=== PATIENT | female | born 1950 | race Caucasian/White ===

== ENCOUNTER → 2017-10-19 15:05 | Outpatient (CLI) | payer MEDICARE, SELFPAY ==
[2017-10-19 15:20] LABS: HCT 38.1 % (36.0-46.0); HGB 13.3 g/dL (12.0-15.5); Mean Corp. HGB Concentration 34.9 g/dL (32.0-36.0); Mean Corpuscular Volume 94.5 fL (80-95); Mean Platelet Volume 9.6 fL (8.0-11.0); Platelet Count 104 x1000/uL (130-400); RBC 4.03 m/cumm (4.00-5.20); RBC Distribution Width 13.3 % (11.7-14.6); White Blood Cell Count 7.25 k/cumm (4.4-10.8)
[2017-10-19 16:27] LABS: ESR 38 MM/HR (0-30)
[2017-10-19 16:48] LABS: ALT 22 U/L (12-78); AST 25 U/L (15-37); Albumin 3.8 g/dL (3.4-5.0); Alkaline Phosphatase 51 U/L (46-116); Anion Gap 9.6 mmol/L (3-11); BUN 12 mg/dL (7-18); Bilirubin, Total 0.5 mg/dL (0.2-1.0); C-Reactive Protein 0.05 mg/dL (0.0-0.3); CO2 26.4 mmol/L (21.0-32.0); CREATININE 0.92 mg/dL (0.55-1.02); Calcium 9.4 mg/dL (8.5-10.1); Chloride 103 mmol/L (98-107); Glucose 113 mg/dL (70-100); Potassium 3.9 mmol/L (3.5-5.1); Sodium 139 mmol/L (136-145); Total Protein 8.2 g/dL (6.4-8.2)
== END ==
PROVIDERS: PCP Physician Assistant Medical; Visit Provider Internal Medicine Rheumatology
DX: L40.50 Arthropathic psoriasis, unspecified (principal); Z79.899 Other long term (current) drug therapy
CPT/HCPCS: 36415; 80053; 85027; 85652; 86140

== ENCOUNTER 2017-11-02 11:27 | Outpatient (REF) | payer MEDICARE, SELFPAY | END 2017-11-02 11:47 | LOC: NCHCN 11:27 | PROVIDERS: PCP Physician Assistant Medical; Visit Provider Physician Assistant Medical | DX: R35.0 Frequency of micturition (principal) | CPT/HCPCS: 87077; 87086; 87186 ==

== ENCOUNTER 2018-01-27 12:12 | Emergency (ER) | payer MEDICARE, SELFPAY ==
[2018-01-27] VITALS (36 sets, daily range): BP systolic 109–148; BP diastolic 57–112; PULSE 79–99; RESP 10–32; TEMP 36.5; O2SAT 95–99
--- NOTE | 2018-01-27 12:18 | W.ED.GENAD ---
Discharge Plan Disposition Patient Disposition: AGAINST MEDICAL ADVICE Condition: Stable Discharge Details Chief Complaint: Chest Pain Clinical Impression: Chest pain Primary Care Provider: Ester Hu ED Provider: Wilder Ferreira Home Meds and New Rx's Prescriptions: Continue metformin 500 MG tablet 1,000 mg PO DAILY RF: 0 lovastatin 40 MG tablet 40 mg PO DAILY RF: 0 tramadol 50 MG tablet 50 mg PO DIRECTED RF: 0 sennosides-docusate sodium [Senokot-S] 1 EACH tablet 1 tab-cap PO BID RF: 0 blood sugar diagnostic [FreeStyle Lite Strips] 1 EACH strip 1 ea Miscellaneous DIRECTED RF: 0 levothyroxine [Levoxyl] 75 MCG tablet 0.075 mcg PO DAILY RF: 0 paroxetine HCl [Paxil] 20 MG tablet 20 mg PO DAILY RF: 0 lansoprazole 15 MG capsule,delayed release(DR/EC) 30 mg PO BID RF: 0 nitroglycerin [Nitrostat] 0.4 MG tablet, sublingual 0.4 mg Sublingual ONCE RF: 0 aspirin [Aspirin Low-Strength] 81 MG tablet,chewable 81 mg PO DAILY RF: 0 FREESTYLE GLUCOMETER RF: 0 blood sugar diagnostic [FreeStyle Lite Strips] 1 EACH strip 1 ea Miscellaneous TID RF: 0 calcium carbonate-vitamin D3 [Calcium 500 + D] 1 EACH tablet 1 ea PO DAILY RF: 0 cholecalciferol (vitamin D3) 1,000 UNIT capsule 1,000 unit PO DAILY RF: 0 clobetasol-emollient 15 GM cream 15 gm Topical twice a week Qty: 1 RF: 5 levetiracetam [Keppra] 250 MG tablet 250 mg PO BID Qty: 180 RF: 3 gabapentin 100 MG capsule 300 mg PO TID RF: 0 insulin aspart U-100 [Novolog Flexpen U-100 Insulin] 300 UNITS/3 ML insulin pen SQ DIRECTED RF: 0 adalimumab [Humira Pen] 40 MG/0.8 ML pen injector kit 40 mg SQ Q14D RF: 0 Discharge Instructions Instructions: Chest Pain (ED) Additional Instructions: Please return immediately to the emergency department if you develop any new or worsening symptoms or if you become otherwise concerned. You have elected to leave the emergency department AGAINST MEDICAL ADVICE. The risks of doing so upper and permanent disability. If you change your mind, you may return to the emergency department at any time. It is extremely important that you make an appointment to be seen by near eastern archaeology lecturer and by your primary care doctor as soon as possible in follow-up for this visit. Referrals: Ester Hu PA [Primary Care Provider] - Jose Loja MD [MD CONSULTING PHYSICIAN] - Discharge Data Discharge Date/Time-TO BE ENTERED AT DEPARTURE: 01/27/18 16:55 Medical Decision Making <Milly Latham MD - Last Filed: 01/28/18 22:43> Shereen Vega is a 67-year-old woman with history of rheumatoid arthritis, diabetes, hypertension, high cholesterol, hypothyroidism presenting to the emergency department with intermittent exertional chest pain over the past week, currently pain-free. On exam patient is well and nontoxic appearing. Benign cardiopulmonary exam. No peripheral edema. Concern for ACS versus PE versus muscular skeletal versus other. Exam/history not consistent with acute aortic pathology, sepsis. Plan for EKG, chest x-ray, screening labs, telemetry. Patient took aspirin this morning, will hold for now. EKG and chest x-ray okay. Labs show magnesium 1.5. Patient reports that she has chronically low magnesium and does not want to take supplementation at this point. 15:00: Patient has had no episodes of chest pain since being in the emergency department. She reports that she feels in her usual state of health. Given patient with significant risk factors and concerning nature of pain, plan for admission for further evaluation. Patient reports that she does not like to be hospitalized and declines admission. I had a lengthy discussion with patient regarding risks of leaving AGAINST MEDICAL ADVICE including and permanent disability. Patient continues to decline admission. She does agree to second troponin and second EKG. Patient signed out to Viktor Ferreira at time of shift change with second troponin pending, anticipate discharge home AGAINST MEDICAL ADVICE. I had a lengthy discussion with the patient prior to signout regarding return to emergency department precautions, that she may return to the emergency department at any time should she change her mind, and importance of outpatient follow-up with her PCP and cardiology for further evaluation. She continues to wish to leave the emergency department AGAINST MEDICAL ADVICE and verbalized understanding of the risks of and permanent disability. She is amenable to the outpatient follow-up plan. Patient placed on care management list for outpatient follow-up with cardiology and primary care doctor soon as possible. Medical Records Medical records reviewed: Yes I reviewed the patient's medical records. Imaging Data Radiologic Study: Attestation: I personally reviewed and interpreted this imaging study as follows: Radiologist's impression: PA AND LATERAL CHEST: Comparison is made with 09/06/17. The heart size is normal. The aorta is mildly tortuous. The lungs appear clear. No infiltrate, effusion or pneumothorax is seen. The visualized portions of the upper abdomen are unremarkable. The spine shows degenerative disc changes. IMPRESSION: No acute abnormality. Lab Data Lab results reviewed: Yes I reviewed the patient's lab results. Laboratory Tests Range/Units 01/27/18 01/27/18 01/27/18 12:45 12:45 12:45 WBC (4.4-10.8) k/cumm 7.14 RBC (4.00-5.20) m/cumm 4.26 Hgb (12.0-15.5) g/dL 14.1 Hct (36.0-46.0) % 40.8 MCV (80-95) fL 95.8 H MCH (27.0-33.0) pg 33.1 H MCHC (32.0-36.0) g/dL 34.6 RDW (11.7-14.6) % 13.7 Plt Count (130-400) x1000/uL 102 L MPV (8.0-11.0) fL 10.1 Immature Gran % See Differential Neutrophils % 38.0 Lymphocytes % 33.0 Monocytes % 4.0 Eosinophils % 20.0 Basophils % 1.0 Absolute Neutrophils (1.2-6.7) k/cumm 2.78 Band Neutrophils % 1.0 Absolute Lymphocytes (1.2-3.4) k/cumm 2.57 Absolute Monocytes (0.11-0.7) k/cumm 0.29 Absolute Eosinophils (0.0-0.7) k/cumm 1.43 H Absolute Basophils (0.0-0.2) k/cumm 0.07 Differential Comment Manual differential Atypical Lymphocytes 3.0 D-Dimer (<500) ng/mlFEU 266 Sodium (136-145) mmol/L 141 Potassium (3.5-5.1) mmol/L 3.8 Chloride (98-107) mmol/L 102 Carbon Dioxide (21.0-32.0) mmol/L 31.3 Anion Gap (3-11) mmol/L 7.7 BUN (7-18) mg/dL 14 Creatinine (0.55-1.02) mg/dL 0.75 Estimated GFR/1.73 m2 (mL/min/1.73m2) >= 60.00 Glucose (70-100) mg/dL 119 H Calcium (8.5-10.1) mg/dL 9.5 Magnesium (1.8-2.4) mg/dL Total Bilirubin (0.2-1.0) mg/dL 0.4 AST (15-37) U/L 19 ALT (12-78) U/L 23 Alkaline Phosphatase (46-116) U/L 52 Troponin I (0.00-0.06) ng/mL < 0.02 Total Protein (6.4-8.2) g/dL 8.5 H Albumin (3.4-5.0) g/dL 3.9 TSH (0.358-3.74) uIU/mL 3.41 Range/Units 01/27/18 12:45 WBC (4.4-10.8) k/cumm RBC (4.00-5.20) m/cumm Hgb (12.0-15.5) g/dL Hct (36.0-46.0) % MCV (80-95) fL MCH (27.0-33.0) pg MCHC (32.0-36.0) g/dL RDW (11.7-14.6) % Plt Count (130-400) x1000/uL MPV (8.0-11.0) fL Immature Gran % Neutrophils % Lymphocytes % Monocytes % Eosinophils % Basophils % Absolute Neutrophils (1.2-6.7) k/cumm Band Neutrophils % Absolute Lymphocytes (1.2-3.4) k/cumm Absolute Monocytes (0.11-0.7) k/cumm Absolute Eosinophils (0.0-0.7) k/cumm Absolute Basophils (0.0-0.2) k/cumm Differential Comment Atypical Lymphocytes D-Dimer (<500) ng/mlFEU Sodium (136-145) mmol/L Potassium (3.5-5.1) mmol/L Chloride (98-107) mmol/L Carbon Dioxide (21.0-32.0) mmol/L Anion Gap (3-11) mmol/L BUN (7-18) mg/dL Creatinine (0.55-1.02) mg/dL Estimated GFR/1.73 m2 (mL/min/1.73m2) Glucose (70-100) mg/dL Calcium (8.5-10.1) mg/dL Magnesium (1.8-2.4) mg/dL 1.5 L Total Bilirubin (0.2-1.0) mg/dL AST (15-37) U/L ALT (12-78) U/L Alkaline Phosphatase (46-116) U/L Troponin I (0.00-0.06) ng/mL Total Protein (6.4-8.2) g/dL Albumin (3.4-5.0) g/dL TSH (0.358-3.74) uIU/mL ECG Data Attestation: I personally reviewed and interpreted this ECG (s) as follows: Interpretation: Normal sinus rhythm at 93 with left axis, no STEMI, nondiagnostic EKG EKG #2 shows normal sinus rhythm at 86 with borderline left axis, no STEMI, unchanged from prior HPI <Milly Latham MD - Last Filed: 01/28/18 22:43> General Mode of arrival: ambulatory. Date/Time Provider Initiated Documentation: 01/27/18 12:18. Limitations to Documentation: no limitations. Information obtained by: patient, family, RN notes reviewed and old records reviewed. HPI Narrative: Shereen Vega is a 67-year-old woman with history of seizure disorder, rheumatoid arthritis, hyperlipidemia, hypothyroidism, yea-xapuoth-ousmuuksy diabetes, hypertension presenting to the emergency department chest pain. Patient reports that over the past week she has had new exertional chest pain. She reports the pain is a burning sensation over her left chest that does not radiate. It is improved with rest. She reports that she has had a few episodes that began at rest and resolved spontaneously. Exertion consists of walking in her home. Patient reports that she does have some mild shortness of breath that accompanies to chest pain. She does not have shortness of breath or chest pain currently in the emergency department. She reports chronic pain from her rheumatoid arthritis that is unchanged and mild dry cough over the past few days; there are no other new symptoms. Patient reports that she recently drove to [place], but denies any other travel. Has been eating and drinking as usual. No recent illnesses. Patient had a cardiac catheterization in 2009 that showed 80% stenosis of a small vessel that was not stented. She also had a stress test in 2015 showing moderate risk for cardiac disease. Patient scheduled PCP appointment for this chest pain, and was sent from there to the emergency department. Related Data Home Medications Medication Instructions Recorded Confirmed lovastatin 40 mg PO DAILY tab-cap NS 05/16/13 01/27/18 metformin 1,000 mg PO DAILY tab-cap NS 05/16/13 01/27/18 tramadol 50 mg PO DIRECTED NS 05/16/13 01/27/18 gabapentin 300 mg PO TID 06/15/13 01/27/18 Freestyle Glucometer 05/22/14 07/02/14 aspirin [Aspirin Low-Strength] 81 mg PO DAILY tab-cap 05/22/14 01/27/18 blood sugar diagnostic [FreeStyle strip 05/22/14 09/06/17 Lite Strips] lansoprazole 30 mg PO BID tab-cap 05/22/14 01/27/18 levothyroxine [Levoxyl] 0.075 mcg PO DAILY tab-cap 05/22/14 01/27/18 nitroglycerin [Nitrostat] 0.4 mg SUBLINGUAL ONCE tab-cap 05/22/14 01/27/18 paroxetine HCl [Paxil] 20 mg PO DAILY tab-cap 05/22/14 01/27/18 sennosides-docusate sodium 1 tab-cap PO BID tab-cap 05/22/14 01/27/18 [Senokot-S] blood sugar diagnostic [FreeStyle strip 06/12/14 09/06/17 Lite Strips] adalimumab [Humira Pen] 40 mg SQ Q14D 05/03/16 01/27/18 insulin aspart U-100 [Novolog See Protocol SQ DIRECTED 05/03/16 01/27/18 Flexpen U-100 Insulin] calcium carbonate-vitamin D3 1 ea PO DAILY 09/02/16 01/27/18 [Calcium 500 + D] cholecalciferol (vitamin D3) 1,000 unit PO DAILY 10/01/16 01/27/18 clobetasol-emollient 15 gm TOPICAL twice a week #1 tube 01/01/17 01/27/18 levetiracetam [Keppra] 250 mg PO BID #180 tab 07/26/17 01/27/18 Previous Rx's Medication Instructions Recorded clobetasol-emollient 15 gm TOPICAL twice a week #1 tube 01/01/17 levetiracetam [Keppra] 250 mg PO BID #180 tab 07/26/17 Allergies Allergy/AdvReac Type Severity Reaction Status Date / Time Penicillins Allergy Unknown Unverified 09/06/17 14:51 quinine Allergy Unknown Unverified 09/06/17 14:51 sulfasalazine Allergy Unknown Unverified 09/06/17 14:51 erythromycin base AdvReac Intermediate VOMITING Unverified 09/06/17 14:51 hydroxychloroquine sulfate AdvReac Intermediate VOMITING Unverified 09/06/17 14:51 [From Plaquenil] Review of Systems <Milly Latham MD - Last Filed: 01/28/18 22:43> Review of Systems Constitutional: denies fevers Eyes: denies eye pain ENT: denies facial pain, dental pain, sore throat Cardiovascular: denies edema, reports chest pain Respiratory: denies cough, reports SOB GI: denies abdominal pain, vomiting, diarrhea : denies flank pain MSK: denies back pain, neck pain, reports chronic arthralgias Skin: denies rash Neuro: denies headaches, lightheadedness, weakness Exam <Milly Latham MD - Last Filed: 01/28/18 22:43> Narrative Exam Narrative: Constitutional: well and [id number], pleasant, conversing normally HENT: head atraumatic, normocephalic normal inspection, mucous membranes moist Eyes: conjunctiva normal, sclera normal, pupils 3mm b/l Neck: no stridor, normal ROM, trachea midline Chest: normal inspection Resp: normal work of breathing, LCTAB Cardio: normal rate, normal rhythm, no murmur appreciated GI: abdomen soft, non-tender, non-distended Back: normal inspection, no rash Skin: warm, dry, normal color, no rash Neuro: alert, not altered, grossly non-focal, normal tone Ext: no edema Psych: normal mood, normal affect, normal behavior Sign Out <Milly Latham MD - Last Filed: 01/28/18 22:43> Sign Out Data: Sign Out Comment: Patient signed out to delay any with second troponin pending, anticipate discharge to home AGAINST MEDICAL ADVICE based on my repeated discussion with the patient, however patient has verbalized understanding that she may change her mind at any time and decide to stay for admission. Last updated by Milly Latham MD at 01/27/18 15:47 Post-Handoff Eval: Review of second troponin also shows no elevation. Thoroughly discussed with patient recommendation to have her admitted due to high risk cardiac pain which she again stated that she would prefer to go home and follow-up on outpatient basis. Previous provider ordered outpatient stress testing and patient was again informed that she may return at any point for any new or significant worsening of symptoms which she denies any change in her condition in the emergency department here. After thorough discussion of need to return patient stated she was ready to be discharged. Patient signed AMA paperwork. After discussion of diagnosis and plan of care patient has no further needs, questions, or concerns and states clear understanding to return to the emergency department for any worsening symptoms.
--- NOTE | 2018-01-27 12:35 | DI.RAD_ITS ---
SYMPTOM/DIAGNOSIS: CHEST PAIN PA AND LATERAL CHEST: Comparison is made with 09/06/17. The heart size is normal. The aorta is mildly tortuous. The lungs appear clear. No infiltrate, effusion or pneumothorax is seen. The visualized portions of the upper abdomen are unremarkable. The spine shows degenerative disc changes. IMPRESSION: No acute abnormality.
[2018-01-27 13:06] LABS: HCT 40.8 % (36.0-46.0); HGB 14.1 g/dL (12.0-15.5); Mean Corp. HGB Concentration 34.6 g/dL (32.0-36.0); Mean Corpuscular Hemoglobin 33.1 pg (27.0-33.0); Mean Corpuscular Volume 95.8 fL (80-95); Mean Platelet Volume 10.1 fL (8.0-11.0); Platelet Count 102 x1000/uL (130-400); RBC 4.26 m/cumm (4.00-5.20); RBC Distribution Width 13.7 % (11.7-14.6); White Blood Cell Count 7.14 k/cumm (4.4-10.8)
[2018-01-27 13:16] LABS: Magnesium 1.5 mg/dL (1.8-2.4)
[2018-01-27 13:29] LABS: Absolute Basophil Count 0.07 k/cumm (0.0-0.2); Absolute Eosinophil Count 1.43 k/cumm (0.0-0.7); Absolute Lymphocyte Count 2.57 k/cumm (1.2-3.4); Absolute Monocyte Count 0.29 k/cumm (0.11-0.7); Absolute Neutrophil Count 2.78 k/cumm (1.2-6.7); Diff Comment Manual Differential
[2018-01-27 13:34] LABS: ALT 23 U/L (12-78); AST 19 U/L (15-37); Albumin 3.9 g/dL (3.4-5.0); Alkaline Phosphatase 52 U/L (46-116); Anion Gap 7.7 mmol/L (3-11); BUN 14 mg/dL (7-18); Bilirubin, Total 0.4 mg/dL (0.2-1.0); CO2 31.3 mmol/L (21.0-32.0); CREATININE 0.75 mg/dL (0.55-1.02); Calcium 9.5 mg/dL (8.5-10.1); Chloride 102 mmol/L (98-107); Glucose 119 mg/dL (70-100); Potassium 3.8 mmol/L (3.5-5.1); Sodium 141 mmol/L (136-145); TSH (W/Ref FT4) 3.41 uIU/mL (0.358-3.74); Total Protein 8.5 g/dL (6.4-8.2)
[2018-01-27 13:35] LABS: Troponin I < 0.02 ng/mL (0.00-0.06)
[2018-01-27 13:39] LABS: D-Dimer 266 ng/mlFEU (<500)
[2018-01-27 16:17] LABS: Troponin I < 0.02 ng/mL (0.00-0.06)
== END 2018-01-27 16:55 | disposition left against medical advice (07) ==
PROVIDERS: Student in an Organized Health Care Education/Training Program; Emergency Provider Nurse Practitioner Family; PCP Physician Assistant Medical
DX: R07.9 Chest pain, unspecified (principal); I10 Essential (primary) hypertension; E11.9 Type 2 diabetes mellitus without complications; Z79.4 Long term (current) use of insulin; Z53.29 Procedure and treatment not carried out because of patient's decision for other reasons
CPT/HCPCS: 36415; 80053; 93005; 99284; 71046; 83735; 84443; 84484; 85025; 85379; 93010

== ENCOUNTER 2018-01-31 00:08 | Outpatient (CLI) | payer MEDICARE, SELFPAY ==
--- NOTE | 2018-01-31 08:15 | MERGEMPI_ITS ---
*[facility]* *[facility]* [address] [place] [address] Myocardial Perfusion Imaging - SPECT Regadenoson Date of study: 01/31/2018 *PATIENT PRESENTATION* Height: 152.4cm (60in) Blood Pressure: Weight: 53.2kg (117lb) BSA: 1.51m^2 Referring physician: Guanako Stovall MD Ordering physician: Milly Latham Impressions: Normal perfusion by Tc99m Sestamibi Imaging. Summary: 1. Myocardial perfusion imaging: No myocardial perfusion defects noted. 2. The calculated left ventricular ejection fraction after stress: 78%. No left ventricular regional motion abnormality. Indication: R07.9. History: Patient's presenting symptoms: asymptomatic. REASON FOR VISIT: PATIENT PRESENTED TO THE EMERGENCY ROOM ON 01/27/18 WITH COMPLAINTS OF NEW EXERTIONAL CHEST PAIN OVER THE PAST WEEK. PAIN IS DESCRIBED 3/10 NONRADIATING BURNING/TIGHTNESS SENSATION OVER CHEST WHILE WALKING IN HER HOUSE OR LIFTING, RESOLVING WITH REST AFTER 5-10 MINUTES. CHEST PAIN IS ASSOCIATED WITH MILD SHORTNESS OF BREATH. TROPONINS NEGATIVE X 2, EKG DISPLAYING SINUS RHYTHM AND UNCHANGED ON RECHECK. PATIENT DID NOT WISH TO BE ADMITTED TO HOSPITAL FOR FURTHER EVALUATION. PAST MEDICAL HISTORY: ANXIETY, SEIZURE DISORDER, DIABETES MELLITUS, DIABETIC NEUROPATHY, ESSENTIAL HYPERTENSION, HYPERLIPIDEMIA, HYPOTHYROIDISM, PSORIASIS, RHEUMATOID ARTHRITIS, SPINAL STENOSIS IN THE CERVICAL REGION. CARDIAC CATHETERIZATION IN 2009 THAT SHOWED 80% OF STENOSIS OF A SMALL VESSEL, NOT STENTED. 01/06/16 MPI STRESS TEST: NORMAL STUDY AFTER PHARMACOLOGIC STRESS. LVEF AFTER STRESS: 66%. 07/23/14 ECHOCARDIOGRAM: ESTIMATED EF 60%. MILD TO MODERATE REGURGITATION OF AORTIC AND MITRAL VALVES. FAMILY HISTORY: BROTHER - TRIPLE CORONARY BIPASS. MOTHER - FROM MYOCARDIAL INFARCTION. FATHER - DIABETES, FROM MYOCARDIAL INFARCTION. SMOKING STATUS: NEVER SMOKER. EXERCISE ROUTINE: NONE. Risk factors: Family history of coronary artery disease. Hypertension. Diabetes mellitus. Dyslipidemia. Cholesterol: 175mg/dl. HDL: 39mg/dl. LDL: 92mg/dl. Triglycerides: 238mg/dl. ALLERGIES: PENICILLINS, QUININE, SULFASALAZINE, ERYTHROMYCIN BASE, HYDROXYCHLOROQUINE SULFATE. MEDICATIONS: METFORMIN 1,000 MG, DAILY. LOVASTATIN 40 MG, DAILY. TRAMADOL 50 MG, DIRECTED. SENNOSIDES-DOCUSATE SODIUM 1 TAB, BID. LEVOTHYROXINE 75 MCG, DAILY. PAROXETINE 20 MG, DAILY. LANSOPRAZOLE 30 MG, BID. NITROGLYCERIN 0.4 MG, ONCE. ASPIRIN 81 MG, DAILY. CALCIUM CARBONATE - VITAMIN D3, 1 EACH, DAILY. CHOLECALCIFEROL 1,000 UNITS, DAILY. LEVETIRACETAM 250 MG, BID. GABAPENTIN 300 MG, TID. INSULIN ASPART DIRECTED. ADALIMUMAB 40 MG, Q14D. Imaging Technique: Protocol: Regadenoson. Acquisition: Gated SPECT; 1 day - rest/stress. The patient was imaged in the supine position. Attenuation correction used. Isotope administration: - Rest. Tc[99m]-sestamibi. Dose: 10.3mCi. Date: 01/31/2018. Injection time: 08:45 AM. Injection to stress time: 00:45. - Stress. Tc[99m]-sestamibi. Dose: 32.7mCi. Date: 01/31/2018. Injection time: 10:00 AM. 1-2 min before end of exercise Baseline ECG: SINUS RHYTHM WITH OCCASIONAL PREMATURE VENTRICULAR CONTRACTION. HEART RATE 85 BPM. Stress protocol: +--------+---+ + + + + !Stage !HR !BP (mmHg) !Rhythm !Symptoms !Comments ! +--------+---+ + + + + !Baseline!85 !122/74 (90) !Sinus rhythm, ! ! ! ! ! ! !occasional PVC's! ! ! +--------+---+ + + + + !1 min !100!142/86 (105)! !Moderate !Inject ! ! ! ! ! !dyspnea !Regadenoson. ! +--------+---+ + + + + !3 min !111!144/80 (101)! !Mild chest ! ! ! ! ! ! !discomfort, ! ! ! ! ! ! !moderate ! ! ! ! ! ! !dyspnea, ! ! ! ! ! ! !Chest ! ! ! ! ! ! !heaviness ! ! +--------+---+ + + + + !5 min !---! ! !Resolved ! ! +--------+---+ + + + + !6 min !108!136/72 (93) ! ! ! ! +--------+---+ + + + + !7 min !---! !Ventricular ! ! ! ! ! ! !couplets ! ! ! +--------+---+ + + + + !8 min !---! !Ventricular ! ! ! ! ! ! !couplets ! ! ! +--------+---+ + + + + !9 min !103!132/70 (91) ! ! ! ! +--------+---+ + + + + !--------!98 !118/64 (82) ! ! ! ! +--------+---+ + + + + * Stress results: The rate-pressure product for the peak heart rate and blood pressure was 67270go Hg/min. Stress ECG: STRESS TEST ENDED IN 12MIN 29SEC WHEN ALL SYMPTOMS OF REGADENOSON INJECTION SUBSIDED AND VITAL SIGNS RETURNED TO BASELINE. TACHYCARDIC RESPONSE TO REGADENOSON INJECTION (HR MAX 112 BPM). HYPERTENSIVE RESPONSE TO INJECTION (122/74 AT BASELINE, 144/80 AT MAX). OCCASIONAL PVC NOTED AT BASELINE AND THROUGHOUT TESTING. PVC COUPLET DURING MINUTE 7 POST INJECTION, AND AGAIN AT MINUTE 8 POST INJECTION. PATIENT REPORTED CHEST HEAVINESS AT 3 MINUTE POST INJECTION, AFTER REPORTING DYSPNEA. PATIENT REPORTS THE CHEST HEAVINESS IS SIMILAR TO THE INITIAL CHEST PAINS THAT WERE EXPERIENCED AT HOME. NO SIGNIFICANT ST SEGMENT CHANGES NOTED. Myocardial perfusion: Imaging information: gated. No myocardial perfusion defects noted. Ventricular Function (Wall Motion): The calculated left ventricular ejection fraction after stress: 78%. No left ventricular regional motion abnormality. Study data: Guanako Stovall MD supervised and was readily available during the procedure. This study was interpreted by [facility]. Study status: Routine. Consent: The risks, benefits, and alternatives to the procedure were explained to the patient and informed consent was obtained. Procedure: Initial setup. A baseline ECG was recorded. Surface ECG leads and manual cuff blood pressure measurements were monitored. Heart sounds: Normal. Lung sounds: Normal. Regadenoson stress test. Stress testing was performed, with regadenoson by intravenous bolus, for a total dose of 0.4mgover 10.00sec, followed by a 5ml saline flush. The infusion was terminated due to per protocol. Study completion: All catheters inserted during the procedure were removed. The patient tolerated the procedure well and was discharged from the lab. Discharge: The patient left the laboratory in stable condition. Birthdate: Patient birthdate: 1950. Sex: Gender: female. Study date: Study date: 01/31/2018. Study time: 12:30 PM. Electronically signed by Guanako Stovall MD 01/31/2018 11:49
[2018-01-31] MEDS: Regadenoson 0.4 MG/5 ML SYR IVP (10:34)
== END 2018-01-31 00:28 ==
PROVIDERS: PCP Physician Assistant Medical; Visit Provider Student in an Organized Health Care Education/Training Program
DX: R07.9 Chest pain, unspecified (principal); R06.02 Shortness of breath; I10 Essential (primary) hypertension; E11.9 Type 2 diabetes mellitus without complications; E78.5 Hyperlipidemia, unspecified; E03.9 Hypothyroidism, unspecified; Z79.4 Long term (current) use of insulin; Z82.49 Family history of ischemic heart disease and other diseases of the circulatory system
CPT/HCPCS: 78452; 93016; 93018; 93017; J2785

== ENCOUNTER 2018-04-07 17:12 | Outpatient (REF) | payer MEDICARE, SELFPAY ==
[2018-04-07 21:11] LABS: Magnesium 1.4 mg/dL (1.8-2.4)
== END 2018-04-07 17:32 ==
LOC: NCHCN 17:12
PROVIDERS: PCP Physician Assistant Medical; Visit Provider Nurse Practitioner Family
DX: E83.42 Hypomagnesemia (principal)
CPT/HCPCS: 83735

== ENCOUNTER 2018-04-20 10:25 | Outpatient (CLI) | payer MEDICARE, SELFPAY ==
[2018-04-20 14:21] LABS: HCT 38.4 % (36.0-46.0); HGB 13.1 g/dL (12.0-15.5); Mean Corp. HGB Concentration 34.1 g/dL (32.0-36.0); Mean Corpuscular Hemoglobin 32.3 pg (27.0-33.0); Mean Corpuscular Volume 94.8 fL (80-95); Mean Platelet Volume 10.1 fL (8.0-11.0); Platelet Count 116 x1000/uL (130-400); RBC 4.05 m/cumm (4.00-5.20); RBC Distribution Width 13.5 % (11.7-14.6); White Blood Cell Count 7.26 k/cumm (4.4-10.8)
[2018-04-20 14:26] LABS: ALT 18 U/L (12-78); AST 18 U/L (15-37); Albumin 3.4 g/dL (3.4-5.0); Alkaline Phosphatase 57 U/L (46-116); Anion Gap 7.1 mmol/L (3-11); BUN 13 mg/dL (7-18); Bilirubin, Total 0.3 mg/dL (0.2-1.0); C-Reactive Protein 0.41 mg/dL (0.0-0.3); CO2 32.9 mmol/L (21.0-32.0); CREATININE 0.83 mg/dL (0.55-1.02); Calcium 9.4 mg/dL (8.5-10.1); Chloride 101 mmol/L (98-107); Glucose 147 mg/dL (70-100); Potassium 3.9 mmol/L (3.5-5.1); Sodium 141 mmol/L (136-145); Total Protein 8.5 g/dL (6.4-8.2)
[2018-04-20 15:41] LABS: ESR 38 MM/HR (0-30)
[2018-04-21 05:05] LABS: Vitamin D 25 Total 50.9 ng/ml (30-100)
== END 2018-04-20 10:45 ==
PROVIDERS: PCP Physician Assistant Medical; Visit Provider Internal Medicine Rheumatology
DX: L40.50 Arthropathic psoriasis, unspecified (principal); Z79.899 Other long term (current) drug therapy; E55.9 Vitamin D deficiency, unspecified
CPT/HCPCS: 36415; 80053; 82306; 85027; 85652; 86140

== ENCOUNTER 2018-05-10 13:55 | Outpatient (REF) | payer MEDICARE, SELFPAY ==
[2018-05-10 22:17] LABS: BUN 9 mg/dL (7-18); CREATININE 0.72 mg/dL (0.55-1.02); Chloride 102 mmol/L (98-107); Cholesterol 181 mg/dL (50-200); Glucose 136 mg/dL (70-100); HDL Cholesterol 56 mg/dL (40-60); LDL CHOLESTEROL 101 mg/dL (<100); Magnesium 1.6 mg/dL (1.8-2.4); Sodium 141 mmol/L (136-145); Triglyceride 170 mg/dL (30-150)
== END 2018-05-10 14:15 ==
LOC: NCHCN 13:55
PROVIDERS: PCP Physician Assistant Medical; Visit Provider Nurse Practitioner Family
DX: E78.5 Hyperlipidemia, unspecified (principal); E83.42 Hypomagnesemia
CPT/HCPCS: 80048; 80061; 83721; 83735

== ENCOUNTER 2018-07-25 01:05 | Outpatient (CLI) | payer MEDICARE, SELFPAY ==
--- NOTE | 2018-07-25 13:30 | DI.MAMMO_ITS ---
SYMPTOMS/DIAGNOSIS: SCREENING, Z12.39, [facility], Z00.00 MAMMOGRAM: Mammograms were interpreted according to the usual protocol including computer analysis with CAD system, tomosynthesis and C view imaging. The breasts are of moderate density with fairly symmetrical distribution of fibroglandular tissue. No dominant mass or clumped microcalcification is identified in either breast. Current examination is compared with previous examinations including January 2017 and there has been no gross interval change in appearance in comparison with the previous studies. CONCLUSION: No specific evidence of malignancy at this time. Routine screening examinations are suggested at yearly intervals in this age group according to the ACS/ACR guidelines. Category 1, breast density category B. SA ASSESSMENT OF FINDINGS: Negative. Category 1. Patient will receive a letter notifying them of these results. BI-RADS category B. There are scattered areas of fibroglandular density.
== END 2018-07-25 01:25 ==
PROVIDERS: PCP Physician Assistant Medical; Visit Provider Nurse Practitioner Family
DX: Z12.31 Encounter for screening mammogram for malignant neoplasm of breast (principal)
CPT/HCPCS: 77063; 77067

== ENCOUNTER → 2018-10-19 09:55 | Outpatient (BNVA) | payer MEDICARE, SELFPAY | PROVIDERS: PCP Physician Assistant Medical; Referring Provider Nurse Practitioner Family; Visit Provider Nurse Practitioner Adult Health | DX: G56.23 Lesion of ulnar nerve, bilateral upper limbs (principal); R29.6 Repeated falls; M06.9 Rheumatoid arthritis, unspecified; E11.42 Type 2 diabetes mellitus with diabetic polyneuropathy; Z79.4 Long term (current) use of insulin; I10 Essential (primary) hypertension | CPT/HCPCS: 95911; 99203; 99214 ==

== ENCOUNTER 2018-11-08 15:21 | Outpatient (REF) | payer MEDICARE, SELFPAY ==
[2018-11-08 19:27] LABS: Magnesium 1.5 mg/dL (1.8-2.4)
== END 2018-11-08 15:41 ==
LOC: NCHCN 15:21
PROVIDERS: PCP Nurse Practitioner Family; Visit Provider Nurse Practitioner Family
DX: E83.42 Hypomagnesemia (principal); E11.8 Type 2 diabetes mellitus with unspecified complications
CPT/HCPCS: 83735

== ENCOUNTER 2019-01-06 07:54 | Outpatient (CLI) | payer MEDICARE, SELFPAY ==
[2019-01-06] MEDS: Omnipaque 350 MG/ML 100 ML BTL IJ (11:27)
--- NOTE | 2019-01-06 11:30 | DI.CT_ITS ---
EXAM: CT CHEST W CLINICAL HISTORY: COUGH X 7 MONTHS R05 TECHNIQUE: Imaging Protocol: Axial computed tomography images with coronal and sagittal reformatted images were created and reviewed CONTRAST MATERIAL: Intravenous: Omnipaque 350 Contrast volume:70 mL contrast route:IV - Oral: No COMPARISON: CHEST WITH CONTRAST from 01/20/2016 FINDINGS: Tracheobronchial tree: Patent where visualized. Mediastinum and Laila: No dominant adenopathy or fluid collection. Pulmonary parenchyma: No consolidation or dominant measurable mass. There is scarring in the lung bas es. Pleura: No effusion or pneumothorax. Heart/Aorta: There is no change in diameter of the ascending aorta. The heart is not dilated. There are coronary artery calcifications present. No pericardial effusion is present. Upper abdomen: There is diffuse fatty infiltration of the liver. Gastroesophageal varices are noted . Lymph nodes: Within normal limits. Bones: There is again seen a hemangioma in the T10 vertebral body. Degenerative changes are seen in the spine. IMPRESSION: 1. No acute pulmonary process. 2. Coronary artery calcifications. 3. Hepatic cirrhosis and upper abdominal varices. DATA REPOSITORY: All CT scans at this facility are submitted to the National Radiology Data Registry (NRDR) Dose Index Registry (DIR) with the [employer] (A[employer]). RADIATION OPTIMIZATION: All CT scans at this facility use at least one of these dose optimization te chniques: automated exposure control; mA and/or kV adjustment per patient size (includes targeted exa ms where dose is matched to clinical indication); or iterative reconstruction.
== END 2019-01-06 08:14 ==
PROVIDERS: PCP Nurse Practitioner Family; Visit Provider Nurse Practitioner Family
DX: R05 Cough (principal); J98.4 Other disorders of lung; K76.0 Fatty (change of) liver, not elsewhere classified; K74.69 Other cirrhosis of liver; I85.00 Esophageal varices without bleeding
CPT/HCPCS: 71260; J3490

== ENCOUNTER 2019-06-22 09:29 | Outpatient (REF) | payer MEDICARE, SELFPAY ==
[2019-06-22 19:01] LABS: Abs Immature Grans 0.03 k/cumm (0.0-0.09); HCT 40.1 % (36.0-46.0); HGB 13.7 g/dL (12.0-15.5); Mean Corp. HGB Concentration 34.2 g/dL (32.0-36.0); Mean Corpuscular Hemoglobin 32.5 pg (27.0-33.0); Mean Platelet Volume 11.2 fL (8.0-11.0); Platelet Count 117 x1000/uL (130-400); RBC 4.22 m/cumm (4.00-5.20); RBC Distribution Width 13.9 % (11.7-14.6); White Blood Cell Count 10.38 k/cumm (4.4-10.8)
[2019-06-22 19:32] LABS: Absolute Neutrophil Count 1.97 k/cumm (1.2-6.7)
[2019-06-22 19:33] LABS: Absolute Eosinophil Count 5.19 k/cumm (0.0-0.7); Absolute Lymphocyte Count 2.49 k/cumm (1.2-3.4); Absolute Monocyte Count 0.62 k/cumm (0.11-0.7); Atypical Lymphocytes % 1; Diff Comment Manual Differential; RBC Morphology Normal
[2019-06-22 19:38] LABS: ALT 22 U/L (14-59); AST 21 U/L (15-37); Albumin 3.9 g/dL (3.4-5.0); Alkaline Phosphatase 68 U/L (46-116); Anion Gap 6.9 mmol/L (3-11); BUN 14 mg/dL (7-18); Bilirubin, Total 0.6 mg/dL (0.2-1.0); CO2 31.1 mmol/L (21.0-32.0); Calcium 9.5 mg/dL (8.5-10.1); Calculated LDL 84 mg/dL (<100); Chloride 103 mmol/L (98-107); Cholesterol 161 mg/dL (<200); Glucose 182 mg/dL (74-106); HDL Cholesterol 46 mg/dL (40-60); Potassium 4.2 mmol/L (3.5-5.1); Sodium 141 mmol/L (136-145); TSH (W/Ref FT4) 1.16 uIU/mL (0.36-3.74); Total Protein 8.3 g/dL (6.4-8.2); Triglyceride 159 mg/dL (<150); Vitamin B12 280 pg/mL (193-986)
== END 2019-06-22 09:49 ==
LOC: NCHCN 09:29
PROVIDERS: PCP Nurse Practitioner Family; Visit Provider Nurse Practitioner Family
DX: R25.1 Tremor, unspecified (principal); E03.9 Hypothyroidism, unspecified; E78.5 Hyperlipidemia, unspecified
CPT/HCPCS: 80053; 80061; 82607; 84443; 85025

== ENCOUNTER → 2019-06-26 08:12 | Outpatient (BNVA) | payer MEDICARE, SELFPAY | PROVIDERS: PCP Nurse Practitioner Family; Referring Provider Nurse Practitioner Family; Visit Provider Psychiatry & Neurology Neurology | DX: R26.81 Unsteadiness on feet (principal); G25.0 Essential tremor; R56.9 Unspecified convulsions; E11.42 Type 2 diabetes mellitus with diabetic polyneuropathy; Z79.4 Long term (current) use of insulin; I10 Essential (primary) hypertension | CPT/HCPCS: 99214 ==

== ENCOUNTER 2019-07-28 02:28 | Outpatient (CLI) | payer MEDICARE, SELFPAY ==
--- NOTE | 2019-07-28 | DI.US_ITS ---
EXAM: US ABDOMEN CLINICAL HISTORY: CIRRHOSIS, EVALUATE FOR HCC TECHNIQUE: Ultrasound performed using standard protocol. COMPARISON: CT CT CHEST W from 01/06/2019 FINDINGS: The liver is heterogeneous and has a nodular contour consistent with the patient's known diagnosis of cirrhosis. Note is made upper abdominal varices in the portal region and there is recanalization of the umbilical vein. Spleen is grossly unremarkable. Gallbladder appears normal, no cholelithiasis common bile duct is of normal diameter. Pancreas appea rs intact as visualized. The kidneys are unremarkable with no evidence of hydronephrosis or nephrolithiasis. Abdominal aorta and IVC are of normal diameter. IMPRESSION: Hepatic cirrhosis with upper abdominal varices noted consistent with portal hypertension. portal kati ous flow was normal directional. DATA REPOSITORY:
== END 2019-07-28 02:48 ==
PROVIDERS: PCP Nurse Practitioner Family; Visit Provider Nurse Practitioner Adult Health
DX: K74.69 Other cirrhosis of liver (principal); K76.6 Portal hypertension
CPT/HCPCS: 76700

== ENCOUNTER → 2019-09-04 12:27 | Outpatient (BNVA) | payer MEDICARE, SELFPAY | PROVIDERS: PCP Nurse Practitioner Family; Referring Provider Nurse Practitioner Family; Visit Provider Nurse Practitioner Adult Health | DX: R26.81 Unsteadiness on feet (principal); G25.0 Essential tremor; E11.43 Type 2 diabetes mellitus with diabetic autonomic (poly)neuropathy; Z79.84 Long term (current) use of oral hypoglycemic drugs | CPT/HCPCS: 99213 ==

== ENCOUNTER 2019-09-12 14:07 | Outpatient (REF) | payer MEDICARE, SELFPAY ==
[2019-09-12 19:29] LABS: Bilirubin Negative (Negative); Blood Negative (Negative); Clarity Clear (Clear); Glucose 100 mg/dL (Negative); Ketones Negative (Negative); Leukocyte Esterase Trace (Negative); Nitrite Negative (Negative); Specific Gravity >= 1.030 (1.005-1.025); pH 5.5 (5-8)
[2019-09-12 19:34] LABS: Bacteria Rare HPF (Negative); Casts Negative LPF (Negative); Crystals Negative HPF (Negative); Epithelial Cells Moderate HPF (Negative); Mucus Negative (Negative); RBC 0-2 HPF (0-2)
[2019-09-12 19:35] LABS: C & S Indicated? No/Sq. Contamination
== END 2019-09-12 14:27 ==
LOC: NCHCN 14:07
PROVIDERS: PCP Nurse Practitioner Family; Visit Provider Nurse Practitioner Family
DX: E11.8 Type 2 diabetes mellitus with unspecified complications (principal); R35.0 Frequency of micturition
CPT/HCPCS: 81003; 81015

== ENCOUNTER 2019-11-16 13:14 | Outpatient (REF) | payer MEDICARE, SELFPAY ==
[2019-11-16 19:37] LABS: Anion Gap 8.8 mmol/L (3-11); BUN 10 mg/dL (7-18); C-Reactive Protein 0.16 mg/dL (0.0-0.3); CO2 28.2 mmol/L (21.0-32.0); CREATININE 0.77 mg/dL (0.55-1.02); Calcium 9.1 mg/dL (8.5-10.1); Chloride 104 mmol/L (98-107); Glucose 232 mg/dL (74-106); Magnesium 1.6 mg/dL (1.8-2.4); Potassium 3.8 mmol/L (3.5-5.1); Sodium 141 mmol/L (136-145)
[2019-11-16 20:11] LABS: ESR 44 mm/hr (0-30)
== END 2019-11-16 13:34 ==
LOC: NCHCN 13:14
PROVIDERS: PCP Nurse Practitioner Family; Visit Provider Nurse Practitioner Family
DX: E83.42 Hypomagnesemia (principal); E11.8 Type 2 diabetes mellitus with unspecified complications; M62.838 Other muscle spasm; L40.50 Arthropathic psoriasis, unspecified; I10 Essential (primary) hypertension; R79.89 Other specified abnormal findings of blood chemistry
CPT/HCPCS: 80048; 82306; 85652; 83735; 86140

== ENCOUNTER 2020-01-10 01:02 | Outpatient (CLI) | payer MEDICARE, SELFPAY ==
--- NOTE | 2020-01-10 | DI.US_ITS ---
EXAM: US THYROID CLINICAL HISTORY: THYROID DISEASE,E07.9. TECHNIQUE: Ultrasound thyroid performed using standard protocol. COMPARISON: No exams were available for comparison FINDINGS: ISTHMUS: 2 mm RIGHT LOBE: Size: 2.2 x 0.9 x 0.8 cm Echogenicity: Normal. Vascularity: Normal. Nodules: No suspicious thyroid nodules are identified. LEFT LOBE: Size: 1.9 x 0.7 x 0.5 cm Echogenicity: Normal. Vascularity: Normal. Nodules: No suspicious thyroid nodules are identified. OTHER FINDINGS: None. IMPRESSION: No suspicious thyroid nodules. DATA REPOSITORY:
== END 2020-01-10 01:22 ==
PROVIDERS: PCP Nurse Practitioner Family; Visit Provider Otolaryngology Otolaryngology/Facial Plastic Surgery
DX: E07.9 Disorder of thyroid, unspecified (principal)
CPT/HCPCS: 76536

== ENCOUNTER 2020-01-10 01:55 | Outpatient (CLI) | payer MEDICARE, SELFPAY ==
[2020-01-10 17:35] LABS: TSH (W/Ref FT4) 0.77 uIU/mL (0.36-3.74)
== END 2020-01-10 02:15 ==
PROVIDERS: PCP Nurse Practitioner Family; Visit Provider Otolaryngology Otolaryngology/Facial Plastic Surgery
DX: E07.9 Disorder of thyroid, unspecified (principal)
CPT/HCPCS: 36415; 76536; 84443

== ENCOUNTER 2020-02-20 22:39 | Outpatient (REF) | payer MEDICARE, SELFPAY ==
[2020-02-20 18:58] LABS: HCT 38.6 % (36.0-46.0); HGB 12.5 g/dL (11.2-15.7); MCH 29.2 pg (27.0-33.0); MCHC 32.4 % (32.0-36.0); MCV 90.2 fL (80-95); MPV 11.1 fL (8.0-11.0); Platelet Count 112 10^3/uL (130-400); RBC 4.28 10^6/uL (3.93-5.22); RDW 14.7 % (11.7-14.6); RDW-SD 48.3 fL; WBC 8.04 10^3/uL (4.4-10.8)
[2020-02-20 19:09] LABS: Anion Gap 9.4 mmol/L (3-11); BUN 13 mg/dL (7-18); CO2 26.6 mmol/L (21.0-32.0); CREATININE 0.84 mg/dL (0.55-1.02); Calcium 9.8 mg/dL (8.5-10.1); Chloride 103 mmol/L (98-107); Glucose 135 mg/dL (74-106); Potassium 4.1 mmol/L (3.5-5.1); Sodium 139 mmol/L (136-145)
[2020-02-21 11:07] LABS: Hemoglobin A1C 7.8 % (<5.7)
== END 2020-02-20 22:59 ==
LOC: NCHCN 22:39
PROVIDERS: PCP Nurse Practitioner Family; Visit Provider Nurse Practitioner Family
DX: E11.40 Type 2 diabetes mellitus with diabetic neuropathy, unspecified (principal); Z01.818 Encounter for other preprocedural examination
CPT/HCPCS: 80048; 85027; 83036

== ENCOUNTER 2020-02-26 07:04 | Day surgery (SDC) | payer MEDICARE, SELFPAY ==
[2020-02-26 07:09] VITALS: BP 118/74; PULSE 102; RESP 18; TEMP 36; O2SAT 94
[2020-02-26] MEDS: Tropicam./Phenyleph. (1/2.5%) 5 ML BTL OD ×3 (07:31→07:42)
[2020-02-26] MEDS: Povidone-Iodine Ophth 30 ML BTL (08:23)
[2020-02-26] MEDS: Lidocaine 2% Jelly 6 ML SYR (08:24)
[2020-02-26] MEDS: Tetracaine 0.5% 4 ML BTL OD (08:24)
[2020-02-26] MEDS: Lidocaine 1% Pres-Free 5 ML VIAL (08:29)
[2020-02-26] MEDS: Balanced Salt Soln.-PLUS 500 ML BAG (08:35)
[2020-02-26] MEDS: Duovisc Viscoelastic System EACH 1 EACH (08:38)
--- NOTE | 2020-02-26 08:53 | W.PM.DSUDISC ---
Discharge Plan Disposition Patient Disposition: HOME Condition: Good Discharge Details Attending Provider: Marquez Lucas Primary Care Provider: Maricarmen Galvan Home Meds and New Rx's Prescriptions: No Action simethicone [Gas Relief Extra Strength] 125 mg capsule 125 mg PO BID-QID PRNRF: 0 magnesium chloride 64 mg tablet extended release 64 mg PO BID RF: 0 mecobalamin (vitamin B12) 1,000 mcg tablet,chewable 1,000 mcg PO DAILY RF: 0 Januvia 25 mg tablet 25 mg PO DAILY RF: 0 metformin 500 MG tablet 1,000 mg PO DAILY RF: 0 lovastatin 40 MG tablet 40 mg PO DAILY RF: 0 levothyroxine [Levoxyl] 75 MCG tablet 0.075 mcg PO DAILY RF: 0 aspirin [Aspirin Low-Strength] 81 MG tablet,chewable 81 mg PO DAILY RF: 0 FREESTYLE GLUCOMETER RF: 0 (DME) FreeStyle Lite Strips 1 EACH strip 1 ea Miscellaneous TID RF: 0 calcium carbonate-vitamin D3 [Calcium 500 + D] 1 EACH tablet 1 ea PO DAILY RF: 0 cholecalciferol (vitamin D3) 1,000 UNIT capsule 1,000 unit PO DAILY RF: 0 nitroglycerin [Nitrostat] 0.4 mg tablet, sublingual 0.4 mg SL Q5-15M PRNRF: 0 gabapentin 100 mg capsule 600 mg PO TID RF: 0 albuterol sulfate [ProAir HFA] 90 mcg/actuation HFA aerosol inhaler 2 puff IH QID RF: 0 gabapentin 100 mg capsule 100 mg PO QHS RF: 0 Humira 10 mg/0.2 mL syringe kit See Rx Instructions [place] .COMPLEX RF: 0 omeprazole 20 mg capsule,delayed release(DR/EC) 20 mg PO DAILY RF: 0 Flovent HFA 110 mcg/actuation HFA aerosol inhaler 2 puff IH BID RF: 0 paroxetine HCl [Paxil] 20 mg tablet 10 mg PO DAILY RF: 0 Levemir Flexpen 100 unit/mL (3 mL) Insulin Pen 15 unit SUBCUT QAM RF: 0 Discharge Instructions Stand Alone Forms: Post-op Topical Cataract Discharge Orders Discharge Orders: Discharge Order (Routine); Ordered 02/26/20 Ordered By: Marquez Lucas DS: Diagnosis Discharge Diagnosis (1) Cortical cataract of right eye: Status: Resolved (2) Nuclear sclerotic cataract of right eye: Status: Resolved
--- NOTE | 2020-02-26 08:54 | W.PM.OP ---
Date of service: 02/26/20 Time of Service: 08:54 Operative Note Operative Note DATE OF PROCEDURE: 02/26/20 PRE-OP DIAGNOSIS: Nuclear/cortical cataract, right eye POST-OP DIAGNOSIS: same PROCEDURE: Cataract extraction using phacoemulsification with intraocular lens implant, right eye SURGEON: Marquez Lucas ANESTHESIA: MAC and local (sub-tenon's anesthetic infiltration) ESTIMATED BLOOD LOSS: 0 PATHOLOGY: none sent COMPLICATIONS: None Patient was transported to: same day Patient's condition: stable Implants: Alfredo and Alfredo Vision / [employer] Tecnis ZCB00 intraocular lens Indications: Progressive decreased vision due to cataract, right eye Procedure Description: CATARACT SURGERY OPERATIVE REPORT PREOPERATIVE DIAGNOSIS: Nuclear/cortical cataract, right eye POSTOPERATIVE DIAGNOSIS: Same OPERATION: Cataract extraction using phacoemulsification with posterior chamber intraocular lens implant, right eye. IOL: IOL Insurance Actuary/Model: [employer] Vision / KASEY Tecnis [id number] IOL Power: + 11.0 diopters IOL Serial Number: [id number] Optic Diameter: 6.0mm Haptic/Overall Diameter: 13.0mm PHACO INFO: Abdelrahman [employer]ion Vision System with OZil and Active Fluidics Cumulative Dispersed Energy (CDE): 8.01 seconds SURGEON: Marquez Lucas MD, JOE ANESTHESIA: Monitored Anesthesia Care (MAC), with local sub-tenon's anesthetic infiltration COMPLICATIONS: None SPECIMENS: None INDICATIONS FOR PROCEDURE: Patient is a 69-year-old lady with history of myopia who has developed a significant nuclear and cortical cataract of the left eye. She desires cataract surgery and attempt to improve and maximize her vision. PROCEDURE: The correct surgical eye was identified and marked as the right eye and the pupil was dilated in the preoperative area using mydriatics and cycloplegics. The dilated pupil size was 7.0 mm. Oral sedation was administered in the form of an Imprimis MKO Melt (midazolam 3mg/ketamine 25mg/ondansetron 2mg). The patient was brought to the operating room where cardiopulmonary monitoring was instituted and surgical time-out was performed, confirming the correct operative eye and IOL power. Topical anesthesia was administered and ophthalmic povidone-iodine 5% was instilled into the conjunctival fornices. Lidocaine gel was applied to the cornea and the oliverio-ocular area was prepped with Betadine 10% solution and draped in the usual sterile fashion for intraocular surgery, including an aperture drape. A Tegaderm transparent film dressing was cut in half and used to cover the lashes and lid margins. Care was taken to sequester the lashes and lid margins under the Tegaderm dressing. A lid speculum was placed between the lids of the operative eye and the Stefano-Jeff operating microscope was maneuvered into position. Ceasar scissors were then used to make a conjunctival buttonhole approximately 6mm posterior to the limbus in the inferonasal quadrant. Blunt dissection was carried out to expose bare sclera, and a blunt-tipped sub-tenon?s anesthesia cannula was introduced and passed posteriorly along the globe where non-preserved plain lidocaine was injected into posterior sub-Tenon?s space. A sideport knife was used to make a paracentesis port inferiortemporally. Intraocular phenylephrine/lidocaine was injected into the anterior chamber. The anterior chamber was then filled with viscoelastic. A 2.4mm keratome knife was used to create a half-thickness groove at the limbus and then to construct a three-plane near-clear corneal tunnel extending 2.0mm into clear cornea in the superiortemporal position. . A flap was raised on the anterior capsule and capsulorhexis forceps were used to complete a continuous curvilinear capsulorhexis of 5.5 mm. Balanced salt solution was then used to perform cortical cleaving hydrodissection and nuclear hydrodelineation until the lens could be freely rotated within the capsular bag. The lens nucleus was then disassembled and removed within the capsular bag and iris plane using phacoemulsification. Residual cortical material was removed using the I/A handpiece. The posterior capsule was carefully polished to remove as much residual lens epithelial cells as safely possible. The capsular bag was then inflated and the anterior chamber deepened with viscoelastic. The lens implant described above was inserted into the capsular bag using the KASEY [place] Injector. A Kuglen hook was used to dial the IOL into position. Residual viscoelastic was then removed first from posterior to the IOL, then from the anterior chamber using the I/A handpiece. The lens implant was noted to center nicely within the capsular bag. The incisions were stromally hydrated, and the anterior chamber was reformed using BSS. Then 0.1cc of moxifloxacin 5.0mg/ml were injected into the capsular bag and anterior chamber. The incisions were checked with a Weck spear and found to be secure. Several drops of ophthalmic povidone-iodine 5% were then applied to the eye followed by two drops of Imprimis combination prednisolone/moxifloxacin/nepafenac solution. The drapes were removed and a clear plastic protective eye shield was placed over the eye. The patient was then returned to [facility] in stable condition.
[2020-02-26 09:20] VITALS: BP 103/63; PULSE 86; RESP 18; TEMP 36.6; O2SAT 93
== END 2020-02-26 09:42 | disposition home or self-care (01) ==
PROVIDERS: PCP Nurse Practitioner Family; Visit Provider Ophthalmology
PROC: (CPT 66984; principal; 2020-02-26 08:15)
DX: H25.011 Cortical age-related cataract, right eye (principal); H25.11 Age-related nuclear cataract, right eye; I10 Essential (primary) hypertension; K21.9 Gastro-esophageal reflux disease without esophagitis; E11.9 Type 2 diabetes mellitus without complications; Z79.4 Long term (current) use of insulin
CPT/HCPCS: 66984; V2632

== ENCOUNTER → 2020-03-04 12:33 | Outpatient (BNVA) | payer MEDICARE, SELFPAY | PROVIDERS: PCP Nurse Practitioner Family; Referring Provider Nurse Practitioner Family; Visit Provider Nurse Practitioner Adult Health | DX: E11.43 Type 2 diabetes mellitus with diabetic autonomic (poly)neuropathy (principal); R26.81 Unsteadiness on feet; R25.1 Tremor, unspecified; Z79.4 Long term (current) use of insulin | CPT/HCPCS: 99213; 99215 ==

== ENCOUNTER 2020-03-11 09:14 | Day surgery (SDC) | payer MEDICARE, SELFPAY ==
[2020-03-11 09:19] VITALS: BP 117/77; PULSE 88; RESP 16; TEMP 36.2; O2SAT 98
[2020-03-11] MEDS: Tropicam./Phenyleph. (1/2.5%) 5 ML BTL OS ×3 (09:35→09:45)
[2020-03-11] MEDS: Lidocaine 2% Jelly 6 ML SYR (10:20)
[2020-03-11] MEDS: Povidone-Iodine Ophth 30 ML BTL (10:20)
[2020-03-11] MEDS: Tetracaine 0.5% 4 ML BTL OS (10:20)
[2020-03-11] MEDS: Balanced Salt Soln.-PLUS 500 ML BAG (10:24)
[2020-03-11] MEDS: Lidocaine 1% Pres-Free 5 ML VIAL (10:24)
[2020-03-11] MEDS: Duovisc Viscoelastic System EACH 1 EACH (10:24)
--- NOTE | 2020-03-11 10:45 | W.PM.DSUDISC ---
Discharge Plan Discharge Details Attending Provider: Marquez Lucas Primary Care Provider: Maricarmen Galvan Home Meds and New Rx's Prescriptions: No Action simethicone [Gas Relief Extra Strength] 125 mg capsule 125 mg PO BID-QID PRNRF: 0 magnesium chloride 64 mg tablet extended release 64 mg PO BID RF: 0 mecobalamin (vitamin B12) 1,000 mcg tablet,chewable 1,000 mcg PO DAILY RF: 0 lidocaine 5 % cream 1 applic topical QID PRN (Reason: pain) Qty: 30 RF: 3 metformin 500 MG tablet 1,000 mg PO DAILY RF: 0 lovastatin 40 MG tablet 40 mg PO DAILY RF: 0 levothyroxine [Levoxyl] 75 MCG tablet 0.075 mcg PO DAILY RF: 0 aspirin [Aspirin Low-Strength] 81 MG tablet,chewable 81 mg PO DAILY RF: 0 FREESTYLE GLUCOMETER RF: 0 (DME) FreeStyle Lite Strips 1 EACH strip 1 ea Miscellaneous TID RF: 0 calcium carbonate-vitamin D3 [Calcium 500 + D] 1 EACH tablet 1 ea PO DAILY RF: 0 cholecalciferol (vitamin D3) 1,000 UNIT capsule 1,000 unit PO DAILY RF: 0 nitroglycerin [Nitrostat] 0.4 mg tablet, sublingual 0.4 mg SL Q5-15M PRNRF: 0 gabapentin 100 mg capsule 600 mg PO TID RF: 0 albuterol sulfate [ProAir HFA] 90 mcg/actuation HFA aerosol inhaler 2 puff IH QID RF: 0 gabapentin 100 mg capsule 100 mg PO QD-TID RF: 0 omeprazole 20 mg capsule,delayed release(DR/EC) 20 mg PO DAILY RF: 0 Flovent HFA 110 mcg/actuation HFA aerosol inhaler 2 puff IH BID RF: 0 paroxetine HCl [Paxil] 20 mg tablet 20 mg PO DAILY RF: 0 Levemir Flexpen 100 unit/mL (3 mL) Insulin Pen 15 unit SUBCUT QAM RF: 0 Discharge Instructions Stand Alone Forms: Post-op Topical Cataract, Press Ganey (DSU) DS: Diagnosis Discharge Diagnosis (1) Cortical cataract of left eye: Status: Resolved (2) Nuclear sclerotic cataract of left eye: Status: Resolved
--- NOTE | 2020-03-11 10:46 | ROE_ITS ---
Date of service: 03/11/20 Time of Service: 10:46 Operative Note Operative Note DATE OF PROCEDURE: 03/11/20 PRE-OP DIAGNOSIS: Nuclear/cortical cataract, left eye POST-OP DIAGNOSIS: same PROCEDURE: Cataract extraction using phacoemulsification with intraocular lens implant, left eye SURGEON: Marquez Lucas ANESTHESIA: MAC and local (sub-tenon's anesthetic infiltration) PATHOLOGY: none sent COMPLICATIONS: None Patient was transported to: same day Patient's condition: stable Implants: Alfredo and Alfredo Vision / [employer] Tecnis [id number] Indications: Progressive decreased vision due to cataract, left eye Procedure Description: CATARACT SURGERY OPERATIVE REPORT PREOPERATIVE DIAGNOSIS: Nuclear/cortical cataract, left eye POSTOPERATIVE DIAGNOSIS: Same OPERATION: Cataract extraction using phacoemulsification with posterior chamber intraocular lens implant, left eye. IOL: IOL [employer] Dock Attendant/Model: J&J Vision / KASEY Tecnis ZCB00 IOL Power: + 10.50 diopters IOL Serial Number: [id number] Optic Diameter: 6.0mm Haptic/Overall Diameter: 13.0mm PHACO INFO: Abdelrahman [employer] Vision System with OZil and Active Fluidics Cumulative Dispersed Energy (CDE): 6.40 seconds SURGEON: Marquez Lucas MD, JOE ANESTHESIA: Monitored Anesthesia Care (MAC), with local sub-tenon's anesthetic infiltration COMPLICATIONS: None SPECIMENS: None INDICATIONS FOR PROCEDURE: Patient is a 69-year-old lady with history of diminished visual acuity in both eyes secondary to the development of bilateral nuclear and cortical cataract. She has already undergone cataract surgery in her right eye and is doing well postoperatively. She now presents for cataract surgery in the left eye. PROCEDURE: The correct surgical eye was identified and marked as the left eye and the pupil was dilated in the preoperative area using mydriatics and cycloplegics. The dilated pupil size was 8.0 mm. Oral sedation was administered in the form of an Imprimis MKO Melt (midazolam 3mg/ketamine 25mg/ondansetron 2mg). The patient was brought to the operating room where cardiopulmonary monitoring was instituted and surgical time-out was performed, confirming the correct operative eye and IOL power. Topical anesthesia was administered and ophthalmic povidone-iodine 5% was instilled into the conjunctival fornices. Lidocaine gel was applied to the cornea and the oliverio-ocular area was prepped with Betadine 10% solution and draped in the usual sterile fashion for intraocular surgery, including an aperture drape. A Tegaderm transparent film dressing was cut in half and used to cover the lashes and lid margins. Care was taken to sequester the lashes and lid margins under the Tegaderm dressing. A lid speculum was placed between the lids of the operative eye and the Stefano-Jeff operating microscope was maneuvered into position. Ceasar scissors were then used to make a conjunctival buttonhole approximately 6mm posterior to the limbus in the inferonasal quadrant. Blunt dissection was carried out to expose bare sclera, and a blunt-tipped sub-tenon?s anesthesia cannula was introduced and passed posteriorly along the globe where non- preserved plain lidocaine was injected into posterior sub-Tenon?s space. A sideport knife was used to make a paracentesis port superior/superiortemporally. Intraocular phenylephrine/lidocaine was injected into the anterior chamber. The anterior chamber was then filled with viscoelastic. A 2.4mm keratome knife was used to create a half-thickness groove at the limbus and then to construct a three-plane near-clear corneal tunnel extending 2.0mm into clear cornea in the temporal position. . A flap was raised on the anterior capsule and capsulorhexis forceps were used to complete a continuous curvilinear capsulorhexis of 5.8 mm. Balanced salt solution was then used to perform cortical cleaving hydrodissectio n and nuclear hydrodelineation until the lens could be freely rotated within the capsular bag. The lens nucleus was then disassembled and removed within the capsular bag and iris plane using phacoemulsification. Residual cortical material was removed using the 45-degree angled silicone I/A tip with 0.3mm port. The posterior capsule was carefully polished to remove as much residual lens epithelial cells as safely possible. The capsular bag was then inflated and the anterior chamber deepened with viscoelastic. The lens implant described above was inserted into the capsular bag using the KASEY [place] Injector. A Kuglen hook was used to dial the IOL into position. Residual viscoelastic was then removed first from posterior to the IOL, then from the anterior chamber using the I/A handpiece. The lens implant was noted to center nicely within the capsular bag. The incisions were stromally hydrated, and the anterior chamber was reformed using BSS. Then 0.5cc of moxifloxacin 1.0mg/ml were injected into the capsular bag and anterior chamber. The incisions were checked with a Weck spear and found to be secure. Several drops of ophthalmic povidone-iodine 5% were then applied to the eye followed by two drops of Imprimis combination prednisolone/moxifloxacin/nepafenac solution. The drapes were removed and a clear plastic protective eye shield was placed over the eye. The patient was then returned to Same Day Surgery in stable condition.
[2020-03-11 11:16] VITALS: BP 112/69; PULSE 83; RESP 14; TEMP 36.7; O2SAT 93
[2020-03-11 12:15] VITALS: BP 114/71; PULSE 85; RESP 16; TEMP 36.4; O2SAT 97
== END 2020-03-11 12:46 | disposition home or self-care (01) ==
LOC: SUR 09:14
PROVIDERS: PCP Nurse Practitioner Family; Visit Provider Ophthalmology
PROC: (CPT 66984; principal; 2020-03-11 11:30)
DX: H25.012 Cortical age-related cataract, left eye (principal); H25.12 Age-related nuclear cataract, left eye; Z98.41 Cataract extraction status, right eye; Z96.1 Presence of intraocular lens; I10 Essential (primary) hypertension; K21.9 Gastro-esophageal reflux disease without esophagitis; E11.9 Type 2 diabetes mellitus without complications
CPT/HCPCS: 66984; V2632

== ENCOUNTER 2020-04-08 14:57 | Outpatient (REF) | payer MEDICARE, SELFPAY ==
[2020-04-08 19:24] LABS: ALT 21 U/L (14-59); AST 21 U/L (15-37); HDL Cholesterol 44 mg/dL (40-60); LDL CHOLESTEROL 80 mg/dL (<100); Magnesium 1.4 mg/dL (1.8-2.4); Vitamin B12 1986 pg/mL (193-986)
[2020-04-08 21:36] LABS: Creatine Kinase 73 U/L (26-192)
== END 2020-04-08 14:58 | disposition home or self-care (01) ==
LOC: NCHCN 14:57
PROVIDERS: PCP Nurse Practitioner Family; Visit Provider Nurse Practitioner Family
DX: E78.5 Hyperlipidemia, unspecified (principal); E83.42 Hypomagnesemia; R89.9 Unspecified abnormal finding in specimens from other organs, systems and tissues
CPT/HCPCS: 82550; 83721; 82607; 83718; 83735; 84450; 84460

== ENCOUNTER 2020-04-11 02:37 | Outpatient (CLI) | payer MEDICARE, SELFPAY ==
[2020-04-12 15:30] LABS: COVID-19 RT-PCR UVMMC Result Negative (Negative)
== END 2020-04-11 02:38 | disposition home or self-care (01) ==
LOC: LBO 02:37
PROVIDERS: PCP Nurse Practitioner Family; Visit Provider Family Medicine
DX: Z20.822 Contact with and (suspected) exposure to COVID-19 (principal); Z01.818 Encounter for other preprocedural examination
CPT/HCPCS: U0003; U0005

== ENCOUNTER 2020-04-15 01:21 | Outpatient (CLI) | payer MEDICARE, SELFPAY ==
--- NOTE | 2020-04-15 13:59 | ST.MBS_ITS ---
Modified Barium Swallow Date of service: 04/15/20 Study Findings: Videofluoroscopic Swallowing Evaluation / Modified Barium Swallow Study (VFSE/MBSS) Speech Language Pathology Report Patient continues to report the following: coughing with both solids/liquids, globus sensation with solids near larynx area (breads, waffles) which she typically follows with thin liquids but then this does not always help. Reports recently starting inhaler within past year which has been helpful with reducing coughing episodes. Endorses continued hoarseness, phlegm. Denies PNA hx; is currently taking omeprazole DR 20 mg once daily, reports new medication for pain however unable to recall name of medication. Requests written information after study which was provided today for review with spouse, Dionisio. Referring Provider: Leonel Gipson DO HPI: Pt is a 69 year old female referred for VFSE/MBSS given reported difficulties with swallowing as outlined above. Surgical History S/P appendectomy S/P cervical discectomy 12/26/12 S/P tubal ligation Previous Imaging Per available documentation review - ENT visit from 01/17/20: flexible laryngoscopy performed and mild edema of the posterior commissure was noted, with vocal cords very healthy and no lesions; etiologies of laryngeal pharyngeal reflux including dietary and lifestyle factors were discussed and reduction of PPI recommended Social History/Home Situation: Pt lives at home with assist available from [employer] and, Dionisio, and son. Predisposing dysphagia risk factors: Decreased strength Diabetes mellitus Diabetic neuropathy Chronic periodontitis (edentulous) Essential hypertension Generalized anxiety disorder History of closed head injury Rheumatoid arthritis Spinal stenosis in cervical region Partial seizure disorder Clinical signs of possible chronic dysphagia: report of pharyngeal globus, overt s/sx aspiration with po intake Precipitating dysphagia risk factors / triggering event: reports worsening dysphagia Cranial nerve exam / Oral Motor: CN V: facial sensation intact to LT; labial protrusion - symmetrical; labial coordination/ROM - WFL CN IX/X: palatal elevation - symmetrical; VQ WFL CN XII: Intact b/l Dentition/Oral Structures/Hygiene: edentulous, although states she is able to masticate thoroughly, can even eat corn on the cob; oral hygiene appears adequate, reports consistent and appropriate oral care regimen at home including salt rinse and listerine Language: verbal expression/fluency, naming, repetition, and auditory comprehension WFL Hearing: WFL Mental Status: AAOx3, recall of current events intact; states she does have difficulties with memory and lexical retrieval which are also noted during interview today Speech: WFL Laryngeal function exam: Secretions: WFL Vocal quality: somewhat hoarse, strained MPT: 12 secs (reduced relative to sex/age norms) S/Z ratio: 1.25 (WFL) Pitch range: WFL Cough: (volitional) perceptually WF OBJECTIVE: Videofluoroscopic Swallow Study (VFSS) was conducted in the lateral and [id number] projections by Speech-Language Pathologist, in collaboration with Radiologist, to evaluate oropharyngeal swallow function. Anatomic view under fluoroscopy: WFL PO barium contrast trials: Oral barium water soluble contrast was administered. Specifically, Varibar thin liquid IDDSI Level 0 (40% w/v), Varibar nectar thick/mildly thick liquid IDDSI Level 2 (40% w/v), Varibar honey (40% w/v), Varibar pudding/pureed/extremely thick IDDSI Level 4 (40% w/v), yohan cracker coated in 3 mL Varibar pudding; 13 mm barium tablet - IDDSI Level 7 Regular Solid. PHYSIOLOGIC FINDINGS Oral Phase 1 Lip Closure: 0 no labial escape 2 Tongue Control: 1 escape to lateral buccal cavity/floor of mouth 3 Bolus Preparation/Mastication: 1 slow prolonged chewing/mashing with complete recollection 4 Bolus Transport/Lingual Motion: 1 delayed initiation of tongue motion 5 Oral residue: 1 trace residue lining oral structures 6 Initiation of pharyngeal swallow: 3 bolus head in pyriforms (3, thin via cup) Pharyngeal Phase 7 Velar Elevation: 0 no bolus between SP/PW 8 Laryngeal Elevation: 1 partial superior movement of thyroid cartilage / partial approximation of arytenoids to epiglottic petiole 9 Anterior Hyoid Excursion: 1 partial anterior movement (+ reduced superior movement) 10 Epiglottic Movement: 1 partial inversion 11 Laryngeal Vestibule Closure: 1 incomplete; narrow column of contrast in laryngeal vestibule 12 Pharyngeal Stripping Wave: 1 present; diminished 13 Pharyngeal Contraction: 0 complete 14 PES/UES Openin partial distension/duration, partial obstruction of flow 15 Tongue Base Retraction: 2 narrow column of contrast between TB/PW 16 Pharyngeal residue: 2 collection of residue within/on pharyngeal structures (valleculae>pyriform sinuses) [place] Pharyngeal Residue Severity Rating Scale (YPRS) (Susan, et al, 2015) Vallecula Residue Severity IV Moderate 25-50% Epiglottic ligament covered Pyriform Sinus Residue Severity III Mild 5-25% Up wall to quarter full Esophageal Phase (partial) NOTE: This study was performed for interpretation only of the oropharyngeal and pharyngoesophageal domains of swallowing. It is not intended to diagnose any other radiologic abnormalities or substitute for a formal esophagram study. 17 Esophageal Clearance Upright Position: 2 esophageal retention with retrograde flow below pharyngoesophageal segment/PES Overall 8-Point Penetration-Aspiration Scale (PAS) (Jennifer, et al, 1996) 2 - Material enters the airway, remains above the vocal folds, and is ejected from the airway (inconsistent, transient penetration) Clinical Indicator(s) of Prandial/Postprandial Aspiration: [N/A] Trialed Compensatory Swallow Strategies & Outcome: Maneuvers 3-second Preparatory Set - unsuccessful in improving timing/coordination of pharyngeal swallow initiation Secondary saliva swallow x1- successful in clearing residue from vallecular space Bolus Modifications Increased Viscosity - successful (see below) Delivery/Alternating Consistencies - Wash with nectar thick/mildly thick liquid IDDSI Level 2 successful in clearing tablet from vallecular space; unsuccessful in assisting bolus through remainder of esophagus; 5ml IDDSI Level 4 - puree/pudding texture successful in assisting bolus through remainder of esophagus Reduced Volume - successful Dysphagia Outcome and Severity Scale (RADHA) LEVEL 6 - Full PO: normal diet - Within functional limits/modified independence IMPRESSIONS: Swallow safety is preserved; swallow efficiency is impaired. Mild-moderate oropharyngeal, moderate esophageal dysphagia, likely chronic; dysphagia presentation characterized by delayed pharyngeal swallow initiation and reduced tongue base retraction resulting in mild-moderate pharyngeal residue (vallecular>pyriform sinuses), and complicated by esophageal retention with retrograde flow below pharyngoesophageal segment/PES; of note, hypertrophy observed at level of cervical esophagus (C2-C3) during all swallow tasks. Deanna ent benefits from sequential dry swallow to clear vallecular residue from masticated texture, and liquid wash with mildly thick/level 2 liquid to dislodge 13 mm barium tablet from vallecular space. Dysphagia presentation is likely due in part to combination of cervical posture at baseline/spinal stenosis in cervical region, oropharyngeal musculature weakness, and noted esophageal retention with retrograde flow. Please see Radiology report for further comment on esophageal swallowing function. Patient appears to be at low-moderate risk for potential aspiration PNA, related pulmonary compromise, malnutrition, and/or dehydration. Diet modification as outlined below may be beneficial per patient preference. Swallow prognosis is good-fair given cognitive deficits, age, ongoing reflux symptomology; patient/caregiver training in risk management as outlined likely to be beneficial. Patient appears to be a fair candidate for behavioral swallow rehabilitation, recommended to schedule follow up appointment with SENIOR DATA WAREHOUSE ARCHITECT to review study results, develop treatment plan of care, and outlined strategies to address efficiency and comfort with po intake, review additional behavioral reflux management techniques as appropriate. PLAN: Diet recommendation: 6-Soft & Bite-Sized Solids 0-Thin Liquids Diet texture modification per patient's discretion & collaboration with care team. Risk Management: Behavioral reflux precautions, including upright position during + 90 mins after meals. Small bites, approx [id number] Small sips, approx 10-15mL Alternate solids/liquids as able *Recommend following pills/tablets with 5ml pureed solid texture *Multiple swallows per bolus (1-2) to encourage clearance of pharyngeal stasis/residue Control risk factors for aspiration pneumonia via (a) thorough oral hygiene & (b) maintaining physical mobility as tolerated Specialist referrals: May consider GI consult given esophageal retention with retrograde flow/noted hypertrophy Ancillary tests: N/A Therapy: Recommend subsequent outpatient session with SENIOR DATA WAREHOUSE ARCHITECT to review results of today's exam and develop treatment plan as appropriate. Thank you for allowing me to take part in this patient's care. Please feel free to contact me with any questions/concerns. Dinorah Zhao MA [facility]-SENIOR DATA WAREHOUSE ARCHITECT Speech Language Pathologist SENIOR DATA WAREHOUSE ARCHITECT SERVICE CODE(S): Modified Barium Swallow Study 61418
--- NOTE | 2020-04-15 14:58 | DI.RAD_ITS ---
TECHNIQUE: Modified barium swallow was performed in conjunction with speech pathology. CONTRAST MATERIAL: Oral barium Oral water soluble contrast was administered. COMPARISON: No exams were available for comparison FINDINGS: There is no evidence of obvious penetration or aspiration. There is a consistent hypertense upper es ophageal sphincter noted. Possible stricture just below this level. In addition, there was signific ant holdup of the radiopaque barium pill in the distal esophagus just above the GE junction without e vidence of obvious hiatal hernia at this level. IMPRESSION: No evidence of aspiration or penetration. Other findings as above. Recommend endoscopy to rule out m alignant strictures. Total fluoroscopy time 3 minutes 58 seconds.
[2020-04-15] MEDS: Barium Sulfate 40% W/V 240 ML BTL 20 ML PO (15:27)
[2020-04-15] MEDS: Barium Sulfate 81% w/w for Oral Suspension 148 GM BTL PO (15:28)
== END 2020-04-15 01:22 ==
LOC: DI 01:42
PROVIDERS: PCP Nurse Practitioner Family; Visit Provider Speech-Language Pathologist
DX: R13.12 Dysphagia, oropharyngeal phase (principal); R05 Cough; R09.89 Other specified symptoms and signs involving the circulatory and respiratory systems
CPT/HCPCS: 74221

== ENCOUNTER → 2020-04-29 07:56 | Outpatient (BNVA) | payer MEDICARE, SELFPAY | PROVIDERS: PCP Nurse Practitioner Family; Referring Provider Nurse Practitioner Family; Visit Provider Nurse Practitioner Adult Health | DX: R26.81 Unsteadiness on feet (principal); E11.43 Type 2 diabetes mellitus with diabetic autonomic (poly)neuropathy | CPT/HCPCS: 99443 ==

== ENCOUNTER 2020-07-08 17:26 | Outpatient (REF) | payer MEDICARE, SELFPAY ==
[2020-07-08 19:20] LABS: Magnesium 1.6 mg/dL (1.8-2.4)
== END 2020-07-08 17:27 | disposition home or self-care (01) ==
LOC: NCHCN 17:26
PROVIDERS: PCP Nurse Practitioner Family; Visit Provider Nurse Practitioner Family
DX: E83.42 Hypomagnesemia (principal)
CPT/HCPCS: 83735

== ENCOUNTER → 2020-07-29 14:53 | Outpatient (BNVA) | payer MEDICARE, SELFPAY | PROVIDERS: PCP Nurse Practitioner Family; Referring Provider Nurse Practitioner Family; Visit Provider Nurse Practitioner Adult Health | DX: E11.43 Type 2 diabetes mellitus with diabetic autonomic (poly)neuropathy (principal); R26.81 Unsteadiness on feet; R29.6 Repeated falls; G31.84 Mild cognitive impairment of uncertain or unknown etiology | CPT/HCPCS: 99213; 99214 ==

== ENCOUNTER 2020-08-20 01:29 | Outpatient (CLI) | payer MEDICARE, SELFPAY ==
--- NOTE | 2020-08-20 | DI.DEXA_ITS ---
Exam(s) XR DEXA BONE DENSITY W/WO [place] EXAM: XR DEXA BONE DENSITY W/WO [place] CLINICAL HISTORY: OSTEOPENIA, M85.88 TECHNIQUE: Routine DEXA evaluation of the lumbar spine, hip, or forearm. COMPARISON: Prior DEXA scan 2007 FINDINGS: Performed on a [employer] unit. Lateral image: No compression fracture evident. Lumbar Spine total T-score: -1.7. . Prior reading in January 2008 was -2.1 Hip total T-score:-1.7 . prior reading January 2008 was -2.1 Reading at the level of the femoral neck yields a T-score of -0.8 Forearm total T-score: -4.2 IMPRESSION: Bone mineral density measures in the osteopenia-osteoporosis range. Fracture risk is moderate-high. Note: Any spine fracture indicates 5x risk for subsequent spine fracture and 2x risk for subsequent h ip fracture. World Health Organization criteria for BMD interpretation classify patients: Normal...... T- Score at or above -1.0 Osteopenic... T- Score between -1.0 and -2.5 Osteoporosis... T-Score at or below -2.5
== END 2020-08-20 01:49 ==
PROVIDERS: PCP Nurse Practitioner Family; Visit Provider Nurse Practitioner Family
DX: M85.89 Other specified disorders of bone density and structure, multiple sites (principal)
CPT/HCPCS: 77080

== ENCOUNTER → 2020-09-24 09:58 | Outpatient (BNVA) | payer MEDICARE, SELFPAY | PROVIDERS: PCP Nurse Practitioner Family; Referring Provider Nurse Practitioner Family; Visit Provider Nurse Practitioner Adult Health | DX: G31.84 Mild cognitive impairment of uncertain or unknown etiology (principal); E11.42 Type 2 diabetes mellitus with diabetic polyneuropathy; R26.89 Other abnormalities of gait and mobility | CPT/HCPCS: 99213; 99214 ==

== ENCOUNTER 2020-11-21 02:16 | Outpatient (CLI) | payer MEDICARE, SELFPAY ==
--- NOTE | 2020-11-21 | DI.RAD_ITS ---
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 TECHNIQUE: 2D digital imaging was performed of the thoracic spine. Three views were obtained. AP, swimmer's and lateral views were obtained. COMPARISON: CR XR CHEST 2V PA LATERAL from 01/27/2018 CR XR CHEST 2V PA LATERAL from 01/27/2018 FINDINGS: There is again seen a left convex curvature of the upper thoracic spine which is stable. The paraspi nal lines are unremarkable. Multilevel disc space narrowing and endplate delete hypertrophic changes are present throughout the thoracic spine. No acute fracture or subluxation. There is again seen a hemangioma of the T10 vertebral body. Atherosclerosis of the thoracic aorta is noted. IMPRESSION: Moderate degenerative changes in the thoracic spine. DATA REPOSITORY: RADIATION DOSE DELIVERED:
--- NOTE | 2020-11-21 | DI.RAD_ITS ---
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 TECHNIQUE: 2D digital imaging was performed of the lumbar spine. Five images were obtained. AP, la teral, right oblique, left oblique and L5-S1 spot views were obtained. COMPARISON: MR MRI LUMBAR WO from 01/22/2020 MR MRI LUMBAR WO from 01/22/2020 FINDINGS: There are 5 lumbar type vertebral bodies. There is again seen fusion of the L4 and L5 vertebral bodi es. There is no spondylolysis or spondylolisthesis. Disc heights are well maintained. No acute fra ctures or subluxations are seen. The bones are normally mineralized. Mild degenerative changes are seen at the facets at L5-S1. There is atherosclerosis. Mild endplate hypertrophic changes are seen throughout the lumbar spine. IMPRESSION: 1. Degenerative changes of the lumbar spine. 2. No acute abnormality. DATA REPOSITORY: RADIATION DOSE DELIVERED:
== END 2020-11-21 02:36 ==
PROVIDERS: PCP Nurse Practitioner Family; Visit Provider Internal Medicine Endocrinology, Diabetes & Metabolism
DX: M40.55 Lordosis, unspecified, thoracolumbar region (principal); M47.814 Spondylosis without myelopathy or radiculopathy, thoracic region; M47.816 Spondylosis without myelopathy or radiculopathy, lumbar region
CPT/HCPCS: 36415; 80053; 82306; 82523; 72072; 72110; 82977; 82985; 83970; 84100; 84443; 86376; 86800

== ENCOUNTER 2020-11-21 04:01 | Outpatient (CLI) | payer MEDICARE, SELFPAY ==
[2020-11-21 13:48] LABS: ALT 29 U/L (14-59); AST 31 U/L (15-37); Albumin 3.9 g/dL (3.4-5.0); Alkaline Phosphatase 105 U/L (46-116); BUN 11 mg/dL (7-18); Bilirubin, Total 0.5 mg/dL (0.2-1.0); CREATININE 0.7 mg/dL (0.55-1.02); Calcium 9.7 mg/dL (8.5-10.1); Chloride 104 mmol/L (98-107); GGT 32 U/L (5-55); Glucose 119 mg/dL (74-106); PHOSPHORUS 4.4 mg/dL (2.6-4.7); Potassium 4.1 mmol/L (3.5-5.1); Sodium 142 mmol/L (136-145); TSH 0.37 uIU/mL (0.36-3.74); Total Protein 8.4 g/dL (6.4-8.2)
[2020-11-21 14:03] LABS: Vitamin D 25 Total 55.5 ng/mL (30-100)
[2020-11-21 22:16] LABS: Thyroglobulin Antibody <15 U/mL (<=60); Thyroperoxidase Antibody 57 U/mL (<=60)
[2020-11-22 10:25] LABS: Parathyroid Hormone,Intact 21 pg/mL (19-88)
[2020-11-22 11:08] LABS: Beta-CrossLaps (B-CTx) 199 pg/mL
[2020-11-22 12:57] LABS: Fructosamine 313 mcmol/L (200 - 285)
== END 2020-11-21 04:02 | disposition home or self-care (01) ==
LOC: LBO 04:01
PROVIDERS: PCP Nurse Practitioner Family; Visit Provider Internal Medicine Endocrinology, Diabetes & Metabolism
DX: E11.65 Type 2 diabetes mellitus with hyperglycemia (principal); K74.60 Unspecified cirrhosis of liver; E03.9 Hypothyroidism, unspecified
CPT/HCPCS: 36415; 80053; 82306; 82523; 82977; 82985; 83970; 84100; 84443; 86376; 86800

== ENCOUNTER 2020-11-27 14:11 | Outpatient (REF) | payer MEDICARE, SELFPAY ==
[2020-11-28 09:06] LABS: Calcium Urine 24.6 mg/dL (See Note); Calcium Urine 24 hr 98 mg/24hrs (100-300); Timed Urine Volume 400 mL
== END 2020-11-27 14:12 | disposition home or self-care (01) ==
LOC: LBN 14:11
PROVIDERS: PCP Nurse Practitioner Family; Visit Provider Internal Medicine Endocrinology, Diabetes & Metabolism
DX: M81.0 Age-related osteoporosis without current pathological fracture (principal); E11.65 Type 2 diabetes mellitus with hyperglycemia; E03.9 Hypothyroidism, unspecified; K74.60 Unspecified cirrhosis of liver
CPT/HCPCS: 81050; 82340

== ENCOUNTER 2020-12-23 01:01 | Outpatient (CLI) | payer MEDICARE, SELFPAY ==
--- NOTE | 2020-12-23 12:30 | DI.MAMMO_ITS ---
Exam(s) MAMMO SCREENING EXAM: MAMMO SCREENING CLINICAL HISTORY: SCREENING, Z12.39. TECHNIQUE: Bilateral full field digital CC and MLO mammographic images were obtained with 3D tomosyn thesis and utilizing computer aided detection (CAD). COMPARISON: Prior mammograms dating back to 2016, the most recent being July 2018. FINDINGS: There are no CAD designations There are no new spiculated masses nor malignant appearing microcalcification groups. There is no significant architectural distortion nor skin thickening-retraction. IMPRESSION: No radiographic evidence of malignancy. BI-RADS Category 1 - Negative Breast Density - Category B - Scattered areas of fibroglandular density Breast density Category C or D implies that the patient has dense breast tissue. Dense breast tissue can make it harder to find cancer on a mammogram. Dense breast tissue is also associated with an incr eased risk of breast cancer. This information about the result of the mammogram report was provided to the patient to raise their awareness. Use this report when you speak with the patient about their risks for breast cancer, which includes their family history. At that time, you may recommend additional screening tests (Ultrasoun d or MRI) as these tests may add significant information. A negative radiographic report should not delay biopsy if a dominant or clinically suspicious mass is present. Up to ten percent of cancers are not identified on mammography. A negative report may reinforce clinical impression. Adenosis and dense breasts may obscure an underlying neoplasm. False positive reports average 6 to 10%. Patient will receive a letter notifying them of these results.
== END 2020-12-23 01:21 ==
PROVIDERS: PCP Nurse Practitioner Family; Visit Provider Nurse Practitioner Family
DX: Z12.31 Encounter for screening mammogram for malignant neoplasm of breast (principal)
CPT/HCPCS: 77063; 77067

== ENCOUNTER → 2021-03-26 12:24 | Outpatient (BNVA) | payer MEDICARE, SELFPAY | PROVIDERS: PCP Nurse Practitioner Family; Referring Provider Nurse Practitioner Family; Visit Provider Nurse Practitioner Adult Health | DX: E11.42 Type 2 diabetes mellitus with diabetic polyneuropathy (principal); R42 Dizziness and giddiness; I95.1 Orthostatic hypotension; G31.84 Mild cognitive impairment of uncertain or unknown etiology | CPT/HCPCS: 99214 ==

== ENCOUNTER 2021-04-28 18:28 | Outpatient (REF) | payer MEDICARE, SELFPAY ==
[2021-04-28 20:58] LABS: Hemoglobin A1C 9.3 % (<5.7)
[2021-04-28 21:03] LABS: ALT 19 U/L (14-59); AST 17 U/L (15-37); HDL Cholesterol 47 mg/dL (40-60); LDL CHOLESTEROL 93 mg/dL (<100)
[2021-04-28 21:15] LABS: Creatine Kinase 74 U/L (26-192)
== END 2021-04-28 18:29 | disposition home or self-care (01) ==
LOC: NCHCN 18:28
PROVIDERS: PCP Nurse Practitioner Family; Visit Provider Nurse Practitioner Family
DX: E11.49 Type 2 diabetes mellitus with other diabetic neurological complication (principal)
CPT/HCPCS: 82550; 83721; 83036; 83718; 84450; 84460

== ENCOUNTER 2021-06-30 17:47 | Outpatient (REF) | payer MEDICARE, SELFPAY ==
[2021-07-04 11:37] LABS: O-desmethyltramadol 2363 ng/mL (Cutoff:25); Tramadol 10887 ng/mL (Cutoff:25)
== END 2021-06-30 17:48 | disposition home or self-care (01) ==
LOC: NCHCN 17:47
PROVIDERS: PCP Nurse Practitioner Family; Visit Provider Nurse Practitioner Family
DX: N89.8 Other specified noninflammatory disorders of vagina (principal); L29.8 Other pruritus; M48.02 Spinal stenosis, cervical region; M54.2 Cervicalgia; L40.50 Arthropathic psoriasis, unspecified; Z79.899 Other long term (current) drug therapy
CPT/HCPCS: 80373; 87480; 87510; 87660

== ENCOUNTER 2021-07-28 03:52 | Outpatient (CLI) | payer MEDICARE, SELFPAY ==
[2021-07-28 13:59] LABS: ALT 20 U/L (14-59); AST 16 U/L (15-37); Albumin 3.7 g/dL (3.4-5.0); Alkaline Phosphatase 61 U/L (46-116); Anion Gap 11.4 mmol/L (3-11); BUN 15 mg/dL (7-18); Bilirubin, Total 0.4 mg/dL (0.2-1.0); CO2 26.6 mmol/L (21.0-32.0); CREATININE 0.8 mg/dL (0.55-1.02); Calcium 9.4 mg/dL (8.5-10.1); Chloride 105 mmol/L (98-107); GGT 27 U/L (5-55); Glucose 238 mg/dL (74-106); Sodium 143 mmol/L (136-145)
[2021-07-28 14:16] LABS: PHOSPHORUS 4.1 mg/dL (2.6-4.7)
[2021-07-29 14:50] LABS: Fructosamine 412 mcmol/L (200 - 285)
[2021-08-05 12:26] LABS: NTX-Telopeptide 9.6 nM BCE
== END 2021-07-28 03:53 | disposition home or self-care (01) ==
PROVIDERS: PCP Nurse Practitioner Family; Visit Provider Internal Medicine Endocrinology, Diabetes & Metabolism
DX: M81.0 Age-related osteoporosis without current pathological fracture (principal); K74.60 Unspecified cirrhosis of liver; E11.65 Type 2 diabetes mellitus with hyperglycemia
CPT/HCPCS: 36415; 80053; 82523; 82977; 82985; 84100

== ENCOUNTER → 2021-08-07 09:46 | Outpatient (BNVA) | payer MEDICARE, SELFPAY | PROVIDERS: PCP Nurse Practitioner Family; Referring Provider Nurse Practitioner Family; Visit Provider Nurse Practitioner Adult Health | DX: E11.42 Type 2 diabetes mellitus with diabetic polyneuropathy (principal); I95.1 Orthostatic hypotension; M50.01 Cervical disc disorder with myelopathy, high cervical region; G31.84 Mild cognitive impairment of uncertain or unknown etiology | CPT/HCPCS: 99213; 99214 ==

== ENCOUNTER 2021-09-05 01:06 | Outpatient (RCR) | payer MEDICARE, SELFPAY ==
--- OUTSIDE RECORDS SUMMARY | 2021-09-05 01:08 | XMS_ITS | Encounter Summary ---
:1950 Author Organization [facility] [address] [place] [address] Care Team Providers Name Role Phone Maricarmen Galvan JORGE Primary Care Provider Encounter Details Date Type Department Care Team Description 02/06/2020 Laboratory Appointment Lab 3L [facility] Hepatic cirrhosis, [facility] unspecified hepatic [facility] cirrhosis type, Drive unspecified whether [place], [place] ascites present [id number] Social History Tobacco Use Types Packs/Day Years Used Date Never Smoker Smokeless Tobacco: Never Used Alcohol Use Standard Drinks/Week Comments No 0 (1 standard drink = 0.6 oz pure alcoho l) Sex Assigned at Date Recorded Not on file documented as of this encounter Plan of Treatment Upcoming Encounters Date Type Specialty Care Team Description 09/11/2021 Appointment Radiology Tory Willard APRN [facility] [place], [place] [address] (Wo rk) 09/11/2021 Laboratory Appointment Lab 09/11/2021 Office Visit Gastroenterology Tory Willard APRN [facility] [place], [place] [address] (Wo rk) 09/11/2021 Office Visit Rheumatology Lorenzo Hermosillo PA [facility] [place], [place] [address] (Wo rk) Scheduled Procedures Name Priority Associated Diagnoses Date/Time EGD, UPPER GI ENDOSCOPY Hepatic cirrhosis, unspe cified hepatic cirrhosis type, unspecified whet her ascites present documented as of this encounter Procedures Procedure Name Priority Date/Time Associated Diagnosis Comme nts HEMOGRAM Routine 02/06/2020 10:49 Hepatic cirrhosis, Resul ts for this AM EST unspecified hepatic procedur e are in cirrhosis type, the results unspecified whether section. ascites present DIFFERENTIAL, Routine 02/06/2020 10:49 Hepatic cirrhosis, Resu lts for this AUTOMATED AM EST unspecified hepatic procedur e are in cirrhosis type, the results unspecified whether section. ascites present HC VENIPUNCTURE Routine 02/06/2020 10:49 Hepatic cirrhosis, Re sults for this AM EST unspecified hepatic procedur e are in cirrhosis type, the results unspecified whether section. ascites present HC CBC,PLT & AUTO Routine 02/06/2020 10:49 Hepatic cirrhosis, DIFF AM EST unspecified hepatic cirrhosis type, unspecified whether ascites present documented in this encounter Results (ABNORMAL) Differential, Automated (02/06/2020 10:49 AM EST) [facility] Method Time Signature Neutrophils % 23.4 % [facility] Neutr Abs (ANC) 1.38 (L) 1.70 - [facility] 6.10 [facility] x10(3)/[facility] LABORATORY Lymphocytes % 32.3 % [facility] Lymphocytes Abs 1.9 0.9 - 3.2 [facility] x10(3)/[facility] LABORATORY Monocytes % 10.1 % [facility] Monocyte Abs 0.6 0.3 - 0.9 [facility] x10(3)/[facility] LABORATORY Eosinophils % 32.8 % [facility] Eosinophils Abs 1.9 (H) 0.0 - 0.4 [facility] x10(3)/[facility] LABORATORY Basophils % 1.2 % [facility] Basophils Abs 0.1 0.0 - 0.1 [facility] x10(3)/[facility] LABORATORY Immature Gran % 0.20 % [facility] Comment: Immature granulocytes(IG's)percentage an d absolute count will include metamyelocytes, myelocytes, and promyelo cytes. Blood smears from CBCs yielding IG's will be scanned manually for concor dance. If this scan disagrees with the automated IG or if promyelocytes are not ed, a manual differential will be performed. Judy Gran Abs 0.01 0.00 - 0.04 x10(3)/[facility] MAR Y [facility] Specimen Anatomical Collection Method Collection Time Receive d Time (Source) Location / / Volume Laterality Blood specimen 02/06/2020 10:49 0 (specimen) AM EST 11:02 AM EST Resulting Agency Comment Spec In Lab Tory Willard APRN HEMATOLOGY ORDERABLES Performing Organization Address City/State/[place] [address] (ABNORMAL) Hemogram (02/06/2020 10:49 AM EST) Analysis Performed At Patho logist Time Signature WBC 5.9 4.0 - 9.5 [facility] x10(3)/[facility] LABORATORY RBC 3.94 (L) 4.00 - [facility] 5.21 [facility] x10(6)/[facility] LABORATORY Hemoglobin 11.6 (L) 11.7 - [facility] gm/dL [facility] Hematocrit 35.7 35.7 - [facility] 45.8 % [facility] MCV 90.6 82.6 - [facility] 94.4 [facility] MCH 29.4 27.1 - [facility] 32.0 pg [facility] MCHC 32.5 31.7 - [facility] 35.0 gm/dL [facility] Platelets 102 (L) 145 - 357 [facility] x10(3)/[facility] LABORATORY RDWSD 50.1 (H) 37.0 - [facility] 46.0 [facility] LABORATORY RDWCV 15.1 (H) 11.5 - [facility] 14.1 % [facility] MPV 9.9 7.6 - 12.9 [facility] LABORATORY nRBC % Auto 0.0 % [facility] nRBC Abs Auto 0.000 0.000 - [facility] 0.000 [facility] x10(3)/[facility] LABORATORY Specimen Anatomical Collection Method Collection Time Receive d Time (Source) Location / / Volume Laterality Blood specimen 02/06/2020 10:49 0 (specimen) AM EST 11:02 AM EST Resulting Agency Comment Spec In Lab Tory Flood Sudheer PATEL HEMATOLOGY ORDERABLES Performing Organization Address City/[facility]/[place] [address] Prothrombin Time (02/06/2020 10:49 AM EST) P athologist Signature PT 11.7 9.4 - 12.5 [facility] LABORATORY INR 1.0 [facility] Comment: An INR <2.0 indicates adequate procoagul ant activity for hemostasis in most patients without underlying bleeding dis orders, though the INR may not adequately reflect hemostatic capacity i n patients with liver disease and synthetic impairment. The recommended ta rget INR range for therapeutic anticoagulation is 2.0 ? 3.0 for most applications, though lower and higher ranges may be appropriate depending on c linical circumstances. Specimen Anatomical Collection Method Collection Time Receive d Time (Source) Location / / Volume Laterality Blood specimen 02/06/2020 10:49 0 (specimen) AM EST 11:02 AM EST Resulting Agency Comment Spec In Lab Tory Bordensuasna PATEL HEMATOLOGY ORDERABLES Performing Organization Address City/[facility]/[place] [address] documented in this encounter Visit Diagnoses Diagnosis Hepatic cirrhosis, unspecified hepatic c irrhosis type, unspecified whether ascites present documented in this encounter Care Teams Safety Representative Relationship Specialty Start Date End Date Maricarmen Galvan APRN PCP - General Family Medicine 05/10/18 [address] [place] [address] documented as of this encounter
--- OUTSIDE RECORDS SUMMARY | 2021-09-05 01:08 | XMS_ITS | Encounter Summary ---
:1950 [address] Organization [facility] [place] [address] Care Team Providers Name Role Phone Maricarmen Galvan JORGE Primary Care Provider Reason for Visit Reason Comments Specialty Pharmacy Review Apremilast (Otezla) Encounter Details Date Type Department Care Team Description 03/13/2021 Specialty Pharmacy Pharmacy at [facility] Iqra Saleh Specialty Pharmacy [facility] A Review (A premilast Drive (Otezla)) [place] [id number] Social History Tobacco Use Types Packs/Day Years Used Date Never Smoker Smokeless Tobacco: Never Used Alcohol Use Standard Drinks/Week Comments No 0 (1 standard drink = 0.6 oz pure alcoho l) Sex Assigned at Date Recorded Not on file documented as of this encounter Progress Notes Iqra Saleh - 03/13/2021 12:09 PM EST The - Specialty Pharmacy has completed a benefits investigation for Shereen Vega to review their eligibility to fill at [facility]. Per patient's medication list they are prescribed Apremilast (Otezla) and the medication is not able to be filled at the - Specialty Pharmacy. documented in this encounter Plan of Treatment Upcoming Encounters Date Type Specialty Care Team Description 09/11/2021 Appointment Radiology Tory Willard APRN [facility] ER DR GASTROENTEROLOGY [place], [place] [address] (Wo rk) 09/11/2021 Laboratory Appointment Lab 09/11/2021 Office Visit Gastroenterology Tory Willard APRN [facility] ER GASTROENTEROLOGY [place], [place] [address] (Wo rk) 09/11/2021 Office Visit Rheumatology Lorenzo Hermosillo PA [facility] ER RHEUMATOLOGY [place], [place] [address] (Wo rk) Scheduled Procedures Name Priority Associated Diagnoses Date/Time EGD, UPPER GI ENDOSCOPY Hepatic cirrhosis, unspe cified hepatic cirrhosis type, unspecified whet her ascites present documented as of this encounter Visit Diagnoses Not on filedocumented in this encounter Care Teams Reference Assistant Relationship Specialty Start Date End Date Maricarmen Galvan APRN PCP - General Family Medicine 05/10/18 [address] [place] [address] documented as of this encounter
--- OUTSIDE RECORDS SUMMARY | 2021-09-05 01:08 | XMS_ITS | Encounter Summary ---
:1950 Author Organization [facility] Address [address] [place] [address] Care Team Providers Name Role Phone Maricarmen Galvan JORGE Primary Care Provider Reason for Visit Reason Comments Specialty Pharmacy Review adalimumab (Humira,CF, Pen) 40 mg/0.4 mL Encounter Details Date Type Department Care Team Description 04/29/2020 Specialty Pharmacy Pharmacy at [facility] Bashir Oakes Specialty Pharmacy [facility] Review (a dalimumab Drive (Humira,CF, Pen) 40 [place], [place] mg/0.4 mL) [id number] Social History Tobacco Use Types Packs/Day Years Used Date Never Smoker Smokeless Tobacco: Never Used Alcohol Use Standard Drinks/Week Comments No 0 (1 standard drink = 0.6 oz pure alcoho l) Sex Assigned at Date Recorded Not on file documented as of this encounter Progress Notes Bashir Oakes - 04/29/2020 8:37 AM EST The - Specialty Pharmacy has completed a benefits investigation for Shereen Vega to review their eligibility to fill at - Specialty Pharmacy. Per patient's medication list they are prescribed adalimumab (Humira,CF, Pen) 40 mg/0.4 mL and the medication is not able to be filled at the D[facility] Specialty [facility]. documented in this encounter Plan of Treatment Upcoming Encounters Date Type Specialty Care Team Description 09/11/2021 Appointment Radiology Tory Willard APRN [facility] ER GASTROENTEROLOGY [place], [place] [address] (Wo rk) 09/11/2021 Laboratory Appointment Lab 09/11/2021 Office Visit Gastroenterology Tory Willard APRN [facility] GASTROENTEROLOGY [place], [place] [address] (Wo rk) 09/11/2021 Office Visit Rheumatology Lorenzo Hermosillo PA [facility] RHEUMATOLOGY [place], [place] [address] (Wo rk) Scheduled Procedures Name Priority Associated Diagnoses Date/Time EGD, UPPER GI ENDOSCOPY Hepatic cirrhosis, unspe cified hepatic cirrhosis type, unspecified whet her ascites present documented as of this encounter Visit Diagnoses Not on filedocumented in this encounter Care Teams Architectural Drafting Instructor Relationship Specialty Start Date End Date Maricarmen Galvan APRN PCP - General Family Medicine 05/10/18 [address] [place] [address] documented as of this encounter
--- OUTSIDE RECORDS SUMMARY | 2021-09-05 01:08 | XMS_ITS | Encounter Summary ---
:1950 Author Organization [facility] [place] [address] Care Team Providers Name Role Phone Maricarmen Galvan SEARCH MANAGER Primary Care Provider Encounter Details Date Type Department Care Team Description 04/08/2020 Telephone Rheumatology at [facility] Janelle Loya [facility] [place] [address] Social History Tobacco Use Types Packs/Day Years Used Date Never Smoker Smokeless Tobacco: Never Used Alcohol Use Standard Drinks/Week Comments No 0 (1 standard drink = 0.6 oz pure alcoho l) Sex Assigned at Date Recorded Not on file documented as of this encounter Miscellaneous Notes Telephone Encounter - Janelle Loya - 04/08/2020 4:50 PM EST CALLED PT AND PROVIDED CODE FOR HER TO HAVE COME TO APPT REQUESTED BY PCP. documented in this encounter Plan of Treatment Upcoming Encounters Date Type Specialty Care Team Description 09/11/2021 Appointment Radiology Tory Willard APRN [facility] ER GASTROENTEROLOGY [place], [place] [address] (Wo rk) 09/11/2021 Laboratory Appointment Lab 09/11/2021 Office Visit Gastroenterology Tory Willard APRN [facility] GASTROENTERTYRONE [place], [place] [address] (Wo rk) 09/11/2021 Office Visit Rheumatology Lorenzo Hermosillo PA [facility] [address] [place], [place] [address] (Wo rk) Scheduled Procedures Name Priority Associated Diagnoses Date/Time EGD, UPPER GI ENDOSCOPY Hepatic cirrhosis, unspe cified hepatic cirrhosis type, unspecified whet her ascites present documented as of this encounter Visit Diagnoses Not on filedocumented in this encounter Care Teams Bread Supervisor Relationship Specialty Start Date End Date Maricarmen Glavan APRN PCP - General Family Medicine 05/10/18 [address] [place] [address] documented as of this encounter
--- OUTSIDE RECORDS SUMMARY | 2021-09-05 01:08 | XMS_ITS | Encounter Summary ---
:1950 [place] [address] Care Team Providers Name Role Phone Maricarmen Galvan JORGE Primary Care Provider Encounter Details Date Type Department Care Team Description 02/21/2020 Telephone Pharmacy at [facility] Jennifer Judd [facility] [place] [address] Social History Tobacco Use Types Packs/Day Years Used Date Never Smoker Smokeless Tobacco: Never Used Alcohol Use Standard Drinks/Week Comments No 0 (1 standard drink = 0.6 oz pure alcoho l) Sex Assigned at Date Recorded Not on file documented as of this encounter Miscellaneous Notes Telephone Encounter - Jennifer Judd [facility] - 02/21/2020 9:15 AM EST I spoke with Shereen about her Humira application. The [employer] office said they faxed it in yesterday. There was a mix up and never sent the first time. I let Shereen know if she doesn't hear anything from the builder operator by Wednesday or Wednesday that she should call me and I can reach out to [employer]. documented in this encounter Plan of Treatment Upcoming Encounters Date Type Specialty Care Team Description 09/11/2021 Appointment Radiology Tory Willard APRN [facility] GASTROENTEROLOGY [place], [place] [address] (Wo rk) 09/11/2021 Laboratory Appointment Lab 09/11/2021 Office Visit Gastroenterology Tory Willard APRN [facility] GASTROENTEROLOGY [place], [place] [address] (Wo rk) 09/11/2021 Office Visit Rheumatology Lorenzo Hermosillo PA [facility] ER RHEUMATOLOGY [place], [place] [address] (Wo rk) Scheduled Procedures Name Priority Associated Diagnoses Date/Time EGD, UPPER GI ENDOSCOPY Hepatic cirrhosis, unspe cified hepatic cirrhosis type, unspecified whet her ascites present documented as of this encounter Visit Diagnoses Not on filedocumented in this encounter Care Teams Yeast Culture Developer Relationship Specialty Start Date End Date Maricarmen Galvan APRN PCP - General Family Medicine 05/10/18 [address] [place] [address] documented as of this encounter
--- OUTSIDE RECORDS SUMMARY | 2021-09-05 01:08 | XMS_ITS | Encounter Summary ---
:1950 Author Organization [facility] [address] Care Team Providers Name Role Phone Maricarmen Galvan BORDER MACHINE OPERATOR Primary Care Provider Encounter Details Date Type Department Care Team Description 08/05/2020 Office Visit Rheumatology at [facility] Manny Lugo Psoriatic arthritis [facility] [place] [address] [address] [address] [phone] RHEUMATOLOGY [place], [place] [address] Social History Tobacco Use Types Packs/Day Years Used Date Never Smoker Smokeless Tobacco: Never Used Alcohol Use Standard Drinks/Week Comments No 0 (1 standard drink = 0.6 oz pure alcoho l) Sex Assigned at Date Recorded Not on file documented as of this encounter Last Filed Vital Signs Vital Sign Reading Time Taken Comments Blood Pressure 103/61 08/05/2020 3:00 PM EDT Pulse 92 08/05/2020 3:00 PM EDT Temperature 36.1 ??C (96.9 ??F) 08/05/2020 3:00 PM EDT Respiratory Rate - - Oxygen Saturation 98% 08/05/2020 3:00 PM EDT Inhaled Oxygen Concentration - - Weight 50.3 kg (111 lb) 08/05/2020 3:00 PM EDT Height 154.9 cm (5' 1) 08/05/2020 3:00 PM EDT Body Mass Index 20.97 08/05/2020 3:00 PM EDT documented in this encounter Progress Notes Manny Lugo MD - 08/05/2020 3:00 PM EDT Rheumatology Outpatient follow-up note HPI:??Patient??is a 68-year-old female with a PMH of??osteoporosis,??osteoarthritis (cervical spine disc & facet degenerative disease s/p C-spine surgery 2012),??psoriatic arthritis, fibromyalgia, H TN,??HLD, DM, GERD,??hypothyroidism, vitamin D deficiency,??hemorrhoids, and chronic thrombocytopenia. ?? Rheum History: ?? 1) Psoriatic Arthritis - 08/2018 transferred care to [facility] form Dr. Wang -Dx??in [address] Burleson in [facility] -Affected joints: hand, wrist, elbow, shoulder, knee, ankle, neck -Treatment: Enbrel (+MTX 5 mg weekly for part of the course; as per Dr Burleson notes given to Dr. Wang higher doses of MTC caused liver issues) [phone].?? -??Humira since 2011 (20 mg every other week), intermittently on prednisone with flare-ups -X-rays of hands, feet, and sacroiliac joints in 2012 should no erosions or other evidence of psoriatic arthritis; did show OA. Knee X-rays in 2015 showing early osteoarthritis. -Dr. Wang had been trying to get Xeljanz approved for patient given concern that Humira patient felt not working ?? 2)??Osteoporosis -On calcium 600 mg once BID and Vitamin D3 2000 units daily -DEXA 2015 L spine T score -1.4, -1.9 in L spine in L1, z score 0.6 -DEXA 2012 L spine T score -1.5, z score 0.4 -Off Fosamax since 2010 ?? 3) Following with GI for cirrhosis, suspected to be secondary from DILI, negative LEO/ A1AT/ Vizcaino/ TTG IgAb ?? Interval History: -Last visit in April -Stopped Humira in Feb 2020 -Started Otezla starter pack about 4 weeks ago, ,unsure if this is helpful yet -Takes Tylenol about 3 times a week for neck pain/ headaches -Some dry scalp but no other skin psoriasis -Reports having pain in knuckles and knees -L ankle tendinopathy resolved -Compression gloves helpful. She states she has not tried topical diclofenac gel yet. She wears L wrist brace which she reports is also helpful. -AM stiffness 5-10 mins in hands and knees -Denies red, warm, swollen joints. Sometimes swelling lasting 1 to a few days. Resolves on its on. Can happen with sedentary or with activity but patient generally sedentary. -No longer taking Tramadol -No chest pain, pleurisy, shortness of breath, cough -No fevers, no recent infections -No uveitis, cataract surgery recently, doing well. Has diabetic neuropathy. -Patient reports that she has been off Keppra for a long time, and no recent recurrent seizures. ?? ROS: No fevers, chills, chest pain, SOB. Rest as above in HPI. Medical History: Past Medical History: Diagnosis Date ??? 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 Cervical spondylosis 08/18/2011 ??? diabetes 2001 ??? Dysosmia 08/18/2011 ??? Gastroesophageal reflux disease 08/18/2011 ??? Hyperlipidemia 08/18/2011 ??? Hypertension 08/18/2011 ??? Hypothyroidism 08/18/2011 ??? Menopause, premature 08/18/2011 ??? Osteopenia ??? Psoriatic arthritis 08/18/2011 ??? Rheumatoid arthritis(714.0) 2001 ??? Social anxiety disorder 08/18/2011 ??? Transient global amnesia Surgical History: Past Surgical History: Procedure Laterality Date ??? APPENDECTOMY ??? OVARIAN CYST SURGERY right removed ??? PRO UPPER GI ENDOSCOPY, DIAGNOSTIC N/A 07/25/2019 EGD, UPPER GI ENDOSCOPY performed by Azam Dee MD at [facility] ENDOSCOPY ??? TUBAL LIGATION Family Hx: Family History Problem Relation Age of Onset ??? Myocardial Infarction Father ??? Diabetes Father ??? Parkinsonism Brother ??? Heart Surgery Brother ??? Type 1 Diabetes Sister ??? Thyroid Cancer Daughter ??? Type 1 Diabetes Grandchild ??? Myocardial Infarction Mother No family history of RA, SLE, OA, Sjogren's, Scleroderma, or gout Social History: Social History Socioeconomic History ??? Marital status: Spouse name: Not on file ??? Number of children: Not on file ??? Years of education: Not on file ??? Highest education level: Not on file Occupational History ??? 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 Smoking status: Never Smoker ??? Smokeless tobacco: Never Used Vaping Use ??? Vaping Use: Never used Substance and Sexual Activity ??? Alcohol use: No ??? Drug use: No ??? Sexual activity: Not on file Comment: Deferred Other Topics Concern ??? Service Not Asked ??? Blood Transfusions Not Asked ??? Caffeine Concern Not Asked ??? Occupational Exposure Not Asked ??? Hobby Hazards Not Asked ??? Sleep Concern Not Asked ??? Stress Concern Not Asked ??? Weight Concern Not Asked ??? Special Diet Not Asked ??? Back Care Not Asked ??? Exercise Yes Comment: cannot because of her balance problem ??? Bike Helmet Not Asked ??? Seat Belt Not Asked ??? Self-Exams Not Asked Social History Narrative Born in [place], grew up there and went to high school in [place], did not graduate, and her current , 43 years ago. And have three children. She stayed at home to raise her children. Social Determinants of Health Financial Resource Strain: ??? Difficulty of Paying Living Expenses: Food Insecurity: ??? Worried About Running Out of Food in the Last Year: ??? Ran Out of Food in the Last Year: Transportation Needs: ??? Lack of Transportation (Medical): ??? Lack of Transportation (Non-Medical): Physical Activity: ??? Days of Exercise per Week: ??? Minutes of Exercise per Session: Medications: Current Outpatient Medications on File Prior to Visit Medication Sig Dispense Refill ??? fluticasone propionate (FLOVENT) 110 mcg/actuation HFA Aerosol Inhaler Inhale into the lungs. ??? omeprazole (PriLOSEC) 20 mg Capsule, Delayed Release(E.C.) Take by mouth. ??? cyanocobalamin, Vitamin B-12, (Vitamin B-12) 100 mcg Tablet Take 100 mcg by mouth daily. ??? benzonatate (TESSALON) 200 mg Capsule Take 100 mg by mouth 3 times daily as needed for Cough. ??? apremilast (Otezla) 30 mg Tablet Take 30 mg by mouth 2 times daily. 60 tablet 3 ??? freestyle lite strips USE TO TEST BLOOD GLUCOSE ONCE DAILY ??? fluticasone propion-salmeterol (ADVAIR) 100-50 mcg/dose Disk with Device Inhale 1 puff into the lungs every 12 hours. ??? cholecalciferol, Vitamin D3, (VITAMIN D) 1,000 unit Capsule Take by mouth. ??? calcium-vitamin D3 600 mg calcium- 400 unit Tablet Take by mouth. ??? insulin aspart U-100 (NOVOLOG) Insulin Pen Inject subcutaneously daily. ??? magnesium chloride (SLOW-MAG ORAL) Take by mouth. ??? levothyroxine (SYNTHROID) 75 mcg tablet Take 75 mcg by mouth daily. ??? PARoxetine (PAXIL) 40 mg tablet Take 40 mg by mouth every morning. ??? gabapentin (NEURONTIN) 300 mg capsule Take 600 mg by mouth 3 times daily. 700mg 3xdaily ??? aspirin 81 mg EC tablet Take 81 mg by mouth daily. ??? lovastatin (MEVACOR) 40 mg tablet Take 40 mg by mouth every morning. ??? metFORMIN (GLUCOPHAGE) 500 mg tablet Take 1,000 mg by mouth 2 times daily (with meals). ??? apremilast (Otezla Starter) 10 mg (4)-20 mg (4)-30 mg (47) Tablets, Dose Pack Use as directed onpackage. (Patient not taking: Reported on 08/05/2020) 55 tablet 0 ??? folic acid (FOLVITE) 400 mcg Tablet Take 400 mcg by mouth daily. ??? diclofenac (VOLTAREN) 1 % Gel Apply 2 g topically 2 times daily as needed. (Patient not taking: Reported on 03/10/2019) 100 g 3 ??? lansoprazole (PREVACID) 30 mg Capsule, Delayed Release(E.C.) Take 30 mg by mouth daily. ??? docusate sodium (COLACE) 100 mg Capsule Take 100 mg by mouth 2 times daily. ??? TRAMADOL HCL (TRAMADOL ORAL) Take 50 mg by mouth every morning. Takes at bedtime if needed. ??? leveTIRAcetam (KEPPRA) 500 mg tablet Take 250 mg by mouth 2 times daily. Current Facility-Administered Medications on File Prior to Visit Medication Dose Route Frequency Provider Last Rate Last Admin ??? diclofenac (VOLTAREN) 1% topical gel 2 g 2 g Topical (Top) 4 Times Daily Manny Lugo MD Allergies: Allergies Allergen Reactions ??? Erythromycin Base Abdominal pain ??? Penicillins Hives ??? Plaquenil [Hydroxychloroquine] Reaction unknown ??? Quinine Thrombocytopenia ??? Sulfasalazine Patient not sure about reaction. Physical Examination: BP 103/61 Pulse 92 Temp 36.1 ??C (96.9 ??F) (Temporal) Ht 154.9 cm (5' 1) Wt 50.3 kg (111 lb) SpO2 98% BMI 20.97 kg/m?? General:?Thin elderly female sitting in chair in??NAD HEENT: ??Wearing mask, EOMs intact, no conjunctival injection?? Neck: ??Supple, limited rotation particularly to the left 2/2 pain and stiffness Cardiovascular: ??RRR Lungs: ??CTA b/l Abdomen: ??Soft, nontender, nondistended Back: + kyphosis,?limited ROM of cervical spine (cannot touch chin to chest) Neuro: ??Alert and oriented x3. ??Strength 5/5 throughout, Sensation to light touch is grossly normal throughout. Skin: Small patches of psoriasis on arms b/l ?? Extremities: Shoulders: FROM, non-tender to palpation Elbows:FROM Wrists: FROM,??+??slight warmth at left wrist compared to right wrist but no tenderness or swelling b/l Hands: No synovitis, no MCP compression tenderness, full claw and fist. + Ulnar deviation. + Heberden's and Bill's nodes. Hips: ??FROM, no tenderness Knees: FROM, no effusion, no tenderness, + crepitus Ankles: FROM, non-tender, no effusion on R. + Slight tenderness at R Achilles tendon insertion site with palpation and ankle flexion/extension. Feet: no MTP compression tenderness ?? Laboratory Data: ?? 08/05/2020 -WBC 4.4 -Hgb 10.4, MCV 87 -PLT 108 -Cr 0.73 -LFTs WNL -ESR 51, CRP < 3 04/29/20 -CBC wnl except chronic thrombocytopenia, Plt 104 -CMP wnl, Cr 0.62 -ESR 37 -CRP 1.8 ?Feb 2019 -Chronic thrombocytopenia, Plt 103 -Mild AST 32 -Negative hepatitis C and hepatitis B -Negative??TTG IgA ?? 09/14/18 -CBC with no anemia??Hgb 14.1,??Plt 119,??ESR and CRP wnl.?? -CMP wnl. Cr 0.78 and eGFR 78. Total protein and calcium slightly above normal. -HIV neg.?? -Hep B and C panel neg.?? -Vit D wnl, but near lower end.?? -TB Quant Gold pending ?? 03/2018 -CBC WBC7.3, Hgb 13.1, Plt 116K -CMP Cr. 0.38, Ca 9.4, total protein 8.5. LFTs wnl -ESR 38, CRP 0.41 -25-OH vit D 60.9 ?? Labs from 2012 -HLA-B27 neg -SPEP normal? Labs from 01/27/2018 CBC: WBC 7.46 (20% eos), Hgb 14.1, Plt 102 BMP: Cr. 0.75, eGFR > 60 HbA1C: 6.6 TSH 3.41 AST 19 ALT 23 ?? Studies: ?? 09/14/18??Neck X-ray ? FINDINGS: Post laminectomy C3-C5 with posterior fixation brackets. Hardware intact. No complication. Severe lower cervical spine degenerative disc disease and arthropathy. Increased anterior angulation of the cervical spine. Approximate 2 mm anterolisthesis C3 on C4. ?? Impression ? Post laminectomy C3-C5 with posterior fixation brackets. Hardware intact. No complication. Severe lower cervical spine degenerative disc disease and arthropathy. Increased anterior angulation of the cervical spine. Approximate 2 mm anterolisthesis C3 on C4. ?? 09/14/18 Hand Xray ? FINDINGS: BONES : Decreased bone mineralization. No ankylosis or periostitis. SOFT TISSUES: Amorphous calcification around right right third DIP joint represents hydroxyapatite deposition. JOINTS: 2-5 DIP joints- small osteophytes at scattered DIP joints. Solitary marginal radiolucency at right second DIP joint, degenerative cyst versus erosion.. 2-5 PIP joints- scattered small osteophytes and normal joint spaces. 2-5 MCP joints- no erosions and relative preserved joint spaces Thumb (Basal, scaphoid trapezial trapezoid [STT] and 1 MCP &??1 IP joints)-osteophytes and joint space narrowing more pronounced at STT joints. Radial carpal joint- narrowed bilateral scaphoid fossa and left lunate fossa. No erosions. Bilateral ulnar positive variance more prominent on the left. Distal radioulnar joint - osteoarthropathy more prominent on the left. ?? Impression ? 1. ??No ankylosis or periostitis 2. ??Solitary marginal radiolucency at right 2 DIP joint likely represents degenerative cyst rather than erosions. 3. ??Osteoarthropathy at multiple sites ?? Echo 2013: EF 60%, moderate aortic insufficiency, mild mitral insufficiency, mild TR, mild pulmonic insufficiency, normal PAPs PFTs 2012: DLCO 72% of predicted CXR 2013: Normal 02/08 pharm stress test:??normal ?? Assessment:??Patient??is a 68-year-old female with a PMH of??osteoporosis,??osteoarthritis (cervicalspine disc & facet degenerative disease s/p C-spine surgery 2012),??psoriatic arthritis, fibromyalgia, HTN,??HLD, DM, GERD,??hypothyroidism, vitamin D deficiency,??hemorrhoids, and chronic thrombocytopenia.?She restarted??Humira in August 2018,??and had since improved in terms of morning stiffness and fatigue. ??She has stopped Humira over the last 6 months given discomfort with injections, though she denies any injection site reactions. She has not noticed much difference since being off Humira she was started on Otezla in April but is unsure if this is helpful. She has some pain in her knuckles, knees, and neck, which I suspect is 2/2 to degenerative joint disease. No joint synovitis by history or exam, and no prolonged morning stiffness. Overall I suspect that her joint pain is more so secondary to osteoarthritis rather than inflammatory arthritis. Plan as below. She prefers to switch to an oral medication if possible. Her disease activity fortunately seems relatively stable despite being off the TNFi. She has morning stiffness for 30 minutes or less, no recentflareups, and and exam showing possibly very slight left wrist synovitis with some left ankle Achilles tendinopathy. Her neck and back pain is in the setting of DJD, and she is following at the spine center at [facility] for this. I discussed several options for psoriatic arthritis, and we agreed on pursuingOtezla. Plan as below. ?? Recommendations: -Checked labs today: CBC, CMP, ESR, CRP, see results above (CRP negative, ESR may be elevated in thesetting of anemia) -Continue Otezla 30 mg twice daily. If not helpful, can consider stopping at next visit. -Patient following with precision farming specialist regarding neck pain -Continue topical diclofenac gel as needed -Continue??Calcium 600 mg BID and Vit D3 2000 u daily??for osteopenia. Follow-up with PCP for repeatDEXA scan. -Advised patient to please call rheumatology clinic if she has any worsening joint pain or swelling. -Patient understands and agrees with plan -Follow-up in 6 months ?? The patient was discussed with??Dr. Zaldivar ?? Manny Lugo MD Rheumatology Fellow CC: Maricarmen Galvan APRN documented in this encounter Plan of Treatment Upcoming Encounters Date Type Specialty Care Team Description 09/11/2021 Appointment Radiology Tory Willard APRN [facility] GASTROENTEROLOGY [place], [place] [address] (Juhi rk) 09/11/2021 Laboratory Appointment Lab 09/11/2021 Office Visit Gastroenterology Tory Willard APRN [facility] GASTROENTEROLOGY [place], [place] [address] (Wo rk) 09/11/2021 Office Visit Rheumatology Lorenzo Hermosillo PA [facility] RHEUMATOLOGY [place], [place] [address] (Juhi garner) Scheduled Procedures Name Priority Associated Diagnoses Date/Time EGD, UPPER GI ENDOSCOPY Hepatic cirrhosis, unspe cified hepatic cirrhosis type, unspecified whet her ascites present documented as of this encounter Results CRP, acute inflammation (08/05/2020 4:19 PM EDT) P athologist Signature CRP <3.0 <=4.9 mg/L [facility] Specimen Anatomical Collection Method Collection Time Receive d Time (Source) Location / / Volume Laterality Blood 08/05/2020 4:19 PM 4:45 EDT PM EDT Resulting Agency Comment Spec In Lab Elida Israelew CHEMISTRY ORDERABLES Performing Organization Address City/[facility]/ZIP [place] [address] (ABNORMAL) Sedimentation rate (08/05/2020 4:19 PM EDT) P athologist Signature Sed Rate 51 (H) 3 - 46 [facility] mm/hr [facility] Comment: Effective February 01, 2019 new capillar y photometric technology has resulted in a change in reference ranges. It is r ecommended that each ESR result be reviewed with its own age appropriate re ference range. Specimen Anatomical Collection Method Collection Time Receive d Time (Source) Location / / Volume Laterality Blood 08/05/2020 4:19 PM 4:45 EDT PM EDT Resulting Agency Comment Spec In Lab Elida Israelew HEMATOLOGY ORDERABLES Performing Organization Address City/[facility]/ZIP [place] [address] (ABNORMAL) Comprehensive metabolic panel (non-fasting) (08/05/2020 4:19 PM EDT) P athologist Signature Glucose Lvl 322 (H) 65 - 199 [facility] mg/dL [facility] Comment: Diabetes: >=200 mg/dL plus symp toms BUN 8 8 - 18 mg/dL [facility] Creatinine 0.73 0.70 - 1.20 mg/dL [facility] Sodium 141 135 - 145 mmol/L [facility] Potassium 4.0 3.5 - 5.0 mmol/L [facility] Comment: Please note: ??Patients with WBC >100,00 0 may have falsely elevated Potassium levels. ??For accurate Potassium quantif ication in these patients send serum separator tube (gold top) for subsequent determinations. ??Contact the Clinical Chemistry Laboratory if there are any qu estions. Chloride 103 98 - 107 mmol/L [facility] CO2 26 22 - 31 mmol/L [facility] Anion Gap 12 5 - 15 mmol/L [facility] Calcium 9.7 8.5 - 10.5 mg/dL [facility] Total Protein 7.9 6.1 - 8.0 gm/dL [facility] Albumin 4.3 3.2 - 5.2 gm/dL [facility] AST 19 0 - 30 unit/L [facility] ALT 13 0 - 30 unit/L [facility] Alk Phos 68 35 - 105 unit/L [facility] Total Bilirubin 0.2 0.2 - 1.3 mg/dL [facility] Estimated GFR 83 >=60 mL/min/1.73 m?? [facility] Comment: This patient? s estimated glomerular filtration rate (eGFR) is between 83 mL/min/1.73 m2 (patients with less muscl e mass) and 96 mL/min/1.73 m2 (patients with more muscle mass) as determined by the CKD-EPI equation. Assessment of eGFR is not appropriate when creatinine concentrations are rapidly changing. For clinical decisions where creatinine clearance will affect therapy, a 24-hour urine creatinine clearance may b e advised. Assignment of CKD stage 1 - 5 for patien ts with an eGFR near the transition point between stages may be based on cli nical assessment of muscle mass and symptoms in addition to eGFR. Specimen Anatomical Collection Method Collection Time Receive d Time (Source) Location / / Volume Laterality Blood 08/05/2020 4:19 PM 4:45 EDT PM EDT Resulting Agency Comment Spec In Lab Elida Zaldivar DO CHEMISTRY ORDERABLES Performing Organization Address City/State/[place] [address] documented in this encounter Visit Diagnoses Diagnosis Psoriatic arthritis Psoriatic arthropathy documented in this encounter Care Teams Experimental Mechanic Spacecraft Relationship Specialty Start Date End Date Maricarmen Galvan APRN PCP - General Family Medicine 05/10/18 [address] [place] [address] documented as of this encounter
--- OUTSIDE RECORDS SUMMARY | 2021-09-05 01:08 | XMS_ITS | Encounter Summary ---
:1950 Author Organization [facility] Address [facility] [place] [address] Care Team Providers Name Role Phone Maricarmen Galvan JORGE Primary Care Provider Encounter Details Date Type Department Care Team Description 02/06/2020 Office Visit Gastroenterology [place] [facility] [place]uriy Ayers Hepatic cirrhosis, [facility] Robert [place] [address] [facility] cirrhosis type, [facility]ENTER unspecified whether [place]STROENTER[place] [address] Social History Tobacco Use Types Packs/Day Years Used Date Never Smoker Smokeless Tobacco: Never Used Alcohol Use Standard Drinks/Week Comments No 0 (1 standard drink = 0.6 oz pure alcoho l) Sex Assigned at Date Recorded Not on file documented as of this encounter Patient Instructions Patient InstructionsYuriy Ayers APRN - 02/06/2020 11:30 AM EST We had a follow up today for your cirrhosis. We are not completely sure of the cause of your cirrhosis, but it could be due to your having diabetes, something called non-alcoholic steatohepatitis (ALFARO). Your US was done to screen for liver cancer. People with cirrhosis from any cause are at increased risk of developing liver cancer. It is for this reason that we image the liver periodically to look for liver cancer and find it while it is still treatable. I am happy to say there were no lesions in the liver to suggest liver cancer. I suggest repeating an ultrasound in 6 months. Recommend follow up in 6 months with labs, ultrasound and visit. documented in this encounter Progress Notes Yuriy Ayers APRN - 02/06/2020 11:30 AM EST Images from the original note were not included. Hepatology Follow Up Note - Telehealth (via [employer] Patient: Shereen Vega Gender: female : 1950 Provider: Yuriy Ayers NP Referring Physician: Maricarmen Galvan APRN HISTORY OF PRESENT ILLNESS Shereen Vega is a 69 y.o. year old female with history of diabetes, psoriatic arthritis, and cirrhosis. She had an ultrasound today and returns for follow up. She has been feeling well. Her wasn't able to come into the appointment because of COVID so she would like to have things written down because she can't remember things well. PAST MEDICAL/SURGICAL HISTORY Psoriatic arthritis - Took Methotrexate for a short period (under a year). Current taking Humira. Diabetes - past 20 years.. Taking Metformin. Hyperlipidemia Hypothyroid Cirrhosis - first diagnosed 01/2019 with appearance of cirrhotic appearing liver on imaging and intra-abdominal varices. - EGD 07/25/19: no esophogeal or gastric varices - Negative for iron overload, iron overload, AMA neg, negative viral hepatitis MEDICATIONS No outpatient medications have been marked as taking for the 02/06/20 encounter (Office Visit) with Yuriy Ayers APRN. Current Facility-Administered Medications for the 02/06/20 encounter (Office Visit) with Yuriy Ayres APRN Medication Dose Route Frequency Provider Last Rate Last Dose ??? diclofenac (VOLTAREN) 1% topical gel 2 g 2 g Topical (Top) 4 Times Daily Manny Lugo MD ALLERGIES Allergies Allergen Reactions ??? Erythromycin Base Abdominal pain ??? Penicillins Hives ??? Plaquenil [Hydroxychloroquine] Reaction unknown ??? Quinine Thrombocytopenia ??? Sulfasalazine Patient not sure about reaction. SOCIAL HISTORY , has 3 kids, with grandchildren. No significant alcohol use. FAMILY HISTORY No known hx of liver disease. PHYSICAL EXAM There were no vitals filed for this visit. There is no height or weight on file to calculate BMI. Lab Results Component Value Date WBC 5.9 02/06/2020 HGB 11.6 (L) 02/06/2020 HCT 35.7 02/06/2020 MCV 90.6 02/06/2020 PLATELET 102 (L) 02/06/2020 Recent Labs 02/06/20 1049 INR 1.0 Chemistry Component Value Date/Time NA 140 03/10/2019 1544 K 4.0 03/10/2019 1544 CL 100 03/10/2019 1544 CO2 26 03/10/2019 1544 BUN 11 03/10/2019 1544 CREATININE 0.65 (L) 03/10/2019 1544 Component Value Date/Time CALCIUM 10.1 03/10/2019 1544 ALKPHOS 50 03/10/2019 1544 AST 32 (H) 03/10/2019 1544 ALT 21 03/10/2019 1544 BILITOT 0.4 03/10/[address] Chest 01/06/2019: EGD 07/25/19: Impression: ?- Normal esophagus. No varices. ?- Z-line regular, 34 cm from the ?incisors. ?- Normal stomach. ?- Normal examined duodenum. ?- No specimens collected. Recommendation: ?- Discharge patient to home. ?- Follow up with Yuriy Ayers in ?Hepatology clinic as scheduled. Ultrasound 02/06/20: 1. Coarse liver parenchyma with capsular nodularity, consistent with known cirrhosis. No sonographically evident hepatic mass. 2. Recanalized umbilical vein consistent with underlying portal hypertension. No intra-abdominal ascites. 3. Normal gallbladder. No biliary duct dilatation. ASSESSMENT/PLAN Shereen Vega is a 69 y.o. female with history of diabetes, hyperlipidemia, psoriatic arthritis and newly diagnosed cirrhosis, likely due to ALFARO or medication (prior Methotrexate). The etiology of her cirrhosis is likely due to ALFARO. She does have ALFARO risk factors including diabetes and hyperlipidemia. She is not overweight with a current BMI of 23. She does have a history of methotrexate use although states she took this for less than a year and I would not expect cirrhosis todevelop in that short of a time period. It is possible that she has had some drug-induced liver injury in the past and she reports that her platelets dropped to nearly undetectable after a medication. Her liver enzymes are now normal. 1. Cirrhosis. Etiology possibly ALFARO. Her workup for other causes of liver disease was negative, including iron overload, autoimmune hepatitis, celiac disease, and viral hepatitis. She does have diabetes and hyperlipidemia, so could have ALFARO despite her low BMI (23). Her liver enzymes are normal. Disc ussed the importance of good glycemic control. 2. Varices surveillance. EGD 07/2019 with no varices. Can repeat in 2-3 years. 3. HCC surveillance. US today with no lesions, plan to repeat in 6 months. 4. Preventative health. She should be vaccinated to hepatitis a and B. We discussed that she should not take NSAIDs and that it is okay to take up to 2000 mg of Tylenol per day. Plan: - Follow up in 6 months with labs an Yuriy Ayers APRN Section of Gastroenterology [place] [address] Copy: Maricarmen Galvan APRN [address] / [place] [address] 15 minutes of this 20 minute visit in face to face discussion regarding disease, prognosis and treatment documented in this encounter Plan of Treatment Upcoming Encounters Date Type Specialty Care Team Description 09/11/2021 Appointment Radiology Yuriy Ayers APRN [facility] GASTROENTEROLOGY [place], [place] [address] (Wo rk) 09/11/2021 Laboratory Appointment Lab 09/11/2021 Office Visit Gastroenterology Yuriy Ayers APRN [facility] GASTROENTEROLOGY [place], [place] [address] (Wo rk) 09/11/2021 Office Visit Rheumatology Lorenzo Hermosillo PA [facility] RHEUMATOLOGY [place], [place] [address] (Wo rk) Scheduled Orders Name Type Priority Associated Diagnoses Order S chedule Comprehensive metabolic Lab Routine Hepatic cirrhosis , Expected: 08/06/2020 panel (non-fasting) unspecified hepatic ( Approximate), cirrhosis type, Expires: unspecified whether ascites present CBC (with Diff) Lab Routine Hepatic cirrhosis, Expect ed: 08/06/2020 unspecified hepatic (Approxi mate), cirrhosis type, Expires: unspecified whether ascites present Scheduled Procedures Name Priority Associated Diagnoses Date/Time EGD, UPPER GI ENDOSCOPY Hepatic cirrhosis, unspe cified hepatic cirrhosis type, unspecified whet her ascites present documented as of this encounter Results US Abdomen Limited Hepatology Protocol (08/06/2020 9:46 AM EDT) Anatomical Region Laterality Modality Abdomen Ultrasound Specimen (Source) Anatomical Collection Method Collection Time Re ceived Time Location / / Volume Laterality 08/06/2020 9:33 AM EDT Impressions 08/06/2020 9:58 AM EDT ?? Comparison 02/06/2020. 1. ??Stable coarse nodular liver withou t discrete liver lesion identified. No ascites. 2. ??Normal hepatopedal flow in the sallie n portal vein and stable appearance recanalized umbilical vein Thank you for letting us participate in the care of this patient. ??If you are a health care provider and have any quest ions regarding this report, please contact the number below. ??For patient s who have questions please contact the health transitions rn care coordinator that requested your imaging first. Electronically signed by: Jaz velasquez MD, Radiology [place] ([phone]), at 9:51 AM Thank you for letting us participate in the care of this patient. If you are a health care provid er and have any questions regarding this report, please contact the number below. For patients who have ques tions, please contact the [facility] that requested your imaging first. ?Jaz Burk, Kevyn macedo Physician Electronically Signed Final Report ?? 09:57 am Narrative 08/06/2020 9:58 AM EDT Abdominal ? (Signed Final 08/06/2020 09:57 am) PATIENT INFO: ID #: ? [id number] ?: ??[birth year] (70 yrs)(F) Name: ? SHEREEN Kim ? Visit Date: 08/06/2020 09:33 am ? BO PERFORMED BY: Performed By: ? Reagan Garrison RDMS Attending: ?Elvia SHARPE, Kris Rogel Referred By: ?YURIY AYERS Location: ? [place] SERVICE(S) PROVIDED: UABDLIM - Hepatology Protocol - Abdomin al ? [id number] Limited Survey Single Organ or Quadrant - [id number] INDICATIONS: cirrhosis, screen for hcc COMPARISON: US: Hepatology 02/06/20 ------ LIVER: ------ Right Lobe Length: ?? 14.8 ?? cm Echogenicity/Echotexture: ?? Coarse par enchyma with capsular ? nodularity Portal Veins: ?Hepatopetal Comment: ?Recanalized umbilical vei n. No focal lesions seen. GALLBLADDER: Cholelithiasis: ?No stones visua lized Wall Thickness: ?Normal wall thi ckness Focal Tenderness: ?Negative sonogra phic Vee's sign BILIARY TRACT: Intrahepatic Ducts: ?? Normal Extrahepatic Ducts: ?? Normal Common Duct Size: ? 3.0 ? mm FLUID COLLECTIONS: No ascites in the imaged RUQ & RLQ. Procedure Note Jaz Lock MD - 07/23 Abdominal (Signed Final 08/06/2020 09:5 7 am) PATIENT INFO: ID #: [id number] : [birth year] (70 y rs)(F) Name: SHEREEN Kim Visit Date: 08/06/2020 09:33 am BO PERFORMED BY: Performed By: Rhiannon Garrison RDMS Attending: Jaz Gan MD Referred By: YURIY AYERS Location: [place] SERVICE(S) PROVIDED: [facility] Hepatology Protocol - [place] [id number] Limited Survey Single Organ or Quadrant - [id number] INDICATIONS: cirrhosis, screen for hcc COMPARISON: US: Hepatology 02/06/20 ------ LIVER: ------ Right Lobe Length: 14.8 cm Echogenicity/Echotexture: Coarse parenc hyma with capsular nodularity Portal Veins: Hepatopetal Comment: Recanalized umbilical vein. No focal lesions seen. GALLBLADDER: Cholelithiasis: No stones visualized Wall Thickness: Normal wall thickness Focal Tenderness: Negative sonographic Vee's sign BILIARY TRACT: Intrahepatic Ducts: Normal Extrahepatic Ducts: Normal Common Duct Size: 3.0 mm FLUID COLLECTIONS: No ascites in the imaged RUQ & RLQ. IMPRESSION Comparison 02/06/2020. 1. Stable coarse nodular liver without discrete liver lesion identified. No ascites. 2. Normal hepatopedal flow in the main portal vein and stable appearance recanalized umbilical vein Thank you for letting us participate in the care of this patient. If you are a health care provider and have any quest ions regarding this report, please contact the number below. For patients who have questions please contact the health transitions rn care coordinator that requested your imaging first. Electronically signed by: Jaz velasquez MD, Radiology [place] ([phone]), at 9:51 AM Thank you for letting us participate in the care of this patient. If you are a health care provid er and have any questions regarding this report, please contact the number below. For patients who have ques tions, please contact the [facility] professio nal that requested your imaging first. Jaz Burk, Staff Ph ysician Electronically Signed Final Report 08/06 09:57 am Yuriy Ayers APRN IMG US GEN ORDERABLES Prothrombin Time (08/05/2020 4:19 PM EDT) P athologist Signature PT 12.1 9.4 - 12.5 [facility] LABORATORY INR 1.1 [facility]OR[facility] Comment: An INR <2.0 indicates adequate [...] EDT Resulting Agency Comment Spec In Lab Yuriy Ayers APRN HEMATOLOGY ORDERABLES Performing Organization Address City/State/[place] [address] documented in this encounter Visit Diagnoses Diagnosis Hepatic cirrhosis, unspecified hepatic c irrhosis type, unspecified whether ascites present Hepatic cirrhosis, unspecified hepatic c irrhosis type, unspecified whether ascites present documented in this encounter Care Teams Administration Assistant Relationship Specialty Start Date End Date Maricarmen Galvan APRN PCP - General Family Medicine 05/10/18 [address] [place] [address] documented as of this encounter
--- OUTSIDE RECORDS SUMMARY | 2021-09-05 01:08 | XMS_ITS | Encounter Summary ---
:1950 [place] [address] Care Team Providers Name Role Phone Maricarmen Galvan RAMPMAN Primary Care Provider Encounter Details Date Type Department Care Team Description 03/12/2021 Laboratory Appointment Lab 3L [facility] [place] [address] Social History Tobacco Use Types Packs/Day Years Used Date Never Smoker Smokeless Tobacco: Never Used Alcohol Use Standard Drinks/Week Comments No 0 (1 standard drink = 0.6 oz pure alcoho l) Sex Assigned at Date Recorded Not on file documented as of this encounter Plan of Treatment Upcoming Encounters Date Type Specialty Care Team Description 09/11/2021 Appointment Radiology Tory Willard APRN [facility] GASTROENTEROLOGY [place], [place] [address] (Juhi rk) 09/11/2021 Laboratory Appointment Lab 09/11/2021 Office Visit Gastroenterology Tory Willard APRN [facility] GASTROENTEROLOGY [place], [place] [address] (Wo rk) 09/11/2021 Office Visit Rheumatology Lorenzo Hermosillo PA [facility] RHEUMATOLOGY [place], [place] [address] (Wo rk) Scheduled Procedures Name Priority Associated Diagnoses Date/Time EGD, UPPER GI ENDOSCOPY Hepatic cirrhosis, unspe cified hepatic cirrhosis type, unspecified whet her ascites present documented as of this encounter Procedures Procedure Name Priority Date/Time Associated Comments Diagnosis HEMOGRAM Routine 03/12/2021 8:45 AM Liver cirrhosis Result s for this EST secondary to ALFARO procedure are in the results section. DIFFERENTIAL, Routine 03/12/2021 8:45 AM Liver cirrhosis Resul ts for this AUTOMATED EST secondary to ALFARO procedure are in the results section. HC VENIPUNCTURE Routine 03/12/2021 8:45 AM Liver cirrhosis Res ults for this EST secondary to ALFARO procedure are in the results section. HC PROTHROMBIN TIME Routine 03/12/2021 8:45 AM Liver cirrhosis Results for this EST secondary to ALFARO procedure are in the results section. HC CBC,PLT & AUTO DIFF Routine 03/12/2021 8:45 AM Liver cirrho sis EST secondary to ALFARO COMPREHENSIVE Routine 03/12/2021 8:45 AM Liver cirrhosis Resul ts for this METABOLIC PANEL EST secondary to ALFARO procedu re are in (NON-FASTING) the results section. documented in this encounter Results (ABNORMAL) Differential, Automated (03/12/2021 8:45 AM EST) [facility] gist Method Time Signature Neutrophils % 34.2 % [facility] LABOR[facility] Neutr Abs (ANC) 2.37 1.70 - [facility] 6.10 [facility] x10(3)/[facility] LABORATORY Lymphocytes % 28.6 % [facility] Lymphocytes Abs 2.0 0.9 - 3.2 [facility] x10(3)/[facility] LABORATORY Monocytes % 7.8 % [facility] Monocyte Abs 0.5 0.3 - 0.9 [facility] x10(3)/[facility] LABORATORY Eosinophils % 27.8 % [facility] Eosinophils Abs 1.9 (H) 0.0 - 0.4 [facility] x10(3)/[facility] LABORATORY Basophils % 1.3 % [facility] Basophils Abs 0.1 0.0 - 0.1 [facility] x10(3)/[facility] LABORATORY Immature Gran % 0.30 % [facility] Comment: Immature granulocytes(IG's)percentage an d absolute count will include metamyelocytes, myelocytes, and promyelo cytes. Blood smears from CBCs yielding IG's will be scanned manually for concor dance. If this scan disagrees with the automated IG or if promyelocytes are not ed, a manual differential will be performed. Judy Gran Abs 0.02 0.00 - 0.04 x10(3)/[facility] LABORATORY Specimen Anatomical Collection Method Collection Time Receive d Time (Source) Location / / Volume Laterality Blood 03/12/2021 8:45 AM 9:02 EST AM EST Resulting Agency Comment Spec In Lab Joe SHERIFF HEMATOLOGY ORDERABLES Performing Organization Address City/State/[place] [address] (ABNORMAL) Hemogram (03/12/2021 8:45 AM EST) Analysis Performed At Patho logist Time Signature WBC 6.9 4.0 - 9.5 [facility] x10(3)/[facility] LABORATORY RBC 3.77 (L) 4.00 - [facility].21 [facility] x10(6)/[facility] LABORATORY Hemoglobin 10.8 (L) 11.7 - [facility] 15.5 g/dL [facility] Hematocrit 32.6 (L) 35.7 - [facility] 45.8 % [facility] MCV 86.5 82.6 - [facility] 94.4 [facility] LABORATORY MCH 28.6 27.1 - JOSÉ PRISCA 32.0 pg [facility] LABORATORY MCHC 33.1 31.7 - [facility] 35.0 g/dL [facility] Platelets 103 (L) 145 - 357 [facility] x10(3)/[facility] LABORATORY RDWSD 48.8 (H) 37.0 - [facility] PRISCA 46.0 [facility] LABORATORY RDWCV 15.7 (H) 11.5 - [facility] PRISCA 14.1 % [facility] LABORATORY MPV 10.2 7.6 - 12.9 [facility] LABORATORY nRBC % Auto 0.0 % [facility] nRBC Abs Auto 0.000 0.000 - [facility] PRISCA 0.000 [facility] x10(3)/[facility] LABORATORY Specimen Anatomical Collection Method Collection Time Receive d Time (Source) Location / / Volume Laterality Blood 03/12/2021 8:45 AM 2 9:02 EST AM EST Resulting Agency Comment Spec In Lab Joe SHERIFF HEMATOLOGY ORDERABLES Performing Organization Address City/State/[place] [address] Comprehensive metabolic panel (non-fasting) (03/12/2021 8:45 AM EST) P athologist Signature Glucose Lvl 187 65 - 199 [facility] mg/dL [facility] LABOR[facility]ORY Comment: Diabetes: >=200 mg/dL plus symp toms BUN 15 8 - 18 mg/dL [facility] Creatinine 0.71 0.70 - 1.20 mg/dL [facility] LABOR[facility] Sodium 138 135 - 145 mmol/L [facility] LABORATORY Potassium 4.0 3.5 - 5.0 mmol/L [facility] LABORATORY Comment: Please note: ??Patients with WBC >100,00 0 may have falsely elevated Potassium levels. ??For accurate Potassium quantif ication in these patients send serum separator tube (gold top) for subsequent determinations. ??Contact the Clinical Chemistry Laboratory if there are any qu estions. Chloride 102 98 - 107 mmol/L [facility] CO2 27 22 - 31 mmol/L [facility] Anion Gap 9 5 - 15 mmol/L [facility] Calcium 9.9 8.5 - 10.5 mg/dL [facility]OR[facility] Total Protein 7.9 6.1 - 8.0 g/dL [facility] LAB[facility] Albumin 4.4 3.2 - 5.2 g/dL [facility] AST 19 0 - 30 unit/L [facility] ALT 13 0 - 30 unit/L [facility] Alk Phos 67 35 - 105 unit/L [facility] Total Bilirubin 0.4 0.2 - 1.3 mg/dL [facility] LABORAT[facility] Estimated GFR 86 >=60 mL/min/1.73 m?? [facility] Comment: This patient? s estimated glomerular filtration rate (eGFR) is between 86 mL/min/1.73 m2 (patients with less muscl e mass) and 99 mL/min/1.73 m2 (patients with more muscle mass) [...] (Source) Location / / Volume Laterality Blood 03/12/2021 8:45 AM 2 9:02 EST AM EST Resulting Agency Comment Spec In Lab Marika Welch MD CHEMISTRY ORDERABLES Performing Organization Address City/[facility] [place] [address] Prothrombin Time (03/12/2021 8:45 AM EST) P athologist Signature PT 12.0 9.4 - 12.5 [facility] LABORATORY INR 1.1 [facility] Comment: An INR <2.0 indicates [...] (Source) Location / / Volume Laterality Blood 03/12/2021 8:45 AM 2 9:02 EST AM EST Resulting Agency Comment Spec In Lab Marika Welch MD HEMATOLOGY ORDERABLES Performing Organization Address [facility] [place] [address] AFP tumor marker (03/12/2021 8:45 AM EST) P athologist Signature AFP <1.9 <=8.3 ng/mL [facility] Specimen Anatomical Collection Method Collection Time Receive d Time (Source) Location / / Volume Laterality Blood 03/12/2021 8:45 AM 9:02 EST AM EST Resulting Agency Comment Spec In Lab Marika Welch MD CHEMISTRY ORDERABLES Performing Organization Address City/State/[place] [address] documented in this encounter Visit Diagnoses Diagnosis Liver cirrhosis secondary to ALFARO Other chronic nonalcoholic liver disease documented in this encounter Care Teams Acquisition Editor Relationship Specialty Start Date End Date Maricarmen Galvan APRN PCP - General Family Medicine 05/10/18 [address] [place] [address] documented as of this encounter
--- OUTSIDE RECORDS SUMMARY | 2021-09-05 01:08 | XMS_ITS | Encounter Summary ---
:1950 Author Organization [place] [place] [address] Care Team Providers Name Role Phone Maricarmen Galvan APRN Primary Care Provider Encounter Details Date Type Department Care Team Description 05/06/2020 Notes Only Care Management Kaleb Puga [facility] [place] [address] Social History Tobacco Use Types Packs/Day Years Used Date Never Smoker Smokeless Tobacco: Never Used Alcohol Use Standard Drinks/Week Comments No 0 (1 standard drink = 0.6 oz pure alcoho l) Sex Assigned at Date Recorded Not on file documented as of this encounter Progress Notes Kaleb Puga - 05/06/2020 11:37 AM EDT I sent the application for assistance with Otezla to the patient for them to complete, sign and return to the Medication Assistance Program, along with proof of income. I will follow through with the remainder of the application once everything is returned to me. Jennifer Judd RPH - 05/06/2020 11:37 AM EDT [facility], Manager Intr[employer] Assistance Approval Approval Dates: 07/01/2020 to 02/21/2021 Medication: Otezla Manager Intranet: [employer] Patient Notified of Approval: Yes Additional Notes: For any questions relating to this appeal please reach out directly to your section's specialty pharmacist. Jennifer Judd RPH 07/02/20 10:42 AM documented in this encounter Plan of Treatment Upcoming Encounters Date Type Specialty Care Team Description 09/11/2021 Appointment Radiology Tory Willard APRN [facility] [place], [place] [address] (Wo rk) 09/11/2021 Laboratory Appointment Lab 09/11/2021 Office Visit Gastroenterology Tory Willard APRN [facility] [place], [place] [address] (Wo rk) 09/11/2021 Office Visit Rheumatology Lorenzo Hermosillo, SHARITA [facility] [place], [place] [address] (Wo rk) Scheduled Procedures Name Priority Associated Diagnoses Date/Time EGD, UPPER GI ENDOSCOPY Hepatic cirrhosis, unspe cified hepatic cirrhosis type, unspecified whet her ascites present documented as of this encounter Visit Diagnoses Not on filedocumented in this encounter Care Teams Truck Repair Service Estimator Relationship Specialty Start Date End Date Maricarmen Galvan APRN PCP - General Family Medicine 05/10/18 [address] [place] [address] documented as of this encounter
--- OUTSIDE RECORDS SUMMARY | 2021-09-05 01:08 | XMS_ITS | Encounter Summary ---
:1950 Author Organization [place] [address] Care Team Providers Name Role Phone Cole Maricarmen Padilla APRN Primary Care Provider Encounter Details Date Type Department Care Team Description 08/06/2020 Office Visit Gastroenterology at [facility] Joe Hong Liver cirrhosis [facility] SHARITA Waldrop [place] [address] [facility] (Primary Dx) [phone] [place] [address] Social History Tobacco Use Types Packs/Day Years Used Date Never Smoker Smokeless Tobacco: Never Used Alcohol Use Standard Drinks/Week Comments No 0 (1 standard drink = 0.6 oz pure alcoho l) Sex Assigned at Date Recorded Not on file documented as of this encounter Last Filed Vital Signs Vital Sign Reading Time Taken Comments Blood Pressure 110/65 08/06/2020 11:24 AM EDT Pulse 91 08/06/2020 11:24 AM EDT Temperature - - Respiratory Rate - - Oxygen Saturation - - Inhaled Oxygen Concentration - - Weight 50.6 kg (111 lb 8 oz) 08/06/2020 11:24 AM EDT Height 154.9 cm (5' 1) 08/06/2020 11:24 AM EDT Body Mass Index 21.07 08/06/2020 11:24 AM EDT documented in this encounter Progress Notes Joe Hong PA - 08/06/2020 11:30 AM EDT Hepatology Follow Up Note Patient: Shereen Vega Gender: female : 1950 Provider: SHARITA Champagne Referring Physician: Maricarmen Galvan APRN HISTORY OF PRESENT ILLNESS Shereen Vega is a 70 y.o. year old female with history of diabetes, psoriatic arthritis, and cirrhosis. She had an ultrasound today and returns for follow up. She was last seen by Tory Willard APRN in January. She is doing well without any major complaints today. She denies abdominal pain, bloating/swelling, jaundice, edema, or confusion/memory issues. She states he sugars have been up and down, but her qrrdP2b was just above 7%. She was started on Otezla in the last month for Rheumatology. PAST MEDICAL/SURGICAL HISTORY Psoriatic arthritis - Took [...] overload, AMA neg, negative viral hepatitis MEDICATIONS Outpatient Medications Marked as Taking for the 08/06/20 encounter (Office Visit) with Joe Hong PA Medication Sig Dispense Refill ??? fluticasone propionate (FLOVENT) 110 mcg/actuation HFA Aerosol Inhaler Inhale into the lungs. ??? omeprazole (PriLOSEC) 20 mg Capsule, Delayed Release(E.C.) Take by mouth. ??? cyanocobalamin, Vitamin B-12, (Vitamin B-12) 100 mcg Tablet Take 100 mcg by mouth daily. ??? benzonatate (TESSALON) 200 mg Capsule Take 100 mg by mouth 3 times daily as needed for Cough. ??? diclofenac (VOLTAREN) 1 % Gel Apply 2 g topically 2 times daily as needed. 100 g 3 ??? apremilast (Otezla) 30 mg Tablet Take 30 mg by mouth 2 times daily. 60 tablet 3 ??? freestyle lite strips USE TO TEST BLOOD GLUCOSE ONCE DAILY ??? fluticasone propion-salmeterol (ADVAIR) 100-50 mcg/dose Disk with Device Inhale 1 puff into the lungs every 12 hours. ??? folic acid (FOLVITE) 400 mcg Tablet Take 400 mcg by mouth daily. ??? lansoprazole (PREVACID) 30 mg Capsule, Delayed Release(E.C.) Take 30 mg by mouth daily. ??? cholecalciferol, Vitamin D3, (VITAMIN D) 1,000 unit Capsule Take by mouth. ??? calcium-vitamin D3 600 mg calcium- 400 unit Tablet Take by mouth. ??? docusate sodium (COLACE) 100 mg Capsule Take 100 mg by mouth 2 times daily. ??? insulin aspart U-100 (NOVOLOG) Insulin Pen Inject subcutaneously daily. ??? magnesium chloride (SLOW-MAG ORAL) Take by mouth. ??? levothyroxine (SYNTHROID) 75 mcg tablet Take 75 mcg by mouth daily. ??? TRAMADOL HCL (TRAMADOL ORAL) Take 50 mg by mouth every morning. Takes at bedtime if needed. ??? PARoxetine (PAXIL) 40 mg tablet Take 40 mg by mouth every morning. ??? gabapentin (NEURONTIN) 300 mg capsule Take 600 mg by mouth 3 times daily. 700mg 3xdaily ??? leveTIRAcetam (KEPPRA) 500 mg tablet Take 250 mg by mouth 2 times daily. ??? aspirin 81 mg EC tablet Take 81 mg by mouth daily. ??? lovastatin (MEVACOR) 40 mg tablet Take 40 mg by mouth every morning. ??? metFORMIN (GLUCOPHAGE) 500 mg tablet Take 1,000 mg by mouth 2 times daily (with meals). Current Facility-Administered Medications for the 08/06/20 encounter (Office Visit) with Joe Hong PA Medication Dose Route Frequency Provider Last Rate [...] known hx of liver disease. PHYSICAL EXAM Vitals: 08/06/20 1124 BP: 110/65 BP Location (NBP): Right arm Patient Position: Sitting BP Cuff Sizes: Small Adult (20-26 cm) Pulse: 91 Weight: 50.6 kg (111 lb 8 oz) Height: 154.9 cm (5' 1) Body mass index is 21.07 kg/m??. Constitutional: Well appearing, appropriate, no acute distress, petite stature Skin: No cyanosis, no palmar erythema, no jaundice, no spider angiomata Head: Normocephalic, sclerae anicteric Abdomen: Nondistended Neurologic: Alert and oriented x 3, no asterixis or tremor Extremities: No edema, no clubbing, no muscle wasting, no joint swelling Lab Results Component Value Date WBC 4.4 08/05/2020 HGB 10.4 (L) 08/05/2020 HCT 31.9 (L) 08/05/2020 MCV 86.9 08/05/2020 PLATELET 108 (L) 08/05/2020 Recent Labs 08/05/20 1619 INR 1.1 Chemistry Component Value Date/Time NA 141 08/05/2020 1619 K 4.0 08/05/2020 1619 CL 103 08/05/2020 1619 CO2 26 08/05/2020 1619 BUN 8 08/05/2020 1619 CREATININE 0.73 08/05/2020 1619 Component Value Date/Time CALCIUM 9.7 08/05/2020 1619 ALKPHOS 68 08/05/2020 1619 AST 19 08/05/2020 1619 ALT 13 08/05/2020 1619 BILITOT 0.2 08/05/2020 1619 MELD-Na score: 7 at 08/05/2020 4:19 PM MELD score: 7 at 08/05/2020 4:19 PM Calculated from: Serum Creatinine: 0.73 mg/dL (Using min of 1 mg/dL) at 08/05/2020 4:19 PM Serum Sodium: 141 mmol/L (Using max of 137 mmol/L) at 08/05/2020 4:19 PM Total Bilirubin: 0.2 mg/dL (Using min of 1 mg/dL) at 08/05/2020 4:19 PM INR(ratio): 1.1 at 08/05/2020 4:19 PM Age: 70 years Ultrasound today: LIVER: ------ Right Lobe Length: 14.8 cm Echogenicity/Echotexture: Coarse parenchyma with capsular nodularity Portal Veins: Hepatopetal ?? Comment: Recanalized umbilical vein. No focal lesions seen. ?? GALLBLADDER: Cholelithiasis: No stones visualized Wall Thickness: Normal wall thickness Focal Tenderness: Negative sonographic Vee's sign ?? BILIARY TRACT: Intrahepatic Ducts: Normal Extrahepatic Ducts: Normal Common Duct Size: 3.0 mm ?? FLUID COLLECTIONS: No ascites in the imaged RUQ & RLQ. ?? IMPRESSION Comparison 02/06/2020. 1. Stable coarse nodular liver without discrete liver lesion identified. No ascites. 2. Normal hepatopedal flow in the main portal vein and stable appearance recanalized umbilical vein ASSESSMENT/PLAN Shereen Vega is a 70 y.o. female with history of diabetes, hyperlipidemia, psoriatic arthritis and well-compensated cirrhosis, likely due to ALFARO or medication (prior Methotrexate use, though brief). She has been stable from a liver standpoint since her diagnosis. MELD-Na is 7 with yesterday's labs. 1. Cirrhosis. Etiology possibly ALFARO. Her workup for other causes of liver disease was negative, including iron overload, autoimmune hepatitis, celiac disease, and viral hepatitis. She does have diabetes and hyperlipidemia, so could have ALFARO despite her low BMI (21). Her liver enzymes are normal. Again discussed the importance of good glycemic control, as her non-fasting glucose yesterday was > 300. 2. Varices surveillance. EGD 07/2019 with no varices. Can repeat in 1-2 years. 3. HCC surveillance. US today with no lesions, plan to repeat in 6 months. 4. Preventative health. She should be vaccinated to hepatitis A and B, if not done already through PCP office. We discussed that she should not take NSAIDs and that it is okay to take up to 2000 mg of Tylenol per day. Plan: - Follow up in 6 months with labs an US. They request to coordinate on 02/04 with their previously scheduled Rheumatology appointment. Time spent reviewing records prior to this encounter: 5 minutes Time spent during encounter with patient including counselin minutes Time spent documenting encounter on date of service: 10 minutes Approximate total time devoted to this single encounter on date of service: 33 minutes Joe Hong PA-C Section of Gastroenterology [place] [address] Copy: Maricarmen Galvan APRN [address] / [place] [address] documented in this encounter Plan of Treatment Upcoming Encounters Date Type Specialty Care Team Description 09/11/2021 Appointment Radiology Tory Willrad APRN [facility] [place], [place] [address] (Wo rk) 09/11/2021 Laboratory Appointment Lab 09/11/2021 Office Visit Gastroenterology Tory Willard APRN [facility] [place], [place] [address] (Wo rk) 09/11/2021 Office Visit Rheumatology Lorenzo Hermosillo PA [facility] [place], [place] [address] (Wo rk) Scheduled Procedures Name Priority Associated Diagnoses Date/Time EGD, UPPER GI ENDOSCOPY Hepatic cirrhosis, unspe cified hepatic cirrhosis type, unspecified whet her ascites present documented as of this encounter Results US Abdomen Limited Hepatology Protocol (03/12/2021 9:10 AM EST) Anatomical Region Laterality Modality Abdomen Ultrasound Specimen (Source) Anatomical Collection Method Collection Time Re ceived Time Location / / Volume Laterality 03/12/2021 9:08 AM EST Impressions 03/12/2021 9:23 AM EST 1. ??Similar coarse liver parenchyma wi th capsular nodularity consistent with known cirrhosis. No sonographically annie dent hepatic mass. 2. ??No ascites in the imaged right upp er and right lower quadrants of the abdomen. 3. ??Redemonstrated recanalized umbilic al vein consistent with underlying portal hypertension. Electronically signed by: Elida Allen MD, Radiology [place] ([phone]), at 9:15 AM Thank you for letting us participate in the care of this patient. If you are a [facility] er and have any questions regarding this report, please contact the number above. For patients who have ques tions, please contact the [facility] that requested your imaging first. ? Elida Allen, Staff Physician Electronically Signed Final Report ?? 09:22 am Narrative 03/12/2021 9:23 AM EST Abdominal ? (Signed Final 03/12/2021 09:22 am) PATIENT INFO: ID #: ? [id number] ?: ??[birth year] (70 yrs)(F) Name: ? SHEREEN Kim ? Visit Date: 03/12/2021 09:08 am ? BO PERFORMED BY: Performed By: ? Apryl Crockett RDMS Attending: ?Tiffany SHARPE, Elida Casper Referred By: ?MARIKA STEWART Location: ? [place] SERVICE(S) PROVIDED: UABDLIM - Hepatology Protocol - Abdomin al ? [id number] Limited Survey Single Organ or Quadrant - [id number] INDICATIONS: compensated ALFARO cirrhosis, screen for hepatoma COMPARISON: Ultrasound abdomen limited hepatology p rotocol: 08/06/20 ------ LIVER: ------ Right Lobe Length: ?? 16.1 ?? cm Echogenicity/Echotexture: ?? Coarse par enchyma with capsular ? nodularity Comment: ?No focal lesion seen. Rec analized umbilical vein ? redemonstrated. GALLBLADDER: Cholelithiasis: ?No stones visua lized Wall Thickness: ?Normal wall thi ckness Focal Tenderness: ?Negative sonogra phic Vee's sign BILIARY TRACT: Intrahepatic Ducts: ?? Normal Extrahepatic Ducts: ?? Normal where see n Common Duct Size: ? 3.0 ? mm FLUID COLLECTIONS: No ascites in the imaged RUQ & RLQ. Procedure Note Elida Allen MD - 03/12/2021Formatt ing of this note might be different from the original. Abdominal (Signed Final 03/12/2021 09:2 2 am) PATIENT INFO: ID #: [id number] : [birth year] (70 y rs)(F) Name: SHEREEN Kim Visit Date: 03/12/2021 09:08 am VEGA PERFORMED BY: Performed By: Apryl Crockett RDMS Attending: Elida Allen MD Referred By: MARIKA STEWART Location: [place] SERVICE(S) PROVIDED: UABDLIM - Hepatology Protocol - [place]domin [place] [address]262 Limited Survey Single Organ or Quadrant - [id number] INDICATIONS: compensated ALFARO cirrhosis, screen for hepatoma COMPARISON: Ultrasound abdomen limited hepatology p rotocol: 08/06/20 ------ LIVER: ------ Right Lobe Length: 16.1 cm Echogenicity/Echotexture: Coarse parenc hyma with capsular nodularity Comment: No focal lesion seen. Recanali zed umbilical vein redemonstrated. GALLBLADDER: Cholelithiasis: No stones visualized Wall Thickness: Normal wall thickness Focal Tenderness: Negative sonographic Vee's sign BILIARY TRACT: Intrahepatic Ducts: Normal Extrahepatic Ducts: Normal where seen Common Duct Size: 3.0 mm FLUID COLLECTIONS: No ascites in the imaged RUQ & RLQ. IMPRESSION 1. Similar coarse liver parenchyma with capsular nodularity consistent with known cirrhosis. No sonographically annie dent hepatic mass. 2. No ascites in the imaged right upper and right lower quadrants of the abdomen. 3. Redemonstrated recanalized umbilical vein consistent with underlying portal hypertension. Electronically signed by: Elida Allen MD, [facility] ([phone]), at 9:15 AM Thank you for letting us participate in the care of this patient. If you are a [facility] er and have any questions regarding this report, please contact the number above. For patients who have ques tions, please contact the [facility] profess[facility] nal that requested your imaging first. Elida Allen, Staff Physician Electronically Signed Final Report 03/12 09:22 am Marika Stewart MD [facility] GEN ORDERABLES AFP tumor marker (03/12/2021 8:45 AM EST) athologist Signature AFP <1.9 <=8.3 ng/mL [facility] Specimen Anatomical Collection Method Collection Time Receive d Time (Source) Location / / Volume Laterality Blood 03/12/2021 8:45 AM 2 9:02 EST AM EST Resulting Agency Comment Spec In Lab Marika Stewart MD CHEMISTRY ORDERABLES Performing Organization Address City/State/[place] [address] Prothrombin Time (03/12/2021 8:45 AM EST) P athologist Signature PT 12.0 9.4 - 12.5 [facility] LABORATORY INR [address] [facility] Comment: An INR <2.0 indicates [...] Resulting Agency Comment Spec In Lab Marika Stewart MD HEMATOLOGY ORDERABLES Performing Organization Address City/State/[place] [address] Comprehensive metabolic panel (non-fasting) (03/12/2021 8:45 AM EST) P athologist Signature Glucose Lvl 187 65 - 199 [facility] mg/dL [facility] Comment: Diabetes: >=200 mg/dL plus symp toms BUN 15 8 - 18 mg/dL [facility] Creatinine 0.71 0.70 - 1.20 mg/dL [facility] Sodium 138 135 - 145 mmol/L [facility] Potassium 4.0 3.5 - 5.0 mmol/L [facility] Comment: Please note: ??Patients with WBC >100,00 0 may have falsely elevated Potassium levels. ??For accurate Potassium quantif ication in these patients send serum separator tube (gold top) for subsequent determinations. ??Contact the Clinical Chemistry Laboratory if there are any qu estions. Chloride 102 98 - 107 mmol/L [facility] CO2 27 22 - 31 mmol/L [facility] Anion Gap 9 5 - 15 mmol/L [facility] Calcium 9.9 8.5 - 10.5 mg/dL [facility] Total Protein 7.9 6.1 - 8.0 g/dL [facility] Albumin 4.4 3.2 - 5.2 g/dL [facility] AST 19 0 - 30 unit/L [facility] ALT 13 0 - 30 unit/L [facility] Alk Phos 67 35 - 105 unit/L [facility] Total Bilirubin 0.4 0.2 - 1.3 mg/dL [facility] Estimated GFR 86 >=60 mL/min/1.73 m?? [facility] Comment: This patient? s estimated [...] Resulting Agency Comment Spec In Lab Marika Stewart MD CHEMISTRY ORDERABLES Performing Organization Address City/State/[place] [address] documented in this encounter Visit Diagnoses Diagnosis Liver cirrhosis secondary to ALFARO - Prim qing Other chronic nonalcoholic liver disease Liver cirrhosis secondary to ALFARO Other chronic nonalcoholic liver disease documented in this encounter Care Teams Superintendent Pier Relationship Specialty Start Date End Date Maricarmen Galvan APRN PCP - General Family Medicine 05/10/18 [address] [place] [address] documented as of this encounter
--- OUTSIDE RECORDS SUMMARY | 2021-09-05 01:08 | XMS_ITS | Clinical Summary ---
:1950 Author Organization [facility] [place] [address] Care Team Providers Name Role Phone Maricarmen Galvan Valerie PATEL Primary Care Provider Allergies Active Allergy Reactions Severity Noted Date Comments Erythromycin Base Abdominal pain Penicillins Hives Hydroxychloroquine 09/14/2018 Reaction unknown Quinine Thrombocytopeni a Sulfasalazine 09/14/2018 Patient not marin re about reaction. Medications Medication Sig Dispensed Refills Start Date End Date Status aspirin 81 mg EC Take 81 mg by mouth 0 Active tablet daily. lovastatin (MEVACOR) Take 40 mg by mouth 0 Active 40 mg tablet every morning. metFORMIN Take 1,000 mg by 0 Act gee (GLUCOPHAGE) 500 mg mouth 2 times daily tablet (with meals). PARoxetine (PAXIL) Take 20 mg by mouth 0 Active 40 mg tablet every morning. gabapentin Take 600 mg by mouth 0 Active (NEURONTIN) 300 mg 3 times daily. 700mg capsule 3xdaily leveTIRAcetam Take 250 mg by mouth 0 Active (KEPPRA) 500 mg 2 times daily. tablet levothyroxine Take 75 mcg by mouth 0 Active (SYNTHROID) 75 mcg daily. tablet TRAMADOL HCL Take 50 mg by mouth 0 Active (TRAMADOL ORAL) every morning. Takes at bedtime if needed. lansoprazole Take 30 mg by mouth 0 Active (PREVACID) 30 mg daily. Capsule, Delayed Release(E.C.) cholecalciferol, Take by mouth. 0 Active Vitamin D3, (VITAMIN D) 1,000 unit Capsule calcium-vitamin D3 Take by mouth. 0 Active 600 mg calcium- 400 unit Tablet docusate sodium Take 100 mg by mouth 0 Active (COLACE) 100 mg 2 times daily. Capsule insulin aspart U-100 Inject 0 Active (NOVOLOG) Insulin subcutaneously Pen daily. magnesium chloride Take by mouth. 0 Active (SLOW-MAG ORAL) folic acid (FOLVITE) Take 400 mcg by 0 Active 400 mcg Tablet mouth daily. fluticasone Inhale 1 puff into 0 Active propion-salmeterol the lungs every 12 (ADVAIR) 100-50 hours. mcg/dose Disk with Device freestyle lite USE TO TEST BLOOD 0 05/30/2019 Active strips GLUCOSE ONCE DAILY apremilast (Otezla Use as directed on 55 tablet 0 04/29/2020 Active Starter) 10 mg package. (4)-20 mg (4)-30 mg (47) Tablets, Dose Pack Additional Information Patient not taking. Reported on 08/05/2020 apremilast (Otezla) 30 mg Take 30 mg by mouth 2 60 tablet 3 Active Tablet times daily. Additional Information Patient not taking. Reported on 03/13/2021 fluticasone propionate Inhale into the lungs. 0 3 Active (FLOVENT) 110 mcg/actuation HFA Aerosol Inhaler omeprazole (PriLOSEC) 20 mg Take by mouth. 0 020 Active Capsule, Delayed Release(E.C.) cyanocobalamin, Vitamin B-12, Take 100 mcg by mouth 0 Active (Vitamin B-12) 100 mcg Tablet daily. benzonatate (TESSALON) 200 mg Take 100 mg by mouth 3 0 Active Capsule times daily as needed for Cough. diclofenac (VOLTAREN) 1 % Gel Apply 2 g topically 2 100 g 3 08/05/2020 Active times daily as needed. insulin detemir U-100 (Levemir Daily. 0 Active FlexTouch U-100 Insuln) Insulin Pen Hospital, Clinic, or Ordered Dose Route Frequency Start Date End D ate Status Other Facility Administered Medication diclofenac (VOLTAREN) 1% 2 g Top 4 TIMES DAILY 07/06/2019 Active topical gel 2 g Active Problems Problem Noted Date Long-term use of high-risk medication 05/04/2020 Chest pain 07/22/2018 Overview: Images from the original note were not i ncluded. 01/31/2018 MIBI ([place]) Hypertension 08/18/2011 Hyperlipidemia 08/18/2011 Hypothyroidism 08/18/2011 Psoriatic arthritis 08/18/2011 Overview: On methotrexate as well as Humira start ed early 2010 Osteoarthritis 08/18/2011 Cervical spondylosis 08/18/2011 Overview: MRI of the cervical spine without contr ast obtained June 15 2011 prominent disc osteophyte at C2-C3 and to a lesser extent at C3-C4, with central canal stenosis greatest at C2-C3. Cord signal is rep ortedly normal although upon my reading, there certainly relative areas of increased signal intensity surrounding the site of greatest stenosis. Last Assessment & Plan: The emerging picture is that of cervical stenosis with myelopathy. Recommended B12, other myelopathic labs. Recommend referral to neurosurgery for evaluation. Social anxiety disorder 08/18/2011 Overview: History of Menopause, premature 08/18/2011 Overview: At age 34 Chronic constipation 08/18/2011 Dysosmia 08/18/2011 Balance problem 08/12/2011 Overview: Onset 02/2011. Had to stop physical thera py because of transportation problems. Last Assessment & Plan: This is a 61-year-old female with recent onset of balance problems. Differential diagnosis includes the following: ?? Early stage or mild cervical stenosis , or narrowing of the canal spinal cord passes through the level of C2-C3. This is supported by some mild symptoms of hyperreflexia, (crossed adductors R>L). T he exam however is not entirely consiste nt with that (neutral toes), and is not a definite explanation. ?? Another possibility is that she can h ave low vitamin B12 levels. This can also cause balance problems. Will need to followup and confirm the levels of methylmalonic acid, and laboratory tests that Dr. Kilpatrick had previously obtained. ?? A third possibility is autoimmune, marin ch as anti-gliadin antibodies, commonly seen in patients who have gluten sensitivity. There is a laboratory test as well, but I will hold off until we obtain the initial studies. ?? In addition, we should obtain evaluat ion by electrical studies of the spinal cord which I will order today. We will see whether we can do this today as well. 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 Overview: History of , secondary to quinine like 2002 Family History Medical History Relation Comments Parkinsonism Brother 1 Heart Surgery Brother 2 Thyroid Cancer Daughter Diabetes Father Myocardial Infarction Father Type 1 Diabetes Grandchild 1 Myocardial Infarction Mother Type 1 Diabetes Sister 3 Relation Status Comments Brother 1 parkinson's disease for 20 years (cleaned up hazardous waste spills) Brother 2 Alive 60, alcohol and hear t disease Daughter 42, alive Father type I diabetes Grandchild 1 type I diabetes Grandchild 2 2 years old Mother Sister 1 (Age 54) muscular dystrophy, diagnosed late in her 50s Sister 2 Alive 61,lately developed type II Sister 3 Alive 59, diabetes type I Sister 4 Alive 58, thyroid Sister 5 Alive 57, Alive and well Sister 6 Alive 49, Alive and well Son 1 41, good health, ove [facility] Son 2 39 Social History Tobacco Use Types Packs/Day Years Used Date Never Smoker Smokeless Tobacco: Never Used Alcohol Use Standard Drinks/Week Comments No 0 (1 standard drink = 0.6 oz pure alcoho l) Sex Assigned at Date Recorded Not on file Last Filed Vital Signs Vital Sign Reading Time Taken Comments Blood Pressure 123/69 03/13/2021 2:25 PM EST Pulse 92 03/13/2021 2:25 PM EST Temperature 35.7 ??C (96.2 ??F) 03/13/2021 2:25 PM EST Respiratory Rate 20 04/29/2020 3:15 PM EST Oxygen Saturation 98% 03/13/2021 2:25 PM EST Inhaled Oxygen Concentration - - Weight 50.8 kg (112 lb) 03/13/2021 2:25 PM EST Height 154.9 cm (5' 1) 03/13/2021 2:25 PM EST Body Mass Index 21.16 03/13/2021 2:25 PM EST Plan of Treatment Upcoming Encounters Date Type Specialty Care Team Description 09/11/2021 Appointment Radiology Tory Willard APRN [facility] ER DR GASTROENTEROLOGY [place], [place] [address] (Wo rk) 09/11/2021 Laboratory Appointment Lab 09/11/2021 Office Visit Gastroenterology Tory Willard APRN [facility] ER GASTROENTEROLOGY [place], [place] [address] (Wo rk) 09/11/2021 Office Visit Rheumatology Lorenzo Hermosillo, [facility] ER RHEUMATOLOGY [place], [place] [address] (Wo rk) Scheduled Procedures Name Priority Associated Diagnoses Date/Time EGD, UPPER GI ENDOSCOPY Hepatic cirrhosis, unspe cified hepatic cirrhosis type, unspecified whet her ascites present Health Maintenance Due Date Last Done Comments Covid-19 Vaccine (#1) 1954 Tdap adult 1968 Tetanus vaccine 1968 Breast Cancer Share Decision Needed 1989 Colonoscopy 1994 Breast Cancer screening 05/14/1999 Zoster vaccine (1 of 2) 05/14/1999 Advance Directive 2004 Bone Density Scan 2014 Pneumoccocal Vaccine: 65+ (1 - PCV) 2014 Influenza (Flu) vaccine (1 of - 10/23/2021 Influenza standard series) Hepatitis C Screening Completed 03/10/2019, 09/14/2018 Insurance Payer Benefit Plan / Subscriber ID Effective Dates Phone Addre ss Type Group MEDICARE MEDICARE PART A [id number] 2014-Present [id number] [place] [id number] MEDICARE BH MEDICARE [id number] 2016-Presen [id number] [place] [id number] Care Teams District Fire Chief Relationship Specialty Start Date End Date Maricarmen Galvan APRN PCP - General Family Medicine 05/10/18 [address] [place] [address]
--- OUTSIDE RECORDS SUMMARY | 2021-09-05 01:08 | XMS_ITS | Encounter Summary ---
:1950 Author Organization [facility] [place] [address] Care Team Providers Name Role Phone Maricarmen Galvan CONCRETE POLISHER Primary Care Provider Encounter Details Date Type Department Care Team Description 05/15/2021 Telephone Pharmacy at [facility] [place] [address] Social History Tobacco Use Types Packs/Day Years Used Date Never Smoker Smokeless Tobacco: Never Used Alcohol Use Standard Drinks/Week Comments No 0 (1 standard drink = 0.6 oz pure alcoho l) Sex Assigned at Date Recorded Not on file documented as of this encounter Miscellaneous Notes Telephone Encounter - Jennifer Judd RP - 06/06/2021 1:39 PM EDT After investigating this issue further, we learned in order for the patient to qualify for the program, she must be in the process of applying for insurance or they will not consider her application. Ispoke with [facility] and told them they need to at least be in process of applying for insurance and then they will be able to apply. They are aware, but I am not sure if they are going to follow thru with applying. Telephone Encounter - Jennifer Judd RP - 05/15/2021 9:41 AM EDT [facility]- Director Account Management Assistance Update The [facility] has looked into assistance for the following patient, but we have not been able to find any copay cards or foundations with available funding for them. The patient has been provided information to apply for worm farmer assistance program to receive free medication. The [facility] will follow-up with the patient in 7 days to see if they need any additional guidance. Patient: Shereen Vega : 1950 Medication: Otezla Dosin mg po bid Insurance: n/a Medicare Part D?: unknown PA has been approved, current copay is: Full rouse (I don't think patient has Med D) Jennifer Judd RPH 05/15/21 9:41 AM documented in this encounter Plan of Treatment Upcoming Encounters Date Type Specialty Care Team Description 09/11/2021 Appointment Radiology Tory Willard APRN [facility] ER GASTR[place]YRONE [place], [place] [address] (Wo rk) 09/11/2021 Laboratory Appointment Lab 09/11/2021 Office Visit Gastroenterology Tory Willard APRN [facility] ER [place], [place] [address] (Wo rk) 09/11/2021 Office Visit Rheumatology Lorenzo Hermosillo PA [facility] RHEUMATOLOGY [place], [place] [address] (Wo rk) Scheduled Procedures Name Priority Associated Diagnoses Date/Time EGD, UPPER GI ENDOSCOPY Hepatic cirrhosis, unspe cified hepatic cirrhosis type, unspecified whet her ascites present documented as of this encounter Visit Diagnoses Not on filedocumented in this encounter Care Teams Automatic Pinsetter Adjuster Relationship Specialty Start Date End Date Maricarmen Galvan APRN PCP - General Family Medicine 05/10/18 [address] [place], [place] [address] documented as of this encounter
--- OUTSIDE RECORDS SUMMARY | 2021-09-05 01:08 | XMS_ITS | Encounter Summary ---
:1950 Author Organization [facility] [place] [address] Care Team Providers Name Role Phone Maricarmen Galvan JORGE Primary Care Provider Encounter Details Date Type Department Care Team Description 01/31/2021 Telephone Rheumatology at [facility] [place] [address] Social History Tobacco Use Types Packs/Day Years Used Date Never Smoker Smokeless Tobacco: Never Used Alcohol Use Standard Drinks/Week Comments No 0 (1 standard drink = 0.6 oz pure alcoho l) Sex Assigned at Date Recorded Not on file documented as of this encounter Miscellaneous Notes Telephone Encounter - Janelle Loya - 01/31/2021 4:44 PM EST Lm for pt to call back and reschedule bumped visit. Sending letter documented in this encounter Plan of Treatment Upcoming Encounters Date Type Specialty Care Team Description 09/11/2021 Appointment Radiology Tory Willard APRN [facility] ER GASTROENTEROLOGY [place], [place] [address] (Wo rk) 09/11/2021 Laboratory Appointment Lab 09/11/2021 Office Visit Gastroenterology Tory Willard APRN [facility] GASTROENT[facility]YRONE [place], [place] [address] (Wo rk) 09/11/2021 Office Visit Rheumatology Lorenzo Hermosillo PA [facility] [address] [place], [place] [address] (Wo rk) Scheduled Procedures Name Priority Associated Diagnoses Date/Time EGD, UPPER GI ENDOSCOPY Hepatic cirrhosis, unspe cified hepatic cirrhosis type, unspecified whet her ascites present documented as of this encounter Visit Diagnoses Not on filedocumented in this encounter Care Teams [employer] Relationship Specialty Start Date End Date Maricarmen Galvan APRN PCP - General Family Medicine 05/10/18 [address] [place] [address] documented as of this encounter
--- OUTSIDE RECORDS SUMMARY | 2021-09-05 01:08 | XMS_ITS | Encounter Summary ---
:1950 Author Organization [facility] [place] [address] Care Team Providers Name Role Phone Maricarmen Galvan JORGE Primary Care Provider Encounter Details Date Type Department Care Team Description 08/21/2020 Telephone Rheumatology at [facility] Lorenzo Hermosillo PA [facility] [address] [address] RHEUMATOLOGY [phone] [place], [place] [address] (Wo rk) Social History Tobacco Use Types Packs/Day Years Used Date Never Smoker Smokeless Tobacco: Never Used Alcohol Use Standard Drinks/Week Comments No 0 (1 standard drink = 0.6 oz pure alcoho l) Sex Assigned at Date Recorded Not on file documented as of this encounter Miscellaneous Notes Telephone Encounter - Lorenzo Hermosillo PA - 08/21/2020 1:55 PM EDT To discuss dexa documented in this encounter Plan of Treatment Upcoming Encounters Date Type Specialty Care Team Description 09/11/2021 Appointment Radiology Troy Willard APRN [facility] ER GASTROENTEROLOGY [place], [place] [address] (Wo rk) 09/11/2021 Laboratory Appointment Lab 09/11/2021 Office Visit Gastroenterology Tory Willard APRN [facility] ER GASTROENTEROLOGY [place], [place] [address] (Wo rk) 09/11/2021 Office Visit Rheumatology Lorenzo Hermosillo PA [facility] [place] [address] (Wo rk) Scheduled Procedures Name Priority Associated Diagnoses Date/Time EGD, UPPER GI ENDOSCOPY Hepatic cirrhosis, unspe cified hepatic cirrhosis type, unspecified whet her ascites present documented as of this encounter Visit Diagnoses Not on filedocumented in this encounter Care Teams Sand Slinger Relationship Specialty Start Date End Date Maricarmen Galvan APRN PCP - General Family Medicine 05/10/18 [address] [place] [address] documented as of this encounter
--- OUTSIDE RECORDS SUMMARY | 2021-09-05 01:08 | XMS_ITS | Encounter Summary ---
:1950 Author Organization [facility] Address [facility] [address] [place] [address] Care Team Providers Name Role Phone Maricarmen Galvan JORGE Primary Care Provider Encounter Details Date Type Department Care Team Description 03/12/2021 Office Visit Gastroenterology at [facility] Tory Ayers Hepatic cirrhosis, [facility] Robert [place] [address] [facility] type, [facility] unspecified whether [place]OENTER[place] [address] Social History Tobacco Use Types Packs/Day Years Used Date Never Smoker Smokeless Tobacco: Never Used Alcohol Use Standard Drinks/Week Comments No 0 (1 standard drink = 0.6 oz pure alcoho l) Sex Assigned at Date Recorded Not on file documented as of this encounter Last Filed Vital Signs Vital Sign Reading Time Taken Comments Blood Pressure 100/62 03/12/2021 10:59 AM EST Pulse 91 03/12/2021 10:59 AM EST Temperature - - Respiratory Rate - - Oxygen Saturation - - Inhaled Oxygen Concentration - - Weight 50.9 kg (112 lb 3.2 oz) 03/12/2021 10:59 AM EST Height 154.9 cm (5' 1) 03/12/2021 10:59 AM EST Body Mass Index 21.2 03/12/2021 10:59 AM EST documented in this encounter Progress Notes Tory Ayers APRN - 03/12/2021 11:00 AM EST Hepatology Follow Up Note Patient: Shereen Vega Gender: female : 1950 Provider: TORY AYERS APRN Referring Physician: Maricarmen Galvan APRN HISTORY OF PRESENT ILLNESS Shereen Vega is a 70 y.o. year old female with history of diabetes, psoriatic arthritis, and cirrhosis. She had an ultrasound today and returns for follow up. She has been feeling well, no significant changes in her health. She denies any changes in her memory and has had neurocognitive testing showing no significant decline in cognitive function in the past2 years. Denies any ascites or blood in stool. PAST MEDICAL/SURGICAL HISTORY Psoriatic arthritis - Took [...] Outpatient Medications Marked as Taking for the 03/12/21 encounter (Office Visit) with Tory Ayers APRN Medication Sig Dispense Refill ??? insulin detemir U-100 (Levemir FlexTouch U-100 Insuln) Insulin Pen Daily. ??? fluticasone propionate (FLOVENT) 110 mcg/actuation HFA Aerosol Inhaler Inhale into the lungs. ??? diclofenac (VOLTAREN) 1 % Gel Apply [...] 400 unit Tablet Take by mouth. ??? magnesium chloride (SLOW-MAG ORAL) Take by mouth. ??? levothyroxine (SYNTHROID) 75 mcg tablet Take 75 mcg by mouth daily. ??? PARoxetine (PAXIL) 40 mg tablet Take 20 mg by mouth every morning. ??? gabapentin [...] (with meals). Current Facility-Administered Medications for the 03/12/21 encounter (Office Visit) with Tory Ayers APRN Medication Dose Route Frequency Provider Last [...] hx of liver disease. PHYSICAL EXAM Vitals: 03/12/21 1059 BP: 100/62 BP Location (NB): Left arm Patient Position: Sitting BP Cuff Sizes: Small Adult (20-26 cm) Pulse: 91 Weight: 50.9 kg (112 lb 3.2 oz) Height: 154.9 cm (5' 1) Body mass index is 21.2 kg/m??. Constitutional: Well appearing, appropriate, no acute distress, petite stature Skin: No cyanosis, no palmar erythema, no jaundice, no spider angiomata Neurologic: Alert and oriented x 3, no asterixis or tremor Extremities: No edema, no clubbing, no muscle wasting, no joint swelling Lab Results Component Value Date WBC 6.9 03/12/2021 HGB 10.8 (L) 03/12/2021 HCT 32.6 (L) 03/12/2021 MCV 86.5 03/12/2021 PLATELET 103 (L) 03/12/2021 Recent Labs 03/12/21 0845 INR 1.1 Chemistry Component Value Date/Time NA 138 03/12/2021 0845 K 4.0 03/12/2021 0845 CL 102 03/12/2021 0845 CO2 27 03/12/2021 0845 BUN 15 03/12/2021 0845 CREATININE 0.71 03/12/2021 0845 Component Value Date/Time CALCIUM 9.9 03/12/2021 0845 ALKPHOS 67 03/12/2021 0845 AST 19 03/12/2021 0845 ALT 13 03/12/2021 0845 BILITOT 0.4 03/12/2021 0845 MELD-Na score: 7 at 03/12/2021 8:45 AM MELD score: 7 at 03/12/2021 8:45 AM Calculated from: Serum Creatinine: 0.71 mg/dL (Using min of 1 mg/dL) at 03/12/2021 8:45 AM Serum Sodium: 138 mmol/L (Using max of 137 mmol/L) at 03/12/2021 8:45 AM Total Bilirubin: 0.4 mg/dL (Using min of 1 mg/dL) at 03/12/2021 8:45 AM INR(ratio): 1.1 at 03/12/2021 8:45 AM Age: 70 years Ultrasound today: IMPRESSION 1. Similar coarse liver parenchyma with capsular nodularity consistent with known cirrhosis. No sonographically evident hepatic mass. 2. No ascites in the imaged right upper and right lower quadrants of the abdomen. 3. Redemonstrated recanalized umbilical vein consistent with underlying portal hypertension. ASSESSMENT/PLAN Shereen Vega is a 70 y.o. female with history of diabetes, hyperlipidemia, psoriatic arthritis and well-compensated cirrhosis, likely due to ALFARO or medication (prior Methotrexate use, though brief). She has been stable from a liver standpoint since her diagnosis. MELD-Na is 7 with today's blood work. 1. Cirrhosis. Etiology possibly ALFARO. Her workup for other causes of liver disease was negative, including iron overload, autoimmune hepatitis, celiac disease, and viral hepatitis. She does have diabetes and hyperlipidemia, so could have ALFARO despite her low BMI (21). Her liver enzymes are normal. 2. Varices surveillance. EGD 07/2019 with no varices. Her platelets are low. Plan to place order for repeat EGD, as she will be due by 07/2021. 3. HCC surveillance. US today with no [...] in 6 months with labs an US. - Upper endoscopy in next 3-5 months for varices surveillance, orders placed. Time spent reviewing records prior to this encounter: 5 minutes Time spent during encounter with patient including counselin minutes Time spent documenting encounter on date of service: 6 minutes Approximate total time devoted to this single encounter on date of service: 30minutes Tory Ayers APRN [facility] [place] [address] Copy: Maricarmen Galvan APRN [address] / [place] [address] documented in this encounter Plan of Treatment Upcoming Encounters Date Type Specialty Care Team Description 09/11/2021 Appointment Radiology Tory Ayers APRN [facility] GASTROENTEROLOGY [place], [place] [address] (Wo rk) 09/11/2021 Laboratory Appointment Lab 09/11/2021 Office Visit Gastroenterology Tory Ayers APRN [facility] GASTROENTEROLOGY [place], [place] [address] (Wo rk) 09/11/2021 Office Visit Rheumatology Lorenzo Hermosillo PA [facility] RHEUMATOLOGY [place], [place] [address] (Wo rk) Scheduled Orders Name Type Priority Associated Diagnoses Order S chedule US Abdomen Limited Imaging Routine Hepatic cirrhosis, Exp ected: Hepatology Protocol unspecified hepatic 0 09/09/2021 cirrhosis type, (Approximate ), unspecified whether Expires: 03/12/2022 ascites present Comprehensive metabolic Lab Routine Hepatic cirrhosis , Expected: panel (non-fasting) unspecified hepatic 0 09/09/2021 cirrhosis type, (Approximate ), unspecified whether Expires: 03/12/2022 ascites present CBC (with Diff) Lab Routine Hepatic cirrhosis, Expect ed: unspecified hepatic 09/10/19 cirrhosis type, (Approximate ), unspecified whether Expires: 03/12/2022 ascites present Prothrombin Time Lab Routine Hepatic cirrhosis, Expec ryan: unspecified hepatic 09/10/19 22 cirrhosis type, (Approximate ), unspecified whether Expires: 03/12/2022 ascites present AFP tumor marker Lab Routine Hepatic cirrhosis, Expec ryan: unspecified hepatic 09/10/19 22 cirrhosis type, (Approximate ), unspecified whether Expires: 03/11/2022 ascites present ENDOSCOPY CASE REQUEST: Procedures Routine Hepatic cirrhosis , Ordered: 03/13/2021 EGD, UPPER GI ENDOSCOPY unspecified hepat ic cirrhosis type, unspecified whether ascites present Scheduled Procedures Name Priority Associated Diagnoses Date/Time EGD, UPPER GI ENDOSCOPY Hepatic cirrhosis, unspe cified hepatic cirrhosis type, unspecified whet her ascites present documented as of this encounter Visit Diagnoses Diagnosis Hepatic cirrhosis, unspecified hepatic c irrhosis type, unspecified whether ascites present documented in this encounter Care Teams Truck Shop Mechanic Relationship Specialty Start Date End Date Maricarmen Galvan APRN PCP - General Family Medicine 05/10/18 [address] [place] [address] documented as of this encounter
--- OUTSIDE RECORDS SUMMARY | 2021-09-05 01:08 | XMS_ITS | Encounter Summary ---
:1950 Author Organization [facility] [place] [address] Care Team Providers Name Role Phone Maricarmen Galvan JORGE Primary Care Provider Encounter Details Date Type Department Care Team Description 01/22/2020 Ancillary Procedure Radiology at [facility] Courtney Garrido [address] [place] [address] 10 JACKELYN MORRIS DAY [phone] DR NOLEN-DAMION Nguyen [place], [place] [address] Social History Tobacco Use Types Packs/Day Years Used Date Never Smoker Smokeless Tobacco: Never Used Alcohol Use Standard Drinks/Week Comments No 0 (1 standard drink = 0.6 oz pure alcoho l) Sex Assigned at Date Recorded Not on file documented as of this encounter Plan of Treatment Upcoming Encounters Date Type Specialty Care Team Description 09/11/2021 Appointment Radiology Tory Willard APRN [facility] GASTROENTEROLOGY [place], [place] [address] (Wo rk) 09/11/2021 Laboratory Appointment Lab 09/11/2021 Office Visit Gastroenterology Tory Willard APRN [facility] GASTROENTEROLOGY [place], [place] [address] (Wo rk) 09/11/2021 Office Visit Rheumatology Lorenzo Hermosillo PA [facility] RHEUMATOLOGY [place], [place] [address] (Wo rk) Scheduled Procedures Name Priority Associated Diagnoses Date/Time EGD, UPPER GI ENDOSCOPY Hepatic cirrhosis, unspe cified hepatic cirrhosis type, unspecified whet her ascites present documented as of this encounter Procedures Procedure Name Priority Date/Time Associated Diagnosis Comme nts FILM LIBRARY Routine 01/22/2020 12:00 AM Results for this STORAGE ONLY MR EST procedure ar e in SPINE the results section. documented in this encounter Results Film Library- Storage Only MR Spine (01/22/2020 12:00 AM EST) Specimen (Source) Anatomical Location Collection Method / Collectio n Time Received Time / Laterality Volume Narrative GIO FONSECA - 02/06/2020 3:43 PM EST This exam is auto-finalizing. It's purpo se is for storage only. Courtney Garrido MD IMLetty FILM LIBRARY ORDERABLES Performing Organization Address City/State/ZIP Code Phon e Number [facility] [place], [place] documented in this encounter Visit Diagnoses Not on filedocumented in this encounter Care Teams Sld Inclusion Teacher Relationship Specialty Start Date End Date Maricarmen Galvan, CHIEF DISPATCHER PCP - General Family Medicine 05/10/18 [address] [place] [address] documented as of this encounter
--- OUTSIDE RECORDS SUMMARY | 2021-09-05 01:08 | XMS_ITS | Encounter Summary ---
:1950 Author Organization [facility] Address [address] [place] [address] Care Team Providers Name Role Phone Maricarmen Galvan JORGE Primary Care Provider Encounter Details Date Type Department Care Team Description 02/06/2020 Hospital Encounter Ultrasound at [facility] Tory Ayers Hepatic cirrhosis, [facility] AJORGE unspecified hepatic Drive [facility] cirrhosis type, [place], [place] [address] unspecified whether [phone] GASTROENTEROLOGY ascites present [phone] [place] [address] Social History Tobacco Use Types Packs/Day Years Used Date Never Smoker Smokeless Tobacco: Never Used Alcohol Use Standard Drinks/Week Comments No 0 (1 standard drink = 0.6 oz pure alcoho l) Sex Assigned at Date Recorded Not on file documented as of this encounter Medications at Time of Discharge Medication Sig Dispensed Refills Start Date End Date fluticasone propionate Inhale into the lungs. 0 0 06/22/2019 (FLOVENT) 110 mcg/actuation HFA Aerosol Inhaler omeprazole (PriLOSEC) Take by mouth. 0 06/22/2019 20 mg Capsule, Delayed Release(E.C.) freestyle lite strips USE TO TEST BLOOD 0 020 GLUCOSE ONCE DAILY fluticasone Inhale 1 puff into the 0 propion-salmeterol lungs every 12 hours. (ADVAIR) 100-50 mcg/dose Disk with Device folic acid (FOLVITE) Take 400 mcg by mouth 0 400 mcg Tablet daily. lansoprazole Take 30 mg by mouth 0 (PREVACID) 30 mg daily. Capsule, Delayed Release(E.C.) cholecalciferol, Take by mouth. 0 Vitamin D3, (VITAMIN D) 1,000 unit Capsule calcium-vitamin D3 600 Take by mouth. 0 mg calcium- 400 unit Tablet docusate sodium Take 100 mg by mouth 2 0 (COLACE) 100 mg times daily. Capsule insulin aspart U-100 Inject subcutaneously 0 (NOVOLOG) Insulin Pen daily. magnesium chloride Take by mouth. 0 (SLOW-MAG ORAL) levothyroxine Take 75 mcg by mouth 0 (SYNTHROID) 75 mcg daily. tablet TRAMADOL HCL (TRAMADOL Take 50 mg by mouth 0 ORAL) every morning. Takes at bedtime if needed. PARoxetine (PAXIL) 40 Take 20 mg by mouth 0 mg tablet every morning. gabapentin (NEURONTIN) Take 600 mg by mouth 3 0 300 mg capsule times daily. 700mg 3xdaily leveTIRAcetam (KEPPRA) Take 250 mg by mouth 2 0 500 mg tablet times daily. aspirin 81 mg EC Take 81 mg by mouth 0 tablet daily. lovastatin (MEVACOR) Take 40 mg by mouth 0 40 mg tablet every morning. metFORMIN (GLUCOPHAGE) Take 1,000 mg by mouth 0 500 mg tablet 2 times daily (with meals). adalimumab (Humira,CF, Inject 40 mg 1 kit 11 07/06/2019 04/30/2020 Pen) 40 mg/0.4 mL Pen subcutaneously every 14 Injector Kit days. diclofenac (VOLTAREN) Apply 2 g topically 2 100 g 3 12/201808/05/2020 1 % Gel times daily as needed. documented as of this encounter Plan of Treatment Upcoming Encounters Date Type Specialty Care Team Description 09/11/2021 Appointment Radiology Tory Ayers APRN [facility] GASTROENTEROLOGY [place], [place] [address] (Juhi garner) 09/11/2021 Laboratory Appointment Lab 09/11/2021 Office Visit Gastroenterology Tory Ayers APRN [facility] GASTROENTEROLOGY [place], [place] [address] (Juhi garner) 09/11/2021 Office Visit Rheumatology Lorenzo Hermosillo PA [facility] RHEUMATOLOGY [place], [place] [address] (Juhi garner) Scheduled Procedures Name Priority Associated Diagnoses Date/Time EGD, UPPER GI ENDOSCOPY Hepatic cirrhosis, unspe cified hepatic cirrhosis type, unspecified whet her ascites present documented as of this encounter Procedures Procedure Name Priority Date/Time Associated Diagnosis Comme nts US ABDOMEN LIMITED Routine 02/06/2020 9:53 AM Hepatic cirrhosi s, Results for this HEPATOLOGY PROTOCOL EST unspecified hepatic p rocedure are in cirrhosis type, the results unspecified whether section. ascites present documented in this encounter Results US Abdomen Limited Hepatology Protocol (02/06/2020 9:53 AM EST) Anatomical Region Laterality Modality Abdomen Ultrasound Specimen (Source) Anatomical Collection Method Collection Time Re ceived Time Location / / Volume Laterality 02/06/2020 9:51 AM EST Impressions 02/06/2020 10:20 AM EST 1. ??Coarse liver parenchyma with capsu lar nodularity, consistent with known cirrhosis. No sonographically evident h epatic mass. 2. ??Recanalized umbilical vein consist ent with underlying portal hypertension. No intra-abdominal ascites. 3. ??Normal gallbladder. No biliary odilia t dilatation. Thank you for letting us participate in the care of this patient. For questions regarding this report, please contact t kishor number below. Electronically signed by: Elida Allen MD, Radiology [place] ([phone]), at 10:13 AM Prostate Exam Reason^cirrhosis, screen for varices ? Elida Allen, Staff Physician Electronically Signed Final Report ?? 10:19 am Narrative 02/06/2020 10:20 AM EST Abdominal ? (Signed Final 02/06/2020 10:19 am) PATIENT INFO: ID #: ? [id number] ?: ??[birth year] (69 yrs)(F) Name: ? ELEAZAR Kim ? Visit Date: 02/06/2020 09:51 am ? BO PERFORMED BY: Performed By: ? Hongerrol ORDONEZ, Michael miranda Attending: ?Tiffany SHARPE, Elida Casper Referred By: ?TORY AYERS Location: ? [place] SERVICE(S) PROVIDED: ??UABDLIM - Hepatology Protocol - Abdom inal ? 38618 ??Limited Survey Single Organ or Quadra nt - ??[id number] INDICATIONS: ??cirrhosis, screen for varices COMPARISON: Abdominal ultrasound ??07/28/19 from [facility] ------ LIVER: ------ Right Lobe Length: ?? 15.3 ?? cm Echogenicity/Echotexture: ?? Coarse par enchyma with capsular ? nodularity Comment: ?No focal lesion seen. ??R ecanalized umbilical vein GALLBLADDER: Cholelithiasis: ?No stones visua lized Wall Thickness: ?Normal wall thi ckness Focal Tenderness: ?Negative sonogra phic Vee's sign BILIARY TRACT: Intrahepatic Ducts: ?? Normal Extrahepatic Ducts: ?? Normal where see n Common Duct Size: ? 2.0 ? mm FLUID COLLECTIONS: No ascites in all four quadrants of the abdomen. Procedure Note Elida Allen MD - 02/06/2020Formatt ing of this note might be different from the original. Abdominal (Signed Final 02/06/2020 10:1 9 am) PATIENT INFO: ID #: [id number] : [birth year] (69 y rs)(F) Name: ELEAZAR Kim Visit Date: 02/06/2020 09:51 am SORIANO PERFORMED BY: Performed By: Nessa Pitts RDMS Attending: Elida Allen MD Referred By: TORY AYERS Location: [place] SERVICE(S) PROVIDED: UABDLIM - Hepatology Protocol - Abdomin al [id number] Limited Survey Single Organ or Quadrant - [id number] INDICATIONS: cirrhosis, screen for varices COMPARISON: Abdominal ultrasound 07/28/19 from [facility] ------ LIVER: ------ Right Lobe Length: 15.3 cm Echogenicity/Echotexture: Coarse parenc hyma with capsular nodularity Comment: No focal lesion seen. Recanali zed umbilical vein GALLBLADDER: Cholelithiasis: No stones visualized Wall Thickness: Normal wall thickness Focal Tenderness: Negative sonographic Vee's sign BILIARY TRACT: Intrahepatic Ducts: Normal Extrahepatic Ducts: Normal where seen Common Duct Size: 2.0 mm FLUID COLLECTIONS: No ascites in all four quadrants of the abdomen. IMPRESSION 1. Coarse liver parenchyma with capsula r nodularity, consistent with known cirrhosis. No sonographically evident h epatic mass. 2. Recanalized umbilical vein consisten t with underlying portal hypertension. No intra-abdominal ascites. 3. Normal gallbladder. No biliary duct dilatation. Thank you for letting us participate in the care of this patient. For questions regarding this report, please contact t he number below. Electronically signed by: Elida Allen MD, Radiology [place] ([phone]), at 10:13 AM Prostate Exam Reason^cirrhosis, screen for varices Elida Allen, Staff Physician Electronically Signed Final Report 02/05 10:19 am Tory Ayers APRN IMG US GEN ORDERABLES documented in this encounter Visit Diagnoses Diagnosis Hepatic cirrhosis, unspecified hepatic c irrhosis type, unspecified whether ascites present documented in this encounter Care Teams Aerographer Relationship Specialty Start Date End Date Maricarmen Galvan APRN PCP - General Family Medicine 05/10/18 [address] [place] [address] documented as of this encounter
--- OUTSIDE RECORDS SUMMARY | 2021-09-05 01:08 | XMS_ITS | Encounter Summary ---
:1950 Author Organization [facility] [place] [address] Care Team Providers Name Role Phone Maricarmen Galvan RECREATION MANAGER Primary Care Provider Encounter Details Date Type Department Care Team Description 03/13/2021 Office Visit Rheumatology at [facility] Lorenzo Hermosillo Psoriatic arthritis (Primary Dx); [facility] SHARITA Peace Long-term use of high-risk medication; [facility] Osteoarthritis, unspecified osteoarthritis type, [place] [address] CENTER [phone] [place] [address] Social History Tobacco Use Types Packs/Day Years [...] ??F) 03/13/2021 2:25 PM EST Respiratory Rate - - Oxygen Saturation 98% 03/13/2021 2:25 PM EST Inhaled Oxygen Concentration - - Weight 50.8 kg (112 lb) 03/13/2021 2:25 PM EST Height 154.9 cm (5' 1) 03/13/2021 2:25 PM EST Body Mass Index 21.16 03/13/2021 2:25 PM EST documented in this encounter Patient Instructions Patient InstructionsSLorenzo smith PA - 03/13/2021 2:30 PM EST Follow up 6 months No changes for now documented in this encounter Progress Notes Lorenzo Hermosillo PA - 03/13/2021 2:30 PM ESTSummary: PsA. Rheumatology Outpatient Note Chart review conducted prior to the visit includes review of PMHx, medications, allergies, and prioroffice notes. The most pertinent findings are listed below. The Patient History Form was reviewed with the patient, which included review of ROS, social hx, pmhx, famhx, current and prior medications, allergies, IZs, and ADLs. The form is scanned into the patient's chart. History of Present Illness: Shereen Vega is a 70 y.o. female who presents today for evaluation of PsA. 08/05/20: Assessment:??Patient??is a 68-year-old female with a PMH of??osteoporosis,??osteoarthritis (cervicalspine disc & facet degenerative disease s/p C-spine surgery 2012),??psoriatic arthritis, fibromyalgia, HTN,??HLD, DM, GERD,??hypothyroidism, vitamin D deficiency,??hemorrhoids, and chronic thrombocytopenia.?She restarted??Humira in August 2018,??and had??since improved in terms of??morning stiffness and fatigue. ??She has stopped Humira [...] that her joint pain is more so s econdary to osteoarthritis rather than inflammatory arthritis. Plan as below. ?? She prefers to switch to an oral medication if possible. Her disease activity fortunately seems relatively stable despite being off the TNFi. She has??morning stiffness for 30 minutes or less, no recent flareups, and and exam showing possibly??very??slight left wrist synovitis with some left ankle Achilles tendinopathy. ??Her neck and back pain is in the setting of DJD,??and she is following at the spine center at [facility] for this. ??I discussed several options for psoriatic arthritis, and we agreed on pursuing Otezla.?Plan as below. ?? Recommendations: -Checked labs today: CBC, CMP, ESR, CRP, see results above (CRP negative, ESR may be elevated in thesetting of anemia) -Continue Otezla 30 mg twice daily. If not helpful, can consider stopping at next visit. -Patient following with medical information specialist regarding neck pain -Continue topical diclofenac gel??as needed -Continue??Calcium 600 mg BID and Vit D3 2000 u daily??for osteopenia.?Follow-up with PCP for repeat DEXA scan. -Advised patient to please call rheumatology clinic if she has any worsening joint pain or swelling. -Patient understands and agrees with plan -Follow-up in 6 months ?? The patient was discussed with? Zen Interval History: Patient presents today for follow-up she currently isn't has low she is having also patient she is not sure how helpful it is she thinks may be take the edge off but nothing more. Her main complaint ispain in her left knee radiating down her left leg there is been no trauma she denies any americo numbness tingling there is otherwise been no red warm swollen joints or other major changes in her health. Review of Systems Constitutional: Negative for anorexia, diaphoresis and sleep disturbance. Respiratory: Negative for cough, shortness of breath, chest discomfort, hemoptysis, orthopnea and pleuritic pain. Gastrointestinal: Negative for abdominal discomfort, vomiting and trouble swallowing. HENT: Negative. Psychiatric/Behavioral: Negative for physiological symptoms of anxiety and social aversion. Hematologic/Lymphatic: Negative. Allergic/Immunologic: Negative for recurrent infections and immunocompromised state. Musculoskeletal: Negative. Endocrine: Negative for polydipsia, polyphagia, polyuria and Cushingoid appearance. Cardiovascular: Negative for syncope. Neurological: Negative for vertigo. Skin: Negative for dry skin, urticaria, blister, photosensitivity and erythema. Allergies Allergies Allergen Reactions ??? Erythromycin Base Abdominal pain ??? Penicillins Hives ??? Plaquenil [Hydroxychloroquine] Reaction unknown ??? Quinine Thrombocytopenia ??? Sulfasalazine Patient not sure about reaction. Medications Current Outpatient Medications on File Prior to [...] as needed. 100 g 3 ??? apremilast (Otezla Starter) 10 mg (4)-20 mg (4)-30 mg (47) Tablets, Dose Pack Use as directed onpackage. (Patient not taking: Reported on 08/05/2020) 55 tablet 0 ??? apremilast (Otezla) 30 mg Tablet Take [...] times daily (with meals). Current Facility-Administered Medications on File Prior to Visit Medication Dose Route Frequency Provider Last Rate Last Admin ??? diclofenac (VOLTAREN) 1% topical gel 2 g 2 g Topical (Top) 4 Times Daily Manny Lugo MD PMHX Patient Active Problem List Diagnosis Code ??? Balance problem R26.89 ??? Transient global amnesia G45.4 ??? Hypertension I10 ??? Hyperlipidemia E78.5 ??? Hypothyroidism E03.9 ??? Psoriatic arthritis L40.50 ??? Osteoarthritis M19.90 ??? Cervical spondylosis M47.812 ??? Social anxiety disorder F40.10 ??? Menopause, premature E28.319 ??? 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 Chronic constipation K59.09 ??? Dysosmia R43.9 ??? Chest pain R07.9 ??? Long-term use of high-risk medication Z79.899 SurgHX Past Surgical History: Procedure Laterality Date ??? APPENDECTOMY ??? OVARIAN CYST SURGERY right removed ??? PRO UPPER GI ENDOSCOPY, DIAGNOSTIC N/A 07/25/2019 EGD, UPPER GI ENDOSCOPY performed by Azam Dee MD at [facility] ENDOSCOPY ??? TUBAL LIGATION Physical Examination: BP 123/69 Pulse 92 Temp 35.7 ??C (96.2 ??F) (Temporal) Ht 154.9 cm (5' 1) Wt 50.8 kg (112 lb) SpO2 98% BMI 21.16 kg/m?? No peripheral synovitis erythema or warmth noted upper or lower extremities no dactylitis noted osteoarthritic features throughout Physical Exam Constitutional: General: She is not in acute distress. Appearance: She is normal weight. She is not ill-appearing, toxic-appearing or diaphoretic. HENT: Head: Normocephalic and atraumatic. Right Ear: External ear normal. Left Ear: External ear normal. Nose: Nose normal. Eyes: General: No scleral icterus. Right eye: No discharge. Left eye: No discharge. Conjunctiva/sclera: Conjunctivae normal. Cardiovascular: Rate and Rhythm: Regular rhythm. Heart sounds: Normal heart sounds. No friction rub. No gallop. Pulmonary: Effort: Pulmonary effort is normal. No respiratory distress. Breath sounds: Normal breath sounds. No stridor. No wheezing, rhonchi or rales. Chest: Chest wall: No tenderness. Abdominal: General: There is no distension. Palpations: Abdomen is soft. Tenderness: There is no abdominal tenderness. There is no guarding. Musculoskeletal: General: No swelling, tenderness, deformity or signs of injury. Right lower leg: No edema. Left lower leg: No edema. Skin: General: Skin is warm and dry. Capillary Refill: Capillary refill takes less than 2 seconds. Coloration: Skin is not jaundiced or pale. Findings: No bruising, erythema, lesion or rash. Neurological: Mental Status: She is alert. Psychiatric: Mood and Affect: Mood normal. Behavior: Behavior normal. Thought Content: Thought content normal. Judgment: Judgment normal. Impression/Recommendations : Shereen Vega is a 70 y.o. female who presents today with PsA, without obvious disease activity on exam patient with secondary osteoarthritic arthralgias with complaints of ongoing left knee paindiscussed strategies for differentiating this pain from low back pain as the pain radiates down her left leg. We did discuss the possibility of intra-articular injection she declined she prefer not to do that we will have her revisit with pharmacy to see whether or not the Otezla is still available toher as she does find it somewhat helpful and is less likely to cause her any metabolic problems. We will plan on seeing her again in follow-up in 4 to 6 months sooner for any other issues patient in agreement with this plan. documented in this encounter Plan of Treatment Upcoming Encounters Date Type Specialty Care Team Description 09/11/2021 Appointment Radiology Tory Willard APRN [facility] GASTROENTEROLOGY [place], [place] [address] (Wo rk) 09/11/2021 Laboratory Appointment Lab 09/11/2021 Office Visit Gastroenterology Tory Willard APRN [facility] GASTROENTEROLOGY [place], [place] [address] (Wo rk) 09/11/2021 Office Visit Rheumatology Lorenzo Hermosillo, SHARITA [facility] RHEUMATOLOGY [place], [place] [address] (Wo rk) Scheduled Procedures Name Priority Associated Diagnoses Date/Time EGD, UPPER GI ENDOSCOPY Hepatic cirrhosis, unspe cified hepatic cirrhosis type, unspecified whet her ascites present documented as of this encounter Visit Diagnoses Diagnosis Psoriatic arthritis - Primary Psoriatic arthropathy Long-term use of high-risk medication Osteoarthritis, unspecified osteoarthrit is type, unspecified site documented in this encounter Care Teams Monument Letterer Relationship Specialty Start Date End Date Maricarmen Galvan APRN PCP - General Family Medicine 05/10/18 [address] [place] [address] documented as of this encounter
--- OUTSIDE RECORDS SUMMARY | 2021-09-05 01:08 | XMS_ITS | Encounter Summary ---
:1950 Author Organization [facility] [place] [address] Care Team Providers Name Role Phone Maricarmen Galvan JORGE Primary Care Provider Reason for Visit Reason Comments Specialty Pharmacy Review Encounter Details Date Type Department Care Team Description 02/06/2020 Specialty Pharmacy Pharmacy at [facility] Anny Hernadez [facility] [place] [id number] Social History Tobacco Use Types Packs/Day Years Used Date Never Smoker Smokeless Tobacco: Never Used Alcohol Use Standard Drinks/Week Comments No 0 (1 standard drink = 0.6 oz pure alcoho l) Sex Assigned at Date Recorded Not on file documented as of this encounter Progress Notes Anny Hernadez - 02/06/2020 11:59 PM EST The [facility] has completed a benefits investigation for Shereen Vega to review their eligibility to fill at [facility]. Per patient's medication list they are prescribed Humira and the medication is not able to be filled at the [facility]. documented in this encounter Plan of Treatment Upcoming Encounters Date Type Specialty Care Team Description 09/11/2021 Appointment Radiology Tory Willard APRN [facility] GASTROENTEROLOGY [place], [place] [address] (Juhi garner) 09/11/2021 Laboratory Appointment Lab 09/11/2021 Office Visit Gastroenterology Tory Willard APRN [facility] GASTROENTEROLOGY [place], [place] [address] (Wo rk) 09/11/2021 Office Visit Rheumatology Lorenzo Hermosillo PA [facility] [address] [place], [place] [address] (Wo rk) Scheduled Procedures Name Priority Associated Diagnoses Date/Time EGD, UPPER GI ENDOSCOPY Hepatic cirrhosis, unspe cified hepatic cirrhosis type, unspecified whet her ascites present documented as of this encounter Visit Diagnoses Not on filedocumented in this encounter Care Teams Business Development Director Relationship Specialty Start Date End Date Maricarmen Galvan APRN PCP - General Family Medicine 05/10/18 [address] [place] [address] documented as of this encounter
--- OUTSIDE RECORDS SUMMARY | 2021-09-05 01:08 | XMS_ITS | Encounter Summary ---
:1950 Author Organization [facility] [place] [address] Care Team Providers Name Role Phone Maricarmen Galvan JORGE Primary Care Provider Reason for Visit Reason Onset Date Comments Other 02/03/2021 Encounter Details Date Type Department Care Team Description 02/03/2021 Telephone Rheumatology at [facility] [place] [phone] Social History Tobacco Use Types Packs/Day Years Used Date Never Smoker Smokeless Tobacco: Never Used Alcohol Use Standard Drinks/Week Comments No 0 (1 standard drink = 0.6 oz pure alcoho l) Sex Assigned at Date Recorded Not on file documented as of this encounter Miscellaneous Notes Telephone Encounter - Gigi Baeza RN - 02/03/2021 12:58 PM EST Call received from spouse asking about Otezla assistance. documented in this encounter Plan of Treatment Upcoming Encounters Date Type Specialty Care Team Description 09/11/2021 Appointment Radiology Tory Willard APRN [facility] GASTROENTEROLOGY [place], [place] [address] (Wo pascual) 09/11/2021 Laboratory Appointment Lab 09/11/2021 Office Visit Gastroenterology Tory Willard APRN [facility] GASTROENTEROLOGY [place], [place] [address] (Wo p[place]ual) 09/11/2021 Office Visit Rheumatology Lorenzo Hermosillo PA [facility] [address] [place], [place] [address] (Wo rk) Scheduled Procedures Name Priority Associated Diagnoses Date/Time EGD, UPPER GI ENDOSCOPY Hepatic cirrhosis, unspe cified hepatic cirrhosis type, unspecified whet her ascites present documented as of this encounter Visit Diagnoses Not on filedocumented in this encounter Care Teams Fire Department Battalion Chief Relationship Specialty Start Date End Date Maricarmen Galvan, JORGE PCP - General Family Medicine 05/10/18 [address] [place] [address] documented as of this encounter
--- OUTSIDE RECORDS SUMMARY | 2021-09-05 01:08 | XMS_ITS | Encounter Summary ---
:1950 [place] [address] Care Team Providers Name Role Phone Maricarmen Galvan APRN Primary Care Provider Reason for Visit Reason Comments Medication Management Patient Education Encounter Details Date Type Department Care Team Description 04/30/2020 Specialty [facility] Jennifer Kim [facility] Managem ent; [place] [id number] Social History Tobacco Use Types Packs/Day Years Used Date Never Smoker Smokeless Tobacco: Never Used Alcohol Use Standard Drinks/Week Comments No 0 (1 standard drink = 0.6 oz pure alcoho l) Sex Assigned at Date Recorded Not on file documented as of this encounter Progress Notes Jennifer Judd [facility] - 04/30/2020 11:29 AM EST Specialty Pharmacy Consultation; Jennifer Judd [facility] Comprehensive Medication Management (CMM) Shereen Vega Diagnosis: PSA Therapy Start Date: , pending insurance approval Contact in person or via telephone: in person Ms. Shereen Vega is a 69 y.o. (1950) female who was contacted in regard to specialty medication. Spoke with patient regarding Otezla . A review of the medication therapy was performed. The medication will be filled pending insurance approval and all medication related questions and concerns were addressed. Is the patient willing to proceed with the Clinical Assessment? Yes Summary and Recommendations: Shereen Vega was seen in clinic for a review of Otezla for the treatment of psoriatic arthritis. Patient is aware of the prior authorization process and timeline and was given [facility] contact information for any questions. Patient was educated on the dosing schedule, Day 1: 10 mg by mouth in the morning, Day 2: 10 mg twice daily, Day 3: 10 mg in the morning and 20 mg in the evening, Day 4: 20 mg twice daily, Day 5: 20 mgin the morning and 30 mg in the evening, Day 6 and thereafter: 30 mg twice daily . Patient was educated on the Otezla labeled warnings and precautions including GI effects, neuropsychiatric effects, and weight loss. Patient was made aware that the use of Otezla is not recommended during /. Educated patient on the potential side effects of Otezla including diarrhea, nausea, headache, weight loss, and URTI. Clinic follow-up needed: yes-follow up appts Allergies and Drug intolerance: Allergies Allergen Reactions ??? Erythromycin Base Abdominal pain ??? Penicillins Hives ??? Plaquenil [Hydroxychloroquine] Reaction unknown ??? Quinine Thrombocytopenia ??? Sulfasalazine Patient not sure about reaction. Special Dietary or Hydration Requirements: no There is no height or weight on file to calculate BMI. Medication Reconciliation Discrepancies (compared to [facility] med list) -none identified Medication List: Current Outpatient Medications Medication Sig Dispense Refill ??? apremilast (Otezla Starter) 10 mg (4)-20 mg (4)-30 mg (47) Tablets, Dose Pack Use as directed onpackage. 55 tablet 0 ??? apremilast (Otezla) 30 [...] aspart U-100 (NOVOLOG) Insulin Pen Inject subcutaneously 3 times daily (with meals). ??? magnesium chloride (SLOW-MAG ORAL) Take by mouth. ??? levothyroxine (SYNTHROID) 75 mcg tablet Take 75 mcg by mouth daily. ??? TRAMADOL HCL (TRAMADOL ORAL) Take 50 mg by mouth every morning. Takes at bedtime if needed. ??? PARoxetine (PAXIL) 40 mg tablet Take 40 mg by mouth every morning. ??? gabapentin (NEURONTIN) 300 mg capsule Take 700 mg by mouth 3 times daily. Takes 300 mg in the AMand 600 mg in the PM. ??? leveTIRAcetam (KEPPRA) 500 mg tablet Take 250 mg by mouth 2 times daily. ??? aspirin 81 mg EC tablet Take 81 mg by mouth daily. ??? lovastatin (MEVACOR) 40 mg tablet Take 40 mg by mouth every morning. ??? metFORMIN (GLUCOPHAGE) 500 mg tablet Take 1,000 mg by mouth 2 times daily (with meals). Current Facility-Administered Medications Medication Dose Route Frequency Provider Last Rate Last Admin ??? diclofenac (VOLTAREN) 1% topical gel 2 g 2 g Topical (Top) 4 Times Daily Manny Lugo MD Most Recent Vitals: Ht Readings from Last 1 Encounters: 04/29/20 154.9 cm (5' 1) Wt Readings from Last 3 Encounters: 04/29/20 52.3 kg (115 lb 6.4 oz) 07/25/19 52.6 kg (116 lb) 03/10/19 54.1 kg (119 lb 3.2 oz) Temp Readings from Last 3 Encounters: 04/29/20 36.3 ??C (97.3 ??F) (Temporal) 07/25/19 36.7 ??C (98.1 ??F) (Oral) 01/02/19 36.7 ??C (98 ??F) (Oral) BP Readings from Last 3 Encounters: 04/29/20 120/69 07/25/19 115/73 03/10/19 119/76 Pulse Readings from Last 3 Encounters: 04/29/20 100 07/25/19 77 03/10/19 94 Pertinent Lab values: Lab Results Component Value Date NA 142 04/29/2020 K 4.5 04/29/2020 CL 104 04/29/2020 CO2 27 04/29/2020 BUN 12 04/29/2020 CREATININE 0.62 (L) 04/29/2020 GLUCOSE 122 04/29/2020 CALCIUM 10.2 04/29/2020 Lab Results Component Value Date ALT 15 04/29/2020 AST 25 04/29/2020 ALKPHOS 70 04/29/2020 BILITOT 0.3 04/29/2020 ALBUMIN 4.1 04/29/2020 PROT 7.8 04/29/2020 Lab Results Component Value Date WBC 6.6 04/29/2020 HGB 11.9 04/29/2020 HCT 36.2 04/29/2020 MCV 89.6 04/29/2020 PLATELET 104 (L) 04/29/2020 No results found for: HA1C There is no immunization history on file for this patient. Assessment and Recommendations: Title Type of Medication Management: chronic disease management, targeted medication review Referred By: provider Recipient: beneficiary Provider: plan sponsor pharmacist Visit Type: [facility] Method of Contact: face to face Drug Interactions Provided the patient with educational material regarding drug interactions: yes Patient Counseling Counseled the patient on the following: reviewed medication changes since last visit, medication safety precautions education provided, drug interaction education provided to patient, doses and administration discussed, safe handling, storage, and disposal discussed, possible adverse effects and management discussed, possible drug and prescription drug interactions discussed, possible drug and OTC drug and food interactions discussed, lab monitoring and follow-up discussed, therapeutic rationale discussed, cost of medications and cost implications discussed, adherence and missed doses discussed, pharmacy contact information discussed, health goals discussed, monitoring medication discussed, over the counter products discussed, preventative care discussed, recommendations to doctor discussed, reminder to refill or picker operator medication discussed, self-monitoring discussed, start medication discussed, timing of medications discussed, vaccination discussed, lifestyle modification education, referral needs discussed Drug Medication Management Summary Topics discussed: reviewed medication changes since last visit, medication safety precautions education provided, drug interaction education provided to patient, doses and administration discussed, safe handling, storage, and disposal discussed, possible adverse effects and management discussed, possible drug and prescription drug interactions discussed, possible drug and OTC drug and food interactions discussed, lab monitoring and follow-up discussed, therapeutic rationale discussed, cost of medications and cost implications discussed, adherence and missed doses discussed, pharmacy contact information discussed, health goals discussed, monitoring medication discussed, over the counter products discussed, preventative care discussed, recommendations to doctor discussed, reminder to refill or picker operator medication discussed, self-monitoring discussed, start medication discussed, timing of medications discussed, vaccination discussed, lifestyle modification education, referral needs discussed Time spent: 1-15 min Treatment Outcomes 04/30/2020 1130 Disease progression: Moderate Reviewed in detail with patient: Dose appropriateness based on recommended standard dosing Current medication list including OTC medications Medication and disease problems Allergies Comorbid conditions/ Problem List Past adverse events if any Special needs of the patient including physical and cognitive limitations Goals of therapy and management strategies Warnings, precautions, and contraindications Side effects Drug-drug and drug-food interactions Administration instructions including dose, frequency and method Handling, storage, and disposal of the medication Relevant lab data Patient verbalizes understanding and is able to read-back instructions on self-administration/injection, proper storage, drug stability, importance of adherence and management strategies, side effect avoidance and mitigation strategies, and interruptions in therapy: yes Physical Assessment: Functional limitations identified: no Cognitive limitations identified: no Concern regarding orientation/memory: no Concern with reasoning/judgement: no Is patient a fall risk: no Other needed information: no Social Assessment: Does the patient have a primary home health care case manager? no Patient has emergency contact on file: Yes Does patient need referral to psychiatric social worker supervisor: No Does patient need referral to advocacy group: No Physical and Home Health Assessment: Is the patient able to store their medication as directed? Yes Is the patient in a safe home environment? Yes Do you have a support network? Yes Reviewed potential home safety hazards: No Economic Assessment: Patient is agreeable to medication copay: Yes Copay Amount: TBD Day Supply: TBD Date Needed: pending insurance approval Copay assistance required: no Therapy Assessment: Current Medication Dosing/Route/Frequency: Otezla 30mg tablets Take 1 tablet by mouth twice daily. Appropriate Therapy: Yes Current joints affected: hand, wrist, elbow, shoulder, knee, ankle, neck Current pain rating (1-10): none Estimated duration of morning joint stiffness: none Estimated number of recent flares: yes - around knuckles Recent systemic corticosteroid use: no Expected Outcome: decrease swelling in joints/avoid future flares Patient's goals: Patient's specific desired goal: She would like to have increased mobility and less joint involvement. Measured by: steroid usage, pain, morning stiffness Time-frame to meet goal: 3 to 6 months Patient's Problems/Needs: PsA/needs help controlling disease Care Plan Reviewed and Approved by both Pharmacist and Patient: Yes Monitoring requirements for prescribed medication: weight, renal function, signs or symptoms of moodchanges, depression, or suicidal thoughts= Interventions (if applicable): No Educational information or adherence tools provided: Yes Additional equipment/supplies required: no Pharmacist follow-up needed: Yes Informed patient of specialty pharmacy services: Yes -Patient will be provided with welcome packet: Yes Date to be provided: TBD Delivery Method: mail -Patient will be provided with Rights & Responsibilities: Yes Date to be provided: TBD Delivery Method: mail -Patient is aware a licensed pharmacist is available 24 hours a day, 7 days a week to discuss medication-related questions or concerns: Yes -Patient verbalizes understanding of the common side effect profile of their medication. The patientis able to call 911 or seek urgent care if signs/symptoms of allergy or harmful adverse reactions occur: Yes Patient understands no changes to current drug regimen were made at the appointment and that [facility] is providing recommendations (summary located at top of note) for provider review and follow up. Jennifer Judd RPH 04/30/20 11:30 AM Jennifer Judd RP - 04/30/2020 11:29 AM EST [facility] Assistance Referral [facility] has looked into assistance for the following patient, but we have not been able to find any copay cards or foundations with available funding for them. A referral has been sent to the [facility] MAP team. The patient is aware that the [facility] team will be reaching out, and we have provided the number to reach [facility] in case they have any further questions. Patient: Shereen Vega : 1950 Medication: otezla 30 mg Dosin mg bid Insurance: n/a Medicare Part D?: does not have medicare d [place] has been approved, current copay is: n/a Jennifer Judd RP 04/30/20 11:36 AM Jennifer Judd [facility] - 04/30/2020 11:29 AM EST D[facility] Assistance Update [facility] has attempted to reach back out to Shereen Vega to see if they need any further guidance with acquiring corporate controller assistance for their specialty medication, . We left message for patient. At this point, unless the patient requests further assistance we will discontinue any further outreach attempts. Additional Notes: i will follow up in 1 week. Kaleb sent application on 05/06/20 Jennifer Judd [facility] 05/09/20 2:39 PM Jennifer Judd [facility] - 04/30/2020 11:29 AM EST [facility] Assistance Update [facility] has attempted to reach back out to Shereen Kim Vega to see if they need any further guidance with acquiring corporate controller assistance for their specialty medication, . We spoke to patient. At this point, unless the patient requests further assistance we will discontinue anyfurther outreach attempts. Additional Notes: Yes - will follow up in one week Jennifer Judd RPH 05/16/20 12:12 PM Jennifer Judd [facility] - 04/30/2020 11:29 AM EST [facility] Assistance Update [facility] has attempted to reach back out to Shereen Vega to see if they need any further guidance with acquiring corporate controller assistance for their specialty medication, . We spoke to patient. At this point, unless the patient requests further assistance we will discontinue anyfurther outreach attempts. Additional Notes: Otezla application should be coming in the mail soon. Sent out on 06/21/20 Jennifer Judd RPH 06/26/20 1:09 PM Jennifer Judd [facility] - 04/30/2020 11:29 AM EST [facility] Assistance Submitted Medication: Otezla [place]: [employer] Submitted: 06/27/20 via fax Additional Notes: will check in next week For any questions relating to this appeal please reach out directly to your section's specialty pharmacist. Jennifer Judd RPH 06/27/20 2:56 PM documented in this encounter Plan of Treatment Upcoming Encounters Date Type Specialty Care Team Description 09/11/2021 Appointment Radiology Tory Willard APRN [facility] [place], [place] [address] (Wo rk) 09/11/2021 Laboratory Appointment Lab 09/11/2021 Office Visit Gastroenterology Tory Willard APRN [facility] [place], [place] [address] (Wo rk) 09/11/2021 Office Visit Rheumatology Lorenzo Hermosillo PA [facility] RHEUMATOLOGY [place], [place] [address] (Wo rk) Scheduled Procedures Name Priority Associated Diagnoses Date/Time EGD, UPPER GI ENDOSCOPY Hepatic cirrhosis, unspe cified hepatic cirrhosis type, unspecified whet her ascites present documented as of this encounter Visit Diagnoses Not on filedocumented in this encounter Care Teams Cold Food Packer Relationship Specialty Start Date End Date Maricarmen Galvan, FIELD GEOLOGIST PCP - General Family Medicine 05/10/18 [address] [place] [address] documented as of this encounter
--- OUTSIDE RECORDS SUMMARY | 2021-09-05 01:08 | XMS_ITS | Encounter Summary ---
:1950 Author Organization [facility] Address [address] [place] [address] Care Team Providers Name Role Phone Maricarmen Galvan [employer] Primary Care Provider Encounter Details Date Type Department Care Team Description 08/06/2020 Hospital Encounter Ultrasound at [facility] Yuriy Ayers Hepatic cirrhosis, [facility] JORGE Nance unspecified hepatic Drive [facility] cirrhosis type, [place], [place] [address] unspecified whether [phone] GASTROENTEROLOGY ascites present [phone] [place] [address] Social History Tobacco Use Types Packs/Day Years [...] 0 06/22/2019 20 mg Capsule, Delayed Release(E.C.) cyanocobalamin, Vitamin Take 100 mcg by mouth 0 B-12, (Vitamin B-12) daily. 100 mcg Tablet benzonatate (TESSALON) Take 100 mg by mouth 3 0 200 mg Capsule times daily as needed for Cough. diclofenac (VOLTAREN) 1 Apply 2 g topically 2 100 g 3 0 08/05/2020 % Gel times daily as needed. apremilast (Otezla Use as directed on 55 tablet 0 1 Starter) 10 mg (4)-20 package. mg (4)-30 mg (47) Tablets, Dose Pack apremilast (Otezla) 30 Take 30 mg by mouth 2 60 tablet 3 mg Tablet times daily. freestyle lite strips USE TO TEST BLOOD 0 020 GLUCOSE ONCE DAILY fluticasone Inhale 1 puff into the 0 propion-salmeterol lungs every 12 hours. (ADVAIR) 100-50 mcg/dose Disk with Device folic acid (FOLVITE) Take 400 mcg by mouth 0 400 mcg Tablet daily. lansoprazole (PREVACID) Take 30 mg by mouth 0 30 mg Capsule, Delayed daily. Release(E.C.) cholecalciferol, Take by mouth. 0 Vitamin D3, (VITAMIN D) 1,000 unit Capsule calcium-vitamin D3 600 Take by mouth. 0 mg calcium- 400 unit Tablet docusate sodium Take 100 mg by mouth 2 0 (COLACE) 100 mg Capsule times daily. insulin aspart U-100 Inject subcutaneously 0 (NOVOLOG) [...] tablet times daily. aspirin 81 mg EC tablet Take 81 mg by mouth 0 daily. lovastatin (MEVACOR) 40 Take 40 mg by mouth 0 mg tablet every morning. metFORMIN (GLUCOPHAGE) Take 1,000 mg by mouth 2 0 500 mg tablet times daily (with meals). documented as of this encounter Plan of Treatment Upcoming Encounters Date Type Specialty Care Team Description 09/11/2021 Appointment Radiology Yuriy Ayers APRN [facility] [place], [place] [address] (Wo rk) 09/11/2021 Laboratory Appointment Lab 09/11/2021 Office Visit Gastroenterology Yuriy Ayers APRN [facility] [address] [place], [place] [address] (Wo rk) 09/11/2021 Office Visit Rheumatology Lorenzo Hermosillo PA [facility] RHEUMATOLOGY [place], [place] [address] (Wo rk) Scheduled Procedures Name Priority Associated Diagnoses Date/Time EGD, UPPER GI ENDOSCOPY Hepatic cirrhosis, unspe cified hepatic cirrhosis type, unspecified whet her ascites present documented as of this encounter Procedures Procedure Name Priority Date/Time Associated Diagnosis Comme nts US ABDOMEN LIMITED Routine 08/06/2020 9:46 AM Hepatic cirrhosi s, Results for this HEPATOLOGY PROTOCOL EDT unspecified hepatic p rocedure are in cirrhosis [...] who have questions please contact the health child care coordinator that requested your imaging first. Electronically signed by: Jaz velasquez MD, Radiology [place] ([phone]), at 9:51 AM Thank you for letting us participate in the care of this patient. If you are a health care [facility] and have any questions regarding this report, please contact the number below. For patients who have ques tions, please contact the health care professio nal that requested your imaging first. ?Kevyn Arthur ff Physician Electronically Signed Final Report ?? 06 / 09:57 am Narrative 08/06/2020 9:58 AM EDT Abdominal ? (Signed Final 08/06/2020 09:57 am) PATIENT INFO: ID #: ? [id number] ?: ??[birth year] (70 yrs)(F) Name: ? SHEREEN Kim ? Visit Date: 08/06/2020 09:33 am ? BO PERFORMED BY: Performed By: ? Bladimir ORDONEZ, Reagan nance Attending: ?Elvia SHARPE, Kris Rogel Referred By: ?YURIY AYERS Location: ? [place] SERVICE(S) PROVIDED: UABDLIM - Hepatology Protocol - Abdomin al ? 36821 Limited Survey Single Organ or Quadrant - [id number] INDICATIONS: cirrhosis, screen for hcc COMPARISON: US: [...] 09:5 7 am) PATIENT INFO: ID #: [id number] : [birth year] (70 y rs)(F) Name: SHEREEN Kim Visit Date: 08/06/2020 09:33 am VEGA PERFORMED BY: Performed By: Rhiannon Garrison RDMS Attending: Jaz Gan MD Referred By: YURIY AYERS Location: [place] SERVICE(S) PROVIDED: UABDLIM - Hepatology Protocol - Abdomin al 61349 Limited Survey Single Organ or Quadrant - [id number] INDICATIONS: cirrhosis, screen for hcc COMPARISON: US: [...] who have questions please contact the health child care coordinator that requested your imaging first. Electronically signed by: Jaz velasquez MD, Radiology [place] ([phone]), at 9:51 AM Thank you for letting us participate in the care of this patient. If you are a health care provid er and have any questions regarding this report, please contact the number below. For patients who have ques tions, please contact the health care professio [facility] that requested your imaging first. Jaz Burk, Staff Ph ysician Electronically Signed Final Report 08/06 09:57 am Yuriy Ayers APRN [facility] GEN ORDERABLES documented in this encounter Visit Diagnoses Diagnosis Hepatic cirrhosis, unspecified hepatic c irrhosis type, unspecified whether ascites present documented in this encounter Care Teams Stable Helper Relationship Specialty Start Date End Date Maricarmen Galvan APRN PCP - General Family Medicine 05/10/18 [address] [place] [address] documented as of this encounter
--- OUTSIDE RECORDS SUMMARY | 2021-09-05 01:08 | XMS_ITS | Encounter Summary ---
:1950 Author Organization [facility] [place] [address] Care Team Providers Name Role Phone Maricarmen Galvan PROJECT CONSTRUCTION ASSISTANT MANAGER Primary Care Provider Encounter Details Date Type Department Care Team Description 04/30/2020 Orders Only Rheumatology at [facility] Manny Lugo MD [facility] [address] [place] [address] RHEUMATOLOGY DEPT [phone] [place], [place] [address] (Wo rk) Social History Tobacco [...] Description 09/11/2021 Appointment Radiology Tory Willard APRN [facility] ER GASTROENTEROLOGY [place], [place] [address] (Wo rk) 09/11/2021 Laboratory Appointment Lab 09/11/2021 Office Visit Gastroenterology Tory Willard APRN [facility] ER GASTROENTEROLOGY [place], [place] 0[address] (Wo rk) 09/11/2021 Office Visit Rheumatology Lorenzo Hermosillo PA [facility] [address]IAM [place], [place] [address] (Wo rk) Scheduled Procedures Name Priority Associated Diagnoses Date/Time EGD, UPPER GI ENDOSCOPY Hepatic cirrhosis, unspe cified hepatic cirrhosis type, unspecified whet her ascites present documented as of this encounter Visit Diagnoses Not on filedocumented in this encounter Care Teams Physician Scientist Relationship Specialty Start Date End Date Maricarmen Galvan APRN PCP - General Family Medicine 05/10/18 [address] [place] [address] documented as of this encounter
--- OUTSIDE RECORDS SUMMARY | 2021-09-05 01:08 | XMS_ITS | Encounter Summary ---
:1950 Author Organization [facility] Address [address] [facility] [address] [place] [address] Care Team Providers Name Role Phone Maricarmen Galvan JORGE Primary Care Provider Reason for Visit Reason Comments Specialty Pharmacy Review adalimumab (Humira,CF, Pen) 40 mg/0.4 mL Encounter Details Date Type Department Care Team Description 01/15/2020 Specialty Pharmacy Pharmacy at [facility] Bashir O[facility] Review (a dalimumab Drive (Humira,CF, Pen) 40 [place], [place] mg/0.4 mL) [id number] Social History Tobacco Use Types Packs/Day Years Used Date Never Smoker Smokeless Tobacco: Never Used Alcohol Use Standard Drinks/Week Comments No 0 (1 standard drink = 0.6 oz pure alcoho l) Sex Assigned at Date Recorded Not on file documented as of this encounter Progress Notes Bashir Oakes - 01/15/2020 11:59 PM EST [facility] has completed a benefits investigation for Shereen Vega to review their eligibility to fill [facility]. Per patient's medication list they are prescribed adalimumab (Humira,CF, Pen) 40 mg/0.4 mL and the medication is not able to be filled at the [facility]. documented in this encounter Plan of Treatment Upcoming Encounters Date Type Specialty Care Team Description 09/11/2021 Appointment Radiology Tory Willard APRN [facility] ER DR GASTROENTEROLOGY [place], [place] 0375 (Wo rk) 09/11/2021 Laboratory Appointment Lab 09/11/2021 Office Visit Gastroenterology Tory Willard APRN [facility] ER GASTROENTEROLOGY [place], [place] 0375 (Wo rk) 09/11/2021 Office Visit Rheumatology Lorenzo Hermosillo PA [facility] ER RHEUMATOLOGY [place], [place] 0375 (Wo rk) Scheduled Procedures Name Priority Associated Diagnoses Date/Time EGD, UPPER GI ENDOSCOPY Hepatic cirrhosis, unspe cified hepatic cirrhosis type, unspecified whet her ascites present documented as of this encounter Visit Diagnoses Not on filedocumented in this encounter Care Teams Neuroscience Director Na Relationship Specialty Start Date End Date Maricarmen Galvan APRN PCP - General Family Medicine 05/10/18 [address] [place] [address] documented as of this encounter
--- OUTSIDE RECORDS SUMMARY | 2021-09-05 01:08 | XMS_ITS | Encounter Summary ---
:1950 Author Organization [facility] Address [facility] [place] [address] Care Team Providers Name Role Phone Maricarmen Galvan JORGE Primary Care Provider Reason for Visit Reason Comments Specialty Pharmacy Review apremilast (Otezla) 30 mg Ta blet Encounter Details Date Type Department Care Team Description 08/05/2020 Specialty Pharmacy Pharmacy at [facility] Bashir O[facility] Review (a premilast Drive (Otezla) 30 mg [place], [place] Tablet) [id number] Social History Tobacco Use Types Packs/Day Years Used Date Never Smoker Smokeless Tobacco: Never Used Alcohol Use Standard Drinks/Week Comments No 0 (1 standard drink = 0.6 oz pure alcoho l) Sex Assigned at Date Recorded Not on file documented as of this encounter Progress Notes Bashir Oakes - 08/05/2020 12:32 PM EDT The [facility] Specialty Pharmacy has completed a benefits investigation for Shereen Vega to review their eligibility to fill at - Specialty Pharmacy. Per patient's medication list they are prescribed apremilast (Otezla) 30 mg Tablet and the medication is not able to be filled at the - Specialty Pharmacy; patient currently fills with [employer] under MAP. documented in this encounter Plan of Treatment Upcoming Encounters Date Type Specialty Care Team Description 09/11/2021 Appointment Radiology Tory Willard APRN [facility] ER GASTROENTEROLOGY [place], [place] 0375 (Wo rk) 09/11/2021 Laboratory Appointment Lab 09/11/2021 Office Visit Gastroenterology Tory Willard APRN [facility] GASTROENTEROLOGY [place], [place] 0375 (Wo rk) 09/11/2021 Office Visit Rheumatology Lorenzo Hermosillo PA [facility] RHEUMATOLOGY [place], [place] 0[address] (Wo rk) Scheduled Procedures Name Priority Associated Diagnoses Date/Time EGD, UPPER GI ENDOSCOPY Hepatic cirrhosis, unspe cified hepatic cirrhosis type, unspecified whet her ascites present documented as of this encounter Visit Diagnoses Not on filedocumented in this encounter Care Teams Property Underwriter Relationship Specialty Start Date End Date Maricarmen Galvan APRN PCP - General Family Medicine 05/10/18 [address] [place] [address] documented as of this encounter
--- OUTSIDE RECORDS SUMMARY | 2021-09-05 01:08 | XMS_ITS | Encounter Summary ---
:1950 Author Organization [place] [address] Care Team Providers Name Role Phone Maricamren Galvan JORGE Primary Care Provider Encounter Details Date Type Department Care Team Description 03/12/2021 Hospital Encounter Ultrasound at [facility] Anderson Stewart MD Liver cirrhosis [facility] to [facility] [address] [place] GASTRO[place] [address] [place], [place] [phone] [facility] Social History Tobacco Use Types Packs/Day Years Used Date Never Smoker Smokeless Tobacco: Never Used Alcohol Use Standard Drinks/Week Comments No 0 (1 standard drink = 0.6 oz pure alcoho l) Sex Assigned at Date Recorded Not on file documented as of this encounter Medications at Time of Discharge Medication Sig Dispensed Refills Start Date End Date insulin detemir U-100 Daily. 0 (Levemir FlexTouch U-100 Insuln) Insulin Pen fluticasone propionate Inhale into the lungs. 0 [...] Use as directed on 55 tablet 0 Starter) 10 mg (4)-20 package. mg (4)-30 [...] Appointment Radiology Tory Willard APRN [facility] [address] [place], [place] [address] (Wo rk) 09/11/2021 Laboratory Appointment Lab 09/11/2021 Office Visit Gastroenterology Tory Willard APRN [facility] GASTROENTEROLOGY [place], [place] [address] (Wo rk) 09/11/2021 Office Visit Rheumatology Lorenzo Hermosillo PA [facility] RHEUMATOLOGY [place], [place] [address] (Wo rk) Scheduled Procedures Name Priority Associated Diagnoses Date/Time EGD, UPPER GI ENDOSCOPY Hepatic cirrhosis, unspe cified hepatic cirrhosis type, unspecified whet her ascites present documented as of this encounter Procedures Procedure Name Priority Date/Time Associated Comments Diagnosis US ABDOMEN LIMITED Routine 03/12/2021 9:10 AM Liver cirrhosis Results for this HEPATOLOGY PROTOCOL EST secondary to ALFARO pro cedure are in the results section. documented in this encounter Results US Abdomen [...] hypertension. Electronically signed by: Elida Allen MD, [facility] ([phone]), at 9:15 AM Thank you for letting us participate in the care of this patient. If you are a [facility] er and have any questions regarding this report, please contact the number above. For patients who have ques tions, please contact the [facility] professio nal that requested your imaging first. ? Elida Allen, Staff Physician Electronically Signed Final Report ?? 09:22 am Narrative 03/12/2021 9:23 AM EST Abdominal ? (Signed Final 03/12/2021 09:22 am) PATIENT INFO: ID #: ? [id number] ?: ??[birth year] (70 yrs)(F) Name: ? ELEAZAR Kim ? Visit Date: 03/12/2021 09:08 am ? BO PERFORMED BY: Performed By: ? Apryl Crockett RDMS Attending: ?Tiffany SHARPE, Elida Casper Referred By: ?ANDERSON STEWART Location: ? [place] SERVICE(S) PROVIDED: UABDLIM - Hepatology Protocol - Abdomin al ? 10613 Limited Survey Single Organ or Quadrant - [id number] INDICATIONS: compensated ALFARO cirrhosis, screen for hepatoma [...] 09:2 2 am) PATIENT INFO: ID #: [id number] : [birth year] (70 y rs)(F) Name: ELEAZAR Kim Visit Date: 03/12/2021 09:08 am BO PERFORMED BY: Performed By: Apryl Crockett RDMS Attending: Elida Allen MD Referred By: ANDERSON STEWART Location: [place] SERVICE(S) PROVIDED: UABDLIM - Hepatology Protocol - Abdomin al 89602 Limited Survey Single Organ or Quadrant - [id number] INDICATIONS: compensated ALFARO cirrhosis, screen for hepatoma [...] Electronically signed by: Elida Allen MD, Radiology [place] ([phone]), at 9:15 AM Thank you for letting us participate in the care of this patient. If you are a [facility] er and have any questions regarding this report, please contact the number above. For patients who have ques tions, please [facility] that requested your imaging first. 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
--- OUTSIDE RECORDS SUMMARY | 2021-09-05 01:08 | XMS_ITS | Encounter Summary ---
:1950 Author Organization [facility] [place] [place] [address] Care Team Providers Name Role Phone Maricarmen Galvan CAN PUSHER Primary Care Provider Encounter Details Date Type Department Care Team Description 08/05/2020 Laboratory Appointment Lab 3L [facility] Psoriatic arthritis; [facility] Hepatic cirrhosis, unspecifi ed hepatic cirrhosis type, unspecified [place] [id number] Social History Tobacco Use Types Packs/Day Years Used Date Never Smoker Smokeless Tobacco: Never Used Alcohol Use Standard Drinks/Week Comments No 0 (1 standard drink = 0.6 oz pure alcoho l) Sex Assigned at Date Recorded Not on file documented as of this encounter Plan of Treatment Upcoming Encounters Date Type Specialty Care Team Description 09/11/2021 Appointment Radiology Tory Willard APRN [facility] GASTROENTEROLOGY [place], [place] [address] (Wo rk) 09/11/2021 Laboratory Appointment Lab 09/11/2021 Office Visit Gastroenterology Tory Willard APRN [facility] GASTROENTEROLOGY [place], [place] [address] (Wo rk) 09/11/2021 Office Visit Rheumatology Lorenzo Hermosillo PA [facility] RHEUMATOLOGY [place], [place] [address] (Wo rk) Scheduled Procedures Name Priority Associated Diagnoses Date/Time EGD, UPPER GI ENDOSCOPY Hepatic cirrhosis, unspe cified hepatic cirrhosis type, unspecified whet her ascites present documented as of this encounter Procedures Procedure Name Priority Date/Time Associated Comments Diagnosis HC C-REACTIVE PROTEIN Routine 08/05/2020 4:19 PM Psoriatic art hritis Results for this EDT procedure are i n the results section. HEMOGRAM Routine 08/05/2020 4:19 PM Psoriatic arthritis Re sults for this EDT procedure are i n the results section. DIFFERENTIAL, Routine 08/05/2020 4:19 PM Psoriatic arthritis R esults for this AUTOMATED EDT procedure are i n the results section. HC ESR-SEDIMENTATION Routine 08/05/2020 4:19 PM Psoriatic arth ritis Results for this RATE, BLOOD EDT procedure are i n the results section. HC PROTHROMBIN TIME Routine 08/05/2020 4:19 PM Hepatic cirrhos is, Results for this EDT unspecified hepatic procedur e are in cirrhosis type, the results unspecified whether section. ascites present HC CBC,PLT & AUTO DIFF Routine 08/05/2020 4:19 PM Psoriatic ar thritis EDT COMPREHENSIVE Routine 08/05/2020 4:19 PM Psoriatic arthritis R esults for this METABOLIC PANEL EDT procedure ar e in (NON-FASTING) the results section. documented in this encounter Results Differential, Automated (08/05/2020 4:19 PM EDT) athologist Signature Neutrophils % 52.4 % [facility] Neutr Abs (ANC) 2.33 1.70 - [facility] 6.10 [facility] x10(3)/[facility] LABORATORY Lymphocytes % 28.2 % [facility] Lymphocytes Abs 1.2 0.9 - 3.2 [facility] x10(3)/[facility] LABORATORY Monocytes % 10.6 % [facility] Monocyte Abs 0.5 0.3 - 0.9 [facility] x10(3)/[facility] LABORATORY Eosinophils % 7.7 % [facility] Eosinophils Abs 0.3 0.0 - 0.4 [facility] x10(3)/[facility] LABORATORY Basophils % 0.9 % [facility] Basophils Abs 0.0 0.0 - 0.1 [facility] x10(3)/[facility] LABORATORY Immature Gran % 0.20 % [facility] Comment: Immature granulocytes(IG's)percentage an d absolute count will include metamyelocytes, myelocytes, and promyelo cytes. Blood smears from CBCs yielding IG's will be scanned manually for concor dance. If this scan disagrees with the automated IG or if promyelocytes are not ed, a manual differential will be performed. Judy Gran Abs 0.01 0.00 - 0.04 x10(3)/[facility] LABORATORY Specimen Anatomical Collection Method Collection Time Receive d Time (Source) Location / / Volume Laterality Blood 08/05/2020 4:19 PM 4:45 EDT PM EDT Resulting Agency Comment Spec In Lab Manny Lugo MD HEMATOLOGY ORDERABLES Performing Organization Address City/State/[place] [address] (ABNORMAL) Hemogram (08/05/2020 4:19 PM EDT) Analysis Performed At Patho logist Time Signature WBC 4.4 4.0 - 9.5 [facility] x10(3)/[facility] LABORATORY RBC 3.67 (L) 4.00 - [facility] 5.21 [facility] x10(6)/[facility] LABORATORY Hemoglobin 10.4 (L) 11.7 - [facility] gm/dL [facility] Hematocrit 31.9 (L) 35.7 - [facility] 45.8 % [facility] MCV 86.9 82.6 - [facility] 94.4 [facility] LABORATORY MCH 28.3 27.1 - [facility] 32.0 pg [facility] MCHC 32.6 31.7 - [facility] 35.0 gm/dL [facility] Platelets 108 (L) 145 - 357 [facility] x10(3)/[facility] LABORATORY RDWSD 47.7 (H) 37.0 - [facility] 46.0 [facility] LABORATORY RDWCV 15.0 (H) 11.5 - [facility] 14.1 % [facility] LABORATORY MPV 10.6 7.6 - 12.9 [facility] LABORATORY nRBC % Auto 0.0 % [facility]OR[facility] nRBC Abs Auto 0.000 0.000 - [facility] 0.000 [facility] x10(3)/[facility] LABORATORY Specimen Anatomical Collection Method Collection Time Receive d Time (Source) Location / / Volume Laterality Blood 08/05/2020 4:19 PM 4:45 EDT PM EDT Resulting Agency Comment Spec In Lab Manny Lugo MD HEMATOLOGY ORDERABLES Performing Organization Address City/[facility] [address]/[place] [address] Prothrombin Time (08/05/2020 4:19 PM EDT) athologist Signature PT 12.1 9.4 - 12.5 [facility] LABORATORY INR 1.1 [facility] Comment: An INR <2.0 indicates [...] EDT Resulting Agency Comment Spec In Lab Tory Willard APRN HEMATOLOGY ORDERABLES Performing Organization Address City/[facility] [address]/[place] [address] (ABNORMAL) Comprehensive metabolic panel (non-fasting) (08/05/2020 4:19 PM EDT) P athologist Signature Glucose Lvl 322 (H) 65 - 199 [facility] mg/dL [facility] Comment: Diabetes: >=200 mg/dL plus symp toms BUN 8 8 - 18 mg/dL [facility]OR[facility] Creatinine 0.73 0.70 - 1.20 mg/dL [facility] LABORATORY Sodium 141 135 - 145 mmol/L [facility]OR[facility] Potassium 4.0 3.5 - 5.0 mmol/L [facility] Comment: Please note: ??Patients with WBC >100,00 0 may have falsely elevated Potassium levels. ??For accurate Potassium quantif ication in these patients send serum separator tube (gold top) for subsequent determinations. ??Contact the Clinical Chemistry Laboratory if there are any qu estions. Chloride 103 98 - 107 mmol/L [facility] CO2 26 22 - 31 mmol/L [facility] Anion Gap 12 5 - 15 mmol/L [facility] Calcium 9.7 8.5 - 10.5 mg/dL [facility] Total Protein 7.9 6.1 - 8.0 gm/dL [facility]OR[facility] Albumin 4.3 3.2 - 5.2 gm/dL [facility] AST 19 0 - 30 unit/L [facility] ALT 13 0 - 30 unit/L [facility] Alk Phos 68 35 - 105 unit/L [facility] Total Bilirubin 0.2 0.2 - 1.3 mg/dL [facility] Estimated GFR 83 >=60 mL/min/1.73 m?? [facility] Comment: This patient? s estimated [...] Zaldivar DO CHEMISTRY ORDERABLES Performing Organization Address City/[facility] [address]/ZIP [facility] [place] [address] (ABNORMAL) Sedimentation rate (08/05/2020 4:19 PM EDT) P athologist Signature Sed Rate 51 (H) 3 - 46 [facility] mm/hr [facility] Comment: Effective February 01, 2019 [...] Agency Comment Spec In Lab Elida Israelew DO HEMATOLOGY ORDERABLES Performing Organization Address [facility] [address]/[place] [address] CRP, acute inflammation (08/05/2020 4:19 PM EDT) P athologist Signature CRP <3.0 <=4.9 mg/L [facility] Specimen Anatomical Collection Method Collection Time Receive d Time (Source) Location / / Volume Laterality Blood 08/05/2020 4:19 PM 1 4:45 EDT PM EDT Resulting Agency Comment Spec In Lab Elida Zaldivar DO CHEMISTRY ORDERABLES Performing Organization Address City/[facility] [address]/ZIP [place] [address] documented in this encounter Visit Diagnoses Diagnosis Psoriatic arthritis Psoriatic arthropathy Hepatic cirrhosis, unspecified hepatic c irrhosis type, unspecified whether ascites present documented in this encounter Care Teams All Around Gear Machine Operator Relationship Specialty Start Date End Date Maricarmen Galvan APRN PCP - General Family Medicine 05/10/18 [address] [place] [address] documented as of this encounter
--- OUTSIDE RECORDS SUMMARY | 2021-09-05 01:08 | XMS_ITS | Encounter Summary ---
:1950 Author Organization [facility] [place] [address] Care Team Providers Name Role Phone Maricarmen Galvan GINSENG FARMER Primary Care Provider Encounter Details Date Type Department Care Team Description 04/29/2020 Refill Rheumatology at [facility] Manny Lugo MD [facility] [address] [place] [address] RHEUMATOLOGY DEPT [phone] [place], [place] [address] (Wo rk) Social History Tobacco [...] Description 09/11/2021 Appointment Radiology Tory Willard APRN [facility] ER GASTROENTEROLOGY [place], [place] [address] (Wo rk) 09/11/2021 Laboratory Appointment Lab 09/11/2021 Office Visit Gastroenterology Tory Willard APRN [facility] ER GASTROENTEROLOGY [place], [place] [address] (Wo rk) 09/11/2021 Office Visit Rheumatology Lorenzo Hermosillo PA [facility] [address] [place]IAM [place], [place] [address] (Wo rk) Scheduled Procedures Name Priority Associated Diagnoses Date/Time EGD, UPPER GI ENDOSCOPY Hepatic cirrhosis, unspe cified hepatic cirrhosis type, unspecified whet her ascites present documented as of this encounter Visit Diagnoses Not on filedocumented in this encounter Care Teams Plate Corrector Relationship Specialty Start Date End Date Maricarmen Galvan APRN PCP - General Family Medicine 05/10/18 [address] [place] [address] documented as of this encounter
--- OUTSIDE RECORDS SUMMARY | 2021-09-05 01:08 | XMS_ITS | Encounter Summary ---
:1950 Author Organization [facility] [place] [address] Care Team Providers Name Role Phone Maricarmen Galvan DIGITAL DATA ANALYST Primary Care Provider Encounter Details Date Type Department Care Team Description 02/10/2021 Notes Only Care Management [place] [address] Social History Tobacco Use Types Packs/Day Years Used Date Never Smoker Smokeless Tobacco: Never Used Alcohol Use Standard Drinks/Week Comments No 0 (1 standard drink = 0.6 oz pure alcoho l) Sex Assigned at Date Recorded Not on file documented as of this encounter Progress Notes Analia Mccarthy - 02/10/2021 9:46 AM EST I sent the application for assistance with Otezla to Dr. Hermosillo for their signature and prescription. I will follow through with the remainder of the application once everything is returned to me. documented in this encounter Plan of Treatment Upcoming Encounters Date Type Specialty Care Team Description 09/11/2021 Appointment Radiology Tory Willard APRN [facility] GASTROENTEROLOGY [place], [place] [address] (Wo rk) 09/11/2021 Laboratory Appointment Lab 09/11/2021 Office Visit Gastroenterology Tory Willard APRN [facility] GASTROENTEROLOGY [place], [place] [address] (Wo rk) 09/11/2021 Office Visit Rheumatology Lorenzo Hermosillo PA [facility] DR [place], [place] [address] (Wo rk) Scheduled Procedures Name Priority Associated Diagnoses Date/Time EGD, UPPER GI ENDOSCOPY Hepatic cirrhosis, unspe cified hepatic cirrhosis type, unspecified whet her ascites present documented as of this encounter Visit Diagnoses Not on filedocumented in this encounter Care Teams Strawhat Inspector And Packer Relationship Specialty Start Date End Date Maricarmen Galvan, DIGITAL DATA ANALYST PCP - General Family Medicine 05/10/18 [address] [place] [address] documented as of this encounter
--- OUTSIDE RECORDS SUMMARY | 2021-09-05 01:08 | XMS_ITS | Encounter Summary ---
:1950 Author Organization [facility] [place] [address] Care Team Providers Name Role Phone Maricarmen Galvan JORGE Primary Care Provider Encounter Details Date Type Department Care Team Description 02/19/2020 Ancillary Procedure Radiology at [facility] Courtney Garrido [address] [place] [address] 10 JACKELYN MORRIS DAY [phone] DR NOLEN-DAMION Nguyen [place], [place] [address] Social History Tobacco Use Types Packs/Day Years Used Date Never Smoker Smokeless Tobacco: Never Used Alcohol Use Standard Drinks/Week Comments No 0 (1 standard drink = 0.6 oz pure alcoho l) Sex Assigned at Date Recorded Not on file documented as of this encounter Plan of Treatment Upcoming Encounters Date Type Specialty Care Team Description 09/11/2021 Appointment Radiology Tory Willard APRN [facility] GASTROENTEROLOGY [place], [place] [address] (Wo rk) 09/11/2021 Laboratory Appointment Lab 09/11/2021 Office Visit Gastroenterology Tory Willard APRN [facility] GASTROENTEROLOGY [place], [place] [address] (Wo rk) 09/11/2021 Office Visit Rheumatology Lorenzo Hermosillo PA [facility] RHEUMATOLOGY [place], [place] 5 (Wo rk) Scheduled Procedures Name Priority Associated Diagnoses Date/Time EGD, UPPER GI ENDOSCOPY Hepatic cirrhosis, unspe cified hepatic cirrhosis type, unspecified whet her ascites present documented as of this encounter Procedures Procedure Name Priority Date/Time Associated Diagnosis Comme nts FILM LIBRARY Routine 02/19/2020 12:00 AM Results for this STORAGE ONLY MR EST procedure ar e in SPINE the results section. documented in this encounter Results Film Library- Storage Only MR Spine (02/19/2020 12:00 AM EST) Specimen (Source) Anatomical Location Collection Method / Collectio n Time Received Time / Laterality Volume Narrative GIO FONSECA - 03/04/2020 3:51 PM EST This exam is auto-finalizing. It's purpo se is for storage only. Courtney Garrido MD IMLetty FILM LIBRARY ORDERABLES Performing Organization Address City/State/ZIP Code Phon e Number [facility] [place], [place] documented in this encounter Visit Diagnoses Not on filedocumented in this encounter Care Teams Pay Clerk Relationship Specialty Start Date End Date Maricarmen Galvan, TUBE AND ROD STRAIGHTENER PCP - General Family Medicine 05/10/18 [address] [place] [address] documented as of this encounter
--- OUTSIDE RECORDS SUMMARY | 2021-09-05 01:08 | XMS_ITS | Encounter Summary ---
:1950 Author Organization [facility] [place] [address] Care Team Providers Name Role Phone Maricarmen Galvan STRIPPING MACHINE OPERATOR Primary Care Provider Reason for Visit Reason Comments Follow-up Encounter Details Date Type Department Care Team Description 04/29/2020 Office Visit Rheumatology at [facility] Manny Lugo Psoriatic arthritis; [facility] MD Valerie Long-term use of [place] [phone] RHEUMATOLOGY [place], [place] [address] Social History Tobacco Use Types Packs/Day Years Used Date Never Smoker Smokeless Tobacco: Never Used Alcohol Use Standard Drinks/Week Comments No 0 (1 standard drink = 0.6 oz pure alcoho l) Sex Assigned at Date Recorded Not on file documented as of this encounter Last Filed Vital Signs Vital Sign Reading Time Taken Comments Blood Pressure 120/69 04/29/2020 3:15 PM EST Pulse 100 04/29/2020 3:15 PM EST Temperature 36.3 ??C (97.3 ??F) 04/29/2020 3:15 PM EST Respiratory Rate 20 04/29/2020 3:15 PM EST Oxygen Saturation 100% 04/29/2020 3:15 PM EST Inhaled Oxygen Concentration - - Weight 52.3 kg (115 lb 6.4 oz) 04/29/2020 3:15 PM with shoes EST Height 154.9 cm (5' 1) 04/29/2020 3:15 PM EST Body Mass Index 21.8 04/29/2020 3:15 PM EST documented in this encounter Progress Notes Manny Lugo MD - 04/29/2020 3:00 PM EST Rheumatology Outpatient Follow-Up Note Reason: Psoriatic arthritis. ?? HPI: Patient??is a 68-year-old female with a PMH of??osteoporosis,??osteoarthritis (cervical spine disc & facet degenerative disease s/p C-spine surgery 2012),??psoriatic arthritis, fibromyalgia, HT N,??HLD, DM, GERD,??hypothyroidism, vitamin D deficiency,??hemorrhoids, and chronic thrombocytopenia. ?? Rheum History: ?? 1) Psoriatic Arthritis - 08/2018 transferred care to [facility] form Dr. Wang -Dx??in [address] Burleson in [facility] -Affected joints: hand, wrist, elbow, shoulder, knee, ankle, neck -Treatment: Enbrel (+MTX 5 mg weekly for part of the course; as per Dr Burleson notes given to Dr. Wang higher doses of MTC caused liver issues) [id number].?? -??Humira since 2011 (20 mg every other [...] z score 0.4 -Off Fosamax since 2010 3) Following with GI for cirrhosis, suspected to be secondary from DILI, negative LEO/ A1AT/ Vizcaino/ TTG IgAb ?? Interval History: -Patient reports that she was on Humira but stopped this 3 months ago given pain with the injections -Patient prefers not to take any injectable immunomodulators -She reports that she does not feel significantly worse since stopping the Humira -Since stopping Humira, she denies any flare-ups of joint swelling/warmth/redniess nor does she haveany prolonged AM stiffness -AM stiffness is only a few minutes - 30 mins in her hands -She also some psoriasis spots on arms -Complaining of some L ankle pain at Achilles tendon insertion site -She has some chronic knee pain and back pain, worse with activity, better with rest -She has also been having some lower back and neck pain, for which she is following with PCP and Medical Equipment Repair Technician at [facility]. She recently had an open MRI in [place] -Taking tramadol PRN, prescribed by PCP, for las 2 weeks, for back/neck pain -No chest pain, pleurisy, shortness of breath, cough -No fevers, no recent infections -No uveitis, cataracts done recently. Has diabetic neuropathy. -Patient reports that she has been off Keppra for a long time, and no recent recurrent seizures. -COVID vaccine tomorow ROS: No fevers, chills, chest pain, SOB. [...] ENDOSCOPY performed by Azam Dee MD at [facility] ENDOSCOPY ??? TUBAL LIGATION Family Hx: [...] Not on file Occupational History ??? 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 Smoking status: Never Smoker ??? Smokeless tobacco: Never Used Substance and Sexual Activity ??? Alcohol use: [...] Not Asked Social History Narrative Born in [place], grew up there and went to high school in [place], did not graduate, and her current , 43 years ago. And have three children. She stayed at home to raise her children. Social Determinants of Health Financial Resource Strain: ??? Difficulty of Paying Living Expenses: Not on file Food Insecurity: ??? Worried About Running Out of Food in the Last Year: Not on file ??? Ran Out of Food in the Last Year: Not on file Transportation Needs: ??? Lack of Transportation (Medical): Not on file ??? Lack of Transportation (Non-Medical): Not on file Physical Activity: ??? Days of Exercise per Week: Not on file ??? Minutes of Exercise per Session: Not on file Medications: Current Outpatient Medications on File Prior to Visit Medication Sig Dispense Refill ??? freestyle lite strips USE TO TEST [...] mouth 2 times daily (with meals). ??? adalimumab (Humira,CF, Pen) 40 mg/0.4 mL Pen Injector Kit Inject 40 mg subcutaneously every 14 days. (Patient not taking: Reported on 04/29/2020) 1 kit 11 ??? diclofenac (VOLTAREN) 1 % Gel Apply 2 g topically 2 times daily as needed. (Patient not taking: Reported on 03/10/2019) 100 g 3 Current Facility-Administered Medications on File Prior to [...] not sure about reaction. Physical Examination: BP 120/69 (BP Location (NBP): Right arm, Patient Position: Sitting, BP Cuff Sizes: Adult (25-34 cm)) Pulse 100 Temp 36.3 ??C (97.3 ??F) (Temporal) Resp 20 Ht 154.9 cm (5' 1) Wt 52.3 kg (115 lb 6.4 oz) Comment: with shoes SpO2 100% BMI 21.80 kg/m?? General: Thin elderly female sitting in chair in NAD HEENT: Wearing mask, EOMs intact, no conjunctival injection Neck: Supple Cardiovascular: RRR Lungs: CTA b/l Abdomen: Soft, nontender, nondistended Back: + kyphosis, limited ROM of cervical spine (cannot touch chin to chest) Neuro: Alert and oriented x3. Strength 5/5 throughout, Sensation to light touch is grossly normal throughout. Skin: Small patches of psoriasis on arms b/l ?? Extremities: Shoulders: FROM, non-tender to palpation Elbows:FROM Wrists: FROM, + slight warmth at left wrist compared to right wrist but no tenderness or swelling b/l Hands: No synovitis, no MCP compression tenderness, full claw and fist. + Ulnar deviation. Hips: FROM, no tenderness Knees: FROM, no effusion, no tenderness, + crepitus Ankles: FROM, non-tender, no effusion on R. + Slight tenderness at R Achilles tendon insertion site with palpation and ankle flexion/extension. Feet: no MTP compression tenderness Laboratory Data: 04/29/20 -CBC wnl except chronic thrombocytopenia, Plt 104 -CMP wnl, Cr 0.62 -ESR 37 -CRP 1.8 ??Feb 2019 -Chronic thrombocytopenia, Plt 103 -Mild AST 32 -Negative hepatitis C and hepatitis B -Negative TTG IgA ?? 09/14/18 -CBC with no anemia??Hgb [...] 6.6 TSH 3.41 AST 19 ALT 23 Studies: ?? 09/14/18??Neck X-ray ? FINDINGS: Post [...] TR, mild pulmonic insufficiency, normal PAPs PFTs 2013: DLCO 72% of predicted CXR 2013: Normal 02/08 pharm stress test:??normal Assessment:??Patient??is a 68-year-old female with a PMH of??osteoporosis,??osteoarthritis (cervicalspine disc & facet degenerative disease s/p C-spine surgery 2012),??psoriatic arthritis, fibromyalgia, HTN,??HLD, DM, GERD,??hypothyroidism, vitamin D deficiency,??hemorrhoids, and chronic thrombocytopenia. She restarted Humira in August 2018, and had since improved in terms of morning stiffness andfatigue. She has stopped Humira over the last 3 months given discomfort with injections, though she denies any injection site reactions. She prefers to switch to an oral medication if possible. Her disease activity fortunately seems relatively stable despite being off the TNFi. She has morning stiffness for 30 minutes or less, no recent flareups, and and exam showing possibly very slight left wrist synovitis with some left ankle Achilles tendinopathy. Her neck and back pain is in the setting of DJD,and she is following at the spine center at [facility] for this. I discussed several options for psoriatic arthritis, and we agreed on pursuing Otezla. Plan as below. ?? Recommendations: -Check labs: CBC, CMP, ESR, CRP -Start Otezla with initial loading dose titration followed by 30 mg twice daily. Clinic pharmacist and I reviewed potential side effects with patient, and patient understands and agrees to use this DMARD. -Continue topical diclofenac gel as needed -Continue??Calcium 600 mg BID and Vit D3 2000 u daily??for osteopenia. Follow-up with PCP for repeatDEXA scan. -Advised patient to please call rheumatology clinic if she has any worsening joint pain or swelling. -Patient understands and agrees with plan -Follow-up in 3 months ?? The patient was discussed with Dr. Chema Lugo MD Rheumatology Fellow CC: Maricarmen Galvan APRN documented in this encounter Plan of Treatment Upcoming Encounters Date Type Specialty Care Team Description 09/11/2021 Appointment Radiology Tory Willard APRN [facility] GASTROENTEROLOGY [place], [place] [address] (Wo rk) 09/11/2021 Laboratory Appointment Lab 09/11/2021 Office Visit Gastroenterology Tory Willard APRN [facility] GASTROENTEROLOGY [place], [place] [address] (Wo rk) 09/11/2021 Office Visit Rheumatology Lorenzo Hermosillo PA [facility] RHEUMATOLOGY [place], [place] [address] (Wo rk) Scheduled Procedures Name Priority Associated Diagnoses Date/Time EGD, UPPER GI ENDOSCOPY Hepatic cirrhosis, unspe cified hepatic cirrhosis type, unspecified whet her ascites present documented as of this encounter Procedures Procedure Name Priority Date/Time Associated Comments Diagnosis HC VENIPUNCTURE Routine 04/29/2020 5:01 PM Psoriatic arthritis Results for this EST procedure are i n the results section. HEMOGRAM Routine 04/29/2020 5:01 PM Psoriatic arthritis Re sults for this EST procedure are i n the results section. DIFFERENTIAL, Routine 04/29/2020 5:01 PM Psoriatic arthritis R esults for this AUTOMATED EST procedure are i n the results section. HC ESR-SEDIMENTATION Routine 04/29/2020 5:01 PM Psoriatic arth ritis Results for this RATE, BLOOD EST procedure are i n the results section. HC CBC,PLT & AUTO DIFF Routine 04/29/2020 5:01 PM Psoriatic ar thritis EST COMPREHENSIVE Routine 04/29/2020 5:01 PM Psoriatic arthritis R esults for this METABOLIC PANEL EST procedure ar e in (NON-FASTING) the results section. documented in this encounter Results (ABNORMAL) Differential, Automated (04/29/2020 5:01 PM EST) [facility] Method Time Signature Neutrophils % 37.7 % [facility] LABORATORY Neutr Abs (ANC) 2.51 1.70 - [facility] 6.10 [facility] x10(3)/[facility] LABORATORY Lymphocytes % 26.1 % [facility] Lymphocytes Abs 1.7 0.9 - 3.2 [facility] x10(3)/[facility] LABORATORY Monocytes % 8.1 % [facility] Monocyte Abs 0.5 0.3 - 0.9 [facility] x10(3)/[facility] LABORATORY Eosinophils % 26.4 % [facility] Eosinophils Abs 1.8 (H) 0.0 - 0.4 [facility] x10(3)/[facility] LABORATORY Basophils % 1.4 % [facility] Basophils Abs 0.1 0.0 - 0.1 [facility] x10(3)/[facility] LABORATORY Immature Gran % 0.30 % [facility] Comment: Immature granulocytes(IG's)percentage an d absolute count will include metamyelocytes, myelocytes, and promyelo cytes. Blood smears from CBCs yielding IG's will be scanned manually for concor dance. If this scan disagrees with the automated IG or if promyelocytes are not ed, a manual differential will be performed. Judy Gran Abs 0.02 0.00 - 0.04 x10(3)/[facility] LABORATORY Specimen Anatomical Collection Method Collection Time Receive d Time (Source) Location / / Volume Laterality Blood specimen 04/29/2020 5:01 PM 021 5:39 (specimen) EST PM EST Resulting Agency Comment Spec In Lab Manny Lugo MD HEMATOLOGY ORDERABLES Performing Organization Address City/State/[place] [address] (ABNORMAL) Hemogram (04/29/2020 5:01 PM EST) Analysis Performed At Patho logist Time Signature WBC 6.6 4.0 - 9.5 [facility] x10(3)/[facility] LABORATORY RBC 4.04 4.00 - [facility] 5.21 [facility] x10(6)/[facility] LABORATORY Hemoglobin 11.9 11.7 - [facility] 15.5 gm/dL [facility] LABOR[facility]ORY Hematocrit 36.2 35.7 - [facility] 45.8 % [facility] MCV 89.6 82.6 - [facility] 94.4 fL [facility] MCH 29.5 27.1 - [facility] 32.0 pg [facility] MCHC 32.9 31.7 - [facility] 35.0 gm/dL [facility] Platelets 104 (L) 145 - 357 [facility] x10(3)/[facility] LABORATORY RDWSD 48.5 (H) 37.0 - [facility] 46.0 [facility] LABORATORY RDWCV 14.7 (H) 11.5 - [facility] 14.1 % [facility] LABORATORY MPV 10.3 7.6 - 12.9 [facility] LABORATORY nRBC % Auto 0.0 % [facility] LABORATORY nRBC Abs Auto 0.000 0.000 - [place] 0.000 [facility] x10(3)/[facility] LABORATORY Specimen Anatomical Collection Method Collection Time Receive d Time (Source) Location / / Volume Laterality Blood specimen 04/29/2020 5:01 PM 021 5:39 (specimen) EST PM EST Resulting Agency Comment Spec In Lab Manny Lugo MD HEMATOLOGY ORDERABLES Performing Organization Address City/[facility]/[place] [address] CRP, acute inflammation (04/29/2020 5:01 PM EST) P athologist Signature CRP 1.8 <=4.9 mg/L [facility]OR[facility] Specimen Anatomical Collection Method Collection Time Receive d Time (Source) Location / / Volume Laterality Blood specimen 04/29/2020 5:01 PM 021 5:39 (specimen) EST PM EST Resulting Agency Comment Spec In Lab Mamadou Bear II, DO CHEMISTRY ORDERABLES Performing Organization Address City/[facility]/ZIP [facility] [place] [address] Sedimentation rate (04/29/2020 5:01 PM EST) P athologist Signature Sed Rate 37 3 - 46 [facility] mm/hr [facility] Comment: Effective February 01, 2019 new capillar y photometric technology has resulted in a change in reference ranges. It is r ecommended that each ESR result be reviewed with its own age appropriate re ference range. Specimen Anatomical Collection Method Collection Time Receive d Time (Source) Location / / Volume Laterality Blood specimen 04/29/2020 5:01 PM 021 5:39 (specimen) EST PM EST Resulting Agency Comment Spec In Lab Mamadou Bear II, DO HEMATOLOGY ORDERABLES Performing Organization Address City/State/[place] [address] (ABNORMAL) Comprehensive metabolic panel (non-fasting) (04/29/2020 5:01 PM EST) P athologist Signature Glucose Lvl 122 65 - 199 [facility] mg/dL [facility] Comment: Diabetes: >=200 mg/dL plus symp toms BUN 12 8 - 18 mg/dL [facility] LABORATORY Creatinine 0.62 (L) 0.70 - 1.20 mg/dL [facility] LABOR[facility]ORY Sodium 142 135 - 145 mmol/L [facility] LABORATORY Potassium 4.5 3.5 - 5.0 mmol/L [facility]OR[facility] Comment: Please note: ??Patients with WBC >100,00 0 may have falsely elevated Potassium levels. ??For accurate Potassium quantif ication in these patients send serum separator tube (gold top) for subsequent determinations. ??Contact the Clinical Chemistry Laboratory if there are any qu estions. Chloride 104 98 - 107 mmol/L [facility] CO2 27 22 - 31 mmol/L [facility] Anion Gap 11 5 - 15 mmol/L [facility] LABORATORY Calcium 10.2 8.5 - 10.5 mg/dL [facility] LABORATORY Total Protein 7.8 6.1 - 8.0 gm/dL [facility] LABORATORY Albumin 4.1 3.2 - 5.2 gm/dL [facility] AST 25 0 - 30 unit/L [facility] ALT 15 0 - 30 unit/L [facility] Alk Phos 70 35 - 105 unit/L [facility] Total Bilirubin 0.3 0.2 - 1.3 mg/dL [facility] LABORATORY Estimated GFR 91 >=60 mL/min/1.73 m?? [facility] Comment: This patient? s estimated glomerular filtration rate (eGFR) is between 91 mL/min/1.73 m2 (patients with less muscl e mass) and 106 mL/min/1.73 m2 (patients with more muscle mass) as dete rmined by the CKD-EPI equation. Assessment of eGFR is not appropriate wh en creatinine concentrations are rapidly changing. For clinical decisions where creatinine clearance will affect therapy, a 24-hour urine creatinine ronal dejesus may be advised. Assignment of CKD stage 1 - 5 for patien ts with an eGFR near the transition point between stages may be based on cli nical assessment of muscle mass and symptoms in addition to eGFR. Specimen Anatomical Collection Method Collection Time Receive d Time (Source) Location / / Volume Laterality Blood specimen 04/29/2020 5:01 PM 021 5:39 (specimen) EST PM EST Resulting Agency Comment Spec In Lab Mamadou Bear II, CHEMISTRY ORDERABLES Performing Organization Address City/State/ZIP Code Phon e Number [place] [phone] documented in this encounter Visit Diagnoses Diagnosis Psoriatic arthritis Psoriatic arthropathy Long-term use of high-risk medication documented in this encounter Care Teams Shoulder Pad Molder Relationship Specialty Start Date End Date Maricarmen Galvan APRN PCP - General Family Medicine 05/10/18 [address] [place] [address] documented as of this encounter
--- OUTSIDE RECORDS SUMMARY | 2021-09-05 01:08 | XMS_ITS | Encounter Summary ---
:1950 Author Organization [facility] [place] [address] Care Team Providers Name Role Phone Maricarmen Galvan JORGE Primary Care Provider Reason for Visit Reason Onset Date Comments Other 05/10/2020 Encounter Details Date Type Department Care Team Description 05/10/2020 Telephone [place] [facility] [place] Casey, [place] [address] Social History Tobacco Use Types Packs/Day Years Used Date Never Smoker Smokeless Tobacco: Never Used Alcohol Use Standard Drinks/Week Comments No 0 (1 standard drink = 0.6 oz pure alcoho l) Sex Assigned at Date Recorded Not on file documented as of this encounter Miscellaneous Notes Telephone Encounter - Shoaib Casey RN - 05/10/2020 9:02 AM EDT Message routed to this RN patient is RTC. Called patient, unavailable. Left vm with call back number. documented in this encounter Plan of Treatment Upcoming Encounters Date Type Specialty Care Team Description 09/11/2021 Appointment Radiology Tory Willard APRN [facility] GASTROENTEROLOGY [place], [place] [address] (Wo rk) 09/11/2021 Laboratory Appointment Lab 09/11/2021 Office Visit Gastroenterology Tory Willard APRN [facility] GASTROENTEROLOGY [place], [place] [address] (Wo rk) 09/11/2021 Office Visit Rheumatology Lorenzo Hermosillo PA [facility] RHEUMATOLOGY [place], [place] [address] (Wo rk) Scheduled Procedures Name Priority Associated Diagnoses Date/Time EGD, UPPER GI ENDOSCOPY Hepatic cirrhosis, unspe cified hepatic cirrhosis type, unspecified whet her ascites present documented as of this encounter Visit Diagnoses Not on filedocumented in this encounter Care Teams Advisory Services Associate Relationship Specialty Start Date End Date Maricarmen Galvan, JORGE PCP - General Family Medicine 05/10/18 [address] [place] [address] documented as of this encounter
--- OUTSIDE RECORDS SUMMARY | 2021-09-05 01:08 | XMS_ITS | Encounter Summary ---
:1950 Author Organization [facility] [place] [address] Care Team Providers Name Role Phone aMricarmen Galvan RN INTEGRATED Primary Care Provider Reason for Visit Reason Comments Specialty Pharmacy Review [facility] (Otezla) Encounter Details Date Type Department Care Team Description 04/29/2020 Specialty Pharmacy Pharmacy at [facility], Specialty Pharmacy [facility] Jennifer Kim [facility] Review ([address] (Otezla)) [place] [id number] Social History Tobacco Use Types Packs/Day Years Used Date Never Smoker Smokeless Tobacco: Never Used Alcohol Use Standard Drinks/Week Comments No 0 (1 standard drink = 0.6 oz pure alcoho l) Sex Assigned at Date Recorded Not on file documented as of this encounter Plan of Treatment Upcoming Encounters Date Type Specialty Care Team Description 09/11/2021 Appointment Radiology Tory Willard APRN [facility] GASTROENTEROLOGY [place], [place] [address] (Wo rk) 09/11/2021 Laboratory Appointment Lab 09/11/2021 Office Visit Gastroenterology Tory Willard APRN [facility] GASTROENTEROLOGY [place], [place] [address] (Wo rk) 09/11/2021 Office Visit Rheumatology Lorenzo Hermosillo PA [facility] RHEUMATOLOGY [place], [place] [address] (Juhi rk) Scheduled Procedures Name Priority Associated Diagnoses Date/Time EGD, UPPER GI ENDOSCOPY Hepatic cirrhosis, unspe cified hepatic cirrhosis type, unspecified whet her ascites present documented as of this encounter Visit Diagnoses Not on filedocumented in this encounter Care Teams Cement Kiln Operator Relationship Specialty Start Date End Date Maricarmen Galvan APRN PCP - General Family Medicine 05/10/18 [address] [place] [address] documented as of this encounter
--- OUTSIDE RECORDS SUMMARY | 2021-09-05 01:08 | XMS_ITS | Encounter Summary ---
:1950 Author Organization [facility] [address] Care Team Providers Name Role Phone Maricarmen Galvan DATABASES SOFTWARE CONSULTANT Primary Care Provider Encounter Details Date Type Department Care Team Description 01/15/2021 Notes Only Care [place] [address] Social History Tobacco Use Types Packs/Day Years Used Date Never Smoker Smokeless Tobacco: Never Used Alcohol Use Standard Drinks/Week Comments No 0 (1 standard drink = 0.6 oz pure alcoho l) Sex Assigned at Date Recorded Not on file documented as of this encounter Progress Notes Analia Mccarthy - 01/15/2021 2:37 PM EST I sent the application for assistance with Otezla to Manny Lugo for their signature and prescription. I will follow through with the remainder of the application once everything is returned to me. documented in this encounter Plan of Treatment Upcoming Encounters Date Type Specialty Care Team Description 09/11/2021 Appointment Radiology Tory Willard APRN [facility] GASTROENTEROLOGY [place], [place] [address] (Wo rk) 09/11/2021 Laboratory Appointment Lab 09/11/2021 Office Visit Gastroenterology Tory Willard APRN [facility] GASTROENTEROLOGY [place], [place] [address] (Wo rk) 09/11/2021 Office Visit Rheumatology Lorenzo Hermosillo PA [facility] [address] [place], [place] [address] (Wo rk) Scheduled Procedures Name Priority Associated Diagnoses Date/Time EGD, UPPER GI ENDOSCOPY Hepatic cirrhosis, unspe cified hepatic cirrhosis type, unspecified whet her ascites present documented as of this encounter Visit Diagnoses Not on filedocumented in this encounter Care Teams Wind Operations Supervisor Relationship Specialty Start Date End Date Maricarmen Galvan, DATABASES SOFTWARE CONSULTANT PCP - General Family Medicine 05/10/18 [address] [place] [address] documented as of this encounter
--- OUTSIDE RECORDS SUMMARY | 2021-09-05 01:09 | XMS_ITS | Encounter Summary ---
:1950 Author Organization [facility] Address [address] [place] [address] Care Team Providers Name Role Phone Maricarmen Galvan POLICE RADIO DISPATCHER Primary Care Provider Encounter Details Date Type Department Care Team Description 07/21/2019 Orders Only Gastroenterology at [place] Tory Willard Hepatic cirrhosis, [facility] Robert [place] [address] [facility] cirrhosis type, [facility]ENTER unspecified whether GASTROENTEROLOGY ascites present [place] [id number] Social History Tobacco Use Types Packs/Day Years Used Date Never Smoker Smokeless Tobacco: Never Used Alcohol Use Standard Drinks/Week Comments No 0 (1 standard drink = 0.6 oz pure alcoho l) Sex Assigned at Date Recorded Not on file documented as of this encounter Plan of Treatment Upcoming Encounters Date Type Specialty Care Team Description 09/11/2021 Appointment Radiology Tory Willard APRN [facility] GASTROENTEROLOGY [place], [place] [address] (Wo rk) 09/11/2021 Laboratory Appointment Lab 09/11/2021 Office Visit Gastroenterology Tory Willard APRN [facility] GASTROENTEROLOGY [place], [place] [address] (Wo rk) 09/11/2021 Office Visit Rheumatology Lorenzo Hermosillo PA [facility] RHEUMATOLOGY [place], [place] [address] (Wo rk) Scheduled Procedures Name Priority Associated Diagnoses Date/Time EGD, UPPER GI ENDOSCOPY Hepatic cirrhosis, unspe cified hepatic cirrhosis type, unspecified whet her ascites present documented as of this encounter Visit Diagnoses Diagnosis Hepatic cirrhosis, unspecified hepatic c irrhosis type, unspecified whether ascites present documented in this encounter Care Teams Heading Repairer Relationship Specialty Start Date End Date Maricarmen Galvan APRN PCP - General Family Medicine 05/10/18 [address] [place] [address] documented as of this encounter
--- OUTSIDE RECORDS SUMMARY | 2021-09-05 01:09 | XMS_ITS | Encounter Summary ---
:1950 Author Organization [facility] [place] [address] Care Team Providers Name Role Phone Jeanna Smith JORGE Primary Care Provider Encounter Details Date Type Department Care Team Description 03/17/2012 External Results XRay at [facility] Jordan Wagner MD [address] [place] [address] [address] [place] [phone] NEUROSURGERY [phone] [place], [place] [address] (Wo rk) Social History Tobacco [...] Description 09/11/2021 Appointment Radiology Tory Willard APRN [facility] GASTROENTEROLOGY [place], [place] [address] (Wo rk) 09/11/2021 Laboratory Appointment Lab 09/11/2021 Office Visit Gastroenterology Tory Willard APRN [facility] GASTROENTEROLOGY [place], [place] [address] (Wo rk) 09/11/2021 Office Visit Rheumatology Lorenzo Hermosillo PA [facility] RHEUMATOLOGY [place], [place] [address] (Wo rk) Scheduled Procedures Name Priority Associated Diagnoses Date/Time EGD, UPPER GI ENDOSCOPY Hepatic cirrhosis, unspe cified hepatic cirrhosis type, unspecified whet her ascites present documented as of this encounter Procedures Procedure Name Priority Date/Time Associated Diagnosis Comme nts MRI/MRA SCAN Routine 03/15/2012 documented in this encounter Results Scan Doc: MRI/MRA (03/15/2012) Anatomical Region Laterality Modality Other Narrative This result has an attachment that is no t available. Jordan Wagner MD MEDIA MGR SCAN EXT ORDR/RSLT documented in this encounter Visit Diagnoses Not on filedocumented in this encounter Care Teams Plant Machinist Relationship Specialty Start Date End Date Jeanna Smith APRN PCP - General 12/16/11 05/09/18 [address] [place] [address] documented as of this encounter
--- OUTSIDE RECORDS SUMMARY | 2021-09-05 01:09 | XMS_ITS | Encounter Summary ---
:1950 [place] [address] Care Team Providers Name Role Phone Maricarmen Galvan SUPERVISOR GRIPS Primary Care Provider Encounter Details Date Type Department Care Team Description 12/26/2012 Interpretation Only Radiology at [facility] Unkno wn [facility] Ce nter None [address] [place] [address] [address] [address] Social History Tobacco Use Types Packs/Day [...] Tory Willard APRN [facility] GASTROENTEROLOGY [place], [place] [address] (Wo rk) 09/11/2021 Laboratory Appointment Lab 09/11/2021 Office Visit Gastroenterology Tory Willard APRN [facility] GASTROENTEROLOGY [place], [place] [address] (Wo rk) 09/11/2021 Office Visit Rheumatology Lorenzo Hermosillo PA [facility] RHEUMATOLOGY [place], [place] [address] (Wo rk) Scheduled Procedures Name Priority Associated Diagnoses Date/Time EGD, UPPER GI ENDOSCOPY Hepatic cirrhosis, unspe cified hepatic cirrhosis type, unspecified whet her ascites present documented as of this encounter Procedures Procedure Name Priority Date/Time Associated Diagnosis Comme nts XR FLUORO NO RAD Routine 12/26/2012 6:17 AM Resul ts for this <1HR - RADIOLOGY EST procedure a re in USE the results section. documented in this encounter Results XR Fluoro <1Hr - Radiology Use (12/26/2012 6:17 AM EST) Anatomical Region Laterality Modality N/A Radiographic Imaging Specimen (Source) Anatomical Collection Method Collection Time Re ceived Time Location / / Volume Laterality 12/26/2012 6:17 AM EST Narrative 12/26/2012 6:17 AM EST APD Historical Result Principal Informatics Consultant: ??KEREN ??B FLUOROSCOPIC ASSISTANCE: A total of 14.0 seconds of fluoroscopic assistance was provided to Dr Garrido during the performance of a surgical procedure. ??T his results in a cumulative dose of 3.00 mGy. ??Five images record the event. ??No Radiologist was in atten dance during service provision. Keren Orellana MD, FACR [facility] [id number] CC: Procedure Note Unknown - 08/22/2018Formatting of this n ote might be different from the original. APD Historical Result Principal Informatics Consultant: KEREN Greene FLUOROSCOPIC ASSISTANCE: A total of 14.0 seconds of fluoroscopic assistance was provided to Dr Garrido during the performance of a surgical procedure. Thi s results in a cumulative dose of 3.00 mGy. Five images record the event. No Radiologist was in attenda nce during service provision. Keren Orellana MD, FACR [facility] [id number] CC: Unknown IMG FLUORO ORDERABLES documented in this encounter Visit Diagnoses Not on filedocumented in this encounter Care Teams Cab Starter Relationship Specialty Start Date End Date Maricarmen Galvan, SUPERVISOR GRIPS PCP - General Family Medicine 3/19/19 [address] [place] [address] documented as of this encounter
--- OUTSIDE RECORDS SUMMARY | 2021-09-05 01:09 | XMS_ITS | Encounter Summary ---
:1950 [place] [address] Care Team Providers Name Role Phone Maricarmen Galvan TRAFFIC ADMINISTRATOR Primary Care Provider Encounter Details Date Type Department Care Team Description 07/05/2019 Telephone Endocrinology at [facility] [place] [address] Social History Tobacco Use Types Packs/Day Years Used Date Never Smoker Smokeless Tobacco: Never Used Alcohol Use Standard Drinks/Week Comments No 0 (1 standard drink = 0.6 oz pure alcoho l) Sex Assigned at Date Recorded Not on file documented as of this encounter Miscellaneous Notes Telephone Encounter - Addis Mc RMA - 07/05/2019 3:15 PM EDT JOCE Sr. Director Pre-Telemedicine Phone Note [] Patient not reached [x] Patient reached and the following information was reviewed/obtained per protocol: [] Confirmed patient name and date of [] Confirmed telemedicine kristyn (GILUPIo and Virtual Visit) is downloaded and functioning [] Confirmed location of patient - TeleVisit is taking place in [] [place] [] [place] [] If not on [facility], working on signing up for [facility] [] Confirmed has completed any pre-visit questionnaires [] If has not received required pre-visit questionnaires, send via [facility] [] Reviewed patient medications [] Documented self-reported vitals: [] Weight: [] Height [] pulse recorded: [x] Other information or concerns Pt would like to switch to telephone- directed her to the secretaries documented in this encounter Plan of Treatment Upcoming Encounters Date Type Specialty Care Team Description 09/11/2021 Appointment Radiology Tory Willard APRN [facility] GASTROENTEROLOGY [place], [place] [address] (Wo rk) 09/11/2021 Laboratory Appointment Lab 09/11/2021 Office Visit Gastroenterology Tory Willard APRN [facility] GASTROENTEROLOGY [place], [place] [address] (Wo rk) 09/11/2021 Office Visit Rheumatology Lorenoz Hermosillo, SHARITA [facility] ER RHEUMATOLOGY [place], [place] [address] (Wo rk) Scheduled Procedures Name Priority Associated Diagnoses Date/Time EGD, UPPER GI ENDOSCOPY Hepatic cirrhosis, unspe cified hepatic cirrhosis type, unspecified whet her ascites present documented as of this encounter Visit Diagnoses Not on filedocumented in this encounter Care Teams Steam Cleaning Machine Operator Relationship Specialty Start Date End Date Maricarmen Galvan APRN PCP - General Family Medicine 05/10/18 [address] [place] [address] documented as of this encounter
--- OUTSIDE RECORDS SUMMARY | 2021-09-05 01:09 | XMS_ITS | Encounter Summary ---
:1950 Author Organization [facility] [place] [address] Care Team Providers Name Role Phone Maricarmen Galvan JORGE Primary Care Provider Encounter Details Date Type Department Care Team Description 09/14/2018 Hospital Encounter XRay at [facility] Dio Jensen Psoriatic arthritis [address] [place] [address] [place] [address] RHEUMATOLOGY DEPT. [phone] [place], [place] [address] (Wo rk) Social History Tobacco Use Types Packs/Day Years Used Date Never Smoker Smokeless Tobacco: Never Used Alcohol Use Standard Drinks/Week Comments No 0 (1 standard drink = 0.6 oz pure alcoho l) Sex Assigned at Date Recorded Not on file documented as of this encounter Medications at Time of Discharge Medication Sig Dispensed Refills Start Date End Date lansoprazole Take 30 mg by mouth 0 [...] tablet 2 times daily (with meals). adalimumab (HUMIRA,CF, Inject 40 mg 3 kit 3 09/14/2018 09/23/2018 PEN) 40 mg/0.4 mL Pen subcutaneously every 14 Injector Kit days. documented as of this encounter Plan of Treatment Upcoming Encounters Date Type Specialty Care Team Description 09/11/2021 Appointment Radiology Tory Willard APRN [facility] GASTROENTEROLOGY [place], [place] [address] (Wo rk) 09/11/2021 Laboratory Appointment Lab 09/11/2021 Office Visit Gastroenterology Tory Willard APRN [facility] GASTROENTEROLOGY [place], [place] [address] (Wo rk) 09/11/2021 Office Visit Rheumatology Lorenzo Hermosillo PA [facility] RHEUMATOLOGY [place], [place] [address] (Wo rk) Scheduled Procedures Name Priority Associated Diagnoses Date/Time EGD, UPPER GI ENDOSCOPY Hepatic cirrhosis, unspe cified hepatic cirrhosis type, unspecified whet her ascites present documented as of this encounter Procedures Procedure Name Priority Date/Time Associated Diagnosis Comme nts XR CERVICAL SPINE 2 Routine 09/14/2018 3:31 PM Psoriatic arthr itis Results for this OR 3 VIEWS EDT procedure are i n the results section. XR HAND MIN 3 VIEWS Routine 09/14/2018 3:31 PM Psoriatic arthr itis Results for this BILAT EDT procedure are i n the results section. documented in this encounter Results XR Hand Min 3 views Bilat (Generic) (09/14/2018 3:31 PM EDT) Anatomical Region Laterality Modality Hand Bilateral Digital Radiography Specimen (Source) Anatomical Location Collection Method / Collectio n Time Received Time / Laterality Volume Impressions 09/14/2018 5:05 PM EDT 1. ??No ankylosis or periostitis 2. ??Solitary marginal radiolucency at r ight 2 DIP joint likely represents degenerative cyst rather than erosions. 3. ??Osteoarthropathy at multiple sites Thank you for letting us participate in the care of this patient. For questions regarding this report, please contact e number below. ? Electronically signed by: Jenni Toure [facility] ([phone]), at 09/14/2018 5:05 PM Narrative 09/14/2018 5:05 PM EDT EXAMINATION: XR HAND MIN 3 VIEWS BILAT (GENERIC) CLINICAL HISTORY: Psoriatic arthritis, , entered by ordering service TECHNIQUE: 4 views each hand COMPARISON: The 2001 radiographs are no longer available for comparison. FINDINGS: BONES : Decreased bone mineralization. No ankylo sis or periostitis. SOFT TISSUES: Amorphous calcification around right rig ht third DIP joint represents hydroxyapatite deposition. JOINTS: 2-5 DIP joints- small osteophytes at sca ttered DIP joints. Solitary marginal radiolucency at right second DIP joint, degenerative cyst versus erosion.. 2-5 PIP joints- scattered small osteophy angela and normal joint spaces. 2-5 MCP joints- no erosions and relative preserved joint spaces Thumb (Basal, scaphoid trapezial trapezo id [STT] and 1 MCP & 1 IP joints)-osteophytes and joint space narr owing more pronounced at STT joints. Radial carpal joint- narrowed bilateral scaphoid fossa and left lunate fossa. No erosions. Bilateral ulnar positive varia nce more prominent on the left. Distal radioulnar joint - osteoarthropat hy more prominent on the left. Procedure Note Jenni Toure MD - 09/14/2018Formatt ing of this note might be different from the original. EXAMINATION: XR HAND MIN 3 VIEWS BILAT ( GENERIC) CLINICAL HISTORY: Psoriatic arthritis, , entered by ordering service TECHNIQUE: 4 views each hand COMPARISON: The 2001 radiographs are no longer available for comparison. FINDINGS: BONES : Decreased bone mineralization. No ankylo sis or periostitis. SOFT TISSUES: Amorphous calcification around right rig ht third DIP joint represents hydroxyapatite deposition. JOINTS: 2-5 DIP joints- small osteophytes at sca ttered DIP joints. Solitary marginal radiolucency at right second DIP joint, degenerative cyst versus erosion.. 2-5 PIP joints- scattered small osteophy angela and normal joint spaces. 2-5 MCP joints- no erosions and relative preserved joint spaces Thumb (Basal, scaphoid trapezial trapezo id [STT] and 1 MCP & 1 IP joints)-osteophytes and joint space narr owing more pronounced at STT joints. Radial carpal joint- narrowed bilateral scaphoid fossa and left lunate fossa. No erosions. Bilateral ulnar positive varia nce more prominent on the left. Distal radioulnar joint - osteoarthropat hy more prominent on the left. IMPRESSION 1. No ankylosis or periostitis 2. Solitary marginal radiolucency at rig ht 2 DIP joint likely represents degenerative cyst rather than erosions. 3. Osteoarthropathy at multiple sites Thank you for letting us participate in the care of this patient. For questions regarding this report, please contact th e number below. Electronically signed by: Jenni Toure [facility] ([phone]), at 09/14/2018 5:05 PM Dio Jensen MD IMG DX ORDERABLES documented in this encounter Visit Diagnoses Diagnosis Psoriatic arthritis Psoriatic arthropathy documented in this encounter Care Teams Crew Scheduler Relationship Specialty Start Date End Date Maricarmen Galvan APRN PCP - General Family Medicine 05/10/18 [address] [place] [address] documented as of this encounter
--- OUTSIDE RECORDS SUMMARY | 2021-09-05 01:09 | XMS_ITS | Encounter Summary ---
:1950 Author Organization [facility] [place] [address] Care Team Providers Name Role Phone Maricarmen Galvan APRN Primary Care Provider Reason for Visit Reason Onset Date Comments Medication Refill 09/23/2018 Encounter Details Date Type Department Care Team Description 09/23/2018 Refill Rheumatology at [facility] Shoaib Casey, [place] [address] Social History Tobacco Use Types Packs/Day Years Used Date Never Smoker Smokeless Tobacco: Never Used Alcohol Use Standard Drinks/Week Comments No 0 (1 standard drink = 0.6 oz pure alcoho l) Sex Assigned at Date Recorded Not on file documented as of this encounter Miscellaneous Notes Telephone Encounter - Shoaib Casey RN - 09/26/2018 10:31 AM EDT Girish Gary on behalf of patient requests prescription for Humira (non CF) be sent to [facility] in [place], [place]. Telephone Encounter - Shoaib Casey RN - 09/23/2018 11:08 AM EDT Petty from [facility] (PCP office) states patient must fill Humira at [facility] [place], [place] and that cost is significantly higher for the Humira CF as opposed to regular Humira.New prescription routed. Telephone Encounter - Shoaib Casey RN - 09/23/2018 9:20 AM EDT Petty from [facility] leaves message on nurse triage line regarding Humira. Message states Humira issue. Returned call to Petty, unavailable. Message left with call back number provider. Sohan Fabiola Letty ?? 09/23/18 8:55 AM Note Petty calling to verify order for patient. Please call her today. She has tried several times to connect with licensed staff mft. ?? Her phone [phone] documented in this encounter Plan of Treatment Upcoming Encounters Date Type Specialty Care Team Description 09/11/2021 Appointment Radiology Tory Willard APRN [facility] GASTROENTEROLOGY [place], [place] [address] (Wo rk) 09/11/2021 Laboratory Appointment Lab 09/11/2021 Office Visit Gastroenterology Tory Willard APRN [facility] GASTROENTEROLOGY [place], [place] [address] (Wo rk) 09/11/2021 Office Visit Rheumatology Lorenzo Hermosillo PA [facility] RHEUMATOLOGY [place], [place] [address] (Wo rk) Scheduled Procedures Name Priority Associated Diagnoses Date/Time EGD, UPPER GI ENDOSCOPY Hepatic cirrhosis, unspe cified hepatic cirrhosis type, unspecified whet her ascites present documented as of this encounter Visit Diagnoses Not on filedocumented in this encounter Care Teams Customer Service Leader Relationship Specialty Start Date End Date Maricarmen Galvan, TUGBOAT MATE PCP - General Family Medicine 05/10/18 [address] [place] [address] documented as of this encounter
--- OUTSIDE RECORDS SUMMARY | 2021-09-05 01:09 | XMS_ITS | Encounter Summary ---
:1950 Author Organization [facility] [place] [address] Care Team Providers Name Role Phone Jeanna Smith JORGE Primary Care Provider Reason for Visit Reason Comments Low Back Pain follow up to imaging Encounter Details Date Type Department Care Team Description 03/07/2012 Follow-Up Spine Center at [facility] M D Spondylosis (Primary [facility] Dx) [facility] [address] [place] [address] [place] [address] [phone] (Wo rk) Social History Tobacco Use Types Packs/Day Years Used Date Never Smoker Smokeless Tobacco: Never Used Alcohol Use Standard Drinks/Week Comments No 0 (1 standard drink = 0.6 oz pure alcoho l) Sex Assigned at Date Recorded Not on file documented as of this encounter Patient Instructions Patient InstructionsBulfabby Kindra Kim, GLOBAL IMPLEMENTATION MANAGER - 03/07/2012 1:55 PM EST Welcome to [facility], your secure online access to your electronic medical record at [facility]. Using [facility] you will be able to send messages to your providers, view your test results, renew prescriptions, schedule appointments, and much more. Follow these instructions to enter your personal [facility] account for the first time: 1. Start your internet browser and type [email or web address] into the address bar. 2. In the New User box on the right-hand side of the Welcome page click the link that states, ???I have an activation code.?? 3. On the Identification page, follow these steps: a) Enter your [facility] activation code: [email or web address] b) Expires: 04/21/2012 1:55 PM IMPORTANT: This Activation Code will on the above mentioned date. If you do not sign up for [facility] by this date, you will need to request another activation code. c) Enter your date of , using the calendar tool provided. d) Enter your Zip code. e) Select ???submit?? to go to the next page. 4. On the Create Account page, follow these steps: a) Create a [facility] username. This can???t be changed, so choose one you won???t forget. b) Create a password that???s at least six characters long, and that contains at least two numbers. Your password can be changed at any time. Confirm your password by entering it once more. c) Enter your email address. This will be used to alert you to new information. Confirm your email address by entering it once more. d) Enter your security question. This will be used if you forget your password. e) Enter your security answer. Confirm your security answer by entering it once more. f) Select ???submit?? to view your electronic medical record. If you have any questions about [facility] or your Access Code, please call for [place], for [place] or for [place]. If you need technical support, please e-mail [email or web address]. Remember, [facility] is NOT for urgent needs! Always dial 911 for medical emergencies. documented in this encounter Progress Notes Jordan Wagner MD - 03/07/2012 4:20 PM EST Shereen Vega returns to the Spine Center. 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 She says that her symptoms have changed in quality recently and she now has more sense of her lower extremities giving out on her if she stands for any period of time. If she sits then this is relieved. Interestingly, this sounds more like a lumbar spine problem, and we have not imaged her lumbar spine, and I think that would be reasonable to do. I will arrange that for [facility] and I will see her back. documented in this encounter Plan of Treatment Upcoming Encounters Date Type Specialty Care Team Description 09/11/2021 Appointment Radiology Tory Willard APRN [facility] GASTROENTEROLOGY [place], [place] [address] (Wo rk) 09/11/2021 Laboratory Appointment Lab 09/11/2021 Office Visit Gastroenterology Tory Willard APRN [facility] GASTROENTEROLOGY [place], [place] [address] (Wo rk) 09/11/2021 Office Visit Rheumatology Lorenzo Hermosillo PA [facility] RHEUMATOLOGY [place], [place] [address] (Wo rk) Scheduled Procedures Name Priority Associated Diagnoses Date/Time EGD, UPPER GI ENDOSCOPY Hepatic cirrhosis, unspe cified hepatic cirrhosis type, unspecified whet her ascites present documented as of this encounter Visit Diagnoses Diagnosis Spondylosis - Primary Spondylosis of unspecified site without mention of myelopathy documented in this encounter Care Teams Textile Pin Worker Relationship Specialty Start Date End Date Jeanna Smith APRN PCP - General 12/16/11 05/09/18 [address] [place] [address] documented as of this encounter
--- OUTSIDE RECORDS SUMMARY | 2021-09-05 01:09 | XMS_ITS | Encounter Summary ---
:1950 Author Organization [facility] Address [facility] [place] [address] Care Team Providers Name Role Phone Maricarmen Galvan APRN Primary Care Provider Encounter Details Date Type Department Care Team Description 07/12/2019 Telephone Gastroenterology at [facility] Siomara Gaxiola [facility] [place] [address] Social History Tobacco Use Types Packs/Day Years Used Date Never Smoker Smokeless Tobacco: Never Used Alcohol Use Standard Drinks/Week Comments No 0 (1 standard drink = 0.6 oz pure alcoho l) Sex Assigned at Date Recorded Not on file documented as of this encounter Miscellaneous Notes Telephone Encounter - Analia Geronimo - 07/21/2019 2:56 PM EDT Received incoming call back from [facility] Radiology, stating pt called and they did not have the order. I advised them that someone from their office called us stating they could not do the vascular portion of the ultrasound, and that someone from our office had called them back stating it was okay to do without the vascular portion. The secretary to the vice president from [facility] said they need a new order, without the vascular part listed. Unsure why this message was not relayed to us when we called them back on the to let them know it was okay to proceed without the vascular portion. She said someone must have just tossed the order while waiting for the new order. She asked that we have the order changed and re-faxto them, and said they would reach back out to the pt to let them know what happened. Telephone Encounter - Analia Geronimo - 07/21/2019 2:51 PM EDT Pt's Girish called in stating they had not yet heard from [facility] to schedule pt's ultrasound.I advised him that they do have the order, and provided him the phone # to call them to schedule. I asked him to call us back once they had scheduled it, so we could schedule a telehealth or phone visit f/u for sometime after the imaging has been done. Telephone Encounter - Siomara Gaxiola - 07/12/2019 1:00 PM EDT [facility] contact the office to let us know that they received the order but they are not able to complete the vascular portion of this ultrasound. [facility] suggested patient has ultrasound here if that portionof the exam is needed. Telephone Encounter - Siomara Gaxiola - 07/12/2019 12:10 PM EDT US ordered faxed to [facility] Outpatient Imaging per 's request. He will call to schedule a telephone conference when scan is ordered. [facility] Alt: [phone] documented in this encounter Plan of Treatment Upcoming Encounters Date Type Specialty Care Team Description 09/11/2021 Appointment Radiology Tory Willard APRN [facility] GASTROENTEROLOGY [place], [place] [address] (Wo rk) 09/11/2021 Laboratory Appointment Lab 09/11/2021 Office Visit Gastroenterology Tory Willard APRN [facility] GASTROENTERTYRONE [place], [place] [address] (Wo rk) 09/11/2021 Office Visit Rheumatology Lorenzo Hermosillo PA [facility] RHEUMATOLOGY [place], [place] [address] (Wo rk) Scheduled Procedures Name Priority Associated Diagnoses Date/Time EGD, UPPER GI ENDOSCOPY Hepatic cirrhosis, unspe cified hepatic cirrhosis type, unspecified whet her ascites present documented as of this encounter Visit Diagnoses Not on filedocumented in this encounter Care Teams Metalsmith Helper Relationship Specialty Start Date End Date Maricarmen Galvan APRN PCP - General Family Medicine 05/10/18 [address] [place] [address] documented as of this encounter
--- OUTSIDE RECORDS SUMMARY | 2021-09-05 01:09 | XMS_ITS | Encounter Summary ---
:1950 Author Organization [facility] Address [facility] [place] [address] Care Team Providers Name Role Phone Maricarmen Galvan APRN Primary Care Provider Encounter Details Date Type Department Care Team Description 08/01/2019 TH Visit [place]ology [place] [facility] Tory Ayers Hepatic cirrhosis, (TeleHealth) [facility] Robert [place] [address] [facility] cirrhosis type, CENTER unspecified whether [place]STROENTER[place] [address] Social History Tobacco Use Types Packs/Day Years Used Date Never Smoker Smokeless Tobacco: Never Used Alcohol Use Standard Drinks/Week Comments No 0 (1 standard drink = 0.6 oz pure alcoho l) Sex Assigned at Date Recorded Not on file documented as of this encounter Progress Notes Tory Ayers APRN - 08/01/2019 11:30 AM EDT Images from the original note were not included. Hepatology Follow Up Note - Telehealth (via doximity) Patient: Eleazar Vega Gender: female : 1950 Provider: Tory Ayers NP Referring Physician: Maricarmen Galvan APRN HISTORY OF PRESENT ILLNESS Eleazar Vega is a 69 y.o. year old female with history of diabetes, psoriatic arthritis, and cirrhosis. I first met her 6 months and she returns today for follow up via video due to the COVID-19pandemic. Her stomach has been bothering her. Will get sharp pain that lasts about 1 minute. Pain will occur occasionally. She has a bowel movement every 2-5 days. She has a stool softener but hasn't been takingit regularly. She has been otherwise been feeling okay. She has been staying at home mostly with COVID and not going out much. PAST MEDICAL/SURGICAL HISTORY Psoriatic arthritis - Took Methotrexate for a short period (under a year). Current taking Humira. Diabetes - past 20 years.. Taking Metformin. Hyperlipidemia Hypothyroid Cirrhosis - first diagnosed 01/2019 with appearance of cirrhotic appearing liver on imaging and intra-abdominal varices. - EGD 07/25/19: no esophogeal or gastric varices MEDICATIONS Outpatient Medications Marked as Taking for the 08/01/19 encounter (Appointment) with Tory Ayers APRN Medication Sig Dispense Refill ??? adalimumab (Humira,CF, Pen) 40 mg/0.4 mL Pen Injector Kit Inject 40 mg subcutaneously every 14 days. 1 kit 11 ??? fluticasone propion-salmeterol (ADVAIR) 100-50 mcg/dose Disk [...] (with meals). Current Facility-Administered Medications for the 08/01/19 encounter (Appointment) with Tory Ayers APRN Medication Dose Route [...] known hx of liver disease. PHYSICAL EXAM No vitals or exam done over the phone. Lab Results Component Value Date WBC 5.4 03/10/2019 HGB 13.1 03/10/2019 HCT 37.8 03/10/2019 MCV 95.2 (H) 03/10/2019 PLATELET 103 (L) 03/10/2019 No results for input(s): INR in the last 168 hours. Lab Results Component Value Date ALT 21 03/10/2019 AST 32 (H) 03/10/2019 ALKPHOS 50 03/10/2019 BILITOT 0.4 03/10/2019 Chemistry Component Value Date/Time NA 140 03/10/2019 [...] patient to home. ?- Follow up with Tory Ayers in ?Hepatology clinic as scheduled. Ultrasound 07/28/19: ASSESSMENT/PLAN Eleazar Vega is a 69 y.o. female with history of diabetes, hyperlipidemia, psoriatic arthritis and newly diagnosed cirrhosis, likely due to ALFARO or medication (prior Methotrexate). The etiology of her cirrhosis is less clear. She does have ALFARO risk factors including diabetes and hyperlipidemia. She is not overweight with a current BMI of 23. She does have a history of methotrexate use although states she took this for less than a year and I would not expect cirrhosis to developin that short of a time period. It is possible that she has had some drug-induced liver injury in the past and she reports that her platelets dropped to nearly undetectable after a medication. I will check blood work today for other causes of cirrhosis. It is interesting that her liver enzymes are normal. 1. Cirrhosis. Etiology possibly ALFARO. Her [...] in 2-3 years. 3. HCC surveillance. US 07/2019 with no lesions, plan to repeat in 6 months. 4. Preventative health. She should be vaccinated to hepatitis a and B. We discussed that she should not take NSAIDs and that it is okay to take up to 2000 mg of Tylenol per day. Plan: - Follow up in 6 months with labs an US - Recommend vaccination to Hepatitis A and B, which can be done locally through PCP. Tory Ayers APRN Section of Gastroenterology [place] [address] Copy: Maricarmen Galvan APRN [address] / [place] [address] Patient verbally consents to this video visit and understands that this visit may be billed, similarto a clinic office visit. I provided care to the patient today via video call, 15 minutes telephone visit was spent in discussion with patient on above. documented in this encounter Plan of Treatment Upcoming Encounters Date Type Specialty Care Team Description 09/11/2021 Appointment Radiology Tory Ayers APRN [facility] GASTROENTEROLOGY [place], [place] [address] (Wo rk) 09/11/2021 Laboratory Appointment Lab 09/11/2021 Office Visit Gastroenterology Tory Ayers APRN [facility] GASTROENTEROLOGY [place], [place] [address] (Wo rk) 09/11/2021 Office Visit Rheumatology Lorenzo Hermosillo PA [facility] RHEUMATOLOGY [place], [place] [address] (Wo rk) Scheduled Procedures Name Priority Associated Diagnoses Date/Time EGD, UPPER GI ENDOSCOPY Hepatic cirrhosis, unspe cified hepatic cirrhosis type, unspecified whet her ascites present documented as of this encounter Results Prothrombin Time (02/06/2020 10:49 AM EST) P athologist Signature PT 11.7 9.4 - 12.5 [facility] LABORATORY INR 1.0 [facility] Comment: An INR <2.0 indicates [...] Resulting Agency Comment Spec In Lab Tory Ayers JORGE HEMATOLOGY ORDERABLES Performing Organization Address City/State/ZIP Code Phon e Number [place] [phone] US Abdomen Limited Hepatology Protocol (02/06/2020 9:53 [...] Electronically signed by: Elida Allen MD, Radiology [place] ([phone]), at 10:13 AM Prostate Exam Reason^cirrhosis, screen for varices ? Elida Allen, Staff Physician Electronically Signed Final Report ?? 10:19 am Narrative 02/06/2020 10:20 AM EST Abdominal ? (Signed Final 02/06/2020 10:19 am) PATIENT INFO: ID #: ? [id number] ?: ??[birth year] (69 yrs)(F) Name: ? ELEAZAR Kim ? Visit Date: 02/06/2020 09:51 am ? BO PERFORMED BY: Performed By: ? Hong ORDONEZ, Michael miranda Attending: ?Tiffany SHARPE, Elida Casper Referred By: ?TORY AYERS Location: ? [place] SERVICE(S) PROVIDED: ??UABDLIM - Hepatology Protocol - Abdom inal ? [id number] ??Limited Survey Single Organ or Quadra nt - ??[id number] INDICATIONS: ??cirrhosis, screen for varices COMPARISON: Abdominal ultrasound ??07/28/19 from [facility] ------ LIVER: ------ Right Lobe Length: ?? [...] 10:1 9 am) PATIENT INFO: ID #: [id number] : [birth year] (69 y rs)(F) Name: ELEAZAR Kim Visit Date: 02/06/2020 09:51 am BO PERFORMED BY: Performed By: Nessa Pitts RDMS Attending: Elida Allen MD Referred By: TORY AYERS Location: [place] SERVICE(S) PROVIDED: UABDLIM - [place]at[place] [id number] Limited Survey Single Organ or Quadrant - [id number] INDICATIONS: cirrhosis, screen for varices COMPARISON: Abdominal ultrasound 07[facility]28/[facility] from [facility] [...] below. Electronically signed by: Elida Allen MD, [facility] ([phone]), at 10:13 AM Prostate Exam Reason^cirrhosis, screen for varices Elida Allen, Staff Physician Electronically Signed Final Report 02/05 10:19 am Tory Ayers APRN [facility] GEN ORDERABLES documented in this encounter Visit Diagnoses Diagnosis Hepatic cirrhosis, unspecified hepatic c irrhosis type, unspecified whether ascites present Hepatic cirrhosis, unspecified hepatic c irrhosis type, unspecified whether ascites present documented in this encounter Care Teams Remediation Bioanalytics Consultant Relationship Specialty Start Date End Date Maricarmen Galvan APRN PCP - General Family Medicine 05/10/18 [address] [place] [address] documented as of this encounter
--- OUTSIDE RECORDS SUMMARY | 2021-09-05 01:09 | XMS_ITS | Encounter Summary ---
:1950 Author Organization [facility] Address [facility] [place] [address] Care Team Providers Name Role Phone Maricarmen Galvan JORGE Primary Care Provider Encounter Details Date Type Department Care Team Description 03/10/2019 Telephone [place] [facility] Sugey Renoellis Coel [facility] [place] [address] Social History Tobacco Use Types Packs/Day Years Used Date Never Smoker Smokeless Tobacco: Never Used Alcohol Use Standard Drinks/Week Comments No 0 (1 standard drink = 0.6 oz pure alcoho l) Sex Assigned at Date Recorded Not on file documented as of this encounter Miscellaneous Notes Telephone Encounter - Fabiola Reno - 03/10/2019 3:14 PM EST Shereen Vega [id number] Diagnosis/Indication: cirrhosis, screen for varices 1. Have you ever had a/an Upper Endoscopy before? No 2. Do you take any Blood Thinners? No 3. Do you have a Pacemaker or Defibrillator device? No 4. Are you a diabetic? Yes: Controlled by diet or medication? Medication 5. Do you have any Allergies to Eggs, Latex or Medications? Yes: In Chart 6. Do you take any Oral Iron Supplements (Including multi-vitamins)? No 7. Do you have a history of three or more abdominal surgeries? No 8. Have you had a problem with sedation or anesthesia? No 9. Do you have a c-pap machine or oxygen tank? Neither 10. Do you take prescription narcotic pain medications? No 11. Say to patient: You must have a responsible alliance party who will drive you to your procedure, stay on campus for the entire duration of your procedure, and drive you home from your procedure? 12. Is there any other information you would like to give us to aid in scheduling? No BMI 23.28 Weight 119 lb 3.2 oz Height 5' Age:68 y.o. documented in this encounter Plan of Treatment Upcoming Encounters Date Type Specialty Care Team Description 09/11/2021 Appointment Radiology Tory Willard APRN [facility] GASTROENTEROLOGY [place], [place] [address] (Wo rk) 09/11/2021 Laboratory Appointment Lab 09/11/2021 Office Visit Gastroenterology Tory Willard APRN [facility] GASTROENTEROLOGY [place], [place] [address] (Wo rk) 09/11/2021 Office Visit Rheumatology Lorenzo Hermosillo PA [facility] RHEUMATOLOGY [place], [place] [address] (Wo rk) Scheduled Procedures Name Priority Associated Diagnoses Date/Time EGD, UPPER GI ENDOSCOPY Hepatic cirrhosis, unspe cified hepatic cirrhosis type, unspecified whet her ascites present documented as of this encounter Visit Diagnoses Not on filedocumented in this encounter Care Teams Automotive Parts Manager Relationship Specialty Start Date End Date Maricarmen Galvan APRN PCP - General Family Medicine 05/10/18 [address] [place] [address] documented as of this encounter
--- OUTSIDE RECORDS SUMMARY | 2021-09-05 01:09 | XMS_ITS | Encounter Summary ---
:1950 [place] [address] Care Team Providers Name Role Phone Cole Maricarmen Padilla HAND SALTER Primary Care Provider Encounter Details Date Type Department Care Team Description 01/06/2019 Ancillary Procedure Radiology Library at Jerardo Galvan, HAND SALTER [address] [place] [address] [address] [phone] (Wo rk) Social History Tobacco Use Types Packs/Day Years Used Date Never Smoker Smokeless Tobacco: Never Used Alcohol Use Standard Drinks/Week Comments No 0 (1 standard drink = 0.6 oz pure alcoho l) Sex Assigned at Date Recorded Not on file documented as of this encounter Plan of Treatment Upcoming Encounters Date Type Specialty Care Team Description 09/11/2021 Appointment Radiology Tory Willard APRN [facility] ER GASTROENTEROLOGY [place], [place] [address] (Wo rk) 09/11/2021 Laboratory Appointment Lab 09/11/2021 Office Visit Gastroenterology Tory Willard APRN [facility] ER GASTROENTEROLOGY [place], [place] [address] (Wo rk) 09/11/2021 Office Visit Rheumatology Lorenzo Hermosillo PA [facility] ER RHEUMATOLOGY [place], [place] [address] (Wo rk) Scheduled Procedures Name Priority Associated Diagnoses Date/Time EGD, UPPER GI ENDOSCOPY Hepatic cirrhosis, unspe cified hepatic cirrhosis type, unspecified whet her ascites present documented as of this encounter Procedures Procedure Name Priority Date/Time Associated Diagnosis Comme nts FILM LIBRARY Routine 01/06/2019 12:00 AM Results for this STORAGE ONLY CT EST procedure ar e in CHEST the results section. documented in this encounter Results Film Library- Storage Only CT Chest (01/06/2019 12:00 AM EST) Specimen (Source) Anatomical Location Collection Method / Collectio n Time Received Time / Laterality Volume Narrative GIO FONSECA - 01/13/2019 2:14 PM EST This exam is auto-finalizing. It's purpo se is for storage only. Maricarmen Galvan APRN IMLetty FILM LIBRARY ORDERABLES Performing Organization Address City/State/ZIP Code Phon e Number [place], [place] documented in this encounter Visit Diagnoses Not on filedocumented in this encounter Care Teams Watchstander Relationship Specialty Start Date End Date Maricarmen Galvan APRN PCP - General Family Medicine 05/10/18 [address] [place] [address] documented as of this encounter
--- OUTSIDE RECORDS SUMMARY | 2021-09-05 01:09 | XMS_ITS | Encounter Summary ---
:1950 Author Organization [facility] [place] [address] Care Team Providers Name Role Phone Maricarmen Galvan AIR EXPORT OPERATIONS AGENT Primary Care Provider Encounter Details Date Type Department Care Team Description 07/28/2019 Ancillary Procedure [facility]PORT OPERATIONS AGENT [facility] [address] [place] [address] GASTROENTEROLOGY [phone] [place], [place] [address] (Wo rk) Social History Tobacco [...] Appointment Radiology Tory Willard APRN [facility] ER GASTROENTEROLOGY [place], [place] [address] (Wo rk) 09/11/2021 Laboratory Appointment Lab 09/11/2021 Office Visit Gastroenterology Tory Willard APRN [facility] ER GASTROENTEROLOGY [place] [address] (Wo rk) 09/11/2021 Office Visit Rheumatology Lorenzo Hermosillo PA [facility] ER RHEUMATOLOGY [place], [place] [address] (Wo rk) Scheduled Procedures Name Priority Associated Diagnoses Date/Time EGD, UPPER GI ENDOSCOPY Hepatic cirrhosis, unspe cified hepatic cirrhosis type, unspecified whet her ascites present documented as of this encounter Procedures Procedure Name Priority Date/Time Associated Comments Diagnosis FILM LIBRARY STORAGE Routine 07/28/2019 12:22 PM Results for this ONLY ULTRASOUND EDT procedure ar piper in STUDY the results section. documented in this encounter Results Film Library- Storage Only Ultrasound Study (07/28/2019 12:22 PM EDT) Specimen (Source) Anatomical Location Collection Method / Collectio n Time Received Time / Laterality Volume Narrative GIO FONSECA - 07/28/2019 12:22 PM EDT This exam is auto-finalizing. It's purpo se is for storage only. Tory Willard APRN IMLetty FILM LIBRARY ORDERABLES Performing Organization Address City/State/ZIP Code Phon e Number [place], [place] documented in this encounter Visit Diagnoses Not on filedocumented in this encounter Care Teams Oyster Buyer Relationship Specialty Start Date End Date Maricarmen Galvan APRN PCP - General Family Medicine 05/10/18 [address] [place] [address] documented as of this encounter
--- OUTSIDE RECORDS SUMMARY | 2021-09-05 01:09 | XMS_ITS | Encounter Summary ---
:1950 Author Organization [facility] [place] [address] Care Team Providers Name Role Phone Maricarmen Galvan CHEMIST ORGANIC Primary Care Provider Encounter Details Date Type Department Care Team Description 07/06/2019 TH Visit Rheumatology at [facility] Manny Lugo Psoriatic arthritis (TeleHealth) [facility] [place] [address] [phone] RHEUMATOLOGY [place], [place] [address] Social History Tobacco Use Types Packs/Day Years Used Date Never Smoker Smokeless Tobacco: Never Used Alcohol Use Standard Drinks/Week Comments No 0 (1 standard drink = 0.6 oz pure alcoho l) Sex Assigned at Date Recorded Not on file documented as of this encounter Progress Notes Manny Lugo MD - 07/06/2019 11:00 AM EDT Rheumatology Outpatient Telephone Note Reason for Consult: Shereen Vega is a 69 y.o. female who we are seeing at the request of No ref. provider found for evaluation of psoriatic arthritis. HPI: Patient is a 68-year-old female with a PMH of osteoporosis, osteoarthritis (cervical spine disc& facet degenerative disease s/p C-spine surgery 2012), psoriatic arthritis, fibromyalgia, HTN, HLD, DM, GERD, hypothyroidism, vitamin D deficiency, hemorrhoids, and chronic thrombocytopenia. Rheum History: ?? 1) Psoriatic Arthritis - 08/2018 transferred care to [facility] form Dr. Wang -Dx??[place] [address] Burleson in [place] -Affected joints: hand, wrist, elbow, shoulder, knee, ankle, neck -Treatment: Enbrel (+MTX 5 mg weekly for part of the course; as per Dr Burleson notes given to Dr. Wang higher doses of MTC caused liver issues) [id number]. - Humira since 2011 (20 mg every other week), intermittently on prednisone with flare-ups -X-rays of hands, feet, and sacroiliac joints in 2012 should no erosions or other evidence of psoriatic arthritis; did show OA. Knee X-rays in 2015 showing early osteoarthritis. -Dr. Wang had been trying to get Xeljanz approved for patient given concern that Humira patient felt not working ?? 2) Osteoporosis -On calcium 600 mg once BID and Vitamin D3 2000 units daily -DEXA 2015 L spine T score -1.4, -1.9 in L spine in L1, z score 0.6 -DEXA 2012 L spine T score -1.5, z score 0.4 -Off Fosamax since 2010 Interval History: -Some psoriasis on elbows -On Humira, no injection site reactions -AM stiffness: 30 mins only, improves with activity -States that her knuckles were slightly swollen for last 2 weeks, improving with diclofenac gel. No associated warmth or redness. -L knee intermittently swollen with weight bearing -No chest pain, pleurisy, shortness of breath, cough -No fevers, no recent infections -Following with GI for cirrhosis with varices, suspected to be secondary from DILI, negative LEO/ A1AT/ Vizcaino/ TTG IgAb, planning for upper endoscopy ROS (positive in bold): General fevers, chills, night sweats, weight loss/gain HEENT oral ulcers, dry eyes, dry mouth, red/itchy eyes Card chest pain, palpitations Pulm SOB, cough, EVANS GI abd pain, nausea, vomiting, diarrhea, constipation, dysphagia, reflux dysuria, hematuria, genital ulcers, changes to color of urine MS arthritis, arthralgia, muscle aches Neuro weakness, numbness, tingling, REYNA Skin Raynaud's, rash, hair loss, photosensitivity, hair changes Psych depression, anxiety, difficulty sleeping Medical History: Past Medical History: Diagnosis Date [...] ??? OVARIAN CYST SURGERY right removed ??? TUBAL LIGATION Family Hx: Family History [...] Not on file Occupational History ??? 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 Financial resource strain: Not on file ??? Food insecurity Worry: Not on file Inability: Not on file ??? Transportation needs Medical: Not on file Non-medical: Not on file Tobacco Use ??? Smoking status: Never Smoker ??? Smokeless tobacco: Never Used Substance and Sexual Activity ??? Alcohol use: No ??? Drug use: No ??? Sexual activity: Not on file Comment: Deferred Lifestyle ??? Physical activity Days per week: Not on file Minutes per session: Not on file ??? Stress: Not on file Relationships ??? Social connections Talks on phone: Not on file Gets together: Not on file Attends christian service: Not on file Active member of club or organization: Not on file Attends meetings of clubs or organizations: Not on file Relationship status: Not on file ??? Intimate partner violence Fear of current or ex partner: Not on file Emotionally abused: Not on file Physically abused: Not on file Forced sexual activity: Not on file Other Topics Concern ??? Service Not Asked [...] Not Asked Social History Narrative Born in [place], grew up there and went to high school in [place], did not graduate, and her current , 43 years ago. And have three children. She stayed at home to raise her children. Medications: Current Outpatient Medications on File Prior to Visit Medication Sig Dispense Refill ??? fluticasone propion-salmeterol (ADVAIR) 100-50 mcg/dose Disk [...] by mouth 2 times daily (with meals). No current facility-administered medications on file prior to visit. Allergies: Allergies Allergen Reactions ??? Erythromycin Base Abdominal pain ??? Penicillins Hives ??? Plaquenil [Hydroxychloroquine] Reaction unknown ??? Quinine Thrombocytopenia ??? Sulfasalazine Patient not sure about reaction. Physical Examination: N/A Labs: Feb 2019 -Chronic thrombocytopenia, Plt 103 -Mild AST 32 -Negative hepatitis C and hepatitis B -Negative TTG IgA 09/14/18 -CBC with no anemia Hgb 14.1, Plt 119, ESR and CRP wnl. -CMP wnl. Cr 0.78 and eGFR 78. Total protein and calcium slightly above normal. -HIV neg. -Hep B and C panel neg. -Vit D wnl, but near lower end. -TB Quant Gold pending ?? 03/2018 -CBC WBC7.3, Hgb 13.1, Plt 116K -CMP Cr. 0.38, Ca 9.4, total protein 8.5. LFTs wnl -ESR 38, CRP 0.41 -25-OH vit D 60.9 ?? Labs from 2012 -HLA-B27 neg -SPEP normal ? Labs from 01/27/2018 CBC: WBC 7.46 (20% eos), Hgb 14.1, Plt 102 BMP: Cr. 0.75, eGFR > 60 HbA1C: 6.6 TSH 3.41 AST 19 ALT 23 ?? Studies: ?? 09/14/18 Neck X-ray FINDINGS: Post laminectomy C3-C5 with posterior fixation [...] C3 on C4. ?? 09/14/18 Hand Xray FINDINGS: BONES : Decreased bone mineralization. No [...] scaphoid trapezial trapezoid [STT] and 1 MCP & 1 IP joints)-osteophytes and joint space narrowing more [...] predicted CXR 2013: Normal 02/08 pharm stress test: normal ?? Assessment: Patient is a 68-year-old female with a PMH of osteoporosis, osteoarthritis (cervical spine disc & facet degenerative disease s/p C-spine surgery 2012), psoriatic arthritis, fibromyalgia, HTN, HLD, DM, GERD, hypothyroidism, vitamin D deficiency, hemorrhoids, and chronic thrombocytopenia. She restarted Humira in August 2018, and has since improved. She has no prolonged morning stiffness and no excessive fatigue. She does note some swelling around her knuckles since her last injection of Humira 2 weeks ago. I recommended a brief steroid taper, but she reports it is improving and she doesnot want any steroids. I would not classify this as secondary failure yet, as it is unclear if she is truly having a flare of psoriatic arthritis. ?? Recommendations: -Check labs: CBC, CMP, ESR, CRP, phosphorus, magnesium. Asked staff to send to [facility] as per patient request. -Ordered for Humira-CF, continue 40 mg subQ every 2 weeks -Continue topical diclofenac gel. Patient does not want prednisone. Advised topical ice therapy. -Continue Calcium 600 mg BID and Vit D3 2000 u daily for osteopenia. -Advised patient to please call rheumatology clinic if she has any worsening joint pain or swelling,and will discuss again the option of a prednisone taper at that time -Patient understands and agrees with plan -Follow-up in 3 months The patient was seen and discussed with Dr. Zaldivar Patient agreed to telephone visit. Total telephone time: 15 minutes Manny Lugo MD Rheumatology Fellow, PGY-4 CC: Maricarmen Galvan APRN Elida Zaldivar DO - 07/06/2019 11:00 AM EDT ATTENDING ADDENDUM The patient's history was reviewed, the patient with Dr. Lugo I agree with her summary, findings, and plan. documented in this encounter Plan of Treatment Upcoming Encounters Date Type Specialty Care Team Description 09/11/2021 Appointment Radiology Tory Willard APRN [facility] GASTROENTEROLOGY [place], [place] [address] (Juhi garner) 09/11/2021 Laboratory Appointment Lab 09/11/2021 Office Visit Gastroenterology Tory Willard APRN [facility] GASTROENTEROLOGY [place], [place] [address] (Juhi garner) 09/11/2021 Office Visit Rheumatology Lorenzo Hermosillo PA [facility] RHEUMATOLOGY [place], [place] [address] (Juhi garner) Scheduled Procedures Name Priority Associated Diagnoses Date/Time EGD, UPPER GI ENDOSCOPY Hepatic cirrhosis, unspe cified hepatic cirrhosis type, unspecified whet her ascites present documented as of this encounter Visit Diagnoses Diagnosis Psoriatic arthritis Psoriatic arthropathy documented in this encounter Care Teams Canoe Inspector Final Relationship Specialty Start Date End Date Maricarmen Galvan APRN PCP - General Family Medicine 05/10/18 [address] [place] [address] documented as of this encounter
--- OUTSIDE RECORDS SUMMARY | 2021-09-05 01:09 | XMS_ITS | Encounter Summary ---
:1950 Author Organization [facility] [place] [address] Care Team Providers Name Role Phone Jeanna Smith JORGE Primary Care Provider Encounter Details Date Type Department Care Team Description 03/17/2012 Abstract Spine Center at [facility] Katina Patricia [place] [address] Social History Tobacco Use Types Packs/Day [...] Radiology Tory Willard APRN [facility] GASTROENTEROLOGY [place], [place] [address] (Wo rk) 09/11/2021 Laboratory Appointment Lab 09/11/2021 Office Visit Gastroenterology Tory Willard APRN [facility] GASTROENTEROLOGY [place], [place] [address] (Wo rk) 09/11/2021 Office Visit Rheumatology Lorenzo Hermosillo PA [facility] RHEUMATOLOGY [place], [place] [address] (Wo rk) Scheduled Procedures Name Priority Associated Diagnoses Date/Time EGD, UPPER GI ENDOSCOPY Hepatic cirrhosis, unspe cified hepatic cirrhosis type, unspecified whet her ascites present documented as of this encounter Visit Diagnoses Not on filedocumented in this encounter Care Teams Vice President Regulatory Relationship Specialty Start Date End Date Jeanna Smith APRN PCP - General 12/16/11 05/09/18 [address] [place] [address] documented as of this encounter
--- OUTSIDE RECORDS SUMMARY | 2021-09-05 01:09 | XMS_ITS | Encounter Summary ---
:1950 Author Organization [facility] [place] [address] Care Team Providers Name Role Phone Jeanna Smith JORGE Primary Care Provider Encounter Details Date Type Department Care Team Description 03/04/2012 Abstract Spine Center at [facility] [place] [address] Social History Tobacco Use Types Packs/Day Years Used Date Never Smoker Smokeless Tobacco: Never Used Alcohol Use Standard Drinks/Week Comments No 0 (1 standard drink = 0.6 oz pure alcoho l) Sex Assigned at Date Recorded Not on file documented as of this encounter Plan of Treatment Upcoming Encounters Date Type Specialty Care Team Description 09/11/2021 Appointment Radiology Tory Willard APRN [facility] GASTROENTEROLOGY [place], [place] [address] (Wo rk) 09/11/2021 Laboratory Appointment Lab 09/11/2021 Office Visit Gastroenterology Tory Willard APRN [facility] GASTROENTEROLOGY [place], [place] [address] (Wo rk) 09/11/2021 Office Visit Rheumatology Lorenzo Hermosillo PA [facility] RHEUMATOLOGY [place], [place] [address] (Wo rk) Scheduled Procedures Name Priority Associated Diagnoses Date/Time EGD, UPPER GI ENDOSCOPY Hepatic cirrhosis, unspe cified hepatic cirrhosis type, unspecified whet her ascites present documented as of this encounter Visit Diagnoses Not on filedocumented in this encounter Care Teams Egg Processing Supervisor Relationship Specialty Start Date End Date Jeanna Smith APRN PCP - General 12/16/11 05/09/18 [address] [place] [address] documented as of this encounter
--- OUTSIDE RECORDS SUMMARY | 2021-09-05 01:09 | XMS_ITS | Encounter Summary ---
:1950 Author Organization [facility] [place] [address] Care Team Providers Name Role Phone Maricarmen Galvan REPRODUCTION TECHNICIAN Primary Care Provider Encounter Details Date Type Department Care Team Description 09/27/2018 Orders Only Rheumatology at [facility] Manny Lugo, Psoriatic arthritis [place] [address] RHEUMATOLOGY DEP [place], [place] [address] (Wo rk) Social History Tobacco Use Types Packs/Day Years Used Date Never Smoker Smokeless Tobacco: Never Used Alcohol Use Standard Drinks/Week Comments No 0 (1 standard drink = 0.6 oz pure alcoho l) Sex Assigned at Date Recorded Not on file documented as of this encounter Progress Notes Manny Lugo MD - 09/27/2018 1:01 PM EDT Humira-CF too costly for patient. Have ordered Humira. She has used this medication in the past, so does not need teaching. Patient has labs ordered in 4 weeks, and follow-up appt in November. -Dr. Lugo documented in this encounter Plan of Treatment Upcoming Encounters Date Type Specialty Care Team Description 09/11/2021 Appointment Radiology Tory Willard APRN [facility] ER GASTROENTERTYRONE [place], [place] [address] (Wo rk) 09/11/2021 Laboratory Appointment Lab 09/11/2021 Office Visit Gastroenterology Tory Willard APRN [facility] ER GASTROENTEROLOGY [place], [place] [address] (Wo rk) 09/11/2021 Office Visit Rheumatology Lorenzo Hermosillo PA [facility] ER RHEUMATOLOGY [place], [place] [address] (Wo rk) Scheduled Procedures Name Priority Associated Diagnoses Date/Time EGD, UPPER GI ENDOSCOPY Hepatic cirrhosis, unspe cified hepatic cirrhosis type, unspecified whet her ascites present documented as of this encounter Visit Diagnoses Diagnosis Psoriatic arthritis Psoriatic arthropathy documented in this encounter Care Teams Prosthodontist Relationship Specialty Start Date End Date Maricarmen Galvan APRN PCP - General Family Medicine 05/10/18 [address] [place] [address] documented as of this encounter
--- OUTSIDE RECORDS SUMMARY | 2021-09-05 01:09 | XMS_ITS | Encounter Summary ---
:1950 Author Organization [facility] [place] [address] Care Team Providers Name Role Phone Maricarmen Galvan MEAT SCRUBBER Primary Care Provider Encounter Details Date Type Department Care Team Description 12/26/2019 Notes Only Care Management [place] [address] Social History Tobacco Use Types Packs/Day Years Used Date Never Smoker Smokeless Tobacco: Never Used Alcohol Use Standard Drinks/Week Comments No 0 (1 standard drink = 0.6 oz pure alcoho l) Sex Assigned at Date Recorded Not on file documented as of this encounter Progress Notes Kaleb Puga - 12/26/2019 3:31 PM EST I sent the application for assistance with Humira to Manny Lugo for their signature and prescription. I will follow through with the remainder of the application once everything is returned to me. documented in this encounter Plan of Treatment Upcoming Encounters Date Type Specialty Care Team Description 09/11/2021 Appointment Radiology Tory Willard APRN [facility] GASTROENTEROLOGY [place], [place] [address] (Wo rk) 09/11/2021 Laboratory Appointment Lab 09/11/2021 Office Visit Gastroenterology Tory Willard APRN [facility] GASTROENTEROLOGY [place], [place] [address] (Wo rk) 09/11/2021 Office Visit Rheumatology Lorenzo Hermosillo PA [facility] [address] [place], [place] [address] (Wo rk) Scheduled Procedures Name Priority Associated Diagnoses Date/Time EGD, UPPER GI ENDOSCOPY Hepatic cirrhosis, unspe cified hepatic cirrhosis type, unspecified whet her ascites present documented as of this encounter Visit Diagnoses Not on filedocumented in this encounter Care Teams Shrimp Trawler Captain Relationship Specialty Start Date End Date Maricarmen Galvan, MEAT SCRUBBER PCP - General Family Medicine 05/10/18 [address] [place] [address] documented as of this encounter
--- OUTSIDE RECORDS SUMMARY | 2021-09-05 01:09 | XMS_ITS | Encounter Summary ---
:1950 [place] [address] Care Team Providers Name Role Phone Jeanna Smith JORGE Primary Care Provider Encounter Details Date Type Department Care Team Description 01/20/2016 Ancillary Procedure Radiology Library at Jerardo Galvan APRN [address] [place] [address] [address] [phone] (Wo rk) Social History Tobacco Use Types [...] APRN [facility] ER GASTROENTEROLOGY [place], [place] [address] (Wo rk) 09/11/2021 Laboratory Appointment Lab 09/11/2021 Office Visit Gastroenterology Tory Willard APRN [facility] ER GASTROENTEROLOGY [place], [place] [address] (Wo rk) 09/11/2021 Office Visit Rheumatology Lorenzo Hermosillo PA [facility] ER RHEUMATOLOGY [place], [place] [address] (Wo rk) Scheduled Procedures Name Priority Associated Diagnoses Date/Time EGD, UPPER GI ENDOSCOPY Hepatic cirrhosis, unspe cified hepatic cirrhosis type, unspecified whet her ascites present documented as of this encounter Procedures Procedure Name Priority Date/Time Associated Diagnosis Comme nts FILM LIBRARY Routine 01/20/2016 12:00 AM Results for this STORAGE ONLY CT EST procedure ar e in CHEST the results section. documented in this encounter Results Film Library- Storage Only CT Chest (01/20/2016 12:00 AM EST) Specimen (Source) Anatomical Location Collection Method / Collectio n Time Received Time / Laterality Volume Narrative GIO FONSECA - 01/13/2019 2:12 PM EST This exam is auto-finalizing. It's purpo se is for storage only. Maricarmen Galvan APRN IMLetty FILM LIBRARY ORDERABLES Performing Organization Address City/State/ZIP Code Phon e Number [facility] [place], [place] documented in this encounter Visit Diagnoses Not on filedocumented in this encounter Care Teams Unix Administrator Relationship Specialty Start Date End Date Jeanna Smith APRN PCP - General 12/16/11 05/09/18 [address] [place] [address] documented as of this encounter
--- OUTSIDE RECORDS SUMMARY | 2021-09-05 01:09 | XMS_ITS | Encounter Summary ---
:1950 Author Organization [facility] [address] Care Team Providers Name Role Phone Maricarmen Galvan APRN Primary Care Provider Reason for Visit Consultation (Routine) - Specialty Diagnoses / Procedures Referred By Contact Refer red To Contact Cardiology Diagnoses CHEST PAIN Maricarmen Galvan APRN Ahmed, Bina, MD [address] [facility] [place] [address] [place] [address] Fax: Referral ID Status Reason Start Date Expiration Date Visits V isits Requested Authorized [id number] Consult, 05/10/2018 05/10/2019 6 [facility] Encounter Details Date Type Department Care Team Description 07/29/2018 Office Visit Cardiology at [facility] Khadra Bronson MD Hyperlipidemia, unspecified hyperlipidem ia type; [facility] Hypertens ion, unspecified type; [facility] Chest pain, unspecified type [place] [id number] [phone] [phone] Social History Tobacco Use Types Packs/Day Years Used Date Never Smoker Smokeless Tobacco: Never Used Alcohol Use Standard Drinks/Week Comments No 0 (1 standard drink = 0.6 oz pure alcoho l) Sex Assigned at Date Recorded Not on file documented as of this encounter Last Filed Vital Signs Vital Sign Reading Time Taken Comments Blood Pressure 114/67 07/29/2018 1:45 PM EDT Pulse 107 07/29/2018 1:45 PM EDT Temperature - - Respiratory Rate - - Oxygen Saturation 95% 07/29/2018 1:45 PM EDT Inhaled Oxygen Concentration - - Weight 52.6 kg (116 lb) 07/29/2018 1:45 PM EDT Height 154.9 cm (5' 1) 07/29/2018 1:45 PM EDT Body Mass Index 21.92 07/29/2018 1:45 PM EDT documented in this encounter Progress Notes Khadra Bronson MD - 07/29/2018 1:40 PM EDT Images from the original note were not included. Reason for Consultation: Chest Pain Referring Provider: Maricarmen Galvan APRN [address] [place] [address] ?? HPI: Shereen Vega is a 68 y.o. female with multiple medical problems who present for symptomsof atypical chest pain. Shereen is a type II diabetic who also has significant rheumatoid arthritis. She is fairly impaired due to balance issues but is able to ambulate and lives independently. She remains active without limitation as long as she is doing things slowly. She has had recurrent atypical chest pain for many years and in 2009 underwent cardiac catheterization. This showed moderate branch vessel disease which was recommended that it be managed medically. More recently she underwent a nuclear stress test which was normal with preserved LV function. Due to her persistent symptoms, she isreferred for further evaluation. With respect to her symptoms she describes sharp chest pain across the left side of her chest which can come on randomly. She says she could climb 1-2 flights of stairs however would be short of breathwithout necessarily having chest pain. She denies any other associated symptoms. ?? Past Medical History: 1: Atypical Amnestic Epiliepsy 2: Type 2 DM 3: Dyslipidemia 4: HTN 5: Rheumatoid Arthritis 6: Hypothyroidism Past Surgical History: Past Surgical History: Procedure Laterality Date ??? APPENDECTOMY ??? OVARIAN CYST SURGERY right removed ??? TUBAL LIGATION Social History: Lives with her . Does not smoke or drink. Social History Social History Narrative Born in [place], grew up there and went to high school in [place], did not graduate, and her current , 43 years ago. And have three children. She stayed at home to raise her children. Family History: Negative for premature CVD or SCD ALLERGIES: Allergies Allergen Reactions ??? Erythromycin Base Abdominal pain ??? Penicillins Hives ??? Quinine Thrombocytopenia ?? MEDICATIONS: ?? Current Outpatient Medications: ??? UNABLE TO FIND, Take 2.5 mg by mouth once a week. Taking 5 mg of Methotrexin., Disp: , Rfl: ??? levothyroxine (SYNTHROID) 75 mcg tablet, Take 75 mcg by mouth daily., Disp: , Rfl: ??? TRAMADOL HCL (TRAMADOL ORAL), Take 50 mg by mouth every morning. Takes at bedtime if needed. , Disp: , Rfl: ??? PARoxetine (PAXIL) 40 mg tablet, Take 40 mg by mouth every morning., Disp: , Rfl: ??? atenolol (TENORMIN) 25 mg tablet, Take 25 mg by mouth daily., Disp: , Rfl: ??? ADALIMUMAB (HUMIRA PEN SUBQ), Inject 40 mg subcutaneously every 14 days., Disp: , Rfl: ??? gabapentin (NEURONTIN) 300 mg capsule, Take 300 mg by mouth 2 times daily. Takes 300 mg in the AM and 600 mg in the PM., Disp: , Rfl: ??? leveTIRAcetam (KEPPRA) 500 mg tablet, Take 250 mg by mouth 2 times daily., Disp: , Rfl: ??? celecoxib (CELEBREX) 100 mg capsule, Take 100 mg by mouth 2 times daily., Disp: , Rfl: ??? aspirin 81 mg EC tablet, Take 81 mg by mouth daily., Disp: , Rfl: ??? lovastatin (MEVACOR) 40 mg tablet, Take 40 mg by mouth every morning., Disp: , Rfl: ??? metFORMIN (GLUCOPHAGE) 500 mg tablet, Take 1,000 mg by mouth 2 times daily (with meals)., Disp: , Rfl: ?? ROS: CONSTITUTIONAL: No weight loss, fever, chills, ++weakness /fatigue. ?? HEENT: Eyes: No visual loss, blurred vision, double vision or scleral iscterus. No sinus tenderness or palpable thyromegaly. SKIN: No rashes. ?? CARDIOVASCULAR: ++ atypical chest pain. No palpitations No edema. No orthopnea or PND. No syncope RESPIRATORY:++ shortness of breath, ++ cough no sputum. No hemoptysis GASTROINTESTINAL: No anorexia, nausea, vomiting or diarrhea. No abdominal pain. No BRBPR or melena ?? GENITOURINARY: No hematuria or dysuria NEUROLOGICAL: No headache, dizziness, syncope, paralysis, ataxia, numbness or tingling in the extremities. No change in bowel or bladder control. ?? MUSCULOSKELETAL: ++diffuse muscle and joint pains. ?? HEMATOLOGIC: No anemia, bleeding or bruising. ?? LYMPHATICS: No enlarged nodes. No history of splenectomy. ?? PSYCHIATRIC: No history of depression or anxiety. ?? ENDOCRINOLOGIC: No reports of sweating, cold or heat intolerance. No polyuria or polydipsia. ?? ALLERGIES: No history of asthma, hives, eczema or rhinitis. . PHYSICAL EXAM: Vitals Office Visit from 07/29/2018 in Cardiology at [place] Weight 52.6 kg (116 lb) Height 154.9 cm (5' 1) BSA (Calculated - sq m) 1.5 sq meters BMI (Calculated) 21.92 Heart Rate 107 (Abnormal) BP 114/67 SpO2 95 % Constitutional: In general, alert and oriented X 3 Eyes: No scleral icterus or pale conjunctiva; no corneal arcus Ears, Nose, mouth, throat: No sinus tenderness; moist oral mucosa; no epistaxis; no visible thyromegaly Respiratory: Clear to auscultation bilaterally with good air entry bilaterally GI: No abdominal pain; + bowel sounds; no rigidity or guarding Cardiovascular: The heart rate is regular. S1 and S2 are normal and unobscured. There are no audiblemurmurs. Carotid upstroke is normal with no audible carotid bruits MSK: No joint deformity; No evidence of tendon xanthomas Skin: No visible rashes or bruises Neuro: Non-focal. Moves all extremities without limitation. CN nerves not examined. Psych: Mood appropriate Extremity: RLE:No LE edema LLE: No LE edema RUE: 2+ radial pulse LUE: 2+ radial pulse ?? DIAGNOSTIC TESTS: ?? 1: Stress test (02/08) 2: ECG (today): Sinus rhythm with NL axis; NL intervals; No ST changes A/P: Shereen Vega is a 68 y.o. female presents for consultation regarding atypical chest painwith normal stress test 1: Atypical chest pain: I had a detailed discussion with Shereen and her in clinic today, Her symptoms are atypical and the stress test was normal. I offered her the option of undergoing repeat coronary angiography however I think we should reserve this if her symptoms progress to more exertio nal symptoms. She is on a decent medical regimen which she should continue. ?? Recommendations: 1: Monitor symptoms.No additional testing at this time. 2: F/U with PCP Khadra Bronson MD [facility] Interventional Cardiology Pager [phone] documented in this encounter Plan of Treatment Upcoming Encounters Date Type Specialty Care Team Description 09/11/2021 Appointment Radiology Tory Willard, JORGE [facility] GASTROENTEROLOGY [place], [place] [address] (Wo rk) 09/11/2021 Laboratory Appointment Lab 09/11/2021 Office Visit Gastroenterology Tory Willard APRN [facility] GASTROENTEROLOGY [place], [place] [address] (Wo rk) 09/11/2021 Office Visit Rheumatology Lorenzo Hermoslilo PA [facility] RHEUMATOLOGY [place], [place] [address] (Wo rk) Scheduled Procedures Name Priority Associated Diagnoses Date/Time EGD, UPPER GI ENDOSCOPY Hepatic cirrhosis, unspe cified hepatic cirrhosis type, unspecified whet her ascites present documented as of this encounter Procedures Procedure Name Priority Date/Time Associated Diagnosis Comme nts EKG 12-LEAD Routine 07/29/2018 1:55 PM Hyperlipidemia, Result s for this EDT unspecified procedure are i n hyperlipidemia t ype the results Hypertension, section. unspecified type Chest pain, unspecified type documented in this encounter Results EKG 12 Lead (07/29/2018 1:55 PM EDT) [facility] Method Time Signature Ventricular rate 97 BPM MUSE SYSTEM Atrial Rate 97 BPM MUSE SYSTEM P-R Interval 148 ms MUSE SYSTEM QRS Duration 82 ms MUSE SYSTEM Q-T Interval 352 ms MUSE SYSTEM QTC Calculated 447 ms MUSE SYSTEM (Bezet) Calculated P [place] 18 degrees MUSE SYSTEM Calculated R [place] -29 degrees MUSE SYSTEM Calculated T [place] 33 degrees MUSE SYSTEM INTERPRETATION Normal sinus rhythm MUSE SYSTEM Moderate voltage criteria for LVH, may be normal variant Borderline ECG No previous ECGs available Confirmed by MD Audie, Khadra ([id number]) on 07/29/2018 2:40:34 PM Specimen Anatomical Collection Method Collection Time Receive d Time (Source) Location / / Volume Laterality 07/29/2018 1:55 PM 9 2:40 EDT PM EDT Khadra Bronson MD ECG ORDERABLES Performing Organization Address City/State/ZIP Code Phon e Number MUSE SYSTEM documented in this encounter Visit Diagnoses Diagnosis Hyperlipidemia, unspecified hyperlipidem ia type Hypertension, unspecified type Chest pain, unspecified type documented in this encounter Care Teams Quality Assistant Relationship Specialty Start Date End Date Maricarmen Galvan, RN FIELD CASE MANAGER PCP - General Family Medicine 05/10/18 [address] [place] [address] documented as of this encounter
--- OUTSIDE RECORDS SUMMARY | 2021-09-05 01:09 | XMS_ITS | Encounter Summary ---
:1950 [place] [address] Care Team Providers Name Role Phone Maricarmen Galvan OUTBOUND TELEMARKETER Primary Care Provider Reason for Visit Reason Comments Specialty Pharmacy Review Encounter Details Date Type Department Care Team Description 08/01/2019 Specialty Pharmacy Pharmacy at [facility] [place] [address] Social History Tobacco Use Types Packs/Day Years Used Date Never Smoker Smokeless Tobacco: Never Used Alcohol Use Standard Drinks/Week Comments No 0 (1 standard drink = 0.6 oz pure alcoho l) Sex Assigned at Date Recorded Not on file documented as of this encounter Plan of Treatment Upcoming Encounters Date Type Specialty Care Team Description 09/11/2021 Appointment Radiology Tory Willard APRN [facility] GASTROENTEROLOGY [place], [place] [address] (Wo rk) 09/11/2021 Laboratory Appointment Lab 09/11/2021 Office Visit Gastroenterology Tory Willard APRN [facility] GASTROENTEROLOGY [place], [place] [address] (Wo rk) 09/11/2021 Office Visit Rheumatology Lorenzo Hermosillo PA [facility] RHEUMATOLOGY [place], [place] [address] (Wo rk) Scheduled Procedures Name Priority Associated Diagnoses Date/Time EGD, UPPER GI ENDOSCOPY Hepatic cirrhosis, unspe cified hepatic cirrhosis type, unspecified whet her ascites present documented as of this encounter Visit Diagnoses Not on filedocumented in this encounter Care Teams Lacing Presser Relationship Specialty Start Date End Date Maricarmen Galvan, JORGE PCP - General Family Medicine 05/10/18 [address] [place] [address] documented as of this encounter
--- OUTSIDE RECORDS SUMMARY | 2021-09-05 01:09 | XMS_ITS | Encounter Summary ---
:1950 Author Organization [facility] [place] [address] Care Team Providers Name Role Phone Maricarmen Galvan JORGE Primary Care Provider Encounter Details Date Type Department Care Team Description 09/23/2018 Telephone Rheumatology at [facility] Fabiola Parry [facility] [place] [address] Social History Tobacco Use Types Packs/Day Years Used Date Never Smoker Smokeless Tobacco: Never Used Alcohol Use Standard Drinks/Week Comments No 0 (1 standard drink = 0.6 oz pure alcoho l) Sex Assigned at Date Recorded Not on file documented as of this encounter Miscellaneous Notes Telephone Encounter - Fabiola Parry - 09/23/2018 8:55 AM EDT Petty calling to verify order for patient. Please call her today. She has tried several times to connect with medical staff services coordinator. Her phone [phone] documented in this encounter Plan of Treatment Upcoming Encounters Date Type Specialty Care Team Description 09/11/2021 Appointment Radiology Tory Willard APRN [facility] GASTROENTEROLOGY [place], [place] [address] (Wo pascual) 09/11/2021 Laboratory Appointment Lab 09/11/2021 Office Visit Gastroenterology Tory Willard APRN [facility] GASTROENTEROLOGY [place], [place] [address] (Juhi garner) 09/11/2021 Office Visit Rheumatology Lorenzo Hermosillo PA [facility] [address] [place], [place] [address] (Wo rk) Scheduled Procedures Name Priority Associated Diagnoses Date/Time EGD, UPPER GI ENDOSCOPY Hepatic cirrhosis, unspe cified hepatic cirrhosis type, unspecified whet her ascites present documented as of this encounter Visit Diagnoses Not on filedocumented in this encounter Care Teams Lumber Grader Relationship Specialty Start Date End Date Maricarmen Galvan APRN PCP - General Family Medicine 05/10/18 [address] [place] [address] documented as of this encounter
--- OUTSIDE RECORDS SUMMARY | 2021-09-05 01:09 | XMS_ITS | Encounter Summary ---
:1950 Author Organization [facility] [place] [address] Care Team Providers Name Role Phone Maricarmen Galvan [employer] PROF[employer] Primary Care Provider Reason for Visit Consultation (Routine) - Closed Specialty Diagnoses / Procedures Referred By Contact Refer red To Contact Rheumatology Diagnoses Psoriatic arthritis Sarah Wang MD [facility] [address] [place] [address] [place] [address] [place] [address] [place] [address] Referral ID Status Reason Start Date Expiration Date Visits Requ ested Visits Authorized [id number] Closed 05/11/2018 05/11/2019 1 1 Encounter Details Date Type Department Care Team Description 09/14/2018 Office Visit Rhe[facility]ology [place] [facility] Dio Jensen MD [facility] [address] R[place]AT[place] [address] Psoriatic arthritis [facility] Manny Lugo MD [facility] [address] R[place]UMATOLOG[place] [address] [place] [address] Social History Tobacco Use Types Packs/Day Years Used Date Never Smoker Smokeless Tobacco: Never Used Alcohol Use Standard Drinks/Week Comments No 0 (1 standard drink = 0.6 oz pure alcoho l) Sex Assigned at Date Recorded Not on file documented as of this encounter Last Filed Vital Signs Vital Sign Reading Time Taken Comments Blood Pressure 109/64 09/14/2018 1:14 PM EDT Pulse 100 09/14/2018 1:14 PM EDT Temperature 36.5 ??C (97.7 ??F) 09/14/2018 1:14 PM EDT Respiratory Rate 16 09/14/2018 1:14 PM EDT Oxygen Saturation 98% 09/14/2018 1:14 PM EDT Inhaled Oxygen Concentration - - Weight 52.6 kg (116 lb) 09/14/2018 1:14 PM EDT Height 154.9 cm (5' 1) 09/14/2018 1:14 PM EDT Body Mass Index 21.92 09/14/2018 1:14 PM EDT documented in this encounter Patient Instructions Patient InstructionsManny Lugo MD - 09/14/2018 1:00 PM EDT Please complete labwork and X-rays today. Complete labs on day of your next visit (prior to coming to rheum appt if possible). documented in this encounter Progress Notes Manny Lugo MD - 09/14/2018 1:00 PM EDT Rheumatology Outpatient Consultation Note Reason for Consult: Shereen Vega is a 68 y.o. female who we are seeing at the request of Sarah Wang for establishing care for RA. HPI: Patient is a 68-year-old female with a PMH of osteoporosis, osteoarthritis (cervical spine disc& facet degenerative disease s/p C-spine surgery 2012), psoriatic arthritis, fibromyalgia, HTN, HLD, DM, GERD, hypothyroidism, vitamin D deficiency, hemorrhoids, and chronic thrombocytopenia. She presents today to establish care at [facility]. Of note, much of history obtained below is fromnotes kindly provided by Dr. Wang. Today, he reports having pain all over, particularly her knees, given that she ran out of MTX for the last two months. She noticed puffy knuckles). Morning stiffness was previously ~ 30 mins with Humira, but now much longer. She has been taking Tylenol 1-3/d asneeded with some improvement. She has also been experiencing generalized weakness and fatigue. No Recent infections, recent travel, sick contacts. -Bone density scan due this year. Patient unsure if done and so will check at [facility] for repeat DEXA after 2016. -Will make sure patient on vit D supplementation. -She also needs hep B vaccination, while on immunosuppression. Will discuss and administer at next visit. Psoriatic arthritis -[place] [address] Burleson in [facility] -Affected joints: hand, wrist, elbow, shoulder, knee, ankle, neck -Treatment: Enbrel (+MTX 5 mg weekly for part of the course; as per Dr Burleson notes given to Dr. Rodriguez higher doses of MTC caused liver issues) [id number]. Humira since 2011 (20 mg every other week), intermittently on prednisone with flare-ups -X-rays of hands, feet, and sacroiliac joints in 2012 should no erosions or other evidence of psoriatic arthritis; did show OA. Knee X-rays in 2016 showing early osteoarthritis. -Dr. Wang had been trying to get Xeljanz approved for patient given concern that Humira patient felt not working Osteoporosis -On calcium 600 mg once BID and Vitamin D3 2000 units daily -DEXA 2016 L spine T score -1.4, -1.9 in L spine in L1, z score 0.6 -DEXA 2012 L spine T score -1.5, z score 0.4 -Off Fosamax since 2010 ROS (positive in bold): General fevers, chills, night sweats, weight loss/gain, +generalized fatigue HEENT oral ulcers, dry eyes, dry mouth, red/itchy eyes Card chest pain, palpitations Pulm SOB, cough, EVANS GI abd pain, nausea, vomiting, diarrhea, constipation, dysphagia, reflux dysuria, hematuria, genital ulcers, changes to color of urine MS + arthritis, + arthralgia, muscle aches Neuro weakness, numbness, tingling, [...] Not on file Occupational History ??? 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 Financial resource strain: Not on file ??? Food insecurity: Worry: Not on file Inability: Not on file ??? Transportation needs: Medical: Not on file Non-medical: Not on file Tobacco Use ??? Smoking status: Never Smoker ??? Smokeless tobacco: Never Used Substance and Sexual Activity ??? Alcohol use: No ??? Drug use: No ??? Sexual activity: Not on file Comment: Deferred Lifestyle ??? Physical activity: Days per week: Not on file Minutes per session: Not on file ??? Stress: Not on file Relationships ??? Social connections: Talks on phone: Not on file Gets together: Not on file Attends baptism service: Not on file Active member of club or organization: Not on file Attends meetings of clubs or organizations: Not on file Relationship status: Not on file ??? Intimate partner violence: Fear of current or ex partner: Not [...] Not Asked Social History Narrative Born in [place], grew up there and went to high school in [place], did not graduate, and her current , 43 years ago. And have three children. She stayed at home to raise her children. Medications: Current Outpatient Medications on File Prior to Visit Medication Sig Dispense Refill ??? lansoprazole (PREVACID) 30 mg Capsule, Delayed [...] not sure about reaction. Physical Examination: BP 109/64 Pulse 100 Temp 36.5 ??C (97.7 ??F) Resp 16 Ht 154.9 cm (5' 1) Wt 52.6 kg (116 lb) SpO2 98% BMI 21.92 kg/m?? General: Thin elderly female sitting in chair in NAD HEENT: Mucous membranes are moist, no oral mucosal ulcerations. Neck: Supple, no lymphadenopathy, full range of motion Cardiovascular: RRR, no m/r/g, normal S1/S2, 2+ radial pulses Lungs: CTA b/l no w/r/r Abdomen: Soft, nontender, nondistended, normal active bowel sounds, no hepatosplenomegaly Back: Nontender over the spine, + kyphosis, limited ROM of cervical spine (cannot touch chin to chest) Neuro: Alert and oriented x3. Cranial nerves II through XII grossly intact. Strength 5/5 throughout,Sensation to light touch is grossly normal throughout. Skin: no rashes or lesions noted Nails: no nail pitting Extremities: Shoulders: FROM, non-tender to palpation Elbows:FROM Wrists: FROM, + swelling and warmth, non-tender Hands: No synovitis, no MCP compression tenderness, full claw and fist. + Ulnar deviation Hips: FROM, no tenderness Knees: FROM, + effusion and warm, no tenderness Ankles: FROM, non-tender, no effusion Feet: no MTP compression tenderness Laboratory Data: 09/14/18 -CBC with no anemia Hgb 14.1, Plt 119, ESR and CRP wnl. -CMP wnl. Cr 0.78 and eGFR 78. Total protein and calcium slightly above normal. -HIV neg. -Hep B and C panel neg. -Vit D wnl, but near lower end. -TB Quant Gold pending 03/2018 -CBC WBC7.3, Hgb 13.1, Plt 116K -CMP Cr. 0.38, Ca 9.4, total protein 8.5. LFTs wnl -ESR 38, CRP 0.41 -25-OH vit D 60.9 Labs from 2012 -HLA-B27 neg -SPEP normal Labs from 01/27/2018 CBC: WBC 7.46 (20% eos), Hgb 14.1, Plt 102 BMP: Cr. 0.75, eGFR > 60 HbA1C: 6.6 TSH 3.41 AST 19 ALT 23 Studies: 09/14/18 Neck X-ray FINDINGS: Post laminectomy C3-C5 with posterior fixation brackets. Hardware intact. No complication. Severe lower cervical spine degenerative disc disease and arthropathy. Increased anterior angulation of the cervical spine. Approximate 2 mm anterolisthesis C3 on C4. Impression Post laminectomy C3-C5 with posterior fixation brackets. Hardware intact. No complication. Severe lower cervical spine degenerative disc disease and arthropathy. Increased anterior angulation of the cervical spine. Approximate 2 mm anterolisthesis C3 on C4. 09/14/18 Hand Xray FINDINGS: BONES : Decreased [...] - osteoarthropathy more prominent on the left. Impression 1. ??No ankylosis or periostitis 2. ??Solitary marginal radiolucency at right 2 DIP joint likely represents degenerative cyst rather than erosions. 3. ??Osteoarthropathy at multiple sites Echo 2013: EF 60%, moderate aortic insufficiency, mild mitral insufficiency, mild TR, mild pulmonic insufficiency, normal PAPs PFTs 2013: DLCO 72% of predicted CXR 2013: Normal 02/08 pharm stress test: normal Assessment: Patient is a 68-year-old female with a PMH of osteoporosis, osteoarthritis (cervical spine disc & facet degenerative disease s/p C-spine surgery 2012), psoriatic arthritis, fibromyalgia, HTN, HLD, DM, GERD, hypothyroidism, vitamin D deficiency, hemorrhoids, and chronic thrombocytopenia who presents to establish care and restart Humira. Recommendations: -Prescribing citrate free Humira at same dose as pt was previously on (40 mg subQ every other day). Side effects of Humira told to patient and he understands (I.e infections, REYNA, nausea, ISR, cytopenia). -Follow-ut clinic in about 4-6 weeks. Will monitor treatment response with RAPID score and Patient Global Assessment Score -Need baseline TB, HBV, CBC, CMP collected. Patient needs hepatitis B vaccine. -Will monitor labs ESR, CRP, CBC, and CMP every 4 weeks for first 3 months. Then can check every 3 months. -Continue Calcium 600 mg BID and Vit D3 2000 u daily for osteopenia. The patient was seen and discussed with Dr. Mikey Lugo MD Rheumatology Fellow, PGY-4 CC: Maricarmen Galvan APRN Dio Jensen MD - 09/14/2018 1:00 PM EDT ATTENDING ADDENDUM The patient's history was reviewed, and I interviewed and examined the patient with Dr. Lugo. I agree with her summary, findings, and plan. Dio Jensen MD Staff Nitrocellulose Maker documented in this encounter Plan of Treatment Upcoming Encounters Date Type Specialty Care Team Description 09/11/2021 Appointment Radiology Tory Willard APRN [facility] [place] [address] (Juhi garner) 09/11/2021 Laboratory Appointment Lab 09/11/2021 Office Visit Gastroenterology Tory Willard APRN [facility] GASTROENTEROLOGY [place], [place] [address] (Juhi garner) 09/11/2021 Office Visit Rheumatology Lorenzo Hermosillo PA [facility] RHEUMATOLOGY [place] [address] (Juhi garner) Scheduled Procedures Name Priority Associated Diagnoses Date/Time EGD, UPPER GI ENDOSCOPY Hepatic cirrhosis, unspe cified hepatic cirrhosis type, unspecified whet her ascites present documented as of this encounter Procedures Procedure Name Priority Date/Time Associated Comments Diagnosis CRP, ACUTE Routine 09/14/2018 3:59 PM Psoriatic arthritis Re sults for this INFLAMMATION EDT procedure are i n the results section. SCAN, PERIPHERAL BLOOD Routine 09/14/2018 3:59 PM Results for this EDT procedure are i n the results section. QUANTIFERON-TB GOLD Routine 09/14/2018 3:59 PM Psoriatic arthr itis Results for this EDT procedure are i n the results section. HEMOGRAM Routine 09/14/2018 3:59 PM Psoriatic arthritis Re sults for this EDT procedure are i n the results section. DIFFERENTIAL, Routine 09/14/2018 3:59 PM Psoriatic arthritis R esults for this AUTOMATED EDT procedure are i n the results section. HEPATITIS C ANTIBODY Routine 09/14/2018 3:59 PM Psoriatic arth ritis Results for this EDT procedure are i n the results section. HEPATITIS B CORE Routine 09/14/2018 3:59 PM Psoriatic arthriti s Results for this ANTIBODY, TOTAL EDT procedure ar e in the results section. VITAMIN D, 25-HYDROXY Routine 09/14/2018 3:59 PM Psoriatic art hritis Results for this EDT procedure are i n the results section. HIV SCREEN, 4TH Routine 09/14/2018 3:59 PM Psoriatic arthritis Results for this GENERATION EDT procedure are i n ([facility]CGP/APD/NL) the resul ts section. HEPATITIS B SURFACE Routine 09/14/2018 3:59 PM Psoriatic arthr itis Results for this ANTIBODY EDT procedure are i n the results section. HEPATITIS B SURFACE Routine 09/14/2018 3:59 PM Psoriatic arthr itis Results for this ANTIGEN EDT procedure are i n the results section. SEDIMENTATION RATE Routine 09/14/2018 3:59 PM Psoriatic arthri tis Results for this EDT procedure are i n the results section. CBC (WITH DIFF) Routine 09/14/2018 3:59 PM Psoriatic arthritis EDT COMPREHENSIVE Routine 09/14/2018 3:59 PM Psoriatic arthritis R esults for this METABOLIC PANEL EDT procedure ar e in (NON-FASTING) the results section. documented in this encounter Results Scan, Peripheral Blood (09/14/2018 3:59 PM EDT) [facility] gist Method Time Signature Plat Estimate Decreased [facility] RBC Morphology Abnormal [facility] Ovalocytes 1-5 /HPF [facility] Specimen Anatomical Collection Method Collection Time Receive d Time (Source) Location / / Volume Laterality Blood specimen 09/14/2018 3:59 PM 019 4:10 (specimen) EDT PM EDT Resulting Agency Comment Spec In Lab Manny Lugo MD HEMATOLOGY ORDERABLES Performing Organization Address City/State/[place] [address] (ABNORMAL) Differential, Automated (09/14/2018 3:59 PM EDT) [facility] Method Time Signature Neutrophils % 27.2 % [facility] Neutr Abs (ANC) 2.09 1.70 - [facility] 6.10 [facility] x10(3)/[facility] LABORATORY Lymphocytes % 31.2 % [facility] Lymphocytes Abs 2.4 0.9 - 3.2 [facility] x10(3)/[facility] LABORATORY Monocytes % 7.7 % [facility] Monocyte Abs 0.6 0.3 - 0.9 [facility] x10(3)/[facility] LABORATORY Eosinophils % 32.6 % [facility] Eosinophils Abs 2.5 (H) 0.0 - 0.4 [facility] x10(3)/[facility] LABORATORY Basophils % 1.0 % [facility] Basophils Abs 0.1 0.0 - 0.1 [facility] x10(3)/[facility] LABORATORY Immature Gran % 0.30 % [facility] Comment: Immature granulocytes(IG's)percentage an d absolute count will include metamyelocytes, myelocytes, and promyelo cytes. Blood smears from CBCs yielding IG's will be scanned manually for concor dance. If this scan disagrees with the automated IG or if promyelocytes are not ed, a manual differential will be performed. Judy Gran Abs 0.02 0.00 - 0.04 x10(3)/[facility] Y [facility]OR[facility]ORY Specimen Anatomical Collection Method Collection Time Receive d Time (Source) Location / / Volume Laterality Blood specimen 09/14/2018 3:59 PM 019 4:10 (specimen) EDT PM EDT Resulting Agency Comment Spec In Lab Manny Lugo MD HEMATOLOGY ORDERABLES Performing Organization Address City/[facility]/[place] [address] (ABNORMAL) Hemogram (09/14/2018 3:59 PM EDT) Analysis Performed At Patho logist Time Signature WBC 7.7 4.0 - 9.5 [facility] x10(3)/[facility] LABORATORY RBC 4.43 4.00 - [facility] 5.21 [facility] x10(6)/[facility] LABORATORY Hemoglobin 14.4 11.7 - [facility] 15.5 gm/dL [facility] Hematocrit 41.1 35.7 - [facility] 45.8 % [facility] MCV 92.8 82.6 - [facility] 94.4 [facility] LABORATORY MCH 32.5 (H) 27.1 - [facility] 32.0 pg [facility] MCHC 35.0 31.7 - [facility] 35.[facility] gm/dL [facility] Platelets 119 (L) 145 - 357 [facility] x10(3)/[facility] LABORATORY RDWSD 47.5 (H) 37.0 - [facility] 46.0 [facility] LABORATORY RDWCV 14.0 11.5 - [facility] 14.1 % [facility] MPV 10.2 7.6 - 12.9 [facility] LABORATORY nRBC % Auto 0.0 % [facility] nRBC Abs Auto 0.000 0.000 - [facility] 0.000 [facility] x10(3)/[facility] LABORATORY Specimen Anatomical Collection Method Collection Time Receive d Time (Source) Location / / Volume Laterality Blood specimen 09/14/2018 3:59 PM 019 4:10 (specimen) EDT PM EDT Resulting Agency Comment Spec In Lab Manny Lugo MD HEMATOLOGY ORDERABLES Performing Organization Address City/State/[place] [address] (ABNORMAL) Comprehensive metabolic panel (non-fasting) (09/14/2018 3:59 PM EDT) P athologist Signature Glucose Lvl 130 65 - 199 [facility] mg/dL [facility] Comment: Diabetes: >=200 mg/dL plus symp toms BUN 14 8 - 18 mg/dL [facility] Creatinine 0.78 0.70 - 1.20 mg/dL [facility] Sodium 141 135 - 145 mmol/L [facility] Potassium 4.2 3.5 - 5.0 mmol/L [facility] Comment: Please note: ??Patients with WBC >100,00 0 may have falsely elevated Potassium levels. ??For accurate Potassium quantif ication in these patients send serum separator tube (gold top) for subsequent determinations. ??Contact the Clinical Chemistry Laboratory if there are any qu estions. Chloride 100 98 - 107 mmol/L [facility] CO2 28 22 - 31 mmol/L [facility] Anion Gap 13 5 - 15 mmol/L [facility] Calcium 10.7 (H) 8.5 - 10.5 mg/dL [facility] Total Protein 8.8 (H) 6.1 - 8.0 gm/dL [facility] Albumin 4.7 3.2 - 5.2 gm/dL [facility] AST 22 0 - 30 unit/L [facility] ALT 13 0 - 30 unit/L [facility] Alk Phos 56 40 - 104 unit/L [facility] Total Bilirubin 0.4 0.2 - 1.3 mg/dL [facility] Estimated GFR 78 >=60 mL/min/1.73 m?? [facility] Comment: The eGFR was calculated using the CKD-EP I equation. As with all creatinine based estimates of kidney function, eGFR values calculated with the CKD-EPI equation are not accurate in patients wi th acute kidney failure, extremes of body mass or the acutely ill. [email or web address] eGFR 90 >=60 mL/min/1.73 m?? [facility] Comment: The eGFR was calculated using the CKD-EP I equation. As with all creatinine based estimates of kidney function, eGFR values calculated with the CKD-EPI equation are not accurate in patients wi th acute kidney failure, extremes of body mass or the acutely ill. [email or web address]ARK[facility]kf Specimen Anatomical Collection Method Collection Time Receive d Time (Source) Location / / Volume Laterality Blood specimen 09/14/2018 3:59 PM 019 4:10 (specimen) EDT PM EDT Resulting Agency Comment Spec In Lab Dio Jensen MD CHEMISTRY ORDERABLES Performing Organization Address [facility] [place] [address] Sedimentation rate (09/14/2018 3:59 PM EDT) P athologist Signature Sed Rate 17 0 - 20 [facility] mm/hr [facility] Specimen Anatomical Collection Method Collection Time Receive d Time (Source) Location / / Volume Laterality Blood specimen 09/14/2018 3:59 PM 019 4:10 (specimen) EDT PM EDT Resulting Agency Comment Spec In Lab Dio Jensen MD HEMATOLOGY ORDERABLES Performing Organization Address [facility] [place] [address] CRP, acute inflammation (09/14/2018 3:59 PM EDT) P athologist Signature CRP 0.7 <=4.9 mg/L [facility] Specimen Anatomical Collection Method Collection Time Receive d Time (Source) Location / / Volume Laterality Blood specimen 09/14/2018 3:59 PM 019 4:10 (specimen) EDT PM EDT Resulting Agency Comment Spec In Lab Dio Jensen MD CHEMISTRY ORDERABLES Performing Organization Address [facility] Phon e Number JOS[address] Vitamin D, 25-Hydroxy (09/14/2018 3:59 PM EDT) P athologist Signature 25-OH Vit D 33 30 - 100 [facility] Total ng/mL [facility] Comment: Deficient <10 ng/mL Insufficient 10 to 29 ng/mL Sufficient 30 to 100 ng/mL Potential Intoxication >100 ng/mL According to the [place] National Osteoporosi s Foundation, Vitamin D concentrations >30 ng/mL are sufficient to protect bone health. ??The National Kidney Foundation has similarly stated that pat ients with Vitamin D concentrations <30ng/mL should be considered to be insu fficient or deficient. http://[employer]/nkf-guidelines http://[employer]/nejm-VitD The [employer] Vitamin D Immunoassay detec ts both 25-OH Vitamin D2 and 25-OH Vitamin D3, but only a total Vitamin D c oncentration is reported. Specimen Anatomical Collection Method Collection Time Receive d Time (Source) Location / / Volume Laterality Blood specimen 09/14/2018 3:59 PM 019 7:14 (specimen) EDT AM EDT Resulting Agency Comment Spec In Lab Dio Jensen MD CHEMISTRY ORDERABLES Performing Organization Address City/State/ZIP Code Phon e Number [address] HIV Screen, 4th Generation (Leb/CGP/APD) (09/14/2018 3:59 PM EDT) Analysis Performed At Patho logist Time Signature HIV-1/2 Ab and Negative Negative [facility] LABORATORY Comment: This 4th Generation HIV test screens for the presence of the HIV-1 p24 antigen as well as antibodies reactive against H IV-1 and HIV-2. A negative screen does not rule out an acute HIV infection. If acute HIV infection is suspected, testing should be repeated in 2 - 3 week s or HIV nucleic acid testing performed. Specimen Anatomical Collection Method Collection Time Receive d Time (Source) Location / / Volume Laterality Blood specimen 09/14/2018 3:59 PM 019 4:10 (specimen) EDT PM EDT Resulting Agency Comment Spec In Lab Dio Jensen MD IMMUNOLOGY ORDERABLES Performing Organization Address City/State/[place] [address] QuantiFERON-TB Gold (09/14/2018 3:59 PM EDT) [facility] Method Time Signature QFT Nil 0.090 IU/mL [facility] QFT TB Ag1-Nil -0.020 IU/mL [facility] QFT TB Ag2-Nil -0.030 IU/mL [facility] QFT >10.000 IU/mL [facility] Mitogen-Nil [facility] Quantiferon TB Negative Negative [facility] Quantiferon TB M. tuberculosis infection NOT likely JOSÉ Interp A negative specimen should h ave a TB1 Ag minus Nil value and TB2 Ag minus Nil PRISCA value of less than 0.35 IU/mL OR a TB1 Ag minus Nil or TB2 Ag minus Nil value [facility] greater than or equal to 0.35 IU/mL AND a TB Ag minus Nil value from the same HOSPITAL tube of less than 25% of the Nil value. A negative spe cimen must also have a LABORATORY mitogen minus Nil value greater than or equal to 0.5 IU/mL. A negative QFT-Plus result d oes not preclude the possibility of M. tuberculosis infection. False negative re sults can occur due to stage of infection (specimen obtained prior to the development of immune response), co- morbid conditions which affect immune function, or other immunological factors . Comment: The performance of the QFT-Plus assay reyna s not been extensively evaluated with specimens from the following individuals : Individuals who have impaired or altered immune functions, such as those who have HIV infection or AIDS, those who reyna ve transplantation managed with immunosuppressive treatment or others wh o receive immunosuppressive drugs (e.g., corticosteroids, methotrexate, az athioprine, cancer chemotherapy), those who have other clinical conditions, such as diabetes, silicosis, chronic renal failure, and hematological disorders (e. g., leukemia and lymphomas), or those with other specific malignancies (e.g., carcinoma of the head or neck and lung). Individuals younger than age 17 years women. Diagnosis of, or the exclusion of tuberc ulosis disease, and assessment of Latent Tuberculosis Infection (LTBI) req uires a combination of epidemiological, historical, Medical and diagnostic findi ngs that should be taken into account when interpreting QFT-Plus results. Specimen Anatomical Collection Method Collection Time Receive d Time (Source) Location / / Volume Laterality Blood specimen 09/14/2018 3:59 PM 019 (specimen) EDT 11:04 AM EDT Resulting Agency Comment Spec In Lab Dio Jensen MD CHEMISTRY ORDERABLES Performing Organization Address City/[facility] Phon e Number [address] Hepatitis C Antibody (09/14/2018 3:59 PM EDT) Analysis Performed At Patho logist Time Signature Hepatitis C Ab Negative Negative [facility] Specimen Anatomical Collection Method Collection Time Receive d Time (Source) Location / / Volume Laterality Blood specimen 09/14/2018 3:59 PM 019 4:10 (specimen) EDT PM EDT Resulting Agency Comment Spec In Lab Dio Jensen MD IMMUNOLOGY ORDERABLES Performing Organization Address City/[facility] [place] [address] Hepatitis B Surface Antigen (09/14/2018 3:59 PM EDT) Analysis Performed At Patho logist Time Signature HepB Surface Negative Negative [facility] LABORATORY Specimen Anatomical Collection Method Collection Time Receive d Time (Source) Location / / Volume Laterality Blood specimen 09/14/2018 3:59 PM 019 4:10 (specimen) EDT PM EDT Resulting Agency Comment Spec In Lab Dio Jensen MD CHEMISTRY ORDERABLES Performing Organization Address City/[facility] Phon e Number [address] Hepatitis B Surface Antibody (09/14/2018 3:59 PM EDT) P athologist Signature HepB Surface <3.5 IU/L [facility] Ab Quant [facility] Comment: HepB Surface Ab Quant: Unvaccinated: < 8.5 IU/L Vaccinated: > 11.5 IU/L HepB Surface Ab Negative [facility] Comment: Patient is presumed to be not vaccinated or immune to HBV infection. Expected Results: Vaccinated: Positive Unvaccinated: Negative Specimen Anatomical Collection Method Collection Time Receive d Time (Source) Location / / Volume Laterality Blood specimen 09/14/2018 3:59 PM 019 4:10 (specimen) EDT PM EDT Resulting Agency Comment Spec In Lab Dio Jensen MD IMMUNOLOGY ORDERABLES Performing Organization Address City/[facility]/[place] [address] Hepatitis B Core Antibody, Total (09/14/2018 3:59 PM EDT) Analysis Performed At Patho logist Time Signature Hep B Core Ab Negative Negative [facility] Specimen Anatomical Collection Method Collection Time Receive d Time (Source) Location / / Volume Laterality Blood specimen 09/14/2018 3:59 PM 019 4:10 (specimen) EDT PM EDT Resulting Agency Comment Spec In Lab Dio Jensen MD CHEMISTRY ORDERABLES Performing Organization Address City/[facility]/ZIP [facility] [place] [address] XR Cervical Spine 2 Or 3 Views (09/14/2018 3:31 PM EDT) Anatomical Region Laterality Modality C-spine N/A Digital Radiography Specimen (Source) Anatomical Location Collection Method / Collectio n Time Received Time / Laterality Volume Impressions 09/14/2018 5:24 PM EDT Post laminectomy C3-C5 with posterior fixation brackets. Hardware intact. No complication. Severe lower cervical spine degenerative disc disease and arthropathy. Increased anterior angulation of the cer vical spine. Approximate 2 mm anterolisthesis C3 on C 4. Thank you for letting us participate in the care of this patient. For questions regarding this report, please contact e number below. ? Narrative 09/14/2018 5:24 PM EDT EXAMINATION: XR CERVICAL SPINE 2 OR 3 VIEWS CLINICAL HISTORY: Psoriatic Arthritis wi worsening neck pain TECHNIQUE: 2 views of the cervical spine COMPARISON: Mode preoperative studies from 2 FINDINGS: Post laminectomy C3-C5 with posterior fi xation brackets. Hardware intact. No complication. Severe lower cervical spine degenerative disc disease and arthropathy. Increased anterior angulation of the cer vical spine. Approximate 2 mm anterolisthesis C3 on C 4. Procedure Note Guanako Garland MD - 09/14/2018Form atting of this note might be different from the original. EXAMINATION: XR CERVICAL SPINE 2 OR 3 EWS CLINICAL HISTORY: Psoriatic Arthritis [facility] worsening neck pain TECHNIQUE: 2 views of the cervical spine COMPARISON: Mode preoperative studies from 2 FINDINGS: Post laminectomy C3-C5 with posterior fi xation brackets. Hardware intact. No complication. Severe lower cervical spine degenerative disc disease and arthropathy. Increased anterior angulation of the cer vical spine. Approximate 2 mm anterolisthesis C3 on C 4. IMPRESSION Post laminectomy C3-C5 with posterior fi xation brackets. Hardware intact. No complication. Severe lower cervical spine degenerative disc disease and arthropathy. Increased anterior angulation of the cer vical spine. Approximate 2 mm anterolisthesis C3 on C 4. Thank you for letting us participate in the care of this patient. For questions regarding this report, please contact e number below. Dio Jensen MD IMG DX ORDERABLES XR Hand Min 3 views Bilat (Generic) [...] report, please contact e number below. ? Narrative 09/14/2018 5:05 PM EDT EXAMINATION: XR HAND MIN 3 VIEWS BILAT (GENERIC) CLINICAL HISTORY: Psoriatic arthritis, , entered by ordering service TECHNIQUE: 4 views each hand COMPARISON: The 2000 radiographs are no longer available for comparison. [...] this report, please contact e number below. Dio Jensen MD IMG DX ORDERABLES documented in this encounter Visit Diagnoses Diagnosis Psoriatic arthritis Psoriatic arthropathy Psoriatic arthritis Psoriatic arthropathy documented in this encounter Care Teams Superintendent Drivers Relationship Specialty Start Date End Date Maricarmen Galvan, [employer]CIAL [employer] PROFESSIONAL PCP - General Family Medicine 05/10/18 [address] [place] [address] documented as of this encounter
--- OUTSIDE RECORDS SUMMARY | 2021-09-05 01:09 | XMS_ITS | Encounter Summary ---
:1950 [place] [address] Care Team Providers Name Role Phone Maricarmen Galvan [employer] PRESS OPERATOR Primary Care Provider Encounter Details Date Type Department Care Team Description 04/18/2013 Interpretation Only Radiology at [facility] Un[facility]no wn [facility] Ce nter None [address] [place] [address] [address] [place] [phone] Social History Tobacco Use Types Packs/Day [...] Radiology Tory Willard APRN [facility] [place], [place] [address] (Wo rk) 09/11/2021 Laboratory Appointment Lab 09/11/2021 Office Visit Gastroenterology Tory Willard APRN [facility] [place], [place] [address] (Wo rk) 09/11/2021 Office Visit Rheumatology Lorenzo Hermosillo PA [facility] [place], [place] [address] (Wo rk) Scheduled Procedures Name Priority Associated Diagnoses Date/Time EGD, UPPER GI ENDOSCOPY Hepatic cirrhosis, unspe cified hepatic cirrhosis type, unspecified whet her ascites present documented as of this encounter Procedures Procedure Name Priority Date/Time Associated Diagnosis Comme nts XR CERVICAL SPINE 1 Routine 04/18/2013 12:04 PM R esults for this VIEW EST procedure are i n the results section. documented in this encounter Results XR Cervical Spine 1 View (04/18/2013 12:04 PM EST) Anatomical Region Laterality Modality C-spine N/A Radiographic Imaging Specimen (Source) Anatomical Collection Method Collection Time Re ceived Time Location / / Volume Laterality 04/18/2013 12:04 PM EST Narrative 04/18/2013 12:04 PM EST APD Historical Result [employer]: ??KEREN ??Jc CERVICAL SPINE - AP AND LATERAL VIEWS: CLINICAL HISTORY: ??Following dorsal dec ompression with laminoplasties on March 28, 2012. [facility] and screws appea r intact with no interval changes to suggest metal fatigue fracture. ??The posterior-most t hreaded screw at C6 appears to have undergone slight retraction/backing out with more threads seen on this than previous examination. ??No other changes noted. ??Degenerative disc disea se findings continue with disc narrowing and endplate osteophyte formation. IMPRESSION: Possible threaded screw loos ening with slight 'backing out' at C6. Keren Orellana MD, FACR DBH/mn [id number] CC: Procedure Note Unknown - 08/22/2018Formatting of this n ote might be different from the original. APD Historical Result [employer]: KEREN Greene CERVICAL SPINE - AP AND LATERAL VIEWS: CLINICAL HISTORY: Following dorsal decom pression with laminoplasties on March 28, 2012. [facility] [place] [facility] The laminoplasty plates and screws appea r intact with no interval changes to suggest metal fatigue fracture. The posterior-most thr eaded screw at C6 appears to have undergone slight retraction/backing out with more threads seen on this than previous examination. No other changes noted. Degenerative disc disease findings continue with disc narrowing and endplate osteophyte formation. IMPRESSION: Possible threaded screw loos ening with slight 'backing out' at C6. Keren Orellana MD, FACR NAVNEET/juan [id number] CC: Unknown IMG DX ORDERABLES documented in this encounter Visit Diagnoses Not on filedocumented in this encounter Care Teams Lcsw Relationship Specialty Start Date End Date Maricarmen Galvan APRN PCP - General Family Medicine 05/10/18 [address] [place] [address] documented as of this encounter
--- OUTSIDE RECORDS SUMMARY | 2021-09-05 01:09 | XMS_ITS | Encounter Summary ---
:1950 Author Organization [facility] [place] [address] Care Team Providers Name Role Phone Maricarmen Galvan JORGE Primary Care Provider Encounter Details Date Type Department Care Team Description 07/25/2019 Hospital Encounter Gastro[place]ology at [facility] [place]am Dee [facility] [place] [address] [facility] [phone] DR GASTROENTEROLOGY [place], [place] [address] (Wo rk) Social History Tobacco Use Types Packs/Day Years Used Date Never Smoker Smokeless Tobacco: Never Used Alcohol Use Standard Drinks/Week Comments No 0 (1 standard drink = 0.6 oz pure alcoho l) Sex Assigned at Date Recorded Not on file documented as of this encounter Last Filed Vital Signs Vital Sign Reading Time Taken Comments Blood Pressure 115/73 07/25/2019 1:10 PM EDT Pulse 77 07/25/2019 1:10 PM EDT Temperature 36.7 ??C (98.1 ??F) 07/25/2019 10:33 AM EDT Respiratory Rate 16 07/25/2019 1:10 PM EDT Oxygen Saturation 91% 07/25/2019 1:10 PM EDT Inhaled Oxygen Concentration - - Weight 52.6 kg (116 lb) 07/25/2019 10:33 AM EDT Height - - Body Mass Index 22.65 03/10/2019 2:19 PM EST documented in this encounter Discharge Instructions Discharge InstructionsCici Clancy RN - 07/25/2019 12:36 PM EDT Upper GI Endoscopy: What to Expect at Home Your Recovery You will be able to go home after your doctor or nurse checks to make sure you are not having any problems. You may have to stay overnight if you had treatment during the test. You may have a sore throat for a day or two after the test. This care sheet gives you a general idea about what to expect after the test. How can you care for yourself at home? Activity Rest when you feel tired. ?? You can do your normal activities when it feels okay to do so. Diet ?? Follow your doctor's directions for eating. ?? Unless your doctor has told you not to, drink plenty of fluids. This helps to replace the fluidsthat were lost during the prep. ?? Do not drink alcohol. Medicines ?? Your doctor will tell you if and when you can restart your medicines. He or she will also give you instructions about taking any new medicines. ?? If you take blood thinners, such as warfarin (Coumadin), clopidogrel (Plavix), or aspirin, be sure to talk to your doctor. He or she will tell you if and when to start taking those medicines again.Make sure that you understand exactly what your doctor wants you to do. ?? If polyps were removed or a biopsy was done during the test, your doctor may tell you not to take aspirin or other anti-inflammatory medicines for a few days. These include ibuprofen (Advil, Motrin) and naproxen (Aleve). ?? If you have a sore throat the day after the procedure, use an ywko-bxh-zpunyzi spray to numb yourthroat. Sucking on throat lozenges and gargling with warm salt water may also help relieve your symptoms. Other instructions ?? For your safety, do not drive or operate machinery until the medicine wears off and you can think clearly. Your doctor may tell you not to drive or operate machinery until the day after your test. ?? Do not sign legal documents or make major decisions until the medicine wears off and you can think clearly. The anesthesia can make it hard for you to fully understand what you are agreeing to. Additional Information for Sedation Patients For patients who received sedation: ?? You may have received medications before and/or during your procedure which effects your judgement and reaction time. ?? Do not drive, operate machinery, drink alcoholic beverages or make important decisions for 24 hours. ?? Be careful on stairs as you may be unsteady on your feet. ?? You may eat a regular diet as tolerated. ?? Do not smoke if you are alone. ?? IV site: Slight redness or tenderness is normal, you can use a warm compress if you would like. If tenderness and/or redness increase or if foul drainage occurs, please contact your Doctor. Please call [phone] before 8pm Mon-Fri with problems, questions or concerns. If you call after 8pm or on weekends, call the Hospital at [phone] and ask to speak to the Fuel Agent window unit air conditioning mechanic and the movie operator will contact that person for you. When should you call for help? Call [phone] anytime you think you may need emergency care. For example, call if: ?? You passed out (lost consciousness). ?? You pass maroon or bloody stools. ?? You have trouble breathing. Call your doctor now or seek immediate medical care if: ?? You have pain that does not get better after you take pain medicine. ?? You are sick to your stomach or cannot drink fluids. ?? You have new or worse belly pain. ?? You have blood in your stools. ?? You have a fever. ?? You cannot pass stools or gas. Watch closely for changes in your health, and be sure to contact your doctor if you have any problems. Where can you learn more? [facility] View your After Visit Summary and more online at [email or web address] If you would like to provide feedback about your hospital experience, please call the Office of Patient and Family Relations at . If you have received this After Visit Summary in error, please immediately return it in person to the department, or notify the [facility] Privacy Office by calling toll free at between the hours of 8AM and 5PM to arrange for our retrieval of the documents at no cost to you. Content Version: 12.2 ?? [phone] [employer]. Care instructions adapted under license by [facility]. If you have questions about a medical condition or this instruction, always ask your healthcare professional. [employer] disclaims any warranty or liability for your use of this information. documented in this encounter Medications at Time of Discharge [...] as needed. documented as of this encounter H&P Notes Azam Dee MD - 07/25/2019 11:50 AM EDT Patient Name: Shereen Vega Patient Age: 69 y.o. Birthdate: 1950 Admit date: 07/25/2019 Attending Physician: Azam Dee MD Gastroenterology & Hepatology Pre-Procedure History and Physical Planned Procedure: EGD: Indication: screen for varices, Cirrhosis/thrombocytopenia Patient Active Problem List Diagnosis Code ??? Balance problem R26.89 ??? Transient global amnesia G45.4 ??? Hypertension I10 ??? Hyperlipidemia E78.5 ??? Hypothyroidism E03.9 ??? Psoriatic arthritis L40.50 ??? Osteoarthritis M19.90 ??? Cervical spondylosis M47.812 ??? Social anxiety disorder F40.10 ??? Menopause, premature E28.319 ??? 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 Chronic constipation K59.09 ??? Dysosmia R43.9 ??? Chest pain R07.9 Medications: Reviewed in EDH Allergies Allergen Reactions ??? Erythromycin Base Abdominal pain ??? Penicillins Hives ??? Plaquenil [Hydroxychloroquine] Reaction unknown ??? Quinine Thrombocytopenia ??? Sulfasalazine Patient not sure about reaction. Social History/Family History: Reviewed in EDH. No changes Exam: Most Recent Vitals: 07/25/19 1210 BP: 144/75 Pulse: 91 Resp: 18 Temp: SpO2: 97% GEN: NAD, AAOX3 HEENT: NC/AT dryMM, anicteric Chest: CTAB Heart: RRR, nl s1, s2 Abdomen: normal bowel sounds, soft, non tender Assessment and Plan: Proceed with EGD: ASA Grade: ASA 2 - Patient with mild systemic disease with no functional limitations Mallampati: I (soft palate, uvula, fauces, tonsillar pillars visible) Sedation plan: IV Conscious Sedation Risks and benefits of the procedure were discussed with the patient. Risks discussed including bleeding, infection, reaction to anesthesia, perforation or other intraabdominal trauma, pancreatitis (if applicable), missing a cancer (if applicable) and/or other unforseen complication. Informed Consent signed by patient (or route service representative). documented in this encounter Plan of Treatment Upcoming Encounters Date Type Specialty Care Team Description 09/11/2021 Appointment Radiology Tory Willard APRN [facility] GASTROENTEROLOGY [place], [place] [address] (Wo rk) 09/11/2021 Laboratory Appointment Lab 09/11/2021 Office Visit Gastroenterology Tory Willard APRN [facility] GASTROENTEROLOGY [place], [place] [address] (Wo rk) 09/11/2021 Office Visit Rheumatology Lorenzo Hermosillo PA [facility] RHEUMATOLOGY [place], [place] [address] (Wo rk) Scheduled Procedures Name Priority Associated Diagnoses Date/Time EGD, UPPER GI ENDOSCOPY Hepatic cirrhosis, unspe cified hepatic cirrhosis type, unspecified whet her ascites present documented as of this encounter Procedures Procedure Name Priority Date/Time Associated Diagnosis Comme nts EGD, UPPER GI 07/25/2019 12:07 PM Hepatic cirrhosis, ENDOSCOPY EDT unspecified hepatic cirrhosis type, unspecified whether ascites present UPPER GI ENDOSCOPY Routine 07/25/2019 11:05 AM Re sults for this EDT procedure are i n the results section. POCT GLUCOSE Routine 07/25/2019 10:42 AM Results for this EDT procedure are i n the results section. documented in this encounter Results UPPER GI ENDOSCOPY (07/25/2019 11:05 AM EDT) Component Value Ref Test Analysis Performed At [facility] Range Method Time Signature UPPER GI [facility] ENDOSCOPY Endoscopy Procedure Date: 07/25/2019 11:05 AM ? Patient Name: Shereen Vega ? Date of : 1950 ? Age: 69 ? Order #: [id number] ? Instrument Name: [id number] ? Procedure: ? Upper GI endoscopy Indications: ? Cirrhosis rule out esophageal varic es Providers: ? Azam Dee MD, Rigo Montoya ? Isaiah Weaver Shan non J. ? MD Humberto Referring : ?Maricarmen PadillaFlores Cole Medicines: ? Fentanyl 50 micrograms IV, Midazol am ? 2 mg IV Complications: ? No immediate complications. Procedure: ? Pre-Anesthesia Assessment: ? - Prior to the procedure, a H istory ? and Physical was performed, a nd ? patient medications, allergie s and ? sensitivities were reviewed. The ? patient's tolerance of previo us ? anesthesia was reviewed. ? - The risks and benefits of t he ? procedure and the sedation op tions ? and risks were discussed with the ? patient. All questions were a nswered ? and informed consent was obta ined. ? - Patient identification and proposed ? procedure were verified prior to the ? procedure by the physician, t he nurse ? and the cadd technician. The proce herb was ? verified in the pre-procedure area in ? the procedure room in the end oscopy ? suite. ? The procedure, indications, b enefits, ? risks and alternatives were e xplained ? to the patient. Specifically ? discussed were potential ? complications including, but not ? limited to, bleeding, perfora tion, ? infection, missing a cancer, and ? adverse medication reactions. The ? Endoscope was introduced thro ugh the ? mouth, and advanced to the se cond ? part of duodenum. The patient ? tolerated the procedure well. The ? upper GI endoscopy was accomp lished ? without difficulty. The patie nt ? tolerated the procedure well. ? Findings: ? The esophagus was normal. No evidence of varices. ? The Z-line was regular and was found 34 cm from the ? incisors. ? The stomach was normal. ? The examined duodenum was normal. ? Moderate Sedation: ? I was present during the intraservice time as ? documented by the sedation RN. Impression: ?- Normal esophagus. No varices. ? - Z-line regular, 34 cm from the ? incisors. ? - Normal stomach. ? - Normal examined duodenum. ? - No specimens collected. Recommendation: ?- Discharge patient to home. ? - Follow up with Tory quintanilla in ? Hepatology clinic as schedule d. ? Attending Participation: ? I was present and participated during the entire ? procedure, including non-anand portions. ? Dr. Srinath Dee Azam Dee MD 07/25/2019 12:25:56 PM Number of Addenda: 0 Note Initiated On: 07/25/2019 11:05 AM Specimen (Source) Anatomical Collection Method Collection Time Re ceived Time Location / / Volume Laterality 07/25/2019 11:05 AM EDT Maricarmen Galvan COSTUMED CHARACTER ENTERTAINER GENERAL SURGICAL ORDERABLES Performing Organization Address City/[facility]/ZIP Code Phon e Number PROVATION (ABNORMAL) POCT Glucose (07/25/2019 10:42 AM EDT) P athologist Signature POC Glucose 223 (H) 65 - 199 [facility] mg/dL [facility] Comment: Supplemental ranges: <140 mg/dL before meals <180 mg/dL all other times of the day Specimen Anatomical Collection Method Collection Time Receive d Time (Source) Location / / Volume Laterality Blood specimen 07/25/2019 10:42 0 (specimen) AM EDT 10:42 AM EDT Azam Dee MD POINT OF CARE TEST ORDERABLE S Performing Organization Address City/State/[place]IP [place] [address] documented in this encounter Visit Diagnoses Not on filedocumented in this encounter Administered Medications Inactive Administered Medications - up to 3 most recent administrations Medication Order MAR Action Action Date Dose Rate Site lactated ringers infusion New Bag 07/25/2019 10:49 AM 100 mL/hr 100 mL/hr 100 mL/hr, Intravenous, EDT CONTINUOUS, Starting on Tu07/25/19 at 1045, Until Tu07/25/19 at 1327, Endoscopy (Day of Procedure) documented in this encounter Active and Recently Administered Medications Times are shown in EDT. Continuous Medication Order 07/23/2019 07/24/2019 07/25/2019 lactated ringers infusion (CANCELED) 1049 (New Bag - Provider: Brooklyn Coker RN) 100 mL/hr, at 100 mL/hr, Intravenous, CO NTINUOUS, Starting 07/25/19 at 1045, Until Tue 20 at 1327, Endo (Day of Procedure) PRN Medication Order 07/23/2019 07/24/2019 07/25/2019 fentaNYL 50 mcg/mL multi-dose injection (CANCELED) 1212 (Given - Provider: Rigo Weaver, HANNA) ONCE PRN, Starting 07/25/19 at 1212, U ntil Tue //20 at 1547, Intra-Operative (Intra-Procedure), Routine midazolam (PF) (VERSED) multi-dose injection (CANCELED) 1212 (Given - Provider: Rigo Weaver RN)1217 (Given - Provider: Rigo Weaver RN) ONCE PRN, Starting Tue 20 at 1212, U ntil Tue //20 at 1547, Intra-Operative (Intra-Procedure), Routine documented in this encounter Care Teams Commercial Solar Sales Consultant Relationship Specialty Start Date End Date Maricarmen Galvan, COSTUMED CHARACTER ENTERTAINER PCP - General Family Medicine 05/10/18 [address] [place] [address] documented as of this encounter
--- OUTSIDE RECORDS SUMMARY | 2021-09-05 01:09 | XMS_ITS | Encounter Summary ---
:1950 Author Organization [facility] [address] Care Team Providers Name Role Phone Jeanna Smith JROGE Primary Care Provider Reason for Visit Reason Comments Low Back Pain Bilateral Leg Pain L>R Encounter Details Date Type Department Care Team Description 03/21/2012 Follow-Up [facility] at [facility] M D Spondylosis (Primary [facility] Dx) [facility] [address] [place] [address] [place] [address] [phone] (Wo rk) Social History Tobacco Use Types Packs/Day Years Used Date Never Smoker Smokeless Tobacco: Never Used Alcohol Use Standard Drinks/Week Comments No 0 (1 standard drink = 0.6 oz pure alcoho l) Sex Assigned at Date Recorded Not on file documented as of this encounter Progress Notes [facility] MD - 03/21/2012 1:42 PM EST Shereen Vega returns to the Spine Center in follow up of her spondylosis. Since being seen last time, her symptoms are quite static. She has two principle complaints. The first of that is a sense of unbalance when she attempts to walk, and the second is pain in her left leg, which radiates from the upper leg into the knee with some radiation below the knee. There is not much in the way of right lower extremity symptoms. On examination, motor strength in the lower extremities is full. Deep tendon reflexes in the upper and lower extremities are brisk. There is no Hall. Plantar responses are equivocal, but probably flexor. Her gait is halting and unsteady. Review of her images shows a well preserved cervical lordosis. 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 She has no significant thoracic stenosis. In the lumbar spine, she has a well preserved lumbar lordosis. There is some foraminal stenosis, left worse than right at L4-5, and how much of her left leg pain is related to this lateral recess stenosis at 4-5 I think is hard to know for sure. I outlined the options of consideration of a decompressive laminectomy, possibly with a fusion, and that this may help her gait unsteadiness and prevent further worsening of her problem. We also discussed the possibility of an epidural steroid injection to the lumbar spine to see if this would make a difference with her left leg pain, and we discussed some of the risks involved with all of these. She is uncertain as to how she would like to proceed at this point, and would like to think about things. She says she has been living with these problems for quite some time, and she will let me know how she would like to proceed. I did offer her that after considering her options, she could call and we can have another appointment to further discuss things, and she will take things from there. All questions were answered. documented in this encounter Plan of Treatment Upcoming Encounters Date Type Specialty Care Team Description 09/11/2021 Appointment Radiology Tory Willard APRN [facility] GASTROENTEROLOGY [place], [place] [address] (Wo rk) 09/11/2021 Laboratory Appointment Lab 09/11/2021 Office Visit Gastroenterology Tory Willard APRN [facility] GASTROENTERTYRONE [place], [place] [address] (Wo rk) 09/11/2021 Office Visit Rheumatology Lorenzo Hermosillo PA [facility] RHEUMATOLOGY [place], [place] [address] (Wo rk) Scheduled Procedures Name Priority Associated Diagnoses Date/Time EGD, UPPER GI ENDOSCOPY Hepatic cirrhosis, unspe cified hepatic cirrhosis type, unspecified whet her ascites present documented as of this encounter Visit Diagnoses Diagnosis Spondylosis - Primary Spondylosis of unspecified site without mention of myelopathy documented in this encounter Care Teams Carton Filler Relationship Specialty Start Date End Date Jeanna Smith APRN PCP - General 12/16/11 05/09/18 [address] [place] [address] documented as of this encounter
--- OUTSIDE RECORDS SUMMARY | 2021-09-05 01:09 | XMS_ITS | Encounter Summary ---
:1950 Author Organization [facility] [place] [address] Care Team Providers Name Role Phone Maricarmen Galvan JORGE Primary Care Provider Encounter Details Date Type Department Care Team Description 09/14/2018 Hospital Encounter XRay at [facility] Dio Jensen Psoriatic arthritis [address] [place] [address] [place] [address] RHEUMATOLOGY DEPT. [phone] [place], [place] [address] (Wo rk) Social History Tobacco [...] Description 09/11/2021 Appointment Radiology Tory Willard APRN [facility] GASTROENTEROLOGY [place], [place] [address] (Wo rk) 09/11/2021 Laboratory Appointment Lab 09/11/2021 Office Visit Gastroenterology Tory Willard APRN [facility] GASTROENTEROLOGY [place], [place] [address] (Wo rk) 09/11/2021 Office Visit Rheumatology Lorenzo Hermosillo PA [facility] RHEUMATOLOGY [place], [place] [address] (Wo rk) Scheduled Procedures Name [...] in this encounter Results XR Cervical Spine 2 Or 3 Views [...] report, please contact th e number below. ? Electronically signed by: Guanako jefferson [facility] ([phone]), at 09/14/2018 5:24 PM Narrative 09/14/2018 5:24 PM EDT EXAMINATION: XR CERVICAL SPINE 2 OR 3 VIEWS CLINICAL HISTORY: Psoriatic Arthritis wi th worsening neck pain TECHNIQUE: 2 views of [...] OR 3 EWS CLINICAL HISTORY: Psoriatic Arthritis wi th worsening neck pain TECHNIQUE: 2 views of [...] report, please contact th e number below. Dio Jensen MD IMG DX ORDERABLES documented in this encounter Visit Diagnoses Diagnosis Psoriatic arthritis Psoriatic arthropathy Psoriatic arthritis Psoriatic arthropathy documented in this encounter Care Teams Pants Closer Relationship Specialty Start Date End Date Maricarmen Galvan, ASSOCIATE PCP - General Family Medicine 05/10/18 [address] [place] [address] documented as of this encounter
--- OUTSIDE RECORDS SUMMARY | 2021-09-05 01:09 | XMS_ITS | Encounter Summary ---
:1950 [place] [address] Care Team Providers Name Role Phone Maricarmen Galvan CHRISTIAN SCIENCE READER Primary Care Provider Encounter Details Date Type Department Care Team Description 01/31/2013 Interpretation Only Radiology at [facility] Unkno wn [facility] Ce nter None [address] [place] [address] [place] [phone] Social History Tobacco Use Types Packs/Day [...] Willard APRN [facility] GASTROENTEROLOGY [place], [place] [address] (Wo rk) 09/11/2021 Laboratory Appointment Lab 09/11/2021 Office Visit Gastroenterology Tory Willard APRN [facility] GASTROENTEROLOGY [place], [place] [address] (Wo rk) 09/11/2021 Office Visit Rheumatology Lorenzo Hermosillo PA [facility] RHEUMATOLOGY [place], [place] [address] (Wo rk) Scheduled Procedures Name Priority Associated Diagnoses Date/Time EGD, UPPER GI ENDOSCOPY Hepatic cirrhosis, unspe cified hepatic cirrhosis type, unspecified whet her ascites present documented as of this encounter Procedures Procedure Name Priority Date/Time Associated Diagnosis Comme nts XR CERVICAL SPINE 1 Routine 01/31/2013 9:58 AM Re sults for this VIEW EST procedure are i n the results section. documented in this encounter Results XR Cervical Spine 1 View (01/31/2013 9:58 AM EST) Anatomical Region Laterality Modality C-spine N/A Radiographic Imaging Specimen (Source) Anatomical Collection Method Collection Time Re ceived Time Location / / Volume Laterality 01/31/2013 9:58 AM EST Narrative 01/31/2013 9:58 AM EST APD Historical Result Principal First Assistant: ??KEREN ??B LATERAL CERVICAL SPINE - NEUTRAL POSITIO N: CLINICAL HISTORY: ??Following laminoplas ty. Limited comparison is made with preopera tive images. 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 ??The C3 spinous process has been resected. ??A laminoplasty is present at C5 and at C6 with plate and threaded screws securing the decompression event. ??No prevertebral s oft tissue swelling seen. Unchanged degenerative disc disease lies at the C6-7 level. Keren Orellana MD, FACR [facility]/juan [id number] CC: Procedure Note Unknown - 08/22/2018Formatting of this n ote might be different from the original. APD Historical Result Principal First Assistant: KEREN Greene LATERAL CERVICAL SPINE - NEUTRAL POSITIO N: CLINICAL HISTORY: Following laminoplasty . Limited comparison is made with preopera tive images. 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 The C3 spinous process has been resected. A laminoplasty is present at C5 and at C6 with plate and threaded screws securing the decompression event. No prevertebral sof t tissue swelling seen. Unchanged degenerative disc disease lies at the C6-7 level. Keren Orellana MD, FACR [facility]/juan [id number] CC: Unknown IMG DX ORDERABLES documented in this encounter Visit Diagnoses Not on filedocumented in this encounter Care Teams Minister Helper Relationship Specialty Start Date End Date Maricarmen Galvan APRN PCP - General Family Medicine 05/10/18 [address] [place] [address] documented as of this encounter
--- OUTSIDE RECORDS SUMMARY | 2021-09-05 01:09 | XMS_ITS | Encounter Summary ---
:1950 [place] [address] Care Team Providers Name Role Phone Maricarmen Galvan SHOE SHANKER Primary Care Provider Encounter Details Date Type Department Care Team Description 01/02/2019 Laboratory Appointment Lab 3L [facility] [place] [address] Social History Tobacco Use Types Packs/Day Years Used Date Never Smoker Smokeless Tobacco: Never Used Alcohol Use Standard Drinks/Week Comments No 0 (1 standard drink = 0.6 oz pure alcoho l) Sex Assigned at Date Recorded Not on file documented as of this encounter Plan of Treatment Upcoming Encounters Date Type Specialty Care Team Description 09/11/2021 Appointment Radiology Tory Willard APRN [facility] GASTROENTEROLOGY [place], [place] [address] (Wo rk) 09/11/2021 Laboratory Appointment Lab 09/11/2021 Office Visit Gastroenterology Tory Willard APRN [facility] GASTROENTEROLOGY [place], [place] [address] (Wo rk) 09/11/2021 Office Visit Rheumatology Lorenzo Hermosillo PA [facility] RHEUMATOLOGY [place], [place] [address] (Wo rk) Scheduled Procedures Name Priority Associated Diagnoses Date/Time EGD, UPPER GI ENDOSCOPY Hepatic cirrhosis, unspe cified hepatic cirrhosis type, unspecified whet her ascites present documented as of this encounter Procedures Procedure Name Priority Date/Time Associated Comments Diagnosis HC VENIPUNCTURE Routine 01/02/2019 10:39 Psoriatic arthritis R esults for this AM EST procedure are i n the results section. HEMOGRAM Routine 01/02/2019 10:39 Psoriatic arthritis Resu lts for this AM EST procedure are i n the results section. DIFFERENTIAL, Routine 01/02/2019 10:39 Psoriatic arthritis Res ults for this AUTOMATED AM EST procedure are i n the results section. HC ESR-SEDIMENTATION Routine 01/02/2019 10:39 Psoriatic arthri tis Results for this RATE, BLOOD AM EST procedure are i n the results section. HC CBC,PLT & AUTO DIFF Routine 01/02/2019 10:39 Psoriatic arth ritis AM EST COMPREHENSIVE Routine 01/02/2019 10:39 Psoriatic arthritis Res ults for this METABOLIC PANEL AM EST procedure ar e in (NON-FASTING) the results section. documented in this encounter Results (ABNORMAL) Differential, Automated (01/02/2019 10:39 AM EST) [facility] Method Time Signature Neutrophils % 28.4 % [facility] LABORATORY Neutr Abs (ANC) 1.44 (L) 1.70 - [facility] 6.10 [facility] x10(3)/[facility] LABORATORY Lymphocytes % 36.6 % [facility] LABORATORY Lymphocytes Abs 1.9 0.9 - 3.2 [facility] x10(3)/[facility] LABORATORY Monocytes % 10.0 % [facility] LABORATORY Monocyte Abs 0.5 0.3 - 0.9 [facility] x10(3)[facility] LABORATORY Eosinophils % 23.6 % [facility] LABORATORY Eosinophils Abs 1.2 (H) 0.0 - 0.4 [facility] x10(3)/[facility] [place] LABORATORY Basophils % 1.2 % [facility] LABORATORY Basophils Abs 0.1 0.0 - 0.1 [facility] x10(3)/[facility] LABORATORY Immature Gran % 0.20 % [facility] LABORATORY Comment: Immature granulocytes(IG's)percentage an d absolute count will include metamyelocytes, myelocytes, and promyelo cytes. Blood smears from CBCs yielding IG's will be scanned manually for concor dance. If this scan disagrees with the automated IG or if promyelocytes are not ed, a manual differential will be performed. Judy Gran Abs 0.01 0.00 - 0.04 x10(3)/[facility] Y [facility] LABORATORY Specimen Anatomical Collection Method Collection Time Receive d Time (Source) Location / / Volume Laterality Blood specimen 01/02/2019 10:39 9 (specimen) AM EST 10:48 AM EST Resulting Agency Comment Spec In Lab Manny Lugo MD HEMATOLOGY ORDERABLES Performing Organization Address City/State/[place] [address] (ABNORMAL) Hemogram (01/02/2019 10:39 AM EST) Analysis Performed At Patho logist Time Signature WBC 5.1 4.0 - 9.5 [facility] x10(3)/[facility] LABORATORY RBC 4.11 4.00 - [facility]21 [facility] x10(6[facility] LABORATORY Hemoglobin 13.2 11.7 - [facility] gm/dL [facility] LAB[facility]ORY Hematocrit 39.0 35.7 - [facility] 45.8 % [facility] LABORATORY MCV 94.9 (H) 82.6 - [facility] 94[facility]4 [facility] LABORATORY MCH 32.1 (H) 27.1 - [facility] 32.0 pg [facility] LABORATORY MCHC 33.8 31.7 - [facility] 35.0 gm/dL [facility] LABORATORY Platelets 97 (L) 145 - 357 [facility] x10(3)/[facility] LABORATORY RDWSD 46.4 (H) 37.0 - [facility] 46.0 [facility] LABORATORY RDWCV 13.3 11.5 - [facility] 14.1 % [facility] LABORATORY MPV 10.3 7.6 - 12.9 [facility] LABORATORY nRBC % Auto 0.0 % [facility] LABORATORY nRBC Abs Auto 0.000 0.000 - [facility]000 [facility] x10(3)/[facility] LABORATORY Specimen Anatomical Collection Method Collection Time Receive d Time (Source) Location / / Volume Laterality Blood specimen 01/02/2019 10:39 9 (specimen) AM EST 10:48 AM EST Resulting Agency Comment Spec In Lab Manny Lugo MD HEMATOLOGY ORDERABLES Performing Organization Address City/State/[place] [address] (ABNORMAL) Comprehensive metabolic panel (non-fasting) (01/02/2019 10:39 AM EST) P athologist Signature Glucose Lvl 207 (H) 65 - 199 [facility] mg/dL [facility] LABORATORY Comment: Diabetes: >=200 mg/dL plus symp toms BUN 14 8 - 18 mg/dL [facility] LABORATORY Creatinine 0.73 0.70 - 1.20 mg/dL [facility] LABORATORY Sodium 141 135 - 145 mmol/L [facility] LABORATORY Potassium 4.0 3.5 - 5.0 mmol/L [facility] LABORATORY Comment: Please note: ??Patients with WBC >100,00 0 may have falsely elevated Potassium levels. ??For accurate Potassium quantif ication in these patients send serum separator tube (gold top) for subsequent determinations. ??Contact the Clinical Chemistry Laboratory if there are any qu estions. Chloride 102 98 - 107 mmol/L [facility] LABORATORY CO2 24 22 - 31 mmol/L [facility] LABORATORY Anion Gap 15 5 - 15 mmol/L [facility] LABORATORY Calcium 9.8 8.5 - 10.5 mg/dL [facility] LABORATORY Total Protein 8.2 (H) 6.1 - 8.0 gm/dL [facility] LABORATORY Albumin 4.3 3.2 - 5.2 gm/dL [facility] LABORATORY AST 23 0 - 30 unit/L [facility] LABOR[facility] ALT 16 0 - 30 unit/L [facility] LABOR[facility] Alk Phos 55 35 - 105 unit/L [facility] LABORATORY Total Bilirubin 0.5 0.2 - 1.3 mg/dL [facility] LABORATORY Estimated GFR 84 >=60 mL/min/1.73 m?? [facility] LABORATORY Comment: The eGFR was calculated using the CKD-EP I equation. As with all creatinine based estimates of kidney function, eGFR values calculated with the CKD-EPI equation are not accurate in patients wi th acute kidney failure, extremes of body mass or the acutely ill. http://[employer]/[facility]ULSAnkf eGFR 97 >=60 mL/min/1.73 m?? [facility] LABORATORY Comment: The eGFR was calculated using the CKD-EP I equation. As with all creatinine based estimates of kidney function, eGFR values calculated with the CKD-EPI equation are not accurate in patients wi th acute kidney failure, extremes of body mass or the acutely ill. http://[employer]/[facility] TULSAnkf Specimen Anatomical Collection Method Collection Time Receive d Time (Source) Location / / Volume Laterality Blood specimen 01/02/2019 10:39 9 (specimen) AM EST 10:49 AM EST Resulting Agency Comment Spec In Lab Dio Jensen MD CHEMISTRY ORDERABLES Performing Organization Address City/[facility]/[place] [address] (ABNORMAL) Sedimentation rate (01/02/2019 10:39 AM EST) P athologist Signature Sed Rate 21 (H) 0 - 20 [facility] mm/hr [facility] LABORATORY Specimen Anatomical Collection Method Collection Time Receive d Time (Source) Location / / Volume Laterality Blood specimen 01/02/2019 10:39 9 (specimen) AM EST 10:48 AM EST Resulting Agency Comment Spec In Lab Dio Jensen MD HEMATOLOGY ORDERABLES Performing Organization Address City/State/ZIP [facility] [place] [address] CRP, acute inflammation (01/02/2019 10:39 AM EST) P athologist Signature CRP 0.8 <=4.9 mg/L [facility] LABORATORY Specimen Anatomical Collection Method Collection Time Receive d Time (Source) Location / / Volume Laterality Blood specimen 01/02/2019 10:39 9 (specimen) AM EST 10:49 AM EST Resulting Agency Comment Spec In Lab Dio Jensen MD CHEMISTRY ORDERABLES Performing Organization Address City/State/ZIP Code Phon e Number [place] [phone] documented in this encounter Visit Diagnoses Diagnosis Psoriatic arthritis Psoriatic arthropathy documented in this encounter Care Teams Nailhead Puncher Relationship Specialty Start Date End Date Maricarmen Galvan APRN PCP - General Family Medicine 05/10/18 [address] [place] [address] documented as of this encounter
--- OUTSIDE RECORDS SUMMARY | 2021-09-05 01:09 | XMS_ITS | Encounter Summary ---
:1950 Author Organization [facility] Address [facility] [place] [address] Care Team Providers Name Role Phone Maricarmen Galvan APRN Primary Care Provider Encounter Details Date Type Department Care Team Description 03/10/2019 Office Visit Gastroenterology at [facility] Yuriy Ayers Hepatic cirrhosis, [facility] Robert Flood [place] [address] [facility] cirrhosis type, CENTER unspecified whether [place]STROENTER[place] [address] Social History Tobacco Use Types Packs/Day Years Used Date Never Smoker Smokeless Tobacco: Never Used Alcohol Use Standard Drinks/Week Comments No 0 (1 standard drink = 0.6 oz pure alcoho l) Sex Assigned at Date Recorded Not on file documented as of this encounter Last Filed Vital Signs Vital Sign Reading Time Taken Comments Blood Pressure 119/76 03/10/2019 2:19 PM EST Pulse 94 03/10/2019 2:19 PM EST Temperature - - Respiratory Rate - - Oxygen Saturation - - Inhaled Oxygen Concentration - - Weight 54.1 kg (119 lb 3.2 oz) 03/10/2019 2:19 PM EST Height 152.4 cm (5') 03/10/2019 2:19 PM EST Body Mass Index 23.28 03/10/2019 2:19 PM EST documented in this encounter Progress Notes Yuriy Ayers APRN - 03/10/2019 2:00 PM EST Images from the original note were not included. HEPATOLOGY NEW PATIENT CONSULTATION Shereen Vega 1950 VOCATIONAL ADVISER: YURIY AYERS APRN PCP: Maricarmen Galvan APRN Requesting Provider: REASON FOR CONSULTATION Cirrhosis with varices seen on CT scan HISTORY OF PRESENT ILLNESS Shereen Vega is a 68 y.o. year old female with history of diabetes, psoriatic arthritis referred for findings of cirrhosis with varices on her recent CT scan. Weight has been stable at 115-119, has never been much heavier. She had a CT scan due to a cough. Cough is still going on, dry cough. When was was taking a pill from her PCP, the cough would stop. ROS: Constitutional: no fatigue, fever, chills, no change in weight >10lbs in last 6 months Eye: no visual changes ENT: no URI symptoms Cardio: no chest pain, palpitations Resp: occasional cough, no SOB GI: see HPI. No blood in stools, no nausea/vomitting : no dysuria Integumentary: no new rashes, no easy bruising Musculoskeletal: no new joint pains, swelling of ankles or legs Neuro: no new numbness, weakness in extremities PAST MEDICAL/SURGICAL HISTORY Psoriatic arthritis - Took Methotrexate for a short period (under a year). Current taking Humira. Diabetes - past 20 years.. Taking Metformin. Hyperlipidemia Hypothyroid MEDICATIONS Outpatient Medications Marked as Taking for the 03/10/19 encounter (Office Visit) with Yuriy Ayers APRN Medication Sig Dispense Refill ??? fluticasone propion-salmeterol (ADVAIR) 100-50 mcg/dose Disk with Device Inhale 1 puff into the lungs every 12 hours. ??? folic acid (FOLVITE) 400 mcg Tablet Take 400 mcg by mouth daily. ??? Adalimumab (HUMIRA PEN) 40 mg/0.8 mL Pen Injector Kit Inject 0.8 mLs subcutaneously every 14 days. (Patient taking differently: Inject 40 mg subcutaneously every 14 days. No longer on the pens. using vials ONLY.) 4 kit 6 ??? cholecalciferol, Vitamin D3, (VITAMIN D) 1,000 unit Capsule Take by mouth. ??? calcium-vitamin D3 600 mg calcium- 400 unit Tablet Take by mouth. ??? docusate sodium (COLACE) 100 mg Capsule Take 100 mg by mouth 2 times daily. ??? magnesium chloride (SLOW-MAG ORAL) Take by mouth. ??? levothyroxine (SYNTHROID) 75 mcg tablet Take 75 mcg by mouth daily. ??? PARoxetine (PAXIL) 40 mg tablet Take 40 mg by mouth every morning. ??? gabapentin (NEURONTIN) 300 mg capsule Take 700 mg by mouth 3 times daily. Takes 300 mg in the AMand 600 mg in the PM. ??? aspirin 81 mg EC tablet Take 81 mg by mouth daily. ??? lovastatin (MEVACOR) 40 mg tablet Take 40 mg by mouth every morning. ??? metFORMIN (GLUCOPHAGE) 500 mg tablet Take 1,000 mg by mouth 2 times daily (with meals). ALLERGIES Allergies Allergen Reactions ??? Erythromycin Base Abdominal pain ??? Penicillins Hives ??? Plaquenil [Hydroxychloroquine] Reaction unknown ??? Quinine Thrombocytopenia ??? Sulfasalazine Patient not sure about reaction. SOCIAL HISTORY , has 3 kids, with grandchildren. No significant alcohol use. FAMILY HISTORY No known hx of liver disease. PHYSICAL EXAM Vitals: 03/10/19 1419 BP: 119/76 BP Location (NBP): Right arm Patient Position: Sitting BP Cuff Sizes: Adult (25-34 cm) Pulse: 94 Weight: 54.1 kg (119 lb 3.2 oz) Height: 152.4 cm (5') Body mass index is 23.28 kg/m??. Gen: Well appearing, no apparent distress. Skin: no spider angiomata, no palmar erythema, no jaundice. HEENT: Sclerae anicteric, pupils equal, round, react to light. Pharynx unremarkable. Neck is supple,no adenopathy, no thyromegaly. Chest is clear. Heart: Regular rate and rhythm. Normal S1, S2, no murmurs. Abdomen: Normal bowel sounds; soft, non distended. No obvious hepatosplenomegaly. No evidence of ascites Extremities: No edema. Neuro: alert and oriented x3, no asterixis or tremor. Lab Results Component Value Date WBC 5.1 01/02/2019 HGB 13.2 01/02/2019 HCT 39.0 01/02/2019 MCV 94.9 (H) 01/02/2019 PLATELET 97 (L) 01/02/2019 No results for input(s): INR in the last 168 hours. Lab Results Component Value Date ALT 16 01/02/2019 AST 23 01/02/2019 ALKPHOS 55 01/02/2019 BILITOT 0.5 01/02/2019 Chemistry Component Value Date/Time NA 141 01/02/2019 1039 K 4.0 01/02/2019 1039 CL 102 01/02/2019 1039 CO2 24 01/02/2019 1039 BUN 14 01/02/2019 1039 CREATININE 0.73 01/02/2019 1039 Component Value Date/Time CALCIUM 9.8 01/02/2019 1039 ALKPHOS 55 01/02/2019 1039 AST 23 01/02/2019 1039 ALT 16 01/02/2019 1039 BILITOT 0.5 01/02/[address] Chest 01/06/2019: ASSESSMENT/PLAN Shereen Vega is a 68 y.o. female with history of diabetes, hyperlipidemia, psoriatic arthritis and newly diagnosed cirrhosis. Her serum cirrhosis diagnosis is based on CT findings showing cirrhotic appearing liver and intra-abdominal varices. Her platelets are also low. I did not do a FibroScantoday because of the clarity of her cirrhosis diagnosis. The etiology of her cirrhosis is less [...] are normal. 1. Cirrhosis. Etiology possibly ALFARO. Will check MELD labs and blood work today. Child Wallace A. She had questions about prognosis and we discussed that this was difficult to predict, and that she could remain well compensated for many years, especially if the etiology of her cirrhosis (DILI?) is no longer present. She does have signs of portal hypertension with the presence of varices on imaging. 2. Varices surveillance. She should have an upper endoscopy to screen for varices. Plan to schedule today. If large varices are seen would prefer to start nonselective beta-lizzy. 3. HCC surveillance. She should have imaging of her liver every [address] scan in December 2018 did not show any liver lesions. Plan to repeat with ultrasound in June 2019. 4. Preventative health. She should be vaccinated to hepatitis a and B. I will check hepatitis B serologies today. We discussed that she should not take NSAIDs and that it is okay to take up to 2000 mg of Tylenol per day. Plan: - Blood work today - Ultrasound with followup visit in June 2019 - Upper endoscopy next available to screen for varices. IF large varices seen, will start non-selective beta lizzy. Yuriy Ayers APRN Section of Gastroenter[place] [address] Copy: Maricarmen Galvan APRN [address] / [place] [address] documented in this encounter Miscellaneous Notes Addendum Note - Carmen Rodríguez - 03/10/2019 2:00 PM EST Addended by: CARMEN RODRÍGUEZ on: 03/10/2019 03:38 PM Modules accepted: Orders documented in this encounter Plan of Treatment Upcoming Encounters Date Type Specialty Care Team Description 09/11/2021 Appointment Radiology Yuriy Ayers APRN [facility] GASTROENTEROLOGY [place], [place] [address] (Wo rk) 09/11/2021 Laboratory Appointment Lab 09/11/2021 Office Visit Gastroenterology Yuriy Ayers APRN [facility] GASTROENTEROLOG[facility] [place], [place] [address] (Wo rk) 09/11/2021 Office Visit Rheumatology Lorenzo Hermosillo PA [facility] RHEUMATOLOGY [place], [place] [address] (Wo rk) Scheduled Orders Name Type Priority Associated Diagnoses Order S chedule CBC (with Diff) Lab Routine Hepatic cirrhosis, Expect ed: 03/10/2019 unspecified hepatic (Approxi mate), cirrhosis type, Expires: unspecified whether ascites present UPPER GI ENDOSCOPY Procedures Routine Hepatic cirrhosis, Ord ered: 03/10/2019 unspecified hepatic cirrhosis type, unspecified whether ascites present Scheduled Procedures Name Priority Associated Diagnoses Date/Time EGD, UPPER GI ENDOSCOPY Hepatic cirrhosis, unspe cified hepatic cirrhosis type, unspecified whet her ascites present documented as of this encounter Procedures Procedure Name Priority Date/Time Associated Comments Diagnosis HEMOGRAM Routine 03/10/2019 3:44 Hepatic cirrhosis, Result s for this PM EST unspecified hepatic procedur e are in cirrhosis type, the results unspecified whether section. ascites present DIFFERENTIAL, AUTOMATED Routine 03/10/2019 3:44 Hepatic cirrho sis, Results for this PM EST unspecified hepatic procedur e are in cirrhosis type, the results unspecified whether section. ascites present HC HEPATITIS C ANTIBODY Routine 03/10/2019 3:44 Hepatic cirrho sis, Results for this PM EST unspecified hepatic procedur e are in cirrhosis type, the results unspecified whether section. ascites present HC IRON BINDING CAPACITY Routine 03/10/2019 3:44 Hepatic cirrh osis, Results for this PM EST unspecified hepatic procedur e are in cirrhosis type, the results unspecified whether section. ascites present HC A1AT (ALPHA-1 Routine 03/10/2019 3:44 Hepatic cirrhosis, Re sults for this ANTITRYPSIN) PM EST unspecified hepatic procedur e are in cirrhosis type, the results unspecified whether section. ascites present HC PCH MITOCHONDRIAL Routine 03/10/2019 3:44 Hepatic cirrhosis , Results for this ANTIBODY PM EST unspecified hepatic procedur e are in cirrhosis type, the results unspecified whether section. ascites present HC TISSUE Routine 03/10/2019 3:44 Hepatic cirrhosis, Result s for this TRANSGLUTAMINASE AB PM EST unspecified hepatic p rocedure are in cirrhosis type, the results unspecified whether section. ascites present HC ALPHA FETOPROTEIN Routine 03/10/2019 3:44 Hepatic cirrhosis , Results for this TUMOR MARKER PM EST unspecified hepatic procedur e are in cirrhosis type, the results unspecified whether section. ascites present HC PCH SMOOTH MUSCLE AB, Routine 03/10/2019 3:44 Hepatic cirrh osis, Results for this SERUM PM EST unspecified hepatic procedur e are in cirrhosis type, the results unspecified whether section. ascites present HC VENIPUNCTURE Routine 03/10/2019 3:44 Hepatic cirrhosis, Res ults for this PM EST unspecified hepatic procedur e are in cirrhosis type, the results unspecified whether section. ascites present HC HEPATITIS B SURFACE Routine 03/10/2019 3:44 Hepatic cirrhos is, Results for this AG PM EST unspecified hepatic procedur e are in cirrhosis type, the results unspecified whether section. ascites present HC PROTHROMBIN TIME Routine 03/10/2019 3:44 Hepatic cirrhosis, Results for this PM EST unspecified hepatic procedur e are in cirrhosis type, the results unspecified whether section. ascites present HC CBC,PLT & AUTO DIFF Routine 03/10/2019 3:44 Hepatic cirrhos is, PM EST unspecified hepatic cirrhosis type, unspecified whether ascites present HC ANTINUCLEAR Routine 03/10/2019 3:44 Hepatic cirrhosis, Resu lts for this ANTIBODY,SERUM PM EST unspecified hepatic proced ure are in cirrhosis type, the results unspecified whether section. ascites present HC FERRITIN, SERUM Routine 03/10/2019 3:44 Hepatic cirrhosis, Results for this PM EST unspecified hepatic procedur e are in cirrhosis type, the results unspecified whether section. ascites present COMPREHENSIVE METABOLIC Routine 03/10/2019 3:44 Hepatic cirrho sis, Results for this PANEL (NON-FASTING) PM EST unspecified hepatic p rocedure are in cirrhosis type, the results unspecified whether section. ascites present documented in this encounter Results (ABNORMAL) Differential, Automated (03/10/2019 3:44 PM EST) [facility] Method Time Signature Neutrophils % 39.4 % [facility] Neutr Abs (ANC) 2.11 1.70 - [facility] 6.10 [facility] x10(3)/[facility] LABORATORY Lymphocytes % 42.5 % [facility] Lymphocytes Abs 2.3 0.9 - 3.2 [facility] x10(3)/[facility] LABORATORY Monocytes % 8.4 % [facility] Monocyte Abs 0.4 0.3 - 0.9 [facility] x10(3)/[facility] LABORATORY Eosinophils % 8.8 % [facility] Eosinophils Abs 0.5 (H) 0.0 - 0.4 [facility] x10(3)/[facility] LABORATORY Basophils % 0.7 % [facility] Basophils Abs 0.0 0.0 - 0.1 [facility] x10(3)/[facility] LABORATORY Immature Gran % 0.20 % [...] Judy Gran Abs 0.01 0.00 - 0.04 x10(3)/[facility] LABOR[facility] Specimen Anatomical Collection Method Collection Time Receive d Time (Source) Location / / Volume Laterality Blood specimen 03/10/2019 3:44 PM 020 3:59 (specimen) EST PM EST Resulting Agency Comment Spec In Lab Yuriy Ayers APRN HEMATOLOGY ORDERABLES Performing Organization Address City/State/[place] [address] (ABNORMAL) Hemogram (03/10/2019 3:44 PM EST) Analysis Performed At Patho logist Time Signature WBC 5.4 4.0 - 9.5 [facility] x10(3)/[facility] LABORATORY RBC 3.97 (L) 4.00 - [facility] 5.21 [facility] x10(6)/[facility] LABORATORY Hemoglobin 13.1 11.7 - [facility] 15.[facility] gm/dL [facility] Hematocrit 37.8 35.7 - [facility] 45.8 % [facility] MCV 95.2 (H) 82.6 - [facility] 94.4 [facility] LABORATORY MCH 33.0 (H) 27.1 - [facility] 32.0 pg [facility] MCHC 34.7 31.7 - [facility] 35.0 gm/dL [facility] Platelets 103 (L) 145 - 357 [facility] x10(3)/[facility] LABORATORY RDWSD 46.9 (H) 37.0 - [facility] 46.0 [facility] LABORATORY RDWCV 13.3 11.5 - [facility] 14.1 % [facility] MPV 10.4 7.6 - 12.9 [facility] LABORATORY nRBC % Auto 0.0 % [facility] nRBC Abs Auto 0.000 0.000 - [facility] 0.000 [facility] x10(3)/[facility] LABORATORY Specimen Anatomical Collection Method Collection Time Receive d Time (Source) Location / / Volume Laterality Blood specimen 03/10/2019 3:44 PM 020 3:59 (specimen) EST PM EST Resulting Agency Comment Spec In Lab Yuriy Ayers APRN HEMATOLOGY ORDERABLES Performing Organization Address City/[facility] Phon e Number [address] Hepatitis B Surface Antibody (03/10/2019 3:44 PM EST) P athologist Signature HepB Surface <3.5 IU/L [facility] Ab [facility] LABORATORY Comment: HepB Surface Ab Quant: Unvaccinated: < 8.5 IU/L Vaccinated: > 11.5 IU/L HepB Surface Ab Negative [facility] Comment: Patient is presumed to be not vaccinated or immune to HBV infection. Expected Results: Vaccinated: Positive Unvaccinated: Negative Specimen Anatomical Collection Method Collection Time Receive d Time (Source) Location / / Volume Laterality Blood specimen 03/10/2019 3:44 PM 020 3:59 (specimen) EST PM EST Resulting Agency Comment Spec In Lab Yuriy Ayers APRN IMMUNOLOGY ORDERABLES Performing Organization Address City/[facility]/ZIP Code Phon e Number [address] Hepatitis C Antibody (03/10/2019 3:44 PM EST) Analysis Performed At Patho logist Time Signature Hepatitis C Ab Negative Negative [facility] Specimen Anatomical Collection Method Collection Time Receive d Time (Source) Location / / Volume Laterality Blood specimen 03/10/2019 3:44 PM 020 3:59 (specimen) EST PM EST Resulting Agency Comment Spec In Lab Yuriy Ayers APRN IMMUNOLOGY ORDERABLES Performing Organization Address City/State/ZIP Code Phon e Number [place] [phone] Hepatitis B Surface Antigen (03/10/2019 3:44 PM EST) Analysis Performed At Patho logist Time Signature HepB Surface Negative Negative [facility] LABORATORY Specimen Anatomical Collection Method Collection Time Receive d Time (Source) Location / / Volume Laterality Blood specimen 03/10/2019 3:44 PM 020 3:59 (specimen) EST PM EST Resulting Agency Comment Spec In Lab Yuriy Ayers APRN CHEMISTRY ORDERABLES Performing Organization Address City/[facility] Phon e Number [address] Prothrombin Time (03/10/2019 3:44 PM EST) P athologist Signature PT 12.4 9.4 - 12.5 [facility] LABORATORY INR 1.1 [facility] [...] Location / / Volume Laterality Blood specimen 03/10/2019 3:44 PM 020 3:59 (specimen) EST PM EST Resulting Agency Comment Spec In Lab Yuriy Ayers APRN HEMATOLOGY ORDERABLES Performing Organization Address City/[facility] [place] [address] AFP tumor marker (03/10/2019 3:44 PM EST) P athologist Signature AFP <1.9 <=8.3 ng/mL [facility] Specimen Anatomical Collection Method Collection Time Receive d Time (Source) Location / / Volume Laterality Blood specimen 03/10/2019 3:44 PM 020 3:59 (specimen) EST PM EST Resulting Agency Comment Spec In Lab Yuriy Flood Sudheer PATEL CHEMISTRY ORDERABLES Performing Organization Address City/[facility]/ZIP Code Phon e Number [address] Tissue transglutaminase, IgA (03/10/2019 3:44 PM EST) athologist Signature TTG IgA Ab 0.9 0.1 - 10.0 [place] u/ml [facility] Comment: As of 2018, TTG IgA testing perform ed at [facility]. Please note reference range update. Negative = <7 U/mL Equivocal = 7-10 U/mL Positive = >10 U/mL Specimen Anatomical Collection Method Collection Time Receive d Time (Source) Location / / Volume Laterality Blood specimen 03/10/2019 3:44 PM 020 9:18 (specimen) EST AM EST Resulting Agency Comment Spec In Lab Yuriy Flood Sudheer PATEL IMMUNOLOGY ORDERABLES Performing Organization Address City/[facility]/ZIP Code Phon e Number [address] A1AT Serum Concentration (03/10/2019 3:44 PM EST) athologist Signature A1AT 111 90 - 200 [facility] mg/dL [facility] Specimen Anatomical Collection Method Collection Time Receive d Time (Source) Location / / Volume Laterality Blood specimen 03/10/2019 3:44 PM 020 3:59 (specimen) EST PM EST Resulting Agency Comment Spec In Lab Yuriy Flood Sudheer PATEL CHEMISTRY ORDERABLES Performing Organization Address City/[facility]/ZIP Code Phon e Number [address] (ABNORMAL) Ferritin (03/10/2019 3:44 PM EST) athologist Signature Ferritin 23 (L) 30 - 400 [place] ng/mL [facility] Comment: Pediatric reference ranges not verified at [facility], interpret with caution. Reference ranges for females greater diaz n 50 years of age approach values for men, i.e., 30-400 ng/mL. Specimen Anatomical Collection Method Collection Time Receive d Time (Source) Location / / Volume Laterality Blood specimen 03/10/2019 3:44 PM 020 3:59 (specimen) EST PM EST Resulting Agency Comment Spec In Lab Yuriy Bordensusana PATEL CHEMISTRY ORDERABLES Performing Organization Address City/[facility]/ZIP Code Phon e Number [address] Iron and TIBC (03/10/2019 3:44 PM EST) P athologist Signature Iron 108 30 - 150 [facility] mcg/dL [facility] TIBC 329 250 - 450 [facility] mcg/dL [facility] Iron Saturation 33 20 - 50 % [facility] Specimen Anatomical Collection Method Collection Time Receive d Time (Source) Location / / Volume Laterality Blood specimen 03/10/2019 3:44 PM 020 3:59 (specimen) EST PM EST Resulting Agency Comment Spec In Lab Yuriy Aleena Sudheer PATEL CHEMISTRY ORDERABLES Performing Organization Address [facility]/ZIP Code Phon e Number [address] Mitochondrial Antibody, M2 (03/10/2019 3:44 PM EST) P athologist Signature Mitochon Ab <0.1 <0.1 [facility] (Negative) [facility] Comment: Test Performed by: [facility] [address] [place] [address] Custodial Officer: Aris Mcgrath M.D. Ph. D.; CLIA# [id number] Specimen Anatomical Collection Method Collection Time Receive d Time (Source) Location / / Volume Laterality Blood specimen 03/10/2019 3:44 PM 020 9:07 (specimen) EST AM EST Resulting Agency Comment Spec In Lab Yuriy Aleena Sudheer PATEL IMMUNOLOGY ORDERABLES Performing Organization Address City/[facility]/ZIP [facility] Phon e Number [address] LEO ([facility]/CGP) (03/10/2019 3:44 PM EST) athologist Signature LEO Neg Neg [facility] Comment: Anti-nuclear antibodies were te sted using an indirect immunofluorescent assay. Specimen Anatomical Collection Method Collection Time Receive d Time (Source) Location / / Volume Laterality Blood specimen 03/10/2019 3:44 PM 020 9:18 (specimen) EST AM EST Resulting Agency Comment Spec In Lab Yuriy Ayers JORGE IMMUNOLOGY ORDERABLES Performing Organization Address City/[facility]/ZIP Code Phon e Number [place] [phone] [facility] [address] Smooth Muscle Antibody (03/10/2019 3:44 PM EST) athologist Signature Sm Muscle Ab Negative Negative [facility] Comment: ADDITIONAL INFORMATIO N This test was developed and its performa nce characteristics determined by [facility] in a manner co nsistent with CLIA requirements. This test has not been jarret ared or approved by the U.S. Food and Drug Administration. Test Performed by: [facility] [address] [place] [address] Custodial Officer: Aris Mcgrath M.D. Ph. D.; CLIA# [id number] Specimen Anatomical Collection Method Collection Time Receive d Time (Source) Location / / Volume Laterality Blood specimen 03/10/2019 3:44 PM 020 9:07 (specimen) EST AM EST Resulting Agency Comment Spec In Lab Yuriy Flood Sudheer PATEL IMMUNOLOGY ORDERABLES Performing Organization Address City/[facility]/[place] [address] (ABNORMAL) Comprehensive metabolic panel (non-fasting) (03/10/2019 3:44 PM EST) athologist Signature Glucose Lvl 134 65 - 199 [facility] mg/dL [facility] Comment: Diabetes: >=200 mg/dL plus symp toms BUN 11 8 - 18 mg/dL [facility] Creatinine 0.65 (L) 0.70 - 1.20 mg/dL [facility] Sodium 140 135 - 145 mmol/L [facility] Potassium 4.0 3.5 - 5.0 mmol/L [facility] Comment: Please note: ??Patients with WBC >100,00 0 may have falsely elevated Potassium levels. ??For accurate Potassium quantif ication in these patients send serum separator tube (gold top) for subsequent determinations. ??Contact the Clinical Chemistry Laboratory if there are any qu estions. Chloride 100 98 - 107 mmol/L [facility] CO2 26 22 - 31 mmol/L [facility] Anion Gap 14 5 - 15 mmol/L [facility] Calcium 10.1 8.5 - 10.5 mg/dL [facility] Total Protein 8.1 (H) 6.1 - 8.0 gm/dL [facility] Albumin 4.3 3.2 - 5.2 gm/dL [facility] AST 32 (H) 0 - 30 unit/L [facility] ALT 21 0 - 30 unit/L [facility] Alk Phos 50 35 - 105 unit/L [facility] Total Bilirubin 0.4 0.2 - 1.3 mg/dL [facility] Estimated GFR 91 >=60 mL/min/1.73 m?? [facility] Comment: The eGFR was calculated using the CKD-EP I equation. As with all creatinine based estimates of kidney function, eGFR values calculated with the CKD-EPI equation are not accurate in patients wi th acute kidney failure, extremes of body mass or the acutely ill. [email or web address]/[facility] eGFR 105 >=60 mL/min/1.73 m?? [facility] Comment: The eGFR was calculated using the CKD-EP I equation. As with all creatinine based estimates of kidney function, eGFR values calculated with the CKD-EPI equation are not accurate in patients wi th acute kidney failure, extremes of body mass or the acutely ill. [email or web address]/[facility] Specimen Anatomical Collection Method Collection Time Receive d Time (Source) Location / / Volume Laterality Blood specimen 03/10/2019 3:44 PM 020 3:59 (specimen) EST PM EST Resulting Agency Comment Spec In Lab Yuriy Ayers APRN CHEMISTRY ORDERABLES Performing Organization Address City/State/[place] [address] documented in this encounter Visit Diagnoses Diagnosis Hepatic cirrhosis, unspecified hepatic c irrhosis type, unspecified whether ascites present documented in this encounter Care Teams Console Operator Relationship Specialty Start Date End Date Maricarmen Galvan APRN PCP - General Family Medicine 05/10/18 [address] [place] [address] documented as of this encounter
--- OUTSIDE RECORDS SUMMARY | 2021-09-05 01:09 | XMS_ITS | Encounter Summary ---
:1950 Author Organization [facility] [place] [address] Care Team Providers Name Role Phone Maricarmen Galvan JORGE Primary Care Provider Reason for Visit Reason Onset Date Comments Appointment 12/13/2019 Encounter Details Date Type Department Care Team Description 12/13/2019 Telephone Rheumatology at [facility] Shoaib Casey, [place] [address] Social History Tobacco Use Types Packs/Day Years Used Date Never Smoker Smokeless Tobacco: Never Used Alcohol Use Standard Drinks/Week Comments No 0 (1 standard drink = 0.6 oz pure alcoho l) Sex Assigned at Date Recorded Not on file documented as of this encounter Miscellaneous Notes Telephone Encounter - Shoaib Casey RN - 12/13/2019 2:27 PM EDT Patient calls clinic for an appointment. Humira injections are painful and difficult for patient. Patient would like alternate therapy. Transferred to scheduling for appointment needs and will update provider. documented in this encounter Plan of Treatment Upcoming Encounters Date Type Specialty Care Team Description 09/11/2021 Appointment Radiology Tory Willard APRN [facility] GASTROENTEROLOGY [place], [place] [address] (Juhi garner) 09/11/2021 Laboratory Appointment Lab 09/11/2021 Office Visit Gastroenterology Tory Willard APRN [facility] GASTROENTEROLOGY [place], [place] [address] (Wo rk) 09/11/2021 Office Visit Rheumatology Lorenzo Hermosillo PA [facility] DR THOMAS [place], [place] [address] (Wo rk) Scheduled Procedures Name Priority Associated Diagnoses Date/Time EGD, UPPER GI ENDOSCOPY Hepatic cirrhosis, unspe cified hepatic cirrhosis type, unspecified whet her ascites present documented as of this encounter Visit Diagnoses Not on filedocumented in this encounter Care Teams Side Panel Hanger Relationship Specialty Start Date End Date Maricarmen Galvan APRN PCP - General Family Medicine 05/10/18 [address] [place] [address] documented as of this encounter
--- OUTSIDE RECORDS SUMMARY | 2021-09-05 01:09 | XMS_ITS | Encounter Summary ---
:1950 Author Organization [facility] Address [place] [address] Care Team Providers Name Role Phone Maricarmen Galvan CAPONIZER Primary Care Provider Encounter Details Date Type Department Care Team Description 07/25/2019 [place] [facility] [place]am Dee EGD, UPPER GI [facility] [place] [address] [facility] [phone] DR GASTROENTEROLOGY [place] [address] (Wo rk) Social History Tobacco Use Types Packs/Day Years Used Date Never Smoker Smokeless Tobacco: Never Used Alcohol Use Standard Drinks/Week Comments No 0 (1 standard drink = 0.6 oz pure alcoho l) Sex Assigned at Date Recorded Not on file documented as of this encounter Last Filed Vital Signs Vital Sign Reading Time Taken Comments Blood Pressure 129/73 07/25/2019 10:33 AM EDT Pulse 98 07/25/2019 10:33 AM EDT Temperature 36.7 ??C (98.1 ??F) 07/25/2019 10:33 AM EDT Respiratory Rate - - Oxygen Saturation 98% 07/25/2019 10:33 AM EDT Inhaled Oxygen Concentration - - Weight [...] the day after the procedure, use an urfb-rtq-ngyqbcy spray to numb yourthroat. Sucking on throat [...] occurs, please contact your Doctor. Please call [phone] before 8pm Mon-Fri with problems, questions or concerns. If you call after 8pm or on weekends, call the Hospital at [phone] and ask to speak to the Summer Law Clerk instructional technology coordinator and the stretcher drier operator will contact that person for you. When should you call for help? Call [phone] anytime you think you may need emergency [...] any problems. Where can you learn more? [facility] View your After Visit Summary and more online at [email or web address] If you would like to provide feedback about your hospital experience, please call the Office of Patient and Family Relations at . If you have received this After Visit Summary in error, please immediately return it in person to the department, or notify the [facility] Privacy Office by calling toll free at between the hours of 8AM and 5PM to arrange for our retrieval of the documents at no cost to you. Content Version: 12.2 ?? [id number] [employer]. Care instructions adapted under license by [facility]. If you have questions about a medical condition or this instruction, always ask your healthcare professional. [employer] disclaims any warranty or liability for your [...] 2 g topically 2 100 g 3 11/ 12/2018 08/05/2020 1 % Gel times daily as needed. [...] complication. Informed Consent signed by patient (or housing management representative). documented in this encounter Plan of Treatment Upcoming Encounters Date Type Specialty Care Team Description 09/11/2021 Appointment Radiology Tory Willard APRN [facility] GASTROENTEROLOGY [place], [place] [address] (Wo rk) 09/11/2021 Laboratory Appointment Lab 09/11/2021 Office Visit Gastroenterology Tory Willard APRN [facility] GASTROENTEROLOGY [place], [place] [address] (Wo rk) 09/11/2021 Office Visit Rheumatology Lorenzo Hermosillo PA [facility] RHEUMATOLOGY [place], [place] [address] (Wo rk) Scheduled Procedures Name [...] Component Value Ref Test Analysis Performed At [facility] Range Method Time Signature UPPER GI [facility] PROVATION ENDOSCOPY Endoscopy Procedure Date: 07/25/2019 11:05 AM ? Patient Name: Shereen Vega ? Date of : 1950 ? Age: 69 ? Order #: [id number] ? Instrument Name: [id number] ? Procedure: ? Upper GI endoscopy Indications: ? Cirrhosis rule out esophageal varic es Providers: ? Azam Dee MD, Rigo Montoya ? Isaiah Weaver Shan non J. ? MD Humberto Referring : ?Maricarmen Galvan Medicines: ? Fentanyl 50 micrograms IV, Midazol [...] to the ? procedure by the physician, gilberto iverson nurse ? and the sterilisation technician. The proce herb was ? verified [...] Laterality 07/25/2019 11:05 AM EDT Maricarmen Galvan CAPONIZER GENERAL SURGICAL ORDERABLES Performing Organization Address City/[facility]/ZIP Code Phon e Number PROVATION (ABNORMAL) POCT Glucose (07/25/2019 10:42 AM EDT) P athologist Signature POC Glucose 223 (H) 65 - 199 [facility] mg/dL [facility] Comment: Supplemental ranges: <140 mg/dL before meals <180 mg/dL all other times of the day Specimen Anatomical Collection Method Collection Time Receive d Time (Source) Location / / Volume Laterality Blood specimen 07/25/2019 10:42 0 (specimen) AM EDT 10:42 AM EDT Azam Dee MD POINT OF CARE TEST ORDERABLE S Performing Organization Address City/State/[place] [address] documented in this encounter Visit Diagnoses Diagnosis Hepatic cirrhosis, unspecified hepatic c irrhosis type, unspecified whether ascites present documented in this encounter Administered Medications Inactive Administered Medications - up to 3 most recent administrations Medication Order MAR Action Action Date Dose Rate Site fentaNYL 50 mcg/mL multi-dose Given 07/25/2019 12:12 PM EDT 50 m cg injection ONCE PRN, Starting on Wed07/25/19 at 1212, Until Wed07/25/19 at 1547, Intra-Operative (Intra-Procedure), Routine lactated ringers infusion New Bag 07/25/2019 10:49 AM EDT 100 mL/hr 100 mL/hr 100 mL/hr, Intravenous, CONTINUOUS, Starting on 07/25/19 at 1045, Until 07/25/19 at 1327, Endoscopy (Day of Procedure) midazolam (PF) (VERSED) multi-dose injec tion Given 07/25/2019 12:17 PM EDT 1 mg ONCE PRN, Starting on 07/25/19 at 1212, Until 07/25/19 at 1547, Intra-Operative (Intra-Procedure), Routine Given 07/25/2019 12:12 PM EDT 1 mg documented in this encounter Active and Recently Administered Medications Times are shown in EDT. Continuous Medication Order 07/23/2019 07/24/2019 07/25/2019 lactated ringers infusion (CANCELED) 1049 (New Bag - Provider: Brooklyn Coker RN) 100 mL/hr, at 100 mL/hr, Intravenous, CO NTINUOUS, Starting 07/25/19 at 1045, Until 07/25/19 at 1327, Endo (Day of Procedure) PRN Medication Order 07/23/2019 07/24/2019 07/25/2019 fentaNYL 50 mcg/mL multi-dose injection (CANCELED) 1212 (Given - Provider: Rigo Weaver RN) ONCE PRN, Starting Tue 620 at 1212, U ntil Tue //20 at 1547, Intra-Operative (Intra-Procedure), Routine midazolam (PF) (VERSED) multi-dose injection (CANCELED) 1212 (Given - Provider: Rigo Weaver RN)1217 (Given - Provider: Rigo Weaver, RN) ONCE PRN, Starting Tue 620 at 1212, U ntil 6/2/20 at 1547, Intra-Operative (Intra-Procedure), Routine documented in this encounter Care Teams Video Clerk Relationship Specialty Start Date End Date Maricarmen Galvan, CAPONIZER PCP - General Family Medicine 05/10/18 [address] [place] [address] documented as of this encounter
--- OUTSIDE RECORDS SUMMARY | 2021-09-05 01:09 | XMS_ITS | Encounter Summary ---
:1950 Author Organization [facility] [place] [place] [address] Care Team Providers Name Role Phone Maricarmen Galvan ROOFING CONTRACTOR Primary Care Provider Encounter Details Date Type Department Care Team Description 12/15/2019 Specialty Pharmacy Pharmacy at [facility] Marina Garces RPH [facility] [place] [address] Social History Tobacco Use Types Packs/Day Years Used Date Never Smoker Smokeless Tobacco: Never Used Alcohol Use Standard Drinks/Week Comments No 0 (1 standard drink = 0.6 oz pure alcoho l) Sex Assigned at Date Recorded Not on file documented as of this encounter Progress Notes Marina Garces RPH - 12/15/2019 10:01 AM EDT [facility] Assistance Referral [facility] has looked into [...] questions. Patient: Shereen Vega : 1950 Medication: Humira 40 mg pens Dosin mg SQ every 14 days Insurance: No prescription insurance Medicare Part D?: No Marina Garces RPH 12/15/19 10:01 AM documented in this encounter Plan of Treatment Upcoming Encounters Date Type Specialty Care Team Description 09/11/2021 Appointment Radiology Tory Willard APRN [facility] GASTROENTEROLOGY [place], [place] [address] (Wo rk) 09/11/2021 Laboratory Appointment Lab 09/11/2021 Office Visit Gastroenterology Tory Willard APRN [facility] GASTROENTEROLOGY [place], [place] [address] (Wo rk) 09/11/2021 Office Visit Rheumatology Lorenzo Hermosillo, SHARITA [facility] RHEUMATOLOGY [place], [place] [address] (Wo rk) Scheduled Procedures Name Priority Associated Diagnoses Date/Time EGD, UPPER GI ENDOSCOPY Hepatic cirrhosis, unspe cified hepatic cirrhosis type, unspecified whet her ascites present documented as of this encounter Visit Diagnoses Not on filedocumented in this encounter Care Teams Cfo Controller Relationship Specialty Start Date End Date Maricarmen Galvan APRN PCP - General Family Medicine 05/10/18 [address] [place] [address] documented as of this encounter
--- OUTSIDE RECORDS SUMMARY | 2021-09-05 01:09 | XMS_ITS | Encounter Summary ---
:1950 Author Organization [place] [address] Care Team Providers Name Role Phone Maricarmen Galvan OYSTER UNLOADER Primary Care Provider Encounter Details Date Type Department Care Team Description 07/06/2019 Refill Rheumatology at [facility] Manny Lugo, Psoriatic arthritis [facility] [place] [address] [facility] [phone] RHEUMATOLOGY [place]P [place], [place] [address] (Wo rk) Social History Tobacco [...] Tory Willard APRN [facility] [place]ENT[place]YRONE [place], [place] [address] (Wo rk) 09/11/2021 Laboratory Appointment Lab 09/11/2021 Office Visit Gastroenterology Tory Willard APRN [facility] GASTROENTEROLOGY [place], [place] [address] (Wo rk) 09/11/2021 Office Visit Rheumatology Lorenzo Hermosillo PA [facility] DR THOMAS [place], [place] [address] (Wo rk) Scheduled Procedures Name Priority Associated Diagnoses Date/Time EGD, UPPER GI ENDOSCOPY Hepatic cirrhosis, unspe cified hepatic cirrhosis type, unspecified whet her ascites present documented as of this encounter Visit Diagnoses Diagnosis Psoriatic arthritis Psoriatic arthropathy documented in this encounter Care Teams Road Grader Operator Relationship Specialty Start Date End Date Maricarmen Galvan APRN PCP - General Family Medicine 05/10/18 [address] [place] [address] documented as of this encounter
--- OUTSIDE RECORDS SUMMARY | 2021-09-05 01:09 | XMS_ITS | Encounter Summary ---
:1950 [place] [address] Care Team Providers Name Role Phone Maricarmen Galvan JORGE Primary Care Provider Encounter Details Date Type Department Care Team Description 07/06/2019 Specialty Pharmacy Pharmacy at [facility] [place] [address] Social History Tobacco Use Types Packs/Day [...] Radiology Tory Willard APRN [facility] GASTROENTERTYRONE [place], [place] [address] (Wo rk) 09/11/2021 Laboratory Appointment Lab 09/11/2021 Office Visit Gastroenterology Tory Willard APRN [facility] GASTROENTERTYRONE [place], [place] [address] (Wo rk) 09/11/2021 Office Visit Rheumatology Lorenzo Hermosillo PA [facility] RHEUMATOLOGY [place], [place] [address] (Wo rk) Scheduled Procedures Name Priority Associated Diagnoses Date/Time EGD, UPPER GI ENDOSCOPY Hepatic cirrhosis, unspe cified hepatic cirrhosis type, unspecified whet her ascites present documented as of this encounter Visit Diagnoses Not on filedocumented in this encounter Care Teams Corrections Lieutenant Relationship Specialty Start Date End Date Maricarmen Galvan, JORGE PCP - General Family Medicine 05/10/18 [address] [place] [address] documented as of this encounter
--- OUTSIDE RECORDS SUMMARY | 2021-09-05 01:09 | XMS_ITS | Encounter Summary ---
:1950 Author Organization [facility] [place] [address] Care Team Providers Name Role Phone Maricarmen Galvan JORGE Primary Care Provider Encounter Details Date Type Department Care Team Description 06/28/2019 Telephone Gastroenterology at [facility] Analia Geronimo [facility] [place] [address] Social History Tobacco Use Types Packs/Day Years Used Date Never Smoker Smokeless Tobacco: Never Used Alcohol Use Standard Drinks/Week Comments No 0 (1 standard drink = 0.6 oz pure alcoho l) Sex Assigned at Date Recorded Not on file documented as of this encounter Miscellaneous Notes Telephone Encounter - Analia Geronimo - 06/28/2019 11:56 AM EDT Called pt regarding her upcoming 07/10 appts, for an ultrasound and follow up with Tory. Pt states her endoscopy last month was also cancelled, so she would like to wait until that has been rescheduled, then reschedule the follow up with Tory and US. That way Tory will have the results from everything. She doesn't see any point in doing a follow up at this time without any of those results. Advised pt to call us if she needs anything in the meantime and I will put in a recall as a reminder for July/August, post COVID. documented in this encounter Plan of Treatment Upcoming Encounters Date Type Specialty Care Team Description 09/11/2021 Appointment Radiology Tory Willard APRN [facility] ER DR GASTROENTEROLOGY [place], [place] [address] (Wo rk) 09/11/2021 Laboratory Appointment Lab 09/11/2021 Office Visit Gastroenterology Tory Willard APRN [facility] GASTROENTEROLOGY [place], [place] [address] (Wo rk) 09/11/2021 Office Visit Rheumatology Lorenzo Hermosillo PA [facility] RHEUMATOLOGY [place], [place] [address] (Wo rk) Scheduled Procedures Name Priority Associated Diagnoses Date/Time EGD, UPPER GI ENDOSCOPY Hepatic cirrhosis, unspe cified hepatic cirrhosis type, unspecified whet her ascites present documented as of this encounter Visit Diagnoses Not on filedocumented in this encounter Care Teams Internal Review And Audit Compliance Relationship Specialty Start Date End Date Maricarmen Galvan APRN PCP - General Family Medicine 05/10/18 [address] [place] [address] documented as of this encounter
--- OUTSIDE RECORDS SUMMARY | 2021-09-05 01:09 | XMS_ITS | Encounter Summary ---
:1950 [place] [address] Care Team Providers Name Role Phone Maricarmen Galvan JORGE Primary Care Provider Encounter Details Date Type Department Care Team Description 12/29/2018 Specialty Pharmacy Pharmacy at [facility] Jonathan Morris [facility] [place] [address] Social History Tobacco Use Types Packs/Day Years Used Date Never Smoker Smokeless Tobacco: Never Used Alcohol Use Standard Drinks/Week Comments No 0 (1 standard drink = 0.6 oz pure alcoho l) Sex Assigned at Date Recorded Not on file documented as of this encounter Plan of Treatment Upcoming Encounters Date Type Specialty Care Team Description 09/11/2021 Appointment Radiology Tory Willard APRN [facility] GASTROENTEROLOGY [place], [place] [address] (Wo rk) 09/11/2021 Laboratory Appointment Lab 09/11/2021 Office Visit Gastroenterology Tory Willard APRN [facility] GASTROENTERTYRONE [place], [place] [address] (Wo rk) 09/11/2021 Office Visit Rheumatology Lorenzo Hermosillo PA [facility] RHEUMATOLOGY [place], [place] [address] (Wo rk) Scheduled Procedures Name Priority Associated Diagnoses Date/Time EGD, UPPER GI ENDOSCOPY Hepatic cirrhosis, unspe cified hepatic cirrhosis type, unspecified whet her ascites present documented as of this encounter Visit Diagnoses Not on filedocumented in this encounter Care Teams Pick Up Relationship Specialty Start Date End Date Maricarmen Galvan, JORGE PCP - General Family Medicine 05/10/18 [address] [place] [address] documented as of this encounter
--- OUTSIDE RECORDS SUMMARY | 2021-09-05 01:10 | XMS_ITS | Encounter Summary ---
:1950 [place] [address] Care Team Providers Name Role Phone Marina Montague MD Primary Care Provider Encounter Details Date Type Department Care Team Description 06/15/2011 Orders Only Neurology at [facility] Marquez Foley MD [facility] [address] [place] [address] NEUROLOGY DEPT. [phone] [place], [place] [address] (Wo rk) Social History Tobacco Use Types Packs/Day Years Used Date Never Assessed Sex Assigned at Date Recorded Not on file documented as of this encounter Plan of Treatment Upcoming Encounters Date Type Specialty Care Team Description 09/11/2021 Appointment Radiology Tory Willard APRN [facility] GASTROENTEROLOGY [place], [place] [address] (Wo rk) 09/11/2021 Laboratory Appointment Lab 09/11/2021 Office Visit Gastroenterology Tory Willard APRN [facility] GASTROENTEROLOGY [place], [place] [address] (Wo rk) 09/11/2021 Office Visit Rheumatology Lorenzo Hermosillo PA [facility] RHEUMATOLOGY [place], [place] [address] (Wo rk) Scheduled Procedures Name Priority Associated Diagnoses Date/Time EGD, UPPER GI ENDOSCOPY Hepatic cirrhosis, unspe cified hepatic cirrhosis type, unspecified whet her ascites present documented as of this encounter Procedures Procedure Name Priority Date/Time Associated Diagnosis Comme nts FILM LIBRARY Routine 06/15/2011 1:28 PM Results f or this STORAGE ONLY MR EDT procedure ar e in SPINE the results section. documented in this encounter Results FILM LIBRARY- STORAGE ONLY MR [facility] (06/15/2011 1:28 PM EDT) Specimen (Source) Anatomical Collection Method Collection Time Re ceived Time Location / / Volume Laterality 06/15/2011 1:28 PM EDT Narrative RAD - 08/18/2013 1:35 AM EDT This is a non-reportable exam. Procedure Note Jcarlos Mo - 08/18/2013Formatting of t his note might be different from the original. This is a non-reportable exam. Marquez Foley MD IMG FILM LIBRARY ORDERABLES Performing Organization Address City/State/[facility] Code Phon e Number [facility] [address] [facility] [place] [address] documented in this encounter Visit Diagnoses Not on filedocumented in this encounter Care Teams Dive Supervisor Relationship Specialty Start Date End Date Marina Montague MD PCP - General 01/14/10 12/15/11 [address] [place] [address] documented as of this encounter
--- OUTSIDE RECORDS SUMMARY | 2021-09-05 01:10 | XMS_ITS | Encounter Summary ---
:1950 Author Organization [facility] Address [facility] [address] [place] [address] Care Team Providers Name Role Phone Jeanna Smith JORGE Primary Care Provider Reason for Referral Surgical (Routine) - Closed Specialty Diagnoses / Procedures Referred By Contact Refer red To Contact Neurosurgery Diagnoses Cervical spondylosis with myelopathy Marquez Foley MD Ball, Perry A, MD [facility] NEUROLOGY [place] [address] [place] [address] Fax: Referral ID Status Reason Start Date Expiration Date Visits V isits Requested Authorized [id number] Closed Consult, 12/16/2011 06/13/2012 1 1 Test & Treat Encounter Details Date Type Department Care Team Description 12/16/2011 Follow-Up Neurology at [facility] Marquez Foley MD Cervical spondylosis with myelopathy (Pr imary Dx); [facility] [address] [place] [address] NEUROLOGY DEPT. [phone] [place], [place] [address] (Wo rk) Social History Tobacco Use Types Packs/Day Years Used Date Never Smoker Smokeless Tobacco: Never Used Alcohol Use Standard Drinks/Week Comments No 0 (1 standard drink = 0.6 oz pure alcoho l) Sex Assigned at Date Recorded Not on file documented as of this encounter Last Filed Vital Signs Vital Sign Reading Time Taken Comments Blood Pressure 93/51 12/16/2011 9:56 AM EDT Pulse 90 12/16/2011 9:56 AM EDT Temperature - - Respiratory Rate - - Oxygen Saturation - - Inhaled Oxygen Concentration - - Weight 49.9 kg (110 lb) 12/16/2011 9:56 AM EDT Height 154.9 cm (5' 1) 12/16/2011 9:56 AM EDT Body Mass Index 20.78 12/16/2011 9:56 AM EDT documented in this encounter Progress Notes Marquez Foley MD - 12/16/2011 10:17 AM EDT [facility] Note Patient ID: Shereen Vega is a 61 y.o. year old female who presents in follow-up for gait difficulty In the setting of the following problem list: Patient Active Problem List Diagnoses Code ??? Balance problem 781.99BH ??? Transient global amnesia 437.7 ??? Hypertension 401.9AJ ??? Hyperlipidemia 272.4S ??? Hypothyroidism 244.9AP ??? Psoriatic arthritis 696.0G ??? Osteoarthritis 715.90AN ??? Cervical spondylosis 721.0D ??? Social anxiety disorder 300.23A ??? Menopause, premature 256.31E ??? 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 Chronic constipation 564.00E ??? Dysosmia 781.1B Subjective Patient Active Problem List Diagnoses ??? Hypertension ??? Hyperlipidemia ??? Hypothyroidism ??? Psoriatic arthritis On methotrexate as well as Humira started early 2010 ??? Osteoarthritis ??? Cervical spondylosis MRI of the cervical spine without contrast obtained June 15 2011 prominent disc osteophyte at C2-C3 and to a lesser extent at C3-C4, with central canal stenosis greatest at C2-C3. Cord signal is reportedly normal although upon my reading, there certainly relative areas of increased signal intensity surrounding the site of greatest stenosis. ??? Social anxiety disorder History of ??? Menopause, premature At age 34 ??? Chronic constipation ??? Dysosmia ??? Balance problem Onset 02/2011. Had to stop physical therapy because of transportation problems. ??? 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 Differential diagnosis includesthe following: ?? Early stage or mild cervical stenosis, or narrowing of the canal spinal cord passes through the level of C2-C3. This is supported by some mild symptoms of hyperreflexia, (crossed adductors R>L). The exam however is not entirely consistent with that (neutral toes), and is not a definite explanation. ?? Another possibility is that she can have low vitamin B12 levels. This can also cause balance problems. Will need to followup and confirm the levels of methylmalonic acid, and laboratory tests that Dr. Kilpatrick had previously obtained. ?? A third possibility is autoimmune, such as anti-gliadin antibodies, commonly seen in patients whohave gluten sensitivity. There is a laboratory test as well, but I will hold off until we obtain theinitial studies. ?? In addition, we should obtain evaluation by electrical studies of the spinal cord which I will order today. We will see whether we can do this today as well. Cervical spondylosis Last Visit Note 08/12/2011 Office Visit Signed WedAug 18, 2011 4:51 PM by Marquez Foley MD My greatest concern is that this is cervical spondylosis with early signs of myelopathy. Recommend obtaining somatosensory evoked potentials in other neurophysiologic studies to characterize the conduction along the spinal cord. Chronic constipation Dysosmia Hyperlipidemia Hypertension Hypothyroidism Menopause, premature Osteoarthritis Psoriatic arthritis Social anxiety disorder Transient global amnesia Interval history: Here for follow up. She just had her somatosensory evoked potential. Fell off the stairs yesterday, didn't hurt herself. Situation about the same. She trips up the stairs a lot lately. She still has a balance problem. Adverse reactions/allergies: Allergies Allergen Reactions ??? Quinine Thrombocytopenia ??? Penicillins Hives ??? Erythromycin Base Abdominal pain Current medications: Current outpatient prescriptions Medication Sig Dispense Refill ??? UNABLE TO FIND Take 2.5 mg by mouth once a week. Taking 5 mg of Methotrexin. ??? levothyroxine (SYNTHROID) 75 mcg tablet Take 75 mcg by mouth daily. ??? TRAMADOL HCL (TRAMADOL ORAL) Take 50 mg by mouth every morning. Takes at bedtime if needed. ??? PARoxetine (PAXIL) 40 mg tablet Take 40 mg by mouth every morning. ??? atenolol (TENORMIN) 25 mg tablet Take 25 mg by mouth daily. ??? ADALIMUMAB (HUMIRA PEN SUBQ) Inject 40 mg subcutaneously every 14 days. ??? gabapentin (NEURONTIN) 300 mg capsule Take 300 mg by mouth 2 times daily. Takes 300 mg in the AMand 600 mg in the PM. ??? leveTIRAcetam (KEPPRA) 500 mg tablet Take 250 mg by mouth 2 times daily. ??? celecoxib (CELEBREX) 100 mg capsule Take 100 mg by mouth 2 times daily. ??? aspirin 81 mg EC tablet Take 81 mg by mouth daily. ??? lovastatin (MEVACOR) 40 mg tablet Take 40 mg by mouth every morning. ??? metFORMIN (GLUCOPHAGE) 500 mg tablet Take 1,000 mg by mouth 2 times daily (with meals). Interval FHx: reviewed. No changes to note No family history on file. Family Status Relation Status Age ??? Father type I diabetes ??? Sister 54 muscular dystrophy, diagnosed late in her 50s ??? Brother Alive parkinson's disease for 20 years (cleaned up hazardous waste spills) ??? Sister Alive 61,lately developed type II ??? Brother Alive 60, alcohol and heart disease ??? Sister Alive 59, diabetes type I ??? Sister Alive 58, thyroid ??? Sister Alive 57, Alive and well ??? Sister Alive 49, Alive and well ??? Daughter 42, alive ??? Grandchild type I diabetes ??? Son 41, good health, overweight ??? Son 39 ??? Grandchild 2 years old Interval SHx: No significant updates. History Social History ??? Marital Status: Spouse Name: N/A Number of Children: N/A ??? Years of Education: N/A Social History Main Topics ??? Smoking status: Never Smoker ??? Smokeless tobacco: Never Used ??? Alcohol Use: No ??? Drug Use: No ??? Sexually Active: Deferred Other Topics Concern ??? Exercise Yes cannot because of her balance problem Social History Narrative Born in [place], grew up there and went to high school in [place], did not graduate, and her current , 43 years ago. And have three children. She stayed at home to raise her children. Objective: Filed Vitals: 12/16/11 0956 BP: 93/51 Pulse: 90 Height: 154.9 cm (5' 1) Weight: 49.896 kg (110 lb) Petite, pleasant. Intact, conversant. Normal ocular versions. Normal facial sensation and strength Motor examination: Proximally and distally in the upper and lower extremities. Normal tone. No muscle atrophy. No fasciculations. Sensory examination: No sensory level. Deep tendon reflexes: Brisk biceps and patellar. Positive Hall's. Upgoing toes bilaterally. Coordination: Intact finger to nose and [id number]. Gait examination: Ataxic gait. Unable to perform tandem. Imaging and data: MRI reviewed with Dr. Wagner. Congenital fusion with degenerative changes at C2-C3 with moderate to severe stenosis with cord signal. Somatosensory evoked potential was normal. Assessment and Plan: Cervical spondylosis - MARQUEZ FOLEY MD 12/19/11 08:12 AM Signed The emerging picture is that of cervical stenosis with myelopathy. Recommended B12, other myelopathic labs. Recommend referral to neurosurgery for evaluation. documented in this encounter Miscellaneous Notes Assessment & Plan Note - Marquez Foley MD - 12/19/2011 8:12 AM EDTAssociated Problem(s): Cervical spondylosis The emerging picture is that of cervical stenosis with myelopathy. Recommended B12, other myelopathic labs. Recommend referral to neurosurgery for evaluation. documented in this encounter Plan of Treatment Upcoming Encounters Date Type Specialty Care Team Description 09/11/2021 Appointment Radiology Tory Willard, R[facility] GASTROENTEROLOGY [place], [place] [address] (Wo rk) 09/11/2021 Laboratory Appointment Lab 09/11/2021 Office Visit Gastroenterology Tory Willard APRN [facility] GASTROENTEROLOGY [place], [place] [address] (Wo rk) 09/11/2021 Office Visit Rheumatology Lorenzo Hermosillo PA [facility] RHEUMATOLOGY [place], [place] [address] (Wo rk) Scheduled Procedures Name Priority Associated Diagnoses Date/Time EGD, UPPER GI ENDOSCOPY Hepatic cirrhosis, unspe cified hepatic cirrhosis type, unspecified whet her ascites present Scheduled Referrals Name Type Priority Associated Diagnoses Order S chedule Referral to Outpatient Referral Routine Cervical spondylosis Ordered: Neurosurgery with myelopathy 12/16/2011 documented as of this encounter Procedures Procedure Name Priority Date/Time Associated Comments Diagnosis METHYLMALONIC ACID, Routine 12/16/2011 11:11 Cervical Resu lts for this SERUM AM EDT spondylosis with procedure a re in myelopathy the results section. HOMOCYSTEINE TOTAL, Routine 12/16/2011 11:11 Cervical Resu lts for this PLASMA AM EDT spondylosis with procedure a re in myelopathy the results section. VITAMIN B12 Routine 12/16/2011 11:11 Cervical Results for this AM EDT spondylosis with procedure a re in myelopathy the results section. documented in this encounter Results MRI cervical spine with/WO contrast (12/28/2011 2:14 PM EST) Anatomical Region Laterality Modality C-spine Magnetic Resonance Specimen (Source) Anatomical Collection Method Collection Time Re ceived Time Location / / Volume Laterality 12/28/2011 2:14 PM EST Narrative 01/01/2012 10:10 AM EST Examination MR C spine W WO Raul Clinical History C2-C3 cervical stenosis with myelopathic findings Evaluate for progression compared to 02/22 Comparison Outside MR studies dated June 14 and Ap ril 11 are available for comparison. Technique We obtained multi sequence multiplanar v iews of the cervical region both before and after the intravenous injection of 1 0 mL of Magnevist. ?? Findings The current study is compared to the out side studies from [facility]. The cord itself is normal. At the C2-3 level a disc osteophyte complex protrudes posteriorly and compre sses the cord from anterior to posterior (series 4 image 15). The degre e of stenosis is moderate to severe. ?? The C3-4 level is normal. At C4-5 a prim arily right-sided disc osteophyte complex protrudes posteriorly but the co rd is not significantly distorted. ?? At C5-6 disc osteophyte complex protrude s posteriorly and ??causes foraminal encroachment on the right. ?? Impression ?? Disc osteophyte complexes at C2-3 and C4 -5 are exacerbated by hypertrophy of the ligamentum flava posteriorly. Forami nal encroachment is present bilaterally at C4-5. Another disc osteophyte complex is present at C5-6 primarily on the right causing mild foraminal encroachmen t. Procedure Note Carolina Montoya MD - 01/01/2012For matting of this note might be different from the original. Examination MR C spine W WO Raul Clinical History C2-C3 cervical stenosis with myelopathic findings Evaluate for progression compared to 02/22 Comparison Outside MR studies dated June 14 and Ap ril 11 are available for comparison. Technique We obtained multi sequence multiplanar v iews of the cervical region both before and after the intravenous injection of 1 0 mL of Magnevist. Findings The current study is compared to the out side studies from [facility]. The cord itself is normal. At the C2-3 level a disc osteophyte complex protrudes posteriorly and compre sses the cord from anterior to posterior (series 4 image 15). The degre e of stenosis is moderate to severe. The C3-4 level is normal. At C4-5 a prim arily right-sided disc osteophyte complex protrudes posteriorly but the co rd is not significantly distorted. At C5-6 disc osteophyte complex protrude s posteriorly and causes foraminal encroachment on the right. Impression Disc osteophyte complexes at C2-3 and C4 -5 are exacerbated by hypertrophy of the ligamentum flava posteriorly. Forami nal encroachment is present bilaterally at C4-5. Another disc osteophyte complex is present at C5-6 primarily on the right causing mild foraminal encroachmen t. Marquez Foley MD IMG MRI ORDERABLES Homocysteine Total, Plasma (12/16/2011 11:11 AM EDT) athologist Signature Homocyst Tot 5 5 - 12 CERNER mcmol/L MILLENNIUM Comment: Reference Range applies to fast ing specimens only. Specimen Anatomical Collection Method Collection Time Receive d Time (Source) Location / / Volume Laterality Blood specimen 12/16/2011 11:11 2 2:17 (specimen) AM EDT PM EDT Resulting Agency Comment Spec In Lab Marquez Foley MD CHEMISTRY ORDERABLES Performing Organization Address City/State/ZIP Code Phon e Number [address] CERNER MILLENNIUM Methylmalonic acid, serum (12/16/2011 11:11 AM EDT) Patholo gist Method Time Signature Methylmalonic Acid 0.11 <=0.40 CERNER nmol/mL MILLENNIUM Comment: Test Performed by: [place] [id number] Psychology Associate: Elmo hoffman III, M.D. Specimen Anatomical Collection Method Collection Time Receive d Time (Source) Location / / Volume Laterality Blood specimen 12/16/2011 11:11 2 1:18 (specimen) AM EDT PM EDT Resulting Agency Comment Spec In Lab Marquez Foley MD CHEMISTRY ORDERABLES Performing Organization Address City/[facility]/ZIP Code Phon e Number [address] CERNER MILLENNIUM (ABNORMAL) Vitamin B12 (12/16/2011 11:11 AM EDT) Analysis Performed At Patho logist Time Signature Vitamin B-12 >2000 (H) 207 - 974 CERNER pg/mL MILLENNIUM Specimen Anatomical Collection Method Collection Time Receive d Time (Source) Location / / Volume Laterality Blood specimen 12/16/2011 11:11 2 (specimen) AM EDT 11:24 AM EDT Resulting Agency Comment Spec In Lab Marquez Foley MD CHEMISTRY ORDERABLES Performing Organization Address City/[facility]/ZIP Code Phon e Number [address] CERNER MILLENNIUM documented in this encounter Visit Diagnoses Diagnosis Cervical spondylosis with myelopathy - P rimary Cervical spondylosis Cervical spondylosis without myelopathy Cervical spondylosis with myelopathy documented in this encounter Care Teams Beer Maker Relationship Specialty Start Date End Date Jeanna Smith APRN PCP - General 12/16/11 05/09/18 [address] [place] [address] documented as of this encounter
--- OUTSIDE RECORDS SUMMARY | 2021-09-05 01:10 | XMS_ITS | Encounter Summary ---
:1950 [place] [address] Care Team Providers Name Role Phone Marina Montague MD Primary Care Provider Encounter Details Date Type Department Care Team Description 03/11/2011 Orders Only Neurology at [facility] Marquez Foley MD [facility] [address] [place] [address] NEUROLOGY DEPT. [phone] [place], [place] [address] (Wo rk) Social History Tobacco Use Types Packs/Day Years Used Date Never Assessed Sex Assigned at Date Recorded Not on file documented as of this encounter Plan of Treatment Upcoming Encounters Date Type Specialty Care Team Description 09/11/2021 Appointment Radiology Tory Willard APRN [facility] GASTROENTEROLOGY [place], [place] [address] (Wo rk) 09/11/2021 Laboratory Appointment Lab 09/11/2021 Office Visit Gastroenterology Tory Willard APRN [facility] GASTROENTEROLOGY [place], [place] [address] (Wo rk) 09/11/2021 Office Visit Rheumatology Lorenzo Hermosillo PA [facility] RHEUMATOLOGY [place], [place] [address] (Wo rk) Scheduled Procedures Name Priority Associated Diagnoses Date/Time EGD, UPPER GI ENDOSCOPY Hepatic cirrhosis, unspe cified hepatic cirrhosis type, unspecified whet her ascites present documented as of this encounter Procedures Procedure Name Priority Date/Time Associated Diagnosis Comme nts FILM LIBRARY Routine 03/11/2011 1:23 PM Results f or this STORAGE ONLY MR EST procedure ar e in HEAD the results section. documented in this encounter Results FILM LIBRARY- STORAGE ONLY MR HEAD (03/11/2011 1:23 PM EST) Specimen (Source) Anatomical Collection Method Collection Time Re ceived Time Location / / Volume Laterality 03/11/2011 1:23 PM EST Narrative RAD - 08/18/2013 1:35 AM EDT This is a non-reportable exam. Procedure Note Jcarlos Mo - 08/18/2013Formatting of t his note might be different from the original. This is a non-reportable exam. Marquez Foley MD IMG FILM LIBRARY ORDERABLES Performing Organization Address City/State/ZIP Code Phon e Number [facility] RAD [address] [facility] [place] [address] documented in this encounter Visit Diagnoses Not on filedocumented in this encounter Care Teams Electron Beam Welder Setter Relationship Specialty Start Date End Date Marina Montague MD PCP - General 01/14/10 12/15/11 [address] [place] [address] documented as of this encounter
--- OUTSIDE RECORDS SUMMARY | 2021-09-05 01:10 | XMS_ITS | Encounter Summary ---
:1950 Author Organization [facility] [place] [address] Care Team Providers Name Role Phone Marina Montague MD Primary Care Provider Encounter Details Date Type Department Care Team Description 08/10/2011 Abstract Neurology at [facility] [place] Laura Fuentes, RN [facility] [place] [address] Social History Tobacco Use Types Packs/Day Years Used Date Never Assessed Sex Assigned at Date Recorded Not on file documented as of this encounter Plan of Treatment Upcoming Encounters Date Type Specialty Care Team Description 09/11/2021 Appointment Radiology Tory Willard APRN [facility] GASTROENTEROLOGY [place], [place] [address] (Wo rk) 09/11/2021 Laboratory Appointment Lab 09/11/2021 Office Visit Gastroenterology Tory Willard APRN [facility] GASTROENTEROLOGY [place], [place] [address] (Wo rk) 09/11/2021 Office Visit Rheumatology Lorenzo Hermosillo PA [facility] RHEUMATOLOGY [place], [place] [address] (Wo rk) Scheduled Procedures Name Priority Associated Diagnoses Date/Time EGD, UPPER GI ENDOSCOPY Hepatic cirrhosis, unspe cified hepatic cirrhosis type, unspecified whet her ascites present documented as of this encounter Visit Diagnoses Not on filedocumented in this encounter Care Teams English Teacher Relationship Specialty Start Date End Date Marina Montague MD PCP - General 01/14/10 12/15/11 [address] [place] [address] documented as of this encounter
--- OUTSIDE RECORDS SUMMARY | 2021-09-05 01:10 | XMS_ITS | Encounter Summary ---
:1950 Author Organization [facility] [place] [address] Care Team Providers Name Role Phone Marina Montague MD Primary Care Provider Encounter Details Date Type Department Care Team Description 07/16/2011 External Results [place] [facility] [place] Rolo Kilpatrick MD [address] [place] [address] [address] [place] [address] NEUROLOGY DEPT. [phone] [place], [place] [address] (Wo rk) Social History Tobacco Use Types Packs/Day Years Used Date Never Assessed Sex Assigned at Date Recorded Not on file documented as of this encounter Plan of Treatment Upcoming Encounters Date Type Specialty Care Team Description 09/11/2021 Appointment Radiology Tory Willard APRN [facility] GASTROENTEROLOGY [place], [place] [address] (Wo rk) 09/11/2021 Laboratory Appointment Lab 09/11/2021 Office Visit Gastroenterology Tory Willard APRN [facility] GASTROENTEROLOGY [place], [place] [address] (Wo rk) 09/11/2021 Office Visit Rheumatology Lorenzo Hermosillo PA [facility] RHEUMATOLOGY [place], [place] [address] (Wo rk) Scheduled Procedures Name Priority Associated Diagnoses Date/Time EGD, UPPER GI ENDOSCOPY Hepatic cirrhosis, unspe cified hepatic cirrhosis type, unspecified whet her ascites present documented as of this encounter Procedures Procedure Name Priority Date/Time Associated Diagnosis Comme nts MRI/MRA SCAN Routine 06/15/2011 MRI/MRA SCAN Routine 06/03/2011 MRI/MRA SCAN Routine 03/11/2011 documented in this encounter Results Scan Doc: MRI/MRA (06/15/2011) Anatomical Region Laterality Modality Other Narrative This result has an attachment that is no t available. Rolo Kilpatrick MD MEDIA MGR SCAN EXT ORDR/RSLT Scan Doc: MRI/MRA (06/03/2011) Anatomical Region Laterality Modality Other Narrative This result has an attachment that is no t available. Rolo Kilpatrick MD MEDIA MGR SCAN EXT ORDR/RSLT Scan Doc: MRI/MRA (03/11/2011) Anatomical Region Laterality Modality Other Narrative This result has an attachment that is no t available. oRlo Kilpatrick MD MEDIA MGR SCAN EXT ORDR/RSLT documented in this encounter Visit Diagnoses Not on filedocumented in this encounter Care Teams Selenium Plant Operator Relationship Specialty Start Date End Date Marina Montague MD PCP - General 01/14/10 12/15/11 [address] [place] [address] documented as of this encounter
--- OUTSIDE RECORDS SUMMARY | 2021-09-05 01:10 | XMS_ITS | Encounter Summary ---
:1950 Author Organization [facility] [place] [address] Care Team Providers Name Role Phone Jeanna Smith JORGE Primary Care Provider Encounter Details Date Type Department Care Team Description 12/24/2011 Abstract [facility] [place] [address] Social History Tobacco Use Types Packs/Day Years Used Date Never Smoker Smokeless Tobacco: Never Used Alcohol Use Standard Drinks/Week Comments No 0 (1 standard drink = 0.6 oz pure alcoho l) Sex Assigned at Date Recorded Not on file documented as of this encounter Plan of Treatment Upcoming Encounters Date Type Specialty Care Team Description 09/11/2021 Appointment Radiology Tory Willard APRN [facility] GASTROENTEROLOGY [place], [place] [address] (Wo rk) 09/11/2021 Laboratory Appointment Lab 09/11/2021 Office Visit Gastroenterology Tory Willard APRN [facility] GASTROENTEROLOGY [place], [place] [address] (Wo rk) 09/11/2021 Office Visit Rheumatology Lorenzo Hermosillo PA [facility] RHEUMATOLOGY [place], [place] [address] (Wo rk) Scheduled Procedures Name Priority Associated Diagnoses Date/Time EGD, UPPER GI ENDOSCOPY Hepatic cirrhosis, unspe cified hepatic cirrhosis type, unspecified whet her ascites present documented as of this encounter Visit Diagnoses Not on filedocumented in this encounter Care Teams Financial Health Counselor Relationship Specialty Start Date End Date Jeanna Smith APRN PCP - General 12/16/11 05/09/18 [address] [place] [address] documented as of this encounter
--- OUTSIDE RECORDS SUMMARY | 2021-09-05 01:10 | XMS_ITS | Encounter Summary ---
:1950 Author Organization [facility] [place] [address] Care Team Providers Name Role Phone Rolette, Jeanna Saenz APRN Primary Care Provider Encounter Details Date Type Department Care Team Description 12/28/2011 Hospital Encounter MRI [place] [facility] [place] [address] Social History Tobacco Use Types Packs/Day Years Used Date Never Smoker Smokeless Tobacco: Never Used Alcohol Use Standard Drinks/Week Comments No 0 (1 standard drink = 0.6 oz pure alcoho l) Sex Assigned at Date Recorded Not on file documented as of this encounter Last Filed Vital Signs Vital Sign Reading Time Taken Comments Blood Pressure - - Pulse - - Temperature - - Respiratory Rate - - Oxygen Saturation - - Inhaled Oxygen Concentration - - Weight 49.9 kg (110 lb) 12/28/2011 6:19 AM EST Height - - Body Mass Index 20.78 12/16/2011 9:56 AM EDT documented in this encounter Medications at Time of Discharge Medication Sig Dispensed Refills Start Date End Date levothyroxine Take 75 mcg by mouth 0 [...] mg tablet 2 times daily (with meals). UNABLE TO FIND Take 2.5 mg by mouth 0 07/29/2018 once a week. Taking 5 mg of Methotrexin. atenolol (TENORMIN) 25 Take 25 mg by mouth 0 07/29/2018 mg tablet daily. ADALIMUMAB (HUMIRA PEN Inject 40 mg 0 09/14/2018 SUBQ) subcutaneously every 14 days. celecoxib (CELEBREX) Take 100 mg by mouth 2 0 07/29/2018 100 mg capsule times daily. documented as of this encounter Plan of Treatment Upcoming Encounters Date Type Specialty Care Team Description 09/11/2021 Appointment Radiology Tory Willard APRN [facility] GASTROENTEROLOGY [place], [place] [address] (Wo rk) 09/11/2021 Laboratory Appointment Lab 09/11/2021 Office Visit Gastroenterology Tory Willard APRN [facility] GASTROENTEROLOGY [place], [place] [address] (Wo rk) 09/11/2021 Office Visit Rheumatology Lorenzo Hermosillo PA [facility] RHEUMATOLOGY [place], [place] [address] (Wo rk) Scheduled Procedures Name Priority Associated Diagnoses Date/Time EGD, UPPER GI ENDOSCOPY Hepatic cirrhosis, unspe cified hepatic cirrhosis type, unspecified whet her ascites present documented as of this encounter Visit Diagnoses Not on filedocumented in this encounter Care Teams Broom Machine Operator Relationship Specialty Start Date End Date Jeanna Smith APRN PCP - General 12/16/11 05/09/18 [address] [place] [address] documented as of this encounter
--- OUTSIDE RECORDS SUMMARY | 2021-09-05 01:10 | XMS_ITS | Encounter Summary ---
:1950 Author Organization [facility] Address [facility] [place] [address] Care Team Providers Name Role Phone Jeanna Smith JORGE Primary Care Provider Encounter Details Date Type Department Care Team Description 01/18/2012 Hospital Encounter XRay at [facility] [place] Spondylosis [address] [place] [address] Jordan Pereira MD [facility] [address] [place] [address] Social History Tobacco Use Types Packs/Day [...] Description 09/11/2021 Appointment Radiology Tory Willard APRN [facility] GASTROENTEROLOGY [place], [place] [address] (Wo rk) 09/11/2021 Laboratory Appointment Lab 09/11/2021 Office Visit Gastroenterology Tory Willard APRN [facility] GASTROENTEROLOGY [place], [place] [address] (Wo rk) 09/11/2021 Office Visit Rheumatology Lorenzo Hermosillo PA [facility] RHEUMATOLOGY [place], [place] [address] (Wo rk) Scheduled Procedures Name Priority Associated Diagnoses Date/Time EGD, UPPER GI ENDOSCOPY Hepatic cirrhosis, unspe cified hepatic cirrhosis type, unspecified whet her ascites present documented as of this encounter Procedures Procedure Name Priority Date/Time Associated Diagnosis Comme nts XR CERVICAL SPINE 2 Routine 01/18/2012 10:08 AM Spondylosis R esults for this OR 3 VIEWS EST procedure are i n the results section. documented in this encounter Results XR cervical spine diagnostic 2 or 3 views (01/18/2012 10:08 AM EST) Anatomical Region Laterality Modality C-spine N/A Radiographic Imaging Specimen (Source) Anatomical Collection Method Collection Time Re ceived Time Location / / Volume Laterality 01/18/2012 10:08 AM EST Narrative 01/18/2012 10:22 AM EST Examination DIAG CERVICAL SPINE 2 OR 3 VIEWS Clinical History RA and myelopathy; ? instability Comparison There are no prior plain films of the ce rvical spine. Technique Findings There is slight exaggeration of the uppe r cervical lordotic curvature. There is a fusion of C2-3 tiny developmental basi s. There is narrowing of the C6-7 intervertebral disc space. ??There is si gnificant post spondylosis present at C5-C6. Some facet hypertrophic changes n oted at C3-4 with narrowing of the facet joints at the C4-5. Flexion-extens ion views revealed a fairly good range of flexion-extension with most of the fl exion been carried out and the a lower mid cervical region. ?? There is nothing to suggest instability. Do not see any erosion, loss of height of mineralization or facet changes that I would ascribed to rheumatoid arthritis. ?? 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 ??No instability Procedure Note Richard Ford MD - 01/18/2012Formatt ing of this note might be different from the original. Examination DIAG CERVICAL SPINE 2 OR 3 VIEWS Clinical History RA and myelopathy; ? instability Comparison There are no prior plain films of the ce rvical spine. Technique Findings There is slight exaggeration of the uppe r cervical lordotic curvature. There is a fusion of C2-3 tiny developmental basi s. There is narrowing of the C6-7 intervertebral disc space. There is sign ificant post spondylosis present at C5-C6. Some facet hypertrophic changes n oted at C3-4 with narrowing of the facet joints at the C4-5. Flexion-extens ion views revealed a fairly good range of flexion-extension with most of the fl exion been carried out and the a lower mid cervical region. There is nothing to suggest instability. Do not see any erosion, loss of height of mineralization or facet changes that I would ascribed to rheumatoid arthritis. 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 No instability Jordan Wagner MD IMG DX ORDERABLES documented in this encounter Visit Diagnoses Diagnosis Spondylosis Spondylosis of unspecified site without mention of myelopathy documented in this encounter Care Teams Clinical Dental Technician Relationship Specialty Start Date End Date Jeanna Smith APRN PCP - General 12/16/11 05/09/18 [address] [place] [address] documented as of this encounter
--- OUTSIDE RECORDS SUMMARY | 2021-09-05 01:10 | XMS_ITS | Encounter Summary ---
:1950 Author Organization [place] [address] Care Team Providers Name Role Phone Marina Montague MD Primary Care Provider Reason for Visit Reason Comments Procedure SEP Encounter Details Date Type Department Care Team Description 08/18/2011 Procedure visit Neurology at [facility] [place] ELECTROENCEPHALOGRAM, NEURO [facility] [place] [address] Balance problem [facility] Marquez Foley MD [facility] [place] [address] [place] [address] Social History Tobacco Use Types Packs/Day Years Used Date Never Smoker Smokeless Tobacco: Never Used Alcohol Use Standard Drinks/Week Comments No 0 (1 standard drink = 0.6 oz pure alcoho l) Sex Assigned at Date Recorded Not on file documented as of this encounter Procedure Notes Marina Reagan MD - 08/18/2011 10:48 AM EDTAssociated Order(s): SOMATOSENSORY EVOKED POTENTIALS - LOWER LIMBS Procedure(s): SOMATOSENSORY EVOKED POTENTIALS - LOWER LIMBS Pre-Procedure Diagnose(s): Balance problem PTSEP#: 99/12 Posterior Tibial Somatosensory Evoked Potentials (PTSEP) Name: Shereen Vega Date of Study: 08/18/2011 Referring Physician: Marquez Foley M.D. Clinical History: The patient is a 61 year old female with a six month history of gradually progressive worsening balance problem of gradual onset. Procedure: Four-channel somatosensory evoked potentials with stimulation of the posterior tibial nerve at the ankle were recorded over the popliteal fossa, T-12 and the contralateral somatosensory neocortex. Latency (msec) Generator Wave Left Right Left/Right Difference Normal Latency Normal Left/Right Difference Lumbar Spinal Cord N21 22.0 21.8 0.2 < 22.1 < 1.2 Contralateral Neocortex P37 38.6 37.8 0.8 < 46.5 < 1.4 Latency (msec) Interwave Left Right Left/Right Difference Normal Latency Normal L/R Difference Lumbar Cord - Neocortex N21 - P37 16.6 16.0 0.6 < 20.5 < 1.5 NR = Not Reproducible NA = Not Applicable Findings: The waveforms are reproducible, well formed and of normal amplitude. Latencies are within the normal range. Conclusion: Normal study. No conduction delay in the somatosensory pathways of the tibial nerve bilaterally. Cc: documented in this encounter Plan of Treatment Upcoming Encounters Date Type Specialty Care Team Description 09/11/2021 Appointment Radiology Tory Willard APRN [facility] GASTROENTEROLOGY [place], [place] [address] (Juhi garner) 09/11/2021 Laboratory Appointment Lab 09/11/2021 Office Visit Gastroenterology Tory Willard APRN [facility] GASTROENTEROLOGY [place], [place] [address] (Juhi rk) 09/11/2021 Office Visit Rheumatology Lorenzo Hermosillo PA [facility] RHEUMATOLOGY [place], [place] [address] (Juhi garner) Scheduled Procedures Name Priority Associated Diagnoses Date/Time EGD, UPPER GI ENDOSCOPY Hepatic cirrhosis, unspe cified hepatic cirrhosis type, unspecified whet her ascites present documented as of this encounter Procedures Procedure Name Priority Date/Time Associated Comments Diagnosis SOMATOSENSORY EVOKED Routine 08/19/2011 4:05 PM Balance proble m Results for this POTENTIALS - LOWER EDT procedure are in LIMBS the results section. documented in this encounter Results SOMATOSENSORY EVOKED POTENTIALS - LOWER LIMBS (08/19/2011 4:05 PM EDT) Narrative Marina Reagan MD - 08/19/2011 4:05 P M EDT ? PTSEP#: 99/12 Posterior Tibial Somatosensory Evoked Po tentials (PTSEP) Name: ?Shereenmarcella Vega Date of Study: ??08/18/2011 Referring Physician: Marquez Foley M.D. Clinical History: The patient is a 61 ye ar old female with a six month history of gradually progressive worseni ng balance problem ?o f gradual onset. Procedure: ??Four-channel somatosensory evoked potentials with stimulation of the posterior tibial nerve at the ank le were recorded over the popliteal fossa, T-12 and the contralate ral somatosensory neocortex. ?Latency (msec) Generator Wave Left Right Left/Right Difference Normal Latency Normal Left/Right Difference Lumbar Spinal Cord N21 22.0 21.8 0.2 < 22.1 < 1 .2 Contralateral Neocortex ??P37 38.6 37.8 0.8 < 46.5 < 1.4 ? Lat ency (msec) Interwave Left Right Left/Right Difference Normal Latency Normal L/R Difference Lumbar Cord - Neocortex N21 - P37 16.6 1 6.0 0.6 < 20.5 < 1.5 NR = Not Reproducible NA = Not Applicable Findings: The waveforms are reproducible , well formed and of normal amplitude. Latencies are within the norm al range. Conclusion: Normal study. No conduction delay in the somatosensory pathways of the tibial nerve bilaterally . ?? Cc: Procedure Note Marina Reagan MD - 08/18/2011 10:48 AM EDT PTSEP#: Posterior Tibial Somatosensory Evoked Po tentials (PTSEP) Name: Shereen Vega Date of Study: 08/18/2011 Referring Physician: Marquez Foley M.D. Clinical History: The patient is a 61 ye ar old female with a six month history of gradually progressive worsening balance problem of gradual onset. Procedure: Four-channel somatosensory ev oked potentials with stimulation of the posterior tibial nerve at the ankle were recorded over the popliteal fossa, T-12 and the contralateral somatosensory neocortex. Latency (msec) Generator Wave Left Right Left/Right Difference Normal Latency Normal Left/Right Difference Lumbar Spinal Cord N21 22.0 21.8 0.2 < 22.1 < 1 .2 Contralateral Neocortex P37 38.6 37.8 0.8 < 46.5 < 1.4 Latency (msec) Interwave Left Right Left/Right Difference Normal Latency Normal L/R Difference Lumbar Cord - Neocortex N21 - P37 16.6 1 6.0 0.6 < 20.5 < 1.5 NR = Not Reproducible NA = Not Applicable Findings: The waveforms are reproducible , well formed and of normal amplitude. Latencies are within the normal range. Conclusion: Normal study. No conduction delay in the somatosensory pathways of the tibial nerve bilaterally. Cc: Marquez Foley MD NEUROLOGY ORDERABLES documented in this encounter Visit Diagnoses Diagnosis Balance problem Other symptoms involving nervous and mus culoskeletal systems documented in this encounter Care Teams Automotive Sales Executive Relationship Specialty Start Date End Date Marina Montague MD PCP - General 01/14/10 12/15/11 [address] [place] [address] documented as of this encounter
--- OUTSIDE RECORDS SUMMARY | 2021-09-05 01:10 | XMS_ITS | Encounter Summary ---
:1950 Author Organization [facility] [place] [address] Care Team Providers Name Role Phone Jeanna Smith JORGE Primary Care Provider Encounter Details Date Type Department Care Team Description 12/28/2011 Hospital Encounter MRI at [facility] [place] Marquez Foley MD [facility] [place] [address] Cervical spondylosis [facility]IC, [facility] with myelopathy [facility] Jordan Wagner MD [facility] [place] [address] [place] [id number] Social History Tobacco Use Types Packs/Day Years [...] times daily. documented as of this encounter Miscellaneous Notes Miscellaneous - Provider, Scanning - 01/11/2012 11:41 AM EST documented in this encounter Plan of Treatment Upcoming Encounters Date Type Specialty Care Team Description 09/11/2021 Appointment Radiology Tory Willard APRN [facility] GASTR[facility]ONE [place], [place] [address] (Wo rk) 09/11/2021 Laboratory Appointment Lab 09/11/2021 Office Visit Gastroenterology Tory Willard APRN [facility] GASTROENTEROLOGY [place], [place] [address] (Wo rk) 09/11/2021 Office Visit Rheumatology Lorenzo Hermosillo PA [facility] RHEUMATOLOGY [place], [place] [address] (Juhi rk) Scheduled Procedures Name Priority Associated Diagnoses Date/Time EGD, UPPER GI ENDOSCOPY Hepatic cirrhosis, unspe cified hepatic cirrhosis type, unspecified whet her ascites present documented as of this encounter Procedures Procedure Name Priority Date/Time Associated Diagnosis Comme nts MRI CERVICAL SPINE Routine 12/28/2011 2:14 PM Cervical spondyl osis Results for this WITH/WO CONTRAST EST with myelopathy procedur e are in the results section. documented in [...] compared to the out side studies from [facility]. The cord itself is normal. At the [...] compared to the out side studies from [facility]. The cord itself is normal. At the [...] t. Marquez Foley MD IMG MRI ORDERABLES documented in this encounter Visit Diagnoses Diagnosis Cervical spondylosis with myelopathy documented in this encounter Administered Medications Inactive Administered Medications - up to 3 most recent administrations Medication Order MAR Action Action Date Dose Rate Site gadopentetate dimeglumine Given 12/28/2011 2:01 PM EST 10 mLs (MAGNEVIST) injection 0.2 mL/kg 0.2 mL/kg/dose, Intravenous, ONCE PRN, 1 dose, Starting on Wed12/28/11 at 1400, Until Wed12/28/11 at 1401, Per Protocol, Routine documented in this encounter Care Teams Programming Intern Relationship Specialty Start Date End Date Jeanna Smith APRN PCP - General 12/16/11 05/09/18 [address] [place] [address] documented as of this encounter
--- OUTSIDE RECORDS SUMMARY | 2021-09-05 01:10 | XMS_ITS | Encounter Summary ---
:1950 [place] [address] Care Team Providers Name Role Phone Jeanna Smith JORGE Primary Care Provider Encounter Details Date Type Department Care Team Description 01/28/2012 Orders Only Spine Center at [facility] Jordan Wagner MD [facility] [address] [place] [address] NEUROSURGERY [phone] [place], [place] [address] (Wo rk) Social History Tobacco [...] Description 09/11/2021 Appointment Radiology Tory Willard APRN [facility] GASTROENTEROLOGY [place], [place] [address] (Wo rk) 09/11/2021 Laboratory Appointment Lab 09/11/2021 Office Visit Gastroenterology Tory Willard APRN [facility] GASTROENTEROLOGY [place], [place] [address] (Wo rk) 09/11/2021 Office Visit Rheumatology Lorenzo Hermosillo PA [facility] RHEUMATOLOGY [place], [place] [address] (Wo rk) Scheduled Procedures Name Priority Associated Diagnoses Date/Time EGD, UPPER GI ENDOSCOPY Hepatic cirrhosis, unspe cified hepatic cirrhosis type, unspecified whet her ascites present documented as of this encounter Procedures Procedure Name Priority Date/Time Associated Diagnosis Comme nts FILM LIBRARY Routine 01/28/2012 4:00 PM Results f or this STORAGE ONLY MR EST procedure ar e in SPINE the results section. documented in this encounter Results Film Library- Storage only MR Spine (01/28/2012 4:00 PM EST) Specimen (Source) Anatomical Collection Method Collection Time Re ceived Time Location / / Volume Laterality 01/28/2012 4:00 PM EST Narrative RAD - 09/11/2013 7:04 PM EDT This is a non-reportable exam. Procedure Note Abhilash Mo - 09/11/2013Formatti ng of this note might be different from the original. This is a non-reportable exam. Jordan Wagner MD Letty FILM LIBRARY ORDERABLES Performing Organization Address City/State/ZIP Code Phon e Number [facility] [address] [facility] [place] [address] documented in this encounter Visit Diagnoses Not on filedocumented in this encounter Care Teams Fuel Oil Clerk Relationship Specialty Start Date End Date Jeanna Smith APRN PCP - General 12/16/11 05/09/18 [address] [place] [address] documented as of this encounter
--- OUTSIDE RECORDS SUMMARY | 2021-09-05 01:10 | XMS_ITS | Encounter Summary ---
:1950 [place] [address] Care Team Providers Name Role Phone Marina Montague MD Primary Care Provider Encounter Details Date Type Department Care Team Description 06/03/2011 Orders Only [place] [facility] Marquez Foley MD [facility] [address] [place] [address] NEUROLOGY DEPT. [phone] [place], [place] [address] (Wo rk) Social History Tobacco Use Types Packs/Day Years Used Date Never Assessed Sex Assigned at Date Recorded Not on file documented as of this encounter Plan of Treatment Upcoming Encounters Date Type Specialty Care Team Description 09/11/2021 Appointment Radiology Tory Willard APRN [facility] GASTROENTEROLOGY [place], [place] [address] (Wo rk) 09/11/2021 Laboratory Appointment Lab 09/11/2021 Office Visit Gastroenterology Tory Willard APRN [facility] GASTROENTEROLOGY [place], [place] [address] (Wo rk) 09/11/2021 Office Visit Rheumatology Lorenzo Hermosillo PA [facility] RHEUMATOLOGY [place], [place] [address] (Wo rk) Scheduled Procedures Name Priority Associated Diagnoses Date/Time EGD, UPPER GI ENDOSCOPY Hepatic cirrhosis, unspe cified hepatic cirrhosis type, unspecified whet her ascites present documented as of this encounter Procedures Procedure Name Priority Date/Time Associated Diagnosis Comme nts FILM LIBRARY Routine 06/03/2011 1:24 PM Results f or this STORAGE ONLY MR EDT procedure ar e in SPINE the results section. documented in this encounter Results FILM LIBRARY- STORAGE ONLY MR SPINE (06/03/2011 1:24 PM EDT) Specimen (Source) Anatomical Collection Method Collection Time Re ceived Time Location / / Volume Laterality 06/03/2011 1:24 PM EDT Narrative RAD - 08/18/2013 1:35 AM EDT This is a non-reportable exam. Procedure Note Jcarlos Mo - 08/18/2013Formatting of t his note might be different from the original. This is a non-reportable exam. Marquez Foley MD IMG FILM LIBRARY ORDERABLES Performing Organization Address City/State/[facility] Code Phon e Number [facility] RAD [address] [facility] [place] [address] documented in this encounter Visit Diagnoses Not on filedocumented in this encounter Care Teams Windows Deployment Technician Relationship Specialty Start Date End Date Marina Montague MD PCP - General 01/14/10 12/15/11 [address] [place] [address] documented as of this encounter
--- OUTSIDE RECORDS SUMMARY | 2021-09-05 01:10 | XMS_ITS | Encounter Summary ---
:1950 Author Organization [facility] [place] [address] Care Team Providers Name Role Phone Jeanna Smith JORGE Primary Care Provider Reason for Visit Reason Comments Back And Neck Pain bilateral leg pain; weakness Encounter Details Date Type Department Care Team Description 01/18/2012 Office Visit [facility] M D Spondylosis (Primary [facility] Dx) [facility] DR Awad NEUROSURGERY [place] [phone] Social History Tobacco Use Types Packs/Day Years [...] - Inhaled Oxygen Concentration - - Weight 49.4 kg (109 lb) 01/18/2012 8:36 AM EST Height 154.9 cm (5' 1) 01/18/2012 8:36 AM EST Body Mass Index 20.6 01/18/2012 8:36 AM EST documented in this encounter Progress Notes Jordan Wagner MD - 01/18/2012 11:11 AM EST Shereen Vega is a 61-year-old woman seen in referral from Marquez Foley for cervical spondylosis. Her chief complaint is that her balance is off. She feels that she has trouble walking. She needs to have a banister available when going up or down stairs, and she will bump into the wall when she tries to walk. She feels that intermittently her left leg is weak and gives out on her. There is no bowel or bladder dysfunction. She does have some left hand numbness to a greater extent than the right hand and has some difficulty with holding things, but for the most part she is able to do buttons on her shirt. Her past medical history is significant for diabetes, rheumatoid arthritis, elevated cholesterol, and peripheral neuropathy apparently thought secondary to her diabetes and depression. She is allergic to QUININE, PENICILLIN, and ERYTHROMYCIN. Her medications are methotrexate, levothyroxine, tramadol, atenolol, Humira, Neurontin, Celebrex, aspirin, lovastatin, and Glucophage. 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 On examination, this is a woman who appears somewhat frail. Range of motion of her cervical spine in flexion and extension is performed without provocation of symptoms. There is some ulnar deviation of the right wrist, but motor strength in the upper and lower extremities is full. Deep tendon reflexes are 2+ in the upper extremities, 3+ in the lower extremities. Plantar responses are equivocal. Proprioception is intact, as is light touch. Her gait is wide-based and slow. Review of her cervical MRI shows a well-preserved cervical lordosis. 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 There is also posterior ligamentous hypertrophy at C5-6. Flexion/extension views obtained today show no evidence of C1-2 instability or, to my view, significant instability in her cervical spine. I had a discussion with Ms. Vega and her , who accompanied her this visit, on the options in this situation. She certainly does have cervical spondylosis. I think one of the main questions here would be how much this is contributing to her symptoms. She also does have diabetic neuropathy, and some of her gait dysfunction could be secondary to that. The other issue is that her lower extremity symptoms in terms of gait dysfunction are out of proportion to her upper extremity symptoms and her lower extremity reflexes are brisker than her upper extremity reflexes and I think under these circumstances we should get an MRI scan of her thoracic spine to make sure that we are not dealing with a problem there. They would prefer to have that done up in [facility], and then I will see them back following that. We did discuss, in general, the nature of cervical decompression surgery and some of the risks inclusive of anesthesia, bleeding, infection, injury to the spinal cord, failure to improve her symptoms; but I think the first step would be to make sure that there is not a thoracic component here. All of this was discussed, and all questions were answered. documented in this encounter Plan of Treatment Upcoming Encounters Date Type Specialty Care Team Description 09/11/2021 Appointment Radiology Tory Willard APRN [facility] GASTROENTEROLOGY [place], [place] [address] (Wo rk) 09/11/2021 Laboratory Appointment Lab 09/11/2021 Office Visit Gastroenterology Tory Willard APRN [facility] GASTROENTEROLOGY [place], [place] [address] (Wo rk) 09/11/2021 Office Visit Rheumatology Lorenzo Hermsoillo PA [facility] RHEUMATOLOGY [place], [place] [address] (Wo rk) Scheduled Procedures Name Priority Associated Diagnoses Date/Time EGD, UPPER GI ENDOSCOPY Hepatic cirrhosis, unspe cified hepatic cirrhosis type, unspecified whet her ascites present documented as of this encounter Results XR cervical spine diagnostic [...] in this encounter Visit Diagnoses Diagnosis Spondylosis - Primary Spondylosis of unspecified site without mention of myelopathy Spondylosis Spondylosis of unspecified site without mention of myelopathy documented in this encounter Care Teams Multiple Spindle Router Operator Relationship Specialty Start Date End Date Jeanna Smith APRN PCP - General 12/16/11 05/09/18 [address] [place] [address] documented as of this encounter
--- OUTSIDE RECORDS SUMMARY | 2021-09-05 01:10 | XMS_ITS | Encounter Summary ---
:1950 Author Organization [facility] Address [address] [place] [address] Care Team Providers Name Role Phone Marina Montague MD Primary Care Provider Encounter Details Date Type Department Care Team Description 09/04/2011 Office Visit Physical Therapy at [facility] Keren Sheridan, PT [facility] PHYSICAL MEDICINE & [place] [address] Balance problem [facility] Marina Hayward MD [address] [place] [address] [place] [address] Social History Tobacco Use Types Packs/Day Years Used Date Never Smoker Smokeless Tobacco: Never Used Alcohol Use Standard Drinks/Week Comments No 0 (1 standard drink = 0.6 oz pure alcoho l) Sex Assigned at Date Recorded Not on file documented as of this encounter Progress Notes Keren Sheridan - 09/07/2011 1:40 PM EDT Physical Therapy Initial Evaluation Note: Outpatient Date of Exam/First treatment: 09/04/2011 Date of Onset: Worse over last 6 months Referring Provider: Marquez Foley MD Diagnosis: 1. Balance problem (781.99BH) Medicare Cert Period: 09/04/2011 - 11/22/2011 HISTORY: Shereen Vega is a 61 y.o. female referred to physical therapy for gait instability and falling. Patient reports that she was seen by Dr. Foley recently for complaints of worsening balance. She has fallen a couple times, all within the home, without injury. She has more difficulty on uneven ground and in low light. Patient reports occasional dizziness described as lightheaded. She deniesvertigo or spontaneous dizziness. Symptoms last a few mins but do not persist. Patient does get headaches but denies migraines. She denies ear symptoms. She reports falling to the left when standing upat times. Patient does not use assistive device though she feels like she walks better with a cart like in the grocery store. Medical history includes RA, diabetes, painful neuropathy in feet. Social/work history: does not work. Lives with , Dionisio, in [place], [place] Number of Falls in last year: 2 Medical/Surgical History: refer to electronic medical record Medications: refer to electronic medical record Functional Limitations: Patient reports difficulty arising from a chair and stabilizing, getting up to go to the bathroom at night, walking long distances, walking on uneven ground. Previous Level of Function: active - less recently Pain: Burning in feet and legs OBJECTIVE FINDINGS: Strength/Flexibility screen: 30 SECOND SIT TO STAND TEST Score: Number of Repetitions: 5 Below normal Age 60-64 65-69 70-74 75-79 80-84 85-89 90-94 Normal Range for Men 14-19 12-18 12-17 11-17 10-15 8-14 7-12 Normal Range for Women 12-17 11-16 10-15 10-15 9-14 8-13 4-11 Heel Raise: Unilateral (L) 2 (R)2 (B) 10 repetitions (B) Toe Raises 10 repetitions Gastroc Length (degrees): (L) 5 (R) 5 Knee extension ROM (Degrees) (L) 0 (R) 0 Outcome measures: Dynamic Gait Index (DGI): 14 /24 (19 or less considered fall risk); assistive device: None.; Scores(0-3): Gait level surface 2, Change in gait speed 2, Gait with horizontal head turns 1, Gait with vertical head turns 1, Gait and pivot turn 2, Step over obstacle 2, Step around obstacles 2, Steps 2 Pereira Balance Scale:45/56 (45 or less considered fall risk); Scores (0-4): Sitting to standing 4, standing unsupported 4, sitting unsupported 4, standing to sitting 4, transfers 4, standing with eyes closed 3, standing with feet together 3, reaching forward with outstretched arm 3, retrieving object from floor 3, turning to look behind 3, turning 360 degrees 2, placing alternating foot on stool 4, standing with one foot in front 3, standing on one foot 1 Timed Up & Go (TUG) Average of two trials (seconds): 15 seconds > 13.5 seconds = fall risk, assistive device None. (MDC = 2.9 for chronic stroke) Timed Up & Go (TUG) Average of two trials (seconds): 13 seconds > 13.5 seconds = fall risk, assistive device Cane. (MDC = 2.9 for chronic stroke) Patient has decreased sensation to vibration (B) feet to ankle. CLINICAL EVALUATION AND DIAGNOSIS: These findings are consistent with multifactorial unsteadiness including decreased LE strength, decreased flexibility , altered gait, decreased balance and neuropathy. Shereen Vega tests at a (+) risk to fall on the DGI , Pereira and TUG Physical therapy is indicated to: increase strength, increase flexibility, improve balance and improve gait FUNCTIONAL GOALS: Therapy Short Term Goals (3 weeks) 1. (I) home exercise program 2. SLS 3 seconds each LE to improve ability to step over/onto objects during ADL 3. Walk down hallway with head turn and tilt using a cane without slowing to improve ability to lookaround during ambulatory ADLs without LOB 4. 30 second sit to stand: 8 reps to improve ability to come to stand from low surfaces, ascend/descend stairs, and ambulate during ADLs Therapy Concrete Carpenter Goals (6 weeks) 1. Patient able to stand (I) and stabilize without falling to left INITIAL TREATMENT INCLUDED: initial evaluation The patient is not eligible for the R.A.C.E. Study due to her age. PLAN: Frequency and duration: 2x/week x 6 weeks tapering as appropriate. Patient would like to attend PT closer to her home near [facility]. Treatment: Therapeutic exercise, Home Exercise Program and Balance and Gait Training Informed Consent: The patient consented to the physical therapy evaluation. The patient agrees to and understands the physical therapy treatment plan and goals. Total treatment time: 75 minutes Total Timed Coded Treatment: 0 minutes KEREN SHERIDAN PT documented in this encounter Plan of Treatment Upcoming Encounters Date Type Specialty Care Team Description 09/11/2021 Appointment Radiology Tory Willard, EXPERIMENTAL TECHNICIAN [facility] DR GASTROENTEROLOGY [place], [place] [address] (Wo rk) 09/11/2021 Laboratory Appointment Lab 09/11/2021 Office Visit Gastroenterology Tory Willard APRN [facility] GASTROENTEROLOGY [place], [place] [address] (Wo rk) 09/11/2021 Office Visit Rheumatology Lorenzo Hermosillo PA [facility] RHEUMATOLOGY [place], [place] [address] (Wo rk) Scheduled Procedures Name Priority Associated Diagnoses Date/Time EGD, UPPER GI ENDOSCOPY Hepatic cirrhosis, unspe cified hepatic cirrhosis type, unspecified whet her ascites present documented as of this encounter Visit Diagnoses Diagnosis Balance problem Other symptoms involving nervous and mus culoskeletal systems documented in this encounter Care Teams Ice Cream Vendor Relationship Specialty Start Date End Date Marina Montague MD PCP - General 01/14/10 12/15/11 [address] [place] [address] documented as of this encounter
--- OUTSIDE RECORDS SUMMARY | 2021-09-05 01:12 | XMS_ITS | Encounter Summary ---
:1950 Author Organization [facility] Address [address] [place] [address] Care Team Providers Name Role Phone Jeanna Smith NP Primary Care Provider Encounter Details Date Type Department Care Team Description 02/06/2011 Results Only [facility] Sridhar Foley MD Gastroenterology - [facility] [address], [place] [id number] Social History Tobacco Use Types Packs/Day Years Used Date Never Smoker Smokeless Tobacco: Never Used Alcohol Use Standard Drinks/Week Comments No 0 (1 standard drink = 0.6 oz pure alcoho l) Sex Assigned at Date Recorded Not on file documented as of this encounter Plan of Treatment Not on filedocumented as of this encounter Procedures Procedure Name Priority Date/Time Associated Diagnosis Comme nts MULTIPLE DOC ORDERS Routine 02/06/2011 15:35 Resu lts for this EST procedure are i n the results section. SED RATE Routine 02/06/2011 15:35 Results for this EST procedure are i n the results section. documented in this encounter Results (ABNORMAL) SED. RATE:WESTERGREN (02/06/2011 15:35 EST) Pathologist Sig nature Sed. Rate Westergren 35 (H) 0 - 30 mm/hr [facility] Specimen Performing Organization Address City/State/ZIP Code Phon e Number [facility] [address] [place] [address] SERVICES [facility] [address] [place] [address] MULTIPLE DOC ORDERS (02/06/2011 15:35 EST) Multiple Doc This report contains lab results ordered [facility] Comment: LAB by another provider which were collected and processed simultaneously with the orders you requested. If you have any questions, please call Customer Service at [phone]. Specimen Performing Organization Address City/State/ZIP Code Phon e Number [facility] [address] [place] [address] SERVICES [facility] [address] [place] [address] documented in this encounter Visit Diagnoses Not on filedocumented in this encounter Care Teams Pumper Helper Relationship Specialty Start Date End Date Jeanna Smith NP PCP - General 06/14/08 [facility] [address] [place], [place] [address] documented as of this encounter
--- OUTSIDE RECORDS SUMMARY | 2021-09-05 01:12 | XMS_ITS | Encounter Summary ---
:1950 Author Organization [facility] Address [address] [place] [address] Care Team Providers Name Role Phone Jeanna Smith [employer] SUPERINTENDENT Primary Care Provider Encounter Details Date Type Department Care Team Description 08/29/2009 Abstract Used for ABSTRACTING Data Jeanna Smith NP [phone] [facility] [address] [place] [address] (Wo rk) Social History Tobacco Use Types Packs/Day Years Used Date Never Assessed Sex Assigned at Date Recorded Not on file documented as of this encounter Plan of Treatment Not on filedocumented as of this encounter Visit Diagnoses Not on filedocumented in this encounter Historical Medications This list may reflect changes made after this encounter. Medication Sig Dispensed Refills Start Date End Date magnesium oxide (MAG-OX) Take 1 Tab by mouth 0 400 mg tablet daily. paroxetine (PAXIL) 40 mg Take 1 Tab by mouth 0 tablet daily. alendronate (FOSAMAX) 70 Take 1 Tab by mouth 0 mg tablet once a week. lovastatin (MEVACOR) 40 mg Take 1 Tab by mouth 0 tablet daily. aspirin chewable (BABY Take 1 Tab by mouth 0 ASPIRIN) 81 mg tablet daily. celecoxib (CELEBREX) 100 Take 1 Cap by mouth 0 09/02/2009 mg capsule daily. Etanercept (ENBREL Inject 50 mg into 0 09/02/2009 SURECLICK) 50 mg/mL (0.98 the skin once a mL) PnIj week. metformin (GLUCOPHAGE) 500 Take 1 Tab by mouth 0 09/02/2009 mg tablet 2 times daily. levothyroxine (SYNTHROID) Take 1 Tab by mouth 0 04/07/2010 112 mcg tablet daily. added in this encounter Care Teams Rib Cutter Relationship Specialty Start Date End Date Jeanna Smith [employer] SUPERINTENDENT PCP - General 06/14/08 [facility] [address] [place] [address] documented as of this encounter
--- OUTSIDE RECORDS SUMMARY | 2021-09-05 01:12 | XMS_ITS | Encounter Summary ---
:1950 Author Organization [facility] Address [address] [place] [address] Care Team Providers Name Role Phone Jeanna Smith EXPEDITIONARY FIGHTING VEHICLE CREWMAN Primary Care Provider Reason for Visit Reason Onset Date Comments Other 08/05/2009 Wants to confirm lab s needed for 08/06 draw in [place], [place] Encounter Details Date Type Department Care Team Description 08/05/2009 Telephone [facility] Jimmy Burleson Chi, MD Other (Wants to Rheumatology & [address] [place] confirm lab s needed Immunology - [address] for 08/06 draw in [facility], [place], [place]) [address] [facility], [address] [place] [address] [place] [phone] (Wo rk) Social History Tobacco Use Types Packs/Day Years Used Date Never Assessed Sex Assigned at Date Recorded Not on file documented as of this encounter Miscellaneous Notes Telephone Encounter - Anny Huff RN - 08/05/2009 9006 EDT Lab orders faxed to [facility]. documented in this encounter Plan of Treatment Not on filedocumented as of this encounter Visit Diagnoses Not on filedocumented in this encounter Care Teams Wash Oil Pump Operator Helper Relationship Specialty Start Date End Date Jeanna Smith, EXPEDITIONARY FIGHTING VEHICLE CREWMAN PCP - General 06/14/[address] [facility] [address] [place], [place] [id number] documented as of this encounter
--- OUTSIDE RECORDS SUMMARY | 2021-09-05 01:12 | XMS_ITS | Encounter Summary ---
:1950 Author Organization [facility] Address [address] [place] [address] Care Team Providers Name Role Phone Jeanna Smith CURER FOAM RUBBER Primary Care Provider Encounter Details Date Type Department Care Team Description 03/24/2010 Results Only [facility] Jeanna Smith, CURER FOAM RUBBER Laboratory Services - [facility] [address] [place] [address] [phone] [facility] [place] [address] [phone] Social History Tobacco Use Types Packs/Day Years Used Date Never Assessed Sex Assigned at Date Recorded Not on file documented as of this encounter Plan of Treatment Not on filedocumented as of this encounter Procedures Procedure Name Priority Date/Time Associated Diagnosis Comme nts CYTOPATHOLOGY Routine 03/24/2010 0:00 EST Results for this procedure are i n the results section . documented in this encounter Results CYTOPATHOLOGY (03/24/2010 0:00 EST) Pathology Report: CYTOPATHOLOGY REPORT ? [facility] ? LAB Reports generated via electr onic interface contain original data; ? however they are lacking the format of the original report. ? Caution should be taken when reading/interpreting unformatted reports. ? Name: ? SUBHASH SORIANO ? Accession #: ? [id number] ? : ? 1950 (Age: 59) ??F ?Collect Date: ? 03/24/2010 ? Location: ? [facility] ? Receive Date: ? 03/25/2010 ? Provider: ?JEANNA G TA CYNDY CURER FOAM RUBBER ? Copy to: ? Specimen/Source: ? Pap Test, Cervix/Endocervix, ThinPrep Imaging System ? with manual evaluation ? Last Menstrual Period: ? at age 34 ? SPECIMEN ADEQUACY ? Satisfactory for Eval uation ? - assessment of transformati on zone component not applicable ( e.g. atrophy, ? vaginal sample, hysterectomy ) ? GENERAL CATEGORIZATION ? Negative for Intraepi thelial Lesion or Malignancy ? Document reviewed and electr onically signed by: ? Harley Bone, CT( CP) ? Report Date: ??02/07/ 2011 14:44 ? End of Report ? Specimen Performing Organization Address City/State/ZIP Code Phon e Number [facility] [address] [place] [address] SERVICES [facility] [address] [place] [address] documented in this encounter Visit Diagnoses Not on filedocumented in this encounter Care Teams Rn Clinical Trials Relationship Specialty Start Date End Date Jeanna Smith, LUIS PCP - General 06/14/08 [facility] [address] [place], [place] [address] documented as of this encounter
--- OUTSIDE RECORDS SUMMARY | 2021-09-05 01:12 | XMS_ITS | Encounter Summary ---
:1950 Author Organization [facility] Address [address] [place] [address] Care Team Providers Name Role Phone Jeanna Iglesias PRESIDENT SALES AND MARKETING Primary Care Provider Encounter Details Date Type Department Care Team Description 2004 Results Only [facility] - Jeanna Lnicoln, PRESIDENT SALES AND MARKETING conversion [facility] [address] [place] [address] [place] [address] [phone] Social History Tobacco Use Types Packs/Day Years Used Date Never Assessed Sex Assigned at Date Recorded Not on file documented as of this encounter Plan of Treatment Not on filedocumented as of this encounter Procedures Procedure Name Priority Date/Time Associated Diagnosis Comme nts CYTOPATHOLOGY Routine 2004 0:00 EST Results for this procedure are i n the results section . documented in this encounter Results CYTOPATHOLOGY (2004 0:00 EST) Pathology Report: CYTOPATHOLOGY REPORT [facility] Reports generated via electronic interface contain erika ginal data; however they are lacking the format of the original re port. Caution should be taken when reading/interpreting unfo rmatted reports. Name: ? ELEAZAR SORIANO ? Accession #: ? [id number] : ? 1950 (Age: 54) ??F ?Collect Date: ? 04/23 Location: ? [facility] ? Receive Date : ? 05/15/2004 Provider: ?JEANNA IGLESIAS PRESIDENT SALES AND MARKETING Copy to: ? Specimen/Source: ?ThinPrep Pap Test, Cervix/ Endocervix Last Menstrual Period: ? 20 years ago ? SPECIMEN ADEQUACY ? Satisfactory for Evaluation - transformation zone component present GENERAL CATEGORIZATION ? Negative for Intraepithelial Lesion or Malignan cy ? Document reviewed and electronically signed by: ? Le Adkins, RADHA(ASCP)(IAC) ? Report Date: ??05/19/2004 10:55 End of Report Specimen Performing Organization Address City/State/ZIP Code Phon e Number [facility] [address] [place] [address] SERVICES [facility] [address] [place] [address] documented in this encounter Visit Diagnoses Not on filedocumented in this encounter Care Teams Oracle Database Administrator Relationship Specialty Start Date End Date Jeanna Iglesias NP PCP - General 06/14/08 [facility] [address] [place], [place] [address] documented as of this encounter
--- OUTSIDE RECORDS SUMMARY | 2021-09-05 01:12 | XMS_ITS | Encounter Summary ---
:1950 Author Organization [facility] Address [address] [place] [address] Care Team Providers Name Role Phone Jeanna Smith NP Primary Care Provider Encounter Details Date Type Department Care Team Description 11/27/2020 Lab Requisition [facility] Outr Resulting Lab, Pathology & Laboratory Provider [facility] [address] [place] [address] Social History Tobacco Use Types Packs/Day Years Used Date Never Smoker Smokeless Tobacco: Never Used Alcohol Use Standard Drinks/Week Comments No 0 (1 standard drink = 0.6 oz pure alcoho l) Sex Assigned at Date Recorded Not on file documented as of this encounter Plan of Treatment Not on filedocumented as of this encounter Procedures Procedure Name Priority Date/Time Associated Diagnosis Comme nts CALCIUM, URINE 24HR Routine 11/27/2020 12:30 Resu lts for this EDT procedure are i n the results section. documented in this encounter Results (ABNORMAL) CALCIUM, URINE 24HR (11/27/2020 12:30 EDT) Calcium, Urine 24.6 See Note [facility] Comment: mg/dL [facility] NOTE: SERVICES Reference range not established Calcium, Urine 24 98 (L)Comment: 100 - 300 [facility] hr Reference range mg/24hrs [facility] assumes a normal SERVICES daily intake of calcium between 600 - 800 mg/day. Urine Volume 400 mL [facility] Urine Collection 24.0 Hours [facility] LABORATORY SERVICES Specimen Urine - 24 hour urine sample (specimen) Performing Organization Address City/State/ZIP Code Phon e Number [facility] [address] [place] [address] SERVICES documented in this encounter Visit Diagnoses Not on filedocumented in this encounter Care Teams Research Food Technologist Relationship Specialty Start Date End Date Jeanna Smith NP PCP - General 06/14/08 [facility] [address] [place] [address] documented as of this encounter
--- OUTSIDE RECORDS SUMMARY | 2021-09-05 01:12 | XMS_ITS | Clinical Summary ---
:1950 Author Organization [facility] Address [address] [place] [address] Care Team Providers Name Role Phone Jeanna Smith NP Primary Care Provider Allergies Active Allergy Reactions Severity Noted Date Comments Erythromycin 08/29/2009 Upset stomach Penicillins Hives 08/29/2009 Quinine Other (See Comments) High 09/02/2009 Medications Medication Sig Dispensed Refills Start Date End Date Status aspirin chewable (BABY Take 1 Tab by 0 Active ASPIRIN) 81 mg tablet mouth daily. lovastatin (MEVACOR) 40 Take 1 Tab by 0 Active mg tablet mouth daily. alendronate (FOSAMAX) 70 Take 1 Tab by 0 Active mg tablet mouth once a week. paroxetine (PAXIL) 40 mg Take 1 Tab by 0 Active tablet mouth daily. magnesium oxide (MAG-OX) Take 1 Tab by 0 Active 400 mg tablet mouth daily. atenolol (TENORMIN) 25 Take 1 Tab by 0 04/07/2010 Active mg tablet mouth daily. calcium carbonate Take 1 Tab by 0 Active (OS-MANDI) 500 mg (1,250 mouth 2 times mg) tablet daily. levothyroxine Take 75 mcg by 0 A ctive (SYNTHROID) 75 mcg mouth daily. tablet metformin (GLUCOPHAGE) Take 1,000 mg by 0 09/17/2010 Active 1,000 mg tablet mouth 2 times daily. DOCUSATE CALCIUM (STOOL Take by mouth 0 09/17/2010 Active SOFTENER ORAL) daily. levetiracetam (KEPPRA) Take 500 mg by 0 Active 500 mg tablet mouth 2 times daily. 1/2 tab twice a day glipiZIDE (GLUCOTROL) 5 Take 5 mg by 0 Active mg tablet mouth daily. methotrexate 2.5 mg Take 2 Tabs by 24 Tab 1 08/17/2011 Active tabletIndications: mouth once a Psoriatic arthritis week. Need labs ([facility]) ([facility]) every 3 mos. adalimumab (HUMIRA PEN) Inject 0.8 mL 6 Pen 3 11/04/2011 Active 40 mg/0.8 mL PnKt into the skin every 14 days. Every two weeks. celecoxib (CELEBREX) 100 Take 1 Cap by 60 Cap 5 02/29/2012 Active mg capsuleIndications: mouth 2 times Psoriatic arthritis daily. ([facility]) ([facility]), Osteoarthritis cervical spine Active Problems Problem Noted Date Osteopenia 04/05/2010 Psoriasis 08/29/2009 Hypothyroidism 08/29/2009 Cervical spondylosis 03/18/2009 Overview: And Fingers Hypercholesterolemia 03/18/2009 Diabetes mellitus 03/18/2009 Overview: Adult-onset diabetes mellitus Psoriasis with arthropathy ([facility]) 11/22/2004 Overview: failed etanercept; On mtx, switched enbr el to humira. Helicobacter pylori (H. pylori) infection 10/02/2002 Overview: H. Pylori positive ICD10 Update Auto Replacement Depression 09/04/2002 Surgical History Surgery Date Site/Laterality Comments APPENDECTOMY OVARY REMOVAL Right Medical History Medical History Date Comments Plantar fasciitis bilateral Thrombocytopenia ([facility]) ([facility]) 03/18/2009 Quinine -induced thrombocytopenia in 07/2002 Family History Medical History Relation Name Comments Arthritis-Osteo Father Arthritis Diabetes Heart Disease Osteoporosis Relation Name Status Comments Father Social History Tobacco Use Types Packs/Day Years Used Date Never Smoker Smokeless Tobacco: Never Used Alcohol Use Standard Drinks/Week Comments No 0 (1 standard drink = 0.6 oz pure alcoho l) Sex Assigned at Date Recorded Not on file Last Filed Vital Signs Vital Sign Reading Time Taken Comments Blood Pressure 90/60 08/17/2011 1310 EDT Pulse 66 08/17/2011 1310 EDT Temperature - - Respiratory Rate 18 08/17/2011 1310 EDT Oxygen Saturation - - Inhaled Oxygen Concentration - - Weight 54.9 kg (121 lb) 08/17/2011 1310 EDT Height 156.2 cm (5' 1.5) 08/17/2011 1310 EDT Body Mass Index 22.49 08/17/2011 1310 EDT Plan of Treatment Health Maintenance Due Date Last Done Comments Hepatitis C Screen 1950 COVID-19 Vaccine (1) 1961 Fall Risk Screening 2014 Care Teams Fishing Line Winding Machine Operator Relationship Specialty Start Date End Date Jeanna Smith CAPONIZER PCP - General 06/14/08 [facility] [address] [place] [address]
--- OUTSIDE RECORDS SUMMARY | 2021-09-05 01:12 | XMS_ITS | Encounter Summary ---
:1950 Author Organization [facility] Address [address] [place] [address] Care Team Providers Name Role Phone Jeanna Smith NP Primary Care Provider Encounter Details Date Type Department Care Team Description 03/18/2009 Hospital Encounter [facility] Jimmy Burleson MD Rheumatology & [address] [place] [address], [address] [place] [address] [place], [place] [phone] (Wo rk) Social History Tobacco Use Types Packs/Day Years Used Date Never Assessed Sex Assigned at Date Recorded Not on file documented as of this encounter Discharge Disposition Disposition Code Departure Means Destination Auto Discharge Home documented in this encounter Progress Notes InpatientPhysician MD - 03/27/2009 1146 EST Jimmy Santana Chi, MD - 03/18/2009 0000 EST DIVISION OF RHEUMATOLOGY PROGRESS/FOLLOWUP NOTE - 03/18/2009 PROBLEM: Psoriatic arthritis/psoriasis. CHIEF COMPLAINT: Increased neck and low back pains. HISTORY OF PRESENT ILLNESS: We had sent a letter to the patient in October informing her of persistent elevation in liver enzymes and she was advised to decrease methotrexate from 3 to 2 tablets or 5mg once a week, which she did. She has had intermittent chest pains and tightness for which she underwent a stress test and then underwent cardiac catheterization, which showed 80% blockage of one small vessel which did not warrant surgery. She has had achiness in her neck for several months and thishas increased on the right side of her neck over several weeks so that she has trouble rotating her head to the right due to stiffness and pain. She has also had increased right-sided low back pain exac erbated by prolonged sitting and prolonged weightbearing over the past several weeks. She denies dysuria. She denies repetitive bending or heavy lifting. She denies flares of peripheral joint swelling. She is having trouble sleeping due to her neck pain. A 10-point review of systems is as documented in the rheumatology clinic form and is negative except for chronic fatigue, atypical chest pains with negative workup as mentioned above, occasional palpitations, dyspnea on exertion, joint pains as described above with muscle pains in her back and neck, a.m. stiffness lasting one-half to one hour, occasional paresthesias in the hands, episodic headaches associated with neck pains, muscle weakness in the legs, trouble sleeping because of neck discomfort, skin rash around the Enbrel injection sites which is localized, pruritus of dry skin psoriasis has been controlled. PAST MEDICAL HISTORY: Psoriatic arthritis; psoriasis; osteoarthritis of fingers and cervical spine; hypercholesterolemia; low bone mass; hypothyroidism; adult- onset diabetes mellitus; quinine-induced thrombocytopenia in 2002; history of plantar fasciitis. MEDICATIONS: Synthroid 75 mcg daily. Glucophage 500 mg b.i.d. Baby Aspirin 81 mg daily. Lovastatin 40 mg daily. Methotrexate 5 mg weekly. Atenolol 25 mg b.i.d. Enbrel 50 mg subcutaneous once a week. Fosamax 70 mg weekly. Paroxetine 40 mg daily Magnesium oxide 400 mg daily. Celebrex 100 mg daily. OBJECTIVE: Fatigued-appearing, middle-aged female accompanied by her . Height 5 feet 1-1/2 inches, weight 130 pounds, blood pressure 100/76. General exam is as documented in the rheumatology clinic form and is negative except for dry skin. Complete musculoskeletal exam was performed and revealed no peripheral joint effusions. Tenderness at the right trapezius muscle and right side of her neck with decreased rotation to the right by 40 degrees due to stiffness. Intact range of motion at the right shoulder, which triggered right neck pain. Right- sided paraspinal muscle tenderness in the lumbarregion. Diffuse bony enlargements of the PIP and DIP joints as well as right second and third MCP yaniv nts without focal tenderness. No effusions in the lower extremity joints. LABS: November 2008 hemoglobin A1c 7.3. Hemoglobin 13.7, hematocrit 40.1, creatinine 0.7, AST 50 (greater than 37), ALT 54 (less than 65), albumin 4.0. August 2008 AST was 70 and ALT 68. January 2009 labs are being forwarded from her PCP. ASSESSMENT: 1. Psoriatic arthritis - no active inflammation in her joints today on current regimen. 2. Psoriasis - well controlled on Enbrel. 3. Moderately elevated liver enzymes - most likely secondary to a combination of diabetes with possible fatty liver in conjunction with medications she is currently on; liver enzymes are improved sincemethotrexate dose was decreased in October. 4. Increased right-sided neck and low back pain over the past several months - most likely secondaryto underlying degenerative disk disease and osteoarthritis flaring. Will get updated x-rays. Underlying diabetes - under better control than in the past according to the patient. PLAN: 1. Will obtain x-rays of the cervical, lumbar and thoracic spine today to assess for degenerative disk disease, osteoarthritis and rule out compression fractures or bone lesions. 2. Continue Celebrex, Enbrel and methotrexate at current dosages. 3. Continue ever 2 to 3 months CBC, LFTs and creatinine monitoring for methotrexate toxicity. 4. For her neck and back pain the patient did want to try methocarbamol, which is a mild muscle relaxant at a dose of 750 mg 1 to 2 at bedtime as needed and she was given a quantity of 30 with 2 refills. 5. Follow up 5 months. P.S. L-spine: normal except T10-11 disc space narrowing; C-spine: spondylosis; facet jt hypertrophy. Electronically Signed by Jimmy Burleson MD 03/21/2009 14:34 Jimmy Burleson MD - Jimmy Burleson MD - RASHAWN Job ID: Doc ID: [id number] Ext Doc ID: [id number] cc: Jeanna Smith NP documented in this encounter Miscellaneous Notes Scanned Note-Null - Inpatient, PhysicianMD - 03/27/2009 1145 EST documented in this encounter Plan of Treatment Not on filedocumented as of this encounter Procedures Procedure Name Priority Date/Time Associated Diagnosis Comme nts L SPINE 2-3 VIEWS 03/18/2009 11:56 Result s for this EST procedure are i n the results section. THORACIC SPINE 2-3 03/18/2009 11:55 Resul ts for this VIEWS EST procedure are i n the results section. CERVICAL SPINE 2-3 03/18/2009 11:55 Resul ts for this VIEWS EST procedure are i n the results section. documented in this encounter Results L SPINE 2-3 VIEWS (03/18/2009 11:56 EST) Anatomical Region Laterality Modality Other Specimen Narrative [facility] - 03/18/2009 13:57 EST L SPINE 2-3 VIEWS ??Mar 18, 2009 11:56:0 0 AM Signs and Symptoms/Comments: ??Chronic n lizzy and low and mid back pains. Findings: Two views of the lumbosacral s pine demonstrate intact pedicles and sacroiliac joints. Femoral joint spaces are normal. There is mild aortic vascular calcificat ion. There is T10-T11 disc space narrowing and calcification with a nterior osteophyte formation. ?? Impression colon fairly unremarkable exa mination of the lumbosacral spine. Procedure Note 03/18/2009 L SPINE 2-3 VIEWS Mar 18, 2009 11:56:00 AM Signs and Symptoms/Comments: Chronic nec k and low and mid back pains. Findings: Two views of the lumbosacral s pine demonstrate intact pedicles and sacroiliac joints. Femoral joint spaces are normal. There is mild aortic vascular calcificat ion. There is T10-T11 disc space narrowing and calcification with a nterior osteophyte formation. Impression colon fairly unremarkable exa mination of the lumbosacral spine. Performing Organization Address City/State/ZIP Code Phon e Number [facility] THORACIC SPINE 2-3 VIEWS (03/18/2009 11:55 EST) Anatomical Region Laterality Modality Other Specimen Narrative [facility] - 03/18/2009 13:06 EST THORACIC SPINE 2-3 VIEWS ??Mar 18, 2009 11:55:00 AM Signs and Symptoms/Comments: < Chronic n lizzy and low and mid back pains. > Comparison: May 18, 2007 Findings: AP and lateral views of the th oracic spine were obtained. There is mild kyphosis in the thoracic s pine unchanged from the comparison study. Mild scoliosis convex to the left is present in the upper thoracic spine, also stable. There is multilevel degenerative disc disease with disc space narrowing a nd osteophyte formation. The vertebral body heights are preserved. Th ere is no significant change noted since comparison imaging. Impression: No significant change in deg enerative changes in the thoracic spine. Procedure Note 03/18/2009 THORACIC SPINE 2-3 VIEWS Mar 18, 2009 11 :55:00 AM Signs and Symptoms/Comments: < Chronic n lizzy and low and mid back pains. > Comparison: May 18, 2007 Findings: AP and lateral views of the th oracic spine were obtained. There is mild kyphosis in the thoracic s pine unchanged from the comparison study. Mild scoliosis convex to the left is present in the upper thoracic spine, also stable. There is multilevel degenerative disc disease with disc space narrowing a nd osteophyte formation. The vertebral body heights are preserved. Th ere is no significant change noted since comparison imaging. Impression: No significant change in deg enerative changes in the thoracic spine. Performing Organization Address City/State/ZIP Code Phon e Number [facility] CERVICAL SPINE 2-3 VIEWS (03/18/2009 11:55 EST) Anatomical Region Laterality Modality Other Specimen Narrative [facility] - 03/18/2009 15:55 EST CERVICAL SPINE SERIES March 18, 2009 11:55:00 AM Signs and Symptoms: ?? Chronic neck and low and mid back pains. Comparison: May 18, 2007. Findings: Open mouth odontoid, AP and lateral (inc luding swimmer's) views of the cervical spine were obtained. Craniocervical and atlantoaxial alignmen t are anatomic. No maria esther or retrolisthesis is identified. Spondyloti c changes are demonstrated throughout the cervical spine, most sanju re at C5-C6. This have progressed slightly since the prior stud y. Facet joint hypertrophy is demonstrated at several levels, most pro minently at C2-C3 and C3-C4 as seen on the AP films. There are small calcifications in the so ft tissues lateral to the cervical spine on the AP view. These lik anil reflect mild carotid bifurcation atherosclerosis. Procedure Note 03/18/2009 CERVICAL SPINE SERIES March 18, 2009 11:55:00 AM Signs and Symptoms: Chronic neck and low and mid back pains. Comparison: May 18, 2007. Findings: Open mouth odontoid, AP and lateral (inc luding swimmer's) views of the cervical spine were obtained. Craniocervical and atlantoaxial alignmen t are anatomic. No mariae sther or retrolisthesis is identified. Spondyloti c changes are demonstrated throughout the cervical spine, most sanju re at C5-C6. This have progressed slightly since the prior stud y. Facet joint hypertrophy is demonstrated at several levels, most pro minently at C2-C3 and C3-C4 as seen on the AP films. There are small calcifications in the so ft tissues lateral to the cervical spine on the AP view. These lik anil reflect mild carotid bifurcation atherosclerosis. Performing Organization Address City/State/ZIP Code Phon e Number [facility] documented in this encounter Visit Diagnoses Not on filedocumented in this encounter Care Teams Mobile Ui/Ux Designer Relationship Specialty Start Date End Date Jeanna Smith NP PCP - General 06/14/08 [facility] [address] [place] [address] documented as of this encounter
--- OUTSIDE RECORDS SUMMARY | 2021-09-05 01:12 | XMS_ITS | Encounter Summary ---
:1950 Author Organization [facility] Address [address] [place] [address] Care Team Providers Name Role Phone Jeanna Smith PERFORMANCE ARCHITECT Primary Care Provider Reason for Visit Reason Onset Date Comments Medications Refill 05/21/2011 Encounter Details Date Type Department Care Team Description 05/21/2011 Refill [facility] Jimmy Burleson Chi, MD Medications Refill Rheumatology & Immunology [address] [place] [address], [address] [place], [place] [id number] [place] [address] [phone] (Wo rk) Social History Tobacco Use Types Packs/Day Years Used Date Never Smoker Smokeless Tobacco: Never Used Alcohol Use Standard Drinks/Week Comments No 0 (1 standard drink = 0.6 oz pure alcoho l) Sex Assigned at Date Recorded Not on file documented as of this encounter Ordered Prescriptions Prescription Sig Dispensed Refills Start Date End Date methotrexate 2.5 mg tablet Take 2 Tabs by 24 Tab 1 05/2008/17/2011 mouth once a week. Need labs every 3 mos. documented in this encounter Plan of Treatment Not on filedocumented as of this encounter Visit Diagnoses Not on filedocumented in this encounter Discontinued Medications Medication Sig Discontinue Reason Start Date End Date methotrexate 2.5 mg tablet Take 2 Tabs by Reorder 11/05/2010 05/21/2011 mouth once a week. documented as of this encounter Care Teams Flatbed Press Operator Relationship Specialty Start Date End Date Jaenna Smith, PERFORMANCE ARCHITECT PCP - General 06/14/08 [facility] [address] [place] [address] documented as of this encounter
--- OUTSIDE RECORDS SUMMARY | 2021-09-05 01:12 | XMS_ITS | Encounter Summary ---
:1950 Author Organization [facility] Address [address] [place] [address] Care Team Providers Name Role Phone Jeanna Smith SIGNAL PERSON Primary Care Provider Encounter Details Date Type Department Care Team Description 06/18/2008 Hospital Encounter [facility] - Jimmy Burleson Chi, MD [facility] [phone] [place] [address], [place] [phone] (Wo rk) Social History Tobacco Use Types Packs/Day Years Used Date Never Assessed Sex Assigned at Date Recorded Not on file documented as of this encounter Discharge Disposition Disposition Code Departure Means Destination Home documented in this encounter Plan of Treatment Not on filedocumented as of this encounter Visit Diagnoses Not on filedocumented in this encounter Care Teams Vp Ad [employer] Relationship Specialty Start Date End Date Jeanna Smith, SIGNAL PERSON PCP - General 06/14/08 [facility] [address] [place], [place] [address] documented as of this encounter
--- OUTSIDE RECORDS SUMMARY | 2021-09-05 01:12 | XMS_ITS | Encounter Summary ---
:1950 Author Organization [facility] Address [address] [place] [address] Care Team Providers Name Role Phone Jeanna Smith UNLOADER Primary Care Provider Reason for Visit Reason Onset Date Comments Other 05/07/2010 OPEN BY MISTAKE Encounter Details Date Type Department Care Team Description 05/07/2010 Telephone [facility] Jimmy Burleson Chi, MD Other (OPEN BY [facility] & [facility], [address], [address] [place] [address] [place], [place] [phone] (Wo rk) Social History Tobacco Use Types Packs/Day Years Used Date Never Smoker Alcohol Use Standard Drinks/Week Comments No 0 (1 standard drink = 0.6 oz pure alcoho l) Sex Assigned at Date Recorded Not on file documented as of this encounter Miscellaneous Notes Telephone Encounter - Rosemary Guerra - 05/07/2010 1022 EDT OPEN IN ERROR documented in this encounter Plan of Treatment Not on filedocumented as of this encounter Visit Diagnoses Not on filedocumented in this encounter Care Teams Deportation Officer Relationship Specialty Start Date End Date Jeanna Smith, UNLOADER PCP - General 06/14/08 [facility] [address] [place], [place] [id number] documented as of this encounter
--- OUTSIDE RECORDS SUMMARY | 2021-09-05 01:12 | XMS_ITS | Encounter Summary ---
:1950 Author Organization [facility] Address [address] [place] [address] Care Team Providers Name Role Phone Jeanna Smith NP Primary Care Provider Reason for Visit Reason Onset Date Comments Medications Refill 09/02/2009 Enbrel sureclick 50 mg/ml. Inject into skin once weekly Encounter Details Date Type Department Care Team Description 09/02/2009 Refill [facility] Jimmy Burleson Chi, MD Medications Refill Rheumatology & [address] (Enbrel sureclick 50 Immunology - Main [facility] mg/ml. Inject into [address], [address] skin once weekly) [place] [address] [place], [place] [phone] (Wo rk) Social History Tobacco Use Types Packs/Day Years Used Date Never Assessed Sex Assigned at Date Recorded Not on file documented as of this encounter Ordered Prescriptions Prescription Sig Dispensed Refills Start Date End Date Etanercept (ENBREL Inject 50 mg into 12 Each 1 09/10/2009 05/14/2010 SURECLICK) 50 mg/mL (0.98 the skin once a mL) PnIj week. Etanercept (ENBREL Inject 50 mg into 4 Syringe 6 09/02/2009 09/10/2009 SURECLICK) 50 mg/mL (0.98 the skin once a mL) PnIj week. documented in this encounter Plan of Treatment Not on filedocumented as of this encounter Visit Diagnoses Not on filedocumented in this encounter Discontinued Medications Medication Sig Discontinue Reason Start Date End Date Etanercept (ENBREL Inject 50 mg into Reorder 08/22 SURECLICK) 50 mg/mL the skin once a (0.98 mL) PnIj week. Etanercept (ENBREL Inject 50 mg into Reorder 09/02/200908/23 SURECLICK) 50 mg/mL the skin once a (0.98 mL) PnIj week. documented as of this encounter Care Teams Tie Buyer Relationship Specialty Start Date End Date Jeanna Smith NP PCP - General 06/14/08 [facility] [address] [place] [address] documented as of this encounter
--- OUTSIDE RECORDS SUMMARY | 2021-09-05 01:12 | XMS_ITS | Encounter Summary ---
:1950 Author Organization Address [address] [place] [address] Care Team Providers Name Role Phone Jeanna Smith NP Primary Care Provider Encounter Details Date Type Department Care Team Description 05/18/2007 Before [facility] - Jimmy Burleson Ch, i, MD Converted Visit Maple conversion [address] [facility] ([facility]) [address] [place] [address] [address], [place] [phone] (Wo rk) Social History Tobacco Use Types Packs/Day Years Used Date Never Assessed Sex Assigned at Date Recorded Not on file documented as of this encounter Progress Notes Jimmy Burleson Chi, MD - 11/19/2008 0504 EDT DIVISION OF RHEUMATOLOGY PROGRESS/FOLLOWUP NOTE - 05/18/2007 PROBLEM Psoriatic arthritis/psoriasis. CHIEF COMPLAINT Ongoing diffuse joint pains; Methotrexate not helpful. HISTORY OF PRESENT ILLNESS At the last Rheumatology visit October 2006, the patient was started on a low dose of injectable Methotrexate at 0.3 ml or 7.5 mg weekly which she did for 1 month and did not feel any improvement and, therefore, stopped the Methotrexate. Patient also never started the low dose of Prednisone of 2.5 or 5 mg daily to ease her joint pains. Over the past 6 months, the patient has had chronic low back pain, as well as midback and neck pains which are with herall the time. She has an upcoming bone density scan to see if she has osteoporosis. She does have episodes of her legs getting weak as she stands at the sink doing dishes and episodic shooting pains from the left buttock into the left thigh. Shealsogets shooting pains throughout both hands and wrists which she tries to keep flexible by crocheting. She has chronic deformities in the hands and chronic MCP swelling which has not worsened. Feet are painful at the heels and insteps with prolonged weightbearing. Neck is frequently sore and stiff and triggers headaches. Shoulders are frequently sore. She denied pain or swelling at the knees. Patient is off diclofenac because of increased dysphagia and she has pending upper endoscopy and lower colonscopy for hem-positive stool. She is currently using Tylenol as needed for pain with some benefit. REVIEW OF SYSTEMS A 10-point review of systems is as documented on the Rheumatology Clinic Followup Form - Negative except for chronic fatigue, dysphagia for which she has upcoming endoscopic studies scheduled, also to work up hemoccult -positive stools; diabetes has been good with hemoglobin A1c reportedly at 6.1. Joint pains as noted above, morning stiffness lasting 30 minutes, occasional paresthesias in the fingers, headaches triggered by her neck pain, active psoriasis in the scalp, but quiescent elsewhere. 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 MEDICATIONS 1. Paxil 20 mg daily. 2. Synthroid 112 mcg daily. 3. Glucophage 500 mg b.i.d. 4. Baby aspirin 81 mg daily. 5. Lovastatin 40 mg daily. 6. Atenolol 25 mg daily. 7. Paxil 10 mg daily. 8. Omeprazole 20 mg daily. EXAM Pleasant, petite, middle-aged female in no distress. Height 5'2-14, weight 121 pounds, blood pressure 118/70, pulse 16 and regular, respiratory rate 12. Skin revealed thick, scaly plaques in the scalp concentrated around the occipital area. No nail pitting or scales noted elsewhere. HEENT exam revealed clear sclerae. No nasopharyngeal lesions. No adenopathy. Lungs clear. Cardiac normal S1, S2, no murmurs, rubs or gallops. [place], stiff. Neurologic exam revealed the patient to be oriented X3. Joint Exam: Cervical spine with decreased range of motion in all directions. Pain at both shoulders with active internal range rotation. Right shoulder crepitus on passive range of motion. Left shoulder had pain with passive external rotation which was otherwise intact. Thoracic and upper lumbar spines were tender to deep palpation. Elbows with no swelling or tenderness. Slight synovial thickening atthe left wrist which was tender with decreased flexion and extension. Right wrist had no swelling ortenderness. There was synovial thickening and bony enlargements at bilateral second and third MCP joints. There were also diffuse bony enlargements of the PIP and DIP joints of both hands, along with thickening of the flexor tendons at numerous fingers at both hands. Hips, knees, ankles all had intact range of motion without effusions at the knees or ankles. MTP joints were without acute swelling or tenderness. LABS 12/31/2006: Urine protein electrophoresis was unremarkable. WBC 8.4, hemoglobin 14.5, hematocrit 42.9, platelets 225,000, creatinine 0.7, AST 21, ALT 38, albumin 4.2, alk-phos 72. ASSESSMENT 1. Psoriatic arthritis - Overall status quo with chronic synovial changes mostly in the hands. Patient has ongoing diffuse joint pains. 2. Psoriasis - Most active in the scalp. 3. Ongoing back pain with possible radicular component, most likely secondary to lumbar and thoracicspine degenerative disk disease, but cannot rule out compression fractures. 4. Underlying osteoarthritis in the spine attributing to chronic pain. PLAN Patient did not want to retry a higher dose of injectable Methotrexate. Patient states she currentlyhas insurance coverage for Enbrel whichwe will retry her on since she had formerly been on it with good results. We will get an updated PPD test through her primary care provider and this request was given to the patient. We will get updated x-rays today of the cervical, thoracic and lumbarspines looking for occult fracture, as well as to gauge the degree of osteoarthritis. Patient advised to use Advil 2 tablets t.i.d. as needed for joint pains after her endoscopy studies. Patient has an upcoming bone density scan scheduled. We will contact her to restart Enbrel once we get insurance approval. Routine followup in 4-5 months. P.S. Xrays show DJD, no fractures. Letter sent to pt. re: results. Signed by Jimmy Burleson MD 05/26/2007 13:29 Jimmy Burleson MD - Jimmy Burleson MD - [facility] Job ID: [id number] Doc ID: [id number] cc: Jeanna Smith NP documented in this encounter Plan of Treatment Not on filedocumented as of this encounter Visit Diagnoses Not on filedocumented in this encounter Care Teams Shank Tapper Relationship Specialty Start Date End Date Jeanna Smith NP PCP - General 06/14/08 [facility] [address] [place] [address] documented as of this encounter
--- OUTSIDE RECORDS SUMMARY | 2021-09-05 01:12 | XMS_ITS | Encounter Summary ---
:1950 Author Organization [facility] Address [address] [place] [address] Care Team Providers Name Role Phone Jeanna Smith COMPOSITE LAMINATOR Primary Care Provider Reason for Visit Reason Onset Date Comments Medications Refill 08/30/2009 Encounter Details Date Type Department Care Team Description 08/30/2009 Refill [facility] Jimmy Burleson Chi, MD Medications Refill Rheumatology & Immunology [address] [place] [address], [address] [place], [place] [id number] [place] [phone] (Wo rk) Social History Tobacco Use Types Packs/Day Years Used Date Never Assessed Sex Assigned at Date Recorded Not on file documented as of this encounter Plan of Treatment Not on filedocumented as of this encounter Visit Diagnoses Not on filedocumented in this encounter Care Teams Soda Room Operator Relationship Specialty Start Date End Date Jeanna Smith, LUIS PCP - General 06/14/08 [facility] [address] [place], [place] [phone] documented as of this encounter
--- OUTSIDE RECORDS SUMMARY | 2021-09-05 01:12 | XMS_ITS | Encounter Summary ---
:1950 Author Organization [facility] Address [address] [place] [address] Care Team Providers Name Role Phone Jeanna Smith MATHEMATICAL TECHNICIAN Primary Care Provider Reason for Visit Reason Onset Date Comments Prior Auth, Medication 08/27/2011 Encounter Details Date Type Department Care Team Description 08/27/2011 Telephone [facility] Jimmy Burleson Chi, MD Prior Auth, Rheumatology & [address] [place] [address] Immunology - [facility], [address], [address] [place], [place] [address] [place] [address] [phone] (Wo rk) Social History Tobacco Use Types Packs/Day Years Used Date Never Smoker Smokeless Tobacco: Never Used Alcohol Use Standard Drinks/Week Comments No 0 (1 standard drink = 0.6 oz pure alcoho l) Sex Assigned at Date Recorded Not on file documented as of this encounter Miscellaneous Notes Telephone Encounter - Jeanna Nova - 08/27/2011 1317 EDT The patient has been re-authorized for Humira under her [employer] policy. This authorization is validfrom 08/23/11-09/21/12. documented in this encounter Plan of Treatment Not on filedocumented as of this encounter Visit Diagnoses Not on filedocumented in this encounter Care Teams Halal Meat Packer Relationship Specialty Start Date End Date Jeanna Smith, MATHEMATICAL TECHNICIAN PCP - General 06/14/08 [facility] [address] [place] [address] documented as of this encounter
--- OUTSIDE RECORDS SUMMARY | 2021-09-05 01:12 | XMS_ITS | Encounter Summary ---
:1950 Author Organization [facility] Address [address] [place] [address] Care Team Providers Name Role Phone Jeanna Smith SOAKER HIDES Primary Care Provider Encounter Details Date Type Department Care Team Description 08/30/2009 Abstract Used for ABSTRACTING Data Jeanna Smith NP [phone] [facility] [address] [place] [address] (Wo rk) Social History Tobacco [...] Sig Dispensed Refills Start Date End Date atenolol (TENORMIN) 25 mg Take 1 Tab by mouth 0 0 04/07/2010 tablet daily. added in this encounter Care Teams Soap Worker Relationship Specialty Start Date End Date Jeanna Smith NP PCP - General 06/14/08 [facility] [address] [place], [place] [id number] documented as of this encounter
--- OUTSIDE RECORDS SUMMARY | 2021-09-05 01:12 | XMS_ITS | Encounter Summary ---
:1950 Author Organization [facility] Address [address] [place] [address] Care Team Providers Name Role Phone Jeanna Smith NP Primary Care Provider Encounter Details Date Type Department Care Team Description 10/22/2008 Hospital Encounter [facility] - Jimmy Burleson Chi, MD [address] [address] [address], [place] [phone] (Wo rk) Social History Tobacco Use Types Packs/Day Years Used Date Never Assessed Sex Assigned at Date Recorded Not on file documented as of this encounter Discharge Disposition Disposition Code Departure Means Destination Auto Discharge Home documented in this encounter Progress Notes Jimmy Burleson Chi, MD - 10/22/2008 0000 EDT DIVISION OF RHEUMATOLOGY PROGRESS/FOLLOWUP NOTE - 10/22/2008 PROBLEM Psoriatic arthritis/psoriasis. CHIEF COMPLAINT Here for followup, severe right foot pain due to fractures. HISTORY OF PRESENT ILLNESS The patient was visiting friends in [place] and fell down their spiral stairs several weeks ago suffering fracture of the metatarsal bones of the right fourth and fifth toes. The patient started methotrexate at the last visit which has improved the bilateral hand pain and swelling. Finger joints are still stiff. She has chronic aching in the lower aspect of her rib cage and over the anterior costochondral junctions which she has had for months. Over the past several days she has had aching in both thigh muscle when sitting. The bottom of the left foot is sore with prolonged weight-bearing. Currently she has pain at night in the right foot where she fractured her toes keeping her from sleeping well but otherwise the rest of the joints are not keeping her up at night. Diabetes is not well controlled with recent hemoglobin A1c reportedly greater than 9. A 10 point review of systems is as documented on the rheumatology clinic followup form - negative except for chronic fatigue, dyspnea on exertion, occasional dyspepsia, joint pains as mentioned above with a.m. stiffness lasting 30 minutes, trouble sleeping because of the right foot pain, psoriasis is o verall much improved with only a few small plaques in the scalp. PAST MEDICAL HISTORY Psoriatic arthritis; psoriasis; osteoarthritis of fingers and cervical spine; hypercholesterolemia; low bone mass; hypothyroidism; adult onset diabetes mellitus; quinine induced thrombocytopenia in 2002; bilateral plantar fasciitis. MEDICATIONS 1. Synthroid 75 mcg daily. 2. Glucophage 500 mg b.i.d. 3. Baby aspirin 81 mg daily. 4. Lovastatin 40 mg daily. 5. Methotrexate 7.5 mg once a week. 6. Atenolol 25 mg daily. 7. Enbrel 50 mg subcutaneous once a week. 8. Fosamax 70 mg weekly. 9. Paroxetine 40 mg daily. 10. Mag Oxide 400 mg daily. PHYSICAL EXAMINATION Quiet middle-aged female in no distress. Height 5 feet 1-1/2 inches, weight 125- 1/2 pounds, blood pressure 112/76. General: Documented in the rheumatology clinic followup form and was negative except for one psoriatic plaque in the scalp; antalgic gait. Complete musculoskeletal exam was performed and was significant for mild enlargement of the right second and third MCP joints of the right hand with minimal tenderness. Diffuse bony enlargements of the PIP and DIP joints of both hands. No effusions in the knees or ankles. Tenderness of the right fourth and fifth metatarsal bones of the foot. No acute swelling in the MTP joints. LABORATORY 06/18/2008 - WBC 8, hemoglobin 14.3, platelets 206, AST 54, ALT 29, albumin 4.9. We had sent a letter to the patient regarding obtaining repeat LFTs and serum protein electrophoresis since total protein was elevated at 8.7. The patient did so through her local lab with normal LFTs found. ASSESSMENT 1. Psoriatic arthritis - improved MCP inflammation and pain since addition of methotrexate to Enbrel. The patient tolerating the methotrexate tablets. 2. Psoriasis - minimal and isolated to the scalp at this time. 3. Recent right fourth and fifth metatarsal fractures after a fall. 4. Poorly controlled diabetes according to patient report - patient has followup with PCP. 5. Underlying osteoarthritis contributing to stiffness in her joints. PLAN 1. Will add Celebrex 100 mg daily to patient's regimen to see if this will control some of her current aches and pains. The patient was informed of potential risks and benefits of the use of Celebrex. 2. Patient advised to use a stiff soled shoe on the right foot to minimize flexion of the metatarsals which will ease pain until the fractures heal. 3. Patient requested that we apply to Medicaid to help cover the patient's co- pay for Enbrel which is provided by [employer]. 4. The patient was instructed to increase calcium and vitamin D intake by taking two to three calcium with vitamin D tablets daily. She is already on Fosamax for low bone mass. 5. Continue every three month CBC and chemistries monitoring for methotrexate toxicity. 6. Routine followup in four to five months. P.S. Labs from PCP- 10/23/08 glucose 157, AST 70 (>37), ALT 68 (>65), Albumin 3.9. Hgb A1c 6.9. SPEP neg. Will notify pt of lab results and to decrease MTX to 2 tabs weekly. Electronically Signed by Jimmy Burleson MD 10/24/2008 09:15 Jimmy Burleson MD - Jimmy Burleson MD - [facility] Job ID: [id number] Doc ID: [id number] cc: Jeanna Smith NP documented in this encounter Plan of Treatment Not on filedocumented as of this encounter Visit Diagnoses Not on filedocumented in this encounter Care Teams Informatics Specialist Relationship Specialty Start Date End Date Jeanna Smith NP PCP - General 06/14/08 [facility] [address] [place] [address] documented as of this encounter
--- OUTSIDE RECORDS SUMMARY | 2021-09-05 01:12 | XMS_ITS | Encounter Summary ---
:1950 Author Organization [facility] Address [address] [place] [address] Care Team Providers Name Role Phone Jeanna Smith NP Primary Care Provider Encounter Details Date Type Department Care Team Description 11/21/2020 Lab Requisition [facility] Outr Resulting Lab, Pathology & Laboratory Provider [facility] [address] [place] [address] Social History Tobacco Use Types [...] Procedure Name Priority Date/Time Associated Comments Diagnosis THYROPEROXIDASE ANTIBODY Routine 11/21/2020 11:38 Results for this EDT procedure are i n the results section. PTH INTACT Routine 11/21/2020 11:38 Results for this EDT procedure are i n the results section. ANTI THYROGLOBULIN Routine 11/21/2020 11:38 Resul ts for this EDT procedure are i n the results section. documented in this encounter Results THYROPEROXIDASE ANTIBODY (11/21/2020 11:38 EDT) Pathologist Sig nature Thyroperoxidase Ab 57 <=60 U/mL [facility] Specimen Blood - Venous blood (substance) Performing Organization Address City/State/ZIP Code Phon e Number [facility] [address] [place] [address] SERVICES ANTI THYROGLOBULIN (11/21/2020 11:38 EDT) Pathologist Sig nature Anti-Thyroglobulin <15 <=60 U/mL [facility] Specimen Blood - Venous blood (substance) Performing Organization Address City/[facility]/ZIP Code Phon e Number [facility] [address] [place] [address] SERVICES PTH INTACT (11/21/2020 11:38 EDT) Pathologist Sig nature Intact PTH 21 19 - 88 pg/mL [facility] Specimen Blood - Venous blood (substance) Performing Organization Address City/[facility] Code Phon e Number [facility] [address] [place] [address] SERVICES documented in this encounter Visit Diagnoses Not on filedocumented in this encounter Care Teams Mail Handlers Supervisor Relationship Specialty Start Date End Date Jeanna Smith NP PCP - General 06/14/08 [facility] [address] [place] [address] documented as of this encounter
--- OUTSIDE RECORDS SUMMARY | 2021-09-05 01:12 | XMS_ITS | Encounter Summary ---
:1950 Author Organization [facility] Address [address] [place] [address] Care Team Providers Name Role Phone Jeanna Smith NP Primary Care Provider Reason for Visit Reason Comments Joint Pain legs, and numb in right leg from knee down Encounter Details Date Type Department Care Team Description 08/17/2011 Office Visit [facility] [place] Jimmy Burleson Chi, MD P[place]iatic [place] Rheumatology & [address] [place] [address] Osteoarthri tis cervical spine; Immunology - [facility] Diabetes mellitus ([facility] [facility], [facility]; [address] [place] [address] Pavilion, Level 5 Amnesia; [place], [place] [id number] [place] [address] Encounter for long-term (cur rent) use of other medications [phone] Social History Tobacco Use Types Packs/Day Years [...] Body Mass Index 22.49 08/17/2011 1310 EDT documented in this encounter Ordered Prescriptions Prescription Sig Dispensed Refills Start Date End Date methotrexate 2.5 mg Take 2 Tabs by 24 Tab 1 08/17/2011 tabletIndications: mouth once a week. Psoriatic arthritis Need labs every 3 ([facility]) ([facility]) mos. celecoxib (CELEBREX) 100 mg Take 1 Cap by 60 Cap 5 08/1602/29/2012 capsuleIndications: mouth 2 times Psoriatic arthritis daily. ([facility]) ([facility]), Osteoarthritis cervical spine documented in this encounter Progress Notes Jimmy Burleson Chi, MD - 08/17/2011 1316 EDT Images from the original note were not included. Subjective: Patient ID: Shereen Vega is an 61 y.o. female. Chief Complaint Patient presents with ??? Joint Pain legs, and numb in right leg from knee down HPI Comments: Has had 3 episodes of amnesia lasting several hrs each time since Mar. MRI scans done at [facility] in Mar,May 2011- were unremarkable per Dr Foley (neuro) at [facility]. First episode of amnesia 3 yrs ago before starting Enbrel per pt. Numbness of R leg around the R knee for 3 weeks. Stairs are difficult due to leg weakness. Does have diabetic neuropathy- Diabetes is all over the place, ranges from 59 to 179 to 289. Denies jts swelling. Feels imbalance with standing, walking- has fallen 3 weeks ago. Denies any other joint pains or swelling. AM stiffness: 30 min Physical activity: House chores, visits with daughter. Cannot exercise. Patient Active Problem List Diagnoses ??? Psoriatic arthritis ??? Psoriasis ??? Osteoarthritis cervical spine ??? Hypercholesterolemia ??? Hypothyroidism ??? Diabetes mellitus ??? Helicobacter pylori (H. pylori) ??? Depression ??? Osteopenia Past Medical History Diagnosis Date ??? Plantar fasciitis bilateral ??? Thrombocytopenia 03/18/2009 Quinine-induced thrombocytopenia in 07/2002 Current Outpatient Prescriptions on File Prior to Visit Medication Sig Dispense Refill ??? methotrexate 2.5 mg tablet Take 2 Tabs by mouth once a week. Need labs every 3 mos. 24 Tab 1 ??? celecoxib (CELEBREX) 100 mg capsule Take 1 Cap by mouth 2 times daily. 60 Cap 5 ??? adalimumab (HUMIRA PEN) 40 mg/0.8 mL PnKt Inject 0.8 mL into the skin every 14 days. Every two weeks. 6 Pen 3 ??? levothyroxine (SYNTHROID) 75 mcg tablet Take 75 mcg by mouth daily. ??? metformin (GLUCOPHAGE) 1,000 mg tablet Take 1,000 mg by mouth 2 times daily. ??? DOCUSATE CALCIUM (STOOL SOFTENER ORAL) Take by mouth daily. ??? calcium carbonate (OS-MANDI) 500 mg (1,250 mg) tablet Take 1 Tab by mouth 2 times daily. ??? atenolol (TENORMIN) 25 mg tablet Take 1 Tab by mouth daily. ??? aspirin chewable (BABY ASPIRIN) 81 mg tablet Take 1 Tab by mouth daily. ??? lovastatin (MEVACOR) 40 mg tablet Take 1 Tab by mouth daily. ??? alendronate (FOSAMAX) 70 mg tablet Take 1 Tab by mouth once a week. ??? paroxetine (PAXIL) 40 mg tablet Take 1 Tab by mouth daily. ??? magnesium oxide (MAG-OX) 400 mg tablet Take 1 Tab by mouth daily. - levetiracetam (KEPPRA) 500 mg tablet; Take 500 mg by mouth 2 times daily. 1/2 tab twice a day - glipiZIDE (GLUCOTROL) 5 mg tablet; Take 5 mg by mouth daily. Review of Systems HENT: Positive for neck pain. Musculoskeletal: Positive for back pain and joint pain. - See HPI REVIEW OF SYSTEMS: Yes No Yes No Fever x Joint pain x Fatigue x Muscle pain x Night sweats x Morning stiffness x Weight change x If yes, duration Gain or loss? Loss 5 lbs Numbness/tingling x Hand and right leg Eye discomfort x Headaches x Mouth/Nose sores x Muscle weakness x Chest pain x Burning on urination x Palpitations x Dark/bloody urine x Shortness of breath x From stairs Frequent urination x Cough x Trouble sleeping x Nausea/vomiting x Change in mood x Stomach pains/cramps x Nervous or anxious x Blood in stools x Sad or depressed x Diarrhea x Skin rash/changes x Constipation x Sun induced rash x Itching x Hand/Foot color change w/cold x Hair Loss x Objective: BP 90/60 Pulse 66 Resp 18 Ht 156.2 cm (61.5) Wt 54.885 kg (121 lb) BMI 22.49 kg/m2 Physical Exam Vitals reviewed. Constitutional: She is oriented to person, place, and time. She appears well- nourished. No distress. Fatigued appearing petite older female, accompanied by VERONIQUE: Head: Normocephalic and atraumatic. Mouth/Throat: Oropharynx is clear and moist. edentulous Eyes: Conjunctivae and EOM are normal. Pupils are equal, round, and reactive to light. Neck: No thyromegaly present. Cardiovascular: Normal rate, regular rhythm and normal heart sounds. No murmur heard. Pulmonary/Chest: Breath sounds normal. No respiratory distress. She has no wheezes. She has no rales. Abdominal: Soft. There is no hepatomegaly. There is no tenderness. Musculoskeletal: A complete msk exam including bilateral upper and lower extremities was done and was normal except for abnormal findings shown on homonculus. Neurological: She is alert and oriented to person, place, and time. No cranial nerve deficit. Gait (unsteady) abnormal. Skin: No rash noted. There is pallor. Psychiatric: She has a normal mood and affect. Her behavior is normal. [facility] labs January 2011 CMP, CBC normal. Hemoglobin A1c 6.5. ESR 35;TtTG antibody negative. Assessment: Plan: Shereen was seen today for joint pain. Diagnoses and associated orders for this visit: Psoriatic arthritis No active inflammation on current regimen; con't low dose methotrexate and Celebrex, with q 3 to 4 mo. CBC, CMP monitoring for toxicity. Reauthorize [employer]. - Comprehensive Metabolic Panel (CMP); Future - C-Reactive Protein; Future - Hemagram & Differential; Future - Sed. Rate:Westergren; Future - celecoxib (CELEBREX) 100 mg capsule; Take 1 Cap by mouth 2 times daily. - methotrexate 2.5 mg tablet; Take 2 Tabs by mouth once a week. Need labs every 3 mos. Osteoarthritis cervical spine Contributes to neck pains and shoulder paresthesias. - celecoxib (CELEBREX) 100 mg capsule; Take 1 Cap by mouth 2 times daily. Diabetes mellitus Questionable control; pt has neuropathy; unclear if amnesia is related to TIA's? 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 Pt is undergoing w/u at [facility]. Amnesia Unclear etiology- undergoing w/u by neuro at [facility]. Doubt related to chronic TNF inhibition- though must keep in mind possibility of PML. Encounter for long-term (current) use of other medications - Comprehensive Metabolic Panel (CMP); Future - C-Reactive Protein; Future - Hemagram & Differential; Future - Sed. Rate:Westergren; Future Barriers to learning identified: No Patient verbalizes understanding and agrees with plan Yes F/u 6 mos. Jimmy Burleson MD Connie Matthews - 08/17/2011 1311 EDT REVIEW OF SYSTEMS: Yes No Yes No Fever x Joint pain x Fatigue x Muscle pain x Night sweats x Morning stiffness x Weight change x If yes, duration Gain or loss? Loss 5 lbs Numbness/tingling x Hand and right leg Eye discomfort x Headaches x Mouth/Nose sores x Muscle weakness x Chest pain x Burning on urination x Palpitations x Dark/bloody urine x Shortness of breath x From stairs Frequent urination x Cough x Trouble sleeping x Nausea/vomiting x Change in mood x Stomach pains/cramps x Nervous or anxious x Blood in stools x Sad or depressed x Diarrhea x Skin rash/changes x Constipation x Sun induced rash x Itching x Hand/Foot color change w/cold x Hair Loss x documented in this encounter Plan of Treatment Not on filedocumented as of this encounter Results C-REACTIVE PROTEIN (08/17/2011 13:52 EDT) Pathologist Sig nature C-Reactive Protein <0.7 <1.0 mg/dl [facility] Specimen Blood specimen (specimen) Performing Organization Address City/State/ZIP Code Phon e Number [facility] [address] [place] [address] SERVICES [facility] [address] [place] [address] documented in this encounter Visit Diagnoses Diagnosis Psoriatic arthritis (HCC-CMS) (HCC) Psoriatic arthropathy Osteoarthritis cervical spine Cervical spondylosis without myelopathy Diabetes mellitus (HCC) Type II or unspecified type diabetes amy litus without mention of complication, not stated as uncontrolled Imbalance Abnormality of gait Amnesia Memory loss Encounter for long-term (current) use of other medications documented in this encounter Discontinued Medications Medication Sig Discontinue Reason Start Date End Date celecoxib (CELEBREX) 100 mg Take 1 Cap by Reorder 02/03/2011 08/17/2011 capsuleIndications: mouth 2 times Psoriatic arthritis daily. ([facility]) ([facility]), Osteoarthritis cervical spine methotrexate 2.5 mg tablet Take 2 Tabs by Reorder 05/21/2011 08/17/2011 mouth once a week. Need labs every 3 mos. documented as of this encounter Historical Medications This list may reflect changes made after this encounter. Medication Sig Dispensed Refills Start Date End Date glipiZIDE (GLUCOTROL) 5 mg Take 5 mg by mouth 0 tablet daily. levetiracetam (KEPPRA) 500 Take 500 mg by 0 mg tablet mouth 2 times daily. 1/2 tab twice a day added in this encounter Orders Lab Orders Without Results Count Last Ordered Date Fir st Ordered Date COMPREHENSIVE METABOLIC PANEL (CMP) 1 08/17/2011 HEMAGRAM AND DIFFERENTIAL 1 08/17/2011 SED. RATE:WESTERGREN 1 08/17/2011 documented in this encounter Care Teams Miter Saw Operator Relationship Specialty Start Date End Date Jeanna Smith NP PCP - General 06/14/08 [facility] [address] [place] [address] documented as of this encounter
--- OUTSIDE RECORDS SUMMARY | 2021-09-05 01:12 | XMS_ITS | Encounter Summary ---
:1950 Author Organization [facility] Address [address] [place] [address] Care Team Providers Name Role Phone Jeanna Smith CRITICAL CARE PHYSICIAN Primary Care Provider Encounter Details Date Type Department Care Team Description 05/14/2010 Orders Only [facility] Marina Dunn Psori atic arthropathy Rheumatology & RN ([facility] (Pr imary Immunology - Main Dx) [place] [address] [place] [address] Social History Tobacco Use Types Packs/Day Years Used Date Never Smoker Alcohol Use Standard Drinks/Week Comments No 0 (1 standard drink = 0.6 oz pure alcoho l) Sex Assigned at Date Recorded Not on file documented as of this encounter Ordered Prescriptions Prescription Sig Dispensed Refills Start Date End Date adalimumab (HUMIRA PEN) 40 Inject 0.8 mL into 6 mL 1 0 05/14/2010 11/05/2010 mg/0.8 mL PnKt the skin every 14 days. Every two weeks. documented in this encounter Plan of Treatment Not on filedocumented as of this encounter Visit Diagnoses Diagnosis Psoriatic arthropathy ([facility]) ([facility]) - Primary Psoriatic arthropathy documented in this encounter Discontinued Medications Medication Sig Discontinue Reason Start Date End Date adalimumab (HUMIRA PEN) Inject 0.8 mL into Reorder 05/14/2010 05/14/2010 40 mg/0.8 mL PnKt the skin every 14 days. Every two weeks. documented as of this encounter Care Teams Cull Grader Relationship Specialty Start Date End Date Jeanna Smith, CRITICAL CARE PHYSICIAN PCP - General 06/14/08 [facility] [address] [place], [place] [id number] documented as of this encounter
--- OUTSIDE RECORDS SUMMARY | 2021-09-05 01:12 | XMS_ITS | Encounter Summary ---
:1950 Author Organization [facility] Address [address] [place] [address] Care Team Providers Name Role Phone Jeanna Smith NP Primary Care Provider Encounter Details Date Type Department Care Team Description 11/01/2006 Results Only [facility] Jimmy Burleson Chi, MD Rheumatology & Immunology [address], [address] [place] [address] [place], [place] [phone] (Wo rk) Social History Tobacco Use Types Packs/Day Years Used Date Never Assessed Sex Assigned at Date Recorded Not on file documented as of this encounter Plan of Treatment Not on filedocumented as of this encounter Procedures Procedure Name Priority Date/Time Associated Comments Diagnosis SED RATE Routine 11/01/2006 12:50 Results for this EDT procedure are i n the results section. COMPLETE BLOOD COUNT Routine 11/01/2006 12:50 Res ults for this AND DIFFERENTIAL EDT procedure a re in the results section. C REACTIVE PROTEIN Routine 11/01/2006 12:50 Resul ts for this EDT procedure are i n the results section. HEPATIC FUNCTION Routine 11/01/2006 12:50 Results for this PANEL (ALB,ALK EDT procedure are in PHOS,ALT,AST,DBIL,TOT the re sults ANA,TOT PROT) section. BASIC METABOLIC PANEL Routine 11/01/2006 12:50 Re sults for this (BMP) EDT procedure are i n the results section. documented in this encounter Results (ABNORMAL) SED. RATE:WESTERGREN (11/01/2006 12:50 EDT) Pathologist Sig nature Sed. Rate Westergren 33 (H) 0 - 30 mm/hr [facility] Specimen Performing Organization Address City/[facility]/ZIP Code Phon e Number [facility] [address] [place] [address] SERVICES [facility] [address] [place] [address] (ABNORMAL) LIVER FUNCTION TESTS (11/01/2006 12:50 EDT) Pathologist Sig nature Albumin 4.7 3.4 - 4.9 g/dl [facility] Total Protein 8.6 (H) 6.5 - 8.3 g/dl [facility] Total Alkaline 76 38 - 126 U/L [facility] Phosphatase ALT 21 9 - 52 U/L [facility] AST 24 15 - 46 U/L [facility] Unconjugated Bilirubin 0.3 0.1 - 1.1 mg/dl [facility] Conjugated Bilirubin 0.0 0.0 - 0.3 mg/dl [facility] B Bilirubin, Total <0.5 0.2 - 1.3 mg/dl [facility] Specimen Performing Organization Address City/[facility]/ZIP Code Phon e Number [facility] [address] [place] [address] SERVICES [facility] [address] [place] [address] (ABNORMAL) C-REACTIVE PROTEIN (11/01/2006 12:50 EDT) Pathologist Sig nature C-Reactive Protein 1.1 (H) <1.0 mg/dl [facility] Specimen Performing Organization Address City/[facility]/ZIP Code Phon e Number [facility] [address] [place] [address] SERVICES [facility] [address] [place] [address] HEMAGRAM AND DIFFERENTIAL (11/01/2006 12:50 EDT) Pathologist Sig nature WBC 9.48 4.0 - 12.4 K/cmm [facility] RBC 4.56 3.86 - 5.04 M/cmm [facility] Hemoglobin 14.3 11.6 - 15.2 gm/dl [facility] HCT 41.2 34.9 - 44.4 % [facility] MCV 90 81 - 98 fl [facility] MCH 31.3 26.7 - 33.3 pg [facility] MCHC 34.6 32.1 - 35.9 gm/dl [facility] PLT 227 141 - 320 K/cmm [facility] RDW-CV 13.7 11.7 - 14.6 % [facility] Neutrophils 63.5 45.5 - 79.7 % [facility] Lymphocytes 24.1 15.0 - 46.8 % [facility] Monocytes 8.0 1.8 - 12.0 % [facility] Eosinophils 4.0 0.6 - 6.9 % [facility] Basophils 0.4 0.2 - 1.4 % [facility] ABS Neutrophils 6.03 2.20 - 8.85 K/cmm [facility] ABS Lymphs 2.28 1.09 - 3.30 K/cmm [facility] ABS Monocytes 0.75 0.1 - 0.8 K/cmm [facility] ABS Eosinophils 0.38 0.03 - 0.61 K/cmm [facility] ABS Basophils 0.03 0.01 - 0.11 K/cmm [facility] Type of Diff: Automated [facility] Specimen Performing Organization Address City/State/ZIP Code Phon e Number [facility] [address] [place] [address] SERVICES [facility] [address] [place] [address] (ABNORMAL) BASIC METABOLIC PANEL (11/01/2006 12:50 EDT) [facility] nature Sodium 141 136 - 145 mEq/L [facility] Potassium 4.3 3.5 - 5.0 mEq/L [facility] Chloride 104 96 - 110 mEq/L [facility] CO2 25 24 - 32 mEq/L [facility] BUN 17 10 - 26 mg/dl [facility] Creatinine 0.65 (L) 0.7 - 1.5 mg/dl [facility] GFR, Calculated >60 ml/min/1.73m2 [facility] Calcium 9.9 8.5 - 10.5 mg/dl [facility] Calculated Calcium 9.6 8.5 - 10.5 mg/dl [facility] Glucose, Serum 88 70 - 100 mg/dl [facility] Fasting? No [facility] Specimen Performing Organization Address City/State/ZIP Code Phon e Number [facility] [address] [place] [address] SERVICES [facility] [address] [place] [address] documented in this encounter Visit Diagnoses Not on filedocumented in this encounter Care Teams Waiter/Waitress Second Class Relationship Specialty Start Date End Date Jeanna Smith NP PCP - General 06/14/08 [facility] [address] [place] [address] documented as of this encounter
--- OUTSIDE RECORDS SUMMARY | 2021-09-05 01:12 | XMS_ITS | Encounter Summary ---
:1950 Author Organization [facility] Address [address] [place] [address] Care Team Providers Name Role Phone Jeanna Smith COOKING TEACHER Primary Care Provider Reason for Visit Reason Onset Date Comments Medications Refill 07/31/2009 Encounter Details Date Type Department Care Team Description 07/31/2009 Refill [facility] Jimmy Burleson Chi, MD Medications Refill Rheumatology & Immunology [address] [place] [address], [address] [place], [place] [address] [place] [address] [phone] (Wo rk) Social History Tobacco Use Types Packs/Day Years Used Date Never Assessed Sex Assigned at Date Recorded Not on file documented as of this encounter Ordered Prescriptions Prescription Sig Dispensed Refills Start Date End Date methotrexate (TREXALL) 2.5 Take 2 Tabs by 8 Tab 0 08/0209/02/2009 mg tablet mouth once a week. documented in this encounter Miscellaneous Notes Telephone Encounter - Shanta Orlando RN - 08/02/2009 5908 EDT Calling in one month supply of medication, pt aware that needs to have labs drawn within the month. Will call once labs drawn and if WNL can add refills to RX. documented in this encounter Plan of Treatment Not on filedocumented as of this encounter Visit Diagnoses Not on filedocumented in this encounter Care Teams Physical Therapy Teacher Relationship Specialty Start Date End Date Jeanna Smith NP PCP - General 06/14/[address] [facility] [address] [place] [address] documented as of this encounter
--- OUTSIDE RECORDS SUMMARY | 2021-09-05 01:12 | XMS_ITS | Encounter Summary ---
:1950 Author Organization [facility] Address [address] [place] [address] Care Team Providers Name Role Phone Jeanna Smith NP Primary Care Provider Encounter Details Date Type Department Care Team Description 12/17/2003 Results Only [facility] Jimmy Burleson Chi, MD Rheumatology & Immunology [address] [place] [address], [address] [place], [place] [address] [place] [address] [phone] (Wo rk) Social History Tobacco Use Types Packs/Day Years Used Date Never Assessed Sex Assigned at Date Recorded Not on file documented as of this encounter Plan of Treatment Not on filedocumented as of this encounter Procedures Procedure Name Priority Date/Time Associated Comments Diagnosis DMARD PROFILE Routine 12/17/2003 11:10 Results fo r this EDT procedure are i n the results section. COMPLETE BLOOD COUNT Routine 12/17/2003 11:10 Res ults for this AND DIFFERENTIAL EDT procedure a re in the results section. documented in this encounter Results DMARD PROFILE (12/17/2003 11:10 EDT) Pathologist Sig nature Total Alkaline 82 38 - 126 U/L [facility] Phosphatase AST 34 15 - 46 U/L [facility] ALT 32 9 - 52 U/L [facility] Albumin 4.2 3.4 - 4.9 g/dl [facility] Creatinine 0.7 0.7 - 1.5 mg/dl [facility] Specimen Performing Organization Address City/State/ZIP Code Phon e Number [facility] [address] [place] [address] SERVICES [facility] [address] [place] [address] HEMAGRAM AND DIFFERENTIAL (12/17/2003 11:10 EDT) Pathologist Sig nature WBC 6.21 4.0 - 12.4 K/cmm [facility] RBC 4.46 3.86 - 5.04 M/cmm [facility] Hemoglobin 14.4 11.6 - 15.2 gm/dl [facility] HCT 41.8 34.9 - 44.4 % [facility] MCV 94 81 - 98 fl [facility] MCH 32.4 26.7 - 33.3 pg [facility] MCHC 34.5 32.1 - 35.9 gm/dl [facility] PLT 196 141 - 320 K/cmm [facility] RDW-CV 13.5 11.7 - 14.6 % [facility] Neutrophils 47.0 45.5 - 79.7 % [facility] Lymphocytes 38.9 15.0 - 46.8 % [facility] Monocytes 10.4 1.8 - 12.0 % [facility] Eosinophils 3.1 0.6 - 6.9 % [facility] Basophils 0.6 0.2 - 1.4 % [facility] ABS Neutrophils 2.92 2.20 - 8.85 K/cmm [facility] ABS Lymphs 2.42 1.09 - 3.30 K/cmm [facility] ABS Monocytes 0.64 0.1 - 0.8 K/cmm [facility] ABS Eosinophils 0.19 0.03 - 0.61 K/cmm [facility] ABS Basophils 0.04 0.01 - 0.11 K/cmm [facility] Type of Diff: Automated [facility] Specimen Performing Organization Address City/State/ZIP Code Phon e Number [facility] [address] [place] [address] SERVICES [facility] [address] [place] [address] documented in this encounter Visit Diagnoses Not on filedocumented in this encounter Care Teams Annealing Furnace Operator Relationship Specialty Start Date End Date Jeanna Smith NP PCP - General 06/14/08 [facility] [address] [place] [address] documented as of this encounter
--- OUTSIDE RECORDS SUMMARY | 2021-09-05 01:12 | XMS_ITS | Encounter Summary ---
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 use of other medications COMPLETE BLOOD COUNT Routine 08/17/2011 13:52 Psoriatic arthri tis Results for this AND DIFFERENTIAL EDT ([facility]) procedure are in Encounter for the results long-term (current) section. use of other medications C REACTIVE PROTEIN Routine 08/17/2011 13:52 Psoriatic arthriti s Results for this EDT ([facility]) procedure are in Encounter for the results long-term (current) section. use of other medications COMPREHENSIVE Routine 08/17/2011 13:52 Psoriatic arthritis Res ults for this METABOLIC PANEL (CMP) EDT ([facility]) procedure are in Encounter for the results long-term (current) section. use of other medications documented in this encounter Results C-REACTIVE PROTEIN (08/17/2011 13:52 EDT) Pathologist Sig nature C-Reactive Protein <0.7 <1.0 mg/dl [facility] Specimen Blood specimen (specimen) Performing Organization Address City/[facility]/ZIP [facility] Phon e Number [facility] [address] [place] [address] SERVICES [facility] [address] [place] [address] (ABNORMAL) SED. RATE:WESTERGREN (08/17/2011 13:52 EDT) Pathologist Sig [facility] Sed. Rate Westergren 32 (H) 0 - 30 mm/hr [facility] Specimen Blood specimen (specimen) Performing Organization Address City/[facility] Phon e Number [facility] [address] [place] [address] SERVICES [facility] [address] [place] [address] (ABNORMAL) COMPREHENSIVE METABOLIC PANEL (CMP) (08/17/2011 13:52 EDT) Pathologist Sig [facility] Potassium 4.5 3.5 - 5.0 mEq/L [facility] Sodium 143 136 - 145 mEq/L [facility] Chloride 103 96 - 110 mEq/L [facility] CO2 26 24 - 32 mEq/L [facility] Total Alkaline 46 38 - 126 U/L [facility] Phosphatase Bilirubin, Total 0.6 0.2 - 1.3 mg/dl [facility] AST 26 15 - 46 U/L [facility] ALT 26 9 - 52 U/L [facility] Albumin 4.4 3.4 - 4.9 g/dl [facility] Total Protein 7.6 6.5 - 8.3 g/dl [facility] Creatinine 0.62 0.52 - 1.04 [facility] mg/dl GFR, Calculated >60 >60 [facility] ml/min/1.73m2 BUN 17 10 - 26 mg/dl [facility] Calcium 9.3 8.5 - 10.5 [facility] mg/dl Calculated Calcium 9.3 8.5 - 10.5 [facility] mg/dl Glucose, Serum 105 (H) 70 - 100 mg/dl [facility] Fasting? NO [facility] Specimen Blood specimen (specimen) Performing Organization Address City/[facility] Phon e Number [facility] [address] [place] [address] SERVICES [facility] [address] [place] [address] (ABNORMAL) HEMAGRAM AND DIFFERENTIAL (08/17/2011 13:52 EDT) WBC 5.13 4.0 - 12.4 [facility] RBC 3.65 (L) 3.86 - 5.04 [facility] Hemoglobin 11.2 (L) 11.6 - 15.2 [facility] gm/dl LAB HCT 33.2 (L) 34.9 - 44.4 % [facility] MCV 91 81 - 98 fl [facility] MCH 30.6 26.7 - 33.3 [facility] pg LAB MCHC 33.7 32.1 - 35.9 [facility] gm/dl LAB PLT 126 (L) 141 - 320 [facility] RDW-CV 16.6 (H) 11.7 - 14.6 % [facility] Neutrophils 53.0 45.5 - 79.7 % [facility] Lymphocytes 40.0 15.0 - 46.8 % [facility] Monocytes 1.0 (L) 1.8 - 12.0 % [facility] Eosinophils 6.0 0.6 - 6.9 % [facility] ABS Neutrophils 2.72 2.20 - 8.85 [facility] ABS Lymphs 2.05 1.09 - 3.30 [facility] ABS Monocytes 0.05 (L) 0.1 - 0.8 [facility] ABS Eosinophils 0.31 0.03 - 0.61 [facility] RBC Morphology 1+Comment: [facility] Type of Diff: Manual [facility] Specimen Blood specimen (specimen) Performing Organization Address City/[facility]/ZIP Code Phon e Number [facility] [address] [place] [address] SERVICES [facility] [address] [place] [address] documented in this encounter Visit Diagnoses Diagnosis Psoriatic arthritis (HCC-CMS) (HCC) Psoriatic arthropathy Encounter for long-term (current) use of other medications documented in this encounter Care Teams Job Boss Relationship Specialty Start Date End Date Jeanna Smith NP PCP - General 06/14/08 [facility] [address] [place] [address] documented as of this encounter
--- OUTSIDE RECORDS SUMMARY | 2021-09-05 01:12 | XMS_ITS | Encounter Summary ---
:1950 Author Organization [facility] Address [address] [place] [address] Care Team Providers Name Role Phone Jeanna Smith NP Primary Care Provider Reason for Visit Reason Onset Date Comments Other 05/08/2010 APPROVED FOR HUMIRA Encounter Details Date Type Department Care Team Description 05/08/2010 Telephone [facility] Jimmy Burleson Chi, MD Other (APPROVED FOR Rheumatology & [address] [place] [address]) Immunology - [address], [address] [place], [place] [address] [place] [address] [phone] (Wo rk) Social History Tobacco Use Types [...] mL into 6 mL 1 0 05/14/2010 05/14/2010 mg/0.8 mL PnKt the skin every 14 days. Every two weeks. documented in this encounter Miscellaneous Notes Telephone Encounter - Connie Lorenzo RN - 05/19/2010 1121 EDT Pt still hasn't received Humira PEN. I called [facility] and they said that medication was ready and theywere just waiting for pt to call and set up delivery. I notified pt. documented in this encounter Plan of Treatment Not on filedocumented as of this encounter Visit Diagnoses Not on filedocumented in this encounter Discontinued Medications Medication Sig Discontinue Reason Start Date End Date Etanercept (ENBREL Inject 50 mg into Alternate therapy 09/10/2009 05/14/2010 SURECLICK) 50 mg/mL the skin once a (0.98 mL) PnIj week. documented as of this encounter Care Teams Log Manager Relationship Specialty Start Date End Date Jeanna Smith NP PCP - General 06/14/08 [facility] [address] [place] [address] documented as of this encounter
--- OUTSIDE RECORDS SUMMARY | 2021-09-05 01:12 | XMS_ITS | Encounter Summary ---
:1950 Author Organization [facility] Address [address] [place] [address] Care Team Providers Name Role Phone Unavailable Primary Care Provider Unavailable Encounter Details Date Type Department Care Team Description 06/16/2004 Hospital Encounter [facility] - Jimmy Burleson Chi, MD Other [address] [place] [address] [address], [place] [phone] (Wo rk) Social History Tobacco Use Types Packs/Day Years Used Date Never Assessed Sex Assigned at Date Recorded Not on file documented as of this encounter Discharge Disposition Disposition Code Departure Means Destination Auto Discharge documented in this encounter Plan of Treatment Not on filedocumented as of this encounter Procedures Procedure Name Priority Date/Time Associated Diagnosis Comme nts CERVICAL SPINE Routine 06/16/2004 10:13 Results f or this AP&LAT EDT procedure are i n the results section. 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 The facet joints at C3-4 and C4-5 show degen erative changes. The C7-T1 disc space is obscured by the high shoul ders. AP view shows that the facet joint arthropathy is predominantly on the left side. 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 The facet joints at C3-4 and C4-5 show degen erative changes. The C7-T1 disc space is obscured by the high shoul ders. AP view shows that the facet joint arthropathy is predominantly on the left side. /marii Performing Organization Address City/State/ZIP Code Phon e Number [facility] [address] [facility] [address] [facility] [address] [place], [place] [address] documented in this encounter Visit Diagnoses Not on filedocumented in this encounter
--- OUTSIDE RECORDS SUMMARY | 2021-09-05 01:12 | XMS_ITS | Encounter Summary ---
:1950 Author Organization [facility] Address [address] [place] [address] Care Team Providers Name Role Phone Jeanna Smith HIDE CLEANER Primary Care Provider Encounter Details Date Type Department Care Team Description 06/18/2008 Hospital Encounter [facility] Jimmy Burleson MD Rheumatology & [address] [place] [address], [address] [place], [place] [id number] [place] [address] [phone] (Wo rk) Social History Tobacco Use Types Packs/Day Years Used Date Never Assessed Sex Assigned at Date Recorded Not on file documented as of this encounter Discharge Disposition Disposition Code Departure Means Destination Home or Self Group Home documented in this encounter Plan of Treatment Not on filedocumented as of this encounter Visit Diagnoses Not on filedocumented in this encounter Care Teams Estate Tax Examiner Relationship Specialty Start Date End Date Jeanna Smith NP PCP - General 06/14/08 [facility] [address] [place], [place] [address] documented as of this encounter
--- OUTSIDE RECORDS SUMMARY | 2021-09-05 01:12 | XMS_ITS | Encounter Summary ---
:1950 Author Organization [facility] Address [address] [place] [address] Care Team Providers Name Role Phone Sarah Jeanna Saenz NP Primary Care Provider Reason for Visit Reason Onset Date Comments Labs Only 08/24/2011 Encounter Details Date Type Department Care Team Description 08/24/2011 Telephone [facility] Jimmy Burleson Chi, MD Labs Only Rheumatology & Immunology - [address] [place] [address], [address], [address] [place], [place] [address] [place] [phone] (Wo rk) Social History Tobacco Use Types Packs/Day Years Used Date Never Smoker Smokeless Tobacco: Never Used Alcohol Use Standard Drinks/Week Comments No 0 (1 standard drink = 0.6 oz pure alcoho l) Sex Assigned at Date Recorded Not on file documented as of this encounter Miscellaneous Notes Telephone Encounter - Connie Lorenzo RN - 08/24/2011 1521 EDT Labs faxed. Pt was notified. elephone Encounter - Jimmy Burleson Chi, MD - 08/24/2011 1500 EDT Have signed for arthritis labs that can be drawn at the same time; please fax to them. elephone Encounter - Connie Lorenzo RN - 08/24/2011 1435 EDT Standing lab orders faxed over to [facility] at [phone] per pt request. Anything youwant him to do before his next set of labs are done based on labs last week? elephone Encounter - Izzy Montejo - 08/24/2011 1047 EDT Patient received a letter stating that she is to come [facility] for labs and patient was wondering if shecould get her labs done at the [facility] in [facility]. [phone] phone for [facility]. Patient is suppose to get her labs done on 10/18/11. Please call patient. documented in this encounter Plan of Treatment Not on filedocumented as of this encounter Visit Diagnoses Diagnosis Psoriatic arthritis (HCC-CMS) (HCC) Psoriatic arthropathy Encounter for long-term (current) use of other medications Inflammatory arthritis Unspecified inflammatory polyarthropathy documented in this encounter Care Teams Patient Accounting Representative Relationship Specialty Start Date End Date Jeanna Smith NP PCP - General 06/14/08 [facility] [address] [place] [address] documented as of this encounter
--- OUTSIDE RECORDS SUMMARY | 2021-09-05 01:12 | XMS_ITS | Encounter Summary ---
:1950 Author Organization [facility] Address [address] [place] [address] Care Team Providers Name Role Phone Jeanna Smith NP Primary Care Provider Encounter Details Date Type Department Care Team Description 04/11/2020 Lab Requisition [facility] Outr Resulting Lab, Pathology & Laboratory Provider [facility] [address] [place] [address] Social History Tobacco Use Types Packs/Day Years Used Date Never Assessed Sex Assigned at Date Recorded Not on file documented as of this encounter Plan of Treatment Not on filedocumented as of this encounter Procedures Procedure Name Priority Date/Time Associated Diagnosis Comme nts COVID-19 TEST [facility] Today 04/11/2020 9:33 EST LAB PCR COVID-19 TESTING Routine 04/11/2020 9:33 EST Resu lts for this procedure are i n the results section. documented in this encounter Results COVID-19 TEST [facility] LAB PCR (04/11/2020 9:33 EST) Specimen Swab - Entire nasopharynx (body structur e) Performing Organization Address City/State/ZIP Code Phon e Number [facility] [address] [place] [address] SERVICES COVID-19 TESTING (04/11/2020 9:33 EST) COVID-19 rt-PCR Negative Negative [facility] Result Comment: [facility] This test was developed and its performance characteristics determined by [facility]. It has not been cleared or approved by the US Food and Drug Administration. FDA does not require this test to go through SERVICES premarket FDA review. This t est is used for clinical purposes. It should not be regarded as investigational or for research. This laboratory is certified under the Clinical Laboratory Improvement Amendm ents (CLIA) as qualified to perform high complexity clinical laboratory testing. This test is based on the CD C COVID-19 Emergency Use Authorization (EUA) assay, with minor modification as defined by the FDA Performed on the Cisivo 7 Pro RT-PCR System. This test has not been FDA c leared or approved. This test has been authorized by FDA under an EUA for use by authorized laboratories. This test has been authorized only for detection of nucleic acid fro m 2019-nCoV, not for any oth er viruses or pathogens. This test is only authorized for the duration of the declaration that circumstances exist justifying the authorization of emergency use of in vitro d iagnostic tests for detectio n and/or diagnosis of 2019-nCoV under section 564(b)(1) of Act, 21 U.S.C ?? 360bbb-3(b) (1), unless the authorization is terminated or revoked sooner. Negative results do not prec lude 2019-nCoV infection and should not be used as the sole basis for treatment or other patient management decisions. Negative results must be combined with clinical observa tions, patient history, and epidemiological informatio n. Performing Lab [facility] Lab [facility] SERVICES Specimen Swab Performing Organization Address City/State/ZIP Code Phon e Number [facility] [address] [place] [address] SERVICES documented in this encounter Visit Diagnoses Not on filedocumented in this encounter Care Teams Midwife Relationship Specialty Start Date End Date Jeanna Smith NP PCP - General 06/14/08 [facility] [address] [place], [place] [address] documented as of this encounter
--- OUTSIDE RECORDS SUMMARY | 2021-09-05 01:12 | XMS_ITS | Encounter Summary ---
:1950 Author Organization [facility] Address [address] [place] [address] Care Team Providers Name Role Phone Jeanna Smith POST ACUTE CARE REGISTERED NURSE Primary Care Provider Encounter Details Date Type Department Care Team Description 12/17/2003 Hospital Encounter [facility] - Jimmy Burleson Chi, MD Other [address] [address] [address], [place] [phone] (Wo rk) Social History Tobacco Use Types [...] on filedocumented in this encounter Care Teams Access Control Officer Relationship Specialty Start Date End Date Jeanna Smith, LUIS PCP - General 06/14/08 [facility] [address] [place], [place] [address] documented as of this encounter
--- OUTSIDE RECORDS SUMMARY | 2021-09-05 01:12 | XMS_ITS | Encounter Summary ---
:1950 Author Organization [facility] Address [address] [place] [address] Care Team Providers Name Role Phone Jeanna Smith NP Primary Care Provider Encounter Details Date Type Department Care Team Description 02/06/2011 Phlebotomy Only [facility] Stablehand, Weigh t loss; - [facility] Outpatient Nausea; [address] Abdominal pain, unspecified site; [place], [place] Diabetes marco antonio itus ([facility]); [address] Psoriatic arthritis ([facility] ); [phone] Encounter for l mikayla-term (current) use of other medications Social History Tobacco Use Types Packs/Day Years Used Date Never Smoker Smokeless Tobacco: Never Used Alcohol Use Standard Drinks/Week Comments No 0 (1 standard drink = 0.6 oz pure alcoho l) Sex Assigned at Date Recorded Not on file documented as of this encounter Plan of Treatment Not on filedocumented as of this encounter Procedures Procedure Name Priority Date/Time Associated Comments Diagnosis TISSUE TRANSGLUTAMINASE Routine 02/06/2011 15:35 Weight loss Results for this AB EST procedure are i n the results section. COMPLETE BLOOD COUNT AND Routine 02/06/2011 15:35 Weight loss Results for this DIFFERENTIAL EST Nausea procedure are in Abdominal pain, the results unspecified site section. HEMOGLOBIN A1C Routine 02/06/2011 15:35 Diabetes mellitus Resu lts for this EST ([facility]) procedure are i n the results section. COMPREHENSIVE METABOLIC Routine 02/06/2011 15:35 Nausea Results for this PANEL (CMP) EST Abdominal pain, procedure ar e in unspecified site the results section. documented in this encounter Results HEMOGLOBIN A1C (02/06/2011 15:35 EST) Hemoglobin A1C 6.5 % [facility] Comment: Reference Range: <5.7% Normal 5.7-6.4% Increased risk for diabetes =>6.5% Diagnostic for diabetes (if confirmed) The A1c goal for non adults in general is <7%. The A1c goal for selected patients may be significantly lower than 7% if this can be achieved without significant hypoglycemia or other adverse effects of treatment. Est Avg Glucose 140 mg/dl [facility] Comment: eAG represents the A1c result expressed as average glucose in mg/dl. Specimen Blood specimen (specimen) Performing Organization Address City/State/ZIP Code Phon e Number [facility] [address] [place] [address] SERVICES [facility] [address] [place] [address] TTG AB, IGA, S (02/06/2011 15:35 EST) tTG Ab, IgA, S <1.2 <4.0 [facility] Comment: (Negative) Performed or Referred by: [facility] Dp t of Lab Med and Path, [address] U/[place] [address], Lab Dir: Elmo garcia III, MD Specimen Blood specimen (specimen) Performing Organization Address City/[facility] Phon e Number [facility] [address] [place] [address] SERVICES [facility] [address] [place] [address] COMPREHENSIVE METABOLIC PANEL (CMP) (02/06/2011 15:35 EST) Pathologist Sig nature Potassium 4.0 3.5 - 5.0 mEq/L [facility] Sodium 141 136 - 145 mEq/L [facility] Chloride 104 96 - 110 mEq/L [facility] CO2 27 24 - 32 mEq/L [facility] Total Alkaline 53 38 - 126 U/L [facility] Phosphatase Bilirubin, Total 0.7 0.2 - 1.3 mg/dl [facility] AST 26 15 - 46 U/L [facility] ALT 25 9 - 52 U/L [facility] Albumin 4.4 3.4 - 4.9 g/dl [facility] Total Protein 8.2 6.5 - 8.3 g/dl [facility] Creatinine 0.70 0.7 - 1.5 mg/dl [facility] GFR, Calculated >60 >60 [facility] ml/min/1.73m2 BUN 14 10 - 26 mg/dl [facility] Calcium 9.5 8.5 - 10.5 mg/dl [facility] Calculated Calcium 9.5 8.5 - 10.5 mg/dl [facility] Glucose, Serum 84 70 - 100 mg/dl [facility] Fasting? No [facility] Specimen Blood specimen (specimen) Performing Organization Address City/State/ZIP Code Phon e Number [facility] [address] [place] [address] SERVICES [facility] [address] [place] [address] (ABNORMAL) HEMAGRAM AND DIFFERENTIAL (02/06/2011 15:35 EST) Pathologist Sig nature WBC 6.39 4.0 - 12.4 K/cmm [facility] RBC 3.78 (L) 3.86 - 5.04 M/cmm [facility] Hemoglobin 12.4 11.6 - 15.2 gm/dl [facility] HCT 36.1 34.9 - 44.4 % [facility] MCV 95 81 - 98 fl [facility] MCH 32.7 26.7 - 33.3 pg [facility] MCHC 34.3 32.1 - 35.9 gm/dl [facility] PLT 140 (L) 141 - 320 K/cmm [facility] RDW-CV 14.1 11.7 - 14.6 % [facility] Neutrophils 42.2 (L) 45.5 - 79.7 % [facility] Lymphocytes 36.5 15.0 - 46.8 % [facility] Monocytes 9.2 1.8 - 12.0 % [facility] Eosinophils 11.4 (H) 0.6 - 6.9 % [facility] Basophils 0.7 0.2 - 1.4 % [facility] ABS Neutrophils 2.70 2.20 - 8.85 K/cmm [facility] ABS Lymphs 2.33 1.09 - 3.30 K/cmm [facility] ABS Monocytes 0.59 0.1 - 0.8 K/cmm [facility] ABS Eosinophils 0.73 (H) 0.03 - 0.61 K/cmm [facility] ABS Basophils 0.05 0.01 - 0.11 K/cmm [facility] Type of Diff: Automated [facility] Specimen Blood specimen (specimen) Performing Organization Address City/State/ZIP Code Phon e Number [facility] [address] [place] [address] SERVICES [facility] [address] [place] [address] documented in this encounter Visit Diagnoses Diagnosis Weight loss Loss of weight Nausea Nausea alone Abdominal pain, unspecified site Diabetes mellitus (HCC) Type II or unspecified type diabetes amy litus without mention of complication, not stated as uncontrolled Psoriatic arthritis (HCC-CMS) (HCC) Psoriatic arthropathy Encounter for long-term (current) use of other medications documented in this encounter Care Teams Grinder Gear Relationship Specialty Start Date End Date Jeanna Smith NP PCP - General 06/14/08 [facility] [address] [place], [place] [address] documented as of this encounter
--- OUTSIDE RECORDS SUMMARY | 2021-09-05 01:12 | XMS_ITS | Encounter Summary ---
:[address] [facility] Address [address] [place] [address] Care Team Providers Name Role Phone Sarah Jeanna Saenz NP Primary Care Provider Encounter Details Date Type Department Care Team Description 12/21/2007 Before [facility] - Jimmy Burleson Ch, i, MD Converted Visit [facility] conversion [facility] ([facility]) [address] [place] [address] [address], [place] [phone] (Wo rk) Social History Tobacco Use Types Packs/Day Years Used Date Never Assessed Sex Assigned at Date Recorded Not on file documented as of this encounter Progress Notes Jimmy Burleson Chi, MD - 09/13/2008 8877 EDT DIVISION OF RHEUMATOLOGY PROGRESS/FOLLOWUP NOTE - 12/21/2007 PROBLEM Psoriatic arthritis / psoriasis. CHIEF COMPLAINT Psoriasis better, continues to have chronic pain. HISTORY OF PRESENT ILLNESS Patient started Enbrel in May of 2007, and notes improvement in her scalp psoriasis with the Enbrel. Back and neck pains remain about the same. MCP swelling in the hands might beslightly less. Continues to have pain at the heels and insteps. Neck pains trigger headaches. Wearing sneakers increases the heel pains, whereas wearing slippers relieves it. Several weeks ago, she noted a nontender bump appearing on the left side of her neck which has gradually decreased and the bump was not associated with any fever, sore throat, or symptoms of viral infection. Tylenol has not been helpful for the back or neck pains. She has not tried Advil, as was suggested seven months ago. She did have nerve conduction studies for the shooting pains in the hands and wrists, and was told that she may have some ulnar neuropathy. REVIEW OF SYSTEMS A 10-point review of systems is as documented in the Rheumatology Clinic followup form - negative except for chronic fatigue, occasional dyspnea on exertion, joint pains as described above, with musclepains in the back and neck, a.m. stiffness that can last all day, headaches associated with her neckpains, trouble sleeping, due to her neck or back discomfort, scalp psoriasis has improved. PAST MEDICAL HISTORY Psoriatic arthritis; psoriasis; osteoarthritis of fingers, and C-spine; hypercholesterolemia; low bone mass; hypothyroidism; adult onset diabetes mellitus; quinine-induced thrombocytopenia, August,. MEDICATIONS Synthroid 112 mcg daily. 2. Glucophage 500 mg b.i.d. 3. Baby aspirin 81 mg daily. 4. Lovastatin 40 mg daily. 5. Atenolol 25 mg daily. 6. Paxil 30 mg daily. 7. Enbrel SureClick 50 mg subcutaneously weekly. EXAM Pleasant, quiet middle-aged female in no distress. Blood pressure 108/64, pulse 60 and regular, respiratory rate 14. Skin - pale, a few scaly plaques on her scalp, otherwise no lesions elsewhere. HEENTexam revealed clear sclerae, no nasopharyngeal lesions, moist mucous membranes. Lymph node exam revealed shoddy 1.5 cm mobile nontender lymph nodes in both left and right cervical chains. No adenopathypalpable elsewhere. Lungs clear. Cardiac: Normal S1, S2, no murmurs, or gallops. Gait: Slow, not antalgic. Neurological exam revealed no focal deficits. Joint Exam: Tender at the base of the cervical spine. Mild discomfort on rotation and extension of the C-spine. Bilateral shoulders and elbows had good range of motion without effusions. Mild tenderness and fullness at the left wrist, right wrist had no swelling or tenderness. Mild thickening of the left second and third MCP joints, without acute swelling in the other MCPs. Diffuse bony enlargements of the PIP and DIP joints of both hands. Hips, knees, ankles all had intact range of motion. Bilateral heels were tender at the insteps and at the calcaneus to deep palpation. Bilateral third MTP joints were tender without swelling. Labs from December of 2006: serum protein electrophoresis negative, creatinine 0.7, albumin 4.2, AST21, ALT 38, alk. phos. 72, WBCs 8.4, hemoglobin 14.5, hematocrit 42.9, platelet count 225,000. ASSESSMENT Psoriatic arthritis. No active synovitis on today's exam. Unclear how much Enbrel is helping her chronic symptoms, most of which are degenerative in nature. 2. Scalp psoriasis improved on Enbrel. 3. 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 4. Bilateral plantar fasciitis. 5. Cervical lymphadenopathy. No infectious etiology identified. Will monitor. Patient will notify usif adenopathy increases in severity. PLAN We will recheck labs today, consisting of serum protein electrophoresis, CBC, comprehensive metabolic panel, as well as CRP and ESR.Continue Enbrel. Patient advised to take Advil one to two tablets three times a day with food, for her current symptoms. Patient was also advised to wear better cushionedsneakers for her feet, to relieve foot pains. Routine followup in six months. P.S. Labs normal. Signed by Jimmy Burleson MD 12/29/2007 13:37 Jimmy Burleson MD - Jimmy Burleson MD - ZAINAB Job ID: [id number] Doc ID: [id number] cc: Jeanna Smith NP documented in this encounter Plan of Treatment Not on filedocumented as of this encounter Visit Diagnoses Not on filedocumented in this encounter Care Teams Treating Inspector Relationship Specialty Start Date End Date Jeanna Smith NP PCP - General 06/14/08 [facility] [address] [place] [address] documented as of this encounter
--- OUTSIDE RECORDS SUMMARY | 2021-09-05 01:12 | XMS_ITS | Encounter Summary ---
:1950 Author Organization [facility] Address [address] [place] [address] Care Team Providers Name Role Phone Unavailable Primary Care Provider Unavailable Encounter Details Date Type Department Care Team Description 05/18/2007 Hospital Encounter [facility] - Jimmy Burleson Chi, MD [address] [address] [address], [place] [address] (Wo rk) Social History Tobacco [...] Diagnosis Comme nts L SPINE 2-3 VIEWS 05/18/2007 15:14 Result s for this EDT procedure are i n the results section. CERVICAL SPINE 2-3 05/18/2007 15:14 Resul ts for this VIEWS EDT procedure are i n the results section. THORACIC SPINE 2-3 05/18/2007 15:09 Resul ts for this VIEWS EDT procedure are i n the results section. documented in this encounter Results L SPINE 2-3 VIEWS (05/18/2007 15:14 EDT) Anatomical Region Laterality Modality Other Specimen Narrative [facility] - 08/05/2008 12 :29 EDT chronic thoracic, cervical, and lumbar pain, h/o psoriatic arthritis Cervical spine, thoracic spine and the l umbar spine 05/18/2007 History: Chronic cervical, thoracic and lumbar pain, history of psoriatic arthritis, rule out compressio n fractures, DJD C-spine: Three views were obtained. There is dextroscoliosis of the cervical spine. There is reversal of the lordotic curve from C3 through C7. 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 This makes evaluati on in the upper cervical spine difficult, the odontoid views are suboptimal. There is disc space narrowing with osteophyte formatio n at all levels. There is moderate facet spondylosis at all levels . The prevertebral soft tissues are normal. 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 There is scoliosis and mild to moderate degenerative disc disease and spondylosi s. T-spine: AP and lateral views were obtai rodney. There is levoscoliosis of the upper thor acic spine and there is kyphosis of the entire thoracic spine. N o compression fracture is seen. There is diffuse disc space narrow ing with anterior osteophyte formation, most severely involving T8-T1 1. Impression: Kyphoscoliosis with moderate degenerative disc disease and spondylosis Lumbar spine: AP and lateral views were obtained. Alignment is normal. No compression frac ture is seen. Vertebral body heights and disc spaces are maintained. There is minimal osteophyte formation at L2-L3, L3-L4 and L4-L5. The re is mild facet spondylosis most significantly involving L5-S1. Impression: Mild spondylosis Procedure Note Ismael Johnson MD - 08/05/2008 chronic thoracic, cervical, and lumbar pain, h/o psoriatic arthritis Cervical spine, thoracic spine and the l umbar spine 05/18/2007 History: Chronic cervical, thoracic and lumbar pain, history of psoriatic arthritis, rule out compressio n fractures, DJD C-spine: Three views were obtained. There is dextroscoliosis of the cervical spine. There is reversal of the lordotic curve from C3 through C7. 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 This makes evaluati on in the upper cervical spine difficult, the odontoid views are suboptimal. There is disc space narrowing with osteophyte formatio n at all levels. There is moderate facet spondylosis at all levels . The prevertebral soft tissues are normal. 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 There is scoliosis and mild to moderate degenerative disc disease and spondylosi s. T-spine: AP and lateral views were obtai rodney. There is levoscoliosis of the upper thor acic spine and there is kyphosis of the entire thoracic spine. N o compression fracture is seen. There is diffuse disc space narrow ing with anterior osteophyte formation, most severely involving T8-T1 1. Impression: Kyphoscoliosis with moderate degenerative disc disease and spondylosis Lumbar spine: AP and lateral views were obtained. Alignment is normal. No compression frac ture is seen. Vertebral body heights and disc spaces are maintained. There is minimal osteophyte formation at L2-L3, L3-L4 and L4-L5. The re is mild facet spondylosis most significantly involving L5-S1. Impression: Mild spondylosis Performing Organization Address City/State/ZIP Code Phon e Number [facility] [address] [facility] [place] [address] [facility] [address] [place], [place] [address] CERVICAL SPINE 2-3 VIEWS (05/18/2007 15:14 EDT) Anatomical Region Laterality Modality Other Specimen Narrative [facility] - 08/05/2008 12 :29 EDT chronic thoracic, cervical, and lumbar pain, h/o psoriatic arthritis Cervical spine, thoracic spine and the l umbar spine 05/18/2007 History: Chronic cervical, thoracic and lumbar pain, history of psoriatic arthritis, rule out compressio n fractures, DJD C-spine: Three views were obtained. There is dextroscoliosis of the cervical spine. There is reversal of the lordotic curve from C3 through C7. 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 This makes evaluati on in the upper cervical spine difficult, the odontoid views are suboptimal. There is disc space narrowing with osteophyte formatio n at all levels. There is moderate facet spondylosis at all levels . The prevertebral soft tissues are normal. 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 There is scoliosis and mild to moderate degenerative disc disease and spondylosi s. T-spine: AP and lateral views were obtai rodney. There is levoscoliosis of the upper thor acic spine and there is kyphosis of the entire thoracic spine. N o compression fracture is seen. There is diffuse disc space narrow ing with anterior osteophyte formation, most severely involving T8-T1 1. Impression: Kyphoscoliosis with moderate degenerative disc disease and spondylosis Lumbar spine: AP and lateral views were obtained. Alignment is normal. No compression frac ture is seen. Vertebral body heights and disc spaces are maintained. There is minimal osteophyte formation at L2-L3, L3-L4 and L4-L5. The re is mild facet spondylosis most significantly involving L5-S1. Impression: Mild spondylosis Procedure Note Ismael Johnson MD - 08/05/2008 chronic thoracic, cervical, and lumbar pain, h/o psoriatic arthritis Cervical spine, thoracic spine and the l umbar spine 05/18/2007 History: Chronic cervical, thoracic and lumbar pain, history of psoriatic arthritis, rule out compressio n fractures, DJD C-spine: Three views were obtained. There is dextroscoliosis of the cervical spine. There is reversal of the lordotic curve from C3 through C7. 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 This makes evaluati on in the upper cervical spine difficult, the odontoid views are suboptimal. There is disc space narrowing with osteophyte formatio n at all levels. There is moderate facet spondylosis at all levels . The prevertebral soft tissues are normal. 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 There is scoliosis and mild to moderate degenerative disc disease and spondylosi s. T-spine: AP and lateral views were obtai rodney. There is levoscoliosis of the upper thor acic spine and there is kyphosis of the entire thoracic spine. N o compression fracture is seen. There is diffuse disc space narrow ing with anterior osteophyte formation, most severely involving T8-T1 1. Impression: Kyphoscoliosis with moderate degenerative disc disease and spondylosis Lumbar spine: AP and lateral views were obtained. Alignment is normal. No compression frac ture is seen. Vertebral body heights and disc spaces are maintained. There is minimal osteophyte formation at L2-L3, L3-L4 and L4-L5. The re is mild facet spondylosis most significantly involving L5-S1. Impression: Mild spondylosis Performing Organization Address City/State/ZIP Code Phon e Number [facility] [address] [place] [address] [facility] [address] [place], [place] [address] THORACIC SPINE 2-3 VIEWS (05/18/2007 15:09 EDT) Anatomical Region Laterality Modality Other Specimen Narrative [facility] - 08/05/2008 12 :29 EDT chronic thoracic, cervical, and lumbar pain, h/o psoriatic arthritis Cervical spine, thoracic spine and the l umbar spine 05/18/2007 History: Chronic cervical, thoracic and lumbar pain, history of psoriatic arthritis, rule out compressio n fractures, DJD C-spine: Three views were obtained. There is dextroscoliosis of the cervical spine. There is reversal of the lordotic curve from C3 through C7. 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 This makes evaluati on in the upper cervical spine difficult, the odontoid views are suboptimal. There is disc space narrowing with osteophyte formatio n at all levels. There is moderate facet spondylosis at all levels . The prevertebral soft tissues are normal. 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 There is scoliosis and mild to moderate degenerative disc disease and spondylosi s. T-spine: AP and lateral views were obtai rodney. There is levoscoliosis of the upper thor acic spine and there is kyphosis of the entire thoracic spine. N o compression fracture is seen. There is diffuse disc space narrow ing with anterior osteophyte formation, most severely involving T8-T1 1. Impression: Kyphoscoliosis with moderate degenerative disc disease and spondylosis Lumbar spine: AP and lateral views were obtained. Alignment is normal. No compression frac ture is seen. Vertebral body heights and disc spaces are maintained. There is minimal osteophyte formation at L2-L3, L3-L4 and L4-L5. The re is mild facet spondylosis most significantly involving L5-S1. Impression: Mild spondylosis Procedure Note Ismael Johnson MD - 08/05/2008 chronic thoracic, cervical, and lumbar pain, h/o psoriatic arthritis Cervical spine, thoracic spine and the l umbar spine 05/18/2007 History: Chronic cervical, thoracic and lumbar pain, history of psoriatic arthritis, rule out compressio n fractures, DJD C-spine: Three views were obtained. There is dextroscoliosis of the cervical spine. There is reversal of the lordotic curve from C3 through C7. 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 This makes evaluati on in the upper cervical spine difficult, the odontoid views are suboptimal. There is disc space narrowing with osteophyte formatio n at all levels. There is moderate facet spondylosis at all levels . The prevertebral soft tissues are normal. 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 There is scoliosis and mild to moderate degenerative disc disease and spondylosi s. T-spine: AP and lateral views were obtai rodney. There is levoscoliosis of the upper thor acic spine and there is kyphosis of the entire thoracic spine. N o compression fracture is seen. There is diffuse disc space narrow ing with anterior osteophyte formation, most severely involving T8-T1 1. Impression: Kyphoscoliosis with moderate degenerative disc disease and spondylosis Lumbar spine: AP and lateral views were obtained. Alignment is normal. No compression frac ture is seen. Vertebral body heights and disc spaces are maintained. There is minimal osteophyte formation at L2-L3, L3-L4 and L4-L5. The re is mild facet spondylosis most significantly involving L5-S1. Impression: Mild spondylosis Performing Organization Address City/State/ZIP Code Phon e Number [facility] [address] [facility] [address] [facility] [address] [place], [place] [address] documented in this encounter Visit Diagnoses Not on filedocumented in this encounter
--- OUTSIDE RECORDS SUMMARY | 2021-09-05 01:12 | XMS_ITS | Encounter Summary ---
:1950 Author Organization [facility] Address [address] [place] [address] Care Team Providers Name Role Phone Unavailable Primary Care Provider Unavailable Encounter Details Date Type Department Care Team Description 11/01/2006 Hospital Encounter [facility] - Jimmy Burleson Chi, MD [address] [address] [place], [place] [phone] (Wo rk) Social History Tobacco Use Types [...]
--- OUTSIDE RECORDS SUMMARY | 2021-09-05 01:12 | XMS_ITS | Encounter Summary ---
:1950 Author Organization [facility] Address [address] [place] [address] Care Team Providers Name Role Phone Jeanna Smith PATTERN CHAIN BUILDER Primary Care Provider Encounter Details Date Type Department Care Team Description 08/23/2006 Results Only [facility] Criss Núñez, PATTERN CHAIN BUILDER Care [facility] - [address] [phone] (Wo rk) Social History Tobacco Use Types Packs/Day Years Used Date Never Assessed Sex Assigned at Date Recorded Not on file documented as of this encounter Plan of Treatment Not on filedocumented as of this encounter Procedures Procedure Name Priority Date/Time Associated Diagnosis Comme nts CYTOPATHOLOGY Routine 08/23/2006 0:00 EDT Results for this procedure are i n the results section . documented in this encounter Results CYTOPATHOLOGY (08/23/2006 0:00 EDT) Pathology Report: CYTOPATHOLOGY REPORT [facility] Reports generated via electronic interface contain erika ginal data; however they are lacking the format of the original re port. Caution should be taken when reading/interpreting unfo rmatted reports. Name: ? ELEAZAR SORIANO ? Accession #: ? [id number] : ? 1950 (Age: 56) ??F ?Collect Date: ? 03/2006 Location: ? [facility] ? Receive Date : ? 08/26/2006 Provider: ?CRISS EVARISTO PLASTER MIXER Copy to: ? Specimen/Source: ? ThinPrep Pap Test, Cervix/Endocervix, processed on [employer] ThinPrep Imaging System, with manual evaluation Last Menstrual Period: ? 30 + years Hormonal/Contraceptive Status: ? Tubal ligation: at age 22 ? SPECIMEN ADEQUACY ? Satisfactory for Evaluation - transformation zone component present GENERAL CATEGORIZATION ? Negative for Intraepithelial Lesion or Malignan cy ? Document reviewed and electronically signed by: ? RADHA Swanson(ASCP) ? Report Date: ??09/01/2006 15:57 End of Report Specimen Performing Organization Address City/State/ZIP Code Phon e Number [facility] [address] [place] [address] [facility] [address] [place] [address] documented in this encounter Visit Diagnoses Not on filedocumented in this encounter Care Teams Stock Shipper Relationship Specialty Start Date End Date Jeanna Smith NP PCP - General 06/14/08 [facility] [address] [place], [place] [address] documented as of this encounter
--- OUTSIDE RECORDS SUMMARY | 2021-09-05 01:12 | XMS_ITS | Encounter Summary ---
:1950 Author Organization [facility] Address [address] [place] [address] Care Team Providers Name Role Phone Unavailable Primary Care Provider Unavailable Encounter Details Date Type Department Care Team Description 06/11/2003 Hospital Encounter [facility] - Jimmy Burleson Chi, MD Other [address] [place] [id number] [place] [address], [place] [phone] (Wo rk) Social History Tobacco Use Types [...]
--- OUTSIDE RECORDS SUMMARY | 2021-09-05 01:12 | XMS_ITS | Encounter Summary ---
:1950 Author Organization [facility] Address [address] [place] [address] Care Team Providers Name Role Phone Jeanna Smith NP Primary Care Provider Reason for Visit Reason Onset Date Comments Medications Refill 02/29/2012 Encounter Details Date Type Department Care Team Description 02/29/2012 Refill [facility] Jimmy Burleson Chi, MD Medications Refill Rheumatology & Immunology [address] [place] [address], [address] [place], [place] [id number] [place] [phone] (Wo rk) Social History Tobacco Use Types Packs/Day Years Used Date Never Smoker Smokeless Tobacco: Never Used Alcohol Use Standard Drinks/Week Comments No 0 (1 standard drink = 0.6 oz pure alcoho l) Sex Assigned at Date Recorded Not on file documented as of this encounter Ordered Prescriptions Prescription Sig Dispensed Refills Start Date End Date celecoxib (CELEBREX) 100 mg Take 1 Cap by mouth 60 Cap 5 02/29/2012 capsuleIndications: 2 times daily. Psoriatic arthritis (HCC-CMS) ([facility]), Osteoarthritis cervical spine documented in this encounter Miscellaneous Notes Telephone Encounter - [facility] - 02/29/2012 1039 EST Pt is scheduled for 05/03/[address] Burleson, is out of celebrex documented in this encounter Plan of Treatment Not on filedocumented as of this encounter Visit Diagnoses Diagnosis Psoriatic arthritis (HCC-CMS) ([facility]) - Pr imary Psoriatic arthropathy Osteoarthritis cervical spine Cervical spondylosis without myelopathy documented in this encounter Discontinued Medications Medication Sig Discontinue Reason Start Date End Date celecoxib (CELEBREX) 100 mg Take 1 Cap by Reorder 08/17/2011 02/29/2012 capsuleIndications: mouth 2 times Psoriatic arthritis daily. ([facility]) ([facility]), Osteoarthritis cervical spine documented as of this encounter Care Teams Storage Specialist Relationship Specialty Start Date End Date Jeanna Smith NP PCP - General 06/14/08 [facility] [address] [place] [address] documented as of this encounter
--- OUTSIDE RECORDS SUMMARY | 2021-09-05 01:12 | XMS_ITS | Encounter Summary ---
:1950 Author Organization [facility] Address [address] [place] [address] Care Team Providers Name Role Phone Jeanna Smith NP Primary Care Provider Reason for Visit Reason Comments Joint Pain here for follow up Encounter Details Date Type Department Care Team Description 09/17/2010 Office Visit [facility] Jimmy Burleosn Chi, MD Psoriatic arthritis ([facility]); Rheumatology & [address] Psoriasis; Immunology - [facility] Osteoarthritis cervical spine; [facility] Plantar fasciitis; [address] [place] [address] Pavilion, Level 5 Encounter for long-term (current) use of other medications [place], [place] [id number] [place] [address] [phone] Social History Tobacco Use Types Packs/Day Years Used Date Never Smoker Smokeless Tobacco: Never Used Alcohol Use Standard Drinks/Week Comments No 0 (1 standard drink = 0.6 oz pure alcoho l) Sex Assigned at Date Recorded Not on file documented as of this encounter Last Filed Vital Signs Vital Sign Reading Time Taken Comments Blood Pressure 106/68 09/17/2010 1005 EDT Pulse 80 09/17/2010 1005 EDT Temperature - - Respiratory Rate 14 09/17/2010 1005 EDT Oxygen Saturation - - Inhaled Oxygen Concentration - - Weight 50.1 kg (110 lb 6.4 oz) 09/17/2010 1005 EDT Height 156.9 cm (5' 1.77) 09/17/2010 1005 EDT Body Mass Index 20.34 09/17/2010 1005 EDT documented in this encounter Progress Notes Jimmy Burleson Chi, MD - 09/17/2010 1020 EDT Images from the original note were not included. Subjective: Patient ID: Sheeren Vega is an 60 y.o. female. Chief Complaint Patient presents with ??? Joint Pain here for follow up HPI Comments: Has lost 10 lbs over 5 months, attributed to increased physical activity. Has chronic poor appetite; denies eating less than usual. 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 Has increased bilat hand numbness. Had ncv on hands and feet 1 yr ago- not surewhat this showed. On humira q 14 days and feels the humira is helping arthritis more than Enbrel did; has less stiffness; can't tell if humira has helped jt swelling. Joint pains are less severe; L knee and hands bother the most. Chronic low back pain; assoc with gas. Neck is always sore. Feet are pain ful on bottoms if she stands too long in sandals. Patient Active Problem List Diagnoses Code ??? Psoriatic arthritis 696.0G ??? Psoriasis 696.1U ??? Osteoarthritis cervical spine 721.0K ??? Hypercholesterolemia 272.0L ??? Hypothyroidism 244.9AP ??? Diabetes mellitus 250.00A ??? Helicobacter pylori (H. pylori) 041.86 ??? Depression 311L ??? Osteopenia 733.90X Past Medical History Diagnosis Date ??? Plantar fasciitis bilateral ??? Thrombocytopenia 03/18/2009 Quinine-induced thrombocytopenia in 07/2002 No past surgical history on file. Family History Problem Relation Age of Onset ??? Arthritis ??? Arthritis-Osteo Father ??? Osteoporosis ??? Diabetes ??? Heart Disease Social History Substance Use Topics ??? Smoking status: Never Smoker ??? Smokeless tobacco: Never Used ??? Alcohol Use: No Current outpatient prescriptions ordered prior to encounter Medication Sig Dispense Refill ??? adalimumab (HUMIRA PEN) 40 mg/0.8 mL PnKt Inject 0.8 mL into the skin every 14 days. Every two weeks. 6 mL 1 ??? celecoxib (CELEBREX) 100 mg capsule Take 1 Cap by mouth 2 times daily. 60 Cap 5 ??? calcium carbonate (OS-MANDI) 500 mg (1,250 [...] tablet Take 1 Tab by mouth daily. methotrexate 2.5 mg tablet; Take 5 mg by mouth once a week. 2 tabs - levothyroxine (SYNTHROID) 75 mcg tablet; Take 75 mcg by mouth daily. - metformin (GLUCOPHAGE) 1,000 mg tablet; Take 1,000 mg by mouth 2 times daily. - DOCUSATE CALCIUM (STOOL SOFTENER ORAL); Take by mouth daily. Allergies Allergen Reactions ??? Quinine Other (See Comments) ??? Penicillins Hives ??? Erythromycin Upset stomach Review of Systems Constitutional: Positive for weight loss and malaise/fatigue. Negative for fever, chills and diaphoresis. HENT: Positive for neck pain. No oral ulcers No dry mouth Eyes: Negative for pain. No dry eyes Respiratory: Positive for shortness of breath (with exertion). Negative for cough. Cardiovascular: Negative for chest pain and palpitations. No raynauds Gastrointestinal: Negative for heartburn, nausea, abdominal pain, diarrhea, constipation and blood in stool. Genitourinary: Negative for dysuria, frequency and hematuria. Musculoskeletal: Positive for myalgias, back pain and joint pain. 1 hr Am stiffness Skin: Positive for itching. Negative for rash. No sun sensitive rashes Post scalp psoriasis- some improvement Neurological: Positive for tingling (hands), focal weakness and headaches. Endo/Heme/Allergies: Does not bruise/bleed easily. Psychiatric/Behavioral: Negative for depression. The patient has insomnia. The patient is not nervous/anxious. All other systems reviewed and are negative. - See HPI Objective: BP 106/68 Pulse 80 Resp 14 Ht 156.9 cm (61.77) Wt 50.077 kg (110 lb 6.4 oz) BMI 20.34 kg/m2 Physical Exam Vitals reviewed. Constitutional: She is oriented to person, place, and time. No distress. Slender, older female accompanied by JIMMIET: Head: Normocephalic and atraumatic. Mouth/Throat: Oropharynx is clear and moist. edentulous Eyes: Conjunctivae and extraocular motions are normal. Pupils are equal, round, and reactive to light. Neck: No thyromegaly present. Cardiovascular: Normal rate and regular rhythm. Murmur (1/6 early systolic) heard. Pulmonary/Chest: Breath sounds normal. No respiratory distress. She has no wheezes. She has no rales. Abdominal: Soft. There is no hepatomegaly. No tenderness. Musculoskeletal: A complete msk exam was done and significant findings shown on homonculus. Neurological: She is alert and oriented to person, place, and time. No cranial nerve deficit. Gait normal. Skin: Rash (small psoriatic plaques at occiput) noted. There is pallor. Psychiatric: She has a normal mood and affect. Her behavior is normal. 01/31 outside labs: CBC normal except plts 120 K. BMP normal Vit D 25 OH- 22 Assessment: Plan: Shereen was seen today for joint pain. Diagnoses and associated orders for this visit: Psoriatic arthritis Improved on humira; con't mtx + humira with q 3 to 4 mo. CBC, CMP monitoring for toxicity. - Hemagram & Differential; Standing - Comprehensive Metabolic Panel (CMP); Standing - Sed. Rate:Westergren; Standing Psoriasis Minimal on humira. Osteoarthritis cervical spine Contributing to chronic neck pain. Plantar fasciitis Use related and also may be manifestation of Psoriatic arthritis. Wear more supportive shoes at work. Encounter for long-term (current) use of other medications - Hemagram & Differential; Standing - Comprehensive Metabolic Panel (CMP); Standing - Sed. Rate:Westergren; Standing Barriers to learning identified: No Patient verbalizes understanding and agrees with plan Yes F/u 6 mos. documented in this encounter Plan of Treatment Not on filedocumented as of this encounter Visit Diagnoses Diagnosis Psoriatic arthritis (HCC-CMS) (HCC) Psoriatic arthropathy Psoriasis Other psoriasis Osteoarthritis cervical spine Cervical spondylosis without myelopathy Plantar fasciitis Plantar fascial fibromatosis Encounter for long-term (current) use of other medications documented in this encounter Discontinued Medications Medication Sig Discontinue Reason Start Date End Date levothyroxine (SYNTHROID) Take 100 mcg by Dose adjustment 09/17/2010 100 mcg tablet mouth daily. metformin (GLUCOPHAGE) 850 Take 850 mg by Dose adjustment 09/17/2010 mg tablet mouth 2 times daily. methotrexate 2.5 mg Take 3 Tabs by Dose adjustment 04/07/2010 tabletIndications: mouth once a week. Psoriatic arthritis ([facility]), Psoriasis documented as of this encounter Historical Medications This list may reflect changes made after this encounter. Medication Sig Dispensed Refills Start Date End Date DOCUSATE CALCIUM (STOOL Take by mouth 0 1 SOFTENER ORAL) daily. metformin (GLUCOPHAGE) Take 1,000 mg by 0 011 1,000 mg tablet mouth 2 times daily. levothyroxine (SYNTHROID) Take 75 mcg by 0 75 mcg tablet mouth daily. methotrexate 2.5 mg tablet Take 5 mg by mouth 0 0 09/17/2010 11/05/2010 once a week. 2 tabs added in this encounter Care Teams Crime Lab Technician Relationship Specialty Start Date End Date Jeanna Smith NP PCP - General 06/14/08 [facility] [address] [place] [address] documented as of this encounter
--- OUTSIDE RECORDS SUMMARY | 2021-09-05 01:12 | XMS_ITS | Encounter Summary ---
:1950 Author Organization [facility] Address [address] [place] [id number] Care Team Providers Name Role Phone Jeanna Smith NP Primary Care Provider Reason for Visit Reason Onset Date Comments Medications Refill 02/03/2011 Encounter Details Date Type Department Care Team Description 02/03/2011 Refill [facility] Jimmy Burleson Chi, MD Medications Refill Rheumatology & Immunology [address] [place] [address], [address] [place], [place] [id number] [place] [address] [phone] (Wo rk) Social History Tobacco Use Types [...] Take 1 Cap by 60 Cap 5 02/0308/17/2011 capsuleIndications: mouth 2 times Psoriatic arthritis daily. ([facility] ([facility]), Osteoarthritis cervical spine documented in this encounter Plan of Treatment Not on filedocumented as of this encounter Visit Diagnoses Diagnosis Psoriatic arthritis ([facility]) ([facility]) Psoriatic arthropathy Osteoarthritis cervical spine Cervical spondylosis without myelopathy documented in this encounter Discontinued Medications Medication Sig Discontinue Reason Start Date End Date celecoxib (CELEBREX) 100 mg Take 1 Cap by Reorder 04/07/2010 02/03/2011 capsuleIndications: mouth 2 times Psoriatic arthritis daily. ([facility] ([facility]), Osteoarthritis cervical spine documented as of this encounter Care Teams Epilepsy Physician Relationship Specialty Start Date End Date Jeanna Smith NP PCP - General 06/14/08 [facility] [address] [place], [place] [address] documented as of this encounter
--- OUTSIDE RECORDS SUMMARY | 2021-09-05 01:12 | XMS_ITS | Encounter Summary ---
:1950 Author Organization [facility] Address [address] [place] [address] Care Team Providers Name Role Phone Jeanna Smith CAN CRIMPER Primary Care Provider Encounter Details Date Type Department Care Team Description 03/03/2010 Orders Only [facility] Minal Lorenzo tic arthritis (CMS-HCC); Rheumatology & HANNA Rosales Encounter for long-term (current) use of other medications; Immunology - [facility] Other abnormal clinical find ing [address], [place] [id number] Social History Tobacco Use Types Packs/Day Years Used Date Never Assessed Sex Assigned at Date Recorded Not on file documented as of this encounter Plan of Treatment Not on filedocumented as of this encounter Visit Diagnoses Diagnosis Psoriatic arthritis ([facility]) (HCC) Psoriatic arthropathy Encounter for long-term (current) use of other medications Other abnormal clinical finding documented in this encounter Care Teams Metal Wire Technician Relationship Specialty Start Date End Date Jeanna Smith, CAN CRIMPER PCP - General 06/14/08 [facility] [address] [place], [place] [address] documented as of this encounter
--- OUTSIDE RECORDS SUMMARY | 2021-09-05 01:12 | XMS_ITS | Encounter Summary ---
:1950 Author Organization [facility] Address [address] [place] [address] Care Team Providers Name Role Phone Jeanna Smith NP Primary Care Provider Reason for Visit Reason Onset Date Comments Medications Refill 11/05/2010 Encounter Details Date Type Department Care Team Description 11/05/2010 Refill [facility] Anu Hernandez RN In dications Refill Rheumatology & Immunology - [facility] [address] [place] [address] Social History Tobacco Use Types [...] tablet Take 2 Tabs by 24 Tab 3 11/0505/21/2011 mouth once a week. adalimumab (HUMIRA PEN) 40 Inject 0.8 mL into 6 Pen 3 0 11/05/2010 11/04/2011 mg/0.8 mL PnKt the skin every 14 days. Every two weeks. documented in this encounter Plan of Treatment Not on filedocumented as of this encounter Visit Diagnoses Not on filedocumented in this encounter Discontinued Medications Medication Sig Discontinue Reason Start Date End Date adalimumab (HUMIRA PEN) Inject 0.8 mL into Reorder 05/14/2010 11/05/2010 40 mg/0.8 mL PnKt the skin every 14 days. Every two weeks. methotrexate 2.5 mg Take 5 mg by mouth Reorder 09/17/2010 tablet once a week. 2 tabs documented as of this encounter Care Teams Clothes Model Relationship Specialty Start Date End Date Jeanna Smith, GAS MAKER PCP - General 06/14/08 [facility] [address] [place] [address] documented as of this encounter
--- OUTSIDE RECORDS SUMMARY | 2021-09-05 01:12 | XMS_ITS | Encounter Summary ---
:[address] [facility] Address [address] [place] [address] Care Team Providers Name Role Phone Jeanna Smith NP Primary Care Provider Reason for Visit Reason Onset Date Comments Medications Refill 11/13/2010 Encounter Details Date Type Department Care Team Description 11/13/2010 Refill [facility] Anu Hernandez RN Va dications Refill Rheumatology & Immunology - [facility] [address] [place] [address] Social History Tobacco Use Types [...] on filedocumented in this encounter Care Teams Psychology Intern Relationship Specialty Start Date End Date Jeanna Smith NP PCP - General 06/14/08 [facility] [address] [place], [place] [phone] documented as of this encounter
--- OUTSIDE RECORDS SUMMARY | 2021-09-05 01:12 | XMS_ITS | Encounter Summary ---
:1950 Author Organization [facility] Address [address] [place] [address] Care Team Providers Name Role Phone Jeanna Iglesias SCHOOL BUS MECHANIC Primary Care Provider Encounter Details Date Type Department Care Team Description 01/16/2003 Results Only [facility] - Jeanna Lincoln, SCHOOL BUS MECHANIC conversion [facility] [address] [place] [address] [place], [place] [address] [phone] Social History Tobacco Use Types Packs/Day Years Used Date Never Assessed Sex Assigned at Date Recorded Not on file documented as of this encounter Plan of Treatment Not on filedocumented as of this encounter Procedures Procedure Name Priority Date/Time Associated Diagnosis Comme nts CYTOPATHOLOGY Routine 01/16/2003 0:00 EST Results for this procedure are i n the results section . documented in this encounter Results CYTOPATHOLOGY (01/16/2003 0:00 EST) Pathology Report: CYTOPATHOLOGY REPORT [facility] Reports generated via electronic interface contain erika ginal data; however they are lacking the format of the original re port. Caution should be taken when reading/interpreting unfo rmatted reports. Name: ? ELEAZAR SORIANO ? Accession #: ? [id number] : ? 1950 (Age: 52) ??F ?Collect Date: ? 12/24 Location: ? [facility] ? Receive Date : ? 01/19/2003 Provider: ?JEANNA IGLESIAS SCHOOL BUS MECHANIC Copy to: ? Specimen/Source: ?ThinPrep Pap Test, Cervix/ Endocervix Last Menstrual Period: ? 15 + years ? SPECIMEN ADEQUACY ? Satisfactory for Evaluation - assessment of transformation zone component not appl icable ( e.g. atrophy, vaginal sample, hysterectomy) GENERAL CATEGORIZATION ? Negative for Intraepithelial Lesion or Malignan cy ? Document reviewed and electronically signed by: ? RADHA Ennis(ASCP)(IAC) ? Report Date: ??01/23/2003 15:44 End of Report Specimen Performing Organization Address City/State/ZIP Code Phon e Number [facility] [address] [place] [address] SERVICES [facility] [address] [place] [address] documented in this encounter Visit Diagnoses Not on filedocumented in this encounter Care Teams Internet Designer Relationship Specialty Start Date End Date Jeanna Iglesias NP PCP - General 06/14/08 [facility] [address] [place], [place] [address] documented as of this encounter
--- OUTSIDE RECORDS SUMMARY | 2021-09-05 01:12 | XMS_ITS | Encounter Summary ---
:1950 Author Organization [facility] Address [address] [place] [address] Care Team Providers Name Role Phone Jeanna Smith STOCK CLERK Primary Care Provider Encounter Details Date Type Department Care Team Description 12/15/2004 Hospital Encounter [facility] - Jimmy Burleson Chi, MD [address] [address] [address], [place] [phone] (Wo rk) Social History Tobacco Use Types [...] on filedocumented in this encounter Care Teams Canned Food Reconditioning Inspector Relationship Specialty Start Date End Date Jeanna Smith, STOCK CLERK PCP - General 06/14/08 [facility] [address] [place], [place] [address] documented as of this encounter
--- OUTSIDE RECORDS SUMMARY | 2021-09-05 01:13 | XMS_ITS | Encounter Summary ---
:1950 Author Organization [facility] Address [address] [place] [address] Care Team Providers Name Role Phone Jeanna Smith COMPUTER CONSOLE OPERATOR Primary Care Provider Encounter Details Date Type Department Care Team Description 10/02/2002 Hospital Encounter [facility] - Lisy Farah, Other MD [address] [place] [address] [address] [phone] [place] [phone] (Wo rk) Social History Tobacco Use Types [...] on filedocumented in this encounter Care Teams Control Systems Developer Relationship Specialty Start Date End Date Jeanna Smith, COMPUTER CONSOLE OPERATOR PCP - General 06/14/08 [facility] [address] [place], [place] [phone] documented as of this encounter
--- OUTSIDE RECORDS SUMMARY | 2021-09-05 01:13 | XMS_ITS | Encounter Summary ---
:1950 Author Organization [facility] Address [address] [place] [address] Care Team Providers Name Role Phone Unavailable Primary Care Provider Unavailable Encounter Details Date Type Department Care Team Description 08/26/2002 - Hospital Encounter [facility] Fabiola Farah 08/29/2002 Hematology & Oncology MD [facility] [address] [place] [address] [place] [address] [phone] Social History Tobacco Use Types Packs/Day Years Used Date Never Assessed Sex Assigned at Date Recorded Not on file documented as of this encounter Discharge Disposition Disposition Code Departure Means Destination Home or Self Care documented in this encounter Plan of Treatment Not on filedocumented as of this encounter Procedures Procedure Name Priority Date/Time Associated Comments Diagnosis GLUCOSE, GLUCOMETER Routine 08/29/2002 11:17 Resu lts for this EDT procedure are i n the results section. GLUCOSE, GLUCOMETER Routine 08/29/2002 7:04 Resul ts for this EDT procedure are i n the results section. COMPLETE BLOOD COUNT Routine 08/29/2002 6:45 Resu lts for this EDT procedure are i n the results section. GLUCOSE, GLUCOMETER Routine 08/28/2002 22:02 Resu lts for this EDT procedure are i n the results section. GLUCOSE, GLUCOMETER Routine 08/28/2002 17:27 Resu lts for this EDT procedure are i n the results section. MISCELLANEOUS TEST, Routine 08/28/2002 14:00 Resu lts for this DRYDEN EDT procedure are i n the results section. MISCELLANEOUS TEST, Routine 08/28/2002 14:00 Resu lts for this DRYDEN EDT procedure are i n the results section. COMPLETE BLOOD COUNT Routine 08/28/2002 13:38 Res ults for this EDT procedure are i n the results section. GLUCOSE, GLUCOMETER Routine 08/28/2002 11:26 Resu lts for this EDT procedure are i n the results section. COMPLETE BLOOD COUNT Routine 08/28/2002 6:00 Resu lts for this EDT procedure are i n the results section. GLUCOSE, GLUCOMETER Routine 08/28/2002 5:51 Resul ts for this EDT procedure are i n the results section. GLUCOSE, GLUCOMETER Routine 08/27/2002 22:04 Resu lts for this EDT procedure are i n the results section. GLUCOSE, GLUCOMETER Routine 08/27/2002 17:10 Resu lts for this EDT procedure are i n the results section. LUPUS ANTICOAGULANT Routine 08/27/2002 16:20 Resu lts for this WORKUP EDT procedure are i n the results section. LDH Routine 08/27/2002 16:20 Results for this EDT procedure are i n the results section. GLUCOSE, GLUCOMETER Routine 08/27/2002 11:33 Resu lts for this EDT procedure are i n the results section. LUPUS ANTICOAGULANT Routine 08/27/2002 5:40 Resul ts for this WORKUP EDT procedure are i n the results section. COMPLETE BLOOD COUNT Routine 08/27/2002 5:40 Resu lts for this EDT procedure are i n the results section. HELICOBACTER PYLORI Routine 08/26/2002 23:59 Resu lts for this EDT procedure are i n the results section. PTT Routine 08/26/2002 23:59 Results for this EDT procedure are i n the results section. PROTIME Routine 08/26/2002 23:59 Results for this EDT procedure are i n the results section. FIBRINOGEN Routine 08/26/2002 23:59 Results for this EDT procedure are i n the results section. D-DIMER Routine 08/26/2002 23:59 Results for this EDT procedure are i n the results section. COMPLETE BLOOD COUNT Routine 08/26/2002 23:59 Res ults for this AND DIFFERENTIAL EDT procedure a re in the results section. HEPATIC FUNCTION PANEL Routine 08/26/2002 23:59 R esults for this (ALB,ALK EDT procedure are i n PHOS,ALT,AST,DBIL,TOT the re sults ANA,TOT PROT) section. BASIC METABOLIC PANEL Routine 08/26/2002 23:59 Re sults for this (BMP) EDT procedure are i n the results section. documented in this encounter Results (ABNORMAL) GLUCOSE, GLUCOMETER (08/29/2002 11:17 EDT) Glucose, 242 (H) 70 - 110 [facility] Fingerstick MG/DL LAB Hearing Consultant ID [id number] [facility] Test Performed by Nursing Services LAB Specimen Performing Organization Address [facility] Phon e Number [facility] [address] [place] [address] SERVICES [facility] [address] [place] [address] (ABNORMAL) GLUCOSE, GLUCOMETER (08/29/2002 7:04 EDT) Glucose, 233 (H) 70 - 110 [facility] Fingerstick MG/DL LAB Hearing Consultant ID [id number] [facility] Test Performed by Nursing Services LAB Specimen Performing Organization Address [facility] Phon e Number [facility] [address] [place] [address] SERVICES [facility] [address] [place] [address] (ABNORMAL) HEMAGRAM (08/29/2002 6:45 EDT) Pathologist Sig nature WBC 8.88 4.0 - 12.4 K/cmm [facility] RBC 4.02 3.86 - 5.04 M/cmm [facility] Hemoglobin 13.0 11.6 - 15.2 gm/dl [facility] HCT 37.1 34.9 - 44.4 % [facility] MCV 93 81 - 98 fl [facility] MCH 32.5 26.7 - 33.3 pg [facility] MCHC 35.1 32.1 - 35.9 gm/dl [facility] PLT 51 (L) 141 - 320 K/cmm [facility] RDW-CV 12.7 11.7 - 14.6 % [facility] Specimen Performing Organization Address [facility] Phon e Number [facility] [address] [place] [address] SERVICES [facility] [address] [place] [address] (ABNORMAL) GLUCOSE, GLUCOMETER (08/28/2002 22:02 EDT) Glucose, 278 (H) 70 - 110 [facility] Fingerstick MG/DL LAB Hearing Consultant ID [id number] [facility] Test Performed by Nursing Services LAB Specimen Performing Organization Address [facility] Phon e Number [facility] [address] [place] [address] SERVICES [facility] [address] [place] [address] (ABNORMAL) GLUCOSE, GLUCOMETER (08/28/2002 17:27 EDT) Glucose, 278 (H) 70 - 110 [facility] Fingerstick MG/DL LAB Hearing Consultant ID [id number] [facility] Test Performed by Nursing Services LAB Specimen Performing Organization Address [facility] Code Phon e Number [facility] [address] [place] [address] SERVICES [facility] [address] [place] [address] MISCELLANEOUS TEST (08/28/2002 14:00 EDT) Pathologist Sig nature Test Name [employer] [facility] Ref Lab [facility] BLOOD [facility] Specimen Performing Organization Address [facility] Phon e Number [facility] [address] [place] [address] SERVICES [facility] [address] [place] [address] MISCELLANEOUS TEST (08/28/2002 14:00 EDT) Pathologist Sig nature Test Name ANTI QUININE PLATELET [facility] ANTIBODY Result (Note) [facility] DRUG -DEPENDENT PLATELET ANT IBODY ? PATIENT'S SERUM WITHOUT DRUG ? 7/7/03 2:00:00 PM ? NON DRUG ?IgG RESULT ?IgM RESULT ? POSITIVE ? NEGATIVE ? PATIENT'S SERUM WITH DRUG ? 7/7/03 2:00:00 PM ? QUININE ? IgG RESULT ?IgM RESULT ?POSITIVE ?NEGATIVE ? POSITVE REACTIONS DETECTED B Y FLOW CYTOMETRY IN THE ABSENCE OF DRUG ? WHICH WERE POTENTIATED IN TH E PRESENCE OF DRUG. THESE RESULTS ? INDICATE THE PRESENCE OF JONAS NINE-DEPENDENT AND NON-DRUG DEPENDENT ? PLATELET-REACTIVE ANTIBODIES . THESE RESULTS WOULD SUPPORT A DIAGNOSIS ? OF QUININE-INDUCED THROMBOCY TOPENIA. ? SEE SUPPLEMENTAL R EPORT ? TEST DONE ? [facility] ? [id number] ? [place] [address] ? Ref Lab [facility] BLOOD [facility] Specimen Performing Organization Address City/[facility]/ZIP Code Phon e Number [facility] [address] [place] [address] SERVICES [facility] [address] [place] [address] (ABNORMAL) HEMAGRAM (08/28/2002 13:38 EDT) [facility] WBC 8.16 4.0 - 12.4 K/cmm [facility] RBC 3.60 (L) 3.86 - 5.04 M/cmm [facility] Hemoglobin 11.6 11.6 - 15.2 gm/dl [facility] HCT 33.7 (L) 34.9 - 44.4 % [facility] MCV 94 81 - 98 fl [facility] MCH 32.3 26.7 - 33.3 pg [facility] MCHC 34.5 32.1 - 35.9 gm/dl [facility] PLT 33 (L) 141 - 320 K/cmm [facility] RDW-CV 13.0 11.7 - 14.6 % [facility] Specimen Performing Organization Address [facility] Code Phon e Number [facility] [address] [place] [address] SERVICES [facility] [address] [place] [address] (ABNORMAL) GLUCOSE, GLUCOMETER (08/28/2002 11:26 EDT) Pathologist [facility] Glucose, 208 (H) 70 - 110 [facility] Fingerstick MG/DL LAB Hearing Consultant ID [id number] [facility] Test Performed by Nursing Services LAB Specimen Performing Organization Address [facility] Phon e Number [facility] [address] [place] [address] SERVICES [facility] [address] [place] [address] (ABNORMAL) HEMAGRAM (08/28/2002 6:00 EDT) Pathologist [facility] zoila WBC 9.48 4.0 - 12.4 K/cmm [facility] RBC 4.01 3.86 - 5.04 M/cmm [facility] Hemoglobin 12.8 11.6 - 15.2 gm/dl [facility] HCT 37.4 34.9 - 44.4 % [facility] MCV 93 81 - 98 fl [facility] MCH 31.9 26.7 - 33.3 pg [facility] MCHC 34.2 32.1 - 35.9 gm/dl [facility] PLT 30 (L) 141 - 320 K/cmm [facility] RDW-CV 12.9 11.7 - 14.6 % [facility] Specimen Performing Organization Address [facility]/[place] [facility] Phon e Number [facility] [address] [place] [address] SERVICES [facility] [address] [place] [address] (ABNORMAL) GLUCOSE, GLUCOMETER (08/28/2002 5:51 EDT) Glucose, 219 (H) 70 - 110 [facility] Fingerstick MG/DL LAB Hearing Consultant ID [id number] [facility] Test Performed by Nursing Services LAB Specimen Performing Organization Address [facility] Phon e Number [facility] [address] [place] [address] SERVICES [facility] [address] [place] [address] (ABNORMAL) GLUCOSE, GLUCOMETER (08/27/2002 22:04 EDT) Glucose, 258 (H) 70 - 110 [facility] Fingerstick MG/DL LAB Hearing Consultant ID [id number] [facility] Test Performed by Nursing Services LAB Specimen Performing Organization Address [facility] Phon e Number [facility] [address] [place] [address] SERVICES [facility] [address] [place] [address] (ABNORMAL) GLUCOSE, GLUCOMETER (08/27/2002 17:10 EDT) Glucose, 278 (H) 70 - 110 [facility] Fingerstick MG/DL LAB Hearing Consultant ID [id number] [facility] Test Performed by Nursing Services LAB Specimen Performing Organization Address [facility] Phon e Number [facility] [address] [place] [address] SERVICES [facility] [address] [place] [address] LDH (08/27/2002 16:20 EDT) Pathologist Sig nature LDH 433 313 - 618 U/L [facility] Specimen Performing Organization Address [facility] Phon e Number [facility] [address] [place] [address] SERVICES [facility] [address] [place] [address] LUPUS WORK-UP (08/27/2002 16:20 EDT) Dilute Viper 29.3 24.5 - 33.7 [facility] [place] Comment: secs LAB Results must be interpreted with caution if the patien t is on oral anticoagulant, direct thrombin inhibitors or heparin. PTT 23Comment: 23 - 33 secs [facility] Therapeutic Heparin LAB range: 58-100 seconds Patient PTT50 Test cancelled, 23 - 33 secs [facility] normal APTT LAB CTRL 50/50 PTT Test cancelled, secs [facility] normal APTT LAB Mix 50/50 PTT Test cancelled, secs [facility] normal APTT LAB Specimen Performing Organization Address City/[facility]/ZIP Code Phon e Number [facility] [address] [place] [address] SERVICES [facility] [address] [place] [address] (ABNORMAL) GLUCOSE, GLUCOMETER (08/27/2002 11:33 EDT) Glucose, 241 (H) 70 - 110 [facility] Fingerstick MG/DL LAB Hearing Consultant ID [id number] [facility] Test Performed by Nursing Services LAB Specimen Performing Organization Address [facility]/ZIP Code Phon e Number [facility] [address] [place] [address] SERVICES [facility] [address] [place] [address] LUPUS WORK-UP (08/27/2002 5:40 EDT) PTT 26Comment: 23 - 33 secs [facility] Therapeutic Heparin range: 58-100 seconds Patient PTT50 Test cancelled, 23 - 33 secs [facility] normal APTT Specimen Performing Organization Address [facility]/[place] [facility] Phon e Number [facility] [address] [place] [address] SERVICES [facility] [address] [place] [address] (ABNORMAL) HEMAGRAM (08/27/2002 5:40 EDT) Pathologist Sig nature WBC 4.65 4.0 - 12.4 K/cmm [facility] RBC 4.07 3.86 - 5.04 M/cmm [facility] Hemoglobin 13.0 11.6 - 15.2 gm/dl [facility] HCT 37.6 34.9 - 44.4 % [facility] MCV 92 81 - 98 fl [facility] MCH 32.1 26.7 - 33.3 pg [facility] MCHC 34.7 32.1 - 35.9 gm/dl [facility] PLT 30 (L) 141 - 320 K/cmm [facility] RDW-CV 12.6 11.7 - 14.6 % [facility] Specimen Performing Organization Address [facility]/ZIP Code Phon e Number [facility] [address] [place] [address] SERVICES [facility] [address] [place] [address] PTT (08/26/2002 23:59 EDT) Pathologist Sig nature PTT 25Comment: Therapeutic 23 - 33 secs [facility] Heparin range: 58-100 seconds Specimen Performing Organization Address [facility]/[place] [facility] Phon e Number [facility] [address] [place] [address] SERVICES [facility] [address] [place] [address] PROTIME (08/26/2002 23:59 EDT) Pro Time 12.6 10.9 - 13.9 [facility] secs I.N.R. 1.0 0.9 - 1.1 [facility] Comment: Ratio Moderate Intensity Coumadin INR = 2.0-3.0 Adjustments in anticoagulant therapy dose should be based upon the INR and NOT the Pro Time. Specimen Performing Organization Address [facility] Phon e Number [facility] [address] [place] [address] SERVICES [facility] [address] [place] [address] LIVER FUNCTION TESTS (08/26/2002 23:59 EDT) Pathologist Sig nature Albumin 4.1 3.0 - 5.5 g/dl [facility] Total Protein 7.6 6.0 - 8.5 g/dl [facility] Total Alkaline 59 38 - 126 U/L [facility] Phosphatase ALT 34 15 - 75 U/L [facility] AST 43 8 - 50 U/L [facility] Unconjugated Bilirubin 0.5 0.1 - 1.1 mg/dl [facility] Conjugated Bilirubin 0.0 0.0 - 0.3 mg/dl [facility] Bilirubin, Total 0.6 0.2 - 1.3 mg/dl [facility] Specimen Performing Organization Address [facility]/Z[facility] Phon e Number [facility] [address] [place] [address] SERVICES [facility] [address] [place] [address] HELICOBACTER PYLORI (08/26/2002 23:59 EDT) Pathologist Sig nature H Pylori IgG 2.48 EIA Value [facility] Comment: <0.91 = Negative 0.91 - 1.09 ??= Equivocal >1.09 = Positive. Specimen Performing Organization Address City/[facility]/ZIP Code Phon e Number [facility] [address] [place] [address] SERVICES [facility] [address] [place] [address] FIBRINOGEN (08/26/2002 23:59 EDT) Pathologist Sig nature Fibrinogen 264 180 - 433 mg/dl [facility] Specimen Performing Organization Address [facility]/Z[place] [facility] Ph[facility] e Number [facility] [address] [place] [address] SERVICES [facility] [address] [place] [address] D-DIMER (08/26/2002 23:59 EDT) Pathologist Sig nature D-Dimer 0.08 <0.50 ug FEU/ml [facility] Specimen Performing Organization Address [facility]/ZIP Code Phon e Number [facility] [address] [place] [address] SERVICES [facility] [address] [place] [address] (ABNORMAL) HEMAGRAM AND DIFFERENTIAL (08/26/2002 23:59 EDT) WBC 5.35 4.0 - 12.4 [facility] K/cmm RBC 4.18 3.86 - 5.04 [facility] M/cmm Hemoglobin 13.3 11.6 - 15.2 [facility] gm/dl HCT 38.8 34.9 - 44.4 % [facility] MCV 93 81 - 98 fl [facility] MCH 31.7 26.7 - 33.3 pg [facility] MCHC 34.3 32.1 - 35.9 [facility] gm/dl PLT 2 (LL) 141 - 320 [facility] K/cmm RDW-CV 12.5 11.7 - 14.6 % [facility] Neutrophils 80 (H) 45.5 - 79.7 % [facility] Lymphocytes 19 15.0 - 46.8 % [facility] Monocytes 1 (L) 1.8 - 12.0 % [facility] ABS Neutrophils 4.28 2.20 - 8.85 [facility] K/cmm ABS Lymphs 1.02 (L) 1.09 - 3.30 [facility] K/cmm ABS Monocytes 0.05 (L) 0.1 - 0.8 [facility] K/cmm RBC Morphology [place] body [facility] 1+ Anisocytosis 1+ Polychromasia Type of Diff: Manual [facility] Specimen Performing Organization Address City/[facility]/ZIP Code Phon e Number [facility] [address] [place] [address] SERVICES [facility] [address] [place] [address] (ABNORMAL) BASIC METABOLIC PANEL (08/26/2002 23:59 EDT) Pathologist [facility] nature Sodium 139 136 - 145 mEq/L [facility] Potassium 4.0 3.5 - 5.0 mEq/L [facility] Chloride 107 96 - 110 mEq/L [facility] CO2 18 (L) 24 - 30 mEq/L [facility] BUN 16 10 - 26 mg/dl [facility] Creatinine 0.7 0.7 - 1.5 mg/dl [facility] Calcium 9.3 8.5 - 10.5 mg/dl [facility] Calculated Calcium 9.6 8.5 - 10.5 mg/dl [facility] Glucose, Serum 232 (H) 70 - 110 mg/dl [facility] Specimen Performing Organization Address [facility]/ZIP Code Phon e Number [facility] [address] [place] [address] SERVICES [facility] [address] [place] [address] documented in this encounter Visit Diagnoses Not on filedocumented in this encounter
--- OUTSIDE RECORDS SUMMARY | 2021-09-05 01:13 | XMS_ITS | Encounter Summary ---
:1950 Author Organization [facility] Address [address] [place] [address] Care Team Providers Name Role Phone Unavailable Primary Care Provider Unavailable Encounter Details Date Type Department Care Team Description 03/30/2001 Hospital Encounter [facility] - Jimmy Burleson Chi, MD Other [address] [address] [address], [place] [address] (Wo rk) Social History Tobacco Use Types Packs/Day Years Used Date Never Assessed Sex Assigned at Date Recorded Not on file documented as of this encounter Discharge Disposition Disposition Code Departure Means Destination Auto Discharge documented in this encounter Plan of Treatment Not on filedocumented as of this encounter Procedures Procedure Name Priority Date/Time Associated Comments Diagnosis HEMAGRAM & DIFF Routine 03/30/2001 13:59 Results for this EST procedure are i n the results section. ARTHRITIS 1 Routine 03/30/2001 13:59 Results for this EST procedure are i n the results section. IMMUNOTYPING, SERUM Routine 03/30/2001 13:59 Resu lts for this EST procedure are i n the results section. DMARD PROFILE Routine 03/30/2001 13:59 Results fo r this EST procedure are i n the results section. HLA B27 SCREEN, DNA Routine 03/30/2001 13:59 Resu lts for this EST procedure are i n the results section. SED RATE Routine 03/30/2001 13:59 Results for this EST procedure are i n the results section. C REACTIVE PROTEIN Routine 03/30/2001 13:59 Resul ts for this EST procedure are i n the results section. SPEP, INCLUDES Routine 03/30/2001 13:59 Results f or this QUANTITATION OF EST procedure ar e in MONOCLONAL SPIKE the results section. KNEES STANDING Routine 03/30/2001 13:57 Results f or this BILATERAL AP EST procedure are i n the results section. HAND 2 VIEWS Routine 03/30/2001 13:56 Results for this BILATERAL EST procedure are i n the results section. documented in this encounter Results (ABNORMAL) SED. RATE:WESTERGREN (03/30/2001 13:59 EST) Pathologist Sig nature Sed. Rate Westergren 33 (H) 0 - 30 mm/hr [facility] Specimen Performing Organization Address [facility] Phon e Number [facility] [address] [place] [address] SERVICES [facility] [address] [place] [address] (ABNORMAL) ELECTROPHORESIS, SERUM (03/30/2001 13:59 EST) Total Protein 7.7 6.0 - 8.5 [facility] g/dl LAB Albumin, SPEP 44.5 (L) 49.0 - 61.0 % [facility] Alpha 1, SPEP 4.1 2.4 - 4.9 % [facility] Alpha 2, SPEP 13.1 10.0 - 19.0 % [facility] Beta, SPEP 15.2 (H) 9.0 - 14.0 % [facility] Gamma, SPEP 23.2 (H) 11.0 - 21.0 % [facility] Comments, SPEP Copy of electrophoretic [facility] scan to follow LAB Specimen Performing Organization Address [facility]/ZIP [facility] Phon e Number [facility] [address] [place] [address] SERVICES [facility] [address] [place] [address] DMARD PROFILE (03/30/2001 13:59 EST) Pathologist Sig nature Total Alkaline 64 38 - 126 U/L [facility] Phosphatase AST 39 8 - 50 U/L [facility] ALT 26 15 - 75 U/L [facility] Albumin 3.7 3.0 - 5.5 g/dl [facility] Creatinine 0.7 0.7 - 1.5 mg/dl [facility] Specimen Performing Organization Address City/State/ZIP Code Phon e Number [facility] [address] [place] [address] SERVICES [facility] [address] [place] [address] IMMUNOFIXATION (03/30/2001 13:59 EST) Immunofixation,ser Negative for [facility] um monoclonal immunoglobulins. Specimen Performing Organization Address City/[facility]/ZIP Code Phon e Number [facility] [address] [place] [address] SERVICES [facility] [address] [place] [address] (ABNORMAL) C-REACTIVE PROTEIN (03/30/2001 13:59 EST) Pathologist Sig nature C-Reactive Protein 1.8 (H) <1.0 mg/dl [facility] Specimen Performing Organization Address City/[facility]/ZIP Code Phon e Number [facility] [address] [place] [address] SERVICES [facility] [address] [place] [address] HEMAGRAM & DIFF (03/30/2001 13:59 EST) Pathologist Sig nature WBC 8.22 4.0 - 12.4 K/cmm [facility] RBC 4.50 3.86 - 5.04 M/cmm [facility] Hemoglobin 14.1 11.6 - 15.2 gm/dl [facility] HCT 40.5 34.9 - 44.4 % [facility] MCV 90 81 - 98 fl [facility] MCH 31.3 26.7 - 33.3 pg [facility] MCHC 34.8 32.1 - 35.9 gm/dl [facility] PLT 273 141 - 320 K/cmm [facility] RDW-CV 12.8 11.7 - 14.6 % [facility] Neutrophils 55.8 45.5 - 79.7 % [facility] Lymphocytes 31.3 15.0 - 46.8 % [facility] Monocytes 8.8 1.8 - 12.0 % [facility] Eosinophils 3.6 0.6 - 6.9 % [facility] Basophils 0.5 0.2 - 1.4 % [facility] ABS Neutrophils 4.59 2.20 - 8.85 K/cmm [facility] ABS Lymphs 2.57 1.09 - 3.30 K/cmm [facility] ABS Monocytes 0.72 0.1 - 0.8 K/cmm [facility] ABS Eosinophils 0.30 0.03 - 0.61 K/cmm [facility] ABS Basophils 0.04 0.01 - 0.11 K/cmm [facility] Type of Diff: Automated [facility] Specimen Performing Organization Address [facility] Phon e Number [facility] [address] [place] [address] SERVICES [facility] [address] [place] [address] HLA B27 (03/30/2001 13:59 EST) Pathologist Sig nature HLA B27 HLA B27 not identified [facility] Crossreactive antigen B7 present Specimen Performing Organization Address [facility] Phon e Number [facility] [address] [place] [phone] SERVICES [facility] [address] [place] [address] ARTHRITIS 1 (03/30/2001 13:59 EST) Pathologist Sig nature Anti Nuclear Ab <40 0 - 40 Dils [facility] Rheumatoid Factor <20 <20 IU/ml [facility] Specimen Performing Organization Address [facility] Phon e Number [facility] [address] [place] [address] SERVICES [facility] [address] [place] [address] KNEES STANDING BILATERAL AP (03/30/2001 13:57 EST) Anatomical Region Laterality Modality Other Specimen Impressions [facility] - 01/02/2009 5: 07 EST IMPRESSION: #1: Bony demineralization with mild sugg estion of rheumatoid arthritis, findings suggestive of osteoa rthritis. #2: There is collapse of the left lunate as described above. KNEES: AP view of both knees demonstrates bilat eral medial femoral tibial joint space loss. There is slight loss o f the normal valgus alignment. No significant bony proliferative rod e or erosive change is seen. D: 04-05-01 T: 04-05-01 /am Narrative [facility] - 01/02/2009 5: 07 EST CHRONIC JOINT PAINS WITH SWELLING, HISTORY OF PSORIACIS R/O RHEUMATOID ARTHRITIS, PSORIATIC ARTH RITIS 03-30-01 BILATERAL HANDS AND BILATERAL KNE ES: AP and lateral views of the hands were o btained. There are no comparisons. FINDINGS: There is bony demineralization of the carpus. There is bilateral left greater than right radioc arpal joint space loss. There is collapse of the left lunate, and slig ht sclerosis which may be secondary to chronic trauma. Kienbock's disease cannot be excluded. There is cystic change within the lunate . There is deformity of the left ulnar sty loid with slight positive ulnar variance. This may be secondary to erosive change. There is bilateral advanced degenerative change of the trapezium trapezoid metacarpal joints, right great er than left. Mild bilateral distal interphalangeal bayron int space loss is noted. There is no evidence of joint subluxatio n or dislocation. Procedure Note Baldo Johnson, PT - 01/02/2009 CHRONIC JOINT PAINS WITH SWELLING, HISTO RY OF PSORIACIS R/O RHEUMATOID ARTHRITIS, PSORIATIC ARTH RITIS 03-30-01 BILATERAL HANDS AND BILATERAL KNE ES: AP and lateral views of the hands were o btained. There are no comparisons. FINDINGS: There is bony demineralization of the carpus. There is bilateral left greater than right radioc arpal joint space loss. There is collapse of the left lunate, and slig ht sclerosis which may be secondary to chronic trauma. Kienbock's disease cannot be excluded. There is cystic change within the lunate . There is deformity of the left ulnar sty loid with slight positive ulnar variance. This may be secondary to erosive change. There is bilateral advanced degenerative change of the trapezium trapezoid metacarpal joints, right great er than left. Mild bilateral distal interphalangeal bayron int space loss is noted. There is no evidence of joint subluxatio n or dislocation. IMPRESSION IMPRESSION: #1: Bony demineralization with mild sugg estion of rheumatoid arthritis, findings suggestive of osteoa rthritis. #2: There is collapse of the left lunate as described above. KNEES: AP view of both knees demonstrates bilat eral medial femoral tibial joint space loss. There is slight loss o f the normal valgus alignment. No significant bony proliferative rod e or erosive change is seen. D: 04-05-01 T: 04-05-01 /am Performing Organization Address [facility] Phon e Number [facility] [address] [facility] [address] [facility] [address] [place] [address] HAND 2 VIEWS BILATERAL (03/30/2001 13:56 EST) Anatomical Region Laterality Modality Other Specimen Narrative [facility] - 01/02/2009 5: 07 EST CHRONIC JOINT PAINS WITH SWELLING, HISTORY OF PSORIACIS R/O RHEUMATOID ARTHRITIS, PSORIATIC ARTH RITIS Procedure Note Baldo Johnson, PT - 01/02/2009 CHRONIC JOINT PAINS WITH SWELLING, HISTO RY OF PSORIACIS R/O RHEUMATOID ARTHRITIS, PSORIATIC ARTH RITIS Performing Organization Address [facility] Phon e Number [facility] [address] [facility] [place] [facility] [address] [facility] [address] [place] [phone] documented in this encounter Visit Diagnoses Not on filedocumented in this encounter
--- OUTSIDE RECORDS SUMMARY | 2021-09-05 01:13 | XMS_ITS | Encounter Summary ---
:1950 Author Organization [facility] system Address [address] [place] [address] Care Team Providers Name Role Phone Jeanna Iglesias FLOORWORKER LASTING Primary Care Provider Encounter Details Date Type Department Care Team Description 01/10/2002 Results Only [facility] - Jeanna Lincoln, FLOORWORKER LASTING conversion [facility] [address] [place] [address] [place], [place] [address] [phone] Social History Tobacco Use Types Packs/Day Years Used Date Never Assessed Sex Assigned at Date Recorded Not on file documented as of this encounter Plan of Treatment Not on filedocumented as of this encounter Procedures Procedure Name Priority Date/Time Associated Diagnosis Comme nts CYTOPATHOLOGY Routine 01/10/2002 0:00 EST Results for this procedure are i n the results section . documented in this encounter Results CYTOPATHOLOGY (01/10/2002 0:00 EST) Pathology Report: CYTOPATHOLOGY REPORT [facility] Reports generated via electronic interface contain erika ginal data; however they are lacking the format of the original re port. Caution should be taken when reading/interpreting unfo rmatted reports. Name: ? ELEAZAR SORIANO ? Accession #: ? [id number] : ? 1950 (Age: 51) ??F ?Collect Date: ? 12/23 Location: ? [facility] ? Receive Date : ? 01/12/2002 Provider: ?JEANNA IGLESIAS FLOORWORKER LASTING Copy to: ? Specimen/Source: ?ThinPrep Pap Test, Cervix/ Endocervix Last Menstrual Period: ? 18 yrs ago ? SPECIMEN ADEQUACY ? Satisfactory for Evaluation - assessment of transformation zone component not appl icable ( e.g. atrophy, vaginal sample, hysterectomy) GENERAL CATEGORIZATION ? Negative for Intraepithelial Lesion or Malignan cy ? Document reviewed and electronically signed by: ? RADHA Ennis(ASCP)(IAC) ? Report Date: ??01/17/2002 16:23 End of Report Specimen Performing Organization Address City/State/ZIP Code Phon e Number [facility] [address] [place] [address] [facility] [address] [place] [address] documented in this encounter Visit Diagnoses Not on filedocumented in this encounter Care Teams Chief Digital Media Officer Relationship Specialty Start Date End Date Jeanna Iglesias NP PCP - General 06/14/08 [facility] [address] [place], [place] [phone] documented as of this encounter
--- OUTSIDE RECORDS SUMMARY | 2021-09-05 01:13 | XMS_ITS | Encounter Summary ---
:1950 Author Organization [facility] Address [address] [place] [address] Care Team Providers Name Role Phone Jeanna Smith DATA MANAGEMENT Primary Care Provider Encounter Details Date Type Department Care Team Description 09/04/2002 Hospital Encounter [facility] - Nicanor Henderson MD Other [address] [facility] [place], [place] [address] [place] [phone] Social History Tobacco Use Types Packs/Day Years [...] on filedocumented in this encounter Care Teams Diamond Mounter Relationship Specialty Start Date End Date Jeanna Smith, LUIS PCP - General 06/14/08 [facility] [address] [place], [place] [phone] documented as of this encounter
[2021-09-05] MEDS: ZOLEDRONIC ACID/MANNITOL/WATER 5 MG/100 ML BTL 300 MG IVPB (12:57)
[2021-09-05] MEDS: Normal Saline Flush 10 ML SYR IVP (12:58)
== END 2021-09-21 23:59 | disposition home or self-care (01) ==
LOC: INF 01:06
PROVIDERS: PCP Nurse Practitioner Family; Visit Provider Nurse Practitioner Acute Care
DX: M81.0 Age-related osteoporosis without current pathological fracture (principal)
CPT/HCPCS: 96365; J3489

== ENCOUNTER → 2021-09-15 01:33 | Outpatient (CLI) | payer MEDICARE, SELFPAY ==
--- NOTE | 2021-09-15 09:15 | DI.NM_ITS ---
APPROVED REPORT Exam: Pharmacologic Patient Location: Out-Patient Room/Bed: Stress Nurse: Kala Hogue RN Ordering Provider:MADAY GUTIÉRREZ, Contact Number: [phone] BMI: 22.45 Baseline Rhythm: Sinus Rhythm Indications: Chest Pain Medical History Medical History: HTN, HLD, DM II, diabetic retinopathy, tremors, unsteady gait, balance issues, seizu re disorder, memory deficit, hx of head injury, thrombocyopenia, degenerative joint disease, anxiety Cardiac Medications: Nitroglycerin, metformin, lovastatin, levothyroxine, insuline detemire, gabapent in, fluticasone, propionate, aspirin, albuterol sulfate Allergies: Penicillin, sulfa salazine, quinine, erythromycin, hydroxychloroquine sulfate Cardiac Risk Factors: Hypertension, hyperlipidemia, diabetes type II, family hx Previous Cardiac Procedures: None Pretest Chest Pain Characteristics: None Exercise History: Indeterminate Physical Disabilities: Balance issues, unsteady gait, tremors Lung Sounds: LCTA Heart Sounds: S1/S2 Stress Test Details Test: Pharmacologic stress was paired with low level exercise. Reason for pharmacologic stress test: physical limitation. Nuclear Acquisition: Rest Tc-99m/Stress Tc-99m 1 day Rest Isotope: Tc-99m Sestamibi. Dose: 9.5 Date: 09/15/2021 Injection Time: 0920 Stress Isotope: Tc-99m Sestamibi. Dose: 31.0 Date: 09/15/2021 Injection Time: 1126 HR Resting HR Supine: 78 bpm Max Heart Rate (APMHR): 148.988083 bpm Resting HR Standin bpm Target HR (85% APMHR): 125.987237 bpm Max HR Achieved: 103 bpm % of APMHR: 69.59 Recovery HR: 92 bpm BP Resting BP Supine: 124/72 mmHg Resting BP Standin/54 mmHg Max BP: 150/90 mmHg Recovery BP: 138/70 mmHg ECG Resting ECG: Sinus Rhythm Ectopy: None Stress ECG: Sinus Tachycardia ST Change: No significant ST segment changes noted, Nondiagnostic low heart rate Arrhythmia: None Recovery ECG: Sinus Rhythm Recovery ST Change: No significant ST segment changes noted, Nondiagnostic low heart rate Recovery Arrhythmia: Occasional PVCs Clinical Stress Symptoms: General Fatigue, Dyspnea Angina Score: None Rate Pressure Product: 51874 Stress ECG Conclusion 1. Resting electrocardiogram showed poor R wave progression 2. Patient underwent testing using combination of low-level exercise and pharmacologic stress with re gadenoson 3. Peak heart rate achieved was 69% of predicted for age 4. The electrocardiographic portion of the test was nondiagnostic due to inadequate heart rate 5. There were occasional premature ventricular contractions 6. See MPI report Stress Test Summary STAGE HR BP SpO2 Symptoms NOTES Supine 78 124/72 SpO2 93% Standing 85 98/54 SpO2 93% 1 min post Lexiscan injection 93 108/62 SpO2 89% Moderate SOB, fatigue 3 min post Lexiscan injection 100 150/90 SpO2 96% SOB improving 6 min post Lexiscan injection 98 148/92 SpO2 96% SOB resolved 9 min post Lexiscan injection 92 138/70 SpO2 96% Pharmacologic stress was paired with low level exercise. Pt ambulated on treadmill at 0.2-0.3 mph, gr jorge 0% during Lexiscan administration. Pt tolerated testing well. MPI Conclusion Myocardial perfusion is normal without evidence of ischemia or prior infarction EF 50% Wall motion is normal Radiologist Interpretation Radiologist agrees with Transactional Attorney's Interpretation. Radiologist Interpretation by: Wilton Huber MD Interpretation Date/Time: 09/15/2021 17:27:33
[2021-09-15] MEDS: Regadenoson 0.4 MG/5 ML SYR IVP (14:09)
== END ==
PROVIDERS: PCP Nurse Practitioner Family; Visit Provider Nurse Practitioner Family
DX: R07.89 Other chest pain (principal)
CPT/HCPCS: 78452; 93016; 93018; 93017; J2785

== ENCOUNTER 2021-09-16 15:05 | Outpatient (REF) | payer MEDICARE, SELFPAY ==
--- NOTE | 2021-09-16 13:20 | VUL_PTH ---
PATIENT: Shereen Vega LOC: [facility] U#:[id number] AGE/SX: 71/F ROOM: RE09/16/[address]: Solange Fuentes DO : 1950 BED: DIS: 09/16/2021 SPEC #: [id number] RECD: 09/16/21 16:58 STATUS: JANESSA REQ #: [id number] MARY KATE: 09/16/21 13:[address]: Solange Fuentes DEPT: Surgical Specimen RECD BY: Nikole Medina ENTERED: 09/16/21 16:58 SP TYPE: VUL OTHR DR: Maricarmen Galvan Tissues: 1 - VULVA BIOPSY Procedures: GROSS AND MICRO LEVEL 4 Comments: [id number]
== END 2021-09-16 15:06 | disposition home or self-care (01) ==
LOC: LBN 15:05
PROVIDERS: PCP Nurse Practitioner Family; Visit Provider Obstetrics & Gynecology
DX: C51.9 Malignant neoplasm of vulva, unspecified (principal)
CPT/HCPCS: 88305

== ENCOUNTER → 2021-09-17 14:03 | Outpatient (CLI) | payer MEDICARE, SELFPAY ==
--- NOTE | 2021-09-17 | DI.RAD_ITS ---
Exam(s) XR SHOULDER RT COMPLETE 2+V EXAM: XR SHOULDER RT COMPLETE 2+V CLINICAL HISTORY: RT SHOULDER PAIN, M25.511. TECHNIQUE: 2D digital imaging was performed of the right shoulder. Five images were obtained. AP, Grashey, Y-view and axillary views were obtained. COMPARISON: No exams were available for comparison FINDINGS: BONES: No acute fracture is present. No bony destructive lesion is seen. JOINTS: No dislocation present. Mild degenerative changes of the acromioclavicular joint. SOFT TISSUE: There is a soft tissue calcification adjacent to the greater tuberosity likely reflectin g calcific tendinitis. IMPRESSION: 1. Degenerative changes of the right shoulder. 2. No acute abnormality. DATA REPOSITORY: RADIATION DOSE DELIVERED:
--- NOTE | 2021-09-17 | DI.CT_ITS ---
Exam(s) CT HEAD WO EXAM: CT HEAD WO CLINICAL HISTORY: H/O HEAD INJURY, Z87.828, S/P FALL OUT OF BED, ECCHYMOSIS RT FRONTAL AREA. TECHNIQUE: Imaging Protocol: Axial computed tomography images with coronal and sagittal reformatted images were created and reviewed COMPARISON: CT HEAD WITHOUT CONTRAST from 01/03/2011 FINDINGS: Ventricles and Extra axial spaces: Normal in size and morphology for the patient's age. Hemorrhage: None. Cerebral parenchyma: No acute territorial infarct is present. There are areas of decreased attenuati on in the white matter consistent with small vessel ischemic disease. Midline shift: None. Brainstem/Cerebellum: Normal. Calvarium: Normal. Visualized Paranasal sinuses/Mastoids: Clear. Soft Tissues: Unremarkable. IMPRESSION: No acute intracranial process. RADIATION DOSE DELIVERED: 630.53mGy.cm Total DLP DATA REPOSITORY: All CT scans at this facility are submitted to the National Radiology Data Registry (NRDR) Dose Index Registry (DIR) with the [employer] (ACR). RADIATION OPTIMIZATION: All CT scans at this facility use at least one of these dose optimization te chniques: automated exposure control; mA and/or kV adjustment per patient size (includes targeted exa ms where dose is matched to clinical indication); or iterative reconstruction.
== END ==
PROVIDERS: PCP Nurse Practitioner Family; Visit Provider Nurse Practitioner Family
DX: M19.011 Primary osteoarthritis, right shoulder (principal); S00.83XA Contusion of other part of head, initial encounter; W06.XXXA Fall from bed, initial encounter
CPT/HCPCS: 70450; 73030

== ENCOUNTER → 2021-10-09 13:55 | Outpatient (BNVA) | payer MEDICARE, SELFPAY | PROVIDERS: PCP Nurse Practitioner Family; Referring Provider Nurse Practitioner Family; Visit Provider Nurse Practitioner Adult Health | DX: E11.42 Type 2 diabetes mellitus with diabetic polyneuropathy (principal); I95.1 Orthostatic hypotension; G31.84 Mild cognitive impairment of uncertain or unknown etiology | CPT/HCPCS: 99214 ==

== ENCOUNTER → 2021-10-17 00:08 | Outpatient (CLI) | payer MEDICARE, SELFPAY ==
--- NOTE | 2021-10-17 | DI.CT_ITS ---
Exam(s) CT ABDOMEN PELVIS W EXAM: CT ABDOMEN PELVIS W CLINICAL HISTORY: VULVAR CA,C51.9,METASTATIC DISEASE EVALUATION. TECHNIQUE: Imaging Protocol: Axial computed tomography images with coronal and sagittal reformatted images were created and reviewed CONTRAST MATERIAL: Intravenous: Omnipaque 100cc Oral: Yes. Oral contrast was also administered for bowel opacification. COMPARISON: CT,NM,TMT NM MPI REST STRESS GRP from 09/15/[address] HEAD WO from 09/17/2021 FINDINGS: VISUALIZED LUNG BASES: No nodules nor pleural effusions evident. ABDOMEN: There is no ascites. LIVER: There are 3 very subtle hypodensities in the right hepatic lobe, all measuring less than 1 cm. These are denser than cysts. Possible fibroadenomas or other pathology. No dilated intrahepatic d ucts. Recanalized umbilical vein noted GALLBLADDER/BILIARY: No obvious gallbladder pathology. CBD is not dilated. PANCREAS: No evidence of pancreatic mass nor dilatation of the pancreatic duct. SPLEEN: Mild splenomegaly. No intrasplenic lesions collateral varices noted including lower esophage al varices. ADRENALS: There are no significant adrenal masses. KIDNEYS:No cysts evident. No solid renal masses. No calculi nor hydronephrosis.. ABDOMINAL AORTA: Abdominal aorta is not enlarged. LYMPH NODES:There is no retroperitoneal nor paraaortic adenopathy. ABDOMINAL WALL: No evidence of significant anterior abdominal wall nor inguinal hernia. GI: There is no evidence of bowel obstruction, free air, nor abscess. PELVIS: GI: No evidence of appendicitis.No evidence of sigmoid diverticulitis. LYMPH NODES: There is no intrapelvic nor inguinal adenopathy. REPRODUCTIVE: Uterus and adnexal regions appear age-appropriate. No adnexal masses. No free fluid URINARY BLADDER: No calculi nor obvious masses evident OSSEOUS: T10 vertebral body exhibits corduroy intraosseous pattern, consistent with prominent intraos seous hemangioma at this level. No true lytic osseous lesions. There is partial fusion of L4 and L5 vertebral bodies anteriorly. Mild degenerative anterolisthesis L5 upon S1. No pars defects at this level. IMPRESSION: 1. There is mild splenomegaly and collateralization including esophageal varices and recanalized umbi lical vein, these findings consistent with portal venous hypertension. There is no ascites. The willie er does not appear typically cirrhotic, exhibiting normal size and without obvious surface nodularity . However, there are few subtle hypodensities in the right hepatic lobe which are not typical cysts. Require follow-up. These all measure less than 1 cm. 2. No lytic nor blastic osseous lesions. The T10 vertebral artery contains a prominent nonexpansile benign intraosseous hemangioma. 3. 4. RADIATION DOSE DELIVERED: 709.83mGy.cm Total DLP DATA REPOSITORY: All CT scans at this facility are submitted to the National Radiology Data Registry (NRDR) Dose Index Registry (DIR) with the [employer] (ACR). RADIATION OPTIMIZATION: All CT scans at this facility use at least one of these dose optimization te chniques: automated exposure control; mA and/or kV adjustment per patient size (includes targeted exa ms where dose is matched to clinical indication); or iterative reconstruction.
[2021-10-17] MEDS: Omnipaque 350 MG/ML 100 ML BTL 83 ML IJ (10:07)
== END ==
PROVIDERS: PCP Nurse Practitioner Family; Visit Provider Obstetrics & Gynecology
DX: C51.9 Malignant neoplasm of vulva, unspecified (principal); Z12.89 Encounter for screening for malignant neoplasm of other sites; K76.89 Other specified diseases of liver; R16.1 Splenomegaly, not elsewhere classified; K76.6 Portal hypertension
CPT/HCPCS: 74177; J3490

== ENCOUNTER 2021-11-13 04:04 | Outpatient (CLI) | payer MEDICARE, SELFPAY ==
--- NOTE | 2021-11-13 08:45 | RT.EKG_ITS ---
APPROVED REPORT Exam: Resting ECG Reason for Exam: Pre-op Vulvar Cancer Patient Location: O HR:84 bpm ECG Measurements Heart Rate 84 AXIS NE [id number] P [id number] QRSd 98 QRS -22 QT 387 T 51 QTc 458 Conclusion Normal sinus rhythm Normal EKG
== END 2021-11-13 04:05 | disposition home or self-care (01) ==
LOC: RT 04:04
PROVIDERS: PCP Nurse Practitioner Family; Visit Provider Nurse Practitioner Family
DX: C51.9 Malignant neoplasm of vulva, unspecified (principal); Z01.810 Encounter for preprocedural cardiovascular examination
CPT/HCPCS: 93005; 93010

== ENCOUNTER 2021-12-15 14:46 | Outpatient (REF) | payer MEDICARE, SELFPAY | END 2021-12-15 14:47 | disposition home or self-care (01) | LOC: NCHCN 14:46 | PROVIDERS: PCP Nurse Practitioner Family; Visit Provider Nurse Practitioner Family | DX: R35.0 Frequency of micturition (principal); N39.0 Urinary tract infection, site not specified | CPT/HCPCS: 87086 ==

== ENCOUNTER 2022-01-13 20:36 | Outpatient (REF) | payer MEDICARE, SELFPAY ==
[2022-01-13 15:46] LABS: FREE T4 0.72 ng/dL (0.76-1.46); TSH 1.65 uIU/mL (0.36-3.74)
[2022-01-13 15:56] LABS: HCT 36.9 % (36.0-46.0); HGB 12.1 g/dL (11.2-15.7); MCHC 32.8 % (32.0-36.0); MCV 92 fL (80-95); MPV 10.6 fL (8.0-11.0); Platelet Count 105 10^3/uL (130-400); RBC 4.03 10^6/uL (3.93-5.22); RDW 14.4 % (11.7-14.6); RDW-SD 48.5 fL; WBC 3.99 10^3/uL (4.4-10.8)
[2022-01-13 16:36] LABS: Hemoglobin A1C 7.9 % (<5.7)
== END 2022-01-13 20:37 | disposition home or self-care (01) ==
LOC: NCHCN 20:36
PROVIDERS: PCP Nurse Practitioner Family; Visit Provider Nurse Practitioner Family
DX: E11.40 Type 2 diabetes mellitus with diabetic neuropathy, unspecified (principal); E03.9 Hypothyroidism, unspecified; R42 Dizziness and giddiness; R26.81 Unsteadiness on feet
CPT/HCPCS: 85027; 83036; 84439; 84443

== ENCOUNTER 2022-02-23 20:13 | Emergency (ER) | payer MEDICARE, SELFPAY ==
[2022-02-23 20:19] VITALS: BP 144/77; PULSE 94; RESP 14; TEMP 36.6; O2SAT 98
--- NOTE | 2022-02-23 20:50 | ED.GENADUL_ITS ---
Discharge Plan Disposition Patient Disposition: Home Condition: Improving Discharge Details Clinical Impression: Bleeding external hemorrhoids Primary Care Provider: Maricarmen Galvan ED Provider: Yessy Ramirez Home Meds and New Rx's Prescriptions: Continued simethicone [Gas Relief Extra Strength] 125 mg capsule 125 mg PO BID-QID PRN magnesium chloride 64 mg tablet extended release 64 mg PO BID gabapentin 600 mg tablet 600 mg PO TID tramadol 50 mg tablet 50 mg PO DAILY metformin 500 MG tablet 1,000 mg PO DAILY Label Comments: 12/14/16 Now taking 1000mg BID. DM lovastatin 40 MG tablet 40 mg PO DAILY levothyroxine [Levoxyl] 75 MCG tablet 0.075 mcg PO DAILY aspirin [Aspirin Low-Strength] 81 MG tablet,chewable 81 mg PO DAILY FREESTYLE GLUCOMETER (DME) FreeStyle Lite Strips 1 EACH strip 1 ea Miscellaneous TID calcium carbonate-vitamin D3 [Calcium 500 + D] 1 EACH tablet 1 ea PO DAILY cholecalciferol (vitamin D3) 1,000 UNIT capsule 1,000 unit PO DAILY nitroglycerin [Nitrostat] 0.4 mg tablet, sublingual 0.4 mg SL Q5-15M PRN albuterol sulfate [ProAir HFA] 90 mcg/actuation HFA aerosol inhaler 2 puff IH QID paroxetine HCl [Paxil] 20 mg tablet 20 mg PO DAILY Label Comments: PER PT. TAKES 40 MG QD. gabapentin 100 mg capsule 100 mg PO TID Label Comments: 05/03/17 PT. STATES SHE TAKES 600 MG TID. 12/14/16 Pt states she is now taking 600mg TID. DM omeprazole 20 mg capsule,delayed release(DR/EC) 20 mg PO DAILY diclofenac sodium [Arthritis Pain (diclofenac)] 1 % gel 2 g topical QID Rx Instructions: apply to single elbow, wrist or hand; for hand includes palm/fingers/back of hand fluticasone propion-salmeterol [Advair Diskus] 100-50 mcg/dose blister with device 1 inh inhalation BID levetiracetam 250 mg tablet 250 mg PO BID insulin detemir U-100 100 unit/mL (3 mL) insulin pen 30 unit SUBCUT QAM Discharge Instructions Instructions: Hemorrhoids (ED), Rectal Bleeding (ED) Additional Instructions: Exam of the rectum shows an open external hemorrhoid which is no longer bleeding. He did not have any blood internally so I believe all the blood that you saw on the toilet was associated with the bleeding external hemorrhoid. Please perform warm sits baths as we discussed. Encourage hydration to help soften your stool and prevent further straining. You may also try a stool softener such as Colace to help prevent further bleeding associated with straining for bowel movement. Please keep your upcoming appointments for reevaluation. If you develop abdominal pain, lightheadedness, increased bleeding or other new/worsening symptom please seek care urgently once again. Referrals: Maricarmen Galvan [Primary Care Provider] - Medical Decision Making Patient is a pleasant 71-year-old female, accompanied by significant other, with complex past medical history, presenting today with chief complaint of bright red blood per rectum. She reports that prior to tonight's evening she was straining for bowel movement when she noted bright red blood in the toilet. Denies easy bleeding or bruising. States this is resolved after the 1 episode. Denies feeling lightheaded, woozy, having shortness of breath or chest pain. Has had hemorrhoids in the past but states that typically she feels the external hemorrhoids and was not able to palpate that today. On exam, she appears nontoxic. She is hemodynamically stable. She was initially slightly tachycardic and hypertensive but sounds like this likely associated with anxiety. With the at bedside, her heart rate is now down to 88 and her blood pressure systolic is 117. Exam of the rectum reveals 2 small, soft nonthrombosed hemorrhoids. 1 of these has an opening with dried blood around it. No active bleeding. Internal rectal exam shows no blood or stool in the rectal vault. Patient's not having significant symptoms of anemia, is hemodynamically stable, and bleeding has completely subsided., I do not feel that further evaluation is warranted at this time. Rather, I advised her on how to prevent this from recurring in the future. Encourage hydration. I encouraged stool softeners. Encourage sitz bath's. She does have upcoming appointment with [facility] as well as primary care. Return precautions were discussed. All of her questions and concerns were addressed and she is in agreement this plan. HPI General Date/Time Provider Initiated Documentation: 02/23/22 20:13 . Limitations to Documentation: no limitations . Information obtained by: patient, family (), RN notes reviewed and old records reviewed . History of Present Illness 71 year old F presents to the emergency department with the chief complaint of bright red rectal bleeding, currently resolved, described as mild (denies any pain), and is localized to the buttocks. Patient started experiencing this minute(s) and it has been now resolved. No relieving factors improve symptom(s), Other factors that worsen symptoms (straining during BM) . Patient notes no other symptoms.. Patient did receive the following treatments prior to arrival, none Related Data Home Medications Medication Instructions Recorded Confirmed lovastatin 40 mg tablet 40 mg PO DAILY 05/16/13 02/23/22 metformin 500 mg tablet 1,000 mg PO DAILY 05/16/13 02/23/22 Freestyle Glucometer 05/22/14 10/09/21 aspirin 81 mg chewable tablet 81 mg PO DAILY 05/22/14 02/23/22 (Aspirin Low-Strength) levothyroxine 75 mcg tablet 0.075 mcg PO DAILY 05/22/14 02/23/22 (Levoxyl) blood sugar diagnostic (FreeStyle 06/12/14 02/23/22 Lite Strips) calcium carbonate 500 mg-vitamin 1 ea PO DAILY 09/02/16 02/23/22 D3 10 mcg (400 unit) tablet (Calcium 500 + D) cholecalciferol (vitamin D3) 25 1,000 unit PO DAILY 10/01/16 02/23/22 mcg (1,000 unit) capsule albuterol sulfate 90 mcg/actuation 2 puff inhalation QID 06/08/18 02/23/22 aerosol inhaler (ProAir HFA) nitroglycerin 0.4 mg sublingual 0.4 mg sublingual Q5-15M PRN 06/08/18 02/23/22 tablet (Nitrostat) magnesium chloride 64 mg 64 mg PO BID 10/19/18 02/23/22 tablet,extended release simethicone 125 mg capsule (Gas 125 mg PO BID-QID PRN 10/19/18 02/23/22 Relief Extra Strength) paroxetine HCl 20 mg tablet (Paxil) 20 mg PO DAILY 09/04/19 02/23/22 gabapentin 100 mg capsule 100 mg PO TID 07/29/20 02/23/22 gabapentin 600 mg tablet 600 mg PO TID 07/30/20 02/23/22 insulin detemir U-100 100 unit/mL 30 unit subcut QAM 03/26/21 02/23/22 (3 mL) subcutaneous pen tramadol 50 mg tablet 50 mg PO DAILY 08/07/21 02/23/22 diclofenac sodium 1 % topical gel 2 g topical QID 01/22/22 02/23/22 (Arthritis Pain (diclofenac)) fluticasone 100 mcg-salmeterol 50 1 inh inhalation BID 01/22/22 02/23/22 mcg/dose blistr powdr for inhalation (Advair Diskus) omeprazole 20 mg capsule,delayed 20 mg PO DAILY 01/22/22 02/23/22 release levetiracetam 250 mg tablet 250 mg PO BID 02/12/22 02/23/22 Allergies Allergy/AdvReac Type Severity Reaction Status Date / Time Penicillins Allergy Intermediate Hives Verified 02/23/22 20:30 sulfasalazine Allergy Unknown Verified 02/23/22 20:30 quinine AdvReac Severe Thrombocyto Verified 02/23/22 20:30 penia erythromycin base AdvReac Intermediate VOMITING Verified 02/23/22 20:30 hydroxychloroquine sulfate AdvReac Intermediate VOMITING Verified 02/23/22 20:30 [From Plaquenil] amoxicillin AdvReac Hives Verified 02/23/22 20:31 General Stated Complaint: GenMedical KODY: 4 Review of Systems Constitutional Constitutional: Reports as per HPI and Denies fever(s) ENT Ears, Nose, Mouth, and Throat: Denies dizziness Cardiovascular Cardiovascular: Reports as per HPI, Denies chest pain, Denies syncope and Denies dyspnea Respiratory Respiratory: Reports as per HPI, Denies cough and Denies dyspnea Gastrointestinal Gastrointestinal: Reports as per HPI Musculoskeletal Musculoskeletal: Reports as per HPI and Denies back pain Integumentary/Breasts Skin/Breast: Reports as per HPI and Denies rash Neurologic Neurologic: Reports as per HPI, Denies dizziness and Denies syncope PFSH All Active Problems (Updated 02/23/22 @ 21:11 by SHARITA Hutchison) Bleeding external hemorrhoids (Acute) Varices of other sites (Acute) Cirrhosis of liver (Acute) DJD (degenerative joint disease) (Chronic) Thrombocytopenia (Chronic) Seizure disorder (Chronic) Low blood pressure (Acute) Vitreous degeneration (Acute) Abnormal laboratory test (Acute) Paresthesia of both hands (Acute) Lumbar spondylolysis (Acute) Difficulty swallowing (Acute) Word finding difficulty (Acute) Squamous cell carcinoma of vulva (Acute) Vulvar lesion (Acute) Orthostatic hypotension (Acute) Vertigo (Acute) Peripheral neuropathy (Acute) Mild cognitive impairment (Acute) Diabetic autonomic neuropathy associated with type 2 diabetes mellitus (Acute 11/04/16) Gait instability (Acute 05/03/17) Lichen sclerosus et atrophicus of the vulva (Acute 01/01/17) Rx for Clobetasol. Pt did not refill after intial Rx ran out. 06/2017 Recommended that she have PCP refill Rx for [facility]. 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 Chronic idiopathic thrombocytopenia Chronic periodontitis Closed head injury Cough Decreased strength Diabetes mellitus Diabetic neuropathy Dizziness Dysosmia Essential hypertension Frequent falls Generalized anxiety disorder Hand paresthesia Hemorrhoids History of anemia History of closed head injury HTN (hypertension) Hx of head injury Hyperlipidemia Hypomagnesemia Hypothyroidism Knee pain, left Left leg weakness Left-sided chest pain Long-term use of high-risk medication Lumbar spondylitis Memory impairment Muscle spasm Neuropathy Osteopenia Osteoporosis Other specified disorders of bone density and structure, other site Partial seizure disorder 2+ years ago Premature menopause Psoriasis Psoriatic arthritis Rheumatoid arthritis SCC (squamous cell carcinoma) Shoulder pain, right SOB (shortness of breath) Social anxiety disorder Spinal stenosis Spinal stenosis in cervical region Transient global amnesia 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 Unsteadiness on feet Urinary frequency UTI (urinary tract infection) Vaginal adhesion Vaginal atrophy Vitreous degeneration, bilateral Surgical History (Updated 01/22/22 @ 15:33 by Yesenia Davies) H/O cystoscopy H/O endoscopy History of tubal ligation Hx of cataract surgery S/P appendectomy S/P cervical discectomy S/P tubal ligation Family History Brother Parkinson disease Sister Multiple sclerosis Mother Heart disease Brother Heart disease Other Diabetes Social History Smoking/Tobacco Use Status: Never Smoking risk assessment performed?: Yes Alcohol Intake: current Alcohol Intake frequency: holidays/special occasions only Drug use: Never Substance use type: does not use Household members: spouse Number of Children: 3 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; 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 What is your relationship status?: Panel score (0-1 are the most socially isolated patients): 1 Seatbelt use: always Do you feel safe at home: Yes Do you feel safe in your relationship?: Yes Female Reproductive History Menstrual Menopause type: natural History History 3 Para Hx # Term Pregnancies 3 Multiple births Hx # Pregnancies Ectopic pregnancies AB induced Hx Number of Living Children AB spontaneous Exam Const General: cooperative, healthy appearing, comfortable, no acute distress and well developed Nutritional Appearance: average body habitus and well nourished Orientation: alert and awake HENMT Head: normal to inspection Mouth: moist mucous membranes Resp Effort & Inspection: normal respiratory effort, able to speak in complete sentences and no respiratory distress Auscultation: clear to auscultation bilaterally, no rales, no rhonchi and no wheezes Cardio Rate: regular rate Rhythm: regular rhythm Heart Sounds: S1 normal and S2 normal GI Rectal Exam - female: normal sphincter tone, No abnormal stool, No fecal impaction, No fissure, hemorrhoids (2 external hemorrhoids noted, one with defect and surrounding dried blood) and No tenderness Back/Spine/Pelvis Back: no CVA tenderness Skin General skin exam: no rashes or lesions noted Trauma: no lacerations or abrasions Neuro General: patient alert and patient awake Cognition: normal cognition Speech: speech normal Gait: normal gait Psych Appearance: grossly normal and well kempt Mental Status: mental status grossly normal Speech and Movement: speech and movement normal Course Vital Signs Vital signs: Vital Signs Temperature 36.6 C 02/23/22 20:19 Pulse 94 H 02/23/22 20:19 Respiratory Rate 14 02/23/22 20:19 Blood Pressure 144/77 H 02/23/22 20:19 Pulse Oximetry 98 02/23/22 20:19 Temperature 36.6 C 02/23/22 20:19 Temperature Source Oral 02/23/22 20:19 Pulse 94 H 02/23/22 20:19 Respiratory Rate 14 02/23/22 20:19 Respiratory Effort 02/23/22 20:38 Respiratory Depth Normal 02/23/22 20:38 Respiratory Pattern Normal 02/23/22 20:38 Blood Pressure 144/77 H 02/23/22 20:19 Blood Pressure Position Sitting 02/23/22 20:19 Pulse Oximetry 98 02/23/22 20:19 Oxygen Delivery Method Room Air 02/23/22 20:19 Oxygen Flow Rate 0 02/23/22 20:19 Pain Level 0 02/23/22 20:19
== END 2022-02-23 21:25 | disposition home or self-care (01) ==
PROVIDERS: Emergency Provider Physician Assistant; PCP Nurse Practitioner Family
DX: K64.4 Residual hemorrhoidal skin tags (principal)
CPT/HCPCS: 99283

== ENCOUNTER 2022-05-19 17:17 | Outpatient (REF) | payer MEDICARE, SELFPAY ==
[2022-05-19 16:26] LABS: Hemoglobin A1C 8.3 % (<5.7)
[2022-05-19 17:33] LABS: Anion Gap 10.7 mmol/L (3-11); BUN 15 mg/dL (7-18); CO2 26.3 mmol/L (21.0-32.0); Calcium 9.2 mg/dL (8.5-10.1); Chloride 107 mmol/L (98-107); Estimated GFR 59.49 (mL/min/1.73m2); Glucose 214 mg/dL (74-106); Potassium 4.2 mmol/L (3.5-5.1); Sodium 144 mmol/L (136-145)
== END 2022-05-19 17:18 | disposition home or self-care (01) ==
LOC: NCHCN 17:17
PROVIDERS: PCP Nurse Practitioner Family; Visit Provider Nurse Practitioner Family
DX: E11.40 Type 2 diabetes mellitus with diabetic neuropathy, unspecified (principal); M48.00 Spinal stenosis, site unspecified; M47.816 Spondylosis without myelopathy or radiculopathy, lumbar region; M25.562 Pain in left knee; G83.10 Monoplegia of lower limb affecting unspecified side
CPT/HCPCS: 80048; 83036

== ENCOUNTER → 2022-07-07 09:19 | Outpatient (BNVA) | payer MEDICARE, SELFPAY | PROVIDERS: PCP Nurse Practitioner Family; Referring Provider Nurse Practitioner Family; Visit Provider Surgery | DX: R13.10 Dysphagia, unspecified (principal); K74.60 Unspecified cirrhosis of liver | CPT/HCPCS: 99212; 99214 ==

== ENCOUNTER 2022-07-08 11:41 | Outpatient (CLI) | payer MEDICARE, SELFPAY ==
[2022-07-08 15:43] LABS: ALT 18 U/L (14-59); AST 17 U/L (15-37); Albumin 3.7 g/dL (3.4-5.0); Alkaline Phosphatase 67 U/L (46-116); Anion Gap 4.9 mmol/L (3-11); BUN 13 mg/dL (7-18); Bilirubin, Total 0.5 mg/dL (0.2-1.0); CO2 30.1 mmol/L (21.0-32.0); CREATININE 0.9 mg/dL (0.55-1.02); Calcium 9.9 mg/dL (8.5-10.1); Chloride 102 mmol/L (98-107); GGT 19 U/L (5-55); Glucose 260 mg/dL (74-106); PHOSPHORUS 4.1 mg/dL (2.6-4.7); Potassium 3.9 mmol/L (3.5-5.1); Sodium 137 mmol/L (136-145); TSH 0.72 uIU/mL (0.36-3.74); Total Protein 8.6 g/dL (6.4-8.2)
[2022-07-12 13:18] LABS: Fructosamine 443 mcmol/L (200 - 285)
== END 2022-07-08 11:42 | disposition home or self-care (01) ==
LOC: LBO 11:58
PROVIDERS: PCP Nurse Practitioner Family; Visit Provider Internal Medicine Endocrinology, Diabetes & Metabolism
DX: E03.9 Hypothyroidism, unspecified (principal); E11.65 Type 2 diabetes mellitus with hyperglycemia; M81.0 Age-related osteoporosis without current pathological fracture; K74.60 Unspecified cirrhosis of liver
CPT/HCPCS: 36415; 80053; 82523; 82977; 82985; 84100; 84443

== ENCOUNTER 2022-07-17 15:11 | Inpatient (IN) | payer MEDICARE, SELFPAY ==
[2022-07-17] VITALS (23 sets, daily range): BP systolic 100–128; BP diastolic 52–63; PULSE 93–117; RESP 16–28; TEMP 37.2–39.8; O2SAT 93–96
--- NOTE | 2022-07-17 15:15 | RT.EKG_ITS ---
APPROVED REPORT Exam: Resting ECG Reason for Exam: dizzines Patient Location: E HR:113 bpm ECG Measurements Heart Rate 113 AXIS NC 173 P -11 QRSd 82 QRS -28 QT 316 T -18 QTc 433 Conclusion Sinus tachycardia...rate> 99 Left ventricular hypertrophy...multiple voltage criteria Narrow complex sinus tachycardia at a rate of 113. Left axis deviation LVH based on voltage criteria in aVL. No ST segment abnormalities. T wave inversion in lead III. New compared to prior. Prior dated last year. No QRS complexes in lead II.
[2022-07-17 16:03] LABS: Absolute Eosinophil Count 0.05 10^3/uL (0.0-0.7); Eosinophils % 0.4; MCV 77 fL (80-95)
[2022-07-17 16:12] LABS: Ammonia < 10 umol/L (11-32)
[2022-07-17 16:18] LABS: ALT 18 U/L (14-59); AST 20 U/L (15-37); Alkaline Phosphatase 74 U/L (46-116); Anion Gap 12.6 mmol/L (3-11); BUN 18 mg/dL (7-18); Bilirubin, Total 0.8 mg/dL (0.2-1.0); CO2 23.4 mmol/L (21.0-32.0); CREATININE 1.2 mg/dL (0.55-1.02); Calcium 9.2 mg/dL (8.5-10.1); Chloride 100 mmol/L (98-107); Glucose 252 mg/dL (74-106); Magnesium 1.5 mg/dL (1.8-2.4); Potassium 4.1 mmol/L (3.5-5.1); Sodium 136 mmol/L (136-145); Total Protein 9.3 g/dL (6.4-8.2); Troponin I < 50 ng/L (<or=60)
[2022-07-17 16:26] LABS: TSH 0.39 uIU/mL (0.36-3.74)
[2022-07-17 16:46] LABS: Abs Immature Grans 0.09 10^3/uL (0.0-0.06); Absolute Basophil Count 0.04 10^3/uL (0.0-0.2); Absolute Lymphocyte Count 1.15 10^3/uL (1.2-3.4); Basophils % 0.3; HGB 10.2 g/dL (11.2-15.7); Immature Grans % 0.7; Lymphocytes % 8.6; MCH 23.7 pg (27.0-33.0); MCHC 30.9 % (32.0-36.0); MPV 10.2 fL (8.0-11.0); Platelet Count 106 10^3/uL (130-400); RBC 4.31 10^6/uL (3.93-5.22); RDW 16.8 % (11.7-14.6); RDW-SD 45.9 fL; WBC 13.35 10^3/uL (4.4-10.8)
[2022-07-17 16:47] LABS: Absolute Neutrophil Count 11.21 10^3/uL (1.2-6.7)
--- NOTE | 2022-07-17 16:57 | DI.RAD_ITS ---
Exam(s) XR CHEST 2V PA LATERAL EXAM: XR CHEST 2V PA LATERAL CLINICAL HISTORY: altered mental status. TECHNIQUE: 2D digital imaging was performed. COMPARISON: CT CT ABDOMEN PELVIS W from 10/17/2021 FINDINGS: 2 views: Mislabeled Heart size is normal. The mediastinum is not widened. Lungs are clear. No infiltrates nor pleural effusions. IMPRESSION: No acute pulmonary findings. DATA REPOSITORY: RADIATION DOSE DELIVERED:
[2022-07-17] MEDS: Normal Saline 1,000 ML 1000 ML IV ×2 (16:58→18:44)
--- NOTE | 2022-07-17 17:15 | DI.VRAD_ITS ---
PROCEDURE INFORMATION: Exam: XR Chest Exam date and time: 07/17/2022 4:27 PM Age: 72 years old Clinical indication: Other: Altered mental status TECHNIQUE: Imaging protocol: Radiologic exam of the chest. Views: 2 views. COMPARISON: CT CHEST W 01/06/2019 11:21 AM FINDINGS: Tubes, catheters and devices: There are electrocardiographic leads on the thorax. . Lungs: Lungs are normally aerated. Examination negative for airspace disease or pulmonary edema. Pleural spaces: Unremarkable. No pleural effusion. No pneumothorax. Heart/Mediastinum: The heart is borderline enlarged and has a ventricular configuration. The aorta is normal in diameter Bones/joints: Unremarkable. IMPRESSION: No acute cardiopulmonary disease. Dictated and Authenticated by: Vicente Sprague MD. Ordering:MINERVA Bowen MD
--- NOTE | 2022-07-17 17:40 | W.ED.GENAD ---
Discharge Plan Disposition Patient Disposition: Admit to [facility] Condition: Stable Discharge Details Clinical Impression: Altered mental status, Acute UTI Admit Date/Time: 07/17/22 19:25 Admit Provider: Mamadou Tran Attending Provider: Mamadou Tran Primary Care Provider: Maricarmen Galvan ED Provider: Jessi Rivero Discharge Data Discharge Date/Time-TO BE ENTERED AT DEPARTURE: 07/17/22 21:08 HPI <Jessi Rivero NP - Last Filed: 07/17/22 19:00> General Mode of arrival: ambulatory. Date/Time Provider Initiated Documentation: 07/17/22 15:12. Limitations to Documentation: altered mental status. Information obtained by: family (.). HPI Narrative: This is a 72-year-old female patient followed by palliative medicine with a complex medical history including cirrhosis of the liver seizure disorder, diabetes mellitus type 2 cognitive impairment who was reportedly in her usual state of health when noted today blood sugars to be poorly controlled and altered mental status. He noted that she was weak and unable to ambulate unassisted or get up. He states she has had no cough no fever no vomiting states he believes her bowels and bladders have been functioning normally her p.o. intake today has been poor. He denies any rashes or lesions. This been no sick contacts with similar symptoms. Related Data Home Medications Medication Instructions Recorded Confirmed lovastatin 40 mg tablet 40 mg PO DAILY 05/16/13 11/13/22 Freestyle Glucometer 05/22/14 11/13/22 aspirin 81 mg chewable tablet 81 mg PO DAILY 05/22/14 11/13/22 (Aspirin Low-Strength) levothyroxine 75 mcg tablet 75 mcg PO DAILY 05/22/14 11/13/22 (Levoxyl) blood sugar diagnostic (FreeStyle 06/12/14 11/13/22 Lite Strips) calcium carbonate 500 mg-vitamin 1 ea PO DAILY 09/02/16 11/13/22 D3 10 mcg (400 unit) tablet (Calcium 500 + D) cholecalciferol (vitamin D3) 25 1,000 unit PO DAILY 10/01/16 11/13/22 mcg (1,000 unit) capsule albuterol sulfate 90 mcg/actuation 2 puff inhalation QID 06/08/18 11/13/22 aerosol inhaler (ProAir HFA) nitroglycerin 0.4 mg sublingual 0.4 mg sublingual Q5-15M PRN 06/08/18 11/13/22 tablet (Nitrostat) magnesium chloride 64 mg 64 mg PO BID 10/19/18 11/13/22 tablet,extended release simethicone 125 mg capsule (Gas 125 mg PO BID-QID PRN 10/19/18 11/13/22 Relief Extra Strength) paroxetine HCl 20 mg tablet (Paxil) 20 mg PO DAILY 09/04/19 11/13/22 gabapentin 600 mg tablet 600 mg PO TID 07/30/20 11/13/22 diclofenac sodium 1 % topical gel 2 g topical QID 01/22/22 11/13/22 (Arthritis Pain (diclofenac)) tramadol 50 mg tablet 50 mg PO DAILY 07/03/22 11/13/22 acetaminophen 325 mg capsule 650 mg PO Q6H PRN 11/13/22 11/13/22 canagliflozin 100 mg tablet 100 mg PO DAILY 11/13/22 11/13/22 duloxetine 30 mg capsule,delayed 30 mg PO DAILY 11/13/22 11/13/22 release famotidine 40 mg tablet (Pepcid) 40 mg PO BID 11/13/22 11/13/22 insulin detemir U-100 100 unit/mL See Rx Instructions subcut .COMPLEX 11/13/22 11/13/22 (3 mL) subcutaneous pen metformin 500 mg tablet 1,000 mg PO BID 11/13/22 11/13/22 trazodone 50 mg tablet 25 mg PO DAILY 11/13/22 11/13/22 carbidopa 25 mg-levodopa 100 mg 1 tab PO TID 02/09/23 tablet (Sinemet) cefpodoxime 200 mg tablet 200 mg PO BID 02/09/23 fluticasone propionate 110 2 puff inhalation BID 02/09/23 mcg/actuation HFA aerosol inhaler (Flovent HFA) fluticasone propionate 50 2 inh inhalation DAILY 02/09/23 mcg/actuation blister powder for inhalation Allergies Allergy/AdvReac Type Severity Reaction Status Date / Time Penicillins Allergy Intermediate Hives Verified 02/09/23 09:43 sulfasalazine Allergy Unknown Verified 02/09/23 09:43 amoxicillin Allergy Hives Verified 02/09/23 09:43 quinine AdvReac Severe Thrombocyto Verified 02/09/23 09:43 penia erythromycin base AdvReac Intermediate VOMITING Verified 02/09/23 09:43 hydroxychloroquine sulfate AdvReac Intermediate VOMITING Verified 02/09/23 09:43 [From Plaquenil] General Stated Complaint: Dizzy/Sync KODY: 3 Review of Systems <Jessi Rivero NP - Last Filed: 07/17/22 19:00> Unobtainable due to mental status (obtained from ) Exam <Jessi Rivero NP - Last Filed: 07/17/22 19:00> Const General: comfortable, no acute distress and frail appearing Nutritional Appearance: average body habitus Orientation: confused (not following commands) HENMT Head: normal to inspection and normocephalic Mouth: moist mucous membranes abnormal (dry) Neck Neck: normal visual inspection Resp Effort & Inspection: normal respiratory effort Auscultation: clear to auscultation bilaterally Cardio Rate: regular rate Rhythm: regular rhythm GI Inspection: normal to inspection Palpation: soft Skin General skin exam: no rashes or lesions noted Neuro General: patient confused Extrem General: no pedal edema Psych Appearance: grossly normal Mental Status: other Mood: other Affect: blunted Course <Jessi Rivero NP - Last Filed: 07/17/22 19:00> Vital Signs Vital signs: Vital Signs Temperature 37.2 C 07/17/22 15:13 Pulse 117 H 07/17/22 15:13 Respiratory Rate 17 07/17/22 15:13 Blood Pressure 100/52 L 07/17/22 15:13 Pulse Oximetry 96 07/17/22 15:13 Temperature 39.3 C H 07/17/22 17:37 Temperature Source Rectal 07/17/22 17:37 Pulse 109 H 07/17/22 17:33 Respiratory Rate 26 H 07/17/22 17:33 Respiratory Effort Normal 07/17/22 15:19 Blood Pressure 107/58 L 07/17/22 17:33 Blood Pressure Position Sitting 07/17/22 15:13 Pulse Oximetry 94 07/17/22 17:33 Oxygen Delivery Method Room Air 07/17/22 17:33 Oxygen Flow Rate 0 07/17/22 17:33 Pain Level 0 07/17/22 15:13 Lab/Test Results Lab/Test Results: Laboratory Tests Range/Units 07/17/22 07/17/22 07/17/22 15:50 15:50 15:50 WBC (4.4-10.8) 10^3/uL 13.35 H RBC (3.93-5.22) 10^6/uL 4.31 Hgb (11.2-15.7) g/dL 10.2 L Hct (36.0-46.0) % 33.0 L MCV (80-95) fL 77 L MCH (27.0-33.0) pg 23.7 L MCHC (32.0-36.0) % 30.9 L RDW (11.7-14.6) % 16.8 H Plt Count (130-400) 10^3/uL 106 L MPV (8.0-11.0) fL 10.2 Immature Gran % 0.7 Neutrophils % 84.0 Lymphocytes % 8.6 Monocytes % 6.0 Eosinophils % 0.4 Basophils % 0.3 Nucleated RBC % (0.0-0.3) % 0.0 Absolute Neutrophils (1.2-6.7) 10^3/uL 11.21 H Absolute Lymphocytes (1.2-3.4) 10^3/uL 1.15 L Absolute Monocytes (0.1-0.8) 10^3/uL 0.80 Absolute Eosinophils (0.0-0.7) 10^3/uL 0.05 Absolute Basophils (0.0-0.2) 10^3/uL 0.04 Sodium (136-145) mmol/L 136 Potassium (3.5-5.1) mmol/L 4.1 Chloride (98-107) mmol/L 100 Carbon Dioxide (21.0-32.0) mmol/L 23.4 Anion Gap (3-11) mmol/L 12.6 H BUN (7-18) mg/dL 18 Creatinine (0.55-1.02) mg/dL 1.2 H Est GFR (CKD-EPI 2020) (mL/min/1.73m2) 47.80 Glucose (74-106) mg/dL 252 H Calcium (8.5-10.1) mg/dL 9.2 Magnesium (1.8-2.4) mg/dL 1.5 L Total Bilirubin (0.2-1.0) mg/dL 0.8 AST (15-37) U/L 20 ALT (14-59) U/L 18 Alkaline Phosphatase (46-116) U/L 74 Ammonia (11-32) umol/L Troponin I (<or=60) ng/L < 50 Total Protein (6.4-8.2) g/dL 9.3 H Albumin (3.4-5.0) g/dL 4.0 TSH (0.36-3.74) uIU/mL 0.39 Range/Units 07/17/22 15:50 WBC (4.4-10.8) 10^3/uL RBC (3.93-5.22) 10^6/uL Hgb (11.2-15.7) g/dL Hct (36.0-46.0) % MCV (80-95) fL MCH (27.0-33.0) pg MCHC (32.0-36.0) % RDW (11.7-14.6) % Plt Count (130-400) 10^3/uL MPV (8.0-11.0) fL Immature Gran % Neutrophils % Lymphocytes % Monocytes % Eosinophils % Basophils % Nucleated RBC % (0.0-0.3) % Absolute Neutrophils (1.2-6.7) 10^3/uL Absolute Lymphocytes (1.2-3.4) 10^3/uL Absolute Monocytes (0.1-0.8) 10^3/uL Absolute Eosinophils (0.0-0.7) 10^3/uL Absolute Basophils (0.0-0.2) 10^3/uL Sodium (136-145) mmol/L Potassium (3.5-5.1) mmol/L Chloride (98-107) mmol/L Carbon Dioxide (21.0-32.0) mmol/L Anion Gap (3-11) mmol/L BUN (7-18) mg/dL Creatinine (0.55-1.02) mg/dL Est GFR (CKD-EPI 2020) (mL/min/1.73m2) Glucose (74-106) mg/dL Calcium (8.5-10.1) mg/dL Magnesium (1.8-2.4) mg/dL Total Bilirubin (0.2-1.0) mg/dL AST (15-37) U/L ALT (14-59) U/L Alkaline Phosphatase (46-116) U/L Ammonia (11-32) umol/L < 10 L Troponin I (<or=60) ng/L Total Protein (6.4-8.2) g/dL Albumin (3.4-5.0) g/dL TSH (0.36-3.74) uIU/mL Medical Decision Making <Jessi Rviero ADMINISTRATIVE INTERN - Last Filed: 07/17/22 19:00> 72-year-old chronically ill female diabetic presents with altered mental status and elevated blood sugars in the 200s. Will obtain IV access give 1 L of normal saline and obtain routine labs to rule out source of infection. With no obvious source highly suspect UTI. Patient did become febrile with a temp of 39.8. She was given acetaminophen 1000 mg IV push as she is not awake enough to take p.o. Blood cultures and lactic acid have been added. Urine source. will give ceftriaxone 2 gm IVPB while awaiting culture report. hospitalist services contacted for admission Medical Records Medical records reviewed: Yes I reviewed the patient's medical records. Lab Data Lab results reviewed: Yes I reviewed the patient's lab results. Lab results narrative: Laboratory Results - last 24 hr 07/17/22 07/17/22 07/17/22 15:50 15:50 15:50 WBC 13.35 H RBC 4.31 Hgb 10.2 L Hct 33.0 L MCV 77 L MCH 23.7 L MCHC 30.9 L RDW 16.8 H Plt Count 106 L MPV 10.2 Immature Gran % 0.7 Neutrophils % 84.0 Lymphocytes % 8.6 Monocytes % 6.0 Eosinophils % 0.4 Basophils % 0.3 Nucleated RBC % 0.0 Absolute Neutrophils 11.21 H Absolute Lymphocytes 1.15 L Absolute Monocytes 0.80 Absolute Eosinophils 0.05 Absolute Basophils 0.04 Sodium 136 Potassium 4.1 Chloride 100 Carbon Dioxide 23.4 Anion Gap 12.6 H BUN 18 Creatinine 1.2 H Est GFR (CKD-EPI 2020) 47.80 Glucose 252 H Calcium 9.2 Magnesium 1.5 L Total Bilirubin 0.8 AST 20 ALT 18 Alkaline Phosphatase 74 Ammonia Troponin I < 50 Total Protein 9.3 H Albumin 4.0 Procalcitonin TSH 0.39 Urine Color Urine Clarity Urine pH Ur Specific [place] Urine Protein Urine Ketones Urine Blood Urine Nitrite Urine Bilirubin Urine Urobilinogen Ur Leukocyte Esterase Urine RBC Urine WBC Ur Epithelial Cells Urine Crystals Urine Bacteria Urine Mucus Ur Culture Indicated? Urine Glucose 07/17/22 07/17/22 07/17/22 15:50 15:50 18:12 WBC RBC Hgb Hct MCV MCH MCHC RDW Plt Count MPV Immature Gran % Neutrophils % Lymphocytes % Monocytes % Eosinophils % Basophils % Nucleated RBC % Absolute Neutrophils Absolute Lymphocytes Absolute Monocytes Absolute Eosinophils Absolute Basophils Sodium Potassium Chloride Carbon Dioxide Anion Gap BUN Creatinine Est GFR (CKD-EPI 2020) Glucose Calcium Magnesium Total Bilirubin AST ALT Alkaline Phosphatase Ammonia < 10 L Troponin I Total Protein Albumin Procalcitonin 0.1 TSH Urine Color Yellow Urine Clarity Cloudy Urine pH 5.5 Ur Specific [place] 1.020 Urine Protein 30 H Urine Ketones Negative Urine Blood Small H Urine Nitrite Positive H Urine Bilirubin Negative Urine Urobilinogen 0.2 Ur Leukocyte Esterase Moderate H Urine RBC Not Applicable Urine WBC >50 H Ur Epithelial Cells Not Applicable Urine Crystals Not Applicable Urine Bacteria Many Urine Mucus Not Applicable Ur Culture Indicated? Yes Urine Glucose 250 H <Mamadou Tolentino MD - Last Filed: 05/25/23 01:18> Medical Records Medical records narrative: I did not see this patient nor participate in her care. Mamadou Tolentino MD [facility] <Jessi Rivero NP - Last Filed: 07/17/22 19:00> All Active Problems (Updated 02/09/23 @ 09:42 by Delano Whitlock RN) Iron deficiency anemia (Acute) GERD (gastroesophageal reflux disease) (Chronic) Diabetic autonomic neuropathy associated with type 2 diabetes mellitus (Acute 11/04/16) Gait instability (Acute 05/03/17) Lichen sclerosus et atrophicus of the vulva (Acute 01/01/17) Rx for Clobetasol. Pt did not refill after intial Rx ran out. 06/2017 Recommended that she have PCP refill Rx for [facility]. Mild neurocognitive disorder (Acute 12/09/16) Seizures (Acute 07/19/14) Episodes transient global amnesia 2011, normal EEG head imaging at that time. Because of possibility of partial seizures, started on seizure medication at that time. Psoriatic arthritis (Acute) Varices of other sites (Acute) Essential tremor (Acute) Globus sensation (Acute) Acquired hypothyroidism (Acute) Mild cognitive impairment (Acute) Peripheral neuropathy (Acute) Vertigo (Acute) Orthostatic hypotension (Acute) Squamous cell carcinoma of vulva (Acute) Word finding difficulty (Acute) Difficulty swallowing (Acute) Lumbar spondylolysis (Acute) Paresthesia of both hands (Acute) Vitreous degeneration (Acute) Low blood pressure (Acute) Seizure disorder (Chronic) Thrombocytopenia (Chronic) DJD (degenerative joint disease) (Chronic) Type 2 diabetes mellitus (Acute) Generalized anxiety disorder (Acute) Chronic pain (Chronic) Prescribed meds from PCP Frail elderly (Acute) Advanced care planning/counseling discussion (Acute) Altered mental status (Acute) Acute UTI (Acute) Medical History (Updated 02/09/23 @ 09:42 by Delano Whitlock RN) Foot pain Parkinson disease Cirrhosis of liver Palliative care encounter Dysosmia Social anxiety disorder Cervical spondylosis HTN (hypertension) Transient global amnesia Long-term use of high-risk medication Shoulder pain, right Psoriasis Ulnar neuropathy Action tremor Dizziness Muscle spasm Left leg weakness Vitreous degeneration, bilateral Cataract, bilateral Other specified disorders of bone density and structure, other site Osteoporosis Unsteadiness on feet Hand paresthesia Left-sided chest pain Hx of head injury Lumbar spondylitis Spinal stenosis UTI (urinary tract infection) Aortic insufficiency SOB (shortness of breath) Frequent falls Anemia Closed head injury Abnormal laboratory test SCC (squamous cell carcinoma) Neuropathy Vulvar lesion Tremor Anxiety Thyroid disease Sore throat Cervicalgia Premature menopause Generalized anxiety disorder Bursitis Osteopenia Candidiasis of vulva and vagina Chronic idiopathic thrombocytopenia 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 states she has seizure 3 years ago Cough Ulnar neuropathy at elbow Knee pain, left Chronic periodontitis History of anemia Balance problem uses cane Vaginal adhesion Hypomagnesemia Urinary frequency Hemorrhoids Decreased strength Hypothyroidism Hyperlipidemia Diabetes mellitus Diabetic neuropathy Spinal stenosis in cervical region Rheumatoid arthritis Essential hypertension Surgical History History of tubal ligation H/O endoscopy H/O cystoscopy Hx of cataract surgery S/P appendectomy S/P tubal ligation S/P cervical discectomy Family History Brother Parkinson disease Sister Multiple sclerosis Mother Heart disease Brother Heart disease Other Diabetes Social History Smoking/Tobacco Use Status: Never Smoking risk assessment performed?: Yes Alcohol Intake: never Drug use: Never Substance use type: does not use Household members: spouse Number of Children: 3 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
[2022-07-17 17:46] LABS: Procalcitonin 0.1 ng/mL
[2022-07-17 18:16] LABS: Bilirubin Negative (Negative); Blood Small (Negative); Clarity Cloudy (Clear); Glucose 250 mg/dL (Negative); Ketones Negative (Negative); Leukocyte Esterase Moderate (Negative); Nitrite Positive (Negative); Urobilinogen 0.2 mg/dL (Up to 0.2); pH 5.5 (5-8)
[2022-07-17 18:32] LABS: Bacteria Many HPF (Negative); C & S Indicated? Yes; WBC >50 HPF (0-5)
[2022-07-17] MEDS: ACETAMINOPHEN 1,000 MG/100 ML BTL 400 MG IVPB (18:43)
[2022-07-17] MEDS: MAGNESIUM SULFATE 2 GM/50 ML BAG IVPB (18:43)
[2022-07-17 19:11] LABS: Lactate 1.6 mmol/L (0.6-1.4)
[2022-07-17] MEDS: cefTRIAXone 2 GM/50 ML BAG IVPB (20:03)
--- NOTE | 2022-07-17 21:27 | HPE_ITS ---
Date of service: 07/17/22 Time of Service: 22:07 Assessment and Plan Assessment and plan (1) Acute UTI: Status: Acute Assessment and plan: WBC elevation in blood and WBC in the urine both suggest this is truly an acute UTI, which is likely the cause of the acute general weakness and mental status change. She had signs of early sepsis on admission with fever, elevated WBC, tachycardia, and mild lactate elevation. I agree with cephtriaxone (PCN allergy but she tolerates this). (2) Type 2 diabetes mellitus: Status: Acute Assessment and plan: A1c 8.3 in April, will repeat with morning labs. Continue out patient medicaitons (even metformin okay at this GFR) sliding scale prn (3) Cirrhosis of liver: Status: Acute Assessment and plan: Compensated with a Child [place] Wallace score of 6. Monitor (4) Seizures: Status: Acute Assessment and plan: I don't think this is related to her presentaiton. It isn't clear she is having actual seizures. (5) Anemia: Assessment and plan: previously decumentation showed iron deficiu. COntinues with microcytic anemia. She has EGD scheduled , consider colonsocpy as well if none recent. (6) Hypomagnesemia: Assessment and plan: Replaced 2 grams in ED, follow in the morning (7) Acquired hypothyroidism: Status: Acute Assessment and plan: TSH wnl, though running slightly low for age. COuld consider cutting dose of f/u with PCP (8) DVT prophylaxis: Status: Acute Assessment and plan: LMWH as she is minimally mobile (9) Discharge planning issues: Status: Acute Assessment and plan: She can go home to finish a course of antibiotcs when she is improving and taking oral medication. History of Present Illness History of Present Illness Chief Complaint: mental status depression, fever Narrative: 72 yo F with history of type 2 DM with A1c 8.3%, compesated hepatic cirrhosis, and mild cognitive impairment who was brought in by her after he found her confused and later febrile. She states she was feeling a little bit tired and dizzy starting yesterday. Her stated he couldn't get her off the couch this afternoon. She has not had any respiratory symptoms, abdominal pain, or bowel changes. She has not changed her medication recently. She does note urinary frequency but no pain. Upon arrival to the emergency room she was febrile to 39.8. Review of Systems Constitutional Constitutional: Reports anorexia, Denies chills, Reports daytime sleepiness, Reports fatigue, Denies headache(s), Reports lethargy, Denies weakness and Denies weight loss Eyes Eyes: Denies change in vision and Denies irritation ENT Ears, Nose, Mouth, and Throat: Reports dysphagia (has EGD pending), Denies vertigo, Denies otalgia, Denies headache(s), Denies mouth lesions, Denies nasal congestion, Denies nasal discharge and Denies sore throat Cardiovascular Cardiovascular: Denies chest pain, Denies leg edema, Denies palpitations and Denies orthopnea Respiratory Respiratory: Denies cough, Denies excessive phlegm production and Denies whee zing Gastrointestinal Gastrointestinal: Denies abdominal pain, Denies melena, Denies hematochezia, Denies change in bowel habits, Reports constipation (when taking iron), Reports dysphagia (has EGD pending), Denies heartburn, Denies diarrhea, Denies nausea and Denies vomiting Genitourinary Genitourinary: Denies hematuria, Denies dysuria and Denies urinary incontinence Integumentary/Breasts Skin/Breast: Denies rash and Denies skin ulcer Neurologic Neurologic: Denies vertigo, Denies headache(s), Reports memory loss, Denies sensory deficit and Denies weakness Comments: she states she is having a lot of seizures, which she describes as shaking with no LOC. 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 Psychiatric Psychiatric: Reports memory loss and Denies mood swings Endocrine Endocrine: Reports fatigue and Denies palpitations Hematologic/Lymphatic Hematologic/Lymphatic: Denies easy bleeding Allergic/Immunologic Allergic/Immunologic: Denies wheezing PFSH All Active Problems Discharge planning issues (Acute) DVT prophylaxis (Acute) Altered mental status (Acute) Acute UTI (Acute) Advanced care planning/counseling discussion (Acute) Frail elderly (Acute) Chronic pain (Chronic) Prescribed meds from PCP Generalized anxiety disorder (Acute) Type 2 diabetes mellitus (Acute) Psoriatic arthritis (Acute) Palliative care encounter (Acute) Varices of other sites (Acute) Cirrhosis of liver (Acute) DJD (degenerative joint disease) (Chronic) Thrombocytopenia (Chronic) Seizure disorder (Chronic) Low blood pressure (Acute) Vitreous degeneration (Acute) Paresthesia of both hands (Acute) Lumbar spondylolysis (Acute) Difficulty swallowing (Acute) Word finding difficulty (Acute) Squamous cell carcinoma of vulva (Acute) Orthostatic hypotension (Acute) Vertigo (Acute) Peripheral neuropathy (Acute) Mild cognitive impairment (Acute) Diabetic autonomic neuropathy associated with type 2 diabetes mellitus (Acute 11/04/16) Gait instability (Acute 05/03/17) Lichen sclerosus et atrophicus of the vulva (Acute 01/01/17) Rx for Clobetasol. Pt did not refill after intial Rx ran out. 06/2017 Recommended that she have PCP refill Rx for [facility]. Mild neurocognitive disorder (Acute 12/09/16) Seizures (Acute 07/19/14) Episodes transient global amnesia 2011, normal EEG head imaging at that time. Because of possibility of partial seizures, started on seizure medication at that time. 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 Chronic idiopathic thrombocytopenia Chronic periodontitis Closed head injury Cough Decreased strength Diabetes mellitus Diabetic neuropathy Dizziness Dysosmia Essential hypertension Frequent falls Generalized anxiety disorder Hand paresthesia Hemorrhoids History of anemia History of closed head injury HTN (hypertension) Hx of head injury Hyperlipidemia Hypomagnesemia Hypothyroidism Knee pain, left Left leg weakness Left-sided chest pain Long-term use of high-risk medication Lumbar spondylitis Memory impairment Muscle spasm Neuropathy Osteopenia Osteoporosis Other specified disorders of bone density and structure, other site Partial seizure disorder 2+ years ago Premature menopause Psoriasis Rheumatoid arthritis SCC (squamous cell carcinoma) Shoulder pain, right SOB (shortness of breath) Social anxiety disorder Sore throat Spinal stenosis Spinal stenosis in cervical region Thyroid disease Transient global amnesia Tremor 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 Unsteadiness on feet Urinary frequency UTI (urinary tract infection) Vaginal adhesion Vaginal atrophy Vitreous degeneration, bilateral Vulvar lesion Surgical History H/O cystoscopy H/O endoscopy History of tubal ligation Hx of cataract surgery S/P appendectomy S/P cervical discectomy S/P tubal ligation Family History Brother Parkinson disease Sister Multiple sclerosis Mother Heart disease Brother Heart disease Other Diabetes Social History (Updated 07/17/22 @ 22:13 by Mamadou Tran) Smoking/Tobacco Use Status: Never Smoking risk assessment performed?: Yes Alcohol Intake: current Alcohol Intake frequency: holidays/special occasions o nly Drug use: Never Substance use type: does not use Household members: spouse Number of Children: 3 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; 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 Current gender identity: female What is your relationship status?: Panel score (0-1 are the most socially isolated patients): 1 Seatbelt use: always Do you feel safe at home: Yes Do you feel safe in your relationship?: Yes Additional Social history: lives with Dionisio of 50+ years and son Girish in [facility] Female Reproductive History Menstrual Menopause type: natural History History 3 Para Hx # Term Pregnancies 3 Multiple births Hx # Pregnancies Ectopic pregnancies AB induced Hx Number of Living Children AB spontaneous Meds Allergies and Home Medications Allergies Allergy/AdvReac Type Severity Reaction Status Date / Time Penicillins Allergy Intermediate Hives Verified 07/17/22 15:20 sulfasalazine Allergy Unknown Verified 07/17/22 15:20 quinine AdvReac Severe Thrombocyto Verified 07/17/22 15:20 penia erythromycin base AdvReac Intermediate VOMITING Verified 07/17/22 15:20 hydroxychloroquine sulfate AdvReac Intermediate VOMITING Verified 07/17/22 15:20 [From Plaquenil] amoxicillin AdvReac Hives Verified 07/17/22 15:20 Home Medications Medication Instructions Recorded Confirmed Type lovastatin 40 mg tablet 40 mg PO DAILY 05/16/13 07/17/22 History metformin 500 mg tablet 1,000 mg PO DAILY 05/16/13 07/17/22 History Freestyle Glucometer 05/22/14 07/07/22 History aspirin 81 mg chewable tablet 81 mg PO DAILY 05/22/14 07/17/22 History (Aspirin Low-Strength) levothyroxine 75 mcg tablet 0.075 mcg PO DAILY 05/22/14 07/17/22 History (Levoxyl) blood sugar diagnostic (FreeStyle 06/12/14 07/17/22 History Lite Strips) calcium carbonate 500 mg-vitamin 1 ea PO DAILY 09/02/16 07/17/22 History D3 10 mcg (400 unit) tablet (Calcium 500 + D) cholecalciferol (vitamin D3) 25 1,000 unit PO DAILY 10/01/16 07/17/22 History mcg (1,000 unit) capsule albuterol sulfate 90 mcg/actuation 2 puff inhalation QID 06/08/18 07/17/22 History aerosol inhaler (ProAir HFA) nitroglycerin 0.4 mg sublingual 0.4 mg sublingual Q5-15M PRN 06/08/18 07/17/22 History tablet (Nitrostat) magnesium chloride 64 mg 64 mg PO BID 10/19/18 07/17/22 History tablet,extended release simethicone 125 mg capsule (Gas 125 mg PO BID-QID PRN 10/19/18 07/17/22 History Relief Extra Strength) paroxetine HCl 20 mg tablet (Paxil) 20 mg PO DAILY 09/04/19 07/17/22 History gabapentin 100 mg capsule 100 mg PO TID 07/29/20 07/17/22 History gabapentin 600 mg tablet 600 mg PO TID 07/30/20 07/17/22 History diclofenac sodium 1 % topical gel 2 g topical QID 01/22/22 07/17/22 History (Arthritis Pain (diclofenac)) fluticasone 100 mcg-salmeterol 50 1 inh inhalation BID 01/22/22 07/17/22 History mcg/dose blistr powdr for inhalation (Advair Diskus) insulin detemir U-100 100 unit/mL See Rx Instructions subcut .COMPLEX 07/03/22 07/17/22 History (3 mL) subcutaneous pen tramadol 50 mg tablet 50 mg PO DAILY 07/03/22 07/17/22 History Exam Narrative Exam Narrative: GEN: Alert and oriented x 3 (except date), pleasant and cooperative, gives [place] ear history but can't remember details, states ask my .. No acute distress at rest. HEENT: Head atraumatic. Conjunctiva clear, no icterus. PEERL, EOMI. no rhinorrhea. MMM, OP benign. Neck is supple with no masses or lymphadenopathy, trachea midline LUNGS: CTAB with normal effort, course at bases but this resolves with deep breath. CV: RRR with 1/6 systolic murmur at LSB, no gallops, or rubs. ABD: +BS, soft, NT/ND with no masses or organomegaly EXT: no cyanosis, clubbing, or edema MSK: No joint redness or swelling NEURO: CN 2-12 grossly intact. Normal movement of 4 extremities, symmetric strength. Normal speech and coordination, slight tremor in hands holding out strait, not at rest. SKIN: No rashes or open wounds. PSYCH: normal mood and affect Results Imaging Chest x-ray: report reviewed (no acute pulmonary disease, dextrocardia) and image reviewed EKG: report reviewed and image reviewed (Sinus tachy, borderline L axis, no ischemic ST changes. LVH) Labs 07/17/22 15:50 07/17/22 15:50 Labs: Laboratory Results - last 24 hr 07/17/22 07/17/22 07/17/22 15:50 15:50 15:50 WBC 13.35 H RBC 4.31 Hgb 10.2 L Hct 33.0 L MCV 77 L MCH 23.7 L MCHC 30.9 L RDW 16.8 H Plt Count 106 L MPV 10.2 Immature Gran % 0.7 Neutrophils % 84.0 Lymphocytes % 8.6 Monocytes % 6.0 Eosinophils % 0.4 Basophils % 0.3 Nucleated RBC % 0.0 Absolute Neutrophils 11.21 H Absolute Lymphocytes 1.15 L Absolute Monocytes 0.80 Absolute Eosinophils 0.05 Absolute Basophils 0.04 VBG Lactate Sodium 136 Potassium 4.1 Chloride 100 Carbon Dioxide 23.4 Anion Gap 12.6 H BUN 18 Creatinine 1.2 H Est GFR (CKD-EPI 2020) 47.80 Glucose 252 H Calcium 9.2 Magnesium 1.5 L Total Bilirubin 0.8 AST 20 ALT 18 Alkaline Phosphatase 74 Ammonia Troponin I < 50 Total Protein 9.3 H Albumin 4.0 Procalcitonin TSH 0.39 Urine Color Urine Clarity Urine pH Ur Specific [place] Urine Protein Urine Ketones Urine Blood Urine Nitrite Urine Bilirubin Urine Urobilinogen Ur Leukocyte Esterase Urine RBC Urine WBC Ur Epithelial Cells Urine Crystals Urine Bacteria Urine Mucus Ur Culture Indicated? Urine Glucose 07/17/22 07/17/22 07/17/22 15:50 15:50 18:12 WBC RBC Hgb Hct MCV MCH MCHC RDW Plt Count MPV Immature Gran % Neutrophils % Lymphocytes % Monocytes % Eosinophils % Basophils % Nucleated RBC % Absolute Neutrophils Absolute Lymphocytes Absolute Monocytes Absolute Eosinophils Absolute Basophils VBG Lactate Sodium Potassium Chloride Carbon Dioxide Anion Gap BUN Creatinine Est GFR (CKD-EPI 2020) Glucose Calcium Magnesium Total Bilirubin AST ALT Alkaline Phosphatase Ammonia < 10 L Troponin I Total Protein Albumin Procalcitonin 0.1 TSH Urine Color Yellow Urine Clarity Cloudy Urine pH 5.5 Ur Specific [place] 1.020 Urine Protein 30 H Urine Ketones Negative Urine Blood Small H Urine Nitrite Positive H Urine Bilirubin Negative Urine Urobilinogen 0.2 Ur Leukocyte Esterase Moderate H Urine RBC Not Applicable Urine WBC >50 H Ur Epithelial Cells Not Applicable Urine Crystals Not Applicable Urine Bacteria Many Urine Mucus Not Applicable Ur Culture Indicated? Yes Urine Glucose 250 H 07/17/22 19:05 WBC RBC Hgb Hct MCV MCH MCHC RDW Plt Count MPV Immature Gran % Neutrophils % Lymphocytes % Monocytes % Eosinophils % Basophils % Nucleated RBC % Absolute Neutrophils Absolute Lymphocytes Absolute Monocytes Absolute Eosinophils Absolute Basophils VBG Lactate 1.6 H Sodium Potassium Chloride Carbon Dioxide Anion Gap BUN Creatinine Est GFR (CKD-EPI 2020) Glucose Calcium Magnesium Total Bilirubin AST ALT Alkaline Phosphatase Ammonia Troponin I Total Protein Albumin Procalcitonin TSH Urine Color Urine Clarity Urine pH Ur Specific [place] Urine Protein Urine Ketones Urine Blood Urine Nitrite Urine Bilirubin Urine Urobilinogen Ur Leukocyte Esterase Urine RBC Urine WBC Ur Epithelial Cells Urine Crystals Urine Bacteria Urine Mucus Ur Culture Indicated? Urine Glucose Last Vital Signs Temp 37.3 C 07/17/22 21:01 Pulse 93 H 07/17/22 21:02 Resp 16 07/17/22 19:02 BP 118/61 07/17/22 21:02 Pulse Ox 93 07/17/22 21:02 Time Spent Time spent with Patient: 55-74 minutes Time was spent: preparing to see the patient(eg.review tests), obtaining and/or reviewing separately otained hiistory, ordering medications,tests, procedures, referring, communicating with other health farm or ranch animal caretaker, indepentently interpreting results and counseling the patient
[2022-07-17] MEDS: Enoxaparin 40 MG/0.4 ML SYR SC (21:35)
[2022-07-17] MEDS: Insulin Glargine 300 UNITS/3 ML PEN 12 UNITS SC (22:33)
[2022-07-18] MEDS: Acetaminophen 325 MG TAB PO ×2 (01:17→13:04)
[2022-07-18 06:15] VITALS: BP 121/68; PULSE 93; RESP 16; TEMP 36.5; O2SAT 97
[2022-07-18 06:44] LABS: Anion Gap 6.7 mmol/L (3-11); BUN 13 mg/dL (7-18); CO2 23.3 mmol/L (21.0-32.0); CREATININE 0.9 mg/dL (0.55-1.02); Calcium 8.5 mg/dL (8.5-10.1); Chloride 105 mmol/L (98-107); Glucose 194 mg/dL (74-106); Potassium 3.8 mmol/L (3.5-5.1); Sodium 135 mmol/L (136-145)
[2022-07-18 06:45] LABS: INR 1.1 (0.9-1.1); Prothrombin Time 10.8 sec (9.3-11.0)
[2022-07-18 06:50] LABS: Hemoglobin A1C 9.4 % (<5.7)
[2022-07-18] MEDS: Albuterol HFA 8 GM 60 PUFF INH IH ×2 (08:01→12:57)
[2022-07-18] MEDS: Budesonide/Formoterol 80/4.5 6.9 GM 60 PUFF INH IH (08:02)
[2022-07-18] MEDS: Magnesium Chloride 64 MG TABCR PO (08:18)
[2022-07-18] MEDS: metFORMIN 500 MG TAB 1000 MG PO (08:18)
[2022-07-18] MEDS: Aspirin 81 MG CHEW PO (08:18)
[2022-07-18] MEDS: traMADol 50 MG TAB PO (08:18)
[2022-07-18] MEDS: Cholecalciferol (Vitamin D3) 1,000 UNIT TAB 1000 UNITS PO (08:18)
[2022-07-18] MEDS: Calcium 600mg/Vit D 200U TAB 1 TAB PO (08:18)
[2022-07-18] MEDS: Insulin Glargine 300 UNITS/3 ML PEN 15 UNITS SC (08:31)
[2022-07-18] MEDS: Insulin Aspart 300 UNITS/3 ML PEN SC (08:32)
[2022-07-18] MEDS: Diclofenac 1% Gel 100 GM TUBE TP (08:33)
[2022-07-18] MEDS: PARoxetine 20 MG TAB PO (08:33)
[2022-07-18] MEDS: Levothyroxine 75 MCG TAB PO (09:48)
[2022-07-18] MEDS: Gabapentin 600 MG TAB PO (09:48)
--- NOTE | 2022-07-18 11:22 | DSE_ITS ---
Date of service: 07/18/22 Time of Service: 11:22 DS: Diagnosis Discharge Diagnosis (1) Acute UTI: Status: Acute (2) Type 2 diabetes mellitus: Status: Acute (3) Cirrhosis of liver: Status: Acute (4) Hypomagnesemia: (5) Acquired hypothyroidism: Status: Acute Discharge Plan Disposition Patient Disposition: Home Condition: Stable Discharge Details Reason For Visit: UTI Admit Date/Time: 07/17/22 19:25 Admit Provider: Mamadou Tarn Attending Provider: Mamadou Tran Primary Care Provider: Maricarmen Galvan Hospital Course Hospital Course: This is a 72 year old female with history of type 2 DM with A1c 8.3%, compensated hepatic cirrhosis, and mild cognitive impairment who presented to the ED by private vehicle with her after he found her confused and profoundly weak. He reports that she had previously been in her usual state of health but noted this morning when she woke up she was more lethargic/weak and that her blood sugar was found to be in the 200s which is unusual. He brought her to the emergency department for evaluation. While in the emergency department she did spike a fever to 102. Her work-up did reveal urinary tract infection. She was given IV fluids 2 g IV ceftriaxone. White count was elevated she was also found to be slightly tachycardic in the 1 teens with a blood pressure systolic of 100. She was admitted to the medical surgical unit under hospitalist services and overnight her confusion resolved. She remained hemodynamically stable with her pulse normalizing. In the a.m. she was awake alert oriented and at her baseline. She was eating and drinking. Requesting discharged home urine cultures not available yet but she is responding well to the cephalosporin so we will discharge her home on cefpodoxime while final culture report is available. She will follow-up with her primary care provider outpatient or return here sooner for new or worsening symptoms. She is discharged to home with no new services discharge as discussed with Dr. Stephen Home Meds and New Rx's Prescriptions: New cefpodoxime 200 mg tablet 200 mg PO BID Qty: 10 0RF Rx Instructions: must administer with a meal/food Continued simethicone [Gas Relief Extra Strength] 125 mg capsule 125 mg PO BID-QID PRN magnesium chloride 64 mg tablet extended release 64 mg PO BID gabapentin 600 mg tablet 600 mg PO TID insulin detemir U-100 100 unit/mL (3 mL) insulin pen See Rx Instructions SUBCUT .COMPLEX Rx Instructions: 15 U QAM 12 U QPM subcutaneously; tramadol 50 mg tablet 50 mg PO DAILY metformin 500 MG tablet 1,000 mg PO DAILY Patient Comments: 12/14/16 Now taking 1000mg BID. DM lovastatin 40 MG tablet 40 mg PO DAILY levothyroxine [Levoxyl] 75 MCG tablet 75 mcg PO DAILY aspirin [Aspirin Low-Strength] 81 MG tablet,chewable 81 mg PO DAILY FREESTYLE GLUCOMETER (DME) FreeStyle Lite Strips 1 EACH strip 1 ea Miscellaneous TID calcium carbonate-vitamin D3 [Calcium 500 + D] 1 EACH tablet 1 ea PO DAILY cholecalciferol (vitamin D3) 1,000 UNIT capsule 1,000 unit PO DAILY nitroglycerin [Nitrostat] 0.4 mg tablet, sublingual 0.4 mg SL Q5-15M PRN albuterol sulfate [ProAir HFA] 90 mcg/actuation HFA aerosol inhaler 2 puff IH QID paroxetine HCl [Paxil] 20 mg tablet 20 mg PO DAILY Patient Comments: PER PT. TAKES 40 MG QD. gabapentin 100 mg capsule 100 mg PO TID Patient Comments: 05/03/17 PT. STATES SHE TAKES 600 MG TID. 12/14/16 Pt states she is now taking 600mg TID. DM diclofenac sodium [Arthritis Pain (diclofenac)] 1 % gel 2 g topical QID Rx Instructions: apply to single elbow, wrist or hand; for hand includes palm/fingers/back of hand fluticasone propion-salmeterol [Advair Diskus] 100-50 mcg/dose blister with device 1 inh inhalation BID Discharge Instructions Instructions: Urinary Tract Infection in Women (DC) Additional Instructions: take antibiotics as prescribed even if you feel better. Stand Alone Forms: Nursing Discharge Form Referrals: Maricarmen Galvan [Primary Care Provider] - (Please call Wednesday to make a follow up appointment for 1-2 weeks) Activity:: Activity as Tolerated Equipment/Supplies:: No Equipment Needed Diet:: As Tolerated Discharge Orders Discharge Orders: Discharge Order (Routine); Ordered 07/18/22 Ordered By: Jessi Rivero DS: Summary Time Spent with Patient providing and/or coordinating discharge services: Less than 30 minutes Status at Discharge Functional status at discharge: independent ambulation Overall status at discharge: patient is back to baseline Mental Status: mental status grossly normal Speech and Movement: speech and movement normal Mood: congruent mood Affect: normal affect Exam Const General: cooperative, comfortable, no acute distress and frail appearing Nutritional Appearance: average body habitus Orientation: alert, awake and oriented x3 (some memory deficit but at baseline per ) HENMT Head: normal to inspection, normocephalic and atraumatic Neck Neck: normal visual inspection Resp Effort & Inspection: normal respiratory effort Auscultation: clear to auscultation bilaterally Cardio Rate: regular rate Rhythm: regular rhythm GI Inspection: normal to inspection Palpation: soft Skin General skin exam: no rashes or lesions noted Neuro General: patient confused Extrem General: no pedal edema Psych Appearance: grossly normal Mental Status: mental status grossly normal Speech and Movement: speech and movement normal Mood: congruent mood Affect: normal affect DS: Data Vitals/I&O Vitals and I&O: Vital Signs Temperature 36.5 C 07/18/22 06:15 Temperature Source Tympanic 07/18/22 06:15 Pulse 93 H 07/18/22 06:15 Pulse Rhythm Regular 07/18/22 07:45 Pulse 111 H 07/17/22 18:00 Respiratory Rate 16 07/18/22 06:15 Respiratory Effort Normal, Non-Labored 07/18/22 07:45 Respiratory Depth Normal 07/18/22 07:45 Respiratory Pattern Normal 07/18/22 07:45 Blood Pressure 121/68 07/18/22 06:15 Blood Pressure Position Sitting 07/17/22 15:13 Pulse Oximetry 97 07/18/22 06:15 Oxygen Delivery Method Room Air 07/18/22 06:15 Oxygen Flow Rate 0 07/18/22 06:15 Pain Level 0 07/17/22 15:13 Intake & Output 07/17/22 07/17/22 07/18/22 11:59 23:59 11:59 Output Total 150 / 150 650 / 650 Balance -150 / -150 -650 / -650 Weight 52.163 kg 50.2 kg Output: Urine 150 / 150 650 / 650 Other: Urine Color Yellow Yellow Urine Appearance Cloudy Clear Urine Odor Normal Normal Comment 550 in periwick, 100 in commode Voiding Methods Toilet Bedside Commode Data Completed and Pending Labs on day of discharge: Labs from last 24 hours 07/18/22 07/18/22 07/18/22 06:13 06:13 06:13 WBC RBC Hgb Hct MCV MCH MCHC RDW Plt Count MPV Immature Gran % Neutrophils % Lymphocytes % Monocytes % Eosinophils % Basophils % Nucleated RBC % Absolute Neutrophils Absolute Lymphocytes Absolute Monocytes Absolute Eosinophils Absolute Basophils PT 10.8 INR 1.1 VBG Lactate Sodium 135 L Potassium 3.8 Chloride 105 Carbon Dioxide 23.3 Anion Gap 6.7 BUN 13 Creatinine 0.9 Est GFR (CKD-EPI 2020) 67.50 Glucose 194 H Hemoglobin A1c 9.4 H Calcium 8.5 Magnesium 2.0 Total Bilirubin AST ALT Alkaline Phosphatase Ammonia Troponin I Total Protein Albumin Procalcitonin TSH Urine Color Urine Clarity Urine pH Ur Specific [place] Urine Protein Urine Ketones Urine Blood Urine Nitrite Urine Bilirubin Urine Urobilinogen Ur Leukocyte Esterase Urine RBC Urine WBC Ur Epithelial Cells Urine Crystals Urine Bacteria Urine Mucus Ur Culture Indicated? Urine Glucose 07/17/22 07/17/22 07/17/22 19:05 18:12 15:50 WBC RBC Hgb Hct MCV MCH MCHC RDW Plt Count MPV Immature Gran % Neutrophils % Lymphocytes % Monocytes % Eosinophils % Basophils % Nucleated RBC % Absolute Neutrophils Absolute Lymphocytes Absolute Monocytes Absolute Eosinophils Absolute Basophils PT INR VBG Lactate 1.6 H Sodium Potassium Chloride Carbon Dioxide Anion Gap BUN Creatinine Est GFR (CKD-EPI 2020) Glucose Hemoglobin A1c Calcium Magnesium Total Bilirubin AST ALT Alkaline Phosphatase Ammonia Troponin I Total Protein Albumin Procalcitonin 0.1 TSH Urine Color Yellow Urine Clarity Cloudy Urine pH 5.5 Ur Specific [place] 1.020 Urine Protein 30 H Urine Ketones Negative Urine Blood Small H Urine Nitrite Positive H Urine Bilirubin Negative Urine Urobilinogen 0.2 Ur Leukocyte Esterase Moderate H Urine RBC Not Applicable Urine WBC >50 H Ur Epithelial Cells Not Applicable Urine Crystals Not Applicable Urine Bacteria Many Urine Mucus Not Applicable Ur Culture Indicated? Yes Urine Glucose 250 H 07/17/22 07/17/22 07/17/22 15:50 15:50 15:50 WBC 13.35 H RBC 4.31 Hgb 10.2 L Hct 33.0 L MCV 77 L MCH 23.7 L MCHC 30.9 L RDW 16.8 H Plt Count 106 L MPV 10.2 Immature Gran % 0.7 Neutrophils % 84.0 Lymphocytes % 8.6 Monocytes % 6.0 Eosinophils % 0.4 Basophils % 0.3 Nucleated RBC % 0.0 Absolute Neutrophils 11.21 H Absolute Lymphocytes 1.15 L Absolute Monocytes 0.80 Absolute Eosinophils 0.05 Absolute Basophils 0.04 PT INR VBG Lactate Sodium Potassium Chloride Carbon Dioxide Anion Gap BUN Creatinine Est GFR (CKD-EPI 2020) Glucose Hemoglobin A1c Calcium Magnesium Total Bilirubin AST ALT Alkaline Phosphatase Ammonia < 10 L Troponin I Total Protein Albumin Procalcitonin TSH 0.39 Urine Color Urine Clarity Urine pH Ur Specific Sart[place] Urine Protein Urine Ketones Urine Blood Urine Nitrite Urine Bilirubin Urine Urobilinogen Ur Leukocyte Esterase Urine RBC Urine WBC Ur Epithelial Cells Urine Crystals Urine Bacteria Urine Mucus Ur Culture Indicated? Urine Glucose 07/17/22 15:50 WBC RBC Hgb Hct MCV MCH MCHC RDW Plt Count MPV Immature Gran % Neutrophils % Lymphocytes % Monocytes % Eosinophils % Basophils % Nucleated RBC % Absolute Neutrophils Absolute Lymphocytes Absolute Monocytes Absolute Eosinophils Absolute Basophils PT INR VBG Lactate Sodium 136 Potassium 4.1 Chloride 100 Carbon Dioxide 23.4 Anion Gap 12.6 H BUN 18 Creatinine 1.2 H Est GFR (CKD-EPI 2020) 47.80 Glucose 252 H Hemoglobin A1c Calcium 9.2 Magnesium 1.5 L Total Bilirubin 0.8 AST 20 ALT 18 Alkaline Phosphatase 74 Ammonia Troponin I < 50 Total Protein 9.3 H Albumin 4.0 Procalcitonin TSH Urine Color Urine Clarity Urine pH Ur Specific [place] Urine Protein Urine Ketones Urine Blood Urine Nitrite Urine Bilirubin Urine Urobilinogen Ur Leukocyte Esterase Urine RBC Urine WBC Ur Epithelial Cells Urine Crystals Urine Bacteria Urine Mucus Ur Culture Indicated? Urine Glucose 07/17/22 19:20 Blood Blood Culture - Pending 07/17/22 19:05 Blood Blood Culture - Pending 07/17/22 18:12 Urine - Clean Catch Urine Culture - Pending Preliminary micro results at discharge 07/17/22 19:20 Blood Culture - Pending Blood 07/17/22 19:05 Blood Culture - Pending Blood 07/17/22 18:12 Urine Culture - Pending Urine - Clean Catch PFSH All Active Problems Discharge planning issues (Acute) DVT prophylaxis (Acute) Altered mental status (Acute) Acute UTI (Acute) Advanced care planning/counseling discussion (Acute) Frail elderly (Acute) Chronic pain (Chronic) Prescribed meds from PCP Generalized anxiety disorder (Acute) Type 2 diabetes mellitus (Acute) Psoriatic arthritis (Acute) Palliative care encounter (Acute) Varices of other sites (Acute) Cirrhosis of liver (Acute) DJD (degenerative joint disease) (Chronic) Thrombocytopenia (Chronic) Seizure disorder (Chronic) Low blood pressure (Acute) Vitreous degeneration (Acute) Paresthesia of both hands (Acute) Lumbar spondylolysis (Acute) Difficulty swallowing (Acute) Word finding difficulty (Acute) Squamous cell carcinoma of vulva (Acute) Orthostatic hypotension (Acute) Vertigo (Acute) Peripheral neuropathy (Acute) Mild cognitive impairment (Acute) Diabetic autonomic neuropathy associated with type 2 diabetes mellitus (Acute 11/04/16) Gait instability (Acute 05/03/17) Lichen sclerosus et atrophicus of the vulva (Acute 01/01/17) Rx for Clobetasol. Pt did not refill after intial Rx ran out. 06/2017 Recommended that she have PCP refill Rx for [facility]. Mild neurocognitive disorder (Acute 12/09/16) Seizures (Acute 07/19/14) Episodes transient global amnesia 2011, normal EEG head imaging at that time. Because of possibility of partial seizures, started on seizure medication at that time. 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 Chronic idiopathic thrombocytopenia Chronic periodontitis Closed head injury Cough Decreased strength Diabetes mellitus Diabetic neuropathy Dizziness Dysosmia Essential hypertension Frequent falls Generalized anxiety disorder Hand paresthesia Hemorrhoids History of anemia History of closed head injury HTN (hypertension) Hx of head injury Hyperlipidemia Hypomagnesemia Hypothyroidism Knee pain, left Left leg weakness Left-sided chest pain Long-term use of high-risk medication Lumbar spondylitis Memory impairment Muscle spasm Neuropathy Osteopenia Osteoporosis Other specified disorders of bone density and structure, other site Partial seizure disorder 2+ years ago Premature menopause Psoriasis Rheumatoid arthritis SCC (squamous cell carcinoma) Shoulder pain, right SOB (shortness of breath) Social anxiety disorder Sore throat Spinal stenosis Spinal stenosis in cervical region Thyroid disease Transient global amnesia Tremor 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 Unsteadiness on feet Urinary frequency UTI (urinary tract infection) Vaginal adhesion Vaginal atrophy Vitreous degeneration, bilateral Vulvar lesion Surgical History H/O cystoscopy H/O endoscopy History of tubal ligation Hx of cataract surgery S/P appendectomy S/P cervical discectomy S/P tubal ligation Family History Brother Parkinson disease Sister Multiple sclerosis Mother Heart disease Brother Heart disease Other Diabetes Social History (Updated 07/17/22 @ 22:13 by Mamadou Tran) Smoking/Tobacco Use Status: Never Smoking risk assessment performed?: Yes Alcohol Intake: current Alcohol Intake frequency: holidays/special occasions only Drug use: Never Substance use type: does not use Household members: spouse Number of Children: 3 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; 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 Current gender identity: female What is your relationship status?: Panel score (0-1 are the most socially isolated patients): 1 Seatbelt use: always Do you feel safe at home: Yes Do you feel safe in your relationship?: Yes Additional Social history: lives with Dionisio of 50+ years and son Girish in [facility] Female Reproductive History Menstrual Menopause type: natural History History 3 Para Hx # Term Pregnancies 3 Multiple births Hx # Pregnancies Ectopic pregnancies AB induced Hx Number of Living Children AB spontaneous Time Spent with Patient Time Spent with Patient: <45 minutes Time was spent: preparing to see the patient(eg.review tests), ordering medications,tests, procedures, indepentently interpreting results and counseling the patient
[2022-07-18] MEDS: cefTRIAXone 2 GM/50 ML BAG IVPB (13:03)
== END 2022-07-18 13:54 | disposition home or self-care (01) | DRG 872 ==
LOC: ER 19:00 → MS 21:11
PROVIDERS: Admitting Provider Family Medicine; Emergency Provider Nurse Practitioner Acute Care; PCP Nurse Practitioner Family; Visit Provider Family Medicine
DX: N39.0 Urinary tract infection, site not specified (principal); R53.1 Weakness; E11.42 Type 2 diabetes mellitus with diabetic polyneuropathy; K74.60 Unspecified cirrhosis of liver; G40.909 Epilepsy, unspecified, not intractable, without status epilepticus; D50.9 Iron deficiency anemia, unspecified; E83.42 Hypomagnesemia; G31.84 Mild cognitive impairment of uncertain or unknown etiology; F41.1 Generalized anxiety disorder; D69.6 Thrombocytopenia, unspecified; R13.10 Dysphagia, unspecified; I95.1 Orthostatic hypotension; R26.9 Unspecified abnormalities of gait and mobility; E03.9 Hypothyroidism, unspecified; M48.02 Spinal stenosis, cervical region; R25.1 Tremor, unspecified; M06.9 Rheumatoid arthritis, unspecified; L40.50 Arthropathic psoriasis, unspecified; Z79.4 Long term (current) use of insulin; A41.9 Sepsis, unspecified organism
CPT/HCPCS: 36415; 80048; 80053; 84145; 87040; 87077; 93005; 94640; 96374; 99285; J1650; 71046; 81003; 81015; 82140; 83036; 83605; 83735; 84443; 84484; 85025; 85610; 87086; 87186; 93010; 94664; 99238; J0131

== ENCOUNTER 2022-07-22 01:47 | Outpatient (CLI) | payer MEDICARE, SELFPAY ==
--- NOTE | 2022-07-22 15:12 | DI.US_ITS ---
APPROVED REPORT EXAM: Comprehensive 2D, Doppler, and color-flow Echocardiogram Patient Location: Out-Patient Administrative Appeals Tribunal Member: Annabella Fernandes RDCS (AE) Indications: Aortic Insufficiency, SOB Other Information Study Quality: Adequate Conclusion Normal left ventricular wall thickness and chamber size. Ejection fraction is 60%. Wall motion is n ormal Normal right ventricular size and systolic function Both atria are normal in size The aortic valve is mildly sclerotic and trileaflet with mild regurgitation Mildly thickened mitral leaflets, mild mitral regurgitation Normal tricuspid valve with trace to mild regurgitation. Estimated right ventricular systolic pressu re is 22 mmHg Og dilated ascending aorta measuring 3.87 cm Wall motion Left Ventricle The left ventricle is normal size. The left ventricular systolic function is normal. The left ventric ular ejection fraction is within the normal range. There is normal left ventricular wall thickness. T here is normal LV segmental wall motion. There is no ventricular septal defect visualized. LVEF is 60 %. Right Ventricle Right ventricle is grossly normal in size. Right ventricular systolic function is grossly normal. The RVSP is 21.8 mmHg. Atria The left atrium size is normal. The right atrium size is normal. The interatrial septum is intact wit h no evidence for an atrial septal defect. Aortic Valve The Aortic valve is mildly sclerotic. Aortic valve is trileaflet. There is no aortic valvular stenosi s. Mild aortic regurgitation. Mitral Valve Mildly thickened mitral leaflets No evidence of mitral valve stenosis. Mild mitral regurgitation. Tricuspid Valve The tricuspid valve is normal in structure. There is no tricuspid valve stenosis. Trace to mild tric uspid regurgitation. Pulmonic Valve The pulmonary valve is normal in structure. There is no pulmonic valvular stenosis. Trace pulmonic re gurgitation. Great Vessels The aortic root is normal in size. The ascending aorta is mildly dilated. Aortic arch is normal in ca liber. IVC is normal in size and collapses >50% with inspiration. Pericardium There is no pericardial effusion. 2D Dimensions IVSD d PLAX 0.86 cm F: 0.6-1.0 LV Vol A2C d MOD 67.0 mL LVPW d PLAX 0.94 cm F: 0.6 - 1.0 LV Vol A4C d MOD 66.3 mL LVID d PLAX 3.77 cm F: 3.8 - 5.2 LA vol/ BSA A4C s A-L 20.7 mL/m2 LVDs 2.65 cm F: 2.2 - 3.5 LA Area A4C s MOD 13.62 cm2 Ao Root d 3.10 cm F: 2.7 - 3.3 LV EF A4C MOD 59.0 % Ao Asc Diam d 3.87 cm F: 2.3 - 3.1 LV EF A2C MOD 58.0 % LV EF Teichholz 55.5 % LV EF Biplane MOD 59.5 % LVEF (Dupree's) 59.52 % F: 54 - 74 SV 40.75 mL LV Volume 57.25 mL F: 46 - 106 SV Index 27.39 mL/m2 LV Volume Index 38.42 mL/m2 F: 29 - 61 LV Vol Biplane MOD 68.5 mL FS 28.35 % M-Mode TAPSE 2.24 cm (M/F) >1.7 LV Diastology MV E' medial 0.066 (>0.07 m/s) E/A Ratio 0.6 LV E/e MED 9.20 (<14) MV E Vmax 0.61 (0.4-1.3 m/s) MV E' lateral 0.086 (>0.1 m/s) MV A Vmax 0.95 (0.4-1.3 m/s) LV E/e LAT 7.10 (<14) MV E/A Ratio 0.62 MV E/E' medial 9.24 MV E/E' lateral 7.13 Aortic Valve LVOT Area 2.88 cm2 AoV Area Vmax 1.51 cm2 LVOT Vmax 0.84 m/s AoV Area/ BSA (Vmax) 1.01 cm2/m2 LVOT Mean Alok. 0.60 m/s GONZALES Mean Alok. 1.44 cm2 LVOT Peak Grad 2.8 mmHg GONZALES Mean Alok. Index 0.97 cm2/m2 LVOT Mean Grad 1.6 mmHg AR DT 1039 msec LVOT VTI 0.155 m AR PHT 301 msec LVOT Diam s 1.90 cm AoV Vmax 1.61 m/s Velocity Ratio 0.52 AoV Mean Alok. 1.19 m/s AoV Peak Grad 10.3 mmHg LVOT SV 44.75 mL AoV Mean Grad 6.1 mmHg AoV VTI 0.300 m AoV Area VTI 1.49 cm2 AoV Area/ BSA (VTI) 1.00 cm/m2 Mitral Valve MV DT 294 (160-240 msec) MV PHT 85 msec MV Area PHT 2.58 cm2 Pulmonary Valve PV Vmax 0.97 (0.5-1.5 m/s) RVOT Peak Gr. 2.26 mmHg PV Peak Grad 3.8 mmHg RVOT Mean Gr. 1.15 mmHg PV Mean Grad 2.0 mmHg RVOT VTI 0.136 m PV VTI 0.183 m RVOT Vmax 0.75 m/s Tricuspid Valve TR Peak Grad 18.8 mmHg TR Vmax 2.17 m/s RA Pressure 3.00 mmHg RVSP (TR) 21.8 mmHg
== END 2022-07-22 02:07 ==
PROVIDERS: PCP Nurse Practitioner Family; Visit Provider Nurse Practitioner Family
DX: R06.02 Shortness of breath (principal)
CPT/HCPCS: 93306

== ENCOUNTER 2022-07-29 07:08 | Day surgery (SDC) | payer MEDICARE, SELFPAY ==
--- NOTE | 2022-07-29 06:52 | W.PM.PROGNOT ---
Date of Service Date of service: 07/29/22 Time of Service: 08:11 Assessment and Plan Assessment and plan (1) Cirrhosis of liver: Status: Acute Assessment and plan: Mrs Vega is a pleasant 72-year-old female who is here today at request of hepatology and GI regarding an upper endoscopy for dysphagia.? They would also like me to look for varices.? She did not have any varices back in 2019.? She has never had hematemesis.? I did discuss the procedure in detail with Ms. Vega and her again today in SDS.? Risks, benefits and complications have been reviewed. Complications include but are not limited to bleeding, pain, perforation, sore throat, aspiration, and adverse reaction to the medications.? Questions were entertained and answered to their satisfaction.? The patient had a good understanding of the risks, complications and they wished to proceed. No guarantees were given or implied. Subjective Subjective Interval history since last seen: I am seeing Shereen in same-day surgery today. I saw that she was admitted to the hospital overnight for and urinary tract infection. She had no upper respiratory symptoms. She has recovered from this. She denies any more urinary symptoms or fevers. She has not had any new symptoms regarding her reflux. We again reviewed the procedure as well as the risks, benefits and complications. Shereen understood the complications especially the increased risk of bleeding if she does have varices now. She wishes to proceed. Exam Const General: comfortable and no acute distress HENMT Head: normocephalic and atraumatic Resp Effort & Inspection: normal respiratory effort Time Spent with Patient Time Spent with Patient: <25 minutes Time was spent: other
--- NOTE | 2022-07-29 06:58 | PDOC.DSDIS_ITS ---
Date of service: 07/29/22 Time of Service: 09:20 Discharge Plan Disposition Patient Disposition: Home Condition: Stable Discharge Details Reason For Visit: egd Attending Provider: Shelley Mike Primary Care Provider: Maricarmen Galvan Home Meds and New Rx's Prescriptions: New famotidine [Pepcid] 40 mg tablet 40 mg PO QHS Qty: 30 0RF Continued simethicone [Gas Relief Extra Strength] 125 mg capsule 125 mg PO BID-QID PRN magnesium chloride 64 mg tablet extended release 64 mg PO BID gabapentin 600 mg tablet 600 mg PO TID insulin detemir U-100 100 unit/mL (3 mL) insulin pen See Rx Instructions SUBCUT .COMPLEX Rx Instructions: 15 U QAM 12 U QPM subcutaneously; tramadol 50 mg tablet 50 mg PO DAILY metformin 500 MG tablet 1,000 mg PO DAILY Patient Comments: 12/14/16 Now taking 1000mg BID. DM lovastatin 40 MG tablet 40 mg PO DAILY levothyroxine [Levoxyl] 75 MCG tablet 75 mcg PO DAILY aspirin [Aspirin Low-Strength] 81 MG tablet,chewable 81 mg PO DAILY FREESTYLE GLUCOMETER (DME) FreeStyle Lite Strips 1 EACH strip 1 ea Miscellaneous TID calcium carbonate-vitamin D3 [Calcium 500 + D] 1 EACH tablet 1 ea PO DAILY cholecalciferol (vitamin D3) 1,000 UNIT capsule 1,000 unit PO DAILY nitroglycerin [Nitrostat] 0.4 mg tablet, sublingual 0.4 mg SL Q5-15M PRN albuterol sulfate [ProAir HFA] 90 mcg/actuation HFA aerosol inhaler 2 puff IH QID paroxetine HCl [Paxil] 20 mg tablet 20 mg PO DAILY Patient Comments: PER PT. TAKES 40 MG QD. diclofenac sodium [Arthritis Pain (diclofenac)] 1 % gel 2 g topical QID Rx Instructions: apply to single elbow, wrist or hand; for hand includes palm/fingers/back of hand fluticasone propion-salmeterol [Advair Diskus] 100-50 mcg/dose blister with device 1 inh inhalation BID Discontinued gabapentin 100 mg capsule 100 mg PO TID Patient Comments: 05/03/17 PT. STATES SHE TAKES 600 MG TID. 12/14/16 Pt states she is now taking 600mg TID. DM Discharge Instructions Instructions: Esophagitis (DC) Additional Instructions: Findings: Mild inflammation of the stomach and esophagus. Biopsies done Food in the stomach- ? gastroparesis ( slowing of your stomach emptying food) Follow up: with your Cellophaner Medication: Please fruit or nut picker Pepcid 40 mg and take every night to help with inflammation and swallowing issues Other: I will send results of the biopsies to your Primary Care Physician and your Cellophaner and I will send a letter to you. if there are any concerns I will call you Please call if you develop: fevers >101.5 Nausea or Vomiting Abdominal pain that is not transient Rectal bleeding that is more then a tbsp A hard abdomen and inability to pass gas DAY SURGERY UNIT POST ENDOSCOPY INSTRUCTIONS Instructions for everyone who is given Anesthesia: For your safety, please do the following for the next 24 Hours: a. Do not drive or operate dangerous equipment b. Do not drink alcohol beverages or use any recreational drugs for the first 24 hours or while taking pain medications. The medications in your body may have a reaction that can be dangerous. c. Do not make any important decisions or sign any important papers 1. Generally there are no restrictions on your activity after a day or so has gone by, but you may feel a bit fatigued for a few days. 2. After you arrive home you may have a light meal and return to a normal diet as you can tolerate it without feeling sick to your stomach. 3. After surgery, you may feel pain or discomfort. This should be only transient, but if it persists please contact your doctor. 4. If there are any questions regarding the findings of your procedure, please feel free to contact your doctor. 6. If you are unable to contact your doctor with a problem, contact the hospital at [phone]. 7. Continue all your regular medications unless directed otherwise. I understand the above instructions and have no questions. Signature of Patient or Responsible Adult Escort Date/Time Name of Responsible Adult Escort Signature of Nurse Date/Time Stand Alone Forms: Anesthesia Discharge Jono Vazquez (DSU) Activity:: Activity as Tolerated Diet:: As Tolerated Discharge Orders Discharge Orders: Discharge Order (Routine); Ordered 07/29/22 Ordered By: Shelley Mike DS: Diagnosis Discharge Diagnosis (1) Cirrhosis of liver: Status: Acute Asessment and Plan: Patient is seen and examined after their endoscopy. Patient has minimal sore throat. They have been able to tolerate liquids. They do not have any Nausea or Vomiting. They are not having any chest pain or shortness of breath. They have been able to pass gas and are not having any abdominal pain or distention. they have not vomited any blood. The vital signs have been stable-see nursing notes. We discussed findings on their endoscopy We reviewed the importance of lifestyle modifications- see diet recommendations We reviewed any new medications that the patient may be prescribed- see medicine reconciliation. Patient will either be sent a letter with the biopsy results or follow up in the office- see discharge instructions Patient was given explicit instructions for emergency follow up post endoscopy- see discharge instructions Patient verbalized understanding and was discharged in stable and satisfactory condition. See nursing notes.
--- NOTE | 2022-07-29 06:59 | W.PM.ENDDOP ---
Date of service: 07/29/22 Time of Service: 08:54 Endoscopy Report DATE OF PROCEDURE: 07/29/22 PRE-OP DIAGNOSIS: cirrhosis of the liver, dysphagia POST-OP DIAGNOSIS: same PROCEDURE: egd with biopsies SURGEON: Shelley Mike ANESTHESIA TYPE: General:No Airway ESTIMATED BLOOD LOSS: 2 PATHOLOGY: other (Bx of antrum, body and GE junction) COMPLICATIONS: None DISPOSITION: same day INDICATIONS: Mrs Vega is a pleasant 72-year-old female who is here today at request of hepatology and GI regarding an upper endoscopy for dysphagia.? They would also like me to look for varices.? She did not have any varices back in 2019.? She has never had hematemesis.? She does not have a cardiac history or pulmonary history but she does have an echo ordered for the end of July.? I will try to get the notes from her primary care physician as to the reason for the echocardiogram.? If there is any concerns then we may not be able to do this procedure until after the echocardiogram is done. I did discuss the procedure in detail with Ms. Vega and her .? Risks, benefits and complications have been reviewed. Complications include but are not limited to bleeding, pain, perforation, sore throat, aspiration, and adverse reaction to the medications.? Questions were entertained and answered to their satisfaction.? The patient had a good understanding of the risks, complications and they wished to proceed. No guarantees were given or implied. FINDINGS: mild inflammation of the stomach and esophagus Food within the stomach concerning for possible gastroparesis No varices PROCEDURE DESCRIPTION: After informed consent was obtained the patient was take to the operating room and placed in a supine position. Monitors were applied and a time out was done. The patients name, date of , procedure type, allergies to medications and metal in their body was reviewed. A bite block was placed and the patient was sedated. Once sedated and comfortable the gastroscope was advanced through the oropharynx which was grossly normal into the esophagus. The proximal and mid-esophagus were normal. In the distal esophagus there was mild noted. The scope was advanced into the stomach and through the pylorus into the 3rd portion of the duodenum. The duodenum was noted to be normal. The scope was retracted back into the stomach. There was food within the stomach. Biopsies were done to rule out H. pylori. There were no ulcers. The scope was retroflexed. The cardia and fundus were noted to be normal. There was no hiatal hernia noted. The scope was retracted back into the esophagus and biopsies were done of the GE junction to rule out Robins's. The Z line was regular. The GE junction was at 32 cm. There were no varices noted in the stomach or esophagus. The scope was removed and the patient was woken up and taken back to [facility] in stable condition. 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
[2022-07-29 07:23] VITALS: BP 124/84; PULSE 86; RESP 16; TEMP 35.9; O2SAT 98
[2022-07-29] MEDS: Lactated Ringers 1,000 ML 80 ML IV (07:43)
--- NOTE | 2022-07-29 08:07 | W.ANESPRE ---
General Info Date of Service Date Performed: 07/29/22 Height: 5 ft 1 in Weight: 52.8 kg Body Mass Index (BMI): 21.9 Surgical Procedure: Operation Date: 07/29/22 08:20 Proposed Procedure Side Surgeon p Gastroscopy with possible Balloon Dilation Shelley Mike MD Meds Allergies and Home Medications Allergies Allergy/AdvReac Type Severity Reaction Status Date / Time Penicillins Allergy Intermediate Hives Verified 07/29/22 07:44 sulfasalazine Allergy Unknown Verified 07/29/22 07:44 amoxicillin Allergy Hives Verified 07/29/22 08:03 quinine AdvReac Severe Thrombocyto Verified 07/29/22 07:44 penia erythromycin base AdvReac Intermediate VOMITING Verified 07/29/22 07:44 hydroxychloroquine sulfate AdvReac Intermediate VOMITING Verified 07/29/22 07:44 [From Plaquenil] Home Medication Medication Instructions Recorded lovastatin 40 mg tablet 40 mg PO DAILY 05/16/13 metformin 500 mg tablet 1,000 mg PO DAILY 05/16/13 Freestyle Glucometer 05/22/14 aspirin 81 mg chewable tablet 81 mg PO DAILY 05/22/14 (Aspirin Low-Strength) levothyroxine 75 mcg tablet 75 mcg PO DAILY 05/22/14 (Levoxyl) blood sugar diagnostic (FreeStyle 06/12/14 Lite Strips) calcium carbonate 500 mg-vitamin 1 ea PO DAILY 09/02/16 D3 10 mcg (400 unit) tablet (Calcium 500 + D) cholecalciferol (vitamin D3) 25 1,000 unit PO DAILY 10/01/16 mcg (1,000 unit) capsule albuterol sulfate 90 mcg/actuation 2 puff inhalation QID 06/08/18 aerosol inhaler (ProAir HFA) nitroglycerin 0.4 mg sublingual 0.4 mg sublingual Q5-15M PRN 06/08/18 tablet (Nitrostat) magnesium chloride 64 mg 64 mg PO BID 10/19/18 tablet,extended release simethicone 125 mg capsule (Gas 125 mg PO BID-QID PRN 10/19/18 Relief Extra Strength) paroxetine HCl 20 mg tablet (Paxil) 20 mg PO DAILY 09/04/19 gabapentin 100 mg capsule 100 mg PO TID 07/29/20 gabapentin 600 mg tablet 600 mg PO TID 06/08/21 diclofenac sodium 1 % topical gel 2 g topical QID 01/22/22 (Arthritis Pain (diclofenac)) fluticasone 100 mcg-salmeterol 50 1 inh inhalation BID 01/22/22 mcg/dose blistr powdr for inhalation (Advair Diskus) insulin detemir U-100 100 unit/mL See Rx Instructions subcut .COMPLEX 07/03/22 (3 mL) subcutaneous pen tramadol 50 mg tablet 50 mg PO DAILY 07/03/22 Current Visit Medications: Current Medications Generic Name Dose Route Start Last Admin Trade Name Freq PRN Reason Stop Dose Admin Ringer's Solution 1,000 mls @ 80 mls/hr 07/29/22 06:00 07/29/22 07:43 IV 08/27/22 23:59 80 mls/hr INFUSION [facility]ISH Administration IV Miscellaneous Supplies 1 each 07/29/22 06:00 Iv Access IV 08/27/22 23:59 DIRECTED PARISH Ondansetron HCl 4 mg 07/29/22 07:02 Ondansetron 4 Mg/2 Ml Vial IVP 08/28/22 07:01 Q4H PRN PRN Nausea / Vomiting Sodium Chloride 0 ml 07/29/22 06:00 Normal Saline Flush 10 Ml Syr IV 08/27/22 23:59 PRN PRN Sodium Chloride 0 ml 07/29/22 06:00 Normal Saline 10 Ml Vial IJ 08/27/22 23:59 DIRECTED PRN Sterile Water 0 ml 07/29/22 06:00 Water,Injection,Sterile 10 Ml Vial IJ 08/27/22 23:59 DIRECTED PRN PFSH Active Problems Active Problems: Problem Status Onset Code Diabetic autonomic neuropathy associated with type 2 diabetes mellitus 11/04/16 E11.43 Gait instability 05/03/17 R26.81 Lichen sclerosus et atrophicus of the vulva 01/01/17 N90.4 Mild neurocognitive disorder 12/09/16 G31.84 Seizures 07/19/14 R56.9 Psoriatic arthritis L40.50 Varices of other sites I86.8 Cirrhosis of liver K74.60 Essential tremor G25.0 Globus sensation R09.89 Acquired hypothyroidism E03.9 Cortical cataract of right eye H26.9 Nuclear sclerotic cataract of right eye H25.11 Cortical cataract of left eye H26.9 Nuclear sclerotic cataract of left eye H25.12 Mild cognitive impairment G31.84 Peripheral neuropathy G62.9 Vertigo R42 Orthostatic hypotension I95.1 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 Word finding difficulty R47.89 Difficulty swallowing R13.10 Lumbar spondylolysis M43.06 Paresthesia of both hands R20.2 Vitreous degeneration H43.819 Low blood pressure I95.9 Seizure disorder G40.909 Thrombocytopenia D69.6 DJD (degenerative joint disease) M19.90 Palliative care encounter Z51.5 Type 2 diabetes mellitus E11.9 Generalized anxiety disorder F41.1 Chronic pain G89.29 Frail elderly R54 Advanced care planning/counseling discussion Z71.89 Altered mental status R41.82 Acute UTI N39.0 Medical History Medical History Abnormal laboratory test Action tremor Anemia Anxiety Aortic insufficiency Ascending aorta dilation Balance problem uses cane Bursitis Candidiasis of vulva and vagina Cataract, bilateral Cervical spondylosis Cervicalgia 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/u with 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 Chronic idiopathic thrombocytopenia Chronic periodontitis Closed head injury Cough Decreased strength Diabetes mellitus Diabetic neuropathy Dizziness Dysosmia Essential hypertension Frequent falls Generalized anxiety disorder Hand paresthesia Hemorrhoids History of anemia History of closed head injury HTN (hypertension) Hx of head injury Hyperlipidemia Hypomagnesemia Hypothyroidism Knee pain, left Left leg weakness Left-sided chest pain Long-term use of high-risk medication Lumbar spondylitis Memory impairment Muscle spasm Neuropathy Osteopenia Osteoporosis Other specified disorders of bone density and structure, other site Partial seizure disorder Pt. 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 Unsteadiness on feet Urinary frequency UTI (urinary tract infection) Vaginal adhesion Vaginal atrophy Vitreous degeneration, bilateral Vulvar lesion Surgical History Surgical History H/O cystoscopy H/O endoscopy History of tubal ligation Hx of cataract surgery S/P appendectomy S/P cervical discectomy S/P tubal ligation Tobacco Smoking/Tobacco Use Status: Former Tobacco Use Alcohol Alcohol Intake: current Alcohol intake frequency: holidays/special occasions only Substance Use Substance use: Never Substance use type: does not use Prental History History 3 Para Hx # Term Pregnancies 3 Multiple births Hx # Pregnancies Ectopic pregnancies AB induced Hx Number of Living Children AB spontaneous Vital Signs and Lab Results Vital Signs Most Recent Vital Signs in EMR: Most Recent Vital Signs Temp Pulse Resp BP Pulse Ox 35.9 C L 86 16 124/84 98 07/29/22 07:23 07/29/22 07:23 07/29/22 07:23 07/29/22 07:23 07/29/22 07:23 Point of Care Results Point of Care Results: Finger Stick Blood Glucose 163 07/29/22 07:25 Lab Results Blood Type / Crossmatch: No Data to Display Complete Blood Count: White Blood Count 13.35 10^3/uL (4.4-10.8) H 07/17/22 15:50 Red Blood Count 4.31 10^6/uL (3.93-5.22) 07/17/22 15:50 Hemoglobin 10.2 g/dL (11.2-15.7) L 07/17/22 15:50 Hematocrit 33.0 % (36.0-46.0) L 07/17/22 15:50 Platelet Count 106 10^3/uL (130-400) L 07/17/22 15:50 Venous Blood Lactate 1.6 mmol/L (0.6-1.4) H 07/17/22 19:05 Complete Metabolic Panel: Sodium 135 mmol/L (136-145) L 07/18/22 06:13 Potassium 3.8 mmol/L (3.5-5.1) 07/18/22 06:13 Chloride 105 mmol/L (98-107) 07/18/22 06:13 Carbon Dioxide 23.3 mmol/L (21.0-32.0) 07/18/22 06:13 BUN 13 mg/dL (7-18) 07/18/22 06:13 Creatinine 0.9 mg/dL (0.55-1.02) 07/18/22 06:13 Est GFR (CKD-EPI 2020) 67.50 (mL/min/1.73m2) 07/18/22 06:13 Magnesium 2.0 mg/dL (1.8-2.4) 07/18/22 06:13 Calcium 8.5 mg/dL (8.5-10.1) 07/18/22 06:13 Albumin 4.0 g/dL (3.4-5.0) 07/17/22 15:50 Glucose 194 mg/dL (74-106) H 07/18/22 06:13 Hemoglobin A1c 9.4 % (<5.7) H 07/18/22 06:13 Liver Function Panel: Alanine Aminotransferase (ALT/SGPT) 18 U/L (14-59) 07/17/22 15:50 Aspartate Amino Transf (AST/SGOT) 20 U/L (15-37) 07/17/22 15:50 Gamma Glutamyl Transpeptidase 19 U/L (5-55) 07/08/22 14:35 Coagulation Panel: INR International Normalized Ratio 1.1 (0.9-1.1) 07/18/22 06:13 Prothrombin Time 10.8 sec (9.3-11.0) 07/18/22 06:13 Cardiac Panel: Troponin I < 50 ng/L (<or=60) 07/17/22 Arterial Blood Gas: No Data to Display Venous Blood Gas: No Data to Display Pancreas Panel: No Data to Display Thyroid Panel: Thyroid Stimulating Hormone (TSH) 0.39 uIU/mL (0.36-3.74) 07/17/22 15:50 Infectious Disease: No Data to Display Blood Cultures: No Data to Display Toxicology Panel: No Data to Display Anesthesia Assessment and Plan Anesthesia History Personal History: No History of Anesthesia Complications Family History: No Family History of Anesthesia Complications Exercise Tolerance Exercise Tolerance: Metabolic Equivalents<4 Pertinent Negatives Pertinent Negatives: No Symptoms of GERD Cardiac & Pulmonary Exam Cardiac Exam: Normal S1/S2 Heart Sounds Pulmonary Exam: Clear Bilateral Breath Sounds Implantable Cardiac Device Does patient have a Pacemaker or an ICD?: No Airway Exam Known Difficult Airway: No Mallampati Class: 2 Mouth Opening: Narrow (< 3cm) Thyromental Distance: Less than 3 cm Neck Range of Motion: Full ROM Neck Circumference: Normal Teeth Condition: Normal Dentition ASA Classification ASA Score: ASA 3 Emergency Case?: No NPO Status NPO Status: NPO Clears >2 hours, Solids >8 hours Anesthesia Plan Resuscitation Status: Full Code Anesthesia Technique: General Anesthesia Airway Planned: Natural Airway Monitors Used: Standard Monitors
[2022-07-29 08:08] VITALS: BMI 21.9
--- NOTE | 2022-07-29 08:25 | STOM_PTH ---
PATIENT: Shereen Vega LOC: [facility] U#:[id number] AGE/SX: 72/F ROOM: RE07/29/[address]: Shelley Mike MD : [id number] BED: DIS: 07/29/2022 SPEC #: [id number] RECD: 07/29/22 10:50 STATUS: JANESSA REQ #: [id number] MARY KATE: 07/29/22 08:[address]: Shelley Mike DEPT: Surgical Specimen RECD BY: Nikole Medina ENTERED: 07/29/22 10:50 SP TYPE: STOMACH OTHR DR: Maricarmen Galvan Tissues: 1 - STOMACH BIOPSY 2 - STOMACH BIOPSY 3 - ESOPHAGUS BIOPSY Procedures: GROSS AND MICRO LEVEL 4 Comments:
[2022-07-29 08:33] VITALS: BP 89/55; PULSE 75; RESP 16; TEMP 36.2; O2SAT 95
[2022-07-29 08:40] VITALS: BP 93/55; PULSE 76; O2SAT 96
[2022-07-29 08:45] VITALS: BP 106/65; PULSE 78; O2SAT 96
--- NOTE | 2022-07-29 08:47 | W.ANESPOSTOP ---
Postoperative Evaluation Date, Time and Location Date Performed: 07/29/22 Time Performed: 08:47 Patient Location: Day Surgery Unit Vital Signs Most Recent Imported Vital Signs: Most Recent Vital Signs Temp Pulse Resp BP Pulse Ox 35.9 C L 86 16 124/84 98 07/29/22 07:23 07/29/22 07:23 07/29/22 07:23 07/29/22 07:23 07/29/22 07:23 Pain Score Most Recent Pain Score: Most Recent Pain Score Pain Level 0 07/29/22 07:23 Assessment Mental Status: Awake (Alert & Oriented to Patient Baseline) Airway and Respiratory Function: Patent airway with normal (patient baseline) respiratory exam Cardiovascular Function: Hemodynamically Stable Hydration Status: Adequately Hydrated Nausea & Vomiting: No Nausea or Vomiting Pain: Pt. Denies Any Pain Peripheral Nerve Block: Patient did not receive a nerve block
[2022-07-29 08:55] VITALS: BP 126/72; PULSE 80; RESP 16; TEMP 36.4; O2SAT 96
== END 2022-07-29 09:35 | disposition home or self-care (01) ==
PROVIDERS: PCP Nurse Practitioner Family; Visit Provider Surgery
PROC: 0D758ZZ Dilation of Esophagus, Via Natural or Artificial Opening Endoscopic (ICD-10-PCS; CPT 43239; principal; 2022-07-29 08:15)
DX: R13.10 Dysphagia, unspecified (principal); K74.60 Unspecified cirrhosis of liver; E11.43 Type 2 diabetes mellitus with diabetic autonomic (poly)neuropathy; K22.89 Other specified disease of esophagus; K31.89 Other diseases of stomach and duodenum
CPT/HCPCS: 43239; 88305

== ENCOUNTER → 2022-08-11 10:50 | Outpatient (BNVA) | payer MEDICARE, SELFPAY | PROVIDERS: PCP Nurse Practitioner Family; Referring Provider Nurse Practitioner Family; Visit Provider Surgery | DX: R13.10 Dysphagia, unspecified (principal); K21.9 Gastro-esophageal reflux disease without esophagitis | CPT/HCPCS: 99212; 99213 ==

== ENCOUNTER 2022-10-05 18:55 | Outpatient (REF) | payer MEDICARE, SELFPAY ==
[2022-10-06 14:28] LABS: HGB 9.3 g/dL (11.2-15.7); MCH 23.7 pg (27.0-33.0); MCV 79 fL (80-95); MPV 11.2 fL (8.0-11.0); RBC 3.92 10^6/uL (3.93-5.22); RDW 17.7 % (11.7-14.6); RDW-SD 50.4 fL; WBC 5.64 10^3/uL (4.4-10.8)
[2022-10-06 14:30] LABS: Platelet Count 94 10^3/uL (130-400)
[2022-10-06 14:47] LABS: Iron 29 ug/dL (50-170); Total Iron Binding Capacity 413 ug/dL (250-450)
[2022-10-06 14:48] LABS: FREE T4 0.57 ng/dL (0.76-1.46); TSH (W/Ref FT4) 4.45 uIU/mL (0.36-3.74)
== END 2022-10-05 18:56 | disposition home or self-care (01) ==
LOC: NCHCN 18:55
PROVIDERS: PCP Family Medicine; Visit Provider Family Medicine
DX: R10.31 Right lower quadrant pain (principal); Z86.2 Personal history of diseases of the blood and blood-forming organs and certain disorders involving the immune mechanism; E03.9 Hypothyroidism, unspecified
CPT/HCPCS: 85027; 83540; 83550; 84439; 84443

== ENCOUNTER 2022-12-23 16:15 | Outpatient (REF) | payer MEDICARE, SELFPAY ==
--- OUTSIDE RECORDS SUMMARY | 2022-12-23 16:19 | XMS_ITS | Continuity of Care Document ---
Author Name Unknown Organization [facility] Address [address] [place] [address] Care Team Providers Care Travel Guide Name Role Phone MADAY GUTIÉRREZ Primary Care Physician Encounter [facility] [facility] NBR [id number] Date(s): 11/09/22 - 11/09/22 [facility] [address] [place], [place] [address] Discharge Disposition: Home Allergies, Adverse Reactions, Alerts Substance Reaction Severity Status erythromycin Unknown Unknown Active hydroxychloroquine Unknown Unknown Active penicillin G benzathine Unknown Unknown Acti ve quiNINE severe thrombocytopenia Unknown Acti ve Assessment and Plan Future Scheduled Tests Radiology* MRI Brain w/o Contrast 10/29/22 Medications aspirin 81 mg oral capsule 81 mg = 1 cap, Oral, Daily Start Date: 09/28/22 Status: Ordered calcium (as carbonate)-vitamin D3 600 mg-10 mcg (400 intl units) oral capsule 1 cap, Oral, Daily Start Date: 09/28/22 Status: Ordered famotidine 40 mg oral tablet 40 mg = 1 tab, Oral, TAKE ONE TABLET BY MOUTH TWICE A DAY WITH MEALS, 0 Refill(s) Start Date: 09/28/22 Status: Ordered Flovent HFA 110 mcg/inh inhalation aerosol 2 puffs, Inhale, BID, twice a day by mouth Start Date: 09/28/22 Status: Ordered fluticasone propionate 50 mcg =, Nostril-Both, Daily Start Date: 09/28/22 Status: Ordered Freestyle InsuLinx Test Strips Supply, See instructions, # 1 EA, 0 Refill(s) Start Date: 09/28/22 Status: Ordered Glucometer Glucometer, Please provide glucometer that is covered by insurance Test blood glucose twice daily, Supply, See instructions, # 1 EA, 0 Refill(s) Start Date: 09/28/22 Status: Ordered High Potency Vitamin D3 25 mcg (1000 intl units) oral capsule 0 Refill(s) Start Date: 09/28/22 Status: Ordered Januvia 100 mg oral tablet 100 mg 1 tab, Oral, Daily Start Date: 09/28/22 Status: Ordered Levemir FlexTouch 100 units/mL subcutaneous solution See Instructions, inject 15 units in the AM and 12 units in the PM, 0 Refill(s) Start Date: 09/28/22 Status: Ordered levothyroxine 50 mcg (0.05 mg) oral capsule 50 mcg = 1 cap, Oral, Daily Start Date: 09/28/22 Status: Ordered lovastatin 40 mg oral tablet 40 mg = 1 tab, Oral, Daily, take at night Start Date: 09/28/22 Status: Ordered Mag-Tab SR 84 mg oral tablet, extended release 84 mg = 1 tab, Oral, twice a day 84 mg at noon 84 mg at bedtime Start Date: 09/28/22 Status: Ordered metFORMIN 1000 mg oral tablet 1,000 mg = 1 tab, Oral, twice a day Start Date: 09/28/22 Status: Ordered Neurontin 100 mg oral capsule 100 mg = 1 cap, Oral, 3 x a day, 0 Refill(s) Start Date: 09/28/22 Status: Ordered Neurontin 600 mg oral tablet 600 mg = 1 tab, Oral, 3 x a day, # 90 tab Start Date: 09/28/22 Status: Ordered Nitrostat 0.4 mg sublingual tablet 0.4 mg = 1 tab, SL, PRN as needed for chest pain, UNDER TONGUE Call 911 after first dose 3X MAX DOSAGE, # 100 tab, 0 Refill(s) Start Date: 09/28/22 Status: Ordered PARoxetine 20 mg oral tablet 3 EA, 0 Refill(s), TAKE ONE TABLET BY MOUTH EVERY DAY, 0 Refill(s) Start Date: 09/28/22 Status: Ordered Paxil 20 mg oral tablet 20 mg = 1 tab, Oral, Daily, BY MOUTH Start Date: 09/28/22 Status: Ordered ProAir HFA 90 mcg/inh inhalation aerosol 2 puffs, Inhale, every 4 hr, PRN as needed for wheezing, # 8.5 g, 0 Refill(s) Start Date: 09/28/22 Status: Ordered Sinemet 25 mg-100 mg oral tablet 1 tab, Oral, TID, # 270 tab, 0 Refill(s) Start Date: 10/13/22 Status: Ordered Sinemet 25 mg-100 mg oral tablet 1 tab, Oral, TID, # 90 tab, 1 Refill(s) Start Date: 10/01/22 Status: Ordered traMADol 50 mg oral tablet 50 mg = 1 tab, Oral, every 12 hr, PRN as needed for pain, twice a day DO NOT EXCEED 2 TABS Start Date: 09/28/22 Status: Ordered traZODone 50 mg oral tablet 25 mg = 0.5 tab, Oral, As Directed, PRN insomnia, Insomnia and/or severe anxiety, # 90 tab, 0 Refill(s) Start Date: 10/01/22 Status: Ordered Problem List Condition Confirmation Course Effective Dates Status H ealth Status Informant Acquired hypothyroidism Confirmed Active Amnesia Confirmed Active Anemia Confirmed Active Anemia due to unknown mechanism Confirmed Active Aortic insufficiency Confirmed Active Ascending aorta dilation Confirmed Active Atrophy of vagina Confirmed Active Diabetic autonomic neuropathy Confirmed Active Bilateral cataracts Confirmed Active Vitreous degeneration, bilateral Confirmed Active Bursitis Confirmed Active Periodontitis chronic, apical Confirmed Active Liver cirrhosis Confirmed Active Closed head injury Confirmed Active Other specified disorders of bone density and structure, other site Confirmed Active Disorder of thyroid gland Confirmed Active Dizziness Confirmed Active Drug therapy finding Confirmed Active Difficulty swallowing Confirmed Active Shortness of breath Confirmed Active Feeling of lump in throat Confirmed Active Globus sensation Confirmed Active Fibromyositis Confirmed Active Foot arch pain Confirmed Active Generally unsteady Confirmed Active EARLENE (generalized anxiety disorder) Confirmed Active History of head injury Confirmed Active Hemorrhoids Confirmed Active Hyperlipidemia Confirmed Active Hypomagnesemia Confirmed Active Balance problems Confirmed Active Urinary frequency Confirmed Active Action tremor Confirmed Active Left-sided chest pain Confirmed Active Low blood pressure Confirmed Active Memory deficit Confirmed Active Decreased strength Confirmed Active Left leg weakness Confirmed Active Cervicalgia Confirmed Active Neuropathy Confirmed Active Degenerative joint disease Confirmed Active Osteoarthritis of multiple joints Confirmed Active Osteoporosis Confirmed Active Left knee pain Confirmed Active Right shoulder pain Confirmed Active Paresthesia of hand Confirmed Active Pill rolling tremors Confirmed Active Psoriasis Confirmed Active Psoriatic arthritis Confirmed Active Psoriatic arthritis Confirmed Active Frequent falls Confirmed Active Seizure disorder Confirmed Active Senile osteopenia Confirmed Active Slow transit constipation Confirmed Active Sore throat symptom Confirmed Active Muscle spasm Confirmed Active Spinal stenosis Confirmed Active Lumbar spondylolysis Confirmed Active Squamous cell carcinoma of vulva Confirmed Active Thrombocytopenia Confirmed Active Type 2 diabetes mellitus Confirmed Active 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 Started age 15.0 Years. Stopped age 15 Years. Sex Patient Care team information Care Team Personnel Name: MADAY GUTIÉRREZ Position: No Access Member Role: Primary Care Physician Address: Address: [address] [place] [address]- Care Team Related Persons Name: VENUS SORIANO
--- OUTSIDE RECORDS SUMMARY | 2022-12-23 16:19 | XMS_ITS | Continuity of Care Document ---
Author Name Unknown Organization [facility] Address [address] [place] [address] Care Team Providers Care Caregiver Services Home Name Role Phone MADAY GUTIÉRREZ Primary Care Physician Encounter [facility] FIN NBR [id number] Date(s): 10/30/22 - 10/30/22 [facility] [address] [place], [place] [address] Discharge Disposition: Home Allergies, Adverse Reactions, [...] Member Role: Primary Care Physician Address: Address: [address] [place] [address]- Care Team Related Persons Name: VENUS SORIANO
--- OUTSIDE RECORDS SUMMARY | 2022-12-23 16:20 | XMS_ITS | Continuity of Care Document ---
Author Name Unknown Organization [facility] Address [address] [place] [address] Care Team Providers Care Waste Salvager Name Role Phone MARTÍNEZMADAY Padilla Primary Care Physician [phone] Encounter [facility] NBR [id number] Date(s): 10/15/22 - 10/15/22 [facility] [address] [place], [place] [address] Discharge Disposition: Home or Self Care Attending Physician: NORM CASTILLO Admitting Physician: NORM CASTILLO Referring Physician: NORM CASTILLO Allergies, Adverse Reactions, Alerts Substance Reaction Severity Status erythromycin Unknown Unknown Active hydroxychloroquine Unknown Unknown Active penicillin G benzathine Unknown Unknown Acti ve quiNINE severe thrombocytopenia Unknown Acti ve Medications aspirin 81 mg oral capsule 81 [...] tab, Oral, TID, # 270 tab, 0 Refill(s), Pharmacy: [facility] Start Date: 10/13/22 Status: Ordered Sinemet 25 mg-100 mg oral tablet 1 tab, Oral, TID, # 90 tab, 1 Refill(s), Pharmacy: [facility] Start Date: 10/01/22 Status: Ordered traMADol 50 mg oral tablet 50 mg = 1 tab, Oral, every 12 hr, PRN as needed for pain, twice a day DO NOT EXCEED 2 TABS Start Date: 09/28/22 Status: Ordered traZODone 50 mg oral tablet 25 mg = 0.5 tab, Oral, As Directed, PRN insomnia, Insomnia and/or severe anxiety, # 90 tab, 0 Refill(s), Pharmacy: [facility] Start Date: 10/01/22 Status: Ordered Problem List [...] Member Role: Primary Care Physician Address: Address: [address] [place] [id number] [place] [address] Care Team Related Persons Name: VENUS SORIANO
--- OUTSIDE RECORDS SUMMARY | 2022-12-23 16:20 | XMS_ITS | Continuity of Care Document ---
Author Name Unknown Organization [facility] Ambulatory Clinics Address [address] [place] [address] Care Team Providers Care Metal Expediter Name Role Phone MADAY GUTIÉRREZ Primary Care Physician [phone] Encounter [facility] NBR [id number] Date(s): 10/01/22 - 10/01/22 [facility] Amb[facility] [address], [place] [address] Encounter Diagnosis Parkinsonism(Discharge Diagnosis) - 10/01/22 Mild cognitive impairment(Discharge Diagnosis) - 10/01/22 Discharge Disposition: Home or Self Care Attending Physician: Lex Schofield MD Referring Physician: MADAY GUTIÉRREZ Allergies, Adverse Reactions, Alerts Substance Reaction Severity Status erythromycin Unknown Unknown Active hydroxychloroquine Unknown Unknown Active penicillin G benzathine Unknown Unknown Acti ve quiNINE severe thrombocytopenia Unknown Acti ve Assessment and Plan Future Scheduled Tests Radiology* MRI Brain w/o Contrast 10/01/22 Medications aspirin 81 mg oral capsule 81 [...] Confirmed Active Vitamin D deficiency Confirmed Active Vital Signs Most recent to oldest [Reference Range]: 1 Peripheral Pulse Rate [60-100 bpm] 96 bp m (10/01/22 12:54 PM) Blood Pressure [90-140/60-90 mmHg] 130/8 2mmHg (10/01/22 12:54 PM) Weight 52.98 kg (10/01/22 12:54 PM) Weight Measured (lbs) 116.801 lb (10/01/22 12:54 PM) [place] Body Weight Calculated 47.8 kg (10/01/22 12:54 PM) Height 154.94 cm (10/01/22 12:54 PM) Height/Length Measured (inches) 61 inch (10/01/22 12:54 PM) BSA Measured 1.51 m2 (10/01/22 12:54 PM) Body Mass Index 22.07 kg/m2 (10/01/22 12:54 PM) Social History Social History Type Response Tobacco Former tobacco user Tobacco Use:. Started age 15.0 Years. Stopped age 15 Years. Sex Physician Outpatient Note * Lex Schofield MD: PERFORM, MODIFY, MODIFY, MODIFY, MODIFY, MODIFY, MODIFY, MODIFY Event Display: Office Clinic Note Physician Authored Date: [id number] ELEAZAR SORIANO :1950 Age:72 years Sex:Female Visit Date:10/01/2022 Primary Care Physician: MADAY GUTIÉRREZ Chief Complaint Additional Information 72-year-old, right-handed??woman??with?? past medical history diabetic peripheral neuropathy, hyperlipidemia, aortic insufficiency, EARLENE,??who presents to Neurology clinic at [facility] of concerns related to tremor and memory loss. Patient was??accompanied by Mr. Girish ross??. Additional information is obtained by reviewing available medical records.?? History of Present Illness ?? Patient mentioned that developed left hand tremor about a year ago that is progressively getting worse, she said that tremor happens at rest but also during action. She has not noticed that tremor isworse in any particular position. 6 months ago tremor also affected left leg. She has noticed that d ressing herself and feeding herself is difficult because of the tremor. She is walking slower and tends to fall, usually forward after tripping, and can hit her head without losing consciousness. Last fall was about a month ago.??Speech has changed,??it is softer and sometimes has word finding difficulties.??She has trouble swallowing both liquids and solids. She saw a speech therapist??but??onlyhad two sessions and intervention was discontinued for unknown reasons. She feels??constantly fatigued.??She feels stiff in occasions.? She thinks that her memory is getting worse for also a year, she forgets very easily. She forgets recent conversations and tend to ask same questions. agrees that also memory is progressively??getting worse. She also noticed having trouble concentrating,??especially??having trouble carryinga??long conversation. No trouble recognizing faces or objects.?? As said she has word finding with no paraphasic errors. Patient has had several MMSEs, last one per records scored 24/30 in Nov, 2021.? Few months ago, saw her once talking to someone when there is nobody in her house besides him. However, patient mentioned that she is not having any visual hallucinations. No presence, auditory??or passage hallucinations. No apparent delusions. She usually feel anxious, especially when is outside of home. No depression. She does not have a psychiatrist. PCP manages??psychotropics. ?? She sleeps about 6 hours,??however feels tired. Sleep is interrupted due to nocturia. She has daytime sleepiness and dozes off frequently.No apparent symptoms suggestive of RBD. ?? mentioned that over 10 years ago, she had an episode that she was confused and did not knowwhere she was and had??anterograde amnesia. Hours later??symptoms improved. No abnormal movements. Workup was unremarkable apparently.? She has never driven. ??has always managed finances.??He is??assisting with medications in the past year because she can forget to take them. She can still??do some cooking, laundry and cleaning. Per??patient and there is nothing that she has stopped doing completely because of??memory loss. Basic ADLs are intact. ? Review of Systems ?? The patient has no additional neurologic, psychiatric, head, ears, eyes, nose, throat, pulmonary, cardiovascular, gastrointestinal, musculoskeletal, skin, endocrine, renal, immunological, allergic, lymphoid, rheumatologic??and hematological symptoms other than those noted above Physical Exam General Physical Examination: ?? General:??well nourished, in no acute distress, appropriately groomed and dressed?? Skin: No rashes or lesions (full gowned exam not performed) Pulm:??Breathing comfortably on room air Cardiac:??RRR Abdomen:??soft, non-distended? Neurological Examination: ? Language/speech: Naming and repetition intact, fluent, follows 3-step commands??across midline?? Mental status: See below? Cranial Nerves: II: Pupils equal and reactive, no RAPD, no VF deficits III, IV, : EOM intact, no gaze preference or deviation, no nystagmus. V: normal sensation in V1, V2, and V3 segments bilaterally VII: no asymmetry, no nasolabial fold flattening,?? masked facies VIII: normal hearing to speech IX, X: normal palatal elevation, no uvular deviation XI: 5/5 head turn and 5/5 shoulder shrug bilaterally XII: midline tongue protrusion Motor: 5/5 muscle power in Rt shoulder abductors/adductors, elbow flexors/extensors, wrist flexors/extensors, finger abductors/adductors.?5/5 in Rt hipflexors/extensors, knee flexors/extensors, ankle dorsiflexors and planter flexors. ?? 5/5 muscle power in Lt shoulder abductors/adductors, elbow flexors/extensors, wrist flexors/extensors, finger abductors/adductors.?5/5 in Lt hipflexors/extensors, knee flexors/extensors, ankle dorsiflexors and planter flexors. ?? Bradykinesia??especially in left hand and leg. Mild rigidity in both upper extremities. ?? Reflexes:??2/4 throughout, bilateral flexor planter response, no Hall's, no clonus Sensory: Normal to light touch??in 4 extremities ?? No hemineglect, no extinction to double sided stimulation (visual & tactile) Romberg absent Coordination: Normal finger to nose and heel to choi,??mild??resting and action??tremor in left hand, no dysmetria Station:??Shuffling with decreased arm swing mostly in left hand. En bloc turning. Pull test was negative. ? Patient did not bring reading glasses so part of the cognitive testing was challenging for her. Dwarf Cognitive Assessment (MoCA):??12+03/23.?? ( One extra point added as less than 12 years of education) Trails-B?0/1 Cube Copy?0/1 Clock draw?0/3 Naming animals - 3/3 Memory registration? 2/5 and 4/5?? Memory recall? 0/5 -?additional correct with category cue 2 -?additional correct with multiple choice??3 Digit span forward of 5?1/1 Digit span backwards of 3?0/1 Continual Performance Task?1/1 with 0 errors of omission and 0 errors of commission?? Serial 7s?0/3 Sentence repetition?2/2 Generative fluency - 0/1,??5??F-words in 60 seconds Similarities?1/2 Orientation?5/6??( disoriented to date) ? Category Fluency Test:6 ??animals in 60 seconds ?? [employer] Accurately described all aspects of picture in a fluent and accurate manner. ?? Assessment/Plan 72-year-old, right-handed??woman??with?? past medical history diabetic peripheral neuropathy, hyperlipidemia, aortic insufficiency, EARLENE,??who presents to Neurology clinic at [facility] with possible idiopathic Parkinson's disease complicated by mild cognitive impairment ( howeverwith concerns progressing to dementia) manifested as progressive left hand and leg??resting and action tremor, bradykinesia, rigidity, mild postural instability (with recurrent falls), and shuffling gait as also evident on clinical exam. As mentioned she has progressive episodic memory loss but also executive dysfunction that yet has not affected completely her instrumental or basic ADLs, then isstill at mild cognitive impairment level still. Given the presentation of cognitive impairment within the same year of Parkinsonism with one event suggestive of visual hallucination, this is concerning for Lewy body disease which patholligically is the same as PD. Discuss starting a trial of Sinement to evaluate response, however importantly mentioned that may lead to hallucinations in case this is more LBD. ? 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 2) Parkinson's disease mild cognitive impairment ? Plan: ?? Start a trial of ??Sinemet 25/100 mg three times a day, educated on side effects especially nausea but also hallucinations. Obtain brain MRI without contrast to determine any pattern of atrophy, microvascular disease burdenor other lesion that can explain cognitive changes. Continue gabapentin 700 mg TID for now,??PCP may consider to??switch to duloxetine. Recommend?? PCP taper off paroxetine given anticholinergic properties than can worsen cognitive impairment, may consider to switch to escitalopram or duloxetine as described above. Recommend limit use of tramadol for pain as can worsen cognitive impairment Start trazodone 50 mg PRN for insomnia and worsening anxiety. ?? Referral to speech therapy for SPEAK OUT therapy and management of swallowing difficulties Referral to PT/OT for fall prevention Recommend limit use of tramadol for pain as can worsen cognitive impairment ? Return to clinic in??2 months Problem List/Past Medical History Ongoing Acquired hypothyroidism Action tremor Adhesions of vagina Amnesia Anemia Anemia due to unknown mechanism Aortic insufficiency Ascending aorta dilation Atrophy of vagina Balance problems Bilateral cataracts Bursitis Cervicalgia Closed head injury Decreased strength Degenerative joint disease Diabetic autonomic neuropathy Difficulty swallowing Disorder of thyroid gland Dizziness Drug therapy finding Feeling of lump in throat Fibromyositis Foot arch pain Frequent falls EARLENE (generalized anxiety disorder) Generally unsteady Globus sensation Hemorrhoids History of head injury Hyperlipidemia Hypomagnesemia Left knee pain Left leg weakness Left-sided chest pain Liver cirrhosis Low blood pressure Lumbar spondylolysis Memory deficit Muscle spasm Neuropathy Osteoarthritis of multiple joints Osteoporosis Other specified disorders of bone density and structure, other site Paresthesia of hand Periodontitis chronic, apical Pill rolling tremors Psoriasis Psoriatic arthritis Psoriatic arthritis Right shoulder pain Seizure disorder Senile osteopenia Shortness of breath Slow transit constipation Sore throat symptom Spinal stenosis Squamous cell carcinoma of vulva Thrombocytopenia Type 2 diabetes mellitus Ulnar neuropathy at elbow Urinary frequency UTI symptoms Vertigo Vitamin D deficiency Vitreous degeneration, bilateral Historical No qualifying data Medications aspirin 81 mg oral capsule, 81 mg= 1 cap, Oral, Daily calcium (as carbonate)-vitamin D3 600 mg-10 mcg (400 intl units) oral capsule, 1 cap, Oral, Daily famotidine 40 mg oral tablet, 40 mg= 1 tab, Oral Flovent HFA 110 mcg/inh inhalation aerosol, 2 puffs, Inhale, BID fluticasone propionate, 50 mcg, Nostril-Both, Daily Freestyle [employer] Test Strips, See instructions Glucometer, See instructions High Potency Vitamin D3 25 mcg (1000 intl units) oral capsule Januvia 100 mg oral tablet, 100 mg= 1 tab, Oral, Daily Levemir FlexTouch 100 units/mL subcutaneous solution, See Instructions levothyroxine 50 mcg (0.05 mg) oral capsule, 50 mcg= 1 cap, Oral, Daily lovastatin 40 mg oral tablet, 40 mg= 1 tab, Oral, Daily Mag-Tab SR 84 mg oral tablet, extended release, 84 mg= 1 tab, Oral metFORMIN 1000 mg oral tablet, 1000 mg= 1 tab, Oral Neurontin 100 mg oral capsule, 100 mg= 1 cap, Oral Neurontin 600 mg oral tablet, 600 mg= 1 tab, Oral Nitrostat 0.4 mg sublingual tablet, 0.4 mg= 1 tab, SL, PRN PARoxetine 20 mg oral tablet Paxil 20 mg oral tablet, 20 mg= 1 tab, Oral, Daily ProAir HFA 90 mcg/inh inhalation aerosol, 2 puffs, Inhale, every 4 hr, PRN traMADol 50 mg oral tablet, 50 mg= 1 tab, Oral, every 12 hr, PRN Allergies erythromycin??(Unknown) hydroxychloroquine??(Unknown) penicillin G benzathine??(Unknown) quiNINE??(severe thrombocytopenia) Social History Alcohol Past, Wine- Comments: once a year Electronic Cigarette/Vaping Electronic Cigarette Use: Never. Tobacco Former tobacco user Tobacco Use:. Started age 15.0 Years. Stopped age 15 Years. She was born and [place] in [place]. She lives with Mr. Girish Soriano and son Mr. Girish Soriano. is HCP and POA. She has 3 children. She has 5 grandchildren. 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 Highest academic achievement was 10th grade. She had some learning di fficulties at the time she was at school, however was not formally diagnosed. No history of developmental delay. She enjoys spending time with her grandchildren and walk in the nature. No history of recreational drugs. Family History Brother??had Parkinson's disease. ?? Attending Attestation Lex Lima MD Neurologist?? [facility]? I personally spent a total of 90 minutes??providing direct??care for this patient on the date of the encounter. Electronically Signed on 10/01/22 03:32 PM Lex Schofield MD Outpatient Summary note * Yoly Leiva: PERFORM Event Display: Ambulatory Patient Summary Authored Date: [id number] ELEAZAR SORIANO :1950 Age:72 years Sex:Female Visit Date:10/01/2022 Primary Care Physician: MADAY GUTIÉRREZ Ambulatory Visit Instructions We would like to thank you for allowing us to assist you with your healthcare needs. The following includes patient education materials and information regarding your injury/illness. Your Next Steps Instructions From Your Care Team It was a pleasure seeing you today Ms. Soriano. I suspect you may have Parkinson's disease and cognitive impairment from this condition as well. Here are my recommendations: ? Start a trial of ??Sinemet 25/100 mg three times a day ( Please take 1 hour before meals, do not take it with high protein content meals) Obtain brain MRI without contrast?? Continue gabapentin 700 mg TID for now,??PCP may consider to??switch to duloxetine. Recommend?? PCP taper off paroxetine??as can worsen cognitive impairment, may consider to switch escitalopram or duloxetine as described above. Recommend limit use of tramadol for pain as can worsen cognitive impairment Start trazodone 50 mg??as needed??for insomnia and worsening anxiety. ?? Referral to speech therapy Referral to PT/OT for fall prevention Recommend limit use of tramadol for pain as can worsen cognitive impairment ?? Return to clinic in??2 months ?? Please call me if you have any questions or concerns. Medications What How Much When Why Instructions New carbidopa-levodopa (Sinemet 25 mg-100 mg oral tablet) 1 tab Oral (given by mouth) 3 times a day Parkinsonism Mild cognitive impairment Refills: 1 Printed Prescription Unchanged albuterol (ProAir HFA 90 mcg/ inh inhalation aerosol) 2 Puffs Inhale (breathe in) Every 4 hours as needed for as needed for wheezing Unchanged aspirin (aspirin 81 mg oral capsule) 1 Capsules Oral (given by mouth) Every day Unchanged calcium-vitamin D (calcium (as carbonate)-vitamin D3 600 mg-10 mcg (400 intl units) oral capsule) 1 Capsules Oral (given by mouth) Every day Unchanged cholecalciferol (High Potency Vitamin D3 25 mcg (1000 intl units) oral capsule) Unchanged Durable Medical Equipment for Prescription (Glucometer) See instructions Please provide glucometer that is covered by insurance ?Test blood glucosetwice daily ?? Unchanged famotidine (famotidine 40 mg oral tablet) 1 tab Oral (given by mouth) TAKE ONE TABLET BY MOUTH TWICE A DAY WITH MEALS ?? Unchanged fluticasone (Flovent HFA 110 mcg/ inh inhalation aerosol) 2 Puffs Inhale (breathe in) 2 times a day twice a day by mouth ?? Unchanged fluticasone (fluticasone propionate) 50 Micrograms Nostril-Both Every day Unchanged Freestyle [employer]x Test Strips See instructions Unchanged gabapentin (Neurontin 100 mg oral capsule) 1 Capsules Oral (given by mouth) 3 x a day ?? Unchanged gabapentin (Neurontin 600 mg oral tablet) 1 tab Oral (given by mouth) 3 x a day ?? Unchanged insulin detemir (Levemir FlexTouch 100 units/ mL subcutaneous solution) See instructions inject 15 units in the AM and 12 units in the PM ?? Unchanged levothyroxine (levothyroxine 50 mcg (0.05 mg) oral capsule) 1 Capsules Oral (given by mouth) Every day Unchanged lovastatin (lovastatin 40 mg oral tablet) 1 tab Oral (given by mouth) Every day take at night ?? Unchanged magnesium lactate (Mag-Tab SR 84 mg oral tablet, extended release) 1 tab Oral (given by mouth) twice a day 84 mg at noon 84 mg at bedtime ?? Unchanged metFORMIN (metFORMIN 1000 mg oral tablet) 1 tab Oral (given by mouth) twice a day ?? Unchanged nitroglycerin (Nitrostat 0.4 mg sublingual tablet) 1 tab Sublingual (dissolve under the tongue) As needed for as needed for chest pain UNDER TONGUE Call 911 after first dose 3X MAX DOSAGE ?? Unchanged PARoxetine (PARoxetine 20 mg oral tablet) 3 EA, 0 Refill(s), TAKE ONE TABLET BY MOUTH EVERY DAY ?? Unchanged PARoxetine (Paxil 20 mg oral tablet) 1 tab Oral (given by mouth) Every day BY MOUTH ?? Unchanged SITagliptin (Januvia 100 mg oral tablet) 1 tab Oral (given by mouth) Every day Unchanged traMADol (traMADol 50 mg oral tablet) 1 tab Oral (given by mouth) Every 12 hours as needed for as needed for pain twice a day DO NOT EXCEED 2 TABS ?? Your Summary Your Diagnosis Parkinsonism Mild cognitive impairment Problems Ongoing - Any problem that you are currently receiving treatment for. Acquired hypothyroidism Action tremor Adhesions of vagina Amnesia Anemia Anemia due to unknown mechanism Aortic insufficiency Ascending aorta dilation Atrophy of vagina Balance problems Bilateral cataracts Bursitis Cervicalgia Closed head injury Decreased strength Degenerative joint disease Diabetic autonomic neuropathy Difficulty swallowing Disorder of thyroid gland Dizziness Drug therapy finding Feeling of lump in throat Fibromyositis Foot arch pain Frequent falls EARLENE (generalized anxiety disorder) Generally unsteady Globus sensation Hemorrhoids History of head injury Hyperlipidemia Hypomagnesemia Left knee pain Left leg weakness Left-sided chest pain Liver cirrhosis Low blood pressure Lumbar spondylolysis Memory deficit Muscle spasm Neuropathy Osteoarthritis of multiple joints Osteoporosis Other specified disorders of bone density and structure, other site Paresthesia of hand Periodontitis chronic, apical Pill rolling tremors Psoriasis Psoriatic arthritis Psoriatic arthritis Right shoulder pain Seizure disorder Senile osteopenia Shortness of breath Slow transit constipation Sore throat symptom Spinal stenosis Squamous cell carcinoma of vulva Thrombocytopenia Type 2 diabetes mellitus Ulnar neuropathy at elbow Urinary frequency UTI symptoms Vertigo Vitamin D deficiency Vitreous degeneration, bilateral Your Care Team Attending Physician - Lex Schofield MD Primary Care Physician - MADAY GUTIÉRREZ Referring Physician - MADAY GUTIÉRREZ Discharge Vitals Heart Rate??(Peripheral) 96 Blood Pressure?? 130/82?? Height?? 61.00 in (154.94 cm) Weight?? 116.82 lb (52.98 kg) BMI?? 22.07 Allergies erythromycin??(Unknown) hydroxychloroquine??(Unknown) penicillin G benzathine??(Unknown) quiNINE??(severe thrombocytopenia) Electronically Signed on: 10/01/2022 14:53 EDTSigned by:ADY Patient Care team information Care Team Personnel Name: MADAY GUTIÉRREZ Position: No Access Member Role: Primary Care Physician Address: Address: [address] [place] [address]- [place]
--- OUTSIDE RECORDS SUMMARY | 2022-12-23 16:20 | XMS_ITS | Continuity of Care Document ---
Author Name Unknown Address [address] [place] [address] Phone [facility] Pract[facility] Address [address] [place] [address] Phone Care Team Providers Care Shearer Helper Name Role Phone LUIS Galvan Primary Care Provider [phone] JAMA Greenwood Attending Provider FLEX Jovel Attending Provider [phone] Care Teams Patient Care Team Team Status: Active Member Role Status Varinder Galvan NP Primary Care Provider Active Patient Care Team Team Status: Active Member Role Status Varinder Galvan NP Primary Care Provider Active Nessa Greenwood CMA Attending Provider Active Patient Care Team Team Status: Inactive Member Role Status Varinder Galvan NP Primary Care Provider, Referring Provid er Active Annalisa Narvaez DPM Attending Provider Active Chief Complaint and Reason for Visit Chief Complaint Amb Documentation pain in unspecified foot Allergies, Adverse Reactions, Alerts Allergen Type Severity Reaction Last Updated Verified Status quinine Allergy Severe Unknown October 3:00pm Yes Active erythromycin base Allergy Mild Unknown Sept er 2022 3:00pm Yes Active hydroxychloroquine Allergy Mild Unknown Septem mike 2022 3:00pm Yes Active Penicillins Allergy Mild Unknown October 3:00pm Yes Active sulfasalazine Allergy Mild Unknown October 232022 3:00pm Yes Active Social History Smoking Status Unknown if ever smoked Additional Data Assigned Sex Female Problems Active Problems Medical Problem Onset Date Status Cataracts, bilateral Active Foot pain Active Vitreous degeneration, bilateral Active Diabetic peripheral neuropat hy associated with type 2 diabetes mellitus 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 Diabetic neuropathy Active Onychomycosis Active SOB (shortness of breath) Active Dizziness Active Acquired deformity joint foot Ac tive Osteoporosis Active Lumbar spondylitis Active Anxiety Active Aortic insufficiency Active Psoriatic arthritis Active Gait difficulty Active Hypothyroid Active Cirrhosis of liver Active Paresthesia of both hands Active Leg weakness Active Neuropathy Active Spinal stenosis Active Tremor Active Squamous cell carcinoma of vulva Active Pain in toes of both feet Active Frequent falls Active Knee pain Active Inactive/Resolved Problems Medical Problem Onset Date Status Hx of head injury Resolved Difficulty swallowing Resolved Hx: UTI (urinary tract infection) Resolved Chest pain Resolved Medications Medication Status Dose Units Route Directions Qty Days St art Date End Date Instructions Cholecalcifero l (Vitamin D3) (Vitamin D3) 25 mcg (1,000 unit) capsule Active 25 MCG PO daily September 09, 2022 12:00a m Albuterol Sulfate (Proair Hfa) 90 mcg/actuation HFA aerosol inhaler Active 2 PUFF INHALATIO N Q6H September 09, 2022 12:00a m Fluticasone Propionate Active 2 SPRAY NASALLY daily September 09, 2022 12:00a m administer into each nostril Aspirin Active 81 MG PO daily September 09, 2022 12:00a m Fluticasone Propionate (Flovent Hfa) 110 mcg/actuation HFA aerosol inhaler Active 2 PUFF INHALATIO N 2 times per day September 09, 2022 12:00a m Nitroglycerin (Nitrostat) 0.4 mg tablet, sublingual Active 0.4 MG SL Once September 09, 2022 12:00a m as a single dose; administer 5-10 minutes before situation known to precipitate angina attack Paroxetine Hcl (Paxil) 20 mg tablet Active 20 MG PO daily September 09, 2022 12:00a m Gabapentin (Neurontin) 600 mg tablet Active 600 MG PO 3 times per day September 09, 2022 12:00a m Lovastatin Active 40 MG PO Daily in the Evening September 09, 2022 12:00a m Magnesium L-Lactate (Magtab) 84 mg tablet extended release Active 84 MG PO 2 times per day September 09, 2022 12:00a m Calcium Carb-Vitamin D3-Vit K2 Active TAB PO September 09, 2022 12:00a m Gabapentin (Neurontin) 100 mg capsule Active 100 MG PO 3 times per day September 09, 2022 12:00a m Metformin Active 1000 MG PO 2 times pe r day September 09, 2022 12:00a m Levothyroxine Active 50 MCG PO daily Aug 12:00a m Tramadol Active 50 MG PO 2 times pe r day September 09, 2022 12:00a m Famotidine Active 40 MG PO 2 times p er day September 09, 2022 12:00a m Insulin Detemir U-100 (Levemir Flexpen) 100 unit/mL (3 mL) insulin pen Active 15 UNIT SC .QAM, QPM September 09, 2022 12:00a m Sitagliptin Phosphate (Januvia) 100 mg tablet Active 100 MG PO daily September 09, 2022 12:00a m Vital Signs Vital Reading Result Reference Range Collection Date/Time Height 61 [in_i] November 03, 2022 3:02pm Weight 114.00 [lb_av] October 3:02pm Heart Rate 91 /min 60-100 November 03, 2022 3:02pm Respiratory rate 16 /min -October 232022 3:02pm Oxygen saturation by Pulse oximetry 94 % 92-100 November 03, 2022 3:02pm BP Systolic 102 mm[Hg] 90-130 November 03, 2022 3:02pm BP Diastolic 66 mm[Hg] 70-80 November 03, 2022 3:02pm BMI (Body Mass Index) 21.5 kg/m2 2022 3:02pm Insurance Providers Guarantor ELEAZAR SORIANO Address [address] [place] [id number] Contact Info. Home Phone: Payer Policy Id Coverage Id Subscriber's Name Subscriber Id Effective Date Expiration Date MEDICARE [id number] ELEAZAR SORIANO [id number] Encounters Encounter Location(s) Arrival/Admit Date Discharge/Depart Date Provider(s) Non-patient / Non-visit [facility] Practices-[facility] Nonvisit September 09, 2022 11:15am null Departed Physician/Prov ider Office Visit [facility] Podiatry [facility] November 03, 2022 2:49pm November 03, 2022 3:23pm Jared Narvaez DPM
--- OUTSIDE RECORDS SUMMARY | 2022-12-23 16:20 | XMS_ITS | Continuity of Care Document ---
Author Name Unknown Organization [facility] Address [address] [place] [address] Care Team Providers Care Pharmacy Helper Name Role Phone MADAY GUTIÉRREZ Primary Care Physician Encounter [facility] NBR [id number] Date(s): 12/02/22 - 12/02/22 [facility] [address] [place] [address] Encounter Diagnosis Parkinsonism(Discharge Diagnosis) - 12/02/22 MCI (mild cognitive impairment)(Discharge Diagnosis) - 12/02/22 Discharge Disposition: Home or Self Care Attending Physician: Lex Schofield MD Referring Physician: MADAY GUTIÉRREZ Allergies, Adverse Reactions, Alerts Substance Reaction Severity Status erythromycin Unknown Unknown Active hydroxychloroquine Unknown Unknown Active quiNINE severe thrombocytopenia Unknown Acti ve penicillin G benzathine Unknown Unknown Acti ve Assessment and Plan Future [...] Range]: 1 Peripheral Pulse Rate [60-100 bpm] 94 bp m (12/02/22 11: AM) Blood Pressure [90-140/60-90 mmHg] 99/59 mmHg (12/02/22 AM) Weight 51.44 kg (12/02/22 AM) Weight Measured (lbs) 113.406 lb (12/02/22 AM) [place] Body Weight Calculated 47.8 kg (12/02/22 AM) Height 154.94 cm (12/02/22 AM) Height/Length Measured (inches) 61 inch (12/02/22 AM) BSA Measured 1.49 m2 (12/02/22 AM) Body Mass Index 21.43 kg/m2 (12/02/22 AM) Social History Social History Type Response Tobacco Former tobacco user Tobacco Use:. Started age 15.0 Years. Stopped age 15 Years. Sex Physician Outpatient Note * Lex Schofield MD: PERFORM Event Display: Office Clinic Note Physician Authored Date: [id number] ELEAZAR SORIANO :1950 Age:72 years Sex:Female Visit Date:12/02/2022 Primary Care Physician: MADAY GUTIÉRREZ Chief Complaint Additional Information Follow-up of parkinsonism/MCI History of Present Illness ?? Interval history: ? Patient?? is with grandson Mr. Bryan Soriano. ?? Cognitive: No changes, she still thinks that forgets easily. Had only one visit with speech therapy. ? Neuropsychiatry: Better. Apparently paroxetine was switched to another antidepressant but is unsure. No visuall hallucinations. No delusions. ?? Motor: She thinks Sinemet has been helpful, apparently balance is better. She did some PT but stopped as felt that was not necessary. ?? Sleep: Improved after trazodone. ?? No changes in ADLs. ? Physical Exam Vitals & Measurements HR:??94??(Peripheral)?? BP:??99/59?? HT:??154.94??cm?? WT:??51.44??kg?? BMI:??21.43?? BSA:??1.49?? General Physical Examination: ?? General:??well nourished, in [...] with decreased arm swing mostly in left hand ( Improved compared to last visit). En bloc turning. Pull test was negative. ?? Assessment/Plan Impression: ?? 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 2) Parkinson's disease mild cognitive impairment ?? Motor symptoms have improved after starting Sinemet, no side effects so far. Memory with no furtherdecline. No changes in ADLs.?? Sleep after starting trazodone. ?? Plan: ?? Continue??Sinemet 25/100 mg three times a day, educated on side effects especially nausea but also hallucinations. Continue gabapentin 700 mg TID for now,??PCP may consider to??switch to duloxetine. Recommend?? PCP taper off paroxetine given anticholinergic properties than can worsen cognitive impairment, may consider to switch to escitalopram or duloxetine as described above. Recommend limit use of tramadol for pain as can worsen cognitive impairment Continue trazodone 50 mg PRN for insomnia and worsening anxiety.? Continue speech therapy for SPEAK OUT therapy and management of swallowing difficulties Continue ??PT/OT for fall prevention Recommend limit use of tramadol for pain as can worsen cognitive impairment ? Return to clinic in??4 months Problem List/Past Medical History Ongoing Acquired [...] 2 puffs, Inhale, every 4 hr, PRN Sinemet 25 mg-100 mg oral tablet, 1 tab, Oral, TID Sinemet 25 mg-100 mg oral tablet, 1 tab, Oral, TID, 1 refills traMADol 50 mg oral tablet, 50 mg= 1 tab, Oral, every 12 hr, PRN traZODone 50 mg oral tablet, 25 mg= 0.5 tab, Oral, As Directed, PRN Allergies erythromycin??(Unknown) hydroxychloroquine??(Unknown) penicillin G benzathine??(Unknown) quiNINE??(severe thrombocytopenia) Social History Alcohol Past, Wine- Comments: once a year Electronic Cigarette/Vaping Electronic Cigarette Use: Never. Tobacco Former tobacco user Tobacco Use:. Started age 15.0 Years. Stopped age 15 Years. Attending Attestation Lex Lima MD Neurologist?? [facility]? I personally spent a total of??45 minutes??providing direct??care for this patient on the date of the encounter.?? Electronically Signed on 12/02/22 12:26 PM Lex Schofield MD Patient Care team information Care Team Personnel Name: MADAY GUTIÉRREZ Position: No Access Member Role: Primary Care Physician Address: Address: [address] [place] [address]- Care Team Related Persons Name: VENUS SORIANO
--- OUTSIDE RECORDS SUMMARY | 2022-12-23 16:20 | XMS_ITS | Continuity of Care Document ---
Author Name Unknown Organization [facility] Address [address] [place] [address] Care Team Providers Care Poultry Inspector Name Role Phone MADAY GUTIÉRREZ Primary Care Physician Encounter [facility] NBR [id number] Date(s): 10/12/22 - 10/12/22 [facility] [address] [place], [place] [address] Discharge Disposition: Home Allergies, Adverse Reactions, Alerts Substance Reaction Severity Status erythromycin Unknown Unknown Active hydroxychloroquine Unknown Unknown Active penicillin G benzathine Unknown Unknown Acti ve quiNINE severe thrombocytopenia Unknown Acti ve Assessment and Plan Future Appointments Future Scheduled Tests Radiology* MRI Brain w/o Contrast 10/15/22 Medications aspirin 81 mg oral capsule 81 [...] 270 tab, 0 Refill(s), Pharmacy: [facility] Start Date: 10/13/22 Status: Ordered Sinemet 25 mg-100 mg oral tablet 1 tab, Oral, TID, # 90 tab, 1 Refill(s), Pharmacy: [facility] Start Date: 10/01/22 Status: Ordered traMADol 50 mg oral tablet 50 mg = 1 tab, Oral, every 12 hr, PRN as needed for pain, twice a day DO NOT EXCEED 2 TABS Start Date: 09/28/22 Status: Ordered traZODone 50 mg oral tablet 25 mg = 0.5 tab, Oral, As Directed, PRN insomnia, Insomnia and/or severe anxiety, # 90 tab, 0 Refill(s), Pharmacy: [facility] Start Date: 10/01/22 Status: Ordered Problem List [...] Care team information Care Team Personnel Name: MARTÍNEZValerieMADAY Position: No Access Member Role: Primary Care Physician Address: Address: [facility] [place] [place] [address]- [place]
--- OUTSIDE RECORDS SUMMARY | 2022-12-23 16:20 | XMS_ITS | Continuity of Care Document ---
Author Name Unknown Organization [facility] Address [address] [place] [address] Care Team Providers Care Key Account Representative Name Role Phone MADAY GUTIÉRREZ Primary Care Physician Encounter [facility] NBR [id number] Date(s): 10/01/22 - 10/01/22 [facility] [address] [place], [place] [address] Discharge Disposition: Home Allergies, Adverse [...] TID, # 90 tab, 1 Refill(s), Pharmacy: [facility] Start Date: 10/01/22 Status: Ordered traMADol 50 mg oral tablet 50 mg = 1 tab, Oral, every 12 hr, PRN as needed for pain, twice a day DO NOT EXCEED 2 TABS Start Date: 09/28/22 Status: Ordered traZODone 50 mg oral tablet 25 mg = 0.5 tab, Oral, As Directed, PRN insomnia, Insomnia and/or severe anxiety, # 90 tab, 0 Refill(s), Pharmacy: [facility] Start Date: 10/01/22 Status: Ordered Problem List [...] Member Role: Primary Care Physician Address: Address: [address] [place] [address]
--- OUTSIDE RECORDS SUMMARY | 2022-12-23 16:20 | XMS_ITS | Continuity of Care Document ---
Author Name Unknown Organization [facility] Address [address] [place] [address] Care Team Providers Care Heel Seam Rubber Name Role Phone MADAY GUTIÉRREZ Primary Care Physician Encounter [facility] NBR [id number] Date(s): 10/19/22 - 10/19/22 [facility] Clin[facility] [address] [place], [place] [address] Discharge Disposition: Home Allergies, Adverse [...] TID, # 270 tab, 0 Refill(s), Pharmacy: [facility] Start Date: 10/13/22 Status: Ordered Sinemet 25 mg-100 mg oral tablet 1 tab, Oral, TID, # 90 tab, 1 Refill(s), Pharmacy: [facility] Start Date: 10/01/22 Status: Ordered traMADol 50 mg oral tablet 50 mg = 1 tab, Oral, every 12 hr, PRN as needed for pain, twice a day DO NOT EXCEED 2 TABS Start Date: 09/28/22 Status: Ordered traZODone 50 mg oral tablet 25 mg = 0.5 tab, Oral, As Directed, PRN insomnia, Insomnia and/or severe anxiety, # 90 tab, 0 Refill(s), Pharmacy: [facility] Start Date: 10/01/22 Status: Ordered Problem List [...] Member Role: Primary Care Physician Address: Address: [address] [place] [address]- Care Team Related Persons Name: VENUS SORIANO
[2022-12-23 20:39] LABS: Anion Gap 13.2 mmol/L (3-11); BUN 14 mg/dL (7-18); CO2 23.8 mmol/L (21.0-32.0); CREATININE 0.8 mg/dL (0.55-1.02); Calcium 10.4 mg/dL (8.5-10.1); Chloride 104 mmol/L (98-107); Estimated GFR 77.75 (mL/min/1.73m2); Ferritin 9 ng/mL (8-252); Glucose 151 mg/dL (74-106); Potassium 4.3 mmol/L (3.5-5.1); Sodium 141 mmol/L (136-145)
== END 2022-12-23 16:16 | disposition home or self-care (01) ==
LOC: NCHCN 16:15
PROVIDERS: PCP Family Medicine; Visit Provider Nurse Practitioner Family
DX: E11.40 Type 2 diabetes mellitus with diabetic neuropathy, unspecified (principal); G20.C Parkinsonism, unspecified
CPT/HCPCS: 80048; 82728; 83735

== ENCOUNTER 2023-02-10 04:46 | Outpatient (CLI) | payer MEDICARE, SELFPAY ==
[2023-02-10 12:44] LABS: Abs Immature Grans 0.03 10^3/uL (0.0-0.06); Absolute Basophil Count 0.08 10^3/uL (0.0-0.2); Absolute Eosinophil Count 0.52 10^3/uL (0.0-0.7); Absolute Lymphocyte Count 1.16 10^3/uL (1.2-3.4); Absolute Monocyte Count 0.46 10^3/uL (0.1-0.8); Absolute Neutrophil Count 3.33 10^3/uL (1.2-6.7); Basophils % 1.4; Eosinophils % 9.3; HCT 38.4 % (36.0-46.0); HGB 11.3 g/dL (11.2-15.7); Immature Grans % 0.5; Lymphocytes % 20.8; MCH 23.6 pg (27.0-33.0); MCHC 29.4 % (32.0-36.0); MCV 80 fL (80-95); MPV 9.6 fL (8.0-11.0); Monocytes % 8.2; Neutrophils % 59.8; Platelet Count 104 10^3/uL (130-400); RBC 4.78 10^6/uL (3.93-5.22); RDW 19.8 % (11.7-14.6); RDW-SD 49.8 fL; WBC 5.58 10^3/uL (4.4-10.8)
[2023-02-10 13:11] LABS: INR 1.1 (0.9-1.1); Prothrombin Time 10.8 sec (9.1-11.1)
[2023-02-10 13:48] LABS: ALT 13 U/L (14-59); AST 27 U/L (15-37); Albumin 4.3 g/dL (3.4-5.0); Alkaline Phosphatase 63 U/L (46-116); Anion Gap 10.6 mmol/L (3-11); BUN 10 mg/dL (7-18); Bilirubin, Total 0.3 mg/dL (0.2-1.0); CO2 26.4 mmol/L (21.0-32.0); CREATININE 0.8 mg/dL (0.55-1.02); Calcium 9.9 mg/dL (8.5-10.1); Chloride 103 mmol/L (98-107); Estimated GFR 77.75 (mL/min/1.73m2); Glucose 167 mg/dL (74-106); Potassium 3.7 mmol/L (3.5-5.1); Sodium 140 mmol/L (136-145); Total Protein 9.3 g/dL (6.4-8.2)
[2023-02-11 19:20] LABS: Beta-CrossLaps (B-CTx) 154 pg/mL
== END 2023-02-10 04:47 | disposition home or self-care (01) ==
LOC: LBO 04:46
PROVIDERS: PCP Family Medicine; Visit Provider Nurse Practitioner Adult Health
DX: K74.60 Unspecified cirrhosis of liver (principal); M81.0 Age-related osteoporosis without current pathological fracture
CPT/HCPCS: 36415; 80053; 82523; 85025; 85610

== ENCOUNTER → 2023-02-12 00:51 | Outpatient (CLI) | payer MEDICARE, SELFPAY ==
--- NOTE | 2023-02-12 | DI.US_ITS ---
Exam(s) US ABDOMEN LIMITED EXAM: US ABDOMEN LIMITED CLINICAL HISTORY: HEPATIC CIRRHOSIS K74.60 TECHNIQUE: Ultrasound abdomen performed using standard protocol. COMPARISON: US US ABDOMEN from 07/28/2019 US US ABDOMEN LIMITED HEPATOLOGY PROTOCOL from 09/11/2021 FINDINGS: PANCREAS: Normal where visualized. LIVER: The liver has a coarsened echotexture. No discrete mass is identified. Hepatopetal flow in t he Portal Vein. The liver has a nodular contour. The liver measures in 17.1 cm length. GALLBLADDER: No evidence of cholelithiasis. No evidence of wall thickening. No pericholecystic fluid identified. BILIARY SYSTEM: Common bile duct measures < 7 mm. No intrahepatic biliary ductal dilation. GRUBER'S SIGN: Negative. RIGHT KIDNEY: Kidney is normal in size. There is a 6 mm echogenic focus in the right kidney consiste nt with a nonobstructing stone. No evidence of hydronephrosis. No renal mass or cyst identified. ASCITES: None seen. IMPRESSION: 1. Coarsened echotexture of the liver with a nodular contour consistent with hepatic cirrhosis. 2. No ascites. DATA REPOSITORY:
--- OUTSIDE RECORDS SUMMARY | 2023-02-12 00:53 | XMS_ITS | Continuity of Care Document ---
Author Name Unknown Address [address] [place] [address] Phone [facility] Pract[facility] Address [address] [place] [address] Phone Care Team Providers Care Rn Transport Name Role Phone LUIS Galvan Primary Care Provider [phone] FLEX Narvaez Attending Provider Care Teams Patient Care Team Team Status: Active Member Role Status Varinder Galvan NP Primary Care Provider Active Patient Care Team Team Status: Inactive Member Role Status Dates Maricarmen Galvan NP Primary Care Provide r, Referring Provider Active Start: February 10, 2023 End: February 10, 2023 Annalisa Narvaez DPM Attending Provider Active St art: February 10, 2023 End: February 10, 2023 Chief Complaint and Reason for Visit Chief Complaint 3 MO FOLLOW UP Allergies, Adverse Reactions, Alerts Allergen Type Severity Reaction Last Updated Verified Status quinine Allergy Severe Unknown February 10, 2023 2:44pm Yes Active erythromycin base Allergy Mild Unknown Decembe r 2022 2:44pm Yes Active hydroxychloroquine Allergy Mild Unknown Dece er 2022 2:44pm Yes Active Penicillins Allergy Mild Unknown January 2:44pm Yes Active sulfasalazine Allergy Mild Unknown February 102022 2:44pm Yes Active Social History Smoking Status Unknown [...] capsule Active 25 MCG PO daily September 08, 2022 11:00p m Albuterol Sulfate (Proair Hfa) 90 mcg/actuation HFA aerosol inhaler Active 2 PUFF INHALATIO N Q6H September 08, 2022 11:00p m Fluticasone Propionate Active 2 SPRAY NASALLY daily September 08, 2022 11:00p m administer into each nostril Aspirin Active 81 MG PO daily September 08, 2022 11:00p m Fluticasone Propionate (Flovent Hfa) 110 mcg/actuation HFA aerosol inhaler Active 2 PUFF INHALATIO N 2 times per day September 08, 2022 11:00p m Nitroglycerin (Nitrostat) 0.4 mg tablet, sublingual Active 0.4 MG SL Once September 08, 2022 11:00p m as a single dose; administer 5-10 minutes before situation known to precipitate angina attack Paroxetine Hcl (Paxil) 20 mg tablet Active 20 MG PO daily September 08, 2022 11:00p m Gabapentin (Neurontin) 600 mg tablet Active 600 MG PO 3 times per day September 08, 2022 11:00p m Lovastatin Active 40 MG PO Daily in the Evening September 08, 2022 11:00p m Magnesium L-Lactate (Magtab) 84 mg tablet extended release Active 84 MG PO 2 times per day September 08, 2022 11:00p m Calcium Carb-Vitamin D3-Vit K2 Active TAB PO September 08, 2022 11:00p m Gabapentin (Neurontin) 100 mg capsule Active 100 MG PO 3 times per day September 08, 2022 11:00p m Metformin Active 1000 MG PO 2 times pe r day September 08, 2022 11:00p m Levothyroxine Active 50 MCG PO daily Mohinder y 2022 11:00p m Tramadol Active 50 MG PO 2 times pe r day September 08, 2022 11:00p m Famotidine Active 40 MG PO 2 times p er day September 08, 2022 11:00p m Insulin Detemir U-100 (Levemir Flexpen) 100 unit/mL (3 mL) insulin pen Active 15 UNIT SC .QAM, QPM September 08, 2022 11:00p m Sitagliptin Phosphate (Januvia) 100 mg tablet Active 100 MG PO daily September 08, 2022 11:00p m Vital Signs Vital Reading Result Reference Range Collection Date/Time Height 61 [in_i] February 10, 2023 2:45pm Weight 114.00 [lb_av] January 2:45pm Body Temperature 98 [degF] 97.6-99.6 February 102022 2:45pm Heart Rate 69 /min 60-100 February 10, 2023 2:45pm Respiratory rate 18 /min 12-18 February 102022 2:45pm BP Systolic 110 mm[Hg] 90-130 February 10, 2023 2:45pm BP Diastolic 74 mm[Hg] 70-80 February 10, 2023 2:45pm BMI (Body Mass Index) 21.5 kg/m2 [facility] 2022 2:45pm Insurance Providers Guarantor ELEAZAR SORIANO Address [address] [facility] [address] Contact Info. Home Phone: Payer Policy Id Coverage Id Subscriber's Name Subscriber Id Effective Date Expiration Date MEDICARE [id number] ELEAZAR SORIANO [id number] Encounters Encounter Location(s) Arrival/Admit Date Discharge/Depart Date Provider(s) Departed Physician/Prov ider Office Visit [facility] Pod[facility] February 10, 2023 2:40pm February 10, 2023 3:05pm Jared Narvaez DPM
== END ==
PROVIDERS: PCP Nurse Practitioner Family; Visit Provider Nurse Practitioner Adult Health
DX: K74.60 Unspecified cirrhosis of liver (principal)
CPT/HCPCS: 76705

== ENCOUNTER 2023-04-01 02:09 | Outpatient (CLI) | payer MEDICARE, SELFPAY ==
[2023-04-01 12:29] LABS: Abs Immature Grans 0.01 10^3/uL (0.0-0.06); Absolute Basophil Count 0.07 10^3/uL (0.0-0.2); Absolute Eosinophil Count 1.25 10^3/uL (0.0-0.7); Absolute Lymphocyte Count 1.67 10^3/uL (1.2-3.4); Absolute Monocyte Count 0.52 10^3/uL (0.1-0.8); Absolute Neutrophil Count 2.34 10^3/uL (1.2-6.7); Basophils % 1.2; Eosinophils % 21.3; HCT 42.5 % (36.0-46.0); Immature Grans % 0.2; Lymphocytes % 28.5; MCH 28.9 pg (27.0-33.0); MCHC 32.9 % (32.0-36.0); MCV 88 fL (80-95); MPV 9.7 fL (8.0-11.0); Monocytes % 8.9; Neutrophils % 39.9; RBC 4.84 10^6/uL (3.93-5.22); RDW 21.7 % (11.7-14.6); RDW-SD 68.2 fL; WBC 5.86 10^3/uL (4.4-10.8)
[2023-04-01 12:44] LABS: INR 1.1 (0.9-1.1); Prothrombin Time 11.1 sec (9.1-11.1)
[2023-04-01 12:45] LABS: Anisocytosis 1+; Platelet Count 78 10^3/uL (130-400)
[2023-04-01 13:21] LABS: ALT 14 U/L (14-59); AST 20 U/L (15-37); Albumin 3.9 g/dL (3.4-5.0); Alkaline Phosphatase 45 U/L (46-116); Anion Gap 9.6 mmol/L (3-11); BUN 15 mg/dL (7-18); Bilirubin, Total 0.5 mg/dL (0.2-1.0); CO2 28.4 mmol/L (21.0-32.0); CREATININE 0.9 mg/dL (0.55-1.02); Calcium 10.4 mg/dL (8.5-10.1); Chloride 103 mmol/L (98-107); Ferritin 58 ng/mL (8-252); Glucose 196 mg/dL (74-106); Potassium 3.7 mmol/L (3.5-5.1); Sodium 141 mmol/L (136-145); Total Protein 8.2 g/dL (6.4-8.2)
== END 2023-04-01 02:10 | disposition home or self-care (01) ==
PROVIDERS: PCP Family Medicine; Visit Provider Nurse Practitioner Adult Health
DX: K74.60 Unspecified cirrhosis of liver (principal); D50.9 Iron deficiency anemia, unspecified
CPT/HCPCS: 36415; 80053; 82728; 85025; 85610

== ENCOUNTER → 2023-06-30 01:51 | Outpatient (CLI) | payer MEDICARE, SELFPAY ==
--- NOTE | 2023-06-30 15:05 | DI.RAD_ITS ---
Exam(s) RF MODIFIED SPEECH BA SWALLOW TECHNIQUE: Modified barium swallow was performed in conjunction with speech pathology. CONTRAST MATERIAL: Multiple consistencies of oral barium contrast were administered. COMPARISON: No exams were available for comparison FINDINGS: Flash laryngeal penetration with thin barium. No penetration or aspiration with other consistencies. Prominent cricopharyngeus impression. Mild piriform residue. Barium tablet became briefly lodged in the piriform sinuses but passed into stomach on 2nd swallow. Tertiary contractions noted in the distal esophagus. Speech pathology report to follow. IMPRESSION: Flash laryngeal penetration with thin barium. RADIATION DOSE DELIVERED: evan Alanis=7.84 mGy
[2023-06-30] MEDS: Barium Sulfate 40% W/V 240 ML BTL PO (15:09)
[2023-06-30] MEDS: Barium Sulfate 81% w/w for Oral Suspension 148 GM BTL PO (15:10)
[2023-06-30] MEDS: Barium Sulfate Oral Paste 40% W/V 230 ML TUBE PO (15:11)
[2023-06-30] MEDS: Barium Sulfate 700 MG TAB PO (15:12)
--- NOTE | 2023-06-30 16:39 | ST.MBS_ITS ---
Date of Service Date of service: 06/30/23 Time of Service: 16:39 Modified Barium Swallow Study Findings: Video fluoroscopic Swallowing Evaluation (VFSE) / Modified Barium Swallow Study (MBSS) Speech Language Pathology Report Patient referred for VFSE/MBSS from Maricarmen Galvan given difficulty swallowing. HPI & Patient report of function: Patient is a 73 y/o F year old Parkinson's Disease, MCI, Diabetes, spinal stenosis, followed by this clinician for speech therapy (hypokinetic dysarthria) and recently reporting increased gagging and funny noises when swallowing. MANAGER ACADEMIC completed clinical swallow evaluation and recommended subsequent MBSS especially in context of Parkinson's Disease. MBSS was completed in 2020 (prior to Parkinson's Dx) with impressions as follows: Mild-moderate oropharyngeal, moderate esophageal dysphagia, likely chronic; dysphagia presentation characterized by delayed pharyngeal swallow initiation and reduced tongue base retraction resulting in mild-moderate pharyngeal residue (vallecular>pyriform sinuses), and complicated by esophageal retention with retrograde flow below pharyngoesophageal segment/PES; of note, hypertrophy observed at level of cervical esophagus (C2-C3) during all swallow tasks. IMPRESSIONS: Swallow safety is preserved; swallow efficiency is impaired. Moderate pharyngo-esophageal>oral-pharyngeal dysphagia. Characterized primarily by reduced bolus flow through UES for liquids>solids some retrograde flow thro ugh/within UES noted) due to prominent CP prominence/hypertrophy. Also noting esophageal phase impairments, see radiologist's note/findings. Mild oral- pharyngeal impairments include mildly weak/delayed oral transit and pharyngeal initiation, reduced tongue base retraction, and reduced epiglottic inversion with small volumes. Mildly reduced hyo-laryngeal movement did not pose significant airway threat. Mild-moderate residue of valleculae and pyriforms. Barium tablet was suspended at the valleculae and required liquid wash to clear but then transited to stomach without difficulty. Patient appears to be at low risk for potential aspiration PNA and/or pulmonary compromise and low risk for malnutrition, low risk for dehydration. Diet modification is indicated; non-oral nutrition is not indicated. Swallow prognosis is fair given: Positive prognostic factors: Severity, Effectiveness of trialed compensatory strategies, Negative prognostic factors: Cognitive status, Surgical/anatomical factors, neurodegenerative diagnosis and pending patient/caregiver training in risk management as outlined, including use of trialed compensatory strategies. Patient appears to be a fair candidate for behavioral swallow rehabilitation. Specialist referrals:? Evaluate/consider dilation of cricopharyngeus RECOMMENDATIONS: Diet Texture Recommendation:? IDDSI LEVEL SOLIDS 6-Soft & Bite-Sized Solids LIQUIDS 0-Thin Liquids Please see further details at?www.iddsi.org http://www.iddsi.org/ MEDICATIONS Whole with 0-Thin Liquids Diet texture modification is per patient's preference; please adjust diet textures at patient's discretion & collaboration with care team. Do not alter medications (e.g., cut)? without advice from your MD or pharmacist. Risk Management Strategies:? Behavioral reflux precautions, including upright position during + 90 mins after meals. Small bites, approx [id number] Small sips Alternate solids/liquids as able Multiple swallows per bolus to encourage clearance of pharyngeal stasis/residue Control risk factors for aspiration pneumonia via (a) thorough oral hygiene & (b) maintaining physical mobility as tolerated PLAN: Therapy: Recommend subsequent outpatient session with MANAGER ACADEMIC to review results of today's exam and develop treatment plan as appropriate. Goals: Defer to treating clinician Follow-up exam: 12 months or as indicated ----- OBJECTIVE Videofluoroscopic Swallow Evaluation (VFSE/MBSS) was conducted in the lateral and [id number] projection by Speech-Language Pathologist, in collaboration with Radiologist, to evaluate oropharyngeal swallow function. Anatomic view under fluoroscopy: Cervical hardware. Kyphotic posture. PO Barium Contrast Trials Oral barium water-soluble contrast was administered as follows: IDDSI Level 0 Varibar thin liquid (40% w/v) IDDSI Level 2 Varibar nectar thick/mildly thick liquid (40% w/v) IDDSI Level 4 Varibar pudding/pureed/extremely thick (40% w/v) IDDSI Level 7 Regular Solid: 1/2 yohan cracker coated in 3 mL Varibar pudding 13 mm barium tablet taken with ThinMildly thickExtremely Thick] Liquids. MBSImP Component Scores: COMPONENT Scale SCORE 1 Lip closure (0-4) 1 Resulted in interlabial escape, without progression to anterior lip 2 Hold Position (0-3) 1 Allowed bolus escape to lateral buccal cavity/floor of mouth 3 Bolus Preparation (0-4) 1 Resulted in slow prolonged chewing/ mashing with complete re-collection 4 Bolus Transport (0-4) 1 Demonstrated delayed initiation of tongue motion 5 Oral Residue (0-4) 2 Was a collection on oral structures 6 Swallow Initiation (0-4) 3 Occurred when the bolus head was in the pyriform sinuses 7 Soft Palate Elevation (0-4) 0 Resulted in no bolus between soft palate and the pharyngeal wall 8 Laryngeal Elevation (0-3) 1 Was decreased with partial superior movement of thyroid cartilage/partial approximation of arytenoids to epiglottic petiole 9 Anterior Hyoid Motion (0-2) 1 Demonstrated partial anterior movement 10 Epiglottic Movement (0-2) 1 Resulted in partial inversion 11 Laryngeal Closure (0-2) 1 Was incomplete with narrow a column of air/contrast in laryngeal vestibule 12 Pharyngeal Stripping Wave (0-2) 0 Was present and complete 13 Pharyngeal Contraction (0-3) 0 Was complete 14 PES Opening (0-3) 1 Demonstrated partial distension/partial duration, with partial obstruction of flow 15 Tongue Base Retraction (0-4) 2 Allowed a narrow column of contrast or air between the retracted tongue base and the posterior pharyngeal wall 16 Pharyngeal Residue (0-4) 2 Was a collection of residue within or on pharyngeal structures 17 Esophageal Clearance (0-4) 2 Resulted in esophageal retention with retrograde flow below pharyngoesophageal segment Results: COMPONENT Scale SCORE 1 Oral Score (0-18) 8 2 Pharyngeal Score (0-29) 9 3 Esophageal Score (0-4) 2 Penetration-Aspiration Scale: COMPONENT Scale SCORE 1 Thin liquid (1-8) 2 Contrast entered the airway, remained above the vocal folds, and was ejected from the airway. 2 [place] thick (1-8) 1 Contrast did not enter the airway 3 Honey thick (1-8) NA 4 Pudding thick (1-8) 1 Contrast did not enter the airway 5 Cookie (1-8) 1 Contrast did not enter the airway Trialed Compensatory Strategies & Outcome: Maneuvers Successful(+) Unsuccessful(-) Postures Successful(+) Unsuccessful(-) 3 second Preparatory Set? ?+/- Chin Tuck Posture? ? Cough? ? Posterior Head tilt? Reflexive? Cued? Throat Clear? ? Head Tilt to? Reflexive? Left? Cued? Right? ? Saliva swallow? ?+ Head Turn/ Rotate to? ? Supraglottic Swallow? Left? ? Super-supraglottic Swallow? Right? ? Bolus Modifications Successful (+) Unsuccessful (-) Delivery/Alternating Consistencies ? Follow with Liquid Wash + ? Follow with Solid Bolus? Delivery/Via Straw? ? Reduced Volume? ? Reduced Rate of Intake? ?+ Increased Viscosity? ? Other:?? ? Thank you for allowing us to take part in this patient's care. Please feel free to contact the [facility] Speech Language Pathology Department with any questions/concerns.
== END ==
PROVIDERS: PCP Family Medicine; Visit Provider Nurse Practitioner Family
DX: R47.9 Unspecified speech disturbances (principal); G20.C Parkinsonism, unspecified; R13.12 Dysphagia, oropharyngeal phase
CPT/HCPCS: 92526; 74221

== ENCOUNTER 2023-07-01 13:38 | Outpatient (CLI) | payer MEDICARE, SELFPAY ==
[2023-07-01 13:59] LABS: Abs Immature Grans 0.04 10^3/uL (0.0-0.06); Absolute Basophil Count 0.09 10^3/uL (0.0-0.2); Absolute Eosinophil Count 2.08 10^3/uL (0.0-0.7); Absolute Monocyte Count 0.61 10^3/uL (0.1-0.8); Absolute Neutrophil Count 2.73 10^3/uL (1.2-6.7); Basophils % 1.2 %; Eosinophils % 27.9 %; HCT 45.2 % (36.0-46.0); HGB 15.3 g/dL (11.2-15.7); Immature Grans % 0.5 %; Lymphocytes % 25.5 %; MCH 32.3 pg (27.0-33.0); MCHC 33.8 % (32.0-36.0); MCV 96 fL (80-95); MPV 9.5 fL (8.0-11.0); Monocytes % 8.2 %; Neutrophils % 36.7 %; Platelet Count 103 10^3/uL (130-400); RBC 4.73 10^6/uL (3.93-5.22); RDW 13.7 % (11.7-14.6); RDW-SD 48.5 fL; WBC 7.45 10^3/uL (4.4-10.8)
[2023-07-01 14:15] LABS: Diff Comment Diff Reviewed; RBC Morphology Normal
[2023-07-01 14:23] LABS: Ferritin 34 ng/mL (8-252)
== END 2023-07-01 13:39 | disposition home or self-care (01) ==
LOC: LBO 13:38
PROVIDERS: PCP Family Medicine; Visit Provider Nurse Practitioner Family
DX: D50.9 Iron deficiency anemia, unspecified (principal)
CPT/HCPCS: 36415; 82728; 85025

== ENCOUNTER 2023-07-27 05:22 | Outpatient (CLI) | payer MEDICARE, SELFPAY ==
[2023-07-27 13:19] LABS: Abs Immature Grans 0.02 10^3/uL (0.0-0.06); Absolute Basophil Count 0.06 10^3/uL (0.0-0.2); Absolute Eosinophil Count 1.72 10^3/uL (0.0-0.7); Absolute Monocyte Count 0.55 10^3/uL (0.1-0.8); Absolute Neutrophil Count 2.24 10^3/uL (1.2-6.7); Basophils % 0.9 %; Eosinophils % 25.7 %; HCT 43.7 % (36.0-46.0); HGB 15.2 g/dL (11.2-15.7); Immature Grans % 0.3 %; Lymphocytes % 31.4 %; MCH 32.1 pg (27.0-33.0); MCHC 34.8 % (32.0-36.0); MCV 92 fL (80-95); MPV 9.8 fL (8.0-11.0); Monocytes % 8.2 %; Neutrophils % 33.5 %; RBC 4.73 10^6/uL (3.93-5.22); RDW 13.4 % (11.7-14.6); RDW-SD 45.4 fL; WBC 6.69 10^3/uL (4.4-10.8)
[2023-07-27 13:43] LABS: Diff Comment Diff Reviewed; Platelet Count 85 10^3/uL (130-400); RBC Morphology Normal
[2023-07-27 14:03] LABS: Ferritin 24 ng/mL (8-252)
== END 2023-07-27 05:23 | disposition home or self-care (01) ==
LOC: LBO 05:22
PROVIDERS: PCP Family Medicine; Visit Provider Family Medicine
DX: D50.9 Iron deficiency anemia, unspecified (principal)
CPT/HCPCS: 36415; 82728; 85025

== ENCOUNTER → 2023-09-13 00:37 | Outpatient (CLI) | payer MEDICARE, SELFPAY ==
--- NOTE | 2023-09-13 | DI.US_ITS ---
Exam(s) US ABDOMEN LIMITED EXAM: US ABDOMEN LIMITED CLINICAL HISTORY: HEPATIC CIRRHOSIS K74.60 SCREEN FOR HCC TECHNIQUE: Ultrasound abdomen performed using standard protocol. COMPARISON: CT CT ABDOMEN PELVIS W from 10/17/2021 US US ABDOMEN LIMITED from 02/12/2023 FINDINGS: PANCREAS: Normal where visualized. LIVER: There is a coarsened echotexture of the liver. The liver also has a nodular contour. The fin dings are suggestive of hepatic cirrhosis. Hepatopetal flow in the Portal Vein. The liver measures i n 14.8 cm length. No evidence of a hepatic mass. GALLBLADDER: No evidence of cholelithiasis. No evidence of wall thickening. No pericholecystic fluid identified. BILIARY SYSTEM: Common bile duct measures < 7 mm. No intrahepatic biliary ductal dilation. GRUBER'S SIGN: Negative. RIGHT KIDNEY: Kidney is normal in size. No evidence of renal calculi. No evidence of hydronephrosis. No renal mass or cyst identified. ASCITES: None seen. Vasculature: There is a venous structure seen anterior to the liver consistent with the patient's kno wn recanalized umbilical vein. This is present on the CT scan of the abdomen and pelvis from 10/18/19. IMPRESSION: Finding sonographically suspicious for hepatic cirrhosis. No evidence of a hepatic mass. DATA REPOSITORY:
== END ==
PROVIDERS: PCP Family Medicine; Visit Provider Nurse Practitioner Adult Health
DX: K74.60 Unspecified cirrhosis of liver (principal)
CPT/HCPCS: 76705

== ENCOUNTER 2023-09-13 02:20 | Outpatient (CLI) | payer MEDICARE, SELFPAY ==
[2023-09-13 10:24] LABS: INR 1.1 (0.9-1.1)
[2023-09-13 10:56] LABS: ALT 11 U/L (14-59); AST 23 U/L (15-37); Albumin 3.8 g/dL (3.4-5.0); Alkaline Phosphatase 50 U/L (46-116); Anion Gap 7.6 mmol/L (3-11); BUN 15 mg/dL (7-18); Bilirubin, Total 0.85 mg/dL (0.2-1.0); CO2 30.4 mmol/L (21.0-32.0); CREATININE 0.8 mg/dL (0.55-1.02); Calcium 9.3 mg/dL (8.5-10.1); Chloride 105 mmol/L (98-107); Estimated GFR 77.27 (mL/min/1.73m2); Glucose 125 mg/dL (74-106); Potassium 3.8 mmol/L (3.5-5.1); Sodium 143 mmol/L (136-145)
== END 2023-09-13 02:21 | disposition home or self-care (01) ==
LOC: LBO 02:20
PROVIDERS: PCP Family Medicine; Visit Provider Nurse Practitioner Adult Health
DX: K74.60 Unspecified cirrhosis of liver (principal)
CPT/HCPCS: 36415; 80053; 76705; 85610

== ENCOUNTER 2024-02-21 01:33 | Outpatient (CLI) | payer MEDICARE, SELFPAY ==
--- NOTE | 2024-02-21 | DI.US_ITS ---
Exam(s) US ABDOMEN LIMITED EXAM: US ABDOMEN LIMITED CLINICAL HISTORY: Hepatic cirrhosis, unspecified whether ascites present, K74.60, TECHNIQUE: Ultrasound abdomen performed using standard protocol. COMPARISON: US US ABDOMEN LIMITED from 09/13/2023 FINDINGS: There is no ascites evident. LIVER: Liver is again noted to exhibit coarse echotexture and nodular surface pattern, these findings consistent with element of hepatic cirrhosis. No focal hepatic lesions evident Recanalized umbilica l vein is again noted, consistent with portal venous hypertension. GALLBLADDER/BILIARY: There are no gallstones. No gallbladder wall edema nor pericholecystic fluid. The common hepatic duct isnot dilated, measuring 2mm at the level of zeke hepatis. PANCREAS: There is no evidence of pancreatic mass nor dilatation of the pancreatic duct. RIGHT KIDNEY:No evidence of solid mass, calculus, nor hydronephrosis. No cortical cysts evident. IMPRESSION: 1. No evidence of cholelithiasis nor dilatation of the biliary tree. 2. Hepatic cirrhosis again noted. Recanalized umbilical vein again noted. 3. There is no ascites. DATA REPOSITORY:
== END 2024-02-21 01:53 ==
PROVIDERS: PCP Family Medicine; Visit Provider Nurse Practitioner Adult Health
DX: K74.60 Unspecified cirrhosis of liver (principal)
CPT/HCPCS: 76705

== ENCOUNTER 2024-02-21 13:20 | Outpatient (CLI) | payer MEDICARE, SELFPAY ==
[2024-02-21 09:50] LABS: Abs Immature Grans 0.01 10^3/uL (0.0-0.06); Absolute Basophil Count 0.04 10^3/uL (0.0-0.2); Absolute Eosinophil Count 0.45 10^3/uL (0.0-0.7); Absolute Lymphocyte Count 1.35 10^3/uL (1.2-3.4); Absolute Monocyte Count 0.52 10^3/uL (0.1-0.8); Absolute Neutrophil Count 1.99 10^3/uL (1.2-6.7); Basophils % 0.9 %; Eosinophils % 10.3 %; HCT 43.5 % (36.0-46.0); Immature Grans % 0.2 %; MCH 33.3 pg (27.0-33.0); MCHC 34.5 % (32.0-36.0); MCV 97 fL (80-95); MPV 10.3 fL (8.0-11.0); Monocytes % 11.9 %; Neutrophils % 45.7 %; RDW 13.2 % (11.7-14.6); RDW-SD 47.7 fL; WBC 4.36 10^3/uL (4.4-10.8)
[2024-02-21 10:00] LABS: INR 1.1 (0.9-1.1); Prothrombin Time 10.9 sec (9.1-11.1)
[2024-02-21 10:05] LABS: ALT 14 U/L (14-59); AST 29 U/L (15-37); Alkaline Phosphatase 48 U/L (46-116); Anion Gap 7.2 mmol/L (3-11); BUN 16 mg/dL (7-18); Bilirubin, Total 0.92 mg/dL (0.2-1.0); CO2 32.8 mmol/L (21.0-32.0); CREATININE 0.8 mg/dL (0.55-1.02); Calcium 9.7 mg/dL (8.5-10.1); Chloride 106 mmol/L (98-107); Estimated GFR 77.27 (mL/min/1.73m2); Glucose 130 mg/dL (74-106); Potassium 3.9 mmol/L (3.5-5.1); Sodium 146 mmol/L (136-145)
[2024-02-21 10:14] LABS: Platelet Count 69 10^3/uL (130-400)
--- OUTSIDE RECORDS SUMMARY | 2024-02-21 13:23 | XMS_ITS | Continuity of Care Document ---
Author Organization [facility] Address [address] [place] [address] Care Team Providers Care Under Water Assistant Name Role Phone MADAY GUTIÉRREZ Primary Care Physician Encounter [facility] NBR [id number] Date(s): 11/03/23 - 11/03/23 [facility] [address], [place] [address] Encounter Diagnosis Parkinson disease(Discharge Diagnosis) - 11/03/23 Discharge Disposition: Home or Self Care Attending Physician: Lex Schofield MD Referring Physician: MADAY GUTIÉRREZ Allergies, Adverse Reactions, Alerts Substance Criticality Severity Reaction Reaction Severity Status erythromycin Unable to assess criticality Unknown Unknown Active hydroxychloroquine Unable to assess criticality Unknown Unknown Active penicillin G benzathine Unable to assess criticality Unknown Unknown Active quiNINE Unable to assess criticality Unknown severe thrombocytopenia Active Assessment and Plan Future Appointments Medications aspirin 81 mg oral capsule 81 mg = 1 cap, Oral, Daily Start Date: 09/28/22 Status: Ordered calcium (as carbonate)-vitamin D3 600 mg-10 mcg (400 intl units) oral capsule 1 cap, Oral, Daily Start Date: 09/28/22 Status: Ordered Cymbalta 30 mg oral delayed release capsule 30 mg = 1 cap, Oral, Daily, do not crush or chew, 0 Refill(s) Start Date: 11/03/23 Status: Ordered famotidine 40 mg oral tablet [...] 0 Refill(s) Start Date: 09/28/22 Status: Ordered Invokana 100 mg oral tablet 0 Refill(s) Start Date: 11/03/23 Status: Ordered Levemir FlexTouch 100 units/mL subcutaneous [...] Confirmed Active Vitamin D deficiency Confirmed Active Procedures Procedure Date Related Diagnosis Body Site Status Colonoscopy Completed Vital Signs Most recent to oldest [Reference Range]: 1 Apical Heart Rate [60-100 bpm] 87 bpm (11/03/23 1:53 PM) Blood Pressure [90-140/60-90 mmHg] 117/7 8mmHg (11/03/23 1:53 PM) Mean Arterial Pressure, Cuff [65-140 mmH g] 91 mmHg (11/03/23 1:53 PM) Weight 47.45 kg (11/03/23 1:53 PM) Weight Measured (lbs) 104.609 lb (11/03/23 1:53 PM) Weight Dosing 47.450 kg (11/03/23 1:53 PM) [place] Body Weight Calculated 47.8 kg (11/03/23 1:53 PM) Height 154.94 cm (11/03/23 1:53 PM) Height/Length Measured (inches) 61 inch (11/03/23 1:53 PM) BSA Measured 1.43 m2 (11/03/23 1:53 PM) Body Mass Index 19.77 kg/m2 (11/03/23 1:53 PM) Social History Social History Type Response Tobacco Former tobacco user Tobacco Use:. Started age 15.0 Years. Stopped age 15 Years. Sex Sex Representation Female (finding) Physician Outpatient Note * Lex Schofield MD: MODIFY, PERFORM Event Display: Office Clinic Note Physician Authored Date: [id number] ELEAZAR SORIANO :1950 Age:73 years Sex:Female Visit Date:11/03/2023 Primary Care Physician: MADAY GUTIÉRREZ Chief Complaint pt presents today with Dionisio. Pt states she was putting towels away and fell, stated she doesnt remember how she fell but she landed in her tub and hit her head.Pt did not present to ED for evaluation Additional Information pt stated she has been going to PT for a few months and feels it has been beneficial. Pt states left leg is very weak and her right leg falls behind . pt also expresses concern of lost of balance, dizziness, and severe pain in her left leg. History of Present Illness Interval History: ?? Follow-up of parkinsonism and cognitive impairment. ?? Patient is accompanied by Mr. Venus Soriano. ?? Cognitive: ?? Occasional word finding difficulties. No progressive episodic memory loss. ?? Neuropsychiatry: ?? Mood has been good. No constant anxiety or depression.??No hallucinations or delusions. ?? Sleep: ?? She feels that trazodone has been very helpful. ?? Motor: ?? Eleazar had a fall about 2 weeks ago, she does not remember all the details exactly but was in herbathroom, tripped and hit her head. Apparently did not lose consciousness. She is not having recurrent falls. She feels that slowness has improved. She feels that tremor is still present but?? improved. She feels that stiffens also improved but happens more frequently in the evening. She found SPEAK LOUD helpful. ?? Autonomic: ?? Said still has some dysphagia, however per patient passed swallowing evaluation. No constipation. No urinary or fecal incontinence. No syncope. ?? ADLs: No further decline. ?? Physical Exam ?Vitals & Measurements ?HT:??154.94??cm?WT:??54.88??kg?BMI:??22.86?BSA:??1.54?? General Physical Examination: ?? General:??well nourished, in no acute distress, appropriately groomed and dressed?? Skin: No rashes or lesions (full gowned exam not performed) Pulm:??Breathing comfortably on room air Cardiac:??RRR Abdomen:??soft, non-distended? Neurological Examination: ? Language/speech: Naming and repetition intact, fluent, follows 3-step commands??across midline?? Mental status: See??scanned cognitive testing. ? Cranial Nerves: II: Pupils equal and reactive, no RAPD, no VF deficits III, IV, : EOM intact, no gaze preference or deviation, no nystagmus. V: normal sensation in V1, V2, and V3 segments bilaterally VII: no asymmetry, no nasolabial fold flattening,?mild masked facies VIII: normal hearing to speech [...] flexors. ?? Bradykinesia??especially in left hand and leg, similar to last visit. Mild rigidity in both upper extremities. ?? Reflexes:??2/4 throughout, bilateral flexor planter response, no Hall's, no clonus Sensory: Normal to light touch??in 4 extremities ?? No hemineglect, no extinction to double sided stimulation (visual & tactile) Romberg absent Coordination: Normal finger to nose and heel to choi,??mild??resting and action??tremor in left hand, no dysmetria Station:??Shuffling with decreased arm swing mostly in left hand, slightly worse compared to last visit En bloc turning .? Assessment/Plan ?? Impression: ?? 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 2) Parkinson's disease mild cognitive impairment ?? Motor symptoms have remained stable, she prefers not to be make any medication adjustments but continue working with physical therapy. I recommended to implement more exercise in her routine and possible another sessions with PT. ?? Plan: ?? Continue??Sinemet 25/100 mg three times a day. Continue trazodone??25 mg PRN for insomnia and worsening anxiety.? Continue ??PT/OT for fall prevention Return to clinic in??6 months Physical Exam Vitals & Measurements HR:??87??(Apical)?? BP:??117/78?? SpO2:??95%?? HT:??154.94??cm?? WT:??47.45??kg?? BMI:??19.77?? BSA:??1.43?? Problem List/Past Medical History Ongoing Acquired hypothyroidism [...] Vitreous degeneration, bilateral Historical No qualifying data Procedure/Surgical History ???Colonoscopy Medications aspirin 81 mg oral capsule, 81 mg= 1 cap, Oral, Daily calcium (as carbonate)-vitamin D3 600 mg-10 mcg (400 intl units) oral capsule, 1 cap, Oral, Daily Cymbalta 30 mg oral delayed release capsule, 30 mg= 1 cap, Oral, Daily famotidine 40 mg oral tablet, 40 mg= 1 tab, Oral Flovent HFA 110 mcg/inh inhalation aerosol, 2 puffs, Inhale, BID fluticasone propionate, 50 mcg, !-Nostril-Both, Daily Freestyle InsuLinx Test Strips, See instructions Glucometer, See instructions High Potency Vitamin D3 25 mcg (1000 intl units) oral capsule Levemir FlexTouch 100 units/mL subcutaneous solution, See [...] mg sublingual tablet, 0.4 mg= 1 tab, Sublingual, PRN PARoxetine 20 mg oral tablet Paxil [...] 15 Years. Attending Attestation Lex Lima MD [facility]? I personally spent a total of 46 minutes??providing direct??care for this patient, reviewing records and providing education/counseling on Parkinson's disease??on the date of the encounter.?? Electronically Signed on 11/03/2023 14:47 EDT Lex Schofield MD Patient Care team information Care Team Personnel Name: MADAY GUTIÉRREZ Position: No Access Member Role: Primary Care Physician Address: [address] [id number]- Care Team Related Persons Name: VENUS SORIANO Insurance Providers Guarantor name: ELEAZAR SORIANO Health Plan Information #: 1 Payer: MEDICARE CRITICAL ACCESS [facility] Member Number: [id number] Policy Number: NA Health Plan Information #: 2 Payer: [facility] Member Number: [id number] Policy Number: NA
--- OUTSIDE RECORDS SUMMARY | 2024-02-21 13:23 | XMS_ITS | Continuity of Care Document ---
Author Organization [facility] Address [address] [place] [address] Care Team Providers Care Edi Consultant Name Role Phone MADAY GUTIÉRREZ Primary Care Physician Encounter [facility] [id number] Date(s): 06/21/23 - 06/21/23 [facility] [address], [place] [address] Discharge Disposition: Home Allergies, Adverse Reactions, [...] 0 Refill(s) Start Date: 09/28/22 Status: Ordered Levemir FlexTouch [...] Member Role: Primary Care Physician Address: Address: [address] [place] [id number]- Care Team Related Persons Name: VENUS SORIANO
--- OUTSIDE RECORDS SUMMARY | 2024-02-21 13:24 | XMS_ITS | Encounter Summary ---
Author Organization [facility] Address [facility] [address] Care Team Providers Care Clinical Law Professor Name Role Phone ColeMaricarmen Valerie PATEL Primary Care Provider Reason for Visit * Consultation (Routine) - Closed Specialty Diagnoses / Procedures Referred By Contac t Referred To Contact Hematology and Oncology Diagnoses Iron deficiency anemia, unspecified iron deficiency anemia type Thrombocytopenia, unspecified Kaci Vasquez MD [address] [place] [address] [facility] [address] [place] [address] Referral ID Status Reason Start Date Expiration Date V isits Requested Visits Authorized [id number] Closed Consult, Test & Treat PCP Updated and/or Approved 10/14/2022 10/14/2023 12 12 Encounter Details Date Type Department Care Team (Late st Contact Info) Description 02/04/2023 11:00 AM EST Office Visit Hematology/Oncology at [address] [phone] Imer Baker MD [facility] [address] [place] [address] Etelvina Stark APRN [facility] [place] [address] Iron deficiency anemia, unspecified iron deficiency anemia type Social History Tobacco Use Types Packs/Day Years Used Date Smoking Tobacco: Never Smokeless Tobacco: Never Alcohol Use Standard Drinks/Week Comments No 0 (1 standard drink = 0.6 oz pur e alcohol) [facility] Utilities Answer Date Recorded In the past 12 months has th e electric, gas, oil, or water company threatened to shut off services in your home? No 02/04/2023 Overall Financial Resource Strain (CARDIA) Answe r Date Recorded How hard is it for you to pa y for the very basics like food, housing, medical care, and heating? Patient declined 02/04/2023 Hunger Vital Sign Answer Date Recorded Within the past 12 months, y ou worried that your food would run out before you got the money to buy more. Never true 02/05/20 Within the past 12 months, t he food you bought just didn't last and you didn't have money to get more. Never true 02/04/2023 PRAPARE - Transportation Answer Date Re corded In the past 12 months, has l ack of transportation kept you from medical appointments or from getting medications? No 01/22 In the past 12 months, has l ack of transportation kept you from meetings, work, or from getting things needed for daily living? No 02/04/2023 Housing Stability Vital Sign Answer Chirag e Recorded In the last 12 months, was t here a time when you were not able to pay the mortgage or rent on time? No 02/04/2023 In the last 12 months, how many places have you lived? 1 02/04/2023 In the last 12 months, was t here a time when you did not have a steady place to sleep or slept in a snf (including now)? No 02/04/2023 Sex and Gender Information Value Date Recorded Sex Assigned at Not on file Gender Identity Not on file Sexual Orientation Not on file documented as of this encounter Last Filed Vital Signs Vital Sign Reading Time Taken Comments Blood Pressure 124/65 02/04/2023 11:23 AM EST Pulse 87 02/04/2023 11:23 AM EST Temperature 36.4 ??C (97.5 ??F) 02/04/2023 11:[address] Respiratory Rate 20 02/04/2023 11:23 AM EST Oxygen Saturation 100% 02/04/2023 11:23 AM EST Inhaled Oxygen Concentration - - Weight 50.3 kg (111 lb) 02/04/2023 11:23 AM EST Height 155 cm (5' 1.02) 02/04/2023 11:23 AM EST Body Mass Index 20.96 02/04/2023 11:23 AM EST documented in this encounter Progress Notes * Imer Baker MD - 02/04/2023 11:00 AM EST Subjective Patient ID: Shereen Vega is a 72 y.o. female. HPI The patient is a 72-year-old female that I am seeing in the [facility]. She is referredby Maricarmen Galvan APRN in consultation for persistent iron deficiency anemia. I have had a chance to review the available records. The patient is a very pleasant 72-year-old female. She does have documented cirrhosis. No evidence of GI bleeding but she has had documented persistent iron deficiency going back a few years. Her ferritin has been followed but she has been intolerant of oral iron. Typically she can maintain her hemoglobin but occasionally I will dip into the anemic range. She does have thrombocytopenia which is felt to be due to her liver disease. This has been stable for many years. She actually feels okay. She does feel tired. She does have pica for ice which has been persistent for many years. 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 Per pt, Disp: , Rfl: albuteroL 90 mcg/actuation HFA Aerosol Inhaler, Inhale 1 puff into the lungs every 4 hours as needed for Wheezing. Use with spacer, Disp: , Rfl: famotidine (Pepcid) 40 mg tablet, Take 40 mg by mouth nightly., Disp: , Rfl: gabapentin (Neurontin) 300 mg Capsule, Take 2 capsules by mouth 3 times daily., Disp: 90 capsule, Rfl: 12 insulin detemir U-100 (Levemir FlexTouch U-100 Insuln) Insulin Pen, Daily. 15 units in am 12 units in pm, Disp: , Rfl: fluticasone propionate (FLOVENT) 110 mcg/actuation HFA Aerosol Inhaler, Inhale into the lungs., Disp: , Rfl: freestyle lite strips, USE TO TEST BLOOD GLUCOSE ONCE DAILY, Disp: , Rfl: fluticasone propion-salmeterol (ADVAIR) 100-50 mcg/dose Disk with Device, Inhale 1 puff into the lungs every 12 hours., Disp: , Rfl: cholecalciferol, Vitamin D3, 25 mcg (1,000 unit) Capsule, Take by mouth., Disp: , Rfl: calcium-vitamin D3 600 mg calcium- 400 unit Tablet, Take by mouth., Disp: , Rfl: magnesium chloride (SLOW-MAG ORAL), Take 64 mg by mouth., Disp: , Rfl: levothyroxine (SYNTHROID) 75 mcg tablet, Take 75 mcg by mouth daily., Disp: , Rfl: TRAMADOL HCL (TRAMADOL ORAL), Take 50 mg by mouth every morning. Takes at bedtime if needed. , Disp: , Rfl: PARoxetine (PAXIL) 40 mg tablet, Take 20 mg by mouth every morning., Disp: , Rfl: aspirin 81 mg EC tablet, Take 81 mg by mouth daily., Disp: , Rfl: lovastatin (MEVACOR) 40 mg tablet, Take 40 mg by mouth nightly., Disp: , Rfl: metFORMIN (GLUCOPHAGE) 500 mg tablet, Take 1,000 mg by mouth 2 times daily (with meals)., Disp: , Rfl: Current Facility-Administered Medications: diclofenac (VOLTAREN) 1% topical gel 2 g, 2 g, Topical (Top), 4 Times Daily, Manny Lugo MD Allergies Allergen Reactions Erythromycin Base Abdominal pain Penicillins Hives Plaquenil [Hydroxychloroquine] Reaction unknown Quinine Thrombocytopenia Sulfasalazine Patient not sure about reaction. 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 stopped 2/2 arthritis Tobacco Use Smoking status: Never Smokeless tobacco: Never Vaping Use Vaping Use: Never used Substance and Sexual Activity Alcohol use: No Drug use: No Sexual activity: Not on file Comment: Deferred Other Topics Concern Service Not Asked Blood Transfusions Not Asked Caffeine Concern Not Asked Occupational Exposure Not Asked Hobby Hazards Not Asked Sleep Concern Not Asked Stress Concern Not Asked Weight Concern Not Asked Special Diet Not Asked Back Care Not Asked Exercise Yes Comment: cannot because of her balance problem Bike Helmet Not Asked Seat Belt Not Asked Self-Exams Not Asked Social History Narrative Born in [place], grew up there and went to high school in [place], did not graduate, and her current , 43 years ago. And have three children. She stayed at home to raise her children. Social Determinants of Health Financial Resource Strain: Unknown (02/04/2023) Overall Financial Resource Strain (CARDIA) Difficulty of Paying Living Expenses: Patient refused Food Insecurity: No Food Insecurity (02/04/2023) Hunger Vital Sign Worried About Running Out of Food in the Last Year: Never true Ran Out of Food in the Last Year: Never true Transportation Needs: No Transportation Needs (02/04/2023) PRAPARE - Transportation Lack of Transportation (Medical): No Lack of Transportation (Non-Medical): No Physical Activity: Not on file Intimate Partner Violence: Not on file Housing Stability: Low Risk (02/04/2023) Housing Stability Vital Sign Unable to Pay for Housing in the Last Year: No Number of Places Lived in the Last Year: 1 Unstable Housing in the Last Year: No Family History Problem Relation Age of Onset Myocardial Infarction Father Diabetes Father Parkinsonism Brother Heart Surgery Brother Type 1 Diabetes Sister Thyroid Cancer Daughter Type 1 Diabetes Grandchild Myocardial Infarction Mother Review of Systems Constitutional: Negative for fatigue, fever and unexpected weight change. HENT: Negative for nosebleeds. Respiratory: Negative for cough and shortness of breath. Cardiovascular: Negative for chest pain and palpitations. Gastrointestinal: Negative for abdominal pain and diarrhea. Musculoskeletal: Negative for back pain. Skin: Negative for rash. Neurological: Negative for speech difficulty. Hematological: Negative for adenopathy. Does not bruise/bleed easily. All other systems reviewed and are negative. Objective There were no vitals taken for this visit. Physical Exam Constitutional: Appearance: Normal appearance. She is not ill-appearing. HENT: Mouth/Throat: Mouth: Mucous membranes are moist. Eyes: General: No scleral icterus. Pulmonary: Effort: Pulmonary effort is normal. Musculoskeletal: General: No swelling. Skin: Findings: No rash. Neurological: Mental Status: She is oriented to person, place, and time. Lab Results Component Value Date WBC 5.1 06/24/2022 RBC 4.31 06/24/2022 HGB 10.0 (L) 06/24/2022 HCT 33.5 (L) 06/24/2022 MCV 77.7 (L) 06/24/2022 MCH 23.2 (L) 06/24/2022 MCHC 29.9 (L) 06/24/2022 PLATELET 98 (L) 06/24/2022 RDWCV 16.5 (H) 06/24/2022 Latest Reference Range & Units 01/02/19 10:39 03/10/19 15:44 02/06/20 10:49 04/29/20 17:01 08/05/20 16:19 03/12/21 08:45 09/11/21 09:37 10/01/21 17:07 11/14/21 20:35 06/24/22 11:14 Platelets 145 - 357 x10(3)/mcL 97 (L) 103 (L) 102 (L) 104 (L) 108 (L) 103 (L) 112 (L) 96 (L) 81 (L)98 (L) (L): Data is abnormally low Latest Reference Range & Units 03/10/19 15:44 Iron 30 - 150 mcg/dL 108 TIBC 250 - 450 mcg/dL 329 Iron Saturation 20 - 50 % 33 Ferritin 30 - 400 ng/mL 23 (L) (L): Data is abnormally low Ferritin 12/23/22 =9 Assessment and Plan 72-year-old female with documented iron deficiency anemia. She is intolerant of oral iron. She doeshave chronic liver disease and may well have some increased GI blood losses. I did recommend intravenous iron to replace her iron stores at this point. I would expect her hemoglobin to get back to normal and hopefully she will still have some residual storage iron after she normalizes her hemoglobin. I recommended Monoferric at 1000 mg intravenously today. She is willing to have that. I would like to see her back in about 8 weeks to repeat a CBC and ferritin to make sure she has normalized her hemoglobin at that point. documented in this encounter Plan of Treatment Upcoming Encounters Date Type Department Care Team (Late st Contact Info) Description 03/01/2024 1:30 PM EST Office Visit Hematology/Oncology at [address] [phone] Imer Baker MD [facility] DR [place] [address] Heidi Cruz APRN [address] [place] [address] [place] [address] 03/01/2024 2:00 PM EST Infusion Hematology Oncology at [address] [phone] 03/23/2024 11:30 AM EST TH Visit (TeleHealth) [place] [address] Tory Willard APRN [facility] [place] [address] documented as of this encounter Visit Diagnoses Diagnosis Iron deficiency anemia, unspecified iron deficiency anemia type documented in this encounter Care Teams Clinical Law Professor Relationship Specialty Start Date End Date Maricarmen Galvan APRN PCP - General Family Medicine 05/10/18 07/28/23 documented as of this encounter
--- OUTSIDE RECORDS SUMMARY | 2024-02-21 13:24 | XMS_ITS | Encounter Summary ---
Author Organization [facility] [place] [address] Care Team Providers Care Printing Supervisor Name Role Phone ChagoMaricarmen luo JORGE Primary Care Provider [phone] Encounter Details Date Type Department Care Team (Late st Contact Info) Description 11/03/2022 [place] [address] Chandni Da Silva Social History Tobacco Use Types Packs/Day Years Used Date Smoking Tobacco: Never Smokeless Tobacco: Never Alcohol Use Standard Drinks/Week Comments No 0 (1 standard drink = 0.6 oz pur e alcohol) Sex and Gender Information Value Date Recorded Sex Assigned at Not on file Gender Identity Not on file Sexual Orientation Not on file documented as of this encounter Plan of Treatment Upcoming Encounters Date Type Department Care Team (Late st Contact Info) Description 03/01/2024 1:30 PM EST Office Visit Hematology/Oncology at [address] [phone] Imer Baker MD [facility] DR [place] [address] Heidi Cruz APRN [address] [place] [address] [place] [address] 03/01/2024 2:00 PM EST Infusion Hematology Oncology at [address] [phone] 03/23/2024 11:30 AM EST TH Visit (TeleHealth) [place] [address] Tory Willard APRN [facility] [place] [address] documented as of this encounter Visit Diagnoses Not on filedocumented in this encounter Care Teams Printing Supervisor Relationship Specialty Start Date End Date Maricarmen Galvan APRN PCP - General Family Medicine 05/10/18 07/28/23 documented as of this encounter
--- OUTSIDE RECORDS SUMMARY | 2024-02-21 13:24 | XMS_ITS | Encounter Summary ---
Author Organization [facility] [place] [address] Care Team Providers Care Bullet Maker Name Role Phone Maricarmen Galvan JORGE Primary Care Provider [phone] Encounter Details Date Type Department Care Team (Late st Contact Info) Description 06/24/2022 11:30 AM EDT Office [place] [phone] Tory Ayers APRN [facility] [place] [address] Hepatic cirrhosis, unspecified hepatic cirrhosis type, unspecified whether ascites present Social History Tobacco Use Types Packs/Day Years [...] Sign Reading Time Taken Comments Blood Pressure 119/58 06/24/2022 11:36 AM EDT Pulse 89 06/24/2022 11:36 AM EDT Temperature - - Respiratory Rate - - Oxygen Saturation - - Inhaled Oxygen Concentration - - Weight 52.1 kg (114 lb 12.8 oz) 023 11:36 AM EDT Height 153.7 cm (5' 0.51) 06/24/2022 1 1:36 AM EDT Body Mass Index 22.04 06/24/2022 11:36 AM EDT documented in this encounter Progress Notes * Tory Ayers APRN - 06/24/2022 11:30 AM EDT Hepatology Follow Up Note Patient: Shereen Vega Gender: female : 1950 Provider: TORY AYERS APRN Referring Physician: Maricarmen Galvan APRN HISTORY OF PRESENT ILLNESS Shereen Vega is a 72 y.o. year old female with history of diabetes, psoriatic arthritis, andcirrhosis. She had an ultrasound today and returns for follow up. She is going to twice a week, has a hard time walking. She was scheduled for an EGD at [facility] but then had to cancel due to bad weather. Would prefer to do upper endoscopy at [facility] when she needs to have that done. No blood in stools, no melena, no edema. Has been getting liam horses. PAST MEDICAL/SURGICAL HISTORY Psoriatic arthritis - Took [...] Outpatient Medications Marked as Taking for the 06/24/22 encounter (Office Visit) with Tory Ayers APRN Medication Sig Dispense Refill ??? cephALEXin (Keflex) 250 mg Capsule Take 1 capsule by mouth 2 times daily. 40 capsule 0 ??? ibuprofen (Advil) 200 mg Tablet Take 1 tablet by mouth every 6 hours as needed for Pain (every 4 to 6 hours as needed for pain). 30 tablet 1 ??? gabapentin (Neurontin) 300 mg Capsule Take 2 capsules by mouth 3 times daily. 90 capsule 12 ??? insulin detemir U-100 (Levemir FlexTouch U-100 Insuln) Insulin Pen Daily. 15 units in am 12 units in pm ??? fluticasone propionate (FLOVENT) 110 mcg/actuation HFA Aerosol Inhaler Inhale into the lungs. ??? omeprazole (PriLOSEC) 20 mg Capsule, Delayed Release(E.C.) Take by mouth. ??? freestyle lite strips USE TO TEST BLOOD GLUCOSE ONCE DAILY ??? fluticasone propion-salmeterol (ADVAIR) 100-50 mcg/dose Disk with Device Inhale 1 puff into thelungs every 12 hours. ??? folic acid (FOLVITE) 400 mcg Tablet Take 400 mcg by mouth daily. ??? cholecalciferol, Vitamin D3, 25 mcg (1,000 unit) Capsule Take by mouth. ??? calcium-vitamin D3 [...] 20 mg by mouth every morning. ??? aspirin 81 mg EC tablet Take 81 mg by mouth daily. ??? lovastatin (MEVACOR) 40 mg tablet Take 40 mg by mouth every morning. ??? metFORMIN (GLUCOPHAGE) 500 mg tablet Take 1,000 mg by mouth 2 times daily (with meals). Current Facility-Administered Medications for the 06/24/22 encounter (Office Visit) with Tory Ayers APRN [...] hx of liver disease. PHYSICAL EXAM Vitals: 06/24/22 1136 BP: 119/58 BP Location (NBP): Left arm Patient Position: Sitting BP Cuff Sizes: Small Adult (20-26 cm) Pulse: 89 Weight: 52.1 kg (114 lb 12.8 oz) Height: 153.7 cm (5' 0.51) Body mass index is 22.04 kg/m??. Constitutional: Well appearing, appropriate, no acute distress, petite stature Skin: No cyanosis, no palmar erythema, no jaundice, no spider angiomata Neurologic: Alert and oriented x 3, no asterixis or tremor Extremities: No edema, no clubbing, no muscle wasting, no joint swelling Lab Results Component Value Date WBC 5.1 06/24/2022 HGB 10.0 (L) 06/24/2022 HCT 33.5 (L) 06/24/2022 MCV 77.7 (L) 06/24/2022 PLATELET 98 (L) 06/24/2022 Recent Labs 06/24/22 1114 INR 1.0 Chemistry Component Value Date/Time NA 140 06/24/2022 1114 K 3.9 06/24/2022 1114 CL 103 06/24/2022 1114 CO2 25 06/24/2022 1114 BUN 13 06/24/2022 1114 CREATININE 0.66 (L) 06/24/2022 1114 Component Value Date/Time CALCIUM 9.4 06/24/2022 1114 ALKPHOS 63 06/24/2022 1114 AST 23 06/24/2022 1114 ALT 14 06/24/2022 1114 BILITOT 0.4 06/24/2022 1114 MELD-Na score: 6 at 06/24/2022 11:14 AM MELD score: 6 at 06/24/2022 11:14 AM Calculated from: Serum Creatinine: 0.66 mg/dL (Using min of 1 mg/dL) at 06/24/2022 11:14 AM Serum Sodium: 140 mmol/L (Using max of 137 mmol/L) at 06/24/2022 11:14 AM Total Bilirubin: 0.4 mg/dL (Using min of 1 mg/dL) at 06/24/2022 11:14 AM INR(ratio): 1.0 at 06/24/2022 11:14 AM Age: 72 years Ultrasound 06/24/2022: IMPRESSION Coarse parenchymal echotexture, capsular nodularity, and recannulized umbilical vein consistent with known cirrhosis. No sonographic evidence of mass. No ascites. Hepatopetal flow of the main portal vein with focal dilation up to 2.2 cm, which appears similar to prior. ASSESSMENT/PLAN Shereen Vega is a 72 y.o. female with history of diabetes, hyperlipidemia, psoriatic arthritis and well-compensated cirrhosis, likely due to ALFARO or medication (prior Methotrexate use, though brief). She has been stable from a liver standpoint since her diagnosis. MELD-Na is 6 with today's bl ood work. 1. Cirrhosis. Etiology possibly ALFARO. Her workup for other causes of liver disease was negative, including iron overload, autoimmune hepatitis, celiac disease, and viral hepatitis. She does have diabetes and hyperlipidemia, so could have ALFARO despite her low BMI (21). Her liver enzymes are normal. 2. Varices surveillance. EGD 07/2019 with no varices. Her platelets are low and she has signs of portal hypertension, including a recanalized umbilical vein on ultrasound imaging. She is overdue for arepeat upper endoscopy ,which she would like to do at [facility]. This was scheduled for this winter but she had to cancel. Gave her number for [facility] to reschedule and she will call. Her hemoglobin is slightly lower today, will also evaluate for any GI blodo loss. 3. HCC surveillance. US today with no [...] with labs an US. - Upper endoscopy next available at [facility] to evaluate for varices. If large varices are seen would recommend banding given her slightly low BP and that she may not tolerate a non-selective beta lizzy. Time spent reviewing records prior to this encounter: 5 minutes Time spent during encounter with patient including counselin minutes Time spent documenting encounter on date of service: 5 minutes Approximate total time devoted to this single encounter on date of service: 30minutes Tory Ayers APRN Section of Gastroenterology [place] [address] Copy: Maricarmen Galvan APRN [address] / [place] [address] documented in this encounter Plan of Treatment Upcoming Encounters Date Type Department Care Team (Late st Contact Info) Description 03/01/2024 1:30 PM EST Office Visit Hematology/Oncology at [address] [phone] Imer Baker MD [facility] DR [place] [address] MEDICAL ONCOLOGY [place], [place] [id number] 03/01/2024 2:00 PM EST Infusion Hematology Oncology at [address] [phone] 03/23/2024 11:30 AM EST TH Visit (TeleHealth) [place] [phone] Tory Ayers APRN [facility] [place] [address] documented as of this encounter Results * AFP tumor marker (06/24/2022 11:14 AM EDT) [facility] Alpha Fetoprotein <1.9 <=8.3 ng/mL [facility] Comment: This result was generated using a Cliff Divina immunoassay. ??Results obtained from other methods or manufacturers cannot be used interchangeably with this method. Blood 06/24/2022 11:1 4 AM EDT 06/24/2022 11:18 AM EDT Narrative Resulting Agency Comment Spec In Lab Tory Ayers APRN CHEMISTRY ORDERABL ES [facility] [address] * Prothrombin Time (06/24/2022 11:14 AM EDT) Pathologist [facility] Prothrombin Time 11.8 9.4 - 12.5 sec [facility] International Normalization Ratio 1.0 [facility] Comment: An INR <2.0 indicates adequate procoagulant activity for hemostasis in most patients without underlying bleeding disorders, though the INR may not adequately reflect hemostatic capacity in patients with liver disease and synthetic impairment. The recommended target INR range for therapeutic anticoagulation is 2.0 ? 3.0 for most applications, though lower and higher ranges may be appropriate depending on clinical circumstances. Blood 06/24/2022 11:1 4 AM EDT 06/24/2022 11:18 AM EDT Narrative Resulting Agency Comment Spec In Lab Tory Ayers APRN HEMATOLOGY ORDERAB LES [facility] [address] [place] [address] * (ABNORMAL) Comprehensive metabolic panel (non-fasting) (06/24/2022 11:14 AM EDT) Glucose 189 65 - 199 mg/dL [facility] Comment:Diabetes: >=200 mg/d L plus symptoms Blood Urea Nitrogen 13 8 - 18 mg/dL [facility] Creatinine 0.66(L) 0.70 - 1.20 mg/dL [facility] Sodium 140 135 - 145 mmol/L [facility] Potassium 3.9 3.5 - 5.0 mmol/L [facility] Comment: Please note: ??Patients with WBC >100,000 may have falsely elevated Potassium levels. ??For accurate Potassium quantification in these patients send serum separator tube (gold top) for subsequent determinations. ??Contact the Clinical Chemistry Laboratory if there are any questions. Chloride 103 98 - 107 mmol/L [facility] Carbon Dioxide 25 22 - 31 mmol/L [facility] Anion Gap 12 5 - 15 mmol/L [facility] Calcium 9.4 8.5 - 10.5 mg/dL [facility] Protein, Total 8.6(H) 6.1 - 8.0 g/dL [facility] Albumin 4.6 3.2 - 5.2 g/dL [facility] Aspartate Aminotransferase 23 0 - 30 unit/L [facility] Alanine Aminotransferase 14 0 - 30 unit/L [facility] Alkaline Phosphatase 63 35 - 105 unit/L [facility] Bilirubin, Total 0.4 0.2 - 1.3 mg/dL [facility] Est Glomerular Filtration Rate 93 >=60 mL/min/1. 73 m?? [facility] Comment: This patient's estimated GFR was calculated using the 2020 CKD-EPI equation. The estimated GFR can vary from the measured GFR by up to 30% in the absence of rapidly changing kidney function. Assessment of the estimated GFR is not appropriate when creatinine concentrations are rapidly changing. For clinical situations in which a more precise estimate of GFR is necessary, consider alternative methods of GFR estimation such as a 24-hour urine creatinine clearance. Assignment of CKD stage 1-5 for patients with an eGFR near the transition point between stages may be based on clinical assessment of muscle mass and symptoms in addition to eGFR. Blood 06/24/2022 11:1 4 AM EDT 06/24/2022 11:18 AM EDT Narrative Resulting Agency Comment Spec In Lab Tory Ayers APRN CHEMISTRY ORDERABL ES [facility] [address] documented in this encounter Visit Diagnoses Diagnosis Hepatic cirrhosis, unspecified hepatic cirrhosis type, unspecified whether ascites present documented in this encounter Care Teams Bullet Maker Relationship Specialty Start Date End Date Maricarmen Galvan APRN PCP - General Family Medicine 05/10/18 07/28/23 documented as of this encounter
--- OUTSIDE RECORDS SUMMARY | 2024-02-21 13:24 | XMS_ITS | Encounter Summary ---
Author Organization [facility] [place] [address] Care Team Providers Care Dental Lab Technician Name Role Phone Maricarmen Galvan JORGE Primary Care Provider [phone] Encounter Details Date Type Department Care Team (Late Contact Info) Description 01/06/2023 Telephone [place] [phone] Ese Queen Social History Tobacco Use Types Packs/Day Years Used Date Smoking Tobacco: Never Smokeless Tobacco: Never Alcohol Use Standard Drinks/Week Comments No 0 (1 standard drink = 0.6 oz pur e alcohol) Sex and Gender Information Value Date Recorded Sex Assigned at Not on file Gender Identity Not on file Sexual Orientation Not on file documented as of this encounter Miscellaneous Notes * Telephone Encounter - Ese Queen - 01/06/2023 9:28 AM EST Caller: pts spouse, Call for: scheduling/CERTIFIED ART THERAPIST Reason for call: not feeling well today, can't make visits today (Labs, US, GIF) - would like Labs and US orders sent to [facility] Call back urgency: only if needed Preferred method of communication: phone call documented in this encounter Plan of Treatment Upcoming Encounters Date Type Department Care Team (Late Contact Info) Description 03/01/2024 1:30 PM EST Office Visit Hematology/Oncology at [address] [phone] Imer Baker MD [facility] [place] [address] Heidi Cruz APRN [address] [place] [address] [place] [address] 03/01/2024 2:00 PM EST Infusion Hematology Oncology at [address] [phone] 03/23/2024 11:30 AM EST TH Visit (TeleHealth) [place] [phone] Tory Willard [facility] [place] [address] documented as of this encounter Visit Diagnoses Not on filedocumented in this encounter Care Teams Dental Lab Technician Relationship Specialty Start Date End Date Maricarmen Galvan APRN PCP - General Family Medicine 05/10/18 07/28/23 documented as of this encounter
--- OUTSIDE RECORDS SUMMARY | 2024-02-21 13:24 | XMS_ITS | Encounter Summary ---
Author Organization [facility] [place] [address] Care Team Providers Care Program And Research Coordinator Name Role Phone Maricarmen Galvan JORGE Primary Care Provider [phone] Encounter Details Date Type Department Care Team (Late Contact Info) Description 01/06/2023 Orders [place] [phone] Tory Willard [facility] [place] [address] Hepatic cirrhosis, unspecified hepatic cirrhosis type, unspecified [...] 1:30 PM EST Office Visit Hematology/Oncology at [address] [phone] Imer Baker MD [facility] DR [place] [address] Heidi Cruz [address] [address] 03/01/2024 2:00 PM EST Infusion Hematology Oncology at [address] [phone] 03/23/2024 11:30 AM EST TH Visit (TeleHealth) [place] [address] Tory Willard APRN [facility] [place] [address] documented as of this encounter Visit Diagnoses Diagnosis Hepatic cirrhosis, unspecified hepatic cirrhosis type, unspecified whether ascites present documented in this encounter Care Teams Program And Research Coordinator Relationship Specialty Start Date End Date Maricarmen Galvan APRN PCP - General Family Medicine 05/10/18 07/28/23 documented as of this encounter
--- OUTSIDE RECORDS SUMMARY | 2024-02-21 13:24 | XMS_ITS | Encounter Summary ---
[place] [address] Care Team Providers Care Practice Professional Name Role Phone Maricarmen Galvan APRN Primary Care Provider [phone] Encounter Details Date Type Department Care Team (Latest Contact Info) Description 09/24/2022 4:00 PM EDT [place] [phone] Lorenzo Hermosillo PA Psoriatic arthritis (Primary Dx); Long-term use of high-risk medication; Osteoarthritis, unspecified osteoarthritis type, unspecified site Social History Tobacco Use Types Packs/Day Years Used Date Smoking Tobacco: Never Smokeless Tobacco: Never Tobacco Cessation:Counseling Given: Not Answered Alcohol Use Standard Drinks/Week Comments No 0 (1 standard drink = 0.6 oz pur e alcohol) Sex and Gender Information Value Date Recorded Sex Assigned at Not on file Gender Identity Not on file Sexual Orientation Not on file documented as of this encounter Last Filed Vital Signs Vital Sign Reading Time Taken Comments Blood Pressure 107/64 09/24/2022 4:24 PM EDT Pulse 87 09/24/2022 4:24 PM EDT Temperature 36.1 ??C (97 ??F) 09/24/2022 4:24 PM EDT Respiratory Rate 18 09/24/2022 4:24 PM EDT Oxygen Saturation 97% 09/24/2022 4:24 PM EDT Inhaled Oxygen Concentration - - Weight 53.2 kg (117 lb 3.2 oz) 09/24/2022 4:24 P M EDT Height - - Body Mass Index 22.5 06/24/2022 11:36 AM EDT documented in this encounter Patient Instructions * Patient Instructions* Lorenzo Hermosillo PA - 09/24/2022 4:00 PM EDT Follow up PRN documented in this encounter Progress Notes * Lorenzo Hermosillo PA - 09/24/2022 4:00 PM EDT Rheumatology Outpatient Note Chart review conducted prior to the visit includes review of PMHx, medications, allergies, and prior office notes. The most pertinent findings are listed below. The Patient History Form was reviewed with the patient, which included review of ROS, social hx, pmhx, famhx, current and prior medications, allergies, IZs, and ADLs. The form is scanned into the patient's chart. History of Present Illness: Shereen Vega is a 72 y.o. female who presents today for evaluation of PsA/OA 22:Impression/Recommendations : Shereen Vega is a 71 y.o. female who presents today with PsA and OA patient with no findingson exam suggestive of disease activity she feels symptomatically she is doing well there is no specific intervention today she is no longer on Otezla she will remain off of it as she does not seem toneed it and is uncertain as to whether or not it conferred a significant benefit we will see her again in follow-up in a year as well as as needed if indicated patient and in agreement. Interval History: Patient presents today for follow-up. She cannot seem to afford medications so she no longer takes Otezla. In general she feels okay there is been no fevers infectious-like symptoms red warm swollen joints. She feels gradually over time she has lost some level of function in her hands. There is been no B symptoms she otherwise denies any other major changes in her health. Review of Systems Constitutional: Negative for diaphoresis, malaise/fatigue and chills. Respiratory: Negative for shortness of breath, chest discomfort, wheezing, hemoptysis and orthopnea. Gastrointestinal: Negative for GERD, diarrhea and trouble swallowing. HENT: Negative. Psychiatric/Behavioral: Negative for social aversion. Hematologic/Lymphatic: Negative. Allergic/Immunologic: Negative for recurrent infections. Musculoskeletal: Positive for joint pain (minor hand pain). Endocrine: Negative for polydipsia, polyphagia and polyuria. Cardiovascular: Negative for palpitations, near-syncope and syncope. Neurological: Negative for vertigo. Skin: Negative for dry skin, urticaria, blister, photosensitivity and erythema. Allergies Allergies Allergen Reactions Erythromycin Base Abdominal pain Penicillins Hives Plaquenil [Hydroxychloroquine] Reaction unknown Quinine Thrombocytopenia Sulfasalazine Patient not sure about reaction. Medications Current Outpatient Medications on File Prior to Visit Medication Sig Dispense Refill cephALEXin (Keflex) 250 mg Capsule Take 1 capsule by mouth 2 times daily. 40 capsule 0 ibuprofen (Advil) 200 mg Tablet Take 1 tablet by mouth every 6 hours as needed for Pain (every 4 to6 hours as needed for pain). 30 tablet 1 gabapentin (Neurontin) 300 mg Capsule Take 2 capsules by mouth 3 times daily. 90 capsule 12 insulin detemir U-100 (Levemir FlexTouch U-100 Insuln) Insulin Pen Daily. 15 units in am 12 units in pm fluticasone propionate (FLOVENT) 110 mcg/actuation HFA Aerosol Inhaler Inhale into the lungs. omeprazole (PriLOSEC) 20 mg Capsule, Delayed Release(E.C.) Take by mouth. freestyle lite strips USE TO TEST BLOOD GLUCOSE ONCE DAILY fluticasone propion-salmeterol (ADVAIR) 100-50 mcg/dose Disk with Device Inhale 1 puff into the lungs every 12 hours. folic acid (FOLVITE) 400 mcg Tablet Take 400 mcg by mouth daily. cholecalciferol, Vitamin D3, 25 mcg (1,000 unit) Capsule Take by mouth. calcium-vitamin D3 600 mg calcium- 400 unit Tablet Take by mouth. magnesium chloride (SLOW-MAG ORAL) Take by mouth. levothyroxine (SYNTHROID) 75 mcg tablet Take 75 mcg by mouth daily. TRAMADOL HCL (TRAMADOL ORAL) Take 50 mg by mouth every morning. Takes at bedtime if needed. PARoxetine (PAXIL) 40 mg tablet Take 20 mg by mouth every morning. aspirin 81 mg EC tablet Take 81 mg by mouth daily. lovastatin (MEVACOR) 40 mg tablet Take 40 mg by mouth every morning. metFORMIN (GLUCOPHAGE) 500 mg tablet Take 1,000 mg by mouth 2 times daily (with meals). 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 Chronic constipation K59.09 Dysosmia R43.9 Chest pain R07.9 Long-term use of high-risk medication Z79.899 Vulvar cancer C51.9 SurgHX Past Surgical History: Procedure Laterality Date APPENDECTOMY OVARIAN CYST SURGERY right removed PRO INTRAOP SENTINEL LYMPH ID W/DYE INJECTION N/A 11/14/2021 INTRAOPERATIVE ID (MAPPING) SENTINEL LYMPH NODE,INCLUDES INJECTION (WRVU 2.5) performed by Miladys Anderson MD at [facility] MAIN OR PRO UPPER GI ENDOSCOPY, DIAGNOSTIC N/A 07/25/2019 EGD, UPPER GI ENDOSCOPY performed by Azam Dee MD at [facility] ENDOSCOPY PRO VULVA RESECT, RAD, PART, BILAT NODES Right 11/14/2021 @VULVECTOMY, RAD,PARTIAL WITH LYMPHADENECTOMY-ANA (WRVU 21.86) [facility] TUBAL [facility]IG[facility] Physical Examination: BP 107/64 (BP Location (NBP): Left arm, Patient Position: Sitting, BP Cuff Sizes: Small Adult (20-26 cm)) Pulse 87 Temp 36.1 ??C (97 ??F) (Temporal) Resp 18 Wt 53.2 kg (117 lb 3.2 oz) SpO2 97% BMI 22.50 kg/m?? Musculoskeletal: No peripheral synovitis erythema or warmth noted incomplete extension of the digits positive prayer sign no specific joint tenderness. Physical Exam Constitutional: General: She is not in acute distress. Appearance: She is not toxic-appearing. HENT: Head: Normocephalic and atraumatic. Right Ear: External ear normal. Left Ear: External ear normal. Nose: Nose normal. Eyes: General: No scleral icterus. Right eye: No discharge. Left eye: No discharge. Conjunctiva/sclera: Conjunctivae normal. Pulmonary: Effort: Pulmonary effort is normal. No respiratory distress. Breath sounds: Normal breath sounds. No stridor. No wheezing, rhonchi or rales. Chest: Chest wall: No tenderness. Abdominal: Palpations: Abdomen is soft. Tenderness: There is no abdominal tenderness. There is no guarding or rebound. Musculoskeletal: General: Deformity present. No swelling, tenderness or signs of injury. Skin: Coloration: Skin is not jaundiced or pale. Findings: No bruising, erythema, lesion or rash. Neurological: Mental Status: She is alert and oriented to person, place, and time. Psychiatric: Mood and Affect: Mood normal. Behavior: Behavior normal. Thought Content: Thought content normal. Judgment: Judgment normal. Impression/Recommendations : Shereen Vega is a 72 y.o. female who presents today with PsA and OA with stable symptomologypatient does not feel she needs any medical intervention in any event she also does not feel she can afford it. We will make no pharmaceutical changes today per her preference and see her again on a as needed basis patient in agreement. documented in this encounter Plan of Treatment Upcoming Encounters Date Type Department Care Team (Late st Contact Info) Description 03/01/2024 1:30 PM EST Office Visit Hematology/Oncology at [address] [phone] Imer Baker MD [facility] [place] [address] Heidi Cruz APRN [address] [place] [address] [place] [address] 03/01/2024 2:00 PM EST Infusion Hematology Oncology at [address] [phone] 03/23/2024 11:30 AM EST TH Visit (TeleHealth) [place] [address] Tory Willard APRN [facility] [place] [address] documented as of this encounter Visit Diagnoses Diagnosis Psoriatic arthritis- Primary Psoriatic arthropathy Long-term use of high-risk medication Osteoarthritis, unspecified osteoarthritis type, unspecified site documented in this encounter Care Teams Practice Professional Relationship Specialty Start Date End Date Maricarmen Galvan APRN PCP - General Family Medicine 05/10/18 07/28/23 documented as of this encounter
--- OUTSIDE RECORDS SUMMARY | 2024-02-21 13:24 | XMS_ITS | Encounter Summary ---
Author Organization [facility] Address [facility] [address] [address] Care Team Providers Care Race Relations Adviser Name Role Phone Maricarmen Galvan PUBLIC AFFAIRS MANAGER Primary Care Provider [phone] Encounter Details Date Type Department Care Team (Late st Contact Info) Description 02/12/2023 2:05 PM EST Ancillary Procedure Radiology Library at [facility] [address] [phone] Maricarmen Galvan APRN [address] [place], [place] [address] Social History Tobacco Use Types Packs/Day Years Used Date Smoking Tobacco: Never Smokeless Tobacco: Never Alcohol Use Standard Drinks/Week Comments No 0 (1 standard drink = 0.6 oz pur e alcohol) [facility] Utilities Answer Date Recorded In the past [...] money to buy more. Never true 02/05/20 23 Within the past 12 months, t he [...] place to sleep or slept in a chcf (including now)? No 02/04/2023 Sex and Gender Information Value Date Recorded Sex Assigned at Not on file Gender Identity Not on file Sexual Orientation Not on file documented as of this encounter Plan of Treatment Upcoming Encounters Date Type Department Care Team (Late st Contact Info) Description 03/01/2024 1:30 PM EST Office Visit Hematology/Oncology at [address] [phone] [facility] [place] [address] Heidi Cruz [address] [place] [address] 03/01/2024 2:00 PM EST Infusion Hematology Oncology at [address] [phone] 03/23/2024 11:30 AM EST TH Visit (TeleHealth) [place] [address] Tory Willard [facility] [place] [address] documented as of this encounter Procedures Procedure Name Priority Date/Time Associated Diagnosis Comments FILM LIBRARY STORAGE ONLY ULTRASOUND STUDY Routine 02/12/2023 2:01 PM EST documented in this encounter Results * Film Library- Storage Only Ultrasound Study (02/12/2023 2:01 PM EST) Narrative GIO FONSECA - 02/12/2023 2:01 PM EST This exam is auto-finalizing. It's purpose is for storage only. Maricarmen Galvan APRN IMG FILM LIBRARY ORD ERABLES RAY[place]DO [place], [place] documented in this encounter Visit Diagnoses Not on filedocumented in this encounter Care Teams Race Relations Adviser Relationship Specialty Start Date End Date Maricarmen Galvan, JORGE PCP - General Family Medicine 05/10/18 07/28/23 documented as of this encounter
--- OUTSIDE RECORDS SUMMARY | 2024-02-21 13:24 | XMS_ITS | Encounter Summary ---
Author Organization [facility] [place] [address] Care Team Providers Care Draw End Hand Name Role Phone Maricarmen Galvan JORGE Primary Care Provider [phone] Encounter Details Date Type Department Care Team (Late st Contact Info) Description 11/12/2022 [place] [address] Michelle Lanier Social History Tobacco Use Types Packs/Day Years [...] 1:30 PM EST Office Visit Hematology/Oncology at [address] [phone] Imer Baker MD [facility] DR [place] [address] Heidi Cruz APRN [address] [place] [address] DR MEDICAL ONCOLOGY [place], [place] [address] 03/01/2024 2:00 PM EST Infusion Hematology Oncology at [address] [phone] 03/23/2024 11:30 AM EST TH Visit (TeleHealth) [place] [address] Tory Willard APRN [facility] [place] [address] documented as of this encounter Visit Diagnoses Not on filedocumented in this encounter Care Teams Draw End Hand Relationship Specialty Start Date End Date Maricarmen Galvan APRN PCP - General Family Medicine 05/10/18 07/28/23 documented as of this encounter
--- OUTSIDE RECORDS SUMMARY | 2024-02-21 13:24 | XMS_ITS | Encounter Summary ---
Author Organization [facility] [place] [address] Care Team Providers Care Syrup Filterer Name Role Phone Maricarmen Galvan JORGE Primary Care Provider [phone] Encounter Details Date Type Department Care Team (Latest Contact Info) Description 06/24/2022 9:30 AM EDT Laboratory Appointment Lab [address] [place] [phone] Hepatic cirrhosis, unspecified hepatic cirrhosis type, unspecified [...] 1:30 PM EST Office Visit Hematology/Oncology at [address] [phone] Imer Baker MD [facility] DR [place] [address] Heidi Cruz APRN [address] [place] [address] DR MEDICAL ONCOLOGY [place], [place] [address] 03/01/2024 2:00 PM EST Infusion Hematology Oncology at [address] [phone] 03/23/2024 11:30 AM EST TH Visit (TeleHealth) [place] [phone] Tory Willard APRN [facility] [place] [address] documented as of this encounter Procedures Procedure Name Priority Date/Time Associated Diagnosis Comments HEMOGRAM Routine 06/24/2022 11:14 AM EDT Hepatic cirrhosis, unspecified hepatic cirrhosis type, unspecified whether ascites present DIFFERENTIAL, AUTOMATED Routine 06/24/2022 11:14 AM EDT Hepatic cirrhosis, unspecified hepatic cirrhosis type, unspecified whether ascites present AFP TUMOR MARKER Routine 06/24/2022 11:1 4 AM EDT Hepatic cirrhosis, unspecified hepatic cirrhosis type, unspecified whether ascites present PROTHROMBIN TIME Routine 06/24/2022 11:1 4 AM EDT Hepatic cirrhosis, unspecified hepatic cirrhosis type, unspecified whether ascites present HC CBC,PLT & AUTO DIFF Routine 11:14 AM EDT Hepatic cirrhosis, unspecified hepatic cirrhosis type, unspecified whether ascites present COMPREHENSIVE METABOLIC PANEL Routine 06/24/2022 11:14 AM EDT Hepatic cirrhosis, unspecified hepatic cirrhosis type, unspecified whether ascites present documented in this encounter Results * (ABNORMAL) Differential, Automated (06/24/2022 11:14 AM EDT) Neutrophil % 44.9 % [facility] Neutrophil Absolute 2.31 1.70 - 6.10 x10(3)/mc L [facility] Lymph % 32.6 % [facility] Lymphocytes Abs 1.7 0.9 - 3.2 x10(3)/mc L [facility] Monocyte % 8.6 % [facility] Monocyte Abs 0.4 0.3 - 0.9 x10(3)/mc L [facility] Eos % 12.3 % [facility] Eosinophils Abs 0.6(H) 0.0 - 0.4 x10(3)/mc L [facility] Basophil % 1.2 % [facility] Baso Absolute 0.1 0.0 - 0.1 x10(3)/ L [facility] Immature Gran % 0.40 % [facility] Comment: Immature granulocytes(IG's)percentage and absolute count will include metamyelocytes, myelocytes, and promyelocytes. Blood smears from CBCs yielding IG's will be scanned manually for concordance. If this scan disagrees with the automated IG or if promyelocytes are noted, a manual differential will be performed. Immature Gran Absolute 0.02 0.00 - 0.04 x10(3)/ L [facility] Blood 06/24/2022 11:1 4 AM EDT 06/24/2022 11:18 AM EDT Narrative Resulting Agency Comment Spec In Lab Tory Willard APRN HEMATOLOGY ORDERAB LES Performing Organization Address City/State/[facility] Co de Phone Number [facility] [place] [address] * (ABNORMAL) Hemogram (06/24/2022 11:14 AM EDT) White Blood Cell 5.1 4.0 - 9.5 x10(3)/ L [facility] Red Blood Cell 4.31 4.00 - 5.21 x10(6)/[facility] Hemoglobin 10.0(L) 11.7 - 15.5 g/dL [facility] Hematocrit 33.5(L) 35.7 - 45.8 % [facility] Mean Cell Volume 77.7(L) 82.6 - 94.4 fL [facility] Mean Cell Hemoglobin 23.2(L) 27.1 - 32.0 pg [facility] Mean Cell Hemoglobin Concentration 29.9(L) 31.7 - 35.0 g/dL [facility] Platelet 98(L) 145 - 357 x10(3)/[facility] LAB[facility]AT[facility] RDW Standard Deviation 46.5(H) 37.0 - 46.0 fL [facility] RDW coefficient of variation 16.5(H) 11.5 - 14.1 % [facility] Mean Platelet Volume 9.5 7.6 - 12.9 fL [facility] NRBC% auto 0.0 % [facility] NRBC Absolute 0.000 0.000 - 0.000 x10(3)/mc L [facility] Blood 06/24/2022 11:1 4 AM EDT 06/24/2022 11:18 AM EDT Narrative Resulting Agency Comment Spec In Lab Tory A [place] DYNAMIC ETCHING PROCESSOR HEMATOLOGY ORDERAB LES [facility] [address] [place] [address] * (ABNORMAL) Comprehensive metabolic panel (non-fasting) (06/24/2022 11:14 AM EDT) Glucose 189 65 - 199 mg/dL [facility] Comment:Diabetes: >=200 mg/d L plus symptoms Blood Urea Nitrogen 13 8 - 18 mg/dL [facility] Creatinine 0.66(L) 0.70 - 1.20 mg/dL [facility] Sodium 140 135 - 145 mmol/L [facility] Potassium 3.9 3.5 - 5.0 mmol/L [facility] Comment: Please note: ??Patients with WBC >100,000 may have falsely elevated Potassium levels. ??For accurate Potassium quantification in these patients send serum separator tube (gold top) for subsequent determinations. ??Contact the Clinical Chemistry Laboratory if there are any questions. Chloride 103 98 - 107 mmol/L [facility] Carbon Dioxide 25 22 - 31 mmol/L [facility] Anion Gap 12 5 - 15 mmol/L [facility] Calcium 9.4 8.5 - 10.5 mg/dL [facility] Protein, Total 8.6(H) 6.1 - 8.0 g/dL [facility] Albumin 4.6 3.2 - 5.2 g/dL [facility] Aspartate Aminotransferase 23 0 - 30 unit/L [facility] Alanine Aminotransferase 14 0 - 30 unit/L [facility] Alkaline Phosphatase 63 35 - 105 unit/L [facility] Bilirubin, Total 0.4 0.2 - 1.3 mg/dL [facility] Est Glomerular Filtration Rate 93 >=60 mL/min/1. 73 m?? [facility] Comment: This patient's estimated GFR was [...] Comment Spec In Lab Tory Willard APRN CHEMISTRY ORDERABL ES Performing Organization Address [facility] Co de Phone Number [facility] [place] [address] * Prothrombin Time (06/24/2022 11:14 AM EDT) Prothrombin Time 11.8 9.4 - 12.5 sec [facility] International Normalization Ratio 1.0 [facility] Comment: An INR <2.0 indicates adequate [...] Spec In Lab Tory Willard APRN HEMATOLOGY ORDERAB LES Performing Organization Address [facility] Co de Phone Number [facility] [place] [address] * AFP tumor marker (06/24/2022 11:14 AM EDT) Alpha Fetoprotein <1.9 <=8.3 ng/mL [facility] Comment: This result was generated using a Cliff Divina immunoassay. ??Results obtained from other methods or manufacturers cannot be used interchangeably with this method. Blood 06/24/2022 11:1 4 AM EDT 06/24/2022 11:18 AM EDT Narrative Resulting Agency Comment Spec In Lab Tory Willard APRN CHEMISTRY ORDERABL ES Performing Organization Address City/State/[facility] Co de Phone Number [facility] [place] [address] documented in this encounter Visit Diagnoses Diagnosis Hepatic cirrhosis, unspecified hepatic cirrhosis type, unspecified whether ascites present documented in this encounter Care Teams Syrup Filterer Relationship Specialty Start Date End Date Maricarmen Galvan APRN PCP - General Family Medicine 05/10/18 07/28/23 documented as of this encounter
--- OUTSIDE RECORDS SUMMARY | 2024-02-21 13:24 | XMS_ITS | Encounter Summary ---
Author Organization [facility] Address [facility] [place] [address] Care Team Providers Care Laboratory Clerk Name Role Phone Kaci Vasquez MD Primary Care Provider [phone] Reason for Visit * Reason Comments IV Medication Ferritin * Treatment/Therapy Plan Authorization (Routine) - Authorized Specialty Diagnoses / Procedures Referred By Contac t Referred To Contact Hematology and Oncology Diagnoses Iron deficiency anemia, unspecified iron deficiency anemia type Procedures Ferric Derisomaltose (Monoferric) Infusion ([facility] [place], [place], [facility], [facility], [facility]) Iron Deficiency Anemia - As of 02/04/2023 11:58 AM Imer Baker MD [facility] [address] [place] [address] Stj Hem Onc Infusion [address] [place] [id number] Referral ID Status Reason Start Date Expiration Date V isits Requested Visits Authorized [id number] Authorized 02/04/2023 02/25/2024 99 101 Encounter Details Date Type Department Care Team (Late st Contact Info) Description 07/29/2023 12:00 PM EDT Infusion Hematology Oncology at [address] [phone] Iron deficiency anemia, unspecified iron deficiency anemia type Social History Tobacco Use Types Packs/Day Years Used Date Smoking Tobacco: Never Smokeless Tobacco: Never Alcohol Use Standard Drinks/Week Comments No 0 (1 standard drink = 0.6 oz pur e alcohol) [facility] Utilities Answer Date Recorded In the [...] place to sleep or slept in a fci (including now)? No 02/04/2023 Sex and Gender Information Value Date Recorded Sex Assigned at Not on file Gender Identity Not on file Sexual Orientation Not on file documented as of this encounter Progress Notes * Phyllis Kirby RN - 07/29/2023 12:00 PM EDT INFUSION THERAPY ADMINISTRATION NOTES DIAGNOSIS: NISHA REASON FOR VISIT: Monoferric SUBJECTIVE Shereen Judy Gary offers no complaints. OBJECTIVE LAB DATA: Ferritin 24 on 07/27/23 at [facility] IV ACCESS: PIV REACTIONS (DESCRIPTION, TIME, INTERVENTION AND EFFECTIVENESS) none ASSESSMENT Sharri was awake, alert and tolerated treatment well. She states she has had this previously and didnot want to wait the 30 minute observation period today. PLAN Return to clinic per routine. documented in this encounter Plan of Treatment Upcoming Encounters Date Type Department Care Team (Late st Contact Info) Description 03/01/2024 1:30 PM EST Office Visit Hematology/Oncology at [address] [phone] Imer Baker MD [facility] DR [place] [address] Heidi Cruz, [address] [place] [address] 03/01/2024 2:00 PM EST Infusion Hematology Oncology at [address] [phone] 03/23/2024 11:30 AM EST TH Visit (TeleHealth) [place] [address] [facility] [place] [address] documented as of this encounter Visit Diagnoses Diagnosis Iron deficiency anemia, unspecified iron deficiency anemia type documented in this encounter Administered Medications Inactive Administered Medications - up to 3 most recent administrations Medication Order MAR Action Action Date Dose Rate Site ferric derisomaltose (Monoferric) 1,000 mg in sodium chloride 0.9% 110 mL infusion 1,000 mg, Intravenous, ONCE, 1 dose, On Janessa 07/29/23 at 1300, Administer over 20 Minutes, Administer over at least 20 minutes. Monitor for 30 minutes after infusion for hypersensitivity reactions. Compatible only in sodium chloride 0.9%, This agent is restricted to outpatient use. Is this drug being given as an outpatient? Yes New Bag 07/29/2023 12:42 PM EDT 1,000 mg 330 mL/hr documented in this encounter Care Teams Laboratory Clerk Relationship Specialty Start Date End Date Kaci Vasquez MD [address] [place] [address] PCP - General Family Medicine 07/29/23 documented as of this encounter
--- OUTSIDE RECORDS SUMMARY | 2024-02-21 13:24 | XMS_ITS | Encounter Summary ---
Author Organization [facility] Address [facility] [place] [address] Care Team Providers Care Senior Private Client Advisor Name Role Phone Maricarmen Galvan JORGE Primary Care Provider [phone] Encounter Details Date Type Department Care Team (Late st Contact Info) Description 03/11/2023 Telephone Hematology/Oncology at [address] [phone] Merissa Cardona Social History Tobacco Use Types Packs/Day Years Used Date Smoking Tobacco: Never Smokeless Tobacco: Never Alcohol Use Standard Drinks/Week Comments No 0 (1 standard drink = 0.6 oz pur e alcohol) [facility] Utilities Answer Date Recorded In the past 12 months has e electric, gas, oil, or water company [...] place to sleep or slept in a senior care (including now)? No 02/04/2023 Sex and Gender Information Value Date Recorded Sex Assigned at Not on file Gender Identity Not on file Sexual Orientation Not on file documented as of this encounter Miscellaneous Notes * Telephone Encounter - Merissa Cardona - 03/11/2023 10:07 AM EST Shereen's called and asked for her appt to be rescheduled due to transportation. I rescheduled the appt on 03/25/23,, They are aware of the new day and time will mail out a new reminder documented in this encounter Plan of Treatment Upcoming Encounters Date Type Department Care Team (Late st Contact Info) Description 03/01/2024 1:30 PM EST Office Visit Hematology/Oncology at [address] [phone] Imer Baker MD [facility] [place]ATOLOGY [place] [address] Heidi Cruz [employer] [facility] [address] [place] [address] [place] [address] 03/01/2024 2:00 PM EST Infusion Hematology Oncology at [address] [phone] 03/23/2024 11:30 AM EST TH Visit (TeleHealth) [place] [address] Tory Willard APRN [facility] [place] [address] documented as of this encounter Visit Diagnoses Not on filedocumented in this encounter Care Teams Senior Private Client Advisor Relationship Specialty Start Date End Date Maricarmen Galvan APRN PCP - General Family Medicine 05/10/18 07/28/23 documented as of this encounter
--- OUTSIDE RECORDS SUMMARY | 2024-02-21 13:24 | XMS_ITS | Encounter Summary ---
[place] [address] Care Team Providers Care Care Information Associate Name Role Phone Maricarmen Galvan JORGE Primary Care Provider [phone] Reason for Referral * Consultation (Routine) - Closed Specialty Diagnoses / Procedures Referred By Contac t Referred To Contact Hematology and Oncology Diagnoses Iron deficiency anemia, unspecified iron deficiency anemia type Thrombocytopenia, unspecified Kaci Vasquez MD [address] [place] [address] [facility] Hem Onc [address] [place] [address] Referral ID Status Reason Start Date Expiration Date V isits Requested Visits Authorized [id number] Closed Consult, Test & Treat PCP Updated and/or Approved 10/14/2022 10/14/2023 12 12 Encounter Details Date Type Department Care Team (Latest Contact Info) Description 10/14/2022 Transcribe Orders eDH Incoming Referrals [phone] Kaci Vasquez MD [address] [place] [address] Iron deficiency anemia, unspecified iron deficiency anemia type; Thrombocytopenia, unspecified Social History Tobacco Use Types Packs/Day Years [...] 1:30 PM EST Office Visit Hematology/Oncology at [address] [phone] Imer Baker MD [facility] DR HEMATOLOGY [place] [address] Heidi Cruz [address] [place] [address] 03/01/2024 2:00 PM EST Infusion Hematology Oncology at [address] [phone] 03/23/2024 11:30 AM EST TH Visit (TeleHealth) [place] [address] Tory [address]ard [facility] [place] [address] Scheduled Referrals Name Type Priority Associated Diagnoses Orde r Schedule Referral to Hematology and Oncology Outpatient Referral Routine Iron deficiency anemia, unspecified iron deficiency anemia type Thrombocytopenia, unspecified Ordered: 10/14/2022 documented as of this encounter Visit Diagnoses Diagnosis Iron deficiency anemia, unspecified iron deficiency anemia type Thrombocytopenia, unspecified documented in this encounter Care Teams Care Information Associate Relationship Specialty Start Date End Date Maricarmen Galvan APRN PCP - General Family Medicine 05/10/18 07/28/23 documented as of this encounter
--- OUTSIDE RECORDS SUMMARY | 2024-02-21 13:24 | XMS_ITS | Continuity of Care Document ---
Author Organization [facility] Ambulatory Clinics Address [address] [place] [address] Care Team Providers Care Top Stop Attacher Name Role Phone MADAY GUTIÉRREZ Primary Care Physician [phone] Encounter [facility] NBR [id number] Date(s): 06/11/23 - 06/11/23 [facility] [address] [place], [place] [address] Encounter Diagnosis Parkinson disease(Discharge Diagnosis) - 06/11/23 Parkinsonism(Discharge Diagnosis) - 06/11/23 Discharge Disposition: Home or Self Care Attending Physician: Lex Schofield MD Referring Physician: MADAY GUTIÉRREZ Allergies, Adverse Reactions, Alerts Substance Reaction Severity Status erythromycin Unknown Unknown Active hydroxychloroquine Unknown Unknown Active penicillin G benzathine Unknown Unknown Acti ve quiNINE severe thrombocytopenia Unknown Acti ve Assessment and Plan Extracted from: Title:Neuro Office Visit Note Author:Lex Schofield MD Date:06/11/23 Impression: ?? 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 2) Parkinson's disease mild cognitive impairment ? Motor symptoms have improved after starting Sinemet, no side effects so far. Memory with no further decline. No changes in ADLs.?? Sleep after starting trazodone. ? Plan: ? Continue??Sinemet 25/100 mg three times a day. ?? Continue gabapentin 700 mg TID for now,??PCP may consider to??switch to duloxetine. ?? Continue trazodone??25 mg PRN for insomnia and worsening anxiety.? Continue speech therapy for SPEAK OUT therapy and management of swallowing difficulties ?? Continue ??PT/OT for fall prevention ? Return to clinic in??4 months ? Future Appointments Future Scheduled Tests Radiology* MRI Brain w/o Contrast 10/29/22 Functional Status 06/11/23 Recent Travel History No recent travel Medications aspirin 81 mg oral capsule 81 [...] Most recent to oldest [Reference Range]: 1 2 Weight 54.88 kg (06/11/23 12:40 PM) 51.44 kg (06/11/23 12:35 PM) Weight Measured (lbs) 120.99 lb (06/11/23 12:40 PM) 113.406 lb (06/11/23 12:35 PM) Weight Dosing 51.440 kg (06/11/23 12:35 PM) [place] Body Weight Calculated 47.8 kg (06/11/23 12:40 PM) 47.8 kg (06/11/23 12:35 PM) Height 154.94 cm (06/11/23 12:40 PM) 154.94 cm (06/11/23 12:35 PM) Height/Length Measured (inches) 61 inch (06/11/23 12:40 PM) 61 inch (06/11/23 12:35 PM) BSA Measured 1.54 m2 (06/11/23 12:40 PM) 1.49 m2 (06/11/23 12:35 PM) Body Mass Index 22.86 kg/m2 (06/11/23 12:40 PM) 21.43 kg/m2 (06/11/23 12:35 PM) Social History Social History Type Response Tobacco Former tobacco user Tobacco Use:. Started age 15.0 Years. Stopped age 15 Years. Sex Physician Outpatient Note * Lex Schofield MD: PERFORM, MODIFY, MODIFY Event Display: Office Clinic Note Physician Authored Date: [id number] ELEAZAR SORIANO :1950 Age:73 years Sex:Female Visit Date:06/11/2023 Primary Care Physician: MADAY GUTIÉRREZ History of Present Illness Interval History: ?? Follow-up of parkinsonism and cognitive impairment. ?? Patient is accompanied by Mr. Girish Soriano. ?? Cognitive: ?? They mentioned that is still having some word finding difficulties but is not getting worse. They met with speech therapy, had few sessions and found it helpful however stopped them for some time and is planning to restart them soon. She has some concentration difficulties but still able to complete tasks. Paroxetine and tramadol were discontinued ?? Neuropsychiatry: ?? Mood has been stable. No hallucinations or delusions. ?? Sleep: ?? She feels that trazodone 25 mg at bedtime has been very helpful. ?? Motor: ?? She feels that slowness has improved. She feels that tremor is still present but slightly improved. She feels that stiffens also improved but happens more frequently in the evening. No falls. ?? Autonomic: ?? No constipation. No urinary or fecal incontinence. No syncope. ?? ADLs: No decline. ?? Physical Exam Vitals & Measurements HT:??154.94??cm?? WT:??54.88??kg?? BMI:??22.86?? BSA:??1.54?? General Physical Examination: ?? General:??well nourished, in [...] Improved compared to last visit). En bloc turning (improved).??Pull test was negative. ?? Assessment/Plan Impression: ?? 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 2) Parkinson's disease mild cognitive impairment ?? Motor symptoms have improved after starting Sinemet, no side effects so far. Memory with no furtherdecline. No changes in ADLs.?? Sleep after starting trazodone. ?? Plan: ?? Continue??Sinemet 25/100 mg three times a day. Continue gabapentin 700 mg TID for now,??PCP may consider to??switch to duloxetine. Continue trazodone??25 mg PRN for insomnia and worsening anxiety.? Continue speech therapy for SPEAK OUT therapy and management of swallowing difficulties Continue ??PT/OT for fall prevention ?? Return to clinic in??4 months Problem List/Past [...] 15 Years. Attending Attestation Lex Lima MD [facility]? I personally spent a total of 40 minutes??providing direct??care for this patient on the date of the encounter.?? Electronically Signed on 06/11/23 03:49 PM Lex Schofield MD Patient Care team information Care Team Personnel Name: MADAY GUTIÉRREZ Position: No Access Member Role: Primary Care Physician Address: Address: [address] [place] [address]- Care Team Related Persons Name: GIRISH SORIANO
--- OUTSIDE RECORDS SUMMARY | 2024-02-21 13:24 | XMS_ITS | Encounter Summary ---
Author Organization [facility] Address [facility] [place] [address] Care Team Providers Care Flight Software Test Engineer Name Role Phone Kaci Vasquez MD Primary Care Provider [phone] Encounter Details Date Type Department Care Team (Late st Contact Info) Description 09/13/2023 1:45 PM EDT Ancillary Procedure Radiology Library at [facility] [address] [phone] Kaci Vasquez MD [address] [place], [place] [id number] Social History Tobacco Use Types Packs/Day Years Used Date Smoking Tobacco: Never Smokeless Tobacco: Never Alcohol Use Standard Drinks/Week Comments No 0 (1 standard drink = 0.6 oz pur e alcohol) [facility] Utilities Answer Date Recorded In the past [...] place to sleep or slept in a prison (including now)? No 02/04/2023 Sex and Gender Information Value Date Recorded Sex Assigned at Not on file Gender Identity Not on file Sexual Orientation Not on file documented as of this encounter Plan of Treatment Upcoming Encounters Date Type Department Care Team (Late st Contact Info) Description 03/01/2024 1:30 PM EST Office Visit Hematology/Oncology at [address] [phone] Imer Baker MD [facility] DR [place] [address] Heidi Cruz [address] [place] [address] 03/01/2024 2:00 PM EST Infusion Hematology Oncology at [address] [phone] 03/23/2024 11:30 AM EST TH Visit (TeleHealth) [place] [address] Tory Willard APRN [facility] [place] [address] documented as of this encounter Procedures Procedure Name Priority Date/Time Associated Diagnosis Comments FILM LIBRARY STORAGE ONLY ULTRASOUND STUDY Routine 09/13/2023 1:41 PM EDT documented in this encounter Results * Film Library- Storage Only Ultrasound Study (09/13/2023 1:41 PM EDT) Narrative RAYMUNDO - 09/13/2023 1:41 PM EDT This exam is auto-finalizing. It's purpose is for storage only. Kaci Vasquez MD G FILM LIBRARY ORD ERABLES Performing Organization Address City/State/[facility] Co de Phone Number [place], [place] documented in this encounter Visit Diagnoses Not on filedocumented in this encounter Care Teams Flight Software Test Engineer Relationship Specialty Start Date End Date Kaci Vasquez MD [address] [place] [address] PCP - General Family Medicine 07/29/23 documented as of this encounter
--- OUTSIDE RECORDS SUMMARY | 2024-02-21 13:24 | XMS_ITS | Encounter Summary ---
Author Organization [facility] [place] [address] Care Team Providers Care Occupational Ther Name Role Phone Maricarmen Galvan APRN Primary Care Provider [phone] Encounter Details Date Type Department Care Team (Late st Contact Info) Description 01/06/2022 Notes Only Gastroenterology at [facility] [place] [phone] Sharri Oconnor RN Social History Tobacco Use Types Packs/Day Years Used Date Smoking Tobacco: Never Smokeless Tobacco: Never Alcohol Use Standard Drinks/Week Comments No 0 (1 standard drink = 0.6 oz pur e alcohol) Sex and Gender Information Value Date Recorded Sex Assigned at Not on file Gender Identity Not on file Sexual Orientation Not on file documented as of this encounter Progress Notes * Sharri Oconnor RN - 01/06/2022 11:59 AM EST Call paced to PCP office to follow-up on request to help arrange EGD locally. Re-faxed requisition and liver nurse contact information. Pending response from PCP. * Sharri Oconnor RN - 01/06/2022 11:59 AM EST Confirmed with PCP office that EGD order placed and sent to [facility]. Pending scheduling. * Sharri Oconnor RN - 01/06/2022 11:59 AM EST Lvmm for scheduling at [facility] requesting update on scheduling EGD. Unable to reach patient to discuss as her listed telephone number is not accepting calls. documented in this encounter Plan of Treatment Upcoming Encounters Date Type Department Care Team (Late st Contact Info) Description 03/01/2024 1:30 PM EST Office Visit Hematology/Oncology at [address] [phone] Imer Baker MD [facility] DR [place] [address] Heidi Crzu [employer] [address] [place] [address] [place] [address] 03/01/2024 2:00 PM EST Infusion Hematology Oncology at [address] [phone] 03/23/2024 11:30 AM EST TH Visit (TeleHealth) [place] [address] Tory Willard APRN [facility] [place] [address] documented as of this encounter Visit Diagnoses Not on filedocumented in this encounter Care Teams Occupational Ther Relationship Specialty Start Date End Date Maricarmen Galvan APRN PCP - General Family Medicine 05/10/18 07/28/23 documented as of this encounter
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
--- OUTSIDE RECORDS SUMMARY | 2024-02-21 13:24 | XMS_ITS | Encounter Summary ---
Author Organization Formerly [facility] [place] [address] Care Team Providers Care Stem Cutter Name Role Phone Maricarmen Galvan APRN Primary Care Provider [phone] Encounter Details Date Type Department Care Team (Late Contact Info) Description 12/24/2021 Telephone [place] [phone] Ajay Montiel Social History Tobacco Use Types Packs/Day Years [...] encounter Miscellaneous Notes * Telephone Encounter - Ajay Montiel - 12/24/2021 4:07 PM EDT I called patient to schedule, patient asked to be transferred to Tory Willard office. She wants to ask her to request this be done at [facility] instead of here. I transferred call to the Hepatology nurses line documented in this encounter Plan of Treatment Upcoming Encounters Date Type Department Care Team (Late Contact Info) Description 03/01/2024 1:30 PM EST Office Visit Hematology/Oncology at [address] [phone] Imer Baker MD [facility] DR HEMATOLOGY [place] [address] Heidi Cruz APRN [address] [place] [address] [place] [address] 03/01/2024 2:00 PM EST Infusion Hematology Oncology at [address] [phone] 03/23/2024 11:30 AM EST TH Visit (TeleHealth) [place] [address] Tory Willard BRAND MARKETING SPECIALIST [facility] [place] [address] documented as of this encounter Visit Diagnoses Not on filedocumented in this encounter Care Teams Stem Cutter Relationship Specialty Start Date End Date Maricarmen Galvan APRN PCP - General Family Medicine 05/10/18 07/28/23 documented as of this encounter
--- OUTSIDE RECORDS SUMMARY | 2024-02-21 13:24 | XMS_ITS | Encounter Summary ---
Author Organization [facility] Address [facility] [place] [address] Care Team Providers Care Senior Environmental Consultant Name Role Phone Kaci Vasquez MD Primary Care Provider [phone] Encounter Details Date Type Department Care Team (Late st Contact Info) Description 07/29/2023 11:30 AM EDT Office Visit Hematology/Oncology at [address] [phone] Imer Baker MD [facility] DR HEMATOLOGY [place] [address] Heidi Cruz APARTMENT RENTAL AGENT [address] [place] [address] [place] [address] Iron deficiency anemia, unspecified iron deficiency anemia type Social History Tobacco Use Types Packs/Day Years Used Date Smoking Tobacco: Never Smokeless Tobacco: Never Alcohol Use Standard Drinks/Week Comments No 0 (1 standard drink = 0.6 oz pur e alcohol) [facility] Utilities Answer Date Recorded In the past 12 months has [employer], gas, oil, or water [employer] threatened to shut off services in your [...] Sign Reading Time Taken Comments Blood Pressure 118/70 07/29/2023 11:32 AM EDT Pulse 99 07/29/2023 11:32 AM EDT Temperature 36.7 ??C (98.1 ??F) 07/29/2023 1 1:32 AM EDT Respiratory Rate 16 07/29/2023 11:3 2 AM EDT Oxygen Saturation 97% 07/29/2023 11: 32 AM EDT Inhaled Oxygen Concentration - - Weight 49.4 kg (108 lb 12.8 oz) 024 11:32 AM EDT Height 153.7 cm (5' 0.51) 07/29/2023 1 1:32 AM EDT Body Mass Index 20.89 07/29/2023 11:32 AM EDT documented in this encounter Progress Notes * Heidi Cruz APRN - 07/29/2023 11:30 AM EDT Subjective Patient ID: Shereen Vega is a 73 y.o. female. HPI Sharri is here with her to follow up on her iron deficiency after being treated with IV monoferric 1000mg nearly 6 months ago. She reports she felt quite a bit better after the infusion. She had more energy and was no longer eating ice. Ice craving has not returned since. She denies any bleeding or bruising. No recent illnesses. Her energy has been ok although she has been quite tired over the past few weeks. The warmer weather slows her down. She is able to clean their home and do all ADLs independently. She does take breaks. No signifcant SOB. They had to move fairly recently which was stressful but they are settling now. She is intolerant of oral iron as it causes significant constipation. She would like to focus on increasing iron in her diet and is curious about sources. Patient Active Problem List Diagnosis Code Balance [...] I77.810 Atrophic vaginitis N95.2 Bilateral cataracts H26.9 Anemia, iron deficiency D50.9 Current Outpatient Medications: cefPODOXime (Vantin) 200 mg tablet, Take 200 mg by mouth 2 times daily., Disp: , Rfl: nitroGLYcerin (Nitrostat) 0.4 mg sublingual tablet, Place 0.4 mg under the tongue every 5 minutes as needed for Chest pain., Disp: , Rfl: SITagliptin phosphate (Januvia) 100 mg tablet, Take 100 mg by mouth daily., Disp: , Rfl: carbidopa-levodopa CR (Sinemet CR) 25-100 mg ER tablet, Take 1 tablet by mouth 2 times daily., Disp: , Rfl: traZODone (Desyrel) 50 mg tablet, Take 25 mg by mouth as needed for Sleep. new, Disp: , Rfl: canagliflozin (Invokana) 100 mg tablet, Take 100 mg by mouth daily., Disp: , Rfl: gabapentin (Neurontin) 100 mg capsule, Take 100 mg by mouth 3 times daily., Disp: , Rfl: albuteroL 90 mcg/actuation HFA [...] U-100 (Levemir FlexTouch U-100 Insuln) Insulin Pen, 20 Units 2 times daily., Disp: , Rfl: fluticasone propionate (FLOVENT) 110 [...] chloride (SLOW-MAG ORAL), Take 64 mg by mouth 2 times daily., Disp: , Rfl: levothyroxine (SYNTHROID) 75 mcg tablet, Take 50 mcg by mouth daily., Disp: , Rfl: aspirin 81 mg EC tablet, Take 81 mg by mouth daily., Disp: , Rfl: lovastatin (MEVACOR) 40 mg tablet, Take 40 mg by mouth nightly., Disp: , Rfl: metFORMIN (GLUCOPHAGE) 500 mg tablet, Take 1,000 mg by mouth daily., Disp: , Rfl: Current Facility-Administered Medications: diclofenac (VOLTAREN) 1% topical gel 2 g, 2 g, Topical (Top), 4 Times Daily, Manny Lugo MD Allergies Allergen Reactions Erythromycin Base Abdominal pain Penicillins Hives Plaquenil [Hydroxychloroquine] Reaction unknown Quinine Thrombocytopenia Sulfasalazine Patient not sure about reaction. Review of Systems Constitutional: Negative for activity change, appetite change, chills, fatigue, fever and unexpected weight change. HENT: Negative for nosebleeds. Respiratory: Negative for cough and shortness of breath. Cardiovascular: Negative for chest pain and palpitations. Gastrointestinal: Negative for abdominal pain and diarrhea. Musculoskeletal: Negative for back pain. Skin: Negative for rash. Neurological: Positive for tremors (Parkinson's). Negative for speech difficulty. Hematological: Negative for adenopathy. Does not bruise/bleed easily. Objective BP 118/70 (Patient Position: Sitting) Pulse 99 Temp 36.7 ??C (98.1 ??F) (Temporal) Resp 16 Ht 153.7 cm (5' 0.51) Wt 49.4 kg (108 lb 12.8 oz) SpO2 97% BMI 20.89 kg/m?? Physical Exam Vitals reviewed. Constitutional: General: She is not in acute distress. Appearance: Normal appearance. She is not ill-appearing. HENT: Mouth/Throat: Mouth: Mucous membranes are moist. Eyes: General: No scleral icterus. Cardiovascular: Rate and Rhythm: Normal rate. Pulmonary: Effort: Pulmonary effort is normal. Breath sounds: Normal breath sounds. No wheezing. Abdominal: General: Abdomen is flat. Palpations: Abdomen is soft. Musculoskeletal: General: No swelling. Cervical back: Normal range of motion and neck supple. Right lower leg: No edema. Left lower leg: No edema. Skin: General: Skin is warm and dry. Findings: No bruising or rash. Neurological: Mental Status: She is alert and oriented to person, place, and time. Mental status is at baseline. Gait: Gait abnormal (uses cane). 07/27/23 00:00 WBC 6.69 (E) RBC 4.73 (E) Hemoglobin 15.2 (E) Hematocrit 43.7 (E) Platelets 85 (L) (E) Neutr Abs (ANC) 2.24 (E) Ferritin 24 (E) (L): Data is abnormally low (E): External lab result Assessment and Plan 73-year-old female with documented iron deficiency anemia. She is intolerant of oral iron. She had Monoferric 1000mg IV 6mos ago which seems to be a good time frame for her. Hemoglobin today 15.2 with a ferritin of 24. No evidence of GI bleeding. She had endoscopy at [facility] 07/14 with no evidence of varices. She has a long history of cirrhosis and is followed by [facility] with labs and US every 6mos. Most recent visit 03/17. She does have thrombocytopenia which is likely due to her liver disease. This has been relatively stable for many years. No bruising or bleeding. Will continue to monitor. She will continue with regular follow up with PCP as she has multiple chronic conditions. She is inthe process of transitioning PCPs and has a new patient visit scheduled in the next several weeks. Plan: - 1000mg Monoferric infusion today - Follow up in 6mo with repeat CBC and ferritin. Anticipate she will need an iron infusion at that point. - Call with any concerns or questions prior to that - Follow up with PCP for multiple chronic conditions - Follow up with GI as planned for 09/14 and televisit documented in this encounter Plan of Treatment Upcoming Encounters Date Type Department Care Team (Late st Contact Info) Description 03/01/2024 1:30 PM EST Office Visit Hematology/Oncology at [address] [phone] Imer Baker MD [facility] DR HEMATOLOGY [place] [address] Heidi Cruz APRN [address] [place] [address] [place] [address] 03/01/2024 2:00 PM EST Infusion Hematology Oncology at [address] [phone] 03/23/2024 11:30 AM EST TH Visit (TeleHealth) [place] [address] Tory Willard APRN [facility] [place] [address] documented as of this encounter Procedures Procedure Name Priority Date/Time Associated Diagnosis Comments CBC (WITH DIFF) Routine 07/27/2023 FERRITIN Routine 07/27/2023 documented in this encounter Results * (ABNORMAL) CBC (with Diff) (07/27/2023) White Blood Cell 6.69 Red Blood Cell 4.73 Hemoglobin 15.2 Hematocrit 43.7 Platelet 85(L) Neutrophil Absolute (ANC) - Automated 2.24 Blood 07/27/2023 Historical Provider HEMATOLOGY ORDERA BLES * Ferritin (07/27/2023) Ferritin 24 Blood 07/27/2023 Historical Provider CHEMISTRY ORDERAB LES documented in this encounter Visit Diagnoses Diagnosis Iron deficiency anemia, unspecified iron deficiency anemia type documented in this encounter Care Teams Senior Environmental Consultant Relationship Specialty Start Date End Date Kaci Vasquez MD [address] [place] [address] PCP - General Family Medicine 07/29/23 documented as of this encounter
--- OUTSIDE RECORDS SUMMARY | 2024-02-21 13:24 | XMS_ITS | Encounter Summary ---
Author Organization [facility] Address [facility] [place] [address] Care Team Providers Care Nursery Laborer Name Role Phone Maricarmen Galvna APRN Primary Care Provider [phone] Reason for Visit * Reason Comments IV Medication Monoferric * Treatment/Therapy Plan Authorization (Routine) - Authorized Specialty Diagnoses / Procedures Referred By Contac t Referred To Contact Hematology and Oncology Diagnoses Iron deficiency anemia, unspecified iron deficiency anemia type Procedures Ferric Derisomaltose (Monoferric) Infusion ([facility], [place], [place], [facility], [facility], [facility]) Iron Deficiency Anemia - As of 02/04/2023 11:58 AM Imer Baker MD [facility] DR [place] [address] St Hem Onc Infusion [address] [place] [phone] Referral ID Status Reason Start Date Expiration Date V isits Requested Visits Authorized [id number] Authorized 02/04/2023 02/25/2024 99 101 Encounter Details Date Type Department Care Team (Late st Contact Info) Description 02/04/2023 2:00 PM EST Infusion Hematology Oncology at [address] [phone] Iron deficiency anemia, unspecified iron deficiency anemia type Social History Tobacco Use Types Packs/Day Years Used Date Smoking Tobacco: Never Smokeless Tobacco: Never Alcohol Use Standard Drinks/Week Comments No 0 (1 standard drink = 0.6 oz pur e alcohol) [facility] Utilities Answer Date Recorded In the past [...] place to sleep or slept in a long term (including now)? No 02/04/2023 Sex and Gender Information Value Date Recorded Sex Assigned at Not on file Gender Identity Not on file Sexual Orientation Not on file documented as of this encounter Progress Notes * Marion Mclaughlin RN - 02/04/2023 2:00 PM EST INFUSION THERAPY ADMINISTRATION NOTES DIAGNOSIS: NISHA REASON FOR VISIT: Monoferric SUBJECTIVE Shereen Vega offers no complaints. OBJECTIVE LAB DATA: Ferritin 9 on 12/23/22 at [facility] IV ACCESS: Right AC per pt request REACTIONS (DESCRIPTION, TIME, INTERVENTION AND EFFECTIVENESS) none ASSESSMENT Sharri was awake, alert and tolerated treatment well. She waited the 30 min observation period with no issues. PLAN Return to clinic per routine. documented in this encounter Plan of Treatment Upcoming Encounters Date Type Department Care Team (Late st Contact Info) Description 03/01/2024 1:30 PM EST Office Visit Hematology/Oncology at [address] [phone] Imer Baker MD [facility] DR [place] [address] Heidi Cruz, [address] [place] [address] 03/01/2024 2:00 PM EST Infusion Hematology Oncology at [address] [phone] 03/23/2024 11:30 AM EST TH Visit (TeleHealth) [place] [address] Tory Willard [facility] [place] [address] documented as of this encounter Visit Diagnoses Diagnosis Iron deficiency anemia, unspecified iron deficiency anemia type documented in this encounter Administered Medications Inactive Administered Medications - up to 3 most recent administrations Medication Order MAR Action Action Date Dose Rate Site ferric derisomaltose (Monoferric) 1,000 mg in sodium chloride 0.9% 110 mL infusion 1,000 mg, Intravenous, ONCE, 1 dose, On Janessa 02/04/23 at 1500, Administer over 20 Minutes, Administer over at least 20 minutes. Monitor for 30 minutes after infusion for hypersensitivity reactions. Compatible only in sodium chloride 0.9%, This agent is restricted to outpatient use. Is this drug being given as an outpatient? Yes New Bag 02/04/2023 2:35 PM EST 1,000 mg 330 mL/hr documented in this encounter Care Teams Nursery Laborer Relationship Specialty Start Date End Date Maricarmen Galvan APRN PCP - General Family Medicine 05/10/18 07/28/23 documented as of this encounter
--- OUTSIDE RECORDS SUMMARY | 2024-02-21 13:24 | XMS_ITS | Encounter Summary ---
Author Organization [facility] [place] [address] Care Team Providers Care Lean Six Sigma Senior Specialist Name Role Phone Maricarmen Galvan JORGE Primary Care Provider [phone] Encounter Details Date Type Department Care Team (Late Contact Info) Description 06/24/2022 Orders Only [place] [address] Tory Willard [facility] [place] [address] Social History Tobacco Use Types Packs/Day Years [...] 1:30 PM EST Office Visit Hematology/Oncology at [address] [phone] Imer Baker MD [facility] DR [place] [address] Heidi Cruz, [address] [place] [address] 03/01/2024 2:00 PM EST Infusion Hematology Oncology at [address] [phone] 03/23/2024 11:30 AM EST TH Visit (TeleHealth) [place] [address] Tory Willard APRN [facility] [address] documented as of this encounter Visit Diagnoses Not on filedocumented in this encounter Care Teams Le[employer] Senior Specialist Relationship Specialty Start Date End Date Maricarmen Galvan APRN PCP - General Family Medicine 05/10/18 07/28/23 documented as of this encounter
--- OUTSIDE RECORDS SUMMARY | 2024-02-21 13:24 | XMS_ITS | Encounter Summary ---
Author Organization [facility] [place] [address] Care Team Providers Care Daytime Caregiver Name Role Phone Maricarmen Galvan JORGE Primary Care Provider [phone] Encounter Details Date Type Department Care Team (Latest Contact Info) Description 09/24/2022 Travel Social History Tobacco Use Types Packs/Day Years [...] 1:30 PM EST Office Visit Hematology/Oncology at [address] [phone] Imer Baker MD [facility] DR [place] [address] Heidi Cruz APRN [address] [place] [address] [place] [address] 03/01/2024 2:00 PM EST Infusion Hematology Oncology at [address] [phone] 03/23/2024 11:30 AM EST TH Visit (TeleHealth) [place] [phone] Tory Willard APRN [facility] [place] [address] documented as of this encounter Visit Diagnoses Not on filedocumented in this encounter Care Teams Daytime Caregiver Relationship Specialty Start Date End Date Maricarmen Galvan APRN PCP - General Family Medicine 05/10/18 07/28/23 documented as of this encounter
--- OUTSIDE RECORDS SUMMARY | 2024-02-21 13:24 | XMS_ITS | Encounter Summary ---
Author Organization [facility] Address [facility] [place] [address] Care Team Providers Care Technical Product Manager Name Role Phone ChagoMaricarmen luo JORGE Primary Care Provider [phone] Encounter Details Date Type Department Care Team (Late st Contact Info) Description 07/01/2023 1:00 PM EDT Office Visit Hematology/Oncology at [address] [phone] Imer Baker MD [facility] DR HEMATOLOGY [place] [address] Heidi Cruz APRN [address] [place] [address] DR MEDICAL ONCOLOGY [place], [place] [id number] Iron deficiency anemia, unspecified iron deficiency anemia type Social History Tobacco Use Types Packs/Day Years Used Date Smoking Tobacco: Never Smokeless Tobacco: Never Alcohol Use Standard Drinks/Week Comments No 0 (1 standard drink = 0.6 oz pur e alcohol) [facility] Utilities Answer Date Recorded In the past 12 months has [employer], gas, oil, or water [employer] threatened to shut off services in your [...] place to sleep or slept in a usp (including now)? No 02/04/2023 Sex and Gender Information Value Date Recorded Sex Assigned at Not on file Gender Identity Not on file Sexual Orientation Not on file documented as of this encounter Last Filed Vital Signs Vital Sign Reading Time Taken Comments Blood Pressure 122/69 07/01/2023 1:04 PM EDT Pulse 91 07/01/2023 1:04 PM EDT Temperature 36.6 ??C (97.8 ??F) 07/01/2023 1:04 PM ED T Respiratory Rate 18 07/01/2023 1:04 PM EDT Oxygen Saturation 98% 07/01/2023 1:04 PM EDT Inhaled Oxygen Concentration - - Weight 49.4 kg (108 lb 12.8 oz) 07/01/2023 1:04 PM EDT Height 153.7 cm (5' 0.51) 07/01/2023 1:04 PM ED T Body Mass Index 20.89 07/01/2023 1:04 PM EDT documented in this encounter Progress Notes * Heidi Cruz APRN - 07/01/2023 1:00 PM EDT Subjective Patient ID: Shereen Vega is a 73 y.o. female. HPI Sharri is here with her to follow up on her iron deficiency after being treated with IV monoferric 1000mg 5 months ago. She reports she felt quite a bit better after the infusion. She has more energy and is no longer eating ice. No bleeding. No bruising. No recent illnesses. Her energy has been ok. They recently had to move which was stressful but they are settling now. She is intolerant of oral iron as it causes significant constipation. Patient Active Problem List Diagnosis Code Balance [...] Anemia, iron deficiency D50.9 Current Outpatient Medications: SITagliptin phosphate (Januvia) 100 mg tablet, Take [...] Inhale into the lungs., Disp: , Rfl: fluticasone propion-salmeterol (ADVAIR) 100-50 [...] mg by mouth daily., Disp: , Rfl: cefPODOXime (Vantin) 200 mg tablet, Take 200 mg by mouth 2 times daily., Disp: , Rfl: nitroGLYcerin (Nitrostat) 0.4 mg sublingual tablet, Place 0.4 mg under the tongue every 5 minutes as needed for Chest pain., Disp: , Rfl: freestyle lite strips, USE TO TEST BLOOD GLUCOSE ONCE DAILY, Disp: , Rfl: Current Facility-Administered Medications: diclofenac [...] Skin: Negative for rash. Neurological: Positive for tremors. Negative for speech difficulty. Parkinson's Hematological: Negative for adenopathy. Does not bruise/bleed easily. All other systems reviewed and are negative. Objective BP 122/69 (Patient Position: Sitting) Pulse 91 Temp 36.6 ??C (97.8 ??F) (Temporal) Resp 18 Ht 153.7 cm (5' 0.51) Wt 49.4 kg (108 lb 12.8 oz) SpO2 98% BMI 20.89 kg/m?? Physical Exam Constitutional: Appearance: Normal appearance. She is not ill-appearing. HENT: Mouth/Throat: Mouth: Mucous membranes are moist. Eyes: General: No scleral icterus. Pulmonary: Effort: Pulmonary effort is normal. Musculoskeletal: General: No swelling. Skin: General: Skin is warm and dry. Findings: No bruising or rash. Neurological: Mental Status: She is oriented to person, place, and time. Mental status is at baseline. 07/01/23 00:00 WBC 7.45 (E) RBC 4.73 (E) Hemoglobin 15.3 (E) Hematocrit 45.2 (E) Platelets 103 (E) Neutr Abs (ANC) 2.73 (E) Ferritin 34 (E) (E): External lab result Assessment and Plan 72-year-old female with documented iron deficiency anemia. She is intolerant of oral iron. She had Monoferric 1000mg IV 12 weeks ago with a ferritin of 9. Hemoglobin today is 15.3 and Ferritin is now34. No evidence of GI bleeding. She had endoscopy at [facility] 07/14 with no evidence of varices. She has a long history of cirrhosis and is followed by [facility] with labs and US every 6mos. Most recent visit 03/17. She does have thrombocytopenia which is likely due to her liver disease. This has been stable for many years. Platelets today were 103. No bruising or bleeding. Will continue to monitor. She will continue with regular follow up with PCP as she has multiple chronic conditions. Plan: - Follow up in 1mo with repeat CBC and ferritin. Anticipate she will need an iron infusion at that point and then can resume 3mo visits. - IV monoferric as needed with ferritin <30 - Follow up with PCP for multiple chronic conditions - Follow up with GI as planned for US 09/14 and televisit documented in this encounter Plan of Treatment Upcoming Encounters Date Type Department Care Team (Nakul hickman Contact Info) Description 03/01/2024 1:30 PM EST Office Visit Hematology/Oncology at [address] [phone] Imer Baker MD [facility] DR HEMATOLOGY [place] [address] Heidi Cruz [address] MEDICAL ONCOLOGY [place], [place] [address] 03/01/2024 2:00 PM EST Infusion Hematology Oncology at [address] [phone] 03/23/2024 11:30 AM EST TH Visit (TeleHealth) [place] [address] Tory Willard [facility] [place] [address] documented as of this encounter Procedures Procedure Name Priority Date/Time Associated Diagnosis Comments CBC (WITH DIFF) Routine 07/01/2023 FERRITIN Routine 07/01/2023 documented in this encounter Results * Ferritin (07/01/2023) Ferritin 34 Blood 07/01/2023 Historical Provider CHEMISTRY ORDERAB LES * CBC (with Diff) (07/01/2023) White Blood Cell 7.45 Red Blood Cell 4.73 Hemoglobin 15.3 Hematocrit 45.2 Platelet 103 Neutrophil Absolute (ANC) - Automated 2.73 Blood 07/01/2023 Historical Provider HEMATOLOGY ORDERA BLES documented in this encounter Visit Diagnoses Diagnosis Iron deficiency anemia, unspecified iron deficiency anemia type documented in this encounter Care Teams Technical Product Manager Relationship Specialty Start Date End Date Maricarmen Galvan APRN PCP - General Family Medicine 05/10/18 07/28/23 documented as of this encounter
--- OUTSIDE RECORDS SUMMARY | 2024-02-21 13:24 | XMS_ITS | Encounter Summary ---
Author Organization [facility] Address [facility] [place] [address] Care Team Providers Care Packing Tractor Machine Operator Name Role Phone Maricarmen Galvan APRN Primary Care Provider [phone] Encounter Details Date Type Department Care Team (Late st Contact Info) Description 04/01/2023 1:00 PM EST Office Visit Hematology/Oncology at [address] [phone] Imer Baker MD [facility] [address] [place] [address] Iron deficiency anemia, unspecified iron deficiency anemia type (Primary Dx) Social History Tobacco Use Types Packs/Day Years Used Date Smoking Tobacco: Never Smokeless Tobacco: Never Alcohol Use Standard Drinks/Week Comments No 0 (1 standard drink = 0.6 oz pur e alcohol) [facility] Utilities Answer Date Recorded In the past 12 months has e [employer], gas, oil, or water [employer] threatened to shut off services in your [...] place to sleep or slept in a skilled nursing (including now)? No 02/04/2023 Sex and Gender Information Value Date Recorded Sex Assigned at Not on file Gender Identity Not on file Sexual Orientation Not on file documented as of this encounter Last Filed Vital Signs Vital Sign Reading Time Taken Comments Blood Pressure 123/65 04/01/2023 12:59 PM EST Pulse 89 04/01/2023 12:59 PM EST Temperature 36.3 ??C (97.3 ??F) 04/01/2023 12:[address] Respiratory Rate 16 04/01/2023 12:59 PM EST Oxygen Saturation 100% 04/01/2023 12:59 PM EST Inhaled Oxygen Concentration - - Weight 48.2 kg (106 lb 4.8 oz) 04/01/2023 12:59 PM EST Height 153.7 cm (5' 0.51) 04/01/2023 12:[address] Body Mass Index 20.41 04/01/2023 12:59 PM EST documented in this encounter Progress Notes * Heidi Cruz APRN - 04/01/2023 1:00 PM EST Subjective Patient ID: Shereen Vega is a 72 y.o. female. MATTHEW Harrell is here with her to follow up on her iron deficiency after being treated with IV monoferric 1000mg 8 weeks ago. She reports she felt quite a bit better after the infusion. She has more energy and is no longer eating ice. She is intolerant of oral iron as it causes significant constipation. She denies any bleeding. Patient Active Problem List Diagnosis Code Balance [...] mouth 2 times daily., Disp: , Rfl: canagliflozin (Invokana) 100 mg [...] times daily (with meals)., Disp: , Rfl: traZODone (Desyrel) 50 mg tablet, Take 25 mg by mouth as needed for Sleep. new, Disp: , Rfl: Current Facility-Administered Medications: diclofenac (VOLTAREN) 1% topical gel 2 g, 2 g, Topical (Top), 4 Times Daily, Manny Lugo MD Allergies Allergen Reactions Erythromycin Base Abdominal pain Penicillins Hives Plaquenil [Hydroxychloroquine] Reaction unknown Quinine Thrombocytopenia Sulfasalazine Patient not sure about reaction. Review of Systems Constitutional: Negative for fatigue, [...] systems reviewed and are negative. Objective BP 123/65 (Patient Position: Sitting) Pulse 89 Temp 36.3 ??C (97.3 ??F) (Temporal) Resp 16 Ht 153.7 cm (5' 0.51) Wt 48.2 kg (106 lb 4.8 oz) SpO2 100% BMI 20.41 kg/m?? Physical Exam Constitutional: Appearance: Normal appearance. She is not ill-appearing. HENT: Mouth/Throat: Mouth: Mucous membranes are moist. Eyes: General: No scleral icterus. Pulmonary: Effort: Pulmonary effort is normal. Musculoskeletal: General: No swelling. Skin: Findings: No rash. Neurological: Mental Status: She is oriented to person, place, and time. 04/01/23 00:00 WBC 5.86 (E) RBC 4.84 (E) Hemoglobin 14.0 (E) Hematocrit 42.5 (E) Platelets 78 (L) (E) Ferritin 58 (E) (L): Data is abnormally low (E): External lab result Assessment and Plan 72-year-old female with documented iron deficiency anemia. She is intolerant of oral iron. She had Monoferric 1000mg IV 8 weeks ago with a ferritin of 9. Hemoglobin today is 14.0 and Ferritin is now 58. No evidence of GI bleeding. She had endoscopy at [facility] 07/14 with no evidence of varices. She reportscolonoscopy within the past year although I do not see this report. She has a long history of cirrhosis and is followed by [facility] with labs and US every 6mos. Most recent visit 03/17. She does have thrombocytopenia which is felt to be due to her liver disease. This has been stable for many years. Pl atelets today were 78. No bruising or bleeding. Will continue to monitor. She has regular follow up with her PCP as she has multiple chronic conditions. She will ensure she is up to date on colonoscopy. She will follow up in 3mos for repeat CBC and ferritin to ensure stability. Will give IV monoferricsupport as needed with ferritin less than 30. She will call before then with any concerns. documented in this encounter Plan of Treatment Upcoming Encounters Date Type Department Care Team (Late st Contact Info) Description 03/01/2024 1:30 PM EST Office Visit Hematology/Oncology at [address] [phone] Imer Baker MD [facility] [address] [place] [address] Heidi Cruz APRN [address] [place] [address] 03/01/2024 2:00 PM EST Infusion Hematology Oncology at [address] [phone] 03/23/2024 11:30 AM EST TH Visit (TeleHealth) [place] [address] [facility] [address] Scheduled Orders Name Type Priority Associated Diagnoses Orde r Schedule CBC (with Diff) Lab Routine Iron deficiency anemia, unspecified iron deficiency anemia type Expected: 06/30/2023, Expires: 12/30/2023 Ferritin Lab Routine Iron deficiency anemia, unspecified iron deficiency anemia type Expected: 06/30/2023, Expires: 12/30/2023 documented as of this encounter Procedures Procedure Name Priority Date/Time Associated Diagnosis Comments CBC (WITH DIFF) Routine 04/01/2023 FERRITIN Routine 04/01/2023 COMPREHENSIVE METABOLIC PANEL Routine 04/01/2023 FERRITIN Routine 12/23/2022 documented in this encounter Results * (ABNORMAL) Comprehensive metabolic panel (non-fasting) (04/01/2023) Glucose 196(H) Blood Urea Nitrogen 15 Creatinine 0.9 Sodium 141 Potassium 3.7 Calcium 10.4(H) Protein, Total 8.2 Albumin 3.9 Bilirubin, Total 0.5 Alkaline Phosphatase 45(L) Aspartate Aminotransferase 20 Alanine Aminotransferase 14 Blood 04/01/2023 Historical Provider CHEMISTRY ORDERAB LES * Ferritin (04/01/2023) Ferritin 58 Blood 04/01/2023 Historical Provider CHEMISTRY ORDERAB LES * (ABNORMAL) CBC (with Diff) (04/01/2023) White Blood Cell 5.86 Red Blood Cell 4.84 Hemoglobin 14.0 Hematocrit 42.5 Platelet 78(L) Neutrophil Absolute (ANC) - Automated 2.34 Blood 04/01/2023 Historical Provider HEMATOLOGY ORDERA BLES * Ferritin (12/23/2022) Ferritin 9 Blood 12/23/2022 Historical Provider CHEMISTRY ORDERAB LES documented in this encounter Visit Diagnoses Diagnosis Iron deficiency anemia, unspecified iron deficiency anemia type- Primary documented in this encounter Care Teams Packing Tractor Machine Operator Relationship Specialty Start Date End Date Maricarmen Galvan, JORGE PCP - General Family Medicine 05/10/18 07/28/23 documented as of this encounter
--- OUTSIDE RECORDS SUMMARY | 2024-02-21 13:24 | XMS_ITS | Encounter Summary ---
Author Organization [facility] Address [facility] [place] [address] Care Team Providers Care Lighthouse Keeper Name Role Phone Kaci Vasquez MD Primary Care Provider [phone] Encounter Details Date Type Department Care Team (Latest Contact Info) Description 09/15/2023 1:00 PM EDT TH Visit (TeleHealth) [place] [phone] Tory Ayers APRN [facility] [place] [address] Hepatic cirrhosis, unspecified hepatic cirrhosis type, unspecified whether ascites present Social History Tobacco Use Types Packs/Day Years Used Date Smoking Tobacco: Never Smokeless Tobacco: Never Alcohol Use Standard Drinks/Week Comments No 0 (1 standard drink = 0.6 oz pur e alcohol) [facility] Utilities Answer Date Recorded In the [...] as of this encounter Progress Notes * Tory Ayers APRN - 09/15/2023 1:00 PM EDT Images from the original note were not included. Hepatology Follow Up Note Patient: Shereen Vega Gender: female : 1950 Provider: TORY AYERS APRN Referring Physician: Kaci Vasquez MD HISTORY OF PRESENT ILLNESS Shereen Vega is a 73 y.o. year old female with history of diabetes, psoriatic arthritis, andcirrhosis. We followed up today via telephone (she changed her visit to telephone due to weather). She had an ultrasound and blood work done locally. She has been feeling okay. Has been going to PT twice a week because her leg [place] on her, feels like that is helpful. She notes that she forgets things. Was diagnosed with Parkinsons 1 year ago, doesn't feel like memory is an issue now. She has been seeing hematology and gets iron infusions occasionally. Last saw them in July 2023. PAST MEDICAL/SURGICAL HISTORY Psoriatic arthritis - Took Methotrexate for a short period (under a year). Current taking Humira. Diabetes - past 20 years.. Taking Metformin. Hyperlipidemia Hypothyroid Parkinsons - diagnosed 10/2022 Cirrhosis - first diagnosed 01/2019 with appearance of cirrhotic appearing liver on imaging and intra-abdominal varices. - EGD 07/25/19: no esophogeal or gastric varices - Negative for iron overload, iron overload, AMA neg, negative viral hepatitis - EGD 07/07/2022: (done at [facility]), no reports of varices. MEDICATIONS No outpatient medications have been marked as taking for the 09/15/23 encounter (Appointment) with Tory Ayers APRN. Current Facility-Administered Medications for the 09/15/23 encounter (Appointment) with Tory Ayers APRN Medication Dose Route Frequency Provider Last Rate Last Admin diclofenac (VOLTAREN) 1% topical gel 2 g 2 g Topical (Top) 4 Times Daily Manny Lugo MD ALLERGIES Allergies Allergen Reactions Erythromycin Base Abdominal pain Penicillins Hives Plaquenil [Hydroxychloroquine] Reaction unknown Quinine Thrombocytopenia Sulfasalazine Patient not sure about reaction. SOCIAL HISTORY , has 3 kids, with grandchildren. No significant alcohol use. FAMILY HISTORY No known hx of liver disease. PHYSICAL EXAM No vitals or exam over telephone. Ultrasound 09/13/2023: 09/13/2023: ASSESSMENT/PLAN Shreeen Vega is a 73 y.o. female with history of diabetes, hyperlipidemia, psoriatic arthritis and well-compensated cirrhosis, likely due to ALFARO or medication (prior Methotrexate use, though brief). She has been stable from a liver standpoint since her diagnosis with a low MELD. 1. Cirrhosis. Etiology possibly ALFARO. Her workup for other causes of liver disease was negative, including iron overload, autoimmune hepatitis, celiac disease, and viral hepatitis. She does have diabetes and hyperlipidemia, so could have ALFARO despite her low BMI (21). Her liver enzymes are normal. 2. Varices surveillance. EGD 07/2019 with no varices and she had a repeat EGD done in 06/2022 locally, and from the report I can see it does not appear she has any varices. 3. HCC surveillance. US last weeks appears to have no lesions, can repeat in 6 months. 4. Preventative health. She should be vaccinated to hepatitis A and B, if not done already through PCP office. We discussed that she should not take NSAIDs and that it is okay to take up to 2000 mg of Tylenol per day. Plan: - Follow up in 6 months with labs an US- this can be done locally with follow up via [facility]. Time spent reviewing records prior to this encounter: 5 minutes Time spent during encounter with patient including counselin minutes Time spent documenting encounter on date of service: 6 minutes Approximate total time devoted to this single encounter on date of service: 21 minutes Tory Ayers APRN Section of [place]astroenter[place] [address] Copy: Kaci Vasquez MD [address] [facility] [id number] documented in this encounter Plan of Treatment Upcoming Encounters Date Type Department Care Team (Late st Contact Info) Description 03/01/2024 1:30 PM EST Office Visit Hematology/Oncology at [address] [phone] Imer Baker MD [facility] DR HEMATOLOGY [place] [address] Heidi Cruz APRN [address] [place] [address] [place] [address] 03/01/2024 2:00 PM EST Infusion Hematology Oncology at [address] [phone] 03/23/2024 11:30 AM EST TH Visit (TeleHealth) [place] [address] Tory Ayers APRN [facility] [place] [address] Scheduled Orders Name Type Priority Associated Diagnoses Orde r Schedule US Abdomen Limited Imaging Routine Hepatic cirrhosis, unspecified hepatic cirrhosis type, unspecified whether ascites present Expected: 01/25/2024 (Approximate), Expires: 09/15/2024 Comprehensive metabolic panel (non-fasting) Lab Routine Hepatic cirrhosis, unspecified hepatic cirrhosis type, unspecified whether ascites present Expected: 03/17/2024 (Approximate), Expires: 09/14/2024 CBC (with Diff) Lab Routine Hepatic cirrhosis, unspecified hepatic cirrhosis type, unspecified whether ascites present Expected: 03/17/2024 (Approximate), Expires: 09/14/2024 Prothrombin Time Lab Routine Hepatic cirrhosis, unspecified hepatic cirrhosis type, unspecified whether ascites present Expected: 03/17/2024 (Approximate), Expires: 09/14/2024 AFP tumor marker Lab Routine Hepatic cirrhosis, unspecified hepatic cirrhosis type, unspecified whether ascites present Expected: 03/17/2024 (Approximate), Expires: 09/16/2024 documented as of this encounter Visit Diagnoses Diagnosis Hepatic cirrhosis, unspecified hepatic cirrhosis type, unspecified whether ascites present documented in this encounter Care Teams Lighthouse Keeper Relationship Specialty Start Date End Date Kaci Vasquez MD [address] [place] [address] PCP - General Family Medicine 07/29/23 documented as of this encounter
--- OUTSIDE RECORDS SUMMARY | 2024-02-21 13:24 | XMS_ITS | Encounter Summary ---
Author Organization [facility] [place] [address] Care Team Providers Care Wildlife Management Professor Name Role Phone Maricarmen Galvan JORGE Primary Care Provider Encounter Details Date Type Department Care Team (Late st Contact Info) Description 09/01/2022 Telephone [place] [phone] Carly Del Rio Social History Tobacco Use Types Packs/Day Years [...] encounter Miscellaneous Notes * Telephone Encounter - Carly Del Rio - 09/01/2022 1:33 PM EDT Called pt to try and kelvin a bumped follow up, left message, sending letter documented in this encounter Plan of Treatment Upcoming Encounters Date Type Department Care Team (Late st Contact Info) Description 03/01/2024 1:30 PM EST Office Visit Hematology/Oncology at [address] [phone] Imer Baker MD [facility] DR HEMATOLOGY [place] [address] Heidi Cruz APRN [address] [place] [address] [place] [address] 03/01/2024 2:00 PM EST Infusion Hematology Oncology at [address] [phone] 03/23/2024 11:30 AM EST TH Visit (TeleHealth) [place] [address] Tory Willard APRN [facility] [place] [address] documented as of this encounter Visit Diagnoses Not on filedocumented in this encounter Care Teams Wildlife Management Professor Relationship Specialty Start Date End Date Maricarmen Galvan APRN PCP - General Family Medicine 05/10/18 07/28/23 documented as of this encounter
--- OUTSIDE RECORDS SUMMARY | 2024-02-21 13:24 | XMS_ITS | Encounter Summary ---
Author Organization [facility] Address [facility] [place] [address] Care Team Providers Care Blood Tester Name Role Phone Maricarmen Galvan APRN Primary Care Provider [phone] Encounter Details Date Type Department Care Team (Latest Contact Info) Description 03/25/2023 Travel Social History Tobacco Use Types Packs/Day Years Used Date Smoking Tobacco: Never Smokeless Tobacco: Never Alcohol Use Standard Drinks/Week Comments No 0 (1 standard drink = 0.6 oz pur e alcohol) [facility] Utilities Answer Date Recorded In the past 12 months has th e [employer], gas, oil, or water [employer] threatened to shut off services in your [...] place to sleep or slept in a fpc (including now)? No 02/04/2023 Sex and Gender Information Value Date Recorded Sex Assigned at Not on file Gender Identity Not on file Sexual Orientation Not on file documented as of this encounter Plan of Treatment Upcoming Encounters Date Type Department Care Team (Late st Contact Info) Description 03/01/2024 1:30 PM EST Office Visit Hematology/Oncology at [address] [phone] Imer Baker MD [facility] DR HEMATOLOGY [place] [address] Hiedi Cruz APRN [address] [place] [address] MEDICAL ONCOLOGY [place], [place] [address] 03/01/2024 2:00 PM EST Infusion Hematology Oncology at [address] [phone] 03/23/2024 11:30 AM EST TH Visit (TeleHealth) [place] [address] Tory Willard APRN [facility] [place] [address] documented as of this encounter Visit Diagnoses Not on filedocumented in this encounter Care Teams Blood Tester Relationship Specialty Start Date End Date Maricarmen Galvan APRN PCP - General Family Medicine 05/10/18 07/28/23 documented as of this encounter
--- OUTSIDE RECORDS SUMMARY | 2024-02-21 13:24 | XMS_ITS | Encounter Summary ---
Author Organization [facility] Address [facility] [place] [address] Care Team Providers Care Billing Checker Name Role Phone ChagoMaricarmen luo JORGE Primary Care Provider [phone] Encounter Details Date Type Department Care Team (Latest Contact Info) Description 03/17/2023 1:00 PM EST TH Visit (TeleHealth) [place] [phone] Tory Ayers APRN [facility] [place] [address] Hepatic cirrhosis, unspecified hepatic cirrhosis type, unspecified whether ascites present Social History Tobacco Use Types Packs/Day Years Used Date Smoking Tobacco: Never Smokeless Tobacco: Never Alcohol Use Standard Drinks/Week Comments No 0 (1 standard drink = 0.6 oz pur e alcohol) [facility] Utilities Answer Date Recorded In the [...] place to sleep or slept in a retirement (including now)? No 02/04/2023 Sex and Gender Information Value Date Recorded Sex Assigned at Not on file Gender Identity Not on file Sexual Orientation Not on file documented as of this encounter Progress Notes * Tory Ayers APRN - 03/17/2023 1:00 PM EST Hepatology Follow Up Note Patient: Shereen [...] had an ultrasound and blood work done locally at the end of January. She was diagnosed with Parkinsons 6 months ago, that has been impacting her ability to get around. She has otherwise been feeling fine. Had an EGD at [facility] on 07/07/2022. PAST MEDICAL/SURGICAL HISTORY Psoriatic arthritis - Took [...] viral hepatitis - EGD 07/07/2022: (done at [facility]), no reports of varices. MEDICATIONS No outpatient medications have been marked as taking for the 03/17/23 encounter (TH Visit (TeleHealth)) with Tory Ayers APRN. Current Facility-Administered Medications for the 03/17/23 encounter (TH Visit (TeleHealth)) with Tory Ayers APRN Medication Dose Route [...] EXAM No vitals or exam over telephone. Lab Results Component Value Date WBC 5.58 02/10/2023 HGB 11.3 02/10/2023 HCT 38.4 02/10/2023 MCV 77.7 (L) 06/24/2022 PLATELET 104 (L) 02/10/2023 No results for input(s): INR in the last 168 hours. Chemistry Component Value Date/Time NA 140 02/10/2023 0000 K 3.7 02/10/2023 0000 CL 103 06/24/2022 1114 CO2 25 06/24/2022 1114 BUN 10 02/10/2023 0000 CREATININE 0.8 02/10/2023 0000 Component Value Date/Time CALCIUM 9.9 02/10/2023 0000 ALKPHOS 63 02/10/2023 0000 AST 27 02/10/2023 0000 ALT 13 (L) 02/10/2023 0000 BILITOT 0.3 02/10/2023 0000 MELD 3.0: 7 at 06/24/2022 11:14 AM MELD-Na: 6 at 06/24/2022 11:14 AM Calculated from: Serum Creatinine: 0.66 mg/dL (Using min of 1 mg/dL) at 06/24/2022 11:14 AM Serum Sodium: 140 mmol/L (Using max of 137 mmol/L) at 06/24/2022 11:14 AM Total Bilirubin: 0.4 mg/dL (Using min of 1 mg/dL) at 06/24/2022 11:14 AM Serum Albumin: 4.6 g/dL (Using max of 3.5 g/dL) at 06/24/2022 11:14 AM INR(ratio): 1.0 at 06/24/2022 11:14 AM Age at listing (hypothetical): 72 years Sex: Female at 06/24/2022 11:14 AM Ultrasound 02/12/2023: images reviewed in PACs system, preliminary report does not show any signs of liver lesions. ASSESSMENT/PLAN Shereen Vega is a 72 y.o. [...] any varices. 3. HCC surveillance. US last month appears to have no lesions, can repeat [...] [facility] Time spent reviewing records prior to this encounter: 5 minutes Time spent during encounter with patient including counselin minutes Time spent documenting encounter on date of service: 7 minutes Approximate total time devoted to this single encounter on date of service: 22 minutes Tory Ayers APRN Section of Gastroenterology [place] [address] Copy: Maricarmen Galvan APRN [address] / [place] [address] documented in this encounter Plan of Treatment Upcoming Encounters Date Type Department Care Team (Late st Contact Info) Description 03/01/2024 1:30 PM EST Office Visit Hematology/Oncology at [address] [phone] Imer Baker MD [facility] DR HEMATOLOGY [place] [address] Heidi Cruz, POSTING SPECIALIST [address] [place] [address] [place] [address] 03/01/2024 2:00 PM EST Infusion Hematology Oncology at [address] [phone] 03/23/2024 11:30 AM EST TH Visit (TeleHealth) [place] [address] Tory Ayers POSTING SPECIALIST [facility] [place] [address] Scheduled Orders Name Type Priority Associated Diagnoses Orde r Schedule US Abdomen Limited Imaging Routine Hepatic cirrhosis, unspecified hepatic cirrhosis type, unspecified whether ascites present Expected: 09/15/2023 (Approximate), Expires: 03/17/2024 Comprehensive metabolic panel (non-fasting) Lab Routine Hepatic cirrhosis, unspecified hepatic cirrhosis type, unspecified whether ascites present Expected: 09/15/2023 (Approximate), Expires: 03/17/2024 CBC (with Diff) Lab Routine Hepatic cirrhosis, unspecified hepatic cirrhosis type, unspecified whether ascites present Expected: 09/15/2023 (Approximate), Expires: 03/17/2024 Prothrombin Time Lab Routine Hepatic cirrhosis, unspecified hepatic cirrhosis type, unspecified whether ascites present Expected: 09/15/2023 (Approximate), Expires: 03/17/2024 documented as of this encounter Visit Diagnoses Diagnosis Hepatic cirrhosis, unspecified hepatic cirrhosis type, unspecified whether ascites present documented in this encounter Care Teams Billing Checker Relationship Specialty Start Date End Date Maricarmen Galvan, JORGE PCP - General Family Medicine 05/10/18 07/28/23 documented as of this encounter
--- OUTSIDE RECORDS SUMMARY | 2024-02-21 13:24 | XMS_ITS | Encounter Summary ---
Author Organization [facility] Address [facility] [place] [address] Care Team Providers Care Cable Strander Name Role Phone Maricarmen Galvan APRN Primary Care Provider [phone] Encounter Details Date Type Department Care Team (Latest Contact Info) Description 04/01/2023 Travel Social History Tobacco Use Types Packs/Day Years Used Date Smoking Tobacco: Never Smokeless Tobacco: Never Alcohol Use Standard Drinks/Week Comments No 0 (1 standard drink = 0.6 oz pur e alcohol) [facility] Utilities Answer Date Recorded In the past 12 months has th e [employer], gas, oil, or water [employer] threatened to shut off services in your [...] place to sleep or slept in a residential (including now)? No 02/04/2023 Sex and Gender Information Value Date Recorded Sex Assigned at Not on file Gender Identity Not on file Sexual Orientation Not on file documented as of this encounter Plan of Treatment Upcoming Encounters Date Type Department Care Team (Late st Contact Info) Description 03/01/2024 1:30 PM EST Office Visit Hematology/Oncology at [address] [phone] Imer Baker MD [facility] [place] [address] Heidi Cruz APRN [address] [place] [address] MEDICAL ONCOLOGY [place], [place] [address] 03/01/2024 2:00 PM EST Infusion Hematology Oncology at [address] [phone] 03/23/2024 11:30 AM EST TH Visit (TeleHealth) [place] [address] Tory Willard APRN [facility] [place] [place] [address] documented as of this encounter Visit Diagnoses Not on filedocumented in this encounter Care Teams Cable Strander Relationship Specialty Start Date End Date Maricarmen Galvan APRN PCP - General Family Medicine 05/10/18 07/28/23 documented as of this encounter
--- OUTSIDE RECORDS SUMMARY | 2024-02-21 13:24 | XMS_ITS | Encounter Summary ---
Author Organization [facility] Address [facility] [place] [address] Care Team Providers Care City Dispatcher Name Role Phone Maricarmen Galvan JORGE Primary Care Provider [phone] Encounter Details Date Type Department Care Team (Latest Contact Info) Description 06/24/2022 8:30 AM EDT - 06/24/2022 11:59 PM EDT Hospital En[place] [phone] Tory Ayers DIPLOMATIC OFFICER [facility] [place] [address] Hepatic cirrhosis, unspecified hepatic cirrhosis type, unspecified whether ascites present Discharge Disposition: Home Social History Tobacco Use Types Packs/Day Years [...] Sig Dispensed Refills Start Date End Date gabapentin (Neurontin) 300 mg Capsule Take 2 capsules by mouth 3 times daily. 90 capsule 12 11/16/2021 insulin detemir U-100 (Levemir FlexTouch U-100 Insuln) Insulin Pen 20 Units 2 times daily. fluticasone propionate (FLOVENT) 110 mcg/actuation HFA Aerosol Inhaler Inhale into the lungs. 06/22/2019 freestyle lite strips USE TO TEST BLOOD GLUCOSE ONCE DAILY 05/30/2019 fluticasone propion-salmeterol (ADVAIR) 100-50 mcg/dose Disk with Device Inhale 1 puff into the lungs every 12 hours. cholecalciferol, Vitamin D3, 25 mcg (1,000 unit) Capsule Take by mouth. calcium-vitamin D3 600 mg calcium- 400 unit Tablet Take by mouth. magnesium chloride (SLOW-MAG ORAL) Take 64 mg by mouth 2 times daily. levothyroxine (SYNTHROID) 75 mcg tablet Take 50 mcg by mouth daily. aspirin 81 mg EC tablet Take 81 mg by mouth daily. lovastatin (MEVACOR) 40 mg tablet Take 40 mg by mouth nightly. metFORMIN (GLUCOPHAGE) 500 mg tablet Take 1,000 mg by mouth daily. cephALEXin (Keflex) 250 mg Capsule Take 1 capsule by mouth 2 times daily. 40 capsule 11/16/2021 09/24/2022 ibuprofen (Advil) 200 mg Tablet Take 1 tablet by mouth every 6 hours as needed for Pain (every 4 to 6 hours as needed for pain). 30 tablet 1 11/16/2021 09/24/2022 omeprazole (PriLOSEC) 20 mg Capsule, Delayed Release(E.C.) Take by mouth. 06/22/2019 09/24/2022 folic acid (FOLVITE) 400 mcg Tablet Take 400 mcg by mouth daily. 09/24/2022 TRAMADOL HCL (TRAMADOL ORAL) Take 50 mg by mouth every morning. Takes at bedtime if needed. 02/04/2023 PARoxetine (PAXIL) 40 mg tablet Take 20 mg by mouth every morning. 02/04/2023 documented as of this encounter Plan of Treatment Upcoming Encounters Date Type Department Care Team (Late st Contact Info) Description 03/01/2024 1:30 PM EST Office Visit Hematology/Oncology at [address] [phone] Imer Baker MD [facility] DR HEMATOLOGY AND ONCOLOGY [place], [place] [id number] Heidi Cruz APRN [address] [place] [address] DR MEDICAL ONCOLOGY [place], [place] [id number] 03/01/2024 2:00 PM EST Infusion Hematology Oncology at [address] [phone] 03/23/2024 11:30 AM EST TH Visit (TeleHealth) [place] [address] Tory Ayers APRN [facility] [place] [address] documented as of this encounter Procedures Procedure Name Priority Date/Time Associated Diagnosis Comments US ABDOMEN LIMITED HEPATOLOGY PROTOCOL Routine 06/24/2022 9:25 AM EDT Hepatic cirrhosis, unspecified hepatic cirrhosis type, unspecified whether ascites present documented in this encounter Results * US Abdomen Limited Hepatology Protocol (06/24/2022 9:25 AM EDT) Anatomical Region Laterality Modality Abdomen Ultrasound 06/24/2022 9:22 AM EDT Impressions 06/24/2022 11:23 AM EDT Coarse parenchymal echotexture, capsular nodularity, and recannulized umbilical vein consistent with known cirrhosis. No sonographic evidence of mass. No ascites. Hepatopetal flow of the main portal vein with focal dilation up to 2.2 cm, which appears similar to prior. I have personally reviewed the image(s) and the resident's interpretation and agree with the findings, Minda Box MD at 06/24/2022 11:16 AM Thank you for letting us participate in the care of this patient. If you are a health care provider and have any questions regarding this report, please contact the number above. For patients who have questions, please contact the health medicare sales representative that requested your imaging first. ? Minda Box, Staff Physician Electronically Signed Final Report ?? 06/24/2022 11:23 am Narrative 06/24/2022 11:23 AM EDT Abdominal ? (Signed Final 06/24/2022 11:23 am) PATIENT INFO: ID #: ? [id number] ?: ??[birth year] (72 yrs)(F) Name: ? ELEAZAR Judy ? Visit Date: 06/24/2022 09:22 am ? BO PERFORMED BY: Attending: ?Isauro SHARPE, Minda Castellanos Performed By: ? Beena Millan RDMS Referred By: ?TORY AYERS Location: ? [place] [facility] Protocol - Abdominal ?[id number] Limited Survey Single Organ or Quadrant - [id number] INDICATIONS: cirrhosis, screen for hcc ------ LIVER: ------ Right Lobe Length: ?? 15.3 ?? cm Echogenicity/Echotexture: ?? Coarse parenchyma with capsular ? nodularity Portal Veins: ?Hepatopetal Comment: ?Prominent main portal vein. GALLBLADDER: Cholelithiasis: ?No stones visualized Wall Thickness: ?2.6 mm Focal Tenderness: ?Negative sonographic Vee's sign BILIARY TRACT: Intrahepatic Ducts: ?? Normal Extrahepatic Ducts: ?? Normal Common Duct: ?Visualized Common Duct Size: ? 2.2 ? mm FLUID COLLECTIONS: Ascites not present on 4 quadrant evaluation. Procedure Note Minda Box MD - 06/24/2022 Abdominal (Signed Final 06/24/2022 11:23 am) PATIENT INFO: ID #: [id number] : [birth year] (72 yrs)(F) Name: ELEAZAR Kim Visit Date: 06/24/2022 09:22 am BO PERFORMED BY: Attending: Minda Box MD Performed By: Beena Millan RDMS Referred By: TORY AYERS Location: [place] SERVICE(S) PROVIDED: [facility] - Hepatology Protocol - Abdominal [id number] Limited Survey Single Organ or Quadrant - [id number] INDICATIONS: cirrhosis, screen for hcc ------ LIVER: ------ Right Lobe Length: 15.3 cm Echogenicity/Echotexture: Coarse parenchyma with capsular nodularity Portal Veins: Hepatopetal Comment: Prominent main portal vein. GALLBLADDER: Cholelithiasis: No stones visualized Wall Thickness: 2.6 mm Focal Tenderness: Negative sonographic Vee's sign BILIARY TRACT: Intrahepatic Ducts: Normal Extrahepatic Ducts: Normal Common Duct: Visualized Common Duct Size: 2.2 mm FLUID COLLECTIONS: Ascites not present on 4 quadrant evaluation. IMPRESSION Coarse parenchymal echotexture, capsular nodularity, and recannulized umbilical vein consistent with known cirrhosis. No sonographic evidence of mass. No ascites. Hepatopetal flow of the main portal vein with focal dilation up to 2.2 cm, which appears similar to prior. I have personally reviewed the image(s) and the resident's interpretation and agree with the findings, Minda Box MD at 06/24/2022 11:16 AM Thank you for letting us participate in the care of this patient. If you are a health care provider and have any questions regarding this report, please contact the number above. For patients who have questions, please contact the health medicare sales representative that requested your imaging first. Minda Box, Staff Physician Electronically Signed Final Report 06/24/2022 11:23 am Tory Ayers APRN [facility] documented in this encounter Visit Diagnoses Diagnosis Hepatic cirrhosis, unspecified hepatic cirrhosis type, unspecified whether ascites present documented in this encounter Care Teams City Dispatcher Relationship Specialty Start Date End Date Maricarmen Galvan APRN PCP - General Family Medicine 05/10/18 07/28/23 documented as of this encounter
--- OUTSIDE RECORDS SUMMARY | 2024-02-21 13:24 | XMS_ITS | Clinical Summary ---
Author Organization [facility] Address [facility] [place] [address] Care Team Providers Care Bull Gang Worker Name Role Phone Kaci Vasquez MD Primary Care Provider [phone] Allergies Active Allergy Reactions Criticality Noted Date Comments Erythromycin Base Abdominal pain Penicillins Hives Hydroxychloroquine 09/14/2018 Reaction unknown Quinine Thrombocytopenia Sulfasalazine 09/14/2018 Patient not sure about reaction. Medications Medication Sig Dispensed Refills Start Date End Date Status aspirin 81 mg EC tablet Take 81 mg by mouth daily. Active lovastatin (MEVACOR) 40 mg tablet Take 40 mg by mouth nightly. Active metFORMIN (GLUCOPHAGE) 500 mg tablet Take 1,000 mg by mouth daily. Active levothyroxine (SYNTHROID) 75 mcg tablet Take 50 mcg by mouth daily. Active cholecalciferol, Vitamin D3, 25 mcg (1,000 unit) Capsule Take by mouth. Active calcium-vitamin D3 600 mg calcium- 400 unit Tablet Take by mouth. Active magnesium chloride (SLOW-MAG ORAL) Take 64 mg by mouth 2 times daily. Active fluticasone propion-salmeterol (ADVAIR) 100-50 mcg/dose Disk with Device Inhale 1 puff into the lungs every 12 hours. Active freestyle lite strips USE TO TEST BLOOD GLUCOSE ONCE DAILY 05/30/2019 Active fluticasone propionate (FLOVENT) 110 mcg/actuation HFA Aerosol Inhaler Inhale into the lungs. 06/22/2019 Active insulin detemir U-100 (Levemir FlexTouch U-100 Insuln) Insulin Pen 20 Units 2 times daily. Active gabapentin (Neurontin) 300 mg Capsule Take 2 capsules by mouth 3 times daily. 90 capsule 12 11/16/2021 Active gabapentin (Neurontin) 100 mg capsule Take 100 mg by mouth 3 times daily. Active albuteroL 90 mcg/actuation HFA Aerosol Inhaler Inhale 1 puff into the lungs every 4 hours as needed for Wheezing. Use with spacer Active famotidine (Pepcid) 40 mg tablet Take 40 mg by mouth nightly. 07/29/2022 Active carbidopa-levodopa CR (Sinemet CR) 25-100 mg ER tablet Take 1 tablet by mouth 2 times daily. Active traZODone (Desyrel) 50 mg tablet Take 25 mg by mouth as needed for Sleep. new Active canagliflozin (Invokana) 100 mg tablet Take 100 mg by mouth daily. Active cefPODOXime (Vantin) 200 mg tablet Take 200 mg by mouth 2 times daily. Active nitroGLYcerin (Nitrostat) 0.[address] 0.4 mg under the tongue every 5 minutes as needed for Chest pain. Active SITagliptin phosphate (Januvia) 100 mg tablet Take 100 mg by mouth daily. Active Hospital, Clinic, or Other Facility Administered Medication Ordered Dose Route Frequency Start Date End Date Status diclofenac (VOLTAREN) 1% topical gel 2 g 2 g Top 4 TIMES DAILY 07/06/2019 Active Active Problems Problem Noted Date Diagnosed Date Anemia, iron deficiency 02/04/2023 Anxiety 09/24/2022 Ascending aorta dilatation 09/24/2022 Atrophic vaginitis 09/24/2022 Bilateral cataracts 09/24/2022 Vulvar cancer 10/17/2021 Long-term use of high-risk medication 05/04/2020 Chest pain 07/22/2018 Overview (07/22/2018): Images from the original note were not included. 01/31/2018 MIBI (Fordyce) Hypertension 08/18/2011 Hyperlipidemia 08/18/2011 Hypothyroidism 08/18/2011 Psoriatic arthritis 08/18/2011 Overview (08/18/2011): On methotrexate as well as Humira started early 2010 Osteoarthritis 08/18/2011 Cervical spondylosis 08/18/2011 Overview (12/19/2011): MRI of the cervical spine without contrast obtained June 15 2011 prominent disc osteophyte at C2-C3 and to a lesser extent at C3-C4, with central canal stenosis greatest at C2-C3. Cord signal is reportedly normal although upon my reading, there certainly relative areas of increased signal intensity surrounding the site of greatest stenosis. Assessment & Plan (12/19/2011 8:12 AM EDT): The emerging picture is that of cervical stenosis with myelopathy. Recommended B12, other myelopathic labs. Recommend referral to neurosurgery for evaluation. Assessment & Plan (08/18/2011 4:51 PM EDT): My greatest concern is that this is cervical spondylosis with early signs of myelopathy. Recommend obtaining somatosensory evoked potentials in other neurophysiologic studies to characterize the conduction along the spinal cord. Social anxiety disorder 08/18/2011 Overview (08/18/2011): History of Menopause, premature 08/18/2011 Overview (08/18/2011): At age 34 Chronic constipation 08/18/2011 Dysosmia 08/18/2011 Balance problem 08/12/2011 Overview (08/12/2011): Onset 02/2011. Had to stop physical therapy because of transportation problems. Assessment & Plan (08/13/2011 7:30 AM EDT): This is a 61-year-old female with recent [...] today as well. 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 Overview (08/18/2011): History of , secondary to quinine like 2002 Immunizations Name Administration Dates Next Due Covid-19, Unknown Formulation 05/28/2020, 021,03/17/2020 Influenza (Fluzone HD) Quadr ivalent High Dose, Preservative Free 11/16/2021 Family History Medical History Relation Comments Parkinsonism Brother 1 Heart Surgery Brother 2 Thyroid Cancer Daughter Diabetes Father Myocardial Infarction Father Type 1 Diabetes Grandchild 1 Myocardial Infarction Mother Type 1 Diabetes Sister 3 Relation Status Comments Brother 1 parkinson's dise ase for 20 years (cleaned up hazardous waste spills) Brother 2 Alive 60, alcohol and heart disease Daughter 42, alive Father type I diabetes Grandchild 1 type I diabetes Grandchild 2 2 years old Mother Sister 1 (Age 54) muscular dystr ophy, diagnosed late in her 50s Sister 2 Alive 61,lately develo ped type II Sister 3 Alive 59, diabetes typ e I Sister 4 Alive 58, thyroid Sister 5 Alive 57, Alive and we ll Sister 6 Alive 49, Alive and we ll Son 1 41, good health, overweight Son 2 39 Social History Tobacco Use Types Packs/Day Years Used Date Smoking Tobacco: Never Smokeless Tobacco: Never Tobacco Cessation:Counseling Given: Not Answered Alcohol Use Standard Drinks/Week Comments No 0 (1 standard drink = 0.6 oz pur e alcohol) [facility] Utilities Answer Date Recorded In [...] on file Sexual Orientation Not on file Last Filed Vital Signs [...] Mass Index 20.89 07/29/2023 11:32 AM EDT Plan of Treatment Upcoming Encounters Date Type Department Care Team (Late st Contact Info) Description 03/01/2024 1:30 PM EST Office Visit Hematology/Oncology at [address] [phone] Imer Baker MD [facility] DR HEMATOLOGY [place] [address] [place] [address] 03/01/2024 2:00 PM EST Infusion Hematology Oncology at [address] [phone] 03/23/2024 11:30 AM EST TH Visit (TeleHealth) [place] [phone] Tory Willard CAR FERRIER [facility] [place] [address] Health Maintenance Due Date Last Done Comments CT Colonography 1949 Colonoscopy 1949 Colorectal Cancer Screening 1949 FIT DNA 1949 FIT 1949 Sigmoidoscopy (10 year) with FIT yearly 1949 Sigmoidoscopy 1949 Tetanus/Diphtheria/Pertussis Vaccines (1 - Tdap) 1968 Breast Cancer Share Decision Needed 1989 Breast Cancer screening 1989 Pneumoccocal Vaccine: 65+ (1 of 1 - PCV) 05/14/1999 Zoster vaccine (1 of 2) 05/14/1999 Advance Directive 2004 Bone Density Scan 2014 Covid-19 Vaccine (4 - 2023-2 5 season) 2023 05/28/2020, 04/30/2020, 03/17/2020 Influenza (Flu) vaccine (1 o f 1 - Influenza standard series) 10/24/2023 11/16/2021 Hepatitis C Screening Completed 03/10/2019, 019 HPV test Discontinued 10/01/2021 PAP Smear Discontinued 10/01/2021 Procedures Procedure Name Priority Date/Time Associated Diagnosis Comments ULTRASOUND SCAN (SCAN) 02/21/2024 12:00 AM EST HPV Routine 10/01/2021 3:45 PM EDT CONCRETE POURER CYTOLOGY FINAL REPORT Routine 10/01/2021 3:45 PM EDT HC HEPATITIS C ANTIBODY Routine 03/10/2019 3:44 PM EST Hepatic cirrhosis, unspecified hepatic cirrhosis type, unspecified whether ascites present from Last 3 Months or Most Recently Relevant to Health Maintenance Results * Scan Doc: Ultrasound (02/21/2024 12:00 AM EST) Anatomical Region Laterality Modality Other Narrative 02/21/2024 12:00 AM EST Ordered by an unspecified provider. Scanning Provider MEDIA MGR SCAN EXT O RDR/RSLT * HPV (10/01/2021 3:45 PM EDT) HPV16 NEGATIVE NEGATIVE [facility] HPV 18 NEGATIVE NEGATIVE [facility] HPV Other HR NEGATIVE NEGATIVE [facility] HPV Interpretation See Comment [facility] Comment: NEGATIVE for high-risk HPV *. ?? *Testing negative for high risk HPV means that high risk HPV DNA is not detected in the specimen for the following 14 types tested: types 16, 18, 31, 33, 35, 39, 45, 51, 52, 56, 58, 59, 66, and 68. The test is not intended to detect low risk HPV types. ?? Method: Cliff jules HPV test (FDA-approved for clinical use) Specimen: HPV Testing ? Cytology Liquid Based Prep This test is validated for cervical specimens only for use in cervical cancer screening. ??Other uses or specimen types are not validated/recommended. Cervical 10/01/2021 3:45 PM EDT 10/02/2021 10:24 AM EDT Narrative Resulting Agency Comment Spec In Lab Miladys Anderson MD PATHOLOGY/CYTOLOGY O RDERABLES [facility] [place] [address] * Briar Cutter Cytology Final Report (10/01/2021 3:45 PM EDT) Briar Cutter Cytology Final Report [id number] ? Location: The signing pathologist has (i) examined the relevant preparation(s) for the specimen(s) and (ii) rendered or confirmed the diagnosis(es). . ? Briar Cutter Final DIAGNOSIS Normal Negative for intraepithelial lesion or malignancy (NILM). For consensus guidelines for the management of cervical cancer screening test results, please see: ?? http://www.asccp.o rg . Electronically signed by: ?Sharita GARCIA(ASCP), Hailey E Verified: ??10/09/2021 10:56 ??Engineer Sergeant Performed at: ??-[facility] [place], [place], [place] DISCUSSION Atrophic pattern sample. HPV RESULTS HPV16 (Result) ?Negative HPV18 (Result) ?Negative HPVOHR (Result) ? Negative HPV (Interpretation) ?See Below HPV (Interpretation) Text: NEGATIVE for high-risk HPV *. *Testing negative for high risk HPV means that high risk HPV DNA is not detected in the specimen for the following 14 types tested: types 16, 18, 31, 33, 35, 39, 45, 51, 52, 56, 58, 59, 66, and 68. The test is not intended to detect low risk HPV types. Method: Cliff jules HPV test (FDA-approved for clinical use) Specimen: HPV Testing ?? - Cytology Liquid Based Prep This test is validated for cervical specimens only for use in cervical cancer screening. ??Other uses or specimen types are not validated/rec ommended. The Cliff jules ? HPV test was validated, performed and results reported through the [facility] ([facility]) at [facility] [place] ? - Ron Sam, PhD, [facility], Director-[facility] STATEMENT OF ADEQUACY Specimen submitted is satisfactory. Endocervical component present. CLINICAL INFORMATION HPV Option: ?Concurrent HPV and Pap CT/NG Option: ?No Preparation: ? Liquid based Pap Specimen Source: ? Cervical/Endocervi adiel LMP: ? n/a Hysterectomy: ?No : ?No : ?No I.U.D.: ?No Pelvic Radiation: ?No Hist Abnl Pap/Biopsy: ?No Prior [employer]CR[employer]E POURER Therapy: ? No Hist of HPV Vaccine: ? No . CLINICAL INFORMATION ICD Diagnosis: ? Z85.40 Personal history of malignant neoplasm of unspecified female genital organ Clinical Data, Significant Therapy and Clinical Impression ?? : ?_ This Pap Test has been evaluated with the assistance of the [employer] Pap Test Imaging System. Note: The Pap test is a screening test for cervical cancer with an inherent false-negative rate dependent upon several variables. For further information please contact the [facility] [place]. Reference: David CHAPA. Diabetes Physician of Pap Smear Results. In: Lucia BS, Judd HH, ed. The Pap Smear. [place]: Antonio, 2002: 71-77. [facility] 10/01/2021 3:45 PM EDT Miladys Anderson MD PATHOLOGY/CYTOLOGY O MAIA [facility] [place] [address] * Hepatitis C Antibody (03/10/2019 3:44 PM EST) Hepatitis C Antibody Negative Negative [facility] Blood specimen (specimen) 03/10/2019 3:44 PM EST 03/10/2019 3:59 PM EST Narrative Resulting Agency Comment Spec In Lab Tory Willard CAR FERRIER CHEMISTRY ORDERABL ES [facility] [place] [address] from Last 3 Months or Most Recently Relevant to Health Maintenance Advance Directives * Attempt Cardiopulmonary Resuscitation - Inpatient (Latest Code Status on File) Date Activated Date Inactivated Comments 11/14/2021 5:54 PM 11/16/2021 5:25 PM Question Answer Comments Code Status decision made by: Patient Care Teams Bull Gang Worker Relationship Specialty Start Date End Date Kaci Vasquez MD [address] [place], [place] [id number] PCP - General Family Medicine 07/29/23
--- OUTSIDE RECORDS SUMMARY | 2024-02-21 13:24 | XMS_ITS | Encounter Summary ---
Author Organization [facility] Address [facility] [place] [address] Care Team Providers Care Print Developer Automatic Name Role Phone Maricarmen Galvan APRN Primary Care Provider [phone] Encounter Details Date Type Department Care Team (Latest Contact Info) Description 07/01/2023 Travel Social History Tobacco Use Types Packs/Day Years Used Date Smoking Tobacco: Never Smokeless Tobacco: Never Alcohol Use Standard Drinks/Week Comments No 0 (1 standard drink = 0.6 oz pur e alcohol) [facility] Utilities Answer Date Recorded In the past 12 months has th e [employer], gas, oil, or water [employer] threatened to shut off services in your [...] place to sleep or slept in a alf (including now)? No 02/04/2023 Sex and Gender Information Value Date Recorded Sex Assigned at Not on file Gender Identity Not on file Sexual Orientation Not on file documented as of this encounter Plan of Treatment Upcoming Encounters Date Type Department Care Team (Late st Contact Info) Description 03/01/2024 1:30 PM EST Office Visit Hematology/Oncology at [address] [phone] Imer Baker MD [facility] DR [place] [address] Heidi Cruz APRN [address] [place] [address] MEDICAL ONCOLOGY [place], [place] [address] 03/01/2024 2:00 PM EST Infusion Hematology Oncology at [address] [phone] 03/23/2024 11:30 AM EST TH Visit (TeleHealth) [place] [address] Tory Willard APRN [facility] [place] [address] documented as of this encounter Visit Diagnoses Not on filedocumented in this encounter Care Teams Print Developer Automatic Relationship Specialty Start Date End Date Maricarmen Galvan APRN PCP - General Family Medicine 05/10/18 07/28/23 documented as of this encounter
--- OUTSIDE RECORDS SUMMARY | 2024-02-21 13:24 | XMS_ITS | Encounter Summary ---
Author Organization [facility] [place] [address] Care Team Providers Care Sheet Metal Roofer Name Role Phone Maricarmen Galvan JORGE Primary Care Provider [phone] Encounter Details Date Type Department Care Team (Late Contact Info) Description 08/14/2022 Telephone [place] [phone] Jesusita Romero Social History Tobacco Use Types Packs/Day Years [...] * Telephone Encounter - Jesusita Romero - 08/14/2022 9:47 AM EDT Called pt and LVM pt needs Follow up in 6 months with labs, US and visit. Per Leif RECALL IN documented in this encounter Plan of Treatment Upcoming Encounters Date Type Department Care Team (Late st Contact Info) Description 03/01/2024 1:30 PM EST Office Visit Hematology/Oncology at [address] [phone] Imer Baker MD [facility] [place] [address] Heidi Cruz APRN [address] [place] [address] [place] [address] 03/01/2024 2:00 PM EST Infusion Hematology Oncology at [address] [phone] 03/23/2024 11:30 AM EST TH Visit (TeleHealth) [place] [address] Tory Willard, JORGE [facility] [place] [address] documented as of this encounter Visit Diagnoses Not on filedocumented in this encounter Care Teams Sheet Metal Roofer Relationship Specialty Start Date End Date Maricarmen Galvan APRN PCP - General Family Medicine 05/10/18 07/28/23 documented as of this encounter
--- OUTSIDE RECORDS SUMMARY | 2024-02-21 13:24 | XMS_ITS | Encounter Summary ---
Author Organization [facility] Address [facility] [place] [address] Care Team Providers Care Loading Dock Hand Name Role Phone Kaci Vasquez MD Primary Care Provider [phone] Encounter Details Date Type Department Care Team (Latest Contact Info) Description 07/29/2023 Travel Social History Tobacco Use Types Packs/Day Years Used Date Smoking Tobacco: Never Smokeless Tobacco: Never Alcohol Use Standard Drinks/Week Comments No 0 (1 standard drink = 0.6 oz pur e alcohol) [facility] Utilities Answer Date Recorded In the past 12 months has th e [employer], gas, oil, or water [employer] threatened to shut off services in your [...] place to sleep or slept in a half-way (including now)? No 02/04/2023 Sex and Gender Information Value Date Recorded Sex Assigned at Not on file Gender Identity Not on file Sexual Orientation Not on file documented as of this encounter Plan of Treatment Upcoming Encounters Date Type Department Care Team (Late st Contact Info) Description 03/01/2024 1:30 PM EST Office Visit Hematology/Oncology at [address] [phone] Imer Baker MD [facility] DR HEMATOLOGY [place] [address] [address] Cruz [address] MEDICAL ONCOLOGY [place], [place] [address] 03/01/2024 2:00 PM EST Infusion Hematology Oncology at [address] [phone] 03/23/2024 11:30 AM EST TH Visit (TeleHealth) [place] [address] Tory Willard APRN [facility] [place] [address] documented as of this encounter Visit Diagnoses Not on filedocumented in this encounter Care Teams Loading Dock Hand Relationship Specialty Start Date End Date Kaci Vasquez MD [address] [place], [place] [address] PCP - General Family Medicine 07/29/23 documented as of this encounter
--- OUTSIDE RECORDS SUMMARY | 2024-02-21 13:24 | XMS_ITS | Encounter Summary ---
Author Organization [facility] [place] [address] Care Team Providers Care Plant Biology Professor Name Role Phone Maricarmen Galvan JORGE Primary Care Provider [phone] Encounter Details Date Type Department Care Team (Latest Contact Info) Description 06/24/2022 Travel Social History Tobacco Use Types Packs/Day [...] 1:30 PM EST Office Visit Hematology/Oncology at [address] [phone] Imer Baker MD [facility] DR [place] [address] Heidi Cruz APRN [address] [place] [address] [place] [address] 03/01/2024 2:00 PM EST Infusion Hematology Oncology at [address] [phone] 03/23/2024 11:30 AM EST TH Visit (TeleHealth) [place] [phone] Tory Willard APRN [facility] [place] [address] documented as of this encounter Visit Diagnoses Not on filedocumented in this encounter Care Teams Plant Biology Professor Relationship Specialty Start Date End Date Maricarmen Galvan APRN PCP - General Family Medicine 05/10/18 07/28/23 documented as of this encounter
--- OUTSIDE RECORDS SUMMARY | 2024-02-21 13:24 | XMS_ITS | Encounter Summary ---
Author Organization [facility] Address [facility] [place] [address] Care Team Providers Care Automobile Mechanic Motor Name Role Phone Maricarmen Galvan JORGE Primary Care Provider [phone] Encounter Details Date Type Department Care Team (Late st Contact Info) Description 07/01/2023 1:30 PM EDT Infusion Hematology Oncology at [address] [phone] Social History Tobacco Use Types Packs/Day Years Used Date Smoking Tobacco: Never Smokeless Tobacco: Never Alcohol Use Standard Drinks/Week Comments No 0 (1 standard drink = 0.6 oz pur e alcohol) [facility] Utilities Answer Date Recorded In [...] PM EST Office Visit Hematology/Oncology at [address] [phone] Imer Baker MD [facility] DR HEMATOLOGY [place] [address] Heidi Cruz MARKETING ACCOUNT EXECUTIVE [address] [place] [address] [place] [address] 03/01/2024 2:00 PM EST Infusion Hematology Oncology at [address] [phone] 03/23/2024 11:30 AM EST TH Visit (TeleHealth) [place] [address] Tory Willard MARKETING ACCOUNT EXECUTIVE [facility] [place] [address] documented as of this encounter Visit Diagnoses Not on filedocumented in this encounter Care Teams Automobile Mechanic Motor Relationship Specialty Start Date End Date Maricarmen Galvan APRN PCP - General Family Medicine 05/10/18 07/28/23 documented as of this encounter
--- OUTSIDE RECORDS SUMMARY | 2024-02-21 13:24 | XMS_ITS | Encounter Summary ---
Author Organization [facility] Address [facility] [address] Care Team Providers Care Field Representatives Director Name Role Phone Maricarmen Galvan APRN Primary Care Provider [phone] Encounter Details Date Type Department Care Team (Latest Contact Info) Description 02/04/2023 Travel Social History Tobacco Use Types Packs/Day Years Used Date Smoking Tobacco: Never Smokeless Tobacco: Never Alcohol Use Standard Drinks/Week Comments No 0 (1 standard drink = 0.6 oz pur e alcohol) [facility] Utilities Answer Date Recorded In the past 12 months has th e [employer], gas, oil, or water [employer] threatened to shut off services in your [...] place to sleep or slept in a nursing home (including now)? No 02/04/2023 Sex and Gender Information Value Date Recorded Sex Assigned at Not on file Gender Identity Not on file Sexual Orientation Not on file documented as of this encounter Plan of Treatment Upcoming Encounters Date Type Department Care Team (Late st Contact Info) Description 03/01/2024 1:30 PM EST Office Visit Hematology/Oncology at [address] [phone] Imer Baker MD [facility] DR [place] [address] Heidi Cruz APRN [address] [place] [address] MEDICAL ONCOLOGY [place], [place] [address] 03/01/2024 2:00 PM EST Infusion Hematology Oncology at [address] [phone] 03/23/2024 11:30 AM EST TH Visit (TeleHealth) [place] [address] Tory Willard APRN [facility] [place] [address] documented as of this encounter Visit Diagnoses Not on filedocumented in this encounter Care Teams Field Representatives Director Relationship Specialty Start Date End Date Maricarmen Galvan APRN PCP - General Family Medicine 05/10/18 07/28/23 documented as of this encounter
--- OUTSIDE RECORDS SUMMARY | 2024-02-21 13:25 | XMS_ITS | Encounter Summary ---
Author Organization [facility] [address] Care Team Providers Care Warehouse Traffic Supervisor Name Role Phone Maricarmen Galvan APRN Primary Care Provider [phone] Reason for Visit * Reason Comments Follow-up Encounter Details Date Type Department Care Team (Late st Contact Info) Description 11/24/2021 10:00 AM EDT Office Visit [place] [phone] Miladys Anderson MD [facility] DR OBSTETRICS [place] [address] Vulvar cancer; Post-operative state Social History Tobacco Use Types Packs/Day Years [...] Sign Reading Time Taken Comments Blood Pressure 119/75 11/24/2021 10:29 AM EDT Pulse 95 11/24/2021 10:29 AM EDT Temperature 36.2 ??C (97.2 ??F) 11/24/2021 10:29 AM E DT Respiratory Rate 16 11/24/2021 10:29 AM EDT Oxygen Saturation 98% 11/24/2021 10:29 AM EDT Inhaled Oxygen Concentration - - Weight 52.3 kg (115 lb 4.8 oz) 11/24/2021 10:29 AM EDT Height 153.7 cm (5' 0.51) 11/24/2021 10:29 AM E DT Body Mass Index 22.14 11/24/2021 10:29 AM EDT documented in this encounter Progress Notes * Gabriela Serrano LNA - 11/24/2021 10:00 AM EDT Examination chaperoned by TAMMY Bustillo. * Miladys Anderson MD - 11/24/2021 10:00 AM EDT Images from the original note were not included. GYNECOLOGIC ONCOLOGY OUT PATIENT FOLLOW UP Date: 11/24/21 Name: Shereen Vega : 1950 CSN: [id number] Patient Care Team: Patient Care Team: Maricarmen Galvan APRN as PCP - General (Family Medicine) Dr Solange Fuentes, [facility] [facility] HISTORY OF PRESENT ILLNESS Shereen Vega is a 71 y.o. old para 3 woman, seen at the request of Dr Solange Fuentes in consultation for recommendations evaluation and assessment regarding her primary diagnosis of squamous cellcarcinoma vulva. Patient endorses vulvar itching for most of her life. Saw MD Dr Fuentes for evaluation for lesion with biopsy performed as noted below. Patient counseled to start topical steroids Associated symptoms some urge incontinence, rarely has accidents Not sexually active, no bleeding. No regular mid level practitioner care. No other weight loss, change in appetite or change in energy. Last visit: surgery 11/14/21 Interval history: patient recovering well from surgery. She has completed antibiotic and continues on lovenox. She has not needed oxy and relied upon Tylenol. FS have been well controlled. Visiting nurse came daily to look at drain output, but reportedly has not been changing the dressings. Patient wants HAILE out today if possible. Urinating well, no bleeding, ambulating in house well. brings log of HAILE output < 20 cc daily for past couple days. Performance Status: 1 Oncology History She denies abnormal vaginal bleeding, discharge or unusual pelvic pain, no dysuria, frequency or hematuria. no trouble urinating, blood in urine, pain with urination, urinary incontinence Review of Systems Review of Systems Pertinent positives and negatives noted in HPI. All others reviewed and negative. Health Care Maintenance LMP: 30 Last Pap: Last Mammogram: 2020 Last Colorectal Screen: never had IMAGING AND LAB REVIEW I personally reviewed labs/radiology reports/pathology tests and other supporting records as part of my consultation today with the patient. CT 10/17/21 [facility] ABD/PELVIS Mild splenomegaly, collateralization esophageal varices and recanalized umbilical vein c/w portal hypertension. No ascites. hypodentisties in right hepatic lobe, < 1 cm. Require follow up. No sign of mets, portal changes [facility] Vulva, 10 o'clock, biopsy: Invasive keratinizing squamous cell carcinoma, well-moderately differentiated, extending to deep and peripheral edges Vulvar biopsy 09/16/21 PAST HISTORY Past Medical History Patient Active Problem List Diagnosis Code ??? [...] ??? Long-term use of high-risk medication Z79.899 ??? 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 APPENDECTOMY ??? OVARIAN CYST SURGERY right removed ??? PRO UPPER GI ENDOSCOPY, DIAGNOSTIC had hoarse throat N/A 07/25/2019 EGD, UPPER GI ENDOSCOPY performed by Azam Dee MD at [facility] ENDOSCOPY ??? 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 Family History family history includes Diabetes in her father; Heart Surgery in her brother; Myocardial Infarctionin her father and mother; Parkinsonism in her brother; Thyroid Cancer in her daughter; Type 1 Diabetes in her grandchild and sister. CURRENT MEDICATIONS Current Outpatient Medications Medication Sig Dispense Refill ??? enoxaparin (Lovenox) 40 mg/0.4 mL Syringe Inject 0.4 mLs subcutaneously daily for 12 days. 4.8 mL 0 ??? cephALEXin (Keflex) 250 mg Capsule Take [...] (Top) 4 Times Daily Manny Lugo MD PHYSICAL EXAM BP 119/75 (Patient Position: Sitting) Pulse 95 Temp 36.2 ??C (97.2 ??F) (Tympanic) Resp 16 Ht 153.7 cm (5' 0.51) Wt 52.3 kg (115 lb 4.8 oz) SpO2 98% BMI 22.14 kg/m?? Constitutional: Patient is in no acute distress Psychiatric: Affect is appropriate Neurologic: Exam is non-focal Eyes: Sclera are anicteric ENMT: Mucous membranes are moist Cardiovascular: Regular rate and rhythm Respiratory: Normal effort Gastrointestinal: Abdomen is soft, non-tender, no masses Musculoskeletal: Calves are non-tender, equal in size Groins: well healing left groin incision, HAILE removed. Induration at site incision, skin flap intactand well perfused. Skin: Warm to the touch PELVIC Vulva: Normal female external genitalia. Vagina: Normal pink mucosa. No discharge. Cervix: palpable normal Uterus: Mobile normal size Adnexa: No palpable masses. Rectal: Rectovaginal septum smooth. Physical Exam Genitourinary: Advance Directives none ASSESSMENT/PLAN I have reviewed old records and notes from [facility] and Care Everywhere, as appropriate, in summarizing the patient's prior relevant history to make my assessment and to formalize my recommended plan of care. Post op Vulvar cancer Awaiting path. D/w patient and rationale for pathology to guide decision making about need for future treatment. The patient and her 's questions were answered. HAILE out. Stop antibiotics tomorrow and plan complete lovenox course. Psoriatic arthritis hypothyroid Diabetes type 2 Anxiety hyperlipidemia Cirrhosis Liver hypodensities Stable under care primary care provider Patient does not follow her glucose due to bruising from her fingerstick device. Per patient, her cirrhosis has been stable with CT evidence to support portal hypertension. Patientmay require follow up liver hypodenisties, I d/w patient I will defer to her primary care provider. Return to Clinic: 3 months Plan to call patient with pathology once available I personally spent a total of 30 minute visit in counseling and coordinating care for Shereen Vega. We discussed the plan and rationale for ongoing surveillance. Signed, Miladys Anderson MD 11/24/21 documented in this encounter Plan of Treatment Upcoming Encounters Date Type Department Care Team (Late st Contact Info) Description 03/01/2024 1:30 PM EST Office Visit Hematology/Oncology at [address] [phone] Imer Baker MD [facility] DR HEMATOLOGY [place] [address] Heidi Cruz APRN [address] [place] [address] [place] [address] 03/01/2024 2:00 PM EST Infusion Hematology Oncology at [address] [phone] 03/23/2024 11:30 AM EST TH Visit (TeleHealth) [place] [address] Tory Willard APRN [facility] [place] [address] documented as of this encounter Visit Diagnoses Diagnosis Vulvar cancer Malignant neoplasm of vulva, unspecified site Post-operative state Other postprocedural status documented in this encounter Care Teams Warehouse Traffic Supervisor Relationship Specialty Start Date End Date Maricarmen Galvan APRN PCP - General Family Medicine 05/10/18 07/28/23 documented as of this encounter
--- OUTSIDE RECORDS SUMMARY | 2024-02-21 13:25 | XMS_ITS | Encounter Summary ---
Author Organization [facility] [address] Care Team Providers Care After School Tutor Name Role Phone Maricarmen Galvan APRN Primary Care Provider [phone] Encounter Details Date Type Department Care Team (Late st Contact Info) Description 10/31/2021 11:59 PM EDT [place]est[place] [phone] Rhiannon Vivar MD [facility] DR ANESTHESIOLOGY [place] [address] Anesthesia Record Procedure Summary Procedure Name Responsible Anesthesiologist Anesthesia Start Time Anesthesia Stop Time MYD-H VIDEO VISIT NEW Events No events on file. Meds * Agents No agents on file. * Blood No blood administrations on file. Lines, Drains, and Airways No LDAs on file. documented in this encounter Social History Tobacco Use Types Packs/Day Years Used Date Smoking Tobacco: Never Smokeless Tobacco: Never Alcohol Use Standard Drinks/Week Comments No 0 (1 standard drink = 0.6 oz pur e alcohol) Sex and Gender Information Value Date Recorded Sex Assigned at Not on file Gender Identity Not on file Sexual Orientation Not on file documented as of this encounter OR Notes * Anesthesia Preprocedure Evaluation - Rhiannon Vivar MD - 10/31/2021 10:14 AM EDT Images from the original note were not included. Pre-Anesthesia Evaluation for: Shereen Kim Gary a 71 y.o. female. Patient Active Problem List Diagnosis Date Noted ??? Vulvar cancer 10/17/2021 ??? Long-term use of high-risk medication 05/04/2020 ??? Chest pain 07/22/2018 ??? Hypertension 08/18/2011 ??? Hyperlipidemia 08/18/2011 ??? Hypothyroidism 08/18/2011 ??? Psoriatic arthritis 08/18/2011 ??? Osteoarthritis 08/18/2011 ??? Cervical spondylosis 08/18/2011 ??? Social anxiety disorder 08/18/2011 ??? Menopause, premature 08/18/2011 ??? Chronic constipation 08/18/2011 ??? Dysosmia 08/18/2011 ??? Balance problem 08/12/2011 ??? Transient global amnesia 02/22/2007 ??? thrombocytopenia secondary to quinine 08/22/2002 Past Medical History: Diagnosis Date ??? 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 Cervical spondylosis 08/18/2011 ??? diabetes 2001 ??? Dysosmia 08/18/2011 ??? Gastroesophageal reflux disease 08/18/2011 ??? Hyperlipidemia 08/18/2011 ??? Hypertension 08/18/2011 ??? Hypothyroidism 08/18/2011 ??? Menopause, premature 08/18/2011 ??? Osteopenia ??? Psoriatic arthritis 08/18/2011 ??? Rheumatoid arthritis(714.0) 2001 ??? Social anxiety disorder 08/18/2011 ??? Transient global amnesia Past Surgical History: Procedure Laterality Date ??? APPENDECTOMY ??? OVARIAN CYST SURGERY right removed ??? PRO UPPER GI ENDOSCOPY, DIAGNOSTIC N/A 07/25/2019 EGD, UPPER GI ENDOSCOPY performed by Azam Dee MD at [facility] ENDOSCOPY ??? TUBAL LIGATION Social History Tobacco Use ??? Smoking status: Never Smoker ??? Smokeless tobacco: Never Used Substance Use Topics ??? Alcohol use: No Social History Substance and Sexual Activity Drug Use No Allergies Allergen Reactions ??? Erythromycin Base Abdominal pain ??? Penicillins Hives ??? Plaquenil [Hydroxychloroquine] Reaction unknown ??? Quinine Thrombocytopenia ??? Sulfasalazine Patient not sure about reaction. Medications: MAR and/or home medications have been reviewed. Physical Exam: Preprocedure Vitals Current as of 10/31/21 1014 No BP, pulse, respiration, SpO2, or temperature recorded. Height: Weight: BMI: IBW: Anesthesia Physical Exam Last Filed Perioperative Cognitive Screening Value Time User AD8 Total Score: 2 10/31/2021 10:44 AM Alpesh Guan MD AD8 Informant: Other Informant 10/31/2021 10:44 AM Alpesh Guan MD Anesthesia Plan Anesthesia Screening Note: Date and Time of Entry: 10/31/2021 10:14 AM Entered By: Rhiannon Vivar MD Reason for Evaluation: Surgeon Request Other Reason: Comorbidities including HTN, psoriatic arthritis, hypothyroidism Screening Visit Type: Video Conference Findings, Assessment and Plan: 71 y.o. female with PMH significant for HTN, T2DM, hypothyroidism, psoriatic arthritis, cervical spondylosis, transient global amnesia, cirrhosis (attributed to MTX), and vulvar squamous cell carcinoma scheduled for radical vulvectomy and lymph node biopsy w/ Dr. Anderson. 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 female with PMH significant for HTN, T2DM, hypothyroidism, psoriatic arthritis, cervical spondylosis, transient global amnesia, cirrhosis (attributed to MTX), and vulvar squamous cell carcinoma scheduled for radical vulvectomy and lymph node biopsy w/ Dr. Anderson. Patient has not had any issues with bleeding or complications from anesthesia during her prior surgeries. 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 Of note, patient had 80% stenosis of the LAD documented in 2009; however, revascularization was delayed in favor of medical management. A nuclear stress test in 2019 revealed lack of perfusion defect with normal LVEF function. Therefore, will recommend EKG prior to surgery but no need for further stress testing as patient remains asymptomatic. D/t her age and AD8 screen >2, patient is at slightly increased risk of delirium. Major plan as outlined below. PLAN + RECOMMENDATIONS: -Order EKG prior to surgery -Avoid delirium-inducing medications -Consider intraoperative sed monitor to minimize anesthetic exposure Rhiannon Vivar MD 10/31/2021 Perioperative Care Clinic phone extension: [phone] documented in this encounter Plan of Treatment Upcoming Encounters Date Type Department Care Team (Late st Contact Info) Description 03/01/2024 1:30 PM EST Office Visit Hematology/Oncology at [address] [phone] Imer Baker MD [facility] DR HEMATOLOGY [place] [address] Heidi Cruz APRN [address] [place] [address] [place] [address] 03/01/2024 2:00 PM EST Infusion Hematology Oncology at [address] [phone] 03/23/2024 11:30 AM EST TH Visit (TeleHealth) [place] [phone] Tory Willard APRN [facility] [place] [address] documented as of this encounter Visit Diagnoses Not on filedocumented in this encounter Care Teams After School Tutor Relationship Specialty Start Date End Date Maricarmen Galvan, PERCUSSION TUNER PCP - General Family Medicine 05/10/18 07/28/23 documented as of this encounter
--- OUTSIDE RECORDS SUMMARY | 2024-02-21 13:25 | XMS_ITS | Encounter Summary ---
[place] [address] Care Team Providers Care Return To Vendor Name Role Phone Maricarmen Galvan APRN Primary Care Provider [phone] Reason for Referral * Home Health Care (Routine) - Closed Specialty Diagnoses / Procedures Referred By Anna macias Referred To Contact Diagnoses Vulvar cancer Miladys Anderson MD [facility] [place] [address] [place] [address] [facility] [address] [place] [address] Referral ID Status Reason Start Date Expiration Date V isits Requested Visits Authorized [id number] Closed Consult, Test & Treat 11/16/2021 05/15/2022 999 999 Reason for Visit * Auth/Cert Specialty Diagnoses / Procedures Referred By Anna macias Referred To Contact Diagnoses Vulvar cancer VULVAR CANCER . Procedures PRO VULVA RESECT, RAD, PART, BILAT NODES PRO INTRAOP SENTINEL LYMPH ID W/DYE INJECTION @VULVECTOMY, RAD,PARTIAL WITH LYMPHADENECTOMY-ANA (WRVU 21.86) INTRAOPERATIVE ID (MAPPING) SENTINEL LYMPH NODE,INCLUDES INJECTION (WRVU 2.5) Miladys Anderson MD [facility] [place] [address] [place] [address] [facility] Referral ID Status Reason Start Date Expiration Date Visits Re quested Visits Authorized [id number] 1 1 Encounter Details Date Type Department Care Team (Latest Contact Info) Description 11/14/2021 12:41 PM EDT - 11/16/2021 3:25 PM EDT Hospital Encounter Hematology [place] [address] Miladys Anderson MD [facility] [address] [place] [address] Vulvar cancer Discharge Disposition: Home with VNA Social History Tobacco Use Types Packs/Day Years [...] Sign Reading Time Taken Comments Blood Pressure 124/70 11/16/2021 11:29 AM EDT Pulse 90 11/15/2021 12:00 PM EDT Temperature 36.4 ??C (97.6 ??F) 11/16/2021 11:29 AM E DT Respiratory Rate 20 11/16/2021 11:29 AM EDT Oxygen Saturation 92% 11/16/2021 11:29 AM EDT Inhaled Oxygen Concentration - - Weight 52.6 kg (116 lb) 11/14/2021 1:15 PM EDT Height 153.7 cm (5' 0.51) 11/14/2021 1:15 PM ED T Body Mass Index 22.27 11/14/2021 1:15 PM EDT documented in this encounter Discharge Summaries * Carlos A Strauss MD - 11/16/2021 11:05 AM EDT Discharge Summary Patient Name: Shereen Vega Patient Age: 71 y.o. Language: Arabic Race: White Ethnicity: Not nor Admit date: 11/14/2021 Discharge date and time: 11/16/2021 Attending Physician: Miladys Anderson MD Discharge Physician: Zulma Deluna MD Follow-up Recommendations for Providers: -VNA services for incision and drain care -Follow-up with Dr. Anderson on 11/24/21 at 10:00AM; 12/01/21 at 9:00AM; 12/08/21 at 11:00AM Inpatient Provider Contact Information: Dr. Miladys Anderson, [facility] Gynecologic Oncology, Discharge Diagnoses (Hospital Problems) and Secondary Diagnoses (Chronic Problems): Active Hospital Problems Diagnosis ??? Vulvar cancer Resolved Hospital Problems No resolved problems to display. Active Non-Hospital Problems Diagnosis ??? Long-term use of high-risk medication ??? Chest pain ??? Hypertension ??? Hyperlipidemia ??? Hypothyroidism ??? Psoriatic arthritis ??? Osteoarthritis ??? Cervical spondylosis ??? Social anxiety disorder ??? Menopause, premature ??? Chronic constipation ??? Dysosmia ??? Balance problem ??? Transient global amnesia ??? thrombocytopenia secondary to quinine Operations/Major Procedures: 11/14/2021 Radical vulvectomy with right sentinel lymph node dissection History of Presentation: Shereen Vega is a 71 y.o. old para 3 woman whom endorses vulvar itching for most of her life. Saw Dr Fuentes for evaluation for lesion with biopsy performed which demonstrated squamous cell carcinoma vulva. ?? CT 10/17/21: Mild splenomegaly, collateralization esophageal varices and recanalized umbilical vein c/w portal hypertension. No ascites. hypodentisties in right hepatic lobe, < 1 cm. -No sign of mets, portal changes She now presents for definitive surgical management. Hospital Course: Shereen Vega was admitted through Same Day Surgery and underwent the above procedures without complication. EBL was 100mL. Findings were notable for: EUA: right vulvar cancer 2 x 1.5 cm lateral lesion involving right labia majora, mobile with associated leukoplakia up to clitoral veloz and inferiorly to edge labia majora, cervix in situ and vagina smooth No enlarged lymph node, sentinel lymph node RIGHT identified and negative Postoperatively the patient was taken to PACU. Her post-operative course was complicated by hypotension requiring a Jaimei-Synephrine drip, likely 2/2 vasoplegia from anesthesia. Her physical exam was reassuring, with a STAT CBC demonstrating a Hgb of 11. She received an additional 500mL fluid bolus for additional resuscitation. She was seen and evaluated by Critical Care, who agreed that there was low suspicion for any acute pathological process and on POD #0 was transferred to the step down unitfor additional titration off Jaimie-Synephrine. On POD#1, she was transferred back to the floor given stability of her blood pressures off any additional medications. The patient was additionally continued on 2g Ancef q8hr, which was transitioned to PO Keflex 250mg BID on discharge, to be taken while right groin drain was in place. The patient was able to tolerate a regular diet and ambulate without difficulty. Davis catheter was removed on POD#1 and pt was able to void without issue. Their pain was well-controlled on oral medications by thetime of discharge and she was recommended to take 200mg ibuprofen q4-6 PRN for pain. The patient was discharged home on POD #2 in stable condition with follow-up in place. We discussed discharge instructions, including drain log and teaching, and plan of care, all questions answered. She was recommended to take subQ Lovenox for two weeks post-operatively. . Vital signs at Discharge: BP: 100/57, Heart Rate: 90, Temp: 36.8 ??C (98.2 ??F), Resp: 16, BMI (Calculated): 22.27 Height: 153.7 cm (5' 0.51) (11/14/21 1315) Weight: 52.6 kg (116 lb) (11/14/21 1315) Functional and Cognitive status: Cognitively intact and stable Important Studies and Lab Data: Labs: Last 3 wbc, hgb, hct plt Recent Labs 11/14/21203410/01/21 1707 09/11/21 0937 WBC 8.0 5.8 6.1 HGB 11.1* 13.1 12.2 HCT 33.0* 38.5 36.9 PLATELET 81* 96* 112* Last 3 Lytes Recent Labs 11/15/21 0502 10/01/21 1707 09/11/21 0937 NA 139 142 141 K 3.8 4.1 4.2 CL 107 105 104 CO2 24 28 27 BUN 9 12 16 CREATININE 0.80 0.95 1.17 Last Ca, Mg, Phos Recent Labs 11/15/21 0502 CALCIUM 8.2* PHOS 3.7 MAGNESIUM 0.63* Studies: NA Pending Studies and Lab Data: Final pathology PENDING Discharge Conditions/Prognosis: stable Discharge to: Home Updated Allergies/ADRs: Allergies Allergen Reactions ??? Erythromycin Base Abdominal pain ??? Penicillins Hives ??? Plaquenil [Hydroxychloroquine] Reaction unknown ??? Quinine Thrombocytopenia ??? Sulfasalazine Patient not sure about reaction. Immunizations Given this Hospitalization: There is no immunization history for the selected administration types on file for this patient. Discharge Medications: Your Medications New Medications Dose Details cephALEXin 250 mg Cap Commonly known as: Keflex Take 1 capsule by mouth 2 times daily. 250 mg Quantity: 40 capsule Refills: 0 enoxaparin 40 mg/0.4 mL Syrg Commonly known as: Lovenox Inject 0.4 mLs subcutaneously daily for 13 days. 40 mg Quantity: 5.2 mL Refills: 0 ibuprofen 200 mg Tab Commonly known as: Advil Take 1 tablet by mouth every 6 hours as needed for Pain (every 4 to 6 hours as needed for pain). 200 mg Quantity: 30 tablet Refills: 1 Continued medications with new dosing Dose Details gabapentin 300 mg Cap Commonly known as: Neurontin Take 2 capsules by mouth 3 times daily. What changed: ?? additional instructions ?? Another medication with the same name was removed. Continue taking this medication, and follow the directions you see here. 600 mg Quantity: 90 capsule Refills: 12 Continued medications, unchanged Dose Details aspirin EC 81 mg Tbec Take 81 mg by mouth daily. 81 mg Refills: 0 calcium-vitamin D3 600 mg calcium- 400 unit Tab Take by mouth. Refills: 0 cholecalciferol (Vitamin D3) 25 mcg (1,000 unit) Cap Take by mouth. Refills: 0 fluticasone propion-salmeteroL 100-50 mcg/dose Dsdv Commonly known as: ADVAIR Inhale 1 puff into the lungs every 12 hours. 1 puff Refills: 0 fluticasone propionate 110 mcg/actuation Hfaa Commonly known as: Flovent HFA Inhale into the lungs. Refills: 0 folic acid 400 mcg Tab Commonly known as: Folvite Take 400 mcg by mouth daily. 400 mcg Refills: 0 freestyle lite strips Strp USE TO TEST BLOOD GLUCOSE ONCE DAILY Generic drug: blood sugar diagnostic strips Refills: 0 Levemir FlexTouch U-100 Insuln 100 unit/mL (3 mL) Inpn Daily. Generic drug: insulin detemir U-100 Refills: 0 levothyroxine 75 mcg Tab Commonly known as: Synthroid Take 75 mcg by mouth daily. 75 mcg Refills: 0 lovastatin 40 mg Tab Commonly known as: MEVACOR Take 40 mg by mouth every morning. 40 mg Refills: 0 metFORMIN 500 mg Tab Commonly known as: Glucophage Take 1,000 mg by mouth 2 times daily (with meals). 1,000 mg Refills: 0 omeprazole 20 mg Cpdr Commonly known as: PriLOSEC Take by mouth. Refills: 0 PARoxetine 40 mg Tab Commonly known as: Paxil Take 20 mg by mouth every morning. 20 mg Refills: 0 SLOW-MAG ORAL Take by mouth. Refills: 0 TRAMADOL ORAL Take 50 mg by mouth every morning. Takes at bedtime if needed. 50 mg Refills: 0 STOPPED Medications diclofenac 1 % Gel Commonly known as: Voltaren lansoprazole 30 mg Cpdr Commonly known as: PREVACID levETIRAcetam 500 mg Tab Commonly known as: Keppra Smoking Status at Discharge: Social History Tobacco Use Smoking Status Never Smoker Smokeless Tobacco Never Used Instructions Given to Patient at Discharge: Patient Instructions PATIENT DISCHARGE INSTRUCTIONS-- Vulvar Surgery Gynecologic Oncology phone number: [phone] (Nurse ext 4 then 4; appointment ext 1 then 4). After hours and on weekends please call hospital interlocking machine operator at [phone] and ask for Gynecologic Oncologist scrap iron loader. Call your doctor if you develop: --A fever over 101 degrees --Severe pain --Increasing pain, redness, or discharge at your incision -VNA for assistance with drain and incision care -Follow-up with Dr. Anderson on 11/24/21 at 10:00AM; 12/01/21 at 9:00AM; 12/08/21 at 11:00AM -Please continue on enoxaparin (Lovenox) for 2 weeks after surgery to prevent blood clots -Please continue cephalexin (Keflex) 250mg twice a day while your drains are in place to prevent infection Activity Restrictions and Hygiene For the first several days after your surgery it is best to avoid putting direct pressure on the stitches. This means avoid the sitting position. Lying down, on your back, sides, or even stomach, or reclining, such as in a La-Z boy recliner, with your back part way down and your legs up, will help keep the pressure of your body???s weight off the sutured area. This will have two benefits - less pain and swelling, and a lower likelihood of popping or tearing your stitches. Limited walking is fine, but most of your time at home for the first 7-14 days should be either spent lying down or reclining, not sitting. Squatting, and other activities that put a lot of strain on your stitches should be particularly avoided. Great care must be taken to avoid the sutures pulling through. That being said, being overly sedentary can be dangerous. You should gently walk every 1-2 hours around the houseduring the day for the first few weeks. Infection can be a problem because of the large number of bacteria that everyone has in the genitalarea. Good hygiene is especially important after surgery to prevent an infection from setting in. Use the rinse bottle (oliverio-bottle) each time you use the restroom and pat yourself gently dry with a soft towel or tissue. Patting is less painful than rubbing or wiping and less likely to hurt your incision. Shower at least once a day and rinse the vulvar area with warm soapy water (no baths/hot tubs/swimming). Do not scrub this area as that could disrupt the stitches. You may use a hand held shower sprayer to rinse the area. After the vulvar area is patted dry, a generous amount of bacitracin ointment should be applied over the incision. Please do NOT use bacitracin on the inguinal areas (where the lymph nodes were removed). - Fluff Kerlix (gauze) and place in mesh panties to absorb discharge and use ice frequently for swelling and pain control, especially in the first 1-2 days. Be sure to keep this area as dry and cleanas possible. Please empty drain(s) at least daily and/or when they are half full and document daily output in log. Comfort Measures Most patients prefer to wear loose-fitting clothing during the healing phase. Avoid tight, occlusive pants that may chafe. Robes or skirts, without underwear, are fine around the house. When to Call It is normal to have a edlbul-wv-xqpnerxz amount of discharge after vulvar surgery. This can range in color from yellow to blood tinged. On days of high activity, you may have bright red spotting. This is OK. What is NOT normal is heaving bleeding, or discharge with foul odor, especially if it is associated with increasing pain, redness, or fever. These symptoms should be reported immediately. Glucose Control Please check your glucose (blood sugar) a few times a day at home and keep a log. Bring that log when you follow-up with your Primary Care Provider. If your fasting glucose is consistently over 140 and/or your post-prandial glucose if consistently over 180 please call your Primary Care Provider to discuss better glucose management. If your glucose is below 70 please drink 4-6 oz fruit juice or soda (regular, not diet) and recheck in 15 minutes. If still low repeat 4-6oz juice/soda and call [facility] Care Provider. Pain Control: For your post-operative pain please use ibuprofen. Your goal is to be able to take several short walks every day (increase the duration each day) and to be able to sleep at night. 1. Please use ibuprofen (Advil/Motrin) 200mg every 4-6 hours around the clock for the next 5-7 days. After that, use as needed. General Instructions None Future Appointments and Orders Future Appointments and Orders Future Appointments Provider Department Dept Phone 11/24/2021 10:00 AM Miladys Anderson MD Gynecology Oncology at [facility] Arrive at: Lubrication Servicer Area [phone] 12/01/2021 9:00 AM Miladys Anderson MD Gynecology Oncology at [facility] Arrive at: Lubrication Servicer Area [phone] 12/08/2021 11:00 AM Miladys Anderson MD Gynecology Oncology at [facility] Arrive at: Lubrication Servicer Area [phone] Future Orders Complete By Expires Discontinue IV or Saline Lock [SZR404 Custom] As directed Process Instructions: Scheduling Instructions: Comments: IV or saline lock when patient discharged. Questions: Referral to Home Health [REF34 Custom] As directed Process Instructions: If no progress note charted, please enter Clinical details in comments. Scheduling Instructions: Comments: Please evaluate Shereen Vega for admission to Home Health. [address] [facility] [address] [facility] [address] Phone Number: [phone] (home) Date of : 1950 Inpatient DOCUMENTATION FOR VNA SERVICES (INCLUDING THOSE PATIENTS WITH MEDICARE COVERAGE REQUIRINGHOME VNA SERVICES AND/OR HOSPICE SERVICES) PATIENT'S LOCATION: Shereen Vega [address] [facility] [address] [facility] [address] [phone] (home) Cell: Telephone Information: Radio Talk Show Host's Name: self In discussion with the attending physician, it is certified that this patient is under their care and that they, or a Nurse Practitioner,Clinical Nurse specialist or Physician Poultry Cleaner who is working directly with them, had a face to face encounter that meets the physician face to face encounter requirements with this patient on 11/16/2021. The encounter with the patient was in whole, or in part, for the following medical condition, whichis the primary reason for home health care services: vulvar incision check, right groin drain care In discussion with the provider, it is certified that, based on their findings, the following services are medically necessary for home health services. To provide the following care/treatments with the clinical findings supporting the need for services as follows: HOME CARE ORDERS: RN ORDERS:Assess wound or incision, vital signs, cardiopulmonary status, nutrition, hydration, elimination, meds effectiveness and management; reinforce education re health issues HOME HEALTH CARE AGENCY: [facility] [address] [place] [id number] Start of care: 24-48hrs after discharge FOR MEDICARE ONLY: In discussion with the attending physician, it is certified that the clinical findings support thatthis patient is homebound because absences from home require considerable and taxing effort due to:Patient is unable to leave home without assistance and ambulation is severely limited by pain, decreased strength and/or endurance. Please note that any additional orders needs or changes will need to be obtained from this patient's PCP: Maricarmen Galvan APRN [address] / [place] [address] All VNA agencies which cover the area of patient's residence have been reviewed, either verbally kimberli writing, and patient/family have chosen the home health care agency noted Questions: Disciplines Requested: Nursing Discharge References/Attachments None Provider Contact Information: Maricarmen Galvan APRN [phone] documented in this encounter Discharge Instructions * Patient Instructions* Carlos A Strauss MD - 11/14/2021 1:00 PM EDT PATIENT DISCHARGE INSTRUCTIONS-- Vulvar Surgery Gynecologic Oncology phone number: [phone] (Nurse ext 4 then 4; appointment ext 1 then 4). After hours and on weekends please call hospital interlocking machine operator at [phone] and ask for Gynecologic Oncologist scrap iron loader. Call your doctor if you develop: --A fever over 101 degrees --Severe pain --Increasing pain, redness, or discharge at your incision -VNA for assistance with drain and incision care -Follow-up with Dr. Anderson on 11/24/21 at 10:00AM; 12/01/21 at 9:00AM; 12/08/21 at 11:00AM -Please continue on enoxaparin (Lovenox) for 2 weeks after surgery to prevent blood clots -Please continue cephalexin (Keflex) 250mg twice a day while your drains are in place to prevent infection Activity Restrictions and Hygiene For the first several days after your surgery it is best to avoid putting direct pressure on the stitches. This means avoid the sitting position. Lying down, on your back, sides, or even stomach, or reclining, such as in a La-Z boy recliner, with your back part way down and your legs up, will help keep the pressure of your body???s weight off the sutured area. This will have two benefits - less pa in and swelling, and a lower likelihood of popping or tearing your stitches. Limited walking is fine, but most of your time at home for the first 7-14 days should be either spent lying down or reclining, not sitting. Squatting, and other activities that put a lot of strain on your stitches should be particularly avoided. Great care must be taken to avoid the sutures pulling through. That being said, being overly sedentary can be dangerous. You should gently walk every 1-2 hours around the houseduring the day for the first few weeks. Infection can be a problem because of the large number of bacteria that everyone has in the genitalarea. Good hygiene is especially important after surgery to prevent an infection from setting in. Use the rinse bottle (oliverio-bottle) each time you use the restroom and pat yourself gently dry with a soft towel or tissue. Patting is less painful than rubbing or wiping and less likely to hurt your incision. Shower at least once a day and rinse the vulvar area with warm soapy water (no baths/hot tubs/swimming). Do not scrub this area as that could disrupt the stitches. You may use a hand held shower sprayer to rinse the area. After the vulvar area is patted dry, a generous amount of bacitracin ointment should be applied over the incision. Please do NOT use bacitracin on the inguinal areas (where the lymph nodes were removed). - Fluff Kerlix (gauze) and place in mesh panties to absorb discharge and use ice frequently for swelling and pain control, especially in the first 1-2 days. Be sure to keep this area as dry and cleanas possible. Please empty drain(s) at least daily and/or when they are half full and document daily output in log. Comfort Measures Most patients prefer to wear loose-fitting clothing during the healing phase. Avoid tight, occlusive pants that may chafe. Robes or skirts, without underwear, are fine around the house. When to Call It is normal to have a toxuud-yc-negdulio amount of discharge after vulvar surgery. This can range in color from yellow to blood tinged. On days of high activity, you may have bright red spotting. This is OK. What is NOT normal is heaving bleeding, or discharge with foul odor, especially if it is associated with increasing pain, redness, or fever. These symptoms should be reported immediately. Glucose Control Please check your glucose (blood sugar) a few times a day at home and keep a log. Bring that log when you follow-up with your Primary Care Provider. If your fasting glucose is consistently over 140 and/or your post-prandial glucose if consistently over 180 please call your Primary Care Provider to discuss better glucose management. If your glucose is below 70 please drink 4-6 oz fruit juice or soda (regular, not diet) and recheck in 15 minutes. If still low repeat 4-6oz juice/soda and call yourPrimary Care Provider. Pain Control: For your post-operative pain please use ibuprofen. Your goal is to be able to take several short walks every day (increase the duration each day) and to be able to sleep at night. Please use ibuprofen (Advil/Motrin) 200mg every 4-6 hours around the clock for the next 5-7 days. After that, use as needed. documented in this encounter Medications at Time [...] for pain). 30 tablet 1 11/16/2021 09/24/2022 enoxaparin (Lovenox) 40 mg/0.4 mL Syringe Inject 0.4 mLs subcutaneously daily for 13 days. 5.2 mL 11/16/2021 11/17/2021 omeprazole (PriLOSEC) 20 mg Capsule, Delayed Release(E.C.) Take by mouth. 06/22/2019 09/24/2022 folic acid (FOLVITE) 400 mcg Tablet Take 400 mcg by mouth daily. 09/24/2022 TRAMADOL HCL (TRAMADOL ORAL) Take 50 mg by mouth every morning. Takes at bedtime if needed. 02/04/2023 PARoxetine (PAXIL) 40 mg tablet Take 20 mg by mouth every morning. 02/04/2023 documented as of this encounter Progress Notes * Brooklyn Sales RN - 11/16/2021 2:06 PM EDT Shereen Vega discharged per provider order to home w/VNA services via car, ride with spouse.All IV???s removed. Discharge instructions reviewed with patient and spouse. All questions or concerns answered at this time. DC instructions for emptying HAILE drain and administering Lovenox was givento patient and spouse. Patient encouraged to call with any further questions or concerns. Copy of After Visit Summary given to patient at time of discharge. All personal belongings returned to patient. Patient assisted to personal vehicle via staff member and wheelchair. Brooklyn Sales RN, 11/16/2021 * Asiya Boyle RN - 11/16/2021 6:51 AM EDT Illness Severity [x] Stable [] Watcher [] Unstable Patient Summary Reason for admission: Radical vulvectomy with SLN dissection Relevant PMH: Vulvar Cancer, DM2, HLD, Anxiety, Hypothyroidism, walks with cane Significant 24 hour events: 11/15 AM: [facility] Pt arrived to unit around 1430. VSS onRA. Endorsing up to 5/10 incisional pain in R side groin/abdomen, scheduled meds given with good effect. Davis backfilled with 250ml and removed. Pt up to BSC, 175ml clear output. MD notified. Pt back to bed and resting between nursing care. 11/15 PM: OOB to BSC w/walker and 1 assist. Dressing changed x 2 @ vaginal incision (bacitracin, small ice pack, peach pad, mesh panties). R HAILE drain draining sanguinous fluid - 30 ml total overnight.Patient denies pain, cont's scheduled Tylenol as ordered. Mag 0.63 from 11/15, Mag 2 gms IV given once per MD orders. Baseline Weight: 52.6 kg Action List Pain management Encourage ambulation Monitor HAILE drain site/drainage Monitor vaginal incision/swelling Discharge Plan: D/C with HAILE in place PO Keflex Lovenox SQ teaching w/ at bedside Home health nurse * Lurdes Zurita MD - 11/16/2021 5:34 AM EDT Gynecologic Oncology Postoperative Progress Note ID: Shereen Vega is an 71 y.o. woman with PMHx of T2DM, HLD, hypothyroidism, ?HTN who is post operative day #2 s/p partial radical right vulvectomy and right SLND for vulvar SCC. Interval Events: -[facility] -Passed backfill yesterday -Transitioned from IV pain medication to entirely oral regimen without issue Subjective: Shereen Vega is doing well. She was able to sleep overnight. She notes some pain at the siteof her incisions, but feels that it is tolerable and declines any pain medications at this time. She has been able to get up with assistance in her room and ambulate, but only within her room. She tolerated chicken pot pie for dinner last night. She denies any pain or burning with urination. ROS: in addition to above, denies fever, chills, leg pain Objective: Last value Range last 24 hrs Temperature Temp: 37.2 ??C (99 ??F) Temp: [36.7 ??C (98.1 ??F)-37.3 ??C (99.1 ??F)] Heart Rate Heart Rate: 90 Heart Rate: [85-94] Blood Pressure BP: 100/55 BP: (97-125)/(53-68) Respiratory Rate Resp: 20 Resp: [16-21] SpO2 SpO2: 94 % SpO2: [90 %-96 %] Art BP BP (Arterial Line): -- I/O last 3 completed shifts: In: 4478.3 [P.O.:760; I.V.:3168.3; Other:250; IV Piggyback:300] Out: 4510 [Urine:4300; Other:160; Blood:50] I/O this shift: In: 253 [I.V.:5; IV Piggyback:248] Out: 405 [Urine:375; Other:30] UOP: One recorded void overnight; 375mL over the last 12 hours. Drain output: 30mL Physical Exam Gen: sleeping upon entry, easily wakes Cardio: RRR, no murmurs appreciated Pulm: CTAB, no wheezes or crackles appreciated Abd: soft, nondistended, nontender Incision: right groin incision covered with overlying dressing, C/D/I, right groin drain in place and clipped to gown with very scant serosanguinous fluid; minimal edema surrounding incision. Ext: warm, well-perfused, no edema bilaterally, SCDs in place and running. Cap refill normal : Ice pack in place; minimal edema Laboratory (Last 24 Hours): No new labs overnight Last 3 wbc, hgb, hct plt Recent Labs 11/14/21203410/01/21 17009/11/21 0937 WBC 8.0 5.8 6.1 HGB 11.1* 13.1 12.2 HCT 33.0* 38.5 36.9 PLATELET 81* 96* 112* Last 3 Lytes Recent Labs 11/15/21 0502 10/01/21 1707 09/11/21 0937 NA 139 142 141 K 3.8 4.1 4.2 CL 107 105 104 CO2 24 28 27 BUN 9 12 16 CREATININE 0.80 0.95 1.17 Last 3 LFTs Recent Labs 09/11/21 0937 03/12/21 0845 AST 25 19 ALT 12 13 ALKPHOS 64 67 BILITOT 0.5 0.4 Assessment and Plan: Shereen Vega is an 71 y.o. woman s/p above procedure. Post-operative course was complicated by now-resolved hypotension requiring additional support with phenylephrine in immediate postoperative setting. Patient transitioned to 1W without issue yesterday afternoon. Please see systems-based assessment below. Pain Control: Adequate pain control; Ordered for Tylenol, ibuprofen IV, and oxycodone. Patient onlytaking Tylenol. Ordered for home gabapentin -- ordered for home gabapentin Cardiac/Heme: Resolved hypotension without any concern for acute blood loss anemia, baseline BPs [id number]/[id number], possibly 2/2 recovery from anesthesia. Incisions remain clean, dry intact without evidence of bleeding. Blood pressures much improved yesterday and pt transferred to floor without issue. -- Hgb 11.1 from 11/14, no concerns for bleed -- h/o HTN per EMR review, however not currently on any antihypertensives. Holding home lovastatin Pulmonary: Adequate O2 sats on RA. -- wean to maintain saturation >92%, supplemental O2 PRN -- encourage incentive spirometry. Gastrointestinal: Tolerating PO diet without N/V. -- Regular diet -- Zofran PRN for nausea. -- Pericolace BID and Miralax PRN for constipation. Genitourinary: One 375mL void overnight; passed backfill without issue -- strict I/Os. Fluid/ Electrolytes: Fluids now off as pt tolerating regular diet -- Magnesium repleted ID: Received Ancef preoperatively, continued post-operatively x 24 hours. Will transition to Keflexto. Afebrile. -- no current concerns -- will discharge on PO Keflex 250mg BID while drains are still in place Endocrine: -- hypothyroidism: ordered for home levothyroxine (75mcg) -- T2DM: ordered for home metformin. Ordered for FS QID, sliding scale. Takes 16 U Levemir daily athome. Will restart home Levemir today as patient now tolerating regular diet. Psychiatry: -- ordered for home paroxetine Gynecology: s/p above procedure for vulvar squamous cell carcinoma. -- Kerlex fluff and ice packs to vulvar incision, bacitracin ointment on Kerlex for wound care -- Postoperative follow-up with Dr. Anderson scheduled for 11/24/2021 at 10am -- Will dc with right groin drain in place, will provide drain log and teaching Prophylaxis: Received 5000u subq Heparin preoperatively. -- lovenox 40mg sq daily, plan to continue upon discharge (sent to [facility]) -- incentive spirometry. -- encourage ambulation. -- SCDs. Disposition: --Continues to require inpatient hospitalization, anticipate dc on POD#2. Code Status: Full Code To be discussed with Dr. Deluna, attending Gynecologic Oncologist. Lurdes Zurita MD PGY-3 Obstetrics and Gynecology 11/16/2021 Associated attestation - Zulma Deluna MD - 11/17/2021 9:17 AM EDT Patient seen and examined with the resident. I agree with their assessment and plan with the following additions: Feeling well, ready for discharge. She is awaiting drain teaching. * Gabriela Coker RN - 11/15/2021 6:00 PM EDT Illness Severity [x] Stable [] Watcher [] Unstable Patient Summary Reason for admission: Radical vulvectomy with SLN dissection Relevant PMH: Vulvar Cancer, DM2, HLD, Anxiety, Hypothyroidism, walks with cane Significant 24 hour events: 11/15 AM: Received report from ISCU RN at approximately 1245. Pt arrived to unit around 1430. VSS onRA. Endorsing up to 5/10 incisional pain in R side groin/abdomen, scheduled meds given with good effect. Davis backfilled with 250ml and removed. Pt up to BSC, 175ml clear output. notified. Pt later w/ another 100ml urine output. HAILE drain in place w/ sanguinous output. Pt back to bed and restingbetween nursing care. Action List Pain management Encourage ambulation Monitor urine output post-voiding trial * Miladys Anderson MD - 11/15/2021 5:44 AM EDT Images from the original note were not included. Gynecologic Oncology Postoperative Progress Note ID: Shereen Vega is an 71 y.o. woman with PMHx of T2DM, HLD, hypothyroidism, ?HTN who is post operative day #1 s/p partial radical right vulvectomy and right SLND for vulvar SCC. Interval Events: -Per anesthesia, jaimie gtt initiated at 6:40pm for post-op hypotension, downtitrated to 5mcg/min and discontined, off pressors since ~11:30 -UOP adequate at ~100 mL/hr, asymptomatic, and exam reassuring Subjective: Shereen Vega is doing ok. She was able to sleep overnight. She denies pain at any of her incisions and has not needed any additional pain medications other than Tylenol. No lightheadedness, dizziness, chest pain, or SOB. She is bothered only by the Davis catheter which remains in place. She was able to eat a pudding and has had three cups of water and tatum mal without any nausea/vomiting. No ROS: in addition to above, denies fever, chills, leg pain Objective: Last value Range last 24 hrs Temperature Temp: 36.8 ??C (98.2 ??F) Temp: [36.3 ??C (97.3 ??F)-37 ??C (98.6 ??F)] Heart Rate Heart Rate: 85 Heart Rate: [82-97] Blood Pressure BP: 106/60 BP: (65-143)/(45-81) Respiratory Rate Resp: 16 Resp: [12-26] SpO2 SpO2: 98 % SpO2: [87 %-99 %] Art BP BP (Arterial Line): -- I/O last 3 completed shifts: In: 800 [I.V.:800] Out: 650 [Urine:600; Blood:50] I/O this shift: In: 1320 [P.O.:120; I.V.:1000; IV Piggyback:200] Out: 1335 [Urine:1275; Other:60] UOP: 106 mL/hr over the last 12 recorded hours Net since admission: +885 mL Physical Exam Gen: resting in bed comfortably ,sitting up Cardio: RRR, no MRG Pulm: clear to auscultation b/l, no wheezes or crackles Abd: soft, nondistended, nontender Incision: right groin incision covered with overlying dressing, C/D/I, right groin drain in place and clipped to gown with ~20 cc of serosang fluid Ext: warm, well-perfused, no edema bilaterally, SCDs in place and running. Cap refill normal : Davis catheter in place draining clear blue-dye stained urine. Vaginal bleeding noted to be minimal on oliverio-pad. Ice pack and Laboratory (Last 24 Hours): Latest Reference Range & Units 11/14/21 20:35 WBC 4.0 - 9.5 x10(3)/mcL 8.0 RBC 4.00 - 5.21 x10(6)/mcL 3.64 (L) Hemoglobin 11.7 - 15.5 g/dL 11.1 (L) Hematocrit 35.7 - 45.8 % 33.0 (L) MCV 82.6 - 94.4 fL 90.7 MCH 27.1 - 32.0 pg 30.5 MCHC 31.7 - 35.0 g/dL 33.6 RDWSD 37.0 - 46.0 fL 50.4 (H) RDWCV 11.5 - 14.1 % 15.2 (H) Platelets 145 - 357 x10(3)/mcL 81 (L) MPV 7.6 - 12.9 fL 9.8 nRBC % Auto % 0.0 nRBC Abs Auto 0.000 - 0.000 x10(3)/mcL 0.000 Neutr Abs (ANC) 1.70 - 6.10 x10(3)/mcL 5.73 Assessment and Plan: Shereen Vega is an 71 y.o. woman s/p above procedure. Post-operative course was complicated by now-resolved hypotension requiring additional support with phenylephrine in immediate postoperative setting. She has been off pressors for ~6 hours and has been in minimal pain. Physical exam continues to be reassuring against acute blood loss anemia, including STAT post-op CBC with Hgb of 11.1 from 13.1 one month ago. Hypotension resolved with time as well as fluid resustication, with 250mL bolus x2. Sheremains is otherwise stable, mentating appropriately, no signs of acute pathological process. Critical Care fellow evaluated patient at bedside with [employer] Associate Onc team Drs. Strauss and Charity, felt hypotension was most likely vasoplegia due to medication administration in OR. She was observed in ISCU after pressor administration and will be transferred to floor status this AM. Please see systems-based assessment below. Pain Control: Adequate pain control; Tylenol, ibuprofen IV Dilaudid PRN, ordered for home gabapentin -- Transition to PO oxycodone today -- transition to PO pain meds when able to take adequate PO -- ordered for home gabapentin Cardiac/Heme: Resolved hypotension without any concern for acute blood loss anemia, baseline BPs [id number], possibly 2/2 recovery from anesthesia. Incisions remain clean, dry intact without evidence of bleeding. Suspected this is vasoplegia in setting of anesthetic administration and under resucitaiton due to prolonged period of NPO and minimal IVF intraoperatively. S/p 250 mL bolus x2, now maintaining MAPs off pressors over 6 hours without issue. Will transfer to floor. -- STAT post-op CBC Hgb of 11, from 13 pre-operatively one month ago. AM CBC pending -- h/o HTN per EMR review, however not currently on any antihypertensives. Holding home lovastatin Pulmonary: Adequate O2 sats on RA. -- wean to maintain saturation >92%, supplemental O2 PRN -- encourage incentive spirometry. Gastrointestinal: Tolerating PO diet without N/V. -- advance diet as tolerated, regular diet ordered. -- Zofran PRN for nausea. -- Pericolace BID and Miralax PRN for constipation. Genitourinary: Adequate UOP, draining clear blue-dye tinged urine. -- strict I/Os. -- discontinue davis catheter when ambulatory, plan for backfill voiding trial this AM once able tostand Fluid/ Electrolytes: -- BMP, Mag, Phos pending for AM. -- mIVF LR at 100cc/hour. S/p now total 500mL bolus -- discontinue intravenous fluid when taking adequate PO. ID: Received Ancef preoperatively, will continue 2g q8hrs and transition to Keflex. Afebrile. -- no current concerns -- Continue IV Ancef x ~24-48 hrs postoperatively then transition to Keflex -- will discharge on PO Keflex 500mg BID while drains are still in place Endocrine: -- hypothyroidism: ordered for home levothyroxine (75mcg) -- T2DM: ordered for home metformin. Ordered for FS QID, sliding scale. Takes 16 U Levemir daily athome, will hold at this time as has not been eating x24+ hours but restart once able to eat breakfast. Psychiatry: -- ordered for home paroxetine Gynecology: s/p above procedure for vulvar squamous cell carcinoma. -- Kerlex fluff and ice packs to vulvar incision, bacitracin ointment on Kerlex for wound care -- Postoperative follow-up with Dr. Anderson scheduled for 11/24/2021 at 10am -- Will dc with right groin drain in place, will provide drain log and teaching Prophylaxis: Received 5000u subq Heparin preoperatively. -- lovenox 40mg sq daily, plan to continue upon discharge (sent to [facility]) -- incentive spirometry. -- encourage ambulation. -- SCDs. Disposition: --Continues to require inpatient hospitalization, anticipate dc on POD#1. Will transfer to step down unit per Critical Care recommendations (see below) Code Status: Full Code Discussed with Dr. Anderson, attending Gynecologic Oncologist. Meredith Nash MD PGY-4 Obstetrics and Gynecology 11/15/2021 I have reviewed and concur with the resident's note, exam, and assessment. The patient was seen andexamined by Dr. Anderson and all pertinent portions of the history, exam and decision-making for this patient encounter were performed by Dr Anderson. Patient hungry, tolerated breakfast and comfortable withpain medications. Davis and right groin HAILE in place. right groin minimal erythema HAILE sero-sanguinous drainage Vulva intact no bleeding DATA: cbc hgb 11.1 platelets 81K, lytes normal Imp: stabel post op, hypotension overnight necessitating step down unit for observation, agree transfer to floor and davis out Advance diet, d/c planning for tomorrow if patient able to void and comfortable with oral pain medications Miladys Anderson MD * Carlos A Strauss MD - 11/14/2021 8:17 PM EDT Gynecologic Oncology Post operative Progress Note ID: Shereen Vega is an 71 y.o. woman with PMHx of T2DM, HLD, hypothyroidism, ?HTN who is post operative day #0 s/p partial radical right vulvectomy and right SLND for vulvar SCC. Intraoperative Events: -EBL 50mL -Findings: EUA: right vulvar cancer 2 x 1.5 cm lateral lesion involving right labia majora, mobile with associated leukoplakia up to clitoral veloz and inferiorly to edge labia majora, cervix in situ and vagina smooth No enlarged lymph node, sentinel lymph node RIGHT identified and negative Interval events: -Per anesthesia, jaimie gtt initiated at 6:40pm for post-op hypotension, now downtitrated to 5mcg/min Subjective: Shereen Vega has no acute complaints at this time. She says she is not currently in pain. Nolightheadedness, dizziness, chest pain, or SOB. Has not gotten OOB yet. Davis catheter remains in place. Ate a pudding and has had half a cup of water without any nausea/vomiting. ROS: in addition to above, denies fever, chills, leg pain Objective: Last value Range last 24 hrs Temperature Temp: 36.6 ??C (97.9 ??F) Temp: [36.3 ??C (97.3 ??F)-36.6 ??C (97.9 ??F)] Heart Rate Heart Rate: 89 Heart Rate: [82-96] Blood Pressure BP: (!) 87/55 BP: (77-143)/(47-81) Respiratory Rate Resp: 19 Resp: [13-19] SpO2 SpO2: 97 % SpO2: [92 %-99 %] Art BP BP (Arterial Line): -- I/O last 3 completed shifts: In: 800 [I.V.:800] Out: 650 [Urine:600; Blood:50] I/O this shift: In: 250 [I.V.:250] Out: 500 [Urine:500] UOP: 500cc charted between 1900 and 1999, 250mL/hr Net since admission: -100mL Physical Exam Gen: resting in bed comfortably, surrounded by blankets Cardio: RRR, no MRG Pulm: clear to auscultation b/l, no wheezes or crackles Abd: soft, nondistended, nontender Incision: right groin incision covered with overlying dressing, c/d/i, right groin drain in place and clipped to gown draining ~30-40cc of serosang fluid Ext: warm, well-perfused, no edema bilaterally, SCDs in place and running. Cap refill with 1 seconddelay : Davis catheter in place draining clear yellow urine. Vaginal bleeding noted to be minimal on oliverio-pad Laboratory (Last 24 Hours): STAT CBC ordered given hypotension: Latest Reference Range & Units 11/14/21 20:35 WBC 4.0 - 9.5 x10(3)/mcL 8.0 RBC 4.00 - 5.21 x10(6)/mcL 3.64 (L) Hemoglobin 11.7 - 15.5 g/dL 11.1 (L) Hematocrit 35.7 - 45.8 % 33.0 (L) MCV 82.6 - 94.4 fL 90.7 MCH 27.1 - 32.0 pg 30.5 MCHC 31.7 - 35.0 g/dL 33.6 RDWSD 37.0 - 46.0 fL 50.4 (H) RDWCV 11.5 - 14.1 % 15.2 (H) Platelets 145 - 357 x10(3)/mcL 81 (L) MPV 7.6 - 12.9 fL 9.8 nRBC % Auto % 0.0 nRBC Abs Auto 0.000 - 0.000 x10(3)/mcL 0.000 Neutr Abs (ANC) 1.70 - 6.10 x10(3)/mcL 5.73 (L): Data is abnormally low (H): Data is abnormally high Assessment and Plan: Shereen Vega is an 71 y.o. woman s/p above procedure. Post-operative course c/b hypotension requiring additional support with Jaimie-Synephrine. Physical exam reassuring against acute blood loss anemia, including STAT post-op CBC with Hgb of 11.1 from 13.1 one month ago. Hypotension most likely d/t fluid under-resustication, as patient was last case of the day and had been kept NPO up until that point, with 600mL fluids documented during the case and mIVF administered until now. Will give 250mL bolus x2 in attempt to wean down Jaimie-Synephrine. Pt is otherwise stable, mentating appropriately, no signs of acute pathological process. Will contact Critical Care Fellow for additional evaluation and recommendations. Blood pressures documented in clinic additionally reviewed, ranging from 100s-120s/50s-60s. Please see systems-based assessment below. Pain Control: Adequate pain control; Tylenol, IV Dilaudid PRN -- will hold ibuprofen for now given hypotension -- transition to PO pain meds when able to take adequate PO -- ordered for home gabapentin Cardiac/Heme: Currently hypotensive without any concern for acute blood loss anemia, baseline BPs of 100s-120s/50s-60s, possibly 2/2 recovery from anesthesia -- STAT post-op CBC Hgb of 11, from 13 pre-operatively one month ago -- h/o HTN per EMR review, however not currently on any antihypertensives. Holding home lovastatin Pulmonary: Adequate O2 sats on RA -- wean to maintain saturation >92%, supplemental O2 PRN -- encourage incentive spirometry. Gastrointestinal: Tolerating PO diet without N/V -- advance diet as tolerated, regular diet ordered. -- Zofran PRN for nausea. -- Pericolace BID and Miralax PRN for constipation. Genitourinary: Adequate UOP, draining clear yellow urine. -- strict I/Os. -- discontinue davis catheter when ambulatory, plan for backfill voiding trial tomorrow AM Fluid/ Electrolytes: -- BMP, Mag, Phos pending for AM. -- mIVF LR at 100cc/hour. S/p now total 500mL bolus -- discontinue intravenous fluid when taking adequate PO. ID: Received Ancef preoperatively, will continue 2g q8hrs and transition to Keflex . Afebrile. -- no current concerns -- will discharge on PO Keflex 500mg BID while drains are still in place Endocrine: -- hypothyroidism: ordered for home levothyroxine (75mcg) -- T2DM: ordered for home metformin. 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 -- Postoperative follow-up with Dr. Anderson scheduled for 11/24/2021 at 10am -- Will dc with right groin drain in place, will provide drain log and teaching Prophylaxis: Received 5000u subq Heparin preoperatively. -- lovenox 40mg sq daily, plan to transition to [facility] upon discharge (sent to [facility]) -- incentive spirometry. -- encourage ambulation. -- SCDs. Disposition: --Continues to require inpatient hospitalization, anticipate dc on POD#1. Will transfer to step down unit per Critical Care recommendations (see below) Code Status: Full Code 9:45PM UPDATE: Patient evaluated at bedside with Critical Care fellow Justin Alanismarlen, who agrees she has been adequately fluid resuscitated, no acute pathological process given stable CBC post-op, suspect post-operative anesthetic vasoplegia contributing to hypotension. Will place transfer order to step down unit with weaning down Jaimie drip as tolerated. Pt was seen and discussed with Dr. Meredith Nash, PGY-4. Pt to be discussed with Dr. Anderson, attending gynecologic oncologist. Carlos A Strauss MD, PGY2 Obstetrics and Gynecology 11/14/2021 * Simi Johnson RN - 11/14/2021 6:55 PM EDT 18:55 Break coverage * Brooklyn Meraz RN - 11/14/2021 6:12 PM EDT Pt arrived to [facility], placed on monitor and received report. 2030: labs drawn and sent. documented in this encounter H&P Notes * Meredith Nash MD - 11/14/2021 1:29 PM EDT Inpatient Gynecologic Oncology - Admission Interval Note ID: Shereen Vega is a 71 y.o. woman with SCC vulvar cancer who presents for radical vulvectomy, bilateral inguinal sentinel lymph node dissection. I have reviewed the pre-procedure H&P completed by Dr. Miladys Anderson on 10/22/21. (X) Condition unchanged since H&P originally performed. Interval Note: Shereen is doing well today, reports no interval change in her medical history or medications, and is ready to proceed with surgery. She denies fever, cough, shortness of breath, chest pain, nausea, vomiting. Physical Exam: BP 143/81 (BP Location (NBP): Left arm) Pulse 83 Temp 36.3 ??C (97.3 ??F) (Temporal) Resp 16 Ht 153.7 cm (5' 0.51) Wt 52.6 kg (116 lb) SpO2 99% BMI 22.27 kg/m?? General: NAD CV: RRR Pulm: CTAB Abdomen: soft, non-tender Fasting glucose 183 A/P: Shereen Vega is a 71 y.o. woman with SCC vulvar cancer who presents for radical vulvectomy, bilateral sentinel lymph node dissection via inguinal lymphadenectomy. --The risks, benefits and alternatives of the above procedures were reviewed in detail, all of her questions were answered to her satisfaction. Written consent verifed. --We discussed short-term opioid use to manage her post operative pain. I discussed that it is reasonable to use opioids in the correct and recommended way to control pain in the days following her surgery and that she should not need more than a few days total. If her pain is severe, unremitting to the point that she feels she needs additional medication, I suggested she call for further evaluation. We discussed the risks of hyperalgesia, dependence, tolerance to these medications. An opioid risk tool (low risk) was used to assess risk of abuse and dependence. The patient expressed verbal understanding and agreement to proceed. Written consent obtained. --Preop Abx: N/A --VTE ppx: Heparin 5000U SC, SCDs --To OR when ready Discussed with Dr. Anderson, attending Gynecologic Oncologist Meredith Nash MD PGY-4 11/13/2021 documented in this encounter Miscellaneous Notes * Initial Assessments - Elizabeth Bruce RN - 11/15/2021 3:32 PM EDT Office of Care Management Initial Assessment Elizabeth Bruce RN reviewed record and discussed patient with Care Team. Patient is post op day 1 s/p partial radical right vulvectomy and right SLND for vulvar SCC. Patient has a drain. Source of Information: Team, bedside nurse, medical record, and Patient Introduced self/reviewed role; services accepted. Reason for Hospitalization: Radical Vulvectomy Covid Vaccination Status: 1st, 2nd & booster (Moderna x3) Past medical History: Past Medical History: Diagnosis Date ??? 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 Cervical spondylosis 08/18/2011 ??? diabetes 2001 ??? Dysosmia 08/18/2011 ??? Gastroesophageal reflux disease 08/18/2011 ??? Hyperlipidemia 08/18/2011 ??? Hypertension 08/18/2011 ??? Hypothyroidism 08/18/2011 ??? Menopause, premature 08/18/2011 ??? Osteopenia ??? Psoriatic arthritis 08/18/2011 ??? Rheumatoid arthritis(714.0) 2001 ??? Social anxiety disorder 08/18/2011 ??? Transient global amnesia Hospitalizations Within the Past 30 Days: no previous admission in last 30 days Current Decision-Making Capacity: Self If AD's have not been completed the following surrogate would be surrogate decision maker per [place] surrogate decision making law. (Only good for 180 days) Any patient receiving care in [place] must abide by [place] law. The hierarchy for surrogate decision making is: (a) Patient???s spouse, or civil union partner or common law spouse unless there is a divorce proceeding, separation agreement, or restraining order limiting that person???s relationship with the patient. (b) Any adult son or daughter of the patient. (c) Either parent of the patient. (d) Any adult brother or sister of the patient. (e) Any adult grandchild of the patient. (f) Any grandparent of the patient. (g) Any adult aunt, uncle, niece, or nephew of the patient. (h) A close friend of the patient. (i) The agent with financial power of regulatory attorney or a conservator appointed in accordance with RSA 464-A. (j) The guardian of the patient???s estate. Advance Care Planning: Attempt Cardiopulmonary Resuscitation - Inpatient <no information> -Advanced Directive: No, declines Current Coping/Education/Information Needs: good Current Functional Ability: Assistive Equipment, Independent Functional Status Prior to Admission: Independent, Assistive Equipment Prior ADLs & IADLs: Assistance Needed with ADLs & IADLs Cooking / Eating: Family / Friends Provide Meals Cleaning: Assists with Cleaning Laundry: Has Assistance Dressing: Family / Friends do Dressing Home Environment: Others in the home: spouse, child(leonel), adult, pet(s). Current Living Arrangements: home/apartment/condo. Accessibility Concerns:No stairs on outside, lives on first level. Resource / Environmental Concerns: Resource/Environmental Concerns: none Current DME: cane - straight Home Address listed as: [address] [facility] [address] [facility] [address] Social & Family Supports: Extended Emergency Contact Information Primary Emergency Contact: Girish Vega Mobile Relation: Spouse Current Care Provided by: self Provides Primary Care For: no one Caregiver if needed: spouse Quality of Family relationships: helpful, involved Community Resources being provided currently: homecare agency Behavioral Health History: Denies Substance Use/Abuse confirmed: Social History Tobacco Use Smoking Status Never Smoker Smokeless Tobacco Never Used In the past year have you used an illegal drug or used a prescription medication for non-medical reasons?: No 0 No problems reported 1-2 Low level 3-5 Moderate level 6-8 Substantial level 9- 10 Severe level 0 to 7 points: Low risk 8 to 15 points: Medium risk 16 to 19 points: High risk 20 to 40 points: Addiction likely Other Pertinent/Service Specific Information: n/a Health/Prescription Coverage: Primary Insurance: MEDICARE Payor: MEDICARE / Plan: MEDICARE PART A & B / Product Type: *No Product type* / Secondary Insurance: N/A Secondary Insurance? (Only Medicare A&B): No ; Why not?: n.a Prescription Coverage: Yes Preferred Pharmacy: [facility] [address] [place] [address] [address] [facility] [address] [facility] [address] [facility] [place], [place] [address] [facility] [address] [facility] [address] [facility] [address] [facility] Home Delivery - [place] [address] [facility] [address] [facility] [address] [place], [place] - [address] [facility] [address] [facility] [address] [facility] [address] Status: Patient is a : No Primary Care Provider: Maricarmen Galvan, MACHINE SWEEPER BRUSH MAKER [phone] Patient/Caregiver Goals of Treatment: surgery and go home Potential Needs for Transition of Care: home health care Agency Referrals: I have met with the patient to: ?? discuss discharge planning needs. ?? provide the [facility], Office of Care Management letter from the Polysomnography Technologist pertaining to rehabreferrals. ?? provide a letter describing our affiliations within the [facility] and educate about their right to choose where referrals are sent. ?? provide a list of Home Health Agencies / Durable Medical Equipment vendors which serve their preferred geographic area. ?? provided patient with [facility] Star Quality Rating handout. They have requested referrals to: [facility] [address] [place] [address] Note routed to a Bicycle Service Technician who will communicate referrals to facilities and provide any required information. Transportation: no concerns Transportation Anticipated: family or friend will provide Assessment: Patient is admitted to director of business continuity service for surgery Plan: Patient will go home with and assistance from home health when medically ready. A member of the Care Management team will continue to monitor progress, follow for continuity of care and assist with transition of care planning. Elizabeth Bruce RN, BSN Case Management * Plan of Care - Araceli Green RN - 11/15/2021 12:46 PM EDT Report given to Gabriela FERREIRA. Pt assigned to bed [facility], in process of cleaning. Awaiting transport to med/surg unit. * Brief Op Note - Miladys Anderson MD - 11/14/2021 5:29 PM EDT Brief Operative Note Patient Name: Shereen Vega : [id number] MR#: [id number] Case Date: 11/14/2021 Surgeon: Surgeon(s) and Role: * Miladys Anderson MD - Primary * Meredith Nash MD - Resident Preoperative diagnosis: VULVAR CANCER Postoperative diagnosis: VULVAR CANCER Procedure(s) (LRB): @VULVECTOMY, RAD,PARTIAL WITH LYMPHADENECTOMY-ANA (WRVU 21.86) (N/A) INTRAOPERATIVE ID (MAPPING) SENTINEL LYMPH NODE,INCLUDES INJECTION (WRVU 2.5) (N/A) Anesthesia: General Findings: EUA: right vulvar cancer 2 x 1.5 cm lateral lesion involving right labia majora, mobile with associated leukoplakia up to clitoral veloz and inferiorly to edge labia majora, cervix in situ and vagina smooth No enlarged lymph node, sentinel lymph node RIGHT identified and negative Complications: none Intake: Intraprocedure Crystalloid Total Intake lactated ringers infusion 600.00 mL Total Intake 600 mL Output Urine Output 600 mL Blood Loss 50 mL Total Output 650 mL Net Net Volume -50 mL Transfusion No data found in the last 1 encounters. Output: Estimated Blood Loss: * No values recorded between 11/14/2021 2:59 PM and 11/14/2021 5:19 PM * Urine Output:: 600 mL Other Output: (no other output recorded) Drains: Davis Specimens removed during surgery: Order Name Source Comment Collection Info Order Time SPECIMEN TO PATHOLOGY Please perform frozen section VULVAR CANCER Right [place] Lymph Node excision YES, Please perform frozen section No 11/14/2021 3:42 PM Time specimen removed from patient: 3:41 PM Number of tissue samples (in container) 1 Biospecimen to store? No [place] 6 [id number] VULVAR CANCER Right Superficial Inguinal Lymph Node excision No 11/14/2021 3:58 PM Time specimen removed from patient: 3:57 PM Number of tissue samples (in container) 1 Biospecimen to store? No SPECIMEN [place] 6 [id number] 2 bunny ears @ 12 O'clock 1 bunny ear Medial VULVAR CANCER Vulva excision No 11/14/2021 4:53 PM Time specimen removed from patient: 4:39 PM Number of tissue samples (in container) 1 Biospecimen to store? No Disposition: awakened from anesthesia, extubated and taken to the recovery room in a stable condition, having suffered no apparent untoward event. Condition: doing well without problems Attestation: Case Date: 11/14/2021 I was present and I participated during the entire procedure (does not need to include opening and closing). (Please see the Surgical Encounter Summary for any Implant and Specimen details pertinent to this patient.) Surgical Infection Prevention Bundle Used? N/A * Op Note - Miladys Anderson MD - 11/14/2021 2:59 PM EDT [facility] Operative Note Patient Name: Shereen Vega : [id number] MR#: [id number] Case Date: 11/14/2021 Surgeon: Surgeon(s) and Role: * Miladys Anderson MD - Primary * Meredith Nash MD - Resident Preoperative diagnosis: VULVAR CANCER Postoperative diagnosis: VULVAR CANCER Procedure(s) (LRB): @VULVECTOMY, RAD,PARTIAL WITH LYMPHADENECTOMY-ANA (WRVU 21.86) (Right) INTRAOPERATIVE ID (MAPPING) SENTINEL LYMPH NODE,INCLUDES INJECTION (WRVU 2.5) (N/A) Anesthesia: General Estimated Blood Loss: * No values recorded between 11/14/2021 2:59 PM and 11/14/2021 5:19 PM * Specimens removed during surgery: Order Name Source Comment Collection Info Order Time SPECIMEN TO PATHOLOGY Please perform frozen section VULVAR CANCER Right [place] Lymph Node excision YES, Please perform frozen section No 11/14/2021 3:42 PM Time specimen removed from patient: 3:41 PM Number of tissue samples (in container) 1 Biospecimen to store? No [place] 6 [id number] VULVAR CANCER Right Superficial Inguinal Lymph Node excision No 11/14/2021 3:58 PM Time specimen removed from patient: 3:57 PM Number of tissue samples (in container) 1 Biospecimen to store? No SPE[place]IMEN [place] 6 [id number] 2 bunny ears @ 12 O'clock 1 bunny ear Medial VULVAR CANCER Vulva excision No 11/14/2021 4:53 PM Time specimen removed from patient: 4:39 PM Number of tissue samples (in container) 1 Biospecimen to store? No Drains: Drain/Device Site 11/14/21 1614 Right anterior hip collapsible closed device (Active) HAILE drain right groin, Davis Surgical Closure: Primary Closure - skin incision is completely closed without any wires, ko, drains or other devices Disposition: awakened from anesthesia, extubated and taken to the recovery room in a stable condition, having suffered no apparent untoward event. Condition: doing well without problems (Please see the Surgical Encounter Summary for any Implant and Specimen details pertinent to this patient.) HPI/Surgical Indications: 71 year old with vulvar pain and lesion noted on exam. Patient has biopsyconfirming squamous cell carcinoma at least 1.1 mm depth. Patient had imaging noting no obvious abnormal masses or enlarged lymph node. Patient taken for definitive management with partial radical vulvectomy RIGHT and sentinel lymph node assessment. Procedure Description: Patient was taken to the operating room where general anesthesia was administered without issue. SCDs were placed for VTE prophylaxis and the patient was placed in the dorsal lithotomy position. A timeout was performed with all members of the team in agreement. Ancef 2 gm and flagyl 500 mg antibiotics were administered due to some odor from the vulvar cancer. Heparin thromboprophylaxis was given. We started with the inguinal lymph node assessment by infiltrating the right groin 1.5 cm below theskin crease from the anterior superior iliac spine to the pubic tubercle. An incision was carried down through Jennifer's fascia with great care to preserve the skin flap above this inferiorly and superiorly. The incision was then carried down to the inguinal ligament and the lymph node bearing tissue was exposed. At this point, I went below between the legs and infiltrated the lateral aspect of the vulvar cancer with 2 ml lymphazurin superficially in the dermis. I massaged the area for a minute and returned to the right groin where we could clearly track and identify the green lymphatic channels to a medial fatty lymph node. We gently elevated and dissected this tissue free from the underlying pectineus tendon and adductor using cautery and surgical clips and sent it to Pathology for a frozen section. We proceeded to dissect the superficial lymph node bearing tissue as the sentinel tissue felt largely fatty and we were unsure there was a lymph node in the specimen. In a similar fashion, we elevated this tissue off the underlying inguinal ligament using cautery and clips and resected palpable lymph node, not significantly enlarged, and sent these for pathology. The frozen section now returned negative and we concluded the right groin lymph node dissection. The bed of dissection was hemostatic and a HAILE drain was placed into the groin and sutured to the skin. Jennifer's fascia was re approximated and the skin was closed with Monocryl. Attention was then turned to the partial radical vulvectomy to include the entire area of pathologyfrom the clitoral veloz to include the entire right labia majora. The area of excision was instilledwith lidocaine with epi and then outlined with a marking pen. A scalpel was used to incise the epidermis down to the level of the dermis along the perimeter of the outlined area. The incision was extended deeper to the fatty tissue over the pubic ramus under the tumor with a margin measured on 1.5 cm circumferentially. . Once the full specimen was excised, electrocautery was used to achieve adequate hemostasis. The subcutaneous space was reapproximated using interrupted sutures of 2-0 and 3-0 Vicryl. The skin was then reapproximated in a subcuticular fashion using 4-0 Monocryl. The incision was then covered with bacitracin. Patient tolerated the procedure well and was awoken from anesthesia without issue. Counts were correct x2 at case close. Patient taken to recovery room in stable condition. Surgical Infection Prevention Bundle Used? See brief op note Attestation: Case Date: 11/14/2021 I was present and I participated during the entire procedure (does not need to include opening and closing). Miladys Anderson MD 11/14/2021 documented in this encounter Plan of Treatment Upcoming Encounters Date Type Department Care Team (Late st Contact Info) Description 03/01/2024 1:30 PM EST Office Visit Hematology/Oncology at [address] [phone] Imer Baker MD [facility] [place] [address] [facility], [place] [id number] 03/01/2024 2:00 PM EST Infusion Hematology Oncology at [address] [phone] 03/23/2024 11:30 AM EST TH Visit (TeleHealth) [place] [address] Tory Willard [facility] [place] [place] [address] Scheduled Referrals Name Type Priority Associated Diagnoses Orde r Schedule Referral to Home Health Outpatient Referral Routine Vulvar cancer Ordered: 11/16/2021 documented as of this encounter Procedures Procedure Name Priority Date/Time Associated Diagnosis Comments POCT GLUCOSE Routine 11/16/2021 12:26 PM EDT POCT GLUCOSE Routine 11/16/2021 7:55 AM EDT POCT GLUCOSE Routine 11/15/2021 7:38 PM EDT POCT GLUCOSE Routine 11/15/2021 5:44 PM EDT POCT GLUCOSE Routine 11/15/2021 12:29 PM EDT HC PHOSPHORUS, SERUM Routine 11/15/2021 5:02 AM EDT HC MAGNESIUM, SERUM Routine 11/15/2021 5 :02 AM EDT HC VENIPUNCTURE Routine 11/15/2021 5:02 AM EDT POCT GLUCOSE Routine 11/14/2021 11:11 PM EDT HEMOGRAM STAT 11/14/2021 8:35 PM EDT DIFFERENTIAL, AUTOMATED STAT 11/14/2021 8:35 PM EDT HC CBC,PLT & AUTO DIFF STAT 11/14/2021 8:35 PM EDT POCT GLUCOSE Routine 11/14/2021 6:04 PM EDT SPECIMEN TO PATHOLOGY Routine 11/14/2021 4:53 PM EDT SPECIMEN TO PATHOLOGY Routine 11/14/2021 3:58 PM EDT SURGICAL PATHOLOGY REPORT Routine 11/14/2021 3:42 PM EDT SPECIMEN TO PATHOLOGY Routine 11/14/2021 3:42 PM EDT Intraop [place] Lymph Id W/Dye Injection ([id number]) 11/14/2021 2:03 PM EDT VULVAR CANCER Vulva Resect, Rad, Part, Bilat Nodes ([id number]) 11/14/2021 2:03 PM EDT VULVAR CANCER POCT GLUCOSE Routine 11/14/2021 1:20 PM EDT TYPE AND SCREEN VALIDITY STAT 11/14/2021 12:57 PM EDT HC ANTIBODY DETECTION,CAPTURE-R STAT 11/14/2021 12:57 PM EDT ABO/RH TYPING STAT 11/14/2021 12:57 PM EDT ANTIBODY SCREEN STAT 11/14/2021 12:57 PM EDT documented in this encounter Results * POCT Glucose (11/16/2021 12:26 PM EDT) Glucose, POC 189 65 - 199 mg/dL [facility] Comment: Supplemental ranges: <140 mg/dL before meals <180 mg/dL all other times of the day Blood 11/16/2021 12:2 6 PM EDT 11/16/2021 12:26 PM EDT Miladys Anderson MD POINT OF CARE TEST O RDERAANURAG Performing Organization Address [facility] de Phone Number [facility] [place] [address] * (ABNORMAL) POCT Glucose (11/16/2021 7:55 AM EDT) Glucose, POC 222(H) 65 - 199 mg/dL [facility] Comment: Supplemental ranges: <140 mg/dL before meals <180 mg/dL all other times of the day Blood 11/16/2021 7:55 AM EDT 11/16/2021 7:55 AM EDT Miladys Anderson MD POINT OF CARE TEST O MAIA Performing Organization Address [facility] Co de Phone Number [facility] [place] [address] * POCT Glucose (11/15/2021 7:38 PM EDT) Glucose, POC 192 65 - 199 mg/dL [facility] Comment: Supplemental ranges: <140 mg/dL before meals <180 mg/dL all other times of the day Blood 11/15/2021 7:38 PM EDT 11/15/2021 7:38 PM EDT Miladys Anderson MD POINT OF CARE TEST O RDERAANURAG Performing Organization Address [facility] Co de Phone Number [facility] [place] [address] * (ABNORMAL) POCT Glucose (11/15/2021 5:44 PM EDT) Glucose, POC 227(H) 65 - 199 mg/dL [facility] Comment: Supplemental ranges: <140 mg/dL before meals <180 mg/dL all other times of the day Blood 11/15/2021 5:44 PM EDT 11/15/2021 5:44 PM EDT Miladys Anderson MD POINT OF CARE TEST O RDERAANURAG Performing Organization Address [facility] Co de Phone Number [facility] [place] [address] * (ABNORMAL) POCT Glucose (11/15/2021 12:29 PM EDT) Glucose, POC 209(H) 65 - 199 mg/dL [facility] Comment: Supplemental ranges: <140 mg/dL before meals <180 mg/dL all other times of the day Blood 11/15/2021 12:2 9 PM EDT 11/15/2021 12:29 PM EDT Miladys Anderson MD POINT OF CARE TEST O RDGERSON Performing Organization Address [facility] Co de Phone Number [facility] [place] [address] * Phosphorus (11/15/2021 5:02 AM EDT) Phosphorus 3.7 2.5 - 4.5 mg/dL [facility] Blood 11/15/2021 5:02 AM EDT 11/15/2021 5:30 AM EDT Narrative Resulting Agency Comment Spec In Lab Miladys Anderson MD CHEMISTRY ORDERABLES Performing Organization Address [facility] de Phone Number [facility] [place] [address] * (ABNORMAL) Magnesium (11/15/2021 5:02 AM EDT) Magnesium 0.63(L) 0.69 - 1.07 mmol/L [facility] Blood 11/15/2021 5:02 AM EDT 11/15/2021 5:30 AM EDT Narrative Resulting Agency Comment Spec In Lab Miladys Anderson MD CHEMISTRY ORDERABLES [facility] [place] [address] * (ABNORMAL) Basic Metabolic Panel (non-fasting) (11/15/2021 5:02 AM EDT) Glucose 157 65 - 199 mg/dL [facility] Comment:Diabetes: >=200 mg/d L plus symptoms Blood Urea Nitrogen 9 8 - 18 mg/dL [facility] Creatinine 0.80 0.70 - 1.20 mg/dL [facility] Sodium 139 135 - 145 mmol/L [facility] Potassium 3.8 3.5 - 5.0 mmol/L [facility] Comment: Please note: ??Patients with WBC >100,000 may have falsely elevated Potassium levels. ??For accurate Potassium quantification in these patients send serum separator tube (gold top) for subsequent determinations. ??Contact the Clinical Chemistry Laboratory if there are any questions. Chloride 107 98 - 107 mmol/L [facility] Carbon Dioxide 24 22 - 31 mmol/L [facility] Anion Gap 8 5 - 15 mmol/L [facility] Calcium 8.2(L) 8.5 - 10.5 mg/dL [facility] Est Glomerular Filtration Rate 78 >=60 mL/min/1. 73 m?? [facility] Comment: This patient's estimated GFR was [...] and symptoms in addition to eGFR. Blood 11/15/2021 5:02 AM EDT 11/15/2021 5:30 AM EDT Narrative Resulting Agency Comment Spec In Lab Miladys Anderson MD CHEMISTRY ORDERABLES Performing Organization Address City/[facility]/ZIP Co de Phone Number [facility] [place] [address] * POCT Glucose (11/14/2021 11:11 PM EDT) Pathologist [facility] Glucose, POC 161 65 - 199 mg/dL [facility] Comment: Supplemental ranges: <140 mg/dL before meals <180 mg/dL all other times of the day Blood 11/14/2021 11:1 1 PM EDT 11/14/2021 11:11 PM EDT Miladys Anderson MD POINT OF CARE TEST O RDERABLES Performing Organization Address City/[facility]/ZIP Co de Phone Number [facility] [place] [address] * (ABNORMAL) Differential, Automated (11/14/2021 8:35 PM EDT) [facility] Neutrophil % 72.0 % [facility] Neutrophil Absolute 5.73 1.70 - 6.10 x10(3)/mc L [facility] Lymph % 14.8 % [facility] Lymphocytes Abs 1.2 0.9 - 3.2 x10(3)/mc L [facility] Monocyte % 8.8 % [facility] Monocyte Abs 0.7 0.3 - 0.9 x10(3)/mc L [facility] Eos % 3.4 % [facility] Eosinophils Abs 0.3 0.0 - 0.4 x10(3)/mc L [facility] Basophil % 0.4 % [facility] Baso Absolute 0.0 0.0 - 0.1 x10(3)/mc L [facility] Immature Gran % 0.60 % [facility] Comment: Immature granulocytes(IG's)percentage and absolute count will include metamyelocytes, myelocytes, and promyelocytes. Blood smears from CBCs yielding IG's will be scanned manually for concordance. If this scan disagrees with the automated IG or if promyelocytes are noted, a manual differential will be performed. Immature Gran Absolute 0.05(H) 0.00 - 0.04 x10(3)/mc L [facility] Blood 11/14/2021 8:35 PM EDT 11/14/2021 8:35 PM EDT Narrative Resulting Agency Comment Spec In Lab Meredith Nash MD HEMATOLOGY ORDERABLE S [facility] [place] [address] * (ABNORMAL) Hemogram (11/14/2021 8:35 PM EDT) White Blood Cell 8.0 4.0 - 9.5 x10(3)/mc L [facility] Red Blood Cell 3.64(L) 4.00 - 5.21 x10(6)/mc L [facility] Hemoglobin 11.1(L) 11.7 - 15.5 g/dL [facility] Hematocrit 33.0(L) 35.7 - 45.8 % [facility] Mean Cell Volume 90.7 82.6 - 94.[address] [facility] Mean Cell Hemoglobin 30.5 27.1 - 32.[address] [facility] Mean Cell Hemoglobin Concentration 33.6 31.7 - 35.0 g/dL [facility] Platelet 81(L) 145 - 357 x10(3)/mc L [facility] RDW Standard Deviation 50.4(H) 37.0 - 46.[address] [facility] RDW coefficient of variation 15.2(H) 11.5 - 14.1 % [facility] Mean Platelet Volume 9.8 7.6 - 12.[address] [facility] NRBC% auto 0.0 % [facility] NRBC Absolute 0.000 0.000 - 0.000 x10(3)/mc L [facility] Blood 11/14/2021 8:35 PM EDT 11/14/2021 8:35 PM EDT Narrative Resulting Agency Comment Spec In Lab Meredith Nash MD HEMATOLOGY ORDERABLE S [facility] [place] [address] * POCT Glucose (11/14/2021 6:04 PM EDT) Glucose, POC 129 65 - 199 mg/dL [facility] Comment: Supplemental ranges: <140 mg/dL before meals <180 mg/dL all other times of the day Blood 11/14/2021 6:04 PM EDT 11/14/2021 6:04 PM EDT Miladys Anderson MD POINT OF CARE TEST O RDERAANURAG Performing Organization Address City/[facility]/ZIP Co de Phone Number [facility] [place] [address] * Specimen to Pathology (11/14/2021 4:53 PM EDT) AP Specimen 11/14/2021 4:53 PM EDT 11/14/2021 4:[address] [facility] - 11/14/2021 4:53 PM EDT Specimen requisition ordered. ??Separate Pathology report to follow Miladys Anderson MD PATHOLOGY/CYTOLOGY O RDERABLES Performing Organization Address City/[facility]/ZIP Co de Phone Number [facility] [place] [address] * Specimen to Pathology (11/14/2021 3:58 PM EDT) AP Specimen 11/14/2021 3:58 PM EDT 11/14/2021 3:[address] [facility] - 11/14/2021 3:58 PM EDT Specimen requisition ordered. ??Separate Pathology report to follow Miladys Anderson MD PATHOLOGY/CYTOLOGY Edi CARVALHO [facility] [place] [address] * Surgical Pathology Report (11/14/2021 3:42 PM EDT) Final Diagnosis [id number] ? Location: [facility]; [facility]; The signing pathologist has (i) examined the relevant preparation(s) for the specimen(s) and (ii) rendered or confirmed the diagnosis(es). . 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 Electronically signed by: ?Kenn SHARPE, Winifred Peace Verified: ??12/04/2021 13:26 ??Pathologist Performed at: ??-[facility] Dept. of Pathology, [place], [place] SYNOPTIC Specimen ? Procedure: ??Partial vulvectomy Tumor ? Tumor Focality: ??Unifocal ? Tumor Site: ??Right vulva ?Subsite of Right Vulva: ??Labium minus ? Tumor Size: ??2.0 Centimeters (cm) ? Histologic Type: ??Squamous cell carcinoma, HPV-independent ? Histologic Grade: ??G2, moderately differentiated ? Depth of Tumor Invasion: ??7 mm ? Tumor Border: ??Pushing ? Other Tissue / Organ Involvement: ??Not applicable ? Lymphovascular Invasion: ??Not identified ? Tumor Comment: ??Perineural invasion is present (C15) Margins ? Margin Status for Invasive Carcinoma: ??All margins negative for invasive ?carcinoma ?Closest Margin(s) to Invasive Carcinoma: ??Peripheral - 12:00 tip (C2) ?Distance from Invasive Carcinoma to Closest Margin: ??12 mm ? Margin Status for HSIL (VIN2-3) or dVIN: ??Atypical lichen sclerosus extends ?to the lateral and 12:00 tip margin; no definite dVIN is at the margins ? Margin Comment: ??Lichen sclerosus is also present at the medial margin. Regional Lymph Nodes ? Regional Lymph Node Status: ??All regional lymph nodes negative for tumor ?cells ? Total Number of Lymph Nodes Examined: ??4 ?Jas Site(s) Examined: ??Right inguinal ? Number of [place] Nodes Examined: ??1 Pathologic Stage Classification (pTNM, AJCC 8th ed.) ? pT Category: ??pT1b ? pN Modifier: ??(sn) ? pN Category: ??pN0 FIGO Stage ? FIGO Stage: ??IB Additional Findings . SYNOPTIC ? Additional Findings: ??Differentiated vulvar intraepithelial neoplasia (dVIN); ? Lichen sclerosus Best Tumor Blocks for Future Studies ? Tumor Block(s): ??C15 ? Normal Block(s): ??C7 ? CAP eCC 2021 Q1 Release SPECIMEN(S) SUBMITTED A - Right [place] Lymph Node, excision (1) ?for frozen section B - Right Superficial Inguinal Lymph Node, excision (1) C - Vulva, excision (1) CLINICAL INFORMATION Vulvar cancer SPECIMEN PROCESSING A - Labeled/Fixative: Right sentinel lymph node, fresh. Quantity/Size: Single, 4.5 x 2.5 x 2.0 cm. Tissue Description: Adipose tissue with one, up to 0.6 cm. Sections/Processin g: The following tissue is submitted for frozen section: One node, bisected (FS1). Desktop Support Specialist sections in 1 cassettes as follows: ?A1: ??FS1 remnant B - Labeled/Fixative: Right superficial inguinal lymph node, fresh. Quantity/Size: Two, 6.7 x 5.3 x 1.5 cm. Tissue Description: Adipose tissue with three, up to 3.5 x 2.0 x 1.5 cm. Sections/Processin g: Desktop Support Specialist sections in 15 cassettes as follows: ?B1-B6: ??Single candidate lymph node, serially sectioned and entirely submitted ?B7-B9: ??Single candidate lymph node, serially sectioned and entirely submitted ?B10-B15: ??Single lymph node, serially sectioned and entirely submitted C - Labeled/Fixative: Vulva, fresh. Quantity/Size: Single, 6.0 x 5.6 x 2.0 cm. Orientation: 2 bunny ears at 12 o'clock and 1 bunny ear medial. Tissue Description: Partial, 5.0 x 3.1 cm beebe skin ellipse with a central 2.0 x 1.6 cm partially exophytic and partially ulcerating beebe white lesion, extending 0.8 cm from the 3 o'clock margin (medial), 2.0 cm from 12 o'clock margin (tip), 1.6 cm from the 6 o'clock tip and 1.0 cm from the lateral tip (9 o'clock). Attached to the skin ellipse is moderate amount of subcutaneous soft tissue, predominantly located to the 3 o'clock margin. Sections/Processin g: ??The specimen is inked as follows: The 12-3-6 o'clock skin and soft tissue margin is inked blue (medial) and the 6-9-12 o'clock skin and soft tissue margin is inked black (lateral). The specimen, excluding the tips, is serially sectioned perpendicularly to the long axis and submitted sequentially from the 12 o'clock tip to the 6 o'clock tip. in 23 cassettes as follows: ?C1-C4: ??12 o'clock tip, perpendicularly sectioned submitted entirely ?C5-C7: ??6 o'clock tip, perpendicularly sectioned and submitted entirely ?C8-C22: ??Body of specimen, serially sectioned and sequentially submitted from ? the 12 o'clock tip to the 6 o'clock tip (C9-CD10, C11-C12, C13-C14, C15-C16 are ? bisected slices, C17-C19 is one trisected slice, CD20 is detached soft tissue) ?C23: ??Detached soft tissue ??op ?Frozen Section FROZEN SECTION DIAGNOSIS AFS1: Lymph node, right sentinel, excision: . FROZEN SECTION DIAGNOSIS - One lymph node, negative for tumor. 11/14/21 16:07 Electronically signed by: ?Devyn Bradley MD Verified: ??11/14/2021 16:11 ??Pathologist Performed at: ??-[facility] Dept. of Pathology, [place], [place] This intraoperative consultation should be interpreted as a preliminary diagnosis pending review of the entire specimen and special studies, if any. A final Surgical Pathology report will follow this preliminary Frozen Section report(s). 12/04/2021 1:[address] [facility] VULVAL STRUCTURE / Unknown 11/14/2021 3:42 PM EDT 11/14/2021 3:42 PM EDT LYMPH NODE SPECIMEN / Unknown 11/14/2021 3:42 PM EDT 11/14/2021 3:42 PM EDT VULVAL STRUCTURE / Unknown 11/14/2021 3:42 PM EDT 11/14/2021 3:42 PM EDT Miladys Anderson MD PATHOLOGY/CYTOLOGY O RDGERSON Performing Organization Address [facility] Co de Phone Number [facility] [place] [address] * Specimen to Pathology (11/14/2021 3:42 PM EDT) AP Specimen 11/14/2021 3:42 PM EDT 11/14/2021 3:[address] [facility] - 11/14/2021 3:42 PM EDT Specimen requisition ordered. ??Separate Pathology report to follow Miladys Anderson MD PATHOLOGY/CYTOLOGY O MAIA Performing Organization Address [facility] Co de Phone Number [facility] [place] [address] * POCT Glucose (11/14/2021 1:20 PM EDT) Glucose, POC 189 65 - 199 mg/dL [facility] Comment: Supplemental ranges: <140 mg/dL before meals <180 mg/dL all other times of the day Blood 11/14/2021 1:20 PM EDT 11/14/2021 1:20 PM EDT Miladys Anderson MD POINT OF CARE TEST O RDERAANURAG Performing Organization Address [facility] Co de Phone Number [facility] [place] [address] * Type and Screen Validity (11/14/2021 12:57 PM EDT) T&S only valid at [facility] LABORATORY Comment:This Type and Screen result is only valid at the [facility] Blood 11/14/2021 12:5 7 PM EDT 11/14/2021 12:57 PM EDT Narrative Resulting Agency Comment Spec In Lab Miladys Anderson MD BLOOD BANK LAB ORDER RANI [facility] [place] [address] * Antibody screen (11/14/2021 12:57 PM EDT) Ab Screen Interp Negative [facility] Expires at 2359 on: 11/17/2021 [facility] Blood 11/14/2021 12:5 7 PM EDT 11/14/2021 12:57 PM EDT Narrative Resulting Agency Comment Spec In Lab Miladys Anderson MD BLOOD BANK LAB ORDER RANI Performing Organization Address City/[facility]/ZIP Co de Phone Number [facility] [place] [address] * ABO/Rh Typing (11/14/2021 12:57 PM EDT) ABORH Type A Pos [facility] Blood 11/14/2021 12:5 7 PM EDT 11/14/2021 12:57 PM EDT Narrative Resulting Agency Comment Spec In Lab Miladys Anderson MD BLOOD BANK LAB ORDER RANI Performing Organization Address City/[facility] Co de Phone Number [facility] [place] [address] documented in this encounter Visit Diagnoses Diagnosis Vulvar cancer Malignant neoplasm of vulva, unspecified site Vulvar cancer Malignant neoplasm of vulva, unspecified site documented in this encounter Admitting Diagnoses Diagnosis Vulvar cancer Malignant neoplasm of vulva, unspecified site documented in this encounter Administered Medications Inactive Administered Medications - up to 3 most recent administrations Medication Order MAR Action Action Date Dose Rate Site acetaminophen (Tylenol) tablet 1,000 mg 1,000 mg, Oral, ONCE, 1 dose, On Wed11/14/21 at 1330, Maximum dose of acetaminophen is 4000 mg from all sources in 24 hours. When ordered for pain, acetaminophen should be given even when other ordered pain medications are indicated. , Day of Surgery (Day of Procedure), Routine Given 11/14/2021 1:45 PM EDT 1,000 mg acetaminophen (Tylenol) tablet 650 mg 650 mg, Oral, EVERY 6 HOURS PRN, Starting on Wed11/14/21 at 2327, Until 11/15/21 at 1035, Pain, Maximum dose of acetaminophen is 4,000 mg from all sources in 24 hours. Both acetaminophen and ibuprofen, if ordered, should be given even when other ordered pain medications are indicated., Routine Given 11/15/2021 7:47 AM EDT 650 mg Given 11/14/2021 11:57 PM EDT 650 mg acetaminophen (Tylenol) tablet 650 mg 650 mg, Oral, EVERY 6 HOURS SCHEDULED, First dose (after last modification) on 11/15/21 at 1200, Until Discontinued, Maximum dose of acetaminophen is 4,000 mg from all sources in 24 hours. Both acetaminophen and ibuprofen, if ordered, should be given even when other ordered pain medications are indicated., Routine Given 11/16/2021 12:25 PM EDT 650 mg Given 11/16/2021 6:16 AM EDT 650 mg Given 11/15/2021 11:48 PM EDT 650 mg ceFAZolin (Ancef) 2 g vial attach to sodium chloride 0.9% 100 mL Mini-Bag Plus 2 g, Intravenous, EVERY 8 HOURS, First dose on Wed11/14/21 at 1830, Until Discontinued, Administer over 30 Minutes, Redose after 4 hours., Recovery (Recovery-Hospital Unit), Indication for (Active or Suspected): Other (See comment) New Bag 11/16/2021 2:15 AM EDT 2 g 200 mL/hr New Bag 11/15/2021 6:58 PM EDT 2 g 200 mL/hr New Bag 11/15/2021 10:25 AM EDT 2 g 200 mL/hr cephALEXin (Keflex) capsule 250 mg 250 mg, Oral, 2 TIMES DAILY, First dose on 11/16/21 at 0900, Until Discontinued, Routine, Indication for (Active or Suspected): Skin/Skin Structure Given 11/16/2021 1:33 PM EDT 250 mg dextrose 10% infusion 250 mL, at 1,000 mL/hr, Intravenous, EVERY 30 MIN PRN, Starting on Wed11/14/21 at 2327, Until 11/16/21 at 1725, For BG 50-70 mg/dL: Oral treatment preferred: If able to drink, give 120 mL Juice or Regular (not diet) soda OR If NPO, give 15 gram glucose 40% oral gel massaged into buccal mucosa OR if unconscious or uncooperative, give 25 gram (250 mL) Dextrose 10% IV over 15 minutes per protocol OR, if no IV access, 1 mg Glucagon IM. For BG less than 50 mg/dL: Oral treatment preferred: If able to drink, give 240 mL Juice or Regular (not diet) soda OR If NPO, give 30 gram glucose 40% oral gel massaged in buccal mucosa OR if unconscious or uncooperative, give 25 gram (250 mL) Dextrose 10% IV over 15 minutes per protocol OR, if no IV access, 1 mg Glucagon IM. Recheck BG in 30 minutes. May repeat juice/soda, gel, dextrose or glucagon once per episode. For persistent hypoglycemia, consider longer-acting treatment for the duration of the active insulin. enoxaparin (Lovenox) (40 mg/0.4 mL) subcutaneous injection 40 mg 40 mg, Subcutaneous, NIGHTLY, First dose on 11/15/21 at 0015, Until Discontinued, Routine Given 11/15/2021 8:27 PM EDT 40 mg Abdom inal Tissue Given 11/14/2021 11:57 PM EDT 40 mg gabapentin (Neurontin) capsule 600 mg 600 mg, Oral, 3 TIMES DAILY, First dose on 11/15/21 at 0900, Until Discontinued, Routine Given 11/16/2021 8:41 AM EDT 600 mg Given 11/15/2021 8:27 PM EDT 600 mg Given 11/15/2021 3:25 PM EDT 600 mg glucagon (Glucagen) (1 mg/mL) injection solution 1 mg 1 mg, Intramuscular, EVERY 30 MIN PRN, Starting on Wed11/14/21 at 2327, Until 11/16/21 at 1725, Low blood sugar, For BG 50-70 mg/dL: Oral treatment preferred: If able to drink, give 120 mL Juice or Regular (not diet) soda OR If NPO, give 15 gram glucose 40% oral gel massaged into buccal mucosa OR if unconscious or uncooperative, give 25 gram (250 mL) Dextrose 10% IV over 15 minutes per protocol OR, if no IV access, 1 mg Glucagon IM. For BG less than 50 mg/dL: Oral treatment preferred: If able to drink, give 240 mL Juice or Regular (not diet) soda OR If NPO, give 30 gram glucose 40% oral gel massaged in buccal mucosa OR if unconscious or uncooperative, give 25 gram (250 mL) Dextrose 10% IV over 15 minutes per protocol OR, if no IV access, 1 mg Glucagon IM. Recheck BG in 30 minutes. May repeat juice/soda, gel, dextrose or glucagon once per episode. For persistent hypoglycemia, consider longer-acting treatment for the duration of the active insulin., Routine glucose (Glutose) 40% oral geL 15-30 g of glucose, Buccal, EVERY 30 MIN PRN, Starting on Wed11/14/21 at 2327, Until Wed11/16/21 at 1725, Low blood sugar, For BG 50-70 mg/dL: Oral treatment preferred: If able to drink, give 120 mL Juice or Regular (not diet) soda OR If NPO, give 15 gram glucose 40% oral gel massaged into buccal mucosa OR if unconscious or uncooperative, give 25 gram (250 mL) Dextrose 10% IV over 15 minutes per protocol OR, if no IV access, 1 mg Glucagon IM. For BG less than 50 mg/dL: Oral treatment preferred: If able to drink, give 240 mL Juice or Regular (not diet) soda OR If NPO, give 30 gram glucose 40% oral gel massaged in buccal mucosa OR if unconscious or uncooperative, give 25 gram (250 mL) Dextrose 10% IV over 15 minutes per protocol OR, if no IV access, 1 mg Glucagon IM. Recheck BG in 30 minutes. May repeat juice/soda, gel, dextrose or glucagon once per episode. For persistent hypoglycemia, consider longer-acting treatment for the duration of the active insulin. 1 tube of Glutose-15 contains 15 grams of glucose (net weight of tube = 37.5 grams.), Routine heparin (porcine) (5,000 units/1 mL) subcutaneous injection 5,000 Units 5,000 Units, Subcutaneous, ONCE, 1 dose, On Wed11/14/21 at 1330, Day of Surgery (Day of Procedure), Routine Given 11/14/2021 1:45 PM EDT 5,000 Units Abdominal Tissue ibuprofen (Advil) tablet 600 mg 600 mg, Oral, EVERY 6 HOURS PRN, Starting on 11/15/21 at 0608, Until 11/16/21 at 1725, Pain, Administer orally with milk or food to minimize GI irritation. Maximum dose of 3,200 mg from all sources in 24 hours, Routine insulin detemir (Levemir) (100 unit/mL) subcutaneous injection vial 16 Units 16 Units, Subcutaneous, DAILY, First dose on Wed11/16/21 at 0900, Until Discontinued Given 11/16/2021 8:43 AM EDT 16 Units insulin lispro (HumaLOG;Admelog) (100 unit/mL) subcutaneous injection vial 1-4 Units 1-4 Units, Subcutaneous, 3 TIMES DAILY BEFORE MEALS, First dose on Wed11/15/21 at 0730, Until Discontinued, CORRECTION BOLUS [1-4 Units] Sensitive Sliding Scale (BG in mg/dL): Correction factor 40 (1 unit of insulin is expected to drop the glucose 40 mg/dL) BG 160 - 200 Give 1 unit BG 201 - 240 Give 2 units BG 241 - 280 Give 3 units BG greater than 280, give 4 units and recheck BG in 2 hours. - If recheck BG is LESS than 280, give no insulin and resume schedule - If recheck BG is GREATER than 280, give 4 units and repeat BG in 2 hours (no more than 3 times) & call for new insulin orders. DO NOT hold if NPO, unless specifically directed to do so by written order. Per Blood Glucose Monitoring Policy, re-check a BG of > 240 mg/dL in 2 hours., Routine Given 11/16/2021 12:37 PM EDT 1 Units Given 11/16/2021 8:40 AM EDT 2 Units Given 11/15/2021 5:44 PM EDT 2 Units lactated Ringers 250 mL IV bolus Intravenous, ONCE, 1 dose, On Wed11/14/21 at 2015 New Bag 11/14/2021 7:51 PM EDT lactated Ringers 250 mL IV bolus Intravenous, ONCE, 1 dose, On Wed11/14/21 at 204 New Bag 11/14/2021 10:09 PM EDT lactated ringers infusion 1,000 mL, at 100 mL/hr, Intravenous, CONTINUOUS, Starting on Wed11/14/21 at 1845, Until Wed11/15/21 at 1211, Recovery (Recovery-Hospital Unit) New Bag 11/15/2021 10:26 AM EDT 1,000 mLs 100 m L/hr New Bag 11/15/2021 12:11 AM EDT 1,000 mLs 100 mL/hr New Bag 11/14/2021 6:20 PM EDT 1,000 mLs 100 mL/hr levothyroxine (Synthroid) tablet 75 mcg 75 mcg, Oral, DAILY, First dose on 11/15/21 at 0600, Until Discontinued, Routine Given 11/16/2021 6:16 AM EDT 75 mcg Given 11/15/2021 5:25 AM EDT 75 mcg magnesium sulfate 2 g in sterile water 50 mL infusion 2 g, Intravenous, ONCE, 1 dose, On 11/16/21 at 0645, Administer over 120 Minutes New Bag 11/16/2021 6:15 AM EDT 2 g 25 mL/hr metFORMIN (Glucophage) tablet 1,000 mg 1,000 mg, Oral, 2 TIMES DAILY WITH MEALS, First dose on 11/15/21 at 0800, Until Discontinued, Routine Given 11/16/2021 8:41 AM EDT 1,000 mg Given 11/15/2021 5:26 PM EDT 1,000 mg Given 11/15/2021 8:04 AM EDT 1,000 mg naloxone (Narcan) (0.4 mg/mL) injection 0.04 mg 0.04 mg, Intravenous, EVERY 5 MIN PRN, 3 doses, Starting on Wed11/14/21 at 1745, Until Wed11/16/21 at 1725, Opioid Reversal, for respiratory rate less than 6 or unresponsive., May repeat every 5 minutes to increase respiratory rate. DO NOT exceed 0.12 mg total dose. Notify anesthesia immediately if administered., Routine ondansetron (pf) (Zofran) (2 mg/mL) injection 4 mg 4 mg, Intravenous, EVERY 30 MIN PRN, 2 doses, Starting on Wed11/14/21 at 1745, Until Wed11/16/21 at 1725, Nausea, Maximum total dose of 8 mg (including OR administration). If multiple antiemetics ordered, use ondansetron first and if ineffective use prochlorperazine second and if ineffective use promethazine ondansetron (pf) (Zofran) (2 mg/mL) injection 4 mg 4 mg, Intravenous, EVERY 8 HOURS PRN, Starting on Wed11/14/21 at 2327, Until 11/16/21 at 1725, Nausea, May repeat times one in 30 minutes if ineffective. If multiple antiemetics are ordered, use ondansetron first, Recovery (Recovery-Hospital Unit) ondansetron (Zofran) tablet 4 mg 4 mg, Oral, EVERY 8 HOURS PRN, Starting on Wed11/14/21 at 2327, Until 11/16/21 at 1725, Nausea, Vomiting, If multiple antiemetics are ordered, use ondansetron first. PO Preferred. If patient unable to take PO, may give IV if ordered. May repeat times one in 45 minutes if ineffective., Recovery (Recovery-Hospital Unit), Routine oxyCODONE (Roxicodone) tablet 5 mg 5 mg, Oral, EVERY 4 HOURS PRN, Starting on 11/15/21 at 1032, Until 11/16/21 at 1725, Pain, Routine PARoxetine (Paxil) tablet 20 mg 20 mg, Oral, EVERY MORNING, First dose on 11/15/21 at 0700, Until Discontinued, Routine Given 11/16/2021 8:41 AM EDT 20 mg Given 11/15/2021 8:06 AM EDT 20 mg PHENYLephrine (Jaimie-Synephrine) (80 mcg/mL) in sodium chloride 0.9% 250 mL infusion 0-180 mcg/min (0-135 mL/hr), Intravenous, CONTINUOUS, Starting on Wed11/14/21 at 1900, Until 11/15/21 at 0736, Titrate to maintain mean arterial pressure (MAP) greater than 65 mmHg. Start at 50 mcg/min and adjust dose by 25 mcg/min every 10 minutes. Do not exceed 180 mcg/min. Warning Vesicant/Irritant Medication Per the Vasopressor Administration Policy, [place] [address]: A central line must be placed for the administration of vasopressor infusions lasting longer than 8 hours. Warning Vesicant/Irritant Medication Restarted 11/14/2021 9:15 PM EDT 5 mcg/min 3.8 mL/hr Restarted 11/14/2021 8:10 PM EDT 5 mcg/min 3.8 mL/hr Rate/Dose Change 11/14/2021 7:01 PM EDT 5 mcg/min 3.8 mL/ hr polyethylene glycoL (Miralax) packet 17 g 17 g, Oral, DAILY, First dose on 11/15/21 at 0900, Until Discontinued, Routine Given 11/16/2021 8:41 AM EDT 17 g prochlorperazine (Compazine) (5 mg/mL) injection 10 mg 10 mg, Intravenous, EVERY 6 HOURS PRN, Starting on Wed11/14/21 at 2327, Until 11/16/21 at 1725, Nausea, Vomiting, If multiple antiemetics are ordered, use ondansetron first. If ondansetron ineffective use prochlorperazine. , Recovery (Recovery-Hospital Unit), Routine prochlorperazine (Compazine) tablet 10 mg 10 mg, Oral, EVERY 6 HOURS PRN, Starting on Wed11/14/21 at 2327, Until 11/16/21 at 1725, Nausea, Vomiting, If multiple antiemetics are ordered, use ondansetron first. If ondansetron ineffective use prochlorperazine. PO Preferred. If patient unable to take PO, may give IV if ordered., Recovery (Recovery-Hospital Unit), Routine senna-docusate (Pericolace) 8.6-50 mg per tablet 2 tablet 2 tablet, Oral, 2 TIMES DAILY, First dose on 11/15/21 at 0015, Until Discontinued, Routine Given 11/16/2021 8:42 AM EDT 2 tablets Given 11/15/2021 8:27 PM EDT 2 tablets Given 11/15/2021 8:05 AM EDT 2 tablets sodium chloride 0.9 % (flush) (BD PosiFlush Normal Saline 0.9) flush 5 mL 5 mL, Intravenous, 2 TIMES DAILY, First dose on 11/15/21 at 0015, Until Discontinued, Recovery (Recovery-Hospital Unit), Routine Given 11/16/2021 8:42 AM EDT 5 mLs Given 11/15/2021 8:27 PM EDT 5 mLs Given 11/15/2021 8:07 AM EDT 5 mLs documented in this encounter Active and Recently Administered Medications Times are shown in EDT. Scheduled Medication Order 11/14/2021 11/15/2021 11/16/2021 acetaminophen (Tylenol) tablet 1,000 mg (COMPLETED) 1,000 mg, Oral, ONCE, 1 dose, On Wed11/14/21 at 1330, Maximum dose of acetaminophen is 4000 mg from all sources in 24 hours. When ordered for pain, acetaminophen should be given even when other ordered pain medications are indicated. , Day of Surgery (Day of Procedure), Routine 1345 (Given - Provider: Conchis Vazquez, HANNA) acetaminophen (Tylenol) tablet 650 mg 650 mg, Oral, EVERY 6 HOURS SCHEDULED, First dose (after last modification) on Wed11/15/21 at 1200, Until Discontinued, Maximum dose of acetaminophen is 4,000 mg from all sources in 24 hours. Both acetaminophen and ibuprofen, if ordered, should be given even when other ordered pain medications are indicated., Routine 1200 (Not Given - Provider: Araceli Green RN - Reason: See comment - Comment: Last given at 0747, pt stated that she does not feel she needs tylenol at this time)1726 (Given - Provider: Gabriela Coker RN)2348 (Given - Provider: Asiya Boyle, HANNA) 0616 (Given - Provider: Asiya Boyle RN)1225 (Given - Provider: Brooklyn Sales RN) ceFAZolin (Ancef) 2 g vial attach to sodium chloride 0.9% 100 mL Mini-Bag Plus (CANCELED) 2 g, Intravenous, EVERY 8 HOURS, First dose on Wed11/14/21 at 1830, Until Discontinued, Administer over 30 Minutes, Redose after 4 hours., Recovery (Recovery-Hospital Unit), Indication for (Active or Suspected): Other (See comment) 1955 (New Bag - Provider: Brooklyn Meraz RN)2025 (Stopped - Provider: Araceli Green RN - Comment: Stopped per nightshift RN) 0141 (New Bag - Provider: Stella Kunz, HANNA)0211 (Stopped - Provider: Stella Kunz, RN)1025 (New Bag - Provider: Araceli Green, HANNA)1055 (Stopped - Provider: Araceli Green RN)1858 (New Bag - Provider: Gabriela Coker RN)2012 (Stopped - Provider: Asiya Boyle, HANNA) 021 (New Bag - Provider: Asiya Boyle, HANNA)030 (Stopped - Provider: Asiya Boyle RN) cephALEXin (Keflex) capsule 250 mg 250 mg, Oral, 2 TIMES DAILY, First dose on 11/16/21 at 0900, Until Discontinued, Routine, Indication for (Active or Suspected): Skin/Skin Structure 1333 (Given - Provider: Brooklyn Sales, HANNA) enoxaparin (Lovenox) (40 mg/0.4 mL) subcutaneous injection 40 mg 40 mg, Subcutaneous, NIGHTLY, First dose on 11/15/21 at 0015, Until Discontinued, Routine 2357 (Given - Provider: Stella Kunz RN) 2026 (Given - Provider: Asiya Boyle, HANNA) gabapentin (Neurontin) capsule 600 mg 600 mg, Oral, 3 TIMES DAILY, First dose on 11/15/21 at 0900, Until Discontinued, Routine 0806 (Given - Provider: Araceli Green RN)1525 (Given - Provider: Gabriela Coker, HANNA)202 (Given - Provider: Asiya Boyle, HANNA) 0841 (Given - Provider: Brooklyn Sales, HANNA)1500 (Due) heparin (porcine) (5,000 units/1 mL) subcutaneous injection 5,000 Units (COMPLETED) 5,000 Units, Subcutaneous, ONCE, 1 dose, On Wed11/14/21 at 1330, Day of Surgery (Day of Procedure), Routine 1345 (Given - Provider: Conchis Vazquez, HANNA) insulin detemir (Levemir) (100 unit/mL) subcutaneous injection vial 16 Units 16 Units, Subcutaneous, DAILY, First dose on 11/16/21 at 0900, Until Discontinued 0843 (Given - Provider: Brooklyn Sales, HANNA) insulin lispro (HumaLOG;Admelog) (100 unit/mL) subcutaneous injection vial 1-4 Units(Linked Group 1) 1-4 Units, Subcutaneous, 3 TIMES DAILY BEFORE MEALS, First dose on 11/15/21 at 0730, Until Discontinued, CORRECTION BOLUS [1-4 Units] Sensitive Sliding Scale (BG in mg/dL): Correction factor 40 (1 unit of insulin is expected to drop the glucose 40 mg/dL) BG 160 - 200 Give 1 unit BG 201 - 240 Give 2 units BG 241 - 280 Give 3 units BG greater than 280, give 4 units and recheck BG in 2 hours. - If recheck BG is LESS than 280, give no insulin and resume schedule - If recheck BG is GREATER than 280, give 4 units and repeat BG in 2 hours (no more than 3 times) & call for new insulin orders. DO NOT hold if NPO, unless specifically directed to do so by written order. Per Blood Glucose Monitoring Policy, re-check a BG of > 240 mg/dL in 2 hours., Routine 0730 (Not Given - Provider: Stella Kunz RN - Reason: Order parameters not met)1230 (Given - Provider: Araceli Green RN - Comment: BG 209)1744 (Given - Provider: Gabriela Coker RN) 0840 (Given - Provider: Brooklyn aSles, RN)1237 (Given - Provider: Brooklyn Sales, HANNA) lactated Ringers 250 mL IV bolus (COMPLETED) Intravenous, ONCE, 1 dose, On Wed11/14/21 at 2015 1951 (New Bag - Provider: Brooklyn Meraz, RN) lactated Ringers 250 mL IV bolus (COMPLETED) Intravenous, ONCE, 1 dose, On Wed11/14/21 at 2045 2209 (New Bag - Provider: Brooklyn Meraz, HANNA) levothyroxine (Synthroid) tablet 75 mcg 75 mcg, Oral, DAILY, First dose on Wed11/15/21 at 0600, Until Discontinued, Routine 0525 (Given - Provider: Stella Kunz, HANNA) 0616 (Given - Provider: Asiya Boyle, HANNA) magnesium sulfate 2 g in sterile water 50 mL infusion (COMPLETED) 2 g, Intravenous, ONCE, 1 dose, On Wed11/16/21 at 0645, Administer over 120 Minutes 0615 (New Bag - Provider: Asiya Boyle, RN)0845 (Stopped - Provider: Brooklyn Sales, HANNA) metFORMIN (Glucophage) tablet 1,000 mg 1,000 mg, Oral, 2 TIMES DAILY WITH MEALS, First dose on 11/15/21 at 0800, Until Discontinued, Routine 0804 (Given - Provider: Araceli Green RN)1726 (Given - Provider: Gabriela Coker RN) 0841 (Given - Provider: Brooklyn Sales, RN) PARoxetine (Paxil) tablet 20 mg 20 mg, Oral, EVERY MORNING, First dose on 11/15/21 at 0700, Until Discontinued, Routine 0806 (Given - Provider: Araceli Green RN) 0841 (Given - Provider: Brooklyn Sales, RN) polyethylene glycoL (Miralax) packet 17 g 17 g, Oral, DAILY, First dose on 11/15/21 at 0900, Until Discontinued, Routine 0900 (Not Given - Provider: Araceli Green RN - Reason: Patient/family refused) 0841 (Given - Provider: Brooklyn Sales, RN) senna-docusate (Pericolace) 8.6-50 mg per tablet 2 tablet 2 tablet, Oral, 2 TIMES DAILY, First dose on 11/15/21 at 0015, Until Discontinued, Routine 2358 (Given - Provider: Stella Kunz RN) 0805 (Given - Provider: Araceli Green RN)202 (Given - Provider: Asiya Boyle, HANNA) 0842 (Given - Provider: Brooklyn Sales, HANNA) sodium chloride 0.9 % (flush) (BD PosiFlush Normal Saline 0.9) flush 5 mL 5 mL, Intravenous, 2 TIMES DAILY, First dose on 11/15/21 at 0015, Until Discontinued, Recovery (Recovery-Hospital Unit), Routine 2357 (Given - Provider: Stella Kunz, HANNA) 0807 (Given - Provider: Araceli Green RN)202 (Given - Provider: Asiya Boyle, HANNA) 0842 (Given - Provider: Brooklyn Sales, RN) Continuous Medication Order 11/14/2021 11/15/2021 11/16/2021 lactated ringers infusion (CANCELED) 1,000 mL, at 100 mL/hr, Intravenous, CONTINUOUS, Starting on Wed11/14/21 at 1330, Until Wed11/14/21 at 2305, Day of Surgery (Day of Procedure) 1402 (New Bag - Provider: Betsy Sequeira CRNA)1430 (Anesthesia Volume Adjustment - Provider: Betsy Sequeira CRNA)1533 (Anesthesia Volume Adjustment - Provider: Betsy Sequeira CRNA)1614 (Anesthesia Volume Adjustment - Provider: Betsy Sequeira CRNA)1746 (Anesthesia Volume Adjustment - Provider: Terese Gray CRNA)2305 (Stopped - Provider: Stella Kunz, RN) lactated ringers infusion (CANCELED) 1,000 mL, at 100 mL/hr, Intravenous, CONTINUOUS, Starting on Wed11/14/21 at 1845, Until 11/15/21 at 1211, Recovery (Recovery-Hospital Unit) 1820 (New Bag - Provider: Brooklyn Meraz RN) 0011 (New Bag - Provider: Stella Kunz, RN)1026 (New Bag - Provider: Araceli Green, HANNA)1211 (Stopped - Provider: Araceli Green RN) PHENYLephrine (Jaimie-Synephrine) (80 mcg/mL) in sodium chloride 0.9% 250 mL infusion (CANCELED) 0-180 mcg/min (0-135 mL/hr), Intravenous, CONTINUOUS, Starting on Wed11/14/21 at 1900, Until 11/15/21 at 0736, Titrate to maintain mean arterial pressure (MAP) greater than 65 mmHg. Start at 50 mcg/min and adjust dose by 25 mcg/min every 10 minutes. Do not exceed 180 mcg/min. Warning Vesicant/Irritant Medication Per the Vasopressor Administration Policy, [place] 265[address]: A central line must be placed for the administration of vasopressor infusions lasting longer than 8 hours. Warning Vesicant/Irritant Medication 1843 (New Bag - Provider: Brooklyn Meraz RN)1856 (Rate/Dose Change - Provider: Simi Johnson, HANNA)1901 (Rate/Dose Change - Provider: Simi Johnson, RN)1999 (Hold - Provider: Brooklyn Meraz RN - Reason: Order parameters not met)2009 (Restarted - Provider: Brooklyn Meraz RN)2049 (Hold - Provider: Brooklyn Meraz RN - Reason: Order parameters not met)2114 (Restarted - Provider: Brooklyn Meraz RN)2139 (Hold - Provider: Brooklyn Meraz RN - Reason: Order parameters not met) 0736 (Canceled Entry - Provider: Araceli Green RN - Reason: Medication Discontinued - Comment: Med previously stopped, see MAR) PRN Medication Order 11/14/2021 11/15/2021 11/16/2021 acetaminophen (Tylenol) tablet 650 mg (CANCELED) 650 mg, Oral, EVERY 6 HOURS PRN, Starting on 11/14/21 at 2327, Until 11/15/21 at 1035, Pain, Maximum dose of acetaminophen is 4,000 mg from all sources in 24 hours. Both acetaminophen and ibuprofen, if ordered, should be given even when other ordered pain medications are indicated., Routine 2357 (Given - Provider: Stella Kunz RN) 0747 (Given - Provider: Araceli Green RN) dextrose 10% infusion(Linked Group 2) 250 mL, at 1,000 mL/hr, Intravenous, EVERY 30 MIN PRN, Starting on Wed11/14/21 at 2327, Until 11/16/21 at 1725, For BG 50-70 mg/dL: Oral treatment preferred: If able to drink, give 120 mL Juice or Regular (not diet) soda OR If NPO, give 15 gram glucose 40% oral gel massaged into buccal mucosa OR if unconscious or uncooperative, give 25 gram (250 mL) Dextrose 10% IV over 15 minutes per protocol OR, if no IV access, 1 mg Glucagon IM. For BG less than 50 mg/dL: Oral treatment preferred: If able to drink, give 240 mL Juice or Regular (not diet) soda OR If NPO, give 30 gram glucose 40% oral gel massaged in buccal mucosa OR if unconscious or uncooperative, give 25 gram (250 mL) Dextrose 10% IV over 15 minutes per protocol OR, if no IV access, 1 mg Glucagon IM. Recheck BG in 30 minutes. May repeat juice/soda, gel, dextrose or glucagon once per episode. For persistent hypoglycemia, consider longer-acting treatment for the duration of the active insulin. glucagon (Glucagen) (1 mg/mL) injection solution 1 mg(Linked Group 2) 1 mg, Intramuscular, EVERY 30 MIN PRN, Starting on Wed11/14/21 at 2327, Until 11/16/21 at 1725, Low blood sugar, For BG 50-70 mg/dL: Oral treatment preferred: If able to drink, give 120 mL Juice or Regular (not diet) soda OR If NPO, give 15 gram glucose 40% oral gel massaged into buccal mucosa OR if unconscious or uncooperative, give 25 gram (250 mL) Dextrose 10% IV over 15 minutes per protocol OR, if no IV access, 1 mg Glucagon IM. For BG less than 50 mg/dL: Oral treatment preferred: If able to drink, give 240 mL Juice or Regular (not diet) soda OR If NPO, give 30 gram glucose 40% oral gel massaged in buccal mucosa OR if unconscious or uncooperative, give 25 gram (250 mL) Dextrose 10% IV over 15 minutes per protocol OR, if no IV access, 1 mg Glucagon IM. Recheck BG in 30 minutes. May repeat juice/soda, gel, dextrose or glucagon once per episode. For persistent hypoglycemia, consider longer-acting treatment for the duration of the active insulin., Routine glucose (Glutose) 40% oral geL(Linked Group 2) 15-30 g of glucose, Buccal, EVERY 30 MIN PRN, Starting on Wed11/14/21 at 2327, Until Wed11/16/21 at 1725, Low blood sugar, For BG 50-70 mg/dL: Oral treatment preferred: If able to drink, give 120 mL Juice or Regular (not diet) soda OR If NPO, give 15 gram glucose 40% oral gel massaged into buccal mucosa OR if unconscious or uncooperative, give 25 gram (250 mL) Dextrose 10% IV over 15 minutes per protocol OR, if no IV access, 1 mg Glucagon IM. For BG less than 50 mg/dL: Oral treatment preferred: If able to drink, give 240 mL Juice or Regular (not diet) soda OR If NPO, give 30 gram glucose 40% oral gel massaged in buccal mucosa OR if unconscious or uncooperative, give 25 gram (250 mL) Dextrose 10% IV over 15 minutes per protocol OR, if no IV access, 1 mg Glucagon IM. Recheck BG in 30 minutes. May repeat juice/soda, gel, dextrose or glucagon once per episode. For persistent hypoglycemia, consider longer-acting treatment for the duration of the active insulin. 1 tube of Glutose-15 contains 15 grams of glucose (net weight of tube = 37.5 grams.), Routine ibuprofen (Advil) tablet 600 mg 600 mg, Oral, EVERY 6 HOURS PRN, Starting on Wed11/15/21 at 0608, Until Wed11/16/21 at 1725, Pain, Administer orally with milk or food to minimize GI irritation. Maximum dose of 3,200 mg from all sources in 24 hours, Routine isosulfan blue (Lymphazurin) 10 mg/mL subcutaneous injection (CANCELED) ONCE PRN, Starting on Wed11/14/21 at 1644, Until Wed11/16/21 at 1725, Intra-Operative (Intra-Procedure), Routine 164 (Given - Provider: Miladys Anderson MD - Comment: injected into vulva) lidocaine (Xylocaine) 1% (10 mg/mL) injection 3 mg (COMPLETED) 3 mg (0.3 mL), Subcutaneous, ONCE PRN, 1 dose, Starting on Wed11/14/21 at 1310, Until Wed11/14/21 at 1643, for discomfort with PIV insertion, Day of Surgery (Day of Procedure), Routine 164 (Given - Provider: Miladys Anderson MD - Comment: injected into vagina) lidocaine (Xylocaine) 1% (10 mg/mL) injection 3 mg 3 mg (0.3 mL), Subcutaneous, ONCE PRN, 1 dose, Starting on Wed11/14/21 at 2327, Until Wed11/16/21 at 1725, for discomfort with PIV insertion, Recovery (Recovery-Hospital Unit), Routine naloxone (Narcan) (0.4 mg/mL) injection 0.04 mg 0.04 mg, Intravenous, EVERY 5 MIN PRN, 3 doses, Starting on Wed11/14/21 at 1745, Until Wed11/16/21 at 1725, Opioid Reversal, for respiratory rate less than 6 or unresponsive., May repeat every 5 minutes to increase respiratory rate. DO NOT exceed 0.12 mg total dose. Notify anesthesia immediately if administered., Routine ondansetron (pf) (Zofran) (2 mg/mL) injection 4 mg 4 mg, Intravenous, EVERY 30 MIN PRN, 2 doses, Starting on Wed11/14/21 at 1745, Until Wed11/16/21 at 1725, Nausea, Maximum total dose of 8 mg (including OR administration). If multiple antiemetics ordered, use ondansetron first and if ineffective use prochlorperazine second and if ineffective use promethazine ondansetron (pf) (Zofran) (2 mg/mL) injection 4 mg(Linked Group 3) 4 mg, Intravenous, EVERY 8 HOURS PRN, Starting on 11/14/21 at 2327, Until 11/16/21 at 1725, Nausea, May repeat times one in 30 minutes if ineffective. If multiple antiemetics are ordered, use ondansetron first, Recovery (Recovery-Hospital Unit) ondansetron (Zofran) tablet 4 mg(Linked Group 3) 4 mg, Oral, EVERY 8 HOURS PRN, Starting on 11/14/21 at 2327, Until 11/16/21 at 1725, Nausea, Vomiting, If multiple antiemetics are ordered, use ondansetron first. PO Preferred. If patient unable to take PO, may give IV if ordered. May repeat times one in 45 minutes if ineffective., Recovery (Recovery-Hospital Unit), Routine oxyCODONE (Roxicodone) tablet 5 mg 5 mg, Oral, EVERY 4 HOURS PRN, Starting on 11/15/21 at 1032, Until 11/16/21 at 1725, Pain, Routine prochlorperazine (Compazine) (5 mg/mL) injection 10 mg(Linked Group 4) 10 mg, Intravenous, EVERY 6 HOURS PRN, Starting on Wed11/14/21 at 2327, Until 11/16/21 at 1725, Nausea, Vomiting, If multiple antiemetics are ordered, use ondansetron first. If ondansetron ineffective use prochlorperazine. , Recovery (Recovery-Hospital Unit), Routine prochlorperazine (Compazine) tablet 10 mg(Linked Group 4) 10 mg, Oral, EVERY 6 HOURS PRN, Starting on 11/14/21 at 2327, Until 11/16/21 at 1725, Nausea, Vomiting, If multiple antiemetics are ordered, use ondansetron first. If ondansetron ineffective use prochlorperazine. PO Preferred. If patient unable to take PO, may give IV if ordered., Recovery (Recovery-Hospital Unit), Routine sodium chloride 0.9 % (flush) (BD PosiFlush Normal Saline 0.9) flush 5-20 mL 5-20 mL, Intravenous, EVERY 1 MIN PRN, Starting on Wed11/14/21 at 2327, Until 11/16/21 at 1725, flush, Flush pertains to all indwelling lines. Flush per protocol found in the job aid using the link provided on this medication record., Recovery (Recovery-Hospital Unit), Routine Linked Groups Order Group 1: POCT Fingerstick Glucose (CANCELED) Routine, 4 TIMES DAILY BEFORE MEALS & AT BEDTIME, First occurrence on 11/15/21 at 0700, Until Specified, Consider choosing FOUR TIMES A DAY BEFORE MEALS AND AT BEDTIME as frequency for: Patients who have good hypoglycemia awareness: -Patients who are eating meals during the day and sleeping at night -Patient who are otherwise stable And insulin lispro (HumaLOG;Admelog) (100 unit/mL) subcutaneous injection vial 1-4 UnitsJump to med 1-4 Units, Subcutaneous, 3 TIMES DAILY BEFORE MEALS, First dose on 11/15/21 at 0730, Until Discontinued, CORRECTION BOLUS [1-4 Units] Sensitive Sliding Scale (BG in mg/dL): Correction factor 40 (1 unit of insulin is expected to drop the glucose 40 mg/dL) BG 160 - 200 Give 1 unit BG 201 - 240 Give 2 units BG 241 - 280 Give 3 units BG greater than 280, give 4 units and recheck BG in 2 hours. - If recheck BG is LESS than 280, give no insulin and resume schedule - If recheck BG is GREATER than 280, give 4 units and repeat BG in 2 hours (no more than 3 times) & call for new insulin orders. DO NOT hold if NPO, unless specifically directed to do so by written order. Per Blood Glucose Monitoring Policy, re-check a BG of > 240 mg/dL in 2 hours., Routine Group 2: glucose (Glutose) 40% oral geLJump to med 15-30 g of glucose, Buccal, EVERY 30 MIN PRN, Starting on Wed11/14/21 at 2327, Until 11/16/21 at 1725, Low blood sugar, For BG 50-70 mg/dL: Oral treatment preferred: If able to drink, give 120 mL Juice or Regular (not diet) soda OR If NPO, give 15 gram glucose 40% oral gel massaged into buccal mucosa OR if unconscious or uncooperative, give 25 gram (250 mL) Dextrose 10% IV over 15 minutes per protocol OR, if no IV access, 1 mg Glucagon IM. For BG less than 50 mg/dL: Oral treatment preferred: If able to drink, give 240 mL Juice or Regular (not diet) soda OR If NPO, give 30 gram glucose 40% oral gel massaged in buccal mucosa OR if unconscious or uncooperative, give 25 gram (250 mL) Dextrose 10% IV over 15 minutes per protocol OR, if no IV access, 1 mg Glucagon IM. Recheck BG in 30 minutes. May repeat juice/soda, gel, dextrose or glucagon once per episode. For persistent hypoglycemia, consider longer-acting treatment for the duration of the active insulin. 1 tube of Glutose-15 contains 15 grams of glucose (net weight of tube = 37.5 grams.), Routine Or dextrose 10% infusionJump to med 250 mL, at 1,000 mL/hr, Intravenous, EVERY 30 MIN PRN, Starting on Wed11/14/21 at 2327, Until Wed11/16/21 at 1725, For BG 50-70 mg/dL: Oral treatment preferred: If able to drink, give 120 mL Juice or Regular (not diet) soda OR If NPO, give 15 gram glucose 40% oral gel massaged into buccal mucosa OR if unconscious or uncooperative, give 25 gram (250 mL) Dextrose 10% IV over 15 minutes per protocol OR, if no IV access, 1 mg Glucagon IM. For BG less than 50 mg/dL: Oral treatment preferred: If able to drink, give 240 mL Juice or Regular (not diet) soda OR If NPO, give 30 gram glucose 40% oral gel massaged in buccal mucosa OR if unconscious or uncooperative, give 25 gram (250 mL) Dextrose 10% IV over 15 minutes per protocol OR, if no IV access, 1 mg Glucagon IM. Recheck BG in 30 minutes. May repeat juice/soda, gel, dextrose or glucagon once per episode. For persistent hypoglycemia, consider longer-acting treatment for the duration of the active insulin. Or glucagon (Glucagen) (1 mg/mL) injection solution 1 mgJump to med 1 mg, Intramuscular, EVERY 30 MIN PRN, Starting on Wed11/14/21 at 2327, Until Wed11/16/21 at 1725, Low blood sugar, For BG 50-70 mg/dL: Oral treatment preferred: If able to drink, give 120 mL Juice or Regular (not diet) soda OR If NPO, give 15 gram glucose 40% oral gel massaged into buccal mucosa OR if unconscious or uncooperative, give 25 gram (250 mL) Dextrose 10% IV over 15 minutes per protocol OR, if no IV access, 1 mg Glucagon IM. For BG less than 50 mg/dL: Oral treatment preferred: If able to drink, give 240 mL Juice or Regular (not diet) soda OR If NPO, give 30 gram glucose 40% oral gel massaged in buccal mucosa OR if unconscious or uncooperative, give 25 gram (250 mL) Dextrose 10% IV over 15 minutes per protocol OR, if no IV access, 1 mg Glucagon IM. Recheck BG in 30 minutes. May repeat juice/soda, gel, dextrose or glucagon once per episode. For persistent hypoglycemia, consider longer-acting treatment for the duration of the active insulin., Routine Group 3: ondansetron (Zofran) tablet 4 mgJump to med 4 mg, Oral, EVERY 8 HOURS PRN, Starting on Wed11/14/21 at 2327, Until Wed11/16/21 at 1725, Nausea, Vomiting, If multiple antiemetics are ordered, use ondansetron first. PO Preferred. If patient unable to take PO, may give IV if ordered. May repeat times one in 45 minutes if ineffective., Recovery (Recovery-Hospital Unit), Routine Or ondansetron (pf) (Zofran) (2 mg/mL) injection 4 mgJump to med 4 mg, Intravenous, EVERY 8 HOURS PRN, Starting on Wed11/14/21 at 2327, Until Wed11/16/21 at 1725, Nausea, May repeat times one in 30 minutes if ineffective. If multiple antiemetics are ordered, use ondansetron first, Recovery (Recovery-Hospital Unit) Group 4: prochlorperazine (Compazine) tablet 10 mgJump to med 10 mg, Oral, EVERY 6 HOURS PRN, Starting on Wed11/14/21 at 2327, Until 11/16/21 at 1725, Nausea, Vomiting, If multiple antiemetics are ordered, use ondansetron first. If ondansetron ineffective use prochlorperazine. PO Preferred. If patient unable to take PO, may give IV if ordered., Recovery (Recovery-Hospital Unit), Routine Or prochlorperazine (Compazine) (5 mg/mL) injection 10 mgJump to med 10 mg, Intravenous, EVERY 6 HOURS PRN, Starting on Wed11/14/21 at 2327, Until 11/16/21 at 1725, Nausea, Vomiting, If multiple antiemetics are ordered, use ondansetron first. If ondansetron ineffective use prochlorperazine. , Recovery (Recovery-Hospital Unit), Routine documented in this encounter Care Teams Return To Vendor Relationship Specialty Start Date End Date Maricarmen Galvan APRN PCP - General Family Medicine 05/10/18 07/28/23 documented as of this encounter
--- OUTSIDE RECORDS SUMMARY | 2024-02-21 13:25 | XMS_ITS | Encounter Summary ---
Author Organization [facility] Address [facility] [place] [address] Care Team Providers Care Insurance Advisor Name Role Phone Maricarmen Galvan JORGE Primary Care Provider [phone] Encounter Details Date Type Department Care Team (Late st Contact Info) Description 10/14/2021 Telephone Gynecology [place] [address] Geraldine Thompson Social History Tobacco Use Types Packs/Day Years [...] 1:30 PM EST Office Visit Hematology/Oncology at [address] [phone] Imer Baker MD [facility] DR HEMATOLOGY [place] [address] Heidi Cruz APRN [address] [place] [address] DR MEDICAL ONCOLOGY [place], [place] [id number] 03/01/2024 2:00 PM EST Infusion Hematology Oncology at [address] [phone] 03/23/2024 11:30 AM EST TH Visit (TeleHealth) [place] [phone] Tory Willard APRN [facility] [place] [address] documented as of this encounter Visit Diagnoses Not on filedocumented in this encounter Care Teams Insurance Advisor Relationship Specialty Start Date End Date Maricarmen Galvan APRN PCP - General Family Medicine 05/10/18 07/28/23 documented as of this encounter
--- OUTSIDE RECORDS SUMMARY | 2024-02-21 13:25 | XMS_ITS | Encounter Summary ---
Author Organization Formerly [facility] [place] [address] Care Team Providers Care High [employer] Learning Support Teacher Name Role Phone Maricarmen Galvan APRN Primary Care Provider [phone] Encounter Details Date Type Department Care Team (Latest Contact Info) Description 10/02/2021 4:29 PM EDT - 10/02/2021 11:59 PM EDT Hospital [place] [phone] Discharge Disposition: Home Social History Tobacco Use [...] Start Date End Date insulin detemir U-100 (Levemir FlexTouch U-100 Insuln) [...] tablet Take 1,000 mg by mouth daily. gabapentin (NEURONTIN) 600 mg Tablet Every 8 hours. 11/16/2021 omeprazole (PriLOSEC) 20 mg Capsule, Delayed Release(E.C.) Take by mouth. 06/22/2019 09/24/2022 diclofenac (VOLTAREN) 1 % Gel Apply 2 g topically 2 times daily as needed. 100 g 3 08/05/2020 11/16/2021 folic acid (FOLVITE) 400 mcg Tablet Take 400 mcg by mouth daily. 09/24/2022 lansoprazole (PREVACID) 30 mg Capsule, Delayed Release(E.C.) Take 30 mg by mouth daily. 11/14/2021 TRAMADOL HCL (TRAMADOL ORAL) Take 50 mg by mouth every morning. Takes at bedtime if needed. 02/04/2023 PARoxetine (PAXIL) 40 mg tablet Take 20 mg by mouth every morning. 02/04/2023 gabapentin (NEURONTIN) 300 mg capsule Take 600 mg by mouth 3 times daily. 700mg 3xdaily 11/14/2021 leveTIRAcetam (KEPPRA) 500 mg tablet Take 250 mg by mouth 2 times daily. 11/14/2021 documented as of this encounter Plan of Treatment Upcoming Encounters Date Type Department Care Team (Late st Contact Info) Description 03/01/2024 1:30 PM EST Office Visit Hematology/Oncology at [address] [phone] Imer Baker MD [facility] DR [place] [address] Heidi Cruz APRN [address] [place] [address] [place] [address] 03/01/2024 2:00 PM EST Infusion Hematology Oncology at [address] [phone] 03/23/2024 11:30 AM EST TH Visit (TeleHealth) [place] [address] Tory Willard APRN [facility] [place] [address] documented as of this encounter Procedures Procedure Name Priority Date/Time Associated Diagnosis Comments SURGICAL PATHOLOGY REPORT Routine 10/02/2021 4:29 PM EDT documented in this encounter Results * Surgical Pathology Report (10/02/2021 4:29 PM EDT) Final Diagnosis [id number] ? Location: OPW The signing pathologist has (i) examined the relevant preparation(s) for the specimen(s) and (ii) rendered or confirmed the diagnosis(es). . ?Surgical Pathology DIAGNOSIS CONSULTATION CASE Outside slide(s) labeled [id number], collection date 09/16/2021. 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 Dept. of Pathology, [place], [place] SPECIMEN(S) SUBMITTED CONSULTATION CASE A - 1 slide(s) labeled [id number], collection date 09/16/2021. [id number] Report to: [facility] Surgical Pathology Department [facility], [facility], 2nd Floor [address] [place], [place] ??[address] CLINICAL INFORMATION RATE ENGINEER SPECIMEN PROCESSING [facility] ([facility]) pathology slide(s) are reviewed. ??Refer to Diagnosis and Specimen Submitted for specific case information. For the full text of the [facility] report(s) please refer to Non- Documentation Pathology in the electronic health record (eDH). 10/20/2021 4:12 PM EDT [facility] Consult Case 10/02/2021 4:29 PM EDT 10/02/2021 4:29 PM EDT Miladys Anderson MD PATHOLOGY/CYTOLOGY O RDERABLES [facility] [place] [address] documented in this encounter Visit Diagnoses Not on filedocumented in this encounter Care Teams High School Learning Support Teacher Relationship Specialty Start Date End Date Maricarmen Galvan APRN PCP - General Family Medicine 05/10/18 07/28/23 documented as of this encounter
--- OUTSIDE RECORDS SUMMARY | 2024-02-21 13:25 | XMS_ITS | Encounter Summary ---
[place] [address] Care Team Providers Care Grooving Machine Operator Name Role Phone Maricarmen Galvan APRN Primary Care Provider [phone] Reason for Visit * Reason Onset Date Comments Other 10/08/2021 ? If patient has been scheduled for her CT Abdomen & Pelvis Encounter Details Date Type Department Care Team (Late Contact Info) Description 10/08/2021 Telephone Gynecology [place] [phone] Virginia Flores RN Other (? If patient has been scheduled for her CT Abdomen & Pelvis ) Social History Tobacco Use Types Packs/Day Years [...] encounter Miscellaneous Notes * Telephone Encounter - Virginia Flores RN - 10/08/2021 12:44 PM EDT TC to NRV - Diagnostic Brush Sander - Message left on voicemail Patient called asking when she will be scheduled to have a CT. Order and documentation from the Medical Record faxed to [facility] on 10/06/2021 Awaiting return call. documented in this encounter Plan of Treatment Upcoming Encounters Date Type Department Care Team (Late Contact Info) Description 03/01/2024 1:30 PM EST Office Visit Hematology/Oncology at [address] [phone] Imer Baker MD [facility] DR [place] [address] Heidi Cruz APRN [address] [place] [address] [place] [address] 03/01/2024 2:00 PM EST Infusion Hematology Oncology at [address] [phone] 03/23/2024 11:30 AM EST TH Visit (TeleHealth) [place] [address] Tory Willard APRN [facility] [place] [address] documented as of this encounter Visit Diagnoses Not on filedocumented in this encounter Care Teams Grooving Machine Operator Relationship Specialty Start Date End Date Maricarmen Galvan APRN PCP - General Family Medicine 05/10/18 07/28/23 documented as of this encounter
--- OUTSIDE RECORDS SUMMARY | 2024-02-21 13:25 | XMS_ITS | Encounter Summary ---
Author Organization [facility] Address [facility] [place] [address] Care Team Providers Care Laboratory Sampler Name Role Phone Maricarmen Galvan JORGE Primary Care Provider [phone] Encounter Details Date Type Department Care Team (Late Contact Info) Description 10/17/2021 Ancillary Procedure Radiology Library at [facility] [address] [place] [address] Miladys Anderson MD [facility] OBSTETRICS [place] [address] Social History Tobacco Use Types Packs/Day Years [...] 1:30 PM EST Office Visit Hematology/Oncology at [address] [phone] Imer aBker MD [facility] HEMATOLOGY [place] [address] Heidi Cruz APRN [address] [place] [address] DR MEDICAL ONCOLOGY [place], [place] [id number] 03/01/2024 2:00 PM EST Infusion Hematology Oncology at [address] [phone] 03/23/2024 11:30 AM EST TH Visit (TeleHealth) [place] [address] Tory Willard APRN [facility] [place] [address] documented as of this encounter Procedures Procedure Name Priority Date/Time Associated Diagnosis Comments FILM LIBRARY STORAGE ONLY CT ABDOMEN AND PELVIS Routine 10/17/2021 12:00 AM EDT documented in this encounter Results * Film Library- Storage Only CT Abdomen & Pelvis (10/17/2021 12:00 AM EDT) Narrative [facility] - 10/21/2021 3:01 PM EDT This exam is auto-finalizing. It's purpose is for storage only. Miladys Anderson MD IMG FILM LIBRARY ORD ERABLES [place], [place] documented in this encounter Visit Diagnoses Not on filedocumented in this encounter Care Teams Laboratory Sampler Relationship Specialty Start Date End Date Maricarmen Galvan APRN PCP - General Family Medicine 05/10/18 07/28/23 documented as of this encounter
--- OUTSIDE RECORDS SUMMARY | 2024-02-21 13:25 | XMS_ITS | Encounter Summary ---
[place] [address] Care Team Providers Care Washer And Crusher Tender Name Role Phone Maricarmen Galvan APRN Primary Care Provider [phone] Reason for Visit * Reason Onset Date Comments Other 10/06/2021 Order for Tail Board Worker al CT Abd & Pelvis with Contrast - to be done at [facility] Encounter Details Date Type Department Care Team (Late st Contact Info) Description 10/06/2021 Telephone [place] [phone] Virginia Flores V RN Other (Order for External CT Abd & Pelvis with Contrast - to be done at [facility]) Social History Tobacco Use Types Packs/Day Years [...] Telephone Encounter - Virginia Flores RN - 10/06/2021 4:55 PM EDT Order for CT Abdomen & Pelvis with contrast to be done externally at [facility] written by Dr Anderson. Order for CT faxed to [facility] along with demographics and Insurance cards - faxed to [facility] Radiology - CT Dept. documented in this encounter Plan of Treatment Upcoming Encounters Date Type Department Care Team (Late st Contact Info) Description 03/01/2024 1:30 PM EST Office Visit Hematology/Oncology at [address] [phone] Imer Baker MD [facility] DR HEMATOLOGY [place] [address] Heidi Cruz APRN [address] [place] [address] MEDICAL ONCOLOGY [place], [place] [address] 03/01/2024 2:00 PM EST Infusion Hematology Oncology at [address] [phone] 03/23/2024 11:30 AM EST TH Visit (TeleHealth) [place] [address] Tory Willard APRN [facility] DR [place] [address] documented as of this encounter Visit Diagnoses Not on filedocumented in this encounter Care Teams Washer And Crusher Tender Relationship Specialty Start Date End Date Maricarmen Galvan APRN PCP - General Family Medicine 05/10/18 07/28/23 documented as of this encounter
--- OUTSIDE RECORDS SUMMARY | 2024-02-21 13:25 | XMS_ITS | Encounter Summary ---
Author Organization Formerly [facility] [place] [address] Care Team Providers Care Electronics Technician Name Role Phone Maricarmen Galvan JORGE Primary Care Provider [phone] Encounter Details Date Type Department Care Team (Late st Contact Info) Description 12/16/2021 Telephone [place] [address] Ele Moya Social History Tobacco Use Types Packs/Day Years [...] PM EST Office Visit Hematology/Oncology at [address] [phone] Imer Baker MD [facility] [address] HEMATOLOGY [place] [address] Heidi Cruz APRN [address] [place] [address] DR MEDICAL ONCOLOGY [place], [place] [address] 03/01/2024 2:00 PM EST Infusion Hematology Oncology at [address] [phone] 03/23/2024 11:30 AM EST TH Visit (TeleHealth) [place] [address] Tory Willard APRN [facility] [place] [address] documented as of this encounter Visit Diagnoses Not on filedocumented in this encounter Care Teams Electronics Technician Relationship Specialty Start Date End Date Maricarmen Galvan APRN PCP - General Family Medicine 05/10/18 07/28/23 documented as of this encounter
--- OUTSIDE RECORDS SUMMARY | 2024-02-21 13:25 | XMS_ITS | Encounter Summary ---
Author Organization [facility] [place] [address] Care Team Providers Care Packing And Final Assembly Supervisor Name Role Phone Maricarmen Galvan APRN Primary Care Provider [phone] Encounter Details Date Type Department Care Team (Late st Contact Info) Description 11/12/2021 Telephone Gynecology [place] [phone] Stella Blanca RN Social History Tobacco Use Types Packs/Day [...] encounter Miscellaneous Notes * Telephone Encounter - Stella Blanca RN - 11/13/2021 3:28 PM EDT Called and spoke with [facility] Specialty clinics. They are faxing the EKG result from this morning. * Telephone Encounter - Stella Blanca RN - 11/12/2021 2:11 PM EDT Called and spoke with patient. She would like to have the EKG done at [facility]. Called [facility]. They can see the patient anytime tomorrow. Faxed the order to the Multispecialty clinic at [phone]. Sent a note that we need the results faxed to us at [phone] before her surgery on 11/14. They will call the patient to schedule the patient for tomorrow. * Telephone Encounter - Stella Blanca RN - 11/12/2021 1:02 PM EDT ----- Message from Meredith Nash MD sent at 11/08/2021 10:50 AM EDT ----- Regarding: Patient needs preop EKG Can you please call this patient to make sure she gets an EKG done prior to her surgery with Dr. Anderson this coming Tuesday 11/14? Thanks! Meredith documented in this encounter Plan of Treatment Upcoming Encounters Date Type Department Care Team (Late st Contact Info) Description 03/01/2024 1:30 PM EST Office Visit Hematology/Oncology at [address] [phone] Imer Baker MD [facility] DR [place] [address] Heidi Cruz INDUSTRIAL PSYCHOLOGY TEACHER [address] [place] [address] [place] [address] 03/01/2024 2:00 PM EST Infusion Hematology Oncology at [address] [phone] 03/23/2024 11:30 AM EST TH Visit (TeleHealth) [place] [address] Tory Willard APRN [facility] [place] [address] documented as of this encounter Visit Diagnoses Not on filedocumented in this encounter Care Teams Packing And Final Assembly Supervisor Relationship Specialty Start Date End Date Maricarmen Galvan, JORGE PCP - General Family Medicine 05/10/18 07/28/23 documented as of this encounter
--- OUTSIDE RECORDS SUMMARY | 2024-02-21 13:25 | XMS_ITS | Encounter Summary ---
Author Organization [facility] [place] [address] Care Team Providers Care Technical Applications Scientist Name Role Phone Maricarmen Galvan APRN Primary Care Provider [phone] Encounter Details Date Type Department Care Team (Late Contact Info) Description 12/15/2021 Telephone [place] [phone] Ajay Montiel Social History Tobacco Use Types [...] * Telephone Encounter - Ajay Montiel - 12/15/2021 3:59 PM EDT Called patient to schedule EGD, needs to be coordinated with an ultrasound, if possible please jordyn Moss for my learning ( I am working with Mitali on it) documented in this encounter Plan of Treatment Upcoming Encounters Date Type Department Care Team (Late Contact Info) Description 03/01/2024 1:30 PM EST Office Visit Hematology/Oncology at [address] [phone] Imer aBker MD [facility] DR HEMATOLOGY [place] [address] Heidi Cruz, [address] [place] [address] 03/01/2024 2:00 PM EST Infusion Hematology Oncology at [address] [phone] 03/23/2024 11:30 AM EST TH Visit (TeleHealth) [place] [address] Tory Willard CHOKER SETTER [facility] [place] [address] documented as of this encounter Visit Diagnoses Not on filedocumented in this encounter Care Teams Technical Applications Scientist Relationship Specialty Start Date End Date Maricarmen Galvan APRN PCP - General Family Medicine 05/10/18 07/28/23 documented as of this encounter
--- OUTSIDE RECORDS SUMMARY | 2024-02-21 13:25 | XMS_ITS | Encounter Summary ---
Author Organization Formerly [facility] Address [facility] [place] [address] Care Team Providers Care Cream Maker Name Role Phone Maricarmen Galvan GAME ARTIST Primary Care Provider [phone] Reason for Visit * Reason Comments Establish Care Malignant neoplasm * Consultation (Routine) - Closed Specialty Diagnoses / Procedures Referred By Anna macias Referred To Contact Gynecology Oncology Diagnoses Malignant neoplasm of vulva Solange Fuentes DO [address] [place] [address] [place] [address] [facility] [place] Billing Clerk [address] [place] [address] Referral ID Status Reason Start Date Expiration Date V isits Requested Visits Authorized [id number] Closed Consult, Test & Treat PCP Updated and/or Approved 09/25/2021 09/25/2022 1 1 Encounter Details Date Type Department Care Team (Late st Contact Info) Description 10/01/2021 3:45 PM EDT Office Visit Gy[place] [address] Miladys Anderson MD [facility] OBSTETRICS [place] [address] Vulvar cancer; Transient global amnesia; Psoriatic arthritis; Type 2 diabetes mellitus without complication, without long-term current use of insulin; Vulvar lesion; Pre-op evaluation; Social anxiety disorder Social History Tobacco Use Types Packs/Day Years [...] Sign Reading Time Taken Comments Blood Pressure 124/69 10/01/2021 3:47 PM EDT Pulse 86 10/01/2021 3:47 PM EDT Temperature 36.4 ??C (97.6 ??F) 10/01/2021 3:47 PM ED T Respiratory Rate 16 10/01/2021 3:47 PM EDT Oxygen Saturation 99% 10/01/2021 3:47 PM EDT Inhaled Oxygen Concentration - - Weight 52.1 kg (114 lb 13.8 oz) 10/01/2021 3:47 PM EDT Height 153.7 cm (5' 0.5) 10/01/2021 3:47 PM EDT Body Mass Index 22.06 10/01/2021 3:47 PM EDT documented in this encounter Progress Notes * Miladys Anderson MD - 10/01/2021 4:00 PM EDT Images from the original note were not included. GYNECOLOGIC ONCOLOGY NEW PATIENT CONSULTATION Date: 09/30/2021 Name: Shereen Vega : 1950 CSN: [id number] Patient Care Team: Patient Care Team: Maricarmen Galvan APRN as PCP - General (Family Medicine) Dr Solange Fuentes, Ship Rigger Apprentice [facility] ASSESSMENT/PLAN Assessment Vulvar lesion Vulvar cancer Pre op evaluation - CT, labs in PAT The patient and her and I discussed the significance of her physical exam findings with a less than 2 cm lesion of the right vulva with associated colposcopic abnormalities involving the midline structures of the vulva. We discussed the need for a radical excision of this area likely involving resection of the clitoris, with assessment of the lymph nodes which I have recommended to be performed via a sentinel lymph node approach. I discussed with the patient and her the rationale for sentinel lymph node assessment, and the importance of information gained from lymph node evaluation with regards to prognosis and the need for further treatment including possible chemotherapy and radiation. We discussed the surgical procedure anticipated length of hospitalization and recovery with an inpatient stay anticipated for 1-2 nights. Further we discussed the impact of the patient's diabetes, psoriatic arthritis and limited mobility on tissue healing and possible risk of complication. Specifically we discussed the risks of infection bleeding recurrence wound separation lymphedema and blood clots. I will have the patient return for discussion either in person or via video, after the results of her CAT scan to better plan for the next step in her management of her vulvar cancer. I anticipate this will include a radical vulvectomy and bilateral sentinel lymph node assessment via inguinofemoral dissection. The patient and her 's questions were answered. Psoriatic arthritis hypothyroid Diabetes type 2 Anxiety hyperlipidemia Stable under care primary care provider Return to Clinic: For discussion of CT results, and to plan surgery anticipated radical vulvectomy,bilateral sentinel lymph node assessment Admission into hospital FULL NOTE CHIEF COMPLAINT Vulvar cancer HISTORY OF PRESENT ILLNESS Shereen Vega is [...] Not sexually active, no bleeding. 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 No other weight loss, change in appetite or change in energy. Performance Status: 1 Oncology History She denies [...] of my consultation today with the patient. Vulvar biopsy 09/16/21 PAST HISTORY Past Medical [...] ??? Long-term use of high-risk medication Z79.899 on MTX in past for psoriatic arthritis Past Surgical History Past Surgical History: Procedure Laterality Date ??? APPENDECTOMY ??? OVARIAN CYST SURGERY right removed ??? PRO UPPER GI ENDOSCOPY, DIAGNOSTIC had hoarse throat N/A 07/25/2019 EGD, UPPER GI ENDOSCOPY performed by Azam Dee MD at [facility] ENDOSCOPY ??? 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 insulin detemir [...] daily as needed. 100 g 3 ??? freestyle lite strips USE TO [...] insulin aspart U-100 (NOVOLOG) Insulin Pen Inject 30 Units subcutaneously daily. ??? magnesium chloride (SLOW-MAG ORAL) [...] Daily Manny Lugo MD PHYSICAL EXAM BP 124/69 (Patient Position: Sitting) Pulse 86 Temp 36.4 ??C (97.6 ??F) (Tympanic) Resp 16 Ht 153.7 cm (5' 0.5) Wt 52.1 kg (114 lb 13.8 oz) SpO2 99% BMI 22.06 kg/m?? Exam: GENERAL: Well-appearing, female in no acute distress. HENT: Moist mucous membranes. No adenopathy. NECK: NO masses of thyroid or assymetry. EVERETT SURVEY: NO masses or asymmetry or tenderness. CARDIOVASCULAR: Chest expands symmetrically without any labored breathing. BREASTS: No masses, adenopathy or asymmetry AXILLA: No masses or adnoepathy ABDOMEN: Soft, nontender, nondistended. No HSM, tenderness or ascites. No masses or rebound. Well-healed scar. EXTREMITIES: Warm, well perfused. No edema. SKIN: NO rashes or excoriations NEURO: CN 2-12 grossly intact and the patient responds to questions appropriately in [place]. PELVIC EXAM: Vulva: Normal female external genitalia. Normal urethra. Vagina: Normal pink mucosa. No discharge. Cervix: No lesions, non-tender. Pap smear done today Uterus: Mobile, non-tender. Adnexa: No palpable masses. Rectal: Rectovaginal septum smooth. No masses. Normal rectal tone.. Physical Exam Genitourinary: PROCEDURES Colposcopy: Patient was counseled regarding colposcopy and biopsies. The risks, benefits and alternatives were discussed and informed consent was signed. The vulva/vagina was visualized and swabbed with dilute acetic acid and visualized under colposcopic magnification. The exam was adequate. Findings: Raised area left vulva see diagram Biopsies: none The patient tolerated the procedure well. There were no complications. Genetic Testing n/a Advance Directives none ASSESSMENT/PLAN I have reviewed old records and notes from [facility] and Care Everywhere, as appropriate, in summarizing the patient's prior relevant history to make my assessment and to formalize my recommended plan of care. See full assessment and plan summary at top of note. Signed, Miladys Anderson MD 09/30/2021 * Diana Bello LNA - 10/01/2021 3:45 PM EDT Examination chaperoned by TAMMY CHOW. documented in this encounter Plan of Treatment Upcoming Encounters Date Type Department Care Team (Late st Contact Info) Description 03/01/2024 1:30 PM EST Office Visit Hematology/Oncology at [address] [phone] Imer Baker MD [facility] DR HEMATOLOGY [place] [address] [place] [address] 03/01/2024 2:00 PM EST Infusion Hematology Oncology at [address] [phone] 03/23/2024 11:30 AM EST TH Visit (TeleHealth) [place] [address] Tory Willard [facility] [place] [address] documented as of this encounter Procedures Procedure Name Priority Date/Time Associated Diagnosis Comments HEMOGRAM Routine 10/01/2021 5:07 PM EDT Vulvar cancer DIFFERENTIAL, AUTOMATED Routine 10/02/19 5:07 PM EDT Vulvar cancer HC VENIPUNCTURE Routine 10/01/2021 5:07 PM EDT Vulvar cancer HC CBC,PLT & AUTO DIFF Routine 5:07 PM EDT Vulvar cancer HC UREA NITROGEN, SERUM Routine 10/02/19 5:07 PM EDT Vulvar cancer ELECTROLYTES PANEL Routine 10/01/2021 5: 07 PM EDT Vulvar cancer CYTOPATHOLOGY GYNECOLOGICAL Routine 10/01/2021 4:57 PM EDT Vulvar cancer HPV Routine 10/01/2021 3:45 PM EDT FORESTRY EXTENSION SPECIALIST CYTOLOGY INTERPRETATION Routine 10/01/2021 3:45 PM EDT FORESTRY EXTENSION SPECIALIST CYTOLOGY FINAL REPORT Routine 10/01/2021 3:45 PM EDT documented in this encounter Results * (ABNORMAL) Differential, Automated (10/01/2021 5:07 PM EDT) Pathologist [facility] Neutrophil % 51.3 % [facility] Neutrophil Absolute 2.98 1.70 - 6.10 x10(3)/ L [facility] Lymph % 28.1 % [facility] Lymphocytes Abs 1.6 0.9 - 3.2 x10(3)/ L [facility] Monocyte % 10.2 % [facility] Monocyte Abs 0.6 0.3 - 0.9 x10(3)/[facility] Eos % 9.1 % [facility] Eosinophils Abs 0.5(H) 0.0 - 0.4 x10(3)/[facility] Basophil % 1.0 % [facility] Baso Absolute 0.1 0.0 - 0.1 x10(3)/ L [facility] Immature Gran % 0.30 % [facility] Comment: Immature granulocytes(IG's)percentage and absolute count will include metamyelocytes, myelocytes, and promyelocytes. Blood smears from CBCs yielding IG's will be scanned manually for concordance. If this scan disagrees with the automated IG or if promyelocytes are noted, a manual differential will be performed. Immature Gran Absolute 0.02 0.00 - 0.04 x10(3)/ L [facility] Blood 10/01/2021 5:07 PM EDT 10/01/2021 5:16 PM EDT Narrative Resulting Agency Comment Spec In Lab Miladys Anderson MD HEMATOLOGY ORDERABLE S [facility] [place] [address] * (ABNORMAL) Hemogram (10/01/2021 5:07 PM EDT) [facility] White Blood Cell 5.8 4.0 - 9.5 x10(3)/mc L [facility] Red Blood Cell 4.40 4.00 - 5.21 x10(6)/mc L [facility] Hemoglobin 13.1 11.7 - 15.5 g/dL [facility] Hematocrit 38.5 35.7 - 45.8 % [facility] Mean Cell Volume 87.5 82.6 - 94.4 fL [facility] Mean Cell Hemoglobin 29.8 27.1 - 32.0 pg [facility] Mean Cell Hemoglobin Concentration 34.0 31.7 - 35.0 g/dL [facility] Platelet 96(L) 145 - 357 x10(3)/ L [facility] RDW Standard Deviation 49.8(H) 37.0 - 46.0 fL [facility] RDW coefficient of variation 15.8(H) 11.5 - 14.1 % [facility] Mean Platelet Volume 10.5 7.6 - 12.9 fL [facility] NRBC% auto 0.0 % [facility] NRBC Absolute 0.000 0.000 - 0.000 x10(3)/[facility] Blood 10/01/2021 5:07 PM EDT 10/01/2021 5:16 PM EDT Narrative Resulting Agency Comment Spec In Lab Miladys Anderson MD HEMATOLOGY ORDERABLE S [facility] [place] [address] * Creatinine (10/01/2021 5:07 PM EDT) Creatinine 0.95 0.70 - 1.20 mg/dL [facility] Est Glomerular Filtration Rate 64 >=60 mL/min/1. 73 m?? [facility] Comment: This patient's estimated GFR [...] and symptoms in addition to eGFR. Blood 10/01/2021 5:07 PM EDT 10/01/2021 5:16 PM EDT Narrative Resulting Agency Comment Spec In Lab Miladys Anderson MD CHEMISTRY ORDERABLES Performing Organization Address [facility]/ZIP Co de Phone Number [facility] [place] [address] * BUN (10/01/2021 5:07 PM EDT) Blood Urea Nitrogen 12 8 - 18 mg/dL [facility] Blood 10/01/2021 5:07 PM EDT 10/01/2021 5:16 PM EDT Narrative Resulting Agency Comment Spec In Lab Miladys Anderson MD CHEMISTRY ORDERABLES Performing Organization Address [facility] Co de Phone Number [facility] [place] [address] * Electrolytes panel (10/01/2021 5:07 PM EDT) Sodium 142 135 - 145 mmol/L [facility] Potassium 4.1 3.5 - 5.0 mmol/L [facility] Comment: Please note: ??Patients with WBC >100,000 may have falsely elevated Potassium levels. ??For accurate Potassium quantification in these patients send serum separator tube (gold top) for subsequent determinations. ??Contact the Clinical Chemistry Laboratory if there are any questions. Chloride 105 98 - 107 mmol/L [facility] Carbon Dioxide 28 22 - 31 mmol/L [facility] Anion Gap 9 5 - 15 mmol/L [facility] Blood 10/01/2021 5:07 PM EDT 10/01/2021 5:16 PM EDT Narrative Resulting Agency Comment Spec In Lab Miladys Anderson MD CHEMISTRY ORDERABLES Performing Organization Address [facility]/ZIP Co de Phone Number [facility] [place] [address] * Cytopathology Gynecological (10/01/2021 4:57 PM EDT) AP Specimen 10/01/2021 4:57 PM EDT 10/01/2021 4:57 PM EDT Narrative [facility] - 10/01/2021 4:57 PM EDT Specimen requisition ordered. ??Separate Pathology report to follow Miladys Anderson MD PATHOLOGY/CYTOLOGY O RDERABLES Performing Organization Address City/[facility] Co de Phone Number [facility] [place] [address] * Ship Rigger Apprentice Cytology Final Report (10/01/2021 3:45 PM EDT) Ship Rigger Apprentice Cytology Final Report [id number] ? Location: 3K The signing pathologist has (i) examined the relevant preparation(s) for the specimen(s) and (ii) rendered or confirmed the diagnosis(es). . ? Ship Rigger Apprentice Final DIAGNOSIS Normal Negative for intraepithelial lesion or malignancy (NILM). For consensus guidelines for the management of cervical cancer screening test results, please see: ?? http://www.asccp.o rg . Electronically signed by: ?Sharita CT(ASCP), Hailey E Verified: ??10/09/2021 10:56 ??Educational Administration Teacher Performed at: ??-[facility] [place], [place], [place] DISCUSSION Atrophic pattern sample. HPV RESULTS [...] Clinical Genomics and Advanced Technology (CGAT) at [facility]. ? - Ron Sam, PhD, [facility], Director-CGAT STATEMENT OF ADEQUACY Specimen submitted is satisfactory. Endocervical component present. CLINICAL INFORMATION HPV Option: ?Concurrent HPV and Pap CT/NG Option: ?No Preparation: ? Liquid based Pap Specimen Source: ? Cervical/Endocervi adiel LMP: ? n/a Hysterectomy: ?No : ?No : ?No I.U.D.: ?No Pelvic Radiation: ?No Hist Abnl Pap/Biopsy: ?No Prior FORESTRY EXTENSION SPECIALIST Therapy: ? No Hist of HPV Vaccine: ? No . CLINICAL INFORMATION ICD Diagnosis: ? Z85.40 Personal history of malignant neoplasm of unspecified female genital organ Clinical Data, Significant Therapy and Clinical Impression ?? : ?_ This Pap Test has been evaluated with the assistance of the InsideTrackPrep Pap Test Imaging System. Note: The Pap test is a screening test for cervical cancer with an inherent false-negative rate dependent upon several variables. For further information please contact the [facility]. Reference: David CHAPA. Denitrator of Pap Smear Results. In: Lucia BS, Judd HEATH, ed. The Pap Smear. [facility]: Antonio, 2002: 71-77. [facility] 10/01/2021 3:45 PM EDT Miladys Anderson MD PATHOLOGY/CYTOLOGY O MAIA Performing Organization Address [facility] Co de Phone Number [facility] [place] [address] * FORESTRY EXTENSION SPECIALIST Cytology Interpretation (10/01/2021 3:45 PM EDT) Ship Rigger Apprentice Cytology Interpretation [facility] Comment:Ship Rigger Apprentice Cytology Final R eport Ship Rigger Apprentice Cytology Comment Present [facility] Endocervical Component Present [facility] AP Specimen 10/01/2021 3:45 PM EDT 10/09/2021 10:56 AM EDT Miladys Anderson MD PATHOLOGY/CYTOLOGY O RDERAANURAG Performing Organization Address City/[facility] Co de Phone Number [facility] [place] [address] * HPV (10/01/2021 3:45 PM EDT) HPV16 NEGATIVE NEGATIVE [facility] HPV 18 NEGATIVE NEGATIVE [facility] HPV Other HR NEGATIVE NEGATIVE [facility] HPV Interpretation See Comment [facility] Comment: NEGATIVE for high-risk HPV [...] Resulting Agency Comment Spec In Lab Miladys Andesron MD PATHOLOGY/CYTOLOGY O RDERAANURAG Performing Organization Address City/State/[facility] Co de Phone Number [facility] [place] [address] documented in this encounter Visit Diagnoses Diagnosis Vulvar cancer Malignant neoplasm of vulva, unspecified site Transient global amnesia Psoriatic arthritis Psoriatic arthropathy Type 2 diabetes mellitus without complication, without long-term current use of insulin Vulvar lesion Other specified noninflammatory disorder of vulva and perineum Pre-op evaluation Preoperative examination, unspecified Social anxiety disorder Social phobia documented in this encounter Care Teams Cream Maker Relationship Specialty Start Date End Date Maricarmen Galvan APRN PCP - General Family Medicine 05/10/18 07/28/23 documented as of this encounter
--- OUTSIDE RECORDS SUMMARY | 2024-02-21 13:25 | XMS_ITS | Encounter Summary ---
Author Organization [facility] [place] [address] Care Team Providers Care Supervisor Logging Name Role Phone Maricarmen Galvan JORGE Primary Care Provider [phone] Encounter Details Date Type Department Care Team (Late Contact Info) Description 12/21/2021 Orders [place] [address] Tory Willard [facility] [place] [address] Hepatic cirrhosis, unspecified hepatic cirrhosis type, unspecified [...] 1:30 PM EST Office Visit Hematology/Oncology at [address] [phone] Imer Baker MD [facility] DR HEMATOLOGY [place] [address] Heidi Cruz [address] [place] [address] 03/01/2024 2:00 PM EST Infusion Hematology Oncology at [address] [phone] 03/23/2024 11:30 AM EST TH Visit (TeleHealth) [place] [address] Tory Willard APRN [facility] [place] [address] documented as of this encounter Visit Diagnoses Diagnosis Hepatic cirrhosis, unspecified hepatic cirrhosis type, unspecified whether ascites present documented in this encounter Care Teams Supervisor Logging Relationship Specialty Start Date End Date Maricarmen Galvan APRN PCP - General Family Medicine 05/10/18 07/28/23 documented as of this encounter
--- OUTSIDE RECORDS SUMMARY | 2024-02-21 13:25 | XMS_ITS | Encounter Summary ---
Author Organization [facility] Address [facility] [place] [address] Care Team Providers Care Special Order Jeweler Name Role Phone Maricarmen Galvan APRN Primary Care Provider [phone] Encounter Details Date Type Department Care Team (Latest Contact Info) Description 12/17/2021 Multidisciplinary Ca re Committee [place] [address] Zulma Deluna MD [facility] DR [place] [address] Social History Tobacco Use Types Packs/Day Years Used Date Smoking Tobacco: Never Smokeless Tobacco: Never Alcohol Use Standard Drinks/Week Comments No 0 (1 standard drink = 0.6 oz pur e alcohol) Sex and Gender Information Value Date Recorded Sex Assigned at Not on file Gender Identity Not on file Sexual Orientation Not on file documented as of this encounter Progress Notes * Zulma Deluna MD - 12/17/2021 1:29 PM EDT Presenting symptoms: vulvar itching, OSH biopsy 08/2021 demonstrates invasive squamous cell carcinoma with depth of invasion at least 1.1mm. 1x1.5cm raised irregular lesion on the right labia, colposcopy performed in office demonstrated peripheral acetowhite epithelium extending to midline Imaging: Preop CT scan without any metastasis however hypodensities in right hepatic lobe Labs: NA Preop path: as above Surgery performed: 11/14/2021 partial RIGHT radical vulvectomy, sentinel lymph node dissection Findings: 2 x 1.5 cm lateral lesion involving right labia majora, mobile with associated leukoplakia up to clitoral veloz and inferiorly to edge labia majora, cervix in situ and vagina smooth No enlarged lymph node, sentinel lymph node RIGHT identified and negative on frozen section. Path: ??? Invasive keratinizing SCC, moderately differentiated (G2), 2.0cm tumor. 7mm depth of tumor invasion. Margins negative for carcinoma. Closest margin 12mm away from invasive carcinoma. 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 No LVI ??? 0/1 right sentinel lymph node, 0/3 right superficial inguinal lymph node Recommendation (including any genetics recs): 71yo with FIGO Stage IB vulvar squamous cell carcinoma. Observation. documented in this encounter Plan of Treatment Upcoming Encounters Date Type Department Care Team (Late st Contact Info) Description 03/01/2024 1:30 PM EST Office Visit Hematology/Oncology at [address] [phone] Imer Baker MD [facility] DR HEMATOLOGY [place] [address] Heidi Cruz ACCESS COORDINATOR [address] [place] [address] [place] [address] 03/01/2024 2:00 PM EST Infusion Hematology Oncology at [address] [address] 03/23/2024 11:30 AM EST TH Visit (TeleHealth) [place] [address] Tory iWllard APRN [facility] [place] [address] documented as of this encounter Visit Diagnoses Not on filedocumented in this encounter Care Teams Special Order Jeweler Relationship Specialty Start Date End Date Maricarmen Galvan APRN PCP - General Family Medicine 05/10/18 07/28/23 documented as of this encounter
--- OUTSIDE RECORDS SUMMARY | 2024-02-21 13:25 | XMS_ITS | Encounter Summary ---
Author Organization [facility] Address [facility] [place] [address] Care Team Providers Care Top Loader Name Role Phone Maricarmen Galvan JORGE Primary Care Provider [phone] Encounter Details Date Type Department Care Team (Late st Contact Info) Description 10/31/2021 10:30 AM EDT TH Visit (TeleHealth) [place] [phone] Social History Tobacco Use Types Packs/Day Years [...] PM EST Office Visit Hematology/Oncology at [address] [phone] Imer Baker MD [facility] DR HEMATOLOGY [place] [address] Heidi Cruz APRN [address] [place] [address] DR MEDICAL ONCOLOGY [place], [place] [address] 03/01/2024 2:00 PM EST Infusion Hematology Oncology at [address] [phone] 03/23/2024 11:30 AM EST TH Visit (TeleHealth) [place] [address] Tory Willard APRN [facility] [place] [address] documented as of this encounter Visit Diagnoses Not on filedocumented in this encounter Care Teams Top Loader Relationship Specialty Start Date End Date Maricarmen Galvan APRN PCP - General Family Medicine 05/10/18 07/28/23 documented as of this encounter
--- OUTSIDE RECORDS SUMMARY | 2024-02-21 13:25 | XMS_ITS | Encounter Summary ---
[place] [address] Care Team Providers Care Automotive Service Director Name Role Phone Maricarmen Galvan APRN Primary Care Provider [phone] Reason for Visit * Auth/Cert Specialty Diagnoses / Procedures Referred By Anna macias Referred To Contact Diagnoses Vulvar cancer VULVAR CANCER . Procedures PRO VULVA RESECT, RAD, PART, BILAT NODES PRO INTRAOP SENTINEL LYMPH ID W/DYE INJECTION @VULVECTOMY, RAD,PARTIAL WITH LYMPHADENECTOMY-ANA (WRVU 21.86) INTRAOPERATIVE ID (MAPPING) SENTINEL LYMPH NODE,INCLUDES INJECTION (WRVU 2.5) Miladys Anderson MD [facility] [address] [place] [address] [facility] Referral ID Status Reason Start Date Expiration Date Visits Re quested Visits Authorized [id number] 1 1 Encounter Details Date Type Department Care Team (Late st Contact Info) Description 11/14/2021 2:03 PM EDT Anesthesia Event [place] [address] Lu Nuno MD [facility] [place] [address] Alpesh Guan MD [facility] [place] [address] Anesthesia Record Procedure Summary Procedure Name Responsible Anesthesiologist Anesthesia Start Time Anesthesia Stop Time @VULVECTOMY, RAD,PARTIAL WITH LYMPHADENECTOMY-ANA (WRVU 21.86) (Right: Perineum) Lu Nuno MD 11/14/21 1403 11/14/21 1758 Events Date Time Event Comment 11/14/2021 1403 1403 Start 1404 AN Verify 1404 An Start Data 1412 An Induction 1420 An Intubation 1421 Anesthesia Ready 1509 Break/Relief In I assumed ca re for Break Relief before which we: 1. Identified the patient 2. Identified the responsible provider(s) 3. Reviewed the pertinent medical history 4. Discussed the surgical plan and course 5. Reviewed intra-op anesthesia management and issues during anesthesia 6. Set expectations for the relief (and/or post-procedure) period 7. Allowed opportunity for questions and acknowledgement of understanding JOEY Nance 1526 Break/Relief Out 1706 Handoff Intra-procedure anesthesia care was transferred after review of the patient's history, current anesthetic/surgical status and procedural plan, anticipated issues and expected post-operative course (including disposition.) Betsy Sequeira CRNA 1741 Extubation/LMA Out 1758 an stop data 1758 Recovery or ICU Handoff Deanna ent care was transferred to the destination unit staff after review of the patient's medical history, current anesthetic/surgical status and plan, according to the Provider Handoff Checklist. 1758 Stop Meds Name Total fentaNYL 100 mcg Propofol 160 mg Rocuronium 40 mg PHENYLephrine 560 mcg ePHEDrine 15 mg Ondansetron 4 mg Neostigmine 3 mg Glycopyrrolate 0.4 mg Dexmedetomidine 12 mcg Esmolol 30 mg ceFAZolin 2 g metroNIDAZOLE 500 mg PHENYLephrine INF 1,950 mcg lactated ringers infusion 800 mL * Agents Name O2 Air N2O Sevoflurane (et) * Blood No blood administrations on file. Lines, Drains, and Airways Type Details Placement Removal Incision 11/14/21; 1506; midl ine; lower quadrant; horizontal; lymphadenectomy 11/14/21 1506 by Marquez Romero, HANNA Incision 11/14/21; 1508; midl ine; vagina; other (see comments); partial radical vulvectomy 11/14/21 1508 by Marquez Romero, RN Drain/Device Site 11/14/21; 1614; Righ t; anterior; hip; collapsible closed device (19 Fr Ruddy Drain with Bulb Suction Device); Dr Anderson 11/14/21 1614 by Marquez Romero, RN (RETIRED) Peripheral IV Line - Single Lumen 11/14/21; 1336; cephalic vein (lateral side of arm), right; qbeq-lnd-oswagu catheter system; 20 gauge, 1 in length; Henny RN; distraction, intradermal injection, tolerated well, appears comfortable; 1; cephalic vein (lateral side of arm), left; 11/16/21; 1441 11/14/21 1336 by Conchis Vazquez RN 11/16/21 1441 by Brooklyn Sales, RN ETT Mask Ventilation: Ea sy (1); ETT Type: Cuffed; ETT Size: 7 mm; Mac Blade: 3; Notes: Asleep, Pre-O2, Stylette; Attempts: 1; Laryngoscopy Grade: 2; ETT Placement Verified By: Auscultation, Capnometry; Secured at Teeth: 20 cm; Inserted by: Lyndon SHARPE (visiting airway learner); Removal Date: 11/14/21; Removal Time: 17411/14/21 1420 by Betsy Sequeira, COLOR CONTROL OPERATOR 11/14/21 1741 by Terese Gray CRNA Urethral Catheter 11/14/21; 1600; 10/24 06/13; 1659 11/14/21 1600 by Brooklyn Meraz, HANNA 11/15/21 1659 by Gabriela Coker RN documented in this encounter Social History Tobacco [...] of this encounter OR Notes * Anesthesia Postprocedure Evaluation - Lu Nuno MD - 11/14/2021 6:37 PM EDT Department of Anesthesiology Post-procedure Note Patient: Shereen Vega Procedure Summary Date: 11/14/21 Room / Location: [facility] OR [facility] MAIN OR Anesthesia Start: 1403 Anesthesia Stop: 1757 Procedures: @VULVECTOMY, RAD,PARTIAL WITH LYMPHADENECTOMY-ANA (WRVU 21.86) (Right Perineum) INTRAOPERATIVE ID (MAPPING) SENTINEL LYMPH NODE,INCLUDES INJECTION (WRVU 2.5) (N/A Pelvis) Diagnosis: (VULVAR CANCER) Surgeons: Miladys Anderson MD Responsible Provider: Lu Nuno MD Anesthesia Type: general ASA Status: 3 All Anesthesia Providers: Anesthesiologist: Lu Nuno MD COLOR CONTROL OPERATOR: Betsy Sequeira CRNA; Terese Gray CRNA Vitals Value Taken Time BP 87/60 11/14/21 1830 Temp 36.6 ??C (97.9 ??F) 11/14/21 1800 Pulse 96 11/14/21 1836 Resp 17 11/14/21 1836 SpO2 94 % 11/14/21 183 Pain Level Vitals shown include unvalidated device data. Patient Location: PACU/[facility] Level of Consciousness: Conscious but Sleepy Pain Management: Satisfactory Analgesia PONV: None Cardiovascular Status: Hemodynamically Stable and Hypotension (received treatment) Respiratory Status: Stable Respiratory Status and Supplemental O2 (NC or FM) Postoperative Fluid Status: Intravascular EUvolemia Possible Anesthetic Complications: NONE apparent at time of evaluation Final Primary Anesthesia Type: General (The anesthetic type performed was the same as planned.) Comments: MAP around 60, will start low dose jaimie infusion given this is a significant decline from preop. S/p 1 L IVF intraop, but due to bibasilar crackles on preop exam, want to avoid aggressive fluid resuscitation. Expect pressure to improve as patient wakes. Will monitor Lu Nuno MD * Anesthesia Preprocedure Evaluation - Lu Nuno MD - 10/31/2021 10:49 AM EDT Images from the original note were not included. Pre-Anesthesia Evaluation for: Shereen Vega a 71 y.o. female. Procedure(s): @VULVECTOMY, RAD,PARTIAL WITH LYMPHADENECTOMY-ANA (WRVU 21.86) INTRAOPERATIVE ID (MAPPING) SENTINEL LYMPH NODE,INCLUDES INJECTION (WRVU 2.5) Patient Active Problem List Diagnosis Date Noted [...] 08/22/2002 ??? Cervical spondylosis 08/18/2011 ??? diabetes 2002 ??? Dysosmia 08/18/2011 ??? Gastroesophageal reflux disease [...] ENDOSCOPY performed by Azam Dee MD at [facility] ENDOSCOPY ??? TUBAL LIGATION Social History Tobacco [...] Exam: Preprocedure Vitals Current as of 10/31/21 1049 No BP, pulse, respiration, SpO2, or temperature recorded. Height: Weight: BMI: IBW: Airway Assessment: Mallampati: III TM distance: >3 FB Neck ROM: full Small mouth opening Cardiovascular Assessment: Rhythm: regular Rate: normal Pulmonary Assessment: (+) rales (Bibasilar) Dental Assessment: (+) edentulous Misc Assessment: IV access: Peripheral line Last Filed Perioperative Cognitive Screening Value Time User AD8 Total Score: 2 10/31/2021 10:44 AM Alpesh Guan MD AD8 Informant: Other Informant 10/31/2021 10:44 AM Alpesh Guan MD Anesthesia Plan: ASA 3 general, Patient interviewed and examined. Shereen is a 71 y.o. patient who presents for radical vulvectomyand sentinel lymph node dissection for vulvar cancer. See PCC note below Appropriately NPO. No history of anesthetic complications or family history of major anesthetic complications. No recent respiratory infections, fevers. Labs reviewed Plan for general anesthesia with endotracheal intubation, standard ASA monitors, to PACU following procedure. All patient questions answered and anesthesia consent obtained with discussion of indications, benefits, risks, and alternatives. Lu Nuno MD Attending Anesthesiologist Pager [phone] 11/14/21 Informed Consent: Anesthetic plan and risks discussed with patient. Plan discussed with COLOR CONTROL OPERATOR and attending. Anesthesia Screening Note: Date and Time of Entry: 10/31/2021 4:06 PM Reason for Evaluation: Surgeon Request Screening Visit Type: Video Conference Additional/Outside Records Requested? Did not request medical information from outside organization. Findings, Assessment and Plan: 71 y.o. female with PMH significant for HTN, T2DM, hypothyroidism, psoriatic arthritis, cervical spondylosis, transient global amnesia, cirrhosis (attributed to MTX), and vulvar squamous cell carcinoma scheduled for radical vulvectomy and lymph node biopsy w/ Dr. Anderson. ?? 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 SURGICAL HISTORY: -Appendectomy -Ovarian cyst surgery -Upper GI endoscopy -Tubal ligation ?? ANESTHETIC HISTORY: No reported prior problems with anesthesia ?? PRIOR CARDIOPULMONARY TESTING: -EKG on 07/29/2018: NSR, moderate voltage criteria for LVH ?? Allergies reviewed Labs reviewed Meds reviewed ?? FUNCTIONAL EXERCISE TOLLERANCE: >4 METs ? ASSESSMENT: 71 y.o. female with PMH significant for HTN, T2DM, hypothyroidism, psoriatic arthritis, cervical spondylosis, transient global amnesia, cirrhosis (attributed to MTX), and vulvar squamous cell carcinoma scheduled for radical vulvectomy and lymph node biopsy w/ Dr. Anderson. ?? Patient has not had any issues with bleeding or complications from anesthesia during her prior surgeries. 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 Of note, patient had 80% stenosis of the LAD documented in 2009; however, revascularization was delayed in favor of medical management. A nuclear stress test in 2019 revealed lack of perfusion defect with normal LVEF function. Therefore, will recommend EKG prior to surgery butno need for further stress testing as patient remains asymptomatic. D/t her age and AD8 screen 2, patient is at slightly increased risk of delirium. CONSIDERATIONS -preop EKG (ordered) -Avoid delirium-inducing medications -Consider intraoperative sed monitor to minimize anesthetic exposure ? Rhiannon Vivar MD 10/31/2021 Perioperative Care Clinic phone extension: [phone] Attending Assessment: I personally reviewed the patient's EMR and discussed the history, current clinical status, and perioperative management with the resident, and patient . Alpesh Guan MD 11/08/2021 ?? Preoperative Geriatric Vulnerability Screen: Surgery Details: Surgeon: Miladys Anderson MD Planned Procedure: @VULVECTOMY, RAD,PARTIAL WITH LYMPHADENECTOMY-ANA (WRVU 21.86), INTRAOPERATIVE ID (MAPPING) SENTINEL LYMPH NODE,INCLUDES INJECTION (WRVU 2.5) Date of Planned Procedure: 11/14/2021 Final Risk Assessment: Is the patient high risk?: Yes Screening Results: Age >= 85: No Impaired Cognition per Mini-Cog: Not assessed Impaired Cognition per AD8: Yes Frailty Screen: Not assessed Impaired Mobility: : phoneinterview. Delirium Risk: Cognitive Impairment / Frailty Screen Positive in Clinic Impaired Functional Status: No impairment/totally independent Malnutrition: No Difficulty Swallowing: No Palliative Care Consult may be indicated: Not assessed Additional Notes/Comments: Patient would like to speak with surgeon again: @[email or web address]@@NOTEBPA([id number])@ documented in this encounter Plan of Treatment Upcoming Encounters Date Type Department Care Team (Late st Contact Info) Description 03/01/2024 1:30 PM EST Office Visit Hematology/Oncology at [address] [phone] Imer Baker MD [facility] [address] [place] [address] Heidi Cruz, [address] [place] [address] 03/01/2024 2:00 PM EST Infusion Hematology Oncology at [address] [phone] 03/23/2024 11:30 AM EST TH Visit (TeleHealth) [place] [address] Tory Willard [facility] [place] [address] documented as of this encounter Visit Diagnoses Not on filedocumented in this encounter Administered Medications Inactive Administered Medications - up to 3 most recent administrations Medication Order MAR Action Action Date Dose Rate Site ceFAZolin (Ancef) 1 g in dextrose 5% 50 mL infusion Intravenous, PRN, Starting on Wed11/14/21 at 1434, Until Wed11/14/21 at 1758, Administer over 30 Minutes, Anesthesia Intra-op Given 11/14/2021 2:34 PM EDT 2 g dexmedeTOMIDine (Precedex) (4 mcg/mL) bolus injection (Anesthsia) Intravenous, PRN, Starting on Wed11/14/21 at 1410, Until Wed11/14/21 at 1758, Anesthesia Intra-op, Routine Given 11/14/2021 2:10 PM EDT 12 mcg ePHEDrine sulfate (5 mg/mL) multi-dose injection Intravenous, PRN, Starting on Wed11/14/21 at 1450, Until Wed11/14/21 at 1758, Anesthesia Intra-op, Routine Given 11/14/2021 3:47 PM EDT 5 mg Given 11/14/2021 2:53 PM EDT 5 mg Given 11/14/2021 2:50 PM EDT 5 mg esmoloL (Brevibloc) (10 mg/mL) injection Intravenous, PRN, Starting on Wed11/14/21 at 1419, Until Wed11/14/21 at 1758, Anesthesia Intra-op, Routine Given 11/14/2021 2:19 PM EDT 30 mg fentaNYL (pf) (50 mcg/mL) multi-dose injection Intravenous, PRN, Starting on Wed11/14/21 at 1637, Until Wed11/14/21 at 1758, Anesthesia Intra-op, Routine Given 11/14/2021 5:04 PM EDT 50 mcg Given 11/14/2021 4:37 PM EDT 50 mcg glycopyrrolate (Robinul) (0.2 mg/mL) multi-dose injection Intravenous, PRN, Starting on Wed11/14/21 at 1713, Until Wed11/14/21 at 1758, Anesthesia Intra-op, Routine Given 11/14/2021 5:13 PM EDT 0.4 mg lactated ringers infusion 1,000 mL, at 100 mL/hr, Intravenous, CONTINUOUS, Starting on Wed11/14/21 at 1330, Until Wed11/14/21 at 2305, Day of Surgery (Day of Procedure) New Bag 11/14/2021 2:02 PM EDT metroNIDAZOLE (Flagyl) 500 mg in sodium chloride 0.9% 100 mL infusion Intravenous, PRN, Starting on Wed11/14/21 at 1436, Until Wed11/14/21 at 1758, Administer over 30 Minutes, Anesthesia Intra-op Given 11/14/2021 2:36 PM EDT 500 mg neostigmine (Bloxiver) (1 mg/mL) injection Intravenous, PRN, Starting on Wed11/14/21 at 1713, Until Wed11/14/21 at 1758, Anesthesia Intra-op, Routine Given 11/14/2021 5:13 PM EDT 3 mg ondansetron (pf) (Zofran) (2 mg/mL) injection Intravenous, PRN, Starting on Wed11/14/21 at 1710, Until Wed11/14/21 at 1758, Anesthesia Intra-op, Routine Given 11/14/2021 5:10 PM EDT 4 mg PHENYLephrine (Jaimie-Synephrine) (80 mcg/mL) in sodium chloride 0.9% 250 mL infusion Intravenous, CONTINUOUS PRN, Starting on Wed11/14/21 at 1541, Until Wed11/14/21 at 1758, Anesthesia Intra-op, Routine Rate/Dose Change 11/14/2021 4:14 PM EDT 20 mcg/min 15 mL/hr Rate/Dose Change 11/14/2021 4:02 PM EDT 25 mcg/min 18.75 m L/hr Rate/Dose Change 11/14/2021 3:47 PM EDT 30 mcg/min 22.5 mL /hr PHENYLephrine in NS (PF) (JAIMIE-SYNEPHRINE) 0.8 mg/10 mL (80 mcg/mL) multi-dose injection Syrg Intravenous, PRN, Starting on Wed11/14/21 at 1415, Until Wed11/14/21 at 1758, Anesthesia Intra-op, Routine Given 11/14/2021 5:29 PM EDT 160 mcg Given 11/14/2021 3:40 PM EDT 80 mcg Given 11/14/2021 3:29 PM EDT 80 mcg propofoL (Diprivan) 10 mg/mL bolus injection (Anesthesia) Intravenous, PRN, Starting on Wed11/14/21 at 1412, Until Wed11/14/21 at 1758, Anesthesia Intra-op Given 11/14/2021 4:33 PM EDT 50 mg Given 11/14/2021 3:18 PM EDT 40 mg Given 11/14/2021 2:14 PM EDT 20 mg rocuronium (Zemuron) (10 mg/mL) multi-dose injection Intravenous, PRN, Starting on Wed11/14/21 at 1416, Until Wed11/14/21 at 1758, Anesthesia Intra-op, Routine Given 11/14/2021 3:21 PM EDT 10 mg Given 11/14/2021 2:16 PM EDT 30 mg documented in this encounter Care Teams Automotive Service Director Relationship Specialty Start Date End Date Maricarmen Galvan, JORGE PCP - General Family Medicine 05/10/18 07/28/23 documented as of this encounter
--- OUTSIDE RECORDS SUMMARY | 2024-02-21 13:25 | XMS_ITS | Encounter Summary ---
Author Organization [facility] [place] [address] Care Team Providers Care Metal Rivet Machine Operator Name Role Phone Maricarmen Galvan APRN Primary Care Provider [phone] Encounter Details Date Type Department Care Team (Latest Contact Info) Description 10/22/2021 3:00 PM EDT TH Visit (TeleHealth) Gy[place] [phone] Miladys Anderson MD [facility] DR OBSTETRICS [place] [address] Vulvar cancer; Type 2 diabetes mellitus without complication, without long-term current use of insulin; thrombocytopenia secondary to quinine; Cirrhosis of liver without ascites, unspecified hepatic cirrhosis type Social History Tobacco Use Types Packs/Day Years Used Date Smoking Tobacco: Never Smokeless Tobacco: Never Alcohol Use Standard Drinks/Week Comments No 0 (1 standard drink = 0.6 oz pur e alcohol) Sex and Gender Information Value Date Recorded Sex Assigned at Not on file Gender Identity Not on file Sexual Orientation Not on file documented as of this encounter Progress Notes * Miladys Anderson MD - 10/22/2021 3:00 PM EDT Images from the original note were not included. Division of [place] [address] Gynecologic Oncology-Telehealth Encounter. Reason/purpose for telehealth encounter: Patient's physical location at the time of this telehealth/telephone visit: Home, in [place]. The patient voiced an understanding of the reason and intent of the televisit/phone call, verified her date of , and provided verbal consent to discuss clinical issues by phone. Additionally, the patient acknowledged that a telephone consultation is potentially a billable encounter, and that the patient or their medical insurance carrier could be billed for this service, and provided verbal consent for the encounter. Summary of conversation, decision making, and plan: See below I spent a total of 30 minutes on this visit,including time with the patient and pre-/post-visit planning for the management of vulvar cancer Items to Complete - (To-Do List): 1. See below GYNECOLOGIC ONCOLOGY OUT PATIENT FOLLOW UP Date: 10/22/2021 Name: Shereen Vega : 1950 CSN: [id number] Patient Care Team: Patient Care Team: Maricarmen Galvan APRN as PCP - General (Family Medicine) Dr Solange Fuentes, Digital Photographer [facility] HISTORY OF PRESENT ILLNESS Shereen Vega [...] Not sexually active, no bleeding. No regular obgyn specialist care. No other weight loss, change in appetite or change in energy. Last visit: 09/12 Interval history: patient had CT scan Reports some anxiety related to diagnosis and plans for surgery Performance Status: 1 Oncology History She denies [...] consultation today with the patient. CT 10/17/21 [facility] ABD/PELVIS Mild splenomegaly, collateralization esophageal varices and recanalized umbilical vein c/w portal hypertension. No ascites. hypodentisties in right hepatic lobe, < 1 cm. Require follow up. No sign of mets, portal changes [facility] Vulva, 10 o'clock, biopsy: Invasive keratinizing squamous [...] ENDOSCOPY performed by Azam Dee MD at [facility] ENDOSCOPY ??? TUBAL LIGATION Past ASSEMBLY HAND History x 3 Menstrual History: 12 Dysplasia [...] Outpatient Medications Medication Sig Dispense Refill ??? gabapentin (NEURONTIN) 600 mg Tablet Every 8 hours. ??? insulin detemir U-100 (Levemir FlexTouch U-100 Insuln) Insulin Pen Daily. ??? fluticasone propionate (FLOVENT) 110 mcg/actuation HFA Aerosol Inhaler Inhale into the lungs. ??? omeprazole (PriLOSEC) 20 mg Capsule, Delayed Release(E.C.) Take by mouth. ??? diclofenac (VOLTAREN) 1 % Gel Apply [...] Times Daily Manny Lugo MD PHYSICAL EXAM From prior exam 10/13 Physical Exam Genitourinary: Advance Directives none ASSESSMENT/PLAN I have reviewed old records and notes from [facility] and Care Everywhere, as appropriate, in summarizing the patient's prior relevant history to make my assessment and to formalize my recommended plan of care. Vulvar lesion Vulvar cancer The patient and her and I discussed the significance of her physical exam findings with a less than 2 cm lesion of the right vulva with associated colposcopic abnormalities involving the midline structures of the vulva. We discussed the need for a radical excision of this area involving resection of the clitoris, with assessment [...] radiation. We discussed the surgical procedure anticipated procedure with separate incisions of the vulva and the groins. We reviewed the length of hospitalization and recovery with an inpatient stay anticipated for 1-2 nights. Further we discussed the impact of the patient's diabetes, psoriatic arthritis andlimited mobility on tissue healing and possible risk of complication. Specifically we discussed therisks of infection bleeding recurrence wound separation lymphedema and blood clots. We discussed the need for drains in her groin and how these will be cared for. The patient and her 's questions were answered. I advise a Anesthesia pre-op consultation, which can be done as televideo visit. Patient advised to stop baby ASA Psoriatic arthritis hypothyroid Diabetes type 2 Anxiety [...] her primary care provider. Return to Clinic: Radical vulvectomy, bilateral sentinel lymph node assessment Admission into hospital Miladys Flores MD 10/22/2021 documented in this encounter Plan of Treatment Upcoming Encounters Date Type Department Care Team (Late st Contact Info) Description 03/01/2024 1:30 PM EST Office Visit Hematology/Oncology at [address] [phone] Imer Baker MD [facility] HEMATOLOGY AND ONCOLOGY [place] [phone] Heidi Cruz, [address] [place] [address] 03/01/2024 2:00 PM EST Infusion Hematology Oncology at [address] [phone] 03/23/2024 11:30 AM EST TH Visit (TeleHealth) [place] [phone] Tory Willard, [facility] [place] [address] documented as of this encounter Visit Diagnoses Diagnosis Vulvar cancer Malignant neoplasm of vulva, unspecified site Type 2 diabetes mellitus without complication, without long-term current use of insulin thrombocytopenia secondary to quinine Other secondary thrombocytopenia Cirrhosis of liver without ascites, unspecified hepatic cirrhosis type documented in this encounter Care Teams Metal Rivet Machine Operator Relationship Specialty Start Date End Date Maricarmen Galvna APRN PCP - General Family Medicine 05/10/18 07/28/23 documented as of this encounter
--- OUTSIDE RECORDS SUMMARY | 2024-02-21 13:25 | XMS_ITS | Encounter Summary ---
[place] [address] Care Team Providers Care Retail Brand Ambassador Name Role Phone Maricarmen Galvan APRN Primary Care Provider Reason for Visit * Reason Comments Specialty Pharmacy Review Otezla 30mg ta blet Encounter Details Date Type Department Care Team (Late st Contact Info) Description 09/11/2021 Specialty [place] [address] Araceli Larson, [facility] Social History Tobacco Use Types Packs/Day Years Used Date Smoking Tobacco: Never Smokeless Tobacco: Never Alcohol Use Standard Drinks/Week Comments No 0 (1 standard drink = 0.6 oz pur e alcohol) Sex and Gender Information Value Date Recorded Sex Assigned at Not on file Gender Identity Not on file Sexual Orientation Not on file documented as of this encounter Progress Notes * Araceli Larson - 09/11/2021 11:59 PM EDT [facility] has completed a benefits investigation for Shereen Vega to reviewtheir eligibility to fill at [facility]. Per patient's medication list they are prescribed Otezla 30mg tablet (not taking) and the medication is not able to be filled at the [facility]. documented in this encounter Plan of Treatment Upcoming Encounters Date Type Department Care Team (Late st Contact Info) Description 03/01/2024 1:30 PM EST Office Visit Hematology/Oncology at [address] [phone] Imer Baker MD [facility] [address] [place] [address] Heidi Cruz, CLINIC ASSISTANT [address] [place] [address] [place] [address] 03/01/2024 2:00 PM EST Infusion Hematology Oncology at [address] [phone] 03/23/2024 11:30 AM EST TH Visit (TeleHealth) [place] [address] Tory Willard APRN [facility] [place] [address] documented as of this encounter Visit Diagnoses Not on filedocumented in this encounter Care Teams Retail Brand Ambassador Relationship Specialty Start Date End Date Maricarmen Galvan APRN PCP - General Family Medicine 05/10/18 07/28/23 documented as of this encounter
--- OUTSIDE RECORDS SUMMARY | 2024-02-21 13:25 | XMS_ITS | Encounter Summary ---
Author Organization [facility] [place] [address] Care Team Providers Care Diet Consultant Name Role Phone Maricarmen Galvan JORGE Primary Care Provider [phone] Encounter Details Date Type Department Care Team (Late st Contact Info) Description 12/24/2021 Telephone [place] [address] Ajay Montiel Social History Tobacco Use Types [...] 1:30 PM EST Office Visit Hematology/Oncology at [address] [phone] Imer Baker MD [facility] DR HEMATOLOGY [place] [address] Heidi Cruz APRN [address] [place] [address] DR MEDICAL ONCOLOGY [place], [place] [address] 03/01/2024 2:00 PM EST Infusion Hematology Oncology at [address] [phone] 03/23/2024 11:30 AM EST TH Visit (TeleHealth) [place] [address] Tory Willard APRN [facility] [place] [address] documented as of this encounter Visit Diagnoses Not on filedocumented in this encounter Care Teams Diet Consultant Relationship Specialty Start Date End Date Maricarmen Galvan APRN PCP - General Family Medicine 05/10/18 07/28/23 documented as of this encounter
--- OUTSIDE RECORDS SUMMARY | 2024-02-21 13:25 | XMS_ITS | Encounter Summary ---
Author Organization [facility] Address [facility] [place] [address] Care Team Providers Care Receiving Weigher Name Role Phone Maricarmen Galvan JORGE Primary Care Provider [phone] Encounter Details Date Type Department Care Team (Late st Contact Info) Description 11/17/2021 Orders Only Gynecology [place] [address] Stella Blanca RN Social History Tobacco Use [...] PM EST Office Visit Hematology/Oncology at [address] [phone] Imer Baker MD [facility] DR HEMATOLOGY [place] [address] Heidi Cruz APRN [address] [place] [address] DR MEDICAL ONCOLOGY [place], [place] [address] 03/01/2024 2:00 PM EST Infusion Hematology Oncology at [address] [phone] 03/23/2024 11:30 AM EST TH Visit (TeleHealth) [place] [address] Tory Willard APRN [facility] [place] [address] documented as of this encounter Visit Diagnoses Not on filedocumented in this encounter Care Teams Receiving Weigher Relationship Specialty Start Date End Date Maricarmen Galvan APRN PCP - General Family Medicine 05/10/18 07/28/23 documented as of this encounter
--- OUTSIDE RECORDS SUMMARY | 2024-02-21 13:25 | XMS_ITS | Encounter Summary ---
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 Contact Info) Description 09/25/2021 Transcribe Orders eDH Incoming Referrals [phone] Solange Fuentes DO [address] [place] [address] [place] [address] Malignant neoplasm of vulva Social History Tobacco Use Types Packs/Day Years [...] 1:30 PM EST Office Visit Hematology/Oncology at [address] [phone] Imer Baker MD [facility] DR [place] [address] Heidi Cruz [address] [place] [address] 03/01/2024 2:00 PM EST Infusion Hematology Oncology at [address] [phone] 03/23/2024 11:30 AM EST TH Visit (TeleHealth) [place] [address] Tory Willard DIE BAKER [facility] [place] [address] Scheduled Referrals Name Type Priority Associated Diagnoses Order Schedule Referral to Gynecologic Oncology Outpatient Referral Routine Malignant neoplasm of vulva Ordered: 09/25/2021 documented as of this encounter Visit Diagnoses Diagnosis Malignant neoplasm of vulva Malignant neoplasm of vulva, unspecified site documented in this encounter Care Teams Equine Manager Relationship Specialty Start Date End Date Maricarmen Galvan APRN PCP - General Family Medicine 05/10/18 07/28/23 documented as of this encounter
--- OUTSIDE RECORDS SUMMARY | 2024-02-21 13:25 | XMS_ITS | Encounter Summary ---
Author Organization [facility] [place] [address] Care Team Providers Care Reclamation Supervisor Name Role Phone Maricarmen Galvan APRN Primary Care Provider [phone] Reason for Visit * Auth/Cert Specialty Diagnoses / Procedures Referred By Anna macias Referred To Contact Diagnoses Vulvar cancer VULVAR CANCER . Procedures PRO VULVA RESECT, RAD, PART, BILAT NODES PRO INTRAOP SENTINEL LYMPH ID W/DYE INJECTION @VULVECTOMY, RAD,PARTIAL WITH LYMPHADENECTOMY-ANA (WRVU 21.86) INTRAOPERATIVE ID (MAPPING) SENTINEL LYMPH NODE,INCLUDES INJECTION (WRVU 2.5) Miladys Anderson MD [facility] [place] [address] [facility] Referral ID Status Reason Start Date Expiration Date Visits Re quested Visits Authorized [id number] 1 1 Encounter Details Date Type Department Care Team (Late st Contact Info) Description 11/14/2021 1:49 PM EDT - 11/14/2021 5:34 PM EDT [place] [address] Miladys Anderson MD [facility] [place] [address] @VULVECTOMY, RAD,PARTIAL WITH LYMPHADENECTOMY-ANA (WRVU 21.86) Social History Tobacco Use Types Packs/Day Years [...] Sign Reading Time Taken Comments Blood Pressure 143/81 11/14/2021 1:15 PM EDT Pulse 83 11/14/2021 1:15 PM EDT Temperature 36.3 ??C (97.3 ??F) 11/14/2021 1:15 PM ED T Respiratory Rate 16 11/14/2021 1:15 PM EDT Oxygen Saturation 99% 11/14/2021 1:15 PM EDT Inhaled Oxygen Concentration - - Weight 52.6 kg (116 lb) 11/14/2021 1:15 PM EDT Height 153.7 cm (5' 0.51) 11/14/2021 1:15 PM ED T Body Mass Index 22.27 11/14/2021 1:15 PM EDT documented in this encounter Discharge Summaries * Carlos A Strauss MD - 11/16/2021 11:05 AM EDT Discharge Summary Patient Name: Shereen Vega Patient Age: 71 y.o. Language: Mosotho Race: White Ethnicity: Not nor Admit date: 11/14/2021 Discharge date and time: 11/16/2021 Attending Physician: Miladys Anderson MD Discharge Physician: Zulma Deluna MD Follow-up Recommendations for Providers: -VNA services for incision and drain care -Follow-up with Dr. Anderson on 11/24/21 at 10:00AM; 12/01/21 at 9:00AM; 12/08/21 at 11:00AM Inpatient Provider Contact Information: Dr. Miladys Anderson, [facility] Gynecologic Oncology, Discharge Diagnoses (Hospital Problems) and [...] demonstrated squamous cell carcinoma vulva. ?? CT 10/17/: Mild splenomegaly, collateralization esophageal varices and recanalized [...] course was complicated by hypotension requiring a Jaimie-Synephrine drip, likely 2/2 vasoplegia from anesthesia. Her [...] (Calculated): 22.27 Height: 153.7 cm (5' 0.51) (11/14/ 1315) Weight: 52.6 kg (116 lb) (11/14/21 1315) Functional and Cognitive status: Cognitively intact and stable Important Studies and Lab Data: Labs: Last 3 wbc, hgb, hct plt Recent Labs 11/14/ 2035 10/01/21 1707 09/11/21 0937 WBC 8.0 5.8 6.1 HGB 11.1* 13.1 12.2 HCT 33.0* 38.5 36.9 PLATELET 81* 96* 112* Last 3 Lytes Recent Labs 24/ 0502 10/01/21 1707 09/11/21 0937 NA 139 [...] INSTRUCTIONS-- Vulvar Surgery Gynecologic Oncology phone number: [phone] (Nurse ext 4 then 4; appointment ext 1 then 4). After hours and on weekends please call hospital railroad crane operator at [phone] and ask for Gynecologic Oncologist production department supervisor. Call your doctor if you develop: --A [...] Call It is normal to have a dexbpy-cx-mnqiywfz amount of discharge after vulvar surgery. This [...] AM Miladys Anderson MD Gynecology Oncology at [facility] Arrive at: [employer] Work[employer] Area [phone] 12/01/2021 9:00 AM Miladys Anderson MD Gynecology Oncology at [facility] Arrive at: [employer] [facility] [phone] 12/08/2021 11:00 AM Miladys Anderson MD Gynecology Oncology at [facility] Arrive at: [employer] [phone] Future Orders Complete By Expires Discontinue IV or Saline Lock [GUV898 Custom] As directed Process Instructions: Scheduling Instructions: Comments: IV or saline lock when patient discharged. Questions: Referral to Home Health [REF34 Custom] As directed Process Instructions: If no progress note charted, please enter Clinical details in comments. Scheduling Instructions: Comments: Please evaluate Shereen Vega for admission to Home Health. [address] [facility] [address] [facility] [place] [facility] [address] Phone Number: [phone] (home) Date of : 1950 Inpatient DOCUMENTATION FOR VNA SERVICES (INCLUDING THOSE PATIENTS WITH MEDICARE COVERAGE REQUIRINGHOME VNA SERVICES AND/OR HOSPICE SERVICES) PATIENT'S LOCATION: Shereen Vega [address] [facility] [address] [facility] [place] [facility] [address] [phone] (home) Cell: Telephone Information: Chief Concierge's Name: self In discussion with the attending physician, it is certified that this patient is under their care and that they, or a Nurse Practitioner,Clinical Nurse specialist or Physician Customer Success Associate who is working directly with them, had [...] re health issues HOME HEALTH CARE AGENCY: [facility]. [address] [place] [address] Start of care: 24-48hrs after discharge FOR [...] Galvan APRN [address] / [place] [phone] All A agencies which cover the area of patient's residence have been reviewed, either verbally kimberli writing, and patient/family have chosen the home health care agency noted Questions: Disciplines Requested: Nursing Discharge References/Attachments None Provider Contact Information: Maricarmen Galvan APRN [phone] documented in this encounter Discharge Instructions * Patient Instructions* Carlos A Strauss MD - 11/14/2021 1:00 PM EDT PATIENT DISCHARGE INSTRUCTIONS-- Vulvar Surgery Gynecologic Oncology phone number: [phone] (Nurse ext 4 then 4; appointment ext 1 then 4). After hours and on weekends please call hospital railroad crane operator at [phone] and ask for Gynecologic Oncologist production department supervisor. Call your doctor if you develop: --A [...] Call It is normal to have a ftkwyw-vc-ocaqwxsq amount of discharge after vulvar surgery. This [...] of this encounter Progress Notes * Brooklyn Sales, RN - 11/16/2021 2:06 PM EDT Shereen [...] for vulvar SCC. Interval Events: -[facility] to [facility] -Passed [...] 3 wbc, hgb, hct plt Recent Labs 11/14/21 2035 10/01/21 1707 09/11/21 0937 WBC 8.0 5.8 6.1 [...] for acute blood loss anemia, baseline BPs [id number]/50s-60s, possibly 2/2 recovery from anesthesia. Incisions remain [...] plan to continue upon discharge (sent to [facility]) -- incentive spirometry. -- encourage ambulation. -- SCDs. Disposition: --Continues to require inpatient hospitalization, anticipate dc on POD#2. Code Status: Full Code To be discussed with Dr. Deluna, attending Gynecologic Oncologist. Lurdes Zurita MD PGY-3 Obstetrics and Gynecology 11/16/2021 Associated attestation - Henriquez-Zulma Adams MD - 11/17/2021 9:17 AM EDT Patient [...] as fluid resustication, with 250mL bolus x2. Cathyins is otherwise stable, mentating appropriately, no signs of acute pathological process. Critical Care fellow evaluated patient at bedside with Low Altitude Air Defense Officer Onc team Drs. Strauss and Charity, felt [...] for acute blood loss anemia, baseline BPs [id number]/50s-60s, possibly 2/2 recovery from anesthesia. Incisions remain [...] plan to continue upon discharge (sent to [facility]) -- incentive spirometry. -- encourage ambulation. -- [...] Out: 500 [Urine:500] UOP: 500cc charted between 1899 and 1999, 250mL/hr Net since admission: -100mL [...] 40mg sq daily, plan to transition to [facility] upon discharge (sent to [facility]) -- incentive spirometry. -- encourage ambulation. -- SCDs. Disposition: --Continues to require inpatient hospitalization, anticipate dc on POD#1. Will transfer to step down unit per Critical Care recommendations (see below) Code Status: Full Code 9:45PM UPDATE: Patient evaluated at bedside with Critical Care fellow Justin Newton, who agrees she has been adequately fluid [...] Office of Care Management Initial Assessment Elizabeth Burce RN reviewed record and discussed patient with [...] surrogate would be surrogate decision maker per [place] surrogate decision making law. (Only good for 180 days) Any patient receiving care in [place] must abide by [place] law. The hierarchy for surrogate decision making [...] (i) The agent with financial power of baker biscuit or a conservator appointed in accordance with [...] cane - straight Home Address listed as: [address] [place] [address] Social & Family Supports: Extended Emergency Contact Information Primary Emergency Contact: Girish Vega Relation: Spouse Current Care Provided by: self [...] not?: n.a Prescription Coverage: Yes Preferred Pharmacy: [facility] [address] [place] [address] [place] [address] [place], [place] - [address] [place] [address] [facility] Home Delivery - [facility] [address] [facility] [address] [facility] [address] [facility] [address] [facility] [address] [facility] [address] [facility] [address] Status: Patient is a : No Primary Care Provider: Maricarmen Galvan, JORGE [phone] Patient/Caregiver Goals of Treatment: surgery and go home Potential Needs for Transition of Care: home health care Agency Referrals: I have met with the patient to: ?? discuss discharge planning needs. ?? provide the [facility], Office of Care Management letter from the Gel Coat Sprayer pertaining to rehabreferrals. ?? provide a letter describing our affiliations within the [facility] and educate about their right to choose where referrals are sent. ?? provide a list of Home Health Agencies / Durable Medical Equipment vendors which serve their preferred geographic area. ?? provided patient with [facility] Star Quality Rating handout. They have requested referrals to: [facility] [employer]. [address] [place] [address] Note routed to a Final Expense Agent who will communicate referrals to facilities and provide any required information. Transportation: no concerns Transportation Anticipated: family or friend will provide Assessment: Patient is admitted to outsole splicer service for surgery Plan: Patient will go [...] to Gabriela FERREIRA. Pt assigned to bed H124-A, in process of cleaning. Awaiting transport to med/surg unit. * Brief Op Note - Miladys Anderson MD - 11/14/2021 5:29 PM EDT Brief Operative Note Patient Name: Shereen Vega : [id number] MR#: [id number] Case Date: 11/14/2021 Surgeon: Surgeon(s) and Role: [...] Please perform frozen section VULVAR CANCER Right Clay Lymph Node excision YES, Please perform frozen section No 11/14/2021 3:42 PM Time specimen removed from patient: 3:41 PM Number of tissue samples (in container) 1 Biospecimen to store? No [place] 6 [id number] VULVAR CANCER Right Superficial Inguinal Lymph Node excision No 11/14/2021 3:58 PM Time specimen removed from patient: 3:57 PM Number of tissue samples (in container) 1 Biospecimen to store? No SPECIMEN [place] 6 [id number] 2 bunny ears @ 12 O'clock 1 [...] Anderson MD - 11/14/2021 2:59 PM EDT [facility] Operative Note Patient Name: Shereen Vega : [id number] MR#: [id number] Case Date: 11/14/2021 Surgeon: Surgeon(s) and Role: [...] Please perform frozen section VULVAR CANCER Right Clay Lymph Node excision YES, Please perform frozen section No 11/14/2021 3:42 PM Time specimen removed from patient: 3:41 PM Number of tissue samples (in container) 1 Biospecimen to store? No [place] 6 [id number] VULVAR CANCER Right Superficial Inguinal Lymph Node excision No 11/14/2021 3:58 PM Time specimen removed from patient: 3:57 PM Number of tissue samples (in container) 1 Biospecimen to store? No [place]IM[place] 6 [id number] 2 bunny ears @ 12 O'clock 1 [...] PM EST Office Visit Hematology/Oncology at [address] [phone] Imer Baker MD [facility] [place] [address] Heidi Cruz APRN [address] [place] [address] DR MEDICAL ONCOLOGY [place], [place] [address] 03/01/2024 2:00 PM EST Infusion Hematology Oncology at [address] [phone] 03/23/2024 11:30 AM EST TH Visit (TeleHealth) [place] [address] Tory Willard APRN [facility] [place] [address] Scheduled Referrals Name Type Priority Associated Diagnoses [...] PATHOLOGY Routine 11/14/2021 3:42 PM EDT Intraop Clay Lymph Id W/Dye Injection (40885) 11/14/2021 2:03 PM EDT VULVAR CANCER Vulva Resect, Rad, Part, Bilat Nodes (35210) 11/14/2021 2:03 PM EDT VULVAR CANCER POCT GLUCOSE Routine 11/14/2021 1:20 PM EDT TYPE AND SCREEN VALIDITY STAT 11/14/2021 12:57 PM EDT HC ANTIBODY DETECTION,CAPTURE-R STAT 11/14/2021 12:57 PM EDT ABO/RH TYPING STAT 11/14/2021 12:57 PM EDT ANTIBODY SCREEN STAT 11/14/2021 12:57 PM EDT documented in this encounter Results * POCT Glucose (11/16/2021 12:26 PM EDT) Glucose, POC 189 65 - 199 mg/dL [facility] Comment: Supplemental ranges: <140 mg/dL before meals <180 mg/dL all other times of the day Blood 11/16/2021 12:2 6 PM EDT 11/16/2021 12:26 PM EDT Miladys Anderson MD POINT OF CARE TEST O RDERABLES [facility] [place] [address] * (ABNORMAL) POCT Glucose (11/16/2021 7:55 AM EDT) Glucose, POC 222(H) 65 - 199 mg/dL [facility] Comment: Supplemental ranges: <140 mg/dL before meals <180 mg/dL all other times of the day Blood 11/16/2021 7:55 AM EDT 11/16/2021 7:55 AM EDT Miladys Anderson MD POINT OF CARE TEST O RDERAANURAG Performing Organization Address City/[facility]/ZIP Co de Phone Number [facility] [place] [address] * POCT Glucose (11/15/2021 7:38 PM EDT) Glucose, POC 192 65 - 199 mg/dL [facility] Comment: Supplemental ranges: <140 mg/dL before meals <180 mg/dL all other times of the day Blood 11/15/2021 7:38 PM EDT 11/15/2021 7:38 PM EDT Miladys Anderson MD POINT OF CARE TEST O MAIA Performing Organization Address [facility] Co de Phone Number [facility] [place] [address] * (ABNORMAL) POCT Glucose (11/15/2021 5:44 PM EDT) Glucose, POC 227(H) 65 - 199 mg/dL [facility] Comment: Supplemental ranges: <140 mg/dL before meals <180 mg/dL all other times of the day Blood 11/15/2021 5:44 PM EDT 11/15/2021 5:44 PM EDT Miladys Anderson MD POINT OF CARE TEST O RDERAANURAG Performing Organization Address [facility] Co de Phone Number [facility] [place] [address] * (ABNORMAL) POCT Glucose (11/15/2021 12:29 PM EDT) Glucose, POC 209(H) 65 - 199 mg/dL [facility] Comment: Supplemental ranges: <140 mg/dL before meals <180 mg/dL all other times of the day Blood 11/15/2021 12:2 9 PM EDT 11/15/2021 12:29 PM EDT Miladys Anderson MD POINT OF CARE TEST O RDERABLES Performing Organization Address [facility]/ZIP Co de Phone Number [facility] [place] [address] * Phosphorus (11/15/2021 5:02 AM EDT) Phosphorus 3.7 2.5 - 4.5 mg/dL [facility] Blood 11/15/2021 5:02 AM EDT 11/15/2021 5:30 AM EDT Narrative Resulting Agency Comment Spec In Lab Miladys Anderson MD CHEMISTRY ORDERABLES Performing Organization Address [facility] Co de Phone Number [facility] [place] [address] * (ABNORMAL) Magnesium (11/15/2021 5:02 AM EDT) Magnesium 0.63(L) 0.69 - 1.07 mmol/L [facility] Blood 11/15/2021 5:02 AM EDT 11/15/2021 5:30 AM EDT Narrative Resulting Agency Comment Spec In Lab Miladys Anderson MD CHEMISTRY ORDERABLES Performing Organization Address [facility] Co de Phone Number [facility] [place] [address] * (ABNORMAL) Basic Metabolic Panel (non-fasting) (11/15/2021 5:02 AM EDT) Glucose 157 65 - 199 mg/dL [facility] Comment:Diabetes: >=200 mg/d L plus symptoms Blood Urea Nitrogen 9 8 - 18 mg/dL [facility] Creatinine 0.80 0.70 - 1.20 mg/dL [facility] Sodium 139 135 - 145 mmol/L [facility] Potassium 3.8 3.5 - 5.0 mmol/L [facility] Comment: Please note: ??Patients with WBC >100,000 may have falsely elevated Potassium levels. ??For accurate Potassium quantification in these patients send serum separator tube (gold top) for subsequent determinations. ??Contact the Clinical Chemistry Laboratory if there are any questions. Chloride 107 98 - 107 mmol/L [facility] Carbon Dioxide 24 22 - 31 mmol/L [facility] Anion Gap 8 5 - 15 mmol/L [facility] Calcium 8.2(L) 8.5 - 10.5 mg/dL [facility] Est Glomerular Filtration Rate 78 >=60 mL/min/1. 73 m?? [facility] Comment: This patient's estimated GFR [...] In Lab Miladys Anderson MD CHEMISTRY ORDERABLES [facility] [place] [address] * POCT Glucose (11/14/2021 11:11 PM EDT) Glucose, POC 161 65 - 199 mg/dL [facility] Comment: Supplemental ranges: <140 mg/dL before meals <180 mg/dL all other times of the day Blood 11/14/2021 11:1 1 PM EDT 11/14/2021 11:11 PM EDT Miladys Anderson MD POINT OF CARE TEST O RDERABLES Performing Organization Address City/[facility]/ZIP Co de Phone Number [facility] [place] [address] * (ABNORMAL) Differential, Automated (11/14/2021 8:35 PM EDT) Neutrophil % 72.0 % [facility] Neutrophil Absolute 5.73 1.70 - 6.10 x10(3)/ L [facility] Lymph % 14.8 % [facility] Lymphocytes Abs 1.2 0.9 - 3.2 x10(3)/[facility] Monocyte % 8.8 % [facility] Monocyte Abs 0.7 0.3 - 0.9 x10(3)/[facility] Eos % 3.4 % [facility] Eosinophils Abs 0.3 0.0 - 0.4 x10(3)/[facility] Basophil % 0.4 % [facility] Baso Absolute 0.0 0.0 - 0.1 x10(3)/ L [facility] Immature Gran % 0.60 % [facility] Comment: Immature granulocytes(IG's)percentage and absolute count will include metamyelocytes, myelocytes, and promyelocytes. Blood smears from CBCs yielding IG's will be scanned manually for concordance. If this scan disagrees with the automated IG or if promyelocytes are noted, a manual differential will be performed. Immature Gran Absolute 0.05(H) 0.00 - 0.04 x10(3)/ L [facility] Blood 11/14/2021 8:35 PM EDT 11/14/2021 8:35 PM EDT Narrative Resulting Agency Comment Spec In Lab Meredith Nash MD HEMATOLOGY ORDERABLE S [facility] [place] [address] * (ABNORMAL) Hemogram (11/14/2021 8:35 PM EDT) [facility] White Blood Cell 8.0 4.0 - 9.5 x10(3)/mc L [facility] Red Blood Cell 3.64(L) 4.00 - 5.21 x10(6)/mc L [facility] Hemoglobin 11.1(L) 11.7 - 15.5 g/dL [facility] Hematocrit 33.0(L) 35.7 - 45.8 % [facility] Mean Cell Volume 90.7 82.6 - 94.4 fL [facility] Mean Cell Hemoglobin 30.5 27.1 - 32.0 pg [facility] Mean Cell Hemoglobin Concentration 33.6 31.7 - 35.0 g/dL [facility] Platelet 81(L) 145 - 357 x10(3)/mc L [facility] RDW Standard Deviation 50.4(H) 37.0 - 46.0 fL [facility] RDW coefficient of variation 15.2(H) 11.5 - 14.1 % [facility] Mean Platelet Volume 9.8 7.6 - 12.9 fL [facility] NRBC% auto 0.0 % [facility] NRBC Absolute 0.000 0.000 - 0.000 x10(3)/mc L [facility] Blood 11/14/2021 8:35 PM EDT 11/14/2021 8:35 PM EDT Narrative Resulting Agency Comment Spec In Lab Meredith Nash MD HEMATOLOGY ORDERABLE S [facility] [place] [address] * POCT Glucose (11/14/2021 6:04 PM EDT) Glucose, POC 129 65 - 199 mg/dL [facility] Comment: Supplemental ranges: <140 mg/dL before meals <180 mg/dL all other times of the day Blood 11/14/2021 6:04 PM EDT 11/14/2021 6:04 PM EDT Miladys Anderson MD POINT OF CARE TEST O MAIA Performing Organization Address [facility] Co de Phone Number [facility] [place] [address] * Specimen to Pathology (11/14/2021 4:53 PM EDT) AP Specimen 11/14/2021 4:53 PM EDT 11/14/2021 4:53 PM EDT Narrative [facility] - 11/14/2021 4:53 PM EDT Specimen requisition ordered. ??Separate Pathology report to follow Miladys Anderson MD PATHOLOGY/CYTOLOGY O MAIA Performing Organization Address [facility] Co de Phone Number [facility] [place] [address] * Specimen to Pathology (11/14/2021 3:58 PM EDT) AP Specimen 11/14/2021 3:58 PM EDT 11/14/2021 3:58 PM EDT Narrative [facility] - 11/14/2021 3:58 PM EDT Specimen requisition ordered. ??Separate Pathology report to follow Miladys Anderson MD PATHOLOGY/CYTOLOGY O RDGERSON Performing Organization Address [facility] de Phone Number [facility] [place] [address] * Surgical Pathology Report (11/14/2021 3:42 PM EDT) Final Diagnosis [id number] ? Location: [facility]; [facility]; A The signing pathologist has (i) examined the [...] Peace Verified: ??12/04/2021 13:26 ??Pathologist Performed at: ??-[facility] Dept. of Pathology, [place], [place] SYNOPTIC Specimen ? Procedure: ??Partial vulvectomy [...] Site(s) Examined: ??Right inguinal ? Number of Clay Nodes Examined: ??1 Pathologic Stage Classification (pTNM, AJCC 8th ed.) ? pT Category: ??pT1b ? pN Modifier: ??(sn) ? pN Category: ??pN0 FIGO Stage ? FIGO Stage: ??IB Additional Findings . SYNOPTIC ? Additional Findings: ??Differentiated vulvar intraepithelial neoplasia (dVIN); ? Lichen sclerosus Best Tumor Blocks for Future Studies ? Tumor Block(s): ??C15 ? Normal Block(s): ??C7 ? CAP [facility] 2021 Q1 Release SPECIMEN(S) SUBMITTED A - Right Clay Lymph Node, excision (1) ?for frozen section [...] for frozen section: One node, bisected (FS1). Rehabilitation Manager sections in 1 cassettes as follows: ?A1: ??FS1 remnant B - Labeled/Fixative: Right superficial inguinal lymph node, fresh. Quantity/Size: Two, 6.7 x 5.3 x 1.5 cm. Tissue Description: Adipose tissue with three, up to 3.5 x 2.0 x 1.5 cm. Sections/Processin g: Rehabilitation Manager sections in 15 cassettes as follows: ?B1-B6: [...] for tumor. 11/14/21 16:07 Electronically signed by: ?Mirna SHARPE, Devyn Verified: ??11/14/2021 16:11 ??Pathologist Performed at: ??-[facility] Dept. of Pathology, [place], [place] This intraoperative consultation should be interpreted as a preliminary diagnosis pending review of the entire specimen and special studies, if any. A final Surgical Pathology report will follow this preliminary Frozen Section report(s). 12/04/2021 1:26 PM EDT [facility] VULVAL STRUCTURE / Unknown 11/14/2021 3:42 PM EDT 11/14/2021 3:42 PM EDT LYMPH NODE SPECIMEN / Unknown 11/14/2021 3:42 PM EDT 11/14/2021 3:42 PM EDT VULVAL STRUCTURE / Unknown 11/14/2021 3:42 PM EDT 11/14/2021 3:42 PM EDT Miladys Anderson MD PATHOLOGY/CYTOLOGY O RDERABLES [facility] [place] [address] * Specimen to Pathology (11/14/2021 3:42 PM EDT) AP Specimen 11/14/2021 3:42 PM EDT 11/14/2021 3:42 PM EDT Narrative [facility] - 11/14/2021 3:42 PM EDT Specimen requisition ordered. ??Separate Pathology report to follow Miladys Anderson MD PATHOLOGY/CYTOLOGY O MAIA Performing Organization Address [facility]/ZIP Co de Phone Number [facility] [place] [address] * POCT Glucose (11/14/2021 1:20 PM EDT) Glucose, POC 189 65 - 199 mg/dL [facility] Comment: Supplemental ranges: <140 mg/dL before meals <180 mg/dL all other times of the day Blood 11/14/2021 1:20 PM EDT 11/14/2021 1:20 PM EDT Miladys Anderson MD POINT OF CARE TEST O MAIA Performing Organization Address [facility] Co de Phone Number [facility] [place] [address] * Type and Screen Validity (11/14/2021 12:57 PM EDT) T&S only valid at [facility] Comment:This Type and Screen result is only valid at the [facility] Blood 11/14/2021 12:5 7 PM EDT 11/14/2021 12:57 PM EDT Narrative Resulting Agency Comment Spec In Lab Miladys Anderson MD BLOOD BANK LAB ORDER RANI Performing Organization Address [facility] Co de Phone Number [facility] [place] [address] * Antibody screen (11/14/2021 12:57 PM EDT) Ab Screen Interp Negative [facility] Expires at 2359 on: 11/17/2021 [facility] Blood 11/14/2021 12:5 7 PM EDT 11/14/2021 12:57 PM EDT Narrative Resulting Agency Comment Spec In Lab Miladys Anderson MD BLOOD BANK LAB ORDER RANI [facility] [place] [address] * ABO/Rh Typing (11/14/2021 12:57 PM EDT) ABORH Type A Pos [facility] Blood 11/14/2021 12:5 7 PM EDT 11/14/2021 12:57 PM EDT Narrative Resulting Agency Comment Spec In Lab Miladys Anderson MD BLOOD BANK LAB ORDER RANI Performing Organization Address [facility] Co de Phone Number [facility] [place] [address] documented in this encounter Visit Diagnoses Not on filedocumented in this encounter Admitting Diagnoses Diagnosis Vulvar cancer Malignant neoplasm of vulva, unspecified site documented in this encounter Administered Medications Inactive Administered Medications - up to 3 most recent administrations Medication Order MAR Action Action Date Dose Rate Site acetaminophen (Tylenol) tablet 650 mg 650 mg, [...] Given 11/15/2021 11:48 PM EDT 650 mg cephALEXin (Keflex) capsule 250 mg 250 mg, [...] dose on 11/16/21 at 0900, Until Discontinued Given 11/16/2021 8:43 A M EDT 16 Units insulin lispro (HumaLOG;Admelog) (100 [...] Given 11/15/2021 5:44 PM EDT 2 Units isosulfan blue (Lymphazurin) 10 mg/mL subcutaneous injection ONCE PRN, Starting on Wed11/14/21 at 1644, Until Wed11/16/21 at 1725, Intra-Operative (Intra-Procedure), Routine Given 11/14/2021 4:44 PM EDT 2 mLs 19- Surgical Site levothyroxine (Synthroid) tablet 75 mcg 75 mcg, Oral, DAILY, First dose on 11/15/21 at 0600, Until Discontinued, Routine Given 11/16/2021 6:16 AM EDT 75 mcg Given 11/15/2021 5:25 AM EDT 75 mcg lidocaine (Xylocaine) 1% (10 mg/mL) injection 3 mg 3 mg (0.3 mL), Subcutaneous, ONCE PRN, 1 dose, Starting on Wed11/14/21 at 1310, Until Wed11/14/21 at 1643, for discomfort with PIV insertion, Day of Surgery (Day of Procedure), Routine Given 11/14/2021 4:43 PM EDT 20 mLs 19- Surgical Site metFORMIN (Glucophage) tablet 1,000 mg 1,000 mg, [...] doses, Starting on Wed11/14/21 at 1745, Until 11/16/21 at 1725, Opioid Reversal, for respiratory rate less than 6 or unresponsive., May repeat every 5 minutes to increase respiratory rate. DO NOT exceed 0.12 mg total dose. Notify anesthesia immediately if administered., Routine ondansetron (pf) (Zofran) (2 mg/mL) injection 4 mg 4 mg, Intravenous, EVERY 30 MIN PRN, 2 doses, Starting on Wed11/14/21 at 1745, Until 11/16/21 at 1725, Nausea, Maximum total dose of [...] Given 11/15/2021 8:06 AM EDT 20 mg polyethylene glycoL (Miralax) packet 17 g 17 [...] Procedure), Routine 1345 (Given - Provider: Conchis Vazquez RN) acetaminophen (Tylenol) tablet 650 mg 650 mg, [...] Gabriela Coker RN)2348 (Given - Provider: Asiya Boyle RN) 0616 (Given - Provider: Asiya Boyle RN)1225 [...] (See comment) 1955 (New Bag - Provider: Brokolyn Meraz RN)2025 (Stopped - Provider: Araceli Green RN - Comment: Stopped per nightshift RN) 0141 (New Bag - Provider: Stella Kunz RN)0211 (Stopped - Provider: Stella Kunz RN)1025 (New Bag - Provider: Araceli Green RN)1055 (Stopped - Provider: Araceli Green RN)1858 (New Bag - Provider: Gabriela Coker, RN)2012 (Stopped - Provider: Asiya Boyle, HANNA) 0215 (New Bag - Provider: Asiya Boyle RN)0300 (Stopped - Provider: Asiya Boyle RN) cephALEXin [...] 2357 (Given - Provider: Stella Kunz RN) 202 (Given - Provider: Asiya Boyle, HANNA) gabapentin (Neurontin) capsule 600 mg 600 mg, Oral, 3 TIMES DAILY, First dose on 11/15/21 at 0900, Until Discontinued, Routine 0806 (Given - Provider: Araceli Green RN)1525 (Given - Provider: Gabriela Coker, HANNA)2027 (Given - Provider: Asiya Boyle RN) 0841 (Given - Provider: Brooklyn Sales, HANNA)1500 (Due) heparin (porcine) (5,000 units/1 mL) subcutaneous injection 5,000 Units (COMPLETED) 5,000 Units, Subcutaneous, ONCE, 1 dose, On Wed11/14/21 at 1330, Day of Surgery (Day of Procedure), Routine 1345 (Given - Provider: Conchis Vazquez RN) insulin detemir (Levemir) (100 unit/mL) subcutaneous injection vial 16 Units 16 Units, Subcutaneous, DAILY, First dose on 11/16/21 at 0900, Until Discontinued 0843 (Given - Provider: Brooklyn Sales RN) insulin lispro (HumaLOG;Admelog) (100 unit/mL) subcutaneous injection [...] Coker RN) 0840 (Given - Provider: Brooklyn Sales, HANNA)1237 (Given - Provider: Brooklyn Sales, HANNA) lactated Ringers 250 mL IV bolus (COMPLETED) Intravenous, ONCE, 1 dose, On Wed11/14/21 at 2015 1951 (New Bag - Provider: Brooklyn Meraz, RN) lactated Ringers 250 mL IV bolus (COMPLETED) Intravenous, ONCE, 1 dose, On Wed11/14/21 at 2045 2209 (New Bag - Provider: Brooklyn Meraz, RN) levothyroxine (Synthroid) tablet 75 mcg 75 mcg, Oral, DAILY, First dose on 11/15/21 at 0600, Until Discontinued, Routine 0525 (Given - Provider: Stella Kunz RN) 0616 (Given - Provider: Asiya Boyle, HANNA) magnesium sulfate 2 g in sterile water 50 mL infusion (COMPLETED) 2 g, Intravenous, ONCE, 1 dose, On Wed11/16/21 at 0645, Administer over 120 Minutes 0615 (New Bag - Provider: Asiya Boyle, RN)0845 (Stopped - Provider: Brooklyn Sales, RN) metFORMIN (Glucophage) tablet 1,000 mg 1,000 mg, Oral, 2 TIMES DAILY WITH MEALS, First dose on 11/15/21 at 0800, Until Discontinued, Routine 0804 (Given - Provider: Araceli Green, HANNA)1726 (Given - Provider: Gabriela Coker RN) 0841 (Given - Provider: Brooklyn Sales, RN) PARoxetine (Paxil) tablet 20 mg 20 mg, Oral, EVERY MORNING, First dose on 11/15/21 at 0700, Until Discontinued, Routine 0806 (Given - Provider: Araceli Green, HANNA) 0841 (Given - Provider: Brooklyn Sales, RN) polyethylene glycoL (Miralax) packet 17 g 17 g, Oral, DAILY, First dose on 11/15/21 at 0900, Until Discontinued, Routine 0900 (Not Given - Provider: Araceli Green RN - Reason: Patient/family refused) 0841 (Given - Provider: Brooklyn Sales, HANNA) senna-docusate (Pericolace) 8.6-50 mg per tablet 2 tablet 2 tablet, Oral, 2 TIMES DAILY, First dose on 11/15/21 at 0015, Until Discontinued, Routine 235 (Given - Provider: Stella Kunz RN) 0805 (Given - Provider: Araceli Green, HANNA)2026 (Given - Provider: Asiya Boyle, HANNA) 0842 (Given - Provider: Brooklyn Sales, RN) sodium chloride 0.9 % (flush) (BD PosiFlush Normal Saline 0.9) flush 5 mL 5 mL, Intravenous, 2 TIMES DAILY, First dose on 11/15/21 at 0015, Until Discontinued, Recovery (Recovery-Hospital Unit), Routine 235 (Given - Provider: Stella Kunz RN) 0807 (Given - Provider: Araceli Green RN)2026 (Given - Provider: Asiya Boyle, HANNA) 0842 [...] Gray CRNA)2305 (Stopped - Provider: Stella Kunz, HANNA) lactated ringers infusion (CANCELED) 1,000 mL, at 100 mL/hr, Intravenous, CONTINUOUS, Starting on Wed11/14/21 at 1845, Until 11/15/21 at 1211, Recovery (Recovery-Hospital Unit) 1820 (New Bag - Provider: Brooklyn Meraz RN) 0011 (New Bag - Provider: Stella Kunz, HANNA)1026 (New Bag - Provider: Araceli Green RN)1211 (Stopped - Provider: Araceli Green RN) PHENYLephrine [...] Meraz RN)1856 (Rate/Dose Change - Provider: Simi Johnson RN)190 (Rate/Dose Change - Provider: Simi Johnson RN)1999 (Hold - Provider: Brooklyn Meraz RN [...] PRN, Starting on 11/15/21 at 0608, Until Wed11/16/21 at 1725, Pain, Administer orally with milk or food to minimize GI irritation. Maximum dose of 3,200 mg from all sources in 24 hours, Routine isosulfan blue (Lymphazurin) 10 mg/mL subcutaneous injection (CANCELED) ONCE PRN, Starting on Wed11/14/21 at 1644, Until Wed11/16/21 at 1725, Intra-Operative (Intra-Procedure), Routine 1644 (Given - Provider: Miladys Anderson MD - Comment: injected into vulva) lidocaine (Xylocaine) 1% (10 mg/mL) injection 3 mg (COMPLETED) 3 mg (0.3 mL), Subcutaneous, ONCE PRN, 1 dose, Starting on Wed11/14/21 at 1310, Until Wed11/14/21 at 1643, for discomfort with PIV insertion, Day of Surgery (Day of Procedure), Routine 1643 (Given - Provider: Miladys Anderson MD - [...] doses, Starting on Wed11/14/21 at 1745, Until 11/16/21 at 1725, Nausea, Maximum total dose of [...] Routine documented in this encounter Care Teams Reclamation Supervisor Relationship Specialty Start Date End Date Maricarmen Galvan APRN PCP - General Family Medicine 05/10/18 07/28/23 documented as of this encounter
--- OUTSIDE RECORDS SUMMARY | 2024-02-21 13:25 | XMS_ITS | Encounter Summary ---
Author Organization [facility] [place] [address] Care Team Providers Care Sawmill Tally Clerk Name Role Phone Maricarmen Galvan APRN Primary Care Provider [phone] Reason for Visit * Reason Comments Follow-up Encounter Details Date Type Department Care Team (Latest Contact Info) Description 09/11/2021 3:00 PM EDT Office [place] [phone] Lorenzo Hermosillo PA Psoriatic arthritis (Primary Dx); [...] Sign Reading Time Taken Comments Blood Pressure 105/58 09/11/2021 2:03 PM EDT Pulse 81 09/11/2021 2:03 PM EDT Temperature - - Respiratory Rate - - Oxygen Saturation 98% 09/11/2021 2:03 PM EDT Inhaled Oxygen Concentration - - Weight 52.2 kg (115 lb) 09/11/2021 2:03 PM EDT Height 152.4 cm (5') 09/11/2021 2:03 PM EDT Body Mass Index 22.46 09/11/2021 2:03 PM EDT documented in this encounter Patient Instructions * Patient Instructions* Lorenzo Hermosillo PA - 09/11/2021 3:00 PM EDT -Follow up one year and prn -Dc otezla documented in this encounter Progress Notes * Lorenzo Hermosillo PA - 09/11/2021 3:00 PM EDTSummary: PsA Rheumatology Outpatient Note Chart review conducted prior [...] of Present Illness: Shereen Vega is a 71 y.o. female who presents today for evaluation of PsA. 03.13.21:Impression/Recommendations : Shereen Vega is a 70 y.o. female who presents today with PsA, without obvious disease activity on exam patient with secondary osteoarthritic arthralgias with complaints of ongoing left knee pain discussed strategies for differentiating this pain from low back pain as the pain radiates down her left leg. We did discuss the possibility of intra-articular injection she declined she prefer notto do that we will have her revisit with pharmacy to see whether or not the Otezla is still available to her as she does find it somewhat helpful and is less likely to cause her any metabolic problems. We will plan on seeing her again in follow-up in 4 to 6 months sooner for any other issues patient in agreement with this plan. Interval History: Patient presents today for follow-up of psoriatic arthritis medication monitoring at her last visitshe was try to get authorization for Otezla she has not been on it since the last visit she noticesno difference in arthralgias occasionally she gets some pain in her knees which she does not find si gnificantly bothersome. She denies any red warm swollen joints fevers or infectious-like symptoms there is no B symptoms she is attended today by her who concurs. Review of Systems Constitutional: Negative for anorexia, diaphoresis, absenteeism, weight loss and sleep disturbance. Respiratory: Negative for cough, shortness of breath, chest discomfort and PND. Gastrointestinal: Negative for steatorrhea, diarrhea and trouble swallowing. HENT: Negative. Psychiatric/Behavioral: Negative for social aversion. Hematologic/Lymphatic: Negative. Allergic/Immunologic: Negative for immunocompromised state. Musculoskeletal: Negative. Endocrine: Negative for polydipsia, polyphagia and polyuria. Cardiovascular: Negative for syncope. Neurological: Negative for vertigo. Skin: Negative for dry skin, urticaria, blister, photosensitivity and erythema. Allergies Allergies Allergen Reactions ??? Erythromycin Base Abdominal pain ??? Penicillins Hives ??? Plaquenil [Hydroxychloroquine] Reaction unknown ??? Quinine Thrombocytopenia ??? Sulfasalazine Patient not sure about reaction. Medications Current Outpatient Medications on File Prior to Visit Medication Sig Dispense Refill ??? insulin detemir [...] puff into thelungs every 12 hours. ??? calcium-vitamin D3 600 mg calcium- 400 [...] mouth 2 times daily (with meals). ??? omeprazole (PriLOSEC) 20 mg Capsule, Delayed Release(E.C.) Take by mouth. ??? cyanocobalamin, Vitamin B-12, (Vitamin B-12) 100 mcg Tablet Take 100 mcg by mouth daily. ??? benzonatate (TESSALON) 200 mg Capsule Take 100 mg by mouth 3 times daily as needed for Cough. ??? apremilast (Otezla Starter) 10 mg (4)-20 mg (4)-30 mg (47) Tablets, Dose Pack Use as directed on package. (Patient not taking: No sig reported) 55 tablet 0 ??? apremilast (Otezla) 30 mg Tablet Take 30 mg by mouth 2 times daily. (Patient not taking: No sigreported) 60 tablet 3 ??? folic acid (FOLVITE) 400 mcg Tablet Take 400 mcg by mouth daily. ??? lansoprazole (PREVACID) 30 mg Capsule, Delayed Release(E.C.) Take 30 mg by mouth daily. ??? cholecalciferol, Vitamin D3, 25 mcg (1,000 unit) Capsule Take by mouth. ??? docusate sodium (COLACE) 100 mg Capsule Take 100 mg by mouth 2 times daily. ??? leveTIRAcetam (KEPPRA) 500 mg tablet Take [...] ENDOSCOPY performed by Azam Dee MD at [facility] ENDOSCOPY ??? TUBAL LIGATION Physical Examination: BP 105/58 Pulse 81 Ht 152.4 cm (5') Wt 52.2 kg (115 lb) SpO2 98% BMI 22.46 kg/m?? Musculoskeletal: No synovitis or dactylitis noted osteoarthritic features throughout dorsal kyphosis no specific joint tenderness on exam patient gets up out of a chair onto the examination table unassisted. Patient walks with a compensated gait using a cane. Physical Exam Constitutional: General: She is not in acute distress. Appearance: Normal appearance. She is not ill-appearing, toxic-appearing or diaphoretic. HENT: Head: Normocephalic and atraumatic. Right Ear: External ear normal. Left Ear: External ear normal. Nose: Nose normal. Eyes: General: No scleral icterus. Right eye: No discharge. Left eye: No discharge. Conjunctiva/sclera: Conjunctivae normal. Cardiovascular: Heart sounds: Normal heart sounds. No friction rub. No gallop. Pulmonary: Effort: Pulmonary effort is normal. No respiratory distress. Breath sounds: Normal breath sounds. No stridor. No wheezing, rhonchi or rales. Chest: Chest wall: No tenderness. Abdominal: Palpations: Abdomen is soft. Tenderness: There is no abdominal tenderness. There is no guarding or rebound. Musculoskeletal: General: No swelling, tenderness or signs of injury. Right lower leg: No edema. Left lower leg: No edema. Skin: General: Skin is warm and dry. Coloration: Skin is not jaundiced or pale. Findings: No bruising, erythema, lesion or rash. Neurological: Mental Status: She is alert and oriented to person, place, and time. Motor: No weakness. Psychiatric: Mood and Affect: Mood normal. Behavior: Behavior normal. Thought Content: Thought content normal. Judgment: Judgment normal. Laboratory Data: Component Latest Ref Rng & Units 09/11/2021 Glucose Lvl 65 - 199 mg/dL 128 BUN 8 - 18 mg/dL 16 Creatinine 0.70 - 1.20 mg/dL 1.17 Sodium 135 - 145 mmol/L 141 Potassium 3.5 - 5.0 mmol/L 4.2 Chloride 98 - 107 mmol/L 104 CO2 22 - 31 mmol/L 27 Anion Gap 5 - 15 mmol/L 10 Calcium 8.5 - 10.5 mg/dL 10.1 Total Protein 6.1 - 8.0 g/dL 7.9 Albumin 3.2 - 5.2 g/dL 4.3 AST 0 - 30 unit/L 25 ALT 0 - 30 unit/L 12 Alk Phos 35 - 105 unit/L 64 Total Bilirubin 0.2 - 1.3 mg/dL 0.5 Estimated GFR >=60 mL/min/1.73 m?? 50 (L) WBC 4.0 - 9.5 x10(3)/mcL 6.1 RBC 4.00 - 5.21 x10(6)/mcL 4.19 Hemoglobin 11.7 - 15.5 g/dL 12.2 Hematocrit 35.7 - 45.8 % 36.9 MCV 82.6 - 94.4 fL 88.1 MCH 27.1 - 32.0 pg 29.1 MCHC 31.7 - 35.0 g/dL 33.1 Platelets 145 - 357 x10(3)/mcL 112 (L) RDWSD 37.0 - 46.0 fL 49.9 (H) RDWCV 11.5 - 14.1 % 15.6 (H) MPV 7.6 - 12.9 fL 9.8 nRBC % Auto % 0.5 nRBC Abs Auto 0.000 - 0.000 x10(3)/mcL 0.030 (H) Neutrophils % % 40.6 Neutr Abs (ANC) 1.70 - 6.10 x10(3)/mcL 2.48 Lymphocytes % % 32.8 Lymphocytes Abs 0.9 - 3.2 x10(3)/mcL 2.0 Monocytes % % 12.4 Monocyte Abs 0.3 - 0.9 x10(3)/mcL 0.8 Eosinophils % % 12.1 Eosinophils Abs 0.0 - 0.4 x10(3)/mcL 0.7 (H) Basophils % % 1.1 Basophils Abs 0.0 - 0.1 x10(3)/mcL 0.1 Immature Gran % % 1.00 Judy Gran Abs 0.00 - 0.04 x10(3)/mcL 0.06 (H) PT 9.4 - 12.5 sec 11.9 INR 1.0 AFP <=8.3 ng/mL <1.9 Impression/Recommendations : Shereen Vega is a 71 y.o. female who presents today with PsA and OA patient with no findingson exam suggestive of sushila activity she feels symptomatically she is doing well there is no specific intervention today she is no longer on Otezla she will remain off of it as she does not seem to need it and is uncertain as to whether or not it conferred a significant benefit we will see her againin follow-up in a year as well as as needed if indicated patient and in agreement. documented in this encounter Plan of Treatment Upcoming Encounters Date Type Department Care Team (Late st Contact Info) Description 03/01/2024 1:30 PM EST Office Visit Hematology/Oncology at [address] [phone] [facility] [address] HEMATOLOGY [place] [address] Heidi Cruz [address] [place] [address] 03/01/2024 2:00 PM EST Infusion Hematology Oncology at [address] [phone] 03/23/2024 11:30 AM EST TH Visit (TeleHealth) [place] [address] [facility] [place] [address] documented as of this encounter Visit Diagnoses Diagnosis Psoriatic arthritis- Primary Psoriatic arthropathy Long-term use of high-risk medication Osteoarthritis, unspecified osteoarthritis type, unspecified site documented in this encounter Care Teams Sawmill Tally Clerk Relationship Specialty Start Date End Date Maricarmen Galvan APRN PCP - General Family Medicine 05/10/18 07/28/23 documented as of this encounter
--- OUTSIDE RECORDS SUMMARY | 2024-02-21 13:25 | XMS_ITS | Encounter Summary ---
Author Organization [facility] [place] [address] Care Team Providers Care House Mother Name Role Phone Maricarmen Galvan APRN Primary Care Provider [phone] Encounter Details Date Type Department Care Team (Late st Contact Info) Description 11/17/2021 Telephone Gynecology Oncology at [facility] [place] [phone] Stella Blanca RN Social History Tobacco Use [...] Telephone Encounter - Stella Blanca RN - 11/17/2021 10:39 AM EDT Received message from patient's , Girish. He states they did not have the funds available yesterday to lemon picker the patient's full rx of lovenox. He picked up one dose and is requesting the rest be sent to [facility] in [facility]. He will call back to the clinic if they have issues getting the lovenox. Order pended to Addis Corona PA-C. Called and informed Girish that the rx has been sent. He verbalizes understanding and denies any needs at this time. documented in this encounter Plan of Treatment Upcoming Encounters Date Type Department Care Team (Late st Contact Info) Description 03/01/2024 1:30 PM EST Office Visit Hematology/Oncology at [address] [phone] Imer Baker MD [facility] DR HEMATOLOGY [place] [address] Heidi Cruz APRN [address] [place] [address] MEDICAL ONCOLOGY [place], [place] [address] 03/01/2024 2:00 PM EST Infusion Hematology Oncology at [address] [phone] 03/23/2024 11:30 AM EST TH Visit (TeleHealth) [place] [phone] Tory Willard APRN [facility] [place] [address] documented as of this encounter Visit Diagnoses Not on filedocumented in this encounter Care Teams House Mother Relationship Specialty Start Date End Date Maricarmen Galvan APRN PCP - General Family Medicine 05/10/18 07/28/23 documented as of this encounter
--- OUTSIDE RECORDS SUMMARY | 2024-02-21 13:25 | XMS_ITS | Encounter Summary ---
Author Organization [facility] Address [facility] [place] [address] Care Team Providers Care Pipe Foreman Name Role Phone ChagoMaricarmen luo JORGE Primary Care Provider [phone] Encounter Details Date Type Department Care Team (Latest Contact Info) Description 09/11/2021 8:30 AM EDT - 09/11/2021 11:59 PM EDT Hospital [place] [phone] Tory Ayers LARRY OPERATOR [facility] [place] [address] Hepatic cirrhosis, unspecified hepatic cirrhosis type, unspecified [...] tablet Take 1,000 mg by mouth daily. omeprazole (PriLOSEC) 20 mg Capsule, Delayed Release(E.C.) Take by mouth. 06/22/2019 08/0 04/2022 cyanocobalamin, Vitamin B-12, (Vitamin B-12) 100 mcg Tablet Take 100 mcg by mouth daily. 10/01/2021 benzonatate (TESSALON) 200 mg Capsule Take 100 mg by mouth 3 times daily as needed for Cough. 10/01/2021 diclofenac (VOLTAREN) 1 % Gel Apply 2 g topically 2 times daily as needed. 100 g 3 08/05/2020 11/16/2021 folic acid (FOLVITE) 400 mcg Tablet Take 400 mcg by mouth daily. 09/24/2022 lansoprazole (PREVACID) 30 mg Capsule, Delayed Release(E.C.) Take 30 mg by mouth daily. 11/14/2021 docusate sodium (COLACE) 100 mg Capsule Take 100 mg by mouth 2 times daily. 10/01/2021 insulin aspart U-100 (NOVOLOG) Insulin Pen Inject 30 Units subcutaneously daily. 10/01/2021 TRAMADOL HCL (TRAMADOL ORAL) Take 50 mg [...] PM EST Office Visit Hematology/Oncology at [address] [phone] Imer Baker MD [facility] DR HEMATOLOGY [place] [address] MEDICAL ONCOLOGY [place], [place] [address] 03/01/2024 2:00 PM EST Infusion Hematology Oncology at [address] [phone] 03/23/2024 11:30 AM EST TH Visit (TeleHealth) [place] [address] [address] [place] [address] documented as of this encounter Procedures Procedure Name Priority Date/Time Associated Diagnosis Comments US ABDOMEN LIMITED HEPATOLOGY PROTOCOL Routine 09/11/2021 8:58 AM EDT Hepatic cirrhosis, unspecified hepatic cirrhosis type, unspecified whether ascites present documented in this encounter Results * US Abdomen Limited Hepatology Protocol (09/11/2021 8:58 AM EDT) Anatomical Region Laterality Modality Abdomen Ultrasound 09/11/2021 8:31 AM EDT Impressions 09/11/2021 9:07 AM EDT 1. Stable interval examination. Coarsened hepatic parenchyma with capsular nodularity, recanalized umbilical vein, consistent with cirrhosis. No focal lesion to suggest hepatocellular carcinoma. 2. No cholelithiasis. 3. No intra or extrahepatic biliary ductal dilation. 4. No ascites. Electronically signed by: Marquez Romeo MD, [facility] ([phone]), at 09/11/2021 9:01 AM Thank you for letting us participate in the care of this patient. If you are a health care provider and have any questions regarding this report, please contact the number above. For patients who have questions, please contact the health janitor caretaker that requested your imaging first. ?Marquez Romeo, Staff Physician Electronically Signed Final Report ?? 09/11/2021 09:07 am Narrative 09/11/2021 9:07 AM EDT Abdominal ? (Signed Final 09/11/2021 09:07 am) PATIENT INFO: ID #: ? [id number] ?: ??[birth year] (71 yrs)(F) Name: ? ELEAZAR Kim ? Visit Date: 09/11/2021 08:31 am ? BO PERFORMED BY: Performed By: ? Nadine Kc RDMS Attending: ?Marquez Romeo MD Referred By: ?TORY AYERS Location: ? [place] SERVICE(S) PROVIDED: UABDLIM - Hepatology Protocol - Abdominal ? 74215 Limited Survey Single Organ or Quadrant - [id number] INDICATIONS: cirrhosis, screen for hcc COMPARISON: US: Hepatology 03/12/21 ------ LIVER: ------ Right Lobe Length: ?? 15.6 ?? cm Echogenicity/Echotexture: ?? Coarse parenchyma with capsular ? nodularity Portal Veins: ?Hepatopetal Comment: ?Recanalized umbilical vein GALLBLADDER: Cholelithiasis: ?No stones visualized Wall Thickness: ?2. mm Focal Tenderness: ?Negative sonographic Vee's sign BILIARY TRACT: Intrahepatic Ducts: ?? Normal Extrahepatic Ducts: ?? Normal Common Duct Size: ? 4.0 ? mm FLUID COLLECTIONS: Ascites not present on 4 quadrant evaluation. Procedure Note Marquez Romeo MD - 09/11/2021 Abdominal (Signed Final 09/11/2021 09:07 am) PATIENT INFO: ID #: [id number] : [birth year] (71 yrs)(F) Name: ELEAZAR Kim Visit Date: 09/11/2021 08:31 am BO PERFORMED BY: Performed By: Nadine Kc RDMS Attending: Marquez Romeo MD Referred By: TORY AYERS Location: [place] SERVICE(S) PROVIDED: UABDLIM - Hepatology Protocol - Abdominal 23274 Limited Survey Single Organ or Quadrant - [id number] INDICATIONS: cirrhosis, screen for hcc COMPARISON: US: Hepatology 03/12/21 ------ LIVER: ------ Right Lobe Length: 15.6 cm Echogenicity/Echotexture: Coarse parenchyma with capsular nodularity Portal Veins: Hepatopetal Comment: Recanalized umbilical vein GALLBLADDER: Cholelithiasis: No stones visualized Wall Thickness: 2. mm Focal Tenderness: Negative sonographic Vee's sign BILIARY TRACT: Intrahepatic Ducts: Normal Extrahepatic Ducts: Normal Common Duct Size: 4.0 mm FLUID COLLECTIONS: Ascites not present on 4 quadrant evaluation. IMPRESSION 1. Stable interval examination. Coarsened hepatic parenchyma with capsular nodularity, recanalized umbilical vein, consistent with cirrhosis. No focal lesion to suggest hepatocellular carcinoma. 2. No cholelithiasis. 3. No intra or extrahepatic biliary ductal dilation. 4. No ascites. Electronically signed by: Marquez Romeo MD, [facility] ([phone]), at 09/11/2021 9:01 AM Thank you for letting us participate in the care of this patient. If you are a health care provider and have any questions regarding this report, please contact the number above. For patients who have questions, please contact the health janitor caretaker that requested your imaging first. Marquez Romeo, Staff Physician Electronically Signed Final Report 09/11/2021 09:07 am Tory Ayers APRN IMG US GEN ORDERAB LES documented in this encounter Visit Diagnoses Diagnosis Hepatic cirrhosis, unspecified hepatic cirrhosis type, unspecified whether ascites present documented in this encounter Care Teams Pipe Foreman Relationship Specialty Start Date End Date Maricarmen Galvan, JORGE PCP - General Family Medicine 05/10/18 07/28/23 documented as of this encounter
--- OUTSIDE RECORDS SUMMARY | 2024-02-21 13:26 | XMS_ITS | Encounter Summary ---
Author Organization [facility] [place] [address] Care Team Providers Care Helicopter Utility Aircrewman Name Role Phone Maricarmen Galvan APRN Primary Care Provider [phone] Encounter Details Date Type Department Care Team (Late st Contact Info) Description 05/06/2020 [place] [address] Kaleb Puga Social History Tobacco Use Types Packs/Day Years Used Date Smoking Tobacco: Never Smokeless Tobacco: Never Alcohol Use Standard Drinks/Week Comments No 0 (1 standard drink = 0.6 oz pur e alcohol) Sex and Gender Information Value Date Recorded Sex Assigned at Not on file Gender Identity Not on file Sexual Orientation Not on file documented as of this encounter Progress Notes * Kaleb Puga - 05/06/2020 11:37 AM EDT I sent the application for assistance with Otezla to the patient for them to complete, sign and return to the Medication Assistance Program, along with proof of income. I will follow through with theremainder of the application once everything is returned to me. * Jennifer Judd, [facility] - 05/06/2020 11:37 AM EDT [facility], Palliative Care Specialist Assistance Approval Approval Dates: 07/01/2020 to 02/21/2021 Medication: Otezla Palliative Care Specialist: [employer] Patient Notified of Approval: Yes Additional Notes: For any questions relating to this appeal please reach out directly to your section's specialty pharmacist. Jennifer Judd RPH 07/02/20 10:42 AM documented in this encounter Plan of Treatment Upcoming Encounters Date Type Department Care Team (Late st Contact Info) Description 03/01/2024 1:30 PM EST Office Visit Hematology/Oncology at [address] [phone] Imer Baker MD [facility] [place] [address] Heidi Cruz APRN [address] [place] [address] [place] [address] 03/01/2024 2:00 PM EST Infusion Hematology Oncology at [address] [phone] 03/23/2024 11:30 AM EST TH Visit (TeleHealth) [place] [address] Tory Willard APRN [facility] [place] [address] documented as of this encounter Visit Diagnoses Not on filedocumented in this encounter Care Teams Helicopter Utility Aircrewman Relationship Specialty Start Date End Date Maricarmen Galvan APRN PCP - General Family Medicine 05/10/18 07/28/23 documented as of this encounter
--- OUTSIDE RECORDS SUMMARY | 2024-02-21 13:26 | XMS_ITS | Encounter Summary ---
[place] [address] Care Team Providers Care Housekeeping Staff Name Role Phone Maricarmen Galvan APRN Primary Care Provider [phone] Reason for Visit * Reason Comments Specialty Pharmacy Review Apremilast (Ot ezla) Encounter Details Date Type Department Care Team (Late st Contact Info) Description 03/13/2021 Specialty [place] [phone] Iqra Saleh, [facility] Social History Tobacco Use Types Packs/Day Years Used Date Smoking Tobacco: Never Smokeless Tobacco: Never Alcohol Use Standard Drinks/Week Comments No 0 (1 standard drink = 0.6 oz pur e alcohol) Sex and Gender Information Value Date Recorded Sex Assigned at Not on file Gender Identity Not on file Sexual Orientation Not on file documented as of this encounter Progress Notes * Iqra Saleh - 03/13/2021 12:09 PM EST The [facility] has completed a benefits investigation for Shereen Vega to reviewtheir eligibility to fill at [facility]. Per patient's medication list they are prescribed Apremilast (Otezla) and the medication is not able to be filled at the [facility]. documented in this encounter Plan of Treatment Upcoming Encounters Date Type Department Care Team (Late st Contact Info) Description 03/01/2024 1:30 PM EST Office Visit Hematology/Oncology at [address] [phone] Imer Baker MD [facility] DR HEMATOLOGY [place] [address] Heidi Cruz DRUG SAFETY ASSISTANT [address] [place] [address] [place] [address] 03/01/2024 2:00 PM EST Infusion Hematology Oncology at [address] [address] 03/23/2024 11:30 AM EST TH Visit (TeleHealth) [place] [address] Tory Willard APRN [facility] [place] [address] documented as of this encounter Visit Diagnoses Not on filedocumented in this encounter Care Teams Housekeeping Staff Relationship Specialty Start Date End Date Maricarmen Galvan APRN PCP - General Family Medicine 05/10/18 07/28/23 documented as of this encounter
--- OUTSIDE RECORDS SUMMARY | 2024-02-21 13:26 | XMS_ITS | Encounter Summary ---
[place] [address] Care Team Providers Care Software Recruiter Name Role Phone Maricarmen Galvan JORGE Primary Care Provider [phone] Encounter Details Date Type Department Care Team (Late st Contact Info) Description 08/05/2020 3:00 PM EDT Office [place] [phone] Manny Lugo MD Psoriatic arthritis Social History Tobacco Use Types Packs/Day Years [...] 36.1 ??C (96.9 ??F) 08/05/2020 3:00 PM ED T Respiratory Rate - - Oxygen Saturation 98% 08/05/2020 3:00 PM EDT Inhaled Oxygen Concentration - - Weight 50.3 kg (111 lb) 08/05/2020 3:00 PM EDT Height 154.9 cm (5' 1) 08/05/2020 3:00 PM EDT Body Mass Index 20.97 08/05/2020 3:00 PM EDT documented in this encounter Progress Notes * Manny Lugo MD - 08/05/2020 3:00 PM EDT Rheumatology Outpatient follow-up note HPI:??Patient??is a 68-year-old female with a PMH of??osteoporosis,??osteoarthritis (cervical spinedisc & facet degenerative disease s/p C-spine surgery 2012),??psoriatic arthritis, fibromyalgia, HTN,??HLD, DM, GERD,??hypothyroidism, vitamin D deficiency,??hemorrhoids, and chronic thrombocytopenia. ?? Rheum History: ?? 1) Psoriatic Arthritis - 08/2018 transferred care to [facility] form Dr. Wang -Dx??in [address] Burleson in [facility] -Affected joints: hand, wrist, elbow, shoulder, knee, ankle, neck -Treatment: Enbrel (+MTX 5 mg weekly for part of the course; as per Dr Burleson notes given to Dr. Wang higher doses of MTC caused liver issues) [id number].?? -??Humira since 2011 (20 mg every other [...] be secondary from DILI, negative LEO/ A1AT/ Vizcaino/TTG IgAb ?? Interval History: -Last visit in [...] ENDOSCOPY performed by Azam Dee MD at [facility] ENDOSCOPY ??? TUBAL LIGATION Family Hx: Family [...] Not on file Occupational History ??? 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 ??? cholecalciferol, Vitamin D3, [...] as directed on package. (Patient not taking: Reported on 08/05/2020) 55 tablet 0 ??? folic acid (FOLVITE) 400 mcg Tablet Take 400 mcg by mouth daily. ??? diclofenac (VOLTAREN) 1 % Gel Apply 2 g topically 2 times daily as needed. (Patient not taking:Reported on 03/10/2019) 100 g 3 ??? lansoprazole [...] to right wrist but no tenderness or swellingb/l Hands: No synovitis, no MCP compression tenderness, full claw and fist. + Ulnar deviation. + Heberden's and Bill's nodes. Hips: ??FROM, no tenderness Knees: FROM, no effusion, no tenderness, + crepitus Ankles: FROM, non-tender, no effusion on R. + Slight tenderness at R Achilles tendon insertion sitewith palpation and ankle flexion/extension. Feet: no MTP [...] 3. ??Osteoarthropathy at multiple sites ?? Echo 2012: EF 60%, moderate aortic insufficiency, mild mitral insufficiency, mild TR, mild pulmonicinsufficiency, normal PAPs PFTs 2012: DLCO 72% of [...] the last 6 months given discomfort with injections,though she denies any injection site reactions. She [...] following at the spine center at [facility] for this. I discussed several options for psoriatic arthritis, and we agreed on pursuing Otezla. Plan as below. ?? Recommendations: -Checked labs today: CBC, CMP, ESR, CRP, see results above (CRP negative, ESR may be elevated in the setting of anemia) -Continue Otezla 30 mg twice daily. If not helpful, can consider stopping at next visit. -Patient following with education program specialist regarding neck pain -Continue topical diclofenac gel as needed -Continue??Calcium 600 mg BID and Vit D3 2000 u daily??for osteopenia. Follow-up with PCP for repeat DEXA scan. -Advised [...] 1:30 PM EST Office Visit Hematology/Oncology at [address] [phone] Imer Baker MD [facility] DR [place] [address] Heidi Cruz [address] [place] [address] 03/01/2024 2:00 PM EST Infusion Hematology Oncology at [address] [phone] 03/23/2024 11:30 AM EST TH Visit (TeleHealth) [place] [address] Tory Willard APRN [facility] [place] [address] documented as of this encounter Results * CRP, acute inflammation (08/05/2020 4:19 PM EDT) C-Reactive Protein <3.0 <=4.9 mg/L [facility] Blood 08/05/2020 4:19 PM EDT 08/05/2020 4:45 PM EDT Narrative Resulting Agency Comment Spec In Lab Elida Zaldivar DO CHEMISTRY ORDERABL ES Performing Organization Address [facility] Co de Phone Number [facility] [place] [address] * (ABNORMAL) Sedimentation rate (08/05/2020 4:19 PM EDT) Sedimentation Rate Automated 51(H) 3 - 46 mm/hr [facility] Comment: Effective February 01, 2019 new capillary photometric technology has resulted in a change in reference ranges. It is recommended that each ESR result be reviewed with its own age appropriate reference range. Blood 08/05/2020 4:19 PM EDT 08/05/2020 4:45 PM EDT Narrative Resulting Agency Comment Spec In Lab Elida Zaldivar DO HEMATOLOGY ORDERAB LES Performing Organization Address [facility] Co de Phone Number [facility] [place] [address] * (ABNORMAL) Comprehensive metabolic panel (non-fasting) (08/05/2020 4:19 PM EDT) Glucose 322(H) 65 - 199 mg/dL [facility] Comment:Diabetes: >=200 mg/d L plus symptoms Blood Urea Nitrogen 8 8 - 18 mg/dL [facility] Creatinine 0.73 0.70 - 1.20 mg/dL [facility] Sodium 141 135 - 145 mmol/L [facility] Potassium 4.0 3.5 - 5.0 mmol/L [facility] Comment: Please note: ??Patients with WBC >100,000 may have falsely elevated Potassium levels. ??For accurate Potassium quantification in these patients send serum separator tube (gold top) for subsequent determinations. ??Contact the Clinical Chemistry Laboratory if there are any questions. Chloride 103 98 - 107 mmol/L [facility] Carbon Dioxide 26 22 - 31 mmol/L [facility] Anion Gap 12 5 - 15 mmol/L [facility] Calcium 9.7 8.5 - 10.5 mg/dL [facility] Protein, Total 7.9 6.1 - 8.0 gm/dL [facility] Albumin 4.3 3.2 - 5.2 gm/dL [facility] Aspartate Aminotransferase 19 0 - 30 unit/L [facility] Alanine Aminotransferase 13 0 - 30 unit/L [facility] Alkaline Phosphatase 68 35 - 105 unit/L [facility] Bilirubin, Total 0.2 0.2 - 1.3 mg/dL [facility] Est Glomerular Filtration Rate 83 >=60 mL/min/1. 73 m?? [facility] Comment: This patient? s estimated glomerular filtration rate (eGFR) is between 83 mL/min/1.73 m2 (patients with less muscle mass) and 96 mL/min/1.73 m2 (patients with more muscle mass) as determined by the CKD-EPI equation. Assessment of eGFR is not appropriate when creatinine concentrations are rapidly changing. For clinical decisions where creatinine clearance will affect therapy, a 24-hour urine creatinine clearance may be advised. Assignment of CKD stage 1 - 5 for patients with an eGFR near the transition point between stages may be based on clinical assessment of muscle mass and symptoms in addition to eGFR. Blood 08/05/2020 4:19 PM EDT 08/05/2020 4:45 PM EDT Narrative Resulting Agency Comment Spec In Lab Elida Zaldivar DO CHEMISTRY ORDERABL ES [facility] [place] [address] documented in this encounter Visit Diagnoses Diagnosis Psoriatic arthritis Psoriatic arthropathy documented in this encounter Care Teams Software Recruiter Relationship Specialty Start Date End Date Maricarmen Galvan APRN PCP - General Family Medicine 05/10/18 07/28/23 documented as of this encounter
--- OUTSIDE RECORDS SUMMARY | 2024-02-21 13:26 | XMS_ITS | Encounter Summary ---
Author Organization [facility] Address [facility] [place] [address] Care Team Providers Care Security Coordinator Name Role Phone Maricarmen Galvan JORGE Primary Care Provider [phone] Encounter Details Date Type Department Care Team (Late Contact Info) Description 02/10/2021 Notes [place] [address] Analia Mccarthy Social History Tobacco Use Types Packs/Day Years Used Date Smoking Tobacco: Never Smokeless Tobacco: Never Alcohol Use Standard Drinks/Week Comments No 0 (1 standard drink = 0.6 oz pur e alcohol) Sex and Gender Information Value Date Recorded Sex Assigned at Not on file Gender Identity Not on file Sexual Orientation Not on file documented as of this encounter Progress Notes * Analia Mccarthy - 02/10/2021 9:46 AM EST [...] 1:30 PM EST Office Visit Hematology/Oncology at [address] [phone] Imer Baker MD [facility] [place] [address] Heidi Cruz APRN [address] [place] [address] [place] [address] 03/01/2024 2:00 PM EST Infusion Hematology Oncology at [address] [address] 03/23/2024 11:30 AM EST TH Visit (TeleHealth) [place] [address] Tory Willard [facility] [place] [address] documented as of this encounter Visit Diagnoses Not on filedocumented in this encounter Care Teams Security Coordinator Relationship Specialty Start Date End Date Maricarmen Galvan APRN PCP - General Family Medicine 05/10/18 07/28/23 documented as of this encounter
--- OUTSIDE RECORDS SUMMARY | 2024-02-21 13:26 | XMS_ITS | Encounter Summary ---
[place] [address] Care Team Providers Care Editor Map Name Role Phone Maricarmen Galvan APRN Primary Care Provider [phone] Reason for Visit * Reason Comments Specialty Pharmacy Review apremilast (Ot ezla) 30 mg Tablet Encounter Details Date Type Department Care Team (Late st Contact Info) Description 08/05/2020 Specialty [place] [phone] Bashir Oakes Social History Tobacco Use Types Packs/Day Years Used Date Smoking Tobacco: Never Smokeless Tobacco: Never Alcohol Use Standard Drinks/Week Comments No 0 (1 standard drink = 0.6 oz pur e alcohol) Sex and Gender Information Value Date Recorded Sex Assigned at Not on file Gender Identity Not on file Sexual Orientation Not on file documented as of this encounter Progress Notes * Bashir Oakes - 08/05/2020 12:32 PM EDT The [facility] has completed a benefits investigation for Shereen Vega to reviewtheir eligibility to fill at [facility]. Per patient's medication list they are prescribed apremilast (Otezla) 30 mg Tablet and the medication is not able to be filled at the [facility]; patient currently fills with [employer] under MAP. documented in this encounter Plan of Treatment Upcoming Encounters Date Type Department Care Team (Late st Contact Info) Description 03/01/2024 1:30 PM EST Office Visit Hematology/Oncology at [address] [phone] Imer Baker MD [facility] DR [place] [address] Heidi Cruz [employer] [address] [place] [address] [place] [address] 03/01/2024 2:00 PM EST Infusion Hematology Oncology at [address] [phone] 03/23/2024 11:30 AM EST TH Visit (TeleHealth) [place] [address] Tory Willard APRN [facility] [place] [address] documented as of this encounter Visit Diagnoses Not on filedocumented in this encounter Care Teams Editor Map Relationship Specialty Start Date End Date Maricarmen Galvan APRN PCP - General Family Medicine 05/10/18 07/28/23 documented as of this encounter
--- OUTSIDE RECORDS SUMMARY | 2024-02-21 13:26 | XMS_ITS | Encounter Summary ---
[place] [address] Care Team Providers Care Shoulder Pad Molder Name Role Phone Maricarmen Galvan APRN Primary Care Provider [phone] Encounter Details Date Type Department Care Team (Latest Contact Info) Description 03/13/2021 2:30 PM EST Office [place] [phone] Lorenzo Hermosillo PA Psoriatic arthritis (Primary Dx); [...] 35.7 ??C (96.2 ??F) 03/13/2021 2:25 PM ES T Respiratory Rate - - Oxygen Saturation 98% 03/13/2021 2:25 PM EST Inhaled Oxygen Concentration - - Weight 50.8 kg (112 lb) 03/13/2021 2:25 PM EST Height 154.9 cm (5' 1) 03/13/2021 2:25 PM EST Body Mass Index 21.16 03/13/2021 2:25 PM EST documented in this encounter Patient Instructions * Patient Instructions* Lorenzo Hermosillo PA - 03/13/2021 2:30 PM EST Follow up 6 months No changes for now documented in this encounter Progress Notes * Lorenzo Hermosillo PA - 03/13/2021 2:30 PM [...] Overall I suspect that her joint pain ismore so secondary to osteoarthritis rather than inflammatory [...] following at the spine center at [facility] for this. ??I discussed several options for psoriatic arthritis, and we agreed on pursuing Otezla.?Plan as below. ?? Recommendations: -Checked labs today: CBC, CMP, ESR, CRP, see results above (CRP negative, ESR may be elevated in the setting of anemia) -Continue Otezla 30 mg twice daily. If not helpful, can consider stopping at next visit. -Patient following with community integration specialist regarding neck pain -Continue topical diclofenac [...] off but nothing more. Her main complaint is pain in her left knee radiating down her [...] ENDOSCOPY performed by Azam Dee MD at [facility] ENDOSCOPY ??? TUBAL LIGATION Physical Examination: BP [...] PM EST Office Visit Hematology/Oncology at [address] [phone] Imer Baker MD [facility] DR [place] [address] Heidi Cruz ERP TECHNICAL LEAD [address] [place] [address] [place] [address] 03/01/2024 2:00 PM EST Infusion Hematology Oncology at [address] [phone] 03/23/2024 11:30 AM EST TH Visit (TeleHealth) [place] [address] Tory Willard APRN [facility] [place] [address] documented as of this encounter Visit Diagnoses Diagnosis Psoriatic arthritis- Primary Psoriatic arthropathy Long-term use of high-risk medication Osteoarthritis, unspecified osteoarthritis type, unspecified site documented in this encounter Care Teams Shoulder Pad Molder Relationship Specialty Start Date End Date Maricarmen Galvan APRN PCP - General Family Medicine 05/10/18 07/28/23 documented as of this encounter
--- OUTSIDE RECORDS SUMMARY | 2024-02-21 13:26 | XMS_ITS | Encounter Summary ---
Author Organization [facility] Address [facility] [place] [address] Care Team Providers Care Junior Oracle Dba Name Role Phone Maricarmen Galvan JORGE Primary Care Provider [phone] Encounter Details Date Type Department Care Team (Late Contact Info) Description 02/19/2020 Ancillary Procedure Radiology at [facility] [address] [place] [phone] Courtney Garrido MD [address] [facility] [place] [address] Social History Tobacco Use Types Packs/Day Years [...] 1:30 PM EST Office Visit Hematology/Oncology at [address] [phone] Imer Baker MD [facility] DR [place] [address] Heidi Cruz APRN [address] [place] [address] [place] [address] 03/01/2024 2:00 PM EST Infusion Hematology Oncology at [address] [phone] 03/23/2024 11:30 AM EST TH Visit (TeleHealth) [place] [address] Tory Willard APRN [facility] [place] [address] documented as of this encounter Procedures Procedure Name Priority Date/Time Associated Diagnosis Comments FILM LIBRARY STORAGE ONLY MR SPINE Routine 02/19/2020 12:00 AM EST documented in this encounter Results * Film Library- Storage Only MR Spine (02/19/2020 12:00 AM EST) Narrative RAD - 03/04/2020 3:51 PM EST This exam is auto-finalizing. It's purpose is for storage only. Courtney Garrido MD IMG FILM LIBRARY ORDERABLES Performing Organization Address City/State/[facility] Co de Phone Number [place], [place] documented in this encounter Visit Diagnoses Not on filedocumented in this encounter Care Teams Junior Oracle Dba Relationship Specialty Start Date End Date Maricarmen Galvan APRN PCP - General Family Medicine 05/10/18 07/28/23 documented as of this encounter
--- OUTSIDE RECORDS SUMMARY | 2024-02-21 13:26 | XMS_ITS | Encounter Summary ---
Author Organization [facility] [place] [address] Care Team Providers Care Manager Paper Name Role Phone Maricarmen Galvan JORGE Primary Care Provider [phone] Encounter Details Date Type Department Care Team (Latest Contact Info) Description 09/11/2021 9:45 AM EDT Laboratory Appointment Lab [address] [place] [phone] Hepatic cirrhosis, unspecified hepatic cirrhosis type, unspecified [...] 1:30 PM EST Office Visit Hematology/Oncology at [address] [phone] Imer Baker MD [facility] DR HEMATOLOGY [place] [address] Heidi Cruz APRN [address] [place] [address] DR MEDICAL ONCOLOGY [place], [place] [address] 03/01/2024 2:00 PM EST Infusion Hematology Oncology at [address] [phone] 03/23/2024 11:30 AM EST TH Visit (TeleHealth) [place] [phone] Tory Willard APRN [facility] [place] [address] documented as of this encounter Procedures Procedure Name Priority Date/Time Associated Diagnosis Comments HEMOGRAM Routine 09/11/2021 9:37 AM EDT Hepatic cirrhosis, unspecified hepatic cirrhosis type, unspecified whether ascites present DIFFERENTIAL, AUTOMATED Routine 09/11/2021 9:37 AM EDT Hepatic cirrhosis, unspecified hepatic cirrhosis type, unspecified whether ascites present HC VENIPUNCTURE Routine 09/11/2021 9:37 AM EDT Hepatic cirrhosis, unspecified hepatic cirrhosis type, unspecified whether ascites present HC PROTHROMBIN TIME Routine 09/11/2021 9 :37 AM EDT Hepatic cirrhosis, unspecified hepatic cirrhosis type, unspecified whether ascites present HC CBC,PLT & AUTO DIFF Routine 9:37 AM EDT Hepatic cirrhosis, unspecified hepatic cirrhosis type, unspecified whether ascites present COMPREHENSIVE METABOLIC PANEL Routine 09/11/2021 9:37 AM EDT Hepatic cirrhosis, unspecified hepatic cirrhosis type, unspecified whether ascites present documented in this encounter Results * (ABNORMAL) Differential, Automated (09/11/2021 9:37 AM EDT) Neutrophil % 40.6 % [facility] Neutrophil Absolute 2.48 1.70 - 6.10 x10(3)/mc L [facility] Lymph % 32.8 % [facility] Lymphocytes Abs 2.0 0.9 - 3.2 x10(3)/mc L [facility] Monocyte % 12.4 % [facility] Monocyte Abs 0.8 0.3 - 0.9 x10(3)/mc L [facility] Eos % 12.1 % [facility] Eosinophils Abs 0.7(H) 0.0 - 0.4 x10(3)/[facility] Basophil % 1.1 % [facility] Baso Absolute 0.1 0.0 - 0.1 x10(3)/[facility] Immature Gran % 1.00 % [facility] Comment: Immature granulocytes(IG's)percentage and absolute count will include metamyelocytes, myelocytes, and promyelocytes. Blood smears from CBCs yielding IG's will be scanned manually for concordance. If this scan disagrees with the automated IG or if promyelocytes are noted, a manual differential will be performed. Immature Gran Absolute 0.06(H) 0.00 - 0.04 x10(3)/[facility] Blood 09/11/2021 9:37 AM EDT 09/11/2021 9:47 AM EDT Narrative Resulting Agency Comment Spec In Lab Tory Willard APRN HEMATOLOGY ORDERAB LES [facility] [place] [address] * (ABNORMAL) Hemogram (09/11/2021 9:37 AM EDT) White Blood Cell 6.1 4.0 - 9.5 x10(3)/[facility] Red Blood Cell 4.19 4.00 - 5.21 x10(6)/[facility] Hemoglobin 12.2 11.7 - 15.5 g/dL [facility] Hematocrit 36.9 35.7 - 45.8 % [facility] Mean Cell Volume 88.1 82.6 - 94.4 fL [facility] Mean Cell Hemoglobin 29.1 27.1 - 32.0 pg [facility] Mean Cell Hemoglobin Concentration 33.1 31.7 - 35.0 g/dL [facility] Platelet 112(L) 145 - 357 x10(3)/mc L [facility] RDW Standard Deviation 49.9(H) 37.0 - 46.0 fL [facility] RDW coefficient of variation 15.6(H) 11.5 - 14.1 % [facility] Mean Platelet Volume 9.8 7.6 - 12.9 fL [facility] NRBC% auto 0.5 % [facility] NRBC Absolute 0.030(H) 0.000 - 0.000 x10(3)/mc L [facility] Blood 09/11/2021 9:37 AM EDT 09/11/2021 9:47 AM EDT Narrative Resulting Agency Comment Spec In Lab Tory Willard APRN HEMATOLOGY ORDERAB LES Performing Organization Address City/State/[facility] Co de Phone Number [facility] [place] [address] * (ABNORMAL) Comprehensive metabolic panel (non-fasting) (09/11/2021 9:37 AM EDT) Glucose 128 65 - 199 mg/dL [facility] Comment:Diabetes: >=200 mg/d L plus symptoms Blood Urea Nitrogen 16 8 - 18 mg/dL [facility] Creatinine 1.17 0.70 - 1.20 mg/dL [facility] Sodium 141 135 - [...] Laboratory if there are any questions. Chloride 104 98 - 107 mmol/L [facility] Carbon Dioxide 27 22 - 31 mmol/L [facility] Anion Gap 10 5 - 15 mmol/L [facility] Calcium 10.1 8.5 - 10.5 mg/dL [facility] Protein, Total 7.9 6.1 - 8.0 g/dL [facility] Albumin 4.3 3.2 - 5.2 g/dL [facility] Aspartate Aminotransferase 25 0 - 30 unit/L [facility] Alanine Aminotransferase 12 0 - 30 unit/L [facility] Alkaline Phosphatase 64 35 - 105 unit/L [facility] Bilirubin, Total 0.5 0.2 - 1.3 mg/dL [facility] Est Glomerular Filtration Rate 50(L) >=60 mL/min/1. 73 m?? [facility] Comment: This patient's estimated GFR was [...] and symptoms in addition to eGFR. Blood 09/11/2021 9:37 AM EDT 09/11/2021 9:47 AM EDT Narrative Resulting Agency Comment Spec In Lab Tory Willard APRN CHEMISTRY ORDERABL ES [facility] [place] [address] * Prothrombin Time (09/11/2021 9:37 AM EDT) Prothrombin Time 11.9 9.4 - 12.5 sec [facility] International Normalization Ratio 1.0 [facility] Comment: [...] be appropriate depending on clinical circumstances. Blood 09/11/2021 9:37 AM EDT 09/11/2021 9:47 AM EDT Narrative Resulting Agency Comment Spec In Lab Tory Willard APRN HEMATOLOGY ORDERAB LES Performing Organization Address City/[facility]/ZIP Co de Phone Number [facility] [place] [address] * AFP tumor marker (09/11/2021 9:37 AM EDT) Alpha Fetoprotein <1.9 <=8.3 ng/mL [facility] Comment: This result was generated using a Cliff Divina immunoassay. ??Results obtained from other methods or manufacturers cannot be used interchangeably with this method. Blood 09/11/2021 9:37 AM EDT 09/11/2021 9:47 AM EDT Narrative Resulting Agency Comment Spec In Lab Tory Willard APRN CHEMISTRY ORDERABL ES Performing Organization Address [facility] Co de Phone Number [facility] [place] [address] documented in this encounter Visit Diagnoses Diagnosis Hepatic cirrhosis, unspecified hepatic cirrhosis type, unspecified whether ascites present documented in this encounter Care Teams Manager Paper Relationship Specialty Start Date End Date Maricarmen Galvan APRN PCP - General Family Medicine 05/10/18 07/28/23 documented as of this encounter
--- OUTSIDE RECORDS SUMMARY | 2024-02-21 13:26 | XMS_ITS | Encounter Summary ---
Author Organization [facility] Address [facility] [place] [address] Care Team Providers Care Dispensing Operator Name Role Phone Maricarmen Galvan JORGE Primary Care Provider [phone] Encounter Details Date Type Department Care Team (Late st Contact Info) Description 04/29/2020 [place] [phone] Manny Lugo MD Social History Tobacco Use Types Packs/Day Years [...] 1:30 PM EST Office Visit Hematology/Oncology at [address] [phone] Imer Baker MD [facility] DR [place] [address] Heidi Cruz APRN [address] [place] [address] DR MEDICAL ONCOLOGY [place], [place] [address] 03/01/2024 2:00 PM EST Infusion Hematology Oncology at [address] [phone] 03/23/2024 11:30 AM EST TH Visit (TeleHealth) [place] [address] Tory Willard APRN [facility] [place] [address] documented as of this encounter Visit Diagnoses Not on filedocumented in this encounter Care Teams Dispensing Operator Relationship Specialty Start Date End Date Maricarmen Galvan APRN PCP - General Family Medicine 05/10/18 07/28/23 documented as of this encounter
--- OUTSIDE RECORDS SUMMARY | 2024-02-21 13:26 | XMS_ITS | Encounter Summary ---
Author Organization [facility] [place] [address] Care Team Providers Care Product Marketing Executive Name Role Phone Maricarmen Galvan APRN Primary Care Provider [phone] Reason for Visit * Reason Onset Date Comments Other 05/10/2020 Encounter Details Date Type Department Care Team ([facility] Contact Info) Description 05/10/2020 Telephone [place] [phone] Shoaib Casey RN Other Social History Tobacco Use Types Packs/Day Years [...] encounter Miscellaneous Notes * Telephone Encounter - Shoaib Casey RN - 05/10/2020 9:02 AM EDT Message routed to this RN patient is RTC. Called patient, unavailable. Left vm with call back number. documented in this encounter Plan of Treatment Upcoming Encounters Date Type Department Care Team ([facility] Contact Info) Description 03/01/2024 1:30 PM EST Office Visit Hematology/Oncology at [address] [phone] Imer Baker MD [facility] DR [place] [address] Heidi Cruz OPEN TENTER OPERATOR [address] [place] [address] [place] [address] 03/01/2024 2:00 PM EST Infusion Hematology Oncology at [address] [phone] 03/23/2024 11:30 AM EST TH Visit (TeleHealth) [place] [address] Tory Willard [facility] [place] [address] documented as of this encounter Visit Diagnoses Not on filedocumented in this encounter Care Teams Product Marketing Executive Relationship Specialty Start Date End Date Maricarmen Galvan APRN PCP - General Family Medicine 05/10/18 07/28/23 documented as of this encounter
--- OUTSIDE RECORDS SUMMARY | 2024-02-21 13:26 | XMS_ITS | Encounter Summary ---
Author Organization [facility] [place] [address] Care Team Providers Care Forger Helper Name Role Phone Maricarmen Galvan JORGE Primary Care Provider [phone] Reason for Visit * Reason Onset Date Comments Other 02/03/2021 Encounter Details Date Type Department Care Team (Late Contact Info) Description 02/03/2021 Telephone [place] [phone] Gigi Baeza RN Other Social History Tobacco Use Types [...] encounter Miscellaneous Notes * Telephone Encounter - Gigi Baeza RN - 02/03/2021 12:58 PM EST Call received from spouse asking about Otezla assistance. documented in this encounter Plan of Treatment Upcoming Encounters Date Type Department Care Team (Late st Contact Info) Description 03/01/2024 1:30 PM EST Office Visit Hematology/Oncology at [address] [phone] Imer Baker MD [facility] [place]AT[place] [address] Heidi Cruz APRN [address] [place] [address] [place] [address] 03/01/2024 2:00 PM EST Infusion Hematology Oncology at [address] [phone] 03/23/2024 11:30 AM EST TH Visit (TeleHealth) [place] [address] Tory Willard [facility] [place] [address] documented as of this encounter Visit Diagnoses Not on filedocumented in this encounter Care Teams Forger Helper Relationship Specialty Start Date End Date Maricarmen Galvan APRN PCP - General Family Medicine 05/10/18 07/28/23 documented as of this encounter
--- OUTSIDE RECORDS SUMMARY | 2024-02-21 13:26 | XMS_ITS | Encounter Summary ---
Author Organization [facility] [place] [address] Care Team Providers Care Floorworker Distributor Name Role Phone Maricarmen Galvan APRN Primary Care Provider [phone] Reason for Visit * Reason Comments Follow-up Encounter Details Date Type Department Care Team (Late st Contact Info) Description 04/29/2020 3:00 PM EST Office Visit Rheumatology at [facility] [place] [phone] Manny Lugo MD Psoriatic arthritis; Long-term use of high-risk medication Social History Tobacco Use Types Packs/Day Years [...] EST Temperature 36.3 ??C (97.3 ??F) 04/29/2020 3 :15 PM EST Respiratory Rate 20 04/29/2020 3:15 PM EST Oxygen Saturation 100% 04/29/2020 3:1 5 PM EST Inhaled Oxygen Concentration - - Weight 52.3 kg (115 lb 6.4 oz) 04/30/19 3:15 PM EST with shoes Height 154.9 cm (5' 1) 04/29/2020 3:15 PM EST Body Mass Index 21.8 04/29/2020 3:15 PM EST documented in this encounter Progress Notes * Manny Lugo MD - 04/29/2020 3:00 PM EST Rheumatology Outpatient Follow-Up Note Reason: Psoriatic arthritis. ?? HPI: Patient??is a 68-year-old female with a PMH of??osteoporosis,??osteoarthritis (cervical spine disc & facet degenerative disease s/p C-spine surgery 2012),??psoriatic arthritis, fibromyalgia,HTN,??HLD, DM, GERD,??hypothyroidism, vitamin D deficiency,??hemorrhoids, and chronic thrombocytopenia. ?? Rheum History: ?? 1) Psoriatic Arthritis - 08/2018 transferred care to [facility] form Dr. Wang -Dx??in [address] Burleson in [facility] -Affected joints: hand, wrist, elbow, shoulder, knee, ankle, neck -Treatment: Enbrel (+MTX 5 mg weekly for part of the course; as per Dr Burleson notes given to Dr. Wang higher doses of MTC caused liver issues) [id number].?? -??Humira since 2011 (20 mg every other [...] LEO/ A1AT/ Vizcaino/TTG IgAb ?? Interval History: -Patient reports that she was on Humira but stopped this 3 months ago given pain with the injections -Patient prefers not to take any injectable immunomodulators -She reports that she does not feel significantly worse since stopping the Humira -Since stopping Humira, she denies any flare-ups of joint swelling/warmth/redniess nor does she have any prolonged AM stiffness -AM stiffness is only [...] which she is following with PCP and Behavioral Sciences Department Chair at [facility]. She recently had an open MRI in [place] -Taking tramadol PRN, prescribed by PCP, for [...] ENDOSCOPY performed by Azam Dee MD at [facility] ENDOSCOPY ??? TUBAL LIGATION Family Hx: [...] on file Occupational History ??? 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 ??? leveTIRAcetam [...] not taking:Reported on 03/10/2019) 100 g 3 Current Facility-Administered [...] -25-OH vit D 60.9 ?? Labs from 2013 -HLA-B27 neg -SPEP normal? Labs from 01/27/2018 [...] mild TR, mild pulmonicinsufficiency, normal PAPs PFTs 2013: DLCO 72% of predicted CXR 2013: Normal 02/08 pharm stress test:??normal Assessment:??Patient??is a 68-year-old female with a PMH of??osteoporosis,??osteoarthritis (cervical spine disc & facet degenerative disease s/p C-spine surgery 2012),??psoriatic arthritis, fibromyalgia, HTN,??HLD, DM, GERD,??hypothyroidism, vitamin D deficiency,??hemorrhoids, and chronic thrombocytopenia. She restarted Humira in August 2018, and had since improved in terms of morning stiffnessand fatigue. She has stopped Humira over the last 3 months given discomfort with injections, thoughshe denies any injection site reactions. She prefers to switch to an oral medication if possible. Her disease activity fortunately seems relatively stable despite being off the TNFi. She has morning stiffness for 30 minutes or less, no recent flareups, and and exam showing possibly very slight leftwrist synovitis with some left ankle Achilles tendinopathy. Her neck and back pain is in the setting of DJD, and she is following at the spine center at [facility] for this. I discussed several options [...] PM EST Office Visit Hematology/Oncology at [address] [phone] Imer Baker MD [facility] [address] HEMATOLOGY [place] [address] MEDICAL ONCOLOGY [place], [place] [id number] 03/01/2024 2:00 PM EST Infusion Hematology Oncology at [address] [phone] 03/23/2024 11:30 AM EST TH Visit (TeleHealth) [place] [phone] Tory Willard [facility] [place] [address] documented as of this encounter Procedures Procedure Name Priority Date/Time Associated Diagnosis Comments HC VENIPUNCTURE Routine 04/29/2020 5:01 PM EST Psoriatic arthritis HEMOGRAM Routine 04/29/2020 5:01 PM EST Psoriatic arthritis DIFFERENTIAL, AUTOMATED Routine 04/29/2020 5:01 PM EST Psoriatic arthritis HC ESR-SEDIMENTATION RATE, BLOOD Routine 04/29/2020 5:01 PM EST Psoriatic arthritis HC CBC,PLT & AUTO DIFF Routine 5:01 PM EST Psoriatic arthritis COMPREHENSIVE METABOLIC PANEL Routine 04/29/2020 5:01 PM EST Psoriatic arthritis documented in this encounter Results * (ABNORMAL) Differential, Automated (04/29/2020 5:01 PM EST) Neutrophil % 37.7 % [facility] Neutrophil Absolute 2.51 1.70 - 6.10 x10(3)/mc L [facility] Lymph % 26.1 % [facility] Lymphocytes Abs 1.7 0.9 - 3.2 x10(3)/mc L [facility] Monocyte % 8.1 % [facility] Monocyte Abs 0.5 0.3 - 0.9 x10(3)/[facility] Eos % 26.4 % [facility] Eosinophils Abs 1.8(H) 0.0 - 0.4 x10(3)/[facility] Basophil % 1.4 % [facility] Baso Absolute 0.1 0.0 - 0.1 x10(3)/[facility] Immature Gran % 0.30 % [facility] Comment: Immature granulocytes(IG's)percentage and absolute count will include metamyelocytes, myelocytes, and promyelocytes. Blood smears from CBCs yielding IG's will be scanned manually for concordance. If this scan disagrees with the automated IG or if promyelocytes are noted, a manual differential will be performed. Immature Gran Absolute 0.02 0.00 - 0.04 x10(3)/[facility] Blood specimen (specimen) 04/29/2020 5:01 PM EST 04/29/2020 5:39 PM EST Narrative Resulting Agency Comment Spec In Lab Manny Lugo MD HEMATOLOGY ORDERABL ES [facility] [place] [address] * (ABNORMAL) Hemogram (04/29/2020 5:01 PM EST) White Blood Cell 6.6 4.0 - 9.5 x10(3)/[facility] Red Blood Cell 4.04 4.00 - 5.21 x10(6)/[facility] Hemoglobin 11.9 11.7 - 15.5 gm/dL [facility] Hematocrit 36.2 35.7 - 45.8 % [facility] Mean Cell Volume 89.6 82.6 - 94.4 fL [facility] Mean Cell Hemoglobin 29.5 27.1 - 32.0 pg [facility] Mean Cell Hemoglobin Concentration 32.9 31.7 - 35.0 gm/dL [facility] Platelet 104(L) 145 - 357 x10(3)/mc L [facility] RDW Standard Deviation 48.5(H) 37.0 - 46.0 fL [facility] RDW coefficient of variation 14.7(H) 11.5 - 14.1 % [facility] Mean Platelet Volume 10.3 7.6 - 12.9 fL [facility] NRBC% auto 0.0 % [facility] NRBC Absolute 0.000 0.000 - 0.000 x10(3)/mc L [facility] Blood specimen (specimen) 04/29/2020 5:01 PM EST 04/29/2020 5:39 PM EST Narrative Resulting Agency Comment Spec In Lab Manny Lugo MD HEMATOLOGY ORDERABL ES Performing Organization Address City/[facility]/ZIP Co de Phone Number [facility] [place] [address] * CRP, acute inflammation (04/29/2020 5:01 PM EST) C-Reactive Protein 1.8 <=4.9 mg/L [facility] Blood specimen (specimen) 04/29/2020 5:01 PM EST 04/29/2020 5:39 PM EST Narrative Resulting Agency Comment Spec In Lab Mamadou Bear II, DO CHEMISTRY ORDERA BLES Performing Organization Address City/[facility]/ZIP Co de Phone Number [facility] [place] [address] * Sedimentation rate (04/29/2020 5:01 PM EST) Sedimentation Rate Automated 37 3 - 46 mm/hr [facility] Comment: Effective February 01, 2019 new capillary photometric technology has resulted in a change in reference ranges. It is recommended that each ESR result be reviewed with its own age appropriate reference range. Blood specimen (specimen) 04/29/2020 5:01 PM EST 04/29/2020 5:39 PM EST Narrative Resulting Agency Comment Spec In Lab Mamadou N Natashallgoyo II, DO HEMATOLOGY ORDER RANI [facility] [place] [address] * (ABNORMAL) Comprehensive metabolic panel (non-fasting) (04/29/2020 5:01 PM EST) Glucose 122 65 - 199 mg/dL [facility] Comment:Diabetes: >=200 mg/d L plus symptoms Blood Urea Nitrogen 12 8 - 18 mg/dL [facility] Creatinine 0.62(L) 0.70 - 1.20 mg/dL [facility] Sodium 142 135 - 145 mmol/L [facility] Potassium 4.5 3.5 - 5.0 mmol/L [facility] Comment: Please note: ??Patients with WBC >100,000 may have falsely elevated Potassium levels. ??For accurate Potassium quantification in these patients send serum separator tube (gold top) for subsequent determinations. ??Contact the Clinical Chemistry Laboratory if there are any questions. Chloride 104 98 - 107 mmol/L [facility] Carbon Dioxide 27 22 - 31 mmol/L [facility] Anion Gap 11 5 - 15 mmol/L [facility] Calcium 10.2 8.5 - 10.5 mg/dL [facility] Protein, Total 7.8 6.1 - 8.0 gm/dL [facility] Albumin 4.1 3.2 - 5.2 gm/dL [facility] Aspartate Aminotransferase 25 0 - 30 unit/L [facility] Alanine Aminotransferase 15 0 - 30 unit/L [facility] Alkaline Phosphatase 70 35 - 105 unit/L [facility] Bilirubin, Total 0.3 0.2 - 1.3 mg/dL [facility] Est Glomerular Filtration Rate 91 >=60 mL/min/1. 73 m?? [facility] Comment: This patient? s estimated glomerular filtration rate (eGFR) is between 91 mL/min/1.73 m2 (patients with less muscle mass) and 106 mL/min/1.73 m2 (patients with [...] and symptoms in addition to eGFR. Blood specimen (specimen) 04/29/2020 5:01 PM EST 04/29/2020 5:39 PM EST Narrative Resulting Agency Comment Spec In Lab Mamadou Bear II, DO CHEMISTRY BEATRIZ OSBORN Performing Organization Address City/State/[facility] Co de Phone Number [facility] [place] [address] documented in this encounter Visit Diagnoses Diagnosis Psoriatic arthritis Psoriatic arthropathy Long-term use of high-risk medication documented in this encounter Care Teams Floorworker Distributor Relationship Specialty Start Date End Date Maricarmen Galvan APRN PCP - General Family Medicine 05/10/18 07/28/23 documented as of this encounter
--- OUTSIDE RECORDS SUMMARY | 2024-02-21 13:26 | XMS_ITS | Encounter Summary ---
[place] [address] Care Team Providers Care Oil Heaterman Name Role Phone Maricarmen Galvan APRN Primary Care Provider [phone] Reason for Visit * Reason Comments Medication Management Patient Education Encounter Details Date Type Department Care Team (Late st Contact Info) Description 04/30/2020 Specialty [place] [phone] [facility] Social History Tobacco Use Types Packs/Day Years Used Date Smoking Tobacco: Never Smokeless Tobacco: Never Alcohol Use Standard Drinks/Week Comments No 0 (1 standard drink = 0.6 oz pur e alcohol) Sex and Gender Information Value Date Recorded Sex Assigned at Not on file Gender Identity Not on file Sexual Orientation Not on file documented as of this encounter Progress Notes * [facility] - 04/30/2020 11:29 AM EST Specialty Pharmacy Consultation; [facility] Comprehensive Medication Management (CMM) Shereen Hansenwell Diagnosis: PSA Therapy Start Date: TBD, pending insurance approval Contact in person or [...] 20 mg twice daily, Day 5: 20 mg in the morning and 30 mg in the evening, Day 6 and thereafter: 30 mg twice daily . Patient was educated on the Otezla labeled warnings and precautions including GI effects, neuropsychiatric effects, and weight loss. Patient was made aware that the use of Otezla is not recommended during /. Educated patient on the potential side effects of Otezla including diarrhea, nausea,headache, weight loss, and URTI. Clinic follow-up needed: yes-follow up appts Allergies and Drug intolerance: Allergies Allergen Reactions ??? Erythromycin Base Abdominal pain ??? Penicillins Hives ??? Plaquenil [Hydroxychloroquine] Reaction unknown ??? Quinine Thrombocytopenia ??? Sulfasalazine Patient not sure about reaction. Special Dietary or Hydration Requirements: no There is no height or weight on file to calculate BMI. Medication Reconciliation Discrepancies (compared to [facility] med list) -none identified Medication List: Current Outpatient Medications Medication Sig Dispense Refill ??? apremilast (Otezla Starter) 10 mg (4)-20 mg (4)-30 mg (47) Tablets, Dose Pack Use as directed on package. 55 tablet 0 ??? apremilast (Otezla) 30 [...] beneficiary Provider: plan sponsor [facility] Method of Contact: face to [...] to doctor discussed, reminder to refill or bean picker machine operator medication discussed, self-monitoring discussed, start medication [...] to doctor discussed, reminder to refill or bean picker machine operator medication discussed, self-monitoring discussed, start medication [...] importance of adherence and management strategies, side effectavoidance and mitigation strategies, and interruptions in therapy: yes Physical Assessment: Functional limitations identified: no Cognitive limitations identified: no Concern regarding orientation/memory: no Concern with reasoning/judgement: no Is patient a fall risk: no Other needed information: no Social Assessment: Does the patient have a primary home care administrator? no Patient has emergency contact on file: Yes Does patient need referral to health care social worker: No Does patient need referral to advocacy [...] weight, renal function, signs or symptoms of mood changes, depression, or suicidal thoughts= Interventions (if applicable): [...] side effect profile of their medication. The patient is able to call 911 or seek urgent care if signs/symptoms of allergy or harmful adverse reactions occur: Yes Patient understands no changes to current drug regimen were made at the appointment and that [facility] is[facility] (summary located at top of note) for provider review and follow up. Jennifer Judd RPH 04/30/20 11:30 AM * Jennifer Judd RP - 04/30/2020 11:29 AM EST [facility]- Technical Director Assistance Referral [facility] looked into assistance for [...] n/a Jennifer Judd RP 04/30/20 11:36 AM * [facility] - 04/30/2020 11:29 AM EST [facility], Technical Director Assistance Update The [facility] has attempted to reach back out to Shereen Vega to see if they need any further guidance with acquiring conversion man assistance for their specialty medication, . We left message for patient. At this point, unless the patient requests further assistance we will discontinue any further outreach attempts. Additional Notes: i will follow up in 1 week. Kaleb sent application on 05/06/20 [facility] 05/09/20 2:39 PM * [facility] - 04/30/2020 11:29 AM EST [facility], Technical Director Assistance Update The [facility] has attempted to reach back out to Shereen Kim Vega to see if they need any further guidance with acquiring conversion man assistance for their specialty medication, . We spoke to patient. At this point, unless the patient requests further assistance we will discontinue any further outreach attempts. Additional Notes: Yes - will follow up in one week Jennifer Judd RPH 05/16/20 12:12 PM Electronically signed by [facility] at 05/16/2020 12:12 PM EDT * [facility] - 04/30/2020 11:29 AM EST [facility], Technical Director Assistance Update The [facility] has attempted to reach back out to Shereen Judy Vega to see if they need any further guidance with acquiring conversion man assistance for their specialty medication, . We spoke to patient. At this point, unless the patient requests further assistance we will discontinue any further outreach attempts. Additional Notes: Otezla application should be coming in the mail soon. Sent out on 06/21/20 Jennifer Judd RP 06/26/20 1:09 PM * [facility] - 04/30/2020 11:29 AM EST [facility], Technical Director Assistance Submitted Medication: Otezla Technical Director: [employer] Submitted: 06/27/20 via fax Additional Notes: will check in next week For any questions relating to this appeal please reach out directly to your section's specialty pharmacist. Jennifer Judd RPH 06/27/20 2:56 PM Electronically signed by [facility] at 06/27/2020 2:57 PM EDT documented in this encounter Plan of Treatment Upcoming Encounters Date Type Department Care Team (Late st Contact Info) Description 03/01/2024 1:30 PM EST Office Visit Hematology/Oncology at [address] [phone] Imer Baker MD [facility] DR [place] [address] Heidi Cruz APR[address] MEDICAL [place]COLOGY [place], [place] [address] 03/01/2024 2:00 PM EST Infusion Hematology Oncology at [address] [phone] 03/23/2024 11:30 AM EST TH Visit (TeleHealth) [place] [phone] Tory Willard APRN [facility] [place] [address] documented as of this encounter Visit Diagnoses Not on filedocumented in this encounter Care Teams Oil Heaterman Relationship Specialty Start Date End Date Maricarmen Galvan APRN PCP - General Family Medicine 05/10/18 07/28/23 documented as of this encounter
--- OUTSIDE RECORDS SUMMARY | 2024-02-21 13:26 | XMS_ITS | Encounter Summary ---
Author Organization [facility] [place] [address] Care Team Providers Care Project Development Manager Name Role Phone Maricarmen Galvan JORGE Primary Care Provider [phone] Encounter Details Date Type Department Care Team (Late st Contact Info) Description 09/11/2021 11:00 AM EDT Office Visit [place] [phone] Tory Ayers APRN [facility] [place] [place] [address] Hepatic cirrhosis, unspecified hepatic cirrhosis type, unspecified [...] Time Taken Comments Blood Pressure 105/58 09/11/2021 10:49 AM EDT Pulse 81 09/11/2021 10:49 AM EDT Temperature - - Respiratory Rate - - Oxygen Saturation - - Inhaled Oxygen Concentration - - Weight 52.5 kg (115 lb 12.8 oz) 022 10:49 AM EDT Height 154.9 cm (5' 1) 09/11/2021 10:4 9 AM EDT Body Mass Index 21.88 09/11/2021 10:49 AM EDT documented in this encounter Progress Notes * Tory Ayers APRN - 09/11/2021 11:00 AM EDT Hepatology Follow Up Note Patient: Eleazar Vega Gender: female : 1950 Provider: TORY AYERS APRN Referring Physician: Maricarmen Galvan APRN HISTORY OF PRESENT ILLNESS Eleazar Vega is a 71 y.o. year old female with history of diabetes, psoriatic arthritis, andcirrhosis. She had an ultrasound today and returns for follow up. She had an infusion to help her bones related to her PA, and that has been helping. She is seeing rheumatology earlier today. She had her ultrasound and blood work earlier today. She has been feeling okay. Denies any blood in her stool. PAST MEDICAL/SURGICAL HISTORY Psoriatic arthritis - [...] Outpatient Medications Marked as Taking for the 09/11/21 encounter (Office Visit) with Tory Ayers APRN [...] (with meals). Current Facility-Administered Medications for the 09/11/21 encounter (Office Visit) with Tory Ayers APRN [...] hx of liver disease. PHYSICAL EXAM Vitals: 09/11/21 1049 BP: 105/58 BP Location (NBP): Left arm Patient Position: Sitting BP Cuff Sizes: Adult (25-34 cm) Pulse: 81 Weight: 52.5 kg (115 lb 12.8 oz) Height: 154.9 cm (5' 1) Body mass index is 21.88 kg/m??. Constitutional: Well appearing, appropriate, no acute distress, petite stature Skin: No cyanosis, no palmar erythema, no jaundice, no spider angiomata Neurologic: Alert and oriented x 3, no asterixis or tremor Extremities: No edema, no clubbing, no muscle wasting, no joint swelling Lab Results Component Value Date WBC 6.1 09/11/2021 HGB 12.2 09/11/2021 HCT 36.9 09/11/2021 MCV 88.1 09/11/2021 PLATELET 112 (L) 09/11/2021 Recent Labs 09/11/21 0937 INR 1.0 Chemistry Component Value Date/Time NA 141 09/11/2021 0937 K 4.2 09/11/2021 0937 CL 104 09/11/2021 0937 CO2 27 09/11/2021 0937 BUN 16 09/11/2021 0937 CREATININE 1.17 09/11/2021 0937 Component Value Date/Time CALCIUM 10.1 09/11/2021 0937 ALKPHOS 64 09/11/2021 0937 AST 25 09/11/2021 0937 ALT 12 09/11/2021 0937 BILITOT 0.5 09/11/2021 0937 MELD-Na score: 8 at 09/11/2021 9:37 AM MELD score: 8 at 09/11/2021 9:37 AM Calculated from: Serum Creatinine: 1.17 mg/dL at 09/11/2021 9:37 AM Serum Sodium: 141 mmol/L (Using max of 137 mmol/L) at 09/11/2021 9:37 AM Total Bilirubin: 0.5 mg/dL (Using min of 1 mg/dL) at 09/11/2021 9:37 AM INR(ratio): 1.0 at 09/11/2021 9:37 AM Age: 71 years Ultrasound 09/11/21: IMPRESSION ?? 1. Stable interval examination. Coarsened hepatic parenchyma with capsular nodularity, recanalized umbilical vein, consistent with cirrhosis. No focal lesion to suggest hepatocellular carcinoma. 2. No cholelithiasis. 3. No intra or extrahepatic biliary ductal dilation. 4. No ascites. ASSESSMENT/PLAN Eleazar Vega is a 71 y.o. female with history of diabetes, hyperlipidemia, psoriatic arthritis and well-compensated cirrhosis, likely due to ALFARO or medication (prior Methotrexate use, though brief). She has been stable from a liver standpoint since her diagnosis. MELD-Na is 8 with today's bl ood work. 1. Cirrhosis. [...] a recanalized umbilical vein on ultrasound imaging. Plan to repeat EGD, she would prefer to do in 6 months when she returns for her ultrasound. 3. HCC surveillance. US today with no [...] 6 months with labs an US. - EGD In 6 months on same day as EGD. Time spent reviewing records prior to this encounter: 5 minutes Time spent during encounter with patient including counselin minutes Time spent documenting encounter on date of service: 5 minutes Approximate total time devoted to this single encounter on date of service: 30minutes Tory Ayers APRN Section of Gastroenterology [place] [address] Copy: Maricarmen Galvan APRN [address] / [place] [address] * Radha Jha - 09/11/2021 11:[address] to patient 2 times to schedule EGD by JLS, working in coordinating with CCM for US/EGD on same day. Nees CT safety questions completed as well documented in this encounter Plan of Treatment Upcoming Encounters Date Type Department Care Team (Late st Contact Info) Description 03/01/2024 1:30 PM EST Office Visit Hematology/Oncology at [address] [phone] Imer Baker MD [facility] [place] [address] Heidi Cruz, [address] MEDICAL ONCOLOGY [place], [place] [id number] 03/01/2024 2:00 PM EST Infusion Hematology Oncology at [address] [phone] 03/23/2024 11:30 AM EST TH Visit (TeleHealth) [place] [address] [facility] [place] [address] documented as of this encounter Results * US Abdomen Limited [...] Minda Box MD at 06/24/2022 11:16 AM Electronically signed by: Minda Box MD, [facility] ([phone]), at 06/24/2022 11:16 AM Thank you for letting us participate in the care of this patient. If you are a health care provider and have any questions regarding this report, please contact the number above. For patients who have questions, please contact the health landcare officer that requested your imaging first. ? Minda Box, Staff Physician Electronically Signed Final Report ?? 06/24/2022 11:23 am Narrative 06/24/2022 11:23 AM EDT Abdominal ? (Signed Final 06/24/2022 11:23 am) PATIENT INFO: ID #: ? [id number] ?: ??[birth year] (72 yrs)(F) Name: ? ELEAZAR Kim ? Visit Date: 06/24/2022 09:22 am ? BO PERFORMED BY: Attending: ?Isauro SHARPE, Minda Castellanos Performed By: ? Beena Millan RDMS Referred By: ?TORY AYERS Location: ? [place] [facility] Protocol - Abdominal ?84600 Limited Survey Single Organ or Quadrant - [id number] INDICATIONS: cirrhosis, screen for hcc ------ LIVER: [...] 06/24/2022 11:23 am) PATIENT INFO: ID #: [id number] : [birth year] (72 yrs)(F) Name: ELEAZAR Kim Visit Date: 06/24/2022 09:22 am BO PERFORMED BY: Attending: Minda Box MD Performed By: Beena Millan RDMS Referred By: TORY AYERS Location: [place] SERVICE(S) PROVIDED: [facility] - Hepatology Protocol - Abdominal 59265 Limited Survey Single Organ or Quadrant - [id number] INDICATIONS: cirrhosis, screen for hcc ------ LIVER: [...] who have questions, please contact the health landcare officer that requested your imaging first. Minda Box, Staff Physician Electronically Signed Final Report 06/24/2022 11:23 am Tory Ayers APRN IMG GEN ORDERAB LES documented in this encounter Visit Diagnoses Diagnosis Hepatic cirrhosis, unspecified hepatic cirrhosis type, unspecified whether ascites present Hepatic cirrhosis, unspecified hepatic cirrhosis type, unspecified whether ascites present documented in this encounter Care Teams Project Development Manager Relationship Specialty Start Date End Date Maricarmen Galvan APRN PCP - General Family Medicine 05/10/18 07/28/23 documented as of this encounter
--- OUTSIDE RECORDS SUMMARY | 2024-02-21 13:26 | XMS_ITS | Encounter Summary ---
Author Organization [facility] [place] [address] Care Team Providers Care General Farmworker Name Role Phone Maricarmen Galvan JORGE Primary Care Provider [phone] Encounter Details Date Type Department Care Team (Late Contact Info) Description 04/08/2020 Telephone [place] [address] Janelle Loya Social History Tobacco Use Types Packs/Day Years [...] encounter Miscellaneous Notes * Telephone Encounter - Janelle Loya - 04/08/2020 4:50 PM EST CALLED PT AND PROVIDED CODE FOR HER TO HAVE COME TO APPT REQUESTED BY PCP. documented in this encounter Plan of Treatment Upcoming Encounters Date Type Department Care Team (Late st Contact Info) Description 03/01/2024 1:30 PM EST Office Visit Hematology/Oncology at [address] [phone] Imer Baker MD [facility] DR HEMATOLOGY [place] [address] Heidi Cruz APRN [address] [place] [address] [place] [address] 03/01/2024 2:00 PM EST Infusion Hematology Oncology at [address] [phone] 03/23/2024 11:30 AM EST TH Visit (TeleHealth) [place] [address] Tory Willard APRN [facility] [place] [address] documented as of this encounter Visit Diagnoses Not on filedocumented in this encounter Care Teams General Farmworker Relationship Specialty Start Date End Date Maricarmen Galvan APRN PCP - General Family Medicine 05/10/18 07/28/23 documented as of this encounter
--- OUTSIDE RECORDS SUMMARY | 2024-02-21 13:26 | XMS_ITS | Encounter Summary ---
Author Organization [facility] Address [facility] [place] [address] Care Team Providers Care Wet Suit Gluer Name Role Phone Maricarmen Galvan JORGE Primary Care Provider [phone] Encounter Details Date Type Department Care Team (Late Contact Info) Description 02/10/2021 Notes [place] [address] Analia Mccarthy Social History Tobacco Use Types [...] Progress Notes * Analia Mccarthy - 02/10/2021 4:10 PM EST I faxed the application for assistance with Ote[employer] to [employer]. I will follow through once the stock drier tender program makes a decision. documented in this encounter Plan of Treatment Upcoming Encounters Date Type Department Care Team (Late st Contact Info) Description 03/01/2024 1:30 PM EST Office Visit Hematology/Oncology at [address] [phone] Imer Baker MD [facility] DR [place] [address] Heidi Cruz APRN [address] [place] [address] [place] [address] 03/01/2024 2:00 PM EST Infusion Hematology Oncology at [address] [phone] 03/23/2024 11:30 AM EST TH Visit (TeleHealth) [place] [address] Tory Willard APRN [facility] [place] [address] documented as of this encounter Visit Diagnoses Not on filedocumented in this encounter Care Teams Wet Suit Gluer Relationship Specialty Start Date End Date Maricarmen Galvan APRN PCP - General Family Medicine 05/10/18 07/28/23 documented as of this encounter
--- OUTSIDE RECORDS SUMMARY | 2024-02-21 13:26 | XMS_ITS | Encounter Summary ---
Author Organization [facility] [place] [address] Care Team Providers Care Management Accountant Name Role Phone Maricarmen Galvan APRN Primary Care Provider [phone] Reason for Visit * Reason Comments Specialty Pharmacy Review Encounter Details Date Type Department Care Team (Late Contact Info) Description 02/06/2020 Specialty [place] [phone] Anny Hernadez, [facility] Social History Tobacco Use Types Packs/Day Years Used Date Smoking Tobacco: Never Smokeless Tobacco: Never Alcohol Use Standard Drinks/Week Comments No 0 (1 standard drink = 0.6 oz pur e alcohol) Sex and Gender Information Value Date Recorded Sex Assigned at Not on file Gender Identity Not on file Sexual Orientation Not on file documented as of this encounter Progress Notes * Anny Hernadez - 02/06/2020 11:59 PM EST The [facility] has completed a benefits investigation for Shereen Vega to reviewtheir eligibility to fill at [facility]. Per patient's medication list they are prescribed Humira and the medication is not able to be filled at the [facility]. documented in this encounter Plan of Treatment Upcoming Encounters Date Type Department Care Team (Late Contact Info) Description 03/01/2024 1:30 PM EST Office Visit Hematology/Oncology at [address] [phone] Imer Baker MD [facility] DR HEMATOLOGY [place] [address] Heidi Cruz APRN [address] [place] [address] [place] [address] 03/01/2024 2:00 PM EST Infusion Hematology Oncology at [address] [phone] 03/23/2024 11:30 AM EST TH Visit (TeleHealth) [place] [address] Tory Willard [employer]PORATE BOND TRADER [facility] [place] [address] documented as of this encounter Visit Diagnoses Not on filedocumented in this encounter Care Teams Management Accountant Relationship Specialty Start Date End Date Maricarmen Galvan APRN PCP - General Family Medicine 05/10/18 07/28/23 documented as of this encounter
--- OUTSIDE RECORDS SUMMARY | 2024-02-21 13:26 | XMS_ITS | Encounter Summary ---
[place] [address] Care Team Providers Care Business Architect Name Role Phone Maricarmen Galvan APRN Primary Care Provider Encounter Details Date Type Department Care Team (Late Contact Info) Description 02/21/2020 [place]phone [place] [address] Jennifer Judd [facility] Social History Tobacco Use Types Packs/Day Years [...] encounter Miscellaneous Notes * Telephone Encounter - Jennifer Judd [facility] - 02/21/2020 9:15 AM EST I spoke with Shereen about her Humira application. The [employer] office said they faxed it in yesterday.There was a mix up and never sent the first time. I let Shereen know if she doesn't hear anything from the shake backboard notcher by Wednesday or Wednesday that she should call me and I can reach out to [employer]. documented in this encounter Plan of Treatment Upcoming Encounters Date Type Department Care Team (Late Contact Info) Description 03/01/2024 1:30 PM EST Office Visit Hematology/Oncology at [address] [phone] Imer Baker MD [facility] DR [place] [address] Heidi Cruz CLIENT PROFESSIONAL [address] [place] [address] [place] [address] 03/01/2024 2:00 PM EST Infusion Hematology Oncology at [address] [phone] 03/23/2024 11:30 AM EST TH Visit (TeleHealth) [place] [address] Tory Willard APRN [facility] [place] [address] documented as of this encounter Visit Diagnoses Not on filedocumented in this encounter Care Teams Business Architect Relationship Specialty Start Date End Date Maricarmen Galvan APRN PCP - General Family Medicine 05/10/18 07/28/23 documented as of this encounter
--- OUTSIDE RECORDS SUMMARY | 2024-02-21 13:26 | XMS_ITS | Encounter Summary ---
Author Organization Formerly [facility] Address [facility] [place] [address] Care Team Providers Care Tile Ditcher Name Role Phone Maricarmen Galvan JORGE Primary Care Provider Encounter Details Date Type Department Care Team (Latest Contact Info) Description 08/05/2020 4:05 PM EDT Laboratory Appointment Lab [address] [place] [phone] Psoriatic arthritis; Hepatic cirrhosis, unspecified hepatic cirrhosis type, unspecified [...] PM EST Office Visit Hematology/Oncology at [address] [phone] Imer Baker MD [facility] DR [place] [address] Heidi Cruz APRN [address] [place] [address] DR MEDICAL ONCOLOGY [place], [place] [address] 03/01/2024 2:00 PM EST Infusion Hematology Oncology at [address] [phone] 03/23/2024 11:30 AM EST TH Visit (TeleHealth) Gastroenterology at [facility] [phone] Tory Willard APRN [facility] [place] [address] documented as of this encounter Procedures Procedure Name Priority Date/Time Associated Diagnosis Comments HC C-REACTIVE PROTEIN Routine 08/05/2020 4:19 PM EDT Psoriatic arthritis HEMOGRAM Routine 08/05/2020 4:19 PM EDT Psoriatic arthritis DIFFERENTIAL, AUTOMATED Routine 08/05/2020 4:19 PM EDT Psoriatic arthritis HC ESR-SEDIMENTATION RATE, BLOOD Routine 08/05/2020 4:19 PM EDT Psoriatic arthritis HC PROTHROMBIN TIME Routine 08/05/2020 4 :19 PM EDT Hepatic cirrhosis, unspecified hepatic cirrhosis type, unspecified whether ascites present HC CBC,PLT & AUTO DIFF Routine 4:19 PM EDT Psoriatic arthritis COMPREHENSIVE METABOLIC PANEL Routine 08/05/2020 4:19 PM EDT Psoriatic arthritis documented in this encounter Results * Differential, Automated (08/05/2020 4:19 PM EDT) Neutrophil % 52.4 % [facility] Neutrophil Absolute 2.33 1.70 - 6.10 x10(3)/[facility] Lymph % 28.2 % [facility] Lymphocytes Abs 1.2 0.9 - 3.2 x10(3)/[facility] Monocyte % 10.6 % [facility] Monocyte Abs 0.5 0.3 - 0.9 x10(3)/[facility] Eos % 7.7 % [facility] Eosinophils Abs 0.3 0.0 - 0.4 x10(3)/[facility] Basophil % 0.9 % [facility] Baso Absolute 0.0 0.0 - 0.1 x10(3)/[facility]ORATORY Immature Gran % 0.20 % [facility] Comment: Immature granulocytes(IG's)percentage and absolute count will include metamyelocytes, myelocytes, and promyelocytes. Blood smears from CBCs yielding IG's will be scanned manually for concordance. If this scan disagrees with the automated IG or if promyelocytes are noted, a manual differential will be performed. Immature Gran Absolute 0.01 0.00 - 0.04 x10(3)/[facility]AT[facility] Blood 08/05/2020 4:19 PM EDT 08/05/2020 4:45 PM EDT Narrative Resulting Agency Comment Spec In Lab Manny Lugo MD HEMATOLOGY ORDERABL ES Performing Organization Address City/State/[facility] Co de Phone Number [facility] [place] [address] * (ABNORMAL) Hemogram (08/05/2020 4:19 PM EDT) White Blood Cell 4.4 4.0 - 9.5 x10(3)/mc L [facility] Red Blood Cell 3.67(L) 4.00 - 5.21 x10(6)/mc L [facility] Hemoglobin 10.4(L) 11.7 - 15.5 gm/dL [facility] Hematocrit 31.9(L) 35.7 - 45.8 % [facility] Mean Cell Volume 86.9 82.6 - 94.4 fL [facility] Mean Cell Hemoglobin 28.3 27.1 - 32.0 pg [facility] Mean Cell Hemoglobin Concentration 32.6 31.7 - 35.0 gm/dL [facility] Platelet 108(L) 145 - 357 x10(3)/ L [facility] RDW Standard Deviation 47.7(H) 37.0 - 46.0 fL [facility] RDW coefficient of variation 15.0(H) 11.5 - 14.1 % [facility] Mean Platelet Volume 10.6 7.6 - 12.9 fL [facility] NRBC% auto 0.0 % [facility] NRBC Absolute 0.000 0.000 - 0.000 x10(3)/mc L [facility] Blood 08/05/2020 4:19 PM EDT 08/05/2020 4:45 PM EDT Narrative Resulting Agency Comment Spec In Lab Manny Lugo MD HEMATOLOGY ORDERABL ES Performing Organization Address [facility] Co de Phone Number [facility] [place] [address] * Prothrombin Time (08/05/2020 4:19 PM EDT) Prothrombin Time 12.1 9.4 - 12.5 sec [facility] International Normalization Ratio 1.1 [facility] Comment: An INR <2.0 [...] be appropriate depending on clinical circumstances. Blood 08/05/2020 4:19 PM EDT 08/05/2020 4:45 PM EDT Narrative Resulting Agency Comment Spec In Lab Tory Willard APRN HEMATOLOGY ORDERAB LES Performing Organization Address [facility]/ZIP Co de Phone Number [facility] [place] [address] * (ABNORMAL) Comprehensive metabolic panel (non-fasting) (08/05/2020 4:19 PM EDT) Glucose 322(H) 65 - 199 mg/dL [facility] Comment:Diabetes: >=200 mg/d L plus symptoms Blood Urea Nitrogen 8 8 - 18 mg/dL [facility] Creatinine 0.73 0.70 - 1.20 mg/dL [facility] Sodium 141 135 - 145 mmol/L [facility] Potassium 4.0 3.5 - 5.0 mmol/L [facility] Comment: Please note: ??Patients with WBC >100,000 may have falsely elevated Potassium levels. ??For accurate Potassium quantification in these patients send serum separator tube (gold top) for subsequent determinations. ??Contact the Clinical Chemistry Laboratory if there are any questions. Chloride 103 98 - 107 mmol/L [facility] Carbon Dioxide 26 22 - 31 mmol/L [facility] Anion Gap 12 5 - 15 mmol/L [facility] Calcium 9.7 8.5 - 10.5 mg/dL [facility] Protein, Total 7.9 6.1 - 8.0 gm/dL [facility] Albumin 4.3 3.2 - 5.2 gm/dL [facility] Aspartate Aminotransferase 19 0 - 30 unit/L [facility] Alanine Aminotransferase 13 0 - 30 unit/L [facility] Alkaline Phosphatase 68 35 - 105 unit/L [facility] Bilirubin, Total 0.2 0.2 - 1.3 mg/dL [facility] Est Glomerular Filtration Rate 83 >=60 mL/min/1. 73 m?? [facility] Comment: This [...] DO CHEMISTRY ORDERABL ES Performing Organization Address [facility]/ZIP Co de Phone Number [facility] [place] [address] * (ABNORMAL) Sedimentation rate (08/05/2020 4:19 PM EDT) Pathologist [facility] Sedimentation Rate Automated 51(H) 3 - 46 mm/hr [facility] Comment: Effective February 01, 2019 new capillary photometric technology has resulted in a change in reference ranges. It is recommended that each ESR result be reviewed with its own age appropriate reference range. Blood 08/05/2020 4:19 PM EDT 08/05/2020 4:45 PM EDT Narrative Resulting Agency Comment Spec In Lab Elida Zaldivar DO HEMATOLOGY ORDERAB LES Performing Organization Address [facility]/ZIP Co de Phone Number [facility] [place] [address] * CRP, acute inflammation (08/05/2020 4:19 PM EDT) [facility] C-Reactive Protein <3.0 <=4.9 mg/L [facility] Blood 08/05/2020 4:19 PM EDT 08/05/2020 4:45 PM EDT Narrative Resulting Agency Comment Spec In Lab Elida Zaldivar DO CHEMISTRY ORDERABL ES Performing Organization Address [facility] Co de Phone Number [facility] [place] [address] documented in this encounter Visit Diagnoses Diagnosis Psoriatic arthritis Psoriatic arthropathy Hepatic cirrhosis, unspecified hepatic cirrhosis type, unspecified whether ascites present documented in this encounter Care Teams Tile Ditcher Relationship Specialty Start Date End Date Maricarmen Galvan, JORGE PCP - General Family Medicine 05/10/18 07/28/23 documented as of this encounter
--- OUTSIDE RECORDS SUMMARY | 2024-02-21 13:26 | XMS_ITS | Encounter Summary ---
Author Organization [facility] [place] [address] Care Team Providers Care Moto Mix Operator Name Role Phone Maricarmen Galvan JORGE Primary Care Provider [phone] Encounter Details Date Type Department Care Team (Late st Contact Info) Description 01/31/2021 Telephone [place] [phone] Janelle Loya Social History Tobacco Use Types [...] * Telephone Encounter - Janelle Loya - 01/31/2021 4:44 PM EST Lm for pt to call back and reschedule bumped visit. Sending letter documented in this encounter Plan of Treatment Upcoming Encounters Date Type Department Care Team (Late st Contact Info) Description 03/01/2024 1:30 PM EST Office Visit Hematology/Oncology at [address] [phone] Imer Baker MD [facility] DR HEMATOLOGY [place] [address] Heidi Cruz APRN [address] [place] [address] [place] [address] 03/01/2024 2:00 PM EST Infusion Hematology Oncology at [address] [phone] 03/23/2024 11:30 AM EST TH Visit (TeleHealth) [place] [address] Tory Willard APRN [facility] [place] [address] documented as of this encounter Visit Diagnoses Not on filedocumented in this encounter Care Teams Moto Mix Operator Relationship Specialty Start Date End Date Maricarmen Galvan APRN PCP - General Family Medicine 05/10/18 07/28/23 documented as of this encounter
--- OUTSIDE RECORDS SUMMARY | 2024-02-21 13:26 | XMS_ITS | Encounter Summary ---
Author Organization [facility] Address [facility] [place] [address] Care Team Providers Care Decorator Consultant Name Role Phone Maricarmen Galvan JORGE Primary Care Provider [phone] Encounter Details Date Type Department Care Team (Late st Contact Info) Description 04/30/2020 Orders [place] [address] Manny Lugo MD Social History Tobacco Use [...] PM EST Office Visit Hematology/Oncology at [address] [phone] Imer Baker MD [facility] DR [place] [address] Heidi Cruz APRN [address] [place] [address] DR MEDICAL ONCOLOGY [place], [place] [id number] 03/01/2024 2:00 PM EST Infusion Hematology Oncology at [address] [phone] 03/23/2024 11:30 AM EST TH Visit (TeleHealth) [place] [address] Tory Willard APRN [facility] [place] [address] documented as of this encounter Visit Diagnoses Not on filedocumented in this encounter Care Teams Decorator Consultant Relationship Specialty Start Date End Date Maricarmen Galvan APRN PCP - General Family Medicine 05/10/18 07/28/23 documented as of this encounter
--- OUTSIDE RECORDS SUMMARY | 2024-02-21 13:26 | XMS_ITS | Encounter Summary ---
Author Organization [facility] Address [facility] [place] [address] Care Team Providers Care Raveler Name Role Phone Maricarmen Galvan JORGE Primary Care Provider [phone] Encounter Details Date Type Department Care Team (Latest Contact Info) Description 03/12/2021 8:30 AM EST Laboratory Appointment Lab [address] [place] [phone] Liver cirrhosis secondary to ALFARO Social History Tobacco Use Types Packs/Day Years [...] 1:30 PM EST Office Visit Hematology/Oncology at [address] [phone] Imer Baker MD [facility] DR [place] [address] Heidi Cruz APRN [address] [place] [address] DR MEDICAL ONCOLOGY [place], [place] [id number] 03/01/2024 2:00 PM EST Infusion Hematology Oncology at [address] [phone] 03/23/2024 11:30 AM EST TH Visit (TeleHealth) [place] [address] Tory Willard APRN [facility] [place] [address] documented as of this encounter Procedures Procedure Name Priority Date/Time Associated Diagnosis Comments HEMOGRAM Routine 03/12/2021 8:45 AM EST Liver cirrhosis secondary to ALFARO DIFFERENTIAL, AUTOMATED Routine 03/12/2021 8:45 AM EST Liver cirrhosis secondary to ALFARO HC VENIPUNCTURE Routine 03/12/2021 8:45 AM EST Liver cirrhosis secondary to ALFARO HC PROTHROMBIN TIME Routine 03/12/2021 8 :45 AM EST Liver cirrhosis secondary to ALFARO HC CBC,PLT & AUTO DIFF Routine 8:45 AM EST Liver cirrhosis secondary to ALFARO COMPREHENSIVE METABOLIC PANEL Routine 03/12/2021 8:45 AM EST Liver cirrhosis secondary to ALFARO documented in this encounter Results * (ABNORMAL) Differential, Automated (03/12/2021 8:45 AM EST) Neutrophil % 34.2 % [facility] Neutrophil Absolute 2.37 1.70 - 6.10 x10(3)/mc L [facility] Lymph % 28.6 % [facility] Lymphocytes Abs 2.0 0.9 - 3.2 x10(3)/mc L [facility] Monocyte % 7.8 % [facility] Monocyte Abs 0.5 0.3 - 0.9 x10(3)/mc L [facility] Eos % 27.8 % [facility] Eosinophils Abs 1.9(H) 0.0 - 0.4 x10(3)/mc L [facility] Basophil % 1.3 % [facility] Baso Absolute 0.1 0.0 - 0.1 x10(3)/ L [facility] Immature Gran % 0.30 % [facility] Comment: Immature granulocytes(IG's)percentage and absolute count will include metamyelocytes, myelocytes, and promyelocytes. Blood smears from CBCs yielding IG's will be scanned manually for concordance. If this scan disagrees with the automated IG or if promyelocytes are noted, a manual differential will be performed. Immature Gran Absolute 0.02 0.00 - 0.04 x10(3)/ L [facility] Blood 03/12/2021 8:45 AM EST 03/12/2021 9:02 AM EST Narrative Resulting Agency Comment Spec In Lab Joe SHERIFF HEMATOLOGY ORDERABLE S Performing Organization Address City/State/[facility] Co de Phone Number [facility] [place] [address] * (ABNORMAL) Hemogram (03/12/2021 8:45 AM EST) White Blood Cell 6.9 4.0 - 9.5 x10(3)/[facility] Red Blood Cell 3.77(L) 4.00 - 5.21 x10(6)/mc L [facility] Hemoglobin 10.8(L) 11.7 - 15.5 g/dL [facility] Hematocrit 32.6(L) 35.7 - 45.8 % [facility] Mean Cell Volume 86.5 82.6 - 94.4 fL [facility] Mean Cell Hemoglobin 28.6 27.1 - 32.0 pg [facility] Mean Cell Hemoglobin Concentration 33.1 31.7 - 35.0 g/dL [facility] Platelet 103(L) 145 - 357 x10(3)/ L [facility] RDW Standard Deviation 48.8(H) 37.0 - 46.0 fL [facility] RDW coefficient of variation 15.7(H) 11.5 - 14.1 % [facility] Mean Platelet Volume 10.2 7.6 - 12.9 fL [facility] NRBC% auto 0.0 % [facility] NRBC Absolute 0.000 0.000 - 0.000 x10(3)/mc L [facility] Blood 03/12/2021 8:45 AM EST 03/12/2021 9:02 AM EST Narrative Resulting Agency Comment Spec In Lab Joe SHERIFF HEMATOLOGY ORDERABLE S [facility] [place] [address] * Comprehensive metabolic panel (non-fasting) (03/12/2021 8:45 AM EST) Glucose 187 65 - 199 mg/dL [facility] Comment:Diabetes: >=200 mg/d L plus symptoms Blood Urea Nitrogen 15 8 - 18 mg/dL [facility] Creatinine 0.71 0.70 - 1.20 mg/dL [facility] Sodium 138 135 - 145 mmol/L [facility] Potassium 4.0 3.5 - 5.0 mmol/L [facility] Comment: Please note: ??Patients with WBC >100,000 may have falsely elevated Potassium levels. ??For accurate Potassium quantification in these patients send serum separator tube (gold top) for subsequent determinations. ??Contact the Clinical Chemistry Laboratory if there are any questions. Chloride 102 98 - 107 mmol/L [facility] Carbon Dioxide 27 22 - 31 mmol/L [facility] Anion Gap 9 5 - 15 mmol/L [facility] Calcium 9.9 8.5 - 10.5 mg/dL [facility] Protein, Total 7.9 6.1 - 8.0 g/dL [facility] Albumin 4.4 3.2 - 5.2 g/dL [facility] Aspartate Aminotransferase 19 0 - 30 unit/L [facility] Alanine Aminotransferase 13 0 - 30 unit/L [facility] Alkaline Phosphatase 67 35 - 105 unit/L [facility] Bilirubin, Total 0.4 0.2 - 1.3 mg/dL [facility] Est Glomerular Filtration Rate 86 >=60 mL/min/1. 73 m?? [facility] Comment: This patient? s estimated glomerular filtration rate (eGFR) is between 86 mL/min/1.73 m2 (patients with less muscle mass) and 99 mL/min/1.73 m2 (patients with [...] and symptoms in addition to eGFR. Blood 03/12/2021 8:45 AM EST 03/12/2021 9:02 AM EST Narrative Resulting Agency Comment Spec In Lab Marika Welch MD CHEMISTRY ORDERABLES [facility] [place] [address] * Prothrombin Time (03/12/2021 8:45 AM EST) Prothrombin Time 12.0 9.4 - 12.5 sec [facility] International Normalization Ratio 1.1 [facility] Comment: An INR <2.0 indicates [...] be appropriate depending on clinical circumstances. Blood 03/12/2021 8:45 AM EST 03/12/2021 9:02 AM EST Narrative Resulting Agency Comment Spec In Lab Marika Welch MD HEMATOLOGY ORDERABLE S Performing Organization Address City/[facility]/ZIP Co de Phone Number [facility] [place] [address] * AFP tumor marker (03/12/2021 8:45 AM EST) Alpha Fetoprotein <1.9 <=8.3 ng/mL [facility] Blood 03/12/2021 8:45 AM EST 03/12/2021 9:02 AM EST Narrative Resulting Agency Comment Spec In Lab Marika Welch MD CHEMISTRY ORDERABLES Performing Organization Address [facility]/ZIP Co de Phone Number [facility] [place] [address] documented in this encounter Visit Diagnoses Diagnosis Liver cirrhosis secondary to ALFARO Other chronic nonalcoholic liver disease documented in this encounter Care Teams Raveler Relationship Specialty Start Date End Date Maricarmen Galvan APRN PCP - General Family Medicine 05/10/18 07/28/23 documented as of this encounter
--- OUTSIDE RECORDS SUMMARY | 2024-02-21 13:26 | XMS_ITS | Encounter Summary ---
Author Organization [facility] Address [facility] [place] [address] Care Team Providers Care Trust Manager Name Role Phone ChagoMaricarmen luo JORGE Primary Care Provider [phone] Encounter Details Date Type Department Care Team (Latest Contact Info) Description 08/06/2020 9:30 AM EDT - 08/06/2020 11:59 PM EDT Hospital [place] [phone] Tory Ayers CONDITIONER TENDER [facility] [place] [address] Hepatic cirrhosis, unspecified hepatic cirrhosis type, unspecified [...] Refills Start Date End Date fluticasone propionate (FLOVENT) 110 mcg/actuation HFA Aerosol [...] Delayed Release(E.C.) Take by mouth. 06/22/2019 09/24/2022 cyanocobalamin, Vitamin B-12, (Vitamin B-12) 100 mcg Tablet Take 100 mcg by mouth daily. 10/01/2021 benzonatate (TESSALON) 200 mg Capsule Take 100 mg by mouth 3 times daily as needed for Cough. 10/01/2021 diclofenac (VOLTAREN) 1 % Gel Apply 2 g topically 2 times daily as needed. 100 g 3 08/05/2020 11/16/2021 apremilast (Otezla Starter) 10 mg (4)-20 mg (4)-30 mg (47) Tablets, Dose Pack Use as directed on package. 55 tablet 04/29/2020 09/11/2021 apremilast (Otezla) 30 mg Tablet Take 30 mg by mouth 2 times daily. 60 tablet 3 04/29/2020 09/11/2021 folic acid (FOLVITE) 400 mcg Tablet Take [...] 1:30 PM EST Office Visit Hematology/Oncology at [address] [phone] Imer Baker MD [facility] DR HEMATOLOGY [place] [address] Heidi Cruz, [address] MEDICAL ONCOLOGY [place], [place] [address] 03/01/2024 2:00 PM EST Infusion Hematology Oncology at [address] [phone] 03/23/2024 11:30 AM EST TH Visit (TeleHealth) [place] [address] Tory Ayers [facility] [place] [address] documented as of this encounter Procedures Procedure Name Priority Date/Time Associated Diagnosis Comments US ABDOMEN LIMITED HEPATOLOGY PROTOCOL Routine 08/06/2020 9:46 AM EDT Hepatic cirrhosis, unspecified hepatic cirrhosis type, unspecified whether ascites present documented in this encounter Results * US Abdomen Limited Hepatology Protocol (08/06/2020 9:46 AM EDT) Anatomical Region Laterality Modality Abdomen Ultrasound 08/06/2020 9:33 AM EDT Impressions 08/06/2020 9:58 AM EDT ?? Comparison 02/06/2020. 1. ??Stable coarse nodular liver without discrete liver lesion identified. No ascites. 2. ??Normal hepatopedal flow in the main portal vein and stable appearance recanalized umbilical vein Thank you for letting us participate in the care of this patient. ??If you are a health care provider and have any questions regarding this report, please contact the number below. ??For patients who have questions please contact the health healthcare management that requested your imaging first. Thank you for letting us participate in the care of this patient. If you are a health care provider and have any questions regarding this report, please contact the number below. For patients who have questions, please contact the health healthcare management that requested your imaging first. ?Jaz Burk, Staff Physician Electronically Signed Final Report ?? 08/06/2020 09:57 am Narrative 08/06/2020 9:58 AM EDT Abdominal ? (Signed Final 08/06/2020 09:57 am) PATIENT INFO: ID #: ? [id number] ?: ??[birth year] (70 yrs)(F) Name: ? ELEAZAR Kim ? Visit Date: 08/06/2020 09:33 am ? BO PERFORMED BY: Performed By: ? Rhiannon Garrison RDMS Attending: ?Elvia SHARPE, Jaz Rogel Referred By: ?TORY AYERS Location: ? [place] SERVICE(S) PROVIDED: UABDLIM - Hepatology Protocol - Abdominal ? 98223 Limited Survey Single Organ or Quadrant - [id number] INDICATIONS: cirrhosis, screen for hcc COMPARISON: US: Hepatology 02/06/20 ------ LIVER: ------ Right Lobe Length: ?? 14.8 ?? cm Echogenicity/Echotexture: ?? Coarse parenchyma with capsular ? nodularity Portal Veins: ?Hepatopetal Comment: ?Recanalized umbilical vein. No focal lesions seen. GALLBLADDER: Cholelithiasis: ?No stones visualized Wall Thickness: ?Normal wall thickness Focal Tenderness: ?Negative sonographic Vee's sign BILIARY TRACT: Intrahepatic Ducts: ?? Normal Extrahepatic Ducts: ?? Normal Common Duct Size: ? 3.0 ? mm FLUID COLLECTIONS: No ascites in the imaged RUQ & RLQ. Procedure Note Jaz Lock MD - 08/06/2020 Abdominal (Signed Final 08/06/2020 09:57 am) PATIENT INFO: ID #: [id number] : [birth year] (70 yrs)(F) Name: ELEAZAR Kim Visit Date: 08/06/2020 09:33 am BO PERFORMED BY: Performed By: Rhiannon Garrison RDMS Attending: Jaz Gan MD Referred By: TORY AYERS Location: [place] [facility] - Hep[facility] Protocol - Abdominal 95189 Limited Survey Single Organ or Quadrant - [id number] INDICATIONS: cirrhosis, screen for hcc COMPARISON: US: [...] who have questions please contact the health healthcare management that requested your imaging first. Thank you for letting us participate in the care of this patient. If you are a health care provider and have any questions regarding this report, please contact the number below. For patients who have questions, please contact the health healthcare management that requested your imaging first. Jaz Burk, Staff Physician Electronically Signed Final Report 08/06/2020 09:57 am Tory Ayers APRN [facility] ORDERAB LES documented in this encounter Visit Diagnoses Diagnosis Hepatic cirrhosis, unspecified hepatic cirrhosis type, unspecified whether ascites present documented in this encounter Care Teams Trust Manager Relationship Specialty Start Date End Date Maricarmen Galvan APRN PCP - General Family Medicine 05/10/18 07/28/23 documented as of this encounter
--- OUTSIDE RECORDS SUMMARY | 2024-02-21 13:26 | XMS_ITS | Encounter Summary ---
Author Organization [facility] [place] [address] Care Team Providers Care Trouble Tracer Name Role Phone Maricarmen Galvan JORGE Primary Care Provider [phone] Encounter Details Date Type Department Care Team (Late Contact Info) Description 08/21/2020 [place] [address] Lorenzo Hermosillo PA Social History Tobacco Use Types Packs/Day Years [...] encounter Miscellaneous Notes * Telephone Encounter - Lorenzo Hermosillo PA - 08/21/2020 1:55 PM EDT To discuss dexa documented in this encounter Plan of Treatment Upcoming Encounters Date Type Department Care Team (Late st Contact Info) Description 03/01/2024 1:30 PM EST Office Visit Hematology/Oncology at [address] [phone] Imer Baker MD [facility] DR HEMATOLOGY [place] [address] Heidi Cruz APRN [address] [place] [address] DR MEDICAL ONCOLOGY [place], [place] [id number] 03/01/2024 2:00 PM EST Infusion Hematology Oncology at [address] [phone] 03/23/2024 11:30 AM EST TH Visit (TeleHealth) [place] [address] Tory Willard APRN [facility] [place] [address] documented as of this encounter Visit Diagnoses Not on filedocumented in this encounter Care Teams Trouble Tracer Relationship Specialty Start Date End Date Mariacrmen Galvan APRN PCP - General Family Medicine 05/10/18 07/28/23 documented as of this encounter
--- OUTSIDE RECORDS SUMMARY | 2024-02-21 13:26 | XMS_ITS | Encounter Summary ---
Author Organization [facility] Address [facility] [place] [address] Care Team Providers Care Upholstery Bundler Name Role Phone Maricarmen Galvan JORGE Primary Care Provider [phone] Encounter Details Date Type Department Care Team (Late Contact Info) Description 01/15/2021 Notes [place] [address] Analia Mccarthy Social History Tobacco Use Types [...] encounter Progress Notes * Analia Mccarthy - 01/15/2021 2:37 PM EST [...] PM EST Office Visit Hematology/Oncology at [address] [phone] Imer Baker MD [facility] DR HEMATOLOGY [place] [address] Heidi Cruz APRN [address] [place] [address] [place] [address] 03/01/2024 2:00 PM EST Infusion Hematology Oncology at [address] [phone] 03/23/2024 11:30 AM EST TH Visit (TeleHealth) [place] [address] Tory Willard [facility] [place] [address] documented as of this encounter Visit Diagnoses Not on filedocumented in this encounter Care Teams Upholstery Bundler Relationship Specialty Start Date End Date Maricarmne Galvan APRN PCP - General Family Medicine 05/10/18 07/28/23 documented as of this encounter
--- OUTSIDE RECORDS SUMMARY | 2024-02-21 13:26 | XMS_ITS | Encounter Summary ---
Author Organization [facility] [place] [address] Care Team Providers Care Sole Painter Name Role Phone Maricarmen Galvan JORGE Primary Care Provider [phone] Encounter Details Date Type Department Care Team (Late st Contact Info) Description 04/30/2020 Telephone [place] [phone] Gigi Baeza RN Social History Tobacco Use Types Packs/Day [...] Telephone Encounter - Gigi Baeza RN - 04/30/2020 11:21 AM EST Manny Lugo MD sent to Gigi Baeza RN Caller: Unspecified (Yesterday, ??4:01 PM) She is not taking this anymore, we prescribed otezla yesterday, thank you Javier Beltran * Telephone Encounter - Gigi Baeza RN - 04/30/2020 9:40 AM EST Call received from [employer] asking for Rx for Humira. I am not sure if patient is still taking Humira, Will check with provider. documented in this encounter Plan of Treatment Upcoming Encounters Date Type Department Care Team (Late st Contact Info) Description 03/01/2024 1:30 PM EST Office Visit Hematology/Oncology at [address] [phone] Imer Baker MD [facility] DR [place] [address] Heidi Cruz EQUIPMENT ASSOCIATE [address] [place] [address] [place] [address] 03/01/2024 2:00 PM EST Infusion Hematology Oncology at [address] [phone] 03/23/2024 11:30 AM EST TH Visit (TeleHealth) [place] [address] Tory Willard APRN [facility] [place] [address] documented as of this encounter Visit Diagnoses Not on filedocumented in this encounter Care Teams Sole Painter Relationship Specialty Start Date End Date Maricarmen Galvan APRN PCP - General Family Medicine 05/10/18 07/28/23 documented as of this encounter
--- OUTSIDE RECORDS SUMMARY | 2024-02-21 13:26 | XMS_ITS | Encounter Summary ---
Author Organization [facility] Address [facility] [place] [address] Care Team Providers Care Station Installation Supervisor Name Role Phone Maricarmen Galvan APRN Primary Care Provider [phone] Encounter Details Date Type Department Care Team (Latest Contact Info) Description 03/12/2021 8:55 AM EST - 03/12/2021 11:59 PM EST Hospital En[place] [phone] Anderson Stewart MD [facility] [place] [address] Liver cirrhosis secondary to ALFARO Discharge Disposition: Home Social History Tobacco Use [...] 1:30 PM EST Office Visit Hematology/Oncology at [address] [phone] Imer Baker MD [facility] DR [place] [address] Heidi Cruz [address] MEDICAL ONCOLOGY [place], [place] [phone] 03/01/2024 2:00 PM EST Infusion Hematology Oncology at [address] [phone] 03/23/2024 11:30 AM EST TH Visit (TeleHealth) [place] [address] Tory Willard [facility] [place] [address] documented as of this encounter Procedures Procedure Name Priority Date/Time Associated Diagnosis Comments US ABDOMEN LIMITED HEPATOLOGY PROTOCOL Routine 03/12/2021 9:10 AM EST 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 ??Similar coarse liver parenchyma with capsular nodularity consistent with known cirrhosis. No sonographically evident hepatic mass. 2. ??No ascites in the imaged right upper and right lower quadrants of the abdomen. 3. ??Redemonstrated recanalized umbilical vein consistent with underlying portal hypertension. Thank you for letting us participate in the care of this patient. If you are a health care provider and have any questions regarding this report, please contact the number above. For patients who have questions, please contact the health manager career that requested your imaging first. ? Elida Allen, Staff Physician Electronically Signed Final Report ?? 03/12/2021 09:22 am Narrative 03/12/2021 9:23 AM EST Abdominal ? (Signed Final 03/12/2021 09:22 am) PATIENT INFO: ID #: ? [id number] ?: ??[birth year] (70 yrs)(F) Name: ? ELEAZAR Kim ? Visit Date: 03/12/2021 09:08 am ? BO PERFORMED BY: Performed By: ? Apryl Crockett RDMS Attending: ?Tiffany SHARPE, Elida Casper Referred By: ?ANDERSON STEWART Location: ? [place] SERVICE(S) PROVIDED: UABDLIM - Hepatology Protocol - Abdominal ? 80185 Limited Survey Single Organ or Quadrant - [id number] INDICATIONS: compensated ALFARO cirrhosis, screen for hepatoma COMPARISON: Ultrasound abdomen limited hepatology protocol: 08/06/20 ------ LIVER: ------ Right Lobe Length: ?? 16.1 ?? cm Echogenicity/Echotexture: ?? Coarse parenchyma with capsular ? nodularity Comment: ?No focal lesion seen. Recanalized umbilical vein ? redemonstrated. GALLBLADDER: Cholelithiasis: ?No stones visualized Wall Thickness: ?Normal wall thickness Focal Tenderness: ?Negative sonographic Vee's sign BILIARY TRACT: Intrahepatic Ducts: ?? Normal Extrahepatic Ducts: ?? Normal where seen Common Duct Size: ? 3.0 ? mm FLUID COLLECTIONS: No ascites in the imaged RUQ & RLQ. Procedure Note Elida Allen MD - 03/12/2021 Abdominal (Signed Final 03/12/2021 09:22 am) PATIENT INFO: ID #: [id number] : [birth year] (70 yrs)(F) Name: ELEAZAR Kim Visit Date: 03/12/2021 09:08 am BO PERFORMED BY: Performed By: Apryl Crockett RDMS Attending: Elida Allen MD Referred By: ANDERSON STEWART Location: [place] SERVICE(S) PROVIDED: UABDLIM - Hepatology Protocol - Abdominal 94159 Limited Survey Single Organ or Quadrant - [id number] INDICATIONS: compensated ALFARO cirrhosis, screen for hepatoma COMPARISON: Ultrasound abdomen limited hepatology protocol: 08/06/20 ------ LIVER: ------ Right Lobe Length: 16.1 cm Echogenicity/Echotexture: Coarse parenchyma with capsular nodularity Comment: No focal lesion seen. Recanalized umbilical vein redemonstrated. GALLBLADDER: Cholelithiasis: No stones [...] umbilical vein consistent with underlying portal hypertension. Thank you for letting us participate in the care of this patient. If you are a health care provider and have any questions regarding this report, please contact the number above. For patients who have questions, please contact the health manager career that requested your imaging first. 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
--- OUTSIDE RECORDS SUMMARY | 2024-02-21 13:26 | XMS_ITS | Encounter Summary ---
[place] [address] Care Team Providers Care Rod Mill Tender Name Role Phone Maricarmen Galvan APRN Primary Care Provider [phone] Reason for Visit * Reason Comments Specialty Pharmacy Review adalimumab (Hu eulalia,CF, Pen) 40 mg/0.4 mL Encounter Details Date Type Department Care Team (Late st Contact Info) Description 04/29/2020 Specialty [place] [phone] Bashir Oakes Social History Tobacco Use Types [...] encounter Progress Notes * Bashir Oakes - 04/29/2020 8:37 AM EST The - Specialty Pharmacy has completed a benefits investigation for Shereen Vega to reviewtheir eligibility to fill at [facility]. Per patient's medication list they are prescribed adalimumab (Humira,CF, Pen) 40 mg/0.4 mL and the medication is not able to be filled at the [facility]. documented in this encounter Plan of Treatment Upcoming Encounters Date Type Department Care Team (Late st Contact Info) Description 03/01/2024 1:30 PM EST Office Visit Hematology/Oncology at [address] [phone] Imer Baker MD [facility] DR HEMATOLOGY [place] [address] Heidi Cruz APRN [address] [place] [address] [place] [address] 03/01/2024 2:00 PM EST Infusion Hematology Oncology at [address] [phone] 03/23/2024 11:30 AM EST TH Visit (TeleHealth) [place] [address] Tory Willard APRN [facility] [place] [address] documented as of this encounter Visit Diagnoses Not on filedocumented in this encounter Care Teams Rod Mill Tender Relationship Specialty Start Date End Date Maricarmen Galvan APRN PCP - General Family Medicine 05/10/18 07/28/23 documented as of this encounter
--- OUTSIDE RECORDS SUMMARY | 2024-02-21 13:26 | XMS_ITS | Encounter Summary ---
[place] [address] Care Team Providers Care Mortgage Loan Assistant Name Role Phone Maricarmen Galvan APRN Primary Care Provider [phone] Encounter Details Date Type Department Care Team ([facility] st Contact Info) Description 08/06/2020 11:30 AM EDT Office [place] [phone] Joe Hong PA [address] [place] [address] [place] [address] Liver cirrhosis secondary to ALFARO (Primary Dx) Social History Tobacco Use Types [...] documented in this encounter Progress Notes * Joe Hong PA - 08/06/2020 11:30 AM EDT Hepatology Follow Up Note Patient: Eleazar Soriano Gender: female : 1950 Provider: SHARITA Champagne Referring Physician: Maricarmen Galvan APRN HISTORY OF PRESENT ILLNESS Eleazar Soriano is a 70 y.o. year old female with history of diabetes, psoriatic arthritis, andcirrhosis. She had an ultrasound today and returns for follow up. She was last seen by Tory Willard APRN in January. She is doing well without any major complaints today. She denies abdominal pain, bloating/swelling,jaundice, edema, or confusion/memory issues. She states he sugars have been up and down, but her last A1c was just above 7%. She was started [...] Vitals: 08/06/20 1124 BP: 110/65 BP Location ([facility]): Right arm Patient Position: Sitting BP Cuff [...] and stable appearance recanalized umbilical vein ASSESSMENT/PLAN Eleazar Soriano is a 70 y.o. female with history of diabetes, hyperlipidemia, psoriatic arthritis and well-compensated cirrhosis, likely due to ALFARO or medication (prior Methotrexate use, though brief). She has been stable from a liver standpoint since her diagnosis. MELD-Na is 7 with yesterday' s labs. 1. Cirrhosis. Etiology possibly ALFARO. Her [...] Hong PA-C Section of Gastroenterology [place] [address] Copy: Maricarmen Galvan APRN [address] / [place] [address] documented in this encounter Plan of Treatment Upcoming Encounters Date Type Department Care Team (Late st Contact Info) Description 03/01/2024 1:30 PM EST Office Visit Hematology/Oncology at [address] [phone] Imer Baker MD [facility] [address] [place] [address] Heidi Cruz [address] [place] [address] 03/01/2024 2:00 PM EST Infusion Hematology Oncology at [address] [phone] 03/23/2024 11:30 AM EST TH Visit (TeleHealth) [place] [address] Tory Willard APRN [facility] [place] [place] [address] documented as of this encounter Results * [...] hypertension. Electronically signed by: Elida Allen MD, [facility] ([phone]), at 03/12/2021 9:15 AM Thank you for letting us participate in the care of this patient. If you are a health care provider and have any questions regarding this report, please contact the number above. For patients who have questions, please contact the health animal care technician that requested your imaging first. ? Elida Allen, Staff Physician Electronically Signed Final Report ?? 03/12/2021 09:22 am Narrative 03/12/2021 9:23 AM EST Abdominal ? (Signed Final 03/12/2021 09:22 am) PATIENT INFO: ID #: ? [id number] ?: ??[birth year] (70 yrs)(F) Name: ? ELEAZAR M ? Visit Date: 03/12/2021 09:08 am ? BO PERFORMED BY: Performed By: ? Apryl Crockett RDMS Attending: ?Elida Allen MD. Referred By: ?MARIKA HODGESR Location: ? [place] SERVICE(S) PROVIDED: UABDLIM - Hepatology Protocol - Abdominal ? 31762 Limited Survey Single Organ or Quadrant - [id number] INDICATIONS: compensated ALFARO cirrhosis, screen for hepatoma [...] 03/12/2021 09:22 am) PATIENT INFO: ID #: [id number] : [birth year] (70 yrs)(F) Name: ELEAZAR Kim Visit Date: 03/12/2021 09:08 am SORIANO PERFORMED BY: Performed By: Apryl Crockett RDMS Attending: Eldia Allen MD Referred By: MARIKA STEWART Location: [place] SERVICE(S) PROVIDED: UABDLIM - Hepatology Protocol - Abdominal 15263 Limited Survey Single Organ or Quadrant - [id number] INDICATIONS: compensated ALFARO cirrhosis, screen for hepatoma [...] hypertension. Electronically signed by: Elida Allen MD, [facility] ([phone]), at 03/12/2021 9:15 AM Thank you for letting us participate in the care of this patient. If you are a health care provider and have any questions regarding this report, please contact the number above. For patients who have questions, please contact the health animal care technician that requested your imaging first. Elida Allen, Staff Physician Electronically Signed Final Report 03/12/2021 09:22 am Marika Stewart MD IM US GEN ORDERABLE S * AFP tumor marker (03/12/2021 8:45 AM EST) Alpha Fetoprotein <1.9 <=8.3 ng/mL [facility] Blood 03/12/2021 8:45 AM EST 03/12/2021 9:02 AM EST Narrative Resulting Agency Comment Spec In Lab Marika Stewart MD CHEMISTRY ORDERABLES [facility] [place] [address] * Prothrombin Time (03/12/2021 8:45 AM EST) [...] Spec In Lab Marika Stewart MD HEMATOLOGY ORDERABLE S [facility] [place] [address] * Comprehensive metabolic panel (non-fasting) (03/12/2021 8:45 [...] In Lab Marika Stewart MD CHEMISTRY ORDERABLES [facility] [place] [address] documented in this encounter Visit Diagnoses Diagnosis Liver cirrhosis secondary to ALFARO- Primary Other chronic nonalcoholic liver 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
--- OUTSIDE RECORDS SUMMARY | 2024-02-21 13:26 | XMS_ITS | Encounter Summary ---
Author Organization [facility] Address [facility] [place] [address] Care Team Providers Care Junior Loan Processor Name Role Phone Maricarmen Galvan JORGE Primary Care Provider [phone] Reason for Visit * Reason Comments Specialty Pharmacy Review Apremilast (Ot ezla) Encounter Details Date Type Department Care Team (Late st Contact Info) Description 04/29/2020 Specialty [place] [address] Jennifer Judd, [facility] Social History [...] PM EST Office Visit Hematology/Oncology at [address] [phone] Imer Baker MD [facility] [address] [place] [address] Heidi Cruz APRN [address] [place] [address] DR MEDICAL ONCOLOGY [place], [place] [address] 03/01/2024 2:00 PM EST Infusion Hematology Oncology at [address] [phone] 03/23/2024 11:30 AM EST TH Visit (TeleHealth) [place] [address] oTry Willard APRN [facility] [place] [place] [address] documented as of this encounter Visit Diagnoses Not on filedocumented in this encounter Care Teams Junior Loan Processor Relationship Specialty Start Date End Date Maricarmen Galvan APRN PCP - General Family Medicine 05/10/18 07/28/23 documented as of this encounter
--- OUTSIDE RECORDS SUMMARY | 2024-02-21 13:26 | XMS_ITS | Encounter Summary ---
Author Organization [facility] [place] [address] Care Team Providers Care Transportation Equipment Painter Name Role Phone Maricarmen Galvan JORGE Primary Care Provider [phone] Encounter Details Date Type Department Care Team (Late st Contact Info) Description 02/06/2020 11:30 AM EST Office [place] [address] Tory Ayers SANDFILL OPERATOR SURFACE [facility] [place] [address] Hepatic cirrhosis, unspecified hepatic cirrhosis type, unspecified [...] documented as of this encounter Patient Instructions * Patient Instructions* Tory Ayers APRN - 02/06/2020 11:30 AM EST [...] happy to say there were no lesions inthe liver to suggest liver cancer. I suggest repeating an ultrasound in 6 months. Recommend follow up in 6 months with labs, ultrasound and visit. documented in this encounter Progress Notes * Tory Ayers APRN - 02/06/2020 11:30 AM EST Images from the original note were not included. Hepatology Follow Up Note - Telehealth (via [employer]) Patient: Eleazar Vega Gender: female : 1950 Provider: Tory Ayers NP Referring Physician: Maricarmen Galvan APRN HISTORY OF PRESENT ILLNESS Eleazar Vega is a 69 y.o. year old female with history of diabetes, psoriatic arthritis, andcirrhosis. She had an ultrasound today and returns for follow up. She has been feeling well. Her wasn't able to come into the appointment because of COVID soshe would like to have things written down [...] taking for the 02/06/20 encounter (Office Visit) withTory Ayers APRN. Current Facility-Administered Medications for the 02/06/20 encounter (Office Visit) with Tory Ayers APRN [...] Normal gallbladder. No biliary duct dilatation. ASSESSMENT/PLAN Eleazar Vega is a 69 y.o. [...] a year and I would not expect cirrhosisto develop in that short of a time period. [...] BMI (23). Her liver enzymes are normal. D iscussed the importance of good glycemic control. 2. Varices surveillance. EGD 07/2019 with no varices. Can repeat in 2-3 years. 3. HCC surveillance. US today with no lesions, plan to repeat in 6 months. 4. Preventative health. She should be vaccinated to hepatitis a and B. We discussed that she shouldnot take NSAIDs and that it is okay to take up to 2000 mg of Tylenol per day. Plan: - Follow up in 6 months with labs an Tory Ayers APRN Section of Gastroenterology [place] [address] Copy: Maricarmen Galvan APRN [address] / [place] [address] 15 minutes of this 20 minute visit in face to face discussion regarding disease, prognosis and treatment documented in this encounter Plan of Treatment Upcoming Encounters Date Type Department Care Team (Late st Contact Info) Description 03/01/2024 1:30 PM EST Office Visit Hematology/Oncology at [address] [phone] Imer Baker MD [facility] [place] [address] Heidi Cruz, [address] MEDICAL ONCOLOGY [place], [place] [address] 03/01/2024 2:00 PM EST Infusion Hematology Oncology at [address] [phone] 03/23/2024 11:30 AM EST TH Visit (TeleHealth) [place] [phone] Tory Ayers SANDFILL OPERATOR SURFACE [facility] [place] [address] Scheduled Orders Name Type Priority Associated Diagnoses Orde r Schedule Comprehensive metabolic panel (non-fasting) Lab Routine Hepatic cirrhosis, unspecified hepatic cirrhosis type, unspecified whether ascites present Expected: 08/06/2020 (Approximate), Expires: 02/05/2021 CBC (with Diff) Lab Routine Hepatic cirrhosis, unspecified hepatic cirrhosis type, unspecified whether ascites present Expected: 08/06/2020 (Approximate), Expires: 02/05/2021 documented as of this encounter Results * [...] have questions please contact the health healthcare administration internship that requested your imaging first. Thank you for letting us participate in the care of this patient. If you are a health care provider and have any questions regarding this report, please contact the number below. For patients who have questions, please contact the health healthcare administration internship that requested your imaging first. ?Jaz Burk, Staff Physician Electronically Signed Final Report ?? 08/06/2020 09:57 am Narrative 08/06/2020 9:58 AM EDT Abdominal ? (Signed Final 08/06/2020 09:57 am) PATIENT INFO: ID #: ? [id number] ?: [birth year] (70 yrs)(F) Name: ? ELEAZAR M ? Visit Date: 08/06/2020 09:33 am ? BO PERFORMED BY: Performed By: ? Rhiannon Garrison RDMS Attending: ?Elvia SHARPE, Jaz Rogel Referred By: ?TORY AYERS Location: ? [place] SERVICE(S) PROVIDED: UABDLIM - Hepatology Protocol - Abdominal ? 90032 Limited Survey Single Organ or Quadrant - [id number] INDICATIONS: cirrhosis, screen for hcc COMPARISON: US: [...] 08/06/2020 09:57 am) PATIENT INFO: ID #: [id number] : [birth year] (70 yrs)(F) Name: ELEAZAR Kim Visit Date: 08/06/2020 09:33 am BO PERFORMED BY: Performed By: Rhiannon Garrison RDMS Attending: Jaz Castro MD Referred By: TORY AYERS Location: [place] SERVICE(S) PROVIDED: UABDLIM - Hepatology Protocol - Abdominal 18339 Limited Survey Single Organ or Quadrant - [id number] INDICATIONS: cirrhosis, screen for hcc COMPARISON: US: [...] have questions please contact the health healthcare administration internship that requested your imaging first. Thank you for letting us participate in the care of this patient. If you are a health care provider and have any questions regarding this report, please contact the number below. For patients who have questions, please contact the health healthcare administration internship that requested your imaging first. Jaz Burk, Staff Physician Electronically Signed Final Report 08/06/2020 09:57 am Tory Ayers APRN IMG US GEN ORDERAB LES * Prothrombin Time (08/05/2020 4:19 PM EDT) Prothrombin Time 12.1 9.4 - 12.5 sec [facility] International Normalization Ratio 1.1 [facility] Comment: An INR <2.0 indicates [...] Lab Tory Ayers APRN HEMATOLOGY ORDERAB LES [facility] [place] [address] documented in this encounter Visit Diagnoses Diagnosis Hepatic cirrhosis, unspecified hepatic cirrhosis type, unspecified whether ascites present Hepatic cirrhosis, unspecified hepatic cirrhosis type, unspecified whether ascites present documented in this encounter Care Teams Transportation Equipment Painter Relationship Specialty Start Date End Date Maricarmen Galvan APRN PCP - General Family Medicine 05/10/18 07/28/23 documented as of this encounter
--- OUTSIDE RECORDS SUMMARY | 2024-02-21 13:26 | XMS_ITS | Encounter Summary ---
Author Organization [facility] Address [facility] [place] [address] Care Team Providers Care Parent Partner Name Role Phone Maricarmen Galvan APRN Primary Care Provider [phone] Encounter Details Date Type Department Care Team (Late st Contact Info) Description 05/15/2021 [place] [address] Jennifer Judd [facility] Social History Tobacco Use Types [...] Notes * Telephone Encounter - Jennifer Judd RP - 06/06/2021 1:39 PM EDT After investigating this issue further, we learned in order for the patient to qualify for the program, she must be in the process of applying for insurance or they will not consider her application.I spoke with [employer] and told them they need to at least be in process of applying for insurance and then they will be able to apply. They are aware, but I am not sure if they are going to follow thru with applying. * Telephone Encounter - Jennifer Judd RP - 05/15/2021 9:41 AM EDT [facility] Riveter Assistance Update The [facility] has looked into assistance for the following patient, but we have not been able to find any copay cards or foundations with available funding for them. The patient has beenprovided information to apply for bottle blowing machine tender assistance program to receive free medication. The [facility] will follow-up with the patient [...] PM EST Office Visit Hematology/Oncology at [address] [phone] Imer Baker MD [facility] DR HEMATOLOGY [place] [address] Heidi Cruz APRN [address] [place] [address] [place] [address] 03/01/2024 2:00 PM EST Infusion Hematology Oncology at [address] [phone] 03/23/2024 11:30 AM EST TH Visit (TeleHealth) [place] [address] Tory Willard APRN [facility] [place] [address] documented as of this encounter Visit Diagnoses Not on filedocumented in this encounter Care Teams Parent Partner Relationship Specialty Start Date End Date Maricarmen Galvan APRN PCP - General Family Medicine 05/10/18 07/28/23 documented as of this encounter
--- OUTSIDE RECORDS SUMMARY | 2024-02-21 13:26 | XMS_ITS | Encounter Summary ---
Author Organization [facility] [place] [address] Care Team Providers Care Unit Support Representative Name Role Phone Maricarmen Galvan JORGE Primary Care Provider [phone] Encounter Details Date Type Department Care Team (Latest Contact Info) Description 02/06/2020 10:30 AM EST Laboratory Appointment Lab [address] [place] [phone] Hepatic cirrhosis, unspecified hepatic cirrhosis type, unspecified [...] PM EST Office Visit Hematology/Oncology at [address] [phone] [facility] DR [place] [address] Heidi Cruz APRN [address] [place] [place] [address] DR MEDICAL ONCOLOGY [place], [place] [address] 03/01/2024 2:00 PM EST Infusion Hematology Oncology at [address] [phone] 03/23/2024 11:30 AM EST TH Visit (TeleHealth) [place] [phone] Tory Willard APRN [facility] [place] [address] documented as of this encounter Procedures Procedure Name Priority Date/Time Associated Diagnosis Comments HEMOGRAM Routine 02/06/2020 10:49 AM EST Hepatic cirrhosis, unspecified hepatic cirrhosis type, unspecified whether ascites present DIFFERENTIAL, AUTOMATED Routine 02/06/2020 10:49 AM EST Hepatic cirrhosis, unspecified hepatic cirrhosis type, unspecified whether ascites present HC VENIPUNCTURE Routine 02/06/2020 10:49 AM EST Hepatic cirrhosis, unspecified hepatic cirrhosis type, unspecified whether ascites present HC CBC,PLT & AUTO DIFF Routine 02/06/2020 10:49 AM EST Hepatic cirrhosis, unspecified hepatic cirrhosis type, unspecified whether ascites present documented in this encounter Results * (ABNORMAL) Differential, Automated (02/06/2020 10:49 AM EST) Neutrophil % 23.4 % [facility] Neutrophil Absolute 1.38(L) 1.70 - 6.10 x10(3)/mc L [facility] Lymph % 32.3 % [facility] Lymphocytes Abs 1.9 0.9 - 3.2 x10(3)/mc L [facility] Monocyte % 10.1 % [facility] Monocyte Abs 0.6 0.3 - 0.9 x10(3)/mc L [facility] Eos % 32.8 % [facility] Eosinophils Abs 1.9(H) 0.0 - 0.4 x10(3)/mc L [facility] Basophil % 1.2 % [facility] Baso Absolute 0.1 0.0 - 0.1 x10(3)/mc L [facility] Immature Gran % 0.20 % [facility] Comment: Immature granulocytes(IG's)percentage and absolute count will include metamyelocytes, myelocytes, and promyelocytes. Blood smears from CBCs yielding IG's will be scanned manually for concordance. If this scan disagrees with the automated IG or if promyelocytes are noted, a manual differential will be performed. Immature Gran Absolute 0.01 0.00 - 0.04 x10(3)/mc L [facility] Blood specimen (specimen) 02/06/2020 10:49 AM EST 02/06/2020 11:02 AM EST Narrative Resulting Agency Comment Spec In Lab Tory Willard APRN HEMATOLOGY ORDERAB LES [facility] [place] [address] * (ABNORMAL) Hemogram (02/06/2020 10:49 AM EST) White Blood Cell 5.9 4.0 - 9.5 x10(3)/mc L [facility] Red Blood Cell 3.94(L) 4.00 - 5.21 x10(6)/mc L [facility] Hemoglobin 11.6(L) 11.7 - 15.5 gm/dL [facility] Hematocrit 35.7 35.7 - 45.8 % [facility] Mean Cell Volume 90.6 82.6 - 94.4 fL [facility] Mean Cell Hemoglobin 29.4 27.1 - 32.0 pg [facility] Mean Cell Hemoglobin Concentration 32.5 31.7 - 35.0 gm/dL [facility] Platelet 102(L) 145 - 357 x10(3)/mc L [facility] RDW Standard Deviation 50.1(H) 37.0 - 46.0 fL [facility] RDW coefficient of variation 15.1(H) 11.5 - 14.1 % [facility] Mean Platelet Volume 9.9 7.6 - 12.9 fL [facility] NRBC% auto 0.0 % [facility] NRBC Absolute 0.000 0.000 - 0.000 x10(3)/mc L [facility] Blood specimen (specimen) 02/06/2020 10:49 AM EST 02/06/2020 11:02 AM EST Narrative Resulting Agency Comment Spec In Lab Tory Willard APRN HEMATOLOGY ORDERAB LES Performing Organization Address [facility] Co de Phone Number [facility] [place] [address] * Prothrombin Time (02/06/2020 10:49 AM EST) Prothrombin Time 11.7 9.4 - 12.5 sec [facility] International Normalization Ratio 1.0 [facility] Comment: An INR <2.0 indicates [...] be appropriate depending on clinical circumstances. Blood specimen (specimen) 02/06/2020 10:49 AM EST 02/06/2020 11:02 AM EST Narrative Resulting Agency Comment Spec In Lab Tory Willard APRN HEMATOLOGY ORDERAB LES Performing Organization Address City/[facility] Co de Phone Number [facility] [place] [address] documented in this encounter Visit Diagnoses Diagnosis Hepatic cirrhosis, unspecified hepatic cirrhosis type, unspecified whether ascites present documented in this encounter Care Teams Unit Support Representative Relationship Specialty Start Date End Date Maricarmen Galvan APRN PCP - General Family Medicine 05/10/18 07/28/23 documented as of this encounter
--- OUTSIDE RECORDS SUMMARY | 2024-02-21 13:26 | XMS_ITS | Encounter Summary ---
Author Organization [facility] [place] [address] Care Team Providers Care Member Of Congress Name Role Phone Maricarmen Galvan JORGE Primary Care Provider [phone] Encounter Details Date Type Department Care Team (Late st Contact Info) Description 03/12/2021 11:00 AM EST Office [place] [phone] Tory Ayers APRN [facility] [place] [address] Hepatic cirrhosis, unspecified hepatic cirrhosis type, unspecified [...] Progress Notes * Tory Ayers APRN - 03/12/2021 11:00 AM EST Hepatology Follow Up Note Patient: Eleazar Vega Gender: female : 1950 Provider: TORY AYERS APRN Referring Physician: Maricarmen Galvan APRN HISTORY OF PRESENT ILLNESS Eleazar Vega is a 70 y.o. year old female with history of diabetes, psoriatic arthritis, andcirrhosis. She had an ultrasound today and returns for follow up. She has been feeling well, no significant changes in her health. She denies any changes in her memory and has had neurocognitive testing showing no significant decline in cognitive function in the past 2 years. Denies any ascites or blood in [...] Vitals: 03/12/21 1059 BP: 100/62 BP Location (NBP): Left arm Patient Position: [...] vein consistent with underlying portal hypertension. ASSESSMENT/PLAN Eleazar Vega is a 70 y.o. female with history of diabetes, hyperlipidemia, psoriatic arthritis and well-compensated cirrhosis, likely due to ALFARO or medication (prior Methotrexate use, though brief). She has been stable from a liver standpoint since her diagnosis. MELD-Na is 7 with today's bl ood work. 1. Cirrhosis. [...] platelets are low. Plan to place order forrepeat EGD, as she will be due by [...] Ayers APRN Section of Gastroenterology [place] [address] Copy: Maricarmen Galvan APRN [address] / [place] [address] documented in this encounter Plan of Treatment Upcoming Encounters Date Type Department Care Team (Late st Contact Info) Description 03/01/2024 1:30 PM EST Office Visit Hematology/Oncology at [address] [phone] Imer Baker MD [facility] DR [place] [address] Heidi Cruz APRN [address] [place] [address] [place] [address] 03/01/2024 2:00 PM EST Infusion Hematology Oncology at [address] [phone] 03/23/2024 11:30 AM EST TH Visit (TeleHealth) [place] [address] Tory Ayers APRN [facility] [place] [address] documented as of this encounter Results * AFP tumor marker (09/11/2021 9:37 AM EDT) Pathologist [facility] Alpha Fetoprotein <1.9 <=8.3 ng/mL [facility] Comment: This result was generated using a Cliff Divina immunoassay. ??Results obtained from other methods or manufacturers cannot be used interchangeably with this method. Blood 09/11/2021 9:37 AM EDT 09/11/2021 9:47 AM EDT Narrative Resulting Agency Comment Spec In Lab Tory Ayers APRN CHEMISTRY ORDERABL ES Performing Organization Address [facility] Co de Phone Number [facility] [place] [address] * Prothrombin Time (09/11/2021 9:37 AM EDT) [facility] Prothrombin Time 11.9 9.4 - 12.5 sec [facility] [...] Lab Tory Ayers APRN HEMATOLOGY ORDERAB LES Performing Organization Address [facility]/ZIP Co de Phone Number [facility] [place] [address] * (ABNORMAL) Comprehensive metabolic panel (non-fasting) (09/11/2021 9:37 AM EDT) Pathologist [facility] Glucose 128 65 - 199 mg/dL [facility] Comment:Diabetes: >=200 mg/d L plus symptoms Blood Urea Nitrogen 16 8 - 18 mg/dL [facility] Creatinine 1.17 0.70 - 1.20 mg/dL [facility] Sodium 141 135 - 145 mmol/L [facility] Potassium 4.2 3.5 - 5.0 mmol/L [facility] Comment: Please note: ??Patients with WBC >100,000 may have falsely elevated Potassium levels. ??For accurate Potassium quantification in these patients send serum separator tube (gold top) for subsequent determinations. ??Contact the Clinical Chemistry Laboratory if there are any questions. Chloride 104 98 - 107 mmol/L [facility] Carbon Dioxide 27 22 - 31 mmol/L [facility] Anion Gap 10 5 - 15 mmol/L [facility] Calcium 10.1 8.5 - 10.5 mg/dL [facility] Protein, Total 7.9 6.1 - 8.0 g/dL [facility] Albumin 4.3 3.2 - 5.2 g/dL [facility] Aspartate Aminotransferase 25 0 - 30 unit/L [facility] Alanine Aminotransferase 12 0 - 30 unit/L [facility] Alkaline Phosphatase 64 35 - 105 unit/L [facility] Bilirubin, Total 0.5 0.2 - 1.3 mg/dL [facility] Est Glomerular Filtration Rate 50(L) >=60 mL/min/1. 73 m?? [facility] Comment: This patient's estimated GFR [...] Comment Spec In Lab Tory Ayers JORGE CHEMISTRY ORDERABL ES [facility] [place] [address] * US Abdomen Limited Hepatology Protocol (09/11/2021 [...] ascites. Electronically signed by: Marquez Romeo MD, [facility] ([phone]), at 09/11/2021 9:01 AM Thank you for letting us participate in the care of this patient. If you are a health care provider and have any questions regarding this report, please contact the number above. For patients who have questions, please contact the health palliative care specialist that requested your imaging first. ?Marquez Romeo, Staff Physician Electronically Signed Final Report ?? 09/11/2021 09:07 am Narrative 09/11/2021 9:07 AM EDT Abdominal ? (Signed Final 09/11/2021 09:07 am) PATIENT INFO: ID #: ? [id number] ?: ??[birth year] (71 yrs)(F) Name: ? ELEAZAR Kim ? Visit Date: 09/11/2021 08:31 am ? BO PERFORMED BY: Performed By: ? Nadine Kc RDMS Attending: ?Marquez Romeo MD Referred By: ?TORY AYERS Location: ? [place] SERVICE(S) PROVIDED: [facility] - Hepatology Protocol - Abdominal ? 90378 Limited Survey Single Organ or Quadrant - [id number] INDICATIONS: cirrhosis, screen for hcc COMPARISON: US: [...] 09/11/2021 09:07 am) PATIENT INFO: ID #: [id number] : [birth year] (71 yrs)(F) Name: ELEAZAR Kim Visit Date: 09/11/2021 08:31 am BO PERFORMED BY: Performed By: Nadine Kc RDMS Attending: Marquez Romeo MD Referred By: TORY AYERS Location: [place] [facility] - Hepatology Protocol - Abdominal 44519 Limited Survey Single Organ or Quadrant - [id number] INDICATIONS: cirrhosis, screen for hcc COMPARISON: US: [...] ascites. Electronically signed by: Marquez Romeo MD, [facility] ([phone]), at 09/11/2021 9:01 AM Thank you for letting us participate in the care of this patient. If you are a health care provider and have any questions regarding this report, please contact the number above. For patients who have questions, please contact the health palliative care specialist that requested your imaging first. Marquez Romeo, Staff Physician Electronically Signed Final Report 09/11/2021 09:07 am Tory Ayers APRN IMG GEN ORDERAB LES documented in this encounter Visit Diagnoses Diagnosis Hepatic cirrhosis, unspecified hepatic cirrhosis type, unspecified whether ascites present Hepatic cirrhosis, unspecified hepatic cirrhosis type, unspecified whether ascites present documented in this encounter Care Teams Member Of Congress Relationship Specialty Start Date End Date Maricarmen Galvan APRN PCP - General Family Medicine 05/10/18 07/28/23 documented as of this encounter
--- OUTSIDE RECORDS SUMMARY | 2024-02-21 13:27 | XMS_ITS | Encounter Summary ---
Author Organization [facility] [place] [address] Care Team Providers Care Parts Room Clerk Name Role Phone Maricarmen Galvan APRN Primary Care Provider [phone] Encounter Details Date Type Department Care Team (Late Contact Info) Description 01/06/2019 Ancillary Procedure Radiology Library at [facility] [address] [place] [address] Maricarmen Galvan, JORGE [address] [place] [address] [id number] Social History Tobacco Use Types Packs/Day Years [...] PM EST Office Visit Hematology/Oncology at [address] [phone] Imer Baker MD [facility] HEMATOLOGY [place] [address] Heidi Cruz LIFE ENRICHMENT DIRECTOR [address] [place] [address] [place] [address] 03/01/2024 2:00 PM EST Infusion Hematology Oncology at [address] [phone] 03/23/2024 11:30 AM EST TH Visit (TeleHealth) [place] [address] Tory Willard APRN [facility] [place] [address] documented as of this encounter Procedures Procedure Name Priority Date/Time Associated Diagnosis Comments FILM LIBRARY STORAGE ONLY CT CHEST Routine 01/06/2019 12:00 AM EST documented in this encounter Results * Film Library- Storage Only CT Chest (01/06/2019 12:00 AM EST) Narrative [facility] - 01/13/2019 2:14 PM EST This exam is auto-finalizing. It's purpose is for storage only. Maricarmen Galvan APRN [facility] FILM LIBRARY ORD ERABLES Performing Organization Address City/State/[facility] Co de Phone Number [place] documented in this encounter Visit Diagnoses Not on filedocumented in this encounter Care Teams Parts Room Clerk Relationship Specialty Start Date End Date Maricarmen Galvan APRN PCP - General Family Medicine 05/10/18 07/28/23 documented as of this encounter
--- OUTSIDE RECORDS SUMMARY | 2024-02-21 13:27 | XMS_ITS | Encounter Summary ---
Author Organization [facility] [place] [address] Care Team Providers Care Row Boss Hoeing Name Role Phone Maricarmen Galvan JORGE Primary Care Provider [phone] Encounter Details Date Type Department Care Team (Late st Contact Info) Description 12/29/2018 Specialty [place] [address] Jonathan Morris Social History Tobacco Use Types Packs/Day Years [...] 1:30 PM EST Office Visit Hematology/Oncology at [address] [phone] Imer Baker MD [facility] DR HEMATOLOGY [place] [address] Heidi Cruz APRN [address] [place] [address] [place] [address] 03/01/2024 2:00 PM EST Infusion Hematology Oncology at [address] [phone] 03/23/2024 11:30 AM EST TH Visit (TeleHealth) [place] [address] Tory Willard APRN [facility] [place] [address] documented as of this encounter Visit Diagnoses Not on filedocumented in this encounter Care Teams Row Boss Hoeing Relationship Specialty Start Date End Date Maricarmen Galvan APRN PCP - General Family Medicine 05/10/18 07/28/23 documented as of this encounter
--- OUTSIDE RECORDS SUMMARY | 2024-02-21 13:27 | XMS_ITS | Encounter Summary ---
Author Organization [facility] [place] [address] Care Team Providers Care Hematologist Name Role Phone Maricarmen Galvan APRN Primary Care Provider [phone] Encounter Details Date Type Department Care Team (Late st Contact Info) Description 06/28/[address] [place] [place] [address] Analia Geronimo Social History Tobacco Use Types Packs/Day Years [...] encounter Miscellaneous Notes * Telephone Encounter - Analia Geronimo - 06/28/2019 11:56 AM EDT Called pt regarding her upcoming 07/10 appts, for an ultrasound and follow up with Tory. Pt statesher endoscopy last month was also cancelled, so [...] will put in a recall as a reminderfor , post COVID. documented in this encounter Plan of Treatment Upcoming Encounters Date Type Department Care Team (Late st Contact Info) Description 03/01/2024 1:30 PM EST Office Visit Hematology/Oncology at [address] [phone] Imer Baker MD [facility] DR HEMATOLOGY [place] [address] Heidi Cruz APRN [address] [place] [address] [place] [address] 03/01/2024 2:00 PM EST Infusion Hematology Oncology at [address] [phone] 03/23/2024 11:30 AM EST TH Visit (TeleHealth) [place] [address] Tory Willard APRN [facility] [place] [address] documented as of this encounter Visit Diagnoses Not on filedocumented in this encounter Care Teams Hematologist Relationship Specialty Start Date End Date Maricarmen Galvan APRN PCP - General Family Medicine 05/10/18 07/28/23 documented as of this encounter
--- OUTSIDE RECORDS SUMMARY | 2024-02-21 13:27 | XMS_ITS | Encounter Summary ---
Author Organization [facility] [place] [place] [address] Care Team Providers Care Park [employer] Name Role Phone Maricarmen Galvan APRN Primary Care Provider [phone] Reason for Visit * Reason Onset Date Comments Reminder Appointment 08/01/2019 Encounter Details Date Type Department Care Team (Late st Contact Info) Description 08/01/2019 Telephone [place] [phone] Lisbeth Mcgraw CMA Reminder Appointment Social History Tobacco Use Types Packs/Day Years [...] encounter Miscellaneous Notes * Telephone Encounter - Lisbeth Mcgraw CMA - 08/01/2019 9:28 AM EDT Called patient to review medications and allergies for their upcoming gastroenterology Type of Appointment: Phone appointment. Reach Patient during MA Check: Yes Notes for the provider: Notes for the nurse: documented in this encounter Plan of Treatment Upcoming Encounters Date Type Department Care Team (Late st Contact Info) Description 03/01/2024 1:30 PM EST Office Visit Hematology/Oncology at [address] [phone] Imer Baker MD [facility] DR [place] [address] Heidi Cruz PROTECTIVE SERVICES OFFICER [address] [place] [address] [place] [address] 03/01/2024 2:00 PM EST Infusion Hematology Oncology at [address] [phone] 03/23/2024 11:30 AM EST TH Visit (TeleHealth) [place] [address] Tory Willard [facility] [place] [address] documented as of this encounter Visit Diagnoses Not on filedocumented in this encounter Care Teams [employer] Relationship Specialty Start Date End Date Maricarmen Galvan APRN PCP - General Family Medicine 05/10/18 07/28/23 documented as of this encounter
--- OUTSIDE RECORDS SUMMARY | 2024-02-21 13:27 | XMS_ITS | Encounter Summary ---
Author Organization [facility] Address [facility] [place] [address] Care Team Providers Care Industrial Maintenance Repairer Helper Name Role Phone Maricarmen Galvan JORGE Primary Care Provider [phone] Encounter Details Date Type Department Care Team (Late st Contact Info) Description 07/06/2019 Refill [place] [address] Manny Lugo MD Psoriatic arthritis Social History [...] PM EST Office Visit Hematology/Oncology at [address] [phone] Imer Baker MD [facility] DR HEMATOLOGY [place] [address] Heidi Cruz APRN [address] [place] [address] DR MEDICAL ONCOLOGY [place], [place] [address] 03/01/2024 2:00 PM EST Infusion Hematology Oncology at [address] [phone] 03/23/2024 11:30 AM EST TH Visit (TeleHealth) [place] [address] Tory Willard APRN [facility] [place] [address] documented as of this encounter Visit Diagnoses Diagnosis Psoriatic arthritis Psoriatic arthropathy documented in this encounter Care Teams Industrial Maintenance Repairer Helper Relationship Specialty Start Date End Date Maricarmen Galvan APRN PCP - General Family Medicine 05/10/18 07/28/23 documented as of this encounter
--- OUTSIDE RECORDS SUMMARY | 2024-02-21 13:27 | XMS_ITS | Encounter Summary ---
Author Organization Formerly [facility] [place] [address] Care Team Providers Care Corporate Health Consultant Name Role Phone Maricarmen Galvan APRN Primary Care Provider [phone] Encounter Details Date Type Department Care Team (Latest Contact Info) Description 08/01/2019 11:30 AM EDT TH Visit (TeleHealth) [place] [address] Tory Ayers APRN [facility] [place] [address] Hepatic cirrhosis, unspecified hepatic cirrhosis type, unspecified [...] Progress Notes * Tory Ayers APRN - 08/01/2019 11:30 AM EDT Images from the original note were not included. Hepatology Follow Up Note - Telehealth (via doximity) Patient: Eleazar Vega Gender: female : 1950 Provider: Tory Ayers NP Referring Physician: Maricarmen Galvan APRN HISTORY OF PRESENT ILLNESS Eleazar Vega is a 69 y.o. year old female with history of diabetes, psoriatic arthritis, andcirrhosis. I first met her 6 months and she returns today for follow up via video due to the COVID-19 pandemic. Her stomach has been bothering her. Will get sharp pain that lasts about 1 minute. Pain will occur occasionally. She has a bowel movement every 2-5 days. She has a stool softener but hasn't been taking it regularly. She has been otherwise been feeling [...] Taking for the 08/01/19 encounter (Appointment) with Svitlana Ayers APRN Medication Sig Dispense Refill ??? [...] does have ALFARO risk factors including diabetes andhyperlipidemia. She is not overweight with a current BMI of 23. She does have a history of methotrexate use although states she took this for less than a year and I would not expect cirrhosis to develop in that short of a time [...] Ayers APRN Section of Gastroenterology [place] [address] Copy: Maricarmen Galvan APRN [address] / [place] [address] Patient verbally consents to this video visit and understands that this visit may be billed, similar to a clinic office visit. I provided care to the patient today via video call, 15 minutes telephone visit was spent in discussion with patient on above. documented in this encounter Plan of Treatment Upcoming Encounters Date Type Department Care Team (Late st Contact Info) Description 03/01/2024 1:30 PM EST Office Visit Hematology/Oncology at [address] [phone] Imer Baker MD [facility] DR HEMATOLOGY [place] [address] Heidi Cruz APRN [address] [place] [address] [place] [address] 03/01/2024 2:00 PM EST Infusion Hematology Oncology at [address] [phone] 03/23/2024 11:30 AM EST TH Visit (TeleHealth) [place] [address] Tory Ayers APRN [facility] [place] [address] documented as of this encounter Results * Prothrombin Time (02/06/2020 10:49 AM EST) Prothrombin Time 11.7 9.4 - 12.5 sec [facility] International Normalization Ratio 1.0 [facility] Comment: An INR <2.0 [...] Lab Tory Ayers APRN HEMATOLOGY ORDERAB LES [facility] [place] [address] * US Abdomen Limited Hepatology Protocol (02/06/2020 9:53 AM EST) Anatomical Region Laterality Modality Abdomen Ultrasound 02/06/2020 9:51 AM EST Impressions 02/06/2020 10:20 AM EST 1. ??Coarse liver parenchyma with capsular nodularity, consistent with known cirrhosis. No sonographically evident hepatic mass. 2. ??Recanalized umbilical vein consistent with underlying portal hypertension. No intra-abdominal ascites. 3. ??Normal gallbladder. No biliary duct dilatation. Thank you for letting us participate in the care of this patient. For questions regarding this report, please contact the number below. Prostate Exam Reason^cirrhosis, screen for varices ? Elida Allen, Staff Physician Electronically Signed Final Report ?? 02/06/2020 10:19 am Narrative 02/06/2020 10:20 AM EST Abdominal ? (Signed Final 02/06/2020 10:19 am) PATIENT INFO: ID #: ? [id number] ?: ??[birth year] (69 yrs)(F) Name: ? ELEAZAR Kim ? Visit Date: 02/06/2020 09:51 am ? BO PERFORMED BY: Performed By: ? Nessa Pitts RDMS Attending: ?Tiffany SHARPE, Elida Casper Referred By: ?TORY AYERS Location: ? [place] SERVICE(S) PROVIDED: ??UABDLIM - Hepatology Protocol - Abdominal ? [id number] ??Limited Survey Single Organ or Quadrant - ??[id number] INDICATIONS: ??cirrhosis, screen for varices COMPARISON: Abdominal ultrasound ??07/28/19 from [facility] ------ LIVER: ------ Right Lobe Length: ?? 15.3 ?? cm Echogenicity/Echotexture: ?? Coarse parenchyma with capsular ? nodularity Comment: ?No focal lesion seen. ??Recanalized umbilical vein GALLBLADDER: Cholelithiasis: ?No stones visualized Wall Thickness: ?Normal wall thickness Focal Tenderness: ?Negative sonographic Vee's sign BILIARY TRACT: Intrahepatic Ducts: ?? Normal Extrahepatic Ducts: ?? Normal where seen Common Duct Size: ? 2.0 ? mm FLUID COLLECTIONS: No ascites in all four quadrants of the abdomen. Procedure Note Elida Allen MD - 02/06/2020 Abdominal (Signed Final 02/06/2020 10:19 am) PATIENT INFO: ID #: [id number] : [birth year] (69 yrs)(F) Name: ELEAZAR Kim Visit Date: 02/06/2020 09:51 am BO PERFORMED BY: Performed By: Nessa Pitts RDMS Attending: Elida Allen MD Referred By: TORY AYERS Location: [place] SERVICE(S) PROVIDED: UABDLIM - Hepatology Protocol - Abdominal [id number] Limited Survey Single Organ or Quadrant - [id number] INDICATIONS: cirrhosis, screen for varices COMPARISON: Abdominal ultrasound 07/28/19 from [facility] ------ LIVER: ------ Right Lobe Length: 15.3 cm Echogenicity/Echotexture: Coarse parenchyma with capsular nodularity Comment: No focal lesion seen. Recanalized umbilical vein GALLBLADDER: Cholelithiasis: No stones visualized Wall Thickness: Normal wall thickness Focal Tenderness: Negative sonographic Vee's sign BILIARY TRACT: Intrahepatic Ducts: Normal Extrahepatic Ducts: Normal where seen Common Duct Size: 2.0 mm FLUID COLLECTIONS: No ascites in all four quadrants of the abdomen. IMPRESSION 1. Coarse liver parenchyma with capsular nodularity, consistent with known cirrhosis. No sonographically evident hepatic mass. 2. Recanalized umbilical vein consistent with underlying portal hypertension. No intra-abdominal ascites. 3. Normal gallbladder. No biliary duct dilatation. Thank you for letting us participate in the care of this patient. For questions regarding this report, please contact the number below. Electronically signed by: Elida Allen MD, [facility] ([phone]), at 02/06/2020 10:13 AM Prostate Exam Reason^cirrhosis, screen for varices Elida Allen, Staff Physician Electronically Signed Final Report 02/06/2020 10:19 am Tory Ayers APRN [facility] GEN ORDERAB LES documented in this encounter Visit Diagnoses Diagnosis Hepatic cirrhosis, unspecified hepatic cirrhosis type, unspecified whether ascites present Hepatic cirrhosis, unspecified hepatic cirrhosis type, unspecified whether ascites present documented in this encounter Care Teams Corporate Health Consultant Relationship Specialty Start Date End Date Maricarmen Galvan APRN PCP - General Family Medicine 05/10/18 07/28/23 documented as of this encounter
--- OUTSIDE RECORDS SUMMARY | 2024-02-21 13:27 | XMS_ITS | Encounter Summary ---
Author Organization [facility] Address [facility] [address] Care Team Providers Care Steam Pressure Chamber Operator Name Role Phone Maricarmen Galvan JORGE Primary Care Provider [phone] Encounter Details Date Type Department Care Team (Late Contact Info) Description 01/22/2020 Ancillary Procedure Radiology at [facility] [address] [place] [phone] Courtney Garrido MD [address] [facility] [place] [address] Social History Tobacco Use Types Packs/Day Years [...] PM EST Office Visit Hematology/Oncology at [address] [phone] Imer Baker MD [facility] DR [place] [address] Heidi Cruz APRN [address] [place] [address] [place] [address] 03/01/2024 2:00 PM EST Infusion Hematology Oncology at [address] [phone] 03/23/2024 11:30 AM EST TH Visit (TeleHealth) [place] [address] Tory Willard APRN [facility] [place] [address] documented as of this encounter Procedures Procedure Name Priority Date/Time Associated Diagnosis Comments FILM LIBRARY STORAGE ONLY MR SPINE Routine 01/22/2020 12:00 AM EST documented in this encounter Results * Film Library- Storage Only MR Spine (01/22/2020 12:00 AM EST) Narrative [facility] - 02/06/2020 3:43 PM EST This exam is auto-finalizing. It's purpose is for storage only. Courtney Garrido MD IMG FILM LIBRARY ORDERABLES Performing Organization Address City/State/[facility] Co de Phone Number [place], [place] documented in this encounter Visit Diagnoses Not on filedocumented in this encounter Care Teams Steam Pressure Chamber Operator Relationship Specialty Start Date End Date Maricarmen Galvan APRN PCP - General Family Medicine 05/10/18 07/28/23 documented as of this encounter
--- OUTSIDE RECORDS SUMMARY | 2024-02-21 13:27 | XMS_ITS | Encounter Summary ---
Author Organization [facility] Address [facility] [place] [address] Care Team Providers Care Offset Assistant Press Operator Name Role Phone Maricarmen Galvan APRN Primary Care Provider [phone] Encounter Details Date Type Department Care Team (Late st Contact Info) Description 07/25/2019 11:00 AM EDT - 07/25/2019 12:00 PM EDT [place] [address] Azam Dee MD [facility] DR GASTROENTEROLOGY [place] [address] EGD, UPPER GI ENDOSCOPY (WRVU 2.09) Social History Tobacco Use Types Packs/Day Years [...] 36.7 ??C (98.1 ??F) 07/25/2019 10:33 AM E DT Respiratory Rate - - Oxygen Saturation 98% 07/25/2019 10:33 AM EDT Inhaled Oxygen Concentration - - Weight 52.6 kg (116 lb) 07/25/2019 10:33 AM EDT Height - - Body Mass Index 22.65 03/10/2019 2:19 PM EST documented in this encounter Discharge Instructions * Discharge Instructions* Cici Clancy RN - 07/25/2019 12:36 PM EDT Upper GI Endoscopy: What to Expect at Home Your Recovery You will be able to go home after your doctor or nurse checks to make sure you are not having any problems. You may have to stay overnight if you had treatment during the test. You may have a sore throat fora day or two after the test. This [...] and when to start taking those medicines again. Make sure that you understand exactly what your [...] the day after the procedure, use an udlk-pge-qwroien spray to numb your throat. Sucking on throat lozenges and gargling with [...] occurs, please contact your Doctor. Please call [phone] before 8pm Mon-Fri with problems, questions or concerns. If you call after 8pm or on weekends, call the Hospital at [phone] and ask to speak to the Hull Inspector gun synchronizer and the injection machine operator will contact that person for you. When should you call for help? Call 911 anytime you think you may need emergency [...] any problems. Where can you learn more? [facility] View your After Visit Summary and more online at [email or web address] If you would like to provide feedback about your hospital experience, please call the Office of Patient and Family Relations at . If you have received this After Visit Summary in error, please immediately return it in person to the department, or notify the [facility] Privacy Office by calling toll free at between the hours of 8AM and 5PM to arrange for our retrieval of the documents at no cost to you. Content Version: 12.2 ?? [id number] [employer]. Care instructions adapted under license by [facility]. If you have questions about a medical condition or this instruction, always ask your healthcare professional. [employer], [employer] disclaims any warranty or liability for your [...] Release(E.C.) Take by mouth. 06/22/2019 08/0 04/2022 adalimumab (Humira,CF, Pen) 40 mg/0.4 mL Pen Injector Kit Inject 40 mg subcutaneously every 14 days. 1 kit 11 07/06/2019 04/30/2020 folic acid (FOLVITE) 400 mcg Tablet Take 400 mcg by mouth daily. 09/24/2022 diclofenac (VOLTAREN) 1 % Gel Apply 2 g topically 2 times daily as needed. 100 g 3 01/02/2019 08/05/2020 lansoprazole (PREVACID) 30 mg Capsule, Delayed Release(E.C.) [...] daily. 11/14/2021 documented as of this encounter H&P Notes * Azam Dee MD - 07/25/2019 11:50 AM [...] complication. Informed Consent signed by patient (or office services representative). documented in this encounter Plan of Treatment Upcoming Encounters Date Type Department Care Team (Late st Contact Info) Description 03/01/2024 1:30 PM EST Office Visit Hematology/Oncology at [address] [phone] Imer Baker MD [facility] DR HEMATOLOGY AND [place] [address] Heidi Cruz [address] [address] 03/01/2024 2:00 PM EST Infusion Hematology Oncology at [address] [phone] 03/23/2024 11:30 AM EST TH Visit (TeleHealth) [place] [address] Tory Willard APRN [facility] DR GASTROENTEROLOGY [place] [address] documented as of this encounter Procedures Procedure Name Priority Date/Time Associated Diagnosis Comments Upper GI Endoscopy, Diagnostic (85214) 07/25/2019 12:07 PM EDT Hepatic cirrhosis, unspecified hepatic cirrhosis type, unspecified whether ascites present UPPER GI ENDOSCOPY Routine 07/25/2019 11 :05 AM EDT POCT GLUCOSE Routine 07/25/2019 10:42 AM EDT documented in this encounter Results * UPPER GI ENDOSCOPY (07/25/2019 11:05 AM EDT) [facility] UPPER GI ENDOSCOPY [facility] Endoscopy Procedure Date: 07/25/2019 11:05 AM ? Patient Name: Shereen Vega ? N: [id number] ? Date of : 1950 ? Age: 69 ? Order #: [id number] ? Instrument Name: [id number] ? Procedure: ? Upper GI endoscopy Indications: ? Cirrhosis rule out esophageal varices Providers: ? Azam Dee MD, Rigo Montoya ? Isaiah Weaver, Kindra Peace. ? MD Humberto Referring : ?Maricarmen Padilla. Cole Medicines: ? Fentanyl 50 micrograms IV, Midazolam ? 2 mg IV Complications: ? No immediate complications. Procedure: ? Pre-Anesthesia Assessment: ? - Prior to the procedure, a History ? and Physical was performed, and ? patient medications, allergies and ? sensitivities were reviewed. The ? patient's tolerance of previous ? anesthesia was reviewed. ? - The risks and benefits of the ? procedure and the sedation options ? and risks were discussed with the ? patient. All questions were answered ? and informed consent was obtained. ? - Patient identification and proposed ? procedure were verified prior to the ? procedure by the physician, the nurse ? and the er medical technician. The procedure was ? verified in the pre-procedure area in ? the procedure room in the endoscopy ? suite. ? The procedure, indications, benefits, ? risks and alternatives were explained ? to the patient. Specifically ? discussed were potential ? complications including, but not ? limited to, bleeding, perforation, ? infection, missing a cancer, and ? adverse medication reactions. The ? Endoscope was introduced through the ? mouth, and advanced to the second ? part of duodenum. The patient ? tolerated the procedure well. The ? upper GI endoscopy was accomplished ? without difficulty. The patient ? tolerated the procedure well. ? Findings: [...] home. ? - Follow up with Tory Willard in ? Hepatology clinic as scheduled. ? Attending Participation: ? I was present and participated during the entire ? procedure, including non-anand portions. ? Dr. Srinath Dee ___ Azam Dee MD 07/25/2019 12:25:56 PM Number of Addenda: 0 Note Initiated On: 07/25/2019 11:05 AM PROVATION 07/25/2019 11:0 5 AM EDT Maricarmen Galvan [employer] GENERAL SURGICAL ORD ERABLES Performing Organization Address City/[facility] Co de Phone Number PROVATION * (ABNORMAL) POCT Glucose (07/25/2019 10:42 AM EDT) Glucose, POC 223(H) 65 - 199 mg/dL [facility] Comment: Supplemental ranges: <140 mg/dL before meals <180 mg/dL all other times of the day Blood specimen (specimen) 07/25/2019 10:42 AM EDT 07/25/2019 10:42 AM EDT Azam Dee MD POINT OF CARE ANDRIY T ORDERABLES Performing Organization Address [facility] Co de Phone Number [facility] [place] [address] documented in this encounter Visit Diagnoses Diagnosis Hepatic cirrhosis, unspecified hepatic cirrhosis type, unspecified whether ascites present documented in this encounter Administered Medications Inactive Administered Medications - up to 3 most recent administrations Medication Order MAR Action Action Date Dose Rate Site fentaNYL 50 mcg/mL multi-dose injection ONCE PRN, Starting on 07/25/19 at 1212, Until Tue 20 at 1547, Intra-Operative (Intra-Procedure), Routine Given 07/25/2019 12:12 PM EDT 50 mcg lactated ringers infusion 100 mL/hr, Intravenous, CONTINUOUS, Starting on 07/25/19 at 1045, Until 07/25/19 at 1327, Endoscopy (Day of Procedure) New Bag 07/25/2019 10:49 AM EDT 100 mL/hr 100 mL/hr midazolam (PF) (VERSED) multi-dose injection ONCE PRN, Starting on 07/25/19 at 1212, Until 07/25/19 at 1547, Intra-Operative (Intra-Procedure), Routine Given 07/25/2019 12:17 PM EDT 1 mg Given 07/25/2019 12:12 PM EDT 1 mg documented in this encounter Active and Recently Administered Medications Times are shown in EDT. Continuous Medication Order 07/23/2019 07/24/2019 07/25/2019 lactated ringers infusion (CANCELED) 100 mL/hr, Intravenous, CONTINUOUS, Starting on 07/25/19 at 1045, Until 07/25/19 at 1327, Endoscopy (Day of Procedure) 1049 (New Bag - Prov ider: Brooklyn Coker RN) PRN Medication Order 07/23/2019 07/24/2019 07/25/2019 fentaNYL 50 mcg/mL multi-dose injection (CANCELED) ONCE PRN, Starting on 07/25/19 at 1212, Until Tue 20 at 1547, Intra-Operative (Intra-Procedure), Routine 121 (Given - Provid er: Rigo Weaver RN) midazolam (PF) (VERSED) multi-dose injection (CANCELED) ONCE PRN, Starting on 07/25/19 at 1212, Until Tue 20 at 1547, Intra-Operative (Intra-Procedure), Routine 1212 (Given - Provid er: Rigo Weaver RN)1217 (Given - Provider: Rigo Weaver RN) documented in this encounter Care Teams Offset Assistant Press Operator Relationship Specialty Start Date End Date Maricarmen Galvan, JORGE PCP - General Family Medicine 05/10/18 07/28/23 documented as of this encounter
--- OUTSIDE RECORDS SUMMARY | 2024-02-21 13:27 | XMS_ITS | Encounter Summary ---
Author Organization [facility] [place] [address] Care Team Providers Care Ivory Polisher Name Role Phone Maricarmen Galvan APRN Primary Care Provider [phone] Encounter Details Date Type Department Care Team (Late st Contact Info) Description 07/05/2019 Telephone [place] [phone] Addis Mc, [facility] Social History Tobacco Use Types Packs/Day Years [...] encounter Miscellaneous Notes * Telephone Encounter - Addis Mc, [facility] - 07/05/2019 3:15 PM EDT GAP Blade Sharpener Pre-Telemedicine Phone Note [] Patient not reached [x] Patient reached and the following information was reviewed/obtained per protocol: [] Confirmed patient name and date of [] Confirmed telemedicine kristyn (Vidyo and Virtual Visit) is downloaded and functioning [] Confirmed location of patient - TeleVisit is taking place in [] [place] [] [place] [] If not on [facility], working on signing up for [facility] [] Confirmed has completed any pre-visit questionnaires [] If has not received required pre-visit questionnaires, send via [facility] [] Reviewed patient medications [] Documented self-reported vitals: [] Weight: [] Height [] pulse recorded: [x] Other information or concerns Pt would like to switch to telephone- directed her to the secretaries documented in this encounter Plan of Treatment Upcoming Encounters Date Type Department Care Team (Late st Contact Info) Description 03/01/2024 1:30 PM EST Office Visit Hematology/Oncology at [address] [phone] Imer Baker MD [facility] DR HEMATOLOGY [place] [address] Heidi Cruz [address] MEDICAL ONCOLOGY [place], [place] [phone] 03/01/2024 2:00 PM EST Infusion Hematology Oncology at [address] [phone] 03/23/2024 11:30 AM EST TH Visit (TeleHealth) [place] [address] Tory Willard APRN [facility] [place] [address] documented as of this encounter Visit Diagnoses Not on filedocumented in this encounter Care Teams Ivory Polisher Relationship Specialty Start Date End Date Maricarmen Galvan APRN PCP - General Family Medicine 05/10/18 07/28/23 documented as of this encounter
--- OUTSIDE RECORDS SUMMARY | 2024-02-21 13:27 | XMS_ITS | Encounter Summary ---
Author Organization [facility] [place] [address] Care Team Providers Care Audio Visual Technician Name Role Phone Maricarmen Galvan JORGE Primary Care Provider [phone] Encounter Details Date Type Department Care Team (Late Contact Info) Description 07/21/2019 Orders [place] [address] Tory Willard [facility] [place] [address] Hepatic cirrhosis, unspecified hepatic cirrhosis type, unspecified [...] 1:30 PM EST Office Visit Hematology/Oncology at [address] [phone] Imer Baker MD [facility] [place] [address] Heidi Cruz [address] [address] 03/01/2024 2:00 PM EST Infusion Hematology Oncology at [address] [phone] 03/23/2024 11:30 AM EST TH Visit (TeleHealth) [place] [address] Tory Willard APRN [facility] [place] [address] documented as of this encounter Visit Diagnoses Diagnosis Hepatic cirrhosis, unspecified hepatic cirrhosis type, unspecified whether ascites present documented in this encounter Care Teams Audio Visual Technician Relationship Specialty Start Date End Date Maricarmen Galvan APRN PCP - General Family Medicine 05/10/18 07/28/23 documented as of this encounter
--- OUTSIDE RECORDS SUMMARY | 2024-02-21 13:27 | XMS_ITS | Encounter Summary ---
[place] [address] Care Team Providers Care Silver Chaser Name Role Phone Maricarmen Galvan APRN Primary Care Provider [phone] Encounter Details Date Type Department Care Team (Late st Contact Info) Description 12/15/2019 Specialty [place] [address] Marina Garces RPH Social History Tobacco Use Types Packs/Day Years Used Date Smoking Tobacco: Never Smokeless Tobacco: Never Alcohol Use Standard Drinks/Week Comments No 0 (1 standard drink = 0.6 oz pur e alcohol) Sex and Gender Information Value Date Recorded Sex Assigned at Not on file Gender Identity Not on file Sexual Orientation Not on file documented as of this encounter Progress Notes * Marina Garces RPH - 12/15/2019 10:01 AM EDT [facility]- Supervisor Shipping Room Assistance Referral [facility] has [...] Insurance: No prescription insurance Medicare Part D?: Candi Garces RPH 12/15/19 10:01 AM documented in this encounter Plan of Treatment Upcoming Encounters Date Type Department Care Team (Late st Contact Info) Description 03/01/2024 1:30 PM EST Office Visit Hematology/Oncology at [address] [phone] Imer Baker MD [facility] [place] [address] Heidi Cruz PATHOLOGY LABORATORY DIRECTOR [address] [place] [address] DR [place]ICAL [place] [address] 03/01/2024 2:00 PM EST Infusion Hematology Oncology at [address] [phone] 03/23/2024 11:30 AM EST TH Visit (TeleHealth) [place] [address] Tory Willard APRN [facility] [place] [place] [address] documented as of this encounter Visit Diagnoses Not on filedocumented in this encounter Care Teams Silver Chaser Relationship Specialty Start Date End Date Maricarmen Galvan APRN PCP - General Family Medicine 05/10/18 07/28/23 documented as of this encounter
--- OUTSIDE RECORDS SUMMARY | 2024-02-21 13:27 | XMS_ITS | Encounter Summary ---
Author Organization [facility] [place] [address] Care Team Providers Care Manager Professional Development Name Role Phone Maricarmen Galvan APRN Primary Care Provider [phone] Reason for Visit * Reason Onset Date Comments Medication Refill 09/23/2018 Encounter Details Date Type Department Care Team (Late st Contact Info) Description 09/23/2018 Ref[place] [id number] Shoaib Casey RN Social History Tobacco Use Types Packs/Day [...] RN - 09/26/2018 10:31 AM EDT Girish Vega on behalf of patient requests prescription for Humira (non CF) be sent to [facility] in [place], [place]. * Telephone Encounter - Shoaib Casey RN - 09/23/2018 11:08 AM EDT Petty from [employer] (PCP office) states patient must fill Humira at [facility] in [place], [place] and that cost is significantly higher for the Humira CF as opposed to regular Humira. New prescription routed. * Telephone Encounter - Shoaib Casey RN - 09/23/2018 9:20 AM EDT Petty from [employer] leaves message on nurse triage line regarding Humira. Message states Humira issue. Returned call to Petty, unavailable. Message left with call back number provider. Sohan, Fabiola Saenz ?? 09/23/18 8:55 AM Note Petty calling to verify order for patient. Please call her today. She has tried several times to connect with clinical staff anesthesiologist. ?? Her phone [phone] documented in this encounter Plan of Treatment Upcoming Encounters Date Type Department Care Team (Late st Contact Info) Description 03/01/2024 1:30 PM EST Office Visit Hematology/Oncology at [address] [address] Imer Baker MD [facility] [address] [place] [address] Heidi Cruz UNDERWEAR FINISHER [address] [place] [address] [place] [address] 03/01/2024 2:00 PM EST Infusion Hematology Oncology at [address] [address] 03/23/2024 11:30 AM EST TH Visit (TeleHealth) [place] [address] Tory Willard APRN [facility] [place] [address] documented as of this encounter Visit Diagnoses Not on filedocumented in this encounter Care Teams Manager Professional Development Relationship Specialty Start Date End Date Maricarmen Galvan APRN PCP - General Family Medicine 05/10/18 07/28/23 documented as of this encounter
--- OUTSIDE RECORDS SUMMARY | 2024-02-21 13:27 | XMS_ITS | Encounter Summary ---
Author Organization [facility] [place] [address] Care Team Providers Care Brick Pitcher Name Role Phone Maricarmen Galvan COMPUTER AIDED DRAFTER Primary Care Provider [phone] Encounter Details Date Type Department Care Team (Late st Contact Info) Description 07/06/2019 11:00 AM EDT TH Visit (TeleHealth) Rheumatology at [facility] [place] [phone] Manny Lugo MD Psoriatic arthritis Social History [...] as of this encounter Progress Notes * Manny Lugo MD - 07/06/2019 11:00 AM [...] Psoriatic Arthritis - 08/2018 [place] care [place] [facility] [place]Dx??[place] [address] Burleson in [facility] -Affected joints: hand, wrist, elbow, shoulder, knee, ankle, neck -Treatment: Enbrel (+MTX 5 mg weekly for part of the course; as per Dr Burleson notes given to Dr. Wang higher doses of MTC caused liver issues) 9435-1220. - Humira since 2011 (20 mg every [...] last 2 weeks, improving with diclofenac gel. Noassociated warmth or redness. -L knee intermittently swollen [...] Not on file Occupational History ??? 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 [...] she reports it is improving and she does not want any steroids. I would not classify this as secondary failure yet, as it is unclear if she is truly having a flare of psoriatic arthritis. ?? Recommendations: -Check labs: CBC, CMP, ESR, CRP, phosphorus, magnesium. Asked staff to send to [facility] as per patient request. -Ordered for Humira-CF, continue 40 mg subQ every 2 weeks -Continue topical diclofenac gel. Patient does not want prednisone. Advised topical ice therapy. -Continue Calcium 600 mg BID and Vit D3 2000 u daily for osteopenia. -Advised patient to please call rheumatology clinic if she has any worsening joint pain or swelling, and will discuss again the option of a prednisone taper at that time -Patient understands and agrees with plan -Follow-up in 3 months The patient was seen and discussed with Dr. Zaldivar Patient agreed to telephone visit. Total telephone time: 15 minutes Manny Lugo MD Rheumatology Fellow, PGY-4 CC: Maricarmen Galvan APRN * Elida Zaldivar DO - 07/06/2019 11:00 AM EDT ATTENDING ADDENDUM The patient's history was reviewed, the patient with Dr. Lugo I agree with her summary, findings,and plan. documented in this encounter Plan of Treatment Upcoming Encounters Date Type Department Care Team (Late st Contact Info) Description 03/01/2024 1:30 PM EST Office Visit Hematology/Oncology at [address] [phone] Imer Baker MD [facility] DR HEMATOLOGY [place] [address] Heidi Cruz APRN [address] [place] [address] [place] [address] 03/01/2024 2:00 PM EST Infusion Hematology Oncology at [address] [phone] 03/23/2024 11:30 AM EST TH Visit (TeleHealth) [place] [address] Tory Willard APRN [facility] [place] [address] documented as of this encounter Visit Diagnoses Diagnosis Psoriatic arthritis Psoriatic arthropathy documented in this encounter Care Teams Brick Pitcher Relationship Specialty Start Date End Date Maricarmen Galvan APRN PCP - General Family Medicine 05/10/18 07/28/23 documented as of this encounter
--- OUTSIDE RECORDS SUMMARY | 2024-02-21 13:27 | XMS_ITS | Encounter Summary ---
Author Organization [facility] [place] [address] Care Team Providers Care Insole Rasper Name Role Phone Maricarmen Galvan JORGE Primary Care Provider [phone] Encounter Details Date Type Department Care Team (Late st Contact Info) Description 03/10/2019 2:00 PM EST Office [place] [address] Yuriy Ayers APRN [facility] [place] [address] Hepatic cirrhosis, unspecified hepatic cirrhosis type, unspecified [...] kg (119 lb 3.2 oz) 03/10/2019 2:19 P M EST Height 152.4 cm (5') 03/10/2019 2:19 PM EST Body Mass Index 23.28 03/10/2019 2:19 PM EST documented in this encounter Progress Notes * Yuriy Ayers APRN - 03/10/2019 2:00 PM EST Images from the original note were not included. HEPATOLOGY NEW PATIENT CONSULTATION Shereen Vega 1950 PSYCHOLOGISTS: YURIY AYERS APRN PCP: Maricarmen Galvan APRN [...] and 600 mg in the PM. ??? aspirin [...] react to light. Pharynx unremarkable. Neck is supple, no adenopathy, no thyromegaly. Chest is clear. Heart: [...] also low. I did not do a FibroSc an today because of the clarity of her cirrhosis [...] endoscopy to screen for varices. Plan to scheduletoday. If large varices are seen would prefer [...] Ayers APRN Section of Gastroenterology [place] [address] Copy: Maricarmen Galvan APRN [address] / [place] [address] documented in this encounter Miscellaneous Notes * Addendum Note - Carmen Rodríguez - 03/10/2019 2:00 PM ESTAddended by: CARMEN RODRÍGUEZ on: 03/10/2019 03:38 PM Modules accepted: Orders documented in this encounter Plan of Treatment Upcoming Encounters Date Type Department Care Team (Late st Contact Info) Description 03/01/2024 1:30 PM EST Office Visit Hematology/Oncology at [address] [phone] Imer Baker MD [facility] [place] [address] Heidi Cruz APRN [address] [place] [address] DR MEDICAL ONCOLOGY [place], [place] [id number] 03/01/2024 2:00 PM EST Infusion Hematology Oncology at [address] [phone] 03/23/2024 11:30 AM EST TH Visit (TeleHealth) Gastroenterology at [facility] [place] [address] Yuriy Ayers APRN [facility] [place] [address] Scheduled Orders Name Type Priority Associated Diagnoses Orde r Schedule CBC (with Diff) Lab Routine Hepatic cirrhosis, unspecified hepatic cirrhosis type, unspecified whether ascites present Expected: 03/10/2019 (Approximate), Expires: 03/10/2020 UPPER GI ENDOSCOPY Procedures Routine Hepatic cirrhosis, unspecified hepatic cirrhosis type, unspecified whether ascites present Ordered: 03/10/2019 documented as of this encounter Procedures Procedure Name Priority Date/Time Associated Diagnosis Comments HEMOGRAM Routine 03/10/2019 3:44 PM EST Hepatic cirrhosis, unspecified hepatic cirrhosis type, unspecified whether ascites present DIFFERENTIAL, AUTOMATED Routine 03/10/19 3:44 PM EST Hepatic cirrhosis, unspecified hepatic cirrhosis type, unspecified whether ascites present HC HEPATITIS C ANTIBODY Routine 03/10/19 3:44 PM EST Hepatic cirrhosis, unspecified hepatic cirrhosis type, unspecified whether ascites present HC IRON BINDING CAPACITY Routine 020 3:44 PM EST Hepatic cirrhosis, unspecified hepatic cirrhosis type, unspecified whether ascites present HC A1AT (ALPHA-1 ANTITRYPSIN) Routine 03/10/2019 3:44 PM EST Hepatic cirrhosis, unspecified hepatic cirrhosis type, unspecified whether ascites present HC PCH MITOCHONDRIAL ANTIBODY Routine 03/10/2019 3:44 PM EST Hepatic cirrhosis, unspecified hepatic cirrhosis type, unspecified whether ascites present HC TISSUE TRANSGLUTAMINASE AB Routine 03/10/2019 3:44 PM EST Hepatic cirrhosis, unspecified hepatic cirrhosis type, unspecified whether ascites present HC ALPHA FETOPROTEIN TUMOR MARKER Routine 03/10/2019 3:44 PM EST Hepatic cirrhosis, unspecified hepatic cirrhosis type, unspecified whether ascites present HC PCH SMOOTH MUSCLE AB, SERUM Routine 03/10/2019 3:44 PM EST Hepatic cirrhosis, unspecified hepatic cirrhosis type, unspecified whether ascites present HC VENIPUNCTURE Routine 03/10/2019 3:44 PM EST Hepatic cirrhosis, unspecified hepatic cirrhosis type, unspecified whether ascites present HC HEPATITIS B SURFACE AG Routine 03/10/2019 3:44 PM EST Hepatic cirrhosis, unspecified hepatic cirrhosis type, unspecified whether ascites present HC PROTHROMBIN TIME Routine 03/10/2019 3 :44 PM EST Hepatic cirrhosis, unspecified hepatic cirrhosis type, unspecified whether ascites present HC CBC,PLT & AUTO DIFF Routine 0 3:44 PM EST Hepatic cirrhosis, unspecified hepatic cirrhosis type, unspecified whether ascites present HC ANTINUCLEAR ANTIBODY,SERUM Routine 03/10/2019 3:44 PM EST Hepatic cirrhosis, unspecified hepatic cirrhosis type, unspecified whether ascites present HC FERRITIN, SERUM Routine 03/10/2019 3: 44 PM EST Hepatic cirrhosis, unspecified hepatic cirrhosis type, unspecified whether ascites present COMPREHENSIVE METABOLIC PANEL Routine 03/10/2019 3:44 PM EST Hepatic cirrhosis, unspecified hepatic cirrhosis type, unspecified whether ascites present documented in this encounter Results * (ABNORMAL) Differential, Automated (03/10/2019 3:44 PM EST) Neutrophil % 39.4 % [facility] Neutrophil Absolute 2.11 1.70 - 6.10 x10(3)/mc L [facility] Lymph % 42.5 % [facility] Lymphocytes Abs 2.3 0.9 - 3.2 x10(3)/mc L [facility] Monocyte % 8.4 % [facility] Monocyte Abs 0.4 0.3 - 0.9 x10(3)/mc L [facility] Eos % 8.8 % [facility] Eosinophils Abs 0.5(H) 0.0 - 0.4 x10(3)/ L [facility] Basophil % 0.7 % [facility] Baso Absolute 0.0 0.0 - 0.1 x10(3)/ L [facility] Immature Gran % 0.20 % [facility] Comment: Immature granulocytes(IG's)percentage and absolute count will include metamyelocytes, myelocytes, and promyelocytes. Blood smears from CBCs yielding IG's will be scanned manually for concordance. If this scan disagrees with the automated IG or if promyelocytes are noted, a manual differential will be performed. Immature Gran Absolute 0.01 0.00 - 0.04 x10(3)/ L [facility] Blood specimen (specimen) 03/10/2019 3:44 PM EST 03/10/2019 3:59 PM EST Narrative Resulting Agency Comment Spec In Lab Yuriy Ayers APRN HEMATOLOGY ORDERAB LES [facility] [place] [address] * (ABNORMAL) Hemogram (03/10/2019 3:44 PM EST) White Blood Cell 5.4 4.0 - 9.5 x10(3)/ L [facility] Red Blood Cell 3.97(L) 4.00 - 5.21 x10(6)/mc L [facility] Hemoglobin 13.1 11.7 - 15.5 gm/dL [facility] Hematocrit 37.8 35.7 - 45.8 % [facility] Mean Cell Volume 95.2(H) 82.6 - 94.4 fL [facility] Mean Cell Hemoglobin 33.0(H) 27.1 - 32.0 pg [facility] Mean Cell Hemoglobin Concentration 34.7 31.7 - 35.0 gm/dL [facility] Platelet 103(L) 145 - 357 x10(3)/mc L [facility] RDW Standard Deviation 46.9(H) 37.0 - 46.0 fL [facility] RDW coefficient of variation 13.3 11.5 - 14.1 % [facility] Mean Platelet Volume 10.4 7.6 - 12.9 fL [facility] NRBC% auto 0.0 % [facility] NRBC Absolute 0.000 0.000 - 0.000 x10(3)/mc L [facility] Blood specimen (specimen) 03/10/2019 3:44 PM EST 03/10/2019 3:59 PM EST Narrative Resulting Agency Comment Spec In Lab Yuriy Ayers APRN HEMATOLOGY ORDERAB LES Performing Organization Address [facility] Phone Number [facility] [place] [address] * Hepatitis B Surface Antibody (03/10/2019 3:44 PM EST) Hepatitis B Surface Antibody, Quantitative <3.5 IU/L [facility] Comment: HepB Surface Ab Quant: Unvaccinated: < 8.5 IU/L Vaccinated: > 11.5 IU/L Hepatitis B Surface Antibody Negative [facility] Comment: Patient is presumed to be not vaccinated or immune to HBV infection. Expected Results: Vaccinated: Positive Unvaccinated: Negative Blood specimen (specimen) 03/10/2019 3:44 PM EST 03/10/2019 3:59 PM EST Narrative Resulting Agency Comment Spec In Lab Yuriy Ayers APRN CHEMISTRY ORDERABL ES Performing Organization Address [facility] Co de Phone Number [facility] [place] [address] * Hepatitis C Antibody (03/10/2019 3:44 PM EST) Hepatitis C Antibody Negative Negative [facility] Blood specimen (specimen) 03/10/2019 3:44 PM EST 03/10/2019 3:59 PM EST Narrative Resulting Agency Comment Spec In Lab Yuriy Ayers JORGE CHEMISTRY ORDERABL ES Performing Organization Address [facility] Phone Number [facility] [place] [address] * Hepatitis B Surface Antigen (03/10/2019 3:44 PM EST) Hepatitis B Surface Antigen Negative Negative [facility] Blood specimen (specimen) 03/10/2019 3:44 PM EST 03/10/2019 3:59 PM EST Narrative Resulting Agency Comment Spec In Lab Yuriy Ayers SUBJECT SCIENTIFIC RESEARCH CHEMISTRY ORDERABL ES Performing Organization Address [facility] Phone Number [facility] [place] [address] * Prothrombin Time (03/10/2019 3:44 PM EST) Prothrombin Time 12.4 9.4 - 12.5 sec [facility] International Normalization Ratio 1.1 [facility] Comment: An INR <2.0 indicates [...] depending on clinical circumstances. Blood specimen (specimen) 03/10/2019 3:44 PM EST 03/10/2019 3:59 PM EST Narrative Resulting Agency Comment Spec In Lab Yuriy Ayers JORGE HEMATOLOGY ORDERAB LES Performing Organization Address [facility] Phone Number [facility] [place] [address] * AFP tumor marker (03/10/2019 3:44 PM EST) Alpha Fetoprotein <1.9 <=8.3 ng/mL [facility] Blood specimen (specimen) 03/10/2019 3:44 PM EST 03/10/2019 3:59 PM EST Narrative Resulting Agency Comment Spec In Lab Yuriy Flood Sudheer GUTIÉRREZN CHEMISTRY ORDERABL ES Performing Organization Address [facility] Phone Number [facility] [place] [address] * Tissue transglutaminase, IgA (03/10/2019 3:44 PM EST) TTG IgA Ab 0.9 0.1 - 10.0 u/ml [facility] Comment: As of 2018, TTG IgA testing performed at [facility]. Please note reference range update. Negative = <7 U/mL Equivocal = 7-10 U/mL Positive = >10 U/mL Blood specimen (specimen) 03/10/2019 3:44 PM EST 03/12/2019 9:18 AM EST Narrative Resulting Agency Comment Spec In Lab Yuriy Flood Sudheer GUTIÉRREZN IMMUNOLOGY ORDERAB LES Performing Organization Address [facility] Phone Number [facility] [place] [address] * A1AT Serum Concentration (03/10/2019 3:44 PM EST) [facility] A1AT 111 90 - 200 mg/dL [facility] Blood specimen (specimen) 03/10/2019 3:44 PM EST 03/10/2019 3:59 PM EST Narrative Resulting Agency Comment Spec In Lab Yuriy Aleena Sudheer GUTIÉRREZN CHEMISTRY ORDERABL ES Performing Organization Address [facility] Phone Number [facility] [place] [address] * (ABNORMAL) Ferritin (03/10/2019 3:44 PM EST) [facility] Ferritin 23(L) 30 - 400 ng/mL [facility] Comment: Pediatric reference ranges not verified at [facility], interpret with caution. Reference ranges for females greater than 50 years of age approach values for men, i.e., 30-400 ng/mL. Blood specimen (specimen) 03/10/2019 3:44 PM EST 03/10/2019 3:59 PM EST Narrative Resulting Agency Comment Spec In Lab Yuriy Ayers APRN CHEMISTRY ORDERABL ES Performing Organization Address [facility] de Phone Number [facility] [place] [address] * Iron and TIBC (03/10/2019 3:44 PM EST) Iron 108 30 - 150 mcg/dL [facility] TIBC 329 250 - 450 mcg/dL [facility] Iron Saturation 33 20 - 50 % [facility] Blood specimen (specimen) 03/10/2019 3:44 PM EST 03/10/2019 3:59 PM EST Narrative Resulting Agency Comment Spec In Lab Yuriy Ayers APRN CHEMISTRY ORDERABL ES Performing Organization Address [facility] Phone Number [facility] [place] [address] * Mitochondrial Antibody, M2 (03/10/2019 3:44 PM EST) Mitochon Ab (MAY) <0.1 <0.1 (Negative) U [facility] Comment: Test Performed by: [facility] - [address] [address] Associate Teacher: Aris Mcgrath M.D. Ph.D.; CLIA# [id number] Blood specimen (specimen) 03/10/2019 3:44 PM EST 03/13/2019 9:07 AM EST Narrative Resulting Agency Comment Spec In Lab Yuriy Ayers APRN LAB SEND OUT ORDER RANI Performing Organization Address [facility] Co de Phone Number [facility] [place] [address] * LEO ([facility]/CGP) (03/10/2019 3:44 PM EST) LEO Neg Neg [facility] Comment:Anti-nuclear antibod ies were tested using an indirect immunofluorescent assay. Blood specimen (specimen) 03/10/2019 3:44 PM EST 03/12/2019 9:18 AM EST Narrative Resulting Agency Comment Spec In Lab Yuriy Ayers APRN LAB SEND OUT ORDER RANI Performing Organization Address City/[facility]/ZIP Co de Phone Number [facility] [place] [address] * Smooth Muscle Antibody (03/10/2019 3:44 PM EST) Sm Muscle Ab (JUNE) Negative Negative [facility] Comment: ADDITIONAL INFORMATION This test was developed and its performance characteristics determined by [facility] in a manner consistent with CLIA requirements. This test has not been cleared or approved by the U.S. Food and Drug Administration. Test Performed by: [facility] [place] [address] Associate Teacher: Aris Mcgrath M.D. Ph.D.; CLIA# [id number] Blood specimen (specimen) 03/10/2019 3:44 PM EST 03/13/2019 9:07 AM EST Narrative Resulting Agency Comment Spec In Lab Yuriy Ayers APRN LAB SEND OUT ORDER RANI Performing Organization Address City/[facility]/ZIP Co de Phone Number [facility] [place] [address] * (ABNORMAL) Comprehensive metabolic panel (non-fasting) (03/10/2019 3:44 PM EST) Glucose 134 65 - 199 mg/dL [facility] Comment:Diabetes: >=200 mg/d L plus symptoms Blood Urea Nitrogen 11 8 - 18 mg/dL [facility] Creatinine 0.65(L) 0.70 - 1.20 mg/dL [facility] Sodium 140 135 - 145 mmol/L [facility] Potassium 4.0 3.5 - 5.0 mmol/L [facility] Comment: Please note: ??Patients with WBC >100,000 may have falsely elevated Potassium levels. ??For accurate Potassium quantification in these patients send serum separator tube (gold top) for subsequent determinations. ??Contact the Clinical Chemistry Laboratory if there are any questions. Chloride 100 98 - 107 mmol/L [facility] Carbon Dioxide 26 22 - 31 mmol/L [facility] Anion Gap 14 5 - 15 mmol/L [facility] Calcium 10.1 8.5 - 10.5 mg/dL [facility] Protein, Total 8.1(H) 6.1 - 8.0 gm/dL [facility] Albumin 4.3 3.2 - 5.2 gm/dL [facility] Aspartate Aminotransferase 32(H) 0 - 30 unit/L [facility] Alanine Aminotransferase 21 0 - 30 unit/L [facility] Alkaline Phosphatase 50 35 - 105 unit/L [facility] Bilirubin, Total 0.4 0.2 - 1.3 mg/dL [facility] Est Glomerular Filtration Rate 91 >=60 mL/min/1. 73 m?? [facility] Comment: The eGFR was calculated using the CKD-EPI equation. As with all creatinine based estimates of kidney function, eGFR values calculated with the CKD-EPI equation are not accurate in patients with acute kidney failure, extremes of body mass or the acutely ill. http://[employer]/DHnkf eGFR 105 >=60 mL/min/1. 73 m?? [facility] Comment: The eGFR was calculated using the CKD-EPI equation. As with all creatinine based estimates of kidney function, eGFR values calculated with the CKD-EPI equation are not accurate in patients with acute kidney failure, extremes of body mass or the acutely ill. http://[employer]/DHMCnkf Blood specimen (specimen) 03/10/2019 3:44 PM EST 03/10/2019 3:59 PM EST Narrative Resulting Agency Comment Spec In Lab Yuriy Ayers APRN CHEMISTRY ORDERABL ES [facility] [place] [address] documented in this encounter Visit Diagnoses Diagnosis Hepatic cirrhosis, unspecified hepatic cirrhosis type, unspecified whether ascites present documented in this encounter Care Teams Insole Rasper Relationship Specialty Start Date End Date Maricarmen Galvan APRN PCP - General Family Medicine 05/10/18 07/28/23 documented as of this encounter
--- OUTSIDE RECORDS SUMMARY | 2024-02-21 13:27 | XMS_ITS | Encounter Summary ---
Author Organization [facility] Address [facility] [place] [address] Care Team Providers Care Crane Mechanic Name Role Phone Maricarmen Galvan AIRPLANE PILOT CHIEF Primary Care Provider [phone] Reason for Visit * Consultation (Routine) - Specialty Diagnoses / Procedures Referred By Anna macias Referred To Contact Cardiology Diagnoses CHEST PAIN Maricarmen Galvan, JORGE [address] [place] [address] Khadra Bronson MD [facility] [address] [place] [address] Referral ID Status Reason Start Date Expiration Date V isits Requested Visits Authorized [id number] Consult, Test & Treat Connection Center 05/10/2018 05/10/2019 6 6 Encounter Details Date Type Department Care Team (Latest Contact Info) Description 07/29/2018 1:40 PM EDT Office Visit Cardiology at [address] [place] [address] Khadra Bronson MD [facility] [address] [place] [address] Hyperlipidemia, unspecified hyperlipidemia type; Hypertension, unspecified type; Chest pain, unspecified type Social History Tobacco Use Types Packs/Day [...] documented in this encounter Progress Notes * Khadra Bronson MD - 07/29/2018 1:40 PM EDT Images from the original note were not included. Reason for Consultation: Chest Pain Referring Provider: Maricarmen Galvan APRN [address] [place] [id number] ?? HPI: Shereen Vega is a 68 y.o. female with multiple medical problems who present for symptoms of atypical chest pain. Shereen is a type [...] preserved LV function. Due to her persistent symptoms,she is referred for further evaluation. With respect to her symptoms she describes sharp chest pain across the left side of her chest whichcan come on randomly. She says she could climb 1-2 flights of stairs however would be short of breath without necessarily having chest pain. She denies any [...] Social History Social History Narrative Born in [place], grew up there and went to high school in [place], did not graduate, and her current , [...] by mouth 2 times daily (with meals)., Disp:, Rfl: ?? ROS: CONSTITUTIONAL: No weight loss, fever, chills, ++weakness /fatigue. ?? HEENT: Eyes: No visual loss, blurred vision, double vision or scleral iscterus. No sinus tendernessor palpable thyromegaly. SKIN: No rashes. ?? CARDIOVASCULAR: [...] Office Visit from 07/29/2018 in Cardiology at [place] Weight 52.6 kg (116 lb) Height 154.9 [...] are normal and unobscured. There are no audible murmurs. Carotid upstroke is normal with no audible [...] female presents for consultation regarding atypical chest pain with normal stress test 1: Atypical chest pain: I had a detailed discussion with Shereen and her in clinic today, Her symptoms are atypical and the stress test was normal. I offered her the option of undergoing repeat coronary angiography however I think we should reserve this if her symptoms progress to more exer tional symptoms. She is on a decent medical regimen which she should continue. ?? Recommendations: 1: Monitor symptoms.No additional testing at this time. 2: F/U with PCP Khadra Bronson MD [facility] Interventional Cardiology Pager [phone] documented in this encounter Plan of Treatment Upcoming Encounters Date Type Department Care Team (Late st Contact Info) Description 03/01/2024 1:30 PM EST Office Visit Hematology/Oncology at [address] [phone] Imer Baker MD [facility] DR HEMATOLOGY [place] [address] MEDICAL ONCOLOGY [place], [place] [id number] 03/01/2024 2:00 PM EST Infusion Hematology Oncology at [address] [address] 03/23/2024 11:30 AM EST TH Visit (TeleHealth) [place] [address] [address] [facility] [place] [address] documented as of this encounter Procedures Procedure Name Priority Date/Time Associated Diagnosis Comments EKG 12-LEAD Routine 07/29/2018 1:55 PM EDT Hyperlipidemia, unspecified hyperlipidemia type Hypertension, unspecified type Chest pain, unspecified type documented in this encounter Results * EKG 12 Lead (07/29/2018 1:55 PM EDT) Ventricular rate 97 BPM MUSE SYSTEM Atrial Rate 97 BPM MUSE SYSTEM P-R Interval 148 ms MUSE SYSTEM QRS Duration 82 ms MUSE SYSTEM Q-T Interval 352 ms MUSE SYSTEM QTC Calculated (Bezet) 447 ms MUSE SYSTEM Calculated P Perkins 18 degrees MUSE SYSTEM Calculated R Perkins -29 degrees MUSE SYSTEM Calculated T Perkins 33 degrees MUSE SYSTEM INTERPRETATION Normal sinus rhythm Moderate voltage criteria for LVH, may be normal variant Borderline ECG No previous ECGs available Confirmed by MD Audie, Khadra ([id number]) on 07/29/2018 2:40:34 PM MUSE SYSTEM 07/29/2018 1:55 PM EDT 07/29/2018 2:40 PM EDT Khadra Bronson MD ECG ORDERABLES MUSE SYSTEM documented in this encounter Visit Diagnoses Diagnosis Hyperlipidemia, unspecified hyperlipidemia type Hypertension, unspecified type Chest pain, unspecified type documented in this encounter Care Teams Crane Mechanic Relationship Specialty Start Date End Date Maricarmen Galvan APRN PCP - General Family Medicine 05/10/18 07/28/23 documented as of this encounter
--- OUTSIDE RECORDS SUMMARY | 2024-02-21 13:27 | XMS_ITS | Encounter Summary ---
Author Organization [facility] [place] [address] Care Team Providers Care Regulatory Process Manager Name Role Phone Maricarmen Galvan JORGE Primary Care Provider [phone] Encounter Details Date Type Department Care Team (Latest Contact Info) Description 01/02/2019 10:15 AM EST Laboratory Appointment Lab [address] [place] [phone] Psoriatic arthritis Social History Tobacco Use Types [...] PM EST Office Visit Hematology/Oncology at [address] [phone] Imer Baker MD [facility] DR [place] [address] Heidi Cruz APRN [address] [place] [address] DR MEDICAL ONCOLOGY [place], [place] [address] 03/01/2024 2:00 PM EST Infusion Hematology Oncology at [address] [phone] 03/23/2024 11:30 AM EST TH Visit (TeleHealth) Gastroenterology at [facility] [place] [address] Tory Willard APRN [facility] [place] [address] documented as of this encounter Procedures Procedure Name Priority Date/Time Associated Diagnosis Comments HC VENIPUNCTURE Routine 01/02/2019 10:39 AM EST Psoriatic arthritis HEMOGRAM Routine 01/02/2019 10:39 AM EST Psoriatic arthritis DIFFERENTIAL, AUTOMATED Routine 01/02/2019 10:39 AM EST Psoriatic arthritis HC ESR-SEDIMENTATION RATE, BLOOD Routine 01/02/2019 10:39 AM EST Psoriatic arthritis HC CBC,PLT & AUTO DIFF Routine 9 10:39 AM EST Psoriatic arthritis COMPREHENSIVE METABOLIC PANEL Routine 01/02/2019 10:39 AM EST Psoriatic arthritis documented in this encounter Results * (ABNORMAL) Differential, Automated (01/02/2019 10:39 AM EST) Neutrophil % 28.4 % [facility] Neutrophil Absolute 1.44(L) 1.70 - 6.10 x10(3)/mc L [facility] Lymph % 36.6 % [facility] Lymphocytes Abs 1.9 0.9 - 3.2 x10(3)/mc L [facility] Monocyte % 10.0 % [facility] Monocyte Abs 0.5 0.3 - 0.9 x10(3)/mc L [facility] Eos % 23.6 % [facility] Eosinophils Abs 1.2(H) 0.0 - 0.4 x10(3)/mc L [facility] Basophil % 1.2 % [facility] Baso Absolute 0.1 0.0 - 0.1 x10(3)/mc L [facility] Immature Gran % 0.20 % [facility] Comment: Immature granulocytes(IG's)percentage and absolute count will include metamyelocytes, myelocytes, and promyelocytes. Blood smears from CBCs yielding IG's will be scanned manually for concordance. If this scan disagrees with the automated IG or if promyelocytes are noted, a manual differential will be performed. Immature Gran Absolute 0.01 0.00 - 0.04 x10(3)/mc L [facility] Blood specimen (specimen) 01/02/2019 10:39 AM EST 01/02/2019 10:48 AM EST Narrative Resulting Agency Comment Spec In Lab Manny Lugo MD HEMATOLOGY ORDERABL ES [facility] [place] [address] * (ABNORMAL) Hemogram (01/02/2019 10:39 AM EST) White Blood Cell 5.1 4.0 - 9.5 x10(3)/mc L [facility] Red Blood Cell 4.11 4.00 - 5.21 x10(6)/mc L [facility] Hemoglobin 13.2 11.7 - 15.5 gm/dL [facility] Hematocrit 39.0 35.7 - 45.8 % [facility] Mean Cell Volume 94.9(H) 82.6 - 94.[address] [facility] Mean Cell Hemoglobin 32.1(H) 27.1 - 32.[address] [facility] Mean Cell Hemoglobin Concentration 33.8 31.7 - 35.0 gm/dL [facility] Platelet 97(L) 145 - 357 x10(3)/mc L [facility] RDW Standard Deviation 46.4(H) 37.0 - 46.[address] [facility] RDW coefficient of variation 13.3 11.5 - 14.1 % [facility] Mean Platelet Volume 10.3 7.6 - 12.[address] [facility] NRBC% auto 0.0 % [facility] NRBC Absolute 0.000 0.000 - 0.000 x10(3)/mc L [facility] Blood specimen (specimen) 01/02/2019 10:39 AM EST 01/02/2019 10:48 AM EST Narrative Resulting Agency Comment Spec In Lab Manny Lugo MD HEMATOLOGY ORDERABL ES [facility] [place] [address] * (ABNORMAL) Comprehensive metabolic panel (non-fasting) (01/02/2019 10:39 AM EST) Glucose 207(H) 65 - 199 mg/dL [facility] Comment:Diabetes: >=200 mg/d L plus symptoms Blood Urea Nitrogen 14 8 - 18 mg/dL [facility] Creatinine 0.73 0.70 - 1.20 mg/dL [facility] Sodium 141 135 - 145 mmol/L [facility] Potassium 4.0 3.5 - 5.0 mmol/L [facility] Comment: Please note: ??Patients with WBC >100,000 may have falsely elevated Potassium levels. ??For accurate Potassium quantification in these patients send serum separator tube (gold top) for subsequent determinations. ??Contact the Clinical Chemistry Laboratory if there are any questions. Chloride 102 98 - 107 mmol/L [facility] Carbon Dioxide 24 22 - 31 mmol/L [facility] Anion Gap 15 5 - 15 mmol/L [facility] Calcium 9.8 8.5 - 10.5 mg/dL [facility] Protein, Total 8.2(H) 6.1 - 8.0 gm/dL [facility] Albumin 4.3 3.2 - 5.2 gm/dL [facility] Aspartate Aminotransferase 23 0 - 30 unit/L [facility] Alanine Aminotransferase 16 0 - 30 unit/L [facility] Alkaline Phosphatase 55 35 - 105 unit/L [facility] Bilirubin, Total 0.5 0.2 - 1.3 mg/dL [facility] Est Glomerular Filtration Rate 84 >=60 mL/min/1. 73 m?? [facility] Comment: The eGFR was calculated using the CKD-EPI equation. As with all creatinine based estimates of kidney function, eGFR values calculated with the CKD-EPI equation are not accurate in patients with acute kidney failure, extremes of body mass or the acutely ill. [email or web address] eGFR 97 >=60 mL/min/1. 73 m?? [facility] Comment: The eGFR was calculated using the CKD-EPI equation. As with all creatinine based estimates of kidney function, eGFR values calculated with the CKD-EPI equation are not accurate in patients with acute kidney failure, extremes of body mass or the acutely ill. [email or web address] Blood specimen (specimen) 01/02/2019 10:39 AM EST 01/02/2019 10:49 AM EST Narrative Resulting Agency Comment Spec In Lab Dio Jensen MD CHEMISTRY ORDERAB LES Performing Organization Address City/[facility]/ZIP Co de Phone Number [facility] [place] [address] * (ABNORMAL) Sedimentation rate (01/02/2019 10:39 AM EST) Sedimentation Rate Automated 21(H) 0 - 20 mm/hr [facility] Blood specimen (specimen) 01/02/2019 10:39 AM EST 01/02/2019 10:48 AM EST Narrative Resulting Agency Comment Spec In Lab Dio Jensen MD HEMATOLOGY ORDERA BLES Performing Organization Address City/[facility]/ZIP Co de Phone Number [facility] [place] [address] * CRP, acute inflammation (01/02/2019 10:39 AM EST) C-Reactive Protein 0.8 <=4.9 mg/L [facility] Blood specimen (specimen) 01/02/2019 10:39 AM EST 01/02/2019 10:49 AM EST Narrative Resulting Agency Comment Spec In Lab Dio Jensen MD CHEMISTRY ORDERAB LES [facility] [place] [address] documented in this encounter Visit Diagnoses Diagnosis Psoriatic arthritis Psoriatic arthropathy documented in this encounter Care Teams Regulatory Process Manager Relationship Specialty Start Date End Date Maricarmen Galvan APRN PCP - General Family Medicine 05/10/18 07/28/23 documented as of this encounter
--- OUTSIDE RECORDS SUMMARY | 2024-02-21 13:27 | XMS_ITS | Encounter Summary ---
[place] [address] Care Team Providers Care Hand Spring Former Name Role Phone Maricarmen Galvan APRN Primary Care Provider [phone] Reason for Visit * Reason Comments Specialty Pharmacy Review adalimumab (Hu eulalia,CF, Pen) 40 mg/0.4 mL Encounter Details Date Type Department Care Team (Late Contact Info) Description 01/15/2020 Specialty Pharmacy [place] [phone] Bashir Oakes Social History Tobacco Use Types [...] encounter Progress Notes * Bashir Oakes - 01/15/2020 11:59 PM EST The - Specialty Pharmacy has completed a benefits investigation for Shereen Vega to reviewtheir eligibility to fill at [facility]. Per patient's medication list they are prescribed adalimumab (Humira,CF, Pen) 40 mg/0.4 mL and the medication is not able to be filled at the - Specialty Pharmacy. documented in this encounter Plan of Treatment Upcoming Encounters Date Type Department Care Team (Late Contact Info) Description 03/01/2024 1:30 PM EST Office Visit Hematology/Oncology at [address] [phone] Imer Baker MD [facility] [place] [address] Heidi Cruz [employer] [address] [place] [address] [place] [address] 03/01/2024 2:00 PM EST Infusion Hematology Oncology at [address] [phone] 03/23/2024 11:30 AM EST TH Visit (TeleHealth) [place] [address] Tory Willard APRN [facility] [place] [place] [address] documented as of this encounter Visit Diagnoses Not on filedocumented in this encounter Care Teams Hand Spring Former Relationship Specialty Start Date End Date Maricarmen Galvan APRN PCP - General Family Medicine 05/10/18 07/28/23 documented as of this encounter
--- OUTSIDE RECORDS SUMMARY | 2024-02-21 13:27 | XMS_ITS | Encounter Summary ---
Author Organization [facility] [place] [address] Care Team Providers Care Front End Drupal Developer Name Role Phone Maricarmen Galvan APRN Primary Care Provider [phone] Encounter Details Date Type Department Care Team (Late st Contact Info) Description 03/10/2019 Telephone Gastroenterology at [facility] [place] [address] Fabiola Reno Social History Tobacco Use Types Packs/Day Years [...] encounter Miscellaneous Notes * Telephone Encounter - Fabiola Reno - 03/10/2019 3:14 PM EST Shereen Vega [id number] Diagnosis/Indication: cirrhosis, screen for varices 1. Have [...] will drive you to your procedure, stay onc[place] for the entire duration of your procedure, [...] 1:30 PM EST Office Visit Hematology/Oncology at [address] [phone] Imer Baker MD [facility] [address] [place] [address] Heidi Cruz APRN [address] [place] [address] DR MEDICAL ONCOLOGY [place], [place] [id number] 03/01/2024 2:00 PM EST Infusion Hematology Oncology at [address] [phone] 03/23/2024 11:30 AM EST TH Visit (TeleHealth) [place] [address] Tory Willard APRN [facility] [place] [address] documented as of this encounter Visit Diagnoses Not on filedocumented in this encounter Care Teams Front End Drupal Developer Relationship Specialty Start Date End Date Maricarmen Galvan APRN PCP - General Family Medicine 05/10/18 07/28/23 documented as of this encounter
--- OUTSIDE RECORDS SUMMARY | 2024-02-21 13:27 | XMS_ITS | Encounter Summary ---
Author Organization [facility] Address [facility] [place] [address] Care Team Providers Care Director Of Search Engine Optimization Name Role Phone Maricarmen Galvan JORGE Primary Care Provider [phone] Reason for Visit * Consultation (Routine) - Closed Specialty Diagnoses / Procedures Referred By Anna t Referred To Contact Rheumatology Diagnoses Psoriatic arthritis Sarah Wang MD [facility] RHEUMATOLOGY [address] [place] [id number] [facility] Rheumatology [address] [place] [id number] Referral ID Status Reason Start Date Expiration Date Visits Re quested Visits Authorized [id number] Closed 05/11/2018 05/11/2019 1 1 Encounter Details Date Type Department Care Team (Late st Contact Info) Description 09/14/2018 1:00 PM EDT Office Visit Rheumatology at [place] [phone] Dio Jensen MD [facility] [place] [address] Manny Lugo MD Psoriatic arthritis Social History [...] 36.5 ??C (97.7 ??F) 09/14/2018 1:14 PM ED T Respiratory Rate 16 09/14/2018 1:14 PM EDT Oxygen Saturation 98% 09/14/2018 1:14 PM EDT Inhaled Oxygen Concentration - - Weight 52.6 kg (116 lb) 09/14/2018 1:14 PM EDT Height 154.9 cm (5' 1) 09/14/2018 1:14 PM EDT Body Mass Index 21.92 09/14/2018 1:14 PM EDT documented in this encounter Patient Instructions * Patient Instructions* Manny Lugo MD - 09/14/2018 1:00 PM EDT Please complete labwork and X-rays today. Complete labs on day of your next visit (prior to coming to rheum appt if possible). documented in this encounter Progress Notes * Manny Lugo MD - 09/14/2018 1:00 PM [...] She presents today to establish care at [facility]. Of note, much of history obtained below is from notes kindly provided by Dr. Wang. Today, he reports having pain all over, particularly her knees, given that she ran out of MTX for the last two months. She noticed puffy knuckles). Morning stiffness was previously ~ 30 mins with Humira, but now much longer. She has been taking Tylenol 1-3/d as needed with some improvement. She has also been experiencing generalized weakness and fatigue. No Recent infections, recent travel, sick contacts. -Bone density scan due this year. Patient unsure if done and so will check at [facility] for repeat DEXA after 2016. -Will make sure patient on vit D supplementation. -She also needs hep B vaccination, while on immunosuppression. Will discuss and administer at next visit. Psoriatic arthritis -[place] [address] Burleson in [facility] -Affected joints: hand, wrist, elbow, shoulder, knee, ankle, neck -Treatment: Enbrel (+MTX 5 mg weekly for part of the course; as per Dr Burleson notes given to Dr. Rodriguez higher doses of MTC caused liver issues) [id number]. Humira since 2011 (20 mg every other [...] Not on file Occupational History ??? 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 Strength 5/5 throughout, Sensation to light touch [...] previously on (40 mg subQ every other day).Side effects of Humira told to patient and [...] Fellow, PGY-4 CC: Maricarmen Galvan APRN * Dio Jensen MD - 09/14/2018 1:00 PM EDT ATTENDING ADDENDUM The patient's history was reviewed, and I interviewed and examined the patient with Dr. Lugo. I agree with her summary, findings, and plan. Dio Jensen MD Staff Journeyman Painter documented in this encounter Plan of Treatment Upcoming Encounters Date Type Department Care Team (Late st Contact Info) Description 03/01/2024 1:30 PM EST Office Visit Hematology/Oncology at [address] [phone] Imer Baker MD [facility] DR [place] [address] Heidi Cruz APRN [address] [place] [address] DR MEDICAL ONCOLOGY [place], [place] [id number] 03/01/2024 2:00 PM EST Infusion Hematology Oncology at [address] [phone] 03/23/2024 11:30 AM EST TH Visit (TeleHealth) [facility] [place] [phone] Tory Willard APRN [facility] [place] [address] documented as of this encounter Procedures Procedure Name Priority Date/Time Associated Diagnosis Comments CRP, ACUTE INFLAMMATION Routine 09/14/2018 3:59 PM EDT Psoriatic arthritis SCAN, PERIPHERAL BLOOD Routine 9 3:59 PM EDT QUANTIFERON-TB GOLD Routine 09/14/2018 3 :59 PM EDT Psoriatic arthritis HEMOGRAM Routine 09/14/2018 3:59 PM EDT Psoriatic arthritis DIFFERENTIAL, AUTOMATED Routine 09/14/2018 3:59 PM EDT Psoriatic arthritis HEPATITIS C ANTIBODY Routine 09/14/2018 3:59 PM EDT Psoriatic arthritis HEPATITIS B CORE ANTIBODY, TOTAL Routine 09/14/2018 3:59 PM EDT Psoriatic arthritis VITAMIN D, 25-HYDROXY Routine 09/14/2018 3:59 PM EDT Psoriatic arthritis HIV SCREEN, 4TH GENERATION ([facility]/CGP/APD/NLH) Routine 09/14/2018 3:59 PM EDT Psoriatic arthritis HEPATITIS B SURFACE ANTIBODY Routine 09/14/2018 3:59 PM EDT Psoriatic arthritis HEPATITIS B SURFACE ANTIGEN Routine 09/14/2018 3:59 PM EDT Psoriatic arthritis SEDIMENTATION RATE Routine 09/14/2018 3: 59 PM EDT Psoriatic arthritis CBC (WITH DIFF) Routine 09/14/2018 3:59 PM EDT Psoriatic arthritis COMPREHENSIVE METABOLIC PANEL Routine 09/14/2018 3:59 PM EDT Psoriatic arthritis documented in this encounter Results * Scan, Peripheral Blood (09/14/2018 3:59 PM EDT) Plat estimate Decreased [facility] RBC Morphology Abnormal [facility] Ovalocytes 1-5 /HPF [facility] Blood specimen (specimen) 09/14/2018 3:59 PM EDT 09/14/2018 4:10 PM EDT Narrative Resulting Agency Comment Spec In Lab Manny Lugo MD HEMATOLOGY ORDERABL ES [facility] [place] [address] * (ABNORMAL) Differential, Automated (09/14/2018 3:59 PM EDT) Neutrophil % 27.2 % [facility] Neutrophil Absolute 2.09 1.70 - 6.10 x10(3)/mc L [facility] Lymph % 31.2 % [facility] Lymphocytes Abs 2.4 0.9 - 3.2 x10(3)/mc L [facility] Monocyte % 7.7 % [facility] Monocyte Abs 0.6 0.3 - 0.9 x10(3)/mc L [facility] Eos % 32.6 % [facility] Eosinophils Abs 2.5(H) 0.0 - 0.4 x10(3)/mc L [facility] Basophil % 1.0 % [facility] Baso Absolute 0.1 0.0 - 0.1 x10(3)/mc L [facility] Immature Gran % 0.30 % [facility] Comment: Immature granulocytes(IG's)percentage and absolute count will include metamyelocytes, myelocytes, and promyelocytes. Blood smears from CBCs yielding IG's will be scanned manually for concordance. If this scan disagrees with the automated IG or if promyelocytes are noted, a manual differential will be performed. Immature Gran Absolute 0.02 0.00 - 0.04 x10(3)/[facility] Blood specimen (specimen) 09/14/2018 3:59 PM EDT 09/14/2018 4:10 PM EDT Narrative Resulting Agency Comment Spec In Lab Manny Lugo MD HEMATOLOGY ORDERABL ES [facility] [place] [address] * (ABNORMAL) Hemogram (09/14/2018 3:59 PM EDT) White Blood Cell 7.7 4.0 - 9.5 x10(3)/[facility] Red Blood Cell 4.43 4.00 - 5.21 x10(6)/[facility] Hemoglobin 14.4 11.7 - 15.5 gm/dL [facility] Hematocrit 41.1 35.7 - 45.8 % [facility] Mean Cell Volume 92.8 82.6 - 94.4 fL [facility] Mean Cell Hemoglobin 32.5(H) 27.1 - 32.0 pg [facility] Mean Cell Hemoglobin Concentration 35.0 31.7 - 35.0 gm/dL [facility] Platelet 119(L) 145 - 357 x10(3)/[facility] RDW Standard Deviation 47.5(H) 37.0 - 46.0 [facility] RDW coefficient of variation 14.0 11.5 - 14.1 % [facility] Mean Platelet Volume 10.2 7.6 - 12.9 [facility] NRBC% auto 0.0 % [facility] NRBC Absolute 0.000 0.000 - 0.000 x10(3)/[facility] Blood specimen (specimen) 09/14/2018 3:59 PM EDT 09/14/2018 4:10 PM EDT Narrative Resulting Agency Comment Spec In Lab Manny Lugo MD HEMATOLOGY ORDERABL ES [facility] [place] [address] * (ABNORMAL) Comprehensive metabolic panel (non-fasting) (09/14/2018 3:59 PM EDT) Glucose 130 65 - 199 mg/dL [facility] Comment:Diabetes: >=200 mg/d L plus symptoms Blood Urea Nitrogen 14 8 - 18 mg/dL [facility] Creatinine 0.78 0.70 - 1.20 mg/dL [facility] Sodium 141 135 - 145 mmol/L [facility] Potassium 4.2 3.5 - 5.0 mmol/L [facility] Comment: Please note: ??Patients with WBC >100,000 may have falsely elevated Potassium levels. ??For accurate Potassium quantification in these patients send serum separator tube (gold top) for subsequent determinations. ??Contact the Clinical Chemistry Laboratory if there are any questions. Chloride 100 98 - 107 mmol/L [facility] Carbon Dioxide 28 22 - 31 mmol/L [facility] Anion Gap 13 5 - 15 mmol/L [facility] Calcium 10.7(H) 8.5 - 10.5 mg/dL [facility] Protein, Total 8.8(H) 6.1 - 8.0 gm/dL [facility] Albumin 4.7 3.2 - 5.2 gm/dL [facility] Aspartate Aminotransferase 22 0 - 30 unit/L [facility] Alanine Aminotransferase 13 0 - 30 unit/L [facility] Alkaline Phosphatase 56 40 - 104 unit/L [facility] Bilirubin, Total 0.4 0.2 - 1.3 mg/dL [facility] Est Glomerular Filtration Rate 78 >=60 mL/min/1. 73 m?? [facility] Comment: The eGFR was calculated using the CKD-EPI equation. As with all creatinine based estimates of kidney function, eGFR values calculated with the CKD-EPI equation are not accurate in patients with acute kidney failure, extremes of body mass or the acutely ill. http://[employer]/[facility] eGFR 90 >=60 mL/min/1. 73 m?? [facility] Comment: The eGFR was calculated using the CKD-EPI equation. As with all creatinine based estimates of kidney function, eGFR values calculated with the CKD-EPI equation are not accurate in patients with acute kidney failure, extremes of body mass or the acutely ill. http://[employer]/[facility] Blood specimen (specimen) 09/14/2018 3:59 PM EDT 09/14/2018 4:10 PM EDT Narrative Resulting Agency Comment Spec In Lab Dio Jensen MD CHEMISTRY ORDERAB LES Performing Organization Address City/[facility]/ZIP Co de Phone Number [facility] [place] [address] * Sedimentation rate (09/14/2018 3:59 PM EDT) Sedimentation Rate Automated 17 0 - 20 mm/hr [facility] Blood specimen (specimen) 09/14/2018 3:59 PM EDT 09/14/2018 4:10 PM EDT Narrative Resulting Agency Comment Spec In Lab Dio Jensen MD HEMATOLOGY ORDERA BLES Performing Organization Address City/[facility]/ZIP Co de Phone Number [facility] [place] [address] * CRP, acute inflammation (09/14/2018 3:59 PM EDT) C-Reactive Protein 0.7 <=4.9 mg/L [facility] Blood specimen (specimen) 09/14/2018 3:59 PM EDT 09/14/2018 4:10 PM EDT Narrative Resulting Agency Comment Spec In Lab Dio Jensen MD CHEMISTRY ORDERAB LES Performing Organization Address [facility] Co de Phone Number [facility] [place] [address] * Vitamin D, 25-Hydroxy (09/14/2018 3:59 PM EDT) Vitamin D Total 25 OH 33 30 - 100 ng/mL [facility] Comment: Deficient <10 ng/mL Insufficient 10 to 29 ng/mL Sufficient 30 to 100 ng/mL Potential Intoxication >100 ng/mL According to the [place] National Osteoporosis Foundation, Vitamin D concentrations >30 ng/mL are sufficient to protect bone health. ??The National Kidney Foundation has similarly stated that patients with Vitamin D concentrations <30ng/mL should be considered to be insufficient or deficient. http://[employer]/nkf-guidelines http://[employer]/nejm-VitD The [employer] i[employer] Vitamin D Immunoassay detects both 25-OH Vitamin D2 and 25-OH Vitamin D3, but only a total Vitamin D concentration is reported. Blood specimen (specimen) 09/14/2018 3:59 PM EDT 09/15/2018 7:14 AM EDT Narrative Resulting Agency Comment Spec In Lab Dio Jensen MD CHEMISTRY ORDERAB LES Performing Organization Address [facility] Co de Phone Number [facility] [place] [address] * HIV Screen, 4th Generation (Leb/CGP/APD) (09/14/2018 3:59 PM EDT) HIV Ab/Ag Screen Negative Negative [facility] Comment: This 4th Generation HIV test screens for the presence of the HIV-1 p24 antigen as well as antibodies reactive against HIV-1 and HIV-2. A negative screen does not rule out an acute HIV infection. If acute HIV infection is suspected, testing should be repeated in 2 - 3 weeks or HIV nucleic acid testing performed. Blood specimen (specimen) 09/14/2018 3:59 PM EDT 09/14/2018 4:10 PM EDT Narrative Resulting Agency Comment Spec In Lab Dio Jensen MD CHEMISTRY ORDERAB LES [facility] [place] [address] * QuantiFERON-TB Gold (09/14/2018 3:59 PM EDT) Quantiferon Nil 0.090 IU/mL [facility] QFT TB Ag1-Nil -0.020 IU/mL [facility] QFT TB Ag2-Nil -0.030 IU/mL [facility] Quantiferon Mitogen-Nil >10.000 IU/mL [facility] Quantiferon-TB Gold Negative Negative [facility] Quantiferon Tb Interp M. tuberculosis infection NOT likely A negative specimen should have a TB1 Ag minus Nil value and TB2 Ag minus Nil value of less than 0.35 IU/mL OR a TB1 Ag minus Nil or TB2 Ag minus Nil value greater than or equal to 0.35 IU/mL AND a TB Ag minus Nil value from the same tube of less than 25% of the Nil value. A negative specimen must also have a mitogen minus Nil value greater than or equal to 0.5 IU/mL. A negative QFT-Plus result does not preclude the possibility of M. tuberculosis infection. False negative results can occur due to stage of infection (specimen obtained prior to the development of immune response), co-morbid conditions which affect immune function, or other immunological factors. [facility] Comment: The performance of the QFT-Plus assay has not been extensively evaluated with specimens from the following individuals: Individuals who have impaired or altered immune functions, such as those who have HIV infection or AIDS, those who have transplantation managed with immunosuppressive treatment or others who receive immunosuppressive drugs (e.g., corticosteroids, methotrexate, azathioprine, cancer chemotherapy), those who have other clinical conditions, such as diabetes, silicosis, chronic renal failure, and hematological disorders (e.g., leukemia and lymphomas), or those with other specific malignancies (e.g., carcinoma of the head or neck and lung). Individuals younger than age 17 years women. Diagnosis of, or the exclusion of tuberculosis disease, and assessment of Latent Tuberculosis Infection (LTBI) requires a combination of epidemiological, historical, Medical and diagnostic findings that should be taken into account when interpreting QFT-Plus results. Blood specimen (specimen) 09/14/2018 3:59 PM EDT 09/15/2018 11:04 AM EDT Narrative Resulting Agency Comment Spec In Lab Dio Jensen MD CHEMISTRY ORDERAB LES Performing Organization Address [facility] Co de Phone Number [facility] [place] [address] * Hepatitis C Antibody (09/14/2018 3:59 PM EDT) Hepatitis C Antibody Negative Negative [facility] Blood specimen (specimen) 09/14/2018 3:59 PM EDT 09/14/2018 4:10 PM EDT Narrative Resulting Agency Comment Spec In Lab Dio Jensen MD CHEMISTRY ORDERAB LES Performing Organization Address [facility] Co de Phone Number [facility] [place] [address] * Hepatitis B Surface Antigen (09/14/2018 3:59 PM EDT) Hepatitis B Surface Antigen Negative Negative [facility] Blood specimen (specimen) 09/14/2018 3:59 PM EDT 09/14/2018 4:10 PM EDT Narrative Resulting Agency Comment Spec In Lab Dio Jensen MD CHEMISTRY ORDERAB LES Performing Organization Address [facility] Co de Phone Number [facility] [place] [address] * Hepatitis B Surface Antibody (09/14/2018 3:59 PM EDT) Hepatitis B Surface Antibody, Quantitative <3.5 IU/L [facility] Comment: HepB Surface Ab Quant: Unvaccinated: < 8.5 IU/L Vaccinated: > 11.5 IU/L Hepatitis B Surface Antibody Negative [facility] Comment: Patient is presumed to be not vaccinated or immune to HBV infection. Expected Results: Vaccinated: Positive Unvaccinated: Negative Blood specimen (specimen) 09/14/2018 3:59 PM EDT 09/14/2018 4:10 PM EDT Narrative Resulting Agency Comment Spec In Lab Dio Jensen MD CHEMISTRY ORDERAB LES Performing Organization Address [facility]/ZIP Co de Phone Number [facility] [place] [address] * Hepatitis B Core Antibody, Total (09/14/2018 3:59 PM EDT) Hepatitis B Core Antibody Negative Negative [facility] Blood specimen (specimen) 09/14/2018 3:59 PM EDT 09/14/2018 4:10 PM EDT Narrative Resulting Agency Comment Spec In Lab Dio Jensen MD CHEMISTRY ORDERAB LES Performing Organization Address [facility] Co de Phone Number [facility] [place] [address] * XR Cervical Spine 2 Or 3 Views (09/14/2018 3:31 PM EDT) Anatomical Region Laterality Modality C-spine N/A Digital Radiogra phy Impressions 09/14/2018 5:24 PM EDT Post laminectomy C3-C5 with posterior fixation brackets. Hardware intact. No complication. Severe lower cervical spine degenerative disc disease and arthropathy. Increased anterior angulation of the cervical spine. Approximate 2 mm anterolisthesis C3 on C4. Thank you for letting us participate in the care of this patient. For questions regarding this report, please contact the number below. ? Electronically signed by: Guanako Garland [facility] ([phone]), at 09/14/2018 5:24 PM Narrative 09/14/2018 5:24 PM EDT EXAMINATION: XR CERVICAL SPINE 2 OR 3 VIEWS CLINICAL HISTORY: Psoriatic Arthritis with worsening neck pain TECHNIQUE: 2 views of the cervical spine COMPARISON: Mode preoperative studies from 01/18/2012 FINDINGS: Post laminectomy C3-C5 with posterior fixation brackets. Hardware intact. No complication. Severe lower cervical spine degenerative disc disease and arthropathy. Increased anterior angulation of the cervical spine. Approximate 2 mm anterolisthesis C3 on C4. Procedure Note Guanako Garland MD - 09/14/2018 EXAMINATION: XR CERVICAL SPINE 2 OR 3 VIEWS CLINICAL HISTORY: Psoriatic Arthritis with worsening neck pain TECHNIQUE: 2 views of the cervical spine COMPARISON: Mode preoperative studies from 01/18/2012 FINDINGS: Post laminectomy C3-C5 with posterior fixation brackets. Hardware intact.No complication. Severe lower cervical spine degenerative disc disease and arthropathy. Increased anterior angulation of the cervical spine. Approximate 2 mm anterolisthesis C3 on C4. IMPRESSION Post laminectomy C3-C5 with posterior fixation brackets. Hardware intact.No complication. Severe lower cervical spine degenerative disc disease and arthropathy. Increased anterior angulation of the cervical spine. Approximate 2 mm anterolisthesis C3 on C4. Thank you for letting us participate in the care of this patient. Forquestions regarding this report, please contact the number below. Dio Jensen MD IMG DX ORDERABLES * XR Hand Min 3 views Bilat (Generic) (09/14/2018 3:31 PM EDT) Anatomical Region Laterality Modality Hand Bilateral Digital Radiogra phy Impressions 09/14/2018 5:05 PM EDT 1. ??No ankylosis or periostitis 2. ??Solitary marginal radiolucency at right 2 DIP joint likely represents degenerative cyst rather than erosions. 3. ??Osteoarthropathy at multiple sites Thank you for letting us participate in the care of this patient. For questions regarding this report, please contact the number below. ? Narrative 09/14/2018 5:05 PM EDT EXAMINATION: XR HAND MIN 3 VIEWS BILAT (GENERIC) CLINICAL HISTORY: Psoriatic arthritis, ,entered by ordering service TECHNIQUE: 4 views each [...] - osteoarthropathy more prominent on the left. Procedure Note Jenni Toure MD - 09/14/2018 EXAMINATION: XR HAND MIN 3 VIEWS BILAT (GENERIC) CLINICAL HISTORY: Psoriatic arthritis, ,entered by ordering service TECHNIQUE: 4 views each hand COMPARISON: The 2000 radiographs are no longer available for comparison. FINDINGS: BONES : Decreased bone mineralization. No ankylosis or periostitis. SOFT TISSUES: Amorphous calcification around right right third DIP joint represents hydroxyapatite deposition. JOINTS: 2-5 DIP joints- small osteophytes at scattered DIP joints. Solitarymarginal radiolucency at right second DIP joint, degenerative cyst versuserosion.. 2-5 PIP joints- scattered small osteophytes and normal joint spaces. 2-5 MCP joints- no erosions and relative preserved joint spaces Thumb (Basal, scaphoid trapezial trapezoid [STT] and 1 MCP & 1 IP joints)-osteophytes and joint space narrowing more pronounced at STTjoints. Radial carpal joint- narrowed bilateral scaphoid fossa and left lunatefossa. No erosions. Bilateral ulnar positive variance more prominent on the left. Distal radioulnar joint - osteoarthropathy more prominent on the left. IMPRESSION 1. No ankylosis or periostitis 2. Solitary marginal radiolucency at right 2 DIP joint likelyrepresents degenerative cyst rather than erosions. 3. Osteoarthropathy at multiple sites Thank you for letting us participate in the care of this patient. Forquestions regarding this report, please contact the number below. Dio Jensen MD IMG DX ORDERABLES documented in this encounter Visit Diagnoses Diagnosis Psoriatic arthritis Psoriatic arthropathy Psoriatic arthritis Psoriatic arthropathy documented in this encounter Care Teams Director Of Search Engine Optimization Relationship Specialty Start Date End Date Maricarmen Galvan APRN PCP - General Family Medicine 05/10/18 07/28/23 documented as of this encounter
--- OUTSIDE RECORDS SUMMARY | 2024-02-21 13:27 | XMS_ITS | Encounter Summary ---
Author Organization [facility] [place] [address] Care Team Providers Care Retail Assistant Manager Name Role Phone Maricarmen Galvan JORGE Primary Care Provider [phone] Encounter Details Date Type Department Care Team (Late Contact Info) Description 09/23/2018 [place]phone [place] [phone] Fabiola Parry Social History Tobacco Use Types Packs/Day Years [...] Miscellaneous Notes * Telephone Encounter - Fabiola Parry - 09/23/2018 8:55 AM EDT Petty calling to verify order for patient. Please call her today. She has tried several times to connect with staff trainer. Her phone [phone] documented in this encounter Plan of Treatment Upcoming Encounters Date Type Department Care Team (Late st Contact Info) Description 03/01/2024 1:30 PM EST Office Visit Hematology/Oncology at [address] [phone] Imer Baker MD [facility] DR [place] [address] Heidi Cruz APRN [address] [place] [address] 03/01/2024 2:00 PM EST Infusion Hematology Oncology at [address] [phone] 03/23/2024 11:30 AM EST TH Visit (TeleHealth) [place] [address] Tory Willard ANODIZING LINE OPERATOR [facility] [place] [address] documented as of this encounter Visit Diagnoses Not on filedocumented in this encounter Care Teams Retail Assistant Manager Relationship Specialty Start Date End Date Maricarmen Galvan APRN PCP - General Family Medicine 05/10/18 07/28/23 documented as of this encounter
--- OUTSIDE RECORDS SUMMARY | 2024-02-21 13:27 | XMS_ITS | Encounter Summary ---
Author Organization [facility] Address [facility] [place] [address] Care Team Providers Care Inside Trucker Name Role Phone Maricarmen Galvan APRN Primary Care Provider [phone] Encounter Details Date Type Department Care Team (Late st Contact Info) Description 09/14/2018 3:18 PM EDT - 09/14/2018 11:59 PM EDT Hospital Encounter XRay at [address] [place] [address] Dio Jensen MD [facility] [address] Psoriatic arthritis Discharge Disposition: Home Social History Tobacco Use [...] Sig Dispensed Refills Start Date End Date cholecalciferol, Vitamin D3, 25 mcg (1,000 unit) [...] tablet Take 1,000 mg by mouth daily. adalimumab (HUMIRA,CF, PEN) 40 mg/0.4 mL Pen Injector Kit Inject 40 mg subcutaneously every 14 days. 3 kit 3 09/14/2018 09/23/2018 lansoprazole (PREVACID) 30 mg Capsule, Delayed Release(E.C.) [...] PM EST Office Visit Hematology/Oncology at [address] [phone] Imer Baker MD [facility] DR HEMATOLOGY [place] [address] Heidi Cruz ACQUISITION ADVISOR [address] [place] [address] [place] [address] 03/01/2024 2:00 PM EST Infusion Hematology Oncology at [address] [phone] 03/23/2024 11:30 AM EST TH Visit (TeleHealth) [place] [address] Tory Willard APRN [facility] [place] [address] documented as of this encounter Procedures Procedure Name Priority Date/Time Associated Diagnosis Comments XR CERVICAL SPINE 2 OR 3 VIEWS Routine 09/14/2018 3:31 PM EDT Psoriatic arthritis XR HAND MIN 3 VIEWS BILAT Routine 09/14/2018 3:31 PM EDT Psoriatic arthritis documented in this encounter Results * XR Hand Min 3 views Bilat [...] prominent on the left. Procedure Note Jenni Touer MD - 09/14/2018 EXAMINATION: XR HAND MIN [...] arthropathy documented in this encounter Care Teams Inside Trucker Relationship Specialty Start Date End Date Maricarmen Galvan APRN PCP - General Family Medicine 05/10/18 07/28/23 documented as of this encounter
--- OUTSIDE RECORDS SUMMARY | 2024-02-21 13:27 | XMS_ITS | Encounter Summary ---
Author Organization [facility] [place] [address] Care Team Providers Care Electronics Processing Supervisor Name Role Phone Maricarmen Galvan JORGE Primary Care Provider [phone] Encounter Details Date Type Department Care Team (Late st Contact Info) Description 07/06/2019 Specialty [place] [address] Jonathan Morris Social History Tobacco Use Types [...] PM EST Office Visit Hematology/Oncology at [address] [phone] Imer Baker MD [facility] [place] [address] Heidi Cruz APRN [address] [place] [address] [place] [address] 03/01/2024 2:00 PM EST Infusion Hematology Oncology at [address] [phone] 03/23/2024 11:30 AM EST TH Visit (TeleHealth) [place] [address] Tory Willard APRN [facility] [place] [address] documented as of this encounter Visit Diagnoses Not on filedocumented in this encounter Care Teams Electronics Processing Supervisor Relationship Specialty Start Date End Date Maricarmen Galvan APRN PCP - General Family Medicine 05/10/18 07/28/23 documented as of this encounter
--- OUTSIDE RECORDS SUMMARY | 2024-02-21 13:27 | XMS_ITS | Encounter Summary ---
[place] [address] Care Team Providers Care Tax Professional Name Role Phone Maricarmen Galvan APRN Primary Care Provider [phone] Reason for Visit * Reason Onset Date Comments Appointment 12/13/2019 Encounter Details Date Type Department Care Team (Late Contact Info) Description 12/13/2019 Telephone [place] [phone] Shoaib Casey RN Appointment Social History Tobacco Use Types Packs/Day [...] PM EST Office Visit Hematology/Oncology at [address] [phone] Imer Baker MD [facility] DR HEMATOLOGY [place] [address] Heidi Cruz OBSTETRIC ASSISTANT [address] [place] [address] [place] [address] 03/01/2024 2:00 PM EST Infusion Hematology Oncology at [address] [phone] 03/23/2024 11:30 AM EST TH Visit (TeleHealth) [place] [address] Tory Willard [facility] [place] [address] documented as of this encounter Visit Diagnoses Not on filedocumented in this encounter Care Teams Tax Professional Relationship Specialty Start Date End Date Maricarmen Galvan APRN PCP - General Family Medicine 05/10/18 07/28/23 documented as of this encounter
--- OUTSIDE RECORDS SUMMARY | 2024-02-21 13:27 | XMS_ITS | Encounter Summary ---
Author Organization [facility] [place] [address] Care Team Providers Care Elder Counselor Name Role Phone Maricarmen Galvan APRN Primary Care Provider [phone] Encounter Details Date Type Department Care Team (Late st Contact Info) Description 07/12/2019 Telephone [place] [address] Siomara Gaxiola Social History Tobacco Use Types Packs/Day Years [...] * Telephone Encounter - Analia Geronimo - 07/21/2019 2:56 PM EDT Received incoming call back from [facility], stating pt called and they did not have the order.I advised them that someone from their office called us stating they could not do the vascular portion of the ultrasound, and that someone from our office had called them back stating it was okay to do without the vascular portion. The secretary bookkeeper from [facility] said they need a new order, without [...] that we have the order changed and re-fax to them, and said they would reach back out to the pt to let them know what happened. * Telephone Encounter - Analia Geronimo - 07/21/2019 2:51 PM EDT Pt's Girish called in stating they had not yet heard from [facility] to schedule pt's ultrasound. I advised him that they do have the order, and provided him the phone # to call them to schedule. I asked him to call us back once they had scheduled it, so we could schedule a telehealth or phone visit f/u for sometime after the imaging has been done. * Telephone Encounter - Siomara Gaxiola - 07/12/2019 1:00 PM EDT [facility] contact the office to let us know that they received the order but they are not able to complete the vascular portion of this ultrasound. [facility] suggested patient has ultrasound here if that portion of the exam is needed. * Telephone Encounter - Siomara Gaxiola - 07/12/2019 12:10 PM EDT US ordered faxed to [facility] Outpatient Imaging per 's request. He will call to schedule a telephone conference when scan is ordered. [facility] Alt: [phone] documented in this encounter Plan of Treatment Upcoming Encounters Date Type Department Care Team (Late st Contact Info) Description 03/01/2024 1:30 PM EST Office Visit Hematology/Oncology at [address] [phone] Imer Baker MD [facility] DR [place] [address] Heidi Cruz APRN [address] [place] [address] [place] [address] 03/01/2024 2:00 PM EST Infusion Hematology Oncology at [address] [phone] 03/23/2024 11:30 AM EST TH Visit (TeleHealth) [place] [address] Tory Willard APRN [facility] [place] [address] documented as of this encounter Visit Diagnoses Not on filedocumented in this encounter Care Teams Elder Counselor Relationship Specialty Start Date End Date Maricarmen Galvan APRN PCP - General Family Medicine 05/10/18 07/28/23 documented as of this encounter
--- OUTSIDE RECORDS SUMMARY | 2024-02-21 13:27 | XMS_ITS | Encounter Summary ---
Author Organization [facility] Address [facility] [place] [address] Care Team Providers Care Claim Approver Name Role Phone Maricarmen Galvan APRN Primary Care Provider [phone] Encounter Details Date Type Department Care Team (Late Contact Info) Description 12/26/2019 Notes [place] [address] Kaleb Puga Social History Tobacco Use Types [...] encounter Progress Notes * Kaleb Puga - 12/26/2019 3:31 PM EST [...] PM EST Office Visit Hematology/Oncology at [address] [phone] Imer Baker MD [facility] DR [place] [address] Heidi Cruz APRN [address] [place] [address] [place] [address] 03/01/2024 2:00 PM EST Infusion Hematology Oncology at [address] [phone] 03/23/2024 11:30 AM EST TH Visit (TeleHealth) [place] [address] Tory Willard, [facility] [place] [address] documented as of this encounter Visit Diagnoses Not on filedocumented in this encounter Care Teams Claim Approver Relationship Specialty Start Date End Date Maricarmen Galvan APRN PCP - General Family Medicine 05/10/18 07/28/23 documented as of this encounter
--- OUTSIDE RECORDS SUMMARY | 2024-02-21 13:27 | XMS_ITS | Encounter Summary ---
Author Organization [facility] [place] [address] Care Team Providers Care Process Control Manager Name Role Phone Maricarmen Galvan APRN Primary Care Provider [phone] Reason for Visit * Reason Comments Specialty Pharmacy Review Encounter Details Date Type Department Care Team (Late st Contact Info) Description 08/01/2019 Specialty [place] [phone] Anny Hernadez, [facility] Social History Tobacco Use Types [...] PM EST Office Visit Hematology/Oncology at [address] [phone] Imer Baker MD [facility] DR [place] [address] Heidi Cruz APRN [address] [place] [address] DR MEDICAL ONCOLOGY [place], [place] [address] 03/01/2024 2:00 PM EST Infusion Hematology Oncology at [address] [phone] 03/23/2024 11:30 AM EST TH Visit (TeleHealth) [place] [address] Tory Willard APRN [facility] [place] [address] documented as of this encounter Visit Diagnoses Not on filedocumented in this encounter Care Teams Process Control Manager Relationship Specialty Start Date End Date Maricarmen Galvan APRN PCP - General Family Medicine 05/10/18 07/28/23 documented as of this encounter
--- OUTSIDE RECORDS SUMMARY | 2024-02-21 13:27 | XMS_ITS | Encounter Summary ---
[place] [address] Care Team Providers Care Retail Services Professional Name Role Phone Jeanna Smith APRN Primary Care Provider [phone] Reason for Visit * Reason Comments Cognitive Decline Neuropsychological A ssessment * Consultation (Routine) - Closed Specialty Diagnoses / Procedures Referred By Contac t Referred To Contact Psychiatry Diagnoses Memory deficit. Generalized anxiety disorder. Procedures PRO NEUROPSYCHOLOGICAL TESTING,PER HOUR BY DEVELOPMENTAL BEHAVIORAL PHYSICIAN Jeanna Smith APRN [address] [place] [address] [facility] [address] [place] [address] Referral ID Status Reason Start Date Expiration Date V isits Requested Visits Authorized [id number] Closed Consult, Test & [facility] 05/22/2016 05/22/2017 1 1 Encounter Details Date Type Department Care Team (Late st Contact Info) Description 10/29/2016 8:30 AM EDT Office Visit Psychiatry [place] [address] Winifred Melgoza, PhD Memory deficit; Generalized anxiety disorder Social History Tobacco Use Types [...] as of this encounter Progress Notes * Winifred Melgoza, PhD - 10/29/2016 8:30 AM EDT CONFIDENTIAL NEUROPSYCHOLOGICAL EVALUATION Patient's Name: Shereen Vega A#: [id number] Date of Evaluation: 10/29/2016 Age: 66 years Date of : 1950 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 She was referred in the context of subjective memory deficits. As her history is well known to you, it will be only briefly reviewed for our files. Please refer to her medical records for additional information. Background information was obtained from an interview with Mrs. Vega and her , Girish Vega, as wellas from a review of the available medical records. Mrs. Vega reported lifelong difficulties with attention and memory, which she believes have worsened over the past several months. Mr. Vega agreed, and they both reported that she has recently become more forgetful and often repeats herself. She also reported word finding difficulties. Furthermore, she described poor balance starting approximately a year ago, and records indicate a history of ataxia. While she initially experienced weakness on her left side, she now has bilateral weakness. This is being treated with medication and physical therapy. She reported being able to complete basic and instrumental activities of daily living without assistance to the extent that her pain seco ndary to rheumatoid arthritis (RA) allows. Mr. Vega did not disagree. Medical History: and Mrs. Vega described two episodes which occurred 8- 10 years ago during which she became disoriented and exhibited slurred speech; they each lasted approximately one hour. They classified these as both seizures and ???mini strokes?? during the interview. She also described sensory deficits which are attributed to medical conditions (e.g., glaucoma, cataracts, and rheumatoid arthritis). Medical history is otherwise significant for diabetes, ascending aorta dilation, vertigo, thrombocytopenia, osteopenia, psoriasis, chronic periodontitis, and a mild head injury in the context of falling off the couch this past year (no LOC; no reported [place] [place]; no hospitalization; no residual difficulties). A brain MRI in 2011 showed no acute abnormality, and no evidence of an acute infarct or intracranial mass. Psychiatric History: Mrs. Vega described her current mood as ???ok?? and consistent with what is typical for her, while Mr. Vega described recent ???moodiness.?? She reported a 20-year history of anxiety and depression which is medically treated (Paxil). She feels as though the depressionis well managed while she still experiences some incidences of anxiety, particularly when she is not with her . She denied any current auditory or visual hallucinations. She reported that she has had no appetite recently. She indicated that her sleep is ???not that good?? and she sleeps approximately five hours per night, is often restless in her sleep (yelling and one incident of fallingout of bed), and experiences daytime fatigue. She reported occasional drinking with no history of excessive alcohol use resulting in significant problems (e.g., legal, medical, social). She indicatedhaving no significant history of illicit substance use or tobacco use. Family Medical and Psychiatric History: Family history is notable for Alzheimer???s disease, diabetes, high blood pressure, heart disease, multiple sclerosis, and Parkinson???s disease. Developmental, Educational and Occupational History: Mrs. Vega reported that to her knowledge her gestation and were uncomplicated, and she reached developmental milestones at appropriate ages. She reported leaving school after completing the tenth grade secondary to academic difficultiesdue to her trouble with attention and memory. 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 Medication Status: Mrs. Vega reported that she was taking the following medications at the timeof the evaluation: gabapentin (600mg); paroxetine (40mg); metformin (100mg); lovastatin (40mg); levetiracetam (250mg); levothyroxine (75mg); aspirin; lansoprazole (30mg); Vitamin D; Tramadol (50mg); Folic Acid (400mg); stool softener (250mg); paroxetine (40mg); and humira pen. BEHAVIORAL OBSERVATIONS: Mrs. Vega arrived on time for her appointment and was casually dressed and appropriately groomed. She was oriented to person, place, time, and situation. Gross motor functions were intact but slow on informal observation. Additionally, she made an error when spelling her name, possibly due to poor attention. Spontaneous speech was fluent with normal prosody, and no word finding difficulty wasapparent. Receptive language appeared intact, and she was able to understand test instructions without difficulty, although she was had difficulty properly following the instructions on a visual scanning task requiring rapid sequencing (Trails B), and this test was discontinued. Thought processes were linear and coherent, and of normal content. She reported her mood as ???ok?? and affect was congruent with mood. Mrs. Vega was cooperative with the interview and testing, appeared motivated to perform to the best of her abilities, and scores on performance validity measures were within expectation. Thus, the present results are judged to be a valid reflection of her current level of cognitive functioning. PROCEDURES ADMINISTERED: Clinical Interview; [employer] [Test of Premorbid Functioning (TOPF) and Word Choice (WCT)]; High View Diagnostic Aphasia Examination (BDAE; selected subtests); High View Naming Test (BNT); Brief Visuospatial Memory Test- Revised (BVMT-R); [place] Verbal Learning Test, Second Edition (CVLT-II); Clock Drawing Test; Cross, Cube, and Hexagon Copy; Kristin-Greene Executive Function System(D-KEFS, verbal fluency); Geriatric Anxiety Inventory (GAI); Geriatric Depression Scale (GDS); Grooved Pegboard Test; Lateral Dominance Examination; Praxis Test; Thumb-Finger Sequencing Test; Leroy Making Test; Joe Adult Intelligence Scale - 4th edition (WAIS-IV, selected subtests);Joe Memory Scale, Fourth Edition (WMS-IV, Logical Memory); Wisconsin Card Sorting Test (WCST; 1 deck administration). Total time spent in testing, interpretation, and report writin hours, 10 minutes TEST RESULTS: Note: Descriptors are based on appropriate normative data and the chart below and are adjusted based on clinical judgment. The terms impaired and ???within normal limits (WNL)?? are used when a more specific level of functioning cannot be determined. DESCRIPTOR Percentile Rank DESCRIPTOR Percentile Rank Very Superior 98 and above Borderline 2 to 9 Superior 91 to 97 Extremely Low / Impaired 1.9 and below High Average 75 to 90 Mildly Impaired 0.38 to 1.9 Average 25 to 74 Moderately Impaired 0.13 to 0.37 Low Average 10 to 24 Severely Impaired 0.12 and below General Intellectual Functioning: DESCRIPTOR WAIS-IV: Age-Scaled Score Verbal Comprehension Index: 83 Low Average Similarities 6 Low Average Vocabulary 8 Average Working Memory Index: 77 Borderline Digit Span 8 Average Arithmetic 4 Borderline Standard Score Test of Premorbid Functionin Low Average Memory: Joe Memory Scale-IV: Raw Score (scaled score) Logical Memory I 15/50 (5) Borderline Logical Memory II 550 (3) Mildly Impaired Logical Memory Recognition 14/30 Impaired California Verbal Learning Test-II: Raw Score Total Trials 1 to 5 25/80 (3-4-4-7-7) Mildly Impaired Short-Delay Free Recall 4/16 Borderline Short-Delay Cued Recall 8/16 Borderline Long Delay Free Recall 0/16 Moderately Impaired Long Delay Cued Recall 6/16 Borderline Recognition Hits 14/16 Low Average False Positive Errors 11 Moderately Impaired Discriminability -1.5 Borderline Forced Choice Recognition 16/16 Within Expectation BVMT-R: Raw Score Total Learning (Trials 1-3) 8/36 (1-3-4) Impaired Delayed Recall 3/12 Impaired Recognition Hits 6/6 WNL False Positive Errors 0 WNL Attention/Executive Function: WAIS-IV Digit Span: Scaled Score (Max. Span) Forward 8 (5) Average Backward 10 (5) Average Sequencing 8 (5) Average Scaled Score WAIS-IV Codin Borderline Leroy Making Test: Raw Score (T Score) Part A 50 secs., 0 errors (42) Low Average Part B Discontinued due to significant errors D-KEFS Verbal Fluency Test: Raw Score (Scaled Score) Letter Total Correct 16 (4) Borderline Category Total Correct 27 (7) Low Average Category Switching Total Correct 12 (9) Average Category Switching Accuracy 11 (10) Average Wisconsin Card Sorting Test: Raw Score Categories (trials) 0 (64) Borderline Perseverative Errors 45 Impaired Language: Raw Score BDAE Sentence Comprehension: 12/03 Low Average Confrontation Naming (BNT): 49/60 Mildly Impaired Visuospatial/Visuoconstruction: Raw Score Clock Drawin WNL Copy: Z-score Cross -0.3 Average Cube -2.4 Mildly Impaired Intersecting Hexagons -1.0 Low Average WAIS-IV Block Design: Scale Score 5 Borderline Sensory-Motor: Grooved Pegboard Test: Raw Score Dominant Hand 171 sec., 0 drops Severely Impaired Non-Dominant Hand 151 sec., 0 drops Severely Impaired Thumb-Finger Sequencing Test: Raw Score Dominant Hand 3 Severely Impaired Non-Dominant Hand 5 Borderline Mood and Personality: Raw Score Geriatric Depression Scale: 8 WNL Geriatric Anxiety Inventory: 6 WNL REVIEW OF TEST RESULTS: Intellectual Functioning: Overall verbal intellectual functioning was within the low average range (VCI = 83). Baseline verbal abilities were estimated to fall in the low average range based on a word reading test (TOPF). This suggests current verbal intellectual functioning at a level commensuratewith baseline level of functioning. Learning and Memory: Immediate recall for contextual verbal information (i.e., stories) was in the borderline range and delayed recall was in the mildly impaired range. Recognition memory for the information was in the impaired range. Learning of a 16-item word list over five trials was in the mildly impaired range, with benefit from repetition. Short-delay recall was in the borderline range while long-delay recall was in the moderately impaired range; she was unable to freely recall any words after this delay. She benefited from category cues. Recognition discriminability was in the borderline range; she was able to correctly recognize 14/16 words (low average range) but made eleven false positive errors (moderately impaired range). Learning and delayed recall of a display of six geometric figures was in the impaired range, and recognition memory was intact; she recalled 6/6 figures with no false positive errors. Overall, she demonstrated difficulties with learning and recall of verbal and visual information, with benefit from repetition and cues. While recognition for verbal information was in the impaired range, she demonstrated intact recognition for visual information, suggesting better consolidation of visual information than verbal information. Attention and Executive Functions: Immediate auditory attention was in the average range for basic repetition of digits. Maintaining and manipulating information in working memory was in the average range for repeating digits backwards and when repeating them in sequential order. Performance on a measure of working memory requiring mental arithmetic fell in the borderline range. Performance on a timed measure of symbol-digit substitution also fell in the borderline range. Timed number sequencing was in the low average range with no errors. When cognitive demands increased by requiring alternation between letter and number sequencing, she was able to perform adequatelyon the sample trial; however, the task was discontinued during the test trial due significant errors. On a task which required alternating between word categories, performance fell in the average range for switching accuracy. Verbal abstract reasoning was in the low average range. On an unstructured problem solving task, 0/3 category sorts were completed (borderline range) after one deck of cardswas administered, and there were significant perseverative errors, suggesting impaired ability to think flexibly when provided with examiner feedback. Overall, she demonstrated intact performance on simple tasks of basic auditory attention and working memory, timed visual scanning, verbal abstract reasoning, and category switching, with impairments as task complexity increased on measure of working memory and set shifting, and abstract problem solving. Language: Performance on a task of comprehending nuanced language in brief questions and short stories was within normal limits. Vocabulary knowledge was in the average range. Expressive language showed rapid word generation to letter cues in the borderline range, with low average range rapid word generation to semantic category cues. Confrontation naming was in the mildly impaired range, was without paraphasic errors or perceptual distortions, and showed minimal benefit from the provision of phonemic cues (2/9 correct). Narrative writing was in generally intact with some defects in the mechanics of her writing (occasional inappropriate capitalization) and in the sentence structure. Overall, assessed receptive language abilities were generally intact, while weaknesses were found in expressive language abilities, with poor word retrieval and naming ability; this may have been impacted, at least in part, by her limited formal education. Visuospatial/Visuoconstruction: Ability to reproduce two dimensional designs using blocks was in the borderline range. Clock drawing to command was within normal limits, with a distortion in the drawing of the hands (did not connect in center) and errors in the spatial arrangement of numbers. Ability to copy shapes varied, with general intact ability copying two-dimensional shapes, and mild impairment on the copy of a three-dimensional cube. Sensory-Motor: On the Grooved Pegboard Test, fine motor coordination and speed was in the severely impaired range bilaterally. Thumb-finger sequencing was in the severely impaired range when using her right hand, and in the borderline range when using her left hand. Praxis was intact on a screeningmeasure. Questionnaire Measures: On self-report mood screening measures, Mrs. Vega???s pattern of responses did not indicate significant symptoms consistent with depression or anxiety. She denied suicidalideation, intent or plan. Although she reported a history of depression and anxiety, this self-repor t was consistent with her current clinical presentation and suggests that affective distress is notlikely to be having an impact on her cognitive functioning at this time. SUMMARY AND RECOMMENDATIONS: On the current evaluation, Mrs. Vega demonstrated impaired word list and object learning, retrieval of verbal and visual information, verbal recognition memory, and copy of a three-dimensional shape. Impairments were also seen on tasks of motor dexterity, which was likely due to her RA, and on naming, which may have been affected by her limited formal education. She also had variable executive functioning skills, with impairment on measures of cognitive flexibility and problem solving. Weaknesses (borderline range) were observed for other aspects of verbal learning and memory, as well as on a number of timed tasks including a task of processing speed, verbal letter fluency, and visuospat ial construction with blocks. Performance was within normal limits for simple auditory attention and working memory, receptive language, visual recognition memory, visuospatial copy of two-dimensional shapes, and category fluency. Of note, performance on tasks of motor speed and dexterity was likely impacted by her rheumatoid arthritis. These results were obtained in the context of estimated low average verbal intellectual abilities, good task persistence, and no current significant affective distress. Overall, Mrs. Vega demonstrated many cognitive abilities within expectation, with deficits noted for verbal learning and memory, and visual learning and retrieval, as well as difficulties with aspects of complex executive functioning and naming. While the etiology of her difficulties is unclear, the present pattern of findings is consistent with a diagnosis of Mild Neurocognitive Disorder, with reports of recent worsening of lifelong difficulties with learning and recall. Potential etiologies include her cardiovascular risk factors, reports of sleep disturbances, and movement disturbances(e.g., poor balance, reports of ataxia, slow motor functioning). We offer the following recommendations: ??? Given her cardiovascular risk factors and their impact on cognitive functioning, continued monitoring and management of her cardiovascular conditions is encouraged. She is encouraged to maintain a healthy lifestyle that includes appropriate diet, sleep, appropriate exercise and compliance with p rescribed treatments. ??? Given her recent history of poor sleep and the known effects sleep can have on cognition, a referral for a sleep study evaluation may be appropriate. It will also be important to determine if there are any significant sleep disturbances, as this may help with rule out differential diagnoses (i.e., possible dementia with Lewy Bodies). ??? In terms of learning and memory, she benefits from repetition and cues. Therefore, it is recommended that information is presented to her several times to ensure encoding, and is presented with contextual cues to allow for improved retrieval. ??? Other techniques to compensate for memory deficits may include keeping a calendar of weekly appointments, and setting alarms on her phone that states what the purpose of the alarm is (e.g., if she has an upcoming appointment, or if she has a task to complete). ??? She may also benefit from breaking down complex tasks into smaller, less demanding tasks; completing tasks she finds more difficult or challenging at times when she feels most rested; and she allocating additional time to complete more complex tasks. Thank you for referring Mrs. Vega for neuropsychological evaluation. If you would like additional information, please do not hesitate to contact us at . MERARY White, Ph.D., ABPP Predoctoral Quality Assurance Monitor Final in Neuropsychology Board Certified in Clinical Neuropsychology nuclear technologist Director, Neuropsychology Program A predoctoral wildlife biology internship in neuropsychology was involved in test administration, interpretation, and report development. The interpretation and integration of pertinent clinical information found in thisreport was directed and verified by the supervising neuropsychologist/licensed clinical psychologist. documented in this encounter Plan of Treatment Upcoming Encounters Date Type Department Care Team (Late st Contact Info) Description 03/01/2024 1:30 PM EST Office Visit Hematology/Oncology at [address] [phone] Imer Baker MD [facility] [address] HEMATOLOGY [place] [address] Heidi Cruz [address] [address] 03/01/2024 2:00 PM EST Infusion Hematology Oncology at [address] [phone] 03/23/2024 11:30 AM EST TH Visit (TeleHealth) [place] [address] Tory Willard ADVERTISING TRAFFIC MANAGER [facility] [place] [address] documented as of this encounter Visit Diagnoses Diagnosis Memory deficit Memory loss Generalized anxiety disorder documented in this encounter Care Teams Retail Services Professional Relationship Specialty Start Date End Date Jeanna Smith APRN PCP - General 12/16/11 05/09/18 documented as of this encounter
--- OUTSIDE RECORDS SUMMARY | 2024-02-21 13:27 | XMS_ITS | Encounter Summary ---
Author Organization [facility] Address [facility] [place] [address] Care Team Providers Care Bilingual Recruiter Name Role Phone ChagoMaricarmen luo JORGE Primary Care Provider [phone] Encounter Details Date Type Department Care Team (Latest Contact Info) Description 02/06/2020 9:20 AM EST - 02/06/2020 11:59 PM EST Hospital [place] [phone] Tory Ayers NUTRITION CONSULTANT [facility] [place] [place] [address] Hepatic cirrhosis, unspecified hepatic cirrhosis type, unspecified [...] PM EST Office Visit Hematology/Oncology at [address] [address] Imer Baker MD [facility] DR HEMATOLOGY AND ONCOLOGY [place], [place] [phone] Heidi Cruz, [address] [address] 03/01/2024 2:00 PM EST Infusion Hematology Oncology at [address] [address] 03/23/2024 11:30 AM EST TH Visit (TeleHealth) [place] [address] Tory Ayers, [facility] [place] [address] documented as of this encounter Procedures Procedure Name Priority Date/Time Associated Diagnosis Comments US ABDOMEN LIMITED HEPATOLOGY PROTOCOL Routine 02/06/2020 9:53 AM EST Hepatic cirrhosis, unspecified hepatic cirrhosis type, unspecified whether ascites present documented in this encounter Results * US Abdomen Limited Hepatology Protocol (02/06/2020 [...] Prostate Exam Reason^cirrhosis, screen for varices ? Eldia Allen, Staff Physician Electronically Signed Final Report ?? 02/06/2020 10:19 am Narrative 02/06/2020 10:20 AM EST Abdominal ? (Signed Final 02/06/2020 10:19 am) PATIENT INFO: ID #: ? [id number] ?: ??[birth year] (69 yrs)(F) Name: ? ELEAZAR Kim ? Visit Date: 02/06/2020 09:51 am ? BO PERFORMED BY: Performed By: ? Nessa Pitts RDMS Attending: ?Tiffany SHARPE, Elida Casper Referred By: ?TORY AYERS Location: ? [place] SERVICE(S) PROVIDED: ??UABDLIM - Hepatology Protocol - Abdominal ? 59036 ??Limited Survey Single Organ or Quadrant - ??[id number] INDICATIONS: ??cirrhosis, screen for varices COMPARISON: Abdominal ultrasound ??07/28/19 from [facility] ------ LIVER: ------ Right Lobe Length: [...] 02/06/2020 10:19 am) PATIENT INFO: ID #: [id number] : [birth year] (69 yrs)(F) Name: ELEAZAR Kim Visit Date: 02/06/2020 09:51 am BO PERFORMED BY: Performed By: Nessa Pitts RDMS Attending: Elida Allen MD Referred By: TORY AYERS Location: [place] SERVICE(S) PROVIDED: UABDLIM - Hepatology Protocol - Abdominal 99173 Limited Survey Single Organ or Quadrant - [id number] INDICATIONS: cirrhosis, screen for varices COMPARISON: Abdominal ultrasound 07/28/19 from [facility] ------ LIVER: ------ Right Lobe Length: [...] below. Prostate Exam Reason^cirrhosis, screen for varices Elida Allen, Staff Physician Electronically Signed Final Report 02/06/2020 10:19 am Tory Ayers APRN [facility] GEN ORDERAB LES documented in this encounter Visit Diagnoses Diagnosis Hepatic cirrhosis, unspecified hepatic cirrhosis type, unspecified whether ascites present documented in this encounter Care Teams Bilingual Recruiter Relationship Specialty Start Date End Date Maricarmen Galvan APRN PCP - General Family Medicine 05/10/18 07/28/23 documented as of this encounter
--- OUTSIDE RECORDS SUMMARY | 2024-02-21 13:27 | XMS_ITS | Encounter Summary ---
[place] [address] Care Team Providers Care Healthcare Sales Representative Name Role Phone Maricarmen Galvan APRN Primary Care Provider [phone] Reason for Referral * Physical Therapy (Routine) - Specialty Diagnoses / Procedures Referred By Anna macias Referred To Contact Diagnoses Psoriatic arthritis Chivo Aguayo MD [facility] [place] [address] Referral ID Status Reason Start Date Expiration Date V isits Requested Visits Authorized [id number] Evaluate and Treat 01/02/2019 07/01/2019 12 12 Encounter Details Date Type Department Care Team (Late st Contact Info) Description 01/02/2019 11:00 AM EST Office [place] [address] Chivo Aguayo MD Psoriatic arthritis Social History Tobacco Use [...] Sign Reading Time Taken Comments Blood Pressure 108/69 01/02/2019 10:58 AM EST Pulse 93 01/02/2019 10:58 AM EST Temperature 36.7 ??C (98 ??F) 01/02/2019 10:58 AM EST Respiratory Rate - - Oxygen Saturation 96% 01/02/2019 10:58 AM EST Inhaled Oxygen Concentration - - Weight 53.5 kg (118 lb) 01/02/2019 10:58 AM EST Height 152.4 cm (5') 01/02/2019 10:58 AM EST Body Mass Index 23.05 01/02/2019 10:58 AM EST documented in this encounter Progress Notes * Chivo Aguayo MD - 01/02/2019 11:00 AM EST Rheumatology Outpatient Follow Up Note PCP: JORGE An Judy Vega is a 68 y.o. female who we are seeing for the continuing management of Psoriatic Arthritis. Rheum History: 1) Psoriatic Arthritis - 08/2018 transferred care to [facility] form Dr. Wang -Dx [place] [address] Burleson in [facility] -Affected joints: hand, wrist, elbow, shoulder, knee, ankle, neck -Treatment: Enbrel (+MTX 5 mg weekly for part of the course; as per Dr Burleson notes given to Dr. Wang higher doses of MTC caused liver issues) 6325-5210. - Humira since 2011 (20 mg every other week), intermittently on prednisone with flare-ups -X-rays of hands, feet, and sacroiliac joints in 2012 should no erosions or other evidence of psoriatic arthritis; did show OA. Knee X-rays in 2015 showing early osteoarthritis. -Dr. Wang had been trying to get Xeljanz approved for patient given concern that Humira patient felt not working 2) Osteoporosis -On calcium 600 mg once BID and Vitamin D3 2000 units daily -DEXA 2015 L spine T score -1.4, -1.9 in L spine in L1, z score 0.6 -DEXA 2012 L spine T score -1.5, z score 0.4 -Off Fosamax since 2010 Interval History: Mrs. Vega is a 68-year-old female with a past medical history of psoriatic arthritis presents for a follow-up visit. She reports that she was recently restarted on Humira approximately 2 months ago and since starting Humira her symptoms have improved dramatically. Her morning stiffness is less than 10 minutes most mornings, she is tolerating Humira well without any injection site reactions. She has not noticed any changes in her vision, joint swelling or joint pain. ROS (positives in bold): Gen: no fevers, no chills, no night sweats Pulm: no SOB CV: no CP Abd: no abd pain, no nausea, no vomiting, no diarrhea MSK: see HPI Meds and Allergies: Reviewed in eDH Physical exam: BP 108/69 Pulse 93 Temp 36.7 ??C (98 ??F) (Oral) Ht 152.4 cm (5') Wt 53.5 kg (118 lb) SpO2 96% BMI 23.05 kg/m?? Gen: well appearing female, alert and oriented x 3, nad HEENT: moist mucous membranes, no oral ulcers, normal sclerae Lymph: no cervical LAD Heart: regular rate, no murmurs, rubs or gallops Lungs: clear to auscultation b/l Abd: soft, +bs, NT/ND Skin: warm and dry, no rheumatologic rashes Joints: normal ROM throughout the upper and lower extremity joints, no synovitis or tenderness in the hands, wrists,elbows, shoulders, knees, ankles and feet 5 degree ulnar drift of the right hand Labs/Studies: Reviewed. Assessment/Plan: 1) PsA Currently well controlled since starting Humira about two months ago. Overall disease activity is low, morning stiffness <10mins, no joint swelling or pain. - continue adalimumab 40mg every other week - Follow up [place] [address] Lugo 2) Left Knee OA - Physical therapy referral - Tylenol prn - Diclofenac gel bid prn Patient was Seen and discussed with Dr. Chema Aguayo MD Rheumatology Fellow Pager: [phone] * Mamadou Bear II, DO - 01/02/2019 11:00 AM EST I have seen the patient and reviewed Dr. Aguayo's above history and I agree with the details as written. The assessment and plan were formulated in discussion with me and I agree with them as documented. documented in this encounter Plan of Treatment Upcoming Encounters Date Type Department Care Team (Late st Contact Info) Description 03/01/2024 1:30 PM EST Office Visit Hematology/Oncology at [address] [address] Imer Baker MD [facility] [place] [address] Heidi Cruz SALES MERCHANDISE ASSOCIATE [address] [place] [address] [place] [address] 03/01/2024 2:00 PM EST Infusion Hematology Oncology at [address] [address] 03/23/2024 11:30 AM EST TH Visit (TeleHealth) [place] [address] Tory Willard APRN [facility] [place] [address] Scheduled Referrals Name Type Priority Associated Diagnoses Orde r Schedule Referral to Physical Therapy Outpatient Referral Routine Psoriatic arthritis Ordered: 01/02/2019 documented as of this encounter Visit Diagnoses Diagnosis Psoriatic arthritis Psoriatic arthropathy documented in this encounter Care Teams Healthcare Sales Representative Relationship Specialty Start Date End Date Maricarmen Galvan APRN PCP - General Family Medicine 05/10/18 07/28/23 documented as of this encounter
--- OUTSIDE RECORDS SUMMARY | 2024-02-21 13:27 | XMS_ITS | Encounter Summary ---
Author Organization [facility] Address [facility] [place] [address] Care Team Providers Care Urologist Physician Name Role Phone Maricarmen Galvan APRN Primary Care Provider [phone] Encounter Details Date Type Department Care Team (Late st Contact Info) Description 07/25/2019 10:12 AM EDT - 07/25/2019 1:47 PM EDT Hospital Encounter [place] [phone] Azam Dee MD [facility] [place] [address] Discharge Disposition: Home Social History Tobacco Use [...] 07/25/2019 10:33 AM E DT Respiratory Rate 16 07/25/2019 1:10 PM EDT [...] the day after the procedure, use an rwde-vif-jqnnvpb spray to numb your throat. Sucking on [...] occurs, please contact your Doctor. Please call [phone] before 8pm Mon-Fri with problems, questions or concerns. If you call after 8pm or on weekends, call the Hospital at [phone] and ask to speak to the Toll Operator telecommunication equipment repairer and the pie crimping machine operator will contact that person for [...] any problems. Where can you learn more? [facility] View your After Visit Summary and more online at [email or web address] If you would like to provide feedback about your hospital experience, please call the Office of Patient and Family Relations at . If you have received this After Visit Summary in error, please immediately return it in person to the department, or notify the [facility] Privacy Office by calling toll free at between the hours of 8AM and 5PM to arrange for our retrieval of the documents at no cost to you. Content Version: 12.2 ?? 0901-4994 [employer]. Care instructions adapted under license by [facility]. If you have questions about a medical condition or this instruction, always ask your healthcare professional. [employer] disclaims any warranty or liability for your [...] complication. Informed Consent signed by patient (or training representative). documented in this encounter Plan of Treatment Upcoming Encounters Date Type Department Care Team (Late st Contact Info) Description 03/01/2024 1:30 PM EST Office Visit Hematology/Oncology at [address] [address] Imer Baker MD [facility] [place] [address] Heidi Cruz [address] [address] 03/01/2024 2:00 PM EST Infusion Hematology Oncology at [address] [address] 03/23/2024 11:30 AM EST TH Visit (TeleHealth) [place] [address] Tory Willard APRN [facility] [place] [place] [address] documented as of this encounter Procedures Procedure Name Priority Date/Time Associated Diagnosis Comments Upper GI Endoscopy, Diagnostic (65323) 07/25/2019 12:07 PM EDT Hepatic cirrhosis, unspecified hepatic cirrhosis type, unspecified whether ascites present UPPER GI ENDOSCOPY Routine 07/25/2019 11 :05 AM EDT POCT GLUCOSE Routine 07/25/2019 10:42 AM EDT documented in this encounter Results * UPPER GI ENDOSCOPY (07/25/2019 11:05 AM EDT) [facility] UPPER GI ENDOSCOPY [facility] Endoscopy Procedure Date: 07/25/2019 11:05 AM ? Patient Name: Shereen Vega ? N: [id number] ? Date of : 1950 ? Age: 69 ? Order #: [id number] ? Instrument Name: [id number] ? Procedure: ? Upper GI endoscopy Indications: ? Cirrhosis rule out esophageal varices Providers: ? Azam Dee MD, Rigo Montoya ? Isaiah Weaver, Kindra [place]. ? MD Humberto Referring : ?Maricarmen Padilla. [place]ag[place]erio Medicines: ? Fentanyl 50 micrograms IV, Midazolam [...] the physician, the nurse ? and the blood or blood bank technician. The procedure was ? verified in [...] 07/25/2019 11:0 5 AM EDT Maricarmen Galvan INSURANCE LAW SPECIALIST GENERAL SURGICAL ORD ERABLES Performing Organization Address [facility] Co de Phone Number PROVATION * (ABNORMAL) POCT Glucose (07/25/2019 10:42 AM EDT) Glucose, POC 223(H) 65 - 199 mg/dL [facility] Comment: Supplemental ranges: <140 mg/dL before meals <180 mg/dL all other times of the day Blood specimen (specimen) 07/25/2019 10:42 AM EDT 07/25/2019 10:42 AM EDT Azam Dee MD POINT OF CARE ANDRIY T ORDERABLES Performing Organization Address [facility] Co de Phone Number [facility] [place] [address] documented in this encounter Visit Diagnoses Not on filedocumented in this encounter Administered Medications Inactive Administered Medications - up to 3 most recent administrations Medication Order MAR Action Action Date Dose Rate Site lactated ringers infusion 100 mL/hr, Intravenous, CONTINUOUS, Starting on Tu07/25/19 at 1045, Until Tu07/25/19 at 1327, Endoscopy (Day of Procedure) New Bag 07/25/2019 10:49 AM EDT 100 mL/hr 100 mL/hr documented in this encounter Active and Recently Administered Medications Times are shown in EDT. Continuous Medication Order 07/23/2019 07/24/2019 07/25/2019 lactated ringers infusion (CANCELED) 100 mL/hr, Intravenous, CONTINUOUS, Starting on Wed07/25/19 at 1045, Until 07/25/19 at 1327, Endoscopy (Day of Procedure) 1049 (New Bag - Prov ider: Brooklyn Coker RN) PRN Medication Order 07/23/2019 07/24/2019 07/25/2019 fentaNYL 50 mcg/mL multi-dose injection (CANCELED) ONCE PRN, Starting on 07/25/19 at 1212, Until 07/25/19 at 1547, Intra-Operative (Intra-Procedure), Routine 1212 (Given - Provid er: Rigo Weaver RN) midazolam (PF) (VERSED) multi-dose injection (CANCELED) ONCE PRN, Starting on 07/25/19 at 1212, Until 07/25/19 at 1547, Intra-Operative (Intra-Procedure), Routine 1212 (Given - Provid er: Rigo Weaver RN)1217 (Given - Provider: Rigo Weaver RN) documented in this encounter Care Teams Urologist Physician Relationship Specialty Start Date End Date Maricarmen Galvan, INSURANCE LAW SPECIALIST PCP - General Family Medicine 05/10/18 07/28/23 documented as of this encounter
--- OUTSIDE RECORDS SUMMARY | 2024-02-21 13:27 | XMS_ITS | Encounter Summary ---
Author Organization [facility] [place] [address] Care Team Providers Care Em Physician Name Role Phone Maricarmen Galvan APRN Primary Care Provider [phone] Encounter Details Date Type Department Care Team (Late Contact Info) Description 09/27/2018 [place] [address] Manny Lugo MD Psoriatic arthritis Social History [...] Progress Notes * Manny Lugo MD - 09/27/2018 1:01 PM EDT Humira-CF too costly for patient. Have ordered Humira. She has used this medication in the past, sodoes not need teaching. Patient has labs ordered in 4 weeks, and follow-up appt in November. -Dr. Lugo documented in this encounter Plan of Treatment Upcoming Encounters Date Type Department Care Team (Late Contact Info) Description 03/01/2024 1:30 PM EST Office Visit Hematology/Oncology at [address] [address] Imer Baker MD [facility] [place] [address] Heidi Cruz FASHION ADVISER [address] [place] [address] [place] [address] 03/01/2024 2:00 PM EST Infusion Hematology Oncology at [address] [address] 03/23/2024 11:30 AM EST TH Visit (TeleHealth) [place] [address] Tory Willard FASHION ADVISER [facility] [place] [address] documented as of this encounter Visit Diagnoses Diagnosis Psoriatic arthritis Psoriatic arthropathy documented in this encounter Care Teams Em Physician Relationship Specialty Start Date End Date Maricarmen Galvan APRN PCP - General Family Medicine 05/10/18 07/28/23 documented as of this encounter
--- OUTSIDE RECORDS SUMMARY | 2024-02-21 13:27 | XMS_ITS | Encounter Summary ---
Author Organization [facility] [place] [address] Care Team Providers Care Import Export Manager Name Role Phone Maricarmen Galvan [facility] Primary Care Provider [phone] Encounter Details Date Type Department Care Team (Late Contact Info) Description 07/28/2019 12:25 PM EDT Ancillary Procedure Radiology Library at [facility] [address] [place] [address] Tory Willard [facility] [place] [address] Social History Tobacco Use Types Packs/Day Years [...] PM EST Office Visit Hematology/Oncology at [address] [phone] Imer Baker MD [facility] HEMATOLOGY [place] [address] Heidi Cruz [address] [address] 03/01/2024 2:00 PM EST Infusion Hematology Oncology at [address] [address] 03/23/2024 11:30 AM EST TH Visit (TeleHealth) [place] [address] Tory Willard APRN [facility] [place] [address] documented as of this encounter Procedures Procedure Name Priority Date/Time Associated Diagnosis Comments FILM LIBRARY STORAGE ONLY ULTRASOUND STUDY Routine 07/28/2019 12:22 PM EDT documented in this encounter Results * Film Library- Storage Only Ultrasound Study (07/28/2019 12:22 PM EDT) Narrative RAD - 07/28/2019 12:22 PM EDT This exam is auto-finalizing. It's purpose is for storage only. Tory Willard APRN IMG FILM LIBRARY O RDERABLES [place], [place] documented in this encounter Visit Diagnoses Not on filedocumented in this encounter Care Teams Import Export Manager Relationship Specialty Start Date End Date Maricarmen Galvan APRN PCP - General Family Medicine 05/10/18 07/28/23 documented as of this encounter
--- OUTSIDE RECORDS SUMMARY | 2024-02-21 13:27 | XMS_ITS | Encounter Summary ---
Author Organization [facility] [place] [address] Care Team Providers Care Student Services Rep Name Role Phone DeweyJeanna alvarez Letty PATEL Primary Care Provider [phone] Encounter Details Date Type Department Care Team (Late Contact Info) Description 01/20/2016 Ancillary Procedure Radiology Library at [facility] [place] [address] [place] [address] Maricarmen Galvan, PORTABLE FEED MILL OPERATOR [address] [place] [address] Social History Tobacco Use Types Packs/Day Years [...] PM EST Office Visit Hematology/Oncology at [address] [phone] Imer Baker MD [facility] HEMATOLOGY AND [place] [address] Heidi Cruz PORTABLE FEED MILL OPERATOR [address] [place] [address] [place] [address] 03/01/2024 2:00 PM EST Infusion Hematology Oncology at [address] [address] 03/23/2024 11:30 AM EST TH Visit (TeleHealth) [place] [address] Tory Willard APRN [facility] [place] [address] documented as of this encounter Procedures Procedure Name Priority Date/Time Associated Diagnosis Comments FILM LIBRARY STORAGE ONLY CT CHEST Routine 01/20/2016 12:00 AM EST documented in this encounter Results * Film Library- Storage Only CT Chest (01/20/2016 12:00 AM EST) Narrative [facility] - 01/13/2019 2:12 PM EST This exam is auto-finalizing. It's purpose is for storage only. Maricarmen Galvan APRN IMG FILM LIBRARY ORD ERABLES Performing Organization Address City/State/[facility] Co de Phone Number [place], [place] documented in this encounter Visit Diagnoses Not on filedocumented in this encounter Care Teams Student Services Rep Relationship Specialty Start Date End Date Jeanna Smith APRN PCP - General 12/16/11 05/09/18 documented as of this encounter
--- OUTSIDE RECORDS SUMMARY | 2024-02-21 13:28 | XMS_ITS | Encounter Summary ---
Author Organization [facility] Address [facility] [place] [address] Care Team Providers Care Stock Broker Name Role Phone Maricarmen Galvan JORGE Primary Care Provider [phone] Encounter Details Date Type Department Care Team (Late st Contact Info) Description 01/31/2013 Interpretation Only Radiology [address] [place] [address] [place] [address] Unknown None Social History Tobacco Use Types Packs/Day Years [...] PM EST Office Visit Hematology/Oncology at [address] [phone] Imer Baker MD [facility] DR HEMATOLOGY [place] [address] Heidi Cruz APRN [address] [place] [address] DR MEDICAL ONCOLOGY [place], [place] [address] 03/01/2024 2:00 PM EST Infusion Hematology Oncology at [address] [phone] 03/23/2024 11:30 AM EST TH Visit (TeleHealth) [place] [address] Tory Willard APRN [facility] [place] [address] documented as of this encounter Procedures Procedure Name Priority Date/Time Associated Diagnosis Comments XR CERVICAL SPINE 1 VIEW Routine 01/31/2013 9:58 AM EST documented in this encounter Results * XR Cervical Spine 1 View (01/31/2013 9:58 AM EST) Anatomical Region Laterality Modality C-spine N/A Radiographic Aixa ging 01/31/2013 9:58 AM EST Narrative 01/31/2013 9:58 AM EST APD Historical Result Principal Jukebox Checker: ??KEREN ??Jc LATERAL CERVICAL SPINE - NEUTRAL POSITION: CLINICAL HISTORY: ??Following laminoplasty. Limited comparison is made with preoperative images. 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 ??The C3 spinous process has been resected. ??A laminoplasty is present at C5 and at C6 with plate and threaded screws securing the decompression event. ??No prevertebral soft tissue swelling seen. Unchanged degenerative disc disease lies at the C6-7 level. Keren Orellana MD, FACR [facility]/me [id number] CC: Procedure Note Unknown - 08/22/2018 APD Historical Result Principal Jukebox Checker: KEREN Greene LATERAL CERVICAL SPINE - NEUTRAL POSITION: CLINICAL HISTORY: Following laminoplasty. Limited comparison is made with preoperative images. The patient has a blocked vertebral body incorporating C2 and C3 as asingle unit and this is a congenital variation and is of doubtful significance. The C3 spinousprocess has been resected. A laminoplasty is present at C5 and at C6 with plate and threaded screwssecuring the decompression event. No prevertebral soft tissue swelling seen. Unchangeddegenerative disc disease lies at the C6-7 level. Keren Orellana MD, FACR [facility]/juan [id number] CC: Unknown IMG DX ORDERABLES documented in this encounter Visit Diagnoses Not on filedocumented in this encounter Care Teams Stock Broker Relationship Specialty Start Date End Date Maricarmen Galvan APRN PCP - General Family Medicine 05/10/18 07/28/23 documented as of this encounter
--- OUTSIDE RECORDS SUMMARY | 2024-02-21 13:28 | XMS_ITS | Encounter Summary ---
Author Organization [facility] Address [address] [place] [address] Care Team Providers Care Special Effects Makeup Artist Name Role Phone Cole Maricarmen Padilla THERAPY AIDE Primary Care Provider [phone] Encounter Details Date Type Department Care Team (Late st Contact Info) Description 07/29/2022 Lab Requisition [facility] Pathology & Laboratory Medicine - [facility] [address] [place] [address] Sherri Mike MD [address] [place] [id number] Unspecified cirrhosis of liver (HCC-CMS) Social History Tobacco Use Types Packs/Day Years Used Date Smoking Tobacco: Never Smokeless Tobacco: Never Alcohol Use Standard Drinks/Week Comments No 0 (1 standard drink = 0.6 oz pur e alcohol) Comments No Sex and Gender Information Value Date Recorded Sex Assigned at Not on file Legal Sex Female 18:27 EST Gender Identity Not on file Sexual Orientation Not on file documented as of this encounter Plan of Treatment Not on file documented as of this encounter Procedures Procedure Name Priority Date/Time Associated Diagnosis Comments SURGICAL PATHOLOGY Today 07/29/2022 8:25 EDT Unspecified cirrhosis of liver (HCC-CMS) documented in this encounter Results * SURGICAL PATHOLOGY (07/29/2022 8:25 EDT) Note to Patient The following pathology results have been interpreted by your pathologist and may be available to you before your health provider has had the opportunity to review them. Please allow time for your provider to receive these results and explore management options, if applicable. 07/30/2022 12:45 [facility] Final Diagnosis A. STOMACH, ANTRUM, BIOPSY: - Antral mucosa with reactive (chemical) gastropathy. - Negative for Helicobacter pylori on H&E stained sections. B. STOMACH, BODY, BIOPSY: - Gastric fundic mucosa with no significant diagnostic abnormalities. - Negative for Helicobacter pylori on H&E stained sections. C. GASTROESOPHAGEAL JUNCTION, BIOPSY: - Mild chronic inflammation of squamocolumnar mucosa with reactive changes. - Consistent with reflux esophagitis. - Negative for intestinal metaplasia and dysplasia. 07/30/2022 12:45 [facility] Attestation By the signature below, the attending physician certifies that they have 1) personally conducted a gross and/or microscopic examination of the described specimen(s), and/or personally interpreted the results of laboratory testing of the described specimen(s), and 2) personally rendered or confirmed the above diagnosis. 07/30/2022 12:45 [facility] at 1245 Clinical History Difficulty swallowing 07/30/2022 12:45 [facility] Gross Description A. Received in formalin labelled with proper patient identification (initials C, K) and antrum are 2 light beebe tissues measuring 0.2 x 0.2 x 0.1 cm and 0.4 x 0.2 x 0.1 cm. Submitted intact in A1. B. Received in formalin labelled with proper patient identification (initials C, K) and body are 2 beebe-pink tissues measuring 0.2 x 0.2 x 0.1 cm and 0.7 x 0.2 x 0.1 cm. Submitted intact in B1. C. Received in formalin labelled with proper patient identification (initials C, K) and GE junction are 2 beebe-white tissues measuring 0.4 x 0.2 x 0.1 cm and 0.5 x 0.3 x 0.2 cm. Submitted intact in C1. SHARITA ZHENG(ASCP) 07/29/2022 20:07 07/30/2022 12:45 [facility] Performing Lab [facility] 12:45 EDT [facility] Scanned Images 07/30/2022 12:45 EDT [facility] Tissue ENTIRE ESOPHAGUS / Unknown 07/29/2022 8:25 EDT 07/29/2022 16:57 EDT Tissue specimen (specimen) STOMACH STRUCTURE / Unknown 07/29/2022 8:25 EDT 07/29/2022 16:57 EDT Tissue specimen (specimen) ESOPHAGEAL STRUCTURE / Unknown 07/29/2022 8:25 EDT 07/29/2022 16:57 EDT us Sherri Mike MD PATHOLOGY ORDERABLES Fin al Result [facility] [address] [place] [address] documented in this encounter Visit Diagnoses Diagnosis Unspecified cirrhosis of liver (HCC-CMS) documented in this encounter Care Teams Special Effects Makeup Artist Relationship Specialty Start Date End Date Maricarmen Galvan NP [address] [place] [id number] PCP - General 08/22/21 documented as of this encounter
--- OUTSIDE RECORDS SUMMARY | 2024-02-21 13:28 | XMS_ITS | Encounter Summary ---
Author Organization [facility] Address [address] [place] [address] Care Team Providers Care Fire Chief Name Role Phone Jeanna Smith THREAD DRESSER Primary Care Provider [phone] Reason for Visit * Reason Onset Date Comments Medications Refill 11/04/2011 Encounter Details Date Type Department Care Team (Late st Contact Info) Description 11/04/2011 Refill [facility] Rheumatology & Immunology - [address] [address] Anny Huff, RN Medications Refill Social History Tobacco Use Types Packs/Day Years [...] of this encounter Ordered Prescriptions Prescription Sig Dispense Quantity Refills Last Filled Start Date End Date adalimumab (HUMIRA PEN) 40 mg/0.8 mL PnKt Inject 0.8 mL into the skin every 14 days. Every two weeks. 6 Pen 3 11/04/2011 documented in this encounter Plan of Treatment Not on file documented as of this encounter Visit Diagnoses Not on filedocumented in this encounter Discontinued Medications Medication Sig Discontinue Reason Start Date End Da te adalimumab (HUMIRA PEN) 40 mg/0.8 mL PnKt Inject 0.8 mL into the skin every 14 days. Every two weeks. Reorder 11/05/2010 11/04/2011 documented as of this encounter Care Teams Fire Chief Relationship Specialty Start Date End Date Jeanna Smith NP [facility] [address] [place] [address] PCP - General 06/14/08 08/21/21 documented as of this encounter
--- OUTSIDE RECORDS SUMMARY | 2024-02-21 13:28 | XMS_ITS | Encounter Summary ---
Author Organization [facility] [place] [address] Care Team Providers Care Construction Teacher Name Role Phone Marina Montague MD Primary Care Provider [phone] Reason for Visit * Reason Comments Procedure SEP Encounter Details Date Type Department Care Team (Latest Contact Info) Description 08/18/2011 8:30 AM EDT Procedure [place] [address] ELECTROENCEPHALO GRAM, NEURO [facility] [place] [place] [address] Marquez Foley MD [facility] [place] [address] Balance problem Discharge Disposition: Home Social History Tobacco Use [...] documented as of this encounter Procedure Notes * Marina Reagan MD - 08/18/2011 10:48 AM [...] formed and of normal amplitude. Latencies are withinthe normal range. Conclusion: Normal study. No conduction delay in the somatosensory pathways of the tibial nerve bilaterally. Cc: documented in this encounter Plan of Treatment Upcoming Encounters Date Type Department Care Team (Late st Contact Info) Description 03/01/2024 1:30 PM EST Office Visit Hematology/Oncology at [address] [phone] Imer Baker MD [facility] DR HEMATOLOGY [place] [address] Heidi Cruz [address] [place] [address] 03/01/2024 2:00 PM EST Infusion Hematology Oncology at [address] [phone] 03/23/2024 11:30 AM EST TH Visit (TeleHealth) [place] [address] Tory Willard APRN [facility] [address] [place] [address] documented as of this encounter Procedures Procedure Name Priority Date/Time Associated Diagnosis Comments SOMATOSENSORY EVOKED POTENTIALS - LOWER LIMBS Routine 08/19/2011 4:05 PM EDT Balance problem documented in this encounter Results * SOMATOSENSORY EVOKED POTENTIALS - LOWER LIMBS (08/19/2011 4:05 PM EDT) Narrative Marina Reagan MD - 08/19/2011 4:05 PM EDT ? PTSEP#: [id number] Posterior Tibial Somatosensory Evoked Potentials (PTSEP) Name: ?Shereen Vega Date of Study: ??08/18/2011 Referring Physician: Marquez Foley M.D. Clinical History: The patient is a 61 year old female with a six month history of gradually progressive worsening balance problem ?of gradual onset. Procedure: ??Four-channel somatosensory evoked potentials with stimulation of the posterior tibial nerve at the ankle were recorded over the popliteal fossa, T-12 and the contralateral somatosensory neocortex. ?Latency (msec) Generator Wave Left Right Left/Right Difference Normal Latency Normal Left/Right Difference Lumbar Spinal Cord N21 22.0 21.8 0.2 < 22.1 < 1.2 Contralateral Neocortex ??P37 38.6 37.8 0.8 < 46.5 < 1.4 ? Latency (msec) Interwave Left Right Left/Right Difference [...] somatosensory pathways of the tibial nerve bilaterally. ?? Cc: Procedure Note Marina Reagan MD - 08/18/2011 10:48 AM EDT PTSEP#: [id number] Posterior Tibial Somatosensory Evoked Potentials (PTSEP) Name: Shereen Vega Date of Study: 08/18/2011 Referring Physician: Marquez Foley M.D. Clinical History: The patient is a 61 year old female with a six monthhistory of gradually progressive worsening balance problemof gradual onset. Procedure: Four-channel somatosensory evoked potentials with stimulationof the posterior tibial nerve at the ankle were recorded over thepopliteal fossa, T-12 and the contralateral somatosensory neocortex. [...] waveforms are reproducible, well formed and of normalamplitude. Latencies are within the normal range. Conclusion: Normal study. No conduction delay in the somatosensorypathways of the tibial nerve bilaterally. Cc: Marquez Foley MD NEUROLOGY ORDERABLES documented in this encounter Visit Diagnoses Diagnosis Balance problem Other symptoms involving nervous and musculoskeletal systems documented in this encounter Care Teams Construction Teacher Relationship Specialty Start Date End Date Marina Montague MD [address] [place] [address] PCP - General 01/14/10 12/15/11 documented as of this encounter
--- OUTSIDE RECORDS SUMMARY | 2024-02-21 13:28 | XMS_ITS | Encounter Summary ---
Author Organization [facility] Address [address] [place] [address] Care Team Providers Care Digital Marketing Consultant Name Role Phone Jeanna Smith NP Primary Care Provider [phone] Reason for Visit * Reason Onset Date Comments Labs Only 08/24/2011 Encounter Details Date Type Department Care Team (Late st Contact Info) Description 08/24/2011 Telephone [facility] Rheumatology & Immunology - [address] [address] Jimmy Burleson Chi, MD [address] [facility], [address] [place] [address] Labs Only Social History Tobacco Use Types Packs/Day Years [...] encounter Miscellaneous Notes * Telephone Encounter - Connie Lorenzo RN - 08/24/2011 1521 EDT Labs faxed. Pt was notified. * Telephone Encounter - Jimmy Burleson Chi, MD - 08/24/2011 1500 EDT Have signed for arthritis labs that can be drawn at the same time; please fax to them. * Telephone Encounter - Connie Lorenzo, RN - 08/24/2011 1435 EDT Standing lab orders faxed over to [facility] at [phone] per pt request. Anything you want him to do before his next set of labs are done based on labs last week? * Telephone Encounter - Izzy Montejo - 08/24/2011 1047 EDT Patient received a letter stating that she is to come [facility] for labs and patient was wondering if she could get her labs done at the [facility] in [facility]. [phone] phone for [facility]. Patient is suppose to get her labs done on 10/18/11. Please call patient. documented in this encounter Plan of Treatment Not on file documented as of this encounter Visit Diagnoses Diagnosis Psoriatic arthritis ([facility]) Psoriatic arthropathy Encounter for long-term (current) use of other medications Inflammatory arthritis Unspecified inflammatory polyarthropathy documented in this encounter Care Teams Digital Marketing Consultant Relationship Specialty Start Date End Date Jeanna Smith NP [facility] [address] [place] [address] PCP - General 06/14/08 08/21/21 documented as of this encounter
--- OUTSIDE RECORDS SUMMARY | 2024-02-21 13:28 | XMS_ITS | Encounter Summary ---
Author Organization [facility] Address [address] [place] [address] Care Team Providers Care Food Technician Name Role Phone Jeanna Smith NP Primary Care Provider [phone] Encounter Details Date Type Department Care Team (Late st Contact Info) Description 02/06/2011 Results Only [facility] Gastroenterology - [facility] [address] [place], [place] [id number] Sridhar Foley MD Social History Tobacco Use Types Packs/Day [...] Procedure Name Priority Date/Time Associated Diagnosis Comments MULTIPLE DOC ORDERS Routine 02/06/2011 1 5:35 EST SED RATE Routine 02/06/2011 15:35 EST documented in this encounter Results * (ABNORMAL) SED. RATE:GUILLERMO (02/06/2011 15:35 EST) Sed. Rate Guillermo 35(H) 0 - 30 mm/hr [facility] 02/06/2011 15:3 5 EST 02/06/2011 15:41 EST us Sridhar Foley MD HEMATOLOGY & PF4 ORDERABLES Marita l Result Performing Organization Address [facility] Co de Phone Number [facility] [address] [place] [address] * MULTIPLE DOC ORDERS (02/06/2011 15:35 EST) Multiple Doc Orders This report contains lab results ordered [facility] Comment: by another provider which were collected and processed simultaneously with the orders you requested. If you have any questions, please call Customer Service at [phone]. 02/06/2011 15:3 5 EST 02/06/2011 15:41 EST Sridhar Foley MD CHEMISTRY & BLOOD GAS ORDERABLES Final Result Performing Organization Address [facility] de Phone Number [facility] [address] [place] [address] documented in this encounter Visit Diagnoses Not on filedocumented in this encounter Care Teams Food Technician Relationship Specialty Start Date End Date Jeanna Smith, SMOKING PIPE DRILLER AND THREADER [facility] [address] [place] [address] PCP - General 06/14/08 08/21/21 documented as of this encounter
--- OUTSIDE RECORDS SUMMARY | 2024-02-21 13:28 | XMS_ITS | Encounter Summary ---
Author Organization [facility] Address [address] [place] [address] Care Team Providers Care Film Spooler Name Role Phone Jeanna Smith NP Primary Care Provider [phone] Reason for Visit * Reason Onset Date Comments Medications Refill 05/21/2011 Encounter Details Date Type Department Care Team (Late st Contact Info) Description 05/21/2011 Refill [facility] Rheumatology & Immunology - [address] [id number] Jimmy Burleson Chi, MD [address] [place] [address], [address] [place] [address] Medications Refill Social History Tobacco Use Types [...] Refills Last Filled Start Date End Date methotrexate 2.5 mg tablet Take 2 Tabs by mouth once a week. Need labs every 3 mos. 24 Tab 1 05/21/2011 08/17/2011 documented in this encounter Plan of Treatment Not on file documented as of this encounter Visit Diagnoses Not on filedocumented in this encounter Discontinued Medications Medication Sig Discontinue Reason Start Date End Da te methotrexate 2.5 mg tablet Take 2 Tabs by mouth once a week. Reorder 11/05/2010 05/21/2011 documented as of this encounter Care Teams Film Spooler Relationship Specialty Start Date End Date Jeanna Smith NP [facility] [address] [place] [address] PCP - General 06/14/08 08/21/21 documented as of this encounter
--- OUTSIDE RECORDS SUMMARY | 2024-02-21 13:28 | XMS_ITS | Encounter Summary ---
Author Organization [facility] Address [address] [place] [address] Care Team Providers Care Heel Scourer Name Role Phone Jeanna Smith NP Primary Care Provider [phone] Reason for Visit * Reason Comments Joint Pain legs, and numb in ri ght leg from knee down Encounter Details Date Type Department Care Team (Late st Contact Info) Description 08/17/2011 13:00 EDT Office Visit [facility] Rheumatology & Immunology - [address] [phone] Jimmy Burleson Chi, MD [address] [place] [address], [address] [place] [address] Psoriatic arthritis ([facility]) ([facility]); Osteoarthritis cervical spine; Diabetes mellitus ([facility]) ([facility]); Imbalance; Amnesia; Encounter for long-term (current) use of other medications Social History [...] in this encounter Ordered Prescriptions Prescription Sig Dispense Quantity Refills Last Filled Start Date End Date methotrexate 2.5 mg tabletIndications:P soriatic arthritis (HCC-CMS) Take 2 Tabs by mouth once a week. Need labs every 3 mos. 24 Tab 1 08/17/2011 celecoxib (CELEBREX) 100 mg capsuleIndications: Psoriatic arthritis (HCC-CMS),Osteoarth ritis cervical spine Take 1 Cap by mouth 2 times daily. 60 Cap 5 08/17/2011 02/29/2012 documented in this encounter Progress Notes * Jimmy Burleson Chi, MD - 08/17/2011 1316 EDT Images from the original note were not included. Subjective: Patient ID: Shereen Vega is an 61 y.o. female. Chief Complaint Patient presents with ??? Joint Pain legs, and numb in right leg from knee down HPI Comments: Has had 3 episodes of amnesia lasting several hrs each time since Mar. [facility] Mar,May 2011- were unremarkable per Dr Foley (neuro) at [facility] First episode of amnesia 3 yrs ago before starting Enbrel per pt. Numbness of R leg around the R knee for 3 weeks. Stairs aredifficult due to leg weakness. Does have diabetic neuropathy- Diabetes is all over the place, ranges from 59 to 179 to 289. Denies jts swelling. Feels imbalance with standing, walking- has fallen 3weeks ago. Denies any other joint pains or [...] Fatigued appearing petite older female, accompanied by JIMMIET: Head: Normocephalic and atraumatic. [...] mood and affect. Her behavior is normal. [facility] labs January 2011 CMP, CBC normal. Hemoglobin A1c 6.5. ESR 35;TtTG antibody negative. Assessment: Plan: Shereen was seen today for joint pain. Diagnoses and associated orders for this visit: Psoriatic arthritis No active inflammation on current regimen; con't low dose methotrexate and Celebrex, with q 3 to 4 mo. CBC, CMP monitoring for toxicity. Reauthorize [facility]. - Comprehensive Metabolic Panel (CMP); Future - [...] is related to TIA's? Imbalance Unclear etiology- CONSTRUCTION ELECTRICIAN vs peripheral process? Pt is undergoing w/u at [facility]. Amnesia Unclear etiology- undergoing w/u by neuro at [facility]. Doubt related to chronic TNF inhibition- though must keep in mind possibility of PML. Encounter for long-term (current) use of other medications - Comprehensive Metabolic Panel (CMP); Future - C-Reactive Protein; Future - Hemagram & Differential; Future - Sed. Rate:Westergren; Future Barriers to learning identified: No Patient verbalizes understanding and agrees with plan Yes F/u 6 mos. Jimmy Burleson MD * JeancarlosConnie - 08/17/2011 1311 EDT REVIEW OF SYSTEMS: [...] on file documented as of this encounter Results * C-REACTIVE PROTEIN (08/17/2011 13:52 EDT) C-Reactive Protein <0.7 <1.0 mg/dl [facility] Blood specimen (specimen) 08/17/2011 13:52 EDT 08/17/2011 14:06 EDT Jimmy Burleson MD CHEMISTRY & BLOOD GAS ORDERABLES Final Result [facility] [address] [place] [address] documented in this encounter Visit Diagnoses Diagnosis Psoriatic arthritis ([facility]) Psoriatic arthropathy Osteoarthritis cervical spine Cervical spondylosis without myelopathy Diabetes mellitus (HCC-CMS) Type II or unspecified type diabetes mellitus without mention of complication, not stated as uncontrolled Imbalance Abnormality of gait Amnesia Memory loss Encounter for long-term (current) use of other medications documented in this encounter Discontinued Medications Medication Sig Discontinue Reason Start Date End Da te celecoxib (CELEBREX) 100 mg capsuleIndications:Psoria tic arthritis (HCC-CMS),Osteoarthritis cervical spine Take 1 Cap by mouth 2 times daily. Reorder 02/03/2011 08/17/2011 methotrexate 2.5 mg tablet Take 2 Tabs by mouth once a week. Need labs every 3 mos. Reorder 05/21/2011 08/17/2011 documented as of this encounter Historical Medications * This list may reflect changes made after this encounter. glipiZIDE (GLUCOTROL) 5 mg tablet Take 5 mg by mouth daily. levetiracetam (KEPPRA) 500 mg tablet Take 500 mg by mouth 2 times daily. 1/2 tab twice a day added in this encounter Orders Lab Orders Without Results Count Last Ordered D ate First Ordered Date COMPREHENSIVE METABOLIC PANEL (CMP) 1 08/16 HEMAGRAM AND DIFFERENTIAL 1 08/17/2011 SED. RATE:WESTERGREN 1 08/17/2011 documented in this encounter Care Teams Heel Scourer Relationship Specialty Start Date End Date Jeanna Smith NP [facility] [address] [place] [address] PCP - General 06/14/08 08/21/21 documented as of this encounter
--- OUTSIDE RECORDS SUMMARY | 2024-02-21 13:28 | XMS_ITS | Encounter Summary ---
Author Organization [facility] Address [facility] [place] [address] Care Team Providers Care Supervisor Irrigation Name Role Phone Jeanna Smith APRN Primary Care Provider [phone] Encounter Details Date Type Department Care Team (Latest Contact Info) Description 01/18/2012 9:50 AM EST - 01/18/2012 11:59 PM [facility] Hospital Encounter XRay at [address] [place] [address] CLINIC, DR KELLI Wagner, Jordan Flood MD [facility] [place] [address] Spondylosis Discharge Disposition: Home Social History Tobacco Use [...] Dispensed Refills Start Date End Date levothyroxine (SYNTHROID) 75 mcg tablet Take 50 mcg by mouth daily. aspirin 81 mg EC tablet Take 81 mg by mouth daily. lovastatin (MEVACOR) 40 mg tablet Take 40 mg by mouth nightly. metFORMIN (GLUCOPHAGE) 500 mg tablet Take 1,000 mg by mouth daily. UNABLE TO FIND Take 2.5 mg by mouth once a week. Taking 5 mg of Methotrexin. 07/29/2018 TRAMADOL HCL (TRAMADOL ORAL) Take 50 mg by mouth every morning. Takes at bedtime if needed. 02/04/2023 PARoxetine (PAXIL) 40 mg tablet Take 20 mg by mouth every morning. 02/04/2023 atenolol (TENORMIN) 25 mg tablet Take 25 mg by mouth daily. 07/29/2018 ADALIMUMAB (HUMIRA PEN SUBQ) Inject 40 mg subcutaneously every 14 days. 09/14/2018 gabapentin (NEURONTIN) 300 mg capsule Take 600 mg by mouth 3 times daily. 700mg 3xdaily 11/14/2021 leveTIRAcetam (KEPPRA) 500 mg tablet Take 250 mg by mouth 2 times daily. 11/14/2021 celecoxib (CELEBREX) 100 mg capsule Take 100 mg by mouth 2 times daily. 07/29/2018 documented as of this encounter Plan of Treatment Upcoming Encounters Date Type Department Care Team (Late st Contact Info) Description 03/01/2024 1:30 PM EST Office Visit Hematology/Oncology at [address] [phone] Imer Baker MD [facility] DR HEMATOLOGY [place] [address] Heidi Cruz [address] [place] [address] 03/01/2024 2:00 PM EST Infusion Hematology Oncology at [address] [phone] 03/23/2024 11:30 AM EST TH Visit (TeleHealth) [place] [address] Tory Willard [facility] [place] [address] documented as of this encounter Procedures Procedure Name Priority Date/Time Associated Diagnosis Comments XR CERVICAL SPINE 2 OR 3 VIEWS Routine 01/18/2012 10:08 AM EST Spondylosis documented in this encounter Results * XR cervical spine diagnostic 2 or 3 views (01/18/2012 10:08 AM EST) Anatomical Region Laterality Modality C-spine N/A Radiographic Aixa ging 01/18/2012 10:0 8 AM EST Narrative 01/18/2012 10:22 AM EST Examination DIAG CERVICAL SPINE 2 OR 3 VIEWS Clinical History RA and myelopathy; ? instability Comparison There are no prior plain films of the cervical spine. Technique Findings There is slight exaggeration of the upper cervical lordotic curvature. There is a fusion of C2-3 tiny developmental basis. There is narrowing of the C6-7 intervertebral disc space. ??There is significant post spondylosis present at C5-C6. Some facet hypertrophic changes noted at C3-4 with narrowing of the facet joints at the C4-5. Flexion-extension views revealed a fairly good range of flexion-extension with most of the flexion been carried out and the a lower mid cervical region. ?? There is nothing to suggest instability. Do not see any erosion, loss of height of mineralization or facet changes that I would ascribed to rheumatoid arthritis. ?? Impression Osteoarthropathy cervical spine with posterior spondylosis C6-7. ??No instability Procedure Note Richard Ford MD - 01/18/2012 Examination DIAG CERVICAL SPINE 2 OR 3 VIEWS Clinical History RA and myelopathy; ? instability Comparison There are no prior plain films of the cervical spine. Technique Findings There is slight exaggeration of the upper cervical lordotic curvature.There is a fusion of C2-3 tiny developmental basis. There is narrowing of the C6-7 intervertebral disc space. There is significant post spondylosis presentat C5-C6. Some facet hypertrophic changes noted at C3-4 with narrowing of the facet joints at the C4-5. Flexion-extension views revealed a fairly goodrange of flexion-extension with most of the flexion been carried out and the alower mid cervical region. There is nothing to suggest instability. Do not see any erosion, loss ofheight of mineralization or facet changes that I would ascribed to rheumatoid arthritis. Impression Osteoarthropathy cervical spine with posterior spondylosis C6-7. Noinstability Jordan Wagner MD IMG DX ORDERABLES documented in this encounter Visit Diagnoses Diagnosis Spondylosis Spondylosis of unspecified site without mention of myelopathy documented in this encounter Care Teams Supervisor Irrigation Relationship Specialty Start Date End Date Jeanna Smith, VP [employer] PCP - General 12/16/11 05/09/18 documented as of this encounter
--- OUTSIDE RECORDS SUMMARY | 2024-02-21 13:28 | XMS_ITS | Encounter Summary ---
Author Organization [facility] [place] [address] Care Team Providers Care Vegetable I Farmworker Name Role Phone Jeanna Smith APRN Primary Care Provider [phone] Encounter Details Date Type Department Care Team (Late st Contact Info) Description 03/17/2012 Abstract [place] [address] Katina Patricia, ANALYSIS LEAD Social History Tobacco Use Types Packs/Day Years [...] PM EST Office Visit Hematology/Oncology at [address] [phone] Imer Baker MD [facility] DR HEMATOLOGY [place] [address] Heidi Cruz APRN [address] [place] [address] DR MEDICAL ONCOLOGY [place], [place] [address] 03/01/2024 2:00 PM EST Infusion Hematology Oncology at [address] [phone] 03/23/2024 11:30 AM EST TH Visit (TeleHealth) [place] [address] Tory Willard APRN [facility] [place] [address] documented as of this encounter Visit Diagnoses Not on filedocumented in this encounter Care Teams Vegetable I Farmworker Relationship Specialty Start Date End Date Jeanna Smith APRN PCP - General 12/16/11 05/09/18 documented as of this encounter
--- OUTSIDE RECORDS SUMMARY | 2024-02-21 13:28 | XMS_ITS | Encounter Summary ---
Author Organization Count Includes [facility] Address [facility] [place] [address] Care Team Providers Care Baggage Inspector Name Role Phone Marina Montague MD Primary Care Provider [phone] Encounter Details Date Type Department Care Team (Late st Contact Info) Description 03/11/2011 [place] [address] Marquez Foley MD [facility] [place] [address] Social History Tobacco Use Types Packs/Day Years Used Date Smoking Tobacco: Never Assessed Sex and Gender Information Value Date Recorded Sex Assigned at Not on file Gender Identity Not on file Sexual Orientation Not on file documented as of this encounter Plan of Treatment Upcoming Encounters Date Type Department Care Team (Late st Contact Info) Description 03/01/2024 1:30 PM EST Office Visit Hematology/Oncology at [address] [phone] Imer Baker MD [facility] DR [place] [address] Heidi Cruz APRN [address] [place] [address] DR MEDICAL ONCOLOGY [place], [place] [id number] 03/01/2024 2:00 PM EST Infusion Hematology Oncology at [address] [phone] 03/23/2024 11:30 AM EST TH Visit (TeleHealth) [place] [address] Tory Willard APRN [facility] [address] documented as of this encounter Procedures Procedure Name Priority Date/Time Associated Diagnosis Comments FILM LIBRARY STORAGE ONLY MR HEAD Routine 03/11/2011 1:23 PM EST documented in this encounter Results * FILM LIBRARY- STORAGE ONLY MR HEAD (03/11/2011 1:23 PM EST) 03/11/2011 1:23 PM EST Narrative RAD - 08/18/2013 1:35 AM EDT This is a non-reportable exam. Procedure Note Jcarlos Mo - 08/18/2013 This is a non-reportable exam. Marquez Foley MD G FILM LIBRARY ORD ERABLES [facility] [address] [facility] [place] [address] documented in this encounter Visit Diagnoses Not on filedocumented in this encounter Care Teams Baggage Inspector Relationship Specialty Start Date End Date Marina Montague MD [address] [place] [address] PCP - General 01/14/10 12/15/11 documented as of this encounter
--- OUTSIDE RECORDS SUMMARY | 2024-02-21 13:28 | XMS_ITS | Encounter Summary ---
Author Organization [facility] Address [facility] [place] [address] Care Team Providers Care Cigarette Lighter Repairer Name Role Phone Maricarmen Galvan JORGE Primary Care Provider [phone] Encounter Details Date Type Department Care Team (Late st Contact Info) Description 04/18/2013 Interpretation Only Radiology [address] [place] [address] [address] [place] [address] Unknown None Social History Tobacco Use Types [...] PM EST Office Visit Hematology/Oncology at [address] [phone] Imer Baker MD [facility] DR [place] [address] Heidi Cruz APRN [address] [place] [address] DR MEDICAL ONCOLOGY [place], [place] [address] 03/01/2024 2:00 PM EST Infusion Hematology Oncology at [address] [phone] 03/23/2024 11:30 AM EST TH Visit (TeleHealth) [place] [address] Tory Willard APRN [facility] [place] [address] documented as of this encounter Procedures Procedure Name Priority Date/Time Associated Diagnosis Comments XR CERVICAL SPINE 1 VIEW Routine 04/18/2013 12:04 PM EST documented in this encounter Results * XR Cervical Spine 1 View (04/18/2013 12:04 PM EST) Anatomical Region Laterality Modality C-spine N/A Radiographic Aixa ging 04/18/2013 12:0 4 PM EST Narrative 04/18/2013 12:04 PM EST APD Historical Result Principal Lumber Checker: ??KEREN ??Jc CERVICAL SPINE - AP AND LATERAL VIEWS: CLINICAL HISTORY: ??Following dorsal decompression with laminoplasties on March 28, 2012. Comparison is made with lateral view, January 31, 2013. The laminoplasty plates and screws appear intact with no interval changes to suggest metal fatigue fracture. ??The posterior-most threaded screw at C6 appears to have undergone slight retraction/backing out with more threads seen on this than previous examination. ??No other changes noted. ??Degenerative disc disease findings continue with disc narrowing and endplate osteophyte formation. IMPRESSION: Possible threaded screw loosening with slight 'backing out' at C6. Keren Orellana MD, FACR [facility]/mn [id number] CC: Procedure Note Unknown - 08/22/2018 APD Historical Result Principal Lumber Checker: KEREN Greene CERVICAL SPINE - AP AND LATERAL VIEWS: CLINICAL HISTORY: Following dorsal decompression with laminoplasties onFe2012. Comparison is made with lateral view, January 31, 2013. The laminoplasty plates and screws appear intact with no interval changesto suggest metal fatigue fracture. The posterior-most threaded screw at C6 appears to haveundergone slight retraction/backing out with more threads seen on this than previousexamination. No other changes noted. Degenerative disc disease findings continue with discnarrowing and endplate osteophyte formation. IMPRESSION: Possible threaded screw loosening with slight 'backing out' atC6. Keren Orellana MD, FACR [facility]/juan [id number] CC: Unknown IMG DX ORDERABLES documented in this encounter Visit Diagnoses Not on filedocumented in this encounter Care Teams Cigarette Lighter Repairer Relationship Specialty Start Date End Date Maricarmen Galvan APRN PCP - General Family Medicine 05/10/18 07/28/23 documented as of this encounter
--- OUTSIDE RECORDS SUMMARY | 2024-02-21 13:28 | XMS_ITS | Encounter Summary ---
Author Organization [facility] Address [facility] Robert [place] [address] Care Team Providers Care River Tester Name Role Phone CravenJeanna alvarez Letty PATEL Primary Care Provider [phone] Encounter Details Date Type Department Care Team (Late Contact Info) Description 01/30/2012 External Results XRay at [address] [place] [address] Jordan Wagner MD [facility] [place] [address] Social History Tobacco Use Types Packs/Day Years [...] 1:30 PM EST Office Visit Hematology/Oncology at [address] [phone] Imer Baker MD [facility] [place] [address] Heidi Cruz APRN [address] [place] [address] DR MEDICAL ONCOLOGY [place], [place] [address] 03/01/2024 2:00 PM EST Infusion Hematology Oncology at [address] [phone] 03/23/2024 11:30 AM EST TH Visit (TeleHealth) [place] [address] Tory Willard APRN [facility] [place] [address] documented as of this encounter Procedures Procedure Name Priority Date/Time Associated Diagnosis Comments MRI/MRA SCAN Routine 01/28/2012 documented in this encounter Results * Scan Doc: MRI/MRA (01/28/2012) Anatomical Region Laterality Modality Other Jordan Wagner MD MEDIA MGR SCAN EXT O RDR/RSLT documented in this encounter Visit Diagnoses Not on filedocumented in this encounter Care Teams River Tester Relationship Specialty Start Date End Date Jeanna Smith APRN PCP - General 12/16/11 05/09/18 documented as of this encounter
--- OUTSIDE RECORDS SUMMARY | 2024-02-21 13:28 | XMS_ITS | Encounter Summary ---
Author Organization [facility] [place] [address] Care Team Providers Care Nut Chopper Name Role Phone SacramentoJeanna alvarez Letty PATEL Primary Care Provider [phone] Reason for Visit * Reason Comments Back And Neck Pain bilateral leg pain; weakness Encounter Details Date Type Department Care Team (Late st Contact Info) Description 01/18/2012 8:20 AM EST Office [place] [phone] Jordan Wagner MD [facility] [place] [address] Spondylosis (Primary Dx) Discharge Disposition: Home Social History Tobacco Use [...] documented in this encounter Progress Notes * Jordan Wagner MD - 01/18/2012 11:11 AM [...] prefer to have that done up in [facility], and then I will see them [...] 1:30 PM EST Office Visit Hematology/Oncology at [address] [phone] Imer Baker MD [facility] DR HEMATOLOGY [place] [address] Heidi Cruz [address] [place] [address] 03/01/2024 2:00 PM EST Infusion Hematology Oncology at [address] [phone] 03/23/2024 11:30 AM EST TH Visit (TeleHealth) [place] [address] Tory Willard APRN [facility] DR [place] [address] documented as of this encounter Results * XR cervical spine [...] documented in this encounter Visit Diagnoses Diagnosis Spondylosis- Primary Spondylosis of unspecified site without mention of myelopathy Spondylosis Spondylosis of unspecified site without mention of myelopathy documented in this encounter Care Teams Nut Chopper Relationship Specialty Start Date End Date Jeanna Smith, CHILD'S NURSE PCP - General 12/16/11 05/09/18 documented as of this encounter
--- OUTSIDE RECORDS SUMMARY | 2024-02-21 13:28 | XMS_ITS | Encounter Summary ---
Author Organization [facility] Address [address] [place] [address] Care Team Providers Care Printing Estimator Name Role Phone Cole Maricarmen Padilla WAREHOUSE GENERAL LABORER Primary Care Provider [phone] Encounter Details Date Type Department Care Team (Late st Contact Info) Description 09/17/[address] [facility] Pathology & Laboratory Medicine - [facility] [address] [place] [address] Solange Fuenets [address] [place] [address] [place] [phone] Encounter for other general examination Social History Tobacco Use Types Packs/Day Years [...] Date/Time Associated Diagnosis Comments SURGICAL PATHOLOGY Today 09/16/2021 13 :20 EDT Encounter for other general examination documented in this encounter Results * SURGICAL PATHOLOGY (09/16/2021 13:20 EDT) Note to Patient The following pathology results have been interpreted by your pathologist and may be available to you before your health provider has had the opportunity to review them. Please allow time for your provider to receive these results and explore management options, if applicable. 09/18/2021 14:46 [facility] Final Diagnosis A. VULVA, 10 O'CLOCK, BIOPSY: - Squamous cell carcinoma, invasive, keratinizing (Depth of invasion: at least 1.1 mm). - Lesion extends to lateral and deep margins. 09/18/2021 14:46 [facility] Diagnosis Comment Merchandise Marker slides of this case were reviewed at the intradepartmental consultation conference. 09/18/2021 14:46 [facility] Attestation There was significant resident/fellow involvement in the diagnostic evaluation of this case. By the signature below, the attending physician certifies that they have personally conducted a gross and/or microscopic examination of the described specimens and rendered or confirmed the above diagnosis. 09/18/2021 14:46 [facility] at 1446 Clinical History Vulvar lesion 09/18/2021 14:46 [facility] Gross Description A. Received in formalin labelled with proper patient identification (initials C, K) and vulva 10 o'clock is a 0.2 x 0.2 x 0.2 cm ovoid shave of granular beebe skin. The margin is inked. The specimen is submitted intact in A1. SHARITA CAMERON(ASCP) 09/17/2021 9:45 09/18/2021 14:46 [facility] Resident/Fell ow: Guanako Hamlin MD 09/18/2021 14:46 T [facility] Performing Lab [facility] 09/18/2021 14:46 [facility] Scanned Images 09/18/2021 14:46 [facility] Tissue TISSUE SPECIMEN FROM SKIN / Unknown 09/16/2021 13:20 EDT 09/17/2021 9:11 EDT us Solange Fuentes PATHOLOGY ORDERABLES Final Resul t [facility] [address] [place] [address] documented in this encounter Visit Diagnoses Diagnosis Encounter for other general examination documented in this encounter Care Teams Printing Estimator Relationship Specialty Start Date End Date Maricarmen Galvan, LUIS [address] [place] [address] PCP - General 08/22/21 documented as of this encounter
--- OUTSIDE RECORDS SUMMARY | 2024-02-21 13:28 | XMS_ITS | Encounter Summary ---
Author Organization [facility] Address [facility] [place] [address] Care Team Providers Care Analysis Evaluator Name Role Phone Maricarmen Galvan JORGE Primary Care Provider [phone] Encounter Details Date Type Department Care Team (Late st Contact Info) Description 12/26/2012 Interpretation Only Radiology [address] [place] [address] [address] [place] [address] Unknown None Social History Tobacco Use Types [...] PM EST Office Visit Hematology/Oncology at [address] [phone] Imer Baker MD [facility] DR HEMATOLOGY [place] [address] Heidi Cruz APRN [address] [place] [address] DR MEDICAL ONCOLOGY [place], [place] [address] 03/01/2024 2:00 PM EST Infusion Hematology Oncology at [address] [phone] 03/23/2024 11:30 AM EST TH Visit (TeleHealth) [place] [address] Tory Willard APRN [facility] [place] [address] documented as of this encounter Procedures Procedure Name Priority Date/Time Associated Diagnosis Comments XR FLUORO NO RAD <1HR - RADIOLOGY USE Routine 12/26/2012 6:17 AM EST documented in this encounter Results * XR Fluoro <1Hr - Radiology Use (12/26/2012 6:17 AM EST) Anatomical Region Laterality Modality N/A Radiographic Aixa ging 12/26/2012 6:17 AM EST Narrative 12/26/2012 6:17 AM EST APD Historical Result Principal Journeyman Pipe Fitter: ??KEREN ?Bree FLUOROSCOPIC ASSISTANCE: A total of 14.0 seconds of fluoroscopic assistance was provided to Dr Garrido during the performance of a surgical procedure. ??This results in a cumulative dose of 3.00 mGy. ??Five images record the event. ??No Radiologist was in attendance during service provision. Keren Orellana MD, FACR [facility] [id number] CC: Procedure Note Unknown - 08/22/2018 APD Historical Result Principal Journeyman Pipe Fitter: KEREN Greene FLUOROSCOPIC ASSISTANCE: A total of 14.0 seconds of fluoroscopic assistance was provided to Emily during the performance of a surgical procedure. This results in a cumulative dose of3.00 mGy. Five images record the event. No Radiologist was in attendance during service provision. Keren Orellana MD, FACR [facility] [id number] CC: Unknown IMG FLUORO ORDERABLE S documented in this encounter Visit Diagnoses Not on filedocumented in this encounter Care Teams Analysis Evaluator Relationship Specialty Start Date End Date Maricarmen Galvan APRN PCP - General Family Medicine 05/10/18 07/28/23 documented as of this encounter
--- OUTSIDE RECORDS SUMMARY | 2024-02-21 13:28 | XMS_ITS | Encounter Summary ---
Author Organization [facility] Address [address] [place] [address] Care Team Providers Care Association Executive Name Role Phone Jeanna Smith NP Primary Care Provider [phone] Reason for Visit * Reason Onset Date Comments Medications Refill 02/29/2012 Encounter Details Date Type Department Care Team (Late st Contact Info) Description 02/29/2012 Refill [facility] Rheumatology & Immunology - [address] [phone] Jimmy Burleson Chi, MD [address] [place] [address], [address] [place] [address] Medications Refill Social History Tobacco [...] Refills Last Filled Start Date End Date celecoxib (CELEBREX) 100 mg capsuleIndications: Psoriatic arthritis (HCC-CMS),Osteoarth ritis cervical spine Take 1 Cap by mouth 2 times daily. 60 Cap 5 02/29/2012 documented in this encounter Miscellaneous Notes * Telephone Encounter - Aneta Upn - 02/29/2012 1039 EST Pt is scheduled for 05/03/[address] Burleson, is out of celebrex documented in this encounter Plan of Treatment Not on file documented as of this encounter Visit Diagnoses Diagnosis Psoriatic arthritis ([facility]-CMS)- Primary Psoriatic arthropathy Osteoarthritis cervical spine Cervical spondylosis without myelopathy documented in this encounter Discontinued Medications Medication Sig Discontinue Reason Start Date End Da te celecoxib (CELEBREX) 100 mg capsuleIndications:Psoria tic arthritis ([facility]-CMS),Osteoarthritis cervical spine Take 1 Cap by mouth 2 times daily. Reorder 08/17/2011 02/29/2012 documented as of this encounter Care Teams Association Executive Relationship Specialty Start Date End Date Jeanna Smith NP [facility] [address] [place] [address] PCP - General 06/14/08 08/21/21 documented as of this encounter
--- OUTSIDE RECORDS SUMMARY | 2024-02-21 13:28 | XMS_ITS | Encounter Summary ---
Author Organization [facility] Address [facility] [place] [address] Care Team Providers Care Mgmt Analyst Name Role Phone Marina Montague MD Primary Care Provider [phone] Encounter Details Date Type Department Care Team (Late st Contact Info) Description 06/15/2011 Orders [place] [address] Marquez Floey MD [facility] [place] [address] Social History Tobacco Use Types Packs/Day Years [...] 1:30 PM EST Office Visit Hematology/Oncology at [address] [phone] Imer Baker MD [facility] DR HEMATOLOGY [place] [address] Heidi Cruz APRN [address] [place] [address] DR MEDICAL ONCOLOGY [place], [place] [id number] 03/01/2024 2:00 PM EST Infusion Hematology Oncology at [address] [phone] 03/23/2024 11:30 AM EST TH Visit (TeleHealth) [place] [address] Tory Willard APRN [facility] [place] [address] documented as of this encounter Procedures Procedure Name Priority Date/Time Associated Diagnosis Comments FILM LIBRARY STORAGE ONLY MR SPINE Routine 06/15/2011 1:28 PM EDT documented in this encounter Results * FILM LIBRARY- STORAGE ONLY MR SPINE (06/15/2011 1:28 PM EDT) 06/15/2011 1:28 PM EDT Narrative [facility] - 08/18/2013 1:35 AM EDT This is a non-reportable exam. Procedure Note Jcarlos Mo - 08/18/2013 This is a non-reportable exam. Marquez Floey MD G FILM LIBRARY ORD ERABLES [facility] [address] [facility] [place] [address] documented in this encounter Visit Diagnoses Not on filedocumented in this encounter Care Teams Mgmt Analyst Relationship Specialty Start Date End Date Marina Montague MD [address] [place] [address] PCP - General 01/14/10 12/15/11 documented as of this encounter
--- OUTSIDE RECORDS SUMMARY | 2024-02-21 13:28 | XMS_ITS | Encounter Summary ---
Author Organization [facility] Address [facility] [place] [address] Care Team Providers Care Office Rep Name Role Phone Sarah Jeanna Saenz APRN Primary Care Provider [phone] Encounter Details Date Type Department Care Team (Latest Contact Info) Description 12/28/2011 11:30 AM EST - 12/28/2011 11:59 PM EST Hospital [place] [address] Marquez Foley MD [facility] [place] [address] CLINIC, Jordan Mata MD [facility] [place] [address] Cervical spondylosis with myelopathy Discharge Disposition: Home Social History Tobacco Use [...] daily. 07/29/2018 documented as of this encounter Miscellaneous Notes * Miscellaneous - Provider, Scanning - 01/11/2012 11:41 AM EST documented in this encounter Plan of Treatment Upcoming Encounters Date Type Department Care Team (Late st Contact Info) Description 03/01/2024 1:30 PM EST Office Visit Hematology/Oncology at [address] [phone] Imer Baker MD [facility] DR HEMATOLOGY [place] [address] Heidi Cruz [address] [place] [address] 03/01/2024 2:00 PM EST Infusion Hematology Oncology at [address] [phone] 03/23/2024 11:30 AM EST TH Visit (TeleHealth) [place] [address] Tory Willard APRN [facility] [place] [address] documented as of this encounter Procedures Procedure Name Priority Date/Time Associated Diagnosis Comments MRI CERVICAL SPINE WITH/WO CONTRAST Routine 12/28/2011 2:14 PM EST Cervical spondylosis with myelopathy documented in this encounter Results * MRI cervical spine with/WO contrast (12/28/2011 2:14 PM EST) Anatomical Region Laterality Modality C-spine Magnetic Resonan ce 12/28/2011 2:14 PM EST Narrative 01/01/2012 10:10 AM EST Examination MR C spine W WO Raul Clinical History C2-C3 cervical stenosis with myelopathic findings Evaluate for progression compared to 03/05/2011 Comparison Outside MR studies dated June 14 and June 02 are available for comparison. Technique We obtained multi sequence multiplanar views of the cervical region both before and after the intravenous injection of 10 mL of Magnevist. ?? Findings The current study is compared to the outside studies from [facility]. The cord itself is normal. At the C2-3 level a disc osteophyte complex protrudes posteriorly and compresses the cord from anterior to posterior (series 4 image 15). The degree of stenosis is moderate to severe. ?? The C3-4 level is normal. At C4-5 a primarily right-sided disc osteophyte complex protrudes posteriorly but the cord is not significantly distorted. ?? At C5-6 disc osteophyte complex protrudes posteriorly and ??causes foraminal encroachment on the right. ?? Impression ?? Disc osteophyte complexes at C2-3 and C4-5 are exacerbated by hypertrophy of the ligamentum flava posteriorly. Foraminal encroachment is present bilaterally at C4-5. Another disc osteophyte complex is present at C5-6 primarily on the right causing mild foraminal encroachment. Procedure Note Carolina Montoya MD - 01/01/2012 Examination MR C spine W WO Raul Clinical History C2-C3 cervical stenosis with myelopathic findings Evaluate for progression compared to 03/05/2011 Comparison Outside MR studies dated June 14 and June 02 are available forcomparison. Technique We obtained multi sequence multiplanar views of the cervical region bothbefore and after the intravenous injection of 10 mL of Magnevist. Findings The current study is compared to the outside studies from [facility]. The cord itself is normal. At the C2-3 level a disc osteophyte complex protrudes posteriorly and compresses the cord from anterior to posterior (series 4 image 15). The degree of stenosis is moderate tosevere. The C3-4 level is normal. At C4-5 a primarily right-sided disc osteophyte complex protrudes posteriorly but the cord is not significantly distorted. At C5-6 disc osteophyte complex protrudes posteriorly and causesforaminal encroachment on the right. Impression Disc osteophyte complexes at C2-3 and C4-5 are exacerbated by hypertrophyof the ligamentum flava posteriorly. Foraminal encroachment is presentbilaterally at C4-5. Another disc osteophyte complex is present at C5-6 primarily onthe right causing mild foraminal encroachment. Marquez Foley MD IMG MRI ORDERABLES documented in this encounter Visit Diagnoses Diagnosis Cervical spondylosis with myelopathy documented in this encounter Administered Medications Inactive Administered Medications - up to 3 most recent administrations Medication Order MAR Action Action Date Dose Rate Site gadopentetate dimeglumine (MAGNEVIST) injection 0.2 mL/kg 0.2 mL/kg/dose, Intravenous, ONCE PRN, Per Protocol, Starting on Wed12/28/11 at 1400, 1 dose, Until Wed12/28/11 at 1401 Given 12/28/2011 2:01 PM EST 10 mLs documented in this encounter Care Teams Office Rep Relationship Specialty Start Date End Date Jeanna Smith APRN PCP - General 12/16/11 05/09/18 documented as of this encounter
--- OUTSIDE RECORDS SUMMARY | 2024-02-21 13:28 | XMS_ITS | Encounter Summary ---
Author Organization [facility] Address [facility] [place] [address] Care Team Providers Care Silk Blocker Name Role Phone Marina Montague MD Primary Care Provider [phone] Encounter Details Date Type Department Care Team (Late st Contact Info) Description 07/16/2011 External Results XRay at [address] [place] [address] [facility] [place] [address] Social History Tobacco Use Types Packs/Day Years [...] 1:30 PM EST Office Visit Hematology/Oncology at [address] [phone] [facility] DR HEMATOLOGY [place] [address] Heidi Cruz APRN [address] [place] [address] DR MEDICAL ONCOLOGY [place], [place] [address] 03/01/2024 2:00 PM EST Infusion Hematology Oncology at [address] [phone] 03/23/2024 11:30 AM EST TH Visit (TeleHealth) Gastroenterology at [facility] [place] [address] [facility] [place] [address] documented as of this encounter Procedures Procedure Name Priority Date/Time Associated Diagnosis Comments MRI/MRA SCAN Routine 06/15/2011 MRI/MRA SCAN Routine 06/03/2011 MRI/MRA SCAN Routine 03/11/2011 documented in this encounter Results * Scan Doc: MRI/MRA (06/15/2011) Anatomical Region Laterality Modality Other Rolo Kilpatrick MD MEDIA MGR SCAN EXT O RDR/RSLT * Scan Doc: MRI/MRA (06/03/2011) Anatomical Region Laterality Modality Other Rolo Kilpatrick MD MEDIA MGR SCAN EXT O RDR/RSLT * Scan Doc: MRI/MRA (03/11/2011) Anatomical Region Laterality Modality Other Rolo Kilpatrick MD MEDIA MGR SCAN EXT O RDR/RSLT documented in this encounter Visit Diagnoses Not on filedocumented in this encounter Care Teams Silk Blocker Relationship Specialty Start Date End Date Marina Montague MD [address] [place] [address] PCP - General 01/14/10 12/15/11 documented as of this encounter
--- OUTSIDE RECORDS SUMMARY | 2024-02-21 13:28 | XMS_ITS | Referral Summary ---
Author Organization [facility] Address [address] [place] [address] Care Team Providers Care Precision Instrument And Tool Maker Name Role Phone Maricarmen Galvan NP Primary Care Provider [phone] Encounters Date Type Department Care Team Description 02/21/2024 Lab Requisition [facility] Pathology & Laboratory Medicine - [address] [address] Outr Resulting Lab, Provider from Last 3 Months Allergies Active Allergy Reactions Criticality Noted Date Comments Erythromycin 08/29/2009 Upset stomach Penicillins Hives 08/29/2009 Quinine Other (See Comments) High 09/02/2009 Medications aspirin chewable (BABY ASPIRIN) 81 mg tablet Take 1 Tab by mouth daily. Active lovastatin (MEVACOR) 40 mg tablet Take 1 Tab by mouth daily. Active alendronate (FOSAMAX) 70 mg tablet Take 1 Tab by mouth once a week. Active paroxetine (PAXIL) 40 mg tablet Take 1 Tab by mouth daily. Active magnesium oxide (MAG-OX) 400 mg tablet Take 1 Tab by mouth daily. Active atenolol (TENORMIN) 25 mg tablet Take 1 Tab by mouth daily. 04/07/2010 Active calcium carbonate (OS-MANDI) 500 mg (1,250 mg) tablet Take 1 Tab by mouth 2 times daily. Active levothyroxine (SYNTHROID) 75 mcg tablet Take 75 mcg by mouth daily. Active metformin (GLUCOPHAGE) 1,000 mg tablet Take 1,000 mg by mouth 2 times daily. 09/17/2010 Active DOCUSATE CALCIUM (STOOL SOFTENER ORAL) Take by mouth daily. 09/17/2010 Active levetiracetam (KEPPRA) 500 mg tablet Take 500 mg by mouth 2 times daily. 1/2 tab twice a day Active glipiZIDE (GLUCOTROL) 5 mg tablet Take 5 mg by mouth daily. Active methotrexate 2.5 mg tabletIndication s:Psoriatic arthritis ([facility]) Take 2 Tabs by mouth once a week. Need labs every 3 mos. 24 Tab 1 08/17/2011 Active adalimumab (HUMIRA PEN) 40 mg/0.8 mL PnKt Inject 0.8 mL into the skin every 14 days. Every two weeks. 6 Pen 3 11/04/2011 Active celecoxib (CELEBREX) 100 mg capsuleIndicatio ns:Psoriatic arthritis ([facility]),Osteoa rthritis cervical spine Take 1 Cap by mouth 2 times daily. 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 Helicobacter pylori (H. pylori) infection 2002 Overview (11/22/2014): H. Pylori positive ICD10 Update Auto Replacement Depression 09/04/2002 Social History Tobacco Use Types Packs/Day Years [...] 22.49 08/17/2011 1310 EDT Plan of Treatment Not on file Insurance Care Teams Precision Instrument And Tool Maker Relationship Specialty Start Date End Date Maricarmen Galvan EMT BASIC [address] [place] [phone] PCP - General 08/22/21
--- OUTSIDE RECORDS SUMMARY | 2024-02-21 13:28 | XMS_ITS | Encounter Summary ---
Author Organization [facility] Address [address] [place] [address] Care Team Providers Care Load Test Mechanic Name Role Phone Maricarmen Galvan RESOURCE MANAGEMENT PLANNER Primary Care Provider [phone] Encounter Details Date Type Department Care Team (Late st Contact Info) Description 02/21/2024 Lab Requisition [facility] Pathology & Laboratory Medicine - [address] [address] Outr Resulting Lab, Provider Social History Tobacco Use Types Packs/Day Years [...] as of this encounter Plan of Treatment Scheduled Orders Name Type Priority Associated Diagnoses Orde r Schedule AFP TUMOR MARKER Lab Routine Ordered: 02/21/2024 documented as of this encounter Visit Diagnoses Not on filedocumented in this encounter Care Teams Load Test Mechanic Relationship Specialty Start Date End Date Maricarmen Galvan NP [address] [place] [address] PCP - General 08/22/21 documented as of this encounter
--- OUTSIDE RECORDS SUMMARY | 2024-02-21 13:28 | XMS_ITS | Encounter Summary ---
Author Organization [facility] [place] [address] Care Team Providers Care Configuration Engineer Name Role Phone Jeanna Smith APRN Primary Care Provider Encounter Details Date Type Department Care Team (Late st Contact Info) Description 03/04/2012 [place] [address] Katina Patricia, SENIOR TELECOMMUNICATIONS SPECIALIST Social History Tobacco Use Types Packs/Day Years [...] 1:30 PM EST Office Visit Hematology/Oncology at [address] [phone] Imer Baker MD [facility] DR HEMATOLOGY [place] [address] Heidi Cruz APRN [address] [place] [address] DR MEDICAL ONCOLOGY [place], [place] [address] 03/01/2024 2:00 PM EST Infusion Hematology Oncology at [address] [phone] 03/23/2024 11:30 AM EST TH Visit (TeleHealth) [place] [address] Tory Willard APRN [facility] [place] [address] documented as of this encounter Visit Diagnoses Not on filedocumented in this encounter Care Teams Configuration Engineer Relationship Specialty Start Date End Date Jeanna Smith APRN PCP - General 12/16/11 05/09/18 documented as of this encounter
--- OUTSIDE RECORDS SUMMARY | 2024-02-21 13:28 | XMS_ITS | Encounter Summary ---
Author Organization [facility] Address [facility] [place] [address] Care Team Providers Care Integrity Assessor Name Role Phone AuroraJeanna alvarez JORGE Primary Care Provider [phone] Reason for Visit * Reason Comments Low Back Pain Bilateral Leg Pain L>R Encounter Details Date Type Department Care Team (Late st Contact Info) Description 03/21/2012 1:00 PM EST [place] [address] Jordan Wagner MD [facility] [place] [address] Spondylosis (Primary Dx) Discharge Disposition: Home Social [...] as of this encounter Progress Notes * Jordan Wagner MD - 03/21/2012 1:42 PM [...] PM EST Office Visit Hematology/Oncology at [address] [phone] Imer Baker MD [facility] DR [place] [address] Heidi Cruz APRN [address] [place] [address] [place] [address] 03/01/2024 2:00 PM EST Infusion Hematology Oncology at [address] [phone] 03/23/2024 11:30 AM EST TH Visit (TeleHealth) [place] [address] Tory Willard APRN [facility] [place] [address] documented as of this encounter Visit Diagnoses Diagnosis Spondylosis- Primary Spondylosis of unspecified site without mention of myelopathy documented in this encounter Care Teams Integrity Assessor Relationship Specialty Start Date End Date Jeanna Smith APRN PCP - General 12/16/11 05/09/18 documented as of this encounter
--- OUTSIDE RECORDS SUMMARY | 2024-02-21 13:28 | XMS_ITS | Clinical Summary ---
Author Organization [facility] Address [address] [place] [address] Care Team Providers Care Cut Pressman Name Role Phone Maricarmen Galvan DUMP MOTORMAN Primary Care Provider [phone] Allergies Active Allergy Reactions Criticality Noted Date [...] Active methotrexate 2.5 mg tabletIndication s:Psoriatic arthritis ([facility]) Take 2 Tabs by mouth once a week. Need labs every 3 mos. 24 Tab 1 08/17/2011 Active adalimumab (HUMIRA PEN) 40 mg/0.8 mL PnKt Inject 0.8 mL into the skin every 14 days. Every two weeks. 6 Pen 3 11/04/2011 Active celecoxib (CELEBREX) 100 mg capsuleIndicatio ns:Psoriatic arthritis ([facility]),Osteoa rthritis cervical spine Take 1 Cap by mouth 2 times daily. 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 Helicobacter pylori (H. pylori) infection 2002 Overview (11/22/2014): H. Pylori positive ICD10 Update Auto Replacement Depression 09/04/2002 Encounters Date Type Department Care Team Description 02/21/2024 Lab Requisition [facility] Pathology & Laboratory Medicine - [address] [address] Outr Resulting Lab, Provider from Last 3 Months Surgical History Surgery Date Site/Laterality Comments APPENDECTOMY OVARY REMOVAL Right Medical History Medical History Date Comments Plantar fasciitis bilateral Thrombocytopenia ([facility]) 03/18/2009 Quini ne-induced thrombocytopenia in 07/2002 Family History Medical History Relation Comments Arthritis-Osteo Father Arthritis Other Diabetes Other Heart Disease Other Osteoporosis Other Relation Status Comments Father Other Social History Tobacco Use Types Packs/Day Years Used Date Smoking Tobacco: Never Smokeless Tobacco: Never Alcohol Use Standard Drinks/Week Comments No 0 (1 standard drink = 0.6 oz pur e alcohol) Comments No Sex and Gender Information Value Date Recorded Sex Assigned at Not on file Legal Sex Female 18:27 EST Gender Identity Not on file Sexual Orientation Not on file Obstetrics History Last Filed Vital Signs Vital Sign Reading [...] Last Done Comments Hepatitis C Screen 1950 Fall Risk Screening 2014 COVID-19 Vaccine (2023- season) 2023 RSV Immunization ( o r 60+ Years) (1 - 1-dose 75+ series) 2024 Insurance MEDICARE [employer] [place] Care Teams Cut Pressman Relationship Specialty Start Date End Date Maricarmen Galvan, LUIS [address] [place] [phone] PCP - General 08/22/21
--- OUTSIDE RECORDS SUMMARY | 2024-02-21 13:28 | XMS_ITS | Encounter Summary ---
Author Organization [facility] [place] [address] Care Team Providers Care Standard Machine Stitcher Name Role Phone WestchesterJeanna alvarez Letty PATEL Primary Care Provider [phone] Encounter Details Date Type Department Care Team (Late Contact Info) Description 01/28/2012 Orders [place] [address] Jordan Wagner MD [facility] [place] [address] Social History Tobacco Use Types Packs/Day Years [...] PM EST Office Visit Hematology/Oncology at [address] [phone] Imer Baker MD [facility] DR HEMATOLOGY [place] [address] Heidi Cruz APRN [address] [place] [address] DR MEDICAL ONCOLOGY [place], [place] [address] 03/01/2024 2:00 PM EST Infusion Hematology Oncology at [address] [phone] 03/23/2024 11:30 AM EST TH Visit (TeleHealth) [place] [address] Tory Willard APRN [facility] [place] [address] documented as of this encounter Procedures Procedure Name Priority Date/Time Associated Diagnosis Comments FILM LIBRARY STORAGE ONLY MR SPINE Routine 01/28/2012 4:00 PM EST documented in this encounter Results * Film Library- Storage only MR Spine (01/28/2012 4:00 PM EST) 01/28/2012 4:00 PM EST Narrative RAD - 09/11/2013 7:04 PM EDT This is a non-reportable exam. Procedure Note Abhilash Mo - 09/11/2013 This is a non-reportable exam. Jordan Wagner MD IMG FILM LIBRARY ORD ERABLES [facility] [address] [place] [address] documented in this encounter Visit Diagnoses Not on filedocumented in this encounter Care Teams Standard Machine Stitcher Relationship Specialty Start Date End Date Jeanna Smith APRN PCP - General 12/16/11 05/09/18 documented as of this encounter
--- OUTSIDE RECORDS SUMMARY | 2024-02-21 13:28 | XMS_ITS | Encounter Summary ---
Author Organization [facility] Address [facility] [place] [address] Care Team Providers Care Director Of Casino Name Role Phone Marina Montague MD Primary Care Provider [phone] Encounter Details Date Type Department Care Team (Late st Contact Info) Description 09/04/2011 9:30 AM EDT Office [place] [phone] Keren Sheridan, PT [facility] PHYSICAL MEDICINE & [place] [address] Marina Montague MD [address] [place], [place] [phone] Balance problem Discharge Disposition: Home Social History [...] as of this encounter Progress Notes * Keren Sheridan - 09/07/2011 1:40 PM EDT [...] reports occasional dizziness described as lightheaded. She denies vertigo or spontaneous dizziness. Symptoms last a few mins but do not persist. Patient does getheadaches but denies migraines. She denies ear symptoms. She reports falling to the left when standing up at times. Patient does not use assistive device though she feels like she walks better with acart like in the grocery store. Medical history includes RA, diabetes, painful neuropathy in feet. Social/work history: does not work. Lives with , Dionisio, in [place], [place] Number of Falls in last year: 2 Medical/Surgical History: refer to electronic medical record Medications: refer to electronic medical record Functional Limitations: Patient reports difficulty arising from a chair and stabilizing, getting upto go to the bathroom at night, walking [...] 0 Outcome measures: Dynamic Gait Index (DGI): (19 or less considered fall risk); assistive [...] reaching forward with outstretched arm 3, retrieving objectfrom floor 3, turning to look behind 3, turning 360 degrees 2, placing alternating foot on stool 4,standing with one foot in front 3, standing [...] cane without slowing to improve ability to look around during ambulatory ADLs without LOB 4. 30 second sit to stand: 8 reps to improve ability to come to stand from low surfaces, ascend/descend stairs, and ambulate during ADLs Therapy Care Home Goals (6 weeks) 1. Patient able to stand (I) and stabilize without falling to left INITIAL TREATMENT INCLUDED: initial evaluation The patient is not eligible for the R.A.C.E. Study due to her age. PLAN: Frequency and duration: 2x/week x 6 weeks tapering as appropriate. Patient would like to attend PT closer to her home near [facility]. Treatment: Therapeutic exercise, Home Exercise Program and Balance and Gait Training Informed Consent: The patient consented to the physical therapy evaluation. The patient agrees to and understands thephysical therapy treatment plan and goals. Total treatment time: 75 minutes Total Timed Coded Treatment: 0 minutes KEREN SHERIDAN PT documented in this encounter Plan of Treatment Upcoming Encounters Date Type Department Care Team (Late st Contact Info) Description 03/01/2024 1:30 PM EST Office Visit Hematology/Oncology at [address] [phone] Imer Baker MD [facility] DR HEMATOLOGY [place] [address] Heidi Cruz [address] MEDICAL ONCOLOGY [place], [place] [address] 03/01/2024 2:00 PM EST Infusion Hematology Oncology at [address] [phone] 03/23/2024 11:30 AM EST TH Visit (TeleHealth) [place] [address] Tory Willard [facility] DR [place]STR[place] [address] documented as of this encounter Visit Diagnoses Diagnosis Balance problem Other symptoms involving nervous and musculoskeletal systems documented in this encounter Care Teams Director Of Casino Relationship Specialty Start Date End Date Marina Montague MD [address] [place] [address] PCP - General 01/14/10 12/15/11 documented as of this encounter
--- OUTSIDE RECORDS SUMMARY | 2024-02-21 13:28 | XMS_ITS | Encounter Summary ---
Author Organization [facility] [place] [address] Care Team Providers Care Library Technician Name Role Phone SchuylkillJeanna alvarez Letty PATEL Primary Care Provider [phone] Encounter Details Date Type Department Care Team (Late Contact Info) Description 03/15/2012 Orders [place] [address] Jordan Wagner MD [facility] [place] [address] Social History Tobacco Use Types Packs/Day Years [...] PM EST Office Visit Hematology/Oncology at [address] [phone] Imer Baker MD [facility] DR [place] [address] Heidi Cruz APRN [address] [place] [address] DR MEDICAL ONCOLOGY [place], [place] [address] 03/01/2024 2:00 PM EST Infusion Hematology Oncology at [address] [phone] 03/23/2024 11:30 AM EST TH Visit (TeleHealth) [place] [address] Tory Willard APRN [facility] [place] [address] documented as of this encounter Procedures Procedure Name Priority Date/Time Associated Diagnosis Comments FILM LIBRARY STORAGE ONLY MR SPINE Routine 03/15/2012 9:32 AM EST documented in this encounter Results * Film Library- Storage only MR Spine (03/15/2012 9:32 AM EST) 03/15/2012 9:32 AM EST Narrative RAD - 09/11/2013 7:04 PM EDT This is a non-reportable exam. Procedure Note Abhilash Mo - 09/11/2013 This is a non-reportable exam. Jordan Wagner MD IMG FILM LIBRARY ORD ERABLES [facility] [address] [facility] [place] [address] documented in this encounter Visit Diagnoses Not on filedocumented in this encounter Care Teams Library Technician Relationship Specialty Start Date End Date Jeanna Smith APRN PCP - General 12/16/11 05/09/18 documented as of this encounter
--- OUTSIDE RECORDS SUMMARY | 2024-02-21 13:28 | XMS_ITS | Encounter Summary ---
Author Organization [facility] [place] [address] Care Team Providers Care Preservative Filler Machine Operator Name Role Phone Jeanna Smith APRN Primary Care Provider [phone] Encounter Details Date Type Department Care Team (Late st Contact Info) Description 12/24/2011 Abstract [place] [address] Katina Patricia, HOSPITAL [employer]PSMAN Social History Tobacco Use Types Packs/Day Years [...] 1:30 PM EST Office Visit Hematology/Oncology at [address] [phone] [facility] DR [place] [address] Heidi Cruz APRN [address] [place] [address] DR MEDICAL ONCOLOGY [place], [place] [address] 03/01/2024 2:00 PM EST Infusion Hematology Oncology at [address] [phone] 03/23/2024 11:30 AM EST TH Visit (TeleHealth) [place] [address] [facility] [place] [place] [address] documented as of this encounter Visit Diagnoses Not on filedocumented in this encounter Care Teams Preservative Filler Machine Operator Relationship Specialty Start Date End Date Jeanna Smith APRN PCP - General 12/16/11 05/09/18 documented as of this encounter
--- OUTSIDE RECORDS SUMMARY | 2024-02-21 13:28 | XMS_ITS | Encounter Summary ---
Author Organization [facility] Address [facility] [place] [address] Care Team Providers Care Information Technology Professor Name Role Phone AlexandriaJeanna alvarez Letty PATEL Primary Care Provider [phone] Encounter Details Date Type Department Care Team (Late Contact Info) Description 03/17/2012 External Results XRay at [address] [place] [address] Jordan Wagner MD [facility] [place] [address] Social History Tobacco Use Types Packs/Day Years [...] PM EST Office Visit Hematology/Oncology at [address] [phone] Imer Baker MD [facility] [place] [address] Heidi Cruz APRN [address] [place] [address] DR MEDICAL ONCOLOGY [place], [place] [address] 03/01/2024 2:00 PM EST Infusion Hematology Oncology at [address] [phone] 03/23/2024 11:30 AM EST TH Visit (TeleHealth) [place] [address] Tory Willard APRN [facility] [place] [address] documented as of this encounter Procedures Procedure Name Priority Date/Time Associated Diagnosis Comments MRI/MRA SCAN Routine 03/15/2012 documented in this encounter Results * Scan Doc: MRI/MRA (03/15/2012) Anatomical Region Laterality Modality Other Jordan Wagner MD MEDIA MGR SCAN EXT O RDR/RSLT documented in this encounter Visit Diagnoses Not on filedocumented in this encounter Care Teams Information Technology Professor Relationship Specialty Start Date End Date Jeanna Smiht APRN PCP - General 12/16/11 05/09/18 documented as of this encounter
--- OUTSIDE RECORDS SUMMARY | 2024-02-21 13:28 | XMS_ITS | Encounter Summary ---
Author Organization [facility] [place] [address] Care Team Providers Care Smasher Hand Name Role Phone Marina Montague MD Primary Care Provider [phone] Encounter Details Date Type Department Care Team (Late st Contact Info) Description 08/10/2011 [place] [phone] Ana Laura Fuentes, RN Social History Tobacco Use Types Packs/Day [...] PM EST Office Visit Hematology/Oncology at [address] [phone] Imer Baker MD [facility] DR HEMATOLOGY [place] [address] Heidi Cruz SUPERVISOR OF GUIDANCE AND TESTING [address] [place] [address] [place] [address] 03/01/2024 2:00 PM EST Infusion Hematology Oncology at [address] [phone] 03/23/2024 11:30 AM EST TH Visit (TeleHealth) [place] [phone] Tory Willard APRN [facility] [place] [address] documented as of this encounter Visit Diagnoses Not on filedocumented in this encounter Care Teams Smasher Hand Relationship Specialty Start Date End Date Marina Montague MD [address] [place] [address] PCP - General 01/14/10 12/15/11 documented as of this encounter
--- OUTSIDE RECORDS SUMMARY | 2024-02-21 13:28 | XMS_ITS | Encounter Summary ---
Author Organization [facility] [place] [address] Care Team Providers Care Incident Response Manager Name Role Phone Jeanna Smith APRN Primary Care Provider [phone] Reason for Referral * Surgical (Routine) - Closed Specialty Diagnoses / Procedures Referred By Contac t Referred To Contact Neurosurgery Diagnoses Cervical spondylosis with myelopathy Marquez Foley MD [facility] [place] [address] Jordan Wagner MD [facility] [place] [address] Referral ID Status Reason Start Date Expiration Date V isits Requested Visits Authorized [id number] Closed Consult, Test & Treat 12/16/2011 06/13/2012 1 1 Encounter Details Date Type Department Care Team (Late st Contact Info) Description 12/16/2011 9:45 AM EDT [place] [address] Marquez Foley MD [facility] [place] [address] Cervical spondylosis with myelopathy (Primary Dx); Cervical spondylosis Discharge Disposition: Home Social History Tobacco Use [...] documented in this encounter Progress Notes * Marquez Foley MD - 12/16/2011 10:17 AM EDT [facility] Neurology [facility] Note Patient ID: Shereen Vega [...] levels of methylmalonic acid, and laboratory tests thatDr. Kilpatrick had previously obtained. ?? A third [...] balance problem Social History Narrative Born in [place], grew up there and went to high school in [place], did not graduate, and her current , [...] bilaterally. Coordination: Intact finger to nose and [id number]. Gait examination: Ataxic gait. Unable to perform [...] evaluation. documented in this encounter Miscellaneous Notes * Assessment & Plan Note - Marquez Foley [...] PM EST Office Visit Hematology/Oncology at [address] [phone] Imer Baker MD [facility] [place] [address] MEDICAL ONCOLOGY [place], [place] [address] 03/01/2024 2:00 PM EST Infusion Hematology Oncology at [address] [phone] 03/23/2024 11:30 AM EST TH Visit (TeleHealth) [place] [phone] Tory Willard [facility] [place] [address] Scheduled Referrals Name Type Priority Associated Diagnoses Orde r Schedule Referral to Neurosurgery Outpatient Referral Routine Cervical spondylosis with myelopathy Ordered: 12/16/2011 documented as of this encounter Procedures Procedure Name Priority Date/Time Associated Diagnosis Comments METHYLMALONIC ACID, SERUM Routine 12/16/2011 11:11 AM EDT Cervical spondylosis with myelopathy HOMOCYSTEINE TOTAL, PLASMA Routine 12/16/2011 11:11 AM EDT Cervical spondylosis with myelopathy VITAMIN B12 Routine 12/16/2011 11:11 AM EDT Cervical spondylosis with myelopathy documented in this [...] is compared to the outside studies from [facility]. The cord itself is normal. [...] is compared to the outside studies from [facility]. The cord itself is normal. At the [...] encroachment. Marquez Foley MD IMG MRI ORDERABLES * Homocysteine Total, Plasma (12/16/2011 11:11 AM EDT) Homocystine 5 5 - 12 mcmol/L CERNER MILLENNIUM Comment:Reference Range appl ies to fasting specimens only. Blood specimen (specimen) 12/16/2011 11:11 AM EDT 12/16/2011 2:17 PM EDT Narrative Resulting Agency Comment Spec In Lab Marquez Foley MD CHEMISTRY ORDERABLES Performing Organization Address [facility] Co de Phone Number [facility] [employer] PharmaceuticalsPRESC[facility] CENTERIUM * Methylmalonic acid, serum (12/16/2011 11:11 AM EDT) Methylmalonic Acid (MAY) 0.11 <=0.40 nmol/mL CERNER MILLENNIUM Comment: Test Performed by: [facility] [place] [address] Principal Account Clerk: Elmo Espino III, M.D. Blood specimen (specimen) 12/16/2011 11:11 AM EDT 12/16/2011 1:18 PM EDT Narrative Resulting Agency Comment Spec In Lab Marquez Foley MD LAB SEND OUT ORDERAB LES Performing Organization Address [facility] Co de Phone Number [facility] * (ABNORMAL) Vitamin B12 (12/16/2011 11:11 AM EDT) Vitamin B12 >2000(H) 207 - 974 pg/mL CERNER MILLENNIUM Blood specimen (specimen) 12/16/2011 11:11 AM EDT 12/16/2011 11:24 AM EDT Narrative Resulting Agency Comment Spec In Lab Marquez Foley MD CHEMISTRY ORDERABLES Performing Organization Address [facility] Co de Phone Number [facility] VIANNEYPRESCOTT [facility] MEDICAL [email or web address].IO documented in this encounter Visit Diagnoses Diagnosis Cervical spondylosis with myelopathy- Primary Cervical spondylosis Cervical spondylosis without myelopathy Cervical spondylosis with myelopathy documented in this encounter Care Teams Incident Response Manager Relationship Specialty Start Date End Date Jeanna Smith APRN PCP - General 12/16/11 05/09/18 documented as of this encounter
--- OUTSIDE RECORDS SUMMARY | 2024-02-21 13:28 | XMS_ITS | Encounter Summary ---
Author Organization [facility] Address [facility] [place] [address] Care Team Providers Care Showcase Trimmer Name Role Phone Marina Montague MD Primary Care Provider [phone] Encounter Details Date Type Department Care Team (Late st Contact Info) Description 06/03/2011 Orders [place] [address] Marquez Foley MD [facility] [place] [address] Social History Tobacco Use Types Packs/Day Years [...] PM EST Office Visit Hematology/Oncology at [address] [phone] Imer Baker MD [facility] [place] [address] Heidi Cruz APRN [address] [place] [address] DR MEDICAL ONCOLOGY [place], [place] [phone] 03/01/2024 2:00 PM EST Infusion Hematology Oncology at [address] [phone] 03/23/2024 11:30 AM EST TH Visit (TeleHealth) [place] [address] Tory Willard APRN [facility] [place] [address] documented as of this encounter Procedures Procedure Name Priority Date/Time Associated Diagnosis Comments FILM LIBRARY STORAGE ONLY MR SPINE Routine 06/03/2011 1:24 PM EDT documented in this encounter Results * FILM LIBRARY- STORAGE ONLY MR SPINE (06/03/2011 1:24 PM EDT) 06/03/2011 1:24 PM EDT Narrative [facility] - 08/18/2013 1:35 AM EDT This is a non-reportable exam. Procedure Note Jcarlos Mo - 08/18/2013 This is a non-reportable exam. Marquez Foley MD G FILM LIBRARY ORD ERABLES [facility] [address] [facility] [place] [address] documented in this encounter Visit Diagnoses Not on filedocumented in this encounter Care Teams Showcase Trimmer Relationship Specialty Start Date End Date Marina Montague MD [address] [place] [address] PCP - General 01/14/10 12/15/11 documented as of this encounter
--- OUTSIDE RECORDS SUMMARY | 2024-02-21 13:28 | XMS_ITS | Encounter Summary ---
Author Organization [facility] Address [address] [place] [address] Care Team Providers Care Rn Document Improvement Name Role Phone Jeanna Smith NP Primary Care Provider [phone] Encounter Details Date Type Department Care Team (Late st Contact Info) Description 08/17/2011 Phlebotomy Only [facility] [address] [place] [address] Umbrella Frame Maker, Outpatient Psoriatic arthritis ([facility]) ([facility]); Encounter for long-term (current) use of other [...] Procedure Name Priority Date/Time Associated Diagnosis Comments SED RATE Routine 08/17/2011 13:52 EDT Psoriatic arthritis ([facility]) ([facility]) Encounter for long-term (current) use of other medications COMPLETE BLOOD COUNT AND DIFFERENTIAL Routine 08/17/2011 13:52 EDT Psoriatic arthritis ([facility]) ([facility]) Encounter for long-term (current) use of other medications C REACTIVE PROTEIN Routine 08/17/2011 13 :52 EDT Psoriatic arthritis ([facility]) ([facility]) Encounter for long-term (current) use of other medications COMPREHENSIVE METABOLIC PANEL (CMP) Routine 08/17/2011 13:52 EDT Psoriatic arthritis (CMS-HCC) ([facility]) Encounter for long-term (current) use of other medications documented in this encounter Results * C-REACTIVE PROTEIN (08/17/2011 13:52 EDT) Pathologist [facility] C-Reactive Protein <0.7 <1.0 mg/dl [facility] Blood specimen (specimen) 08/17/2011 13:52 EDT 08/17/2011 14:06 EDT us Jimmy Burleson MD CHEMISTRY & BLOOD GAS ORDERABLES Final Result Performing Organization Address [facility]/ZIP Co de Phone Number [facility] [address] [place] [address] * (ABNORMAL) SED. RATE:DEMARCUSREN (08/17/2011 13:52 EDT) [facility] Sed. Rate Westergren 32(H) 0 - 30 mm/hr [facility] Blood specimen (specimen) 08/17/2011 13:52 EDT 08/17/2011 14:06 EDT us Jimmy Burleson MD HEMATOLOGY & PF4 ORDERABLES Marita l Result Performing Organization Address City/[facility]/ZIP Co de Phone Number [facility] [address] [place] [address] * (ABNORMAL) COMPREHENSIVE METABOLIC PANEL (CMP) (08/17/2011 13:52 EDT) Pathologist [facility] Potassium 4.5 3.5 - 5.0 mEq/L [facility] Sodium 143 136 - 145 mEq/L [facility] Chloride 103 96 - 110 mEq/L [facility] CO2 26 24 - 32 mEq/L [facility] Total Alkaline Phosphatase 46 38 - 126 U/L [facility] Bilirubin, Total 0.6 0.2 - 1.3 mg/dl [facility] AST 26 15 - 46 U/L [facility] ALT 26 9 - 52 U/L [facility] Albumin 4.4 3.4 - 4.9 g/dl [facility] Total Protein 7.6 6.5 - 8.3 g/dl [facility] Creatinine 0.62 0.52 - 1.04 mg/dl [facility] GFR, Calculated >60 >60 ml/min/1.7 3m2 [facility] BUN 17 10 - 26 mg/dl [facility] Calcium 9.3 8.5 - 10.5 mg/dl [facility] Calculated Calcium 9.3 8.5 - 10.5 mg/dl [facility] Glucose, Serum 105(H) 70 - 100 mg/dl [facility] Fasting? NO [facility] Blood specimen (specimen) 08/17/2011 13:52 EDT 08/17/2011 14:06 EDT Jimmy Burleson MD CHEMISTRY & BLOOD GAS ORDERABLES Final Result [facility] [address] [place] [address] * (ABNORMAL) HEMAGRAM AND DIFFERENTIAL (08/17/2011 13:52 EDT) WBC 5.13 4.0 - 12.4 K/cmm [facility] RBC 3.65(L) 3.86 - 5.04 M/cmm [facility] Hemoglobin 11.2(L) 11.6 - 15.2 gm/dl [facility] HCT 33.2(L) 34.9 - 44.4 % [facility] MCV 91 81 - 98 fl [facility] MCH 30.6 26.7 - 33.3 pg [facility] MCHC 33.7 32.1 - 35.9 gm/dl [facility] PLT 126(L) 141 - 320 K/cmm [facility] RDW-CV 16.6(H) 11.7 - 14.6 % [facility] Neutrophils 53.0 45.5 - 79.7 % [facility] Lymphocytes 40.0 15.0 - 46.8 % [facility] Monocytes 1.0(L) 1.8 - 12.0 % [facility] Eosinophils 6.0 0.6 - 6.9 % [facility] ABS Neutrophils 2.72 2.20 - 8.85 K/cmm [facility] ABS Lymphs 2.05 1.09 - 3.30 K/cmm [facility] ABS Monocytes 0.05(L) 0.1 - 0.8 K/cmm [facility] ABS Eosinophils 0.31 0.03 - 0.61 K/cmm [facility] RBC Morphology 1+ [facility] Comment:Anisocytosis Type of Diff: Manual [facility] Blood specimen (specimen) 08/17/2011 13:52 EDT 08/17/2011 14:06 EDT us Jimmy Burleson MD PACKAGES & DNA PROBE ORDERABLES Final Result Performing Organization Address City/State/[facility] Co de Phone Number [facility] [address] [place] [address] documented in this encounter Visit Diagnoses Diagnosis Psoriatic arthritis ([facility]) Psoriatic arthropathy Encounter for long-term (current) use of other medications documented in this encounter Care Teams Rn Document Improvement Relationship Specialty Start Date End Date Jeanna Smith, [facility] [address] [place] [address] PCP - General 06/14/08 08/21/21 documented as of this encounter
--- OUTSIDE RECORDS SUMMARY | 2024-02-21 13:28 | XMS_ITS | Encounter Summary ---
Author Organization [facility] Address [address] [place] [address] Care Team Providers Care Vessel Scrapper Name Role Phone Jeanna Smith NP Primary Care Provider [phone] Reason for Visit * Reason Onset Date Comments Prior Auth, Medication 08/27/2011 Encounter Details Date Type Department Care Team (Late st Contact Info) Description 08/27/2011 Telephone [facility] Rheumatology & Immunology - [address] [phone] Jimmy Burleson Chi, MD [address] [facility], [address] [place] [address] Prior Auth, Medication Social History Tobacco Use Types Packs/Day Years [...] encounter Miscellaneous Notes * Telephone Encounter - Jeanna Nova - 08/27/2011 1317 EDT The patient has been re-authorized for Humira under her [employer] policy. This authorization is valid from 08/23/11-09/21/12. documented in this encounter Plan of Treatment Not on file documented as of this encounter Visit Diagnoses Not on filedocumented in this encounter Care Teams Vessel Scrapper Relationship Specialty Start Date End Date Jeanna Smith, [facility] [address] [place] [address] PCP - General 06/14/08 08/21/21 documented as of this encounter
--- OUTSIDE RECORDS SUMMARY | 2024-02-21 13:28 | XMS_ITS | Encounter Summary ---
Author Organization [facility] Address [address] [place] [address] Care Team Providers Care Melter Loader Name Role Phone Jeanna Smith ROVING WINDER Primary Care Provider [phone] Maricarmen Galvan ROVING WINDER Primary Care Provider [phone] Encounter Details Date Type Department Care Team (Late st Contact Info) Description 04/11/2020 Lab Requisition [facility] Pathology & Laboratory Medicine - [facility] [address] [place] [address] Outr Resulting Lab, Provider Social History Tobacco Use Types Packs/Day Years Used Date Smoking Tobacco: Never Assessed Comments No Sex and Gender Information Value Date Recorded Sex Assigned at Not on file Legal Sex Female 18:27 EST Gender Identity Not on file Sexual Orientation Not on file documented as of this encounter Plan of Treatment Not on file documented as of this encounter Procedures Procedure Name Priority Date/Time Associated Diagnosis Comments ZZCOVID-19 TEST [facility] PCR Today 04/11/2020 9:33 EST COVID-19 TESTING Routine 04/11/2020 9:33 EST documented in this encounter Results * COVID-19 TEST [facility] PCR (04/11/2020 9:33 EST) Swab ENTIRE NASOPHARYNX / Unknown 04/11/2020 9:33 EST 04/11/2020 20:13 EST us Provider Outr Resulting Lab MICROBIOLOGY - GENER AL ORDERABLES Final Result [facility] [address] [place] [address] * COVID-19 TESTING (04/11/2020 9:33 EST) COVID-19 rt-PCR Result Negative Negative 04/12/2020 15:25 EST [facility] Comment: This test was developed and its performance characteristics determined by [facility]. It has not been cleared or approved by the US Food and Drug Administration. FDA does not require this test to go through premarket FDA review. This test is used for clinical purposes. It should not be regarded as investigational or for research. This laboratory is certified under the Clinical Laboratory Improvement Amendments (CLIA) as qualified to perform high complexity clinical laboratory testing. This test is based on the [facility] COVID-19 Emergency Use Authorization (EUA) assay, with minor modification as defined by the FDA Performed on the [employer] 7 Pro RT-PCR System. This test has not been FDA cleared or approved. This test has been authorized by FDA under an EUA for use by authorized laboratories. This test has been authorized only for detection of nucleic acid from 2019-nCoV, not for any other viruses or pathogens. This test is only authorized for the duration of the declaration that circumstances exist justifying the authorization of emergency use of in vitro diagnostic tests for detection and/or diagnosis of 2019-nCoV under section 564(b)(1) of Act, 21 U.S.C ?? 360bbb-3(b) (1), unless the authorization is terminated or revoked sooner. Negative results do not preclude 2019-nCoV infection and should not be used as the sole basis for treatment or other patient management decisions. Negative results must be combined with clinical observations, patient history, and epidemiological information. Performing Lab [facility] Lab 04/12/2020 15:25 EST [facility] Swab 04/11/2020 9:33 EST 04/11/2020 20:13 EST us Provider Outr Resulting Lab MICROBIOLOGY - GENER AL ORDERABLES Final Result Performing Organization Address City/[facility]/ZIP Co de Phone Number [facility] [address] [place] [address] documented in this encounter Visit Diagnoses Not on filedocumented in this encounter Care Teams Melter Loader Relationship Specialty Start Date End Date Jeanna Smith NP [facility] [address] [place] [address] PCP - General 06/14/08 08/21/21 Maricarmen Galvan NP [address] [place] [id number] PCP - General 08/22/21 documented as of this encounter
--- OUTSIDE RECORDS SUMMARY | 2024-02-21 13:28 | XMS_ITS | Encounter Summary ---
Author Organization [facility] Address [address] [place] [address] Care Team Providers Care Customer Support Agent Name Role Phone Jeanna Smith RESIDENTIAL CASE MANAGER Primary Care Provider [phone] Maricarmen Galvan RESIDENTIAL CASE MANAGER Primary Care Provider [phone] Encounter Details Date Type Department Care Team (Late st Contact Info) Description 11/27/2020 Lab Requisition [facility] Pathology & Laboratory Medicine - [facility] [address] [place] [address] Outr Resulting Lab, Provider Social History Tobacco [...] Procedure Name Priority Date/Time Associated Diagnosis Comments CALCIUM, URINE 24HR Routine 11/27/2020 1 2:30 EDT documented in this encounter Results * (ABNORMAL) CALCIUM, URINE 24HR (11/27/2020 12:30 EDT) Calcium, Urine 24.6 See Note mg/dL 11/28/2020 9:01 EDT [facility] Comment: NOTE: Reference range not established Calcium, Urine 24 hr 98(L) 100 - 300 mg/24hrs 11/28/2020 9:01 EDT [facility] Comment:Reference range assu mes a normal daily intake of calcium between 600 - 800 mg/day. Urine Volume 400 mL 11/28/2020 9:01 EDT [facility] Urine Collection Period 24.0 Hours 11/28/2020 9:01 EDT [facility] Urine 24 HOUR URINE SPECIMEN / Unknown 11/27/2020 12:30 EDT 11/27/2020 21:27 EDT us Provider Outr Resulting Lab URINALYSIS ORDERABLE S Final Result [facility] [address] [place] [address] documented in this encounter Visit Diagnoses Not on filedocumented in this encounter Care Teams Customer Support Agent Relationship Specialty Start Date End Date Jeanna Smith NP [facility] [address] [place] [address] PCP - General 06/14/08 08/21/21 Maricarmen Galvan NP [address] [place] [address] PCP - General 08/22/21 documented as of this encounter
--- OUTSIDE RECORDS SUMMARY | 2024-02-21 13:28 | XMS_ITS | Encounter Summary ---
Author Organization [facility] [place] [address] Care Team Providers Care Appeals Officer Name Role Phone Marina Montague MD Primary Care Provider [phone] Reason for Referral * Physical Therapy (Routine) - Closed Specialty Diagnoses / Procedures Referred By Contac t Referred To Contact Physical Therapy Diagnoses Balance problem Marquez Foley MD [facility] [place] [address] [facility] [place] [address] Referral ID Status Reason Start Date Expiration Date V isits Requested Visits Authorized [id number] Closed Evaluate and Treat 08/12/2011 02/08/2012 1 1 Reason for Visit * Reason Comments Referral in neurological cons ultation for transient global ischemia, at the request of Dr. Rolo Kilpatrick M.D. 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 Possible examinations include the following: ?? Early stage or mild cervical stenosis, or narrowing of the canal spinal cord passes through the level of C2-C3. This is supported by some mild symptoms of hyperreflexia, that is increased reflexes. The exam however is not entirely consistent with that, and is not a definite explanation. ?? Another possibility is that you can have low vitamin B12 levels. This can also cause balance problems. It is important for us to followup and confirm the levels of methylmalonic acid, and laboratory tests that Dr. Kilpatrick had previously obtained. ?? A third possibility is that you could have an antibody that is causing problems, such as anti-gliadin antibodies, commonly seen in patients who have gluten sensitivity. There is a laboratory test as well, but I will hold off until we obtain the initial studies. ?? In addition, we should obtain evaluation by electrical studies of the spinal cord which I will order today. We will see whether we can do this today as well. documented in this encounter Progress Notes * Marquez Foley MD - 08/18/2011 5:00 PM EDTAddended by: MARQUEZ FOLEY on: 08/18/2011 Modules accepted: Level of Service * Marquez Foley MD - 08/12/2011 9:29 AM EDT CC: balance problems. The patient is a 61-year-old female with a six-month history of gradually progressive worsening balance problem of gradual onset. She has to lean against the ball in order to go up and down stairs. She fell once when she was getting up off of the couch and was unable to steady herself. She tends tofall to the left. When she gets up from a sitting position, she has to hold onto something to keep from falling. This is her greatest concern at this point. She has had episodes of vertigo in the past, but it was felt that this was not an inner ear problem. Review of Systems Constitutional: Negative. Eyes: Negative. Respiratory: Negative. Cardiovascular: Negative. Gastrointestinal: Negative. Genitourinary: Negative. Musculoskeletal: Negative. Neurological: Negative for dizziness, tingling, tremors, sensory change, speech change, focal weakness, seizures, loss of consciousness and headaches. Positive for balance difficulty. Endo/Heme/Allergies: Negative. Psychiatric/Behavioral: Negative for depression and memory loss. Past Medical History Diagnosis Date ??? Osteoporosis ??? Rheumatoid arthritis 2001 ??? Transient global amnesia ??? diabetes 2001 Past Surgical History Procedure Date ??? Appendectomy ??? Ovarian cyst surgery right removed ??? Tubal ligation History Social History ??? Marital Status: Spouse Name: N/A Number of Children: N/A ??? Years of Education: N/A Social History Main Topics ??? Smoking status: Never Smoker ??? Smokeless tobacco: Never Used ??? Alcohol Use: No ??? Drug Use: No ??? Sexually Active: Deferred Other Topics Concern ??? Exercise Yes cannot because of her balance problem Social History Narrative Born in [place], grew up there and went to high school in [place], did not graduate, and her current , 43 years ago. And have three children. She stayed at home to raise her children. No family history on file. Family Status [...] Son 39 ??? Grandchild 2 years old Allergies Allergen Reactions ??? Quinine ??? Penicillins ??? Erythromycin Base Current outpatient prescriptions Medication Sig Dispense Refill ??? PARoxetine (PAXIL) 40 mg tablet Take 40 mg by mouth every morning. ??? atenolol (TENORMIN) 25 mg tablet Take 25 mg by mouth daily. ??? ADALIMUMAB (HUMIRA PEN SUBQ) Inject 40 mg subcutaneously every 14 days. ??? ranitidine (ZANTAC) 150 mg capsule Take 150 mg by mouth 2 times daily. ??? gabapentin (NEURONTIN) 300 mg capsule Take 300 mg by mouth 2 times daily. ??? leveTIRAcetam (KEPPRA) 500 mg tablet Take 250 mg by mouth 2 times daily. ??? glipiZIDE (GLUCOTROL) 5 mg tablet Take 5 mg by mouth daily. ??? celecoxib (CELEBREX) 100 mg capsule Take 100 mg by mouth daily. ??? aspirin 81 mg EC tablet Take 81 mg by mouth daily. ??? levothyroxine (SYNTHROID) 112 mcg tablet Take 112 mcg by mouth daily. ??? lovastatin (MEVACOR) 40 mg tablet Take 40 mg by mouth nightly. ??? metFORMIN (GLUCOPHAGE) 500 mg tablet Take 1,000 mg by mouth 2 times daily (with meals). ??? METHOTREXATE SODIUM, PF, INJ Inject as directed. Physical Exam Gen. Examination: Healthy-appearing, well-nourished, pleasant, in no distress. Head is normocephalic and atraumatic. Eyes are anicteric Extremities are without edema. Back and spine: Normal Without loss of range of motion, Neurological examination: Mental status: Intelligent and conversant. No scanning speech. Short-term memory appears to be intact. termination clerk memory is intact. Cranial nerves: Intact extraocular movements without nystagmus. Visual mendiola are full to confrontation. Discs are sharp on funduscopy. Trigeminal sensation is intact. Facial motor strength is normal. Palate elevates midline. Shoulder shrug is symmetric. Tongue is midline without fasciculations or deviation Motor examination: Decreased tone throughout. Normal muscle mass. No focal weakness. Sensory examination: Intact to light touch, pinprick, proprioception, vibratory sensation. Deep tendon reflexes: 3+ in the patella, ankles, equivocal toes bilaterally. 2+ biceps and triceps. Coordination: Mild terminal tremor on finger to nose. She has a wide-based gait. Unable to tandem: Romberg is negative although there is significant swaying. Data and imaging: she had an MRI of the brain and cervical spine. The cervical spine showed cervical spondylosis at the level of C2-C3, which by report shows no cord signal abnormality. She did have a borderline level of vitamin B12 at 263 in February, and further evaluation with a serum homocystineand methylmalonic acid showed an elevated level Impression: Problem List as of 08/12/2011 Balance problem Last Visit Note 08/12/2011 Office Visit Signed Janessa Aug 13, 2011 7:30 AM by Marquez Foley [...] we can do this today as well. documented in this encounter Miscellaneous Notes * Assessment & Plan Note - Marquez Foley MD - 08/18/2011 4:51 PM EDTAssociated Problem(s): Cervical spondylosis My greatest concern is that this is cervical spondylosis with early signs of myelopathy. Recommend obtaining somatosensory evoked potentials in other neurophysiologic studies to characterize the conduction along the spinal cord. * Assessment & Plan Note - Marquez Foley MD - 08/13/2011 7:30 AM EDTAssociated Problem(s): Balance problem This is a 61-year-old female with recent [...] we can do this today as well. documented in this encounter Plan of Treatment Upcoming Encounters Date Type Department Care Team (Late st Contact Info) Description 03/01/2024 1:30 PM EST Office Visit Hematology/Oncology at [address] [phone] Imer Baker MD [facility] DR [place] [address] Heidi Cruz ALIGNING INSPECTOR [address] [place] [address] [place] [address] 03/01/2024 2:00 PM EST Infusion Hematology Oncology at [address] [phone] 03/23/2024 11:30 AM EST TH Visit (TeleHealth) [place] [address] [address] [facility] [place] [address] Scheduled Referrals Name Type Priority Associated Diagnoses Orde r Schedule REFERRAL TO PHYSICAL THERAPY Outpatient Referral Routine Balance problem Ordered: 08/12/2011 documented as of this encounter Results * SOMATOSENSORY EVOKED POTENTIALS - LOWER LIMBS (08/19/2011 4:05 PM EDT) Narrative Marina Reagan MD - 08/19/2011 4:05 PM EDT ? 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
--- OUTSIDE RECORDS SUMMARY | 2024-02-21 13:28 | XMS_ITS | Encounter Summary ---
Author Organization [facility] [place] [address] Care Team Providers Care Getter Welder Name Role Phone SarahJeanna Letty PATEL Primary Care Provider [phone] Reason for Visit * Reason Comments Low Back Pain follow up to imaging Encounter Details Date Type Department Care Team (Late st Contact Info) Description 03/07/2012 2:00 PM EST Follow-[place] [phone] Jordan Wagner MD [facility] [place] [address] Spondylosis (Primary Dx) Discharge Disposition: Home Social [...] this encounter Patient Instructions * Patient Instructions* Kindra Lancaster, ECLECTIC DOCTOR - 03/07/2012 1:55 PM EST Welcome to [employer], your secure online access to your electronic medical record at [facility]. Using [employer] you will be able to send messages to your providers, view your test results, renew prescriptions, schedule appointments, and much more. Follow these instructions to enter your personal [employer] account for the first time: 1. Start your internet browser and type [email or web address] into the address bar. 2. In the New User box on the right-hand side of the Welcome page click the link that states, ???I have an activation code.?? 3. On the Identification page, follow these steps: a) Enter your [employer] activation code: [email or web address] b) Expires: 04/21/2012 1:55 PM IMPORTANT: This [...] long, and that contains at least two numbers.Your password can be changed at any time. [...] or your Access Code, please call for [place], for [place] or for [place]. If you need technical support, please e-mail [email or web address]. Remember, [employer] is NOT for urgent needs! Always dial 911 for medical emergencies. documented in this encounter Progress Notes * Jordan Wagner MD - 03/07/2012 4:20 PM [...] to do. I will arrange that for [facility] and I will see her back. documented in this encounter Plan of Treatment Upcoming Encounters Date Type Department Care Team (Late st Contact Info) Description 03/01/2024 1:30 PM EST Office Visit Hematology/Oncology at [address] [phone] Imer Baker MD [facility] [address] [place] [address] Heidi Cruz APRN [address] [place] [address] [place] [address] 03/01/2024 2:00 PM EST Infusion Hematology Oncology at [address] [phone] 03/23/2024 11:30 AM EST TH Visit (TeleHealth) [place] [address] Tory Willard APRN [facility] [place] [address] documented as of this encounter Visit Diagnoses Diagnosis Spondylosis- Primary Spondylosis of unspecified site without mention of myelopathy documented in this encounter Care Teams Getter Welder Relationship Specialty Start Date End Date Jeanna Smith APRN PCP - General 12/16/11 05/09/18 documented as of this encounter
--- OUTSIDE RECORDS SUMMARY | 2024-02-21 13:28 | XMS_ITS | Encounter Summary ---
Author Organization [facility] Address [address] [place] [address] Care Team Providers Care Blow Molder Name Role Phone Jeanna Smith NP Primary Care Provider [phone] Encounter Details Date Type Department Care Team (Late st Contact Info) Description 02/06/2011 Phlebotomy Only [address] [address] Computer Science Professor, Outpatient Weight loss; Nausea; Abdominal pain, unspecified site; Diabetes mellitus (CMS-HCC) ([facility]); Psoriatic arthritis ([facility]) ([facility]); Encounter for long-term (current) use of other [...] Procedure Name Priority Date/Time Associated Diagnosis Comments TISSUE TRANSGLUTAMINASE ANTIBODY, IGA Routine 02/06/2011 15:35 EST Weight loss COMPLETE BLOOD COUNT AND DIFFERENTIAL Routine 02/06/2011 15:35 EST Weight loss Nausea Abdominal pain, unspecified site HEMOGLOBIN A1C Routine 02/06/2011 15:35 EST Diabetes mellitus (CMS-HCC) ([facility]) COMPREHENSIVE METABOLIC PANEL (CMP) Routine 02/06/2011 15:35 EST Nausea Abdominal pain, unspecified site documented in this encounter Results * HEMOGLOBIN A1C (02/06/2011 15:35 EST) Hemoglobin A1C 6.5 % [facility] Comment: Reference Range: <5.7% Normal 5.7-6.4% Increased risk for diabetes =>6.5% Diagnostic for diabetes (if confirmed) The A1c goal for non adults in general is <7%. The A1c goal for selected patients may be significantly lower than 7% if this can be achieved without significant hypoglycemia or other adverse effects of treatment. Est Avg Glucose 140 mg/dl [facility] Comment: eAG represents the A1c result expressed as average glucose in mg/dl. Blood specimen (specimen) 02/06/2011 15:35 EST 02/06/2011 15:41 EST Sridhar Foley MD CHEMISTRY & BLOOD GAS ORDERABLES Final Result Performing Organization Address [facility] de Phone Number [facility] [address] [place] [address] * TTG AB, IGA, S (02/06/2011 15:35 EST) Pathologist [facility] tTG Ab, IgA, S <1.2 <4.0 (Negative) U/mL [facility] Comment: Performed or Referred by: [facility] Dpt of Lab Med and Path, [address] [place] [address], Lab Dir: Elmo Espino III, MD Blood specimen (specimen) 02/06/2011 15:35 EST 02/06/2011 15:41 EST us Sridhar Foley MD IMMUNOLOGY AND SEROLOGY ORDERABL ES Final Result Performing Organization Address [facility] Co de Phone Number [facility] [address] [place] [address] * COMPREHENSIVE METABOLIC PANEL (CMP) (02/06/2011 15:35 EST) Pathologist [facility] Potassium 4.0 3.5 - 5.0 mEq/L [facility] Sodium 141 136 - 145 mEq/L [facility] Chloride 104 96 - 110 mEq/L [facility] CO2 27 24 - 32 mEq/L [facility] Total Alkaline Phosphatase 53 38 - 126 U/L [facility] Bilirubin, Total 0.7 0.2 - 1.3 mg/dl [facility] AST 26 15 - 46 U/L [facility] ALT 25 9 - 52 U/L [facility] Albumin 4.4 3.4 - 4.9 g/dl [facility] Total Protein 8.2 6.5 - 8.3 g/dl [facility] Creatinine 0.70 0.7 - 1.5 mg/dl [facility] GFR, Calculated >60 >60 ml/min/1.7 3m2 [facility] BUN 14 10 - 26 mg/dl [facility] Calcium 9.5 8.5 - 10.5 mg/dl [facility] Calculated Calcium 9.5 8.5 - 10.5 mg/dl [facility] Glucose, Serum 84 70 - 100 mg/dl [facility] Fasting? No [facility] Blood specimen (specimen) 02/06/2011 15:35 EST 02/06/2011 15:41 EST Sridhar Foley MD CHEMISTRY & BLOOD GAS ORDERABLES Final Result [facility] [address] [place] [address] * (ABNORMAL) HEMAGRAM AND DIFFERENTIAL (02/06/2011 15:35 EST) WBC 6.39 4.0 - 12.4 K/cmm [facility] RBC 3.78(L) 3.86 - 5.04 M/cmm [facility] Hemoglobin 12.4 11.6 - 15.2 gm/dl [facility] HCT 36.1 34.9 - 44.4 % [facility] MCV 95 81 - 98 fl [facility] MCH 32.7 26.7 - 33.3 pg [facility] MCHC 34.3 32.1 - 35.9 gm/dl [facility] PLT 140(L) 141 - 320 K/cmm [facility] RDW-CV 14.1 11.7 - 14.6 % [facility] % Neutrophils 42.2(L) 45.5 - 79.7 % [facility] % Lymphocytes 36.5 15.0 - 46.8 % [facility] % Monocytes 9.2 1.8 - 12.0 % [facility] % Eosinophils 11.4(H) 0.6 - 6.9 % [facility] % Basophils 0.7 0.2 - 1.4 % [facility] ABS Neutrophils 2.70 2.20 - 8.85 K/cmm [facility] ABS Lymphs 2.33 1.09 - 3.30 K/cmm [facility] ABS Monocytes 0.59 0.1 - 0.8 K/cmm [facility] ABS Eosinophils 0.73(H) 0.03 - 0.61 K/cmm [facility] ABS Basophils 0.05 0.01 - 0.11 K/cmm [facility] Type of Diff: Automated [facility] Blood specimen (specimen) 02/06/2011 15:35 EST 02/06/2011 15:41 EST Sridhar Foley MD PACKAGES & DNA PROBE ORDERABLES Final Result [facility] [address] [place] [address] documented in this encounter Visit Diagnoses Diagnosis Weight loss Loss of weight Nausea Nausea alone Abdominal pain, unspecified site Diabetes mellitus ([facility]) Type II or unspecified type diabetes mellitus without mention of complication, not stated as uncontrolled Psoriatic arthritis ([facility]) Psoriatic arthropathy Encounter for long-term (current) use of other medications documented in this encounter Care Teams Blow Molder Relationship Specialty Start Date End Date Jeanna Smith NP [facility] [address] [place] [address] PCP - General 06/14/08 08/21/21 documented as of this encounter
--- OUTSIDE RECORDS SUMMARY | 2024-02-21 13:28 | XMS_ITS | Encounter Summary ---
Author Organization [facility] Address [address] [place] [address] Care Team Providers Care Classroom Instructional Aide Name Role Phone Jeanna Smith PROBATION AGENT Primary Care Provider [phone] Maricarmen Galvan PROBATION AGENT Primary Care Provider [phone] Encounter Details Date Type Department Care Team (Late st Contact Info) Description 11/21/2020 Lab Requisition [facility] Pathology & Laboratory Medicine - [facility] [address] [place] [address] Outr Resulting Lab, Provider Social History Tobacco [...] Procedure Name Priority Date/Time Associated Diagnosis Comments THYROPEROXIDASE ANTIBODY Routine 11/21/2020 11:38 EDT PTH INTACT Routine 11/21/2020 11:38 EDT ANTI THYROGLOBULIN Routine 11/21/2020 11 :38 EDT documented in this encounter Results * THYROPEROXIDASE ANTIBODY (11/21/2020 11:38 EDT) Thyroperoxidase Ab 57 <=60 U/mL 2020 22:10 EDT [facility] Blood VENOUS BLOOD / Unknown 11/21/2020 11:38 EDT 11/21/2020 21:32 EDT us Provider Outr Resulting Lab CHEMISTRY & BLOOD GA S ORDERABLES Final Result Performing Organization Address City/[facility]/ZIP Co de Phone Number [facility] [address] [place] [address] * ANTI THYROGLOBULIN (11/21/2020 11:38 EDT) Anti-Thyroglob ulin <15 <=60 U/mL 11/21/2020 22:11 EDT [facility] Blood VENOUS BLOOD / Unknown 11/21/2020 11:38 EDT 11/21/2020 21:32 EDT us Provider Outr Resulting Lab CHEMISTRY & BLOOD GA S ORDERABLES Final Result Performing Organization Address City/[facility]/ZIP Co de Phone Number [facility] [address] [place] [address] * PTH INTACT (11/21/2020 11:38 EDT) Intact PTH 21 19 - 88 pg/mL 11/22/2020 10:21 EDT [facility] Blood VENOUS BLOOD / Unknown 11/21/2020 11:38 EDT 11/21/2020 21:32 EDT us Provider Outr Resulting Lab CHEMISTRY & BLOOD GA S ORDERABLES Final Result Performing Organization Address City/[facility]/ZIP Co de Phone Number [facility] [address] [place] [address] documented in this encounter Visit Diagnoses Not on filedocumented in this encounter Care Teams Classroom Instructional Aide Relationship Specialty Start Date End Date Jeanna Smith NP [facility] [address] [place] [address] PCP - General 06/14/08 08/21/21 Maricarmen Galvan NP [address] [place] [id number] PCP - General 08/22/21 documented as of this encounter
--- OUTSIDE RECORDS SUMMARY | 2024-02-21 13:29 | XMS_ITS | Encounter Summary ---
Author Organization [facility] Address [address] [place] [address] Care Team Providers Care Siebel Solution Architect Name Role Phone Jeanna Smith NP Primary Care Provider [phone] Reason for Visit * Reason Comments Joint Pain here for follow up Encounter Details Date Type Department Care Team ([facility] st Contact Info) Description 09/17/2010 10:00 EDT [facility] Rheumatology & Immunology - [address] [phone] Jimmy Burleson Chi, MD [address] [facility], [address] [place] [address] Psoriatic arthritis ([facility]) ([facility]); Psoriasis; Osteoarthritis cervical spine; Plantar fasciitis; Encounter for long-term (current) use of other [...] kg (110 lb 6.4 oz) 09/17/2010 1005 E DT Height 156.9 cm (5' 1.77) 09/17/2010 1005 EDT Body Mass Index 20.34 09/17/2010 1005 EDT documented in this encounter Progress Notes * Jimmy Burleson Chi, MD - 09/17/2010 1020 EDT Images from the original note were not included. Subjective: Patient ID: Shereen Vega is an 60 y.o. female. Chief Complaint Patient presents with ??? Joint Pain here for follow up HPI Comments: Has lost 10 lbs over 5 months, attributed to increased physical activity. Has chronicpoor appetite; denies eating less than usual. 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 Joints stiffen with immobility, so the cleaningjob helps her jt pains. Has increased bilat hand numbness. Had ncv on hands and feet 1 yr ago- not sure what this showed. On humira q 14 days and feels the humira is helping arthritis more than Enbrel did; has less stiffness; can't tell if humira has helped jt swelling. Joint pains are less severe;L knee and hands bother the most. Chronic low back pain; assoc with gas. Neck is always sore. Feet are painful on bottoms if she stands too long [...] this encounter Visit Diagnoses Diagnosis Psoriatic arthritis ([facility]) Psoriatic arthropathy Psoriasis Other psoriasis Osteoarthritis cervical spine Cervical spondylosis without myelopathy Plantar fasciitis Plantar fascial fibromatosis Encounter for long-term (current) use of other medications documented in this encounter Discontinued Medications Medication Sig Discontinue Reason Start Date End Da te levothyroxine (SYNTHROID) 100 mcg tablet Take 100 mcg by mouth daily. Dose adjustment 09/17/2010 metformin (GLUCOPHAGE) 850 mg tablet Take 850 mg by mouth 2 times daily. Dose adjustment 09/17/2010 methotrexate 2.5 mg tabletIndications:Psoriat ic arthritis ([facility]),Psoriasis Take 3 Tabs by mouth once a week. Dose adjustment 04/07/2010 09/17/2010 documented as of this encounter Historical Medications * This list may reflect changes made after this encounter. DOCUSATE CALCIUM (STOOL SOFTENER ORAL) Take by mouth daily. 09/17/2010 metformin (GLUCOPHAGE) 1,000 mg tablet Take 1,000 mg by mouth 2 times daily. 09/17/2010 levothyroxine (SYNTHROID) 75 mcg tablet Take 75 mcg by mouth daily. methotrexate 2.5 mg tablet Take 5 mg by mouth once a week. 2 tabs 09/17/2010 11/05/2010 added in this encounter Care Teams Siebel Solution Architect Relationship Specialty Start Date End Date Jeanna Smith NP [facility] [address] [place] [address] PCP - General 06/14/08 08/21/21 documented as of this encounter
--- OUTSIDE RECORDS SUMMARY | 2024-02-21 13:29 | XMS_ITS | Encounter Summary ---
Author Organization [facility] Address [address] [place] [address] Care Team Providers Care Animal Therapist Name Role Phone Jeanna Smith NP Primary Care Provider Reason for Visit * Reason Comments New Patient Visit Weight loss/constipa tion Encounter Details Date Type Department Care Team (Latest Contact Info) Description 02/06/2011 14:30 EST Office Visit [facility] Gastroenterology - [address] [address] Sridhar Foley MD Diabetes mellitus ([facility]) ([facility]); Weight loss; Nausea; Dyspepsia; Abdominal pain, unspecified site Social History Tobacco Use Types [...] Sign Reading Time Taken Comments Blood Pressure 116/69 02/06/2011 1433 EST Pulse 74 02/06/2011 1433 EST Temperature - - Respiratory Rate - - Oxygen Saturation - - Inhaled Oxygen Concentration - - Weight 52.5 kg (115 lb 12.8 oz) 02/06/2011 1429 EST Height 154.9 cm (5' 1) 02/06/2011 1429 EST Body Mass Index 21.88 02/06/2011 1429 EST documented in this encounter Progress Notes * Sridhar Foley MD - 02/06/2011 1433 EST Subjective: Patient ID: Shereen Vega is an 60 y.o. female. Chief Complaint Patient presents with ??? New Patient Visit Weight loss/constipation HPI Thank you for allowing me to consult on Shereen Vega for evaluation of weight loss and gas pain x 1 year. After every meal, she starts to feel nauseous approximately 5-10 minutes later, has a sharp left sided abdominal pain that is very transient, as well as left sided abdominal pain/soreness.She then has a BM 20 minutes later and feels better. She does strain to go to the bathroom. She typically will go to the bathroom 4-5x per day. She does feel completely evacuated and feels hungry afterwords. It does not matter what she eats and even liquids will cause symptoms. No blood or black stools. She does take Ranitidine 150 mg bid since October which helped a little. She lost approximately 5# x 2-3 months. Appetite low but stable. Occasionally does have dysphagia especially with her pills. She tried to undergo a colonoscopy before but couldn't tolerate the bowel prep. She has never had an EGD before. Diabetes diagnosed ~10 years ago but does not know last Hgb A1c. Her sugars are poorly controlled and can go up to 300s. Patient Active Problem List Diagnoses ??? Psoriatic arthritis ??? Psoriasis ??? Osteoarthritis cervical spine ??? Hypercholesterolemia ??? Hypothyroidism ??? Diabetes mellitus ??? Helicobacter pylori (H. pylori) ??? Depression ??? Osteopenia Past Medical History Diagnosis Date ??? Plantar fasciitis bilateral ??? Thrombocytopenia 03/18/2009 Quinine-induced thrombocytopenia in 07/2002 Past Surgical History Procedure Date ??? Appendectomy ??? Ovary removal Right Family History Problem Relation Age of Onset ??? Arthritis ??? Arthritis-Osteo Father ??? Osteoporosis ??? Diabetes ??? Heart Disease Social History Substance Use Topics ??? Smoking status: Never Smoker ??? Smokeless tobacco: Never Used ??? Alcohol Use: No Current Outpatient Prescriptions on File Prior to Visit Medication Sig Dispense Refill ??? celecoxib (CELEBREX) 100 mg capsule Take 1 Cap by mouth 2 times daily. 60 Cap 5 ??? adalimumab (HUMIRA PEN) 40 mg/0.8 mL PnKt Inject 0.8 mL into the skin every 14 days. Every two weeks. 6 Pen 3 ??? methotrexate 2.5 mg tablet Take 2 Tabs by mouth once a week. 24 Tab 3 ??? levothyroxine (SYNTHROID) 75 mcg tablet [...] tablet Take 1 Tab by mouth daily. Allergies Allergen Reactions ??? Quinine Other (See Comments) ??? Erythromycin Upset stomach ??? Penicillins Hives Review of Systems Constitutional: Positive for weight loss. Negative for fever and chills. Eyes: Negative for blurred vision. Respiratory: Negative for cough and shortness of breath. Cardiovascular: Negative for chest pain. Gastrointestinal: Positive for nausea and abdominal pain. Negative for heartburn, vomiting, diarrhea, constipation, blood in stool and melena. Genitourinary: Negative for urgency. Musculoskeletal: Positive for joint pain (Rheumatoid arthritis). Skin: Positive for rash (psoriasis). Neurological: Positive for dizziness and headaches. - See HPI Objective: BP 116/69 Pulse 74 Ht 154.9 cm (61) Wt 52.527 kg (115 lb 12.8 oz) BMI 21.88 kg/m2 Physical Exam Constitutional: She is oriented to person, place, and time. She appears well- developed and well-nourished. HENT: Mouth/Throat: Oropharynx is clear and moist. No oropharyngeal exudate. Eyes: EOM are normal. No scleral icterus. Neck: Neck supple. No thyromegaly present. Cardiovascular: Normal rate, regular rhythm and normal heart sounds. Pulmonary/Chest: No respiratory distress. She has no wheezes. She has no rales. Abdominal: Soft. Bowel sounds are normal. She exhibits no distension and no mass. There is no tenderness. There is no rebound and no guarding. Musculoskeletal: She exhibits no edema and no tenderness. Lymphadenopathy: She has no cervical adenopathy. Neurological: She is alert and oriented to person, place, and time. Skin: Skin is warm and dry. No rash noted. No erythema. Assessment: Abdominal pain: Most bothersome symptom is abdominal pain after meals. She does have warning signs including weight loss and she is over age 50 so will start with colonoscopy. She had difficulty withbowel prep previously so will try Miralax prep instead. I also recommended EGD at the same time to evaluate her dysphagia as well. If this is negative and she is still losing weight, would likely consider CT scan and/or GES. I did discuss the importance of glucose control if this is related to her diabetes as well as lifestyle modifications including small, frequent meals and avoiding too much fiber in her diet. I will have her return to the office in 3 months and prn. Plan: Shereen was seen today for new patient visit. Diagnoses and associated orders for this visit: Diabetes mellitus - Hemoglobin A1c; Future Weight loss - Hemagram & Differential; Future - TTG Ab, IgA, S; Future - Upper Endoscopy - Colonoscopy Nausea - Hemagram & Differential; Future - Comprehensive Metabolic Panel (CMP); Future - Upper Endoscopy Dyspepsia - Upper Endoscopy Abdominal pain, unspecified site - Hemagram & Differential; Future - Comprehensive Metabolic Panel (CMP); Future - Colonoscopy I spent a total of 40 minutes in face to face time with this patient and 30 minutes of that time was spent in counseling and coordination of care as described in the progress note. Sridhar Foley MD documented in this encounter Plan of Treatment Scheduled Orders Name Type Priority Associated Diagnoses Orde r Schedule UPPER ENDOSCOPY GI Routine Weight loss Nausea Dyspepsia Ordered: 02/06/2011 COLONOSCOPY GI Routine Weight loss Abdominal pain, unspecified site Ordered: 02/06/2011 documented as of this encounter Results * HEMOGLOBIN A1C (02/06/2011 [...] GAS ORDERABLES Final Result Performing Organization Address [facility] de Phone Number [facility] [address] [place] [address] * TTG AB, IGA, S (02/06/2011 15:35 EST) tTG Ab, IgA, S <1.2 <4.0 (Negative) U/mL [facility] Comment: Performed or Referred by: [facility] Dpt of Lab Med and Path, [address] [place] [address], Lab Dir: Elmo Espino III, MD Blood specimen (specimen) 02/06/2011 15:35 EST 02/06/2011 15:41 EST Sridhar Foley MD IMMUNOLOGY AND SEROLOGY ORDERABL ES Final Result Performing Organization Address [facility] de Phone Number [facility] [address] [place] [address] * COMPREHENSIVE METABOLIC PANEL (CMP) (02/06/2011 15:35 EST) Potassium 4.0 3.5 - 5.0 mEq/L [facility] Sodium 141 136 - 145 mEq/L [facility] Chloride 104 96 - 110 mEq/L [facility] CO2 27 24 - 32 mEq/L [facility] Total Alkaline Phosphatase 53 38 - 126 U/L [facility] Bilirubin, Total 0.7 0.2 - 1.3 mg/dl [facility] AST 26 15 - 46 U/L [facility] ALT 25 9 - 52 U/L [facility] Albumin 4.4 3.4 - 4.9 g/dl [facility] Total Protein 8.2 6.5 - 8.3 g/dl [facility] Creatinine 0.70 0.7 - 1.5 mg/dl [facility] GFR, Calculated >60 >60 ml/min/1.7 3m2 [facility] BUN 14 10 - 26 mg/dl [facility] Calcium 9.5 8.5 - 10.5 mg/dl [facility] Calculated Calcium 9.5 8.5 - 10.5 mg/dl [facility] Glucose, Serum 84 70 - 100 mg/dl [facility] Fasting? No [facility] Blood specimen (specimen) 02/06/2011 15:35 EST 02/06/2011 15:41 EST Sridhar Foley MD CHEMISTRY & BLOOD GAS ORDERABLES Final Result [facility] [address] [place] [address] * (ABNORMAL) HEMAGRAM AND DIFFERENTIAL (02/06/2011 15:35 EST) WBC 6.39 4.0 - 12.4 K/cmm [facility] RBC 3.78(L) 3.86 - 5.04 M/cmm [facility] Hemoglobin 12.4 11.6 - 15.2 gm/dl [facility] HCT 36.1 34.9 - 44.4 % [facility] MCV 95 81 - 98 fl [facility] MCH 32.7 26.7 - 33.3 pg [facility] MCHC 34.3 32.1 - 35.9 gm/dl [facility] PLT 140(L) 141 - 320 K/cmm [facility] RDW-CV 14.1 11.7 - 14.6 % [...] 02/06/2011 15:41 EST us Sridhar Foley MD PACKAGES & DNA PROBE ORDERABLES Final Result [facility] [address] [place] [address] documented in this encounter Visit Diagnoses Diagnosis Diabetes mellitus ([facility]) Type II or unspecified type diabetes mellitus without mention of complication, not stated as uncontrolled Weight loss Loss of weight Nausea Nausea alone Dyspepsia Dyspepsia and other specified disorders of function of stomach Abdominal pain, unspecified site documented in this encounter Care Teams Animal Therapist Relationship Specialty Start Date End Date Jeanna Smith NP [facility] [address] [place] [address] PCP - General 06/14/08 08/21/21 documented as of this encounter
--- OUTSIDE RECORDS SUMMARY | 2024-02-21 13:29 | XMS_ITS | Encounter Summary ---
Author Organization [facility] Address [address] [place] [address] Care Team Providers Care Box Packer Name Role Phone Jeanna Smith NP Primary Care Provider [phone] Encounter Details Date Type Department Care Team (Late st Contact Info) Description 06/18/2008 11:30 EDT - 06/18/2008 12:39 EDT Hospital Encounter [facility] Rheumatology & Immunology - [facility] [address] [place], [place] [address] Jimmy Burleson Chi, MD [address] [facility], [address] [place] [address] Discharge Disposition: Home or Self Care Social History Tobacco Use Types Packs/Day Years Used Date Smoking Tobacco: Never Assessed Comments Unknown Sex and Gender Information Value Date Recorded Sex Assigned at Not on file Legal Sex Female 18:27 EST Gender Identity Not on file Sexual Orientation Not on file documented as of this encounter Discharge Disposition Disposition Code Departure Means Destination Home or Self Shelter documented in this encounter Plan of Treatment Not on file documented as of this encounter Visit Diagnoses Not on filedocumented in this encounter Care Teams Box Packer Relationship Specialty Start Date End Date Jeanna Smith NP [facility] [address] [place] [address] PCP - General 06/14/08 08/21/21 documented as of this encounter
--- OUTSIDE RECORDS SUMMARY | 2024-02-21 13:29 | XMS_ITS | Encounter Summary ---
Author Organization [facility] Address [address] [place] [address] Care Team Providers Care Perforator Loader Name Role Phone Jeanna Smtih NP Primary Care Provider Reason for Visit * Reason Onset Date Comments Medications Refill 02/03/2011 Encounter Details Date Type Department Care Team (Late st Contact Info) Description 02/03/2011 Refill [facility] Rheumatology & Immunology - [address] [id number] Jimmy Burleson Chi, MD [address] [place] [address], [address] [place] [address] Medications Refill Social History Tobacco [...] mouth 2 times daily. 60 Cap 5 02/03/2011 08/17/2011 documented in this encounter Plan of Treatment Not on file documented as of this encounter Visit Diagnoses Diagnosis Psoriatic arthritis (HCC-CMS) Psoriatic arthropathy Osteoarthritis cervical spine Cervical spondylosis without myelopathy documented in this encounter Discontinued Medications Medication Sig Discontinue Reason Start Date End Da te celecoxib (CELEBREX) 100 mg capsuleIndications:Psoria tic arthritis (HCC-CMS),Osteoarthritis cervical spine Take 1 Cap by mouth 2 times daily. Reorder 04/07/2010 02/03/2011 documented as of this encounter Care Teams Perforator Loader Relationship Specialty Start Date End Date Jeanna Smith NP [facility] [address] [place] [address] PCP - General 06/14/08 08/21/21 documented as of this encounter
--- OUTSIDE RECORDS SUMMARY | 2024-02-21 13:29 | XMS_ITS | Encounter Summary ---
Author Organization [facility] Address [address] [place] [address] Care Team Providers Care Chemistry Teacher Name Role Phone Jeanna Smith NP Primary Care Provider [phone] Encounter Details Date Type Department Care Team (Late st Contact Info) Description 10/22/2008 14:17 EDT Hospital Encounter [address] [address] Jimmy Burleson Chi, MD [address] [facility], [address] 5 [place] [phone] Discharge Disposition: Auto Discharge Social History Tobacco Use Types Packs/Day Years [...] Home documented in this encounter Progress Notes * Jimmy Burleson Chi, MD - 10/22/2008 0000 EDT DIVISION OF RHEUMATOLOGY PROGRESS/FOLLOWUP NOTE - 10/22/2008 PROBLEM Psoriatic arthritis/psoriasis. CHIEF COMPLAINT Here for followup, severe right foot pain due to fractures. HISTORY OF PRESENT ILLNESS The patient was visiting friends in [place] and fell down their spiral stairs several [...] she fractured her toes keeping her from sleepingwell but otherwise the rest of the joints are not keeping her up at night. Diabetes is not well controlled with recent hemoglobin A1c reportedly greater than 9. A 10 point review of systems is as documented on the rheumatology clinic followup form - negative except for chronic fatigue, dyspnea on exertion, occasional dyspepsia, joint pains as mentioned abovewith a.m. stiffness lasting 30 minutes, trouble sleeping because of the right foot pain, psoriasis is overall much improved with only a few small plaques in the scalp. PAST MEDICAL HISTORY Psoriatic arthritis; psoriasis; osteoarthritis of fingers and cervical spine; hypercholesterolemia;low bone mass; hypothyroidism; adult onset diabetes mellitus; [...] rheumatology clinic followup form and was negative exceptfor one psoriatic plaque in the scalp; antalgic [...] pay for Enbrel which is provided by [employer]. 4. The patient was instructed to increase [...] ALT 68 (>65), Albumin 3.9. Hgb A1c 6.9.SPEP neg. Will notify pt of lab results and to decrease MTX to 2 tabs weekly. Electronically Signed by Jimmy Burleson MD 10/24/2008 09:15 Jimmy Burleson MD - Jimmy Burleson MD - [employer] Job ID: [id number] Doc ID: [id number] cc: Jeanna Smith NP documented in this encounter Plan of Treatment Not on file documented as of this encounter Visit Diagnoses Not on filedocumented in this encounter Care Teams Chemistry Teacher Relationship Specialty Start Date End Date Jeanna Smith NP [facility] [address] [place] [address] PCP - General 06/14/08 08/21/21 documented as of this encounter
--- OUTSIDE RECORDS SUMMARY | 2024-02-21 13:29 | XMS_ITS | Encounter Summary ---
Author Organization [facility] Address [address] [place] [address] Care Team Providers Care Pipe And Tank Fabricator Name Role Phone Jeanna Smith NP Primary Care Provider [phone] Reason for Visit * Reason Onset Date Comments Other 08/05/2009 Wants to confirm labs needed for 08/06 draw in [place], [place] Encounter Details Date Type Department Care Team ([facility] st Contact Info) Description 08/05/2009 Telephone [facility] Rheumatology & Immunology - [facility] [address] [place], [place] [phone] Jimmy Burleson Chi, MD [address] [facility], [address] [place] [address] Other (Wants to confirm labs needed for 08/06 draw in [place], [place]) Social History Tobacco Use Types Packs/Day Years Used Date Smoking Tobacco: Never Assessed Comments Unknown Sex and Gender Information Value Date Recorded Sex Assigned at Not on file Legal Sex Female 18:27 EST Gender Identity Not on file Sexual Orientation Not on file documented as of this encounter Miscellaneous Notes * Telephone Encounter - Anny Huff RN - 08/05/2009 9291 EDT Lab orders faxed to [facility]. documented in this encounter Plan of Treatment Not on file documented as of this encounter Visit Diagnoses Not on filedocumented in this encounter Care Teams Pipe And Tank Fabricator Relationship Specialty Start Date End Date Jeanna Smith NP [facility] [address] [place] [address] PCP - General 06/14/08 08/21/21 documented as of this encounter
--- OUTSIDE RECORDS SUMMARY | 2024-02-21 13:29 | XMS_ITS | Encounter Summary ---
Author Organization [facility] Address [address] [place] [address] Care Team Providers Care Jewelry Repairer Name Role Phone Jeanna Smith NP Primary Care Provider [phone] Encounter Details Date Type Department Care Team (Late st Contact Info) Description 06/18/2008 Before PRISM Converted Visit (Maple) [facility] - Maple conversion [address] [place] [address] Jimmy Burleson Chi, MD [address] [facility], [address] [place] [phone] Social History Tobacco Use Types Packs/Day Years Used Date Smoking Tobacco: Never Assessed Comments Unknown Sex and Gender Information Value Date Recorded Sex Assigned at Not on file Legal Sex Female 18:27 EST Gender Identity Not on file Sexual Orientation Not on file documented as of this encounter Progress Notes * Jimmy Burleson Chi, MD - 03/27/2009 0622 EST DIVISION OF RHEUMATOLOGY PROGRESS/FOLLOWUP NOTE - 06/18/2008 PROBLEM: Psoriatic arthritis/psoriasis. CHIEF COMPLAINT Increased pain in her hands, right ankle and left knee. HISTORY OF PRESENT ILLNESS Over the past several months, patient has had increased right ankle discomfort with recurrent popping, episodes of weakness, with pain, with prolonged weightbearing. She also has intermittent shooting pains of the left knee, with prolonged walking. Legs feel like Jell-O, after she has been sitting for awhile and then tries to stand andwalk. For the past several weeks, she has had severe pain at bilateral second and third MCP joints, with mild swelling. She tries to walk once a week, up to 3/4 of a mile, and at the end of the walk, feels the discomfort in her right ankle and left knee. Shedenies swelling in her lower extremity joints. Psoriasis remains much improved while in Enbrel injec tions. She has not been taking any NSAIDs or pain relievers for the current joint pains. She continues Enbrel once a week injections. REVIEW OF SYSTEMS A 10-point review of systems is as documented in the Rheumatology Clinic followup form, and is negative except for the joint pains as mentioned above, with muscle pains in the legs, morning stiffness, and lasting one hour, muscle weakness in the legs, chronic dry skin, and minimal psoriasis. PAST MEDICAL HISTORY Psoriatic arthritis; psoriasis; osteoarthritis of fingers and cervical spine; hypercholesterolemia;low bone mass; hypothyroidism; adult onset diabetes mellitus; quinine-induced thrombocytopenia in 2002; bilateral plantar fasciitis. MEDICATIONS 1. Synthroid 100 mcg daily. 2. Glucophage 500 mg b.i.d. 3. Baby aspirin 81 mg daily. 4. Lovastatin 40 mg daily. 5. Atenolol 25 mg daily. 6. Enbrel 50 mg subcutaneously weekly. 7. Fosamax 70 mg weekly. 8. Paroxetine 40 mg daily. 9. Magnesium oxide 400 mg daily. OBJECTIVE On physical examination, fatigued appearing middle-aged female. Height 5 feet, 2 inches, weight 124pounds. Blood pressure 122/80. General exam was normal, asdocumented in the Rheumatology Clinic followup form, except for one psoriatic plaque seen at the occiput of the scalp; diffuse dryness of theskin; complete musculoskeletal exam was performed and was significant for discomfort on external rotation of theleft shoulder, with otherwise intact range of motion of both shoulders. Bilateral elbows without pain or swelling. Slight synovial thickening at bilateral wrists, with tenderness on palpation of the left wrist. Moderate tenderness with synovial thickening and bony enlargements at bilateral second and third MCP joints. Diffuse bony enlargements of the PIP and DIP joints of both hands. Hips, knees, and ankles with intact range of motion, without effusions in the knees, and intact range of motion. Tenderness of the right anterior aspect of the right ankle, with slight fullness; no swelling in the left ankle. Tenderness at bilateral plantar fascial insertions at the calcaneus. Labs, December 21, 2007 - WBCs 8.9, hemoglobin 14.0, hematocrit 40.7, platelets 203,000. AST 30, ALT 25, creatinine 0.7, albumin 4.7, ALK. Phos. 62, ESR 29. C- reactive protein less than 0.7. ASSESSMENT 1. Psoriatic arthritis - accounting for some of her increased joint symptoms, especially at the MCPjoints. 2. Bilateral plantar fasciitis discomfort - this has been chronic and possibly associated with problem #1as enthesitis. 3. Psoriasis - much improved on Etanercept therapy. PLAN We will add methotrexate 7.5 mg weekly to her current regimen. She was on methotrexate (oral liquid), four or five years ago, and this caused GI upset, but she has never tried the tablets. Continue Etanercept 50 mg injections weekly. We will get updated blood work today, consisting of CBC, chemistries, ESR, and C-reactive protein. Patient understood the potential risks and benefits of methotrexate therapy, including bone marrow suppression, hepatotoxicity, which we will monitor for with lab work every three months. Routine followup in four months. She will call us regarding any questions withmethotrexate therapy. P.S. Labs normal except AST 54 (>46), T Protein 8.7 (>8.3), CBC normal. Letter sent to pt. toget labs in 1 - 2 mos after starting MTX; will also check SPEP. Signed by Jimmy Burleson MD 06/22/2008 13:18 Jimmy Burleson MD - Jimmy Burleson MD - [facility] Job ID: [id number] Doc ID: [id number] cc: Jeanna Smith NP documented in this encounter Plan of Treatment Not on file documented as of this encounter Visit Diagnoses Not on filedocumented in this encounter Care Teams Jewelry Repairer Relationship Specialty Start Date End Date Jeanna Smith NP [facility] [address] [place] [address] (work) PCP - General 06/14/08 08/21/21 documented as of this encounter
--- OUTSIDE RECORDS SUMMARY | 2024-02-21 13:29 | XMS_ITS | Encounter Summary ---
Author Organization [facility] Address [address] [place] [address] Care Team Providers Care Application Support Manager Name Role Phone Unavailable Primary Care Provider Unavailabl e Encounter Details Date Type Department Care Team (Late st Contact Info) Description 06/11/2003 9:51 EDT - 06/11/2003 11:59 EDT Hospital Encounter [facility] - Other [address] [place] [address] Jimmy Burleson Chi, MD 111 [facility], [address] [place] [phone] Discharge Disposition: Auto Discharge Social History Tobacco [...]
--- OUTSIDE RECORDS SUMMARY | 2024-02-21 13:29 | XMS_ITS | Encounter Summary ---
Author Organization [facility] Address [address] [place] [address] Care Team Providers Care Uniformer Name Role Phone Jeanna Smith NP Primary Care Provider [phone] Encounter Details Date Type Department Care Team (Late st Contact Info) Description 05/14/2010 Orders Only [facility] Rheumatology & Immunology - [facility] [address] [place], [place] [phone] Marina Dunn RN Psoriatic arthropathy ([facility]) (Primary Dx) Social History Tobacco Use Types Packs/Day Years Used Date Smoking Tobacco: Never Alcohol Use Standard Drinks/Week Comments [...] days. Every two weeks. 6 mL 1 05/14/2010 11/05/2010 documented in this encounter Plan of Treatment Not on file documented as of this encounter Visit Diagnoses Diagnosis Psoriatic arthropathy ([facility])- Primary Psoriatic arthropathy documented in this encounter Discontinued Medications Medication Sig Discontinue Reason Start Date End Da te adalimumab (HUMIRA PEN) 40 mg/0.8 mL PnKt Inject 0.8 mL into the skin every 14 days. Every two weeks. Reorder 05/14/2010 05/14/2010 documented as of this encounter Care Teams Uniformer Relationship Specialty Start Date End Date Jeanna Smiht NP [facility] [address] [place] [address] PCP - General 06/14/08 08/21/21 documented as of this encounter
--- OUTSIDE RECORDS SUMMARY | 2024-02-21 13:29 | XMS_ITS | Encounter Summary ---
Author Organization [facility] Address [address] [place] [address] Care Team Providers Care Forestry Consultant Name Role Phone Unavailable Primary Care Provider Unavailabl e Encounter Details Date Type Department Care Team (Late st Contact Info) Description 06/16/2004 9:48 EDT - 06/16/2004 11:59 EDT Hospital Encounter [facility] - Other [address] [place], [place] [address] Jimmy Burleson Chi, MD [address] [facility], [address] [place] [phone] Discharge Disposition: Auto Discharge Social History Tobacco [...] Procedure Name Priority Date/Time Associated Diagnosis Comments CERVICAL SPINE AP&LAT Routine 06/16/2004 10:13 EDT documented in this encounter Results * CERVICAL SPINE AP&LAT (06/16/2004 10:13 EDT) Anatomical Region Laterality Modality Other 06/16/2004 10:1 3 EDT Narrative 10/22/2008 9:29 EDT INCREASED NECK PAIN, HISTORY OF PSORIATIC ARTHRITIS R/O DEGENERATIVE DISC DISEASE, SPONDYLARTHROPLATHY CERVICAL SPINE: 06/16/04, 1005 FINDINGS: 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 The facet joints at C3-4 and C4-5 show degenerative changes. The C7-T1 disc space is obscured by the high shoulders. AP view shows that the facet joint arthropathy is predominantly on the left side. 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 The facet joints at C3-4 and C4-5 show degenerative changes. The C7-T1 disc space is obscured by the high shoulders. AP view shows that the facet joint arthropathy is predominantly on the left side. /sb Jimmy Burleson MD IMG DIAGNOSTIC IMAGING ORDERABLE S Final Result documented in this encounter Visit Diagnoses Not on filedocumented in this encounter
--- OUTSIDE RECORDS SUMMARY | 2024-02-21 13:29 | XMS_ITS | Encounter Summary ---
Author Organization [facility] Address [address] [place] [address] Care Team Providers Care Sales Attendant Building Materials Name Role Phone Jeanna Smith NP Primary Care Provider [phone] Reason for Visit * Reason Onset Date Comments Medications Refill 11/05/2010 Encounter Details Date Type Department Care Team (Late st Contact Info) Description 11/05/2010 Refill [facility] Rheumatology & Immunology - [address] [address] Anu Hernandez RN Medications Refill Social History Tobacco Use [...] mouth once a week. 24 Tab 3 11/05/2010 05/21/2011 adalimumab (HUMIRA PEN) 40 mg/0.8 mL PnKt Inject 0.8 mL into the skin every 14 days. Every two weeks. 6 Pen 3 11/05/2010 11/04/2011 documented in this encounter Plan of Treatment Not on file documented as of this encounter Visit Diagnoses Not on filedocumented in this encounter Discontinued Medications Medication Sig Discontinue Reason Start Date End Da te adalimumab (HUMIRA PEN) 40 mg/0.8 mL PnKt Inject 0.8 mL into the skin every 14 days. Every two weeks. Reorder 05/14/2010 11/05/2010 methotrexate 2.5 mg tablet Take 5 mg by mouth once a week. 2 tabs Reorder 09/17/2010 11/05/2010 documented as of this encounter Care Teams Sales Attendant Building Materials Relationship Specialty Start Date End Date Jeanna Smith NP [facility] [address] [place] [address] PCP - General 06/14/08 08/21/21 documented as of this encounter
--- OUTSIDE RECORDS SUMMARY | 2024-02-21 13:29 | XMS_ITS | Encounter Summary ---
Author Organization [facility] Address [address] [place] [address] Care Team Providers Care Cemetery Vault Installer Name Role Phone Jeanna Smith NP Primary Care Provider [phone] Encounter Details Date Type Department Care Team (Late st Contact Info) Description 08/29/2009 Abstract Used for ABSTRACTING Data [phone] Jeanna Smith, [facility] [address] [place] [address] Social History Tobacco Use Types Packs/Day Years [...] on filedocumented in this encounter Historical Medications * This list may reflect changes made after this encounter. magnesium oxide (MAG-OX) 400 mg tablet Take 1 Tab by mouth daily. paroxetine (PAXIL) 40 mg tablet Take 1 Tab by mouth daily. alendronate (FOSAMAX) 70 mg tablet Take 1 Tab by mouth once a week. lovastatin (MEVACOR) 40 mg tablet Take 1 Tab by mouth daily. aspirin chewable (BABY ASPIRIN) 81 mg tablet Take 1 Tab by mouth daily. celecoxib (CELEBREX) 100 mg capsule Take 1 Cap by mouth daily. 09/02/2009 Etanercept (ENBREL SURECLICK) 50 mg/mL (0.98 mL) PnIj Inject 50 mg into the skin once a week. 09/02/2009 metformin (GLUCOPHAGE) 500 mg tablet Take 1 Tab by mouth 2 times daily. 09/02/2009 levothyroxine (SYNTHROID) 112 mcg tablet Take 1 Tab by mouth daily. 04/07/2010 added in this encounter Care Teams Cemetery Vault Installer Relationship Specialty Start Date End Date Jeanna Smith NP [facility] [address] [place] [address] PCP - General 06/14/08 08/21/21 documented as of this encounter
--- OUTSIDE RECORDS SUMMARY | 2024-02-21 13:29 | XMS_ITS | Encounter Summary ---
Author Organization [facility] Address [address] [place] [address] Care Team Providers Care Staffing Consultant Name Role Phone Unavailable Primary Care Provider Unavailabl e Encounter Details Date Type Department Care Team (Late st Contact Info) Description 12/15/2004 10:26 EDT Hospital Encounter [address] [address] Jimmy Burleson Chi, MD [address] [place] [address], [address] [place] [phone] Social History Tobacco Use Types Packs/Day Years [...]
--- OUTSIDE RECORDS SUMMARY | 2024-02-21 13:29 | XMS_ITS | Encounter Summary ---
Author Organization [facility] Address [address] [place] [address] Care Team Providers Care Syrup Mixer Helper Name Role Phone Jeanna Iglesias NP Primary Care Provider [phone] Encounter Details Date Type Department Care Team (Late st Contact Info) Description 2004 Results Only [facility] - Maple conversion [address] [place] [address] Jeanna Iglesias, LEAD PROGRAMMER [facility] [address] [place], [place] [phone] Social History Tobacco Use Types Packs/Day Years [...] Procedure Name Priority Date/Time Associated Diagnosis Comments CYTOPATHOLOGY Routine 2004 0:00 EST documented in this encounter Results * CYTOPATHOLOGY (2004 0:00 EST) Pathology Report: CYTOPATHOLOGY REPORT Reports generated via electronic interface contain original data; however they are lacking the format of the original report. Caution should be taken when reading/interpreti ng unformatted reports. Name: ? ELEAZAR SORIANO ? Accession #: ? [id number] : ? 1950 (Age: 54) ??F ?Collect Date: ? 2004 Location: ? [facility] ? Receive Date: ? 05/15/2004 Provider: ?JEANNA IGLESIAS LEAD PROGRAMMER Copy to: ? Specimen/Source: ?ThinPrep Pap Test, Cervix/Endocervix Last Menstrual Period: ? 20 years ago ? SPECIMEN ADEQUACY ? Satisfactory for Evaluation - transformation zone component present GENERAL CATEGORIZATION ? Negative for Intraepithelial Lesion or Malignancy ? Document reviewed and electronically signed by: ? Le Adkins, RADHA(ASCP)(IAC) ? Report Date: ??05/19/2004 10:55 End of Report [facility] 2004 05/15/2004 us Jeanna Iglesias LEAD PROGRAMMER PATHOLOGY ORDERABLES Final Resu lt Performing Organization Address City/State/[facility] Co de Phone Number [facility] [address] [place] [address] documented in this encounter Visit Diagnoses Not on filedocumented in this encounter Care Teams Syrup Mixer Helper Relationship Specialty Start Date End Date Jeanna Iglesias NP [facility] [address] [place] [address] PCP - General 06/14/08 08/21/21 documented as of this encounter
--- OUTSIDE RECORDS SUMMARY | 2024-02-21 13:29 | XMS_ITS | Encounter Summary ---
Author Organization [facility] Address [address] [place] [address] Care Team Providers Care Clinic Lpn Name Role Phone Jeanna Smith NP Primary Care Provider [phone] Encounter Details Date Type Department Care Team (Late st Contact Info) Description 06/11/2003 Results Only [facility] Rheumatology & Immunology - [facility] [address] [place], [place] [id number] Jimmy Burleson Chi, MD [address] [facility], [address] [place] [address] Social History Tobacco Use Types Packs/Day [...] Procedure Name Priority Date/Time Associated Diagnosis Comments ARTHRITIS 1 Routine 06/11/2003 10:13 EDT DMARD PROFILE Routine 06/11/2003 10:13 EDT SED RATE Routine 06/11/2003 10:13 EDT COMPLETE BLOOD COUNT AND DIFFERENTIAL Routine 06/11/2003 10:13 EDT C REACTIVE PROTEIN Routine 06/11/2003 10 :13 EDT documented in this encounter Results * SED. RATE:TIMOERGREN (06/11/2003 10:13 EDT) [facility] Sed. Rate Timoergren 17 0 - 30 mm/hr [facility] 06/11/2003 10:1 3 EDT 06/11/2003 10:16 EDT us Jimmy Burleson MD HEMATOLOGY & PF4 ORDERABLES Marita l Result Performing Organization Address City/[facility] Co de Phone Number [facility] [address] [place] [address] * (ABNORMAL) DMARD PROFILE (06/11/2003 10:13 EDT) [facility] Total Alkaline Phosphatase 54 38 - 126 U/L [facility] AST 25 15 - 46 U/L [facility] ALT 23 9 - 52 U/L [facility] Albumin 4.0 3.4 - 4.9 g/dl [facility] Creatinine 0.6(L) 0.7 - 1.5 mg/dl [facility] 06/11/2003 10:1 3 EDT 06/11/2003 10:16 EDT us Jimmy Burleson MD CHEMISTRY & BLOOD GAS ORDERABLES Final Result Performing Organization Address [facility] de Phone Number [facility] [address] [place] [address] * C-REACTIVE PROTEIN (06/11/2003 10:13 EDT) [facility] C-Reactive Protein <0.7 <1.0 mg/dl [facility] 06/11/2003 10:1 3 EDT 06/11/2003 10:16 EDT us Jimmy Burleson MD CHEMISTRY & BLOOD GAS ORDERABLES Final Result Performing Organization Address [facility] Co de Phone Number [facility] [address] [place] [address] * (ABNORMAL) HEMAGRAM AND DIFFERENTIAL (06/11/2003 10:13 EDT) WBC 6.18 4.0 - 12.4 K/cmm [facility] RBC 4.38 3.86 - 5.04 M/cmm [facility] Hemoglobin 13.8 11.6 - 15.2 gm/dl [facility] HCT 40.4 34.9 - 44.4 % [facility] MCV 92 81 - 98 fl [facility] MCH 31.6 26.7 - 33.3 pg [facility] MCHC 34.2 32.1 - 35.9 gm/dl [facility] PLT 179 141 - 320 K/cmm [facility] RDW-CV 12.7 11.7 - 14.6 % [facility] % Neutrophils 44.9(L) 45.5 - 79.7 % [facility] % Lymphocytes 41.0 15.0 - 46.8 % [facility] % Monocytes 11.2 1.8 - 12.0 % [facility] % Eosinophils 2.5 0.6 - 6.9 % [facility] % Basophils 0.4 0.2 - 1.4 % [facility] ABS Neutrophils 2.78 2.20 - 8.85 K/cmm [facility] ABS Lymphs 2.53 1.09 - 3.30 K/cmm [facility] ABS Monocytes 0.69 0.1 - 0.8 K/cmm [facility] ABS Eosinophils 0.15 0.03 - 0.61 K/cmm [facility] ABS Basophils 0.03 0.01 - 0.11 K/cmm [facility] Type of Diff: Automated [facility] 06/11/2003 10:1 3 EDT 06/11/2003 10:16 EDT us Jimmy Burleson MD PACKAGES & DNA PROBE ORDERABLES Final Result [facility] [address] [place] [address] * ARTHRITIS 1 (06/11/2003 10:13 EDT) Anti Nuclear Ab <40 0 - 40 Dils [facility] Rheumatoid Factor <20 <20 IU/ml [facility] 06/11/2003 10:1 3 EDT 06/11/2003 10:16 EDT us Jimmy Burleson MD IMMUNOLOGY AND SEROLOGY ORDERABL ES Final Result Performing Organization Address City/State/[facility] Co de Phone Number [facility] [address] [place] [address] documented in this encounter Visit Diagnoses Not on filedocumented in this encounter Care Teams Clinic Lpn Relationship Specialty Start Date End Date Jeanna Smith, [facility] [address] [place], [place] [phone] PCP - General 06/14/08 08/21/21 documented as of this encounter
--- OUTSIDE RECORDS SUMMARY | 2024-02-21 13:29 | XMS_ITS | Encounter Summary ---
Author Organization [facility] Address [address] [place] [address] Care Team Providers Care Heel Nail Rasper Name Role Phone Jeanna Smith NP Primary Care Provider [phone] Reason for Visit * Reason Comments Joint Pain esther left foot, neck, left hand Encounter Details Date Type Department Care Team (Late st Contact Info) Description 09/02/2009 15:15 EDT Office Visit [facility] Rheumatology & Immunology - [address] [phone] Jimmy Burleson Chi, MD [address] [place] [address], [address] [place] [address] Psoriatic arthritis ([facility]) ([facility]); Osteoporosis; Osteoarthritis cervical spine; Encounter for long-term (current) use of other medications; Muscle weakness due to diabetes ([facility]) Social History Tobacco Use Types Packs/Day Years Used Date Smoking Tobacco: Never Assessed Comments No Sex and Gender Information Value Date Recorded Sex Assigned at Not on file Legal Sex Female 18:27 EST Gender Identity Not on file Sexual Orientation Not on file documented as of this encounter Last Filed Vital Signs Vital Sign Reading Time Taken Comments Blood Pressure 88/60 09/02/2009 1511 EDT Pulse 76 09/02/2009 1511 EDT Temperature - - Respiratory Rate - - Oxygen Saturation - - Inhaled Oxygen Concentration - - Weight 54.4 kg (120 lb) 09/02/2009 1511 EDT Height 157.5 cm (5' 2) 09/02/2009 1511 EDT Body Mass Index 21.95 09/02/2009 1511 EDT documented in this encounter Ordered Prescriptions Prescription Sig Dispense Quantity Refills Last Filled Start Date End Date celecoxib (CELEBREX) 200 mg capsuleIndications: Psoriatic arthritis (HCC-CMS),Osteoarth ritis cervical spine Take 1 Cap by mouth daily. 90 Cap 3 09/02/2009 04/07/2010 methotrexate (TREXALL) 2.5 mg tabletIndications:P soriatic arthritis (HCC-CMS),Osteoarth ritis cervical spine Take 2 Tabs by mouth once a week. 24 Tab 1 09/02/2009 03/03/2010 documented in this encounter Progress Notes * Jimmy Burleson Chi, MD - 09/02/2009 1557 EDT Images from the original note were not included. Subjective: Patient ID: Shereen Vega is an 59 y.o. female. Chief Complaint Patient presents with ??? Joint Pain esther left foot, neck, left hand HPI Left palm and wrist are painful with assoc tingling of hand; chronic swelling in R hand mcp jts. Left heel continues to be painful with weightbearing- usually wears sneakers, but does wear sandals which triggers more heel pain. No active psoriasis. Diabetes is not well controlled- glucoses up to 275. Hgb Aic >9. Does housechores,but no regular exercise. Left leg is tripping going up stairs for several weeks- not assoc with pain. 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 Patient Active Problem List Diagnoses Code ??? Psoriatic arthritis 696.0G ??? Psoriasis 696.1U ??? Osteoarthritis cervical spine 721.0K ??? Hypercholesterolemia 272.0L ??? Osteoporosis 733.00C ??? Hypothyroidism 244.9AP ??? Diabetes mellitus 250.00A ??? Thrombocytopenia 287.5M ??? Bone mass 733.90AT ??? Helicobacter pylori (H. pylori) 041.86 ??? Rheumatoid arthritis 714.0 ??? Depression 311L Past Medical History Diagnosis Date ??? Plantar fasciitis bilateral History reviewed. No pertinent past surgical history. Family History Problem Relation ??? Arthritis ??? Arthritis-Osteo Father ??? Osteoporosis ??? Diabetes ??? Heart Disease Social History Substance Use Topics ??? Tobacco Use: Not on file ??? Alcohol Use: Not on file Current outpatient prescriptions prior to encounter Medication Sig Dispense Refill ??? atenolol (TENORMIN) 25 mg tablet Take 1 Tab by mouth 2 times daily. ??? levothyroxine (SYNTHROID) 112 mcg tablet Take 1 Tab by mouth daily. ??? aspirin chewable (BABY ASPIRIN) 81 mg tablet Take 1 Tab by mouth daily. ??? lovastatin (MEVACOR) 40 mg tablet Take 1 Tab by mouth daily. ??? Etanercept (ENBREL SURECLICK) 50 mg/mL (0.98 mL) PnIj Inject 50 mg into the skin once a week. ??? alendronate (FOSAMAX) 70 mg tablet Take 1 Tab by mouth once a week. ??? paroxetine (PAXIL) 40 mg tablet Take 1 Tab by mouth daily. ??? magnesium oxide (MAG-OX) 400 mg tablet Take 1 Tab by mouth daily. ??? celecoxib (CELEBREX) 100 mg capsule Take 1 Cap by mouth daily. ??? methotrexate (TREXALL) 2.5 mg tablet Take 2 Tabs by mouth once a week. 8 Tab 0 Allergies Allergen Reactions ??? Quinine Other (See Comments) ??? Penicillins Hives ??? Erythromycin Upset stomach Review of Systems Respiratory: Positive for cough (since april; nonproductive; cxr done last week) and shortness of breath (with exertion). Musculoskeletal: Positive for joint pain. Neurological: Positive for tingling (of hands). Psychiatric/Behavioral: The patient has insomnia (awakens due neck pains). All other systems reviewed and are negative. - See HPI Objective: BP 88/60 Pulse 76 Ht 1.575 m (5' 2) Wt 54.432 kg (120 lb) Physical Exam Constitutional: She is oriented to person, place, and time. No distress. Pale mid aged female HENT: Head: Normocephalic. Mouth/Throat: No oropharyngeal exudate. Eyes: Conjunctivae are normal. Pupils are equal, round, and reactive to light. Neck: No JVD present. Cardiovascular: Normal rate and regular rhythm. No murmur heard. Pulmonary/Chest: Breath sounds normal. She has no wheezes. Abdominal: Soft. No tenderness. Musculoskeletal: A complete msk exam was done and significant findings shown on homonculus. Lymphadenopathy: She has no cervical adenopathy. Neurological: She is alert and oriented to person, place, and time. Weak Left quad 3+ to 4/5 strength. Skin: No rash noted. Psychiatric: She has a normal mood and affect. Labs at [facility]- 08/01- will request Assessment: 1. Psoriatic arthritis- moderate activity in hands, L wrist, and possibly L heel; incr Celebrex. 2. Psoriasis- controlled on current regimen. 3. Left heel pain due to calcaneal bursitis- partly due to psoriatic arthropathy. 4. Left Quad weakness- most likely due to diabetes causing neuropathy and muscle dysfxn. Plan: 1. con't MTX, Enbrel at current doses with q 3 to 4 mo. CBC, CMP monitoring for toxicity. 2. Increase celebrex to 200 mg daily. 3. Wear thick soled shoes at all times to cushion L heel 4. If jt inflammation con'ts, consider switch in TNF inhibitor. 5 Control diabetes- pt has f/u with pcp. Barriers to learning identified: No Patient verbalizes understanding and agrees with plan Yes documented in this encounter Plan of Treatment Not on file documented as of this encounter Visit Diagnoses Diagnosis Psoriatic arthritis ([facility]) Psoriatic arthropathy Osteoporosis Osteoporosis, unspecified Osteoarthritis cervical spine Cervical spondylosis without myelopathy Encounter for long-term (current) use of other medications Muscle weakness due to diabetes ([facility]) Type II or unspecified type diabetes mellitus with neurological manifestations, not stated as uncontrolled documented in this encounter Discontinued Medications Medication Sig Discontinue Reason Start Date End Da te metformin (GLUCOPHAGE) 500 mg tablet Take 1 Tab by mouth 2 times daily. Dose adjustment 09/02/2009 celecoxib (CELEBREX) 100 mg capsule Take 1 Cap by mouth daily. 09/02/2009 methotrexate (TREXALL) 2.5 mg tablet Take 2 Tabs by mouth once a week. Reorder 08/02/2009 09/02/2009 documented as of this encounter Historical Medications * This list may reflect changes made after this encounter. calcium carbonate (OS-MANDI) 500 mg (1,250 mg) tablet Take 1 Tab by mouth 2 times daily. metformin (GLUCOPHAGE) 850 mg tablet Take 850 mg by mouth 2 times daily. 09/17/2010 added in this encounter Care Teams Heel Nail Rasper Relationship Specialty Start Date End Date Jeanna Smith NP [facility] [address] [place] [address] PCP - General 06/14/08 08/21/21 documented as of this encounter
--- OUTSIDE RECORDS SUMMARY | 2024-02-21 13:29 | XMS_ITS | Encounter Summary ---
Author Organization [facility] Address [address] [place] [address] Care Team Providers Care Test Bore Helper Name Role Phone Jeanna Smith PLANT PULLER Primary Care Provider [phone] Reason for Visit * Reason Onset Date Comments Medications Refill 05/14/2010 Humira Encounter Details Date Type Department Care Team (Late st Contact Info) Description 05/14/2010 Refill [facility] Rheumatology & Immunology - [facility] [address] [place], [place] [phone] Jimmy Burleson Chi, MD [address] [facility], [address] [place] [address] Medications Refill (Humira) Social History Tobacco Use Types Packs/Day Years [...] on filedocumented in this encounter Care Teams Test Bore Helper Relationship Specialty Start Date End Date Jeanna Smith, [facility] [address] [place], [place] [address] PCP - General 06/14/08 08/21/21 documented as of this encounter
--- OUTSIDE RECORDS SUMMARY | 2024-02-21 13:29 | XMS_ITS | Encounter Summary ---
Author Organization [facility] Address [address] [place] [address] Care Team Providers Care Financial Quantitative Analyst Name Role Phone Jeanna Smith NP Primary Care Provider [phone] Encounter Details Date Type Department Care Team (Late st Contact Info) Description 12/17/2003 Results Only [facility] Rheumatology & Immunology - [address] [phone] Jimmy Burleson Chi, MD [address] [facility], [address] [place] [address] Social History Tobacco Use Types [...] Procedure Name Priority Date/Time Associated Diagnosis Comments DMARD PROFILE Routine 12/17/2003 11:10 EDT COMPLETE BLOOD COUNT AND DIFFERENTIAL Routine 12/17/2003 11:10 EDT documented in this encounter Results * DMARD PROFILE (12/17/2003 11:10 EDT) Total Alkaline Phosphatase 82 38 - 126 U/L [facility] AST 34 15 - 46 U/L [facility] ALT 32 9 - 52 U/L [facility] Albumin 4.2 3.4 - 4.9 g/dl [facility] Creatinine 0.7 0.7 - 1.5 mg/dl [facility] 12/17/2003 11:1 0 EDT 12/17/2003 11:11 EDT Jimmy Burleson MD CHEMISTRY & BLOOD GAS ORDERABLES Final Result [facility] [address] [place] [address] * HEMAGRAM AND DIFFERENTIAL (12/17/2003 11:10 EDT) WBC 6.21 4.0 - 12.4 K/cmm [facility] RBC 4.46 3.86 - 5.04 M/cmm [facility] Hemoglobin 14.4 11.6 - 15.2 gm/dl [facility] HCT 41.8 34.9 - 44.4 % [facility] MCV 94 81 - 98 fl [facility] MCH 32.4 26.7 - 33.3 pg [facility] MCHC 34.5 32.1 - 35.9 gm/dl [facility] PLT 196 141 - 320 K/cmm [facility] RDW-CV 13.5 11.7 - 14.6 % [facility] % Neutrophils 47.0 45.5 - 79.7 % [facility] % Lymphocytes 38.9 15.0 - 46.8 % [facility] % Monocytes 10.4 1.8 - 12.0 % [facility] % Eosinophils 3.1 0.6 - 6.9 % [facility] % Basophils 0.6 0.2 - 1.4 % [facility] ABS Neutrophils 2.92 2.20 - 8.85 K/cmm [facility] ABS Lymphs 2.42 1.09 - 3.30 K/cmm [facility] ABS Monocytes 0.64 0.1 - 0.8 K/cmm [facility] ABS Eosinophils 0.19 0.03 - 0.61 K/cmm [facility] ABS Basophils 0.04 0.01 - 0.11 K/cmm [facility] Type of Diff: Automated [facility] 12/17/2003 11:1 0 EDT 12/17/2003 11:11 EDT us Jimmy Burleson MD PACKAGES & DNA PROBE ORDERABLES Final Result [facility] [address] [place] [address] documented in this encounter Visit Diagnoses Not on filedocumented in this encounter Care Teams Financial Quantitative Analyst Relationship Specialty Start Date End Date Jeanna Smith NP [facility] [address] [place], [place] [phone] PCP - General 06/14/08 08/21/21 documented as of this encounter
--- OUTSIDE RECORDS SUMMARY | 2024-02-21 13:29 | XMS_ITS | Encounter Summary ---
Author Organization [facility] Address [address] [place] [address] Care Team Providers Care Truck Terminal Manager Name Role Phone Jeanna Iglesias CIGARETTE BOOK MAKER Primary Care Provider [phone] Encounter Details Date Type Department Care Team (Late st Contact Info) Description 03/24/[address] [facility] Laboratory Services - [facility] [address] [place], [place] [address] Jeanna Iglesias, CIGARETTE BOOK MAKER [facility] [address] [place], [place] [phone] Social History Tobacco Use Types Packs/Day Years [...] Priority Date/Time Associated Diagnosis Comments CYTOPATHOLOGY Routine 03/24/2010 0:00 EST documented in this encounter Results * CYTOPATHOLOGY (03/24/2010 0:00 EST) Pathology Report: CYTOPATHOLOGY REPORT ? Reports generated via electronic interface contain original data; ? however they are lacking the format of the original report. ? Caution should be taken when reading/interpreti ng unformatted reports. ? Name: ? ELEAZAR SORIANO ? Accession #: ? [id number] ? : ? 1950 (Age: 59) ??F ?Collect Date: ? 03/24/2010 ? Location: ? [facility] ? Receive Date: ? 03/25/2010 ? Provider: ?JEANNA IGLESIAS CIGARETTE BOOK MAKER ? Copy to: ? Specimen/Source: ?Pap Test, Cervix/Endocervix, ThinPrep Imaging System ? with manual evaluation ? Last Menstrual Period: ? at age 34 ? SPECIMEN ADEQUACY ? Satisfactory for Evaluation ? - assessment of transformation zone component not applicable ( e.g. atrophy, ? vaginal sample, hysterectomy) ? GENERAL CATEGORIZATION ? Negative for Intraepithelial Lesion or Malignancy ? Document reviewed and electronically signed by: ? Harley Bone, CT(ASCP) ? Report Date: ??03/31/2010 14:44 ? End of Report ? [facility] 03/24/2010 03/25/2010 Jeanna Iglesias CIGARETTE BOOK MAKER PATHOLOGY ORDERABLES Final Resu lt Performing Organization Address City/State/[facility] Co de Phone Number [facility] [address] [place] [address] documented in this encounter Visit Diagnoses Not on filedocumented in this encounter Care Teams Truck Terminal Manager Relationship Specialty Start Date End Date Jeanna Iglesias, C[employer]ARET[employer] MAK[employer] [facility] [address] [place] [address] PCP - General 06/14/08 08/21/21 documented as of this encounter
--- OUTSIDE RECORDS SUMMARY | 2024-02-21 13:29 | XMS_ITS | Encounter Summary ---
Author Organization [facility] Address [address] [place] [address] Care Team Providers Care Clinical Staff Anesthesiologist Name Role Phone Jeanna Smith NP Primary Care Provider [phone] Reason for Visit * Reason Onset Date Comments Medications Refill 03/03/2010 Encounter Details Date Type Department Care Team (Late st Contact Info) Description 03/03/2010 Refill [facility] Rheumatology & Immunology - [address] [phone] Jimmy Burleson Chi, MD [address] [facility], [address] [place] [address] Medications Refill Social History Tobacco [...] Date methotrexate 2.5 mg tabletIndications:P soriatic arthritis (HCC-CMS),Osteoarth ritis cervical spine Take 2 Tabs by mouth once a week. 24 Tab 1 03/03/2010 04/07/2010 documented in this encounter Miscellaneous Notes * Telephone Encounter - Jimmy Burleson Chi, MD - 03/04/2010 1020 EST She needs updated labs for mtx * Telephone Encounter - Jimmy Burleson Chi, MD - 03/04/2010 1019 EST documented in this encounter Plan of Treatment Not on file documented as of this encounter Visit Diagnoses Diagnosis Psoriatic arthritis ([facility]) Psoriatic arthropathy Osteoarthritis cervical spine Cervical spondylosis without myelopathy documented in this encounter Discontinued Medications Medication Sig Discontinue Reason Start Date End Da te methotrexate (TREXALL) 2.5 mg tabletIndications:Psoriat ic arthritis ([facility]),Osteoarthritis cervical spine Take 2 Tabs by mouth once a week. Reorder 09/02/2009 03/03/2010 documented as of this encounter Care Teams Clinical Staff Anesthesiologist Relationship Specialty Start Date End Date Jeanna Smith NP [facility] [address] [place] [address] PCP - General 06/14/08 08/21/21 documented as of this encounter
--- OUTSIDE RECORDS SUMMARY | 2024-02-21 13:29 | XMS_ITS | Encounter Summary ---
Author Organization [facility] Address [address] [place] [address] Care Team Providers Care Broker Assistant Name Role Phone Jeanna Smith MANAGER RELIABILITY Primary Care Provider [phone] Reason for Visit * Reason Onset Date Comments Medications Refill 11/13/2010 Encounter Details Date Type Department Care Team (Late st Contact Info) Description 11/13/2010 Refill [facility] Rheumatology & Immunology - [facility] [address] [place], [place] [phone] Anu Hernandez RN Medications Refill Social History [...] on filedocumented in this encounter Care Teams Broker Assistant Relationship Specialty Start Date End Date Jeanna Smith NP [facility] [address] [place] [address] PCP - General 06/14/08 08/21/21 documented as of this encounter
--- OUTSIDE RECORDS SUMMARY | 2024-02-21 13:29 | XMS_ITS | Encounter Summary ---
Author Organization [facility] Address [address] [place] [address] Care Team Providers Care Pressure Test Operator Name Role Phone Unavailable Primary Care Provider Unavailabl e Encounter Details Date Type Department Care Team (Late st Contact Info) Description 12/17/2003 10:42 EDT Hospital Encounter [facility] - Other [address] [place] [address] Jimmy Burleson Chi, MD [address] [facility], [address] [place] [address] Social History Tobacco Use Types [...]
--- OUTSIDE RECORDS SUMMARY | 2024-02-21 13:29 | XMS_ITS | Encounter Summary ---
Author Organization [facility] Address [address] [place] [address] Care Team Providers Care Shop Tailor Apprentice Name Role Phone Jeanna Smith NP Primary Care Provider [phone] Encounter Details Date Type Department Care Team (Late st Contact Info) Description 11/01/2006 Results Only [facility] Rheumatology & Immunology - [facility] [address] [place], [place] [id number] Jimmy Burleson Chi, MD [address] [facility], [address] [place] [address] Social History Tobacco Use Types [...] Date/Time Associated Diagnosis Comments SED RATE Routine 11/01/2006 12:50 EDT COMPLETE BLOOD COUNT AND DIFFERENTIAL Routine 11/01/2006 12:50 EDT C REACTIVE PROTEIN Routine 11/01/2006 12 :50 EDT HEPATIC FUNCTION PANEL (ALB,ALK PHOS,ALT,AST,DBIL,TOT ANA,TOT PROT) Routine 11/01/2006 12:50 EDT BASIC METABOLIC PANEL (BMP) Routine 11/01/2006 12:50 EDT documented in this encounter Results * (ABNORMAL) SED. RATE:DEMARCUSREN (11/01/2006 12:50 EDT) Sed. Rate Westergren 33(H) 0 - 30 mm/hr [facility] 11/01/2006 12:5 0 EDT 11/01/2006 12:52 EDT us Jimmy Burleson MD HEMATOLOGY & PF4 ORDERABLES Marita l Result Performing Organization Address [facility] Co de Phone Number [facility] [address] [place] [address] * (ABNORMAL) LIVER FUNCTION TESTS (11/01/2006 12:50 EDT) Pathologist [facility] Albumin 4.7 3.4 - 4.9 g/dl [facility] Total Protein 8.6(H) 6.5 - 8.3 g/dl [facility] Total Alkaline Phosphatase 76 38 - 126 U/L [facility] ALT 21 9 - 52 U/L [facility] AST 24 15 - 46 U/L [facility] Unconjugated Bilirubin 0.3 0.1 - 1.1 mg/dl [facility] Conjugated Bilirubin 0.0 0.0 - 0.3 mg/dl [facility] Bilirubin, Total <0.5 0.2 - 1.3 mg/dl [facility] 11/01/2006 12:5 0 EDT 11/01/2006 12:52 EDT us Jimmy Burleson MD CHEMISTRY & BLOOD GAS ORDERABLES Final Result Performing Organization Address [facility] Co de Phone Number [facility] [address] [place] [address] * (ABNORMAL) C-REACTIVE PROTEIN (11/01/2006 12:50 EDT) Pathologist [facility] C-Reactive Protein 1.1(H) <1.0 mg/dl [facility] 11/01/2006 12:5 0 EDT 11/01/2006 12:52 EDT us Jimmy Burleson MD CHEMISTRY & BLOOD GAS ORDERABLES Final Result [facility] [address] [place] [address] * HEMAGRAM AND DIFFERENTIAL (11/01/2006 12:50 EDT) WBC 9.48 4.0 - 12.4 K/cmm [facility] RBC 4.56 3.86 - 5.04 M/cmm [facility] Hemoglobin 14.3 11.6 - 15.2 gm/dl [facility] HCT 41.2 34.9 - 44.4 % [facility] MCV 90 81 - 98 fl [facility] MCH 31.3 26.7 - 33.3 pg [facility] MCHC 34.6 32.1 - 35.9 gm/dl [facility] PLT 227 141 - 320 K/cmm [facility] RDW-CV 13.7 11.7 - 14.6 % [facility] % Neutrophils 63.5 45.5 - 79.7 % [facility] % Lymphocytes 24.1 15.0 - 46.8 % [facility] % Monocytes 8.0 1.8 - 12.0 % [facility] % Eosinophils 4.0 0.6 - 6.9 % [facility] [...] [facility] Type of Diff: Automated [facility] 11/01/2006 12:5 0 EDT 11/01/2006 12:52 EDT Jimmy Burleson MD PACKAGES & DNA PROBE ORDERABLES Final Result Performing Organization Address [facility] Co de Phone Number [facility] [address] [place] [address] * (ABNORMAL) BASIC METABOLIC PANEL (11/01/2006 12:50 EDT) Sodium 141 136 - 145 mEq/L [facility] Potassium 4.3 3.5 - 5.0 mEq/L [facility] Chloride 104 96 - 110 mEq/L [facility] CO2 25 24 - 32 mEq/L [facility] BUN 17 10 - 26 mg/dl [facility] Creatinine 0.65(L) 0.7 - 1.5 mg/dl [facility] GFR, Calculated >60 ml/min/1.7 3m2 [facility] Calcium 9.9 8.5 - 10.5 mg/dl [facility] Calculated Calcium 9.6 8.5 - 10.5 mg/dl [facility] Glucose, Serum 88 70 - 100 mg/dl [facility] Fasting? No [facility] 11/01/2006 12:5 0 EDT 11/01/2006 12:52 EDT Jimmy Burleson MD CHEMISTRY & BLOOD GAS ORDERABLES Final Result Performing Organization Address [facility] de Phone Number [facility] [address] [place] [address] documented in this encounter Visit Diagnoses Not on filedocumented in this encounter Care Teams Shop Tailor Apprentice Relationship Specialty Start Date End Date Jeanna Smith, LUIS [facility] [address] [place] [address] PCP - General 06/14/08 08/21/21 documented as of this encounter
--- OUTSIDE RECORDS SUMMARY | 2024-02-21 13:29 | XMS_ITS | Encounter Summary ---
Author Organization [facility] Address [address] [place] [address] Care Team Providers Care Engine Lathe Set Up Operator Tool Name Role Phone Jeanna Smith NP Primary Care Provider [phone] Reason for Referral * Other Type (Routine) - Closed Specialty Diagnoses / Procedures [facility] Referred To Contact Diagnoses Psoriatic arthritis ([facility]) Jimmy Burleson Chi, MD Phone: tel: fax: Referral ID Status Reason Start Date Expiration Date V isits Requested Visits Authorized [id number] Closed Other 04/07/2010 1 1 Question Answer Medication to be Prior Authorized: humira 40 mg sq q 14 days for Psoriatic arthritis; pt is failing enbrel. Comments The purpose of this consult request is to inform the scheduling staff that a medication needs to be prior-authorized before it is prescribed and/or administered. Reason for Visit * Reason Comments Follow-up Encounter Details Date Type Department Care Team ([facility] st Contact Info) Description 04/07/2010 8:30 EST Office Visit [facility] Rheumatology & Immunology - [address] [address] Jimmy Burleson Chi, MD [address] [place] [address], [address] [place] [address] Psoriatic arthritis ([facility]) ([facility]); Psoriasis; Osteoarthritis cervical spine; Encounter for long-term (current) use of other medications; Diabetes mellitus ([facility]) ([facility]) Social History Tobacco Use Types Packs/Day [...] Sign Reading Time Taken Comments Blood Pressure 120/76 04/07/2010912 EST Pulse 84 04/07/2010 09 EST Temperature - - Respiratory Rate - - Oxygen Saturation - - Inhaled Oxygen Concentration - - Weight 54.4 kg (120 lb) 04/07/2010 09 EST Height - - Body Mass Index 21.95 09/02/2009 1511 EDT documented in this encounter Patient Instructions * Patient Instructions* Jimmy Burleson Chi, MD - 04/07/2010 9:37 EST Will get [facility] approval documented in this encounter Ordered Prescriptions Prescription Sig Dispense Quantity Refills Last Filled Start Date End Date methotrexate 2.5 mg tabletIndications:P soriatic arthritis ([facility]),Psoriasis Take 3 Tabs by mouth once a week. 15 Tab 4 04/07/2010 09/17/2010 celecoxib (CELEBREX) 100 mg capsuleIndications: Psoriatic arthritis ([facility]),Osteoarth ritis cervical spine Take 1 Cap by mouth 2 times daily. 60 Cap 5 04/07/2010 02/03/2011 documented in this encounter Progress Notes * Jimmy Burleson Chi, MD - 04/07/2010 0916 EST Images from the original note were not included. Subjective: Patient ID: Shereen Vega is an 59 y.o. female. Chief Complaint Patient presents with ??? Follow-up HPI Comments: More diffuse jt pains over past month. Bilat knee pains and stiffness without swelling; L knee [place]. Knuckles of both hands have been burning constantly; constant aching in both upper arms and shoulders; neck pain causing headaches; chronic low back pains; ankles and balls of both feet are painful. Mild swelling in the mcp jts of hands. Sugars have been high in 200's. Will be doing a fasting glucose in 1 week for her PCP. Forgot to increase celebrex from 100 to 200 mg qd. Knees are very stiff after prolonged sitting, making it difficult to walk after sitting. Patient Active Problem List Diagnoses Code ??? [...] Smoking status: Never Smoker ??? Smokeless tobacco: Not on file ??? Alcohol Use: No Current outpatient prescriptions ordered prior to encounter Medication Sig Dispense Refill ??? Etanercept (ENBREL SURECLICK) 50 mg/mL (0.98 mL) PnIj Inject 50 mg into the skin once a week. 12 Each 1 ??? calcium carbonate (OS-MANDI) 500 mg (1,250 mg) tablet Take 1 Tab by mouth 2 times daily. ??? metformin (GLUCOPHAGE) 850 mg tablet Take 850 mg by mouth 2 times daily. ??? atenolol [...] tablet Take 1 Tab by mouth daily. levothyroxine (SYNTHROID) 100 mcg tablet; Take 100 mcg by mouth daily. celecoxib (CELEBREX) 100 mg capsule; Take 100 mg by mouth daily. Allergies Allergen Reactions ??? Quinine Other (See Comments) ??? Penicillins Hives ??? Erythromycin Upset stomach Review of Systems Constitutional: Positive for weight loss (2.5 lbs) and malaise/fatigue. Negative for fever, chills and diaphoresis. HENT: Positive for neck pain. Denies dry eyes, oral ulcers Eyes: Negative for pain. Respiratory: Positive for shortness of breath (with exertion). Negative for cough. Cardiovascular: Negative for chest pain and palpitations. Gastrointestinal: Positive for heartburn. Negative for nausea, abdominal pain, diarrhea, constipation and blood in stool. Genitourinary: Negative for dysuria, frequency and hematuria. Musculoskeletal: Positive for back pain and joint pain. Negative for myalgias. Am stiffness for 30 min Skin: Negative for rash and itching. Neg for raynauds, sun sensitive rashes, Psoriasis flaring in scalp, legs, trunk. Neurological: Positive for tingling (of hands) and headaches (due to neck). Negative for focal weakness. Shooting pains in both feet Endo/Heme/Allergies: Does not bruise/bleed easily. Psychiatric/Behavioral: Negative for depression. The patient has insomnia (due to aching). The patient is not nervous/anxious. All other systems reviewed and are negative. - See HPI Objective: BP 120/76 Pulse 84 Wt 54.432 kg (120 lb) Physical Exam Vitals reviewed. Constitutional: She is oriented to person, place, and time. No distress. Petite mid aged female, with depressed affect HENT: Head: Normocephalic. Dry membranes; edentulous Eyes: Conjunctivae and extraocular motions are normal. Pupils are equal, round, and reactive to light. Neck: No thyromegaly present. Cardiovascular: Normal rate, regular rhythm and normal heart sounds. Pulmonary/Chest: Breath sounds normal. No respiratory distress. She has no wheezes. She has no rales. Abdominal: Soft. There is no hepatomegaly. No tenderness. Musculoskeletal: A complete msk exam was done and significant findings shown on homonculus. Lymphadenopathy: She has no cervical adenopathy. Neurological: She is alert and oriented to person, place, and time. No cranial nerve deficit. Skin: Rash (psoriatic plaque at L occiput; R flank) noted. Psychiatric: Her behavior is normal. She exhibits a depressed mood. Outside labs 02/13/10: CBC normal; Vit D 22; TSH 0.14, Hgb A1c 6.9 Albumin 3.9 U/A trace protein Assessment: Plan: Shereen was seen today for follow-up. Diagnoses and associated orders for this visit: Psoriatic arthritis Flaring over past month; increased inflammation in hands Increased pain without swelling in knees, feet. Will increase celebrex, mtx doses Obtain insurance approval to switch Enbrel to Humira Recheck LFT's with lab draw at PCP - celecoxib (CELEBREX) 100 mg capsule; Take 1 Cap by mouth 2 times daily. - methotrexate 2.5 mg tablet; Take 3 Tabs by mouth once a week; with q 3 to 4 mo. CBC, CMP monitoring for toxicity. - Comprehensive Metabolic Panel (CMP); Future - Ambulatory Medication Prior Authorization Psoriasis More active according to pt Increase mtx dose; switching TNF inhibitor may help - methotrexate 2.5 mg tablet; Take 3 Tabs by mouth once a week. Osteoarthritis cervical spine Contributing to neck pain - celecoxib (CELEBREX) 100 mg capsule; Take 1 Cap by mouth 2 times daily. Encounter for long-term (current) use of other medications - Comprehensive Metabolic Panel (CMP); Future Diabetes mellitus Poorly controlled in recent months- related to psoriatic inflammation? May contribute to achiness and nerve pains in hands and feet. Will not use prednisone burst unless absolutely necessary so as not to exacerbate diabetes Barriers to learning identified: No Patient verbalizes understanding and agrees with plan Yes - documented in this encounter Plan of Treatment Scheduled Referrals Name Type Priority Associated Diagnoses Order Schedule AMB MEDICATION PRIOR AUTHORIZATION Outpatient Referral Routine Psoriatic arthritis ([facility]) ([facility]) Ordered: 04/07/2010 documented as of this encounter Visit Diagnoses Diagnosis Psoriatic arthritis ([facility]) Psoriatic arthropathy Psoriasis Other psoriasis Osteoarthritis cervical spine Cervical spondylosis without myelopathy Encounter for long-term (current) use of other medications Diabetes mellitus ([facility]) Type II or unspecified type diabetes mellitus without mention of complication, not stated as uncontrolled documented in this encounter Discontinued Medications Medication Sig Discontinue Reason Start Date End Da te levothyroxine (SYNTHROID) 112 mcg tablet Take 1 Tab by mouth daily. Dose adjustment 04/07/2010 celecoxib (CELEBREX) 200 mg capsuleIndications:Psoria tic arthritis (HCC-CMS),Osteoarthritis cervical spine Take 1 Cap by mouth daily. Error 09/02/2009 04/07/2010 celecoxib (CELEBREX) 100 mg capsule Take 100 mg by mouth daily. Reorder 04/07/2010 04/07/2010 methotrexate 2.5 mg tabletIndications:Psoriat ic arthritis (HCC-CMS),Osteoarthritis cervical spine Take 2 Tabs by mouth once a week. 03/03/2010 04/07/2010 documented as of this encounter Historical Medications * This list may reflect changes made after this encounter. celecoxib (CELEBREX) 100 mg capsule Take 100 mg by mouth daily. 04/07/2010 04/07/2010 levothyroxine (SYNTHROID) 100 mcg tablet Take 100 mcg by mouth daily. 09/17/2010 added in this encounter Care Teams Engine Lathe Set Up Operator Tool Relationship Specialty Start Date End Date Jeanna Smith NP [facility] [address] [place] [address] PCP - General 06/14/08 08/21/21 documented as of this encounter
--- OUTSIDE RECORDS SUMMARY | 2024-02-21 13:29 | XMS_ITS | Encounter Summary ---
Author Organization [facility] Address [address] [place] [address] Care Team Providers Care Insurance Sales Producer Name Role Phone Jeanna Smith NP Primary Care Provider [phone] Encounter Details Date Type Department Care Team (Late st Contact Info) Description 08/30/2009 Abstract Used for ABSTRACTING Data [phone] Jeanna Smith NP [facility] [address] [place], [place] [id number] Social History Tobacco Use Types Packs/Day Years [...] may reflect changes made after this encounter. atenolol (TENORMIN) 25 mg tablet Take 1 Tab by mouth daily. 04/07/2010 added in this encounter Care Teams Insurance Sales Producer Relationship Specialty Start Date End Date Jeanna Smith NP [facility] [address] [place], [place] [phone] PCP - General 06/14/08 08/21/21 documented as of this encounter
--- OUTSIDE RECORDS SUMMARY | 2024-02-21 13:29 | XMS_ITS | Encounter Summary ---
Author Organization [facility] Address [address] [place] [address] Care Team Providers Care Family Services Manager Name Role Phone Jeanna Smith NP Primary Care Provider [phone] Encounter Details Date Type Department Care Team (Late st Contact Info) Description 05/18/2007 Before PRISM Converted Visit (Maple) [facility] - Maple conversion [address] [place] [address] Jimmy Burleson Chi, MD [address] [facility], [address] [place] [id number] Social History Tobacco Use Types Packs/Day Years Used Date Smoking Tobacco: Never Assessed Comments Unknown Sex and Gender Information Value Date Recorded Sex Assigned at Not on file Legal Sex Female 18:27 EST Gender Identity Not on file Sexual Orientation Not on file documented as of this encounter Progress Notes * Jimmy Burleson Chi, MD - 11/19/2008 1143 EDT DIVISION OF RHEUMATOLOGY PROGRESS/FOLLOWUP NOTE - [...] episodes of her legs getting weak as shestands at the sink doing dishes and episodic shooting pains from the left buttock into the left thigh. She alsogets shooting pains throughout both hands and wrists which she tries to keep flexible bycrocheting. 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 MEDICATIONS 1. Paxil 20 mg daily. 2. Synthroid 112 mcg daily. 3. Glucophage 500 mg b.i.d. 4. Baby aspirin 81 mg daily. 5. Lovastatin 40 mg daily. 6. Atenolol 25 mg daily. 7. Paxil 10 mg daily. 8. Omeprazole 20 mg daily. EXAM Pleasant, petite, middle-aged female in no distress. Height 5'2-1/4, weight 121 pounds, blood pressure 118/70, pulse [...] motion in all directions. Pain at both shoulderswith active internal range rotation. Right shoulder crepitus on passive range of motion. Left shoulder had pain with passive external rotation which was otherwise intact. Thoracic and upper lumbar spines were tender to deep palpation. Elbows with no swelling or tenderness. Slight synovial thickening at the left wrist which was tender with decreased flexion and extension. Right wrist had no swelling or tenderness. There was synovial thickening and bony enlargements at bilateral second and third MCP joints. There were also diffuse bony enlargements of the PIP and DIP joints of both hands, alongwith thickening of the flexor tendons at numerous [...] component, most likely secondary to lumbar and thoracic spine degenerative disk disease, but cannot rule out compression fractures. 4. Underlying osteoarthritis in the spine attributing to chronic pain. PLAN Patient did not want to retry a higher dose of injectable Methotrexate. Patient states she currently has insurance coverage for Enbrel whichwe will retry her on since she had formerly been on it withgood results. We will get an updated PPD [...] Jimmy Burleson MD - ZAINAB Job ID: [id number] Doc ID: [id number] cc: Jeanna Smith NP documented in this encounter Plan of Treatment Not on file documented as of this encounter Visit Diagnoses Not on filedocumented in this encounter Care Teams Family Services Manager Relationship Specialty Start Date End Date Jeanna Smith NP [facility] [address] [place] [address] PCP - General 06/14/08 08/21/21 documented as of this encounter
--- OUTSIDE RECORDS SUMMARY | 2024-02-21 13:29 | XMS_ITS | Encounter Summary ---
Author Organization [facility] Address [address] [place] [address] Care Team Providers Care Chief Accounting Officer Name Role Phone Unavailable Primary Care Provider Unavailabl e Encounter Details Date Type Department Care Team (Late st Contact Info) Description 10/02/2002 16:52 EDT Hospital Encounter [facility] - Other [address] [place] [address] [place] [address] Social History Tobacco Use Types Packs/Day Years [...]
--- OUTSIDE RECORDS SUMMARY | 2024-02-21 13:29 | XMS_ITS | Encounter Summary ---
Author Organization [facility] Address [address] [place] [address] Care Team Providers Care Odd Shoe Examiner Name Role Phone Jeanna Smith NP Primary Care Provider [phone] Encounter Details Date Type Department Care Team (Late st Contact Info) Description 09/04/2002 Results Only [facility] - [address] [id number] Summer Henderson MD [address] [place] [place] [address] [place] [address] Social History Tobacco Use Types Packs/Day Years [...] Procedure Name Priority Date/Time Associated Diagnosis Comments COMPLETE BLOOD COUNT Routine 09/04/2002 13:22 EDT documented in this encounter Results * HEMAGRAM (09/04/2002 13:22 EDT) WBC 10.20 4.0 - 12.4 K/cmm [facility] RBC 4.25 3.86 - 5.04 M/cmm [facility] Hemoglobin 13.8 11.6 - 15.2 gm/dl [facility] HCT 40.4 34.9 - 44.4 % [facility] MCV 95 81 - 98 fl [facility] MCH 32.4 26.7 - 33.3 pg [facility] MCHC 34.2 32.1 - 35.9 gm/dl [facility] PLT 201 141 - 320 K/cmm [facility] RDW-CV 13.5 11.7 - 14.6 % [facility] 09/04/2002 13:2 2 EDT 09/04/2002 13:23 EDT us Summer Henderson MD HEMATOLOGY & PF4 ORDERABLES Marita garcia Result [facility] [address] [place] [address] documented in this encounter Visit Diagnoses Not on filedocumented in this encounter Care Teams Odd Shoe Examiner Relationship Specialty Start Date End Date Jeanna Smith, LUIS [facility] [address] [place], [place] [address] PCP - General 06/14/08 08/21/21 documented as of this encounter
--- OUTSIDE RECORDS SUMMARY | 2024-02-21 13:29 | XMS_ITS | Encounter Summary ---
Author Organization [facility] Address [address] [place] [address] Care Team Providers Care Supervisor Testing Name Role Phone Jeanna Iglesias NP Primary Care Provider [phone] Encounter Details Date Type Department Care Team (Late st Contact Info) Description 01/16/2003 Results Only [facility] - Maple conversion [address] [place] [address] Jeanna Iglesias, OWNER/OPERATOR [facility] [address] [place], [place] [phone] Social History Tobacco Use Types Packs/Day Years [...] Priority Date/Time Associated Diagnosis Comments CYTOPATHOLOGY Routine 01/16/2003 0:00 EST documented in this encounter Results * CYTOPATHOLOGY (01/16/2003 0:00 EST) Pathology Report: CYTOPATHOLOGY REPORT Reports generated via electronic interface contain original data; however they are lacking the format of the original report. Caution should be taken when reading/interpreti ng unformatted reports. Name: ? ELEAZAR SORIANO ? Accession #: ? [id number] : ? 1950 (Age: 52) ??F ?Collect Date: ? 01/16/2003 Location: ? [facility] ? Receive Date: ? 01/19/2003 Provider: ?JEANNA IGLESIAS OWNER/OPERATOR Copy to: ? Specimen/Source: ?ThinPrep Pap Test, Cervix/Endocervix Last Menstrual Period: ? 15 + years ? SPECIMEN ADEQUACY ? Satisfactory for Evaluation - assessment of transformation zone component not applicable ( e.g. atrophy, vaginal sample, hysterectomy) GENERAL CATEGORIZATION ? Negative for Intraepithelial Lesion or Malignancy ? Document reviewed and electronically signed by: ? Le Adkins, RADHA(ASCP)(IAC) ? Report Date: ??01/23/2003 15:44 End of Report [facility] 01/16/2003 01/19/2003 Jeanna Iglesias NP PATHOLOGY ORDERABLES Final Resu lt [facility] [address] [place] [address] documented in this encounter Visit Diagnoses Not on filedocumented in this encounter Care Teams Supervisor Testing Relationship Specialty Start Date End Date Jeanna Iglesias NP [facility] [address] [place], [place] [phone] PCP - General 06/14/08 08/21/21 documented as of this encounter
--- OUTSIDE RECORDS SUMMARY | 2024-02-21 13:29 | XMS_ITS | Encounter Summary ---
Author Organization [facility] Address [address] [place] [address] Care Team Providers Care Biomedical Specialist Name Role Phone Jeanna Smith NP Primary Care Provider [phone] Encounter Details Date Type Department Care Team (Late st Contact Info) Description 03/18/2009 10:02 EST - 03/18/2009 23:59 EST Hospital Encounter [facility] Rheumatology & Immunology - [address] [address] Jimmy Burleson Chi, MD [address] [facility], [address] [place] [address] Discharge Disposition: Auto Discharge Social History Tobacco [...] documented in this encounter Progress Notes * Inpatient, Physician - 03/27/2009 1146 EST * Jimmy Burleson Chi, MD - 03/18/2009 0000 EST DIVISION OF RHEUMATOLOGY PROGRESS/FOLLOWUP NOTE - 03/18/2009 PROBLEM: Psoriatic arthritis/psoriasis. CHIEF COMPLAINT: Increased neck and low back pains. HISTORY OF PRESENT ILLNESS: We had sent a letter to the patient in October informing her of persistent elevation in liver enzymes and she was advised to decrease methotrexate from 3 to 2 tablets or5 mg once a week, which she did. She has had intermittent chest pains and tightness for which she underwent a stress test and then underwent cardiac catheterization, which showed 80% blockage of onesmall vessel which did not warrant surgery. She has had achiness in her neck for several months andthis has increased on the right side of her neck over several weeks so that she has trouble rotating her head to the right due to stiffness and pain. She has also had increased right-sided low back pain exacerbated by prolonged sitting and prolonged weightbearing over [...] episodic headaches associated with neck pains, muscle weaknessin the legs, trouble sleeping because of neck discomfort, skin rash around the Enbrel injection sites which is localized, pruritus of dry skin psoriasis has been controlled. PAST MEDICAL HISTORY: Psoriatic arthritis; psoriasis; osteoarthritis of fingers and cervical spine;hypercholesterolemia; low bone mass; hypothyroidism; adult- onset diabetes mellitus; quinine-inducedthrombocytopenia in 2002; history of plantar fasciitis. MEDICATIONS: [...] Right- sided paraspinal muscle tenderness in the lumbar region. Diffuse bony enlargements of the PIP and DIP joints as well as right second and thirdMCP joints without focal tenderness. No effusions in the [...] is currently on; liver enzymes are improved since methotrexate dose was decreased in October. 4. Increased right-sided neck and low back pain over the past several months - most likely secondary to underlying degenerative disk disease and osteoarthritis flaring. [...] Jimmy Burleson MD - RASHAWN Job ID: SM Doc ID: [id number] Ext Doc ID: [id number] cc: Jeanna Smith NP documented in this encounter Miscellaneous Notes * Scanned Note-Null - Inpatient, Physician - 03/27/2009 1145 EST documented in this encounter Plan of Treatment Not on file documented as of this encounter Procedures Procedure Name Priority Date/Time Associated Diagnosis Comments L SPINE 2-3 VIEWS 03/18/2009 11: 56 EST THORACIC SPINE 2-3 VIEWS 03/18/2009 11:55 EST CERVICAL SPINE 2-3 VIEWS 03/18/2009 11:55 EST documented in this encounter Results * L SPINE 2-3 VIEWS (03/18/2009 11:56 EST) Anatomical Region Laterality Modality Other 03/18/2009 11:5 6 EST 03/18/2009 13:57 EST Narrative 03/18/2009 13:57 EST L SPINE 2-3 VIEWS ??Mar 18, 2009 11:56:00 AM Signs and Symptoms/Comments: ??Chronic neck and low and mid back pains. Findings: Two views of the lumbosacral spine demonstrate intact pedicles and sacroiliac joints. Femoral joint spaces are normal. There is mild aortic vascular calcification. There is T10-T11 disc space narrowing and calcification with anterior osteophyte formation. ?? Impression colon fairly unremarkable examination of the lumbosacral spine. Procedure Note 03/18/2009 L SPINE 2-3 VIEWS Mar 18, 2009 11:56:00 AM Signs and Symptoms/Comments: Chronic neck and low and mid back pains. Findings: Two views of the lumbosacral spine demonstrate intact pedicles and sacroiliac joints. Femoral joint spaces are normal. There is mild aortic vascular calcification. There is T10-T11 disc space narrowing and calcification with anterior osteophyte formation. Impression colon fairly unremarkable examination of the lumbosacral spine. Jimmy Burleson MD [facility] DI[facility] IMAGING ORDERABLE S Final Result * THORACIC SPINE 2-3 VIEWS (03/18/2009 11:55 EST) Anatomical Region Laterality Modality Other 03/18/2009 11:5 5 EST 03/18/2009 13:06 EST Narrative 03/18/2009 13:06 EST THORACIC SPINE 2-3 VIEWS ??Mar 18, 2009 11:55:00 AM Signs and Symptoms/Comments: < Chronic neck and low and mid back pains. > Comparison: May 18, 2007 Findings: AP and lateral views of the thoracic spine were obtained. There is mild kyphosis in the thoracic spine unchanged from the comparison study. Mild scoliosis convex to the left is present in the upper thoracic spine, also stable. There is multilevel degenerative disc disease with disc space narrowing and osteophyte formation. The vertebral body heights are preserved. There is no significant change noted since comparison imaging. Impression: No significant change in degenerative changes in the thoracic spine. Procedure Note 03/18/2009 THORACIC SPINE 2-3 VIEWS Mar 18, 2009 11:55:00 AM Signs and Symptoms/Comments: < Chronic neck and low and mid back pains. > Comparison: May 18, 2007 Findings: AP and lateral views of the thoracic spine were obtained. There is mild kyphosis in the thoracic spine unchanged from the comparison study. Mild scoliosis convex to the left is present in the upper thoracic spine, also stable. There is multilevel degenerative disc disease with disc space narrowing and osteophyte formation. The vertebral body heights are preserved. There is no significant change noted since comparison imaging. Impression: No significant change in degenerative changes in the thoracic spine. Jimmy Burleson MD [facility] DIAGNOSTIC IMAGING ORDERABLE S Final Result * CERVICAL SPINE 2-3 VIEWS (03/18/2009 11:55 EST) Anatomical Region Laterality Modality Other 03/18/2009 11:5 5 EST 03/18/2009 15:55 EST Narrative 03/18/2009 15:55 EST CERVICAL SPINE SERIES March 18, 2009 11:55:00 AM Signs and Symptoms: ?? Chronic neck and low and mid back pains. Comparison: May 18, 2007. Findings: Open mouth odontoid, AP and lateral (including swimmer's) views of the cervical spine were obtained. Craniocervical and atlantoaxial alignment are anatomic. No maria esther or retrolisthesis is identified. Spondylotic changes are demonstrated throughout the cervical spine, most severe at C5-C6. This have progressed slightly since the prior study. Facet joint hypertrophy is demonstrated at several levels, most prominently at C2-C3 and C3-C4 as seen on the AP films. There are small calcifications in the soft tissues lateral to the cervical spine on the AP view. These likely reflect mild carotid bifurcation atherosclerosis. Procedure Note 03/18/2009 CERVICAL SPINE SERIES March 18, 2009 11:55:00 AM Signs and Symptoms: Chronic neck and low and mid back pains. Comparison: May 18, 2007. Findings: Open mouth odontoid, AP and lateral (including swimmer's) views of the cervical spine were obtained. Craniocervical and atlantoaxial alignment are anatomic. No maria esther or retrolisthesis is identified. Spondylotic changes are demonstrated throughout the cervical spine, most severe at C5-C6. This have progressed slightly since the prior study. Facet joint hypertrophy is demonstrated at several levels, most prominently at C2-C3 and C3-C4 as seen on the AP films. There are small calcifications in the soft tissues lateral to the cervical spine on the AP view. These likely reflect mild carotid bifurcation atherosclerosis. Jimmy Burleson MD IMG DIAGNOSTIC IMAGING ORDERABLE S Final Result documented in this encounter Visit Diagnoses Not on filedocumented in this encounter Care Teams Biomedical Specialist Relationship Specialty Start Date End Date Jeanna Smith NP [facility] [address] [place] [address] PCP - General 06/14/08 08/21/21 documented as of this encounter
--- OUTSIDE RECORDS SUMMARY | 2024-02-21 13:29 | XMS_ITS | Encounter Summary ---
Author Organization [facility] Address [address] [place] [address] Care Team Providers Care Insurance Investigator Name Role Phone Jeanna Smith CHILD DAYCARE WORKER Primary Care Provider [phone] Encounter Details Date Type Department Care Team (Late st Contact Info) Description 08/23/2006 Results Only [facility] - [address] [address] Criss Núñez, CHILD DAYCARE WORKER [address] [place] [phone] Social History Tobacco Use Types Packs/Day Years [...] Priority Date/Time Associated Diagnosis Comments CYTOPATHOLOGY Routine 08/23/2006 0:00 EDT documented in this encounter Results * CYTOPATHOLOGY (08/23/2006 0:00 EDT) Pathology Report: CYTOPATHOLOGY REPORT Reports generated via electronic interface contain original data; however they are lacking the format of the original report. Caution should be taken when reading/interpreti ng unformatted reports. Name: ? ELEAZAR SORIANO ? Accession #: ? [id number] : ? 1950 (Age: 56) ??F ?Collect Date: ? 08/23/2006 Location: ? [facility] ? Receive Date: ? 08/26/2006 Provider: ?CRISS NÚÑEZ BOOK CANVASSER Copy to: ? Specimen/Source: ?ThinPrep Pap Test, Cervix/Endocervix, processed on [employer] Imaging System, with manual evaluation Last Menstrual Period: ? 30 + years Hormonal/Contracep tive Status: ? Tubal ligation: at age 22 ? SPECIMEN ADEQUACY ? Satisfactory for Evaluation - transformation zone component present GENERAL CATEGORIZATION ? Negative for Intraepithelial Lesion or Malignancy ? Document reviewed and electronically signed by: ? RADHA Swanson(ASCP) ? Report Date: ??09/01/2006 15:57 End of Report [facility] 08/23/2006 08/26/2006 us Criss Núñez CHILD DAYCARE WORKER PATHOLOGY ORDERABLES Final Res ult [facility] [address] [place] [address] documented in this encounter Visit Diagnoses Not on filedocumented in this encounter Care Teams Insurance Investigator Relationship Specialty Start Date End Date Jeanna Smith NP [facility] [address] [place] [address] PCP - General 06/14/08 08/21/21 documented as of this encounter
--- OUTSIDE RECORDS SUMMARY | 2024-02-21 13:29 | XMS_ITS | Encounter Summary ---
Author Organization [facility] Address [address] [place] [address] Care Team Providers Care Engine Cleaner Name Role Phone Jeanna Smith NP Primary Care Provider Encounter Details Date Type Department Care Team (Late st Contact Info) Description 11/01/2006 Before PRISM Converted Visit (Maple) [facility] - Maple conversion [address] [place] [address] Jose Lim MD [address] [place] [id number] Social History Tobacco Use Types Packs/Day Years Used Date Smoking Tobacco: Never Assessed Comments Unknown Sex and Gender Information Value Date Recorded Sex Assigned at Not on file Legal Sex Female 18:27 EST Gender Identity Not on file Sexual Orientation Not on file documented as of this encounter Progress Notes * Jose Lim - 12/30/2008 0119 EST DIVISION OF RHEUMATOLOGY PROGRESS/FOLLOWUP NOTE - 11/01/2006 REASON FOR APPOINTMENT: Followup of psoriatic arthritis. SUBJECTIVE: The patient is a 56-year-old female who has been followed in the Rheumatology Clinic for her psoriatic arthritis. The last time the patient was evaluated was back in 2004 and, at that time, she was on Enbrel as well as diclofenac and doing quite well. She unfortunately reports now that she was forced to stop her Enbrel due to financial reasons and difficulty with insurance. She says that, over the past two years, she has had progressive joint pains in the shoulders, elbows, wrists, hands, knees, ankles and toes and has been controlling these only with the diclofenac twice a day aswell as ibuprofen 800 mg once a day. She reports that she is having greater than four hours of morning stiffness a day and that this is significantly worse than how she was doing when she was on Enbrel. The patient also states that she is having significant lower back pain and is forced to sit on apillow because of this pain. She also has difficulty sleeping that she relates to pain in her neck and upper back. She also says that her left knee has been bothering her significantly and that, occasionally, she feels like it will pop out. She is scared that this will cause her to fall, althoughshe has not fallen to date. Additionally, the patient has new symptomatology that is fairly concerning. She reports a 10-pound weight loss over the past 2 months and this has been accompanied by 2-3 months of dysphagia. She reports that when she is trying to eat, she has very limited ability to swallow and has to chew her food significantly in order to get it down. She also describes a choking sensation that has occasionally caused her to vomit. She reports today that she made a milkshake last night and was unable to swallow that. She has been evaluated by her primary care physicianfor this and referred to Gastroenterology and tells me that she has an upper endoscopy planned. Additionally, she had blood in her stool found on physical exam, although she has not noticed this grossly. She will have a colonoscopy at thesame time as herEGD. The patient has a longstanding history of osteoporosis. Her last DXA scan was back in 2000, and shehas been on Fosamax as well as Evista in the past for her bones. She says that she has not been on anything now since 2004 and has not been taking calcium or vitamin D supplementation. She denies anyheight loss or any vertebral pain. The patient also reports that her psoriasis, which was quite well controlled while she was on Enbrel, has been bothering progressively over the past couple of years. She has not been on any skin medications for this and, when asked about prednisone, says she has not taken that for many years. It isher hope today to be put on another medication that will control both her arthritic symptoms and her skin changes. REVIEW OF SYSTEMS: A full 10-point review of systems was taken and documented on the chart. It is notable for the following: The patient admits to worsening fatigue as well as the weight loss as mentioned above. She reports that she has chronic, dry eyes but deniesdry mouth. She denies any oral ulcers. She denies any chest pain. Occasionally, has palpitations and also feels short of breath with her fatigue. She denies any diarrhea or constipation. She admits to numbness and tingling in the thumb and first two fingers of her left hand and says she has a history of carpal tunnel there. She denies any dysuria or hematuria. She admits to trouble sleeping secondary to pain. She denies any alopecia or Raynaud's. OBJECTIVE: Blood pressure is 110/60, weight 111 pounds. Her height is 62-1/4 inches, which is unchanged in the past 2 years. She did not fill out her pain rating tool. In general, she is a thin, bordering on frail woman who looks older than her stated age. She is not in any acute distress. HEENT: Her sclerae are anicteric. Her conjunctivae are not injected. Her oropharynx is clear. There are no mucosal ulcers seen. Neck: No supraclavicular or cervical lymphadenopathy. Lungs: Clear to auscultation bilaterally. No wheezes, rales or rhonchi. Cardiovascular: Regular rate and rhythm. No murmurs, rubs or gallops. No carotid bruits. Abdomen: Soft and nontender to deep palpation. Bowel sounds are present. I did not appreciate any organomegaly. Musculoskeletal: Full joint exam of the neck, shoulders, elbows, wrists, hands, back, hips, knees, ankles and toes was performed evaluating for deficits in range of motion as well as warmth, tenderness, erythema, swelling or any anatomic deformities. The following abnormalities were noted: The patient had difficulty with left lateralgaze on range of motion testing of her neck. She could not look to her left past 20 degrees. She has range of motion limited by pain on abduction of her shoulders, although she was able to raise these over her head. There was tenderness over the shouldersas well as the elbows and there was mild swelling noted over the left wrist as well as accompanying decreased flexion. She has a positive Tinel on the left. There was tenderness over the MCPs throughout as well as the second and third PIP and third and fourth DIP on the left. On the right, there was tenderness over the second and third MCPs. I could not identify any swelling. There was some bony enlargement over the small joints of her hands. Range of motion testing of her hips was full and painless. Shedid have tenderness over the SI joints of her back, there is no tenderness over the vertebral bodies on percussion. Her knees were cool. There was no abnormality on range of motion. Her ankles were tender on palpation as well as she identified significant tenderness with eversion and inversion of both ankles. There was no obvious effusion. She had tenderness in her MTPs as well as mild thickeningon the right and left foot throughout. LABORATORY: There are no labs for evaluation, to date. The patient does say that she was checked for anemia at her last physical in August, but she does not have any labs to review. ASSESSMENT: The patient is a 56-year-old female with a longstanding history of psoriatic arthritis who has really been on nothing but nonsteroidal therapy for the past 2 years. She had previously hadan excellent response to Enbrel but, due to financial restraints, has been unable to take this medication. Clearly, as evidenced by her exam and her story today, she is not doing well in regards to her arthritis. She is having prolonged morning stiffness and significant amount of pain that is affecting her function. In addition, she is complaining of weight loss as well as dysphagia, and this is currently being worked up by her club director. Additionally, she has been diagnosed with osteoporosis but has not been on medication for this for more than a year and has not had a followup DXA scan in the last 6 years. PLAN: 1. In regards to her arthritis, we have recommended that the patient begin a small dose of prednisone to help quiet her inflammation acutely. Understanding that she does have diabetes, we recommendeda dose of 5 mg a day or 2.5 mg if she feels more comfortable. I have given her a prescription for this, and she has agreed to take this and follow her sugars closely. Additionally, we have recommended that she begin methotrexate. We will try subcutaneous injections and I wrote her a prescription of0.3 mL weekly. She has been on methotrexate in the past, but it was stopped secondary to GI intolerance. I explained to her that side effects of methotrexate include leukopenia, hepatotoxicity and pulmonary toxicity and alopecia. She has agreed to try this medication and will have her labs checked closely every 8 weeks as we begin it. I have asked her to obtain labs on today's visit so that we can safely begin this medication. 2. I agree that this patient's dysphagia is concerning and will need to be thoroughly worked up as her club director is doing. I doubt that her dysphagia could be linked directly to her arthritic disease. It may well be that the diclofenac has caused some gastritis, esophagitis or, possibly, peptic ulcer disease, which could be contributing to this physical exam finding of blood in her stool. We have recommended that she stop taking ibuprofen as well as to wean off the diclofenac once the prednisone has been started. 3. We will follow up with this patient again in 3 months. I saw this patient together with Dr. Jimmy Burleson. There were no barriers to learning. Dr. Burleson agrees with the findings and plan of care as outlined above. Edited and Signed by Jimmy Burleson MD 11/06/2006 11:52 Reviewed by Jose Lim MD 11/05/2006 10:21 Fabienne Dash, [facility] Jimmy Burleson MD Dictated by: Jose Lim MD Jimmy Burleson MD -Jose Lim MD -ZAINAB Job ID: [id number] Doc ID: [id number] cc: Marina Montague MD documented in this encounter Plan of Treatment Not on file documented as of this encounter Visit Diagnoses Not on filedocumented in this encounter Care Teams Engine Cleaner Relationship Specialty Start Date End Date Jeanna Smith NP [facility] [address] [place] [id number] PCP - General 06/14/08 08/21/21 documented as of this encounter
--- OUTSIDE RECORDS SUMMARY | 2024-02-21 13:29 | XMS_ITS | Encounter Summary ---
Author Organization [facility] Address [address] [place] [address] Care Team Providers Care Safety Scientist Name Role Phone Jeanna Smith INSIDE SALES SUPERVISOR Primary Care Provider [phone] Encounter Details Date Type Department Care Team (Late st Contact Info) Description 06/18/2008 12:40 EDT - 06/18/2008 23:59 EDT Hospital Encounter [address] [address] Jimmy Burleson Chi, MD [address] [facility], [address] [place] [id number] Social History Tobacco Use Types Packs/Day Years [...] on filedocumented in this encounter Care Teams Safety Scientist Relationship Specialty Start Date End Date Jeanna Smith NP [facility] [address] [place], [place] [phone] PCP - General 06/14/08 08/21/21 documented as of this encounter
--- OUTSIDE RECORDS SUMMARY | 2024-02-21 13:29 | XMS_ITS | Encounter Summary ---
Author Organization [facility] Address [address] [place] [address] Care Team Providers Care Chemical Research Worker Name Role Phone Jeanna Smith NP Primary Care Provider [phone] Encounter Details Date Type Department Care Team (Late st Contact Info) Description 10/02/2002 Results Only Used for SCHED Conversion Only [place] [address] Social History Tobacco Use Types Packs/Day Years [...] Date/Time Associated Diagnosis Comments COMPLETE BLOOD COUNT AND DIFFERENTIAL Routine 10/02/2002 16:10 EDT documented in this encounter Results * (ABNORMAL) HEMAGRAM AND DIFFERENTIAL (10/02/2002 16:10 EDT) WBC 7.37 4.0 - 12.4 K/cmm [facility] RBC 4.09 3.86 - 5.04 M/cmm [facility] Hemoglobin 13.7 11.6 - 15.2 gm/dl [facility] HCT 39.6 34.9 - 44.4 % [facility] MCV 97 81 - 98 fl [facility] MCH 33.4(H) 26.7 - 33.3 pg [facility] MCHC 34.5 32.1 - 35.9 gm/dl [facility] PLT 244 141 - 320 K/cmm [facility] RDW-CV 13.7 11.7 - 14.6 % [facility] % Neutrophils 67.9 45.5 - 79.7 % [facility] % Lymphocytes 24.0 15.0 - 46.8 % [facility] % Monocytes 7.0 1.8 - 12.0 % [facility] % Eosinophils 0.5(L) 0.6 - 6.9 % [facility] % Basophils 0.6 0.2 - 1.4 % [facility] ABS Neutrophils 5.01 2.20 - 8.85 K/cmm [facility] ABS Lymphs 1.77 1.09 - 3.30 K/cmm [facility] ABS Monocytes 0.51 0.1 - 0.8 K/cmm [facility] ABS Eosinophils 0.03 0.03 - 0.61 K/cmm [facility] ABS Basophils 0.05 0.01 - 0.11 K/cmm [facility] Type of Diff: Automated [facility] 10/02/2002 16:1 0 EDT 10/02/2002 16:12 EDT us Fabiola Farah MD PACKAGES & DNA PROBE ORDER RANI Final Result Performing Organization Address City/State/[facility] Co de Phone Number [facility] [address] [place] [address] documented in this encounter Visit Diagnoses Not on filedocumented in this encounter Care Teams Chemical Research Worker Relationship Specialty Start Date End Date Jeanna Smith, [facility] [address] [place], [place] [phone] PCP - General 06/14/08 08/21/21 documented as of this encounter
--- OUTSIDE RECORDS SUMMARY | 2024-02-21 13:29 | XMS_ITS | Encounter Summary ---
Author Organization [facility] Address [address] [place] [address] Care Team Providers Care Community Development Coordinator Name Role Phone Jeanna Smith HEAT ENGINEERING TEACHER Primary Care Provider [phone] Reason for Visit * Reason Onset Date Comments Other 05/07/2010 OPEN BY MISTAKE Encounter Details Date Type Department Care Team (Late st Contact Info) Description 05/07/2010 Telephone [facility] Rheumatology & Immunology - [facility] [address], [place] [id number] Jimmy Burleson Chi, MD [address] [facility], [address] [place] [address] Other (OPEN BY MISTAKE) Social History Tobacco Use Types Packs/Day Years [...] encounter Miscellaneous Notes * Telephone Encounter - Rosemary Guerra - 05/07/2010 1022 EDT OPEN IN ERROR documented in this encounter Plan of Treatment Not on file documented as of this encounter Visit Diagnoses Not on filedocumented in this encounter Care Teams Community Development Coordinator Relationship Specialty Start Date End Date Jeanna Smith NP [facility] [address] [place] [address] PCP - General 06/14/08 08/21/21 documented as of this encounter
--- OUTSIDE RECORDS SUMMARY | 2024-02-21 13:29 | XMS_ITS | Encounter Summary ---
Author Organization [facility] Address [address] [place] [address] Care Team Providers Care Class A Regional Drivers Name Role Phone Unavailable Primary Care Provider Unavailabl e Encounter Details Date Type Department Care Team (Late st Contact Info) Description 05/18/2007 13:52 EDT Hospital Encounter [address] [address] Jimmy Burleson Chi, MD [address] [place] [address], [address] [place] [id number] Discharge Disposition: Auto Discharge Social History Tobacco [...] Associated Diagnosis Comments L SPINE 2-3 VIEWS 05/18/2007 15: 14 EDT CERVICAL SPINE 2-3 VIEWS 05/18/2007 15:14 EDT THORACIC SPINE 2-3 VIEWS 05/18/2007 15:09 EDT documented in this encounter Results * L SPINE 2-3 VIEWS (05/18/2007 15:14 EDT) Anatomical Region Laterality Modality Other 05/18/2007 15:1 4 EDT Narrative 08/05/2008 12:29 EDT chronic thoracic, cervical, and lumbar pain, h/o psoriatic arthritis Cervical spine, thoracic spine and the lumbar spine 05/18/2007 History: Chronic cervical, thoracic and lumbar pain, history of psoriatic arthritis, rule out compression fractures, DJD C-spine: Three views were obtained. There is dextroscoliosis of the cervical spine. There is reversal of the lordotic curve from C3 through C7. 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 This makes evaluation in the upper cervical spine difficult, the odontoid views are suboptimal. There is disc space narrowing with osteophyte formation at all levels. There is moderate facet spondylosis at all levels. The prevertebral soft tissues are normal. 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 There is scoliosis and mild to moderate degenerative disc disease and spondylosis. T-spine: AP and lateral views were obtained. There is levoscoliosis of the upper thoracic spine and there is kyphosis of the entire thoracic spine. No compression fracture is seen. There is diffuse disc space narrowing with anterior osteophyte formation, most severely involving T8-T11. Impression: Kyphoscoliosis with moderate degenerative disc disease and spondylosis Lumbar spine: AP and lateral views were obtained. Alignment is normal. No compression fracture is seen. Vertebral body heights and disc spaces are maintained. There is minimal osteophyte formation at L2-L3, L3-L4 and L4-L5. There is mild facet spondylosis most significantly involving L5-S1. Impression: Mild spondylosis Procedure Note Ismael Johnson MD - 08/05/2008 chronic thoracic, cervical, and lumbar pain, h/o psoriatic arthritis Cervical spine, thoracic spine and the lumbar spine 05/18/2007 History: Chronic cervical, thoracic and lumbar pain, history of psoriatic arthritis, rule out compression fractures, DJD C-spine: Three views were obtained. There is dextroscoliosis of the cervical spine. There is reversal of the lordotic curve from C3 through C7. 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 This makes evaluation in the upper cervical spine difficult, the odontoid views are suboptimal. There is disc space narrowing with osteophyte formation at all levels. There is moderate facet spondylosis at all levels. The prevertebral soft tissues are normal. 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 There is scoliosis and mild to moderate degenerative disc disease and spondylosis. T-spine: AP and lateral views were obtained. There is levoscoliosis of the upper thoracic spine and there is kyphosis of the entire thoracic spine. No compression fracture is seen. There is diffuse disc space narrowing with anterior osteophyte formation, most severely involving T8-T11. Impression: Kyphoscoliosis with moderate degenerative disc disease and spondylosis Lumbar spine: AP and lateral views were obtained. Alignment is normal. No compression fracture is seen. Vertebral body heights and disc spaces are maintained. There is minimal osteophyte formation at L2-L3, L3-L4 and L4-L5. There is mild facet spondylosis most significantly involving L5-S1. Impression: Mild spondylosis Jimmy Burleson MD IM DIAGNOSTIC IMAGING ORDERABLE S Final Result * CERVICAL SPINE 2-3 VIEWS (05/18/2007 15:14 EDT) Anatomical Region Laterality Modality Other 05/18/2007 15:1 4 EDT Narrative 08/05/2008 12:29 EDT chronic thoracic, cervical, and lumbar pain, h/o psoriatic arthritis Cervical spine, thoracic spine and the lumbar spine 05/18/2007 History: Chronic cervical, thoracic and lumbar pain, history of psoriatic arthritis, rule out compression fractures, DJD C-spine: Three views were obtained. There is dextroscoliosis of the cervical spine. There is reversal of the lordotic curve from C3 through C7. 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 This makes evaluation in the upper cervical spine difficult, the odontoid views are suboptimal. There is disc space narrowing with osteophyte formation at all levels. There is moderate facet spondylosis at all levels. The prevertebral soft tissues are normal. 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 There is scoliosis and mild to moderate degenerative disc disease and spondylosis. T-spine: AP and lateral views were obtained. There is levoscoliosis of the upper thoracic spine and there is kyphosis of the entire thoracic spine. No compression fracture is seen. There is diffuse disc space narrowing with anterior osteophyte formation, most severely involving T8-T11. Impression: Kyphoscoliosis with moderate degenerative disc disease and spondylosis Lumbar spine: AP and lateral views were obtained. Alignment is normal. No compression fracture is seen. Vertebral body heights and disc spaces are maintained. There is minimal osteophyte formation at L2-L3, L3-L4 and L4-L5. There is mild facet spondylosis most significantly involving L5-S1. Impression: Mild spondylosis Procedure Note Ismael Johnson MD - 08/05/2008 chronic thoracic, cervical, and lumbar pain, h/o psoriatic arthritis Cervical spine, thoracic spine and the lumbar spine 05/18/2007 History: Chronic cervical, thoracic and lumbar pain, history of psoriatic arthritis, rule out compression fractures, DJD C-spine: Three views were obtained. There is dextroscoliosis of the cervical spine. There is reversal of the lordotic curve from C3 through C7. 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 This makes evaluation in the upper cervical spine difficult, the odontoid views are suboptimal. There is disc space narrowing with osteophyte formation at all levels. There is moderate facet spondylosis at all levels. The prevertebral soft tissues are normal. 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 There is scoliosis and mild to moderate degenerative disc disease and spondylosis. T-spine: AP and lateral views were obtained. There is levoscoliosis of the upper thoracic spine and there is kyphosis of the entire thoracic spine. No compression fracture is seen. There is diffuse disc space narrowing with anterior osteophyte formation, most severely involving T8-T11. Impression: Kyphoscoliosis with moderate degenerative disc disease and spondylosis Lumbar spine: AP and lateral views were obtained. Alignment is normal. No compression fracture is seen. Vertebral body heights and disc spaces are maintained. There is minimal osteophyte formation at L2-L3, L3-L4 and L4-L5. There is mild facet spondylosis most significantly involving L5-S1. Impression: Mild spondylosis Jimmy Burleson MD IM DIAGNOSTIC IMAGING ORDERABLE S Final Result * THORACIC SPINE 2-3 VIEWS (05/18/2007 15:09 EDT) Anatomical Region Laterality Modality Other 05/18/2007 15:0 9 EDT Narrative 08/05/2008 12:29 EDT chronic thoracic, cervical, and lumbar pain, h/o psoriatic arthritis Cervical spine, thoracic spine and the lumbar spine 05/18/2007 History: Chronic cervical, thoracic and lumbar pain, history of psoriatic arthritis, rule out compression fractures, DJD C-spine: Three views were obtained. There is dextroscoliosis of the cervical spine. There is reversal of the lordotic curve from C3 through C7. 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 This makes evaluation in the upper cervical spine difficult, the odontoid views are suboptimal. There is disc space narrowing with osteophyte formation at all levels. There is moderate facet spondylosis at all levels. The prevertebral soft tissues are normal. 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 There is scoliosis and mild to moderate degenerative disc disease and spondylosis. T-spine: AP and lateral views were obtained. There is levoscoliosis of the upper thoracic spine and there is kyphosis of the entire thoracic spine. No compression fracture is seen. There is diffuse disc space narrowing with anterior osteophyte formation, most severely involving T8-T11. Impression: Kyphoscoliosis with moderate degenerative disc disease and spondylosis Lumbar spine: AP and lateral views were obtained. Alignment is normal. No compression fracture is seen. Vertebral body heights and disc spaces are maintained. There is minimal osteophyte formation at L2-L3, L3-L4 and L4-L5. There is mild facet spondylosis most significantly involving L5-S1. Impression: Mild spondylosis Procedure Note Ismael Johnson MD - 08/05/2008 chronic thoracic, cervical, and lumbar pain, h/o psoriatic arthritis Cervical spine, thoracic spine and the lumbar spine 05/18/2007 History: Chronic cervical, thoracic and lumbar pain, history of psoriatic arthritis, rule out compression fractures, DJD C-spine: Three views were obtained. There is dextroscoliosis of the cervical spine. There is reversal of the lordotic curve from C3 through C7. 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 This makes evaluation in the upper cervical spine difficult, the odontoid views are suboptimal. There is disc space narrowing with osteophyte formation at all levels. There is moderate facet spondylosis at all levels. The prevertebral soft tissues are normal. 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 There is scoliosis and mild to moderate degenerative disc disease and spondylosis. T-spine: AP and lateral views were obtained. There is levoscoliosis of the upper thoracic spine and there is kyphosis of the entire thoracic spine. No compression fracture is seen. There is diffuse disc space narrowing with anterior osteophyte formation, most severely involving T8-T11. Impression: Kyphoscoliosis with moderate degenerative disc disease and spondylosis Lumbar spine: AP and lateral views were obtained. Alignment is normal. No compression fracture is seen. Vertebral body heights and disc spaces are maintained. There is minimal osteophyte formation at L2-L3, L3-L4 and L4-L5. There is mild facet spondylosis most significantly involving L5-S1. Impression: Mild spondylosis us Jimmy Burleson MD IM DIAGNOSTIC IMAGING ORDERABLE S Final Result documented in this encounter Visit Diagnoses Not on filedocumented in this encounter
--- OUTSIDE RECORDS SUMMARY | 2024-02-21 13:29 | XMS_ITS | Encounter Summary ---
Author Organization [facility] Address [address] [place] [address] Care Team Providers Care Cargo Station Worker Name Role Phone Jeanna Smith NP Primary Care Provider [phone] Encounter Details Date Type Department Care Team (Late st Contact Info) Description 06/18/2008 Orders Only [facility] Rheumatology [facility] [address] [place], [place] [phone] Jimmy Burleson Chi, MD [address] [facility], [address] [place] [address] Social History Tobacco Use Types [...] Procedure Name Priority Date/Time Associated Diagnosis Comments CCP ANTIBODIES Routine 06/18/2008 12:54 EDT ARTHRITIS 1 Routine 06/18/2008 12:54 EDT SED RATE Routine 06/18/2008 12:54 EDT COMPLETE BLOOD COUNT AND DIFFERENTIAL Routine 06/18/2008 12:54 EDT C REACTIVE PROTEIN Routine 06/18/2008 12 :54 EDT COMPREHENSIVE METABOLIC PANEL (CMP) Routine 06/18/2008 12:54 EDT documented in this encounter Results * ARTHRITIS 1 (06/18/2008 12:54 EDT) Pathologist [facility] Anti Nuclear Ab <40 0 - 40 Dils [facility] Rheumatoid Factor <20 <20 IU/ml [facility] Blood specimen (specimen) 06/18/2008 12:54 EDT 06/18/2008 12:57 EDT us Jimmy Burleson MD IMMUNOLOGY AND SEROLOGY ORDERABL ES Final Result Performing Organization Address [facility] Co de Phone Number [facility] [address] [place] [address] * CCP ANTIBODIES (06/18/2008 12:54 EDT) Pathologist [facility] CCP Antibodies 0.59 <5.01 U/ml [place] [facility] Blood specimen (specimen) 06/18/2008 12:54 EDT 06/18/2008 12:57 EDT us Jimmy Burleson MD IMMUNOLOGY AND SEROLOGY ORDERABL ES Final Result Performing Organization Address [facility] de Phone Number [facility] [address] [place] [address] * SED. RATE:TIMOERGREN (06/18/2008 12:54 EDT) Pathologist [facility] Sed. Rate Westergren 20 0 - 30 mm/hr [facility] Blood specimen (specimen) 06/18/2008 12:54 EDT 06/18/2008 12:57 EDT us Jimmy Burleson MD HEMATOLOGY & PF4 ORDERABLES Marita l Result Performing Organization Address [facility] Co de Phone Number [facility] [address] [place] [address] * HEMAGRAM AND DIFFERENTIAL (06/18/2008 12:54 EDT) Pathologist [facility] WBC 8.03 4.0 - 12.4 K/cmm [facility] RBC 4.43 3.86 - 5.04 M/cmm [facility] Hemoglobin 14.3 11.6 - 15.2 gm/dl [facility] HCT 41.2 34.9 - 44.4 % [facility] MCV 93 81 - [address] [facility] MCH 32.3 26.7 - 33.3 pg [facility] MCHC 34.7 32.1 - 35.9 gm/dl [facility] PLT 206 141 - 320 K/cmm [facility] RDW-CV 13.9 11.7 - 14.6 % [facility] Neutrophils 48.6 45.5 - 79.7 % [facility] Lymphocytes 38.7 15.0 - 46.8 % [facility] Monocytes 8.4 1.8 - 12.0 % [facility] Eosinophils 3.9 0.6 - 6.9 % [facility] Basophils 0.4 0.2 - 1.4 % [facility] ABS Neutrophils 3.90 2.20 - 8.85 K/cmm [facility] ABS Lymphs 3.11 1.09 - 3.30 K/cmm [facility] ABS Monocytes 0.67 0.1 - 0.8 K/cmm [facility] ABS Eosinophils 0.32 0.03 - 0.61 K/cmm [facility] ABS Basophils 0.03 0.01 - 0.11 K/cmm [facility] Type of Diff: Automated [facility] Blood specimen (specimen) 06/18/2008 12:54 EDT 06/18/2008 12:57 EDT us Jimmy Burleson MD PACKAGES & DNA PROBE ORDERABLES Final Result [facility] [address] [place] [address] * C-REACTIVE PROTEIN (06/18/2008 12:54 EDT) C-Reactive Protein <0.7 <1.0 mg/dl [facility] Blood specimen (specimen) 06/18/2008 12:54 EDT 06/18/2008 12:57 EDT Jimmy Burleson MD CHEMISTRY & BLOOD GAS ORDERABLES Final Result Performing Organization Address City/[facility]/ZIP Co de Phone Number [facility] [address] [place] [address] * (ABNORMAL) COMPREHENSIVE METABOLIC PANEL (06/18/2008 12:54 EDT) Potassium 4.4 3.5 - 5.0 mEq/L [facility] Sodium 138 136 - 145 mEq/L [facility] Chloride 101 96 - 110 mEq/L [facility] CO2 26 24 - 32 mEq/L [facility] Alkaline Phosphatase 63 38 - 126 U/L [facility] Bilirubin, Total 0.5 0.2 - 1.3 mg/dl [facility] AST 54(H) 15 - 46 U/L [facility] ALT 29 9 - 52 U/L [facility] Albumin 4.9 3.4 - 4.9 g/dl [facility] Total Protein 8.7(H) 6.5 - 8.3 g/dl [facility] Creatinine 0.56(L) 0.7 - 1.5 mg/dl [facility] GFR, Calculated >60 ml/min/1.7 3m2 [facility] BUN 15 10 - 26 mg/dl [facility] Calcium 9.7 8.5 - 10.5 mg/dl [facility] Calculated Calcium 9.2 8.5 - 10.5 mg/dl [facility] Glucose, Serum 97 70 - 100 mg/dl [facility] Fasting? No [facility] Blood specimen (specimen) 06/18/2008 12:54 EDT 06/18/2008 12:57 EDT us Jimmy Burleson MD CHEMISTRY & BLOOD GAS ORDERABLES Final Result Performing Organization Address City/[facility]/ZIP Co de Phone Number [facility] [address] [place] [address] documented in this encounter Visit Diagnoses Not on filedocumented in this encounter Care Teams Cargo Station Worker Relationship Specialty Start Date End Date Jeanna Smith NP [facility] [address] [place] [address] PCP - General 06/14/08 08/21/21 documented as of this encounter
--- OUTSIDE RECORDS SUMMARY | 2024-02-21 13:29 | XMS_ITS | Encounter Summary ---
Author Organization [facility] Address [address] [place] [address] Care Team Providers Care Field Ironworker Name Role Phone Jeanna Smith NP Primary Care Provider [phone] Encounter Details Date Type Department Care Team (Late st Contact Info) Description 12/21/2007 Before PRISM Converted Visit (Maple) [facility] - Maple conversion [address] [place] [address] Jimmy Burleson Chi, MD [address] [facility], [address] [place] [phone] Social History Tobacco Use Types Packs/Day Years Used Date Smoking Tobacco: Never Assessed Comments Unknown Sex and Gender Information Value Date Recorded Sex Assigned at Not on file Legal Sex Female 18:27 EST Gender Identity Not on file Sexual Orientation Not on file documented as of this encounter Progress Notes * Jimmy Burleson Chi, MD - 09/13/2008 1668 EDT DIVISION OF RHEUMATOLOGY PROGRESS/FOLLOWUP NOTE - [...] exertion, joint pains as described above, with muscle pains in the back and neck, a.m. stiffness that can last all day, headaches associated with her neck pains, trouble sleeping, due to her neck or [...] on her scalp, otherwise no lesions elsewhere. HEENT exam revealed clear sclerae, no nasopharyngeal lesions, moist mucous membranes. Lymph node exam revealed shoddy 1.5 cm mobile nontender lymph nodes in both left and right cervical chains. No adenopathy palpable elsewhere. Lungs clear. Cardiac: Normal S1, S2, [...] protein electrophoresis negative, creatinine 0.7, albumin 4.2, AST 21, ALT 38, alk. phos. 72, WBCs 8.4, [...] etiology identified. Will monitor. Patient will notify us if adenopathy increases in severity. PLAN We will recheck labs today, consisting of serum protein electrophoresis, CBC, comprehensive metabolic panel, as well as CRP and ESR.Continue Enbrel. Patient advised to take Advil one to two tablets three times a day with food, for her current symptoms. Patient was also advised to wear better cushioned sneakers for her feet, to relieve foot pains. Routine followup in six months. P.S. Labs normal. Signed by Jimmy Burleson MD 12/29/2007 13:37 Jimmy Burleson MD - Jimmy Burleson MD - ZAIN[facility] Job ID: [id number] Doc ID: [id number] cc: Jeanna Smith NP documented in this encounter Plan of Treatment Not on file documented as of this encounter Visit Diagnoses Not on filedocumented in this encounter Care Teams Field Ironworker Relationship Specialty Start Date End Date Jeanna Smith NP [facility] [address] [place] [id number] PCP - General 06/14/08 08/21/21 documented as of this encounter
--- OUTSIDE RECORDS SUMMARY | 2024-02-21 13:29 | XMS_ITS | Encounter Summary ---
Author Organization [facility] Address [address] [place] [address] Care Team Providers Care Military Science Instructor Name Role Phone Jeanna Smith MINE ENGINEERING SUPERINTENDENT Primary Care Provider Reason for Visit * Reason Onset Date Comments Medications Refill 08/30/2009 Encounter Details Date Type Department Care Team (Late st Contact Info) Description 08/30/2009 Refill [facility] Rheumatology & Immunology - [facility] [address] [place], [place] [address] Jimmy Burleson Chi, MD [address] [facility], [address] [place] [address] Medications Refill Social History Tobacco [...] on filedocumented in this encounter Care Teams Military Science Instructor Relationship Specialty Start Date End Date Jeanna Smith NP [facility] [address] [place], [place] [address] PCP - General 06/14/08 08/21/21 documented as of this encounter
--- OUTSIDE RECORDS SUMMARY | 2024-02-21 13:29 | XMS_ITS | Encounter Summary ---
Author Organization [facility] Address [address] [place] [address] Care Team Providers Care Physician Neonatology Name Role Phone Jeanna Smith NP Primary Care Provider [phone] Reason for Visit * Reason Onset Date Comments Medications Refill 07/31/2009 Encounter Details Date Type Department Care Team (Late st Contact Info) Description 07/31/2009 Refill [facility] Rheumatology & Immunology - [facility] [address] [place], [place] [phone] Jimmy Burleson Chi, MD [address] [facility], [address] [place] [address] Medications Refill Social History Tobacco [...] Last Filled Start Date End Date methotrexate (TREXALL) 2.5 mg tablet Take 2 Tabs by mouth once a week. 8 Tab 0 08/02/2009 09/02/2009 documented in this encounter Miscellaneous Notes * Telephone Encounter - Shanta Orlando RN - 08/02/2009 7694 EDT Calling in one month supply of medication, pt aware that needs to have labs drawn within the month.Will call once labs drawn and if WNL can add refills to RX. documented in this encounter Plan of Treatment Not on file documented as of this encounter Visit Diagnoses Not on filedocumented in this encounter Care Teams Physician Neonatology Relationship Specialty Start Date End Date Jeanna Smith NP [facility] [address] [place] [address] PCP - General 06/14/08 08/21/21 documented as of this encounter
--- OUTSIDE RECORDS SUMMARY | 2024-02-21 13:29 | XMS_ITS | Encounter Summary ---
Author Organization [facility] Address [address] [place] [address] Care Team Providers Care Crop Adjuster Name Role Phone Jeanna Smith NP Primary Care Provider [phone] Reason for Visit * Reason Onset Date Comments Labs Only 03/03/2010 HAD LABS DRAWN A T [facility] PLATELETS WERE LOW. PT ? IF SHE SHOULD STAY ON ENBREL. Encounter Details Date Type Department Care Team (Late st Contact Info) Description 03/03/2010 Telephone [facility] Rheumatology & Immunology - [facility] [address] [place], [place] [address] Jimmy Burleson Chi, MD [address] [facility], [address] [place] [address] Labs Only (HAD LABS DRAWN AT [facility] IN [facility]. PLATELETS WERE LOW. PT ? IF SHE SHOULD STAY ON ENBREL. ) Social History Tobacco Use Types Packs/Day Years Used Date Smoking Tobacco: Never Assessed Comments No Sex and Gender Information Value Date Recorded Sex Assigned at Not on file Legal Sex Female 18:27 EST Gender Identity Not on file Sexual Orientation Not on file documented as of this encounter Miscellaneous Notes * Telephone Encounter - Connie Lorenzo RN - 03/03/2010 1314 EST Notified pt R/T MD response. She is not taking any sulfa medications and verbalized understanding that she shouldn't R/T being on MTX. She will repeat labs end of February. Lab orders sent to [facility]. * Telephone Encounter - Jimmy Burleson Chi, MD - 03/03/2010 1248 EST She has mildly decreased platelet count. I can't say that Enbrel is responsible; there may be some effect from methotrexate. She should not stop any medicine. She should not be on Bactrim or other Sulfa antibiotic that can interact with methotrexate and cause changes in the blood. Get repeat labs the end of February. * Telephone Encounter - Connie Lorenzo RN - 03/03/2010 1027 EST Pt concerned about abnormal labs and whether she she be on her Enbrel right now. I've put most recent labs on your desk. documented in this encounter Plan of Treatment Not on file documented as of this encounter Visit Diagnoses Diagnosis Psoriatic arthritis ([facility]) Psoriatic arthropathy Encounter for long-term (current) use of other medications Other abnormal clinical finding documented in this encounter Care Teams Crop Adjuster Relationship Specialty Start Date End Date Jeanna Smith NP [facility] [address] [place] [address] PCP - General 06/14/08 08/21/21 documented as of this encounter
--- OUTSIDE RECORDS SUMMARY | 2024-02-21 13:29 | XMS_ITS | Encounter Summary ---
Author Organization [facility] Address [address] [place] [address] Care Team Providers Care Carburetor Specialist Name Role Phone Jeanna Smith NP Primary Care Provider [phone] Reason for Visit * Reason Onset Date Comments Medications Refill 09/02/2009 Enbrel surecl ick 50 mg/ml. Inject into skin once weekly Encounter Details Date Type Department Care Team (Late st Contact Info) Description 09/02/2009 Refill [facility] Rheumatology & Immunology - [facility] [address] [place], [place] [id number] Jimmy Burleson Chi, MD [address] [place] [address], [address] [place] [address] Medications Refill (Enbrel sureclick 50 mg/ml. Inject into skin once weekly) Social History Tobacco Use Types Packs/Day Years Used Date Smoking Tobacco: Never Assessed Comments No Sex and Gender Information Value Date Recorded Sex Assigned at Not on file Legal Sex Female 18:27 EST Gender Identity Not on file Sexual Orientation Not on file documented as of this encounter Ordered Prescriptions Prescription Sig Dispense Quantity Refills Last Filled Start Date End Date Etanercept (ENBREL SURECLICK) 50 mg/mL (0.98 mL) PnIj Inject 50 mg into the skin once a week. 12 Each 1 09/10/2009 05/14/2010 Etanercept (ENBREL SURECLICK) 50 mg/mL (0.98 mL) PnIj Inject 50 mg into the skin once a week. 4 Syringe 6 09/02/2009 09/10/2009 documented in this encounter Plan of Treatment Not on file documented as of this encounter Visit Diagnoses Not on filedocumented in this encounter Discontinued Medications Medication Sig Discontinue Reason Start Date End Da te Etanercept (ENBREL SURECLICK) 50 mg/mL (0.98 mL) PnIj Inject 50 mg into the skin once a week. Reorder 09/02/2009 Etanercept (ENBREL SURECLICK) 50 mg/mL (0.98 mL) PnIj Inject 50 mg into the skin once a week. Reorder 09/02/2009 09/10/2009 documented as of this encounter Care Teams Carburetor Specialist Relationship Specialty Start Date End Date Jeanna Smith NP [facility] [address] [place] [address] PCP - General 06/14/08 08/21/21 documented as of this encounter
--- OUTSIDE RECORDS SUMMARY | 2024-02-21 13:29 | XMS_ITS | Encounter Summary ---
Author Organization [facility] Address [address] [place] [address] Care Team Providers Care Life Skills Educator Name Role Phone Jeanna Smith MARKETING ACCOUNT EXECUTIVE Primary Care Provider [phone] Encounter Details Date Type Department Care Team (Late st Contact Info) Description 03/03/[address] Orders [address] [facility] Rheumatology & Immunology - [facility] [address] [place], [place] [id number] Connie Lorenzo RN Psoriatic arthritis ([facility] ([facility] Encounter for long-term (current) use of other medications; Other abnormal clinical finding Social History Tobacco Use Types Packs/Day Years [...] this encounter Visit Diagnoses Diagnosis Psoriatic arthritis ([facility]) Psoriatic arthropathy Encounter for long-term (current) use of other medications Other abnormal clinical finding documented in this encounter Care Teams Life Skills Educator Relationship Specialty Start Date End Date Jeanna Smith NP [facility] [address] [place] [address] PCP - General 06/14/08 08/21/21 documented as of this encounter
--- OUTSIDE RECORDS SUMMARY | 2024-02-21 13:29 | XMS_ITS | Encounter Summary ---
Author Organization [facility] Address [address] [place] [address] Care Team Providers Care Body Cleaner Name Role Phone Unavailable Primary Care Provider Unavailabl e Encounter Details Date Type Department Care Team (Late st Contact Info) Description 11/01/2006 10:25 EDT - 11/01/2006 11:59 EDT Hospital Encounter [address] [address] Jimmy Burleson Chi, MD [address] [facility], [address] [place] [phone] Discharge Disposition: Auto Discharge Social History Tobacco [...]
--- OUTSIDE RECORDS SUMMARY | 2024-02-21 13:29 | XMS_ITS | Encounter Summary ---
Author Organization [facility] Address [address] [place] [address] Care Team Providers Care Child Care Supervisor Name Role Phone Unavailable Primary Care Provider Unavailabl e Encounter Details Date Type Department Care Team (Late st Contact Info) Description 12/21/2007 10:49 EDT Hospital Encounter [address] [address] Jimmy Burleson Chi, MD [address] [place] [address], [address] [place] [phone] Social History Tobacco Use Types Packs/Day Years [...] Date/Time Associated Diagnosis Comments SED RATE Routine 12/21/2007 11:55 EDT COMPLETE BLOOD COUNT AND DIFFERENTIAL Routine 12/21/2007 11:55 EDT C REACTIVE PROTEIN Routine 12/21/2007 11 :55 EDT SPEP, INCLUDES QUANTITATION OF MONOCLONAL SPIKE Routine 12/21/2007 11:55 EDT COMPREHENSIVE METABOLIC PANEL (CMP) Routine 12/21/2007 11:55 EDT documented in this encounter Results * C-REACTIVE PROTEIN (12/21/2007 11:55 EDT) C-Reactive Protein <0.7 <1.0 mg/dl [facility] 12/21/2007 11:5 5 EDT 12/21/2007 11:56 EDT us Jimmy Burleson MD CHEMISTRY & BLOOD GAS ORDERABLES Final Result Performing Organization Address City/[facility]/ZIP Co de Phone Number [facility] [address] [place] [address] * SED. RATE:WESTERGREN (12/21/2007 11:55 EDT) Pathologist [facility] Sed. Rate Westergren 29 0 - 30 mm/hr [facility] 12/21/2007 11:5 5 EDT 12/21/2007 11:56 EDT us Jimmy Burleson MD HEMATOLOGY & PF4 ORDERABLES Marita l Result Performing Organization Address [facility] de Phone Number [facility] [address] [place] [address] * ELECTROPHORESIS, SERUM (12/21/2007 11:55 EDT) Pathologist [facility] Total Protein 8.2 6.5 - 8.3 g/dl [facility] Albumin, SPEP 48.7 47.6 - 61.9 % [facility] Alpha-1 % 2.8 1.4 - 4.6 % [facility] Alpha 2, SPEP 10.3 7.3 - 13.9 % [facility] Beta, SPEP 16.3 10.9 - 19.1 % [facility] Gamma, SPEP 22.0 9.5 - 24.8 % [facility] 12/21/2007 11:5 5 EDT 12/21/2007 11:56 EDT us Jimmy Burleson MD CHEMISTRY & BLOOD GAS ORDERABLES Final Result Performing Organization Address City/[facility]/ZIP Co de Phone Number [facility] [address] [place] [address] * HEMAGRAM AND DIFFERENTIAL (12/21/2007 11:55 EDT) WBC 8.93 4.0 - 12.4 K/cmm [facility] RBC 4.37 3.86 - 5.04 M/cmm [facility] Hemoglobin 14.0 11.6 - 15.2 gm/dl [facility] HCT 40.7 34.9 - 44.4 % [facility] MCV 93 81 - 98 fl [facility] MCH 31.9 26.7 - 33.3 pg [facility] MCHC 34.3 32.1 - 35.9 gm/dl [facility] PLT 203 141 - 320 K/cmm [facility] RDW-CV 12.9 11.7 - 14.6 % [facility] Neutrophils 51.3 45.5 - 79.7 % [facility] Lymphocytes 35.9 15.0 - 46.8 % [facility] Monocytes 8.3 1.8 - 12.0 % [facility] Eosinophils 4.2 0.6 - 6.9 % [facility] Basophils 0.3 0.2 - 1.4 % [facility] ABS Neutrophils 4.59 2.20 - 8.85 K/cmm [facility] ABS Lymphs 3.21 1.09 - 3.30 K/cmm [facility] ABS Monocytes 0.74 0.1 - 0.8 K/cmm [facility] ABS Eosinophils 0.37 0.03 - 0.61 K/cmm [facility] ABS Basophils 0.02 0.01 - 0.11 K/cmm [facility] Type of Diff: Automated [facility] 12/21/2007 11:5 5 EDT 12/21/2007 11:56 EDT us MakennaiJmmy Burleson MD PACKAGES & DNA PROBE ORDERABLES Final Result Performing Organization Address City/[facility]/ZIP Co de Phone Number [facility] [address] [place] [address] * (ABNORMAL) COMPREHENSIVE METABOLIC PANEL (12/21/2007 11:55 EDT) Potassium 4.3 3.5 - 5.0 mEq/L [facility] Sodium 144 136 - 145 mEq/L [facility] Chloride 105 96 - 110 mEq/L [facility] CO2 26 24 - 32 mEq/L [facility] Alkaline Phosphatase 62 38 - 126 U/L [facility] Bilirubin, Total <0.5 0.2 - 1.3 mg/dl [facility] AST 30 15 - 46 U/L [facility] ALT 25 9 - 52 U/L [facility] Albumin 4.7 3.4 - 4.9 g/dl [facility] Total Protein 8.2 6.5 - 8.3 g/dl [facility] Creatinine 0.64(L) 0.7 - 1.5 mg/dl [facility] GFR, Calculated >60 ml/min/1.7 3m2 [facility] BUN 15 10 - 26 mg/dl [facility] Calcium 9.5 8.5 - 10.5 mg/dl [facility] Calculated Calcium 9.2 8.5 - 10.5 mg/dl [facility] Glucose, Serum 105(H) 70 - 100 mg/dl [facility] Fasting? No [facility] 12/21/2007 11:5 5 EDT 12/21/2007 11:56 EDT us Jimmy Burleson MD CHEMISTRY & BLOOD GAS ORDERABLES Final Result [facility] [address] [place] [address] documented in this encounter Visit Diagnoses Not on filedocumented in this encounter
--- OUTSIDE RECORDS SUMMARY | 2024-02-21 13:29 | XMS_ITS | Encounter Summary ---
Author Organization [facility] Address [address] [place] [address] Care Team Providers Care Spool Tender Name Role Phone Jeanna Smith NP Primary Care Provider [phone] Reason for Visit * Reason Onset Date Comments Other 05/08/2010 APPROVED FOR HUM NAHED Encounter Details Date Type Department Care Team ([facility] st Contact Info) Description 05/08/2010 Telephone [facility] Rheumatology & Immunology - [facility] [address] [place], [place] [phone] Jimmy Burleson Chi, MD [address] [facility], [address] [place] [address] Other (APPROVED FOR HUMIRA) Social History Tobacco Use Types Packs/Day Years [...] Every two weeks. 6 mL 1 05/14/2010 05/14/2010 documented in this encounter Miscellaneous Notes * Telephone Encounter - Connie Lorenzo RN - 05/19/2010 1133 EDT Pt still hasn't received Humira PEN. I called [facility] and they said that medication was ready and they were just waiting for pt to call and [...] mg into the skin once a week. Alternate therapy 09/10/2009 05/14/2010 documented as of this encounter Care Teams Spool Tender Relationship Specialty Start Date End Date Jeanna Smith [facility] [employer] [facility] [address] [place] [address] PCP - General 06/14/08 08/21/21 documented as of this encounter
--- OUTSIDE RECORDS SUMMARY | 2024-02-21 13:30 | XMS_ITS | Encounter Summary ---
Author Organization [facility] Address [address] [place] [address] Care Team Providers Care Stone Setter Apprentice Name Role Phone Unavailable Primary Care Provider Unavailabl e Encounter Details Date Type Department Care Team (Latest Contact Info) Description 08/26/2002 22:57 EDT - 08/29/2002 11:59 EDT Hospital Encounter [facility] Hematology & Oncology Unit [address], [place] [id number] Fabiola Farah MD [place] [id number] Discharge Disposition: Home or Self Care Social [...] Procedure Name Priority Date/Time Associated Diagnosis Comments GLUCOSE, GLUCOMETER Routine 08/29/2002 1 1:17 EDT GLUCOSE, GLUCOMETER Routine 08/29/2002 7 :04 EDT COMPLETE BLOOD COUNT Routine 08/29/2002 6:45 EDT GLUCOSE, GLUCOMETER Routine 08/28/2002 2 2:02 EDT GLUCOSE, GLUCOMETER Routine 08/28/2002 1 7:27 EDT MISCELLANEOUS TEST, [place] Routine 08/28/2002 14:00 EDT MISCELLANEOUS TEST, [place] Routine 08/28/2002 14:00 EDT COMPLETE BLOOD COUNT Routine 08/28/2002 13:38 EDT GLUCOSE, GLUCOMETER Routine 08/28/2002 1 1:26 EDT COMPLETE BLOOD COUNT Routine 08/28/2002 6:00 EDT GLUCOSE, GLUCOMETER Routine 08/28/2002 5 :51 EDT GLUCOSE, GLUCOMETER Routine 08/27/2002 2 2:04 EDT GLUCOSE, GLUCOMETER Routine 08/27/2002 1 7:10 EDT LUPUS ANTICOAGULANT WORKUP Routine 08/27/2002 16:20 EDT LDH Routine 08/27/2002 16:20 EDT GLUCOSE, GLUCOMETER Routine 08/27/2002 1 1:33 EDT LUPUS ANTICOAGULANT WORKUP Routine 08/27/2002 5:40 EDT COMPLETE BLOOD COUNT Routine 08/27/2002 5:40 EDT HELICOBACTER PYLORI Routine 08/26/2002 2 3:59 EDT PTT Routine 08/26/2002 23:59 EDT PROTIME Routine 08/26/2002 23:59 EDT FIBRINOGEN Routine 08/26/2002 23:59 EDT D-DIMER Routine 08/26/2002 23:59 EDT COMPLETE BLOOD COUNT AND DIFFERENTIAL Routine 08/26/2002 23:59 EDT HEPATIC FUNCTION PANEL (ALB,ALK PHOS,ALT,AST,DBIL,TOT ANA,TOT PROT) Routine 08/26/2002 23:59 EDT BASIC METABOLIC PANEL (BMP) Routine 08/26/2002 23:59 EDT documented in this encounter Results * (ABNORMAL) GLUCOSE, GLUCOMETER (08/29/2002 11:17 EDT) Glucose, Fingerstick 242(H) 70 - 110 MG/DL [facility] [employer] Tile Setter ID [id number] Test Performed by Nursing Services [facility] 08/29/2002 11:1 7 EDT 08/30/2002 6:31 EDT Fabiola Farah MD CHEMISTRY & [facility]OD [facility] Final Result Performing Organization Address [facility] de Phone Number [facility] [address] [place] [address] * (ABNORMAL) GLUCOSE, GLUCOMETER (08/29/2002 7:04 EDT) Glucose, Fingerstick 233(H) 70 - 110 MG/DL [facility] [employer]ter ID [id number] Test Performed by Nursing Services [facility] 08/29/2002 7:04 EDT 08/30/2002 6:30 EDT Fabiola Farah MD CHEMISTRY & BLOOD GAS ORDE RABLES Final Result Performing Organization Address [facility] Co de Phone Number [facility] [address] [place] [address] * (ABNORMAL) HEMAGRAM (08/29/2002 6:45 EDT) WBC 8.88 4.0 - 12.4 K/cmm [facility] RBC 4.02 3.86 - 5.04 M/cmm [facility] Hemoglobin 13.0 11.6 - 15.2 gm/dl [facility] HCT 37.1 34.9 - 44.4 % [facility] MCV 93 81 - 98 fl [facility] MCH 32.5 26.7 - 33.3 pg [facility] MCHC 35.1 32.1 - 35.9 gm/dl [facility] PLT 51(L) 141 - 320 K/cmm [facility] RDW-CV 12.7 11.7 - 14.6 % [facility] 08/29/2002 6:45 EDT 08/29/2002 7:41 EDT Fabiola Farah MD HEMATOLOGY & PF4 ORDERABLE S Final Result Performing Organization Address [facility] de Phone Number [facility] [address] [place] [address] * (ABNORMAL) GLUCOSE, GLUCOMETER (08/28/2002 22:02 EDT) Glucose, Fingerstick 278(H) 70 - 110 MG/DL [facility] [employer]ter ID [id number] Test Performed by Nursing Services [facility] 08/28/2002 22:0 2 EDT 08/29/2002 6:36 EDT Fabiola Farah MD CHEMISTRY & BLOOD GAS ORDE RABLES Final Result Performing Organization Address [facility] Co de Phone Number [facility] [address] [place] [address] * (ABNORMAL) GLUCOSE, GLUCOMETER (08/28/2002 17:27 EDT) Glucose, Fingerstick 278(H) 70 - 110 MG/DL [facility] [employer] ID [id number] Test Performed by Nursing Services [facility] 08/28/2002 17:2 7 EDT 08/29/2002 6:35 EDT Fabiola Farah MD CHEMISTRY & BLOOD GAS ORDE RABLES Final Result Performing Organization Address [facility] Co de Phone Number [facility] [address] [place] [address] * MISCELLANEOUS TEST (08/28/2002 14:00 EDT) Test Name [facility] Ref Lab [facility] 08/28/2002 14:0 0 EDT 08/29/2002 13:29 EDT Fabiola Farah MD CHEMISTRY & BLOOD [facility]AS [facility] Final Result [facility] [address] [place] [address] * MISCELLANEOUS TEST (08/28/2002 14:00 EDT) Test Name ANTI QUININE PLATELET ANTIBODY [facility] Result (Note) DRUG -DEPENDENT PLATELET ANTIBODY ? PATIENT'S SERUM WITHOUT DRUG ? 7/7/03 2:00:00 PM ? NON DRUG ?IgG RESULT ?IgM RESULT ? POSITIVE ? NEGATIVE ? PATIENT'S SERUM WITH DRUG ? 7/7/03 2:00:00 PM ? QUININE ? IgG RESULT ?IgM RESULT ?POSITIVE ?NEGATIVE ? POSITVE REACTIONS DETECTED BY FLOW CYTOMETRY IN THE ABSENCE OF DRUG ? WHICH WERE POTENTIATED IN THE PRESENCE OF DRUG. THESE RESULTS ? INDICATE THE PRESENCE OF QUININE-DEPENDEN T AND NON-DRUG DEPENDENT ? PLATELET-REACTIV E ANTIBODIES. THESE RESULTS WOULD SUPPORT A DIAGNOSIS ? OF QUININE-INDUCED THROMBOCYTOPENIA . ? SEE SUPPLEMENTAL REPORT ? TEST DONE ? [facility] ? [id number] ? [place] [address] ? [facility] Ref Lab [facility] 08/28/2002 14:0 0 EDT 08/29/2002 13:25 EDT Fabiola Farah MD CHEMISTRY & BLOOD GAS [facility] Final Result [facility] [address] [place] [address] * (ABNORMAL) HEMAGRAM (08/28/2002 13:38 EDT) Pathologist [facility] WBC 8.16 4.0 - 12.4 K/cmm [facility] RBC 3.60(L) 3.86 - 5.04 M/cmm [facility] Hemoglobin 11.6 11.6 - 15.2 gm/dl [facility] HCT 33.7(L) 34.9 - 44.4 % [facility] MCV 94 81 - 98 fl [facility] MCH 32.3 26.7 - 33.3 pg [facility] MCHC 34.5 32.1 - 35.9 gm/dl [facility] PLT 33(L) 141 - 320 K/cmm [facility] RDW-CV 13.0 11.7 - 14.6 % [facility] 08/28/2002 13:3 8 EDT 08/28/2002 14:00 EDT us Fabiola Farah MD HEMATOLOGY & PF4 ORDERABLE S Final Result Performing Organization Address [facility] Co de Phone Number [facility] [address] [place] [address] * (ABNORMAL) GLUCOSE, GLUCOMETER (08/28/2002 11:26 EDT) Glucose, Fingerstick 208(H) 70 - 110 MG/DL [facility] [employer] ID [id number] Test Performed by Nursing Services [facility] 08/28/2002 11:2 6 EDT 08/29/2002 6:32 EDT Fabiola Farah MD CHEMISTRY & BLOOD GAS ORDE [facility] Final Result Performing Organization Address [facility] de Phone Number [facility] [address] [place] [address] * (ABNORMAL) HEMAGRAM (08/28/2002 6:00 EDT) WBC 9.48 4.0 - 12.4 K/cmm [facility] RBC 4.01 3.86 - 5.04 M/cmm [facility] Hemoglobin 12.8 11.6 - 15.2 gm/dl [facility] HCT 37.4 34.9 - 44.4 % [facility] MCV 93 81 - 98 fl [facility] MCH 31.9 26.7 - 33.3 pg [facility] MCHC 34.2 32.1 - 35.9 gm/dl [facility] PLT 30(L) 141 - 320 K/cmm [facility] RDW-CV 12.9 11.7 - 14.6 % [facility] 08/28/2002 6:00 EDT 08/28/2002 8:55 EDT Fabiola Farah MD HEMATOLOGY & PF4 ORDERABLE S Final Result Performing Organization Address City/[facility]/ZIP Co de Phone Number [facility] [address] [place] [address] * (ABNORMAL) GLUCOSE, GLUCOMETER (08/28/2002 5:51 EDT) Glucose, Fingerstick 219(H) 70 - 110 MG/DL [facility] [employer] [place] [id number] Test Performed by Nursing Services [facility] 08/28/2002 5:51 EDT 08/29/2002 6:32 EDT us Fabiola Farah MD CHEMISTRY & BLOOD GAS ORDE RABLES Final Result Performing Organization Address [facility]/ZIP Co de Phone Number [facility] [address] [place] [address] * (ABNORMAL) GLUCOSE, GLUCOMETER (08/27/2002 22:04 EDT) Glucose, Fingerstick 258(H) 70 - 110 MG/DL [facility] [employer] ID [id number] Test Performed by Nursing Services [facility] 08/27/2002 22:0 4 EDT 08/28/2002 4:34 EDT Fabiola Farah MD CHEMISTRY & BLOOD GAS ORDE RABLES Final Result Performing Organization Address [facility]/ZIP Co de Phone Number [facility] [address] [place] [address] * (ABNORMAL) GLUCOSE, GLUCOMETER (08/27/2002 17:10 EDT) Glucose, Fingerstick 278(H) 70 - 110 MG/DL [facility] [employer] [place] [id number] Test Performed by Nursing Services [facility] 08/27/2002 17:1 0 EDT 08/28/2002 4:32 EDT Fabiola Farah MD CHEMISTRY & BLOOD GAS ORDE RABLES Final Result Performing Organization Address City/[facility]/ZIP Co de Phone Number [facility] [address] [place] [address] * LDH (08/27/2002 16:20 EDT) LDH 433 313 - 618 U/L [facility] 08/27/2002 16:2 0 EDT 08/27/2002 16:22 EDT us Fabiola Farah MD CHEMISTRY & BLOOD GAS ORDE RABLES Final Result Performing Organization Address [facility] Co de Phone Number [facility] [address] [place] [address] * LUPUS WORK-UP (08/27/2002 16:20 EDT) Pathologist [facility] Dilute Viper Venom 29.3 24.5 - 33.7 secs [facility] Comment: Results must be interpreted with caution if the patient is on oral anticoagulant, direct thrombin inhibitors or heparin. PTT 23 23 - 33 secs [facility] Comment:Therapeutic Heparin range: 58-100 seconds Patient PTT50 Test cancelled, normal APTT 23 - 33 secs [facility] CTRL 50/50 PTT Test cancelled, normal APTT secs [facility] Mix 50/50 PTT Test cancelled, normal APTT secs [facility] 08/27/2002 16:2 0 EDT 08/27/2002 16:22 EDT us Fabiola Farah MD PACKAGES & DNA PROBE ORDER RANI Final Result Performing Organization Address [facility] de Phone Number [facility] [address] [place] [address] * (ABNORMAL) GLUCOSE, GLUCOMETER (08/27/2002 11:33 EDT) Pathologist [facility] Glucose, Fingerstick 241(H) 70 - 110 MG/DL [facility] [employer] [place] [id number] Test Performed by Nursing Services [facility] 08/27/2002 11:3 3 EDT 08/28/2002 4:30 EDT Fabiola Farah MD CHEMISTRY & BLOOD GAS ORDE R[facility]MAY[facility] Final Result Performing Organization Address City/[facility] Co de Phone Number [facility] [address] [place] [address] * LUPUS WORK-UP (08/27/2002 5:40 EDT) PTT 26 23 - 33 secs [facility] Comment:Therapeutic Heparin range: 58-100 seconds Patient PTT50 Test cancelled, normal APTT 23 - 33 secs [facility] 08/27/2002 5:40 EDT 08/27/2002 5:48 EDT Fabiola Farah MD PACKAGES & DNA PROBE ORDER RANI Final Result Performing Organization Address [facility] Co de Phone Number [facility] [address] [place] [address] * (ABNORMAL) HEMAGRAM (08/27/2002 5:40 EDT) WBC 4.65 4.0 - 12.4 K/cmm [facility] RBC 4.07 3.86 - 5.04 M/cmm [facility] Hemoglobin 13.0 11.6 - 15.2 gm/dl [facility] HCT 37.6 34.9 - 44.4 % [facility] MCV 92 81 - 98 fl [facility] MCH 32.1 26.7 - 33.3 pg [facility] MCHC 34.7 32.1 - 35.9 gm/dl [facility] PLT 30(L) 141 - 320 K/cmm [facility] RDW-CV 12.6 11.7 - 14.6 % [facility] 08/27/2002 5:40 EDT 08/27/2002 5:48 EDT Fabiola Farah MD HEMATOLOGY & PF4 ORDERABLE S Final Result Performing Organization Address City/[facility] Co de Phone Number [facility] [address] [place] [address] * PTT (08/26/2002 23:59 EDT) PTT 25 23 - 33 secs [facility] Comment:Therapeutic Heparin range: 58-100 seconds 08/26/2002 23:5 9 EDT 08/27/2002 0:07 EDT Fabiola Farah MD HEMATOLOGY & PF4 ORDERABLE S Final Result Performing Organization Address [facility] de Phone Number [facility] [address] [place] [address] * PROTIME (08/26/2002 23:59 EDT) Pro Time 12.6 10.9 - 13.9 secs [facility] I.N.R. 1.0 0.9 - 1.1 Ratio [facility] Comment: Moderate Intensity Coumadin INR = 2.0-3.0 Adjustments in anticoagulant therapy dose should be based upon the INR and NOT the Pro Time. 08/26/2002 23:5 9 EDT 08/27/2002 0:07 EDT Fabiola Farah MD HEMATOLOGY & PF4 ORDERABLE S Final Result Performing Organization Address [facility] de Phone Number [facility] [address] [place] [address] * LIVER FUNCTION TESTS (08/26/2002 23:59 EDT) Albumin 4.1 3.0 - 5.5 g/dl [facility] Total Protein 7.6 6.0 - 8.5 g/dl [facility] Total Alkaline Phosphatase 59 38 - 126 U/L [facility] ALT 34 15 - 75 U/L [facility] AST 43 8 - 50 U/L [facility] Unconjugated Bilirubin 0.5 0.1 - 1.1 mg/dl [facility] Conjugated Bilirubin 0.0 0.0 - 0.3 mg/dl [facility] Bilirubin, Total 0.6 0.2 - 1.3 mg/dl [facility] 08/26/2002 23:5 9 EDT 08/27/2002 0:07 EDT Fabiola Farah MD CHEMISTRY & BLOOD GAS ORDE RABLES Final Result Performing Organization Address [facility] de Phone Number [facility] [address] [place] [address] * HELICOBACTER PYLORI (08/26/2002 23:59 EDT) H Pylori IgG 2.48 EIA Value [facility] Comment: <0.91 = Negative 0.91 - 1.09 ??= Equivocal >1.09 = Positive. 08/26/2002 23:5 9 EDT 08/27/2002 0:07 EDT Fabiola Farah MD HISTORICAL LAB FOR SQ LOAD Final Result Performing Organization Address [facility] Phone Number [facility] [address] [place] [address] * FIBRINOGEN (08/26/2002 23:59 EDT) Pathologist [facility] Fibrinogen 264 180 - 433 mg/dl [facility] 08/26/2002 23:5 9 EDT 08/27/2002 0:07 EDT Fabiola Farah MD HEMATOLOGY & PF4 ORDERABLE S Final Result Performing Organization Address [facility] de Phone Number [facility] [address] [place] [address] * D-DIMER (08/26/2002 23:59 EDT) D-Dimer 0.08 <0.50 ug FEU/ml [facility] 08/26/2002 23:5 9 EDT 08/27/2002 0:07 EDT Fabiola Farah MD HEMATOLOGY & PF4 ORDERABLE S Final Result Performing Organization Address [facility] Co de Phone Number [facility] [address] [place] [address] * (ABNORMAL) HEMAGRAM AND DIFFERENTIAL (08/26/2002 23:59 EDT) Pathologist [facility] WBC 5.35 4.0 - 12.4 K/cmm [facility] RBC 4.18 3.86 - 5.04 M/cmm [facility] Hemoglobin 13.3 11.6 - 15.2 gm/dl [facility] HCT 38.8 34.9 - 44.4 % [facility] MCV 93 81 - 98 fl [facility] MCH 31.7 26.7 - 33.3 pg [facility] MCHC 34.3 32.1 - 35.9 gm/dl [facility] PLT 2(LL) 141 - 320 K/cmm [facility] RDW-CV 12.5 11.7 - 14.6 % [facility] Neutrophils 80(H) 45.5 - 79.7 % [facility] Lymphocytes 19 15.0 - 46.8 % [facility] Monocytes 1(L) 1.8 - 12.0 % [facility] ABS Neutrophils 4.28 2.20 - 8.85 K/cmm [facility] ABS Lymphs 1.02(L) 1.09 - 3.30 K/cmm [facility] ABS Monocytes 0.05(L) 0.1 - 0.8 K/cmm [facility] RBC Morphology [place] body 1+ Anisocytosis 1+ Polychromasia [facility] Type of Diff: Manual [facility] 08/26/2002 23:5 9 EDT 08/27/2002 0:07 EDT us Fabiola Farah MD PACKAGES & DNA PROBE ORDER RANI Final Result [facility] [address] [place] [address] * (ABNORMAL) BASIC METABOLIC PANEL (08/26/2002 23:59 EDT) Pathologist [facility] Sodium 139 136 - 145 mEq/L [facility] Potassium 4.0 3.5 - 5.0 mEq/L [facility] Chloride 107 96 - 110 mEq/L [facility] CO2 18(L) 24 - 30 mEq/L [facility] BUN 16 10 - 26 mg/dl [facility] Creatinine 0.7 0.7 - 1.5 mg/dl [facility] Calcium 9.3 8.5 - 10.5 mg/dl [facility] Calculated Calcium 9.6 8.5 - 10.5 mg/dl [facility] Glucose, Serum 232(H) 70 - 110 mg/dl [facility] 08/26/2002 23:5 9 EDT 08/27/2002 0:07 EDT us Fabiola Farah MD CHEMISTRY & BLOOD GAS SUE LARES Final Result [facility] [address] [place] [address] documented in this encounter Visit Diagnoses Not on filedocumented in this encounter
--- OUTSIDE RECORDS SUMMARY | 2024-02-21 13:30 | XMS_ITS | Encounter Summary ---
Author Organization [facility] Address [address] [place] [address] Care Team Providers Care Carousel Attendant Name Role Phone Unavailable Primary Care Provider Unavailabl e Encounter Details Date Type Department Care Team (Late st Contact Info) Description 03/30/2001 12:35 EST Hospital Encounter [facility] - Other [address] [place] [address] Jimmy Burleson Chi, MD [address] [facility], [address] [place] [address] Discharge Disposition: Auto Discharge Social [...] Procedure Name Priority Date/Time Associated Diagnosis Comments HEMAGRAM & DIFF Routine 03/30/2001 13:59 EST ARTHRITIS 1 Routine 03/30/2001 13:59 EST IMMUNOTYPING, SERUM Routine 03/30/2001 1 3:59 EST DMARD PROFILE Routine 03/30/2001 13:59 EST HLA B27 SCREEN, DNA Routine 03/30/2001 1 3:59 EST SED RATE Routine 03/30/2001 13:59 EST C REACTIVE PROTEIN Routine 03/30/2001 13 :59 EST SPEP, INCLUDES QUANTITATION OF MONOCLONAL SPIKE Routine 03/30/2001 13:59 EST KNEES STANDING BILATERAL AP Routine 03/30/2001 13:57 EST HAND 2 VIEWS BILATERAL Routine 03/30/2001 13:56 EST documented in this encounter Results * (ABNORMAL) SED. RATE:WESTERGREN (03/30/2001 13:59 EST) Sed. Rate [place] 33(H) 0 - 30 mm/hr [facility] 03/30/2001 13:5 9 EST 03/30/2001 14:00 EST Jimmy Burleson MD HEMATOLOGY & PF4 ORDERABLES Marita l Result [facility] [address] [place] [address] * (ABNORMAL) ELECTROPHORESIS, SERUM (03/30/2001 13:59 EST) Total Protein 7.7 6.0 - 8.5 g/dl [facility] Albumin, SPEP 44.5(L) 49.0 - 61.0 % [facility] Alpha-1 % 4.1 2.4 - 4.9 % [facility] Alpha 2, SPEP 13.1 10.0 - 19.0 % [facility] Beta, SPEP 15.2(H) 9.0 - 14.0 % [facility] Gamma, SPEP 23.2(H) 11.0 - 21.0 % [facility] Comments, SPEP Copy of electrophoretic scan to follow [facility] 03/30/2001 13:5 9 EST 03/30/2001 14:00 EST Jimmy Burleson MD CHEMISTRY & BLOOD GAS ORDERABLES Final Result Performing Organization Address City/[facility]/ZIP Co de Phone Number [facility] [address] [place] [address] * DMARD PROFILE (03/30/2001 13:59 EST) Pathologist [facility] Total Alkaline Phosphatase 64 38 - 126 U/L [facility] AST 39 8 - 50 U/L [facility] ALT 26 15 - 75 U/L [facility] Albumin 3.7 3.0 - 5.5 g/dl [facility] Creatinine 0.7 0.7 - 1.5 mg/dl [facility] 03/30/2001 13:5 9 EST 03/30/2001 14:00 EST Jimmy Burleson MD CHEMISTRY & BLOOD GAS ORDERABLES Final Result Performing Organization Address [facility] Co de Phone Number [facility] [address] [place] [address] * IMMUNOFIXATION (03/30/2001 13:59 EST) Pathologist [facility] Immunofixatio n,serum Negative for monoclonal immunoglobulin s. [facility] 03/30/2001 13:5 9 EST 03/30/2001 14:00 EST Jimmy Burleson MD CHEMISTRY & BLOOD GAS ORDERABLES Final Result Performing Organization Address [facility] Co de Phone Number [facility] [address] [place] [address] * (ABNORMAL) C-REACTIVE PROTEIN (03/30/2001 13:59 EST) Pathologist [facility] C-Reactive Protein 1.8(H) <1.0 mg/dl [facility] 03/30/2001 13:5 9 EST 03/30/2001 14:00 EST Jimmy Burleson MD CHEMISTRY & BLOOD GAS ORDERABLES Final Result Performing Organization Address City/[facility]/ZIP Co de Phone Number [facility] [address] [place] [address] * HEMAGRAM & DIFF (03/30/2001 13:59 EST) WBC 8.22 4.0 - 12.4 K/cmm [facility] [...] LAB PLT 273 141 - 320 K/cmm [facility] RDW-CV 12.8 11.7 - 14.6 % [facility] % Neutrophils 55.8 45.5 - 79.7 % [facility] % Lymphocytes 31.3 15.0 - 46.8 % [facility] % Monocytes 8.8 1.8 - 12.0 % [facility] % Eosinophils 3.6 0.6 - 6.9 % [facility] % Basophils 0.5 0.2 - 1.4 % [facility] [...] of Diff: Automated [facility] 03/30/2001 13:5 9 EST 03/30/2001 14:00 EST us Jimmy Burleson MD HISTORICAL LAB FOR SQ LOAD Final Result [facility] [address] [place] [address] * HLA B27 (03/30/2001 13:59 EST) HLA B27 HLA B27 not identified Crossreactive antigen B7 present [facility] 03/30/2001 13:5 9 EST 03/30/2001 14:00 EST us Jimmy Burleson MD TISSUE TYPING ORDERABLES Final R esult Performing Organization Address [facility] Co de Phone Number [facility] [address] [place] [address] * ARTHRITIS 1 (03/30/2001 13:59 EST) Anti Nuclear Ab <40 0 - 40 Dils [facility] Rheumatoid Factor <20 <20 IU/ml [facility] 03/30/2001 13:5 9 EST 03/30/2001 14:00 EST us Jimmy Burleson MD IMMUNOLOGY AND SEROLOGY ORDERABL ES Final Result Performing Organization Address [facility] de Phone Number [facility] [address] [place] [address] * KNEES STANDING BILATERAL AP (03/30/2001 13:57 EST) Anatomical Region Laterality Modality Other 03/30/2001 13:5 7 EST Impressions 01/02/2009 5:07 EST IMPRESSION: #1: Bony demineralization with mild suggestion of rheumatoid arthritis, findings suggestive of osteoarthritis. #2: There is collapse of the left lunate as described above. KNEES: AP view of both knees demonstrates bilateral medial femoral tibial joint space loss. There is slight loss of the normal valgus alignment. No significant bony proliferative change or erosive change is seen. D: 04-05-01 T: 04-05-01 /am Narrative 01/02/2009 5:07 EST CHRONIC JOINT PAINS WITH SWELLING, HISTORY OF PSORIACIS R/O RHEUMATOID ARTHRITIS, PSORIATIC ARTHRITIS 03-30-01 BILATERAL HANDS AND BILATERAL KNEES: AP and lateral views of the hands were obtained. There are no comparisons. FINDINGS: There is bony demineralization of the carpus. There is bilateral left greater than right radiocarpal joint space loss. There is collapse of the left lunate, and slight sclerosis which may be secondary to chronic trauma. Kienbock's disease cannot be excluded. There is cystic change within the lunate. There is deformity of the left ulnar styloid with slight positive ulnar variance. This may be secondary to erosive change. There is bilateral advanced degenerative change of the trapezium trapezoid metacarpal joints, right greater than left. Mild bilateral distal interphalangeal joint space loss is noted. There is no evidence of joint subluxation or dislocation. Procedure Note Baldo Johnson, PT - 01/02/2009 CHRONIC JOINT PAINS WITH SWELLING, HISTORY OF PSORIACIS R/O RHEUMATOID ARTHRITIS, PSORIATIC ARTHRITIS 03-30-01 BILATERAL HANDS AND BILATERAL KNEES: AP and lateral views of the hands were obtained. There are no comparisons. FINDINGS: There is bony demineralization of the carpus. There is bilateral left greater than right radiocarpal joint space loss. There is collapse of the left lunate, and slight sclerosis which may be secondary to chronic trauma. Kienbock's disease cannot be excluded. There is cystic change within the lunate. There is deformity of the left ulnar styloid with slight positive ulnar variance. This may be secondary to erosive change. There is bilateral advanced degenerative change of the trapezium trapezoid metacarpal joints, right greater than left. Mild bilateral distal interphalangeal joint space loss is noted. There is no evidence of joint subluxation or dislocation. IMPRESSION IMPRESSION: #1: Bony demineralization with mild suggestion of rheumatoid arthritis, findings suggestive of osteoarthritis. #2: There is collapse of the left lunate as described above. KNEES: AP view of both knees demonstrates bilateral medial femoral tibial joint space loss. There is slight loss of the normal valgus alignment. No significant bony proliferative change or erosive change is seen. D: 04-05-01 T: 04-05-01 /am us Jimmy Burleson MD IMG DIAGNOSTIC IMAGING ORDERABLE S Final Result * HAND 2 VIEWS BILATERAL (03/30/2001 13:56 EST) Anatomical Region Laterality Modality Other 03/30/2001 13:5 6 EST Narrative 01/02/2009 5:07 EST CHRONIC JOINT PAINS WITH SWELLING, HISTORY OF PSORIACIS R/O RHEUMATOID ARTHRITIS, PSORIATIC ARTHRITIS Procedure Note Baldo Johnson, PT - 01/02/2009 CHRONIC JOINT PAINS WITH SWELLING, HISTORY OF PSORIACIS R/O RHEUMATOID ARTHRITIS, PSORIATIC ARTHRITIS us Jimmy Burleson MD IMG DIAGNOSTIC IMAGING ORDERABLE S Final Result documented in this encounter Visit Diagnoses Not on filedocumented in this encounter
--- OUTSIDE RECORDS SUMMARY | 2024-02-21 13:30 | XMS_ITS | Encounter Summary ---
Author Organization [facility] Address [address] [place] [address] Care Team Providers Care Flat Bed Knitter Name Role Phone Unavailable Primary Care Provider Unavailabl e Encounter Details Date Type Department Care Team (Late st Contact Info) Description 09/04/2002 15:29 EDT Hospital Encounter [facility] - Other [address] [place] [address] Summer Henderson MD [address] [place] [address] [place] [address] Social History Tobacco Use Types [...]
--- OUTSIDE RECORDS SUMMARY | 2024-02-21 13:30 | XMS_ITS | Encounter Summary ---
Author Organization [facility] Address [address] [place] [address] Care Team Providers Care Car Seat Coverer Name Role Phone Jeanna Iglesias NP Primary Care Provider [phone] Encounter Details Date Type Department Care Team (Late st Contact Info) Description 01/10/2002 Results Only [facility] - [facility] [address] [place] [address] Jeanna Iglesias, [employer]IPPER [employer]TER [employer] [facility] [address] [place], [place] [id number] Social History Tobacco Use Types Packs/Day Years [...] Priority Date/Time Associated Diagnosis Comments CYTOPATHOLOGY Routine 01/10/2002 0:00 EST documented in this encounter Results * CYTOPATHOLOGY (01/10/2002 0:00 EST) Pathology Report: CYTOPATHOLOGY REPORT Reports generated via electronic interface contain original data; however they are lacking the format of the original report. Caution should be taken when reading/interpreti ng unformatted reports. Name: ? ELEAZAR SORIANO ? Accession #: ? [id number] : ? 1950 (Age: 51) ??F ?Collect Date: ? 01/10/2002 Location: ? [facility] ? Receive Date: ? 01/12/2002 Provider: ?JEANNA IGLESIAS [employer] Copy to: ? Specimen/Source: ?ThinPrep Pap Test, Cervix/Endocervix Last Menstrual Period: ? 18 yrs ago ? SPECIMEN ADEQUACY ? Satisfactory for Evaluation - assessment of transformation zone component not applicable ( e.g. atrophy, vaginal sample, hysterectomy) GENERAL CATEGORIZATION ? Negative for Intraepithelial Lesion or Malignancy ? Document reviewed and electronically signed by: ? Le Adkins, RADHA(ASCP)(IAC) ? Report Date: ??01/17/2002 16:23 End of Report [facility] 01/10/2002 01/12/2002 Jeanna Iglesias NP PATHOLOGY ORDERABLES Final Resu lt [facility] [address] [place] [address] documented in this encounter Visit Diagnoses Not on filedocumented in this encounter Care Teams Car Seat Coverer Relationship Specialty Start Date End Date Jeanna Iglesias NP [facility] [address] [place], [place] [address] PCP - General 06/14/08 08/21/21 documented as of this encounter
[2024-02-21 18:23] LABS: AFP Tumor Marker <2.5 ng/mL (<8.1)
== END 2024-02-21 13:21 | disposition home or self-care (01) ==
LOC: LBO 13:21
PROVIDERS: PCP Family Medicine; Visit Provider Nurse Practitioner Adult Health
DX: K74.60 Unspecified cirrhosis of liver (principal)
CPT/HCPCS: 36415; 80053; 76705; 82105; 85025; 85610

== ENCOUNTER 2024-03-01 12:39 | Outpatient (CLI) | payer MEDICARE, SELFPAY ==
[2024-03-01 13:02] LABS: Abs Immature Grans 0.03 10^3/uL (0.0-0.06); Absolute Basophil Count 0.08 10^3/uL (0.0-0.2); Absolute Eosinophil Count 0.63 10^3/uL (0.0-0.7); Absolute Lymphocyte Count 1.62 10^3/uL (1.2-3.4); Absolute Monocyte Count 0.58 10^3/uL (0.1-0.8); Absolute Neutrophil Count 2.47 10^3/uL (1.2-6.7); Basophils % 1.5 %; Eosinophils % 11.6 %; HCT 43.3 % (36.0-46.0); Immature Grans % 0.6 %; Lymphocytes % 29.9 %; MCH 33.3 pg (27.0-33.0); MCHC 34.6 % (32.0-36.0); MCV 96 fL (80-95); MPV 10.1 fL (8.0-11.0); Monocytes % 10.7 %; Neutrophils % 45.7 %; RBC 4.51 10^6/uL (3.93-5.22); RDW 12.8 % (11.7-14.6); RDW-SD 45.9 fL; WBC 5.41 10^3/uL (4.4-10.8)
[2024-03-01 13:14] LABS: Diff Comment Diff Reviewed; Platelet Count 81 10^3/uL (130-400); RBC Morphology Normal
[2024-03-01 13:30] LABS: Ferritin 195 ng/mL (8-252)
== END 2024-03-01 12:40 | disposition home or self-care (01) ==
PROVIDERS: PCP Family Medicine; Visit Provider Nurse Practitioner Family
DX: D50.9 Iron deficiency anemia, unspecified (principal)
CPT/HCPCS: 36415; 82728; 85025

== ENCOUNTER 2024-03-23 22:29 | Outpatient (REF) | payer MEDICARE, SELFPAY ==
[2024-03-23 22:43] LABS: Magnesium 1.5 mg/dL (1.8-2.4)
== END 2024-03-23 22:30 | disposition home or self-care (01) ==
LOC: NCHCN 22:29
PROVIDERS: PCP Family Medicine; Visit Provider Family Medicine
DX: E03.9 Hypothyroidism, unspecified (principal)
CPT/HCPCS: 83735; 84443

== ENCOUNTER 2024-05-02 03:09 | Outpatient (CLI) | payer MEDICARE, SELFPAY ==
[2024-05-02 23:18] LABS: T4, Free 0.8 ng/dL (0.8-2.2)
== END 2024-05-02 03:10 | disposition home or self-care (01) ==
PROVIDERS: PCP Family Medicine; Visit Provider Family Medicine
DX: E03.9 Hypothyroidism, unspecified (principal)
CPT/HCPCS: 36415; 84439; 84443

== ENCOUNTER 2024-05-29 14:47 | Outpatient (REF) | payer MEDICARE, SELFPAY ==
[2024-05-29 16:16] LABS: TSH (W/Ref FT4) 2.06 uIU/mL (0.36-3.74)
== END 2024-05-29 14:48 | disposition home or self-care (01) ==
LOC: NCHCN 14:47
PROVIDERS: PCP Family Medicine; Visit Provider Family Medicine
DX: E03.9 Hypothyroidism, unspecified (principal)
CPT/HCPCS: 84443

== ENCOUNTER 2024-06-09 14:11 | Emergency (ER) | payer MEDICARE, SELFPAY ==
--- NOTE | 2024-06-09 14:15 | RT.EKG_ITS ---
APPROVED REPORT Exam: Resting ECG Reason for Exam: short of breath Patient Location: E HR:95 bpm ECG Measurements Heart Rate 95 AXIS MT 176 P 55 QRSd 85 QRS -24 QT 360 T 29 QTc 453 Conclusion Sinus rhythm...normal P axis, V-rate 60- 99
[2024-06-09 14:24] VITALS: BP 132/80; PULSE 93; RESP 20; TEMP 36.3; O2SAT 98
[2024-06-09 15:05] VITALS: BP 145/82; PULSE 94; RESP 18; O2SAT 98
--- NOTE | 2024-06-09 15:09 | W.ED.GENAD ---
Discharge Plan Disposition Patient Disposition: Home Condition: Stable Discharge Details Clinical Impression: SOB (shortness of breath), Fatigue Primary Care Provider: Kaci Vasquez ED Provider: Guanako Chakraborty Home Meds and New Rx's Prescriptions: Continued simethicone [Gas Relief Extra Strength] 125 mg capsule 125 mg PO BID-QID PRN magnesium chloride 64 mg tablet extended release 64 mg PO BID fluticasone propionate 50 mcg/actuation blister with device 2 inh inhalation DAILY Rx Instructions: 2 spray into both nostrils once a day fluticasone propionate [Flovent HFA] 110 mcg/actuation HFA aerosol inhaler 2 puff inhalation BID gabapentin 600 mg tablet 300 mg PO DAILY insulin detemir U-100 100 unit/mL (3 mL) insulin pen See Rx Instructions SUBCUT .COMPLEX Rx Instructions: 35 U BID subcutaneously; famotidine [Pepcid] 40 mg tablet 40 mg PO BID trazodone 50 mg tablet 25 mg PO DAILY acetaminophen 325 mg capsule 650 mg PO Q6H PRN lovastatin 40 MG tablet 40 mg PO DAILY levothyroxine [Levoxyl] 75 MCG tablet 50 mcg PO DAILY aspirin [Aspirin Low-Strength] 81 MG tablet,chewable 81 mg PO DAILY FREESTYLE GLUCOMETER See Rx Instructions .ROUTE .COMPLEX Rx Instructions: Use as directed; calcium carbonate-vitamin D3 [Calcium 500 + D] 1 EACH tablet 1 ea PO DAILY cholecalciferol (vitamin D3) 1,000 UNIT capsule 1,000 unit PO DAILY nitroglycerin [Nitrostat] 0.4 mg tablet, sublingual 0.4 mg SL Q5-15M PRN albuterol sulfate [ProAir HFA] 90 mcg/actuation HFA aerosol inhaler 2 puff IH QID paroxetine HCl [Paxil] 20 mg tablet 20 mg PO DAILY diclofenac sodium [Arthritis Pain (diclofenac)] 1 % gel 2 g topical QID Rx Instructions: apply to single elbow, wrist or hand; for hand includes palm/fingers/back of hand metformin 500 mg tablet 1,000 mg PO BID Patient Comments: 12/14/16 Now taking 1000mg BID. DM Discontinued cefpodoxime 200 mg tablet 200 mg PO BID Rx Instructions: must administer with a meal/food carbidopa-levodopa [Sinemet] 25-100 mg tablet 1 tab PO TID tramadol 50 mg tablet 50 mg PO DAILY duloxetine 30 mg capsule,delayed release(DR/EC) 30 mg PO DAILY canagliflozin 100 mg tablet 100 mg PO DAILY No Action (DME) FreeStyle Lite Strips 1 EACH strip 1 ea Miscellaneous TID (DME) Dexcom G7 Sensor Device See Rx Instructions .ROUTE Rx Instructions: As directed Discharge Instructions Additional Instructions: Your blood work and CAT scan did not show any concerning findings at this time. Please follow-up with your primary care provider this week especially if your symptoms are continuing. If you feel more ill or have new symptoms such as high fevers return to the emergency department for reevaluation HPI General Date/Time Provider Initiated Documentation: 06/09/24 14:17. Limitations to Documentation: no limitations. Information obtained by: patient and family. History of Present Illness 74 year old F presents to the emergency department with the chief complaint of fatigue, dyspnea, described as moderate, Patient started experiencing this day(s) (3) and it has been constant. Rest improves symptom(s), Movement worsens symptoms . Patient notes denies chest pain, cough and fever/chills. Patient did receive the following treatments prior to arrival, none Related Data Home Medications ?Medication ?Instructions ?Recorded ?Confirmed lovastatin 40 mg tablet 40 mg PO DAILY 05/16/13 06/09/24 Freestyle Glucometer See Rx Instructions .Route .COMPLEX 05/22/14 06/09/24 aspirin 81 mg chewable tablet 81 mg PO DAILY 05/22/14 06/09/24 (Aspirin Low-Strength) levothyroxine 75 mcg tablet 50 mcg PO DAILY 05/22/14 06/09/24 (Levoxyl) blood sugar diagnostic (FreeStyle 06/12/14 06/09/24 Lite Strips) calcium 500 mg (as 1 ea PO DAILY 09/02/16 06/09/24 carbonate)-vitamin D3 10 mcg (400 unit) tablet (Calcium 500 + D) cholecalciferol (vitamin D3) 25 1,000 unit PO DAILY 10/01/16 06/09/24 mcg (1,000 unit) capsule albuterol sulfate 90 mcg/actuation 2 puff inhalation QID 06/08/18 06/09/24 aerosol inhaler (ProAir HFA) nitroglycerin 0.4 mg sublingual 0.4 mg sublingual Q5-15M PRN 06/08/18 06/09/24 tablet (Nitrostat) magnesium chloride 64 mg 64 mg PO BID 10/19/18 06/09/24 tablet,extended release simethicone 125 mg capsule (Gas 125 mg PO BID-QID PRN 10/19/18 06/09/24 Relief Extra Strength) paroxetine HCl 20 mg tablet (Paxil) 20 mg PO DAILY 09/04/19 06/09/24 gabapentin 600 mg tablet 300 mg PO DAILY 07/30/20 06/09/24 diclofenac sodium 1 % topical gel 2 g topical QID 01/22/22 06/09/24 (Arthritis Pain (diclofenac)) acetaminophen 325 mg capsule 650 mg PO Q6H PRN 11/13/22 06/09/24 famotidine 40 mg tablet (Pepcid) 40 mg PO BID 11/13/22 06/09/24 insulin detemir U-100 100 unit/mL See Rx Instructions subcut .COMPLEX 11/13/22 06/09/24 (3 mL) subcutaneous pen metformin 500 mg tablet 1,000 mg PO BID 11/13/22 06/09/24 trazodone 50 mg tablet 25 mg PO DAILY 11/13/22 06/09/24 fluticasone propionate 110 2 puff inhalation BID 02/09/23 06/09/24 mcg/actuation HFA aerosol inhaler (Flovent HFA) fluticasone propionate 50 2 inh inhalation DAILY 02/09/23 06/09/24 mcg/actuation blister powder for inhalation blood-glucose sensor (Dexcom G7 06/09/24 06/09/24 Sensor device) Allergies Allergy/AdvReac Type Severity Reaction Status Date / Time Penicillins Allergy Intermediate Hives Verified 06/09/24 14:24 sulfasalazine Allergy Unknown Other (See Verified 06/09/24 14:24 Comment) amoxicillin Allergy Hives Verified 06/09/24 14:24 quinine AdvReac Severe Thrombocyto Verified 06/09/24 14:24 penia erythromycin base AdvReac Intermediate VOMITING Verified 06/09/24 14:24 hydroxychloroquine sulfate AdvReac Intermediate VOMITING Verified 06/09/24 14:24 (From Plaquenil) General Stated Complaint: SOB KODY: 3 Review of Systems All systems reviewed & are unremarkable except as noted in HPI and below Constitutional Constitutional: Denies chills, Reports fatigue and Denies fever(s) Cardiovascular Cardiovascular: Denies chest pain and Reports dyspnea Respiratory Respiratory: Denies cough and Reports dyspnea Gastrointestinal Gastrointestinal: Denies abdominal pain, Denies nausea and Denies vomiting Psychiatric Psychiatric: Denies depression Endocrine Endocrine: Reports fatigue Exam Const General: no acute distress Orientation: alert [facility] Head: normal to inspection Ears: external ears normal General nose exam: external nose normal Mouth: moist mucous membranes Eyes General: appearance normal, both eyes and all related structures Neck Neck: normal visual inspection Resp Auscultation: clear to auscultation bilaterally Cardio Jugular venous pressure: no JVD Rate: regular rate Heart Sounds: no murmurs Skin General skin exam: no rashes or lesions noted Neuro General: patient alert and patient oriented x3 Extrem General: normal to inspection Psych Mental Status: mental status grossly normal Course Vital Signs Vital signs: Vital Signs Temperature 36.3 C L 06/09/24 14:24 Pulse 93 H 06/09/24 14:24 Respiratory Rate 20 06/09/24 14:24 Blood Pressure 132/80 06/09/24 14:24 Pulse Oximetry 98 06/09/24 14:24 Temperature 36.3 C L 06/09/24 14:24 Pulse 94 H 06/09/24 15:05 Respiratory Rate 18 06/09/24 15:05 Blood Pressure 145/82 H 06/09/24 15:05 Blood Pressure Mean 103 06/09/24 15:05 Pulse Oximetry 98 06/09/24 15:05 Oxygen Delivery Method Room Air 06/09/24 14:24 Oxygen Flow Rate 0 06/09/24 14:24 Medical Decision Making 74-year-old female with a history of Parkinson's, anxiety, hypertension, anemia who comes in with 3 days of fatigue and Does not feel like she can take a deep breath then. She denies any fevers, chills, cough, chest pain or pressure. Denies any abdominal pain. Denies any changes in her stools. She is alert and oriented but does appear tired. She is able speak in full sentences. She has clear lung sounds, soft nontender abdomen. No JVD or leg swelling. Given her complaints I will proceed with CBC, CMP, troponins, chest x-ray. She has no signs of DVT on exam and has no significant tachycardia or hypoxia so I doubt PE but if no clear findings on labs and chest x-ray for her symptoms we will consider doing a CTA of her chest. Labs including delta troponin unremarkable, CTA shows no acute findings Which was done after her metabolic panel came back showing a normal renal function. She is requesting discharge and given reassuring workup I feel this is reasonable. She will follow-up with her PCP if not improving this week and return precautions given Differential Diagnosis Differential Diagnosis: Anemia, electrolyte abnormality, ACS Medical Records Medical records reviewed: Yes I reviewed the patient's medical records. Lab Data Lab results reviewed: Yes I reviewed the patient's lab results. ECG Data Attestation: I personally reviewed and interpreted this ECG (s) as follows: Prior ECG tracings: available for review Interpretation: Sinus rhythm, rate of 95, IN 176, no STEMI Quality:SDOH Health Related Social Needs: No Data to Display PFSH All Active Problems (Updated 06/09/24 @ 17:08 by Guanako Chakraborty MD) Fatigue (Acute) SOB (shortness of breath) (Acute) Iron deficiency anemia (Acute) GERD (gastroesophageal reflux disease) (Chronic) Diabetic autonomic neuropathy associated with type 2 diabetes mellitus (Acute 11/04/16) Gait instability (Acute 05/03/17) Lichen sclerosus et atrophicus of the vulva (Acute 01/01/17) Rx for Clobetasol. Pt did not refill after intial Rx ran out. 06/2017 Recommended that she have PCP refill Rx for [facility]. Mild neurocognitive disorder (Acute 12/09/16) Seizures (Acute 07/19/14) Episodes transient global amnesia 2011, normal EEG head imaging at that time. Because of possibility of partial seizures, started on seizure medication at that time. Psoriatic arthritis (Acute) Varices of other sites (Acute) Essential tremor (Acute) Globus sensation (Acute) Acquired hypothyroidism (Acute) Mild cognitive impairment (Acute) Peripheral neuropathy (Acute) Vertigo (Acute) Orthostatic hypotension (Acute) Squamous cell carcinoma of vulva (Acute) Word finding difficulty (Acute) Difficulty swallowing (Acute) Lumbar spondylolysis (Acute) Paresthesia of both hands (Acute) Vitreous degeneration (Acute) Low blood pressure (Acute) Seizure disorder (Chronic) Thrombocytopenia (Chronic) DJD (degenerative joint disease) (Chronic) Type 2 diabetes mellitus (Acute) Generalized anxiety disorder (Acute) Chronic pain (Chronic) Prescribed meds from PCP Frail elderly (Acute) Advanced care planning/counseling discussion (Acute) Altered mental status (Acute) Acute UTI (Acute) Medical History (Updated 06/09/24 @ 17:08 by Guanako Chakraborty MD) Foot pain Parkinson disease Cirrhosis of liver Palliative care encounter Dysosmia Social anxiety disorder Cervical spondylosis HTN (hypertension) Transient global amnesia Long-term use of high-risk medication Shoulder pain, right Psoriasis Ulnar neuropathy Action tremor Dizziness Muscle spasm Left leg weakness Vitreous degeneration, bilateral Cataract, bilateral Other specified disorders of bone density and structure, other site Osteoporosis Unsteadiness on feet Hand paresthesia Left-sided chest pain Hx of head injury Lumbar spondylitis Spinal stenosis UTI (urinary tract infection) Aortic insufficiency SOB (shortness of breath) Frequent falls Anemia Closed head injury Abnormal laboratory test SCC (squamous cell carcinoma) Neuropathy Vulvar lesion Tremor Anxiety Thyroid disease Sore throat Cervicalgia Premature menopause Generalized anxiety disorder Bursitis Osteopenia Candidiasis of vulva and vagina Chronic idiopathic thrombocytopenia 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 states she has seizure 3 years ago Cough Ulnar neuropathy at elbow Knee pain, left Chronic periodontitis History of anemia Balance problem uses cane Vaginal adhesion Hypomagnesemia Urinary frequency Hemorrhoids Decreased strength Hypothyroidism Hyperlipidemia Diabetes mellitus Diabetic neuropathy Spinal stenosis in cervical region Rheumatoid arthritis Essential hypertension Surgical History History of tubal ligation H/O endoscopy H/O cystoscopy Hx of cataract surgery S/P appendectomy S/P tubal ligation S/P cervical discectomy Family History Brother Parkinson disease Sister Multiple sclerosis Mother Heart disease Brother Heart disease Other Diabetes Social History Smoking/Tobacco Use Status: Never Smoking risk assessment performed?: Yes Alcohol Intake: never Drug use: Never Substance use type: does not use Household members: spouse Number of Children: 3 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
[2024-06-09 15:28] LABS: Abs Immature Grans 0.05 10^3/uL (0.0-0.06); Absolute Basophil Count 0.08 10^3/uL (0.0-0.2); Absolute Eosinophil Count 0.45 10^3/uL (0.0-0.7); Absolute Lymphocyte Count 1.71 10^3/uL (1.2-3.4); Absolute Monocyte Count 0.59 10^3/uL (0.1-0.8); Absolute Neutrophil Count 5.43 10^3/uL (1.2-6.7); Eosinophils % 5.4 %; HCT 41.6 % (36.0-46.0); HGB 14.6 g/dL (11.2-15.7); Immature Grans % 0.6 %; Lymphocytes % 20.6 %; MCH 33.6 pg (27.0-33.0); MCHC 35.1 % (32.0-36.0); MCV 96 fL (80-95); MPV 10.1 fL (8.0-11.0); Monocytes % 7.1 %; Neutrophils % 65.3 %; RBC 4.34 10^6/uL (3.93-5.22); RDW 13.2 % (11.7-14.6); RDW-SD 46.8 fL; WBC 8.31 10^3/uL (4.4-10.8)
[2024-06-09 15:31] VITALS: RESP 18
[2024-06-09] MEDS: Normal Saline 250 ML 500 ML IV (15:34)
[2024-06-09 15:40] LABS: INR 1.1 (0.9-1.1); PTT Activated 24.7 sec (20.6-30.2); Prothrombin Time 10.8 sec (9.1-11.1)
--- NOTE | 2024-06-09 15:45 | DI.CT_ITS ---
Exam(s) CT CHEST PE CTA EXAM: CT CHEST PE CTA CLINICAL HISTORY: dyspnea. TECHNIQUE: Imaging Protocol: Axial CT angiography was performed with multi-slice acquisition and mu lti-planar reconstructions as well as axial, coronal and sagittal MIP reconstructions. Computer aided detection (CAD) was utilized. CONTRAST MATERIAL: Intravenous: Omnipaque 350 Contrast volume:60 ml COMPARISON: CT CT CHEST W from 01/06/[address] ABDOMEN PELVIS W from 10/17/2021 FINDINGS: Pulmonary Arteries: Distal basilar branches are suboptimally evaluated due to motion. No evidence of filling defect to suggest pulmonary emboli. Mediastinum and Laila: No dominant adenopathy or fluid collection. Pulmonary parenchyma: Evaluation mildly limited by respiratory motion. No consolidation or dominant measurable mass. Pleura: No effusion or pneumothorax. Heart: The heart is not dilated. No coronary artery calcifications are seen. Aorta: Thoracic aorta non-dilated. No dissection. Upper abdomen: No acute findings. Bones: Degenerative changes. Hemangioma again noted in the T10 vertebral body. Tubes, Catheters, and Lines: None Soft tissues: Unremarkable. IMPRESSION: No evidence of pulmonary embolism or other acute abnormality. RADIATION DOSE DELIVERED: Total DLP DATA REPOSITORY: All CT scans at this facility are submitted to the National Radiology Data Registry (NRDR) Dose Index Registry (DIR) with the [employer] (ACR). RADIATION OPTIMIZATION: All CT scans at this facility use at least one of these dose optimization te chniques: automated exposure control; mA and/or kV adjustment per patient size (includes targeted exa ms where dose is matched to clinical indication); or iterative reconstruction.
[2024-06-09 15:46] LABS: COVID-19 PCR Negative (Negative); Influenza A PCR Negative (Negative); Influenza B PCR Negative (Negative); RSV PCR Negative (Negative)
[2024-06-09 15:47] LABS: Platelet Count 88 10^3/uL (130-400)
[2024-06-09 15:48] LABS: Source Nasopharynx
[2024-06-09 15:49] LABS: ALT 17 U/L (14-59); AST 27 U/L (15-37); Albumin 3.9 g/dL (3.4-5.0); Alkaline Phosphatase 60 U/L (46-116); Anion Gap 11.1 mmol/L (3-11); BUN 14 mg/dL (7-18); Bilirubin, Total 0.9 mg/dL (0.2-1.0); CO2 26.9 mmol/L (21.0-32.0); CREATININE 0.9 mg/dL (0.55-1.02); Calcium 9.7 mg/dL (8.5-10.1); Chloride 100 mmol/L (98-107); Estimated GFR 66.67 (mL/min/1.73m2); Glucose 161 mg/dL (74-106); Magnesium 1.6 mg/dL (1.8-2.4); NT-proBNP 13 pg/mL (<300); Sodium 138 mmol/L (136-145); Troponin I 7 ng/L (<or=51)
[2024-06-09] MEDS: Normal Saline - Diluent 50 ML VIAL IJ (16:07)
[2024-06-09] MEDS: Omnipaque 350 MG/ML 100 ML BTL 60 ML IJ (16:09)
[2024-06-09 16:50] LABS: Troponin I 5 ng/L (<or=51)
[2024-06-09 17:36] VITALS: BP 174/81; PULSE 80; RESP 18; O2SAT 98
== END 2024-06-09 17:37 | disposition home or self-care (01) ==
PROVIDERS: Emergency Provider Emergency Medicine; PCP Family Medicine
DX: R06.02 Shortness of breath (principal); R53.83 Other fatigue; I10 Essential (primary) hypertension; E78.5 Hyperlipidemia, unspecified; E11.9 Type 2 diabetes mellitus without complications; G20.A1 Parkinson's disease without dyskinesia, without mention of fluctuations; Z79.4 Long term (current) use of insulin; Z79.84 Long term (current) use of oral hypoglycemic drugs
CPT/HCPCS: 71275; 80053; 86850; 86900; 86901; 87637; 93005; 99285; 83735; 83880; 84484; 85025; 85610; 85730; 93010; J3490

== ENCOUNTER 2024-06-29 15:12 | Outpatient (REF) | payer MEDICARE, SELFPAY | END 2024-06-29 15:13 | disposition home or self-care (01) | LOC: NCHCN 15:12 | PROVIDERS: PCP Family Medicine; Visit Provider Family Medicine | DX: R35.0 Frequency of micturition (principal); B96.29 Other Escherichia coli [E. coli] as the cause of diseases classified elsewhere; R82.89 Other abnormal findings on cytological and histological examination of urine | CPT/HCPCS: 87077; 87086; 87186 ==

== ENCOUNTER 2024-08-29 13:55 | Outpatient (CLI) | payer MEDICARE, SELFPAY ==
[2024-08-29 13:31] LABS: Abs Immature Grans 0.03 10^3/uL (0.0-0.06); HCT 42.0 % (36.0-46.0); HGB 14.5 g/dL (11.2-15.7); Immature Grans % 0.6 %; MCH 33.4 pg (27.0-33.0); MCHC 34.5 % (32.0-36.0); MCV 97 fL (80-95); MPV 10.3 fL (8.0-11.0); RBC 4.34 10^6/uL (3.93-5.22); RDW 13.2 % (11.7-14.6); RDW-SD 47.7 fL; WBC 5.19 10^3/uL (4.4-10.8)
[2024-08-29 13:43] LABS: Platelet Count 79 10^3/uL (130-400)
[2024-08-29 13:44] LABS: RBC Morphology Normal
[2024-08-29 14:14] LABS: Ferritin 104 ng/mL (8-252)
== END 2024-08-29 13:56 | disposition home or self-care (01) ==
LOC: LBO 13:55
PROVIDERS: PCP Family Medicine; Visit Provider Internal Medicine Hematology & Oncology
DX: D50.9 Iron deficiency anemia, unspecified (principal)
CPT/HCPCS: 36415; 82728; 85025

== ENCOUNTER 2024-09-13 01:14 | Outpatient (CLI) | payer MEDICARE, SELFPAY ==
--- NOTE | 2024-09-13 | DI.US_ITS ---
Exam(s) US ABDOMEN LIMITED EXAM: US ABDOMEN LIMITED CLINICAL HISTORY: HEPATIC CIRRHOSIS ? WHETHER ASCITIES PRESENT K74.60 SCREEN FOR HCC TECHNIQUE: Ultrasound abdomen performed using standard protocol. COMPARISON: US US ABDOMEN LIMITED from 02/21/2024 FINDINGS: PANCREAS: Normal where visualized. LIVER: The liver has a coarsened echotexture. There is a nodular appearance of the liver contour. There is again seen a recanalized umbilical vein. Hepatopetal flow in the Portal Vein. The liver measures in 14.3 cm length. No evidence of a hepatic mass. GALLBLADDER: No evidence of cholelithiasis. No evidence of wall thickening. No pericholecystic fluid identified. BILIARY SYSTEM: Common bile duct measures < 7 mm. No intrahepatic biliary ductal dilation. GRUBER'S SIGN: Negative. RIGHT KIDNEY: Kidney is normal in size. No evidence of renal calculi. No evidence of hydronephrosis. No renal mass or cyst identified. ASCITES: None seen. IMPRESSION: 1. Findings are again seen suggestive of hepatic cirrhosis. 2. No evidence of a hepatic mass sonographically. 3. There is no ascites seen sonographically. DATA REPOSITORY:
== END 2024-09-13 01:34 ==
PROVIDERS: PCP Family Medicine; Visit Provider Nurse Practitioner Adult Health
DX: K74.60 Unspecified cirrhosis of liver (principal)
CPT/HCPCS: 76705

== ENCOUNTER 2024-09-13 02:31 | Outpatient (CLI) | payer MEDICARE, SELFPAY ==
[2024-09-13 08:53] LABS: Abs Immature Grans 0.01 10^3/uL (0.0-0.06); HCT 40.9 % (36.0-46.0); HGB 13.9 g/dL (11.2-15.7); Immature Grans % 0.2 %; MCH 32.5 pg (27.0-33.0); MCHC 34.0 % (32.0-36.0); MCV 96 fL (80-95); MPV 10.2 fL (8.0-11.0); RBC 4.28 10^6/uL (3.93-5.22); RDW 13.2 % (11.7-14.6); RDW-SD 46.5 fL; WBC 4.18 10^3/uL (4.4-10.8)
[2024-09-13 08:58] LABS: INR 1.1 (0.9-1.1); Prothrombin Time 11.0 sec (9.1-11.1)
[2024-09-13 09:33] LABS: Platelet Count 71 10^3/uL (130-400); RBC Morphology Normal
[2024-09-13 09:50] LABS: ALT 12 U/L (14-59); AST 24 U/L (15-37); Albumin 3.8 g/dL (3.4-5.0); Alkaline Phosphatase 57 U/L (46-116); Anion Gap 8.2 mmol/L (3-11); BUN 11 mg/dL (7-18); Bilirubin, Total 0.9 mg/dL (0.2-1.0); CO2 29.8 mmol/L (21.0-32.0); Calcium 9.5 mg/dL (8.5-10.1); Chloride 105 mmol/L (98-107); Estimated GFR 90.14 (mL/min/1.73m2); Glucose 101 mg/dL (74-106); Potassium 3.8 mmol/L (3.5-5.1); Sodium 143 mmol/L (136-145); Total Protein 7.9 g/dL (6.4-8.2)
== END 2024-09-13 02:32 | disposition home or self-care (01) ==
LOC: LBO 02:31
PROVIDERS: PCP Family Medicine; Visit Provider Nurse Practitioner Adult Health
DX: K74.60 Unspecified cirrhosis of liver (principal)
CPT/HCPCS: 36415; 80053; 76705; 85025; 85610

== ENCOUNTER 2024-10-13 18:55 | Outpatient (CLI) | payer MEDICARE, SELFPAY ==
--- NOTE | 2024-10-13 15:40 | DI.RAD_ITS ---
Exam(s) XR ABDOMEN FLAT PLATE EXAM: 2D digital imaging was performed. CLINICAL HISTORY: CONSTIPATION K59.09. COMPARISON: CT CT CHEST PE CTA from 06/09/2024 TECHNIQUE: Supine views of the abdomen performed. FINDINGS: BOWEL GAS PATTERN: The stomach and small bowel are nondistended. There is stool noted throughout the colon but no significant abnormal distension. CALCIFICATIONS: No radiopaque calcifications. OSSEOUS STRUCTURES: Unremarkable for age. Visualized lung bases: Clear. IMPRESSION: 1. Nonobstructive bowel gas pattern. 2. Stool throughout the colon, consistent with constipation. DATA REPOSITORY: RADIATION DOSE DELIVERED:
== END 2024-10-13 19:15 ==
LOC: DI 18:56
PROVIDERS: PCP Family Medicine; Visit Provider Family Medicine
DX: K59.09 Other constipation (principal)
CPT/HCPCS: 74018

== ENCOUNTER 2024-12-18 03:11 | Outpatient (CLI) | payer MEDICARE, SELFPAY ==
[2024-12-18 13:27] LABS: Abs Immature Grans 0.02 10^3/uL (0.0-0.06); HCT 38.4 % (36.0-46.0); HGB 13.0 g/dL (11.2-15.7); Immature Grans % 0.3 %; MCH 32.6 pg (27.0-33.0); MCHC 33.9 % (32.0-36.0); MCV 96 fL (80-95); MPV 9.7 fL (8.0-11.0); RBC 3.99 10^6/uL (3.93-5.22); RDW 13.7 % (11.7-14.6); RDW-SD 48.9 fL; WBC 5.77 10^3/uL (4.4-10.8)
[2024-12-18 13:29] LABS: INR 1.1 (0.9-1.1); Prothrombin Time 10.7 sec (9.1-11.1)
[2024-12-18 13:39] LABS: Platelet Count 89 10^3/uL (130-400); RBC Morphology Normal
[2024-12-18 14:04] LABS: ALT 8 U/L (14-59); AST 17 U/L (15-37); Albumin 3.7 g/dL (3.4-5.0); Alkaline Phosphatase 64 U/L (46-116); Anion Gap 11.4 mmol/L (3-11); BUN 12 mg/dL (7-18); Bilirubin, Total 0.7 mg/dL (0.2-1.0); CO2 26.6 mmol/L (21.0-32.0); Calcium 9.1 mg/dL (8.5-10.1); Chloride 103 mmol/L (98-107); Estimated GFR 76.79 (mL/min/1.73m2); Glucose 131 mg/dL (74-106); Potassium 3.6 mmol/L (3.5-5.1); Sodium 141 mmol/L (136-145); Total Protein 8.0 g/dL (6.4-8.2)
[2024-12-20 11:30] LABS: Ferritin 100 ng/mL (8-252)
== END 2024-12-18 03:12 | disposition home or self-care (01) ==
PROVIDERS: Nurse Practitioner Family; PCP Family Medicine; Visit Provider Nurse Practitioner Adult Health
DX: K74.60 Unspecified cirrhosis of liver (principal); D50.9 Iron deficiency anemia, unspecified
CPT/HCPCS: 36415; 80053; 82105; 82728; 85025; 85610